=== PATIENT | male | born 1960 | race African-American/Black ===

== ENCOUNTER 2020-04-23 08:42 | Outpatient (REF) | payer MEDICAID, SELFPAY | END 2020-04-23 08:43 | disposition home or self-care (01) | LOC: HO.SH 08:42 | PROVIDERS: PCP Family Medicine; Referring Provider Family Medicine; Visit Provider Family Medicine | DX: Z13.89 Encounter for screening for other disorder (principal) ==

== ENCOUNTER 2020-07-01 10:00 | Outpatient (RCR) | payer MEDICAID, SELFPAY | END 2020-08-08 11:23 | disposition other institution (70) | LOC: HO.SH 10:00 | PROVIDERS: Visit Provider Family Medicine | DX: F80.81 Childhood onset fluency disorder (principal) | CPT/HCPCS: 92523 ==

== ENCOUNTER 2020-07-21 09:42 | Outpatient (REF) | payer MEDICAID, SELFPAY | END 2020-07-21 09:43 | disposition home or self-care (01) | LOC: HO.LAB 09:42 | PROVIDERS: PCP Family Medicine; Visit Provider Internal Medicine | DX: Z20.822 Contact with and (suspected) exposure to COVID-19 (principal) | CPT/HCPCS: 36415; 83013; C9803; U0003; U0005 ==

== ENCOUNTER 2020-12-09 11:03 | Outpatient (REF) | payer MEDICAID, SELFPAY ==
--- NOTE | ~2020-12-09 | XR_ITS ---
EXAMINATION: XR LUMBOSACRAL SPINE CLINICAL INFORMATION: Lower back pain. COMPARISON: CT abdomen/pelvis dated 01/02/2017. TECHNIQUE: Three views of the lumbosacral spine. FINDINGS: Normal vertebral body alignment. The lumbar lordosis is maintained. No acute fracture or subluxation. Minimal loss of intervertebral disc height with tiny endplate osteophytes at L4-S1 as well as bilateral facet arthropathy at L4-L5 and L5-S1, slightly progressed when compared to the prior CT. No lytic or blastic osseous lesion. Atherosclerotic calcifications. XR/XR lumbar spine 2-3V IMPRESSION: Mild degenerative disc disease at L2-S1 and bilateral facet arthropathy at L4-S1, slightly progressed when compared to the CT from 2017.
== END 2020-12-09 11:04 | disposition home or self-care (01) ==
LOC: HO.XRAY 11:03
PROVIDERS: PCP Family Medicine; Visit Provider Family Medicine
DX: M54.5 Low back pain (principal)
CPT/HCPCS: 72100

== ENCOUNTER 2021-04-14 11:45 | Outpatient (REF) | payer MEDICAID, SELFPAY | END 2021-04-14 11:46 | disposition home or self-care (01) | LOC: HO.LAB 11:45 | PROVIDERS: PCP Family Medicine; Visit Provider Internal Medicine | DX: Z20.822 Contact with and (suspected) exposure to COVID-19 (principal) | CPT/HCPCS: C9803; U0003; U0005 ==

== ENCOUNTER 2021-05-15 10:24 | Outpatient (REF) | payer MEDICAID, SELFPAY | END 2021-05-15 10:25 | disposition home or self-care (01) | LOC: HO.LAB 10:24 | PROVIDERS: Visit Provider Internal Medicine | DX: Z20.822 Contact with and (suspected) exposure to COVID-19 (principal) | CPT/HCPCS: C9803; U0003; U0005 ==

== ENCOUNTER 2021-07-30 11:48 | Outpatient (REF) | payer MEDICAID, SELFPAY ==
[2021-07-30 12:05] LABS: MANUAL DIFF FLAG NO
[2021-07-30 12:33] LABS: Appearance Urine CLEAR; Color Urine YELLOW; Glucose Urine UA 250 MG/DL (NEG); Leukocyte Esterase Urine NEG (NEG); Nitrite Urine NEG (NEG); PH 5.5 (5.0-8.0); Urine Blood 1+ (NEG); Urine Ketones NEG (NEG); Urine Protein 3+ MG/DL (NEG-TRACE)
[2021-07-30 12:38] LABS: Basophils Percent Auto 0.4 % (0-2); Eosinophils Absolute Auto 0.2 X10*3/uL (0.0-0.4); Eosinophils Percent Auto 2.4 % (0-4); Hematocrit 31.6 % (42.0-52.0); Hemoglobin 10.9 g/dl (14.0-18.0); Imm Gran Abs Auto 0.03 X10*3/uL (0.00-0.03); Imm Gran Pct Auto 0.4 % (0.0-0.4); Lymphocytes Absolute Auto 1.7 X10*3/uL (1.2-4.9); Mean Corpuscular HGB Conc 34.5 g/dl (31.0-36.0); Mean Corpuscular Hemoglobin 31.4 pg (27.0-33.0); Mean Corpuscular Volume 91.1 fL (80.0-98.0); Mean Platelet Volume 11.2 fL (9.4-12.4); Monocytes Absolute Auto 0.5 X10*3/uL (0.1-1.2); Monocytes Percent Auto 7.5 % (2-11); Neutrophils Absolute Auto 4.6 x10*3/uL (2.0-8.3); Neutrophils Percent Auto 65.3 % (45-73); Platelet Count 193 X10*3/uL (160-400); Red Blood Count 3.47 X10*6/uL (4.60-5.80); Red Cell Distribution Width 12.7 % (11.0-16.0)
[2021-07-30 12:50] LABS: Estimated Average Glucose 169 mg/dL; Hemoglobin A1c % 7.5 %
[2021-07-30 12:58] LABS: Amorphous Sediment Urine 2+ /LPF; Squamous Epithelial Cell Urine 1+ /LPF
[2021-07-30 13:00] LABS: Anion Gap 11 (12-20); Blood Urea Nitrogen 22 mg/dL (9-16); Calcium 8.8 mg/dL (8.4-10.2); Carbon Dioxide 23 mmol/L (22-29); Chloride 109 mmol/L (96-108); Estimated Glomerular Filt Rate 27; Iron 88 mcg/dL (45-160); Percent Iron Saturation 30 % (15-50); Potassium 3.9 mmol/L (3.3-5.1); Sodium 139 mmol/L (135-145); Total Iron Binding Capacity 289 mcg/dL (228-428); Unsaturated Iron Binding 201 ug/dL
[2021-07-30 13:16] LABS: Creatinine Urine 89.88 mg/dL
[2021-07-30 14:03] LABS: Protein/Creatinine Ratio, Ur 7.91 (<0.2); Total Protein Urine Random 711 mg/dL (<12)
[2021-07-31 13:51] LABS: Calcium (PTHI) 8.8 mg/dL (8.6-10.3); PTHI 45 pg/mL (14-64)
== END 2021-07-30 11:49 | disposition home or self-care (01) ==
LOC: HO.LAB 11:48
PROVIDERS: PCP Family Medicine; Visit Provider Internal Medicine Nephrology
DX: E11.22 Type 2 diabetes mellitus with diabetic chronic kidney disease (principal); N18.31 Chronic kidney disease, stage 3a
CPT/HCPCS: 36415; 80051; 81001; 82306; 82310; 82565; 83036; 83540; 83970; 84156; 84520; 85025

== ENCOUNTER 2021-09-01 00:59 | Emergency (ER) | payer MEDICAID, SELFPAY ==
[2021-09-01 02:26] VITALS: BP 119/81; PULSE 75; RESP 18; TEMP 36.6; O2SAT 100; BMI 33.6
== END 2021-09-01 02:37 | disposition left against medical advice (07) ==
PROVIDERS: Emergency Provider Emergency Medicine
DX: R07.9 Chest pain, unspecified (principal)
CPT/HCPCS: 99281; 99282

== ENCOUNTER 2021-09-01 13:54 | Emergency (ER) | payer MEDICAID, SELFPAY ==
--- NOTE | ~2021-09-01 | XR_ITS ---
EXAMINATION: XR CHEST CLINICAL INFORMATION: Chest pain COMPARISON: Chest 07/24/2015 TECHNIQUE: 2 views of the chest were obtained. FINDINGS: The lungs are well-expanded and clear acute pneumonic process. The heart size and pulmonary vascularity is normal. There is mild spondylosis dorsal spine. XR/XR chest 2V IMPRESSION: No acute cardiopulmonary process seen.
--- NOTE | ~2021-09-01 | CT_ITS ---
EXAMINATION: CT ABDOMEN AND PELVIS WITHOUT CONTRAST CLINICAL INFORMATION: 60-year-old male with epigastric pain COMPARISON: CT abdomen pelvis 07/07/2016 TECHNIQUE: Multidetector volumetric imaging was performed from the superior aspect of the liver through the pubic symphysis. Sagittal and coronal reformatted images were obtained on the technologist's workstation. This CT examination was performed using dose optimization techniques as appropriate, variously including the following: *Automated exposure control *Adjustment of mA and/or kV according to patient size (this includes techniques or standardized protocols for targeted exams where dose is matched to indication/reason for exam; i.e. extremities or head) *Use of iterative reconstruction technique DLP: 651 mGy-cm FINDINGS: Visualized lung bases are well aerated. Coronary artery calcifications are partially visualized. The liver is enlarged and demonstrates diffusely decreased attenuation. Numerous gallstones are present within an otherwise unremarkable appearing gallbladder. Similar mild prominence of the pancreatic head without focal mass. The spleen remains mildly enlarged measuring 14.5 cm in maximum AP dimension. Adrenal glands are unremarkable. Symmetrically sized kidneys. Interval development of a heterogeneous but overall hypodense lesion within the lower pole of the right kidney which measures approximately 5.8 cm (best appreciated on coronal image 55/1 5, series 3). No renal calculi or hydronephrosis of either kidney. There is prominent bilateral perinephric stranding again noted. The stomach is decompressed. Normal caliber loops of small and large bowel. Normal caliber abdominal aorta which demonstrates mild to moderate atherosclerotic disease. A few similar appearing mildly prominent retroperitoneal lymph nodes are again identified and appear stable. The bladder is normally distended. There is mild diffuse bladder wall thickening. The prostate gland is enlarged measuring approximately 5.9 cm in maximum transverse dimension. Moderate sized fat-containing inguinal hernias noted bilaterally. There is no gross free pelvic fluid. Similar shotty bilateral inguinal lymph nodes. Mild degenerative changes of the spine. A few subcentimeter sclerotic foci throughout the pelvis appear stable and likely represent bone islands. CT/CT abdomen pelvis wo con IMPRESSION: 1. Interval development of an approximately 5.8 cm heterogeneous lesion within the lower pole of the right kidney. Renal ultrasound may provide additional diagnostic information, however, ultimately renal protocol MRI may be required for more definitive characterization. Neoplasm is within the differential. 2. Cholelithiasis. 3. Hepatomegaly with diffusely decreased attenuation of the liver suggesting hepatic steatosis. 4. Splenomegaly. 5. Mild diffuse bladder wall thickening in this setting of enlarged prostate gland suggests bladder outlet obstruction. Fleischner guidelines were followed.
[2021-09-01 14:13] VITALS: BP 152/78; PULSE 69; RESP 18; TEMP 37.1; O2SAT 99; BMI 33.6
--- NOTE | 2021-09-01 14:17 | ECG_ITS ---
Test Reason : chest pain Blood Pressure : / mmHG Vent. Rate : 069 BPM Atrial Rate : 069 BPM P-R Int : 214 ms QRS Dur : 092 ms QT Int : 404 ms P-R-T Axes : 032 039 089 degrees QTc Int : 432 ms Sinus rhythm with 1st degree A-V block Otherwise normal ECG When compared with ECG of 11-OCT-2016 12:57, CT interval has increased T wave inversion now evident in Lateral leads Referred By: Generic ED Physician Electronically Signed By:YENY BERMUDEZ MD
[2021-09-01 14:41] LABS: MANUAL DIFF FLAG NO
[2021-09-01 14:42] LABS: Basophils Percent Auto 0.4 % (0-2); Eosinophils Absolute Auto 0.2 X10*3/uL (0.0-0.4); Eosinophils Percent Auto 2.4 % (0-4); Hematocrit 31.7 % (42.0-52.0); Hemoglobin 10.7 g/dl (14.0-18.0); Imm Gran Abs Auto 0.02 X10*3/uL (0.00-0.03); Imm Gran Pct Auto 0.3 % (0.0-0.4); Lymphocytes Absolute Auto 1.2 X10*3/uL (1.2-4.9); Lymphocytes Percent Auto 15.6 % (20-40); Mean Corpuscular HGB Conc 33.8 g/dl (31.0-36.0); Mean Corpuscular Hemoglobin 30.9 pg (27.0-33.0); Mean Corpuscular Volume 91.6 fL (80.0-98.0); Mean Platelet Volume 10.8 fL (9.4-12.4); Monocytes Absolute Auto 0.7 X10*3/uL (0.1-1.2); Neutrophils Absolute Auto 5.5 x10*3/uL (2.0-8.3); Neutrophils Percent Auto 72.3 % (45-73); Platelet Count 163 X10*3/uL (160-400); Red Blood Count 3.46 X10*6/uL (4.60-5.80); Red Cell Distribution Width 13.1 % (11.0-16.0); White Blood Count 7.6 X10*3/uL (4.8-10.8)
[2021-09-01 15:03] LABS: Alanine Aminotransferase 17 U/L (0-40); Albumin Level 3.2 g/dL (3.5-5.0); Alkaline Phosphatase 60 U/L (39-117); Anion Gap 11 (12-20); Aspartate Amino Transferase 15 U/L (5-37); Bilirubin Total 0.5 mg/dL (0.0-1.0); Blood Urea Nitrogen 21 mg/dL (9-16); Calcium 8.7 mg/dL (8.4-10.2); Carbon Dioxide 26 mmol/L (22-29); Chloride 107 mmol/L (96-108); Creatinine Clr Calc Pharmacy 29.2; Estimated Glomerular Filt Rate 24; Glucose Random 255 mg/dL (60-115); Potassium 4.5 mmol/L (3.3-5.1); Sodium 139 mmol/L (135-145); Total Protein 5.9 g/dL (6.5-8.0)
--- NOTE | 2021-09-01 16:34 | ED.CHESTPAIN ---
HPI - Chest Pain General Chief Complaint: Chest Pain Stated Complaint: diff. breathing/chest pains Time Seen by Provider: 09/01/21 16:34 Source: patient Mode of arrival: ambulatory Limitations: no limitations History of Present Illness HPI narrative: 60 years old male with history of chronic renal disease, hypertension, diabetes, remote history of sternal fracture no history of GERD or coronary disease complaining of pain in the epigastric area for last 3 days no relation with the food no left-sided chest pain no radiation of the pain to the back no shortness of breath no cough patient does not feel hungry Related Data Allergies Allergy/AdvReac Type Severity Reaction Status Date / Time No Known Allergies Allergy Verified 09/01/21 14:13 Review of Systems Review of Systems: Yes all other systems are reviewed and are negative [facility]LY [facility] Social History Social History Alcohol intake: current Alcohol intake frequency: 3 or more drinks per day Alcohol type: beer Patient Tobacco Use Status: Never used Tobacco Use of substances other than those prescribed or required for medical reasons: No Advance Directives: No Advance Directives Information Provided: No Physical Exam Vital Signs: Vital Signs: Last Vital Signs Temp 98.8 F 09/01/21 14:13 Pulse 65 09/01/21 17:16 Resp 18 09/01/21 17:16 BP 139/67 09/01/21 17:16 Pulse Ox 99 09/01/21 17:16 BMI result Body Mass Index 33.6 Appearance: Alert. Oriented X3. No acute distress. Eyes: No pallor or icterus ENT: Pharynx normal. Oral Mucosa moist Neck: Normal inspection. Neck supple. CVS: Normal heart rate and rhythm. Pulses normal. Respiratory: No respiratory distress. Equal air entry bilateral, no wheezing/rales/rhonchi Abdomen: Soft , tenderness in epigastric area no rebound tenderness or guarding Bowel sounds are present, no mass palpable, no CVA tenderness Skin: Skin warm and dry. Normal skin color. Normal skin turgor. Extremities: No lower extremity edema. No calf tenderness Neuro: Oriented X 3. No motor deficit. MDM - Chest Pain MDM Narrative Medical decision making narrative: Patient nonspecific epigastric pain slightly elevated lipase CT scan negative for any inflammation of the pancreas patient denies any nausea or vomiting also patient has gallstones and a mass was seen 5.8 cm and right kidney patient advised to follow-up with PCP for further evaluation Lab Data Attestation: I reviewed the patient's lab results. Result diagrams: 09/01/21 14:35 09/01/21 14:35 Labs: Lab Results 09/01/21 09/01/21 09/01/21 Range/Units 14:35 14:35 14:35 WBC 7.6 (4.8-10.8) X10*3/uL RBC 3.46 L (4.60-5.80) X10*6/uL Hgb 10.7 L (14.0-18.0) g/dl Hct 31.7 L (42.0-52.0) % MCV 91.6 (80.0-98.0) fL MCH 30.9 (27.0-33.0) pg MCHC 33.8 (31.0-36.0) g/dl RDW 13.1 (11.0-16.0) % Plt Count 163 (160-400) X10*3/uL MPV 10.8 (9.4-12.4) fL Immature Gran % (Auto) 0.3 (0.0-0.4) % Neut % (Auto) 72.3 (45-73) % Lymph % (Auto) 15.6 L (20-40) % [place] % (Auto) 9.0 (2-11) % Eos % (Auto) 2.4 (0-4) % Baso % (Auto) 0.4 (0-2) % Lymph # (Auto) 1.2 (1.2-4.9) X10*3/uL [place] # (Auto) 0.7 (0.1-1.2) X10*3/uL Eos # (Auto) 0.2 (0.0-0.4) X10*3/uL Baso # (Auto) 0.0 (0.0-0.2) X10*3/uL Abs Immat Gran (auto) 0.02 (0.00-0.03) X10*3/uL Absolute Neuts (auto) 5.5 (2.0-8.3) x10*3/uL Absolute Nucleated RBC 0.000 (0.0-0.012) X10*3/uL Nucleated RBC % (auto) 0.0 (0.0-0.2) /100WBC Sodium 139 (135-145) mmol/L Potassium 4.5 (3.3-5.1) mmol/L Chloride 107 (96-108) mmol/L Carbon Dioxide 26 (22-29) mmol/L Anion Gap 11 L (12-20) BUN 21 H (9-16) mg/dL Creatinine 2.76 H (0.5-1.4) mg/dL Estim Creat Clear Calc 29.2 Estimated GFR 24 POC Glucose (60-115) mg/dL Random Glucose 255 H (60-115) mg/dL Calcium 8.7 (8.4-10.2) mg/dL Total Bilirubin 0.5 (0.0-1.0) mg/dL AST 15 (5-37) U/L ALT 17 (0-40) U/L Alkaline Phosphatase 60 (39-117) U/L Troponin I High Sens 11.0 (<3.5-35.0) ng/L Total Protein 5.9 L (6.5-8.0) g/dL Albumin 3.2 L (3.5-5.0) g/dL Lipase 79 H (8-78) U/L 09/01/21 Range/Units 17:29 WBC (4.8-10.8) X10*3/uL RBC (4.60-5.80) X10*6/uL Hgb (14.0-18.0) g/dl Hct (42.0-52.0) % MCV (80.0-98.0) fL MCH (27.0-33.0) pg MCHC (31.0-36.0) g/dl RDW (11.0-16.0) % Plt Count (160-400) X10*3/uL MPV (9.4-12.4) fL Immature Gran % (Auto) (0.0-0.4) % Neut % (Auto) (45-73) % Lymph % (Auto) (20-40) % [place] % (Auto) (2-11) % Eos % (Auto) (0-4) % Baso % (Auto) (0-2) % Lymph # (Auto) (1.2-4.9) X10*3/uL [place] # (Auto) (0.1-1.2) X10*3/uL Eos # (Auto) (0.0-0.4) X10*3/uL Baso # (Auto) (0.0-0.2) X10*3/uL Abs Immat Gran (auto) (0.00-0.03) X10*3/uL Absolute Neuts (auto) (2.0-8.3) x10*3/uL Absolute Nucleated RBC (0.0-0.012) X10*3/uL Nucleated RBC % (auto) (0.0-0.2) /100WBC Sodium (135-145) mmol/L Potassium (3.3-5.1) mmol/L Chloride (96-108) mmol/L Carbon Dioxide (22-29) mmol/L Anion Gap (12-20) BUN (9-16) mg/dL Creatinine (0.5-1.4) mg/dL Estim Creat Clear Calc Estimated GFR POC Glucose 324 H (60-115) mg/dL Random Glucose (60-115) mg/dL Calcium (8.4-10.2) mg/dL Total Bilirubin (0.0-1.0) mg/dL AST (5-37) U/L ALT (0-40) U/L Alkaline Phosphatase (39-117) U/L Troponin I High Sens (<3.5-35.0) ng/L Total Protein (6.5-8.0) g/dL Albumin (3.5-5.0) g/dL Lipase (8-78) U/L ECG Data ECG #1: Attestation: I personally reviewed and interpreted this ECG as follows: Interpretation: Normal sinus rhythm heart rate 69 beats per minute normal interval normal axis no acute ST T wave acute ischemia Discharge Plan Discharge Clinical Impression: Abdominal pain Patient Disposition: Home, Self-Care Instructions: Abdominal Pain (ED) Additional Instructions: Etiology of your pain is not very clear you have gallstones and a mass in the right kidney possible mild pancreatitis Drink plenty of fluids avoid fried food Increased dose of Prilosec to 40 mg daily Follow-up with PCP for further evaluation including evaluation for the mass on the right kidney Interventions: ED Discharge Assessment Last Done: 09/01/21 18:50 Discharge Date/Time: 09/01/21 18:55
[2021-09-01 17:04] LABS: Lipase 79 U/L (8-78)
[2021-09-01 17:16] VITALS: BP 139/67; PULSE 65; RESP 18; O2SAT 99
--- NOTE | 2021-09-01 17:18 | PC.NURSE ---
patient a&ox3, evaluation specialist nsr 60s-70s, vss, pt c/o 03/08 mid abd pain, pt awaiting ct scan, labs previously drawn, call pang within reach, will continue to monitor.
[2021-09-01 17:32] LABS: Glucose, Whole Blood 324 mg/dL (60-115)
[2021-09-01] MEDS: Insulin Lispro 100 UNIT/ML 3 ML VIAL 8 UNIT SUBCUT (18:51)
[2021-09-01] MEDS: Omeprazole 40 MG CAPSULE.DR PO (18:51)
[2021-09-01] MEDS: Magnesium Hydrox/Alum Hydrox 30 ML ORAL.SUSP PO (18:51)
== END 2021-09-01 18:55 | disposition home or self-care (01) ==
PROVIDERS: Emergency Provider Internal Medicine; PCP Family Medicine
DX: R10.13 Epigastric pain (principal); R93.5 Abnormal findings on diagnostic imaging of other abdominal regions, including retroperitoneum; I10 Essential (primary) hypertension; E11.9 Type 2 diabetes mellitus without complications
CPT/HCPCS: 36415; 71046; 74176; 80053; 82947; 83690; 84484; 85025; 93005; 99284

== ENCOUNTER 2021-11-24 23:35 | Inpatient (IN) | payer MEDICAID, SELFPAY ==
--- NOTE | ~2021-11-24 | US_ITS ---
EXAMINATION: US RETROPERITONEAL LIMITED (RENAL ONLY) CLINICAL INFORMATION: Acute renal insufficiency. COMPARISON: 09/01/2021 CT scan TECHNIQUE: Multiple sonographic views of the left kidney obtained. FINDINGS: RIGHT KIDNEY: Surgically absent. LEFT KIDNEY: 14.2 x 6.0 x 6.1 cm (SAG x AP x TRV). The kidney is normal in size, contour, and echogenicity. Renal cortical thickness is normal. No calculi or focal parenchymal lesions. There is mild left-sided hydronephrosis. A left-sided ureteric jet is seen in the otherwise unremarkable bladder. Small amount of ascites seen in the right upper quadrant. US/US renal BI IMPRESSION: Right kidney surgically absent. Mild left-sided hydronephrosis of uncertain etiology with a left ureteric jet seen in the visualized bladder.
--- NOTE | ~2021-11-24 | XR_ITS ---
EXAMINATION: XR CHEST CLINICAL INFORMATION: SOB COMPARISON: None TECHNIQUE: 2 views of the chest were obtained. FINDINGS: The lungs are well-expanded with platelike atelectasis in the lingula. Rest lungs are clear. Heart size and pulmonary vascularity is normal. There is moderate spondylosis dorsal spine. No lytic process. XR/XR chest 2V IMPRESSION: Platelike atelectasis in the lingula.
--- NOTE | ~2021-11-24 | NM_ITS ---
EXAMINATION: NM LUNG IMAGE PERFUSION CLINICAL INFORMATION: Elevated d-dimer. Chest pain and SOB COMPARISON: None TECHNIQUE: 4 mCi of 99m Tc MAA was administered intravenously and imaging of both lungs were obtained in multiple projections.. Ventilation study was not performed FINDINGS: There is normal perfusion seen to all segments of the lungs without focal defect segmental or subsegmental defect. Ventilation study was not performed. NM/NM pul perfusion IMPRESSION: Normal perfusion scan. No suspicion for pulmonary emboli.
[2021-11-24 23:42] VITALS: BP 154/76; PULSE 77; O2SAT 97
[2021-11-24 23:45] VITALS: BP 146/70; PULSE 72; RESP 18; TEMP 37; O2SAT 96; BMI 32.3
--- NOTE | 2021-11-24 23:57 | ED_ITS ---
HPI - Chest Pain General Chief Complaint: Chest Pain Stated Complaint: CP Time Seen by Provider: 11/24/21 23:57 Source: patient Mode of arrival: EMS Limitations: no limitations History of Present Illness HPI narrative: patient had chest pain while watching TV. patient has a history of cancer of the kidney. Patient states since having surgery to remove the kidney he has suffered everyday from chest pain. patient improved with ASA and NTG in the ambulace. MD complaint: chest pain Onset (ago): month(s) Timing of current episode: constant Prior episodes: Yes Onset: during rest Pain radiation: none Severity: mild Quality: aching Relieving factors: nothing Treatment prior to arrival: aspirin and nitroglycerin Related Data Home Medications Medication Instructions Recorded Confirmed albuterol sulfate 90 mcg/actuation 2 puff PO Q4-6H PRN Shortness Of 11/25/21 11/25/21 aerosol inhaler (ProAir HFA) Breath alcohol swabs (Alcohol Prep Pads) 1 pad topical TID 11/25/21 11/25/21 aspirin 25 mg-dipyridamole 200 mg 1 cap PO BID 11/25/21 11/25/21 capsule,ext.release 12 hr multiphase blood sugar diagnostic (FreeStyle 11/25/21 11/25/21 Lite Strips) carvedilol 12.5 mg tablet 1 tab PO DAILY 11/25/21 11/25/21 clonazepam 1 mg tablet 1 tab PO BID 11/25/21 11/25/21 clotrimazole 1 % topical cream 1 appl topical BID 11/25/21 11/25/21 cyanocobalamin (vitamin B-12) 1 tab PO QAM 11/25/21 11/25/21 1,000 mcg tablet diclofenac sodium 1 % topical gel 2 g topical BID PRN pain 11/25/21 11/25/21 diltiazem HCl 300 mg 1 cap PO QAM 11/25/21 11/25/21 capsule,extended release 24 hr (Cartia XT) ergocalciferol (vitamin D2) 1,250 1 cap PO QWEEK 11/25/21 11/25/21 mcg (50,000 unit) capsule ferrous fumarate 324 mg (106 mg 1 tab PO DAILY 11/25/21 11/25/21 iron) tablet furosemide 40 mg tablet 1 tab PO QAM 11/25/21 11/25/21 glipizide 10 mg tablet 1 tab PO BID 11/25/21 11/25/21 hydralazine 25 mg tablet 3 tab PO TID 11/25/21 11/25/21 insulin glargine 100 unit/mL (3 15 unit subcut DAILY 11/25/21 11/25/21 mL) subcutaneous pen (Lantus Solostar U-100 Insulin) ipratropium bromide 21 mcg (0.03 2 spray intranasal TID 11/25/21 11/25/21 %) nasal spray levothyroxine 112 mcg tablet 1 tab PO QAM 11/25/21 11/25/21 lisinopril 40 mg tablet 1 tab PO QPM 11/25/21 11/25/21 omega-3 acid ethyl esters 1 gram 2 cap PO BID 11/25/21 11/25/21 capsule omeprazole 40 mg capsule,delayed 1 cap PO BID 11/25/21 11/25/21 release oxycodone-acetaminophen 10 mg-325 1 tab PO Q4H PRN severe pain 11/25/21 11/25/21 mg tablet pen needle, diabetic 32 gauge x 11/25/21 11/25/21 5/32 (Pentips) rosuvastatin 10 mg tablet 1 tab PO BEDTIME 11/25/21 11/25/21 sodium bicarbonate 650 mg tablet 2 tab PO BID 11/25/21 11/25/21 sodium zirconium cyclosilicate 5 1 packet PO DAILY 11/25/21 11/25/21 gram oral powder packet (Lokelma) tamsulosin 0.4 mg capsule 1 cap PO QPM 11/25/21 11/25/21 zolpidem 10 mg tablet 1 tab PO BEDTIME 11/25/21 11/25/21 Allergies Allergy/AdvReac Type Severity Reaction Status Date / Time No Known Allergies Allergy Verified 09/01/21 14:13 Review of Systems Constitutional: Constitutional: Reports no additional constitutional complaints Eyes: Eyes: Reports no additional eye complaints ENT: Denies dizziness Cardiovascular: Cardiovascular: Reports no additional cardiovascular complaints Respiratory: Respiratory: Reports as per HPI Gastrointestinal: Gastrointestinal: Reports no additional gastrointestinal complaints Musculoskeletal: Musculoskeletal: Reports no additional musculoskeletal complaints Integumentary/Breasts: Skin/Breast: Denies rash Neurologic: Reports system reviewed and no additional complaints, except as documented, Denies dizziness and Denies Sensory deficit (Neuro) Psychiatric: Psychiatric: Denies anxiety [facility] Past Medical History Medical History (Updated 11/25/21 @ 07:12 by Silvia Freitas MD) CAD (coronary artery disease) CKD (chronic kidney disease) CVA (cerebral vascular accident) Diabetes Hypertension Surgical History (Updated 11/25/21 @ 07:11 by Silvia Freitas MD) History of nephrectomy Family History Family History (Updated 11/25/21 @ 07:11 by Silvia Freitas MD) Other No family history of coronary artery disease Social History Social History Alcohol intake: never Patient Tobacco Use Status: Never used Tobacco Use of substances other than those prescribed or required for medical reasons: No Advance Directives: No Advance Directives Information Provided: Yes Physical Exam Vital Signs: Vital Signs: Last Vital Signs Temp 98.6 F 11/24/21 23:45 Pulse 72 11/24/21 23:45 Resp 18 11/24/21 23:45 BP 146/70 H 11/24/21 23:45 Pulse Ox 96 11/24/21 23:45 O2 Del Method 11/24/21 23:45 BMI result Body Mass Index 32.3 Const: Other: chronically ill female Nutritional Appearance: obese O rientation/consciousness: oriented to person and patient oriented x3 Limi tations: no limitations HEENT: Head: Yes normal to inspection Ears: external ears normal General nose exam: Normal external nose present Mouth: Normal oral and palatal mucosa present and oropharynx normal Throat: Yes posterior oropharynx normal Eyes: General: appearance normal, both eyes and all related structures Neck: Other: supple Neck: Yes normal visual inspection Chest: Chest palpation & inspection: normal inspection of the chest Resp: Auscultation: clear to auscultation bilaterally Cardio: Jugular venous distension: no JVD Rate: regular rate Rhythm: regular rhythm Heart sounds: S1 normal heart sound present and S2 normal heart sound present GI: Other: healing abdominal wound Palpation (GI): Soft to palpation, nontender and No hepatosplenomegaly present Auscultation: normal bowel sounds : General: Yes no CVA tenderness Back/Spine/Pelvis: Back: no CVA tenderness Skin: General skin exam: no rashes or lesions noted Neuro: General: oriented to person and patient oriented x3 Cranial nerves: Yes CN's II-XII intact bilaterally Motor exam (neuro): 5/5 motor strength present throughout Sensory Exam: No Sensory deficit (Neuro) Extrem: General: Yes normal to inspection Psych: Appearance: grossly normal Course Reevaluation(s) Reevaluation #1: patient with renal failure, worsening anemia, and a positive ddimer. Despite flipped twaves laterally with ST depressions patients troponins are negative Time: 04:41 MDM - Chest Pain Lab Data Result diagrams: 11/25/21 00:23 11/25/21 00:23 Labs: Lab Results 11/25/21 11/25/21 11/25/21 Range/Units 00:23 00:23 00:23 WBC 9.3 (4.8-10.8) X10*3/uL RBC 2.84 L (4.60-5.80) X10*6/uL Hgb 8.2 L D (14.0-18.0) g/dl Hct 24.7 L D (42.0-52.0) % MCV 87.0 (80.0-98.0) fL MCH 28.9 (27.0-33.0) pg MCHC 33.2 (31.0-36.0) g/dl RDW 12.9 (11.0-16.0) % Plt Count 189 (160-400) X10*3/uL MPV 11.0 (9.4-12.4) fL Immature Gran % (Auto) 0.3 (0.0-0.4) % Neut % (Auto) 72.2 (45-73) % Lymph % (Auto) 15.1 L (20-40) % [place] % (Auto) 10.1 (2-11) % Eos % (Auto) 2.1 (0-4) % Baso % (Auto) 0.2 (0-2) % Lymph # (Auto) 1.4 (1.2-4.9) X10*3/uL [place] # (Auto) 0.9 (0.1-1.2) X10*3/uL Eos # (Auto) 0.2 (0.0-0.4) X10*3/uL Baso # (Auto) 0.0 (0.0-0.2) X10*3/uL Abs Immat Gran (auto) 0.03 (0.00-0.03) X10*3/uL Absolute Neuts (auto) 6.7 (2.0-8.3) x10*3/uL Absolute Nucleated RBC 0.000 (0.0-0.012) X10*3/uL Nucleated RBC % (auto) 0.0 (0.0-0.2) /100WBC D-Dimer High Sensitivty NG/ML Sodium 140 (135-145) mmol/L Potassium 3.9 (3.3-5.1) mmol/L Chloride 110 H (96-108) mmol/L Carbon Dioxide 20 L (22-29) mmol/L Anion Gap 14 (12-20) BUN 59 H D (9-16) mg/dL Creatinine 7.95 H* (0.5-1.4) mg/dL Estim Creat Clear Calc 10.1 Estimated GFR 7 Random Glucose 142 H D (60-115) mg/dL Calcium 8.2 L (8.4-10.2) mg/dL Total Bilirubin 0.3 (0.0-1.0) mg/dL Direct Bilirubin 0.2 (0.0-0.5) mg/dL AST 10 (5-37) U/L ALT 11 (0-40) U/L Alkaline Phosphatase 79 D (39-117) U/L Troponin I High Sens 34.3 D (<3.5-35.0) ng/L Total Protein 5.7 L (6.5-8.0) g/dL Albumin 3.0 L (3.5-5.0) g/dL Lipase 41 (8-78) U/L COVID-19 ([facility]) (Negative) COVID-19 Clin Com 11/25/21 11/25/21 11/25/21 Range/Units 00:24 02:11 05:39 WBC (4.8-10.8) X10*3/uL RBC (4.60-5.80) X10*6/uL Hgb (14.0-18.0) g/dl Hct (42.0-52.0) % MCV (80.0-98.0) fL MCH (27.0-33.0) pg MCHC (31.0-36.0) g/dl RDW (11.0-16.0) % Plt Count (160-400) X10*3/uL MPV (9.4-12.4) fL Immature Gran % (Auto) (0.0-0.4) % Neut % (Auto) (45-73) % Lymph % (Auto) (20-40) % [place] % (Auto) (2-11) % Eos % (Auto) (0-4) % Baso % (Auto) (0-2) % Lymph # (Auto) (1.2-4.9) X10*3/uL [place] # (Auto) (0.1-1.2) X10*3/uL Eos # (Auto) (0.0-0.4) X10*3/uL Baso # (Auto) (0.0-0.2) X10*3/uL Abs Immat Gran (auto) (0.00-0.03) X10*3/uL Absolute Neuts (auto) (2.0-8.3) x10*3/uL Absolute Nucleated RBC (0.0-0.012) X10*3/uL Nucleated RBC % (auto) (0.0-0.2) /100WBC D-Dimer High Sensitivty 749 NG/ML Sodium (135-145) mmol/L Potassium (3.3-5.1) mmol/L Chloride (96-108) mmol/L Carbon Dioxide (22-29) mmol/L Anion Gap (12-20) BUN (9-16) mg/dL Creatinine (0.5-1.4) mg/dL Estim Creat Clear Calc Estimated GFR Random Glucose (60-115) mg/dL Calcium (8.4-10.2) mg/dL Total Bilirubin (0.0-1.0) mg/dL Direct Bilirubin (0.0-0.5) mg/dL AST (5-37) U/L ALT (0-40) U/L Alkaline Phosphatase (39-117) U/L Troponin I High Sens 32.0 (<3.5-35.0) ng/L Total Protein (6.5-8.0) g/dL Albumin (3.5-5.0) g/dL Lipase (8-78) U/L COVID-19 ([facility]) Negative (Negative) COVID-19 Clin Com See Note ECG Data ECG #1: Attestation: I personally reviewed and interpreted this ECG as follows: Interpretation: sinus 70, lateral flipped ts I and AVL and V5-V6 Critical Care Time Critical Care Time Attestation: I spent 40 minutes of critical care, with interventions, assessments, speaking to patient, consultants, and family. Discharge Plan Discharge Clinical Impression: Chest pain, Acute renal failure, Anemia Patient Disposition: Admitted As Inpatient
--- NOTE | 2021-11-25 00:06 | ECG_ITS ---
Test Reason : CHEST PAIN Blood Pressure : / mmHG Vent. Rate : 068 BPM Atrial Rate : 068 BPM P-R Int : 216 ms QRS Dur : 086 ms QT Int : 442 ms P-R-T Axes : 036 037 121 degrees QTc Int : 469 ms Sinus rhythm with 1st degree A-V block Septal infarct , age undetermined ST & T wave abnormality, consider lateral ischemia Abnormal ECG When compared with ECG of 01-SEP-2021 14:22, Septal infarct is now Present T wave inversion more evident in Lateral leads Referred By: Yrn Acuña Electronically Signed By:BAY POSADAS
[2021-11-25 00:33] LABS: Basophils Percent Auto 0.2 % (0-2); Eosinophils Absolute Auto 0.2 X10*3/uL (0.0-0.4); Eosinophils Percent Auto 2.1 % (0-4); Hematocrit 24.7 % (42.0-52.0); Hemoglobin 8.2 g/dl (14.0-18.0); Imm Gran Abs Auto 0.03 X10*3/uL (0.00-0.03); Imm Gran Pct Auto 0.3 % (0.0-0.4); Lymphocytes Absolute Auto 1.4 X10*3/uL (1.2-4.9); Lymphocytes Percent Auto 15.1 % (20-40); MANUAL DIFF FLAG NO; Mean Corpuscular HGB Conc 33.2 g/dl (31.0-36.0); Mean Corpuscular Hemoglobin 28.9 pg (27.0-33.0); Monocytes Absolute Auto 0.9 X10*3/uL (0.1-1.2); Monocytes Percent Auto 10.1 % (2-11); Neutrophils Absolute Auto 6.7 x10*3/uL (2.0-8.3); Neutrophils Percent Auto 72.2 % (45-73); Platelet Count 189 X10*3/uL (160-400); Red Blood Count 2.84 X10*6/uL (4.60-5.80); Red Cell Distribution Width 12.9 % (11.0-16.0); White Blood Count 9.3 X10*3/uL (4.8-10.8)
[2021-11-25 00:47] LABS: D Dimer High Sensitivity 749 NG/ML
[2021-11-25] MEDS: Nitroglycerin 0.4 MG TAB.SUBL SUBLINGUAL (00:53)
[2021-11-25 00:54] LABS: Alanine Aminotransferase 11 U/L (0-40); Alkaline Phosphatase 79 U/L (39-117); Anion Gap 14 (12-20); Aspartate Amino Transferase 10 U/L (5-37); Bilirubin Direct 0.2 mg/dL (0.0-0.5); Bilirubin Total 0.3 mg/dL (0.0-1.0); Blood Urea Nitrogen 59 mg/dL (9-16); Calcium 8.2 mg/dL (8.4-10.2); Carbon Dioxide 20 mmol/L (22-29); Chloride 110 mmol/L (96-108); Creatinine Clr Calc Pharmacy 10.1; Estimated Glomerular Filt Rate 7; Glucose Random 142 mg/dL (60-115); Lipase 41 U/L (8-78); Potassium 3.9 mmol/L (3.3-5.1); Sodium 140 mmol/L (135-145); Total Protein 5.7 g/dL (6.5-8.0); Troponin-I High Sensitivity 34.3 ng/L (<3.5-35.0)
--- NOTE | 2021-11-25 00:54 | PC.NURSE ---
medicated w prn nitroglycerin for 7/10 chest pain.
[2021-11-25 06:04] LABS: COVID-19 Test Negative (Negative); IDNOW Serial# 08D9AD1C
[2021-11-25] MEDS: Lactated Ringers 1,000 ML 100 ML IVCONT (06:47)
--- NOTE | 2021-11-25 06:57 | PM.IMHP ---
History of Present Illness Date of Service: 11/25/21 Chief Complaint: chest pain This is a 61-year-old male with past medical history CKD pending dialysis, CVA, CAD status post NSTEMI about 2 weeks ago, history of nephrectomy on 10/24, hypertension, diabetes, presents to the hospital with complaints of chest pain. Patient reports the chest pain is epigastric, nonradiating, intermittent, sharp, 7/10, worse when he lays down and resolved spontaneously. reports the patient is planned for AV fistula placement but due to recent stroke about 2 weeks ago as well as a minor heart attack he has clearance from Cardiology Neurology before he can begin av fistula placement on dialysis. Patient otherwise denies any headache, no fever or chills, no no palpitations, no abdominal pain nausea or vomiting, no diarrhea constipation, no urinary symptoms and no lower extremity edema. Patient reports that he used to be on omeprazole 40 mg a was reduced to 20 mg recently. On arrival To the ED patient hemodynamically stable with no significant abnormal vitals Labs are significant for WBC of9.3, hemoglobin of 8.2 which is a significant drop from August which was 10.7, medical of 24.7, creatinine of 7.95 which increased from 2.76 and 4/5, BUN of 59, troponin initially 34.3 dropped to [address] T wave abnormalities with no evidence of ACS Abdominal ultrasound pending, patient will be admitted for further management Review of Systems Review of Systems: Yes all other systems are reviewed and are negative [facility] Medical History (Updated 11/25/21 @ 07:12 by Silvia Freitas MD) CAD (coronary artery disease) CKD (chronic kidney disease) CVA (cerebral vascular accident) Diabetes Hypertension Family History (Updated 11/25/21 @ 07:11 by Silvia Freitas MD) Other No family history of coronary artery disease Surgical History (Updated 11/25/21 @ 07:11 by Silvia Freitas MD) History of nephrectomy Social History Alcohol intake: never Patient Tobacco Use Status: Never used Tobacco Use of substances other than those prescribed or required for medical reasons: No Advance Directives: No Advance Directives Information Provided: Yes Meds Allergies Allergy/AdvReac Type Severity Reaction Status Date / Time No Known Allergies Allergy Verified 09/01/21 14:13 Active Medications: Current Medications Acetaminophen (Acetaminophen 325 Mg Tablet) 650 mg PO Q6H PRN PRN Reason: Pain, Mild (Pain Scale 1-3) Lactated Ringer's (Lr) 1,000 mls @ 100 mls/hr IVCONT .Q10H [facility] Last Admin: 11/25/21 06:47 Dose: 100 mls/hr Nitroglycerin (Nitroglycerin 0.4 Mg Tab.Subl) 0.4 mg SUBLINGUAL Q5MX3 PRN PRN Reason: Chest Pain Last Admin: 11/25/21 00:53 Dose: 0.4 mg Ondansetron HCl (Ondansetron Hcl 4 Mg/2 Ml Vial) 4 mg IVPUSH Q8H PRN PRN Reason: Nausea and Vomiting Oxycodone HCl (Oxycodone Hcl Immed Release 5 Mg Tablet) 5 mg PO Q4H PRN PRN Reason: Pain, Severe (Pain Scale 7-10) Pharmacy Consult (Consult Rx Perform Med Rec) 1 each MISCELLANE ONCE PRN PRN Reason: Consult order Sodium Chloride (0.9 % Sodium Chloride Flush 3 Ml Syringe) 3 ml IVFLUSH QSHIFT [facility] Home Medications Medication Instructions Recorded Confirmed Last Taken Type albuterol sulfate 90 mcg/actuation 2 puff PO Q4-6H PRN Shortness Of 11/25/21 11/25/21 Unknown History aerosol inhaler (ProAir HFA) Breath alcohol swabs (Alcohol Prep Pads) 1 pad topical TID 11/25/21 11/25/21 Unknown History aspirin 25 mg-dipyridamole 200 mg 1 cap PO BID 11/25/21 11/25/21 Unknown History capsule,ext.release 12 hr multiphase blood sugar diagnostic (FreeStyle 11/25/21 11/25/21 Unknown History Lite Strips) carvedilol 12.5 mg tablet 1 tab PO DAILY 11/25/21 11/25/21 Unknown History clonazepam 1 mg tablet 1 tab PO BID 11/25/21 11/25/21 Unknown History clotrimazole 1 % topical cream 1 appl topical BID 11/25/21 11/25/21 Unknown History cyanocobalamin (vitamin B-12) 1 tab PO QAM 11/25/21 11/25/21 Unknown History 1,000 mcg tablet diclofenac sodium 1 % topical gel 2 g topical BID PRN pain 11/25/21 11/25/21 Unknown History diltiazem HCl 300 mg 1 cap PO QAM 11/25/21 11/25/21 Unknown History capsule,extended release 24 hr (Cartia XT) ergocalciferol (vitamin D2) 1,250 1 cap PO QWEEK 11/25/21 11/25/21 Unknown History mcg (50,000 unit) capsule ferrous fumarate 324 mg (106 mg 1 tab PO DAILY 11/25/21 11/25/21 Unknown History iron) tablet furosemide 40 mg tablet 1 tab PO QAM 11/25/21 11/25/21 Unknown History glipizide 10 mg tablet 1 tab PO BID 11/25/21 11/25/21 Unknown History hydralazine 25 mg tablet 3 tab PO TID 11/25/21 11/25/21 Unknown History insulin glargine 100 unit/mL (3 15 unit subcut DAILY 11/25/21 11/25/21 Unknown History mL) subcutaneous pen (Lantus Solostar U-100 Insulin) ipratropium bromide 21 mcg (0.03 2 spray intranasal TID 11/25/21 11/25/21 Unknown History %) nasal spray levothyroxine 112 mcg tablet 1 tab PO QAM 11/25/21 11/25/21 Unknown History lisinopril 40 mg tablet 1 tab PO QPM 11/25/21 11/25/21 Unknown History omega-3 acid ethyl esters 1 gram 2 cap PO BID 11/25/21 11/25/21 Unknown History capsule omeprazole 40 mg capsule,delayed 1 cap PO BID 11/25/21 11/25/21 Unknown History release oxycodone-acetaminophen 10 mg-325 1 tab PO Q4H PRN severe pain 11/25/21 11/25/21 Unknown History mg tablet pen needle, diabetic 32 gauge x 11/25/21 11/25/21 Unknown History ([place]) rosuvastatin 10 mg tablet 1 tab PO BEDTIME 11/25/21 11/25/21 Unknown History sodium bicarbonate 650 mg tablet 2 tab PO BID 11/25/21 11/25/21 Unknown History sodium zirconium cyclosilicate 5 1 packet PO DAILY 11/25/21 11/25/21 Unknown History gram oral powder packet (Lokelma) tamsulosin 0.4 mg capsule 1 cap PO QPM 11/25/21 11/25/21 Unknown History zolpidem 10 mg tablet 1 tab PO BEDTIME 11/25/21 11/25/21 Unknown History Physical Exam Vital Signs and Narrative: Vital Signs: Last Vital Signs Temp 98.6 F 11/24/21 23:45 Pulse 72 11/24/21 23:45 Resp 18 11/24/21 23:45 BP 146/70 H 11/24/21 23:45 Pulse Ox 96 11/24/21 23:45 O2 Del Method 11/24/21 23:45 BMI result Body Mass Index 32.3 Const: General: cooperative and no acute distress Orientation/consciousness: patient oriented x3 Eyes: General: appearance normal, both eyes and all related structures Resp: Effort & Inspection: normal respiratory effort Auscultation: clear to auscultation bilaterally Cardio: Rate: regular rate Rhythm: regular rhythm GI: Palpation (GI): Soft to palpation Auscultation: normal bowel sounds Skin: General skin exam: no rashes or lesions noted Neuro: General: patient oriented x3 Cognition (Neuro): normal cognition Extrem: General: Yes normal to inspection and Yes no pedal edema Results Labs CBC and Chem 7: 11/25/21 00:23 11/25/21 00:23 Labs: Laboratory Results - last 24 hr 11/25/21 11/25/21 11/25/21 00:23 00:23 00:23 MCV 87.0 MCH 28.9 MCHC 33.2 RDW 12.9 Plt Count 189 MPV 11.0 Immature Gran % (Auto) 0.3 Neut % (Auto) 72.2 Lymph % (Auto) 15.1 L [place] % (Auto) 10.1 Eos % (Auto) 2.1 Baso % (Auto) 0.2 Lymph # (Auto) 1.4 [place] # (Auto) 0.9 Eos # (Auto) 0.2 Baso # (Auto) 0.0 Abs Immat Gran (auto) 0.03 Absolute Neuts (auto) 6.7 Absolute Nucleated RBC 0.000 Nucleated RBC % (auto) 0.0 D-Dimer High Sensitivty Anion Gap 14 Estim Creat Clear Calc 10.1 Estimated GFR 7 Random Glucose 142 H D Calcium 8.2 L Total Bilirubin 0.3 Direct Bilirubin 0.2 AST 10 ALT 11 Alkaline Phosphatase 79 D Troponin I High Sens 34.3 D Total Protein 5.7 L Albumin 3.0 L Lipase 41 COVID-19 (MONY) COVID-19 Clin Com 11/25/21 11/25/21 11/25/21 00:24 02:11 05:39 MCV MCH MCHC RDW Plt Count MPV Immature Gran % (Auto) Neut % (Auto) Lymph % (Auto) [place] % (Auto) Eos % (Auto) Baso % (Auto) Lymph # (Auto) [place] # (Auto) Eos # (Auto) Baso # (Auto) Abs Immat Gran (auto) Absolute Neuts (auto) Absolute Nucleated RBC Nucleated RBC % (auto) D-Dimer High Sensitivty 749 Anion Gap Estim Creat Clear Calc Estimated GFR Random Glucose Calcium Total Bilirubin Direct Bilirubin AST ALT Alkaline Phosphatase Troponin I High Sens 32.0 Total Protein Albumin Lipase COVID-19 (MONY) Negative COVID-19 Clin Com See Note Assessment and Plan (1) Non-cardiac chest pain: Status: Acute (2) Acute kidney injury superimposed on CKD: Status: Acute (3) Normocytic anemia: Status: Acute Plan 61-year-old male with past medical history of CKD Plan for dialysis presents to the hospital with chest pain found to have worsening kidney function # noncardiac chest pain - likely secondary to heartburn - no evidence of ACS and EKG, troponin flat and slightly elevated likely secondary to CKD/CAROLYN - will increase his omeprazole to 40 mg daily # CAROLYN on CKD - patient planned for AV fistula outpatient but needs clearance from Cardiology per his - will consult Nephrology - no hyperkalemia at this time # normocytic anemia - has a significant drop in hemoglobin since August, likely secondary to worsening kidney disease - no acute bleed, no melena - will obtain ferritin, B12 and folic acid as well as stool occult blood - follow CBC - will hold nephrotoxins # diabetes - home metformin - dose sliding scale insulin - diabetic diet # hypertension - stable - continue home medications except for lisinopril given CAROLYN # CAD - continue aspirin-dipyridamole as well as the size am DVT prophylaxis: Heparin subQ Given the CAROLYN on CKD patient will require minimum 2 night hospital stay further management Quality Stroke Does the patient have a stroke diagnosis?: No VTE Prior VTE?: No VTE Risk Level:: Medical - moderate - high VTE Device Contraindication: N/A - Device Ordered VTE Drug Contraindication: Treatment Not Indicated
--- NOTE | 2021-11-25 07:03 | PHA.MEDREC ---
Pharmacy Consult ? Medication Reconciliation Pharmacy has reviewed the medication reconciliation.
[2021-11-25 07:34] LABS: Ferritin 255 ng/mL (20-250)
[2021-11-25 08:34] LABS: Folate 8.7 ng/mL (> or = 4.0); Vitamin B12 1065 pg/mL (200-900)
[2021-11-25] MEDS: Insulin Glargine,Hum.rec.anlog 100 UNIT/ML 10 ML VIAL 15 UNIT SUBCUT (08:47)
[2021-11-25] MEDS: Sodium Bicarbonate 650 MG TABLET 1300 MG PO (08:49)
[2021-11-25] MEDS: hydrALAZINE HCl 25 MG TABLET 75 MG PO ×2 (08:49→17:02)
[2021-11-25] MEDS: Omeprazole 40 MG CAPSULE.DR PO (08:49)
[2021-11-25] MEDS: Sodium Zirconium Cyclosilicate 5 GM POWD.PACK PO (08:49)
[2021-11-25] MEDS: Cyanocobalamin (Vitamin B-12) 1,000 MCG TABLET 1000 MCG PO (08:50)
[2021-11-25] MEDS: carvediloL 12.5 MG TABLET PO ×2 (08:50→14:38)
[2021-11-25] MEDS: clonazePAM 1 MG TABLET PO (08:50)
[2021-11-25] MEDS: Heparin Sodium,Porcine 5,000 UNIT/ML VIAL 5000 UNIT SUBCUT (08:51)
[2021-11-25] MEDS: Ferrous Sulfate 324 MG TABLET.DR PO ×2 (08:51→11:48)
[2021-11-25] MEDS: Tamsulosin HCL 0.4 MG CAPSULE PO ×2 (08:51→11:46)
[2021-11-25] MEDS: 0.9 % Sodium Chloride Flush 3 ML SYRINGE IVFLUSH (08:51)
[2021-11-25 08:59] VITALS: BP 170/77; PULSE 74; RESP 19; O2SAT 97
[2021-11-25 09:57] LABS: Glucose, Whole Blood 94 mg/dL (60-115)
--- NOTE | 2021-11-25 10:25 | MHC.CM.PN ---
Met with patient and his . Patient is currenlty on service with [facility] and has 28 hours per week of [employer]OR[employer]ORY TESTER through [employer] 2 times per day for assistance with bathing and dressing. Ambulates with walker, they have requested w/c and PCP office is working on obtaining w/c. Family drives as needed and patient also has PT1 for rides to medical appointments. reports patient travels in passenger car or chair van. reports patient has HCP at home, she will bring in a copy. Anticipate dc home with resumption of current services, to drive. Referral sent back to [facility]
--- NOTE | 2021-11-25 10:31 | P.PNIM_ITS ---
Subjective Subjective Date of Service: 11/25/21 Interval History: Examined this morning Follow-up for CAROLYN, chest pain Patient with recent admission at [facility] for nephrectomy and stroke Chest pain has resolved at this time, no shortness of breath Review of Systems Review of Systems: Yes all other systems are reviewed and are negative Constitutional Constitutional: Denies chills and Denies fever(s) Cardiovascular Cardiovascular: Denies chest pain, Denies palpitations and Denies dyspnea Respiratory Respiratory: Denies cough and Denies dyspnea Gastrointestinal Gastrointestinal: Denies nausea and Denies vomiting Endocrine Endocrine: Denies palpitations Physical Exam Vital Signs: Vital Signs: Last Vital Signs Temp 98.6 F 11/24/21 23:45 Pulse 74 11/25/21 08:59 Resp 19 11/25/21 08:59 BP 170/77 H 11/25/21 08:59 Pulse Ox 97 11/25/21 08:59 O2 Del Method 11/24/21 23:45 BMI result Body Mass Index 32.3 Const: General: cooperative, comfortable, no acute distress, alert and awake Nutritional Appearance: overweight Resp: Effort & Inspection: normal respiratory effort and able to speak in complete sentences Cardio: Rate: regular rate Heart sounds: S1 normal heart sound present and S2 normal heart sound present GI: Other: some tenderness with deep palpation (residual per patient since nephrectomy) Palpation (GI): Soft to palpation Extrem: Other: No leg edema, able to move all 4 extremities spontaneously Objective Data Active Medications Acetaminophen (Acetaminophen 325 Mg Tablet) 650 mg PO Q6H PRN PRN Reason: Pain, Mild (Pain Scale 1-3) Atorvastatin Calcium (Atorvastatin Calcium 40 Mg Tablet) 40 mg PO BEDTIME [facility] Carvedilol (Carvedilol 12.5 Mg Tablet) 12.5 mg PO DAILY [facility]; Protocol Last Admin: 11/25/21 08:50 Dose: 12.5 mg Documented By: REYES Clonazepam (Clonazepam 1 Mg Tablet) 1 mg PO BID [facility] Last Admin: 11/25/21 08:50 Dose: 1 mg Documented By: REYES Cyanocobalamin (Cyanocobalamin (Vitamin B-12) 1,000 Mcg Tablet) 1,000 mcg PO DAILY [facility] Last Admin: 11/25/21 08:50 Dose: Not Given Documented By: REYES Non-Admin Reason: See Note Diltiazem HCl (Diltiazem Hcl Cd 300 Mg Cap.Er.24h) 300 mg PO DAILY [facility]; Protocol Dipyridamole/Aspirin (Aspirin/Dipyridamole Er 25/200 Cpmp.12hr) 1 cap PO BID [facility] Ergocalciferol (Ergocalciferol (Vitamin D2) 1,250 Mcg Capsule) 1,250 mcg PO Q7D [facility] Ferrous Sulfate (Ferrous Sulfate 324 Mg Tablet.) 324 mg PO DAILY [facility] Last Admin: 11/25/21 08:51 Dose: 324 mg Documented By: REYES Heparin Sodium (Porcine) (Heparin Sodium,Porcine 5,000 Unit/Ml Vial) 5,000 unit SUBCUT Q12H [facility] Last Admin: 11/25/21 08:51 Dose: 5,000 unit Documented By: REYES Hydralazine HCl (Hydralazine Hcl 25 Mg Tablet) 75 mg PO TID [facility]; Protocol Last Admin: 11/25/21 08:49 Dose: 75 mg Documented By: REYES Lactated Ringer's (Lr) 1,000 mls @ 100 mls/hr IVCONT .Q10H [facility] Last Admin: 11/25/21 06:47 Dose: 100 mls/hr Documented By: DUVALNick Insulin Glargine (Insulin Glargine,Hum.Rec.Anlog 100 Unit/Ml 10 Ml Vial) 15 unit SUBCUT DAILY [facility] Last Admin: 11/25/21 08:47 Dose: 15 unit Documented By: REYES Ipratropium [place] (Ipratropium [place] Torin 0.03 % 30 Ml [place]) 2 spray NOSTRIL-B TID [facility] Levothyroxine Sodium (Levothyroxine Sodium 112 Mcg Tablet) 112 mcg PO DAILY [facility] Nitroglycerin (Nitroglycerin 0.4 Mg Tab.Subl) 0.4 mg SUBLINGUAL Q5MX3 PRN PRN Reason: Chest Pain Last Admin: 11/25/21 00:53 Dose: 0.4 mg Documented By: UVALDO Omeprazole (Omeprazole 40 Mg Capsule.) 40 mg PO BID [facility] Last Admin: 11/25/21 08:49 Dose: 40 mg Documented By: REYES Ondansetron HCl (Ondansetron Hcl 4 Mg/2 Ml Vial) 4 mg IVPUSH Q8H PRN PRN Reason: Nausea and Vomiting Oxycodone HCl (Oxycodone Hcl Immed Release 5 Mg Tablet) 5 mg PO Q4H PRN PRN Reason: Pain, Severe (Pain Scale 7-10) Pharmacy Consult (Consult Rx Perform Med Rec) 1 each MISCELLANE ONCE PRN PRN Reason: Consult order Sodium Bicarbonate (Sodium Bicarbonate 650 Mg Tablet) 1,300 mg PO BID [facility] Last Admin: 11/25/21 08:49 Dose: 1,300 mg Documented By: REYES Sodium Chloride (0.9 % Sodium Chloride Flush 3 Ml Syringe) 3 ml IVFLUSH QSHIFT [facility] Last Admin: 11/25/21 08:51 Dose: 3 ml Documented By: REYES Sodium Zirconium Cyclosilicate (Sodium Zirconium Cyclosilicate 5 Gm Powd.Pack) 5 gm PO DAILY [facility] Last Admin: 11/25/21 08:49 Dose: 5 gm Documented By: REYES Tamsulosin HCl (Tamsulosin Hcl 0.4 Mg Capsule) 0.4 mg PO DAILY [facility] Last Admin: 11/25/21 08:51 Dose: 0.4 mg Documented By: REYES Zolpidem Tartrate (Zolpidem Tartrate 5 Mg Tablet) 5 mg PO BEDTIME [facility] Labs CBC & Chem 7: 11/25/21 00:23 11/25/21 00:23 Labs: Laboratory Results - last 24 hr 11/25/21 11/25/21 11/25/21 00:23 00:23 00:23 MCV 87.0 MCH 28.9 MCHC 33.2 RDW 12.9 Plt Count 189 MPV 11.0 Immature Gran % (Auto) 0.3 Neut % (Auto) 72.2 Lymph % (Auto) 15.1 L [place] % (Auto) 10.1 Eos % (Auto) 2.1 Baso % (Auto) 0.2 Lymph # (Auto) 1.4 [place] # (Auto) 0.9 Eos # (Auto) 0.2 Baso # (Auto) 0.0 Abs Immat Gran (auto) 0.03 Absolute Neuts (auto) 6.7 Absolute Nucleated RBC 0.000 Nucleated RBC % (auto) 0.0 D-Dimer High Sensitivty Anion Gap 14 Estim Creat Clear Calc 10.1 Estimated GFR 7 POC Glucose Random Glucose 142 H D Calcium 8.2 L Ferritin Total Bilirubin 0.3 Direct Bilirubin 0.2 AST 10 ALT 11 Alkaline Phosphatase 79 D Troponin I High Sens 34.3 D Total Protein 5.7 L Albumin 3.0 L Lipase 41 Vitamin B12 Folate COVID-19 ([facility]) COVID-19 Clin Com 11/25/21 11/25/21 11/25/21 00:24 02:11 05:39 MCV MCH MCHC RDW Plt Count MPV Immature Gran % (Auto) Neut % (Auto) Lymph % (Auto) [place] % (Auto) Eos % (Auto) Baso % (Auto) Lymph # (Auto) [place] # (Auto) Eos # (Auto) Baso # (Auto) Abs Immat Gran (auto) Absolute Neuts (auto) Absolute Nucleated RBC Nucleated RBC % (auto) D-Dimer High Sensitivty 749 Anion Gap Estim Creat Clear Calc Estimated GFR POC Glucose Random Glucose Calcium Ferritin Total Bilirubin Direct Bilirubin AST ALT Alkaline Phosphatase Troponin I High Sens 32.0 Total Protein Albumin Lipase Vitamin B12 Folate COVID-19 ([facility]) Negative COVID-19 Clin Com See Note 11/25/21 11/25/21 11/25/21 06:55 06:55 09:53 MCV MCH MCHC RDW Plt Count MPV Immature Gran % (Auto) Neut % (Auto) Lymph % (Auto) [place] % (Auto) Eos % (Auto) Baso % (Auto) Lymph # (Auto) [place] # (Auto) Eos # (Auto) Baso # (Auto) Abs Immat Gran (auto) Absolute Neuts (auto) Absolute Nucleated RBC Nucleated RBC % (auto) D-Dimer High Sensitivty Anion Gap Estim Creat Clear Calc Estimated GFR POC Glucose 94 Random Glucose Calcium Ferritin 255 H Total Bilirubin Direct Bilirubin AST ALT Alkaline Phosphatase Troponin I High Sens Total Protein Albumin Lipase Vitamin B12 1065 H Folate 8.7 COVID-19 ([facility]) COVID-19 Clin Com Assessment and Plan (1) Acute kidney injury superimposed on CKD: Status: Acute Plan 61-year-old male with past medical history of CKD Plan for dialysis presents to the hospital with chest pain found to have worsening kidney function chest pain resolved T-wave inversions in V5, V6; Tropes flat -cardiology consult CAROLYN on CKD Unclear baseline, will attempt to obtain records from [facility] patient planned for AV fistula outpatient but needs clearance from Cardiology per his - continue IVF - consult Nephrology - hold brittany - continue stodium bicarb normocytic anemia has a significant drop in hemoglobin since August, likely secondary to worsening kidney disease - will attempt to get records from [facility] to term and most recent baseline - no acute bleed, no melena -stool occult pending - B12, folic acid wnl - follow CBC diabetes - hold home oral medication - dose sliding scale insulin - diabetic diet hypertension - continue home Coreg, diltiazem, hydralazine - continue home medications except for lisinopril given CAROLYN h/o CAD - continue aspirin-dipyridamole, statin DVT prophylaxis: Heparin subQ Attending - Dr. Traylor Patient requires ongoing hospitalization for CAROLYN, workup for chest pain Quality Stroke Does the patient have a stroke diagnosis?: No VTE Prior VTE?: No VTE Risk Level:: Medical - moderate - high VTE Device Contraindication: N/A - Device Ordered VTE Drug Contraindication: Treatment Not Indicated
[2021-11-25 11:15] LABS: Anion Gap 14 (12-20); Blood Urea Nitrogen 58 mg/dL (9-16); Calcium 7.9 mg/dL (8.4-10.2); Carbon Dioxide 19 mmol/L (22-29); Chloride 112 mmol/L (96-108); Creatinine Clr Calc Pharmacy 10.1; Estimated Glomerular Filt Rate 7; Glucose Random 97 mg/dL (60-115); Potassium 4.2 mmol/L (3.3-5.1); Sodium 141 mmol/L (135-145)
[2021-11-25] MEDS: dilTIAZem HCL CD 300 MG CAP.ER.24H PO (11:47)
[2021-11-25] MEDS: Ergocalciferol (Vitamin D2) 1,250 MCG CAPSULE 1250 MCG PO (11:48)
[2021-11-25] MEDS: Ipratropium Bromide Nas 0.03 % 30 ML SPRAY 2 SPRAY NOSTRIL-B ×2 (11:49→17:02)
[2021-11-25 11:55] VITALS: BP 163/76; PULSE 80; RESP 18; O2SAT 98
[2021-11-25] MEDS: Levothyroxine Sodium 112 MCG TABLET PO (12:52)
--- NOTE | 2021-11-25 13:32 | ECG_ITS ---
Test Reason : chest pain Blood Pressure : / mmHG Vent. Rate : 077 BPM Atrial Rate : 077 BPM P-R Int : 196 ms QRS Dur : 092 ms QT Int : 420 ms P-R-T Axes : 051 056 148 degrees QTc Int : 475 ms Normal sinus rhythm Septal infarct (cited on or before 25-NOV-2021) ST & T wave abnormality, consider lateral ischemia Abnormal ECG When compared with ECG of 25-NOV-2021 00:26, No significant change was found Referred By: Sharon Roldan Electronically Signed By:BAY POSADAS
[2021-11-25 13:53] VITALS: BP 163/80; PULSE 79; RESP 18
--- NOTE | 2021-11-25 14:25 | ECG_ITS ---
Test Reason : chest pain Blood Pressure : / mmHG Vent. Rate : 077 BPM Atrial Rate : 077 BPM P-R Int : 180 ms QRS Dur : 086 ms QT Int : 424 ms P-R-T Axes : 046 056 119 degrees QTc Int : 479 ms Normal sinus rhythm Septal infarct (cited on or before 25-NOV-2021) ST & T wave abnormality, consider lateral ischemia Abnormal ECG When compared with ECG of 25-NOV-2021 13:28, No significant change was found Referred By: Agnieszka Gaines Electronically Signed By:BAY POSADAS
[2021-11-25] MEDS: Morphine Sulfate 2 MG/ML CARTRIDGE IVPUSH (14:38)
[2021-11-25 14:40] VITALS: BP 168/80; PULSE 76; O2SAT 98
--- NOTE | 2021-11-25 15:00 | CA_ITS ---
Transthoracic Echocardiogram Patient (Last, First, Middle): Joshua Barnard, Gender: Male Date of : 1960 Age: 61 Procedure Date: 11/25/2021 Procedure Type: Transthoracic Echocardiogram Location: ER Height: 167.64 cm Weight: 90.72 kg BSA: 2.00 m2 Heart Rate: bpm BP: 151 / 76 mmHg Clinical Editor: Referring MD: Flavia BATRES Symptoms: chest pain Study Quality: Good ECG Rhythm: Sinus Conclusions: - The left ventricular systolic function is normal. The calculated ejection fraction is 55% by biplane method. - Possible basal inferior hypokinesis. - Evidence suggests grade III (severe) diastolic dysfunction. - The left atrium is moderately dilated. - No obvious valvular pathology seen on this study. Findings Left Ventricle Normal left ventricular cavity size. There is moderately increased left ventricular wall thickness. The left ventricular systolic function is normal. The calculated ejection fraction is 55% by biplane method. E/E prime ratio is >15, consistent with elevated filling pressures. Evidence suggests grade III (severe) diastolic dysfunction. Possible basal inferior hypokinesis. Right Ventricle Mildly increased right ventricular cavity size. There is normal right ventricular systolic function. Atria The left atrium is moderately dilated. The right atrium is normal in size. Aortic Valve There is a normal trileaflet aortic valve. There is no aortic valve stenosis. There is trace (trivial) aortic valve regurgitation. Mitral Valve The mitral valve appears normal. There is trace mitral valve regurgitation. There is no mitral valve stenosis. Pulmonic Valve The pulmonic valve is likely normal. Tricuspid Valve Normal tricuspid valve structure. There is trace tricuspid valve regurgitation. The pulmonary artery systolic pressure is normal. Great Vessels The aortic annulus, sinuses of valsalva, and asc aorta are normal in size. Venous The inferior vena cava is normal in size and collapses greater than 50% with inspiration. Pericardium/Pleural There is a small loculated pericardial effusion overlying the left ventricle. Prior Study Comparison Changes noted compared to prior study dated: 08/25/2014. Progression of diastolic dysfunction. Possible wall motion abnormality. Recommendations, Care & Conclusions No obvious valvular pathology seen on this study. Measurements 2D Linear Measurements IVSd: 1.26 0.6-0.9/0.6-1.0 cm LVIDd: 5.38 3.9-5.3/4.2-5.9 cm LVIDd Index: 2.69 2.4-3.2/2.2-3.1 cm/m2 LVIDs: 3.64 2.0-3.6 cm LVPWd: 1.27 0.7-1.1 cm Ao Root: 3.80 2.1-3.5 cm LA Diam: 4.20 2.7-3.8/3.0-4.0 cm LAIDs Index: 2.10 1.5-2.3 cm/m2 LV Mass: 352.76 67-162/88-224 g LV Mass Index: 176.38 43-95/49-115 g/m2 LVOT Diam: 2.60 3.0+(-)1.3 cm 2D Systolic Function EF 4C: 54.70 >55% EF 2C: 55.90 >55% EF BiP: 55.40 >55% Mitral Valve MV Pk E: 1.30 MV PK A: 0.56 MV Decel Time: 143.00 E/A: 2.30 E'Lateral: 6.53 E'Medial: 4.79 E/E' Med: 27.10 E/E' Lat: 19.90 PHT: 42.00 MVA PHT: 5.24 Decel [place]: 9.13 Aortic Valve AoV Pk Agustin: 1.62 AoV Mn Agustin: 1.16 AoV VTI: 0.40 AoV Pk Grad: 10.00 Aov Mn Grad: 6.00 MOHAN Cont.VTI: 3.43 LVOT LVOT Pk Agustin: 1.07 LVOT Mn Agustin: 0.68 LVOT VTI: 0.26 LVOT Pk Grad: 5.00 LVOT Mn Grad: 2.00 LVOT Diam: 2.60 LVOT Area: 5.31 Diastolic Function MV Pk E: 1.30 MV Pk A: 0.56 E/A: 2.30 E'Medial: 4.79 E/E' Med: 27.10 E' Laterial: 6.53 E/E' Lat: 19.90 Right Ventricle TAPSE (mm): 29.00 TVS' Agustin: 12.00 Tricuspid Valve TR Pk Agustin: 2.38 TR Pk Grad: 23.00 RA Press: 3.00 RVSP: 26.00 Great Vessels Aorta Ao Root-2D: 3.80 2.0-3.7 cm Ao Asc: 3.90 2.1-3.4 cm Pulmonary Valve PV Pk Agustin: 1.39 Peak PV Grad: 8.00 Updated in Other Vendor System with Status of Final Tam Cosby MD electronically signed on 11/25/2021 4:56:49 PM with status of Final
[2021-11-25 15:10] VITALS: BP 151/76; PULSE 76; RESP 19; O2SAT 97
[2021-11-25 15:24] LABS: Troponin-I High Sensitivity 33.4 ng/L (<3.5-35.0)
--- NOTE | 2021-11-25 15:43 | P.CONCA_ITS ---
History of Present Illness History of Present Illness Date of Service: 11/25/21 Chief complaint: CAROLYN, acute anemia Narrative: This is a cardiology consultation regarding chest pain. Discussed with patient's at bedside also spoke to Flavia Gill. Also with the patient's RN at the bedside. Patient has advanced kidney disease and about to start dialysis soon. He also had history of strokes. History of nephrectomy few weeks back. Hypertension diabetes. Currently admitted to the hospital for chest pain. He states that this pain is somewhere in the lower chest/adjacent e pigastrium. Sharp and worse when he lays down. The last few hours, he has been complaining of chest pain. However, he seemed quite comfortable during evaluation. No documented coronary disease or myocardial infarction. He was recently in fact seen by Cardiology at [facility] but at that time, they did not feel it was anginal. Also the overall about the kidney function and hence not pursue any aggressive workup. Review of Systems Review of Systems: Yes all other systems are reviewed and are negative Constitutional: Constitutional: Reports as per HPI Eyes: Eyes: Reports as per HPI ENT: Reports as per HPI Cardiovascular: Cardiovascular: Reports as per HPI, Denies acrocyanosis, Denies cool extremities, Reports chest pain, Denies leg edema, Denies lightheadedness, Denies palpitations and Denies dyspnea Respiratory: Respiratory: Reports as per HPI, Reports no additional respiratory complaints and Denies dyspnea Gastrointestinal: Gastrointestinal: Reports as per HPI and Reports no additional gastrointestinal complaints Genitourinary: Genitourinary: Reports no additional male genitourinary complaints and Reports as per HPI Musculoskeletal: Musculoskeletal: Reports no additional musculoskeletal com plaints and Reports as per HPI Integumentary/Breasts: Skin/Breast: Reports system reviewed and no additional complaints, except as docu Neurologic: Reports system reviewed and no additional complaints, except as documented and Reports as per HPI Psychiatric: Psychiatric: Reports no additional psychiatric complaints and Reports as per HPI Endocrine: Endocrine: Reports no additional endocrine complaints, Reports as per HPI and Denies palpitations Hematologic/Lymphatic: Hematologic/Lymphatic: Reports no additional hematologic/lymphatic complaints and Reports as per HPI Allergic/Immunologic: Allergic/Immunologic: Reports no additional allergic/immunologic complaints and Reports as per HPI [facility] Past Medical History Medical History (Updated 11/25/21 @ 17:02 by Tam Cosby MD) CAD (coronary artery disease) CKD (chronic kidney disease) CVA (cerebral vascular accident) Diabetes Hypertension Family History Family History (Updated 11/25/21 @ 07:11 by Silvia Freitas MD) Other No family history of coronary artery disease Surgical History Surgical History (Updated 11/25/21 @ 07:11 by Silvia Freitas MD) History of nephrectomy Social History Social History Alcohol intake: never Patient Tobacco Use Status: Never used Tobacco Use of substances other than those prescribed or required for medical reasons: No Advance Directives: No Advance Directives Information Provided: Yes service: No Current occupational status: disabled Meds Allergies Allergy/AdvReac Type Severity Reaction Status Date / Time No Known Allergies Allergy Verified 09/01/21 14:13 Active Medications: Current Medications Acetaminophen (Acetaminophen 325 Mg Tablet) 650 mg PO Q6H PRN PRN Reason: Pain, Mild (Pain Scale 1-3) Atorvastatin Calcium (Atorvastatin Calcium 40 Mg Tablet) 40 mg PO BEDTIME [facility] Carvedilol (Carvedilol 12.5 Mg Tablet) 12.5 mg PO BID [facility]; Protocol Last Admin: 11/25/21 14:38 Dose: 12.5 mg Clonazepam (Clonazepam 1 Mg Tablet) 1 mg PO BID [facility] Last Admin: 11/25/21 08:50 Dose: 1 mg Cyanocobalamin (Cyanocobalamin (Vitamin B-12) 1,000 Mcg Tablet) 1,000 mcg PO DAILY [facility] Last Admin: 11/25/21 08:50 Dose: 1,000 mcg Diltiazem HCl (Diltiazem Hcl Cd 300 Mg Cap.Er.24h) 300 mg PO DAILY [facility]; Protocol Last Admin: 11/25/21 11:47 Dose: 300 mg Dipyridamole/Aspirin (Aspirin/Dipyridamole Er 25/200 Cpmp.12hr) 1 cap PO BID [facility] Last Admin: 11/25/21 11:47 Dose: 1 cap Ergocalciferol (Ergocalciferol (Vitamin D2) 1,250 Mcg Capsule) 1,250 mcg PO Q7D [facility] Last Admin: 11/25/21 11:48 Dose: 1,250 mcg Ferrous Sulfate (Ferrous Sulfate 324 Mg Tablet.Dr) 324 mg PO DAILY [facility] Last Admin: 11/25/21 11:48 Dose: 324 mg Heparin Sodium (Porcine) (Heparin Sodium,Porcine 5,000 Unit/Ml Vial) 5,000 unit SUBCUT Q12H [facility] Last Admin: 11/25/21 08:51 Dose: 5,000 unit Hydralazine HCl (Hydralazine Hcl 25 Mg Tablet) 75 mg PO TID [facility]; Protocol Last Admin: 11/25/21 08:49 Dose: 75 mg Lactated Ringer's (Lr) 1,000 mls @ 100 mls/hr IVCONT .Q10H [facility] Last Admin: 11/25/21 06:47 Dose: 100 mls/hr Insulin Glargine (Insulin Glargine,Hum.Rec.Anlog 100 Unit/Ml 10 Ml Vial) 15 unit SUBCUT DAILY [facility] Last Admin: 11/25/21 08:47 Dose: 15 unit Ipratropium [place] (Ipratropium [place] Torin 0.03 % 30 Ml [place]) 2 spray NOSTRIL-B TID [facility] Last Admin: 11/25/21 11:49 Dose: 2 spray Levothyroxine Sodium (Levothyroxine Sodium 112 Mcg Tablet) 112 mcg PO DAILY [facility] Last Admin: 11/25/21 12:54 Dose: Not Given Nitroglycerin (Nitroglycerin 0.4 Mg Tab.Subl) 0.4 mg SUBLINGUAL Q5MX3 PRN PRN Reason: Chest Pain Last Admin: 11/25/21 00:53 Dose: 0.4 mg Nitroglycerin (Nitroglycerin 2 % Oint 1 Gm Packet) 0.5 inch TRANSDERMA RQ6H WHILE AWAKE [facility] Omeprazole (Omeprazole 40 Mg Capsule.Dr) 40 mg PO BID [facility] Last Admin: 11/25/21 08:49 Dose: 40 mg Ondansetron HCl (Ondansetron Hcl 4 Mg/2 Ml Vial) 4 mg IVPUSH Q8H PRN PRN Reason: Nausea and Vomiting Oxycodone HCl (Oxycodone Hcl Immed Release 5 Mg Tablet) 5 mg PO Q4H PRN PRN Reason: Pain, Severe (Pain Scale 7-10) Pharmacy Consult (Consult Rx Perform Med Rec) 1 each MISCELLANE ONCE PRN PRN Reason: Consult order Sodium Bicarbonate (Sodium Bicarbonate 650 Mg Tablet) 1,300 mg PO BID [facility] Last Admin: 11/25/21 08:49 Dose: 1,300 mg Sodium Chloride (0.9 % Sodium Chloride Flush 3 Ml Syringe) 3 ml IVFLUSH QSHIFT [facility] Last Admin: 11/25/21 08:51 Dose: 3 ml Sodium Zirconium Cyclosilicate (Sodium Zirconium Cyclosilicate 5 Gm Powd.Pack) 5 gm PO DAILY [facility] Last Admin: 11/25/21 08:49 Dose: 5 gm Tamsulosin HCl (Tamsulosin Hcl 0.4 Mg Capsule) 0.4 mg PO DAILY [facility] Last Admin: 11/25/21 11:46 Dose: 0.4 mg Zolpidem Tartrate (Zolpidem Tartrate 5 Mg Tablet) 5 mg PO BEDTIME [facility] Home Medications Medication Instructions Recorded Confirmed Last Taken Type albuterol sulfate 90 mcg/actuation 2 puff PO Q4-6H PRN Shortness Of 11/25/21 11/25/21 Unknown History aerosol inhaler (ProAir HFA) Breath alcohol swabs (Alcohol Prep Pads) 1 pad topical TID 11/25/21 11/25/21 Unknown History aspirin 25 mg-dipyridamole 200 mg 1 cap PO BID 11/25/21 11/25/21 Unknown History capsule,ext.release 12 hr multiphase blood sugar diagnostic (FreeStyle 11/25/21 11/25/21 Unknown History Lite Strips) carvedilol 12.5 mg tablet 1 tab PO DAILY 11/25/21 11/25/21 Unknown History clonazepam 1 mg tablet 1 tab PO BID 11/25/21 11/25/21 Unknown History clotrimazole 1 % topical cream 1 appl topical BID 11/25/21 11/25/21 Unknown History cyanocobalamin (vitamin B-12) 1 tab PO QAM 11/25/21 11/25/21 Unknown History 1,000 mcg tablet diclofenac sodium 1 % topical gel 2 g topical BID PRN pain 11/25/21 11/25/21 Unknown History diltiazem HCl 300 mg 1 cap PO QAM 11/25/21 11/25/21 Unknown History capsule,extended release 24 hr (Cartia XT) ergocalciferol (vitamin D2) 1,250 1 cap PO QWEEK 11/25/21 11/25/21 Unknown History mcg (50,000 unit) capsule ferrous fumarate 324 mg (106 mg 1 tab PO DAILY 11/25/21 11/25/21 Unknown History iron) tablet furosemide 40 mg tablet 1 tab PO QAM 11/25/21 11/25/21 Unknown History glipizide 10 mg tablet 1 tab PO BID 11/25/21 11/25/21 Unknown History hydralazine 25 mg tablet 3 tab PO TID 11/25/21 11/25/21 Unknown History insulin glargine 100 unit/mL (3 15 unit subcut DAILY 11/25/21 11/25/21 Unknown History mL) subcutaneous pen (Lantus Solostar U-100 Insulin) ipratropium bromide 21 mcg (0.03 2 spray intranasal TID 11/25/21 11/25/21 Unknown History %) nasal spray levothyroxine 112 mcg tablet 1 tab PO QAM 11/25/21 11/25/21 Unknown History lisinopril 40 mg tablet 1 tab PO QPM 11/25/21 11/25/21 Unknown History omega-3 acid ethyl esters 1 gram 2 cap PO BID 11/25/21 11/25/21 Unknown History capsule omeprazole 40 mg capsule,delayed 1 cap PO BID 11/25/21 11/25/21 Unknown History release oxycodone-acetaminophen 10 mg-325 1 tab PO Q4H PRN severe pain 11/25/21 11/25/21 Unknown History mg tablet pen needle, diabetic 32 gauge x 11/25/21 11/25/21 Unknown History (Pentips) rosuvastatin 10 mg tablet 1 tab PO BEDTIME 11/25/21 11/25/21 Unknown History sodium bicarbonate 650 mg tablet 2 tab PO BID 11/25/21 11/25/21 Unknown History sodium zirconium cyclosilicate 5 1 packet PO DAILY 11/25/21 11/25/21 Unknown History gram oral powder packet (Lokelma) tamsulosin 0.4 mg capsule 1 cap PO QPM 11/25/21 11/25/21 Unknown History zolpidem 10 mg tablet 1 tab PO BEDTIME 11/25/21 11/25/21 Unknown History Physical Exam Vital Signs: Vital Signs: Last Vital Signs Temp 98.6 F 11/24/21 23:45 Pulse 76 11/25/21 15:10 Resp 19 11/25/21 15:10 BP 151/76 H 11/25/21 15:10 Pulse Ox 97 11/25/21 15:10 O2 Del Method 11/25/21 15:10 BMI result Body Mass Index 32.3 Const: General: comfortable and no acute distress Orientation/consciousness: patient oriented x3 HEENT: Other: Unremarkable Head: Yes normal to inspection Neck: Neck: Yes normal visual inspection Chest: Chest palpation & inspection: normal inspection of the chest Resp: Auscultation: clear to auscultation bilaterally Cardio: Palpation: normal PMI Heart sounds: S1 normal heart sound present, S2 normal heart sound present, no gallops, no murmurs and no rubs GI: Palpation (GI): Soft to palpation Back/Spine/Pelvis: Other: unremarkable Skin: General skin exam: no rashes or lesions noted Neuro: General: patient oriented x3 Extrem: General: Yes normal to inspection Psych: Mental Status: mental status grossly normal Objective Labs and Meds Result diagrams: 11/25/21 00:23 11/25/21 10:44 Lab results: Laboratory Results - last 24 hr 11/25/21 11/25/21 11/25/21 00:23 00:23 00:23 WBC 9.3 RBC 2.84 L Hgb 8.2 L D Hct 24.7 L D MCV 87.0 MCH 28.9 MCHC 33.2 RDW 12.9 Plt Count 189 MPV 11.0 Immature Gran % (Auto) 0.3 Neut % (Auto) 72.2 Lymph % (Auto) 15.1 L [place] % (Auto) 10.1 Eos % (Auto) 2.1 Baso % (Auto) 0.2 Lymph # (Auto) 1.4 [place] # (Auto) 0.9 Eos # (Auto) 0.2 Baso # (Auto) 0.0 Abs Immat Gran (auto) 0.03 Absolute Neuts (auto) 6.7 Absolute Nucleated RBC 0.000 Nucleated RBC % (auto) 0.0 D-Dimer High Sensitivty Sodium 140 Potassium 3.9 Chloride 110 H Carbon Dioxide 20 L Anion Gap 14 BUN 59 H D Creatinine 7.95 H* Estim Creat Clear Calc 10.1 Estimated GFR 7 POC Glucose Random Glucose 142 H D Calcium 8.2 L Ferritin Total Bilirubin 0.3 Direct Bilirubin 0.2 AST 10 ALT 11 Alkaline Phosphatase 79 D Troponin I High Sens 34.3 D Total Protein 5.7 L Albumin 3.0 L Lipase 41 Vitamin B12 Folate COVID-19 ([facility]) COVID-19 Clin Com 06/29/22 06/29/22 06/29/22 00:24 02:11 05:39 WBC RBC Hgb Hct MCV MCH MCHC RDW Plt Count MPV Immature Gran % (Auto) Neut % (Auto) Lymph % (Auto) [place] % (Auto) Eos % (Auto) Baso % (Auto) Lymph # (Auto) [place] # (Auto) Eos # (Auto) Baso # (Auto) Abs Immat Gran (auto) Absolute Neuts (auto) Absolute Nucleated RBC Nucleated RBC % (auto) D-Dimer High Sensitivty 749 Sodium Potassium Chloride Carbon Dioxide Anion Gap BUN Creatinine Estim Creat Clear Calc Estimated GFR POC Glucose Random Glucose Calcium Ferritin Total Bilirubin Direct Bilirubin AST ALT Alkaline Phosphatase Troponin I High Sens 32.0 Total Protein Albumin Lipase Vitamin B12 Folate COVID-19 ([facility]) Negative COVID-19 Clin Com See Note 11/25/21 11/25/21 11/25/21 06:55 06:55 09:53 WBC RBC Hgb Hct MCV MCH MCHC RDW Plt Count MPV Immature Gran % (Auto) Neut % (Auto) Lymph % (Auto) [place] % (Auto) Eos % (Auto) Baso % (Auto) Lymph # (Auto) [place] # (Auto) Eos # (Auto) Baso # (Auto) Abs Immat Gran (auto) Absolute Neuts (auto) Absolute Nucleated RBC Nucleated RBC % (auto) D-Dimer High Sensitivty Sodium Potassium Chloride Carbon Dioxide Anion Gap BUN Creatinine Estim Creat Clear Calc Estimated GFR POC Glucose 94 Random Glucose Calcium Ferritin 255 H Total Bilirubin Direct Bilirubin AST ALT Alkaline Phosphatase Troponin I High Sens Total Protein Albumin Lipase Vitamin B12 1065 H Folate 8.7 COVID-19 ([facility]) COVID-19 Clin Com 11/25/21 11/25/21 10:44 14:50 WBC RBC Hgb Hct MCV MCH MCHC RDW Plt Count MPV Immature Gran % (Auto) Neut % (Auto) Lymph % (Auto) [place] % (Auto) Eos % (Auto) Baso % (Auto) Lymph # (Auto) [place] # (Auto) Eos # (Auto) Baso # (Auto) Abs Immat Gran (auto) Absolute Neuts (auto) Absolute Nucleated RBC Nucleated RBC % (auto) D-Dimer High Sensitivty Sodium 141 Potassium 4.2 Chloride 112 H Carbon Dioxide 19 L Anion Gap 14 BUN 58 H Creatinine 7.99 H* Estim Creat Clear Calc 10.1 Estimated GFR 7 POC Glucose Random Glucose 97 Calcium 7.9 L Ferritin Total Bilirubin Direct Bilirubin AST ALT Alkaline Phosphatase Troponin I High Sens 33.4 Total Protein Albumin Lipase Vitamin B12 Folate COVID-19 ([facility]) COVID-19 Clin Com ECG Interpretation: EKG shows sinus rhythm at 77/Min; ST depression with T inversions in lateral leads. These are different from prior EKG in August. Imaging Radiologist's impression: Impressions Renal Ultrasound 11/25/21 07:29 IMPRESSION: Right kidney surgically absent. Mild left-sided hydronephrosis of uncertain etiology with a left ureteric jet seen in the visualized bladder. Pulmonary Perfusion Imaging 11/25/21 08:30 IMPRESSION: Normal perfusion scan. No suspicion for pulmonary emboli. Chest X-Ray 11/25/21 09:12 IMPRESSION: Platelike atelectasis in the lingula. Assessment and Plan (1) Chest pain: Qualifiers: Chest pain type: precordial pain Qualified Code(s): R07.2 - Precordial pain Status: Acute (2) CKD (chronic kidney disease): Status: Acute (3) Essential hypertension: Status: Acute (4) Type 2 diabetes mellitus with unspecified complications: Status: Acute Plan EKG shows lateral ST-T changes that seem new. However, high sensitivity troponins have been done 3 times and they are well within range. This in spite of chronic kidney disease. Hence overall there is no evidence of NSTEMI. But not clear if it is still angina or something pericardial versus musculoskeletal. The EKG changes are still concerning. With his risk factor profile including advanced kidney disease, diabetes, hypertension, he could certainly have underlying coronary disease. Ideally, will need diagnostic catheterization but he also on the verge of dialysis. Hence if he were to pursue anything invasive he may have to be dialyzed 1st and will need nephro input. In the interim, we can continue on the Coreg that he is already on. We can start him on either nitro paste or patch. Morphine for symptom relief. Heparin drip. Being discussed with [facility] at this time. Procedures Date of Service Date of Service: 11/25/21
--- NOTE | 2021-11-25 15:59 | PC.NURSE ---
attempted to medicated pt, CA echo in process.
[2021-11-25 17:03] VITALS: PULSE 69
[2021-11-25] MEDS: Nitroglycerin 2 % Oint 1 GM Packet 0.5 INCH TRANSDERMA (17:03)
--- NOTE | 2021-11-25 17:19 | PC.NURSE ---
pt medicated per provider order, spoke w hospitalist re pt pain, nitro given ~15min ago - pain has gone from 11/06 to 10/06.
--- NOTE | 2021-11-25 17:33 | P.DS_ITS ---
DS: Providers Provider Date of Service: 11/25/21 Date of admission: 11/25/21 06:05 Date of discharge: 11/25/21 Primary care physician: [facility] Consults: 11/25/21 10:27 Consult to Cardiology Routine Consulting Provider: Tam Cosby Reason for consultation: chest pain Has provider been notified: No Attending physician on discharge: Darío Traylor Discharging clinician: Flavia Gill DS: Diagnosis Discharge Diagnosis (1) Chest pain: Status: Acute (2) CKD (chronic kidney disease): Status: Acute (3) Essential hypertension: Status: Acute (4) Type 2 diabetes mellitus with unspecified complications: Status: Acute DS: Summary Hospital Course Hospital Course: From H&P on day of admission This is a 61-year-old male with past medical history CKD pending dialysis, CVA, CAD status post NSTEMI about 2 weeks ago, history of nephrectomy on 10/24, hypertension, diabetes, presents to the hospital with complaints of chest pain.? Patient reports the chest pain is epigastric, nonradiating, intermittent, sharp, 7/10, worse when he lays down and resolved spontaneously.? reports the patient is planned for AV fistula placement but due to recent stroke about 2 weeks ago as well as a minor heart attack he has clearance from Cardiology Neurology before he can begin av fistula placement on dialysis.? Patient otherwise denies any headache, no fever or chills, no no palpitations, no abdominal pain nausea or vomiting, no diarrhea constipation, no urinary symptoms and no lower extremity edema. Patient reports that he used to be on omeprazole 40 mg a was reduced to 20 mg recently. On arrival To the ED patient hemodynamically stable with no significant abnormal vitals Labs are significant for WBC of9.3, hemoglobin of 8.2 which is a significant drop from August which was 10.7, medical of 24.7, creatinine of 7.95 which increased from 2.76 and 4/5, BUN of 59, troponin initially 34.3 dropped to [address] T wave abnormalities with no evidence of ACS Abdominal ultrasound pending, patient will be admitted for further management Chest pain. Initially chest pain had resolved. EKG noted to have new T-wave inversions in leads V5, V6. Patient then had recurrent episode of central chest pain. He was evaluated by Cardiology. Cardiac enzymes have remained flat. Echocardiogram showed subtle basal hypokinesis with preserved ejection fraction. His dose of carvedilol was increased to twice daily, he was started on nitro paste and heparin drip. The decision was made to transfer to [facility] for further evaluation him possible cardiac catheterization. Dose of Aggrenox and statin (had recent TIA) were continued at home doses. CKD. Patient recently underwent recent nephrectomy. Initially patient thought to have CAROLYN however after records obtained from [facility] renal function appears to be fairly close to baseline. Creatinine on November 10 was 7.3, today creatinine 7.9. Patient dose of Lasix and lisinopril were placed on hold. Initially he was started on IV fluid. IV fluid has been discontinued. He was continued on sodium bicarbonate supplementation as well as Lokelma. Case was discussed with his primary deposit refund clerk Dr. Jocelyn Ford, who plans to see him in follow up on Tuesday if he is no longer in the hospital. Approaching need for hemodialysis, has appointment for fistula formation scheduled for near future. Anemia. Likely secondary to progressing CKD following nephrectomy. No evidence of acute bleeding. B12, folic acid levels within normal limits. Recommend to monitor CBC Time Spent with Patient Time attestation: Total time spent providing and/or coordinating discharge services: Discharge coordination time: Greater than 30 minutes Quality: Safe Use of Opioids Does Pt have an Active Cancer Diagnosis on the Problem List?: No Quality: Stroke Does the patient have a stroke diagnosis?: No Physical Exam Vital Signs: Vital Signs: Last Vital Signs Temp 98.6 F 11/24/21 23:45 Pulse 69 11/25/21 17:03 Resp 19 11/25/21 15:10 BP 151/76 H 11/25/21 15:10 Pulse Ox 97 11/25/21 15:10 O2 Del Method 11/25/21 15:10 BMI result Body Mass Index 32.3 Const: General: cooperative, comfortable, no acute distress, alert and awake Nutritional Appearance: overweight Chest: Other: some pain reproducible right chest wall Resp: Effort & Inspection: normal respiratory effort and able to speak in complete sentences Cardio: Rate: regular rate Heart sounds: S1 normal heart sound present and S2 normal heart sound present GI: Other: some tenderness with deep palpation (residual per patient since nephrectomy) Palpation (GI): Soft to palpation Extrem: Other: No leg edema, able to move all 4 extremities spontaneously DS: Data Data Completed and Pending Labs on day of discharge: Laboratory Results - last 24 hr 11/25/21 11/25/21 11/25/21 00:23 00:23 00:23 WBC 9.3 RBC 2.84 L Hgb 8.2 L D Hct 24.7 L D MCV 87.0 MCH 28.9 MCHC 33.2 RDW 12.9 Plt Count 189 MPV 11.0 Immature Gran % (Auto) 0.3 Neut % (Auto) 72.2 Lymph % (Auto) 15.1 L Winn % (Auto) 10.1 Eos % (Auto) 2.1 Baso % (Auto) 0.2 Lymph # (Auto) 1.4 Winn # (Auto) 0.9 Eos # (Auto) 0.2 Baso # (Auto) 0.0 Abs Immat Gran (auto) 0.03 Absolute Neuts (auto) 6.7 Absolute Nucleated RBC 0.000 Nucleated RBC % (auto) 0.0 D-Dimer High Sensitivty Sodium 140 Potassium 3.9 Chloride 110 H Carbon Dioxide 20 L Anion Gap 14 BUN 59 H D Creatinine 7.95 H* Estim Creat Clear Calc 10.1 Estimated GFR 7 POC Glucose Random Glucose 142 H D Calcium 8.2 L Ferritin Total Bilirubin 0.3 Direct Bilirubin 0.2 AST 10 ALT 11 Alkaline Phosphatase 79 D Troponin I High Sens 34.3 D Total Protein 5.7 L Albumin 3.0 L Lipase 41 Vitamin B12 Folate COVID-19 (MONY) COVID-[employer] Clin Com 11/25/21 11/25/21 11/25/21 00:24 02:11 05:39 WBC RBC Hgb Hct MCV MCH MCHC RDW Plt Count MPV Immature Gran % (Auto) Neut % (Auto) Lymph % (Auto) Winn % (Auto) Eos % (Auto) Baso % (Auto) Lymph # (Auto) Winn # (Auto) Eos # (Auto) Baso # (Auto) Abs Immat Gran (auto) Absolute Neuts (auto) Absolute Nucleated RBC Nucleated RBC % (auto) D-Dimer High Sensitivty 749 Sodium Potassium Chloride Carbon Dioxide Anion Gap BUN Creatinine Estim Creat Clear Calc Estimated GFR POC Glucose Random Glucose Calcium Ferritin Total Bilirubin Direct Bilirubin AST ALT Alkaline Phosphatase Troponin I High Sens 32.0 Total Protein Albumin Lipase Vitamin B12 Folate COVID-19 (MONY) Negative COVID-19 Clin Com See Note 11/25/21 11/25/21 11/25/21 06:55 06:55 09:53 WBC RBC Hgb Hct MCV MCH MCHC RDW Plt Count MPV Immature Gran % (Auto) Neut % (Auto) Lymph % (Auto) Winn % (Auto) Eos % (Auto) Baso % (Auto) Lymph # (Auto) Winn # (Auto) Eos # (Auto) Baso # (Auto) Abs Immat Gran (auto) Absolute Neuts (auto) Absolute Nucleated RBC Nucleated RBC % (auto) D-Dimer High Sensitivty Sodium Potassium Chloride Carbon Dioxide Anion Gap BUN Creatinine Estim Creat Clear Calc Estimated GFR POC Glucose 94 Random Glucose Calcium Ferritin 255 H Total Bilirubin Direct Bilirubin AST ALT Alkaline Phosphatase Troponin I High Sens Total Protein Albumin Lipase Vitamin B12 1065 H Folate 8.7 COVID-19 (MONY) [employer] 11/25/21 11/25/21 10:44 14:50 WBC RBC Hgb Hct MCV MCH MCHC RDW Plt Count MPV Immature Gran % (Auto) Neut % (Auto) Lymph % (Auto) Winn % (Auto) Eos % (Auto) Baso % (Auto) Lymph # (Auto) Winn # (Auto) Eos # (Auto) Baso # (Auto) Abs Immat Gran (auto) Absolute Neuts (auto) Absolute Nucleated RBC Nucleated RBC % (auto) D-Dimer High Sensitivty Sodium 141 Potassium 4.2 Chloride 112 H Carbon Dioxide 19 L Anion Gap 14 BUN 58 H Creatinine 7.99 H* Estim Creat Clear Calc 10.1 Estimated GFR 7 POC Glucose Random Glucose 97 Calcium 7.9 L Ferritin Total Bilirubin Direct Bilirubin AST ALT Alkaline Phosphatase Troponin I High Sens 33.4 Total Protein Albumin Lipase Vitamin B12 Folate COVID-19 (MONY) [employer]Goowy19 [employer] Discharge Plan Discharge Patient Disposition: Xfer Acute Care Hospital Discharge Diagnosis: Chronic kidney disease Chest pain Referrals: [facility] [Primary Care Provider] - 1 Week Discharge Medications: New heparin(porcine) in 0.45% NaCl 25,000 unit/250 mL Parenteral Solution 25,000 unit continuous IV infusion .Q0M Qty: 6000 0RF Nitro-Bid 2 % Ointment 0.5 inch transdermal RQ6H WHILE AWAKE Qty: 30 0RF Continued aspirin-dipyridamole 25-200 mg capsule, ER multiphase 12 hr 1 cap PO BID clonazepam 1 mg tablet 1 tab PO BID cyanocobalamin (vitamin B-12) 1,000 mcg tablet 1 tab PO QAM hydralazine 25 mg tablet 3 tab PO TID omeprazole 40 mg capsule,delayed release(DR/EC) 1 cap PO BID oxycodone-acetaminophen 10-325 mg tablet 1 tab PO Q4H PRN (Reason: severe pain) tamsulosin 0.4 mg capsule 1 cap PO QPM sodium bicarbonate 650 mg tablet 2 tab PO BID diltiazem HCl [Cartia XT] 300 mg capsule,extended release 24hr 1 cap PO QAM alcohol swabs [Alcohol Prep Pads] Pads, Medicated 1 pad TOPICAL TID ergocalciferol (vitamin D2) 1,250 mcg (50,000 unit) capsule 1 cap PO QWEEK zolpidem 10 mg tablet 1 tab PO BEDTIME albuterol sulfate [ProAir HFA] 90 mcg/actuation HFA aerosol inhaler 2 puff PO Q4-6H PRN (Reason: Shortness Of Breath) clotrimazole 1 % cream 1 appl topical BID ipratropium bromide 21 mcg (0.03 %) spray,non-aerosol 2 spray intranasal TID levothyroxine 112 mcg tablet 1 tab PO QAM rosuvastatin 10 mg tablet 1 tab PO BEDTIME ferrous fumarate 324 mg (106 mg iron) tablet 1 tab PO DAILY omega-3 acid ethyl esters 1 gram capsule 2 cap PO BID insulin glargine [Lantus Solostar U-100 Insulin] 100 unit/mL (3 mL) insulin pen 15 unit subcut DAILY diclofenac sodium 1 % gel 2 g topical BID PRN (Reason: pain) Lokelma 5 gram powder in packet 1 packet PO DAILY Changed carvedilol 12.5 mg tablet 12.5 mg PO BID Qty: 1 0RF Held furosemide 40 mg tablet 1 tab PO QAM Hold Instructions: Held due to renal disease glipizide 10 mg tablet 1 tab PO BID Hold Instructions: On hold while inpatient lisinopril 40 mg tablet 1 tab PO QPM Hold Instructions: Held due to elevation in renal function No Action (DME) FreeStyle Lite Strips Strip Not Applicable (DME) pen needle, diabetic [Pentips] 32 gauge x /32 needle MISCELLANEOUS QID Discharge Orders: Discharge Order (Routine); Ordered 11/25/21 Ordered By: Flavia Gill Diet: Regular diet Activity on Discharge: As tolerated Stand Alone Forms: Patient Portal Discharge page Care Plan Goals: See below Health Concerns: See below Plan of Treatment: Chest pain-associated with new T-wave inversions. Started on heparin drip, nitro paste, dose of for carvedilol increased to twice daily. On Aggrenox, statin at baseline Plan to transfer to [facility] for evaluation and possible cardiac catheterization Chronic kidney disease. After obtaining records from [facility] it seems that creatinine is close to recent baseline. Will need close nephrology follow-up. Lisinopril, Lasix were placed on hold due to elevation renal function. Assessment: See discharge summary Discharge Date/Time: 11/25/21 18:35
[2021-11-25 17:53] LABS: INTERNATIONAL NORM RATIO 1.1 (0.9-1.1); Prothrombin Time 12.6 SEC (10.0-13.1)
[2021-11-25 17:56] LABS: PTT Heparin Drip 31.7 SEC (53-77.9)
--- NOTE | 2021-11-25 18:13 | PC.NURSE ---
This US/Pct received a call at 1745 from [facility] bed placement with a room assignment,pt is going to M5 room 103,Accepting DR is . Flavia the hospitalist initiated transfer.Action called at 1757 for a ALS stat transfer per Flavia BATRES. At 1807 EMS arrived for transfer.
[2021-11-25] MEDS: Heparin Sodium,Porcine/1/2NS 25,000 UNIT/250 ML IV.SOLN 10 UNIT IVCONT (18:16)
--- NOTE | 2021-11-25 18:27 | PC.NURSE ---
RN-RN report given to [place] [id number].
--- NOTE | 2021-11-25 18:27 | PC.NURSE ---
heparin drip started prior to [facility] transport based off of titration protocol @ 10mL/hr, next PTT due at 00:17.
== END 2021-11-25 18:35 | disposition short-term general hospital (02) | DRG 190 ==
LOC: HO.ED 11-25 04:43 → HO.EDOVER 11-25 06:13
PROVIDERS: Family Medicine; Admitting Provider Internal Medicine; Emergency Provider Emergency Medicine; Responsible Provider Physician Assistant Medical; Visit Provider Physician Assistant Medical
DX: I21.4 Non-ST elevation (NSTEMI) myocardial infarction (principal); E11.22 Type 2 diabetes mellitus with diabetic chronic kidney disease; D63.1 Anemia in chronic kidney disease; I12.9 Hypertensive chronic kidney disease with stage 1 through stage 4 chronic kidney disease, or unspecified chronic kidney disease; I25.10 Atherosclerotic heart disease of native coronary artery without angina pectoris; Z20.822 Contact with and (suspected) exposure to COVID-19; Z85.528 Personal history of other malignant neoplasm of kidney; K21.9 Gastro-esophageal reflux disease without esophagitis; Z86.73 Personal history of transient ischemic attack (TIA), and cerebral infarction without residual deficits; Z90.5 Acquired absence of kidney; Z79.4 Long term (current) use of insulin; Z79.890 Hormone replacement therapy; Z79.899 Other long term (current) drug therapy
CPT/HCPCS: 36415; 71046; 76775; 78580; 80048; 80076; 82607; 82728; 82746; 82947; 83690; 84484; 85025; 85379; 85610; 85730; 87635; 93005; 93306; 99285; A9540; J2270

== ENCOUNTER → 2021-12-16 09:36 | Outpatient (BNVA) | payer MEDICAID, SELFPAY | PROVIDERS: PCP Family Medicine; Referring Provider Internal Medicine Geriatric Medicine; Visit Provider Internal Medicine Cardiovascular Disease | DX: R07.2 Precordial pain (principal); I51.89 Other ill-defined heart diseases | CPT/HCPCS: 99202; 99212 ==

== ENCOUNTER 2021-12-24 13:55 | Outpatient (REF) | payer MEDICAID, SELFPAY ==
[2021-12-24 14:06] LABS: Hematocrit 24.3 % (42.0-52.0); Hemoglobin 7.9 g/dl (14.0-18.0); Mean Corpuscular HGB Conc 32.5 g/dl (31.0-36.0); Mean Corpuscular Hemoglobin 28.2 pg (27.0-33.0); Mean Corpuscular Volume 86.8 fL (80.0-98.0); Mean Platelet Volume 12.7 fL (9.4-12.4); Platelet Count 181 X10*3/uL (160-400); Red Cell Distribution Width 13.2 % (11.0-16.0); White Blood Count 7.7 X10*3/uL (4.8-10.8)
[2021-12-24 14:26] LABS: Alanine Aminotransferase 9 U/L (0-40); Albumin Level 3.1 g/dL (3.5-5.0); Alkaline Phosphatase 82 U/L (39-117); Anion Gap 10 (12-20); Aspartate Amino Transferase 13 U/L (5-37); Bilirubin Direct < 0.2 mg/dL (0.0-0.5); Bilirubin Total 0.2 mg/dL (0.0-1.0); Blood Urea Nitrogen 41 mg/dL (9-16); Calcium 8.1 mg/dL (8.4-10.2); Carbon Dioxide 30 mmol/L (22-29); Chloride 102 mmol/L (96-108); Cholesterol 125 mg/dL; Estimated Glomerular Filt Rate 8; Glucose Random 186 mg/dL (60-115); HDL Cholesterol 27 mg/dL; LDL Cholesterol Calculated 79 mg/dl; Potassium 3.7 mmol/L (3.3-5.1); Sodium 138 mmol/L (135-145); Total Protein 5.7 g/dL (6.5-8.0); Triglycerides 99 mg/dL
[2021-12-24 14:43] LABS: Free T4 (Free Thyroxine) 1.19 ng/dL (0.71-1.85); Thyroid Stimulating Hormone 2.11 uIU/mL (0.32-4.0); Vitamin D 25-OH Total 23.4 ng/mL (>30)
[2021-12-24 15:30] LABS: Folate 9.1 ng/mL (> or = 4.0); Vitamin B12 953 pg/mL (200-900)
== END 2021-12-24 13:56 | disposition home or self-care (01) ==
LOC: HO.LNP 13:55
PROVIDERS: Visit Provider Family Medicine
DX: E11.22 Type 2 diabetes mellitus with diabetic chronic kidney disease (principal); N18.9 Chronic kidney disease, unspecified
CPT/HCPCS: 80048; 80061; 80076; 82306; 82607; 82746; 84134; 84439; 84443; 85027

== ENCOUNTER → 2021-12-28 07:46 | Outpatient (REF) | payer MEDICAID, SELFPAY ==
--- NOTE | ~2021-12-28 | NM_ITS ---
Lexiscan Myocardial perfusion study Indication: Coronary artery disease, assess for ischemia Technique: The patient was brought in for a Lexiscan perfusion study on 12/28/2021 and was injected 0.4 mg of Lexiscan intravenously. Within a minute of this injection 30 mCi of sestamibi was given intravenously. Images were obtained using the SPECT gamma camera interlaced with the gating device. Images were obtained in supine position. Resting perfusion study was performed on 12/30/2021. Patient was administered 30 mCi of sestamibi intravenously at rest. Images were then obtained in supine position. Total DLP 88mGy-cm. Images were processed with the software and compared side to side in short axis, horizontal long axis and vertical long axis views. Findings: Raw acquisition reviewed. The stress perfusion study showed moderate to severely reduced tracer uptake along the basal to mid inferolateral wall. There is some improvement with CT attenuation correction that could indicate components of diaphragmatic attenuation artifact. The gated study shows low normal LV systolic function with calculated LVEF of 53%. LV cavity is normal in size. The gated study diminished contractility along the inferolateral wall. Resting study shows diminished tracer uptake along the basal to mid inferolateral wall. There is improvement with CT attenuation correction and could indicate components of diaphragmatic attenuation artifact. Gating at rest reveals ejection fraction at 54%; diminished contractility along the inferior/inferolateral wall. The findings are consistent with fixed defect along the basal to mid inferolateral wall; minimal reversibility. NM/NM el perf SPECT rest & str Impression: 1. Myocardial perfusion imaging study shows prior infarct in the basal to mid inferolateral wall; minimal ischemia. 2. Gated LVEF is 53% during stress and 54% during rest. 3. Transient ischemic dilatation not present. EKG component of the test reported separately.
--- NOTE | 2021-12-28 07:48 | CA_ITS ---
Acquisition Time: 2021-12-28 08:15:07 Total Exercise Time: 00:02:00 Test Indications: CP Medications: SEE CHART Protocol: LEXISCAN Max HR: 079 BPM 50% of Pred: 158 BPM Max BP: 138/068 mmHG Max Work Load: 1.0 METS Pharmacological stress test with Lexiscan injection, while sitting and kicking his legs, without anginal symptoms, without arrythmia, with normotensive response to injection, with nondiagnostic EKG for ischemia. Nuclear images pending. Test reviewed with Dr Guy. Referred By: Jose Guy Overread By: GRAY MOORE
== END ==
LOC: HO.CARD 07:46
PROVIDERS: PCP Family Medicine; Visit Provider Internal Medicine Cardiovascular Disease
DX: R07.2 Precordial pain (principal)
CPT/HCPCS: 78452; 93017; A9500; J0280; J2785

== ENCOUNTER → 2022-01-27 12:45 | Outpatient (BNVA) | payer MEDICAID, SELFPAY | PROVIDERS: Visit Provider Surgery | DX: Z12.11 Encounter for screening for malignant neoplasm of colon (principal) | CPT/HCPCS: 99212 ==

== ENCOUNTER 2022-02-23 05:58 | Day surgery (SDC) | payer MEDICAID, SELFPAY ==
--- NOTE | 2022-02-22 09:20 | P.CONAN_ITS ---
Documented by User: Xenia Deutsch NP 02/22/22 09:32 HPI - Anesthesia Eval Consult details Narrative: 61yo M for Colonoscopy Cardiac cleared ESRD with HD on [facility] Active Problems Active Problems: All Active Problems (Updated 01/27/22 @ 13:13 by Michael Montgomery MD) Chest pain (Acute) Acute kidney injury superimposed on CKD (Acute) Diastolic dysfunction (Acute) Colon cancer screening (Acute) Past Medical History Medical History Asthma CAD (coronary artery disease) Colon cancer screening CVA (cerebral vascular accident) Diabetes End stage renal disease Essential hypertension Hypertension Non-cardiac chest pain Normocytic anemia Type 2 diabetes mellitus with unspecified complications Family History Family History Other No family history of coronary artery disease Surgical History Surgical History H/O neck surgery History of bladder surgery History of nephrectomy Hx of colonoscopy Stented coronary artery Social History Social History Are you a primary care tech to a significant other at home: No Do you presently have visiting nurse or other home services: 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 If so, by whom?: No Are you DNR?: No Advance Directives: Yes (will bring DOS) Advance Directives Information Provided: Yes Advance Directives on File: No service: No Current occupational status: disabled Meds Allergies Allergy/AdvReac Type Severity Reaction Status Date / Time No Known Allergies Allergy Verified 02/23/22 06:14 Home Medications Medication Instructions Recorded Confirmed Last Taken Type albuterol sulfate 90 mcg/actuation 2 puff PO Q4-6H PRN Shortness Of 11/25/21 02/18/22 Unknown History aerosol inhaler (ProAir HFA) Breath alcohol swabs (Alcohol Prep Pads) 1 pad topical TID 11/25/21 02/18/22 Unknown History blood sugar diagnostic (FreeStyle 11/25/21 02/18/22 Unknown History Lite Strips) clotrimazole 1 % topical cream 1 appl topical BID 11/25/21 02/18/22 Unknown History diclofenac sodium 1 % topical gel 2 g topical BID PRN pain 11/25/21 02/18/22 Unknown History insulin glargine 100 unit/mL (3 25 unit subcut DAILY 11/25/21 02/23/22 02/21/22 History mL) subcutaneous pen (Lantus Solostar U-100 Insulin) ipratropium bromide 21 mcg (0.03 2 spray intranasal TID 11/25/21 02/18/22 Unknown History %) nasal spray omega-3 acid ethyl esters 1 gram 2 cap PO BID 11/25/21 02/23/22 02/18/22 History capsule oxycodone-acetaminophen 10 mg-325 1 tab PO Q4H PRN severe pain 11/25/21 02/23/22 02/21/22 History mg tablet pen needle, diabetic 32 gauge x 11/25/21 02/18/22 Unknown History (Pentips) sodium zirconium cyclosilicate 5 1 packet PO DAILY 11/25/21 02/18/22 Unknown History gram oral powder packet (Lokelma) aspirin 81 mg tablet,delayed 81 mg PO DAILY 12/16/21 02/23/22 02/23/22 05:30 History release (Adult Aspirin Regimen) carvedilol 12.5 mg tablet 25 mg PO BID 12/16/21 02/18/22 02/23/22 05:30 History clonazepam 1 mg tablet 1 tab PO BID 12/16/21 02/18/22 Unknown History cyanocobalamin (vitamin B-12) 1 tab PO QAM 12/16/21 02/18/22 Unknown History 1,000 mcg tablet ergocalciferol (vitamin D2) 1,250 1,250 mcg PO QWEEK 12/16/21 02/18/22 Unknown History mcg (50,000 unit) capsule furosemide 40 mg tablet 40 mg PO QAM 12/16/21 02/18/22 Unknown History hydralazine 25 mg tablet 75 mg PO TID 12/16/21 02/18/22 02/23/22 05:30 History levothyroxine 112 mcg tablet 112 mcg PO QAM 12/16/21 02/18/22 02/23/22 05:30 History omeprazole 40 mg capsule,delayed 40 mg PO BID 12/16/21 02/18/22 02/23/22 05:30 History release rosuvastatin 10 mg tablet 10 mg PO BEDTIME 12/16/21 02/18/22 Unknown History tamsulosin 0.4 mg capsule 0.4 mg PO QPM 12/16/21 02/18/22 Unknown History zolpidem 10 mg tablet 10 mg PO BEDTIME 12/16/21 02/18/22 Unknown History Exam Exam Date and Time: February 22, 2022919 Height,Weight and Vital Signs: Height 5 ft 5 in Weight 82 kg Airway Adult Head Mouth w/Numbe Teeth: 1. Missing Assessment and Plan Assessment Anesthesia Assessment: Chart Reviewed Documented by User: Felipa Salmon MD 02/23/22 07:28 [facility] Past Medical History Medical History Asthma CAD (coronary artery disease) Colon cancer screening CVA (cerebral vascular accident) Diabetes End stage renal disease Essential hypertension Hypertension Non-cardiac chest pain Normocytic anemia Type 2 diabetes mellitus with unspecified complications Family History Family History Other No family history of coronary artery disease Surgical History Surgical History H/O neck surgery History of bladder surgery History of nephrectomy Hx of colonoscopy Stented coronary artery History of Problems with Anesthesia: No Social History Social History Are you a primary care tech to a significant other at home: No Do you presently have visiting nurse or other home services: 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 If so, by whom?: No Are you DNR?: No Advance Directives: Yes (will bring DOS) Advance Directives Information Provided: Yes Advance Directives on File: No service: No Current occupational status: disabled Meds Allergies Allergy/AdvReac Type Severity Reaction Status Date / Time No Known Allergies Allergy Verified 02/23/22 06:14 Home Medications Medication Instructions Recorded Confirmed Last Taken Type albuterol sulfate 90 mcg/actuation 2 puff PO Q4-6H PRN Shortness Of 11/25/21 02/18/22 Unknown History aerosol inhaler (ProAir HFA) Breath alcohol swabs (Alcohol Prep Pads) 1 pad topical TID 11/25/21 02/18/22 Unknown History blood sugar diagnostic (FreeStyle 11/25/21 02/18/22 Unknown History Lite Strips) clotrimazole 1 % topical cream 1 appl topical BID 11/25/21 02/18/22 Unknown History diclofenac sodium 1 % topical gel 2 g topical BID PRN pain 11/25/21 02/18/22 Unknown History insulin glargine 100 unit/mL (3 25 unit subcut DAILY 11/25/21 02/23/22 02/21/22 History mL) subcutaneous pen (Lantus Solostar U-100 Insulin) ipratropium bromide 21 mcg (0.03 2 spray intranasal TID 11/25/21 02/18/22 Unknown History %) nasal spray omega-3 acid ethyl esters 1 gram 2 cap PO BID 11/25/21 02/23/22 02/18/22 History capsule oxycodone-acetaminophen 10 mg-325 1 tab PO Q4H PRN severe pain 11/25/21 02/23/22 02/21/22 History mg tablet pen needle, diabetic 32 gauge x 11/25/21 02/18/22 Unknown History (Pentips) sodium zirconium cyclosilicate 5 1 packet PO DAILY 11/25/21 02/18/22 Unknown History gram oral powder packet (Lokelma) aspirin 81 mg tablet,delayed 81 mg PO DAILY 12/16/21 02/23/22 02/23/22 05:30 History release (Adult Aspirin Regimen) carvedilol 12.5 mg tablet 25 mg PO BID 12/16/21 02/18/22 02/23/22 05:30 History clonazepam 1 mg tablet 1 tab PO BID 12/16/21 02/18/22 Unknown History cyanocobalamin (vitamin B-12) 1 tab PO QAM 12/16/21 02/18/22 Unknown History 1,000 mcg tablet ergocalciferol (vitamin D2) 1,250 1,250 mcg PO QWEEK 12/16/21 02/18/22 Unknown History mcg (50,000 unit) capsule furosemide 40 mg tablet 40 mg PO QAM 12/16/21 02/18/22 Unknown History hydralazine 25 mg tablet 75 mg PO TID 12/16/21 02/18/22 02/23/22 05:30 History levothyroxine 112 mcg tablet 112 mcg PO QAM 12/16/21 02/18/22 02/23/22 05:30 History omeprazole 40 mg capsule,delayed 40 mg PO BID 12/16/21 02/18/22 02/23/22 05:30 History release rosuvastatin 10 mg tablet 10 mg PO BEDTIME 12/16/21 02/18/22 Unknown History tamsulosin 0.4 mg capsule 0.4 mg PO QPM 12/16/21 02/18/22 Unknown History zolpidem 10 mg tablet 10 mg PO BEDTIME 12/16/21 02/18/22 Unknown History Exam Airway Mallampati Class: III TM Dist: >3cm Neck ROM: Full Adult Head Mouth w/Numbe Teeth: 1. Missing Loose/Missing/Broken Teeth: Yes and Upper Heart: RRR Lungs: CTA Assessment and Plan Assessment Anesthesia Assessment: Anesthesia Plan Discussed Final Anesthetic Review History of Problems with Anesthesia: No NPO: Yes ASA Class: III Final Preanesthetic Review: Meds/Allgs Chart Reviewed, Consent Obtained/Reviewed and Anes Risks/Benef Reviewed Patient Risk: Intermediate Procedure Risk: Low Anesthetic Plan Anesthetic Plan: GA Disposition: Standard PACU
[2022-02-23 06:24] LABS: Glucose, Whole Blood 105 mg/dL (60-115)
[2022-02-23 06:25] VITALS: BP 146/71; PULSE 68; RESP 16; TEMP 36.9; O2SAT 98
[2022-02-23 06:38] LABS: Hematocrit 28.8 % (42.0-52.0); Hemoglobin 9.4 g/dl (14.0-18.0); Mean Corpuscular HGB Conc 32.6 g/dl (31.0-36.0); Mean Corpuscular Hemoglobin 29.3 pg (27.0-33.0); Mean Corpuscular Volume 89.7 fL (80.0-98.0); Mean Platelet Volume 10.3 fL (9.4-12.4); Platelet Count 198 X10*3/uL (160-400); Red Blood Count 3.21 X10*6/uL (4.60-5.80); Red Cell Distribution Width 14.9 % (11.0-16.0); White Blood Count 7.6 X10*3/uL (4.8-10.8)
[2022-02-23] MEDS: 0.9 % Sodium Chloride 1,000 ML 50 ML IVCONT (06:48)
[2022-02-23 06:50] LABS: Anion Gap 14 (12-20); Carbon Dioxide 24 mmol/L (22-29); Chloride 105 mmol/L (96-108); Potassium 3.6 mmol/L (3.3-5.1); Sodium 139 mmol/L (135-145)
--- NOTE | 2022-02-23 07:19 | MHC.SHP ---
Pre-Procedural Eval Section A Date of Service: 02/23/22 The patient is an INPATIENT: No Changes since office visit: No Cold of Flu in the past 2 weeks, No New Medical Problems, No Changes in Medication and No Patient answered all questions The History & Physical has been completed within 30 days and I have reviewed it.: Yes Section B Chief Complaint: screening Allergies: Allergies Allergy/AdvReac Type Severity Reaction Status Date / Time No Known Allergies Allergy Verified 02/23/22 06:14 Plan I have reviewed the history and physical and performed a pertinent physical examination on my patient. No changes have occurred unless specified.
--- NOTE | 2022-02-23 08:10 | W.PM.OPN ---
Operative Note Operative Note Date of Service: 02/23/22 Narrative: Preop diagnosis: Colon cancer screening Postop diagnosis: 1. small polyp, about 2-3 mm, hepatic flexure, removed with polypectomy forceps 2. polyp, about 5 mm, level 70, removed with hot snare 3. small polyp, 2-3 mm, at level 10 cm in rectum Procedure: Colonoscopy with polypectomy using cold forceps x 2, polypectomy with hot snare x 1 Surgeon: Michael Montgomery MD The patient is a 61-year-old male, here for screening colonoscopy. He understood the technique of the procedure. He was aware of the risks, benefits, and alternatives. He is also awaiting for a kidney transplant With a previous nephrectomy for kidney cancer. He was brought to the operating room and he was placed in left lateral decubitus position under monitored anesthesia care. a surgical time-out was done. A digital rectal exam was done and there were no palpable anal lesions. The tip of the Olympus colonoscope was gently introduced through the anal orifice advanced with insufflation all the way to the cecum. The cecum was intubated. The cecum was identified via visualization of the ileocecal valve as well as the appendiceal orifice. The cecal mucosa was unremarkable. The scope was gradually withdrawn with careful examination of the entire colonic mucosa being done with scope withdrawal. The patient had Goodbowel prep so it was unlikely that any lesion may have been missed. There was note of a small polyp about 2-3 mm in the panic flexure. This was removed using cold forceps. There was a 5 mm polyp at level 70 cm removed with hot snare . There was note of good hemostasis. There was another small polyp about 2 mm in size at the level 10 cm in the rectum. This was removed using cold forceps. There were no other lesions seen. The anal canal and anal shelf were unremarkable. The scope was then withdrawn completely with desufflation. The patient tolerated procedure well. There were no complications noted. He will be seen in the office to discuss the path report.
[2022-02-23 08:15] VITALS: BP 101/46; PULSE 66; RESP 16; TEMP 36.7; O2SAT 98
[2022-02-23 08:30] VITALS: BP 119/57; PULSE 62; RESP 18; TEMP 36.7; O2SAT 99
== END 2022-02-23 08:57 | disposition home or self-care (01) ==
PROVIDERS: Nurse Practitioner; PCP Family Medicine; Visit Provider Surgery
PROC: 0DJD8ZZ Inspection of Lower Intestinal Tract, Via Natural or Artificial Opening Endoscopic (ICD-10-PCS; CPT 45378; principal; 2022-02-23 07:30)
DX: Z12.11 Encounter for screening for malignant neoplasm of colon (principal); Z86.010 Personal history of colon polyps; D12.3 Benign neoplasm of transverse colon; D12.4 Benign neoplasm of descending colon; D12.8 Benign neoplasm of rectum; C64.9 Malignant neoplasm of unspecified kidney, except renal pelvis; Z90.5 Acquired absence of kidney; E11.22 Type 2 diabetes mellitus with diabetic chronic kidney disease; I12.0 Hypertensive chronic kidney disease with stage 5 chronic kidney disease or end stage renal disease; N18.6 End stage renal disease; Z99.2 Dependence on renal dialysis; Z79.4 Long term (current) use of insulin; Z79.82 Long term (current) use of aspirin; Z79.899 Other long term (current) drug therapy
CPT/HCPCS: 45385; 45380; 36415; 80051; 82947; 85027; 88305; J2370; J3010

== ENCOUNTER → 2022-03-11 11:12 | Outpatient (BNVA) | payer MEDICARE, MEDICAID, SELFPAY | PROVIDERS: PCP Family Medicine; Referring Provider Family Medicine; Visit Provider Surgery | DX: D12.6 Benign neoplasm of colon, unspecified (principal) | CPT/HCPCS: 99212 ==

== ENCOUNTER → 2022-03-31 15:09 | Outpatient (BNVA) | payer MEDICARE, MEDICAID, SELFPAY | PROVIDERS: PCP Family Medicine; Referring Provider Family Medicine; Visit Provider Nurse Practitioner Family | DX: I42.9 Cardiomyopathy, unspecified (principal); R07.2 Precordial pain; I21.19 ST elevation (STEMI) myocardial infarction involving other coronary artery of inferior wall; I15.1 Hypertension secondary to other renal disorders; E11.22 Type 2 diabetes mellitus with diabetic chronic kidney disease; N18.6 End stage renal disease; E78.5 Hyperlipidemia, unspecified; Z90.5 Acquired absence of kidney; Z95.5 Presence of coronary angioplasty implant and graft; Z99.2 Dependence on renal dialysis | CPT/HCPCS: 99212 ==

== ENCOUNTER → 2022-04-13 15:07 | Outpatient (REF) | payer MEDICARE, MEDICAID, SELFPAY ==
--- NOTE | 2022-04-13 15:11 | CA_ITS ---
Transthoracic Echocardiogram Patient (Last, First, Middle): Joshua Barnard, Gender: Male Date of : 1960 Age: 61 Procedure Date: 04/13/2022 Procedure Type: Transthoracic Echocardiogram Location: OP Height: 167.64 cm Weight: 82.1 kg BSA: 1.92 m2 Heart Rate: bpm BP: 115 / 62 mmHg Associate Director Qa: TO Referring MD: Tennille Guerrero CUTCH CLEANERKristin Sdet: Jose Guy MD Symptoms: I42.9 - Cardiomyopathy, unspecified Study Quality: Adequate ECG Rhythm: Sinus Conclusions: - Normal LV systolic function with LVEF of 55-60% with regional wall motion abnormality in RCA territory Findings Left Ventricle Normal left ventricular size and systolic function. There is mildly increased left ventricular wall thickness. The visually estimated ejection fraction is between 55-60%. Wall Motion Rest Echo Findings The basal inferior, mid inferior, and mid inferoseptal segments are hypokinetic. The basal inferoseptal segment is akinetic. All other scored wall segments showed normal motion. Pericardium/Pleural There is no evidence of pericardial effusion. Prior Study Comparison No significant change compared to prior study dated: 11/25/2021. Measurements 2D Linear Measurements IVSd: 1.22 0.6-0.9/0.6-1.0 cm LVIDd: 5.26 3.9-5.3/4.2-5.9 cm LVIDd Index: 2.74 2.4-3.2/2.2-3.1 cm/m2 LVIDs: 3.24 2.0-3.6 cm LVPWd: 1.23 0.7-1.1 cm LA Diam: 4.30 2.7-3.8/3.0-4.0 cm LAIDs Index: 2.24 1.5-2.3 cm/m2 LV Mass: 325.29 67-162/88-224 g LV Mass Index: 169.42 43-95/49-115 g/m2 2D Systolic Function EF 4C: 60.70 >55% EF 2C: 57.70 >55% EF BiP: 59.50 >55% Updated in Other Vendor System with Status of Final Jose Guy MD electronically signed on 04/15/2022 1:29:41 PM with status of Final
== END ==
LOC: HO.CARD 15:07
PROVIDERS: PCP Family Medicine; Visit Provider Nurse Practitioner Family
DX: I42.9 Cardiomyopathy, unspecified (principal)
CPT/HCPCS: 93308

== ENCOUNTER 2022-06-15 10:48 | Emergency (ER) | payer MEDICARE, MEDICAID, SELFPAY ==
[2022-06-15 11:12] VITALS: BP 131/69; PULSE 66; RESP 20; TEMP 36.8; O2SAT 97; BMI 29.5
[2022-06-15 11:29] LABS: MANUAL DIFF FLAG NO
[2022-06-15 11:32] LABS: Basophils Absolute Auto 0.1 X10*3/uL (0.0-0.2); Basophils Percent Auto 0.6 % (0-2); Eosinophils Absolute Auto 0.2 X10*3/uL (0.0-0.4); Eosinophils Percent Auto 2.9 % (0-4); Hematocrit 37.9 % (42.0-52.0); Hemoglobin 11.8 g/dl (14.0-18.0); Imm Gran Abs Auto 0.03 X10*3/uL (0.00-0.03); Imm Gran Pct Auto 0.4 % (0.0-0.4); Lymphocytes Absolute Auto 1.4 X10*3/uL (1.2-4.9); Mean Corpuscular HGB Conc 31.1 g/dl (31.0-36.0); Mean Corpuscular Hemoglobin 27.7 pg (27.0-33.0); Mean Platelet Volume 11.5 fL (9.4-12.4); Monocytes Absolute Auto 0.7 X10*3/uL (0.1-1.2); Monocytes Percent Auto 9.1 % (2-11); Neutrophils Absolute Auto 5.4 x10*3/uL (2.0-8.3); Platelet Count 150 X10*3/uL (160-400); Red Blood Count 4.26 X10*6/uL (4.60-5.80); Red Cell Distribution Width 16.3 % (11.0-16.0); White Blood Count 7.8 X10*3/uL (4.8-10.8)
[2022-06-15 11:50] LABS: Anion Gap 14 (12-20); Blood Urea Nitrogen 41 mg/dL (9-16); Calcium 8.6 mg/dL (8.4-10.2); Carbon Dioxide 27 mmol/L (22-29); Chloride 102 mmol/L (96-108); Creatinine Clr Calc Pharmacy 9.7; Estimated Glomerular Filt Rate 7; Glucose Random 197 mg/dL (60-115); Potassium 5.2 mmol/L (3.3-5.1); Sodium 138 mmol/L (135-145)
--- OUTSIDE RECORDS SUMMARY | 2022-06-15 19:31 | XMS_ITS | Continuity of Care Document ---
:1960 Author Organization [facility] Address [address] [place] [address]- Care Team Providers Name Role Phone Macie Link DO Primary Care Physician Encounter [facility] [place] Date(s): 04/15/22 - 04/22/22 [facility] [address] [place], [place] [address] Attending Physician: Tierra Hall MD Admitting Physician: Tierra Hall MD Referring Physician: Cameron Ferrara MD Allergies, Adverse Reactions, Alerts No Known Allergies Immunizations Given and Recorded Vaccine Date Status Refusal Reason SARS-CoV-2 (COVID-19) mRNA-1273 vaccine 10/06/21 Recorded SARS-CoV-2 (COVID-19) mRNA-1273 vaccine 04/12/21 Recorded SARS-CoV-2 (COVID-19) mRNA-1273 vaccine 08/19/20 Recorded SARS-CoV-2 (COVID-19) mRNA-1273 vaccine 07/22/20 Recorded zoster vaccine, inactivated 09/17/21 Recorded influenza virus vaccine, inactivated 02/23/21 Recorded influenza virus vaccine, inactivated 02/11/20 Recorded influenza virus vaccine, inactivated 02/20/19 Recorded influenza virus vaccine, inactivated 02/21/18 Recorded influenza virus vaccine, inactivated 02/04/17 Recorded influenza virus vaccine, inactivated 02/14/16 Recorded influenza virus vaccine, inactivated 02/28/15 Recorded influenza virus vaccine, inactivated 04/03/14 Recorded influenza virus vaccine, inactivated 03/02/11 Recorded influenza virus vaccine, inactivated 02/19/10 Recorded influenza virus vaccine, inactivated 04/13/06 Recorded influenza virus vaccine, inactivated 03/06/03 Recorded influenza virus vaccine, inactivated 06/05/02 Recorded hepatitis B adult vaccine 12/19/14 Recorded hepatitis B adult vaccine 05/22/14 Recorded hepatitis B adult vaccine 04/03/14 Recorded pneumococcal 23-valent vaccine 02/04/12 Recorded pneumococcal 23-valent vaccine 11/10/00 Recorded tetanus/diphtheria/pertussis, acel(Tdap) 02/04/12 Recorde d tetanus-diphtheria toxoids (Td) 11/10/00 Recorded Medications acetaminophen-oxycodone 325 mg-10 mg oral tablet TAKE 1 TABLET BY MOUTH EVERY 4 HOURS NEEDED FOR SEVERE PAIN (7-10 ON PAIN SCALE) Start Date: 09/06/21 Status: Orderedalbuterol CFC free 90 mcg/inh inhalation aerosol 2 puffs, Inhalation, 4 times a day, 0 Refills, Maintenance, 07/19/13 8:04:07 Start Date: 07/19/13 Status: OrderedAlcohol Prep Pads USE DIRECTED THREE TIMES DAILY Start Date: 09/06/21 Status: OrderedamLODIPine 10 mg oral tablet 10 mg, 1, tablet, By Mouth, Daily, # 30 tablet, Refills 0, Tot. Refills 0, Maintenance, 11/27/21 15:04:00 EDT, Route to Pharmacy Electronically, [facility], Partial fill upon patient request if the prescription is for a schedule II opioi... Start Date: 11/27/21 Status: Orderedaspirin 81 mg oral delayed release tablet 81 mg, 1, tablet, By Mouth, Daily, # 30 tablet, Refills 0, Tot. Refills 0, Maintenance, 11/27/21 15:02:00 EDT, Route to Pharmacy Electronically, [facility], Partial fill upon patient request if the prescription is for a schedule II opioi... Start Date: 11/27/21 Status: Orderedatorvastatin 80 mg oral tablet 0 Refills, Maintenance, 04/15/22 10:18:00 EST, Partial fill upon patient request if the prescriptionis for a schedule II opioid drug. Start Date: 04/15/22 Status: Orderedcarvedilol 12.5 mg oral tablet 12.5 mg, 1, tablet, By Mouth, 2 times a day, # 60 tablet, Refills 0, Tot. Refills 0, Maintenance, 11/27/21 15:29:00 EDT, Route to Pharmacy Electronically, [facility], Partial fill upon patient request if the prescription is for a schedul... Start Date: 11/27/21 Status: OrderedclonazePAM 1 mg oral tablet TAKE 1 TABLET BY MOUTH DAILY at bedtime Start Date: 09/06/21 Status: Orderedergocalciferol 78870 iu oral capsule TAKE 1 CAPSULE BY MOUTH ONCE WEEKLY ON TUESDAY MORNING Start Date: 09/06/21 Status: Orderedferrous fumarate 325 mg oral tablet 1 tablet = 325 mg, By Mouth, Daily, # 30 tablet, 0 Refills, Maintenance, 11/10/21 12:47:00 EDT, Tablet, [facility], Partial fill upon patient request if the prescription is for a scheduleII opioid drug., 168, cm, 11/10/21 2:19:00 EDT, H... Start Date: 11/10/21 Stop Date: 12/10/21 Status: OrderedFish Oil 1000 mg oral capsule TAKE 2 CAPSULES BY MOUTH TWICE DAILY IN THE MORNING AND EVENING Start Date: 09/06/21 Status: OrderedFreeStyle Lite Strips TEST BLOOD SUGAR 4-6 TIMES PER DAY Start Date: 09/06/21 Status: Orderedfurosemide 40 mg oral tablet Refills 0, Maintenance, 04/15/22 10:18:00 EST, Partial fill upon patient request if the prescriptionis for a schedule II opioid drug. Start Date: 04/15/22 Status: OrderedhydrALAZINE 25 mg oral tablet 75 mg, 3, tablet, By Mouth, 3 times a day, # 270 tablet, Refills 0, Tot. Refills 0, Maintenance, 11/10/21 12:44:00 EDT, Route to Pharmacy Electronically, [facility], Partial fill upon patient request if the prescription is for a schedule... Start Date: 11/10/21 Status: OrderedInsulin Glargine Inj 0.15 mL = 15 units, Subcutaneous Injection, Daily before dinner, 0 Refills, Maintenance, 11/10/21 12:43:00 EDT, Injection, Partial fill upon patient request if the prescription is for a schedule II opioid drug. Start Date: 11/10/21 Status: Orderedisopropyl alcohol 70% topical pad USE DIRECTED THREE TIMES DAILY Start Date: 09/06/21 Status: Orderedlactulose 10 gm/15 ml oral syrup 0 Refills, Maintenance, 04/15/22 10:18:00 EST, Partial fill upon patient request if the prescriptionis for a schedule II opioid drug. Start Date: 04/15/22 Status: Orderedlevothyroxine 0.112 mg oral tablet TAKE 1 TABLET BY MOUTH EVERY MORNING ON AN EMPTY STOMACH Start Date: 09/06/21 Status: Orderedomeprazole 40 mg oral enteric coated capsule 1 capsule = 40 mg, By Mouth, 2 times a day, TAKE 1 CAPSULE BY MOUTH EVERY MORNING BEFORE A MEAL, # 60 capsule, 0 Refills, Maintenance, 09/06/21 14:55:00 EDT, Suspension, [facility], Partial fill upon patient request if the prescription i... Start Date: 09/06/21 Status: OrderedPentips 32 gauge x 5/32 needle USE WITH INSULIN FOUR TIMES DAILY Start Date: 09/06/21 Status: Orderedsucralfate 1 gm oral tablet 1 Gm, 1, tablet, By Mouth, 3 times a day before meals and bedtime, # 120 tablet, Refills 0, Tot. Refills 0, Maintenance, 09/06/21 14:59:00 EDT, Route to Pharmacy Electronically, [facility], Partial fill upon patient request if the prescr... Start Date: 09/06/21 Status: Orderedtamsulosin 0.4 mg oral capsule TAKE 1 CAPSULE BY MOUTH EVERY EVENING Start Date: 09/06/21 Status: OrderedTRUEplus Lancets 33 gauge TEST BLOOD SUGAR 4-6 TIMES DAILY Start Date: 09/06/21 Status: Orderedzolpidem 10 mg oral tablet TAKE 1 TABLET BY MOUTH AT BEDTIME Start Date: 09/06/21 Status: Ordered Problem List Condition Confirmation Course Effective Dates Status Health Stat us Informant Anxiety Confirmed Active CKD stage 2 Confirmed Active Depression Confirmed Active Diabetic Confirmed Active nephropathy Hypertension Confirmed Active Low back pain Confirmed Active Neck pain Confirmed Active Proteinuria Confirmed Active cervical radicular Confirmed Active pain Sleep apnea Confirmed Active Vital Signs Most recent to oldest [Reference Range]: 1 Height 168 cm (04/15/22 10:05 AM) Weight 82.10 kg (04/15/22 10:05 AM) Oxygen Saturation [94-100 %] 98 % (04/15/22 10:05 AM) Pulse Rate [55-90 bpm] 66 bpm (04/15/22 10:05 AM) Body Mass Index [18.5-24.99 kg/m2] 29.09 kg/m2 *H* (04/15/22 10:05 AM) Blood Pressure [90-138/55-84 mm Hg] 98/50 mm Hg (04/15/22 10:05 AM) Mode of Delivery (Oxygen) Room air (04/15/22 10:05 AM) Blood pressure sites Arm, right (04/15/22 10:05 AM) Weight Obtained Via Patient/family stated (04/15/22 10:05 AM) Patient Care team information Care Team PersonnelName: Isabela Holly Position: S RN Member Role: Primary Care Nurse Name: Subha Krishna RN Position: S RN Member Role: Primary Care Nurse Name: Renetta Soriano RN Position: S RN Member Role: Primary Care Nurse Name: Riana Puentes Position: S Outreach Member Role: Lifetime Consulting Physician Name: Zenaida Last RN Position: S RN Member Role: Primary Care Nurse Name: Nilsa Gupta RN Position: S RN Member Role: Primary Care Nurse Name: Macie Link DO Position: [facility] Outreach Member Role: PCP Address: Address: [address] [place] [address] Name: Dinh Luo RN Position: S RN Member Role: Primary Care Nurse Name: Mert Cowan Position: [facility] Associate Professional Member Role: Lifetime Consulting Provider Address: Address: [address] [place] [address]- Name: Xenia Bains RN Position: S RN Member Role: Primary Care Nurse Name: Xiao Call RN Position: S RN Member Role: Primary Care Nurse Name: Jeffery Diaz MD Position: [facility] Renal MD Member Role: Lifetime Consulting Physician Address: Address: [address] [place] [address] [address] [facility], [place] [address]- Name: Jayme Nevarez RN Position: S RN Member Role: Primary Care Nurse Name: Jane Gilmore RN Position: [facility] Onco RN Member Role: Primary Care Nurse Name: Jacki Page RN, I Position: [facility] RN Member Role: Primary Care Nurse Care Team Related PersonsName: PUSHPA OCHOA Address: home [address] [place] [address] Name: MARGARITA TURNER Address: home [address] [place] [address]
--- OUTSIDE RECORDS SUMMARY | 2022-06-15 19:31 | XMS_ITS | Continuity of Care Document ---
:1960 Author Organization [facility] Address [address] [place] [id number]- Care Team Providers Name Role Phone Macie Link DO Primary Care Physician Encounter [facility] [place]): 10/20/21 - 10/20/[address] [address]- Encounter Diagnosis Abdominal pain (Final) - 10/20/21 Discharge Disposition: A-D/C Home Attending Physician: Ann Lee MD Admitting Physician: Ann Lee MD Referring Physician: Not on Staff, Referring MD Allergies, Adverse Reactions, Alerts No Known Allergies Medications acetaminophen-oxycodone 325 mg-10 mg oral tablet TAKE 1 TABLET BY MOUTH EVERY 4 HOURS NEEDED FOR SEVERE PAIN (7-10 ON PAIN SCALE) Start Date: 09/06/21 Status: OrderedAggrenox 25 mg-200 mg oral capsule, extended release 1 capsule, By Mouth, 2 times a day, 0 Refills, Maintenance, 01/03/18 8:19:58 EDT Start Date: 01/03/18 Status: Orderedalbuterol CFC free 90 mcg/inh inhalation aerosol 2 puffs, Inhalation, 4 times a day, 0 Refills, Maintenance, 07/19/13 8:04:07 Start Date: 07/19/13 Status: OrderedAlcohol Prep Pads USE DIRECTED THREE TIMES DAILY Start Date: 09/06/21 Status: OrderedclonazePAM 1 mg oral tablet TAKE 1 TABLET BY MOUTH DAILY at bedtime Start Date: 09/06/21 Status: Ordereddiltiazem 300 mg/24 hours oral capsule, extended release 300 mg, 1, capsule, By Mouth, Daily, # 30 capsule, Refills 0, Tot. Refills 0, Maintenance, 09/06/21 14:56:00 EDT, Route to Pharmacy Electronically, [facility], Partial fill upon patient request if the prescription is for a schedule II op... Start Date: 09/06/21 Status: Orderedergocalciferol 19203 iu oral capsule TAKE 1 CAPSULE BY MOUTH ONCE WEEKLY ON TUESDAY MORNING Start Date: 09/06/21 Status: OrderedFish Oil 1000 mg oral capsule TAKE 2 CAPSULES BY MOUTH TWICE DAILY IN THE MORNING AND EVENING Start Date: 09/06/21 Status: OrderedFreeStyle Lite Strips TEST BLOOD SUGAR 4-6 TIMES PER DAY Start Date: 09/06/21 Status: OrderedglipiZIDE 10 mg oral tablet TAKE 1 TABLET BY MOUTH TWICE DAILY BEFORE BREAKFAST AND BEFORE SUPPER Start Date: 09/06/21 Status: Orderedipratropium nasal 21 mcg/inh spray USE 2 SPRAYS IN EACH NOSTRIL THREE TIMES DAILY DIRECTED Start Date: 09/06/21 Status: Orderedisopropyl alcohol 70% topical pad USE DIRECTED THREE TIMES DAILY Start Date: 09/06/21 Status: OrderedLantus 100 u/ml subcutaneous solution See Instructions, 44 units Subcutaneous Injection Daily 30 days, # 10 mL, 0 Refills, Maintenance, Solution Start Date: 06/13/12 Status: Orderedlevothyroxine 0.112 mg oral tablet TAKE 1 TABLET BY MOUTH EVERY MORNING ON AN EMPTY STOMACH Start Date: 09/06/21 Status: OrderedMetoprolol Tartrate 100 mg oral tablet TAKE 1 TABLET BY MOUTH TWICE DAILY IN THE MORNING AND IN THE EVENING WITH MEALS Start Date: 09/06/21 Status: OrderedMorPHINE Inj 4 mg, Injection, IV Push Slowly, Every 5 minutes for 3 doses/times, PRN for Pain , Moderate, and SBPgreater than 100, STAT, 10/20/21 7:06:00 EDT, Stop date Limited # of times Start Date: 10/20/21 Stop Date: 10/20/21 Status: Discontinuedomeprazole 40 mg oral enteric coated capsule 1 capsule = 40 mg, By Mouth, 2 times a day, TAKE 1 CAPSULE BY MOUTH EVERY MORNING BEFORE A MEAL, # 60 capsule, 0 Refills, Maintenance, 09/06/21 14:55:00 EDT, Suspension, [facility], Partial fill upon patient request if the prescription i... Start Date: 09/06/21 Status: OrderedoxyCODONE 10 mg oral tablet 1 tablet = 10 mg, By Mouth, Every 6 hours, PRN as needed for pain, # 3 tablet, 0 Refills, Acute 10/22/21 9:52:00 EDT, 10/20/21 9:51:00 EDT, Tablet, [facility], Partial fill upon patient request if the prescription is for a schedule... Start Date: 10/20/21 Stop Date: 10/22/21 Status: OrderedPentips 32 gauge x 32 needle USE WITH INSULIN FOUR TIMES DAILY Start Date: 09/06/21 Status: Orderedrosuvastatin 40 mg oral tablet TAKE 1 TABLET BY MOUTH AT BEDTIME Start Date: 09/06/21 Status: Orderedsucralfate 1 gm oral tablet 1 Gm, 1, tablet, By Mouth, 3 times a day before meals and bedtime, # 120 tablet, Refills 0, Tot. Refills 0, Maintenance, 09/06/21 14:59:00 EDT, Route to Pharmacy Electronically, [facility], Partial fill upon patient request if the prescr... Start Date: 09/06/21 Status: Orderedtamsulosin 0.4 mg oral capsule TAKE 1 CAPSULE BY MOUTH EVERY EVENING Start Date: 09/06/21 Status: Orderedterazosin 2 mg oral capsule TAKE 1 CAPSULE BY MOUTH AT BEDTIME Start Date: 09/06/21 Status: OrderedTRUEplus Lancets 33 gauge TEST BLOOD SUGAR 4-6 TIMES DAILY Start Date: 09/06/21 Status: OrderedVitamin B-12 1000 mcg oral tablet TAKE 1 TABLET BY MOUTH EVERY MORNING Start Date: 09/06/21 Status: Orderedzolpidem 10 mg oral tablet TAKE 1 TABLET BY MOUTH AT BEDTIME Start Date: 09/06/21 Status: Ordered Problem List Condition Effective Dates Status Health Status Informant Anxiety(Confirmed) Active CKD stage 2(Confirmed) Active Depression(Confirmed) Active Diabetic nephropathy(Confirmed) Active Hypertension(Confirmed) Active Low back pain(Confirmed) Active Neck pain(Confirmed) Active Obese class I(Confirmed) Active Proteinuria(Confirmed) Active cervical radicular pain(Confirmed) Active Sleep apnea(Confirmed) Active Results Radiology Reports Exam Date Time Procedure Performing Provider Status 10/20/21 7:54 AM Chest 2 Views Frontal and Lat Do , Donnie; Au th (Verified) Notes:(Chest 2 Views Frontal and Lat) Reason For Exam: Abdominal PainRESULT: Chest 2 Views Frontal and Lat Chest 2 Views Frontal and Lat HX OF PRESENT ILLNESS: Abdominal Pain; Reason: Abdominal Pain; Clinical Question(s): Aspiration / Aspiration COMPARISON: 09/02/2021 FINDINGS: LINES AND TUBES: None. LUNGS AND PLEURA: Clear lungs. Normal pulmonary vascularity. No pleural effusion. No pneumothorax. HEART, MEDIASTINUM AND JUANA: Heart is normal in size. Normal mediastinal and hilar contour. BONES AND SOFT TISSUES: No acute abnormality. IMPRESSION: No evidence of acute abnormality. WSN: [id number] Ordering Physician: Luís Skinner Dictated By: Glenn Ha MD Dictated Date/Time: 10/20/21 7:57 am Reviewed By: Glenn Ha MD Signed By: Glenn Ha MD Signed Date/Time: 10/20/21 7:57 am Transcribed By: EDISON Transcribed Date/Time: 10/20/21 7:56 am Vital Signs Most recent to oldest 1 2 3 [Reference Range]: Height 168 cm 168 cm (10/20/21 9:08 AM) (10/20/21 6:38 AM) Weight 91 kg 91 kg (10/20/21 9:08 AM) (10/20/21 6:38 AM) Oxygen Saturation [94-100 %] 100 % 99 % 98 % (10/20/21 10:09 AM) (10/20/21 9:08 AM) (10/20/21 6: 38 AM) Pulse Rate [55-90 bpm] 62 bpm 55 bpm 59 bpm (10/20/21 10:09 AM) (10/20/21 9:08 AM) (10/20/21 6: 38 AM) Body Mass Index [18.5-24.99] 32.24 *>HHI* (10/20/21 9:08 AM) Blood Pressure [90-138/55-84 186/80 mm Hg 196/84 mm Hg 195 /82 mm Hg mm Hg] *H* *H* *H* (10/20/21 10:09 AM) (10/20/21 9:08 AM) (10/20/21 6: 38 AM) Respiratory Rate [16-30 20 br/min 18 br/min 19 br/mi n br/min] (10/20/21 10:09 AM) (10/20/21 9:17 AM) (10/20/21 9: 08 AM) Temperature [96.8-100.4 DegF] 98 DegF (10/20/21 6:38 AM) Mode of Delivery (Oxygen) Room air Room air Room a ir (10/20/21 10:09 AM) (10/20/21 9:08 AM) (10/20/21 6: 38 AM) Blood pressure sites Arm, right Arm, right (10/20/21 10:09 AM) (10/20/21 9:08 AM) Temperature Route Oral (10/20/21 6:38 AM) Weight Obtained Via Standing scale (10/20/21 6:38 AM)
--- OUTSIDE RECORDS SUMMARY | 2022-06-15 19:31 | XMS_ITS | Continuity of Care Document ---
:1960 Author Organization [facility] Address [address] [place] [id number]- Care Team Providers Name Role Phone Macie Link DO Primary Care Physician Encounter [facility] Date(s): 02/17/22 - 04/17/22 [facility] [address] [place] [id number] Attending Physician: Satish Valentine DO Admitting Physician: Satish Valentine DO Referring Physician: Macie Link DO Allergies, Adverse Reactions, Alerts No Known Allergies [...] 11/27/21 15:04:00 EDT, Route to Pharmacy Electronically, [facility], Partial fill upon patient request if the prescription is for a schedule II opioi... Start Date: 11/27/21 Status: Orderedaspirin 81 mg oral delayed release tablet 81 mg, 1, tablet, By Mouth, Daily, # 30 tablet, Refills 0, Tot. Refills 0, Maintenance, 11/27/21 15:02:00 EDT, Route to Pharmacy Electronically, [facility], Partial fill upon patient request if [...] 11/27/21 15:29:00 EDT, Route to Pharmacy Electronically, [facility], Partial fill upon patient request if the prescription is for a schedul... Start Date: 11/27/21 Status: OrderedclonazePAM 1 mg oral tablet TAKE 1 TABLET BY MOUTH DAILY at bedtime Start Date: 09/06/21 Status: Orderedergocalciferol 31105 iu oral capsule TAKE 1 CAPSULE BY MOUTH ONCE WEEKLY ON TUESDAY MORNING Start Date: 09/06/21 Status: Orderedferrous fumarate 325 mg oral tablet 1 tablet = 325 mg, By Mouth, Daily, # 30 tablet, 0 Refills, Maintenance, 11/10/21 12:47:00 EDT, Tablet, [facility], Partial fill upon patient request if [...] 11/10/21 12:44:00 EDT, Route to Pharmacy Electronically, [facility], Partial fill upon patient request if [...] 0 Refills, Maintenance, 09/06/21 14:55:00 EDT, Suspension, [facility], Partial fill upon patient request if [...] 09/06/21 14:59:00 EDT, Route to Pharmacy Electronically, [facility], Partial fill upon patient request if [...] Confirmed Active pain Sleep apnea Confirmed Active Patient Care team information Care Team PersonnelName: Isabela Holly Position: [facility] RN Member Role: Primary Care Nurse Name: Subha Krishna RN Position: [facility] RN Member Role: Primary Care Nurse Name: Renetta Soriano RN Position: [facility] RN Member Role: Primary Care Nurse Name: Riana Puentes Position: [facility] Outreach Member Role: Lifetime Consulting Physician Name: Zenaida Last RN Position: S RN Member Role: Primary Care Nurse Name: Nilsa Gupta RN Position: S RN Member Role: Primary Care Nurse Name: Macie Link DO Position: [facility] Outreach Member Role: PCP Address: Address: [address] [place] [address]- [place] Name: Dinh Luo RN Position: S RN Member Role: Primary Care Nurse Name: Mert Cowan Position: [facility] Associate Professional Member Role: Lifetime Consulting Provider Address: Address: [address] [place] [address]- [place] Name: Xenia Bains RN Position: [facility] RN Member Role: Primary Care Nurse Name: Xiao Call RN Position: [facility] RN Member Role: Primary Care Nurse Name: Jeffery Diaz MD Position: [facility] Renal MD Member Role: Lifetime Consulting Physician Address: Address: [address] [facility] [address] [facility] [place] [address]- [place] Name: Jayme Nevarez RN Position: [facility] RN Member Role: Primary Care Nurse Name: Jane Gilmore RN Position: [facility] Onco RN Member Role: Primary Care Nurse Name: Jacki Page RN, I Position: [facility] RN Member Role: Primary Care Nurse Care Team Related PersonsName: CAITLIN OCHOASOL Address: home [address] [place] [address] Name: MARGARITA TURNER Address: home [address] [address]
--- OUTSIDE RECORDS SUMMARY | 2022-06-15 19:31 | XMS_ITS | Continuity of Care Document ---
:1960 Author Organization [facility] Address [address] [place] [address]- Care Team Providers Name Role Phone Macie Link DO Primary Care Physician Encounter [facility] Date(s): 09/02/21 - 09/06/[address] [address]- Encounter Diagnosis CAROLYN (acute kidney injury) (Final) - 09/02/21 Discharge Disposition: A-D/C Home Attending Physician: Princess Josue MD Admitting Physician: Ravindra Chavez MD Referring Physician: Not on Staff, Referring [...] hours oral capsule, extended release 300 mg, CD Capsule, By Mouth, 09/06/21 9:00:00 EDT Start Date: 09/06/21 Stop Date: 09/06/21 Status: Completeddiltiazem 300 mg/24 hours oral capsule, extended release 300 mg, 1, capsule, By Mouth, Daily, # 30 capsule, Refills 0, Tot. Refills 0, Maintenance, 09/06/21 14:56:00 EDT, Route to Pharmacy Electronically, [facility], Partial fill upon patient request if the prescription is for a schedule II op... Start Date: 09/06/21 Status: Orderedergocalciferol 04353 iu oral capsule TAKE 1 CAPSULE BY MOUTH ONCE WEEKLY ON Tuesday Start Date: 09/06/21 Status: OrderedFish Oil 1000 [...] AN EMPTY STOMACH Start Date: 09/06/21 Status: Orderedmetoprolol 100 mg oral tablet 100 mg, Tablet, By Mouth, 09/06/21 9:00:00 EDT Start Date: 09/06/21 Stop Date: 09/06/21 Status: CompletedMetoprolol Tartrate 100 mg oral tablet TAKE 1 TABLET BY MOUTH TWICE DAILY IN THE MORNING AND IN THE EVENING WITH MEALS Start Date: 09/06/21 Status: Orderedomeprazole 40 mg oral enteric coated capsule 1 capsule = 40 mg, By Mouth, 2 times a day, TAKE 1 CAPSULE BY MOUTH EVERY MORNING BEFORE A MEAL, # 60 capsule, 0 Refills, Maintenance, 09/06/21 14:55:00 EDT, Suspension, [facility], Partial fill upon patient request if the prescription i... Start Date: 09/06/21 Status: OrderedPentips 32 gauge x 5/32 needle USE WITH INSULIN FOUR TIMES DAILY Start Date: 09/06/21 Status: OrderedPercocet-5/325 325 mg-5 mg oral tablet 2 tablet, Tablet, By Mouth, Every 4 hours, PRN for Pain , Severe, Routine, 09/02/21 21:08:00 EDT Start Date: 09/02/21 Stop Date: 09/07/21 Status: Discontinuedrosuvastatin 40 mg oral tablet TAKE 1 TABLET BY MOUTH AT BEDTIME Start Date: 09/06/21 Status: Orderedsucralfate 1 gm oral tablet 1 Gm, 1, tablet, By Mouth, 3 times a day before meals and bedtime, # 120 tablet, Refills 0, Tot. Refills 0, Maintenance, 09/06/21 14:59:00 EDT, Route to Pharmacy Electronically, [facility], Partial fill upon patient request if the prescr... Start Date: 09/06/21 Status: Orderedtamsulosin 0.4 mg oral capsule TAKE 1 CAPSULE BY MOUTH EVERY EVENING Start Date: 09/06/21 Status: Orderedterazosin 2 mg oral capsule TAKE 1 CAPSULE BY MOUTH AT BEDTIME Start Date: 09/06/21 Status: OrderedtraZODone 100 mg oral tablet TAKE 2 TABLETS BY MOUTH EVERY DAY AT BEDTIME Start Date: 09/06/21 Status: OrderedTRUEplus [...] Exam Date Time Procedure Performing Provider Status 09/02/21 10:09 AM Chest 2 Views Frontal and Lat Kary Huddleston; Au th (Verified) Notes:(Chest 2 Views Frontal and Lat) Reason For Exam: Shortness of Breath, Fever;Other:RESULT: Chest 2 Views Frontal and Lat Chest 2 Views Frontal and Lat Reason: Shortness of Breath, Fever; Clinical Question(s): Pneumonia COMPARISON: Chest radiograph 05/01/2013 FINDINGS: LINES AND TUBES: None. LUNGS AND PLEURA: Clear lungs. Normal pulmonary vascularity. No pleural effusion. No pneumothorax. HEART, MEDIASTINUM AND JUANA: Heart is normal in size. Normal upper mediastinal and hilar contour. BONES AND SOFT TISSUES: No acute abnormality. Interbody fusion hardware overlying the lower cervical spine. IMPRESSION: No acute abnormality. I have personally reviewed the images and I agree with this report. WSN: [id number] Ordering Physician: Lucero Mi Dictated By: Javon Cabrera DO Dictated Date/Time: 09/02/21 10:26 a Reviewed By: Sturat Cardenas MD Signed By: Stuart Cardenas MD Signed Date/Time: 09/02/21 10:31 am Transcribed By: EDISON Transcribed Date/Time: 09/02/21 10:12 am Vital Signs Most recent to oldest 1 2 3 [Reference Range]: Height 170.18 cm 170.18 cm 170.18 cm (09/06/21 7:34 AM) (09/05/21 8:00 PM) (09/05/21 6:55 PM) Weight 90.9 kg 90.9 kg 90.9 kg (09/04/21 3:04 PM) (09/02/21 9:22 PM) (09/02/21 7:44 P M) Oxygen Saturation [94-100 %] 97 % 99 % 98 % (09/06/21 7:34 AM) (09/05/21 8:00 PM) (09/05/21 4:30 PM) Pulse Rate [55-90 bpm] 61 bpm 61 bpm 61 bpm (09/06/21 8:21 AM) (09/06/21 8:20 AM) (09/06/21 7:3 4 AM) Body Mass Index [18.5-24.99] 31.39 31.39 *>HHI* *>HHI* (09/04/21 3:04 PM) (09/02/21 9:22 PM) Blood Pressure [90-138/55-84 mm 125/65 mm Hg 125/65 mm Hg 125/65 mm Hg Hg] (09/06/21 8:21 AM) (09/06/21 8:20 AM) (09/06/21 7:3 4 AM) Respiratory Rate [16-30 br/min] 18 br/min 18 br/min 20 br/min (09/06/21 1:02 PM) (09/06/21 7:34 AM) (09/05/21 8:00 PM) Temperature [96.8-100.4 DegF] 98.6 DegF 98.5 DegF 97 .7 DegF (09/06/21:34 AM) (09/05/21 8:00 PM) (09/05/21 4:30 PM) Liters per Minute 6 L/min 6 L/min 0 L/min (09/04/21 3:55 PM) (09/04/21 3:47 PM) (09/04/21 6:51 A M) Mode of Delivery (Oxygen) Room air Room air Room a ir (09/06/21 7:34 AM) (09/05/21 8:00 PM) (09/05/21 4:30 PM) Blood pressure sites Arm, left Arm, left Arm, left (09/06/21 7:34 AM) (09/05/21 8:00 PM) (09/05/21 11:19 AM) Temperature Route Oral Oral Oral (09/06/21 7:34 AM) (09/05/21 8:00 PM) (09/05/21 4:30 PM) Dry Weight 90.9 kg (09/02/21 9:22 PM) Weight Obtained Via Standing scale Standing scale (09/02/21 9:22 PM) (09/02/21 7:44 PM) Dry Weight Obtained Via Bed scale (09/02/21 9:22 PM)
--- OUTSIDE RECORDS SUMMARY | 2022-06-15 19:31 | XMS_ITS | Continuity of Care Document ---
:1960 Author Organization [facility] Address [address] [place] [address]- Care Team Providers Name Role Phone Macie Link DO Primary Care Physician [place] [facility] [place] 12/15/[place] - 02/17/[address] [address] Attending Physician: Cameron Ferrara MD Admitting Physician: Cameron Ferrara MD Referring Physician: Cameron Ferrara MD Allergies, [...] 11/27/21 15:04:00 EDT, Route to Pharmacy Electronically, [facility], Partial fill upon patient request if the prescription is for a schedule II opioi... Start Date: 11/27/21 Status: Orderedaspirin 81 mg oral delayed release tablet 81 mg, 1, tablet, By Mouth, Daily, # 30 tablet, Refills 0, Tot. Refills 0, Maintenance, 11/27/21 15:02:00 EDT, Route to Pharmacy Electronically, [facility], Partial fill upon patient request if the prescription is for a schedule II opioi... Start Date: 11/27/21 Status: Orderedcarvedilol 12.5 mg oral tablet 12.5 mg, 1, tablet, By Mouth, 2 times a day, # 60 tablet, Refills 0, Tot. Refills 0, Maintenance, 11/27/21 15:29:00 EDT, Route to Pharmacy Electronically, [facility], Partial fill upon patient request if the prescription is for a schedul... Start Date: 11/27/21 Status: Orderedcarvedilol 25 mg oral tablet 25 mg, 1, tablet, By Mouth, 2 times a day, # 60 tablet, Refills 0, Tot. Refills 0, Maintenance, 11/27/21 15:29:00 EDT, Route to Pharmacy Electronically, [facility], Partial fill upon patient request if the prescription is for a schedule... Start Date: 11/27/21 Status: OrderedclonazePAM 1 mg oral tablet TAKE 1 TABLET BY MOUTH DAILY at bedtime Start Date: 09/06/21 Status: Orderedergocalciferol 87379 iu oral capsule TAKE 1 CAPSULE BY MOUTH ONCE WEEKLY ON Tuesday Start Date: 09/06/21 Status: Orderedferrous fumarate 325 mg oral tablet 1 tablet = 325 mg, By Mouth, Daily, # 30 tablet, 0 Refills, Maintenance, 11/10/21 12:47:00 EDT, Tablet, [facility], Partial fill upon patient request [...] TIMES PER DAY Start Date: 09/06/21 Status: OrderedhydrALAZINE 25 mg oral tablet 75 mg, 3, tablet, By Mouth, 3 times a day, # 270 tablet, Refills 0, Tot. Refills 0, Maintenance, 11/10/21 12:44:00 EDT, Route to Pharmacy Electronically, [facility], Partial fill upon patient request [...] THREE TIMES DAILY Start Date: 09/06/21 Status: Orderedlevothyroxine 0.112 mg oral tablet TAKE 1 TABLET BY MOUTH EVERY MORNING ON AN EMPTY STOMACH Start Date: 09/06/21 Status: OrderedLokelma 5 g oral powder for reconstitution 1 pack/packet, By Mouth, Daily, do not take within 2 hours of other medications, # 30 each, 0 Refills, Maintenance, 11/10/21 12:43:00 EDT, REC Powder, [facility], Partial fill upon patient request if the prescription is for a schedule II... Start Date: 11/10/21 Status: Orderedomeprazole 40 mg oral enteric coated capsule 1 capsule = 40 mg, By Mouth, 2 times a day, TAKE 1 CAPSULE BY MOUTH EVERY MORNING BEFORE A MEAL, # 60 capsule, 0 Refills, Maintenance, 09/06/21 14:55:00 EDT, Suspension, [facility], Partial fill upon patient request [...] 09/06/21 14:59:00 EDT, Route to Pharmacy Electronically, [facility], Partial fill upon patient request if [...] cervical radicular pain(Confirmed) Active Sleep apnea(Confirmed) Active Care Team PersonnelName: Macie Link DO Address: [address], [place] [address]
--- OUTSIDE RECORDS SUMMARY | 2022-06-15 19:31 | XMS_ITS | Continuity of Care Document ---
:1960 Author Organization [facility] Address [address] [place] [address]- Care Team Providers Name Role Phone Macie Link DO Primary Care Physician Encounter [facility] Date(s): 09/11/21 - 11/30/[address] [address] Attending Physician: Romario Ford MD Admitting Physician: Romario Ford MD Referring Physician: Romario Ford MD Allergies, Adverse Reactions, Alerts No Known [...] 11/27/21 15:04:00 EDT, Route to Pharmacy Electronically, [facility], Partial fill upon patient request if the prescription is for a schedule II opioi... Start Date: 11/27/21 Status: Orderedaspirin 81 mg oral delayed release tablet 81 mg, 1, tablet, By Mouth, Daily, # 30 tablet, Refills 0, Tot. Refills 0, Maintenance, 11/27/21 15:02:00 EDT, Route to Pharmacy Electronically, [facility], Partial fill upon patient request if the prescription is for a schedule II opioi... Start Date: 11/27/21 Status: Orderedcarvedilol 12.5 mg oral tablet 12.5 mg, 1, tablet, By Mouth, 2 times a day, # 60 tablet, Refills 0, Tot. Refills 0, Maintenance, 11/27/21 15:29:00 EDT, Route to Pharmacy Electronically, [facility], Partial fill upon patient request if the prescription is for a schedul... Start Date: 11/27/21 Status: Orderedcarvedilol 25 mg oral tablet 25 mg, 1, tablet, By Mouth, 2 times a day, # 60 tablet, Refills 0, Tot. Refills 0, Maintenance, 11/27/21 15:29:00 EDT, Route to Pharmacy Electronically, [facility], Partial fill upon patient request if the prescription is for a schedule... Start Date: 11/27/21 Status: OrderedclonazePAM 1 mg oral tablet TAKE 1 TABLET BY MOUTH DAILY at bedtime Start Date: 09/06/21 Status: Orderedergocalciferol 03515 iu oral capsule TAKE 1 CAPSULE BY MOUTH ONCE WEEKLY ON Tuesday Start Date: 09/06/21 Status: Orderedferrous fumarate 325 mg oral tablet 1 tablet = 325 mg, By Mouth, Daily, # 30 tablet, 0 Refills, Maintenance, 11/10/21 12:47:00 EDT, Tablet, [facility], Partial fill upon patient [...] 11/10/21 12:44:00 EDT, Route to Pharmacy Electronically, [facility], Partial fill upon patient [...] Refills, Maintenance, 11/10/21 12:43:00 EDT, REC Powder, [facility], Partial fill upon patient request if the prescription is for a schedule II... Start Date: 11/10/21 Status: Orderedomeprazole 40 mg oral enteric coated capsule 1 capsule = 40 mg, By Mouth, 2 times a day, TAKE 1 CAPSULE BY MOUTH EVERY MORNING BEFORE A MEAL, # 60 capsule, 0 Refills, Maintenance, 09/06/21 14:55:00 EDT, Suspension, [facility], Partial fill upon patient request if the prescription i... Start Date: 09/06/21 Status: OrderedPentips 32 gauge x 5/32 needle USE WITH INSULIN FOUR TIMES DAILY Start Date: 09/06/21 Status: Orderedrosuvastatin 40 mg oral tablet TAKE 1 TABLET BY MOUTH AT BEDTIME Start Date: 09/06/21 Status: Orderedsodium bicarbonate 650 mg oral tablet 2 tablet = 1,300 mg, By Mouth, 2 times a day, for 30 days, # 120 tablet, 0 Refills, Acute 12/10/21 12:43:00 EDT, 11/10/21 12:43:00 EDT, Tablet, [facility], Partial fill upon patient request if the prescription is for a schedule II opioid... Start Date: 11/10/21 Stop Date: 12/10/21 Status: Orderedsucralfate 1 gm oral tablet 1 Gm, 1, tablet, By Mouth, 3 times a day before meals and bedtime, # 120 tablet, Refills 0, Tot. Refills 0, Maintenance, 09/06/21 14:59:00 EDT, Route to Pharmacy Electronically, [facility], Partial fill upon patient [...]
--- OUTSIDE RECORDS SUMMARY | 2022-06-15 19:31 | XMS_ITS | Continuity of Care Document ---
:1960 Author Organization [facility] Address [address] [place] [address]- Care Team Providers Name Role Phone Macie Likn DO Primary Care Physician Encounter [facility] Date(s): 05/18/22 - 05/18/[address] [id number] Discharge Disposition: A-D/C Home Attending Physician: Tierra Hall MD Admitting Physician: Tierra Hall MD Referring Physician: Tierra Hall MD Allergies, Adverse Reactions, Alerts No Known [...] 11/27/21 15:04:00 EDT, Route to Pharmacy Electronically, [facility], Partial fill upon patient request if the prescription is for a schedule II opioi... Start Date: 11/27/21 Status: Orderedaspirin 81 mg oral delayed release tablet 81 mg, 1, tablet, By Mouth, Daily, # 30 tablet, Refills 0, Tot. Refills 0, Maintenance, 11/27/21 15:02:00 EDT, Route to Pharmacy Electronically, [facility], Partial fill upon patient request if [...] 11/27/21 15:29:00 EDT, Route to Pharmacy Electronically, [facility] 3, Partial fill upon patient request if the prescription is for a schedul... Start Date: 11/27/21 Status: OrderedclonazePAM 1 mg oral tablet TAKE 1 TABLET BY MOUTH DAILY at bedtime Start Date: 09/06/21 Status: Orderedergocalciferol 64183 iu oral capsule TAKE 1 CAPSULE BY MOUTH ONCE WEEKLY ON TUESDAY MORNING Start Date: 09/06/21 Status: Orderedferrous fumarate 325 mg oral tablet 1 tablet = 325 mg, By Mouth, Daily, # 30 tablet, 0 Refills, Maintenance, 11/10/21 12:47:00 EDT, Tablet, [facility] 3, Partial fill upon patient request [...] 11/10/21 12:44:00 EDT, Route to Pharmacy Electronically, [facility] 3, Partial fill upon patient request [...] 0 Refills, Maintenance, 09/06/21 14:55:00 EDT, Suspension, [facility], Partial fill upon patient request if the prescription i... Start Date: 09/06/21 Status: OrderedPentips 32 gauge x 5/32 needle USE WITH INSULIN FOUR TIMES DAILY Start Date: 09/06/21 Status: OrderedRosuvastatin = 40 mg, By Mouth, Daily, 0 Refills, Maintenance, 05/18/22 12:20:00 EST, Partial fill upon patient request if the prescription is for a schedule II opioid drug. Start Date: 05/18/22 Status: OrderedSevelamer = 1,600 mg, By Mouth, 3 times a day, 0 Refills, Maintenance, 05/18/22 12:21:00 EST, Partial fill upon patient request if the prescription is for a schedule II opioid drug. Start Date: 05/18/22 Status: Orderedsucralfate 1 gm oral tablet 1 Gm, 1, tablet, By Mouth, 3 times a day before meals and bedtime, # 120 tablet, Refills 0, Tot. Refills 0, Maintenance, 09/06/21 14:59:00 EDT, Route to Pharmacy Electronically, [facility], Partial fill upon patient request if [...] Confirmed Active pain Sleep apnea Confirmed Active Results Radiology Reports Exam Date Time Procedure Performing Provider Status 05/18/22 12:00 AM IR End of Case Report Modified IR End of Case Report Exam Date Time Procedure Performing Provider Status 05/18/22 7:10 PM US Guide Tissue Ablation Anuja Daigle; Ambar (Verified) Notes:(US Guide Tissue Ablation) Reason For Exam: clear cell adenocarcinoma r kidney and suspicious liver lesionUS Guide Tissue Ablation Patient: TIO TURNER Study Date: 05/18/2022 Performing: Tierra Hall MD Referring: : 1960 Age: 61 Gender: MALE Indication: Kidney cancer, gastric neuroendocrine tumor, indeterminate liver lesion-metastasis suspected. RECORDS ASSOCIATE(S): Tierra Hall MD ANESTHESIA: Local anesthesia and general anesthesia TECHNIQUE: Informed consent was obtained. A sonogram of the liver was performed. A suitable access site was identified, marked, prepped, and draped in standard fashion. Local anesthesia was administered. Four grounding pads were placed on the thighs. Using ultrasound guidance, a 17-gauge coaxial introducer needle was advanced into the liver. 3 core biopsies of the lesion were obtained using 18-gauge needles. Rapid onsite assessment yielded a suspicion of a neuroendocrine neoplasm with scant cellularity therefore ablation was pursued Using ultrasound guidance, a 1530 cm long Cooltip RFA probe was advanced into the target lesion. Radiofrequency ablation was performed using impedance control for 15 minutes. Limited scans of the lesion were performed during the ablation to assess coverage of the lesion.. A target temperature of 60? C was attained. Track was ablated as the probe was removed. A post ablation scan was performed. COMPLICATIONS: The patient tolerated the procedure well and left the department in stable condition. There were no immediate complications. Impression/Findings: Small hypoechoic lesion in the right lobe in close proximity to the right portal vein. Lesion biopsied and subsequently ablated as described above. Post ablation scan demonstrates no hemorrhage. PLAN: Routine post procedure monitoring. MRI in 1 month to assess treatment response. Signed By Tierra Hall MD On 05/18/2022 19:10:07 Signed By Tierra Hall MD On 05/18/2022 19:10:07 Tierra Hall MD Equipment : [employer] ABLATION SNGL 1530 [employer] NEEDLE TEMNO 18 X 15 [employer] NEEDLE TEMNO 18 X 20 Dictated By: Tierra Hall MD Dictated Date/Time: 05/18/22 0:00 am Reviewed By: Tierra Hall MD Signed By: Tierra Hall MD Signed Date/Time: 05/18/22 7:10 pm Transcribed By: JANNY Transcribed Date/Time: 05/18/22 7:10 pm Vital Signs Most recent to oldest 1 2 3 [Reference Range]: Height 168 cm 168 cm (05/18/22 7:18 PM) (05/18/22 12:08 PM) Weight 82.0 kg (05/18/22 12:08 PM) Oxygen Saturation [94-100 98 % 100 % 96 % %] (05/18/22 7:18 PM) (05/18/22 4:45 PM) (05/18/22 4:30 PM) Pulse Rate [55-90 bpm] 70 bpm 63 bpm (05/18/22 7:18 PM) (05/18/22 11:49 AM) Blood Pressure 141/63 mm Hg 121/65 mm Hg 125/65 mm Hg [90-138/55-84 mm Hg] *H* (05/18/22 4:45 PM) ( 2 4:30 PM) (05/18/22 7:18 PM) Respiratory Rate [16-30 19 br/min 13 br/min 22 br/mi n br/min] (05/18/22 7:18 PM) *L* (05/18/22 4:3 0 PM) (05/18/22 4:45 PM) Temperature [96.8-100.4 97.5 DegF 97.4 DegF 98.1 Deg F DegF] (05/18/22 7:18 PM) (05/18/22 3:30 PM) (05/18/22 11:49 AM) Liters per Minute 5 L/min (05/18/22 3:30 PM) Mode of Delivery (Oxygen) Room air Room air Room a ir (05/18/22 7:18 PM) (05/18/22 4:45 PM) (05/18/22 4:00 PM) Blood pressure sites Arm, right Arm, right Arm, right (05/18/22 7:18 PM) (05/18/22 3:30 PM) (05/18/22 11:49 AM) Temperature Route Oral Temporal Oral (05/18/22 7:18 PM) (05/18/22 3:30 PM) (05/18/22 11:49 AM) Dry Weight 82 kg (05/18/22 12:08 PM) Hospital Progress note PADILLA Gaffney Sara: PERFORM, SIGN, VERIFY, SIGN, MODIFY Event Display: Progress Note Hospital Authored Date: [id number] Patient: TIO TURNER Age: 61 years Sex: Male : 1960 Associated Diagnoses: None Author: PADILLA Gaffney Sara Findings Narrative/Incidental Pt arrived to unit for IR procedure, npo since mn, oriented to room and call light, vss, home med review and medical daystay form completed, iv placed x 2, labs drawn and ivf started. awaiting call to procedure..PADILLA Gaffney Sara: PERFORM Event Display: Progress Note Hospital Authored Date: [id number] pt returned from procedure, vss, drsg to right abdomen c/d/i, pt denies pain, will continue to monitor. Note Susy Gavin RN: PERFORM Event Display: Discharge/Transfer Note Hospital Authored Date: [id number] Nursing Discharge Note Entered On: 05/18/2022 20:59 EST Performed On: 05/18/2022 20:58 EST by Susy Gavin RN Nursing Discharge Note 2 Discharge Time : 05/18/2022 19:58 EST Discharge Level of Care at Discharge : Home/Halfway/Foster Care Patient Left Unit Via : Wheelchair Patient Accompanied Off Unit with : Significant other DC Instructions Provided & Signed by Pt : Yes Patient Understands D/C Instructions : Yes Patient Instructions Discharge Signed : Yes Did Pt have Specialty Bed or Wound Vac : No Susy Gavin RN - 05/18/2022 20:58 Susy Ramesh RN: PERFORM Event Display: Patient Education/Instruction Authored Date: [id number] Inpatient Adult Discharge Instructions [address] [address] Name: TIO TURNER : 1960 Visit: 05/18/2022 11:36:00 Current Date: 05/18/2022 19:34 Account: [id number] Inpatient Adult Discharge Instructions We would like to thank you for allowing us to assist you with your healthcare needs. The following includes patient education materials and information regarding your injury/illness. Our entire staff strives to provide an excellent experience for our patients and their families. PLEASE ENSURE YOU FOLLOW-UP PER THE INSTRUCTIONS BELOW! ?? YOUR OPINION IS IMPORTANT TO US! Please complete the survey you may receive by mail or email. Your feedback will be used to make improvements to the healthcare experiences of our patients and their families. Surveys are administered by [employer] ?? If further treatment with your primary care physician or another doctor is recommended, it is important for you to keep the appointment. Call your primary care physician or return to the Emergency Department immediately if your condition worsens, fails to improve, or new symptoms develop. If you need to find a doctor, you can call [facility] for a referral at [phone] or toll free at [phone] or log in to [email or web address].. ?? You can view and manage your care through the patient portal or by using a health care janay of your choosing. [employer] is a website that allows you to securely view your medical information including your hospital discharge summary, office visit summaries, medications and follow-up visits. You can also request appointments, renew medications, and request access to your medical information using a health care janay of your choosing, or just ask a question. You can enroll at [email or web address] or register during your next office visit. You have been discharged from [facility], Patient Care Unit: D3B. If you have any questions regarding these instructions after you leave, please call us and we will be happy to assist you. [facility] Your Care Team Attending Physician Rafael WILEY, Tierra Consulting Providers Chloe WILEY, Felicia Hall MD, Tierra Reason for Admission CLEAR CELL ADENOCARCINOMA R KIDNEY SUSPI Your Diagnosis Lesion of liver Neuroendocrine cancer History of renal cell cancer Tests Performed Below is a partial list of the tests performed during your hospitalization. You may have had other tests and procedures not included in this list. Please discuss all test results with your provider. CBC Comprehensive Metabolic Panel GLUCOSE POC INR Magnesium Level Type and Screen US Guide Tissue Ablation Primary Care Provider Macie Link DO Advance Directive Health Care Proxy on File Yes - Health Care Proxy No qualifying data available. Discharge Vitals Temperature: 97.5 DegF Height: 168 cm Pulse Rate: 70 bpm Weight: 82 kg Respiratory Rate: 19 br/min ?? Systolic Blood Pressure:??141 mm Hg??High ?? Diastolic Blood Pressure: 63 mm Hg ?? Oxygen Saturation: 98 % ?? Studies Pending All tests and labs ordered during this hospital stay have been completed unless listed below. Pleasediscuss all pending results with your provider listed above in these instructions. ?? Pathology Tissue Request ([id number]) What to do next Instructions From Your Doctor Discharge Instructions for radiofrequency ablation of a liver tumor ?? After Your Procedure ?Once you are awake, you will go to a short-stay unit the hospital. A different nurse will monitor you there. ?You will most likely be able to eat and drink. Your family may visit you. ?When you are fully awake and are able to eat, use the restroom, and walk, you will be able to go home. ?Complications are rare. If they occur, we may need to keep you in the hospital overnight so that we can monitor you or treat you. ?Before you leave the hospital, your nurse will tell you what activities you can do, how to takecare of your incision, and other important instructions. ?? When You Get Home ?Relax at home for the rest of the day. Make sure you have a family member, friend, or caregiverto help you. You may feel drowsy or have some short-term memory loss. ?For 24 hours, do not:?- Drive a car or use machinery?- Drink alcohol?- Make important personal decisions or sign legal documents?- Be responsible for the care of another person ?There is usually only mild to moderate pain after an ablation. If your doctor says it is OK foryou to take acetaminophen (Tylenol), this should ease any discomfort you have. If your doctor expects you to have more severe pain, you will receive a prescription for a stronger pain medicine. ?Resume taking your medicines as soon as you start to eat. Take only the medicines that your doctors prescribed or approved. ?You may be given medicines to help prevent infection or stomach ulcers. Take all of your medicines as prescribed until they are gone. ?? Questions? When to Call:? Call your doctor or healthcare provider if you have ?Abdominal pain ?Fever higher than 101??F (38.3??C) or chills ?Dizziness questions or concerns. ?Vomiting ?? [facility] Radiology??staff??are also available to help. ?? Who to Call Radiology/Imaging Dr. Hall,??Interventional Radiologist......... ........................ [phone] (7 am?5pm, M-F) Radiology Department?..[phone] Procedure Scheduling ....................................... .......................................[phone] ?? After hours (between 5 p.m. and 7 a.m.), and on weekends and holidays :?? Call the [facility] Fleet Service Manager at??......................................................[phone] Ask for the??Interventional Radiologist emanations analysis technician. ?? If You Have an Emergency Go directly to the nearest Emergency Room or call 911. Do not wait to contact one of our staff. Dr. Tierra Gaona Interventional Radiology,?? [facility],?? [place] [address] ? Discharge Orders Scheduled Follow-Up Appointments Tuesday 1:00 PM EST ?? Where: [facility] You Need to Schedule the Following Appointments Follow Up with??Tierra Hall MD When??Within 1 month Why: Batool Gibson??([phone]) will schedule a liver mass protocol abdominal??MRI to evaluate treatment response in 1 month and I will follow up with you after that. Where: [address], [address] [facility] [place] [address]- Discharge Medications TIO TURNER :1960 Visit Date:05/18/2022 Medications: Please continue your medications until treatment is completed or stopped by your provider. Medications not listed below should be discontinued. Discuss any questions related to medications with your provider. What How Much When Instructions Next Dose Unchanged Albuterol (albuterol CFC free 90 mcg/ inh inhalation aerosol) 2 puff(s) Inhalation 4 times a day Unchanged Amlodipine (amLODIPine 10 mg oral tablet) 1 tab(s) Oral Daily Unchanged Aspirin (aspirin 81 mg oral delayed release tablet) 1 tab(s) Oral Daily Unchanged Atorvastatin (atorvastatin 80 mg oral tablet) Unchanged Carvedilol (carvedilol 12.5 mg oral tablet) 1 tab(s) Oral Twice a day Unchanged Clonazepam (clonazePAM 1 mg oral tablet) TAKE 1 TABLET BY MOUTH ??DAILY at bedtime ?? Unchanged Durable Medical Equipment (Alcohol Prep Pads) USE DIRECTED THREE TIMES DAILY ?? Unchanged Durable Medical Equipment (FreeStyle Lite Strips) TEST BLOOD SUGAR 4-6 TIMES PER DAY ?? Unchanged Durable Medical Equipment (Pentips 32 gauge x 5/ 32 needle) USE WITH INSULIN FOUR TIMES DAILY ?? Unchanged Durable Medical Equipment (TRUEplus Lancets 33 gauge) TEST BLOOD SUGAR 4-6 TIMES DAILY ?? Unchanged Ergocalciferol (ergocalciferol 02014 iu oral capsule) TAKE 1 CAPSULE BY MOUTH ONCE WEEKLY ON Tuesday ?? Unchanged Ferrous Fumarate (ferrous fumarate 325 mg oral tablet) 1 tab(s) Oral Daily Duration: 30 Days Unchanged Furosemide (furosemide 40 mg oral tablet) Unchanged hydrALAZINE (hydrALAZINE 25 mg oral tablet) 3 tab(s) Oral 3 times a day Unchanged Insulin Glargine (Insulin Glargine Inj) 15 unit(s) Subcutaneous Injection Daily before dinner Unchanged Isopropyl Alcohol Topical (isopropyl alcohol 70% topical pad) USE DIRECTED THREE TIMES DAILY ?? Unchanged Lactulose (lactulose 10 gm/ 15 ml oral syrup) Unchanged Levothyroxine (levothyroxine 0.112 mg oral tablet) TAKE 1 TABLET BY MOUTH EVERY MORNING ON AN EMPTY STOMACH ?? Unchanged Lucas-3 Polyunsaturated Fatty Acids (Fish Oil 1000 mg oral capsule) TAKE 2 CAPSULES BY MOUTH TWICE DAILY IN THE MORNING AND EVENING ?? Unchanged Omeprazole (omeprazole 40 mg oral enteric coated capsule) 1 capsule Oral Twice a day TAKE 1 CAPSULE BY MOUTH EVERY MORNING BEFORE A MEAL ?? Unchanged Oxycodone / Acetaminophen (acetaminophen-oxycodone 325 mg-10 mg oral tablet) TAKE 1 TABLET BY MOUTH EVERY 4 HOURS NEEDED FOR SEVERE PAIN (7-10 ON PAIN SCALE) ?? Unchanged Rosuvastatin 40 Milligram Oral Daily Unchanged Sevelamer 1,600 Milligram Oral 3 times a day Unchanged Sucralfate (sucralfate 1 gm oral tablet) 1 tab(s) Oral 3 times a day before meals and bedtime Unchanged Tamsulosin (tamsulosin 0.4 mg oral capsule) TAKE 1 CAPSULE BY MOUTH EVERY EVENING ?? Unchanged Zolpidem (zolpidem 10 mg oral tablet) TAKE 1 TABLET BY MOUTH AT BEDTIME ?? Test Results Below is a partial list of the most recent Laboratory test results done prior to this discharge. You may have had other tests and procedures not included in this list. Please discuss all test results with your provider. CBC (05/18/2022) ???WBC - 8.9 k/mm3???RBC - 3.92 m/mm3???Hgb - 10.8 Gm/dL???Hct - 34.3 %???MCV - 87.5 femtoliters???MCH - 27.6 pg???MCHC - 31.5 g/dL???Platelet Count - 172 k/mm3???RDW-SD - 42.7 femtoliters???MPV - 11.9femtoliters???Nucleated RBC (Automated) - 0.0 #/100 WBC'S???Abs. NRBC - 0.0 k/mm3 Comprehensive Metabolic Panel (05/18/2022) ???Sodium - 142 mmol/L???Potassium - 5.2 mmol/L???Chloride - 104 mmol/L???Bicarbonate Level - 26 mmol/L???Anion Gap - 12???Glucose Level - 114 mg/dL???BUN - 40 mg/dL???Creatinine-Blood - 7.7 mg/dL???Estimated GFR Creatinine - 7 ML/MIN/1.73 M2???Calcium - 9.3 mg/dL???Protein, Total - 6.9 Gm/dL???Albumin - 4.2 Gm/dL???AG Ratio - 1.6???Alkaline Phosphatase - 110 units/L???AST (SGOT) - 14 units/L???ALT (SGPT) - 15 units/L???Bilirubin, Total - 0.3 mg/dL GLUCOSE POC (05/18/2022) ???Glucose, POC - 132 mg/dL INR (05/18/2022) ???INR - 1.1???Protime (PT) - 11.0 seconds Magnesium Level (05/18/2022) ???Magnesium - 2.2 mg/dL Type and Screen (05/18/2022) ???Blood Type - O Positive???Antibody Screen - Negative Allergies (NKA means No Known Allergies) NKA Problems Active Problems??(10) Anxiety?? cervical radicular pain?? CKD stage 2?? Depression?? Diabetic nephropathy?? Hypertension?? Low back pain?? Neck pain?? Proteinuria?? Sleep apnea?? Education Materials Below is the list of Educational Leaflet Providered with your Discharge Instructions. Valuables and Belongings I fully understand and agree that [facility] accepts no responsibility for all my personal property including clothing, toilet articles, radios, jewelry, dentures, hearing aids, rings, money, or any other property that is in my possession or is brought to me after admission. I understand certain valuables may be placed in a hospital safe for a short period of time. I understand that the hospital is not liable for loss or damage due to accident, fire, or other natural occurrence while said property is in the safe. I accept full responsibility for any personal property that I keep with me, and will not hold the hospital responsible in case of loss or disappearance. I acknowledge that i have been encouraged to send valuables and belongings home. ? Other Discharge Information ? Pulmonary Rehab Status?? Pulmonary Rehab Discharge Status?? Respiratory Rate: 19 br/min ? Common Emergency Awareness Tips IS IT A STROKE? Act FAST and Check for these signs: FACE Does the face look uneven? ARM Does one arm drift down? SPEECH Does their speech sound strange? TIME Call at any sign of stroke ?? Heart Attack Signs Chest discomfort: Most heart attacks involve discomfort in the center of the chest and lasts more than a few minutes, or goes away and comes back. It can feel like uncomfortable pressure, squeezing, fullness or pain. Discomfort in upper body: Symptoms can include pain or discomfort in one or both arms, back, neck, jaw or stomach. Shortness of breath: With or without discomfort. Other signs: Breaking out in a cold sweat, nausea, or lightheaded. Remember, MINUTES DO MATTER. If you experience any of these heart attack warning signs, call to get immediate medical attention! ?? Smoking can increase your chances of developing chronic health problems and can cause harmful effects to other family members in your house. If you smoke, you are strongly encouraged to quit. Please call [facility] Link at [phone] or [phone] ([phone]) or log in to [email or web address] for referrals to smoking cessation programs. ?? The National Suicide Prevention Hotline is available 20/12 if you or someone you know needs to find areason to keep living. By calling 6-414-643Chef Dovunque (3461) you'll be connected to a skilled, trained counselor at a crisis center in your area. INPATIENT DISCHARGE INSTRUCTIONS SIGNATURE TIO VAZQUEZ Location:[facility] Registration Date and Time:05/18/2022 11:36 EST Primary Care Physician: Macie Link DO, TIO PARKER, have received the above patient education materials/instructions and have verbalized understanding. If ambulance or transport services are being used I further acknowledge being given a choice of service. ?? If you need to contact me, please call me at this number: . Patient/Used Car Renovator Name: Patient/Used Car Renovator Signature: Relationship to Patient: Witness Name/Signature: Date: Event Display: IR End of Case Report US Guidance for ablation of tissue of Unspecified body region Tierra Hall MD: PERFORM, TRANSCRIBE, VERIFY, VERIFY Event Display: Result: Authored Date: [id number] Patient: TIO TURNER Study Date: 05/18/2022 Performing: Tierra Hall MD Referring: : 1960 Age: 61 Gender: MALE Indication: Kidney cancer, gastric neuroendocrine tumor, indeterminate liver lesion-metastasis suspected. RECORDS ASSOCIATE(S): Tierra Hall MD ANESTHESIA: Local anesthesia and general anesthesia TECHNIQUE: Informed consent was obtained. A sonogram of the liver was performed. A suitable access site was identified, marked, prepped, and draped in standard fashion. Local anesthesia was administered. Four grounding pads were placed on the thighs. Using ultrasound guidance, a 17-gauge coaxial introducer needle was advanced into the liver. 3 core biopsies of the lesion were obtained using 18-gauge needles. Rapid onsite assessment yielded a suspicion of a neuroendocrine neoplasm with scant cellularity therefore ablation was pursued Using ultrasound guidance, a 1530 cm long Cooltip RFA probe was advanced into the target lesion. Radiofrequency ablation was performed using impedance control for 15 minutes. Limited scans of the lesion were performed during the ablation to assess coverage of the lesion.. A target temperature of 60? C was attained. Track was ablated as the probe was removed. A post ablation scan was performed. COMPLICATIONS: The patient tolerated the procedure well and left the department in stable condition. There were no immediate complications. Impression/Findings: Small hypoechoic lesion in the right lobe in close proximity to the right portal vein. Lesion biopsied and subsequently ablated as described above. Post ablation scan demonstrates no hemorrhage. PLAN: Routine post procedure monitoring. MRI in 1 month to assess treatment response. Signed By Tierra Hall MD On 05/18/2022 19:10:07 Signed By Tierra Hall MD On 05/18/2022 19:10:07 Tierra Hall MD Equipment : [employer] ABLATION SNGL 1530 [employer] NEEDLE TEMNO 18 X 15 [employer] NEEDLE TEMNO 18 X 20 Dictated By: Tierra Hall MD Dictated Date/Time: 05/18/22 0:00 am Reviewed By: Tierra Hall MD Signed By: Tierra Hall MD Signed Date/Time: 05/18/22 7:10 pm Transcribed By: JANNY Transcribed Date/Time: 05/18/22 7:10 pm Patient Care team information Care Team PersonnelName: Isabela Holly Position: [facility] RN Member Role: Primary Care Nurse Name: Subha Krishna RN Position: [facility] RN Member Role: Primary Care Nurse Name: Renetta Soriano RN Position: [facility] AMB Nurse Member Role: Primary Care Nurse Name: Riana Puentes Position: [facility] Outreach Member Role: Lifetime Consulting Physician Name: Zenaida Last RN Position: [facility] RN Member Role: Primary Care Nurse Name: Nilsa Gupta RN Position: [facility] RN Member Role: Primary Care Nurse Name: Macie Link DO Position: [facility] Outreach Member Role: PCP Address: Address: [address] [place] [id number] Name: Dinh Luo RN Position: [facility] RN Member Role: Primary Care Nurse Name: Mert Cowan Position: [facility] Associate Professional Member Role: Lifetime Consulting Provider Address: Address: [address] [place] [address]- Name: Xenia Bains RN Position: S RN Member Role: Primary Care Nurse Name: Jeffery Diaz MD Position: [facility] Renal MD Member Role: Lifetime Consulting Physician Address: Address: [address] [place] [address] [address] [facility] [place], [place] [address]- Name: Susy Gavin RN Position: S RN Member Role: Primary Care Nurse Name: Jayme Nevarez RN Position: S RN Member Role: Primary Care Nurse Name: Jane Gilmore RN Position: [facility] Onco RN Member Role: Primary Care Nurse Name: Jacki Page RN, I Position: S RN Member Role: Primary Care Nurse Care Team Related PersonsName: DON PUSHPA Address: home [address] [place] [address] Name: JOHNNY MARGARITA Address: home [address] [address]
--- OUTSIDE RECORDS SUMMARY | 2022-06-15 19:31 | XMS_ITS | Continuity of Care Document ---
:1960 Author Organization [facility] Address [address] [place] [address]- Care Team Providers Name Role Phone Macie Link DO Primary Care Physician Encounter [facility] Date(s): 11/09/21 - 12/09/[address] [id number] Attending Physician: Not on Staff, Attending MD Admitting Physician: Not on Staff, Admitting MD Referring Physician: Not on Staff, Referring [...] 11/27/21 15:04:00 EDT, Route to Pharmacy Electronically, [facility] 3, Partial fill upon patient request if the prescription is for a schedule II opioi... Start Date: 11/27/21 Status: Orderedaspirin 81 mg oral delayed release tablet 81 mg, 1, tablet, By Mouth, Daily, # 30 tablet, Refills 0, Tot. Refills 0, Maintenance, 11/27/21 15:02:00 EDT, Route to Pharmacy Electronically, [facility] 3, Partial fill upon patient request if the prescription is for a schedule II opioi... Start Date: 11/27/21 Status: Orderedcarvedilol 12.5 mg oral tablet 12.5 mg, 1, tablet, By Mouth, 2 times a day, # 60 tablet, Refills 0, Tot. Refills 0, Maintenance, 11/27/21 15:29:00 EDT, Route to Pharmacy Electronically, [facility] 3, Partial fill upon patient request if the prescription is for a schedul... Start Date: 11/27/21 Status: Orderedcarvedilol 25 mg oral tablet 25 mg, 1, tablet, By Mouth, 2 times a day, # 60 tablet, Refills 0, Tot. Refills 0, Maintenance, 11/27/21 15:29:00 EDT, Route to Pharmacy Electronically, [facility], Partial fill upon patient request if the prescription is for a schedule... Start Date: 11/27/21 Status: OrderedclonazePAM 1 mg oral tablet TAKE 1 TABLET BY MOUTH DAILY at bedtime Start Date: 09/06/21 Status: Orderedergocalciferol 91919 iu oral capsule TAKE 1 CAPSULE BY MOUTH ONCE WEEKLY ON Tuesday Start Date: 09/06/21 Status: Orderedferrous fumarate 325 mg oral tablet 1 tablet = 325 mg, By Mouth, Daily, # 30 tablet, 0 Refills, Maintenance, 11/10/21 12:47:00 EDT, Tablet, [facility], Partial fill upon patient [...] 11/10/21 12:44:00 EDT, Route to Pharmacy Electronically, [facility], Partial fill upon patient [...] Refills, Maintenance, 11/10/21 12:43:00 EDT, REC Powder, [facility], Partial fill upon patient request if the prescription is for a schedule II... Start Date: 11/10/21 Status: Orderedomeprazole 40 mg oral enteric coated capsule 1 capsule = 40 mg, By Mouth, 2 times a day, TAKE 1 CAPSULE BY MOUTH EVERY MORNING BEFORE A MEAL, # 60 capsule, 0 Refills, Maintenance, 09/06/21 14:55:00 EDT, Suspension, [facility], Partial fill upon patient [...] 12/10/21 12:43:00 EDT, 11/10/21 12:43:00 EDT, Tablet, [facility], Partial fill upon patient request if the prescription is for a schedule II opioid... Start Date: 11/10/21 Stop Date: 12/10/21 Status: Orderedsucralfate 1 gm oral tablet 1 Gm, 1, tablet, By Mouth, 3 times a day before meals and bedtime, # 120 tablet, Refills 0, Tot. Refills 0, Maintenance, 09/06/21 14:59:00 EDT, Route to Pharmacy Electronically, [facility], Partial fill upon patient [...]
--- OUTSIDE RECORDS SUMMARY | 2022-06-15 19:31 | XMS_ITS | Continuity of Care Document ---
:1960 Author Organization [facility] Address [address] [place] [id number]- Care Team Providers Name Role Phone Macie Link DO Primary Care Physician [place] [facility] [place] 05/03/22 - 06/12/[address] [address] Attending Physician: Ky Milner MD Admitting Physician: Ky Milner MD Referring Physician: Ky Milner MD Allergies, Adverse Reactions, Alerts No Known Allergies Immunizations Given and Recorded Vaccine Date Status Refusal Reason SARS-CoV-2 (COVID-19) mRNA-1273 vaccine 03/12/22 Recorded SARS-CoV-2 (COVID-19) mRNA-1273 vaccine 10/06/21 Recorded SARS-CoV-2 [...] inactivated 03/06/03 Recorded influenza virus vaccine, inactivated 1/7/03 Recorded hepatitis B adult vaccine 12/19/14 Recorded [...] 11/27/21 15:04:00 EDT, Route to Pharmacy Electronically, [facility] 3, Partial fill upon patient request if the prescription is for a schedule II opioi... Start Date: 11/27/21 Status: Orderedaspirin 81 mg oral delayed release tablet 81 mg, 1, tablet, By Mouth, Daily, # 30 tablet, Refills 0, Tot. Refills 0, Maintenance, 11/27/21 15:02:00 EDT, Route to Pharmacy Electronically, [facility] 3, Partial fill upon patient [...] 11/27/21 15:29:00 EDT, Route to Pharmacy Electronically, [facility], Partial fill upon patient request if the prescription is for a schedul... Start Date: 11/27/21 Status: OrderedclonazePAM 1 mg oral tablet TAKE 1 TABLET BY MOUTH DAILY at bedtime Start Date: 09/06/21 Status: Orderedergocalciferol 02812 iu oral capsule TAKE 1 CAPSULE BY MOUTH ONCE WEEKLY ON TUESDAY MORNING Start Date: 09/06/21 Status: Orderedferrous fumarate 325 mg oral tablet 1 tablet = 325 mg, By Mouth, Daily, # 30 tablet, 0 Refills, Maintenance, 11/10/21 12:47:00 EDT, Tablet, [facility], Partial fill upon patient request if [...] 11/10/21 12:44:00 EDT, Route to Pharmacy Electronically, [facility], Partial fill upon patient request if [...] 0 Refills, Maintenance, 09/06/21 14:55:00 EDT, Suspension, [facility], Partial fill upon patient request [...] 09/06/21 14:59:00 EDT, Route to Pharmacy Electronically, [facility], Partial fill upon patient request [...] information Care Team PersonnelName: Isabela Holly Position: [facility] RN Member Role: Primary Care Nurse Name: Subha Krishna RN Position: S RN Member Role: Primary Care Nurse Name: Renetta Soriano RN Position: [facility] AMB Nurse Member Role: Primary Care Nurse Name: Riana Puentes Position: [facility] Outreach Member Role: Lifetime Consulting Physician Name: Zenaida Last RN Position: [facility] RN Member Role: Primary Care Nurse Name: Nilsa Gupta RN Position: [facility] RN Member Role: Primary Care Nurse Name: Macie Link DO Position: [facility] Outreach Member Role: PCP Address: Address: [address] [place] [address] Name: Dinh Luo RN Position: [facility] RN Member Role: Primary Care Nurse Name: Mert Cowan Position: [facility] Associate Professional Member Role: Lifetime Consulting Provider Address: Address: [address] [place] [address]- Name: Xenia Bains RN Position: [facility] RN Member Role: Primary Care Nurse Name: Jeffery Diaz MD Position: [facility] Renal MD Member Role: Lifetime Consulting Physician Address: Address: [address] [place] [address] [address] [facility] [place] [place] [address]- Name: Susy Gavin RN Position: [facility] RN Member Role: Primary Care Nurse Name: Jayme Nevarez RN Position: [facility] RN Member Role: Primary Care Nurse Name: Jane Gilmore RN Position: [facility] Onco RN Member Role: Primary Care Nurse Name: Jacki Page RN, I Position: [facility] RN Member Role: Primary Care Nurse Care Team Related PersonsName: CAITLIN OCHOASOL Address: [address] [place] [address] Name: MARGARITA TURNER Address: [address] [address]
--- OUTSIDE RECORDS SUMMARY | 2022-06-15 19:31 | XMS_ITS | Continuity of Care Document ---
:1960 Author Organization [facility] Address [address] [place] [address]- Care Team Providers Name Role Phone Macie Link DO Primary Care Physician Encounter [facility] Date(s): 10/21/21 - 10/23/[address] [address] Discharge Disposition: A-D/C Home Attending Physician: Turner Rich MD Admitting Physician: Turner Rich MD Referring Physician: Turner Rich MD Allergies, Adverse Reactions, Alerts No Known [...] DAILY at bedtime Start Date: 09/06/21 Status: OrderedCoreg 12.5 mg oral tablet 12.5 mg, Tablet, By Mouth, 10/23/21 9:00:00 EDT Start Date: 10/23/21 Stop Date: 10/23/21 Status: CompletedCoreg 12.5 mg oral tablet 12.5 mg, 1, tablet, By Mouth, 2 times a day, # 60 tablet, Refills 0, Tot. Refills 0, Maintenance, 10/23/21 10:14:00 EDT, Route to Pharmacy Electronically, [facility], Partial fill upon patient request if the prescription is for a s... Start Date: 10/23/21 Status: Ordereddiltiazem 300 mg/24 hours oral capsule, extended release 300 mg, CD Capsule, By Mouth, 10/23/21 9:00:00 EDT Start Date: 10/23/21 Stop Date: 10/23/21 Status: Completeddiltiazem 300 mg/24 hours oral capsule, extended release 300 mg, 1, capsule, By Mouth, Daily, # 30 capsule, Refills 0, Tot. Refills 0, Maintenance, 09/06/21 14:56:00 EDT, Route to Pharmacy Electronically, [facility], Partial fill upon patient request if the prescription is for a schedule II op... Start Date: 09/06/21 Status: Orderedergocalciferol 91273 iu oral capsule TAKE 1 CAPSULE BY [...] AND BEFORE SUPPER Start Date: 09/06/21 Status: OrderedhydrALAZINE 25 mg oral tablet 25 mg, Tablet, By Mouth, 10/23/21 9:00:00 EDT Start Date: 10/23/21 Stop Date: 10/23/21 Status: CompletedhydrALAZINE 25 mg oral tablet 50 mg, 2, tablet, By Mouth, 3 times a day, # 180 tablet, Refills 0, Tot. Refills 0, Maintenance, 10/23/21 10:14:00 EDT, Route to Pharmacy Electronically, [facility], Partial fill upon patient request if the prescription is for a sc... Start Date: 10/23/21 Status: Orderedipratropium nasal 21 mcg/inh spray USE [...] 0 Refills, Maintenance, 09/06/21 14:55:00 EDT, Suspension, [facility] 3, Partial fill upon patient [...] 09/06/21 14:59:00 EDT, Route to Pharmacy Electronically, [facility] 3, Partial fill upon patient [...] cervical radicular pain(Confirmed) Active Sleep apnea(Confirmed) Active Vital Signs Most recent to 1 2 3 4 5 oldest [Reference Range]: Height 167.64 cm (10/21/21 8:45 PM) Weight 90.90 kg (10/21/21 8:45 PM) Oxygen Saturation 96 % 98 % 100 % [94-100 %] (10/23/21 3:31 PM) (10/23/21 11:00 AM) (10/23/21 6:00 AM) Pulse Rate [55-90 57 bpm 60 bpm 56 bpm 56 bpm bpm] (10/23/21 3:31 PM) (10/23/21 11:00 AM) (10/23/21 8:48 AM) ( 8:48 AM) Body Mass Index 32.35 [18.5-24.99] *>HHI* (10/21/21 8:45 PM) Blood Pressure 121/63 mm Hg 153/77 mm Hg 160/73 mm Hg 160/73 mm Hg 16 0/73 mm Hg [90-138/55-84 mm Hg] (10/23/21 3:31 PM) *H* *H* *H* *H* (10/23/21 11:00 AM) (10/23/21 8:48 AM) (10/23/21 8 :48 AM) (10/23/21 8:48 AM) Respiratory Rate 18 br/min 18 br/min 18 br/min [16-30 br/min] (10/23/21 3:31 PM) (10/23/21 11:00 AM) (10/23/21 6:00 AM) Temperature 97.9 DegF 97.8 DegF 97.5 DegF [96.8-100.4 DegF] (10/23/21 3:31 PM) (10/23/21 11:00 AM) (10/23/21 6:00 AM) Liters per Minute 5 L/min 5 L/min 5 L/min (10/21/21 4:30 PM) (10/21/21 4:00 PM) (10/21/21 3:45 PM) Mode of Delivery Room air Room air Room air (Oxygen) (10/23/21 3:31 PM) (10/23/21 11:00 AM) (10/23/21 6:00 AM) Blood pressure sites Arm, right Arm, right Arm, right (10/23/21 3:31 PM) (10/23/21 11:00 AM) (10/23/21 6:00 AM) Temperature Route Oral Oral Oral (10/23/21 3:31 PM) (10/23/21 11:00 AM) (10/23/21 6:00 AM) Dry Weight 90.90 kg 91.4 kg (10/21/21 8:45 PM) (10/21/21 11:45 AM) Weight Obtained Via Patient/family stated (10/21/21 8:45 PM) Dry Weight Obtained Patient/family stated Standing scale Via (10/21/21 8:45 PM) (10/21/21 11:45 AM)
--- OUTSIDE RECORDS SUMMARY | 2022-06-15 19:31 | XMS_ITS | Continuity of Care Document ---
:1960 Author Organization [facility] Address [address] [place] [address]- Care Team Providers Name Role Phone Macie Link DO Primary Care Physician Encounter [facility] Date(s): 03/12/22 - 05/16/22 [facility] [address] [place] [address]- Discharge Disposition: A-D/C Home Attending Physician: Cade Walsh MD Admitting Physician: Cade Walsh MD Referring Physician: Macie Link DO Allergies, Adverse [...] 11/27/21 15:04:00 EDT, Route to Pharmacy Electronically, [facility] 3, Partial fill upon patient request if the prescription is for a schedule II opioi... Start Date: 11/27/21 Status: Orderedaspirin 81 mg oral delayed release tablet 81 mg, 1, tablet, By Mouth, Daily, # 30 tablet, Refills 0, Tot. Refills 0, Maintenance, 11/27/21 15:02:00 EDT, Route to Pharmacy Electronically, [facility] 3, Partial fill upon patient request [...] 11/27/21 15:29:00 EDT, Route to Pharmacy Electronically, [facility] 3, Partial fill upon patient request if the prescription is for a schedul... Start Date: 11/27/21 Status: OrderedclonazePAM 1 mg oral tablet TAKE 1 TABLET BY MOUTH DAILY at bedtime Start Date: 09/06/21 Status: Orderedergocalciferol 42110 iu oral capsule TAKE 1 CAPSULE BY MOUTH ONCE WEEKLY ON TUESDAY MORNING Start Date: 09/06/21 Status: Orderedferrous fumarate 325 mg oral tablet 1 tablet = 325 mg, By Mouth, Daily, # 30 tablet, 0 Refills, Maintenance, 11/10/21 12:47:00 EDT, Tablet, [facility] 3, Partial fill upon patient request [...] 11/10/21 12:44:00 EDT, Route to Pharmacy Electronically, [facility] 3, Partial fill upon patient request [...] 0 Refills, Maintenance, 09/06/21 14:55:00 EDT, Suspension, [facility], Partial fill upon patient [...] 09/06/21 14:59:00 EDT, Route to Pharmacy Electronically, [facility], Partial fill upon patient [...] recent to oldest [Reference Range]: 1 Height 167.7 cm (03/16/22 9:36 AM) Weight 84.3 kg (03/16/22 9:36 AM) Oxygen Saturation [94-100 %] 98 % (03/16/22 9:36 AM) Pulse Rate [55-90 bpm] 66 bpm (03/16/22 9:36 AM) Body Mass Index [18.5-24.99 kg/m2] 29.98 kg/m2 *H* (03/16/22 9:36 AM) Blood Pressure [90-138/55-84 mm Hg] 139/69 mm Hg *H* (03/16/22 9:36 AM) Temperature [96.8-100.4 DegF] 98.2 DegF (03/16/22 9:36 AM) Blood pressure sites Arm, left (03/16/22 9:36 AM) Temperature Route Temporal (03/16/22 9:36 AM) Dry Weight 84.3 kg (03/16/22 9:36 AM) Weight Obtained Via Standing scale (03/16/22 9:36 AM) Dry Weight Obtained Via Standing scale (03/16/22 9:36 AM) Note Maricruz Lawson: PERFORM, SIGN, VERIFY Event Display: Patient Education/Instruction Authored Date: [id number] [facility] *Heme/Onc Adult Clinical Summary Name TIO TURNER Age 61 Years 1960 PCP Macie Link DO PCP Visit Date 03/12/2022 14:44:00 Additional Instructions: Scheduled Appointments?? Future Appointments ?*OPS??Cardiology ?[address] ?[place],??[place],??[address] ?Phone:??--?Fax:??-- ?Appt. Date:??03/18/2022?3:40 PM ?Scheduled Provider:??Arnulfo WILEY, [place] Samson [facility] ?Phone:??--?Fax:??-- ?Appt. Date:??06/04/2022?1:00 PM ?Scheduled Provider:??Shaheen Wooten MD, Javon Maria Follow-Up Instructions ?? With: Address: When: Cade Nico [address] [facility] [place] [address] Business (1) 05/18/2022 10:15 AM Diagnosis Medications: Please continue your medications until treatment is completed or stopped by your provider. Discuss any questions related to medications with your provider. Medications to Continue with No Changes These medications were not printed or sent to your pharmacy Albuterol (albuterol CFC free 90 mcg/inh inhalation aerosol) 2 puff(s) Inhalation 4 times a day. Next Dose: Amlodipine (amLODIPine 10 mg oral tablet) 1 tab(s) Oral Daily. Refills: 0. Next Dose: Aspirin (aspirin 81 mg oral delayed release tablet) 1 tab(s) Oral Daily. Refills: 0. Next Dose: Carvedilol (carvedilol 12.5 mg oral tablet) 1 tab(s) Oral twice a day. Refills: 0. Next Dose: Carvedilol (carvedilol 25 mg oral tablet) 1 tab(s) Oral twice a day. Refills: 0. Next Dose: Clonazepam (clonazePAM 1 mg oral tablet) TAKE 1 TABLET BY MOUTH DAILY at bedtime. Next Dose: Durable Medical Equipment (Alcohol Prep Pads) USE DIRECTED THREE TIMES DAILY. Next Dose: Durable Medical Equipment (FreeStyle Lite Strips) TEST BLOOD SUGAR 4-6 TIMES PER DAY. Next Dose: Durable Medical Equipment (Pentips 32 gauge x 5/32 needle) USE WITH INSULIN FOUR TIMES DAILY. Next Dose: Durable Medical Equipment (TRUEplus Lancets 33 gauge) TEST BLOOD SUGAR 4-6 TIMES DAILY. Next Dose: Ergocalciferol (ergocalciferol 01913 iu oral capsule) TAKE 1 CAPSULE BY MOUTH ONCE WEEKLY ON TUESDAY MORNING. Next Dose: Ferrous Fumarate (ferrous fumarate 325 mg oral tablet) 1 tab(s) Oral Daily for 30 Days. Refills: 0. Next Dose: hydrALAZINE (hydrALAZINE 25 mg oral tablet) 3 tab(s) Oral 3 times a day. Refills: 0. Next Dose: Insulin Glargine (Insulin Glargine Inj) 15 unit(s) Subcutaneous Injection Daily before dinner. Next Dose: Isopropyl Alcohol Topical (isopropyl alcohol 70% topical pad) USE DIRECTED THREE TIMES DAILY. Next Dose: Levothyroxine (levothyroxine 0.112 mg oral tablet) TAKE 1 TABLET BY MOUTH EVERY MORNING ON AN EMPTY STOMACH. Next Dose: [place]-3 Polyunsaturated Fatty Acids (Fish Oil 1000 mg oral capsule) TAKE 2 CAPSULES BY MOUTH TWICE DAILY IN THE MORNING AND EVENING. Next Dose: Omeprazole (omeprazole 40 mg oral enteric coated capsule) 1 capsule Oral twice a day. TAKE 1 CAPSULEBY MOUTH EVERY MORNING BEFORE A MEAL. Refills: 0. Next Dose: Oxycodone / Acetaminophen (acetaminophen-oxycodone 325 mg-10 mg oral tablet) TAKE 1 TABLET BY MOUTH EVERY 4 HOURS NEEDED FOR SEVERE PAIN (7-10 ON PAIN SCALE). Next Dose: Rosuvastatin (rosuvastatin 40 mg oral tablet) TAKE 1 TABLET BY MOUTH AT BEDTIME. Next Dose: sodium zirconium cyclosilicate (Lokelma 5 g oral powder for reconstitution) 1 pack/packet Oral Daily. do not take within 2 hours of other medications. Refills: 0. Next Dose: Sucralfate (sucralfate 1 gm oral tablet) 1 tab(s) Oral 3 times a day before meals and bedtime. Refills: 0. Next Dose: Tamsulosin (tamsulosin 0.4 mg oral capsule) TAKE 1 CAPSULE BY MOUTH EVERY EVENING. Next Dose: Zolpidem (zolpidem 10 mg oral tablet) TAKE 1 TABLET BY MOUTH AT BEDTIME. Next Dose: Allergy Info:?? NKA Medications Given This Visit Future Orders ?No future orders Vital Signs Height 167.7 cm Weight 84.3 kg BMI 29.98 kg/m2 Blood Pressure 139 mm Hg/69 mm Hg Temperature 98.2 DegF Pulse Rate 66 bpm Respiratory Rate 02 Sat Mode of Delivery 98 %/ You can now view a summary of your hospital visit from the comfort of your home through a free online portal called [facility]ande. [facility] is a website that allows you to securely view yourmedical information including discharge summary, medications and follow-up visits. ??You can also send a secure electronic message to your doctor???s office to request appointments, renew medications or just ask a question. You can enroll at [email or web address] or register during your next office visit. Disclaimer:?? The information provided is of a general nature and is intended to be used in conjunction with the recommendations and advice of your health care practitioner. ??Every effort has been made to ensure that the information provided is accurate and complete at the time it is provided to you however, as your needs change, or, as new ??information becomes available, different or additional instructions may be required. If you have questions, please consult with your primary care provider or pharmacist, as appropriate.??This information is not intended to serve as substitution for assessment and evaluation by a qualified health care provider. If you do not have a primary care provider, you may find a [facility] provider by calling [facility] [employer] [facility] at [phone]. For information about the plan of care including goals and instructions for your diagnosis, please see the patient education orders section of this document. Patient Education Materials?? The content of this educational material or handout may have been modified, supplemented, or adaptedfrom its original content and format to support your individualized medical care. Patient Care team information Care Team PersonnelName: Isabela Holly Position: [facility] RN Member Role: Primary Care Nurse Name: Subha Krishna RN Position: [facility] RN Member Role: Primary Care Nurse Name: Renetta Soriano RN Position: [facility] AMB Nurse Member Role: Primary Care Nurse Name: Riana Puentes Position: [facility] Outreach Member Role: Lifetime Consulting Physician Name: Zenaida Last RN Position: [facility] RN Member Role: Primary Care Nurse Name: Nilsa Gupta RN Position: [facility] RN Member Role: Primary Care Nurse Name: Macie Link DO Position: [facility] Outreach Member Role: PCP Address: Address: [address] [place] [address]- [place] Name: Dinh Luo RN Position: S RN Member Role: Primary Care Nurse Name: Mert Cowan Position: [facility] Associate Professional Member Role: Lifetime Consulting Provider Address: Address: [address] [place] [address]- Name: Xenia Bains RN Position: [facility] RN Member Role: Primary Care Nurse Name: Jeffery Diaz MD Position: [facility] Renal MD Member Role: Lifetime Consulting Physician Address: Address: [address] [place] [address] [address] [facility], [place] [address]- [place] Name: Jayme Nevarez RN Position: [facility] RN Member Role: Primary Care Nurse Name: Jane Gilmore RN Position: [facility] Onco RN Member Role: Primary Care Nurse Name: Jacki Page RN, I Position: [facility] RN Member Role: Primary Care Nurse Care Team Related PersonsName: PUSHPA OCHOA Address: home [address] [place] [address] Name: MARGARITA TURNER Address: home [address] [address]
--- OUTSIDE RECORDS SUMMARY | 2022-06-15 19:32 | XMS_ITS | Continuity of Care Document ---
:1960 Author Organization [facility] Address [address] [place] [address]- Care Team Providers Name Role Phone Macie Link DO Primary Care Physician Encounter [facility] Date(s): 05/13/22 - 06/12/22 [facility] [address] [place] [address]- Attending Physician: Debbie Pope Admitting Physician: Debbie Pope Referring Physician: Debbie Pope Allergies, Adverse Reactions, Alerts No Known Allergies [...] vaccine 12/19/14 Recorded hepatitis B adult vaccine 12/24/14 Recorded hepatitis B adult vaccine 04/03/14 Recorded [...] 11/27/21 15:04:00 EDT, Route to Pharmacy Electronically, [facility], Partial fill upon patient request if the prescription is for a schedule II opioi... Start Date: 11/27/21 Status: Orderedaspirin 81 mg oral delayed release tablet 81 mg, 1, tablet, By Mouth, Daily, # 30 tablet, Refills 0, Tot. Refills 0, Maintenance, 11/27/21 15:02:00 EDT, Route to Pharmacy Electronically, [facility] 3, Partial fill upon patient request [...] 11/27/21 15:29:00 EDT, Route to Pharmacy Electronically, [facility] 3, Partial fill upon patient request if the prescription is for a schedul... Start Date: 11/27/21 Status: OrderedclonazePAM 1 mg oral tablet TAKE 1 TABLET BY MOUTH DAILY at bedtime Start Date: 09/06/21 Status: Orderedergocalciferol 23273 iu oral capsule TAKE 1 CAPSULE BY MOUTH ONCE WEEKLY ON TUESDAY MORNING Start Date: 09/06/21 Status: Orderedferrous fumarate 325 mg oral tablet 1 tablet = 325 mg, By Mouth, Daily, # 30 tablet, 0 Refills, Maintenance, 11/10/21 12:47:00 EDT, Tablet, [facility], Partial fill upon patient request [...] 11/10/21 12:44:00 EDT, Route to Pharmacy Electronically, [facility] 3, Partial fill upon patient request [...] 0 Refills, Maintenance, 09/06/21 14:55:00 EDT, Suspension, [facility] 3, Partial fill upon patient request [...] 09/06/21 14:59:00 EDT, Route to Pharmacy Electronically, [facility] 3, Partial fill upon patient request [...] information Care Team PersonnelName: Isabela Holly Position: [facility] RN Member Role: Primary Care Nurse Name: Subha Krishna RN Position: S RN Member Role: Primary Care Nurse Name: Renetta Soriano RN Position: [facility] AMB Nurse Member Role: Primary Care Nurse Name: Riana Puentes Position: [facility] Outreach Member Role: Lifetime Consulting Physician Name: Zenaida Last RN Position: [facility] RN Member Role: Primary Care Nurse Name: Nilsa Gupta RN Position: [facility] RN Member Role: Primary Care Nurse Name: Macie Link DO Position: [facility] Outreach Member Role: PCP Address: Address: [address] [place] [address] Name: Dinh Luo RN Position: [facility] RN Member Role: Primary Care Nurse Name: Mert Cowan Position: [facility] Associate Professional Member Role: Lifetime Consulting Provider Address: Address: [address] [place] [address]- Name: Xenia Bains RN Position: [facility] RN Member Role: Primary Care Nurse Name: Jeffery Diaz MD Position: [facility] Renal MD Member Role: Lifetime Consulting Physician Address: Address: [address] [place] [address] [address] [facility], [place] [address]- Name: Susy Gavin RN Position: [facility] RN Member Role: Primary Care Nurse Name: Jayme Nevarez RN Position: [facility] RN Member Role: Primary Care Nurse Name: Jane Gilmore RN Position: [facility] Onco RN Member Role: Primary Care Nurse Name: Jacki Page RN, I Position: [facility] RN Member Role: Primary Care Nurse Care Team Related PersonsName: PUSHPA OCHOA Address: home [address] [place] [address] Name: MARGARITA TURNER Address: home [address] [address]
--- OUTSIDE RECORDS SUMMARY | 2022-06-15 19:32 | XMS_ITS | Continuity of Care Document ---
:1960 Author Organization [facility] Address Unavailable , Care Team Providers Name Role Phone Macie Link DO Primary Care Physician Encounter [facility] Date(s): 12/02/21 - 01/01/22 [facility] Attending Physician: Debbie Pope Admitting Physician: Debbie [...] 11/27/21 15:04:00 EDT, Route to Pharmacy Electronically, [facility] 3, Partial fill upon patient request if the prescription is for a schedule II opioi... Start Date: 11/27/21 Status: Orderedaspirin 81 mg oral delayed release tablet 81 mg, 1, tablet, By Mouth, Daily, # 30 tablet, Refills 0, Tot. Refills 0, Maintenance, 11/27/21 15:02:00 EDT, Route to Pharmacy Electronically, [facility] 3, Partial fill upon patient request if the prescription is for a schedule II opioi... Start Date: 11/27/21 Status: Orderedcarvedilol 12.5 mg oral tablet 12.5 mg, 1, tablet, By Mouth, 2 times a day, # 60 tablet, Refills 0, Tot. Refills 0, Maintenance, 11/27/21 15:29:00 EDT, Route to Pharmacy Electronically, [facility] 3, Partial fill upon patient request if the prescription is for a schedul... Start Date: 11/27/21 Status: Orderedcarvedilol 25 mg oral tablet 25 mg, 1, tablet, By Mouth, 2 times a day, # 60 tablet, Refills 0, Tot. Refills 0, Maintenance, 11/27/21 15:29:00 EDT, Route to Pharmacy Electronically, [facility] 3, Partial fill upon patient request if the prescription is for a schedule... Start Date: 11/27/21 Status: OrderedclonazePAM 1 mg oral tablet TAKE 1 TABLET BY MOUTH DAILY at bedtime Start Date: 09/06/21 Status: Orderedergocalciferol 88513 iu oral capsule TAKE 1 CAPSULE BY MOUTH ONCE WEEKLY ON TUESDAY MORNING Start Date: 09/06/21 Status: Orderedferrous fumarate 325 mg oral tablet 1 tablet = 325 mg, By Mouth, Daily, # 30 tablet, 0 Refills, Maintenance, 11/10/21 12:47:00 EDT, Tablet, [facility], Partial fill upon patient request [...] 11/10/21 12:44:00 EDT, Route to Pharmacy Electronically, [facility] 3, Partial fill upon patient request [...] Refills, Maintenance, 11/10/21 12:43:00 EDT, REC Powder, [facility], Partial fill upon patient request if the prescription is for a schedule II... Start Date: 11/10/21 Status: Orderedomeprazole 40 mg oral enteric coated capsule 1 capsule = 40 mg, By Mouth, 2 times a day, TAKE 1 CAPSULE BY MOUTH EVERY MORNING BEFORE A MEAL, # 60 capsule, 0 Refills, Maintenance, 09/06/21 14:55:00 EDT, Suspension, [facility] 3, Partial fill upon patient request if [...] 09/06/21 14:59:00 EDT, Route to Pharmacy Electronically, [facility] 3, Partial fill upon patient request if [...]
--- OUTSIDE RECORDS SUMMARY | 2022-06-15 19:32 | XMS_ITS | Continuity of Care Document ---
:1960 Author Organization [facility] Address [address] [facility], [address]rd Floor, [address] [place] [address]- Care Team Providers Name Role Phone Macie Link DO Primary Care Physician Encounter [facility] Date(s): 11/12/21 - 02/12/22 [facility] [address] [facility], [address] Floor, [address] [place] [address]- Attending Physician: Beto Hartley MD Admitting Physician: Beto Hartley MD Allergies, Adverse Reactions, Alerts No Known [...] 11/27/21 15:04:00 EDT, Route to Pharmacy Electronically, [facility] 3, Partial fill upon patient request if the prescription is for a schedule II opioi... Start Date: 11/27/21 Status: Orderedaspirin 81 mg oral delayed release tablet 81 mg, 1, tablet, By Mouth, Daily, # 30 tablet, Refills 0, Tot. Refills 0, Maintenance, 11/27/21 15:02:00 EDT, Route to Pharmacy Electronically, [facility] 3, Partial fill upon patient request if the prescription is for a schedule II opioi... Start Date: 11/27/21 Status: Orderedcarvedilol 12.5 mg oral tablet 12.5 mg, 1, tablet, By Mouth, 2 times a day, # 60 tablet, Refills 0, Tot. Refills 0, Maintenance, 11/27/21 15:29:00 EDT, Route to Pharmacy Electronically, [facility] 3, Partial fill upon patient request if the prescription is for a schedul... Start Date: 11/27/21 Status: Orderedcarvedilol 25 mg oral tablet 25 mg, 1, tablet, By Mouth, 2 times a day, # 60 tablet, Refills 0, Tot. Refills 0, Maintenance, 11/27/21 15:29:00 EDT, Route to Pharmacy Electronically, [facility] 3, Partial fill upon patient request if the prescription is for a schedule... Start Date: 11/27/21 Status: OrderedclonazePAM 1 mg oral tablet TAKE 1 TABLET BY MOUTH DAILY at bedtime Start Date: 09/06/21 Status: Orderedergocalciferol 51795 iu oral capsule TAKE 1 CAPSULE BY MOUTH ONCE WEEKLY ON TUESDAY MORNING Start Date: 09/06/21 Status: Orderedferrous fumarate 325 mg oral tablet 1 tablet = 325 mg, By Mouth, Daily, # 30 tablet, 0 Refills, Maintenance, 11/10/21 12:47:00 EDT, Tablet, [facility] 3, Partial fill upon patient request if [...] 11/10/21 12:44:00 EDT, Route to Pharmacy Electronically, [facility] 3, Partial fill upon patient request if [...] Refills, Maintenance, 11/10/21 12:43:00 EDT, REC Powder, [facility], Partial fill upon patient request if the prescription is for a schedule II... Start Date: 11/10/21 Status: Orderedomeprazole 40 mg oral enteric coated capsule 1 capsule = 40 mg, By Mouth, 2 times a day, TAKE 1 CAPSULE BY MOUTH EVERY MORNING BEFORE A MEAL, # 60 capsule, 0 Refills, Maintenance, 09/06/21 14:55:00 EDT, Suspension, [facility], Partial fill upon patient request [...] 09/06/21 14:59:00 EDT, Route to Pharmacy Electronically, [facility], Partial fill upon patient request [...] Care Team PersonnelName: Macie Link DO Address: [address] [place] [address]- [place]
--- OUTSIDE RECORDS SUMMARY | 2022-06-15 19:32 | XMS_ITS | Continuity of Care Document ---
:1960 Author Organization [facility] Address [address] [place] [address]- Care Team Providers Name Role Phone Macie Link DO Primary Care Physician Encounter [facility] Date(s): 04/16/22 - 05/16/22 [facility] [address] [place] [address]- [place] Allergies, Adverse Reactions, Alerts No Known Allergies [...] 15:04:00 EDT, Route to Pharmacy Electronically, [facility] 3, Partial fill upon patient request if the prescription is for a schedule II opioi... Start Date: 11/27/21 Status: Orderedaspirin 81 mg oral delayed release tablet 81 mg, 1, tablet, By Mouth, Daily, # 30 tablet, Refills 0, Tot. Refills 0, Maintenance, 11/27/21 15:02:00 EDT, Route to Pharmacy Electronically, [facility] 3, Partial fill upon patient request if [...] 11/27/21 15:29:00 EDT, Route to Pharmacy Electronically, [facility] 3, Partial fill upon patient request if the prescription is for a schedul... Start Date: 11/27/21 Status: OrderedclonazePAM 1 mg oral tablet TAKE 1 TABLET BY MOUTH DAILY at bedtime Start Date: 09/06/21 Status: Orderedergocalciferol 03238 iu oral capsule TAKE 1 CAPSULE BY MOUTH ONCE WEEKLY ON TUESDAY MORNING Start Date: 09/06/21 Status: Orderedferrous fumarate 325 mg oral tablet 1 tablet = 325 mg, By Mouth, Daily, # 30 tablet, 0 Refills, Maintenance, 11/10/21 12:47:00 EDT, Tablet, [facility] 3, Partial fill upon patient request if [...] 11/10/21 12:44:00 EDT, Route to Pharmacy Electronically, [facility] 3, Partial fill upon patient request if [...] 0 Refills, Maintenance, 09/06/21 14:55:00 EDT, Suspension, [facility] 3, Partial fill upon patient request if [...] 09/06/21 14:59:00 EDT, Route to Pharmacy Electronically, [facility] 3, Partial fill upon patient request if [...] information Care Team PersonnelName: Isabela Holly Position: [facility] RN Member Role: Primary Care Nurse Name: Subha Krishna RN Position: [facility] RN Member Role: Primary Care Nurse Name: Renetta Soriano RN Position: [facility] AMB Nurse Member Role: Primary Care Nurse Name: Riana Puentes Position: [facility] Outreach Member Role: Lifetime Consulting Physician Name: Zenaida Last RN Position: [facility] RN Member Role: Primary Care Nurse Name: Nilsa Gupta RN Position: [facility] RN Member Role: Primary Care Nurse Name: Macei Link DO Position: [facility] Outreach Member Role: PCP Address: Address: [address] [place] [address]- [place] Name: Dinh Luo RN Position: S RN Member Role: Primary Care Nurse Name: Mert Cowan Position: [facility] Associate Professional Member Role: Lifetime Consulting Provider Address: Address: [address] [place] [address]- Name: Xenia Bains RN Position: [facility] RN Member Role: Primary Care Nurse Name: Jeffery Diaz MD Position: [facility] Renal MD Member Role: Lifetime Consulting Physician Address: Address: [address] [place] [address] [address] [facility], [place] [address]- [place] Name: Jayme Nevarez RN Position: [facility] RN Member Role: Primary Care Nurse Name: Jnae Gilmore RN Position: [facility] Onco RN Member Role: Primary Care Nurse Name: Jacki Page RN, I Position: [facility] RN Member Role: Primary Care Nurse Care Team Related PersonsName: PUSHPA OCHOA Address: home [address] [place] [address] Name: JOHNNY MARGARITA Address: home [address] [address]
--- OUTSIDE RECORDS SUMMARY | 2022-06-15 19:32 | XMS_ITS | Continuity of Care Document ---
:1960 Author Organization [facility] Address [address] [place] [address]- Care Team Providers Name Role Phone Macie Link DO Primary Care Physician Encounter [facility] Date(s): 09/10/21 - 01/12/22 [facility] [address] [address]- Discharge Disposition: A-D/C Home Attending Physician: Cade [...] 11/27/21 15:04:00 EDT, Route to Pharmacy Electronically, [facility] 3, Partial fill upon patient request if the prescription is for a schedule II opioi... Start Date: 11/27/21 Status: Orderedaspirin 81 mg oral delayed release tablet 81 mg, 1, tablet, By Mouth, Daily, # 30 tablet, Refills 0, Tot. Refills 0, Maintenance, 11/27/21 15:02:00 EDT, Route to Pharmacy Electronically, [facility] 3, Partial fill upon patient request if the prescription is for a schedule II opioi... Start Date: 11/27/21 Status: Orderedcarvedilol 12.5 mg oral tablet 12.5 mg, 1, tablet, By Mouth, 2 times a day, # 60 tablet, Refills 0, Tot. Refills 0, Maintenance, 11/27/21 15:29:00 EDT, Route to Pharmacy Electronically, [facility] 3, Partial fill upon patient request if the prescription is for a schedul... Start Date: 11/27/21 Status: Orderedcarvedilol 25 mg oral tablet 25 mg, 1, tablet, By Mouth, 2 times a day, # 60 tablet, Refills 0, Tot. Refills 0, Maintenance, 11/27/21 15:29:00 EDT, Route to Pharmacy Electronically, [facility], Partial fill upon patient request if the prescription is for a schedule... Start Date: 11/27/21 Status: OrderedclonazePAM 1 mg oral tablet TAKE 1 TABLET BY MOUTH DAILY at bedtime Start Date: 09/06/21 Status: Orderedergocalciferol 07994 iu oral capsule TAKE 1 CAPSULE BY MOUTH ONCE WEEKLY ON Tuesday Start Date: 09/06/21 Status: Orderedferrous fumarate 325 mg oral tablet 1 tablet = 325 mg, By Mouth, Daily, # 30 tablet, 0 Refills, Maintenance, 11/10/21 12:47:00 EDT, Tablet, [facility], Partial fill upon patient [...] 11/10/21 12:44:00 EDT, Route to Pharmacy Electronically, [facility], Partial fill upon patient [...] Refills, Maintenance, 11/10/21 12:43:00 EDT, REC Powder, [facility], Partial fill upon patient request if the prescription is for a schedule II... Start Date: 11/10/21 Status: Orderedomeprazole 40 mg oral enteric coated capsule 1 capsule = 40 mg, By Mouth, 2 times a day, TAKE 1 CAPSULE BY MOUTH EVERY MORNING BEFORE A MEAL, # 60 capsule, 0 Refills, Maintenance, 09/06/21 14:55:00 EDT, Suspension, [facility], Partial fill upon patient [...] 09/06/21 14:59:00 EDT, Route to Pharmacy Electronically, [facility], Partial fill upon patient [...] apnea(Confirmed) Active Vital Signs Most recent to oldest [Reference Range]: 1 2 Height 168 cm 166.6 cm (11/12/21 2:25 PM) (10/14/21 9:28 AM) Weight 91.3 kg 90.3 kg (11/12/21 2:25 PM) (10/14/21 9:28 AM) Pulse Rate [55-90 bpm] 66 bpm 62 bpm (11/12/21 2:25 PM) (10/14/21 9:28 AM) Body Mass Index [18.5-24.99] 32.35 32.53 *>HHI* *>HHI* (11/12/21 2:25 PM) (10/14/21 9:28 AM) Blood Pressure [90-138/55-84 mm Hg] 158/80 mm Hg 156/ 75 mm Hg *H* *H* (11/12/21 2:25 PM) (10/14/21 9:28 AM) Temperature [96.8-100.4 DegF] 98.6 DegF 97.9 DegF (11/12/21 2:25 PM) (10/14/21 9:28 AM) Blood pressure sites Arm, left Arm, left (11/12/21 2:25 PM) (10/14/21 9:28 AM) Temperature Route Oral Temporal (11/12/21 2:25 PM) (10/14/21 9:28 AM) Dry Weight 91.3 kg 90.3 kg (11/12/21 2:25 PM) (10/14/21 9:28 AM) Weight Obtained Via Standing scale Standing scale (11/12/21 2:25 PM) (10/14/21 9:28 AM) Dry Weight Obtained Via Standing scale Standing scale (11/12/21 2:25 PM) (10/14/21 9:28 AM)
--- OUTSIDE RECORDS SUMMARY | 2022-06-15 19:32 | XMS_ITS | Continuity of Care Document ---
:1960 Author Organization [facility] Address [address] [place] [address]- Care Team Providers Name Role Phone Macie Link DO Primary Care Physician [place] [facility] Date[place]): 12/08/21 - 01/07/22 [facility] [address] [place] [address]- Attending Physician: Debbie Pope Admitting Physician: AdmDebbie carrington Referring Physician: trDebbie Allergies, Adverse Reactions, Alerts No Known Allergies [...] 11/27/21 15:04:00 EDT, Route to Pharmacy Electronically, [facility] 3, Partial fill upon patient request if the prescription is for a schedule II opioi... Start Date: 11/27/21 Status: Orderedaspirin 81 mg oral delayed release tablet 81 mg, 1, tablet, By Mouth, Daily, # 30 tablet, Refills 0, Tot. Refills 0, Maintenance, 11/27/21 15:02:00 EDT, Route to Pharmacy Electronically, [facility] 3, Partial fill upon patient request if the prescription is for a schedule II opioi... Start Date: 11/27/21 Status: Orderedcarvedilol 12.5 mg oral tablet 12.5 mg, 1, tablet, By Mouth, 2 times a day, # 60 tablet, Refills 0, Tot. Refills 0, Maintenance, 11/27/21 15:29:00 EDT, Route to Pharmacy Electronically, [facility] 3, Partial fill upon patient request if the prescription is for a schedul... Start Date: 11/27/21 Status: Orderedcarvedilol 25 mg oral tablet 25 mg, 1, tablet, By Mouth, 2 times a day, # 60 tablet, Refills 0, Tot. Refills 0, Maintenance, 11/27/21 15:29:00 EDT, Route to Pharmacy Electronically, [facility] 3, Partial fill upon patient request if the prescription is for a schedule... Start Date: 11/27/21 Status: OrderedclonazePAM 1 mg oral tablet TAKE 1 TABLET BY MOUTH DAILY at bedtime Start Date: 09/06/21 Status: Orderedergocalciferol 14854 iu oral capsule TAKE 1 CAPSULE BY MOUTH ONCE WEEKLY ON TUESDAY MORNING Start Date: 09/06/21 Status: Orderedferrous fumarate 325 mg oral tablet 1 tablet = 325 mg, By Mouth, Daily, # 30 tablet, 0 Refills, Maintenance, 11/10/21 12:47:00 EDT, Tablet, [facility] 3, Partial [...] 11/10/21 12:44:00 EDT, Route to Pharmacy Electronically, [facility] 3, Partial [...] Refills, Maintenance, 11/10/21 12:43:00 EDT, REC Powder, [facility], Partial fill upon patient request if the prescription is for a schedule II... Start Date: 11/10/21 Status: Orderedomeprazole 40 mg oral enteric coated capsule 1 capsule = 40 mg, By Mouth, 2 times a day, TAKE 1 CAPSULE BY MOUTH EVERY MORNING BEFORE A MEAL, # 60 capsule, 0 Refills, Maintenance, 09/06/21 14:55:00 EDT, Suspension, [facility], Partial fill upon patient [...] 09/06/21 14:59:00 EDT, Route to Pharmacy Electronically, [facility], Partial fill upon patient [...]
--- OUTSIDE RECORDS SUMMARY | 2022-06-15 19:32 | XMS_ITS | Continuity of Care Document ---
:1960 Author Organization [facility] Address [address] [place] [address]- Care Team Providers Name Role Phone Macie Link DO Primary Care Physician Encounter [facility] Date(s): 03/12/22 - 04/11/[facility] [address] [place], [place] [address] Attending Physician: Debbie Pope Admitting Physician: AdmDebbie carrington Referring Physician: AdmtrDebbie Allergies, Adverse Reactions, Alerts No Known Allergies [...] 11/27/21 15:04:00 EDT, Route to Pharmacy Electronically, [facility] 3, Partial fill upon patient request if the prescription is for a schedule II opioi... Start Date: 11/27/21 Status: Orderedaspirin 81 mg oral delayed release tablet 81 mg, 1, tablet, By Mouth, Daily, # 30 tablet, Refills 0, Tot. Refills 0, Maintenance, 11/27/21 15:02:00 EDT, Route to Pharmacy Electronically, [facility] 3, Partial fill upon patient request if the prescription is for a schedule II opioi... Start Date: 11/27/21 Status: Orderedcarvedilol 12.5 mg oral tablet 12.5 mg, 1, tablet, By Mouth, 2 times a day, # 60 tablet, Refills 0, Tot. Refills 0, Maintenance, 11/27/21 15:29:00 EDT, Route to Pharmacy Electronically, [facility] 3, Partial fill upon patient request if the prescription is for a schedul... Start Date: 11/27/21 Status: OrderedclonazePAM 1 mg oral tablet TAKE 1 TABLET BY MOUTH DAILY at bedtime Start Date: 09/06/21 Status: Orderedergocalciferol 77188 iu oral capsule TAKE 1 CAPSULE BY MOUTH ONCE WEEKLY ON TUESDAY MORNING Start Date: 09/06/21 Status: Orderedferrous fumarate 325 mg oral tablet 1 tablet = 325 mg, By Mouth, Daily, # 30 tablet, 0 Refills, Maintenance, 11/10/21 12:47:00 EDT, Tablet, [facility], Partial fill upon patient [...] 11/10/21 12:44:00 EDT, Route to Pharmacy Electronically, [facility], Partial fill upon patient [...] 0 Refills, Maintenance, 09/06/21 14:55:00 EDT, Suspension, [facility], Partial fill upon patient [...] 09/06/21 14:59:00 EDT, Route to Pharmacy Electronically, [facility], Partial fill upon patient [...] information Care Team PersonnelName: Isabela Holly Position: [facility] RN Member Role: Primary Care Nurse Name: Subha Krishna RN Position: [facility] RN Member Role: Primary Care Nurse Name: Renetta Soriano RN Position: [facility] RN Member Role: Primary Care Nurse Name: Riana Puentes Position: [facility] Outreach Member Role: Lifetime Consulting Physician Name: Zenaida Last RN Position: [facility] RN Member Role: Primary Care Nurse Name: Nilsa Gupta RN Position: [facility] RN Member Role: Primary Care Nurse Name: Macie Link DO Position: [facility] Outreach Member Role: PCP Address: Address: [address] [place] [address]- Name: Dinh Luo RN Position: [facility] RN Member Role: Primary Care Nurse Name: Mert Cowan Position: [facility] Associate Professional Member Role: Lifetime Consulting Provider Address: Address: [address] [place] [address]- Name: Xenia Bains RN Position: S RN Member Role: Primary Care Nurse Name: Xiao Call RN Position: S RN Member Role: Primary Care Nurse Name: Jeffery Diaz MD Position: [facility] Renal MD Member Role: Lifetime Consulting Physician Address: Address: [address] [place] [address] [address] [facility] [place] [address]- Name: Jayme Nevarez RN Position: S RN Member Role: Primary Care Nurse Name: Jane Gilmore RN Position: [facility] Onco RN Member Role: Primary Care Nurse Name: Jacki Page RN, I Position: S RN Member Role: Primary Care Nurse Care Team Related PersonsName: DON PUSHPA Address: home [address] [place] [address] Name: TURNER, MARGARITA Address: home [address] [place] [address]
--- OUTSIDE RECORDS SUMMARY | 2022-06-15 19:32 | XMS_ITS | Continuity of Care Document ---
:1960 Author Organization [facility] Address [address] [place] [address]- Care Team Providers Name Role Phone Macie Link DO Primary Care Physician Encounter [facility] Date(s): 09/22/21 - 10/22/21 [facility] [address] [place] [address]- [place] Allergies, Adverse Reactions, Alerts No Known [...] 09/06/21 14:56:00 EDT, Route to Pharmacy Electronically, [facility], Partial fill upon patient request if the prescription is for a schedule II op... Start Date: 09/06/21 Status: Orderedergocalciferol 11986 iu oral capsule TAKE 1 CAPSULE BY [...] 0 Refills, Maintenance, 09/06/21 14:55:00 EDT, Suspension, [facility], Partial fill upon patient [...] 09/06/21 14:59:00 EDT, Route to Pharmacy Electronically, [facility] 3, Partial fill upon patient [...]
--- OUTSIDE RECORDS SUMMARY | 2022-06-15 19:32 | XMS_ITS | Continuity of Care Document ---
:1960 Author Organization [facility] Address [address] [place] [address]- Care Team Providers Name Role Phone Macie Link DO Primary Care Physician Encounter [facility] Date(s): 04/15/22 - 05/15/22 [facility] [address] [place] [address]- Allergies, Adverse Reactions, Alerts No Known Allergies [...] pneumococcal 23-valent vaccine 11/10/00 Recorded tetanus/diphtheria/pertussis, acel(Tdap) 9/7/12 Recorde d tetanus-diphtheria toxoids (Td) 11/10/00 Recorded [...] 11/27/21 15:04:00 EDT, Route to Pharmacy Electronically, [facility] 3, Partial fill upon patient request if the prescription is for a schedule II opioi... Start Date: 11/27/21 Status: Orderedaspirin 81 mg oral delayed release tablet 81 mg, 1, tablet, By Mouth, Daily, # 30 tablet, Refills 0, Tot. Refills 0, Maintenance, 11/27/21 15:02:00 EDT, Route to Pharmacy Electronically, [facility] 3, Partial fill upon patient [...] 11/27/21 15:29:00 EDT, Route to Pharmacy Electronically, [facility] 3, Partial fill upon patient request if the prescription is for a schedul... Start Date: 11/27/21 Status: OrderedclonazePAM 1 mg oral tablet TAKE 1 TABLET BY MOUTH DAILY at bedtime Start Date: 09/06/21 Status: Orderedergocalciferol 01274 iu oral capsule TAKE 1 CAPSULE BY MOUTH ONCE WEEKLY ON TUESDAY MORNING Start Date: 09/06/21 Status: Orderedferrous fumarate 325 mg oral tablet 1 tablet = 325 mg, By Mouth, Daily, # 30 tablet, 0 Refills, Maintenance, 11/10/21 12:47:00 EDT, Tablet, [facility] 3, Partial fill upon patient [...] 11/10/21 12:44:00 EDT, Route to Pharmacy Electronically, [facility] 3, Partial fill upon patient [...] 0 Refills, Maintenance, 09/06/21 14:55:00 EDT, Suspension, [facility] 3, Partial fill upon patient [...] 09/06/21 14:59:00 EDT, Route to Pharmacy Electronically, [facility] 3, Partial fill upon patient [...] information Care Team PersonnelName: Isabela Holly Position: [facility] RN Member Role: Primary Care Nurse Name: Subha Krishna RN Position: [facility] RN Member Role: Primary Care Nurse Name: Renetta Soriano RN Position: [facility] AMB Nurse Member Role: Primary Care Nurse Name: Riana Puentes Position: [facility] Outreach Member Role: Lifetime Consulting Physician Name: Zenaida Last RN Position: [facility] RN Member Role: Primary Care Nurse Name: Nilsa Gupta RN Position: [facility] RN Member Role: Primary Care Nurse Name: Macie Link DO Position: [facility] Outreach Member Role: PCP Address: Address: [address] [place] [address]- [place] Name: Dinh Luo RN Position: S RN Member Role: Primary Care Nurse Name: Mert Cowan Position: [facility] Associate Professional Member Role: Lifetime Consulting Provider Address: Address: [address] [place] [phone]- Name: Xenia Bains RN Position: [facility] RN Member Role: Primary Care Nurse Name: Jeffery Diaz MD Position: [facility] Renal MD Member Role: Lifetime Consulting Physician Address: Address: [address] [place] [address] [address] [facility] [place] [address]- [place] Name: Jayme Nevarez RN Position: [facility] RN Member Role: Primary Care Nurse Name: Jane Gilmore RN Position: [facility] Onco RN Member Role: Primary Care Nurse Name: Jacki Page RN, I Position: [facility] RN Member Role: Primary Care Nurse Care Team Related PersonsName: PUSHPA OCHOA Address: home [address] [place] [address] Name: MARGARITA TURNER Address: home [address] [address]
--- OUTSIDE RECORDS SUMMARY | 2022-06-15 19:32 | XMS_ITS | Continuity of Care Document ---
:1960 Author Organization [facility] Address [address] [facility], 3rd Floor, [address] [place] [address]- Care Team Providers Name Role Phone Macie Link DO Primary Care Physician Encounter [facility] Date(s): 01/13/22 - 02/12/22 [facility] [address] [facility], 3rd Floor, [address] [place] [address]- [place] Allergies, Adverse Reactions, Alerts No Known [...] 11/27/21 15:04:00 EDT, Route to Pharmacy Electronically, [facility] 3, Partial fill upon patient request if the prescription is for a schedule II opioi... Start Date: 11/27/21 Status: Orderedaspirin 81 mg oral delayed release tablet 81 mg, 1, tablet, By Mouth, Daily, # 30 tablet, Refills 0, Tot. Refills 0, Maintenance, 11/27/21 15:02:00 EDT, Route to Pharmacy Electronically, [facility] 3, Partial fill upon patient request if the prescription is for a schedule II opioi... Start Date: 11/27/21 Status: Orderedcarvedilol 12.5 mg oral tablet 12.5 mg, 1, tablet, By Mouth, 2 times a day, # 60 tablet, Refills 0, Tot. Refills 0, Maintenance, 11/27/21 15:29:00 EDT, Route to Pharmacy Electronically, [facility] 3, Partial fill upon patient request if the prescription is for a schedul... Start Date: 11/27/21 Status: Orderedcarvedilol 25 mg oral tablet 25 mg, 1, tablet, By Mouth, 2 times a day, # 60 tablet, Refills 0, Tot. Refills 0, Maintenance, 11/27/21 15:29:00 EDT, Route to Pharmacy Electronically, [facility] 3, Partial fill upon patient request if the prescription is for a schedule... Start Date: 11/27/21 Status: OrderedclonazePAM 1 mg oral tablet TAKE 1 TABLET BY MOUTH DAILY at bedtime Start Date: 09/06/21 Status: Orderedergocalciferol 77455 iu oral capsule TAKE 1 CAPSULE BY MOUTH ONCE WEEKLY ON TUESDAY MORNING Start Date: 09/06/21 Status: Orderedferrous fumarate 325 mg oral tablet 1 tablet = 325 mg, By Mouth, Daily, # 30 tablet, 0 Refills, Maintenance, 11/10/21 12:47:00 EDT, Tablet, [facility] 3, Partial fill upon patient request [...] 11/10/21 12:44:00 EDT, Route to Pharmacy Electronically, [facility] 3, Partial fill upon patient request [...] Refills, Maintenance, 11/10/21 12:43:00 EDT, REC Powder, [facility], Partial fill upon patient request if the prescription is for a schedule II... Start Date: 11/10/21 Status: Orderedomeprazole 40 mg oral enteric coated capsule 1 capsule = 40 mg, By Mouth, 2 times a day, TAKE 1 CAPSULE BY MOUTH EVERY MORNING BEFORE A MEAL, # 60 capsule, 0 Refills, Maintenance, 09/06/21 14:55:00 EDT, Suspension, [facility], Partial fill upon patient [...] 09/06/21 14:59:00 EDT, Route to Pharmacy Electronically, [facility], Partial fill upon patient [...] Care Team PersonnelName: Macie Link DO Address: [address] [place] [address]
--- OUTSIDE RECORDS SUMMARY | 2022-06-15 19:32 | XMS_ITS | Continuity of Care Document ---
:1960 Author Organization [facility] Address [address] [place] [address], 3rd Floor, [address] [place] [address]- Care Team Providers Name Role Phone Macie Link DO Primary Care Physician [facility]counter [facility] Date(s): 02/24/22 - 03/26/22 [facility] [address] [facility], 3rd Floor, [address] [place] [id number] Attending Physician: Debbie Pope Admitting Physician: Admtr, Debbie Referring Physician: Admtr, Ar8 Allergies, Adverse Reactions, Alerts No Known Allergies [...] 11/27/21 15:04:00 EDT, Route to Pharmacy Electronically, [facility], Partial fill upon patient request if the prescription is for a schedule II opioi... Start Date: 11/27/21 Status: Orderedaspirin 81 mg oral delayed release tablet 81 mg, 1, tablet, By Mouth, Daily, # 30 tablet, Refills 0, Tot. Refills 0, Maintenance, 11/27/21 15:02:00 EDT, Route to Pharmacy Electronically, [facility] 3, Partial fill upon patient request if the prescription is for a schedule II opioi... Start Date: 11/27/21 Status: Orderedcarvedilol 12.5 mg oral tablet 12.5 mg, 1, tablet, By Mouth, 2 times a day, # 60 tablet, Refills 0, Tot. Refills 0, Maintenance, 11/27/21 15:29:00 EDT, Route to Pharmacy Electronically, [facility] 3, Partial fill upon patient request if the prescription is for a schedul... Start Date: 11/27/21 Status: Orderedcarvedilol 25 mg oral tablet 25 mg, 1, tablet, By Mouth, 2 times a day, # 60 tablet, Refills 0, Tot. Refills 0, Maintenance, 11/27/21 15:29:00 EDT, Route to Pharmacy Electronically, [facility], Partial fill upon patient request if the prescription is for a schedule... Start Date: 11/27/21 Status: OrderedclonazePAM 1 mg oral tablet TAKE 1 TABLET BY MOUTH DAILY at bedtime Start Date: 09/06/21 Status: Orderedergocalciferol 84984 iu oral capsule TAKE 1 CAPSULE BY MOUTH ONCE WEEKLY ON Tuesday Start Date: 09/06/21 Status: Orderedferrous fumarate 325 mg oral tablet 1 tablet = 325 mg, By Mouth, Daily, # 30 tablet, 0 Refills, Maintenance, 11/10/21 12:47:00 EDT, Tablet, [facility], Partial fill upon [...] 11/10/21 12:44:00 EDT, Route to Pharmacy Electronically, [facility], Partial fill upon [...] Refills, Maintenance, 11/10/21 12:43:00 EDT, REC Powder, [facility], Partial fill upon patient request if the prescription is for a schedule II... Start Date: 11/10/21 Status: Orderedomeprazole 40 mg oral enteric coated capsule 1 capsule = 40 mg, By Mouth, 2 times a day, TAKE 1 CAPSULE BY MOUTH EVERY MORNING BEFORE A MEAL, # 60 capsule, 0 Refills, Maintenance, 09/06/21 14:55:00 EDT, Suspension, [facility], Partial fill upon [...] 09/06/21 14:59:00 EDT, Route to Pharmacy Electronically, [facility], Partial fill upon [...] apnea Confirmed Active Patient Care team information PersonnelName: Macie Link DO Address: Address: [address] [place] [address]- [place]
--- OUTSIDE RECORDS SUMMARY | 2022-06-15 19:32 | XMS_ITS | Continuity of Care Document ---
:1960 Author Organization [facility] Address [address] [place] [address]- Care Team Providers Name Role Phone Macie Link DO Primary Care Physician [facility] Date[facility]s): 04/08/22 - 04/08/[address] [address] Discharge Disposition: A-D/C Home Attending Physician: Javon Wooten MD Admitting Physician: Javon Wooten MD Referring Physician: Javon Wooten MD Allergies, Adverse Reactions, Alerts No Known [...] 11/27/21 15:04:00 EDT, Route to Pharmacy Electronically, [facility] 3, Partial fill upon patient request if the prescription is for a schedule II opioi... Start Date: 11/27/21 Status: Orderedaspirin 81 mg oral delayed release tablet 81 mg, 1, tablet, By Mouth, Daily, # 30 tablet, Refills 0, Tot. Refills 0, Maintenance, 11/27/21 15:02:00 EDT, Route to Pharmacy Electronically, [facility] 3, Partial fill upon patient request if the prescription is for a schedule II opioi... Start Date: 11/27/21 Status: Orderedcarvedilol 12.5 mg oral tablet 12.5 mg, 1, tablet, By Mouth, 2 times a day, # 60 tablet, Refills 0, Tot. Refills 0, Maintenance, 11/27/21 15:29:00 EDT, Route to Pharmacy Electronically, [facility] 3, Partial fill upon patient request if the prescription is for a schedul... Start Date: 11/27/21 Status: OrderedclonazePAM 1 mg oral tablet TAKE 1 TABLET BY MOUTH DAILY at bedtime Start Date: 09/06/21 Status: Orderedergocalciferol 67434 iu oral capsule TAKE 1 CAPSULE BY MOUTH ONCE WEEKLY ON Tuesday Start Date: 09/06/21 Status: Orderedferrous fumarate 325 mg oral tablet 1 tablet = 325 mg, By Mouth, Daily, # 30 tablet, 0 Refills, Maintenance, 11/10/21 12:47:00 EDT, Tablet, [facility], Partial fill upon patient [...] 11/10/21 12:44:00 EDT, Route to Pharmacy Electronically, [facility], Partial fill upon patient [...] 0 Refills, Maintenance, 09/06/21 14:55:00 EDT, Suspension, [facility], Partial fill upon patient request if the prescription i... Start Date: 09/06/21 Status: OrderedoxyCODONE 5 mg oral tablet 5 mg, 1, tablet, By Mouth, Every 8 hours, PRN, please take 2 hours after your regular oxycodone dose. Please only take if pain uncontrolled by your normal oxycodone. DO NOT take this at the same time as your regular pain medications, # 4 tablet, Refil... Start Date: 04/08/22 Stop Date: 04/10/22 Status: OrderedPentips 32 gauge x 5/32 needle [...] 09/06/21 14:59:00 EDT, Route to Pharmacy Electronically, [facility], Partial fill upon patient [...] Active Vital Signs Most recent to oldest 1 2 3 [Reference Range]: Height 168 cm 168 cm (04/08/22 11:41 AM) (04/07/22 8:59 AM) Weight 83.3 kg 82.27 kg (04/08/22 11:41 AM) (04/07/22 8:59 AM) Oxygen Saturation [94-100 99 % 98 % 99 % %] (04/08/22 6:15 PM) (04/08/22 6:00 PM) (04/08/22 5:45 PM) Pulse Rate [55-90 bpm] 59 bpm (04/08/22 11:41 AM) Body Mass Index 29.51 kg/m2 29.15 kg/m2 [18.5-24.99 kg/m2] *H* *H* (04/08/22 11:41 AM) (04/07/22 8:59 AM) Blood Pressure 147/76 mm Hg 151/75 mm Hg 134/80 mm Hg [90-138/55-84 mm Hg] *H* *H* (04/08/22 5 :45 PM) (04/08/22 6:15 PM) (04/08/22 6:00 PM) Respiratory Rate [16-30 15 br/min 19 br/min 14 br/mi n br/min] *L* (04/08/22 6:00 PM) *L* (04/08/22 6:15 PM) (04/08/22 5:4 5 PM) Temperature [96.8-100.4 97.0 DegF 96.9 DegF 98.1 Deg F DegF] (04/08/22 6:00 PM) (04/08/22 5:15 PM) (04/08/22 11:41 AM) Liters per Minute 2 L/min 2 L/min 2 L/min (04/08/22 2:40 PM) (04/08/22 2:35 PM) (04/08/22 2:30 PM) Mode of Delivery (Oxygen) Room air Room air Room a ir (04/08/22 6:15 PM) (04/08/22 6:00 PM) (04/08/22 5:45 PM) Blood pressure sites Arm, right Arm, right Arm, right (04/08/22 6:15 PM) (04/08/22 6:00 PM) (04/08/22 5:45 PM) Temperature Route Temporal Temporal Core Bladder (04/08/22 6:00 PM) (04/08/22 5:15 PM) (04/08/22 11:41 AM) Dry Weight 83.3 kg 82.27 kg (04/08/22 11:41 AM) (04/07/22 8:59 AM) Weight Obtained Via Standing scale (04/08/22 11:41 AM) Dry Weight Obtained Via Standing scale (04/08/22 11:41 AM) History and physical note Event Display: History and Physical Hospital Authored Date: [id number] Note Sully Robert RN: PERFORM Event Display: Discharge/Transfer Note Hospital Authored Date: [id number] Nursing Discharge Note Entered On: 04/08/2022 18:37 EST Performed On: 04/08/2022 18:35 EST by Sully Robert RN Nursing Discharge Note 2 Discharge Time : 04/08/2022 18:35 EST Discharge Level of Care at Discharge : Home/[facility]/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 Care 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 Utilized : No AMA Form Signed : No Patient Left Unit Via : Wheelchair Patient Accompanied Off Unit with : Significant other, Responsible adult DC Instructions Provided & Signed by Pt : Yes Patient Understands D/C Instructions : Yes Verbalized Understanding of D/C Plan By : Family, Patient, Significant other, Responsible adult Patient Instructions Discharge Signed : Yes Did Pt have Specialty Bed or Wound Vac : No Sully Robert RN - 04/08/2022 18:37 Sully Neumann RN: PERFORM Event Display: Patient Education/Instruction Authored Date: [id number] Inpatient Adult Discharge Instructions [place] [id number] Name: TIO TURNER : 1960 Visit: 04/08/2022 10:37:00 Current Date: 04/08/2022 18:20 Account: [id number] Inpatient Adult Discharge Instructions We would like [...] and their families. Surveys are administered by [employer] ?? If further treatment with your primary care physician or another doctor is recommended, it is important for you to keep the appointment. Call your primary care physician or return to the Emergency Department immediately if your condition worsens, fails to improve, or new symptoms develop. If you need to find a doctor, you can call [facility] [employer] for a referral at [phone] or toll free at [phone] ([phone]) or log in to [email or web address].. ?? You can view and manage your care through the patient portal or by using a health care janay of your choosing. [employer] is a website that allows you to securely view your medical information including your hospital discharge summary, office visit summaries, medications and follow-up visits. You can also request appointments, renew medications, and request access to your medical information using a health care janay of your choosing, or just ask a question. You can enroll at [email or web address] or register during your next office visit. You have been discharged from [facility], Patient Care Unit: [facility]. If you have any questions regarding these instructions after you leave, please call us and we will be happy to assist you. [facility] Your Care Team Attending Physician Javon Wooten MD Discharging Providers Javon Wooten MD Reason for Admission ESRD CREATION AV FISTULADS CS Tests Performed Below is a partial list of the tests performed during your hospitalization. You may have had other tests and procedures not included in this list. Please discuss all test results with your provider. GLUCOSE POC GLUCOSE POC CARTRIDGE HEMATOCRIT POC [facility] HEMOGLOBIN POC [facility] POTASSIUM POC [facility] SODIUM POC [facility] Primary Care Provider Macie Link DO Advance Directive Health Care Proxy on File Yes - Health Care Proxy No qualifying data available. Discharge Vitals Temperature: 96.9 DegF Height: 168 cm Pulse Rate: 59 bpm Weight: 83.3 kg Respiratory Rate: 19 br/min Body Mass Index:??29.51 kg/m2??High Systolic Blood Pressure:??151 mm Hg??High Body surface area: 1.97 Diastolic Blood Pressure: 75 mm Hg ?? Oxygen Saturation: 98 % ?? Studies Pending All tests and labs ordered during this hospital stay have been completed unless listed below. Pleasediscuss all pending results with your provider listed above in these instructions. ?? No incomplete studies found What to do next Instructions From Your Doctor If you develop fever, chills, increased pain, nausea, vomiting, bleeding, or increased redness or pus around the wound please call Transplant Surgery office number provided. ?? A prescription for an opioid has been given to the patient ?? Activity -No heavy lifting >10 lbs. -Increase activity as tolerated -Encourage cough and deep breathing, use incentive spirometry -No tub baths until incisions have healed -No driving until off narcotics and cleared by surgery - your left arm will be very numb or the first 24 hours after the operation. Please ensure that you protect the arm during that time to prevent injury due to lack of sensation. ?? - PAIN control:?? You may take??your home oxycodone/acetaminophen pain pill.??If your pain is not controlled with??this medications; take the prescribed narcotic medication; But do NOT take at the same time as your other pain medication ? Wound care -Your incisions are closed with subcuticular sutures (under the skin), which is covered by skin glue -You in may shower in 24 hours Discharge Orders Instructions from your Care Team Refer to attached MD discharge instructions. Scheduled Follow-Up Appointments 2021 10:00 AM EST ?? With: Rafael WILEY, Njogu Where: [facility] [address] [facility] [address] [place] [address]- Tuesday 1:00 PM EST ?? With: Where: [facility] You Need to Schedule the Following Appointments Follow Up with??Macie Link When??In 0 days Where: [address] [place] [address]- Business (1) Follow Up with??Javon Wooten MD When??Only if needed Why: office number provided in case you have not been contacted for follow up appointment Where: [address] [facility] [address] [facility] [place] [address]- Business (1) ? Discharge Medications TURNERTIO Sheppard :1960 Visit Date:04/08/2022 Medications: Please continue your medications until treatment is completed or stopped by your provider. Medications not listed below should be discontinued. Discuss any questions related to medications with your provider. What How Much When Instructions Next Dose New Oxycodone (oxyCODONE 5 mg oral tablet) 1 tab(s) Oral Every 8 hours as needed for as needed for pain please take 2 hours after your regular oxycodone dose. Please only take if pain uncontrolled by your normal oxycodone. DO NOT take this at the same time as your regular pain medications ?? Pickup at [facility] 3 Unchanged Albuterol (albuterol CFC free 90 mcg/ inh inhalation aerosol) 2 puff(s) Inhalation 4 times a day Unchanged Amlodipine (amLODIPine 10 mg oral tablet) 1 tab(s) Oral Daily Unchanged Aspirin (aspirin 81 mg oral delayed release tablet) 1 tab(s) Oral Daily Unchanged Carvedilol (carvedilol 12.5 mg oral tablet) [...] 4-6 TIMES DAILY ?? Unchanged Ergocalciferol (ergocalciferol 82689 iu oral capsule) TAKE 1 CAPSULE BY MOUTH ONCE WEEKLY ON Tuesday ?? Unchanged Ferrous Fumarate (ferrous fumarate 325 mg oral tablet) 1 tab(s) Oral Daily Duration: 30 Days Unchanged hydrALAZINE (hydrALAZINE 25 mg oral tablet) 3 tab(s) Oral 3 times a day Unchanged Insulin Glargine (Insulin Glargine Inj) 15 unit(s) Subcutaneous Injection Daily before dinner Unchanged Isopropyl Alcohol Topical (isopropyl alcohol 70% topical pad) USE DIRECTED THREE TIMES DAILY ?? Unchanged Levothyroxine (levothyroxine 0.112 mg oral tablet) TAKE 1 TABLET BY MOUTH EVERY MORNING ON AN EMPTY STOMACH ?? Unchanged Corning-3 Polyunsaturated Fatty Acids (Fish Oil 1000 mg [...] (7-10 ON PAIN SCALE) ?? Unchanged Rosuvastatin (rosuvastatin 40 mg oral tablet) TAKE 1 TABLET BY MOUTH AT BEDTIME ?? Unchanged Sucralfate (sucralfate 1 gm oral tablet) 1 tab(s) Oral 3 times a day before meals and bedtime Unchanged Tamsulosin (tamsulosin 0.4 mg oral capsule) TAKE 1 CAPSULE BY MOUTH EVERY EVENING ?? Unchanged Zolpidem (zolpidem 10 mg oral tablet) TAKE 1 TABLET BY MOUTH AT BEDTIME ?? Pharmacy Information [facility]: [address] [place], [place] [id number] [phone] Test Results Below is a partial list of the most recent Laboratory test results done prior to this discharge. You may have had other tests and procedures not included in this list. Please discuss all test results with your provider. GLUCOSE POC (04/08/2022) ???Glucose, POC - 89 mg/dL GLUCOSE POC CARTR[place]GE (04/08/2022) ???Glucose (POC) POC Cartridge - 134 HEMATOCRIT POC CARTRIDGE (04/08/2022) ???Hematocrit (POC) POC Cartridge - 40 % HEMOGLOBIN POC [place] (04/08/2022) ???Hemoglobin (POC) POC Cartridge - 13.6 Gm/dL POTASSIUM POC CAR[place] (04/08/2022) ???Potassium (POC) POC Cartridge - 5.1 mmol/L SODIUM POC CARTRIDGE (04/08/2022) ???Sodium (POC) POC Cartridge - 141 mmol/L Allergies (NKA means No Known Allergies) NKA Problems Active Problems??(10) Anxiety?? cervical radicular pain?? CKD stage 2?? Depression?? Diabetic nephropathy?? Hypertension?? Low back pain?? Neck pain?? Proteinuria?? Sleep apnea?? Education Materials Below is the list of Educational Leaflet Providered with your Discharge Instructions. Surgery Medical Daystay Surgical Overnight Discharge Instructions?? Valuables and Belongings I fully understand and agree that [facility] accepts no responsibility for all [...] encouraged to send valuables and belongings home. ?? Review of Valuable and Belonging List: With patient, With family Date for Pt to Sign Valuables/Belongings: 04/08/22 11:41:00 ?? Valuables & Belongings ?? Clothes Electronic devices Jewelry Monetary Items Personal devices Miscellaneous Medications (Valuables) Valuables at Bedside Pants, Shirt, Shoes, Undergarments Cell phone ? Valuables Sent Home ? Valuables Sent to Security ? Other Discharge Information ? Pulmonary Rehab [...] are strongly encouraged to quit. Please call [facility] [employer] at [phone] or [phone]) or log in to [email or web address] for referrals to smoking cessation programs. ?? The National Suicide Prevention Hotline is available 20/12 if you or someone you know needs to find areason to keep living. By calling 7-621-462-REVENTIVE (1066) you'll be connected to a skilled, trained counselor at a crisis center in your area. INPATIENT DISCHARGE INSTRUCTIONS SIGNATURE PAGE TIO TURNER Location:[facility] Registration Date and Time:04/08/2022 10:37 EST Primary Care Physician: Macie Link DO, I TIO TURNER, have received the above patient education materials/instructions and have verbalized understanding. If ambulance or transport services are being used I further acknowledge being given a choice of service. ?? If you need to contact me, please call me at this number: . Patient/Milk Tester Name: Patient/Milk Tester Signature: Relationship to Patient: Witness Name/Signature: Date: Sully Robert RN: PERFORM, SIGN, VERIFY Event Display: Patient Education Handout Authored Date: Sully Robert RN: PERFORM Event Display: Patient Education Leaflets Authored Date: Surgery Medical Daystay Surgical Overnight Discharge Instructions ?? 295 Medical Daystay/Surgical Overnight Discharge Instructions ? Since your coordination and judgment may be altered by medication and/or anesthesia, a responsible adult must drive you home from the hospital. ? If you have received medication for pain or sedation while under our care, you should not drive, operate machinery, drink alcohol, or sign any legal documents for 24 hours.?? You should have someone with you at home tonight. ? Remain at home the day of discharge.?? You may be up and about unless otherwise instructed by your physician. ? You may resume your daily prescription medication schedule.?? Any depressant medication should be avoided for 24 hours unless otherwise instructed by your surgeon or anesthesiologist. ? Call your physician for a follow-up appointment.? If you experience unusual or severe pain not relied by your pain medication, excessive bleedingor drainage, persistent nausea and vomiting, excessive swelling or redness, foul odor from incision site or fever over 100.6F, you need to call your physician. ? A follow-up phone call by a nurse will be made the day after your procedure.?? If you have stayed with us over night, you will not be receiving a follow-up phone call. ? Nausea and vomiting are a common side effect of prescription pain medication.?? We recommend that pills are not taken on an empty stomach.?? While taking any prescription pain medication you should not drive or drink alcohol. ? Patient Care team information Care Team PersonnelName: [...] CENTER Outreach Member Role: PCP Address: Address: [address] [place] [address]- Name: Dinh Luo RN Position: [facility] RN Member Role: Primary Care Nurse Name: Mert Cowan Position: [facility] Associate Professional Member Role: [employer] Provider Address: Address: [address] [place] [address]- [place] Name: Xenia Bains RN Position: [facility] RN Member Role: Primary Care Nurse Name: Xiao Call RN Position: [facility] RN Member Role: Primary Care Nurse Name: Jeffery Diaz MD Position: [facility] Renal MD Member Role: [employer] Physician Address: Address: [address] [place] [address] [address] [facility], [place] [address]- [place] Name: Jayme Nevarez RN Position: [facility] RN Member Role: Primary Care Nurse Name: Jane Gilmore RN Position: [facility] Onco RN Member Role: Primary Care Nurse Name: Jacki Page RN, I Position: [facility] RN Member Role: Primary Care Nurse Care Team Related PersonsName: DON PUSHPA Address: home [address] [place] [address] Name: MARGARITA TURNER Address: home [address] [address]
--- OUTSIDE RECORDS SUMMARY | 2022-06-15 19:32 | XMS_ITS | Continuity of Care Document ---
:1960 Author Organization [facility] Address [address] [place] [address]- Care Team Providers Name Role Phone Macie Link DO Primary Care Physician [place] [facility] [place] 09[place]10[place]21 - 10/10/21 [facility] [address] [address] Attending Physician: Debbie Pope Admitting Physician: Debbie [...] 09/06/21 14:56:00 EDT, Route to Pharmacy Electronically, [facility], Partial fill upon patient request if the prescription is for a schedule II op... Start Date: 09/06/21 Status: Orderedergocalciferol 83330 iu oral capsule TAKE 1 CAPSULE BY [...] 0 Refills, Maintenance, 09/06/21 14:55:00 EDT, Suspension, [facility], Partial fill upon patient [...] 09/06/21 14:59:00 EDT, Route to Pharmacy Electronically, [facility], Partial fill upon patient [...]
--- OUTSIDE RECORDS SUMMARY | 2022-06-15 19:32 | XMS_ITS | Continuity of Care Document ---
:1960 Author Organization [facility] Address [address] [place] [address]- Care Team Providers Name Role Phone Macie Link DO Primary Care Physician [facility] Date(s): 11/25/21 - 11/27/[address] [id number] Discharge Disposition: A-D/C Home Attending Physician: Luis Melchor MD Admitting Physician: Luis Melchor MD Referring Physician: Not on Staff, Referring [...] ON PAIN SCALE) Start Date: 09/06/21 Status: Orderedacetaminophen-oxyCODONE 325 mg-5 mg oral tablet 1 tablet, Tablet, By Mouth, Every 4 hours, PRN for Pain , Severe, Routine, 11/25/21 21:48:00 EDT Start Date: 11/25/21 Stop Date: 11/28/21 Status: Discontinuedalbuterol CFC free 90 mcg/inh inhalation aerosol 2 puffs, Inhalation, 4 times a day, 0 Refills, Maintenance, 07/19/13 8:04:07 Start Date: 07/19/13 Status: OrderedAlcohol Prep Pads USE DIRECTED THREE TIMES DAILY Start Date: 09/06/21 Status: OrderedamLODIPine 10 mg oral tablet 10 mg, Tablet, By Mouth, SAMUEL, 11/27/21 12:29:00 EDT Start Date: 11/27/21 Stop Date: 11/27/21 Status: CompletedamLODIPine 10 mg oral tablet 10 mg, 1, tablet, By Mouth, Daily, # 30 tablet, Refills 0, Tot. Refills 0, Maintenance, 11/27/21 15:04:00 EDT, Route to Pharmacy Electronically, [facility] 3, Partial fill upon patient request if the prescription is for a schedule II opioi... Start Date: 11/27/21 Status: Orderedaspirin 81 mg oral delayed release tablet 81 mg, 1, tablet, By Mouth, Daily, # 30 tablet, Refills 0, Tot. Refills 0, Maintenance, 11/27/21 15:02:00 EDT, Route to Pharmacy Electronically, [facility] 3, Partial fill upon patient request if the prescription is for a schedule II opioi... Start Date: 11/27/21 Status: Orderedcarvedilol 12.5 mg oral tablet 12.5 mg, 1, tablet, By Mouth, 2 times a day, # 60 tablet, Refills 0, Tot. Refills 0, Maintenance, 11/27/21 15:29:00 EDT, Route to Pharmacy Electronically, [facility] 3, Partial fill upon patient request if the prescription is for a schedul... Start Date: 11/27/21 Status: Orderedcarvedilol 25 mg oral tablet 25 mg, 1, tablet, By Mouth, 2 times a day, # 60 tablet, Refills 0, Tot. Refills 0, Maintenance, 11/27/21 15:29:00 EDT, Route to Pharmacy Electronically, [facility] 3, Partial fill upon patient request if the prescription is for a schedule... Start Date: 11/27/21 Status: OrderedclonazePAM 1 mg oral tablet TAKE 1 TABLET BY MOUTH DAILY at bedtime Start Date: 09/06/21 Status: OrderedCoreg 12.5 mg oral tablet 25 mg, Tablet, By Mouth, 11/27/21 9:00:00 EDT Start Date: 11/27/21 Stop Date: 11/27/21 Status: Completeddiltiazem 300 mg/24 hours oral capsule, extended release 300 mg, CD Capsule, By Mouth, 11/27/21 9:00:00 EDT Start Date: 11/27/21 Stop Date: 11/27/21 Status: Completedergocalciferol 99140 iu oral capsule TAKE 1 CAPSULE BY MOUTH ONCE WEEKLY ON Tuesday Start Date: 09/06/21 Status: Orderedferrous fumarate 325 mg oral tablet 1 tablet = 325 mg, By Mouth, Daily, # 30 tablet, 0 Refills, Maintenance, 11/10/21 12:47:00 EDT, Tablet, [facility] 3, Partial fill upon patient [...] 12:44:00 EDT, Route to Pharmacy Electronically, [facility] 3, Partial fill upon patient [...] Refills, Maintenance, 11/10/21 12:43:00 EDT, REC Powder, [facility] 3, Partial fill upon patient request if the prescription is for a schedule II... Start Date: 11/10/21 Status: Orderedomeprazole 40 mg oral enteric coated capsule 1 capsule = 40 mg, By Mouth, 2 times a day, TAKE 1 CAPSULE BY MOUTH EVERY MORNING BEFORE A MEAL, # 60 capsule, 0 Refills, Maintenance, 09/06/21 14:55:00 EDT, Suspension, [facility] 3, Partial fill upon patient [...] 12/10/21 12:43:00 EDT, 11/10/21 12:43:00 EDT, Tablet, [facility], Partial fill upon patient request if the prescription is for a schedule II opioid... Start Date: 11/10/21 Stop Date: 12/10/21 Status: Orderedsucralfate 1 gm oral tablet 1 Gm, 1, tablet, By Mouth, 3 times a day before meals and bedtime, # 120 tablet, Refills 0, Tot. Refills 0, Maintenance, 09/06/21 14:59:00 EDT, Route to Pharmacy Electronically, [facility], Partial fill upon patient [...] Most recent to oldest 1 2 3 4 [Reference Range]: Height 167.7 cm 167.7 cm 167.7 cm (11/27/21 3:11 PM) (11/27/21 9:19 AM) (11/27/21 5:36 AM) Weight 90.6 kg 90.6 kg 89.7 kg (11/26/21 4:00 AM) (11/26/21 3:42 AM) (11/25/21 7:00 PM) Oxygen Saturation 99 % 96 % 98 % [94-100 %] (11/27/21 3:11 PM) (11/27/21 9:19 AM) (11/27/21 5:36 AM) Pulse Rate [55-90 bpm] 69 bpm 69 bpm 69 bpm 69 bp m (11/27/21 3:11 PM) (11/27/21 9:19 AM) (11/27/21 8:58 AM) (11/27/21 8:58 AM) Body Mass Index 32.22 [18.5-24.99] *>HHI* (11/26/21 3:42 AM) Blood Pressure 158/74 mm Hg 142/71 mm Hg 159/84 mm Hg [90-138/55-84 mm Hg] *H* *H* *H* (11/27/21 3:11 PM) (11/27/21 1:27 PM) (11/27/21 9:19 AM) Respiratory Rate [16-30 19 br/min 19 br/min 16 br/min br/min] (11/27/21 3:11 PM) (11/27/21 9:19 AM) (11/27/21 5:38 AM) Temperature [96.8-100.4 98.0 DegF 98.5 DegF 97.9 DegF DegF] (11/27/21 3:11 PM) (11/27/21 9:19 AM) (11/27/21 5:36 AM) Mode of Delivery Room air Room air Room air (Oxygen) (11/27/21 3:11 PM) (11/27/21 9:19 AM) (11/27/21 5:36 AM) Blood pressure sites Arm, right Arm, right Arm, right (11/27/21 3:11 PM) (11/27/21 9:19 AM) (11/27/21 5:36 AM) Temperature Route Oral Oral Oral (11/27/21 3:11 PM) (11/27/21 9:19 AM) (11/27/21 5:36 AM) Dry Weight 91.3 kg (11/26/21 3:42 AM) Weight Obtained Via Bed scale Bed scale (11/26/21 4:00 AM) (11/25/21 7:00 PM)
--- OUTSIDE RECORDS SUMMARY | 2022-06-15 19:32 | XMS_ITS | Continuity of Care Document ---
:1960 Author Organization [facility] Address [address] [place] [address]- Care Team Providers Name Role Phone Macie Link DO Primary Care Physician [facility] Date(s): 04/15/22 - 05/15/22 [facility] [address] [place], [place] [address] Attending Physician: AdmDebbie carrington Admitting Physician: AdmtrDebbie Referring Physician: Admtr, Ar8 Allergies, Adverse Reactions, [...] 15:04:00 EDT, Route to Pharmacy Electronically, [facility], Partial fill upon patient request if the prescription is for a schedule II opioi... Start Date: 11/27/21 Status: Orderedaspirin 81 mg oral delayed release tablet 81 mg, 1, tablet, By Mouth, Daily, # 30 tablet, Refills 0, Tot. Refills 0, Maintenance, 11/27/21 15:02:00 EDT, Route to Pharmacy Electronically, [facility] 3, Partial fill upon patient request if [...] 11/27/21 15:29:00 EDT, Route to Pharmacy Electronically, [facility] 3, Partial fill upon patient request if the prescription is for a schedul... Start Date: 11/27/21 Status: OrderedclonazePAM 1 mg oral tablet TAKE 1 TABLET BY MOUTH DAILY at bedtime Start Date: 09/06/21 Status: Orderedergocalciferol 58914 iu oral capsule TAKE 1 CAPSULE BY MOUTH ONCE WEEKLY ON TUESDAY MORNING Start Date: 09/06/21 Status: Orderedferrous fumarate 325 mg oral tablet 1 tablet = 325 mg, By Mouth, Daily, # 30 tablet, 0 Refills, Maintenance, 11/10/21 12:47:00 EDT, Tablet, [facility] 3, Partial fill upon patient request if [...] 12:44:00 EDT, Route to Pharmacy Electronically, [facility] 3, Partial fill upon patient request if [...] Refills, Maintenance, 09/06/21 14:55:00 EDT, Suspension, [facility] 3, Partial fill upon patient request if [...] 14:59:00 EDT, Route to Pharmacy Electronically, [facility] 3, Partial fill upon patient request if [...] information Care Team PersonnelName: Isabela Holly Position: [facility] RN Member Role: Primary Care Nurse Name: Subha Krishna RN Position: [facility] RN Member Role: Primary Care Nurse Name: Renetta Soriano RN Position: [facility] AMB Nurse Member Role: Primary Care Nurse Name: Riana Puentes Position: [facility] Outreach Member Role: Lifetime Consulting Physician Name: Zenaida Last RN Position: [facility] RN Member Role: Primary Care Nurse Name: Nilsa Gupta RN Position: S RN Member Role: Primary Care Nurse Name: Macie Link DO Position: [facility] Outreach Member Role: PCP Address: Address: [address] [place] [id number]- [place] Name: Dinh Luo RN Position: S RN Member Role: Primary Care Nurse Name: Mert Cowan Position: [facility] Associate Professional Member Role: Lifetime Consulting Provider Address: Address: [address] [place] [id number]- Name: Xenia Bains RN Position: [facility] RN Member Role: Primary Care Nurse Name: Jeffery Diaz MD Position: [facility] Renal MD Member Role: Lifetime Consulting Physician Address: Address: [address] [place] [address] [address] [facility], [place] [address]- Name: Jayme Nevarez RN Position: [facility] RN Member Role: Primary Care Nurse Name: Jane Gilmore RN Position: [facility] Onco RN Member Role: Primary Care Nurse Name: Jacki Page RN, I Position: [facility] RN Member Role: Primary Care Nurse Care Team Related PersonsName: PUSHPA OCHOA Address: home [address] [place] [address] Name: MARGARITA TURNER Address: home [address] [address]
--- OUTSIDE RECORDS SUMMARY | 2022-06-15 19:32 | XMS_ITS | Continuity of Care Document ---
:1960 Author Organization [facility] Address [address] [place] [address]- Care Team Providers Name Role Phone Macie Link DO Primary Care Physician Encounter [facility] Date(s): 12/15/21 - 12/15/[address] [address] Discharge Disposition: A-D/C Home Attending Physician: Javon Wooten MD Admitting Physician: Javon Wooten MD Referring Physician: Javon Wooetn MD Allergies, Adverse Reactions, Alerts No Known [...] 11/27/21 15:04:00 EDT, Route to Pharmacy Electronically, [facility] 3, Partial fill upon patient request if the prescription is for a schedule II opioi... Start Date: 11/27/21 Status: Orderedaspirin 81 mg oral delayed release tablet 81 mg, 1, tablet, By Mouth, Daily, # 30 tablet, Refills 0, Tot. Refills 0, Maintenance, 11/27/21 15:02:00 EDT, Route to Pharmacy Electronically, [facility] 3, Partial fill upon patient request if the prescription is for a schedule II opioi... Start Date: 11/27/21 Status: Orderedcarvedilol 12.5 mg oral tablet 12.5 mg, 1, tablet, By Mouth, 2 times a day, # 60 tablet, Refills 0, Tot. Refills 0, Maintenance, 11/27/21 15:29:00 EDT, Route to Pharmacy Electronically, [facility] 3, Partial fill upon patient request if the prescription is for a schedul... Start Date: 11/27/21 Status: Orderedcarvedilol 25 mg oral tablet 25 mg, 1, tablet, By Mouth, 2 times a day, # 60 tablet, Refills 0, Tot. Refills 0, Maintenance, 11/27/21 15:29:00 EDT, Route to Pharmacy Electronically, [facility], Partial fill upon patient request if the prescription is for a schedule... Start Date: 11/27/21 Status: OrderedclonazePAM 1 mg oral tablet TAKE 1 TABLET BY MOUTH DAILY at bedtime Start Date: 09/06/21 Status: Orderedergocalciferol 06060 iu oral capsule TAKE 1 CAPSULE BY MOUTH ONCE WEEKLY ON Tuesday Start Date: 09/06/21 Status: Orderedferrous fumarate 325 mg oral tablet 1 tablet = 325 mg, By Mouth, Daily, # 30 tablet, 0 Refills, Maintenance, 11/10/21 12:47:00 EDT, Tablet, [facility], Partial fill upon patient [...] 11/10/21 12:44:00 EDT, Route to Pharmacy Electronically, [facility], Partial fill upon patient [...] Refills, Maintenance, 11/10/21 12:43:00 EDT, REC Powder, [facility], Partial fill upon patient request if the prescription is for a schedule II... Start Date: 11/10/21 Status: Orderedomeprazole 40 mg oral enteric coated capsule 1 capsule = 40 mg, By Mouth, 2 times a day, TAKE 1 CAPSULE BY MOUTH EVERY MORNING BEFORE A MEAL, # 60 capsule, 0 Refills, Maintenance, 09/06/21 14:55:00 EDT, Suspension, [facility], Partial fill upon patient request if the prescription i... Start Date: 09/06/21 Status: OrderedoxyCODONE 5 mg oral tablet 5 mg, 1, tablet, By Mouth, Every 6 hours, PRN, for 2 days, # 8 tablet, Refills 0, Tot. Refills 0, Acute 12/17/21 16:46:00 EDT, as needed for pain, 12/15/21 16:46:00 EDT, Print Requisition, Partial fillupon patient request if the prescription is for a... Start Date: 12/15/21 Stop Date: 12/17/21 Status: OrderedOxyCODONE IR Tablet 5 mg, Tablet, By Mouth, Every 4 hours, in PACU ONLY, if patient can tolerate PO, PRN for Pain , Mild, Routine, 12/15/21 16:45:00 EDT Start Date: 12/15/21 Stop Date: 12/22/21 Status: OrderedPentips 32 gauge x 5/32 needle [...] 09/06/21 14:59:00 EDT, Route to Pharmacy Electronically, [facility], Partial fill upon patient [...] to oldest 1 2 3 [Reference Range]: Weight 84.9 kg (12/15/21 3:02 PM) Oxygen Saturation [94-100 %] 95 % 100 % 99 % (12/15/21 4:45 PM) (12/15/21 4:30 PM) (12/15/21 3:0 2 PM) Pulse Rate [55-90 bpm] 66 bpm (12/15/21 3:02 PM) Blood Pressure [90-138/55-84 mm 138/74 mm Hg 134/81 mm Hg 145/71 mm Hg Hg] (12/15/21 4:45 PM) (12/15/21 4:30 PM) *H* (12/15/21 3:02 PM ) Respiratory Rate [16-30 br/min] 20 br/min 18 br/min 16 br/min (12/15/21 5:35 PM) (12/15/21 4:45 PM) (12/15/21 4:3 0 PM) Temperature [96.8-100.4 DegF] 97.5 DegF 98.7 DegF (12/15/21 4:30 PM) (12/15/21 3:02 PM) Liters per Minute 5 L/min (12/15/21 4:30 PM) Mode of Delivery (Oxygen) Room air Simple face mask Room air (12/15/21 4:45 PM) (12/15/21 4:30 PM) (12/15/21 3:0 2 PM) Blood pressure sites Arm, right (12/15/21 4:30 PM) Temperature Route Temporal Temporal (12/15/21 4:30 PM) (12/15/21 3:02 PM)
--- OUTSIDE RECORDS SUMMARY | 2022-06-15 19:32 | XMS_ITS | Continuity of Care Document ---
:1960 Author Organization [facility] Address [address] [place] [id number]- Care Team Providers Name Role Phone Macie Link DO Primary Care Physician [facility]counter [facility] Date(s): 01/21/22 - 03/23/[address] [address] Attending Physician: Cameron Ferrara MD [...] 11/27/21 15:04:00 EDT, Route to Pharmacy Electronically, [facility] 3, Partial fill upon patient request if the prescription is for a schedule II opioi... Start Date: 11/27/21 Status: Orderedaspirin 81 mg oral delayed release tablet 81 mg, 1, tablet, By Mouth, Daily, # 30 tablet, Refills 0, Tot. Refills 0, Maintenance, 11/27/21 15:02:00 EDT, Route to Pharmacy Electronically, [facility] 3, Partial fill upon patient request if the prescription is for a schedule II opioi... Start Date: 11/27/21 Status: Orderedcarvedilol 12.5 mg oral tablet 12.5 mg, 1, tablet, By Mouth, 2 times a day, # 60 tablet, Refills 0, Tot. Refills 0, Maintenance, 11/27/21 15:29:00 EDT, Route to Pharmacy Electronically, [facility] 3, Partial fill upon patient request if the prescription is for a schedul... Start Date: 11/27/21 Status: Orderedcarvedilol 25 mg oral tablet 25 mg, 1, tablet, By Mouth, 2 times a day, # 60 tablet, Refills 0, Tot. Refills 0, Maintenance, 11/27/21 15:29:00 EDT, Route to Pharmacy Electronically, [facility], Partial fill upon patient request if the prescription is for a schedule... Start Date: 11/27/21 Status: OrderedclonazePAM 1 mg oral tablet TAKE 1 TABLET BY MOUTH DAILY at bedtime Start Date: 09/06/21 Status: Orderedergocalciferol 50092 iu oral capsule TAKE 1 CAPSULE BY MOUTH ONCE WEEKLY ON Tuesday Start Date: 09/06/21 Status: Orderedferrous fumarate 325 mg oral tablet 1 tablet = 325 mg, By Mouth, Daily, # 30 tablet, 0 Refills, Maintenance, 11/10/21 12:47:00 EDT, Tablet, [facility] 3, Partial fill upon patient request if [...] 12:44:00 EDT, Route to Pharmacy Electronically, [facility], Partial fill upon patient request [...] Maintenance, 11/10/21 12:43:00 EDT, REC Powder, [facility], Partial fill upon patient request if the prescription is for a schedule II... Start Date: 11/10/21 Status: Orderedomeprazole 40 mg oral enteric coated capsule 1 capsule = 40 mg, By Mouth, 2 times a day, TAKE 1 CAPSULE BY MOUTH EVERY MORNING BEFORE A MEAL, # 60 capsule, 0 Refills, Maintenance, 09/06/21 14:55:00 EDT, Suspension, [facility], Partial fill upon patient request [...] 14:59:00 EDT, Route to Pharmacy Electronically, [facility], Partial fill upon patient request [...] information PersonnelName: Macie Link DO Address: Address: [address] [place] [id number]
--- OUTSIDE RECORDS SUMMARY | 2022-06-15 19:32 | XMS_ITS | Continuity of Care Document ---
:1960 Author Organization [facility] Address [address] [place] [address]- Care Team Providers Name Role Phone Macie Link DO Primary Care Physician Encounter [facility] Date(s): 01/18/22 - 01/18/[address] [address]- Discharge Disposition: A-D/C Walkout Attending Physician: Stuart Minaya MD Admitting Physician: Stuart Minaya MD Referring Physician: Not on Staff, Referring [...] 11/27/21 15:04:00 EDT, Route to Pharmacy Electronically, [facility] 3, Partial fill upon patient request if the prescription is for a schedule II opioi... Start Date: 11/27/21 Status: Orderedaspirin 81 mg oral delayed release tablet 81 mg, 1, tablet, By Mouth, Daily, # 30 tablet, Refills 0, Tot. Refills 0, Maintenance, 11/27/21 15:02:00 EDT, Route to Pharmacy Electronically, [facility] 3, Partial fill upon patient request if the prescription is for a schedule II opioi... Start Date: 11/27/21 Status: Orderedcarvedilol 12.5 mg oral tablet 12.5 mg, 1, tablet, By Mouth, 2 times a day, # 60 tablet, Refills 0, Tot. Refills 0, Maintenance, 11/27/21 15:29:00 EDT, Route to Pharmacy Electronically, [facility] 3, Partial fill upon patient request if the prescription is for a schedul... Start Date: 11/27/21 Status: Orderedcarvedilol 25 mg oral tablet 25 mg, 1, tablet, By Mouth, 2 times a day, # 60 tablet, Refills 0, Tot. Refills 0, Maintenance, 11/27/21 15:29:00 EDT, Route to Pharmacy Electronically, [facility], Partial fill upon patient request if the prescription is for a schedule... Start Date: 11/27/21 Status: OrderedclonazePAM 1 mg oral tablet TAKE 1 TABLET BY MOUTH DAILY at bedtime Start Date: 09/06/21 Status: Orderedergocalciferol 81748 iu oral capsule TAKE 1 CAPSULE BY MOUTH ONCE WEEKLY ON Tuesday Start Date: 09/06/21 Status: Orderedferrous fumarate 325 mg oral tablet 1 tablet = 325 mg, By Mouth, Daily, # 30 tablet, 0 Refills, Maintenance, 11/10/21 12:47:00 EDT, Tablet, [facility], Partial fill upon [...] [facility], Partial fill upon [...] Refills, Maintenance, 11/10/21 12:43:00 EDT, REC Powder, [facility], Partial fill upon patient request if the prescription is for a schedule II... Start Date: 11/10/21 Status: Orderedomeprazole 40 mg oral enteric coated capsule 1 capsule = 40 mg, By Mouth, 2 times a day, TAKE 1 CAPSULE BY MOUTH EVERY MORNING BEFORE A MEAL, # 60 capsule, 0 Refills, Maintenance, 09/06/21 14:55:00 EDT, Suspension, [facility], Partial fill upon [...] 09/06/21 14:59:00 EDT, Route to Pharmacy Electronically, [facility], Partial fill upon [...] Most recent to oldest [Reference Range]: 1 Oxygen Saturation [94-100 %] 100 % (01/18/22 12:27 PM) Pulse Rate [55-90 bpm] 65 bpm (01/18/22 12:27 PM) Blood Pressure [90-138/55-84 mm Hg] 133/72 mm Hg (01/18/22 12: PM) Respiratory Rate [16-30 br/min] 18 br/min (01/18/22 12: PM) Temperature [96.8-100.4 DegF] 97.3 DegF (01/18/22 12: PM) Mode of Delivery (Oxygen) Room air (01/18/22 12:27 PM) Blood pressure sites Arm, right (01/18/22 12:27 PM) Temperature Route Oral (01/18/22 12: PM)
--- OUTSIDE RECORDS SUMMARY | 2022-06-15 19:33 | XMS_ITS ---
:1960 Author Organization [facility], NA DOCUMENT DISCLAIMER The information in the [facility] Continuity of Care Document represents a summary of certain health and medical information. It may not contain the complete medical history for the patient and should be independently verified. The represented time in the document is Eastern Time. PROBLEMS Problem Code Status Onset Date Encounter for immunization Z23 Active Apr Hyperlipidemia, unspecified E78.5 Active 2021 Coagulation defect, unspecified D68.9 Active March 22, 2022 Hypokalemia E87.6 Active January 29 Iron deficiency anemia, unspecified D50.9 Active January 05, 2022 Anemia in chronic kidney disease D63.1 Active January 05, 2022 Secondary hyperparathyroidism of renal N25.81 Active January 05, 2022 origin Fever, unspecified R50.9 Active January 05, 2022 Pruritus, unspecified L29.9 Active December Shortness of breath R06.02 Active January 05, 2022 End stage renal disease N18.6 Active January 05, 2022 Allergy, unspecified, initial encounter T78.40XA Active January 05, 2022 Anaphylactic shock, unspecified, initial T78.2XXA Activ e January 05, 2022 encounter Pain, unspecified R52 Active January 05 Diarrhea, unspecified R19.7 Active December Nausea R11.0 Active January 05, 2022 Type 2 diabetes mellitus with diabetic E11.22 Active January 05, 2022 chronic kidney disease Essential (primary) hypertension I10 Active January 05, 2022 Unspecified cirrhosis of liver K74.60 Active January 05, 2022 Chronic kidney disease, stage 5 N18.5 Active January 05, 2022 ALLERGIES AND ADVERSE REACTIONS No Known Allergies SOCIAL HISTORY Tobacco Use Status Tobacco Type Unknown if ever consumed tobacco - Caregiver Characteristics No Information Available Characteristics of Home environment No Information Available MEDICATIONS Prescribed Medications for Dialysis Treatments Medication Instructions Dosage Route Start Date End Date Statu s Heparin Post Dialysis, 1900 Arterial Red January 06December 09, Active Sodium Every Treatment units Port 2021 2022 (Porcine) 1,000 Units/mL Catheter Lock Arterial Heparin Post Dialysis, 1900 Venous Blue January 06December 0 9, Active Sodium Every Treatment units Port 2021 2022 (Porcine) 1,000 Units/mL Catheter Lock Venous Heparin Bolus, Every 4000 Intravenous February Ac tive Sodium Treatment, units - push 2021 (Porcine) Total treatment 1,000 minutes 240 Units/mL Systemic Iron Sucrose During 100 mg Intravenous May Ac tive (Venofer) Dialysis, Every - push 2022 Treatment Mircera During 200 mcg Intravenous May Active Dialysis, Every - push 2022 2 weeks Vitamin D 2X Week 0.25 Oral January Active (Calcitriol) mcg 2021 Oral Mircera During 150 mcg Intravenous April Discon tinued Dialysis, Every - push 2021 2 weeks Home Medications Medication Instructions Dosage Route Start Date End Date Statu s amlodipine 10 mg Take by mouth 1 tablet ORAL December 17, Active once a day 2021 aspirin 81 mg Take by mouth 1 tablet ORAL December 17, Active once a day 2021 atorvastatin 80 mg ORAL January carvedilol 25 mg Take by mouth 1 tablet ORAL December 17, Active twice a day as 2021 directed cholecalciferol Take by mouth 1 tablet ORAL December 17, Active (vitamin D3) 50 mcg once a day 2021 (2,000 unit) cyanocobalamin by mouth once a 1 tablet ORAL December 17, Active (vitamin B-12) day 2021 1,000 mcg ferrous sulfate Take by mouth 1 tablet ORAL December 17, Active 325 mg (65 mg iron) once a day 2021 furosemide 40 mg ORAL January Active 2021 hydralazine 25 mg ORAL January Active 2021 levothyroxine 112 Take by mouth 1 tablet ORAL December 17, Active mcg once a day 2021 omega-3 acid ethyl Take by mouth 2 capsule ORAL December 17, Active esters 1 gram twice a day 2021 omeprazole 40 mg Take by mouth 1 capsule ORAL December 17, Active once a day 2021 oxycodone-acetamin Take by mouth 1 tablet ORAL December 17, Active ophen 10-325 mg every four hours 2021 as needed for pain rosuvastatin 10 mg by mouth every 1 tablet ORAL December 17, Active night 2021 sodium bicarbonate Take by mouth 1 tablet ORAL December 17, Active 650 mg twice a day 2021 sodium polystyrene Take dissolved 30 gram ORAL December 17, Active sulfonate in water once a 2021 day tamsulosin 0.4 mg Take by mouth 1 capsule ORAL December 17, Active every night 2021 zolpidem 10 mg ORAL January tive 2021 VITAL SIGNS Post-Treatment Vital Signs Vital Sign Value Date / Time Blood Pressure-sitting 147/77 mmHg June 14, 2022 07:41 AM Blood Pressure-standing 121/66 mmHg June 14, 2022 07:41 AM Heart Rate 95 beats per minute June 14, 2022 07: 41 AM Respiratory Rate 20 breaths per minute June 14, 2022 0 7:41 AM Temperature 98.0 deg. F June 14, 2022 07: 41 AM Weight Vital Sign Value Date / Time Estimated Dry Weight 82.5 kg March 08, 2022 11 :59 PM Pre-Dialysis 85.70 kg June 14, 2022 07: 41 AM Post-Dialysis 83.60 kg June 14, 2022 07: 41 AM Other Other Value Date / Time Height 167.64 cm December 17, 2021 12:00 AM HEALTH CONCERNS Tuberculosis Testing TST Date Administered TST Date Read TST Result 12/18/2021 12/21/2021 Negative (<5) mm LAB RESULTS Hematology Result Type Result Value Relevant Reference Interpretation Date Range HGB 11.1 g/dL Males: 14.0 - 18.0 Low May 19, g/dL Females: 12.0 2021 - 16.0 g/dL Hemoglobin x 3 33.3 % Male: 14.0 - 18.0 Low May 19, g/dL; Female: 2021 12.0-16.0 g/dL HGB 9.7 g/dL Males: 14.0 - 18.0 Low May 26, g/dL Females: 12.0 2021 - 16.0 g/dL Hemoglobin x 3 29.1 % Male: 14.0 - 18.0 Low May 26, g/dL; Female: 2021 12.0-16.0 g/dL Iron 53 mcg/dL Females: 30-160 - June 02, 2022 mcg/dL Males: 45-160 mcg/dL Ferritin 652 ng/mL Males: 22 - 322 High June 02, 2022 ng/mL; Females: 10 - 291 ng/mL RDW 16.0 % No Reference range High May provided HGB 10.4 g/dL Males: 14.0 - 18.0 Low May g/dL Females: 12.0 - 16.0 g/dL Hemoglobin x 3 31.2 % Male: 14.0 - 18.0 Low June 02, 2022 g/dL; Female: 12.0-16.0 g/dL Retic HGB (CHr) 29.9 pg 25.4-31.8 pg - June 02, 2022 MCH 28.9 pg 27 - 31 pg/cell - June 02, 2022 MCHC 32.7 g/dL 30 - 36 g/dL - June 02 3 Transferrin Sat. 20 % 20-55% - June 02, 2022 (Calc) TIBC (Calc) 266 mcg/dL 185-515 mcg/dL - June 02 WBC (No Diff) 8.92 1000/mcL 4.8-10.8 thous/mcL - June 02, 2022 RBC 3.59 mill/mcL Males: 4.70 - 6.10 Low June 02, 2022 mill/mcL Females: 4.20 - 5.40 mill/mcL HCT 31.7 % Males: 42 - 52% Low June 02, 2022 Females: 37 - 47% UIBC/TIBC 213 mcg/dL 155-355 mcg/dL - June 02 Ferritin 495 ng/mL Males: 22 - 322 High June 07, 2022 ng/mL; Females: 10 - 291 ng/mL Transferrin (not 192 mg/dL 203-362 mg/dL Low May required for TSAT calculation) Hemoglobin x 3 31.5 % Male: 14.0 - 18.0 Low June 09, 2022 g/dL; Female: 12.0-16.0 g/dL HGB 10.5 g/dL Males: 14.0 - 18.0 Low May 302022 g/dL Females: 12.0 - 16.0 g/dL Metabolic/Renal Result Type Result Value Relevant Reference Interpretation Date Range BUN, Post 19 mg/dL 6-19 mg/dL - June 02 3 Bicarbonate 21 mEq/L 22-29 mEq/L Low June 02 3 Chloride 104 mEq/L 96-108 mEq/L - June 02 3 Potassium 5.1 mEq/L 3.5-5.1 mEq/L - June 02 Sodium 140 mEq/L 136-145 mEq/L - June 02 BUN/Creat Ratio 6.7 10-20 Low June 02, 2022 Creatinine, Serum 9.62 mg/dL 0.6-1.3 mg/dL High May BUN 64 mg/dL 6-19 mg/dl High June 02 3 URR, Calc 70 % 65 - 80% - June 02 3 Hemoglobin A1c 7.0 % 4.8-5.9% High June 02 023 HD Adequacy Result Type Result Value Relevant Reference Interpretation Date Range eKt/V 1.27 No Reference range Normal May ([place]) provided spKt/V ([place] 1.45 No Reference range Normal [facility]2022 II) provided Bone/Mineral Result Type Result Value Relevant Reference Interpretation Date Range Magnesium 2.6 mg/dL 1.6-2.6 mg/dL - June 02 Corrected Ca x P 47 < 55 - June 02, 2022 Product Alkaline Phosphatase 115 U/L Males: 40-129 U/L, - J anuary 2022 > 15 yrs Females: 35 - 104 U/L, > 15 yrs Ca x P Product 46 < 55 - June 02 023 Phosphorus 5.4 mg/dL 2.6-4.5 mg/dL High June 02 Calcium, Total 8.5 mg/dL 8.4-10.2 mg/dL - June 02, 2022 PTH-Intact, Plasma 330 pg/mL 16 to 80 pg/mL High June 02, 2022 Liver/Nutrition Result Type Result Value Relevant Reference Interpretation Date Range Albumin (BCG) 3.7 g/dL 3.5-5.2 g/dL - June 02 SGPT (ALT) 12 U/L No reference range - May provided Infectious Diseases Result Type Result Value Relevant Reference Interpretation Date Range Hep B core Ab Negative Negative - January 06 2 Total (anti-HBc) Hep B Surface Ab 12 mIU/mL < 10 mIU/mL, Non- - Octobe r 2021 (anti-HBs) Immune HCV Ab (anti-HCV) Nonreactive Non-Reactive - February Hep B Surface Ag Negative Negative - June 02, 2022 (HBsAg) DIALYSIS PRESCRIPTION Conventional Hemodialysis Data Element Value Order Date/Time March 08, 2022 Frequency 3X Week Treatment Days MonWedFri Dialyzer 160NRe Optiflux Treatment Time (Total Minutes) 240 min Blood Flow Rate (mL/min) 450 mL/min Dialysate Flow Rate Manual 500 Estimated Dry Weight 82.5 kg Dialysate Concentrate 2.0 K, 2.50 Ca, 1.0 Mg, 100 Dextrose ([id number]) Sodium (mEq/L) 138 mEq/L Bicarb Machine Setting (mEq/L) 34 mEq/L Dialysis Access Hemodialysis-CV Catheter-Sammy neled, Chest, Right Jugular Access Placed on December 14 022 IMMUNIZATIONS Vaccine Date Dose Route Status PNEUMOVAX May 28, 2022 0.5 mL Intramuscular Compl eted Moderna COVID-19 March 12, 2022 0.5 mL Intramuscular Co mpleted Vaccine, Bivalent, Booster TRANSPLANT WAITLIST STATUS No Information on Transplant Waitlist Status ADVANCE DIRECTIVES Directive Description Ordered By Effective Date Resuscitation status Full Code Anastacio Nickerson Jan 06 2 DIALYSIS TREATMENTS Conventional Hemodialysis Date Pre-Treatment Post-Treatment Duration BFR Dialysate Dialyzer Dialysis Meds Vitals Vitals (hr) (mL/min) Access Admin May Weight 85.50 Weight 82.50 03:57:00 400 2.0 K, 160nre Hemodia lysis-CV Catheter-Tunneled, Chest, Right Jugular Heparin Sodium (Porcine) 1,000 Units/mL Catheter Lock Arterial; 1900units,Arterial Red Port 2022 kg kg 2.50 Ca, Optiflux Access Lary rosalia on December 14, 2021 Heparin Sodium (Porcine) 1,000 Units/mL Catheter Lock Venous; 1900units,Venous Blue Port 1.0 Mg, Heparin Sodi um (Porcine) 1,000 Units/mL Systemic; 4000units,Intravenous - push 100 Iron Sucrose ( Venofer); 100mg,Intravenous - push Dextrose ([id number]) Blood Pressure-sitting 143/73 mmHg Blood Pressure-sitting 11 0/71 mmHg Blood Pressure-standing 114/63 mmHg Blood Pressure-standing 100/70 mmHg Heart Rate 67 beats per Heart Rate 65 beats per minute minute Respiratory Rate 17 breaths per Respiratory Rate 18 breaths per minute minute Temperature 98.2 deg. F Temperature 97.6 deg. F May Weight 85.60 Weight 82.20 04:03:00 450 2.0 K, 160nre Hemodia lysis-CV Catheter-Tunneled, Chest, Right Jugular Heparin Sodium (Porcine) 1,000 Units/mL Catheter Lock Arterial; 1900units,Arterial Red Port 132022 kg kg 2.50 Ca, Optiflux Access Lary rosalia on December 14, 2021 Heparin Sodium (Porcine) 1,000 Units/mL Catheter Lock Venous; 1900units,Venous Blue Port 1.0 Mg, Iron Sucrose (Venofer); 100mg,Intravenous - push 100 Vitamin D (Theron citriol) Oral; 0.25mcg,Oral Dextrose ([id number]) Blood Pressure-sitting 129/77 mmHg Blood Pressure-sitting 13 3/76 mmHg Blood Pressure-standing 118/57 mmHg Blood Pressure-standing 109/68 mmHg Heart Rate 73 beats per Heart Rate 67 beats per minute minute Respiratory Rate 17 breaths per Respiratory Rate 18 breaths per minute minute Temperature 98.1 deg. F Temperature 97.0 deg. F May Weight 85.70 Weight 83.60 04:05:00 450 2.0 K, 160nre Hemodia lysis-CV Catheter-Tunneled, Chest, Right Jugular Heparin Sodium (Porcine) 1,000 Units/mL Catheter Lock Arterial; 1900units,Arterial Red Port 162022 kg kg 2.50 Ca, Optiflux Access Lary rosalia on December 14, 2021 Heparin Sodium (Porcine) 1,000 Units/mL Catheter Lock Venous; 1900units,Venous Blue Port 1.0 Mg, Heparin Sodi um (Porcine) 1,000 Units/mL Systemic; 4000units,Intravenous - push 100 Iron Sucrose ( Venofer); 100mg,Intravenous - push Dextrose Vitamin D ( Calcitriol) Oral; 0.25mcg,Oral ([id number]) Blood Pressure-sitting 131/68 mmHg Blood Pressure-sitting 14 7/77 mmHg Blood Pressure-standing 111/64 mmHg Blood Pressure-standing 121/66 mmHg Heart Rate 66 beats per Heart Rate 95 beats per minute minute Respiratory Rate 20 breaths per Respiratory Rate 20 breaths per minute minute Temperature 96.6 deg. F Temperature 98.0 deg. F
--- OUTSIDE RECORDS SUMMARY | 2022-06-15 19:33 | XMS_ITS | Continuity of Care Document ---
:1960 Author Organization [facility] Address [address] [place] [id number]- Care Team Providers Name Role Phone Macie Link DO Primary Care Physician Encounter [facility] Date(s): 11/07/21 - 11/10/[address] [address]- Encounter Diagnosis Hypoglycemia (Final) - 11/07/21 Discharge Disposition: A-D/C Home Attending Physician: Laura Gilliam MD Admitting Physician: Sg Goodson MD Referring Physician: Not on Staff, Referring [...] THREE TIMES DAILY Start Date: 09/06/21 Status: Orderedaspirin-dipyridamole 25 mg-200 mg oral capsule, extended release 1 capsule, By Mouth, 2 times a day, # 60 capsule, 0 Refills, Maintenance, 11/10/21 12:50:00 EDT, CR Capsule, [facility], Partial fill upon patient request if the prescription is for a schedule II opioid drug., 1 capsule By Mouth 2 times... Start Date: 11/10/21 Stop Date: 12/10/21 Status: Orderedcarvedilol 12.5 mg oral tablet 12.5 mg, Tablet, By Mouth, 11/10/21 9:00:00 EDT Start Date: 11/10/21 Stop Date: 11/10/21 Status: CompletedclonazePAM 1 mg oral tablet TAKE 1 TABLET BY MOUTH DAILY at bedtime Start Date: 09/06/21 Status: OrderedCoreg 12.5 mg oral tablet 12.5 mg, 1, tablet, By Mouth, 2 times a day, # 60 tablet, Refills 0, Tot. Refills 0, Maintenance, 10/23/21 10:14:00 EDT, Route to Pharmacy Electronically, [facility], Partial fill upon patient request if the prescription is for a s... Start Date: 10/23/21 Status: Ordereddiltiazem 300 mg/24 hours oral capsule, extended release 300 mg, 1, capsule, By Mouth, Daily, # 30 capsule, Refills 0, Tot. Refills 0, Maintenance, 09/06/21 14:56:00 EDT, Route to Pharmacy Electronically, [facility], Partial fill upon patient request if the prescription is for a schedule II op... Start Date: 09/06/21 Status: Ordereddiltiazem 300 mg/24 hours oral capsule, extended release 300 mg, CD Capsule, By Mouth, 11/10/21 9:00:00 EDT Start Date: 11/10/21 Stop Date: 11/10/21 Status: Completedergocalciferol 62176 iu oral capsule TAKE 1 CAPSULE BY MOUTH ONCE WEEKLY ON Tuesday Start Date: 09/06/21 Status: Orderedferrous fumarate 325 mg oral tablet 1 tablet = 325 mg, By Mouth, Daily, # 30 tablet, 0 Refills, Maintenance, 11/10/21 12:47:00 EDT, Tablet, [facility], Partial fill upon patient request [...] OrderedhydrALAZINE 25 mg oral tablet 75 mg, Tablet, By Mouth, 11/10/21 15:00:00 EDT Start Date: 11/10/21 Stop Date: 11/10/21 Status: CompletedhydrALAZINE 25 mg oral tablet 75 mg, 3, tablet, By Mouth, 3 times a day, # 270 tablet, Refills 0, Tot. Refills 0, Maintenance, 11/10/21 12:44:00 EDT, Route to Pharmacy Electronically, [facility], Partial fill upon patient request if the prescription is for a schedule... Start Date: 11/10/21 Status: OrderedhydrALAZINE 25 mg oral tablet 75 mg, Tablet, By Mouth, 11/10/21 9:00:00 EDT Start Date: 11/10/21 Stop Date: 11/10/21 Status: CompletedInsulin Glargine Inj 0.15 mL = 15 units, [...] Refills, Maintenance, 11/10/21 12:43:00 EDT, REC Powder, [facility], Partial fill upon patient request if the prescription is for a schedule II... Start Date: 11/10/21 Status: Orderedomeprazole 40 mg oral enteric coated capsule 1 capsule = 40 mg, By Mouth, 2 times a day, TAKE 1 CAPSULE BY MOUTH EVERY MORNING BEFORE A MEAL, # 60 capsule, 0 Refills, Maintenance, 09/06/21 14:55:00 EDT, Suspension, [facility], Partial fill upon patient request if the prescription i... Start Date: 09/06/21 Status: OrderedoxyCODONE 5 mg oral tablet 10 mg, Tablet, By Mouth, Every 4 hours, PRN for Pain , Severe, Routine, 11/07/21 20:15:00 EDT Start Date: 11/07/21 Stop Date: 11/14/21 Status: OrderedPentips 32 gauge x 5/32 needle [...] 12/10/21 12:43:00 EDT, 11/10/21 12:43:00 EDT, Tablet, [facility], Partial fill upon patient request if the prescription is for a schedule II opioid... Start Date: 11/10/21 Stop Date: 12/10/21 Status: Orderedsucralfate 1 gm oral tablet 1 Gm, 1, tablet, By Mouth, 3 times a day before meals and bedtime, # 120 tablet, Refills 0, Tot. Refills 0, Maintenance, 09/06/21 14:59:00 EDT, Route to Pharmacy Electronically, [facility], Partial fill upon patient request [...] Exam Date Time Procedure Performing Provider Status 11/07/21 1:37 PM Chest 2 Views Frontal and Lat Stefany Mayers; Auth (Verified) Notes:(Chest 2 Views Frontal and Lat) Reason For Exam: Stroke;Other:RESULT: Chest 2 Views Frontal and Lat Chest 2 Views Frontal and Lat Hx of Present Illness: Pt. is from [facility] with LWN 6 10 11 at 9 pm, Stroke alert. This am with slurredspeecha and left sided weakness.; Reason: Other:; Stroke; Clinical Question(s): CHF COMPARISON: 10/20/2021 and 05/01/2013 FINDINGS: LINES AND TUBES: None. LUNGS AND PLEURA: Linear opacity in the left mid/lower lung favored to represent atelectasis. Normal pulmonary vascularity. No pleural effusion. No pneumothorax. HEART, MEDIASTINUM AND JUANA: Mild prominence of the cardiac silhouette, unchanged. Normal upper mediastinal and hilar contour. BONES AND SOFT TISSUES: No acute abnormality. Postoperative changes of the cervical spine. IMPRESSION: Linear opacity in the left mid/lower lung favored to represent atelectasis. WSN: [id number] Ordering Physician: Perlita Christian Dictated By: Glenn Ross MD Dictated Date/Time: 11/07/21 1:39 pm Reviewed By: Glenn Ross MD Signed By: Glenn Ross MD Signed Date/Time: 11/07/21 1:39 pm Transcribed By: EDISON Transcribed Date/Time: 11/07/21 1:37 pm Vital Signs Most recent to oldest 1 2 3 4 5 [Reference Range]: Height 168 cm 168 cm 168 cm (11/10/21 2:19 AM) (11/09/21 7:51 PM) (11/09/21 2:38 PM) Weight 93.2 kg 89.2 kg 91.5 kg (11/10/21 2:19 AM) (11/09/21 2:19 AM) (11/08/21 8:06 AM) Oxygen Saturation 99 % 100 % 97 % [94-100 %] (11/10/21 2:22 PM) (11/10/21 8:00 AM) (11/10/21 2:19 AM) Pulse Rate [55-90 65 bpm 71 bpm 71 bpm bpm] (11/10/21 2:22 PM) (11/10/21 10:15 AM) (11/10/21 10:15 AM) Body Mass Index 33.02 31.6 32.42 [18.5-24.99] *>HHI* *>HHI* *>HHI* (11/10/21 2:19 AM) (11/09/21 2:19 AM) (11/07/21 10:29 PM) Blood Pressure 152/77 mm Hg 152/77 mm Hg 163/82 mm Hg 163/82 mm Hg 16 3/82 mm Hg [90-138/55-84 mm Hg] *H* *H* *H* *H* *H* (11/10/21 4:11 PM) (11/10/21 2:22 PM) (11/10/21 10:15 AM) ( 10:15 AM) (11/10/21 10:15 AM) Respiratory Rate 20 br/min 20 br/min 17 br/min [16-30 br/min] (11/10/21 2:22 PM) (11/10/21 10:27 AM) (11/10/21 8:00 AM) Temperature 98.1 DegF 98.3 DegF 98.4 DegF [96.8-100.4 DegF] (11/10/21 2:22 PM) (11/10/21 8:00 AM) (11/09/21 7:51 P M) Mode of Delivery Room air Room air CPAP (Oxygen) (11/10/21 2:22 PM) (11/10/21 8:00 AM) (11/10/21 2:19 AM) Blood pressure sites Arm, right Arm, right Arm, right (11/10/21 2:22 PM) (11/10/21 8:00 AM) (11/10/21 2:19 AM) Temperature Route Oral Oral Oral (11/10/21 2:22 PM) (11/10/21 8:00 AM) (11/09/21 7:51 PM) Dry Weight 91.5 kg 91.5 kg (11/08/21 2:02 AM) (11/07/21 10:29 PM) Weight Obtained Via Bed scale Bed scale Bed scale (11/10/21 2:19 AM) (11/09/21 2:19 AM) (11/08/21 2:33 AM)
--- OUTSIDE RECORDS SUMMARY | 2022-06-15 19:33 | XMS_ITS | Continuity of Care Document ---
:1960 Author Organization [facility] Address [address] [place] [address]- Care Team Providers Name Role Phone Macie Link DO Primary Care Physician [facility]counter [facility] Date[facility]s): 11/17/21 - 03/06/22 [facility] [address] [place] [id number] Attending Physician: Stuart Bonner MD Admitting Physician: Stuart Bonner MD Referring Physician: Macie Link DO Allergies, [...] 11/27/21 15:04:00 EDT, Route to Pharmacy Electronically, [facility], Partial fill upon patient request if the prescription is for a schedule II opioi... Start Date: 11/27/21 Status: Orderedaspirin 81 mg oral delayed release tablet 81 mg, 1, tablet, By Mouth, Daily, # 30 tablet, Refills 0, Tot. Refills 0, Maintenance, 11/27/21 15:02:00 EDT, Route to Pharmacy Electronically, [facility], Partial fill upon patient request if the prescription is for a schedule II opioi... Start Date: 11/27/21 Status: Orderedcarvedilol 12.5 mg oral tablet 12.5 mg, 1, tablet, By Mouth, 2 times a day, # 60 tablet, Refills 0, Tot. Refills 0, Maintenance, 11/27/21 15:29:00 EDT, Route to Pharmacy Electronically, [facility], Partial fill upon patient request if the prescription is for a schedul... Start Date: 11/27/21 Status: Orderedcarvedilol 25 mg oral tablet 25 mg, 1, tablet, By Mouth, 2 times a day, # 60 tablet, Refills 0, Tot. Refills 0, Maintenance, 11/27/21 15:29:00 EDT, Route to Pharmacy Electronically, [facility], Partial fill upon patient request if the prescription is for a schedule... Start Date: 11/27/21 Status: OrderedclonazePAM 1 mg oral tablet TAKE 1 TABLET BY MOUTH DAILY at bedtime Start Date: 09/06/21 Status: Orderedergocalciferol 37464 iu oral capsule TAKE 1 CAPSULE BY MOUTH ONCE WEEKLY ON Tuesday Start Date: 09/06/21 Status: Orderedferrous fumarate 325 mg oral tablet 1 tablet = 325 mg, By Mouth, Daily, # 30 tablet, 0 Refills, Maintenance, 11/10/21 12:47:00 EDT, Tablet, [facility], Partial fill upon patient [...] 11/10/21 12:44:00 EDT, Route to Pharmacy Electronically, [facility], Partial fill upon patient [...] Refills, Maintenance, 11/10/21 12:43:00 EDT, REC Powder, [facility], Partial fill upon patient request if the prescription is for a schedule II... Start Date: 11/10/21 Status: Orderedomeprazole 40 mg oral enteric coated capsule 1 capsule = 40 mg, By Mouth, 2 times a day, TAKE 1 CAPSULE BY MOUTH EVERY MORNING BEFORE A MEAL, # 60 capsule, 0 Refills, Maintenance, 09/06/21 14:55:00 EDT, Suspension, [facility], Partial fill upon patient [...] 09/06/21 14:59:00 EDT, Route to Pharmacy Electronically, [facility], Partial fill upon patient [...] pain Confirmed Active Neck pain Confirmed Active Obese class I Confirmed Active Proteinuria Confirmed Active cervical radicular Confirmed Active pain Sleep apnea Confirmed Active Patient Care team information PersonnelName: Macie Link DO Address: Address: [address] [place] [id number]
== END 2022-06-15 20:26 | disposition left against medical advice (07) ==
LOC: HO.ED 19:29
PROVIDERS: Emergency Provider Emergency Medicine; PCP Family Medicine
DX: R10.32 Left lower quadrant pain (principal); Z79.899 Other long term (current) drug therapy
CPT/HCPCS: 36415; 80048; 85025; 99281; 99283

== ENCOUNTER 2022-06-26 09:19 | Emergency (ER) | payer MEDICARE, MEDICAID, SELFPAY ==
--- NOTE | ~2022-06-26 | CT_ITS ---
EXAMINATION: CT ABDOMEN AND PELVIS WITHOUT CONTRAST CLINICAL INFORMATION: Nephrectomy. Gastric cancer. Left upper quadrant pain. COMPARISON: Multiple priors, most recent renal ultrasound dated 11/25/[address] abdomen/pelvis dated 09/01/2021. TECHNIQUE: Multidetector volumetric imaging was performed from the superior aspect of the liver through the pubic symphysis. Sagittal and coronal reformatted images were obtained on the technologist's workstation. This CT examination was performed using dose optimization techniques as appropriate, variously including the following: *Automated exposure control *Adjustment of mA and/or kV according to patient size (this includes techniques or standardized protocols for targeted exams where dose is matched to indication/reason for exam; i.e. extremities or head) *Use of iterative reconstruction technique DLP: 659 mGy-cm FINDINGS: LUNG BASES: Linear scarring within the lingula. The lung bases are otherwise clear. LIVER, GALLBLADDER, AND BILIARY TREE: The liver is again noted to be mildly enlarged. Mildly lobulated contour, unchanged. No parenchymal lesion. No intrahepatic or extrahepatic biliary ductal dilatation. Status post cholecystectomy. PANCREAS: Unremarkable. SPLEEN: Enlarged measuring up to 15.8 cm in greatest dimension, slightly increased when compared to the prior examination where it measured up to 14.5 cm. ADRENAL GLANDS: Unremarkable. KIDNEYS AND URETERS: Status post right nephrectomy. The left kidney is unchanged with no new parenchymal lesion; however, evaluation is limited without IV contrast. Left perinephric stranding is unchanged. No left-sided hydronephrosis or hydroureter. BLADDER: Partially distended and unremarkable. GASTROINTESTINAL TRACT: No bowel wall thickening or associated inflammatory change. No small- or large-bowel obstruction. Appendix not seen. No right lower quadrant inflammatory change. PERITONEAL CAVITY: No intra-abdominal free air or free fluid. ABDOMINAL WALL: Small, fat-containing bilateral inguinal hernias, unchanged. LYMPH NODES: Subcentimeter retroperitoneal and central mesenteric lymph nodes, unchanged. No new or increasing lymphadenopathy. VASCULAR: No abdominal aortic dilatation. Atherosclerotic calcifications. PELVIC VISCERA: Stable prostatomegaly. OSSEOUS STRUCTURES: Unremarkable. CT/CT abdomen pelvis wo IV con IMPRESSION: 1. Mild hepatomegaly with slightly lobulated contour, unchanged. No new hepatic parenchymal lesion or biliary ductal dilatation. 2. Status post right nephrectomy. No new left-sided renal parenchymal lesion; however, evaluation is limited without IV contrast. No hydronephrosis or nephrolithiasis. 3. No new intra-abdominal mass, lymphadenopathy, or ascites. 4. Additional chronic findings are unchanged. Fleischner guidelines were followed.
[2022-06-26 09:21] VITALS: BP 138/73; PULSE 73; RESP 20; TEMP 36.4; O2SAT 96; BMI 29.5
--- OUTSIDE RECORDS SUMMARY | 2022-06-26 09:37 | XMS_ITS | Continuity of Care Document ---
:1960 Author Organization [facility] [place] Address [address] [place] [id number]- Care Team Providers Name Role Phone Macie Link DO Primary Care Physician Encounter [facility] Date(s): 05/17/22 - 06/16/22 [facility] [address] [id number] Attending Physician: Debbie Pope Admitting Physician: AdmDebbie [...] 11/27/21 15:04:00 EDT, Route to Pharmacy Electronically, [facility], Partial fill upon patient request if the prescription is for a schedule II opioi... Start Date: 11/27/21 Status: Orderedaspirin 81 mg oral delayed release tablet 81 mg, 1, tablet, By Mouth, Daily, # 30 tablet, Refills 0, Tot. Refills 0, Maintenance, 11/27/21 15:02:00 EDT, Route to Pharmacy Electronically, [facility], Partial fill upon patient [...] 11/27/21 15:29:00 EDT, Route to Pharmacy Electronically, [facility], Partial fill upon patient request if the prescription is for a schedul... Start Date: 11/27/21 Status: OrderedclonazePAM 1 mg oral tablet TAKE 1 TABLET BY MOUTH DAILY at bedtime Start Date: 09/06/21 Status: Orderedergocalciferol 13924 iu oral capsule TAKE 1 CAPSULE BY MOUTH ONCE WEEKLY ON TUESDAY MORNING Start Date: 09/06/21 Status: Orderedferrous fumarate 325 mg oral tablet 1 tablet = 325 mg, By Mouth, Daily, # 30 tablet, 0 Refills, Maintenance, 11/10/21 12:47:00 EDT, Tablet, [facility], Partial fill upon patient [...] 11/10/21 12:44:00 EDT, Route to Pharmacy Electronically, [facility], Partial fill upon patient [...] 0 Refills, Maintenance, 09/06/21 14:55:00 EDT, Suspension, [facility], Partial fill upon patient [...] 09/06/21 14:59:00 EDT, Route to Pharmacy Electronically, [facility], Partial fill upon patient [...] Care Nurse Name: Renetta Soriano RN Position: [facility] AMB Nurse Member Role: Primary Care Nurse Name: Riana Puentes Position: [facility] Outreach Member Role: Lifetime Consulting Physician Name: Zenaida Lats RN Position: [facility] RN Member Role: Primary Care Nurse Name: Nilsa Gupta RN Position: [facility] RN Member Role: Primary Care Nurse Name: Macie Link DO Position: [facility] Outreach Member Role: PCP Address: Address: [address] [place] [address] Name: Dinh Luo RN Position: [facility] RN Member Role: Primary Care Nurse Name: Mert Cowan Position: [facility] Associate Professional Member Role: Lifetime Consulting Provider Address: Address: [address] [place] [address] Name: Xenia Bains RN Position: [facility] RN Member Role: Primary Care Nurse Name: Jeffery Diaz MD Position: [facility] Renal MD Member Role: Lifetime Consulting Physician Address: Address: [address] [place] [address] [address] [facility] [place] [address]- Name: Susy Gavin RN Position: [facility] RN Member Role: Primary Care Nurse Name: Jayme Nevarez RN Position: S RN Member Role: Primary Care Nurse Name: Jane Gilmore RN Position: [facility] Onco RN Member Role: Primary Care Nurse Name: Jacki Page RN, I Position: [facility] RN Member Role: Primary Care Nurse Care Team Related PersonsName: PUSHPA OCHOA Address: home [address] [place] [address] Name: MARGARITA TURNER Address: home [address] [place] [id number]
--- OUTSIDE RECORDS SUMMARY | 2022-06-26 09:39 | XMS_ITS ---
:1960 Author Organization [facility], NA DOCUMENT DISCLAIMER Multiple document versions may exist, please be sure you review the latest version. The information in the [facility] Continuity of Care Document represents [...] (Venofer) Dialysis, Every - push 2022 Treatment Vitamin D 2X Week 0.25 Oral January Active (Calcitriol) mcg 2021 Oral Mircera During 200 mcg Intravenous May Discon tinued Dialysis, Every - push 2022 2 weeks Home Medications Medication Instructions Dosage Route Start Date End Date Statu s amlodipine 10 mg Take by mouth 1 tablet ORAL December 17, Active once a day 2021 aspirin 81 mg Take by mouth 1 tablet ORAL December 17, Active once a day 2021 atorvastatin 80 mg ORAL January Active 2021 carvedilol 25 mg Take by mouth 1 [...] Sign Value Date / Time Blood Pressure-sitting 134/70 mmHg June 25, 2022 07:35 AM Blood Pressure-standing 136/75 mmHg June 25, 2022 07:35 AM Heart Rate 63 beats per minute June 25, 2022 07: 35 AM Respiratory Rate 18 breaths per minute June 25, 2022 0 7:35 AM Temperature 96.8 deg. F June 25, 2022 07: 35 AM Weight Vital Sign Value Date / Time Estimated Dry Weight 82.5 kg March 08, 2022 11 :59 PM Pre-Dialysis 85.00 kg June 25, 2022 07: 35 AM Post-Dialysis 82.50 kg June 25, 2022 07: 35 AM Other Other Value Date / Time Height 167.64 cm December 17, 2021 12:00 AM [facility] Tuberculosis Testing TST Date Administered TST Date Read TST Result 12/18/2021 12/21/2021 Negative (<5) mm LAB RESULTS Hematology Result Type Result Value Relevant Reference Interpretation Date Range Iron 53 mcg/dL Females: 30-160 - June [...] 32.7 g/dL 30 - 36 g/dL - Melissa 04, 202 3 Transferrin Sat. 20 % 20-55% - [...] 302022 g/dL Females: 12.0 - 16.0 g/dL Hemoglobin x 3 34.2 % Male: 14.0 - 18.0 Low June 16, 2022 g/dL; Female: 12.0-16.0 g/dL HGB 11.4 g/dL Males: 14.0 - 18.0 Low May 302022 g/dL Females: 12.0 - 16.0 g/dL Hemoglobin x 3 38.1 % Male: 14.0 - 18.0 Low June 23, 2022 g/dL; Female: 12.0-16.0 g/dL HGB 12.7 g/dL Males: 14.0 - 18.0 Low May 312022 g/dL Females: 12.0 - 16.0 g/dL Metabolic/Renal [...] eKt/V 1.27 No Reference range Normal May (Hue) provided spKt/V (Daugirdas 1.45 No Reference range Normal 2022 II) provided Bone/Mineral Result Type Result Value [...] Product 46 < 55 - June 02 Phosphorus 5.4 mg/dL 2.6-4.5 mg/dL High June [...] mIU/mL < 10 mIU/mL, Non- - Octobe 2021 (anti-HBs) Immune HCV Ab (anti-HCV) Nonreactive [...] K, 2.50 Ca, 1.0 Mg, 100 Dextrose ([id number]) Sodium (mEq/L) 138 mEq/L Bicarb Machine Setting [...] Vitals (hr) (mL/min) Access Admin May Weight 87.10 Weight 83.20 04:02:00 450 2.0 K, 160nre Hemodia lysis-CV Catheter-Tunneled, [...] Dextrose Vitamin D ( Calcitriol) Oral; 0.25mcg,Oral ([id number]) Blood Pressure-sitting 146/80 mmHg Blood Pressure-sitting 12 5/73 mmHg Blood Pressure-standing 134/67 mmHg Blood Pressure-standing 126/75 mmHg Heart Rate 71 beats per Heart Rate 69 beats per minute minute Respiratory Rate 18 breaths per Respiratory Rate 18 breaths per minute minute Temperature 98.4 deg. F Temperature 97.0 deg. F May Weight 86.20 Weight 82.80 03:59:00 400 2.0 K, 160nre Hemodia lysis-CV Catheter-Tunneled, Chest, Right Jugular Heparin Sodium (Porcine) 1,000 Units/mL Catheter Lock Arterial; 1900units,Arterial Red Port 25, 2022 kg kg 2.50 Ca, Optiflux Access Lary rosalia on December 14, 2021 Heparin Sodium (Porcine) 1,000 Units/mL Catheter Lock Venous; 1900units,Venous Blue Port 1.0 Mg, Heparin Sodi um (Porcine) 1,000 Units/mL Systemic; 4000units,Intravenous - push 100 Iron Sucrose ( Venofer); 100mg,Intravenous - push Dextrose ([id number]) Blood Pressure-sitting 147/79 mmHg Blood Pressure-sitting 13 5/83 mmHg Blood Pressure-standing 118/67 mmHg Blood Pressure-standing 105/64 mmHg Heart Rate 72 beats per Heart Rate 70 beats per minute minute Respiratory Rate 16 breaths per Respiratory Rate 17 breaths per minute minute Temperature 97.5 deg. F Temperature 97.6 deg. F May Weight 85.00 Weight 82.50 03:57:00 400 2.0 K, 160nre Hemodia lysis-CV Catheter-Tunneled, Chest, Right Jugular Heparin Sodium (Porcine) 1,000 Units/mL Catheter Lock Arterial; 1900units,Arterial Red Port 27, 2022 kg kg 2.50 Ca, Optiflux Access Lary rosalia on December 14, 2021 Heparin Sodium (Porcine) 1,000 Units/mL Catheter Lock Venous; 1900units,Venous Blue Port 1.0 Mg, Heparin Sodi um (Porcine) 1,000 Units/mL Systemic; 4000units,Intravenous - push 100 Iron Sucrose ( Venofer); 100mg,Intravenous - push Dextrose Vitamin D ( Calcitriol) Oral; 0.25mcg,Oral ([id number]) Blood Pressure-sitting 124/67 mmHg Blood Pressure-sitting 13 4/70 mmHg Blood Pressure-standing 113/62 mmHg Blood Pressure-standing 136/75 mmHg Heart Rate 73 beats per Heart Rate 63 beats per minute minute Respiratory Rate 16 breaths per Respiratory Rate 18 breaths per minute minute Temperature 97.4 deg. F Temperature 96.8 deg. F
[2022-06-26 09:42] VITALS: BP 139/72; PULSE 69; RESP 16; TEMP 36.7; O2SAT 98
--- NOTE | 2022-06-26 09:45 | ED_ITS ---
HPI - Abdominal Pain General Chief Complaint: Abdominal Pain Stated Complaint: pain in side from surgery Time Seen by Provider: 06/26/22 09:32 Source: patient Mode of arrival: ambulatory Limitations: no limitations History of Present Illness HPI narrative: Patient presented to the emergency department complaining of abdominal pain localized in the left upper quadrant, patient has chronic pain is on Percocet at home he stated he has history of stomach cancer and colon cancer he has his oncology care [facility]. Denies any fever chills vomiting MD elicited complaint: abdominal pain Pertinent past history: other (gastric ca ) Onset (ago): week(s) Pain Consistency: constant Location: other (left upper quadrant) Severity: moderate Radiation: none Exacerbating factors: nothing Related Data Home Medications Medication Instructions Recorded Confirmed albuterol sulfate 90 mcg/actuation 2 puff PO Q4-6H PRN Shortness Of 11/25/21 03/31/22 aerosol inhaler (ProAir HFA) Breath alcohol swabs (Alcohol Prep Pads) 1 pad topical TID 11/25/21 03/31/22 blood sugar diagnostic (FreeStyle 11/25/21 03/31/22 Lite Strips) clotrimazole 1 % topical cream 1 appl topical BID 11/25/21 03/31/22 diclofenac sodium 1 % topical gel 2 g topical BID PRN pain 11/25/21 03/31/22 insulin glargine 100 unit/mL (3 25 unit subcut DAILY 11/25/21 03/31/22 mL) subcutaneous pen (Lantus Solostar U-100 Insulin) ipratropium bromide 21 mcg (0.03 2 spray intranasal TID 11/25/21 03/31/22 %) nasal spray omega-3 acid ethyl esters 1 gram 2 cap PO BID 11/25/21 03/31/22 capsule pen needle, diabetic 32 gauge x 11/25/21 03/31/22 5/32 (Pentips) aspirin 81 mg tablet,delayed 81 mg PO DAILY 12/16/21 03/31/22 release (Adult Aspirin Regimen) carvedilol 12.5 mg tablet 25 mg PO BID 12/16/21 03/31/22 cyanocobalamin (vitamin B-12) 1 tab PO QAM 12/16/21 03/31/22 1,000 mcg tablet furosemide 40 mg tablet 40 mg PO QAM 12/16/21 03/31/22 hydralazine 25 mg tablet 75 mg PO TID 12/16/21 03/31/22 levothyroxine 112 mcg tablet 112 mcg PO QAM 12/16/21 03/31/22 omeprazole 40 mg capsule,delayed 40 mg PO BID 12/16/21 03/31/22 release rosuvastatin 10 mg tablet 10 mg PO BEDTIME 12/16/21 03/31/22 tamsulosin 0.4 mg capsule 0.4 mg PO QPM 12/16/21 03/31/22 zolpidem 10 mg tablet 10 mg PO BEDTIME 12/16/21 03/31/22 clonazepam 1 mg tablet 1 mg PO BID 03/31/22 03/31/22 oxycodone-acetaminophen 10 mg-325 1 tab PO Q4H PRN severe pain 03/31/22 03/31/22 mg tablet Previous Rx's Medication Instructions Recorded amlodipine 10 mg tablet 10 mg PO DAILY #60 tabs 12/16/21 sodium,potassium,mag sulfates 17.5 See Rx Instructions PO .COMPLEX 01/27/22 gram-3.13 gram-1.6 gram oral soln #354 mL (Suprep Bowel Prep Kit) Allergies Allergy/AdvReac Type Severity Reaction Status Date / Time No Known Allergies Allergy Verified 03/31/22 15:16 Review of Systems Constitutional: Reports no additional constitutional complaints Reports system reviewed and no additional complaints, except as documented Respiratory: Reports no additional respiratory complaints Gastrointestinal: Reports abdominal pain PMFSH Past Medical History Medical History Asthma CAD (coronary artery disease) Colon adenomas Colon cancer screening CVA (cerebral vascular accident) Diabetes End stage renal disease Essential hypertension Hypertension Non-cardiac chest pain Normocytic anemia Type 2 diabetes mellitus with unspecified complications Surgical History H/O neck surgery History of bladder surgery History of colonoscopy History of nephrectomy Hx of colonoscopy Stented coronary artery Family History Family History Other No family history of coronary artery disease Social History Social History Are you a primary healthcare market consultant to a significant other at home: No Do you presently have visiting nurse or other home services: Yes (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, 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) Alcohol intake: never Patient Tobacco Use Status: Former Tobacco user Quit Date: Tobacco use type: Cigarette Smoked in Last 30 Days: No Use of substances other than those prescribed or required for medical reasons: No Advance Directives: No service: No Current occupational status: disabled Physical Exam ED Vital Signs: Vital Signs - 24 hr 06/26/22 09:21 06/26/22 09:42 06/26/22 10:59 Temperature 97.5 F 98.1 F Pulse Rate 73 69 64 Respiratory Rate 20 16 16 Blood Pressure 138/73 139/72 129/68 Pulse Oximetry 96 98 97 Oxygen Delivery Method Room Air Room Air Room Air BMI result Body Mass Index 29.5 Const General: cooperative Nutritional Appearance: well nourished Orientation/consciousness: patient oriented x3 HENMT Head: Yes normal to inspection General nose exam: Normal external nose present Face and sinus: Yes normal facial exam Mouth: Normal oral and palatal mucosa present Throat: Yes posterior oropharynx normal Resp Effort & Inspection: normal respiratory effort Auscultation: clear to auscultation bilaterally Cardio Jugular venous distension: no JVD Rate: regular rate Rhythm: regular rhythm GI Other: tenderness in the left upper quadrant Palpation (GI): Soft to palpation and Tenderness to palpation present (GI) (left upper quadrant) Skin General skin exam: no rashes or lesions noted Lesions: no lesions Rashes: no rashes Neuro General: patient oriented x3 Course Reevaluation(s) Reevaluation #1: CT scan negative blood work negative. 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 At this point I think the patient can be safely discharged home and follow-up with his primary care physician Medical Decision Making Medical Decision Making MDM Narrative: Patient presented complaining abdominal pain history of right nephrectomy and neuroendocrine tumor in the stomach get labs a CT Differential Diagnosis Colitis/diverticulitis/SBO Admission/Observation Consideration of admission/observation: Escalation of care including admission/observation considered Lab Data MDM Lab Attestation statement: I reviewed the patient's lab results. 06/26/22 09:54 06/26/22 09:54 Labs: Lab Results 06/26/22 06/26/22 Range/Units 09:54 09:54 WBC 7.8 (4.8-10.8) X10*3/uL RBC 4.69 (4.60-5.80) X10*6/uL Hgb 13.0 L (14.0-18.0) g/dl Hct 41.5 L (42.0-52.0) % MCV 88.5 (80.0-98.0) fL MCH 27.7 (27.0-33.0) pg MCHC 31.3 (31.0-36.0) g/dl RDW 17.4 H (11.0-16.0) % Plt Count 146 L (160-400) X10*3/uL MPV 11.3 (9.4-12.4) fL Immature Gran % (Auto) 0.4 (0.0-0.4) % Neut % (Auto) 69.7 (45-73) % Lymph % (Auto) 18.4 L (20-40) % Labette % (Auto) 8.8 (2-11) % Eos % (Auto) 2.2 (0-4) % Baso % (Auto) 0.5 (0-2) % Lymph # (Auto) 1.4 (1.2-4.9) X10*3/uL Labette # (Auto) 0.7 (0.1-1.2) X10*3/uL Eos # (Auto) 0.2 (0.0-0.4) X10*3/uL Baso # (Auto) 0.0 (0.0-0.2) X10*3/uL Abs Immat Gran (auto) 0.03 (0.00-0.03) X10*3/uL Absolute Neuts (auto) 5.5 (2.0-8.3) x10*3/uL Absolute Nucleated RBC 0.000 (0.0-0.012) X10*3/uL Nucleated RBC % (auto) 0.0 (0.0-0.2) /100WBC Sodium 137 (135-145) mmol/L Potassium 4.9 (3.3-5.1) mmol/L Chloride 102 (96-108) mmol/L Carbon Dioxide 23 (22-29) mmol/L Anion Gap 17 (12-20) BUN 41 H (9-16) mg/dL Creatinine 7.72 H* (0.5-1.4) mg/dL Estim Creat Clear Calc 10.0 Estimated GFR 7 Random Glucose 238 H (60-115) mg/dL Calcium 8.8 (8.4-10.2) mg/dL Total Bilirubin 0.7 (0.0-1.0) mg/dL AST 12 (5-37) U/L ALT 12 (0-40) U/L Alkaline Phosphatase 106 (39-117) U/L Total Protein 6.7 (6.5-8.0) g/dL Albumin 3.9 (3.5-5.0) g/dL Lipase 22 (8-78) U/L Radiology Impression Discussion of test interpretation with radiology: I have reviewed the radiologist's reading. Radiologist Impression: operitoneal and central mesenteric lymph nodes, unchanged. No new or increasing lymphadenopathy. VASCULAR: No abdominal aortic dilatation. Atherosclerotic calcifications. PELVIC VISCERA: Stable prostatomegaly.? OSSEOUS STRUCTURES: Unremarkable.? CT/CT abdomen pelvis wo IV con IMPRESSION: 1. Mild hepatomegaly with slightly lobulated contour, unchanged. No new hepatic parenchymal lesion or biliary ductal dilatation. ? 2. Status post right nephrectomy. No new left-sided renal parenchymal lesion; however, evaluation is limited without IV contrast. No hydronephrosis or nephrolithiasis. ? 3. No new intra-abdominal mass, lymphadenopathy, or ascites. ? 4. Additional chronic findings are unchanged. ? Fleischner guidelines were followed. Dictated By: Rafael Chisholm MD Signed By: <Electronically signed by Rafael Chisholm MD in OV> 06/26/22 1035 Independent Historian Clinical information obtained from an independent historian. History obtained from or confirmed by: Spouse External Record Review External record reviewed: Inpatient record and Outpatient record Record from [facility] were reviewed Medications Administered Discontinued Medications Generic Name Dose Route Start Last Admin Trade Name Freq PRN Reason Stop Dose Admin Hydromorphone HCl 0.5 mg 06/26/22 10:50 06/26/22 10:58 Hydromorphone Hcl 0.5 Mg/0.5 Ml Syringe IVPUSH 06/26/22 10:51 0.5 mg ONCE ONE Administration Protocol Morphine Sulfate 4 mg 06/26/22 09:46 06/26/22 10:02 Morphine Sulfate 4 Mg/Ml Cartridge IVPUSH 06/26/22 09:47 4 mg ONCE ONE Administration Protocol Ondansetron HCl 4 mg 06/26/22 09:46 06/26/22 10:01 Ondansetron Hcl 4 Mg/2 Ml Vial IVPUSH 06/26/22 09:47 4 mg ONCE ONE Administration Discharge Plan Discharge Clinical Impression: Abdominal pain Patient Disposition: Home, Self-Care Instructions: Abdominal Pain (ED) Additional Instructions: Follow-up with your primary care physician on Tuesday return if you worse vomiting fever any concern Prescriptions: No Action (DME) FreeStyle Lite Strips Strip Not Applicable alcohol swabs [Alcohol Prep Pads] Pads, Medicated 1 pad TOPICAL TID albuterol sulfate [ProAir HFA] 90 mcg/actuation HFA aerosol inhaler 2 puff PO Q4-6H PRN (Reason: Shortness Of Breath) clotrimazole 1 % cream 1 appl topical BID ipratropium bromide 21 mcg (0.03 %) spray,non-aerosol 2 spray intranasal TID omega-3 acid ethyl esters 1 gram capsule 2 cap PO BID insulin glargine [Lantus Solostar U-100 Insulin] 100 unit/mL (3 mL) insulin pen 25 unit subcut DAILY diclofenac sodium 1 % gel 2 g topical BID PRN (Reason: pain) (DME) pen needle, diabetic [Pentips] 32 gauge x 5/32 needle MISCELLANEOUS QID omeprazole 40 mg capsule,delayed release(DR/EC) 40 mg PO BID rosuvastatin 10 mg tablet 10 mg PO BEDTIME tamsulosin 0.4 mg capsule 0.4 mg PO QPM zolpidem 10 mg tablet 10 mg PO BEDTIME cyanocobalamin (vitamin B-12) 1,000 mcg tablet 1 tab PO QAM furosemide 40 mg tablet 40 mg PO QAM levothyroxine 112 mcg tablet 112 mcg PO QAM clonazepam 1 mg tablet 1 mg PO BID oxycodone-acetaminophen 10-325 mg tablet 1 tab PO Q4H PRN (Reason: severe pain) Rx Instructions: 10 mg every 4 hours sodium,potassium,mag sulfates [Suprep Bowel Prep Kit] 17.5-3.13-1.6 gram recon soln See Rx Instructions PO .COMPLEX Qty: 354 0RF Rx Instructions: DILUTE; drink full amount early evening before AND next morning at least 2 hr before procedure; follow w 960 mL water PO aspirin [Adult Aspirin Regimen] 81 mg tablet,delayed release (DR/EC) 81 mg PO DAILY carvedilol 12.5 mg tablet 25 mg PO BID amlodipine 10 mg tablet 10 mg PO DAILY Qty: 60 0RF hydralazine 25 mg tablet 75 mg PO TID Referrals: Macie Link DO [Primary Care Provider] - 2 days Interventions: ED Discharge Assessment Last Done: 06/26/22 11:57 Discharge Date/Time: 06/26/22 11:58
[2022-06-26 09:58] LABS: MANUAL DIFF FLAG NO
[2022-06-26 10:00] LABS: Basophils Percent Auto 0.5 % (0-2); Eosinophils Absolute Auto 0.2 X10*3/uL (0.0-0.4); Eosinophils Percent Auto 2.2 % (0-4); Hematocrit 41.5 % (42.0-52.0); Imm Gran Abs Auto 0.03 X10*3/uL (0.00-0.03); Imm Gran Pct Auto 0.4 % (0.0-0.4); Lymphocytes Absolute Auto 1.4 X10*3/uL (1.2-4.9); Lymphocytes Percent Auto 18.4 % (20-40); Mean Corpuscular HGB Conc 31.3 g/dl (31.0-36.0); Mean Corpuscular Hemoglobin 27.7 pg (27.0-33.0); Mean Corpuscular Volume 88.5 fL (80.0-98.0); Mean Platelet Volume 11.3 fL (9.4-12.4); Monocytes Absolute Auto 0.7 X10*3/uL (0.1-1.2); Monocytes Percent Auto 8.8 % (2-11); Neutrophils Absolute Auto 5.5 x10*3/uL (2.0-8.3); Neutrophils Percent Auto 69.7 % (45-73); Platelet Count 146 X10*3/uL (160-400); Red Blood Count 4.69 X10*6/uL (4.60-5.80); Red Cell Distribution Width 17.4 % (11.0-16.0); White Blood Count 7.8 X10*3/uL (4.8-10.8)
[2022-06-26] MEDS: ondansetron HCL 4 MG/2 ML VIAL IVPUSH (10:01)
[2022-06-26] MEDS: Morphine Sulfate 4 MG/ML CARTRIDGE IVPUSH (10:02)
--- NOTE | 2022-06-26 10:44 | PC.NURSE ---
Addendum entered by Kassidy Spaulding 06/26/22 10:44: LUQ abd pain without n/v/d. Pt states recent Biopsy to liver approx 1 month ago with persistent worsening pain on left side. Awaiting outpt MRI. Pt has LAVF with +bruit and thrill. Also noted with right chest permacath. Diaylsis MWF, had diaylsis yesterday. Medicated as charted. Abd with +BS x 4 qauds, tender to LUQ. at bedside. Original Note: Pt is alert/oriented. Reports Luq a
[2022-06-26 10:50] LABS: Alanine Aminotransferase 12 U/L (0-40); Albumin Level 3.9 g/dL (3.5-5.0); Alkaline Phosphatase 106 U/L (39-117); Anion Gap 17 (12-20); Aspartate Amino Transferase 12 U/L (5-37); Bilirubin Total 0.7 mg/dL (0.0-1.0); Blood Urea Nitrogen 41 mg/dL (9-16); Calcium 8.8 mg/dL (8.4-10.2); Carbon Dioxide 23 mmol/L (22-29); Chloride 102 mmol/L (96-108); Estimated Glomerular Filt Rate 7; Glucose Random 238 mg/dL (60-115); Lipase 22 U/L (8-78); Potassium 4.9 mmol/L (3.3-5.1); Sodium 137 mmol/L (135-145); Total Protein 6.7 g/dL (6.5-8.0)
[2022-06-26] MEDS: HYDROmorphone HCl 0.5 MG/0.5 ML SYRINGE IVPUSH (10:58)
[2022-06-26 10:59] VITALS: BP 129/68; PULSE 64; RESP 16; O2SAT 97
--- NOTE | 2022-06-26 10:59 | PC.NURSE ---
Medicated per EMAR for persistent LUQ abd pain
--- NOTE | 2022-06-26 11:13 | PC.NURSE ---
Patient with family at bedside continued pain admin morphine ineffective patient given pain med by off going RN will Reassess will CTM
--- NOTE | 2022-06-26 11:29 | PC.NURSE ---
Patient ambulatory to bathroom with family member reports good effect from pain med will CTM
== END 2022-06-26 11:58 | disposition home or self-care (01) ==
PROVIDERS: Emergency Provider Emergency Medicine; PCP Family Medicine
DX: R10.12 Left upper quadrant pain (principal); E11.22 Type 2 diabetes mellitus with diabetic chronic kidney disease; I12.0 Hypertensive chronic kidney disease with stage 5 chronic kidney disease or end stage renal disease; N18.6 End stage renal disease; C16.9 Malignant neoplasm of stomach, unspecified; C64.9 Malignant neoplasm of unspecified kidney, except renal pelvis; Z90.5 Acquired absence of kidney; Z86.73 Personal history of transient ischemic attack (TIA), and cerebral infarction without residual deficits; Z87.891 Personal history of nicotine dependence; Z79.891 Long term (current) use of opiate analgesic; Z79.4 Long term (current) use of insulin; Z79.899 Other long term (current) drug therapy; Z79.82 Long term (current) use of aspirin; Z79.02 Long term (current) use of antithrombotics/antiplatelets
CPT/HCPCS: 36415; 74176; 80053; 83690; 85025; 96374; 96375; 99284; J1170; J2270; J2405

== ENCOUNTER 2022-07-08 14:01 | Outpatient (REF) | payer MEDICARE, MEDICAID, SELFPAY ==
[2022-07-08 15:56] LABS: Hematocrit 42.7 % (42.0-52.0); Hemoglobin 13.3 g/dl (14.0-18.0); Mean Corpuscular HGB Conc 31.1 g/dl (31.0-36.0); Mean Corpuscular Hemoglobin 28.1 pg (27.0-33.0); Mean Corpuscular Volume 90.3 fL (80.0-98.0); Mean Platelet Volume 11.3 fL (9.4-12.4); Platelet Count 219 X10*3/uL (160-400); Red Blood Count 4.73 X10*6/uL (4.60-5.80); Red Cell Distribution Width 15.3 % (11.0-16.0); White Blood Count 10.4 X10*3/uL (4.8-10.8)
[2022-07-08 16:03] LABS: INTERNATIONAL NORM RATIO 0.9 (0.9-1.1); Prothrombin Time 10.6 SEC (10.0-13.1)
[2022-07-08 16:56] LABS: Anion Gap 19 (12-20); Blood Urea Nitrogen 46 mg/dL (9-16); Calcium 9.4 mg/dL (8.4-10.2); Carbon Dioxide 26 mmol/L (22-29); Chloride 97 mmol/L (96-108); Estimated Glomerular Filt Rate 6; Glucose Random 165 mg/dL (60-115); Potassium 5.6 mmol/L (3.3-5.1); Sodium 136 mmol/L (135-145)
== END 2022-07-08 14:02 | disposition home or self-care (01) ==
LOC: HO.LAB 14:01
PROVIDERS: PCP Family Medicine; Referring Provider Family Medicine; Visit Provider Internal Medicine Cardiovascular Disease
DX: I20.9 Angina pectoris, unspecified (principal); Z79.899 Other long term (current) drug therapy
CPT/HCPCS: 36415; 80048; 85027; 85610; 99212

== ENCOUNTER 2022-07-17 19:55 | Emergency (ER) | payer MEDICARE, MEDICAID, SELFPAY ==
--- NOTE | ~2022-07-17 | XR_ITS ---
EXAMINATION: XR CHEST CLINICAL INFORMATION: Shortness of breath COMPARISON: Previous chest x-ray October [address] of the abdomen and pelvis May 2022 TECHNIQUE: Frontal view of the chest was obtained. FINDINGS: The cardiac silhouette is markedly enlarged and significantly increased from previous exams. Pericardial effusion should be excluded either by echo or CT. Hilar and mediastinal contours are unremarkable. There is a new right jugular dialysis catheter with tip projecting over the cavoatrial junction. There may be atelectasis or small infiltrate at the right lung base. There are small bilateral pleural effusions. There is no pneumothorax. There are postsurgical changes to the cervical spine. XR/XR chest 1V IMPRESSION: Significant interval increase in size in the cardiac silhouette new from previous exams. Pericardial effusion should be excluded. Atelectasis or small infiltrate at the right lung base. Small bilateral pleural effusions. Findings will be communicated by the [place] work flow abatement worker.
--- NOTE | ~2022-07-17 | CT_ITS ---
EXAMINATION: CT CHEST WITHOUT CONTRAST CLINICAL INFORMATION: Enlarged cardiac silhouette on chest x-ray. Rule out pericardial effusion. COMPARISON: Previous chest x-ray from earlier the same day TECHNIQUE: Multidetector volumetric CT imaging of the chest was done. Axial MIP volume rendering provided. Sagittal and coronal reformatted images were obtained. This CT examination was performed using dose optimization techniques as appropriate, variously including the following: *Automated exposure control *Adjustment of mA and/or kV according to patient size (this includes techniques or standardized protocols for targeted exams where dose is matched to indication/reason for exam; i.e. extremities or head) *Use of iterative reconstruction technique DLP: 315 mGy-cm FINDINGS: LUNGS: There is subsegmental atelectasis at the lung bases. MEDIASTINUM: There is a large pericardial effusion. This is slightly high in attenuation and Hounsfield units measuring 43 without contrast questionable for complex effusion, and in particular given history of renal disease, blood. The heart does not appear enlarged. There is severe coronary artery calcification. The thoracic aorta is normal in caliber. There are no enlarged hilar or mediastinal lymph nodes. There is a right jugular dialysis catheter with tip projecting over the cavoatrial junction. CORONARY ARTERY CALCIFICATION: None visualized on this study. PLEURA: There are small bilateral pleural effusions. AXILLA: No lymphadenopathy. UPPER ABDOMEN: Small amount of ascites adjacent to the liver. OSSEOUS STRUCTURES: Degenerative changes of the spine. CT/CT chest wo IV con IMPRESSION: Large pericardial effusion. This is slightly high in attenuation questionable for complex fluid or blood. Small bilateral pleural effusions. Bilateral lower lobe atelectasis. Fleischner guidelines were followed.
--- NOTE | 2022-07-17 20:09 | ECG_ITS ---
Test Reason : SOB Blood Pressure : / mmHG Vent. Rate : 126 BPM Atrial Rate : 129 BPM P-R Int : 000 ms QRS Dur : 090 ms QT Int : 350 ms P-R-T Axes : 000 078 094 degrees QTc Int : 506 ms Atrial flutter Nonspecific ST abnormality Abnormal ECG When compared to the previous EKG of atrial flutter present Referred By: Generic ED Physician Electronically Signed By:Vince Cornejo
[2022-07-17 20:39] VITALS: BP 114/70; PULSE 124; RESP 23; TEMP 36.4; O2SAT 95
--- NOTE | 2022-07-17 21:18 | ED_ITS ---
HPI - Chest Pain General Chief Complaint: Dyspnea Stated Complaint: SOB / ABD pain Time Seen by Provider: 07/17/22 21:16 Source: patient Mode of arrival: ambulatory Limitations: no limitations History of Present Illness HPI narrative: Patient is 61 years old with history of stage IV CKD on hemodialysis, CVA, CAD status post non-STEMI, history of nephrectomy with history of renal cancer, hypertension, diabetes , comes here for increased shortness of breath for last 3 days with chronic upper abdominal pain for over 2 months patient went for dialysis yesterday had only have dialysis as patient was feeling increased short of breath and had upper abdominal pain patient tachypneic on arrival with blood pressure of 114/70 pulse rate of 124 Related Data Home Medications Medication Instructions Recorded Confirmed albuterol sulfate 90 mcg/actuation 2 puff PO Q4-6H PRN Shortness Of 11/25/21 07/08/22 aerosol inhaler (ProAir HFA) Breath alcohol swabs (Alcohol Prep Pads) 1 pad topical TID 11/25/21 07/08/22 blood sugar diagnostic (FreeStyle 11/25/21 07/08/22 Lite Strips) clotrimazole 1 % topical cream 1 appl topical BID 11/25/21 07/08/22 diclofenac sodium 1 % topical gel 2 g topical BID PRN pain 11/25/21 07/08/22 insulin glargine 100 unit/mL (3 25 unit subcut DAILY 11/25/21 07/08/22 mL) subcutaneous pen (Lantus Solostar U-100 Insulin) ipratropium bromide 21 mcg (0.03 2 spray intranasal TID 11/25/21 07/08/22 %) nasal spray omega-3 acid ethyl esters 1 gram 2 cap PO BID 11/25/21 07/18/22 capsule pen needle, diabetic 32 gauge x 11/25/21 07/08/22 5/32 (Pentips) aspirin 81 mg tablet,delayed 81 mg PO DAILY 12/16/21 07/18/22 release (Adult Aspirin Regimen) carvedilol 12.5 mg tablet 25 mg PO BID 12/16/21 07/18/22 cyanocobalamin (vitamin B-12) 1 tab PO QAM 12/16/21 07/08/22 1,000 mcg tablet furosemide 40 mg tablet 40 mg PO QAM 12/16/21 07/08/22 hydralazine 25 mg tablet 75 mg PO TID 12/16/21 07/18/22 levothyroxine 112 mcg tablet 112 mcg PO QAM 12/16/21 07/18/22 omeprazole 40 mg capsule,delayed 40 mg PO BID 12/16/21 07/18/22 release rosuvastatin 10 mg tablet 10 mg PO BEDTIME 12/16/21 07/18/22 tamsulosin 0.4 mg capsule 0.4 mg PO QPM 12/16/21 07/18/22 zolpidem 10 mg tablet 10 mg PO BEDTIME 12/16/21 07/08/22 clonazepam 1 mg tablet 1 mg PO BID 03/31/22 07/08/22 oxycodone-acetaminophen 10 mg-325 1 tab PO Q4H PRN severe pain 03/31/22 07/08/22 mg tablet Previous Rx's Medication Instructions Recorded amlodipine 10 mg tablet 10 mg PO DAILY #60 tabs 12/16/21 sodium,potassium,mag sulfates 17.5 See Rx Instructions PO .COMPLEX 01/27/22 gram-3.13 gram-1.6 gram oral soln #354 mL (Suprep Bowel Prep Kit) isosorbide mononitrate 30 mg 30 mg PO DAILY #30 tabs 07/08/22 tablet,extended release 24 hr nitroglycerin 0.4 mg sublingual 0.4 mg sublingual Q5M PRN chest 07/08/22 tablet pain #20 tabs Allergies Allergy/AdvReac Type Severity Reaction Status Date / Time No Known Allergies Allergy Verified 03/31/22 15:16 Review of Systems Review of Systems: Yes all other systems are reviewed and are negative [facility] Past Medical History Medical History Asthma CAD (coronary artery disease) Colon adenomas Colon cancer screening CVA (cerebral vascular accident) Diabetes End stage renal disease Essential hypertension Hypertension Non-cardiac chest pain Normocytic anemia Type 2 diabetes mellitus with unspecified complications Surgical History H/O neck surgery History of bladder surgery History of colonoscopy History of nephrectomy Hx of colonoscopy Stented coronary artery Family History Family History Other No family history of coronary artery disease Social History Social History Are you a primary care transition manager to a significant other at home: No Do you presently have visiting nurse or other home services: Yes (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, 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) Alcohol intake: never Patient Tobacco Use Status: Former Tobacco user Quit Date: Tobacco use type: Cigarette Smoked in Last 30 Days: No Use of substances other than those prescribed or required for medical reasons: No Advance Directives: No Advance Directives Information Provided: No service: No Current occupational status: disabled Physical Exam Vital Signs: Vital Signs: Last Vital Signs Temp 97.8 F 07/18/22 00:00 Pulse 122 H 07/18/22 01:42 Resp 15 07/18/22 01:42 BP 121/99 H 07/18/22 01:42 Pulse Ox 91 L 07/18/22 01:42 O2 Del Method 07/18/22 01:42 O2 Flow Rate 5 07/18/22 01:42 Oxygen Flow Rate 2 07/17/22 21:20 BMI result Body Mass Index 31.1 Appearance: Alert. Oriented X3. In moderate respiratory distress tachypnea Eyes: Pallor++ ENT: Pharynx normal. Oral Mucosa moist Neck: Normal inspection. Neck supple. CVS: Tachycardia distant heart sounds. Pulses normal. Pulses paradoxus+ hyperdynamic heart Respiratory: No respiratory distress. Equal air entry bilateral, no wheezing/rales/rhonchi Abdomen: Soft and nontender. Bowel sounds are present, no mass palpable, no CVA tenderness Skin: Skin warm and dry. Normal skin color. Normal skin turgor. Extremities: No lower extremity edema. No calf tenderness Neuro: Oriented X 3. No motor deficit. No sensory deficit.No cerebellar signs , cranial nerves II-XII intact Medications Administered Discontinued Medications Generic Name Dose Route Start Last Admin Trade Name Freq PRN Reason Stop Dose Admin Dextrose 25 gm 07/17/22 23:22 07/18/22 00:18 Dextrose 50 % 25 Gm/50 Ml Syringe IVPUSH 07/17/22 23:23 25 gm ONCE ONE Administration Furosemide 60 mg 07/18/22 01:28 07/18/22 01:32 Furosemide 100 Mg/10 Ml Vial IVPUSH 02/19/23 01:29 60 mg ONCE ONE Administration Protocol Calcium Gluconate 2 gm in 100 mls @ 50 mls/hr 07/17/22 22:04 07/18/22 01:03 Calcium Gluconate IV 07/18/22 00:03 Infused ONCE ONE Infusion Insulin Human Regular 5 unit 07/17/22 22:04 07/17/22 22:43 Insulin Regular, Human 100 Unit/Ml 3 Ml Vial IVPUSH 07/17/22 22:05 5 unit ONCE ONE Administration Morphine Sulfate 4 mg 07/17/22 21:51 07/17/22 22:41 Morphine Sulfate 4 Mg/Ml Cartridge IVPUSH 07/17/22 21:52 4 mg ONCE ONE Administration Protocol Ondansetron HCl 4 mg 07/17/22 21:51 07/17/22 22:41 Ondansetron Hcl 4 Mg/2 Ml Vial IVPUSH 07/17/22 21:52 4 mg ONCE ONE Administration Sodium Bicarbonate 50 meq 07/17/22 22:04 07/17/22 22:40 Sodium Bicarbonate 8.4% 50 Meq/50 Ml Syringe IVPUSH 07/17/22 22:05 50 meq ONCE ONE Administration Sodium Zirconium Cyclosilicate 10 gm 07/17/22 22:04 07/17/22 22:41 Sodium Zirconium Cyclosilicate 10 Gm Powd.Pack PO 07/17/22 22:05 10 gm ONCE ONE Administration Medical Decision Making Medical Decision Making [facility] Narrative: Patient with end-stage renal disease with hyperkalemia with massive pericardial effusion with increased shortness of breath and chest discomfort over 2 days bedside echo done which showed right ventricular collapse during diastole suggestive of pericardial tamponade with pulsus paradoxus CT scan was done consistency of fluid seems like blood per radiologist. Clinically patient has subacute early pericardial tamponade , Patient not on any anticoagulants except aspirin case discussed with Dr. Cornejo transferred to [facility] for pericardiocentesis by IR Case discussed with back hand Dr Harris at [facility] accepted the patient under medical service patient blood pressure 127/85 pulse rate 122 saturating 93% at room air Patient received Lokelma, dextrose 50 with insulin, sodium bicarb and Lasix for hyperkalemia Lab Data [facility] Lab Attestation statement: I reviewed the patient's lab results. 07/17/22 20:58 Labs: Lab Results 07/17/22 07/17/22 07/17/22 Range/Units 20:58 20:58 21:04 WBC 15.8 H (4.8-10.8) X10*3/uL RBC 3.42 L D (4.60-5.80) X10*6/uL Hgb 9.5 L D (14.0-18.0) g/dl Hct 31.0 L D (42.0-52.0) % MCV 90.6 (80.0-98.0) fL MCH 27.8 (27.0-33.0) pg MCHC 30.6 L (31.0-36.0) g/dl RDW 15.8 (11.0-16.0) % Plt Count 307 D (160-400) X10*3/uL MPV 11.7 (9.4-12.4) fL Immature Gran % (Auto) 0.8 H (0.0-0.4) % Neut % (Auto) 82.7 H (45-73) % Lymph % (Auto) 7.6 L (20-40) % [place] % (Auto) 8.1 (2-11) % Eos % (Auto) 0.4 (0-4) % Baso % (Auto) 0.4 (0-2) % Lymph # (Auto) 1.2 (1.2-4.9) X10*3/uL [place] # (Auto) 1.3 H (0.1-1.2) X10*3/uL Eos # (Auto) 0.1 (0.0-0.4) X10*3/uL Baso # (Auto) 0.1 (0.0-0.2) X10*3/uL Abs Immat Gran (auto) 0.12 H (0.00-0.03) X10*3/uL Absolute Neuts (auto) 13.0 H (2.0-8.3) x10*3/uL Absolute Nucleated RBC 0.000 (0.0-0.012) X10*3/uL Nucleated RBC % (auto) 0.0 (0.0-0.2) /100WBC Sodium 133 L (135-145) mmol/L Potassium 6.8 H* D (3.3-5.1) mmol/L Chloride 98 (96-108) mmol/L Carbon Dioxide 20 L (22-29) mmol/L Anion Gap 22 H (12-20) BUN 78 H (9-16) mg/dL Creatinine 10.56 H* (0.5-1.4) mg/dL Estim Creat Clear Calc 7.5 Estimated GFR 5 POC Glucose (60-115) mg/dL Random Glucose 189 H (60-115) mg/dL Calcium 8.4 D (8.4-10.2) mg/dL Total Bilirubin 0.8 (0.0-1.0) mg/dL Direct Bilirubin 0.2 (0.0-0.5) mg/dL AST 11 (5-37) U/L ALT 15 (0-40) U/L Alkaline Phosphatase 113 (39-117) U/L Troponin I High Sens (<3.5-35.0) ng/L B-Natriuretic Peptide (<100) pg/mL Total Protein 6.4 L (6.5-8.0) g/dL Albumin 3.7 (3.5-5.0) g/dL Influenza Type A (PCR) NEGATIVE (Negative) Influenza Type B (PCR) NEGATIVE (Negative) RSV RNA Qual (PCR) NEGATIVE (Negative) SARS-CoV-2 RNA (RT-PCR) NEGATIVE (Negative) 07/17/22 07/17/22 07/18/22 Range/Units 21:04 21:04 01:49 WBC (4.8-10.8) X10*3/uL RBC (4.60-5.80) X10*6/uL Hgb (14.0-18.0) g/dl Hct (42.0-52.0) % MCV (80.0-98.0) fL MCH (27.0-33.0) pg MCHC (31.0-36.0) g/dl RDW (11.0-16.0) % Plt Count (160-400) X10*3/uL MPV (9.4-12.4) fL Immature Gran % (Auto) (0.0-0.4) % Neut % (Auto) (45-73) % Lymph % (Auto) (20-40) % [place] % (Auto) (2-11) % Eos % (Auto) (0-4) % Baso % (Auto) (0-2) % Lymph # (Auto) (1.2-4.9) X10*3/uL [place] # (Auto) (0.1-1.2) X10*3/uL Eos # (Auto) (0.0-0.4) X10*3/uL Baso # (Auto) (0.0-0.2) X10*3/uL Abs Immat Gran (auto) (0.00-0.03) X10*3/uL Absolute Neuts (auto) (2.0-8.3) x10*3/uL Absolute Nucleated RBC (0.0-0.012) X10*3/uL Nucleated RBC % (auto) (0.0-0.2) /100WBC Sodium (135-145) mmol/L Potassium (3.3-5.1) mmol/L Chloride (96-108) mmol/L Carbon Dioxide (22-29) mmol/L Anion Gap (12-20) BUN (9-16) mg/dL Creatinine (0.5-1.4) mg/dL Estim Creat Clear Calc Estimated GFR POC Glucose 181 H (60-115) mg/dL Random Glucose (60-115) mg/dL Calcium (8.4-10.2) mg/dL Total Bilirubin (0.0-1.0) mg/dL Direct Bilirubin (0.0-0.5) mg/dL AST (5-37) U/L ALT (0-40) U/L Alkaline Phosphatase (39-117) U/L Troponin I High Sens 9.6 (<3.5-35.0) ng/L B-Natriuretic Peptide 404 H (<100) pg/mL Total Protein (6.5-8.0) g/dL Albumin (3.5-5.0) g/dL Influenza Type A (PCR) (Negative) Influenza Type B (PCR) (Negative) RSV RNA Qual (PCR) (Negative) SARS-CoV-2 RNA (RT-PCR) (Negative) Independent Interpretation I performed an independent interpretation of an: EKG Interpretation: Low voltage-tachycardia rate 126 ST depression in lateral leads Radiology Impression Discussion of test interpretation with radiology: I discussed test interpretation with the radiologist Radiologist Impression: [address] [address] [address] Scan Report Signed with Shana Patient: Joshua Torres MR#: [id number] : 1960 Acct:[id number] Age/Sex: 61 / M ADM Date: 07/17/22 Loc: HO.ED Attending Dr: Ordering Physician: Azar Siddiqui MD Date of Service: 07/17/22 Procedure(s): CT chest wo IV con Accession Number(s): [id number] cc: Azar Siddiqui MD~ ADDENDUMFindings were communicated to Dr. Winkler by telephone on 05/16/2023 at 10:30 PM. Addendum Dictated By: Felipa Torres MD Addendum Signed By: <Electronically signed by Felipa Torres MD in OV> 07/17/222233 Addendum Cosigned By: DD/ TD/TT: / EXAMINATION: CT CHEST WITHOUT CONTRAST CLINICAL INFORMATION: Enlarged cardiac silhouette on chest x-ray. Rule out pericardial effusion.? COMPARISON: Previous chest x-ray from earlier the same day TECHNIQUE: Multidetector volumetric CT imaging of the chest was done. Axial MIP volume rendering provided. Sagittal and coronal reformatted images were obtained.? This CT examination was performed using dose optimization techniques as appropriate, variously including the following: *Automated exposure control *Adjustment of mA and/or kV according to patient size (this includes techniques or standardized protocols for targeted exams where dose is matched to indication/reason for exam; i.e. extremities or head) *Use of iterative reconstruction technique DLP: 315 mGy-cm FINDINGS: LUNGS: There is subsegmental atelectasis at the lung bases.? MEDIASTINUM: There is a large pericardial effusion. This is slightly high in attenuation and Hounsfield units measuring 43 without contrast questionable for complex effusion, and in particular given history of renal disease, blood. The heart does not appear enlarged. There is severe coronary artery calcification. The thoracic aorta is normal in caliber. There are no enlarged hilar or mediastinal lymph nodes. There is a right jugular dialysis catheter with tip projecting over the cavoatrial junction. CORONARY ARTERY CALCIFICATION: None visualized on this study. PLEURA: There are small bilateral pleural effusions. AXILLA: No lymphadenopathy.? UPPER ABDOMEN: Small amount of ascites adjacent to the liver. OSSEOUS STRUCTURES: Degenerative changes of the spine.? CT/CT chest wo IV con IMPRESSION: Large pericardial effusion. This is slightly high in attenuation questionable for complex fluid or blood. Small bilateral pleural effusions. Bilateral lower lobe atelectasis.? ? Fleischner guidelines were followed. Critical Care Time Critical Care Time Critical Care Time: Yes Total Critical Care Time: 60 Attestation: The patient was critically ill with a high probability of imminent or life threatening deterioration. I spent greater than 65 minutes of discontinuous time evaluating the patient,delivering critical care at the bedside, discussing and evaluating pertinent data with consultants. Critical care time does not include time spent performing separately billable procedures or teaching. Total time spent performing critical care was 60 minutes. Discharge Plan Discharge Clinical Impression: Pericardial effusion with cardiac tamponade, Acute hyperkalemia, End stage chronic kidney disease Patient Disposition: [facility] Transfer Details: [facility] Prescriptions: No Action (DME) FreeStyle Lite Strips Strip Not Applicable alcohol swabs [Alcohol Prep Pads] Pads, Medicated 1 pad TOPICAL TID albuterol sulfate [ProAir HFA] 90 mcg/actuation HFA aerosol inhaler 2 puff PO Q4-6H PRN (Reason: Shortness Of Breath) clotrimazole 1 % cream 1 appl topical BID ipratropium bromide 21 mcg (0.03 %) spray,non-aerosol 2 spray intranasal TID omega-3 acid ethyl esters 1 gram capsule 2 cap PO BID insulin glargine [Lantus Solostar U-100 Insulin] 100 unit/mL (3 mL) insulin pen 25 unit subcut DAILY diclofenac sodium 1 % gel 2 g topical BID PRN (Reason: pain) (DME) pen needle, diabetic [Pentips] 32 gauge x 5/32 needle MISCELLANEOUS QID omeprazole 40 mg capsule,delayed release(DR/EC) 40 mg PO BID rosuvastatin 10 mg tablet 10 mg PO BEDTIME tamsulosin 0.4 mg capsule 0.4 mg PO QPM zolpidem 10 mg tablet 10 mg PO BEDTIME cyanocobalamin (vitamin B-12) 1,000 mcg tablet 1 tab PO QAM furosemide 40 mg tablet 40 mg PO QAM levothyroxine 112 mcg tablet 112 mcg PO QAM clonazepam 1 mg tablet 1 mg PO BID oxycodone-acetaminophen 10-325 mg tablet 1 tab PO Q4H PRN (Reason: severe pain) Rx Instructions: 10 mg every 4 hours sodium,potassium,mag sulfates [Suprep Bowel Prep Kit] 17.5-3.13-1.6 gram recon soln See Rx Instructions PO .COMPLEX Qty: 354 0RF Rx Instructions: DILUTE; drink full amount early evening before AND next morning at least 2 hr before procedure; follow w 960 mL water PO isosorbide mononitrate 30 mg tablet extended release 24 hr 30 mg PO DAILY Qty: 30 2RF nitroglycerin 0.4 mg tablet, sublingual 0.4 mg sublingual Q5M PRN (Reason: chest pain) Qty: 20 2RF Rx Instructions: do not exceed 3 doses per episode aspirin [Adult Aspirin Regimen] 81 mg tablet,delayed release (DR/EC) 81 mg PO DAILY carvedilol 12.5 mg tablet 25 mg PO BID amlodipine 10 mg tablet 10 mg PO DAILY Qty: 60 0RF hydralazine 25 mg tablet 75 mg PO TID Interventions: Acute Care Transfer Worksheet (ED) Last Done: 07/18/22 02:30 Discharge Date/Time: 07/18/22 02:30
[2022-07-17 21:20] VITALS: BP 121/97; BP 122/70; PULSE 46; TEMP 36.4; O2SAT 95; BMI 31.1
[2022-07-17 21:22] LABS: MANUAL DIFF FLAG NO
[2022-07-17 21:26] LABS: Basophils Absolute Auto 0.1 X10*3/uL (0.0-0.2); Basophils Percent Auto 0.4 % (0-2); Eosinophils Absolute Auto 0.1 X10*3/uL (0.0-0.4); Eosinophils Percent Auto 0.4 % (0-4); Hemoglobin 9.5 g/dl (14.0-18.0); Imm Gran Abs Auto 0.12 X10*3/uL (0.00-0.03); Imm Gran Pct Auto 0.8 % (0.0-0.4); Lymphocytes Absolute Auto 1.2 X10*3/uL (1.2-4.9); Lymphocytes Percent Auto 7.6 % (20-40); Mean Corpuscular HGB Conc 30.6 g/dl (31.0-36.0); Mean Corpuscular Hemoglobin 27.8 pg (27.0-33.0); Mean Corpuscular Volume 90.6 fL (80.0-98.0); Mean Platelet Volume 11.7 fL (9.4-12.4); Monocytes Absolute Auto 1.3 X10*3/uL (0.1-1.2); Monocytes Percent Auto 8.1 % (2-11); Neutrophils Percent Auto 82.7 % (45-73); Platelet Count 307 X10*3/uL (160-400); Red Blood Count 3.42 X10*6/uL (4.60-5.80); Red Cell Distribution Width 15.8 % (11.0-16.0); White Blood Count 15.8 X10*3/uL (4.8-10.8)
[2022-07-17 21:43] LABS: Influenza A PCR NEGATIVE (Negative); Influenza B PCR NEGATIVE (Negative); Resp Syncy Virus RNA Qual PCR NEGATIVE (Negative); SARS COV2 PCR INHOUSE NEGATIVE (Negative)
[2022-07-17 21:54] LABS: Troponin-I High Sensitivity 9.6 ng/L (<3.5-35.0)
--- NOTE | 2022-07-17 22:01 | PC.NURSE ---
critical results recvd from lab (marlene) potassium 6.8 cre 10.56 provider notified
[2022-07-17 22:02] LABS: Anion Gap 22 (12-20); Blood Urea Nitrogen 78 mg/dL (9-16); Calcium 8.4 mg/dL (8.4-10.2); Carbon Dioxide 20 mmol/L (22-29); Chloride 98 mmol/L (96-108); Creatinine Clr Calc Pharmacy 7.5; Estimated Glomerular Filt Rate 5; Glucose Random 189 mg/dL (60-115); Potassium 6.8 mmol/L (3.3-5.1); Sodium 133 mmol/L (135-145)
[2022-07-17 22:36] LABS: Alanine Aminotransferase 15 U/L (0-40); Albumin Level 3.7 g/dL (3.5-5.0); Alkaline Phosphatase 113 U/L (39-117); Aspartate Amino Transferase 11 U/L (5-37); Bilirubin Direct 0.2 mg/dL (0.0-0.5); Bilirubin Total 0.8 mg/dL (0.0-1.0); Total Protein 6.4 g/dL (6.5-8.0)
[2022-07-17] MEDS: Calcium Gluconate/NaCl,Iso-Osm 2 GM/100 ML PLAST..BAG IV (22:40)
[2022-07-17] MEDS: Sodium Bicarbonate 8.4% 50 MEQ/50 ML SYRINGE IVPUSH (22:40)
[2022-07-17 22:41] VITALS: RESP 19
[2022-07-17] MEDS: Sodium Zirconium Cyclosilicate 10 GM POWD.PACK PO (22:41)
[2022-07-17] MEDS: Morphine Sulfate 4 MG/ML CARTRIDGE IVPUSH (22:41)
[2022-07-17] MEDS: ondansetron HCL 4 MG/2 ML VIAL IVPUSH (22:41)
[2022-07-17] MEDS: Insulin Regular, Human 100 UNIT/ML 3 ML VIAL IVPUSH (22:43)
[2022-07-17 22:53] LABS: B Type Natriuretic Peptide 404 pg/mL (<100)
--- NOTE | 2022-07-17 23:54 | PC.NURSE ---
Report given to PADILLA Gutierrez at [facility] M5 pt to rm [id number]
[2022-07-18] VITALS: TEMP 36.6
[2022-07-18] MEDS: Dextrose 50 % 25 GM/50 ML SYRINGE IVPUSH (00:18)
[2022-07-18] MEDS: Furosemide 100 MG/10 ML VIAL 60 MG IVPUSH (01:32)
[2022-07-18 01:42] VITALS: BP 121/99; PULSE 122; RESP 15; O2SAT 91
[2022-07-18 01:54] LABS: Glucose, Whole Blood 181 mg/dL (60-115)
== END 2022-07-18 02:30 | disposition short-term general hospital (02) ==
PROVIDERS: Emergency Provider Internal Medicine; PCP Family Medicine
DX: I31.39 Other pericardial effusion (noninflammatory) (principal); I31.4 Cardiac tamponade; J90 Pleural effusion, not elsewhere classified; E87.5 Hyperkalemia; R06.02 Shortness of breath; E11.22 Type 2 diabetes mellitus with diabetic chronic kidney disease; I12.0 Hypertensive chronic kidney disease with stage 5 chronic kidney disease or end stage renal disease; N18.5 Chronic kidney disease, stage 5; Z99.2 Dependence on renal dialysis; Z20.822 Contact with and (suspected) exposure to COVID-19; Z20.828 Contact with and (suspected) exposure to other viral communicable diseases; Z79.4 Long term (current) use of insulin; Z79.82 Long term (current) use of aspirin; Z79.899 Other long term (current) drug therapy; Z87.891 Personal history of nicotine dependence
CPT/HCPCS: 0241U; 36415; 71045; 71250; 80048; 80076; 82947; 83880; 84484; 85025; 93005; 96365; 96366; 96375; 99285; J0611; J1940; J2270; J2405

== ENCOUNTER → 2022-08-17 10:24 | Outpatient (REF) | payer MEDICARE, MEDICAID, SELFPAY ==
--- NOTE | 2022-08-17 10:48 | CA_ITS ---
Transthoracic Echocardiogram/Limited Patient (Last, First, Middle): Joshua Torres, Gender: Male Date of : 1960 Age: 61 Procedure Date: 08/17/2022 Procedure Type: Transthoracic Echocardiogram/Limited Location: OP Height: 167.64 cm Weight: 78.47 kg BSA: 1.88 m2 Heart Rate: bpm BP: 120 / 80 mmHg Audio Visual Coordinator: TO Referring MD: Jose Guy MD Arboriculture Teacher: Jose Guy MD Symptoms: I30.9 - Acute pericarditis, unspecified Study Quality: Fair ECG Rhythm: Atrial Fibrillation Conclusions: - 1. Small to moderate pericardial effusion, more prominent and loculated near LV 2. Low normal LV systolic function 3. Normal RV systolic pressure Findings Left Ventricle Normal left ventricular cavity size. There is mildly increased left ventricular wall thickness. The left ventricular systolic function is low normal. The visually estimated ejection fraction is between 50-55%. Tricuspid Valve The right ventricular systolic pressure is 24 mmHg. Normal right atrial pressure. Venous The inferior vena cava is mildly dilated and collapses greater than 50% with inspiration. Pericardium/Pleural Small to moderate pericardial effusion, more prominent and loculated near the LV. no clear obvious suggestion of constriction Measurements 2D Linear Measurements IVSd: 1.27 0.6-0.9/0.6-1.0 cm LVIDd: 4.74 3.9-5.3/4.2-5.9 cm LVIDd Index: 2.52 2.4-3.2/2.2-3.1 cm/m2 LVIDs: 3.45 2.0-3.6 cm LVPWd: 1.08 0.7-1.1 cm LA Diam: 4.20 2.7-3.8/3.0-4.0 cm LAIDs Index: 2.23 1.5-2.3 cm/m2 LV Mass: 259.90 67-162/88-224 g LV Mass Index: 138.24 43-95/49-115 g/m2 2D Systolic Function EF 4C: 53.60 >55% EF 2C: 44.40 >55% EF BiP: 49.30 >55% Right Ventricle TAPSE (mm): 9.55 TVS' Agustin: 6.96 Tricuspid Valve TR Pk Agustin: 2.01 TR Pk Grad: 16.00 RA Press: 8.00 RVSP: 24.00 Updated in Other Vendor System with Status of Final Jose Guy MD electronically signed on 08/18/2022 11:28:32 AM with status of Final
[2022-08-17 11:06] LABS: Hematocrit 28.6 % (42.0-52.0); Hemoglobin 9.1 g/dl (14.0-18.0); Mean Corpuscular HGB Conc 31.8 g/dl (31.0-36.0); Mean Corpuscular Hemoglobin 28.6 pg (27.0-33.0); Mean Corpuscular Volume 89.9 fL (80.0-98.0); Mean Platelet Volume 12.1 fL (9.4-12.4); Platelet Count 157 X10*3/uL (160-400); Red Blood Count 3.18 X10*6/uL (4.60-5.80); Red Cell Distribution Width 14.5 % (11.0-16.0); White Blood Count 5.9 X10*3/uL (4.8-10.8)
[2022-08-17 11:11] LABS: INTERNATIONAL NORM RATIO 1.1 (0.9-1.1); Prothrombin Time 12.4 SEC (10.0-13.1)
[2022-08-17 13:18] LABS: Anion Gap 15 (12-20); Blood Urea Nitrogen 37 mg/dL (9-16); Calcium 8.6 mg/dL (8.4-10.2); Carbon Dioxide 25 mmol/L (22-29); Chloride 106 mmol/L (96-108); Estimated Glomerular Filt Rate 9; Glucose Random 74 mg/dL (60-115); Potassium 5.4 mmol/L (3.3-5.1); Sodium 141 mmol/L (135-145)
== END ==
LOC: HO.CARD 10:24
PROVIDERS: PCP Family Medicine; Visit Provider Internal Medicine Cardiovascular Disease
DX: I21.19 ST elevation (STEMI) myocardial infarction involving other coronary artery of inferior wall (principal); I30.9 Acute pericarditis, unspecified; I42.9 Cardiomyopathy, unspecified
CPT/HCPCS: 36415; 80048; 85027; 85610; 93308

== ENCOUNTER 2022-08-23 23:07 | Emergency (ER) | payer MEDICARE, MEDICAID, SELFPAY ==
--- NOTE | 2022-08-24 00:14 | ED.GENADULT ---
HPI - General Adult General Stated complaint: ONE STITCH MISSING FROM DIALYSIS PORT Time Seen by Provider: 08/23/22 23:54 Source: patient Mode of arrival: ambulatory Limitations: no limitations History of Present Illness HPI narrative: 61-year-old male history of angina hypertension, cardiomyopathy, CKD on dialysis via Nathan catheter presents for evaluation of Nathan catheter he states with the sutures became loose and he wanted to ensure that the catheter was okay. Denies pain, fevers, chills, nausea, vomiting, chest pain, shortness of breath. He states he supposed to see his doctor tomorrow to get this catheter removed. Related Data Home Medications Medication Instructions Recorded Confirmed albuterol sulfate 90 mcg/actuation 2 puff PO Q4-6H PRN Shortness Of 11/25/21 07/08/22 aerosol inhaler (ProAir HFA) Breath alcohol swabs (Alcohol Prep Pads) 1 pad topical TID 11/25/21 07/08/22 blood sugar diagnostic (FreeStyle 11/25/21 07/08/22 Lite Strips) clotrimazole 1 % topical cream 1 appl topical BID 11/25/21 07/08/22 diclofenac sodium 1 % topical gel 2 g topical BID PRN pain 11/25/21 07/08/22 insulin glargine 100 unit/mL (3 25 unit subcut DAILY 11/25/21 07/08/22 mL) subcutaneous pen (Lantus Solostar U-100 Insulin) ipratropium bromide 21 mcg (0.03 2 spray intranasal TID 11/25/21 07/08/22 %) nasal spray omega-3 acid ethyl esters 1 gram 2 cap PO BID 11/25/21 07/18/22 capsule pen needle, diabetic 32 gauge x 11/25/21 07/08/22 5/32 (Pentips) aspirin 81 mg tablet,delayed 81 mg PO DAILY 12/16/21 07/18/22 release (Adult Aspirin Regimen) carvedilol 12.5 mg tablet 25 mg PO BID 12/16/21 07/18/22 cyanocobalamin (vitamin B-12) 1 tab PO QAM 12/16/21 07/08/22 1,000 mcg tablet furosemide 40 mg tablet 40 mg PO QAM 12/16/21 07/08/22 hydralazine 25 mg tablet 75 mg PO TID 12/16/21 07/18/22 levothyroxine 112 mcg tablet 112 mcg PO QAM 12/16/21 07/18/22 omeprazole 40 mg capsule,delayed 40 mg PO BID 12/16/21 07/18/22 release rosuvastatin 10 mg tablet 10 mg PO BEDTIME 12/16/21 07/18/22 tamsulosin 0.4 mg capsule 0.4 mg PO QPM 12/16/21 07/18/22 zolpidem 10 mg tablet 10 mg PO BEDTIME 12/16/21 07/08/22 clonazepam 1 mg tablet 1 mg PO BID 03/31/22 07/08/22 oxycodone-acetaminophen 10 mg-325 1 tab PO Q4H PRN severe pain 03/31/22 07/08/22 mg tablet Previous Rx's Medication Instructions Recorded amlodipine 10 mg tablet 10 mg PO DAILY #60 tabs 12/16/21 sodium,potassium,mag sulfates 17.5 See Rx Instructions PO .COMPLEX 01/27/22 gram-3.13 gram-1.6 gram oral soln #354 mL (Suprep Bowel Prep Kit) isosorbide mononitrate 30 mg 30 mg PO DAILY #30 tabs 07/08/22 tablet,extended release 24 hr nitroglycerin 0.4 mg sublingual 0.4 mg sublingual Q5M PRN chest 07/08/22 tablet pain #20 tabs Allergies Allergy/AdvReac Type Severity Reaction Status Date / Time No Known Allergies Allergy Verified 03/31/22 15:16 Review of Systems Review of Systems: Constitutional : No Weight loss, No Fever, No Chills, No Fatigue, No Malaise ENT/Mouth : No sore throat, No Rhinorrhea Eyes: No Eye Pain, No Swelling, No Redness Cardiovascular : No Chest Pain, No SOB, No Dyspnea on Exertion, No Orthopnea, No Edema, No Palpitations Respiratory : No Cough, No Sputum, No Wheezing Gastrointestinal : No Nausea, No Vomiting, No Diarrhea, No Constipation, No abdominal Pain, No Hematochezia, No Melena Genitourinary : No Dysuria, No Urinary Frequency, No Hematuria, Musculoskeletal : No joint pain, No Myalgias, No Joint Swelling Skin : No Skin Lesions, No rash Neuro : No Weakness, No Numbness, No Dizziness, No Headache Psych : No Anxiety/Panic, No Depression All other systems reviewed and are negative Yes all other systems are reviewed and are negative [facility] Past Medical History Attestation statement: The following information was validated with the patient. Source: old records reviewed and nursing notes reviewed Medical History Asthma CAD (coronary artery disease) Colon adenomas Colon cancer screening CVA (cerebral vascular accident) Diabetes End stage renal disease Essential hypertension Hypertension Non-cardiac chest pain Normocytic anemia Type 2 diabetes mellitus with unspecified complications Surgical History H/O neck surgery History of bladder surgery History of colonoscopy History of nephrectomy Hx of colonoscopy Stented coronary artery Family History Family History Other No family history of coronary artery disease Social History Social History Are you a primary director of primary care to a significant other at home: No Do you presently have visiting nurse or other home services: Yes ([employer] SERV[employer]ENT 11 day hours, 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) Alcohol intake: never Patient Tobacco Use Status: Former Tobacco user Quit Date: Tobacco use type: Cigarette service: No Current occupational status: disabled Physical Exam ED Vital Signs: vss Appearance: Alert.? Oriented X3.? No acute distress.? Head: Normocephalic, atraumatic, no step-offs or deformities Eyes: Pupils equal, round and reactive to light.? Neck: Normal inspection.? Neck supple.? CVS: Normal heart rate and rhythm.? Pulses normal.?+ adequately placed nathan catheter ( no abnormalities noted) Respiratory: No respiratory distress.? Breath sounds normal.? Abdomen: Soft and nontender.? Skin: Skin warm and dry.? Normal skin color.? Normal skin turgor.? Extremities: No lower extremity edema.? No calf ttp. 5/5 strength to bilateral upper and lower extremities Neuro: Oriented X 3.? No motor deficit.? No sensory deficit. CN 2-12 intact Course Reevaluation(s) Reevaluation #1: My attending visualized the catheter and also reports normal placement no abnormalities. Educated patient on diagnosis and treatment plan, answered all question, patient verbalizes understanding. At this time patient will be discharged home, advised to return with new or worsening symptoms. Educated on worrisome signs and symptoms and when to return. At this time I feel comfortable discharge home. Time: 00:17 Medical Decision Making Medical Decision Making [facility] Narrative: 0015 61-year-old male presents for evaluation of Nathan catheter, 1 of the sutures became loose and he wants to ensure it is still okay. Physical exam with an adequately place Nathan catheter, well secured. No abnormality Normal physical exam. No signs of cellulitis, or signs of poorly secured catheter Plan discharge home Differential Diagnosis Differential Diagnoses: The differential diagnosis associated with the presentation includes Normal physical exam. No signs of cellulitis, or signs of poorly secured catheter Admission/Observation Consideration of admission/observation: Escalation of care including admission/observation considered Not indicated Core Measures AMI core measures followed: Yes Measure exclusions: not indicated Discharge Plan Discharge Clinical Impression: Normal physical exam Patient Disposition: Home, Self-Care Additional Instructions: Take your medications as prescribed. If you were prescribed antibiotics today, it is important that you take your medication to their entirety, do not skip any doses, do not finish them early. Follow-up with your primary care provider this week. Return to the emergency department with new or worsening symptoms. Such as fevers, chills, chest pain, shortness of breath, nausea, vomiting, dizziness, headache, vision changes, lethargy In case of emergency call 911 Prescriptions: No Action (DME) FreeStyle Lite Strips Strip Not Applicable alcohol swabs [Alcohol Prep Pads] Pads, Medicated 1 pad TOPICAL TID albuterol sulfate [ProAir HFA] 90 mcg/actuation HFA aerosol inhaler 2 puff PO Q4-6H PRN (Reason: Shortness Of Breath) clotrimazole 1 % cream 1 appl topical BID ipratropium bromide 21 mcg (0.03 %) spray,non-aerosol 2 spray intranasal TID omega-3 acid ethyl esters 1 gram capsule 2 cap PO BID insulin glargine [Lantus Solostar U-100 Insulin] 100 unit/mL (3 mL) insulin pen 25 unit subcut DAILY diclofenac sodium 1 % gel 2 g topical BID PRN (Reason: pain) (DME) pen needle, diabetic [Pentips] 32 gauge x 5/32 needle MISCELLANEOUS QID omeprazole 40 mg capsule,delayed release(/EC) 40 mg PO BID rosuvastatin 10 mg tablet 10 mg PO BEDTIME tamsulosin 0.4 mg capsule 0.4 mg PO QPM zolpidem 10 mg tablet 10 mg PO BEDTIME cyanocobalamin (vitamin B-12) 1,000 mcg tablet 1 tab PO QAM furosemide 40 mg tablet 40 mg PO QAM levothyroxine 112 mcg tablet 112 mcg PO QAM clonazepam 1 mg tablet 1 mg PO BID oxycodone-acetaminophen 10-325 mg tablet 1 tab PO Q4H PRN (Reason: severe pain) Rx Instructions: 10 mg every 4 hours sodium,potassium,mag sulfates [Suprep Bowel Prep Kit] 17.5-3.13-1.6 gram recon soln See Rx Instructions PO .COMPLEX Qty: 354 0RF Rx Instructions: DILUTE; drink full amount early evening before AND next morning at least 2 hr before procedure; follow w 960 mL water PO isosorbide mononitrate 30 mg tablet extended release 24 hr 30 mg PO DAILY Qty: 30 2RF nitroglycerin 0.4 mg tablet, sublingual 0.4 mg sublingual Q5M PRN (Reason: chest pain) Qty: 20 2RF Rx Instructions: do not exceed 3 doses per episode aspirin [Adult Aspirin Regimen] 81 mg tablet,delayed release (DR/EC) 81 mg PO DAILY carvedilol 12.5 mg tablet 25 mg PO BID amlodipine 10 mg tablet 10 mg PO DAILY Qty: 60 0RF hydralazine 25 mg tablet 75 mg PO TID
[2022-08-24 00:17] VITALS: BP 137/86; BP 151/81; PULSE 109; PULSE 113; RESP 16; TEMP 36.8; O2SAT 100; O2SAT 99; BMI 28.3
== END 2022-08-24 00:27 | disposition home or self-care (01) ==
PROVIDERS: Emergency Provider Internal Medicine; PCP Family Medicine
DX: Z03.89 Encounter for observation for other suspected diseases and conditions ruled out (principal); E11.22 Type 2 diabetes mellitus with diabetic chronic kidney disease; I12.0 Hypertensive chronic kidney disease with stage 5 chronic kidney disease or end stage renal disease; N18.6 End stage renal disease; Z99.2 Dependence on renal dialysis; Z79.4 Long term (current) use of insulin; Z79.899 Other long term (current) drug therapy; Z79.82 Long term (current) use of aspirin; Z79.02 Long term (current) use of antithrombotics/antiplatelets
CPT/HCPCS: 99282

== ENCOUNTER → 2022-11-02 13:16 | Outpatient (BNVA) | payer MEDICARE, MEDICAID, SELFPAY | PROVIDERS: PCP Family Medicine; Referring Provider Family Medicine; Visit Provider Internal Medicine Cardiovascular Disease | DX: I31.39 Other pericardial effusion (noninflammatory) (principal); I25.10 Atherosclerotic heart disease of native coronary artery without angina pectoris; Z79.899 Other long term (current) drug therapy | CPT/HCPCS: 99212 ==

== ENCOUNTER 2022-12-10 13:08 | Outpatient (AMB) | payer MEDICARE, MEDICAID, SELFPAY ==
[2022-12-10 13:19] VITALS: BP 100/70; BMI 30.1
--- NOTE | 2022-12-10 13:19 | MHC.OFFVIS ---
Intake Vital Signs 12/10/22 13:19 Height 5 ft 5 in Weight 180 lb 12.465 oz BMI 30.1 BP 100/70 Blood Pressure Location Rt brachial Position Sitting Intake Visit Reasons: follow up Intake Note: f/u patients having chest pain ans s/b Crab Picker Required: No Allergies No Known Allergies Allergy (Verified 12/10/22 13:31) Medication List - Last Reconciled 12/10/22 by SHANTELLE Mesa albuterol sulfate 90 mcg/actuation (ProAir HFA) 2 puffs PO Q4-6H PRN alcohol swabs (Alcohol Prep Pads) 1 pad topical TID amlodipine 10 mg PO DAILY aspirin (Adult Aspirin Regimen) 81 mg PO DAILY blood sugar diagnostic (FreeStyle Lite Strips) calcitriol 0.25 mcg PO 3XW carvedilol 25 mg PO BID clonazepam 1 mg PO BID clotrimazole 1% 1 appl topical BID colchicine 0.6 mg PO BID diclofenac sodium 1% 2 grams topical BID PRN furosemide 40 mg PO QAM PRN gabapentin 100 mg PO insulin glargine (Lantus Solostar U-100 Insulin) 25 units subcut DAILY ipratropium bromide 2 sprays intranasal TID levothyroxine 112 mcg PO QAM loratadine 10 mg PO Q OTHER DAY nitroglycerin 0.4 mg sublingual Q5M PRN omeprazole 40 mg PO BID oxycodone-acetaminophen 10-325 mg 1 tab PO Q4H PRN pen needle, diabetic (Pentips) rosuvastatin 10 mg PO BEDTIME sodium,potassium,mag sulfates 17.5-3.13-1.6 gram (Suprep Bowel Prep Kit) DILUTE; drink full amount early evening before AND next morning at least 2 hr before procedure; follow w 960 mL water PO tamsulosin 0.4 mg PO QPM zolpidem 10 mg PO BEDTIME HPI follow up HPI Details Joshua is a 62-year-old male with past medical history of hypertension, diabetes, reanl cancer s/p right nephrectomy, end-stage renal disease and on dialysis, 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 Follow-up echo through our office showed small to moderate effusion, loculated near the left ventricle. He was seen last month by Dr. Guy and now presents for report of symptoms. Today he reports that he has been having increasing fatigue and shortness of breath. His is present and states he is off in the the last few weeks. He has been having new issues with word searching. He has a hx of CVAs in past. One left him with right sided weakness and right facial droop. He says he has had some chest pains but unable to find the right words to describe it. He does say if he walks any distances, he gets very tired and sob. No presyncope, syncope, falls. No PND, orthopnea or edema. Goes to dialysis 3 times weekly. Already went this morning. BPs have been running low in dialysis recently [facility] Medical History Asthma CAD (coronary artery disease) Colon adenomas Colon cancer screening CVA (cerebral vascular accident) Diabetes End stage renal disease Essential hypertension Hypertension Non-cardiac chest pain Normocytic anemia Type 2 diabetes mellitus with unspecified complications Surgical History H/O neck surgery History of bladder surgery History of colonoscopy History of nephrectomy Hx of colonoscopy Stented coronary artery Family History Other No family history of coronary artery disease Social History Are you a primary health care facilities inspector to a significant other at home: No Do you presently have visiting nurse or other home services: Yes (CERTIFIED PROSTHETIST 11 day hours, 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) Alcohol intake: never Patient Tobacco Use Status: Former Tobacco user Quit Date: Tobacco use type: Cigarette Advance Directives: No Advance Directives Information Provided: Yes service: No Current occupational status: disabled Review of Systems Const All systems reviewed & are unremarkable except as noted in HPI and below ENT Reports dizziness Card Denies chest pain, Denies chest pain at rest, Denies chest pain with activity, Denies rapid heart rate, Denies pedal edema, Denies edema, Denies leg edema, Denies lightheadedness, Denies palpitations, Denies dyspnea, Denies dyspnea on exertion and Denies orthopnea Resp Denies cough, Denies dyspnea and Denies dyspnea on exertion GI Denies hematochezia and Denies change in stool character Musc Denies abnormal gait, Reports limited range of motion, Reports muscle cramps, Denies muscle weakness, Denies numbness, Denies radiating pain into limb, Denies stiffness and Denies tingling Neuro Denies abnormal gait, Reports dizziness, Denies numbness and Denies tingling Endo Denies palpitations Physical Exam Vital Signs: Last Vital Signs BP 100/70 12/10/22 13:19 BMI result Body Mass Index 30.1 Const General: cooperative, healthy appearing, comfortable and no acute distress Orientation/consciousness: patient oriented x3 HEENT Head: Yes normal to inspection Eyes Sclerae: sclerae normal Neck Neck: Yes normal visual inspection Carotids: normal carotid upstroke Chest Chest palpation & inspection: normal inspection of the chest Resp Effort & Inspection: normal respiratory effort Auscultation: clear to auscultation bilaterally, no crackles, no rales, no rhonchi and no wheezes Cardio Jugular venous distension: no JVD Rate: regular rate Rhythm: regular rhythm Heart sounds: S1 normal heart sound present, S2 normal heart sound present, no gallops, no murmurs and no rubs Peripheral pulses: Peripheral pulses 2+ throughout GI Inspection: Yes normal to inspection Skin General skin exam: no rashes or lesions noted Neuro General: patient oriented x3 Extrem General: Yes normal to inspection Psych Appearance: grossly normal Mental Status: mental status grossly normal Speech and movement: Normal speech and movement present Office Procedures EKG Details: Today - ready by me, atrial flutter rate 113 [id number], Complete Assessment & Plan Assessment & Plan (1) Pericardial effusion: Code(s): I31.39 - Other pericardial effusion (noninflammatory) Plan: [facility] admission June 2022 findings of large pericardial effusion. He underwent pericardiocentesis with drain placement. [place] [facility] [place] shows EF 50-55%, small to moderate effusion, loculated. near the LV. He was seen for follow-up last month, clinically was doing well and plan was to do repeat echocardiogram in 6 months. Pathology on the pleural fluid shows acute inflammatory cells in background of blood, Negative for malignant cells. Today is reporting increased shortness of breath, fatigue and Vague discomfort in his chest. he does not appear fluid overloaded on examination. Blood pressure normal range. EKG showing atrial flutter with heart rate 113. - At present it is thought that his atrial flutter may be contributing to his symptoms. (2) Atrial flutter: Code(s): I48.92 - Unspecified atrial flutter Plan: Records reviewed. Last documentation of sinus rhythm [place] [facility] [place]/13/[place]23. EKG from 07/17/2022 shows atrial flutter. His [facility] admission for pericardial effusion was 07/18-07/25/2022. The pericardial effusion was partly hemorrhagic in nature. The use of anticoagulation was avoided at that time, which was approprate. He was noted to have ongoing atrial fibrillation at time of echocardiogram done 08/17/2022. he presents today with some symptoms of shortness of breath, fatigue and vague chest area discomfort. His is present states he has been acting odd recently. He has issues with word-finding which is unusual for him. He has history of prior CVA x3 according to . He has some right-sided weakness and facial droop at baseline. EKG today showing atrial flutter, heart rate 113. He has been on daily aspirin but no other anticoagulation. Case discussed with Dr. Berrios. Will have patient transported to the emergency room for evaluation of possible CVA as well as AFib rate control. CHADVSC of at least 4. He should be started on anticoagulation if no strong contrainidations have been identified. He is currently on carvedilol 25 mg b.i.d. and Likely will need additional agents. patient and are agreeable to this plan. Transported via wheelchair down to emergency room in stable condition without incident. Report given to ER provider. Cardiology follow-up will be following hospital discharge (3) Speech abnormality: Code(s): R47.9 - Unspecified speech disturbances Plan: word finding, acting odd according to in last 2 weeks. (4) Essential hypertension: Code(s): I10 - Essential (primary) hypertension Plan: controlled presently. No med changes made (5) Chest pain: Code(s): R07.9 - Chest pain, unspecified Qualifiers: Chest pain type: precordial pain Qualified Code(s): R07.2 - Precordial pain Plan: [facility] evaluation 10/2021 with concern for NSTEMI. EKG abnormal with T-wave inversions and transferred to [facility] for cardiac catheterization however he did not undergo the procedure due to advanced kidney disease and atypical sounding chest discomfort with negative troponins. His echocardiogram at [facility] did show a mildly reduced EF, inferior lateral wall motion abnormality and grade 2 diastolic dysfunction. He was managed medically. He has not had any recurrent chest discomfort since that time. He does have multiple cardiac risk factors including end-stage renal disease, status post renal cancer and on dialysis, hypertension, diabetes, hyperlipidemia. He did undergo a nuclear stress test on 12/30/2021 showing prior infarct in the basal to mid inferior wall minimal ischemia, normal EF. EKG today shows atrial flutter - no ischemia. Vague reports of CP. Brining him to ED as above. He has been on neurohormonal modulation medications; carvedilol. He is not on Gene/Arb due to his kidney function. He is on aspirin, rosuvastatin and amlodipine. (6) Cardiomyopathy: Code(s): I42.9 - Cardiomyopathy, unspecified Plan: Hx Mild cardiomyopathy as above, likely ischemic. Last echo with EF 50-55%. (7) Inferior myocardial infarction: Code(s): I21.19 - ST elevation (STEMI) myocardial infarction involving other coronary artery of inferior wall (8) CVA (cerebral vascular accident): Code(s): I63.9 - Cerebral infarction, unspecified Plan: Patient and report 3 CVAs in past. They do not recall him ever being on anticoagulation in past (9) Shortness of breath: Code(s): R06.02 - Shortness of breath Plan: a Coding Level of Care Code Est Pt Level 5 (82150) Diagnoses Pericardial effusion I31.39 Atrial flutter I48.92 Speech abnormality R47.9 Essential hypertension I10 Chest pain R07.2 Chest pain type: precordial pain Cardiomyopathy I42.9 Inferior myocardial infarction I21.19 CVA (cerebral vascular accident) I63.9 Shortness of breath R06.02 CPT Codes EKG - CPT: [id number], Complete ([id number]) Time Spent (min) 36 Comment chart review, documentation, interview, assessment
== END 2022-12-10 14:38 | disposition home or self-care (01) ==
PROVIDERS: PCP Family Medicine; Visit Provider Nurse Practitioner Family
DX: I48.92 Unspecified atrial flutter (principal)
CPT/HCPCS: 93010; 99215

== ENCOUNTER → 2022-12-10 13:08 | Outpatient (BNVA) | payer MEDICARE, MEDICAID, SELFPAY | PROVIDERS: PCP Family Medicine; Visit Provider Nurse Practitioner Family ==

== ENCOUNTER 2022-12-10 14:07 | Emergency (ER) | payer MEDICARE, MEDICAID, SELFPAY ==
--- NOTE | ~2022-12-10 | CT_ITS ---
EXAMINATION: CT HEAD WITHOUT CONTRAST CLINICAL INFORMATION: Atrial fibrillation. Word finding difficulty. COMPARISON: Head CT from 03/18/2015 TECHNIQUE: Contiguous axial imaging was performed from the skull base to vertex without intravenous administration of contrast. This CT examination was performed using dose optimization techniques as appropriate, variously including the following: *Automated exposure control *Adjustment of mA and/or kV according to patient size (this includes techniques or standardized protocols for targeted exams where dose is matched to indication/reason for exam; i.e. extremities or head) *Use of iterative reconstruction technique DLP: 651 mGy-cm FINDINGS: No intracranial hemorrhage, extra-axial surface collection, focal mass effect or midline shift. There is atherosclerotic calcification of proximal intradural segments of vertebral arteries and cavernous carotid arteries. Chronic mild patchy hypoattenuation within supratentorial white matter is compatible with sequela of mild microangiopathy. Again noted is encephalomalacia from old infarction involving left basal ganglia with chronic ex vacuo dilatation of the adjacent left lateral ventricle. Mild parenchymal volume loss with commensurate prominence of ventricles and sulci. No hydrocephalus. The brainstem and cerebellum are unremarkable. The calvarium is intact. The mastoid air cells are well aerated. Temporomandibular joints are normal. There is mucosal thickening of bilateral ethmoid sinuses and right sphenoid sinus. There have been ocular lens extractions. CT/CT head/brain wo IV con IMPRESSION: * No acute intracranial pathology compared to 03/18/2015. 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
--- NOTE | ~2022-12-10 | CT_ITS ---
EXAMINATION: CT CHEST WITHOUT CONTRAST CLINICAL INFORMATION: known pericardial effusion, worsening CP and SOB. COMPARISON: 07/17/2022 CT scan. TECHNIQUE: Multidetector volumetric imaging was performed from the thoracic inlet through the lung bases without contrast. Sagittal and coronal reformatted images were obtained on the technologist workstation. Soft tissue and lung algorithms evaluated. Thick slab MIP images were performed to increase nodule conspicuity. This CT examination was performed using dose optimization techniques as appropriate, variously including the following: *Automated exposure control *Adjustment of mA and/or kV according to patient size (this includes techniques or standardized protocols for targeted exams where dose is matched to indication/reason for exam; i.e. extremities or head) *Use of iterative reconstruction technique DLP: 251 mGy-cm. FINDINGS: LUNG: Linear regions of scarring or atelectasis are seen at the lung bases. No dense consolidation or focal airspace disease otherwise. Central airways are unremarkable. MEDIASTINUM: Vascular calcification within the aorta and coronary vessels. No bulky hilar or mediastinal adenopathy seen on this noncontrast study CORONARY ARTERY CALCIFICATION: Extensive PERICARDIUM/PLEURA: On the prior 07/17/2022 study there was a large pericardial effusion. There is no significant pericardial effusion at this time. No pleural effusion either. THYROID/VISUALIZED LOWER NECK: Unremarkable. CHEST WALL/AXILLA: Unremarkable. VISUALIZED UPPER ABDOMEN: Unremarkable. BONES: Unremarkable CT/CT chest wo IV con IMPRESSION: On the prior 07/17/2022 study there was a large pericardial effusion however currently there is no significant pericardial effusion at this time. Linear regions of scarring or atelectasis are seen at the lung bases. Chronic appearing changes otherwise as described.
--- NOTE | ~2022-12-10 | XR_ITS ---
EXAMINATION: XR CHEST CLINICAL INFORMATION: Chest pain COMPARISON: 07/17/2022 TECHNIQUE: Frontal view of the chest was obtained. FINDINGS: Lungs are well expanded. Linear opacity of focal scar or discoid atelectasis of the lingula. Cardiac silhouette is normal in size. Pulmonary vascular pattern is normal. There has been radiographic resolution of previously observed pericardial effusion. No pleural effusion or pneumothorax. The visualized bones are intact. XR/XR chest 1V IMPRESSION: No acute pulmonary disease.
--- NOTE | 2022-12-10 14:17 | ECG_ITS ---
Test Reason : AFLUTTER Blood Pressure : / mmHG Vent. Rate : 118 BPM Atrial Rate : 249 BPM P-R Int : 000 ms QRS Dur : 090 ms QT Int : 350 ms P-R-T Axes : 265 053 270 degrees QTc Int : 490 ms Atrial flutter with variable A-V block Nonspecific ST and T wave abnormality Abnormal ECG When compared with ECG of 17-JUL-2022 20:11, ST now depressed in Inferior leads ST now depressed in Anterolateral leads T wave inversion now evident in Inferior leads Referred By: Generic ED Physician Electronically Signed By:YENY BERMUDEZ MD
--- NOTE | 2022-12-10 15:03 | ED.GENADULT ---
HPI - General Adult General Chief complaint: Headache Stated complaint: flutter mental status change Time Seen by Provider: 12/10/22 17:18 Source: patient Mode of arrival: wheelchair Limitations: no limitations History of Present Illness HPI narrative: Patient comes in the emergency room from the cardiology office. Today, patient was seen at the office, follow-up for a pericardial effusion. It was noted that patient was in atrial flutter and sent to the emergency room. Patient initially complain of chest pain. On arrival to the emergency room stated that he had chest pain for 6 hours. Patient also complaining of palpitations, very mild shortness of breath. No other complaints. Related Data Home Medications Medication Instructions Recorded Confirmed albuterol sulfate 90 mcg/actuation 2 puff PO Q4-6H PRN Shortness Of 11/25/21 12/10/22 aerosol inhaler (ProAir HFA) Breath alcohol swabs (Alcohol Prep Pads) 1 pad topical TID 11/25/21 12/10/22 blood sugar diagnostic (FreeStyle 11/25/21 12/10/22 Lite Strips) clotrimazole 1 % topical cream 1 appl topical BID 11/25/21 12/10/22 diclofenac sodium 1 % topical gel 2 g topical BID PRN pain 11/25/21 12/10/22 insulin glargine 100 unit/mL (3 25 unit subcut DAILY 11/25/21 12/10/22 mL) subcutaneous pen (Lantus Solostar U-100 Insulin) ipratropium bromide 21 mcg (0.03 2 spray intranasal TID 11/25/21 12/10/22 %) nasal spray pen needle, diabetic 32 gauge x 11/25/21 12/10/22 5/32 (Pentips) aspirin 81 mg tablet,delayed 81 mg PO DAILY 12/16/21 12/10/22 release (Adult Aspirin Regimen) carvedilol 12.5 mg tablet 25 mg PO BID 12/16/21 12/10/22 levothyroxine 112 mcg tablet 112 mcg PO QAM 12/16/21 12/10/22 omeprazole 40 mg capsule,delayed 40 mg PO BID 12/16/21 12/10/22 release rosuvastatin 10 mg tablet 10 mg PO BEDTIME 12/16/21 12/10/22 tamsulosin 0.4 mg capsule 0.4 mg PO QPM 12/16/21 12/10/22 zolpidem 10 mg tablet 10 mg PO BEDTIME 12/16/21 12/10/22 clonazepam 1 mg tablet 1 mg PO BID 03/31/22 12/10/22 oxycodone-acetaminophen 10 mg-325 1 tab PO Q4H PRN severe pain 03/31/22 12/10/22 mg tablet calcitriol 0.25 mcg capsule 0.25 mcg PO 3XW 11/02/22 12/10/22 colchicine 0.6 mg tablet 0.6 mg PO BID 11/02/22 12/10/22 furosemide 40 mg tablet 40 mg PO QAM PRN 11/02/22 12/10/22 gabapentin 100 mg capsule 100 mg PO 11/02/22 12/10/22 loratadine 10 mg tablet 10 mg PO Q OTHER DAY 11/02/22 12/10/22 Previous Rx's Medication Instructions Recorded amlodipine 10 mg tablet 10 mg PO DAILY #60 tabs 12/16/21 sodium,potassium,mag sulfates 17.5 See Rx Instructions PO .COMPLEX 01/27/22 gram-3.13 gram-1.6 gram oral soln #354 mL (Suprep Bowel Prep Kit) nitroglycerin 0.4 mg sublingual 0.4 mg sublingual Q5M PRN chest 07/08/22 tablet pain #20 tabs apixaban 5 mg tablet (Eliquis) 5 mg PO BID #60 tabs 12/10/22 digoxin 125 mcg (0.125 mg) tablet 125 mcg PO DAILY #30 tabs 12/10/22 Allergies Allergy/AdvReac Type Severity Reaction Status Date / Time No Known Allergies Allergy Verified 12/10/22 13:31 Review of Systems Review of Systems: Constitutional : No Weight loss, No Fever, No Chills, No Night Sweats, No Fatigue, No Malaise ENT/Mouth : No Hearing loss, No Ear Pain, No Nasal Congestion, No Sinus Pain, No Hoarseness, No sore throat, No Rhinorrhea, No Swallowing Difficulty Eyes: No Eye Pain, No Swelling, No Redness, No Foreign Body, No Discharge, No Vision Changes Cardiovascular : No Chest Pain, No SOB, No Dyspnea on Exertion, orthopnea, no edema, complaining of palpitations Respiratory : No Cough, No Sputum, No Wheezing, No Smoke Exposure, No Dyspnea Gastrointestinal : No Nausea, No Vomiting, No Diarrhea, No Constipation, No abdominal Pain, No Hematochezia, No Melena Genitourinary : no irregular bleeding, No Dysuria, No Urinary Frequency, No Hematuria, No Urinary Incontinence, No Urgency, No Flank Pain, No Urinary Flow Changes, No Hesitancy Musculoskeletal : No joint pain, No Myalgias, No Joint Swelling Skin : No Skin Lesions, No rash Neuro : No Weakness, No Numbness, No Paresthesias, No Loss of Consciousness, No Dizziness, No Headache, history of CVA, chronic history of difficulty finding words, 2-3 months Psych : No Anxiety/Panic, No Depression, No SI/HI/AH/VH, No Social Issues, Heme/Lymph: No Bruising, No Bleeding,No Lymphadenopathy Endocrine : No Polyuria, No Polydipsia, No Temperature Intolerance [facility] [place] Past Medical History Medical History Asthma Atrial flutter CAD (coronary artery disease) Colon adenomas Colon cancer screening CVA (cerebral vascular accident) Diabetes End stage renal disease Essential hypertension Hypertension Non-cardiac chest pain Normocytic anemia Type 2 diabetes mellitus with unspecified complications Surgical History H/O neck surgery History of bladder surgery History of colonoscopy History of nephrectomy Hx of colonoscopy Stented coronary artery Family History Family History Other No family history of coronary artery disease Social History Social History Are you a primary ambulatory care nurse to a significant other at home: No Do you presently have visiting nurse or other home services: Yes ([employer] 11 day hours, 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) Alcohol intake: never Patient Tobacco Use Status: Former Tobacco user Quit Date: Tobacco use type: Cigarette Smoked in Last 30 Days: No Use of substances other than those prescribed or required for medical reasons: No Advance Directives: No Advance Directives Information Provided: Yes service: No Current occupational status: disabled Physical Exam ED Vital Signs: Vital Signs - 24 hr 12/10/22 15:04 12/10/22 16:08 12/10/22 18:32 Temperature 97.5 F 98.4 F Pulse Rate 115 H 103 H 85 Respiratory Rate 18 15 12 Blood Pressure 103/73 135/60 130/69 Pulse Oximetry 100 100 99 Oxygen Delivery Method Room Air Room Air 12/10/22 20:53 Temperature 98.2 F Pulse Rate 55 Respiratory Rate 15 Blood Pressure 114/63 Pulse Oximetry 95 Oxygen Delivery Method Room Air BMI result Body Mass Index 28.5 Const Other: Appearance: Alert. Oriented X3. No acute distress. Eyes: Pupils equal, round and reactive to light. ENT: Pharynx normal. Neck: Normal inspection. Neck supple. No lymph nodes noted. No crepitus CVS: Irregular heart rate, 120-130. Pulses normal. Normal S1 and S2 Respiratory: No respiratory distress. Breath sounds normal. No Wheezing. No rales Abdomen: Soft and nontender. No rigidity. No distention. Skin: Skin warm and dry. Normal skin color. Normal skin turgor. Extremities: No lower extremity edema. No Lacerations. No Rash Neuro: Oriented X 3. No motor deficit. No sensory deficit. Moving all extremities. No slurred speech. CN 2 through 12 grossly intact Psych: calm, cooperative, normal affect Course Course Course Narrative: RME: 62yo M w/PMHx CVA, A. fib w/recent pericardial effusion requiring pericardiocentesis, HTN, DM, Cardiomyopahty, CKD on HD (last HD today), sent in from Cardiology for increasing fatigue/SOB, CP, & difficulty finding words x1 mos, also reports PETER. Not currently on AC. denies recent falls No appreciable focal deficits. EKG room Cardiology showing a flutter with variable AV block. EKG, labs, CXR, head CT ordered Full HPI, ROS and PE to be performed by primary ED provider. Medications Administered Discontinued Medications Generic Name Dose Route Start Last Admin Trade Name Freq PRN Reason Stop Dose Admin Apixaban 5 mg 12/10/22 20:08 12/10/22 20:51 Apixaban 5 Mg Tablet PO 12/10/22 20:09 5 mg ONCE ONE Administration Digoxin 0.125 mg 12/10/22 20:08 12/10/22 20:51 Digoxin 0.125 Mg Tablet PO 12/10/22 20:09 0.125 mg ONCE ONE Administration Metoprolol Tartrate 5 mg 12/10/22 17:38 12/10/22 18:34 Metoprolol Tartrate 5 Mg/5 Ml Vial IVPUSH 12/10/22 17:39 5 mg ONCE ONE Administration Oxycodone HCl 10 mg 12/10/22 19:45 12/10/22 20:51 Oxycodone Hcl Immed Release 5 Mg Tablet PO 12/10/22 19:46 10 mg ONCE ONE Administration Medical Decision Making Medical Decision Making MDM Narrative: -patient in atrial fibrillation with heart rate between 120 and 130, admission being considered. -patient's troponin 1. Is negative -my interpretation of EKG: Atrial flutter, heart rate 118, no ST segment depression or elevation, no T-wave inversion, QTC 490 -I discussed the patient with Dr. Guy. We will start the patient on digoxin and Eliquis. I discussed with the patient risks of benefits of both medications, patient decided to go ahead and start with the treatment. -patient's troponin 1. Is negative. Patient declined a 2nd troponin drawn -interpretation of chest CT: Very mild pericardial effusion, trace fluid. - -patient states that he has residual deficits from 3 previous CVAs. Patient states that he has had difficulty finding words over the last 2-3 months. No acute neurological deficits. NIH score 0, -CT scan of the head negative, patient neurologically intact Differential Diagnosis Differential Diagnoses: The differential diagnosis associated with the presentation includes (Atrial fibrillation, atrial flutter, ACS) Admission/Observation Consideration of admission/observation: Escalation of care including admission/observation considered Consult Healthcare Provider Management of the patient was discussed with: Grinding Wheel Inspector (Cardiology) Lab Data MDM Lab Attestation statement: I reviewed the patient's lab results. 12/10/22 16:06 12/10/22 16:06 Labs: Lab Results 12/10/22 12/10/22 12/10/22 Range/Units 16:06 16:06 16:06 WBC 7.5 (4.8-10.8) X10*3/uL RBC 3.80 L (4.60-5.80) X10*6/uL Hgb 12.0 L D (14.0-18.0) g/dl Hct 35.6 L D (42.0-52.0) % MCV 93.7 (80.0-98.0) fL MCH 31.6 (27.0-33.0) pg MCHC 33.7 (31.0-36.0) g/dl RDW 14.9 (11.0-16.0) % Plt Count 211 D (160-400) X10*3/uL MPV 11.1 (9.4-12.4) fL Immature Gran % (Auto) 0.4 (0.0-0.4) % Neut % (Auto) 70.2 (45-73) % Lymph % (Auto) 19.5 L (20-40) % [place] % (Auto) 7.8 (2-11) % Eos % (Auto) 1.6 (0-4) % Baso % (Auto) 0.5 (0-2) % Lymph # (Auto) 1.5 (1.2-4.9) X10*3/uL [place] # (Auto) 0.6 (0.1-1.2) X10*3/uL Eos # (Auto) 0.1 (0.0-0.4) X10*3/uL Baso # (Auto) 0.0 (0.0-0.2) X10*3/uL Abs Immat Gran (auto) 0.03 (0.00-0.03) X10*3/uL Absolute Neuts (auto) 5.2 (2.0-8.3) x10*3/uL Absolute Nucleated RBC 0.000 (0.0-0.012) X10*3/uL Nucleated RBC % (auto) 0.0 (0.0-0.2) /100WBC PT 11.1 (10.0-13.1) SEC INR 1.0 (0.9-1.1) Sodium 137 (135-145) mmol/L Potassium 4.0 D (3.3-5.1) mmol/L Chloride 96 (96-108) mmol/L Carbon Dioxide 30 H (22-29) mmol/L Anion Gap 15 (12-20) BUN 26 H (9-16) mg/dL Creatinine 5.38 H* (0.5-1.4) mg/dL Estim Creat Clear Calc 14.4 Estimated GFR 11 POC Glucose (60-115) mg/dL Random Glucose 247 H (60-115) mg/dL Calcium 9.6 D (8.4-10.2) mg/dL Magnesium 2.2 (1.6-2.6) mg/dL Total Bilirubin 0.6 (0.0-1.0) mg/dL Direct Bilirubin 0.2 (0.0-0.5) mg/dL AST 13 (5-37) U/L ALT 14 (0-40) U/L Alkaline Phosphatase 110 (39-117) U/L Troponin I High Sens (<3.5-35.0) ng/L B-Natriuretic Peptide (<100) pg/mL Total Protein 8.0 (6.5-8.0) g/dL Albumin 4.3 (3.5-5.0) g/dL 12/10/22 12/10/22 12/10/22 Range/Units 16:06 16:06 18:33 WBC (4.8-10.8) X10*3/uL RBC (4.60-5.80) X10*6/uL Hgb (14.0-18.0) g/dl Hct (42.0-52.0) % MCV (80.0-98.0) fL MCH (27.0-33.0) pg MCHC (31.0-36.0) g/dl RDW (11.0-16.0) % Plt Count (160-400) X10*3/uL MPV (9.4-12.4) fL Immature Gran % (Auto) (0.0-0.4) % Neut % (Auto) (45-73) % Lymph % (Auto) (20-40) % [place] % (Auto) (2-11) % Eos % (Auto) (0-4) % Baso % (Auto) (0-2) % Lymph # (Auto) (1.2-4.9) X10*3/uL [place] # (Auto) (0.1-1.2) X10*3/uL Eos # (Auto) (0.0-0.4) X10*3/uL Baso # (Auto) (0.0-0.2) X10*3/uL Abs Immat Gran (auto) (0.00-0.03) X10*3/uL Absolute Neuts (auto) (2.0-8.3) x10*3/uL Absolute Nucleated RBC (0.0-0.012) X10*3/uL Nucleated RBC % (auto) (0.0-0.2) /100WBC PT (10.0-13.1) SEC INR (0.9-1.1) Sodium (135-145) mmol/L Potassium (3.3-5.1) mmol/L Chloride (96-108) mmol/L Carbon Dioxide (22-29) mmol/L Anion Gap (12-20) BUN (9-16) mg/dL Creatinine (0.5-1.4) mg/dL Estim Creat Clear Calc Estimated GFR POC Glucose 130 H (60-115) mg/dL Random Glucose (60-115) mg/dL Calcium (8.4-10.2) mg/dL Magnesium (1.6-2.6) mg/dL Total Bilirubin (0.0-1.0) mg/dL Direct Bilirubin (0.0-0.5) mg/dL AST (5-37) U/L ALT (0-40) U/L Alkaline Phosphatase (39-117) U/L Troponin I High Sens 5.6 (<3.5-35.0) ng/L B-Natriuretic Peptide 99 (<100) pg/mL Total Protein (6.5-8.0) g/dL Albumin (3.5-5.0) g/dL Independent Interpretation I performed an independent interpretation of an: CT Scan Radiology Impression Discussion of test interpretation with radiology: I have reviewed the radiologist's reading. Radiologist Impression: FINDINGS: LUNG: Linear regions of scarring or atelectasis are seen at the lung bases. No dense consolidation or focal airspace disease otherwise. Central airways are unremarkable. MEDIASTINUM: Vascular calcification within the aorta and coronary vessels. No bulky hilar or mediastinal adenopathy seen on this noncontrast study CORONARY ARTERY CALCIFICATION: Extensive PERICARDIUM/PLEURA: On the prior 07/17/2022 study there was a large pericardial effusion. There is no significant pericardial effusion at this time. No pleural effusion either. THYROID/VISUALIZED LOWER NECK: Unremarkable. CHEST WALL/AXILLA: Unremarkable. VISUALIZED UPPER ABDOMEN:? Unremarkable. BONES: Unremarkable CT/CT chest wo IV con IMPRESSION: On the prior 07/17/2022 study there was a large pericardial effusion however currently there is no significant pericardial effusion at this time. Linear regions of scarring or atelectasis are seen at the lung bases. Chronic appearing changes otherwise as described. ? DLP: 651 mGy-cm FINDINGS: No intracranial hemorrhage, extra-axial surface collection, focal mass effect or midline shift. There is atherosclerotic calcification of proximal intradural segments of vertebral arteries and cavernous carotid arteries. Chronic mild patchy hypoattenuation within supratentorial white matter is compatible with sequela of mild microangiopathy. Again noted is encephalomalacia from old infarction involving left basal ganglia with chronic ex vacuo dilatation of the adjacent left lateral ventricle. Mild parenchymal volume loss with commensurate prominence of ventricles and sulci. No hydrocephalus. The brainstem and cerebellum are unremarkable. The calvarium is intact. The mastoid air cells are well aerated. Temporomandibular joints are normal. There is mucosal thickening of bilateral ethmoid sinuses and right sphenoid sinus. There have been ocular lens extractions. ? CT/CT head/brain wo IV con IMPRESSION: *? No acute intracranial pathology compared to 03/18/2015. *? There is an old infarct involving the left basal ganglia associated with ex vacuo dilatation of the adjacent left lateral ventricle. Critical Care Time Critical Care Time Critical Care Time: Yes Total Critical Care Time: 60 Attestation: I have personally provided critical care time. Time includes review of lab data, radiology results, discussion with consultants, and monitoring for potential decompensation. Intervention performed as documented. Discharge Plan Discharge Clinical Impression: Atrial flutter Patient Disposition: Home, Self-Care Instructions: Atrial Flutter (ED) Additional Instructions: Please follow-up with your primary care physician tomorrow. If you have any worsening or new symptoms, please return to the emergency room or call 911 Prescriptions: New digoxin 125 mcg (0.125 mg) tablet 125 mcg PO DAILY Qty: 30 0RF Eliquis 5 mg tablet 5 mg PO BID Qty: 60 0RF No Action (DME) FreeStyle Lite Strips Strip Not Applicable alcohol swabs [Alcohol Prep Pads] Pads, Medicated 1 pad TOPICAL TID albuterol sulfate [ProAir HFA] 90 mcg/actuation HFA aerosol inhaler 2 puff PO Q4-6H PRN (Reason: Shortness Of Breath) clotrimazole 1 % cream 1 appl topical BID ipratropium bromide 21 mcg (0.03 %) spray,non-aerosol 2 spray intranasal TID insulin glargine [Lantus Solostar U-100 Insulin] 100 unit/mL (3 mL) insulin pen 25 unit subcut DAILY diclofenac sodium 1 % gel 2 g topical BID PRN (Reason: pain) (DME) pen needle, diabetic [Pentips] 32 gauge x 5/32 needle MISCELLANEOUS QID omeprazole 40 mg capsule,delayed release(DR/EC) 40 mg PO BID rosuvastatin 10 mg tablet 10 mg PO BEDTIME tamsulosin 0.4 mg capsule 0.4 mg PO QPM zolpidem 10 mg tablet 10 mg PO BEDTIME levothyroxine 112 mcg tablet 112 mcg PO QAM clonazepam 1 mg tablet 1 mg PO BID oxycodone-acetaminophen 10-325 mg tablet 1 tab PO Q4H PRN (Reason: severe pain) Rx Instructions: 10 mg every 4 hours furosemide 40 mg tablet 40 mg PO QAM PRN sodium,potassium,mag sulfates [Suprep Bowel Prep Kit] 17.5-3.13-1.6 gram recon soln See Rx Instructions PO .COMPLEX Qty: 354 0RF Rx Instructions: DILUTE; drink full amount early evening before AND next morning at least 2 hr before procedure; follow w 960 mL water PO nitroglycerin 0.4 mg tablet, sublingual 0.4 mg sublingual Q5M PRN (Reason: chest pain) Qty: 20 2RF Rx Instructions: do not exceed 3 doses per episode aspirin [Adult Aspirin Regimen] 81 mg tablet,delayed release (DR/EC) 81 mg PO DAILY carvedilol 12.5 mg tablet 25 mg PO BID amlodipine 10 mg tablet 10 mg PO DAILY Qty: 60 0RF calcitriol 0.25 mcg capsule 0.25 mcg PO 3XW loratadine 10 mg tablet 10 mg PO Q OTHER DAY gabapentin 100 mg capsule 100 mg PO colchicine 0.6 mg tablet 0.6 mg PO BID Interventions: ED Discharge Assessment Last Done: 12/10/22 21:20 Discharge Date/Time: 12/10/22 21:22
[2022-12-10 15:04] VITALS: BP 103/73; PULSE 115; RESP 18; TEMP 36.4; O2SAT 100; BMI 28.5
--- OUTSIDE RECORDS SUMMARY | 2022-12-10 15:39 | XMS_ITS | Continuity of Care Document ---
Author Name Unknown Organization [facility] Address [address] [place] [address]- Care Team Providers Care Hospital Education Coordinator Name Role Phone Macie Link DO Primary Care Physician [place] [facility] [place] - 11/04/[address] [address] Attending Physician: Debbie Pope Admitting Physician: AdmDebbie carrington Referring Physician: AdmtrDebbie Allergies, Adverse Reactions, Alerts No Known Allergies Immunizations Given and Recorded Vaccine Date Status Refusal Reason SARS-CoV-2 (COVID-19) mRNA-1273 vaccine 03/12/22 R ecorded SARS-CoV-2 (COVID-19) mRNA-1273 vaccine 10/06/21 R ecorded SARS-CoV-2 (COVID-19) mRNA-1273 vaccine 04/12/21 R ecorded SARS-CoV-2 (COVID-19) mRNA-1273 vaccine 08/19/20 R ecorded SARS-CoV-2 (COVID-19) mRNA-1273 vaccine 07/22/20 R ecorded zoster vaccine, inactivated 09/17/21 Recorded influenza virus vaccine, inactivated 02/23/21 Cabrera rded influenza virus vaccine, inactivated 02/11/20 Cabrera rded influenza virus vaccine, inactivated 02/20/19 Cabrera rded influenza virus vaccine, inactivated 02/21/18 Cabrera rded influenza virus vaccine, inactivated 02/04/17 Cabrera rded influenza virus vaccine, inactivated 02/14/16 Cabrera rded influenza virus vaccine, inactivated 02/28/15 Cabrrea rded influenza virus vaccine, inactivated 04/03/14 Cabrera rded influenza virus vaccine, inactivated 03/02/11 Cabrera rded influenza virus vaccine, inactivated 02/19/10 Cabrera rded influenza virus vaccine, inactivated 04/13/06 Cabrera rded influenza virus vaccine, inactivated 03/06/03 Cabrera rded influenza virus vaccine, inactivated 06/05/02 Cabrera rded hepatitis B adult vaccine 12/19/14 Recorded hepatitis B adult vaccine 05/22/14 Recorded hepatitis B adult vaccine 04/03/14 Recorded pneumococcal 23-valent vaccine 02/04/12 Recorded pneumococcal 23-valent vaccine 11/10/00 Recorded tetanus/diphtheria/pertussis, acel(Tdap) 02/04/12 Recorded tetanus-diphtheria toxoids (Td) 11/10/00 Recorded Medications acetaminophen-oxycodone 325 mg-10 mg oral tablet TAKE 1 TABLET BY MOUTH EVERY 4 HOURS NEEDED FOR SEVERE PAIN (7-10 ON PAIN SCALE) Start Date: 09/06/21 Status: Ordered amLODIPine 10 mg oral tablet 10 mg, 1, tablet, By Mouth, Daily, # 30 tablet, Refills 0, Tot. Refills 0, Maintenance, 11/27/21 15:04:00 EDT, Route to Pharmacy Electronically, [facility], Partial fill upon patient request if the prescription is for a schedule II opioi... Start Date: 11/27/21 Status: Ordered aspirin 81 mg oral delayed release tablet 81 mg, 1, tablet, By Mouth, Daily, # 30 tablet, Refills 0, Tot. Refills 0, Maintenance, 11/27/21 15:02:00 EDT, Route to Pharmacy Electronically, [facility], Partial fill upon patient request if the prescription is for a schedule II opioi... Start Date: 11/27/21 Status: Ordered carvedilol 25 mg oral tablet TAKE 1 TABLET BY MOUTH TWICE DAILY IN THE MORNING AND IN THE EVENING WITH FOOD Start Date: 06/28/22 Status: Ordered clonazePAM 1 mg oral tablet TAKE 1 TABLET BY MOUTH TWICE DAILY Start Date: 06/28/22 Status: Ordered colchicine 0.6 mg oral tablet 0.3 mg, 0.5, tablet, By Mouth, 2 times a day, # 30 tablet, Refills 0, Maintenance, 09/20/22 15:39:00 EDT, Partial fill upon patient request if the prescription is for a schedule II opioid drug. Start Date: 09/20/22 Status: Ordered colchicine 0.6 mg oral tablet 0.3 mg, 0.5, tablet, By Mouth, Daily, # 15 tablet, Refills 0, Tot. Refills 0, Maintenance, 07/25/2313:26:00 EST, Route to Pharmacy Electronically, [facility], Partial fill upon patientrequest if the prescription is for a schedule II op... Start Date: 07/25/22 Status: Ordered hydrALAZINE 25 mg oral tablet 75 mg, 3, tablet, By Mouth, 3 times a day, # 270 tablet, Refills 0, Tot. Refills 0, Maintenance, 11/10/21 12:44:00 EDT, Route to Pharmacy Electronically, [facility], Partial fill upon patient request if the prescription is for a schedule... Start Date: 11/10/21 Status: Ordered levothyroxine 0.112 mg oral tablet TAKE 1 TABLET BY MOUTH EVERY MORNING ON AN EMPTY STOMACH Start Date: 09/06/21 Status: Ordered omeprazole 40 mg oral enteric coated capsule 1 capsule = 40 mg, By Mouth, 2 times a day, TAKE 1 CAPSULE BY MOUTH EVERY MORNING BEFORE A MEAL, # 60 capsule, 0 Refills, Maintenance, 09/06/21 14:55:00 EDT, Suspension, [facility], Partial fill upon patient request if the prescription i... Start Date: 09/06/21 Status: Ordered Rosuvastatin = 40 mg, By Mouth, Daily, 0 Refills, Maintenance, 05/18/22 12:20:00 EST, Partial fill upon patient request if the prescription is for a schedule II opioid drug. Start Date: 05/18/22 Status: Ordered zolpidem 10 mg oral tablet TAKE 1 TABLET BY MOUTH AT BEDTIME Start Date: 09/06/21 Status: Ordered Problem List Condition Confirmation Course Effective Dates Status H ealth Status Informant Anxiety Confirmed Active Chronic systolic congestive heart failure Confirmed Active Clear cell renal cell carcinoma Confirmed Active ESRD on hemodialysis Confirmed Active Depression Confirmed Active Diabetes mellitus Confirmed Active Diabetic nephropathy Confirmed Active History of CVA (cerebrovascular accident) Confirmed Active History of neuroendocrine cancer Confirmed Active Hyperlipidemia Confirmed Active Hypertension Confirmed Active Hypothyroid Confirmed Active Low back pain Confirmed Active Neck pain Confirmed Active Proteinuria Confirmed Active cervical radicular pain Confirmed Active Sleep apnea Confirmed Active Patient Care team information Care Team Personnel Name: Isabela Holly Position: S RN Member Role: Primary Care Nurse Name: Subha Krishna RN Position: [facility] RN Member Role: Primary Care Nurse Name: Renetta Soriano RN Position: [facility] AMB Nurse Member Role: Primary Care Nurse Name: Riana Puentes Position: [facility] Outreach Member Role: Lifetime Consulting Physician Name: Zenaida Last RN Position: [facility] AMB Nurse Member Role: Primary Care Nurse Name: Shelly Nguyen RN Position: [facility] RN Member Role: Primary Care Nurse Name: Lorena Freeman NP Position: [facility] Associate Professional Member Role: Lifetime Consulting Provider Address: Address: [address] [place], [place] [address] [address] Name: Nilsa Gupta RN Position: [facility] RN Member Role: Primary Care Nurse Name: Raphael Turner MD Position: [facility] Renal MD Member Role: Lifetime Consulting Physician Address: Address: [address] [place], [place] [address]E [facility] [address] Name: Macie Link DO Position: [facility] Outreach Member Role: PCP Address: Address: [address] [place] [address]- Name: Era Elizabeth RN Position: [facility] RN Member Role: Primary Care Nurse Name: Dinh Luo RN Position: [facility] RN Member Role: Primary Care Nurse Name: Britney Burch RN Position: [facility] RN Member Role: Primary Care Nurse Name: Eddie Lala Position: [facility] TA Member Role: Lifetime Consulting Physician Name: Mert Cowan Position: [facility] Associate Professional Member Role: Lifetime Consulting Provider Address: Address: [address] [place] [address]- Name: Xenia Bains RN Position: [facility] RN Member Role: Primary Care Nurse Name: Jeffery Diaz MD Position: [facility] Renal MD Member Role: Lifetime Consulting Physician Address: Address: [address] [place] [address] [address] [facility] [address]- Name: Susy Gavin RN Position: [facility] RN Member Role: Primary Care Nurse Name: Jayme Nevarez RN Position: [facility] RN Member Role: Primary Care Nurse Name: Jane Gilmore RN Position: [facility] RN Member Role: Primary Care Nurse Name: Jacki Page RN, I Position: S RN Member Role: Primary Care Nurse Care Team Related Persons Name: PUSHPA OCHOA Address: home [address] [place] [address] Name: MARGARITA TURNER Address: home [address] [address]
--- OUTSIDE RECORDS SUMMARY | 2022-12-10 15:39 | XMS_ITS | Continuity of Care Document ---
Author Name Unknown Organization [facility] Address [address] [place] [address]- Care Team Providers Care Cooler Room Worker Name Role Phone Macie Link DO Primary Care Physician [phone] Encounter [facility] [place] 09/10/22 - 11/20/22 [facility] [address] [place] [address]- Discharge Disposition: A-D/C Home Attending Physician: Cade [...] Cabrera rded influenza virus vaccine, inactivated 02/28/15 Cabrera rded influenza virus vaccine, inactivated 04/03/14 Cabrera [...] 15:04:00 EDT, Route to Pharmacy Electronically, [facility], Partial fill upon patient request if the prescription is for a schedule II opioi... Start Date: 11/27/21 Status: Ordered aspirin 81 mg oral delayed release tablet 81 mg, 1, tablet, By Mouth, Daily, # 30 tablet, Refills 0, Tot. Refills 0, Maintenance, 11/27/21 15:02:00 EDT, Route to Pharmacy Electronically, [facility], Partial fill upon patient request [...] Maintenance, 07/25/2313:26:00 EST, Route to Pharmacy Electronically, [facility], Partial fill upon patientrequest if the prescription is for a schedule II op... Start Date: 07/25/22 Status: Ordered hydrALAZINE 25 mg oral tablet 75 mg, 3, tablet, By Mouth, 3 times a day, # 270 tablet, Refills 0, Tot. Refills 0, Maintenance, 11/10/21 12:44:00 EDT, Route to Pharmacy Electronically, [facility], Partial fill upon patient request [...] 0 Refills, Maintenance, 09/06/21 14:55:00 EDT, Suspension, [facility], Partial fill upon [...] pain Confirmed Active Sleep apnea Confirmed Active Vital Signs Most recent to oldest [Reference Range]: 1 Height 168 cm (09/20/22 3:36 PM) Weight 82.9 kg (09/20/22 3:36 PM) Oxygen Saturation [94-100 %] 97 % (09/20/22 3:36 PM) Pulse Rate [55-90 bpm] 90 bpm (09/20/22 3:36 PM) Body Mass Index [18.5-24.99 kg/m2] 29.37 kg/m2 *H* (09/20/22 3:36 PM) Blood Pressure [90-138/55-84 mm Hg] 129/ 81mm Hg (09/20/22 3:36 PM) Temperature [96.8-100.4 DegF] 97.8 DegF (09/20/22 3:36 PM) Mode of Delivery (Oxygen) Room air (09/20/22 3:36 PM) Blood pressure sites Arm, right (09/20/22 3:36 PM) Temperature Route Oral (09/20/22 3:36 PM) Dry Weight 82.9 kg (09/20/22 3:36 PM) Weight Obtained Via Standing scale (09/20/22 3:36 PM) Dry Weight Obtained Via Standing scale (09/20/22 3:36 PM) Patient Care team information Care Team Personnel Name: Isabela Holly Position: [facility] RN Member Role: Primary Care Nurse Name: Subha Krishna RN Position: [facility] RN Member Role: Primary Care Nurse Name: Renetta Soriano RN Position: [facility] AMB Nurse Member Role: Primary Care Nurse Name: Riana Puentes Position: [facility] Outreach Member Role: Lifetime Consulting Physician Name: Zenaida Last RN Position: [facility] AMB Nurse Member Role: Primary Care Nurse Name: Shelly Nguyen RN Position: [facility] RN Member Role: Primary Care Nurse Name: Lorena Freeman NP Position: [facility] Associate Professional Member Role: Lifetime Consulting Provider Address: Address: [address] [place], [place] [address] [facility] [place] [place] [address]- Name: Nilsa Gupta RN Position: [facility] RN Member Role: Primary Care Nurse Name: Raphael Turner MD Position: [facility] Renal MD Member Role: Lifetime Consulting Physician Address: Address: [address] [facility] [place] [place] [address]- [place] Name: Macie Link DO Position: [facility] Outreach Member Role: PCP Address: Address: [address] [place] [address]- [place] Name: Dinh Luo RN Position: [facility] RN Member Role: Primary Care Nurse Name: Britney Burch RN Position: S RN Member Role: Primary Care Nurse Name: Eddie Lala Position: [facility] TA Member Role: Lifetime Consulting Physician Name: Mert Cowan Position: [facility] Associate Professional Member Role: Lifetime Consulting Provider Address: Address: [address] [place] [address]- [place] Name: Xenia Bains RN Position: [facility] RN Member Role: Primary Care Nurse Name: Jeffery Diaz MD Position: [facility] Renal MD Member Role: Lifetime Consulting Physician Address: Address: [address] [facility] [address] [facility] [place] [address]- [place] Name: Susy Gavin RN Position: [facility] RN Member Role: Primary Care Nurse Name: Jayme Nevarez RN Position: [facility] RN Member Role: Primary Care Nurse Name: Jane Gilmore RN Position: [facility] Onco RN Member Role: Primary Care Nurse Name: Jacki Page RN, I Position: [facility] RN Member Role: Primary Care Nurse Care Team Related Persons Name: CAITLIN OCHOASOL Address: home [address] [place] [address] Name: MARGARITA TURNER Address: home [address] [address]
[2022-12-10 16:08] VITALS: BP 135/60; PULSE 103; RESP 15; TEMP 36.9; O2SAT 100
[2022-12-10 16:12] LABS: MANUAL DIFF FLAG NO
[2022-12-10 16:20] LABS: Basophils Percent Auto 0.5 % (0-2); Eosinophils Absolute Auto 0.1 X10*3/uL (0.0-0.4); Eosinophils Percent Auto 1.6 % (0-4); Hematocrit 35.6 % (42.0-52.0); Imm Gran Abs Auto 0.03 X10*3/uL (0.00-0.03); Imm Gran Pct Auto 0.4 % (0.0-0.4); Lymphocytes Absolute Auto 1.5 X10*3/uL (1.2-4.9); Lymphocytes Percent Auto 19.5 % (20-40); Mean Corpuscular HGB Conc 33.7 g/dl (31.0-36.0); Mean Corpuscular Hemoglobin 31.6 pg (27.0-33.0); Mean Corpuscular Volume 93.7 fL (80.0-98.0); Mean Platelet Volume 11.1 fL (9.4-12.4); Monocytes Absolute Auto 0.6 X10*3/uL (0.1-1.2); Monocytes Percent Auto 7.8 % (2-11); Neutrophils Absolute Auto 5.2 x10*3/uL (2.0-8.3); Neutrophils Percent Auto 70.2 % (45-73); Platelet Count 211 X10*3/uL (160-400); Red Cell Distribution Width 14.9 % (11.0-16.0); White Blood Count 7.5 X10*3/uL (4.8-10.8)
[2022-12-10 16:25] LABS: Prothrombin Time 11.1 SEC (10.0-13.1)
[2022-12-10 16:45] LABS: Alanine Aminotransferase 14 U/L (0-40); Albumin Level 4.3 g/dL (3.5-5.0); Alkaline Phosphatase 110 U/L (39-117); Anion Gap 15 (12-20); Aspartate Amino Transferase 13 U/L (5-37); Bilirubin Direct 0.2 mg/dL (0.0-0.5); Bilirubin Total 0.6 mg/dL (0.0-1.0); Blood Urea Nitrogen 26 mg/dL (9-16); Calcium 9.6 mg/dL (8.4-10.2); Carbon Dioxide 30 mmol/L (22-29); Chloride 96 mmol/L (96-108); Creatinine Clr Calc Pharmacy 14.4; Estimated Glomerular Filt Rate 11; Glucose Random 247 mg/dL (60-115); Magnesium 2.2 mg/dL (1.6-2.6); Sodium 137 mmol/L (135-145); Troponin-I High Sensitivity 5.6 ng/L (<3.5-35.0)
[2022-12-10 16:46] LABS: B Type Natriuretic Peptide 99 pg/mL (<100)
--- NOTE | 2022-12-10 16:47 | PC.NURSE ---
informed MD Roldan of pts heart rhythm - a flutter in the 80s. 8/10 chest pain and creatinine 5.38.
[2022-12-10 18:32] VITALS: BP 130/69; PULSE 85; RESP 12; O2SAT 99
[2022-12-10] MEDS: Metoprolol Tartrate 5 MG/5 ML VIAL IVPUSH (18:34)
[2022-12-10 18:36] LABS: Glucose, Whole Blood 130 mg/dL (60-115)
--- NOTE | 2022-12-10 20:48 | MHC.EDTECH ---
This tech attempted to draw a repeat trop, Patient is refusing and is aware. PADILLA Estrada is aware
[2022-12-10] MEDS: oxyCODONE HCl Immed Release 5 MG TABLET 10 MG PO (20:51)
[2022-12-10] MEDS: Apixaban 5 MG TABLET PO (20:51)
[2022-12-10] MEDS: Digoxin 0.125 MG TABLET PO (20:51)
[2022-12-10 20:53] VITALS: BP 114/63; PULSE 55; RESP 15; TEMP 36.8; O2SAT 95
== END 2022-12-10 21:22 | disposition home or self-care (01) ==
PROVIDERS: Physician Assistant; Emergency Provider Emergency Medicine; PCP Family Medicine
DX: I48.92 Unspecified atrial flutter (principal); R07.89 Other chest pain; R51.9 Headache, unspecified; M54.6 Pain in thoracic spine; I25.10 Atherosclerotic heart disease of native coronary artery without angina pectoris; R06.02 Shortness of breath; Z87.891 Personal history of nicotine dependence; Z79.899 Other long term (current) drug therapy; Z79.01 Long term (current) use of anticoagulants
CPT/HCPCS: 36415; 70450; 71045; 71250; 80048; 80076; 82947; 83735; 83880; 84484; 85025; 85610; 93005; 99212; 99284; 99285

== ENCOUNTER 2022-12-23 10:40 | Emergency (ER) | payer MEDICARE, MEDICAID, SELFPAY ==
--- NOTE | ~2022-12-23 | XR_ITS ---
EXAMINATION: XR CHEST CLINICAL INFORMATION: Atrial flutter. COMPARISON: 12/10/2022 chest radiograph. TECHNIQUE: Frontal view of the chest was obtained. FINDINGS: Linear markings are seen in the left lower chest. The left upper lung field and right lung are clear. The heart and mediastinal structures are unremarkable. XR/XR chest 1V IMPRESSION: Mild linear atelectasis or scarring at the left lung base without significant change. No acute cardiopulmonary process.
--- NOTE | 2022-12-23 10:53 | ECG_ITS ---
Test Reason : FLUTTER Blood Pressure : / mmHG Vent. Rate : 063 BPM Atrial Rate : 252 BPM P-R Int : 000 ms QRS Dur : 114 ms QT Int : 410 ms P-R-T Axes : -54 049 094 degrees QTc Int : 419 ms Atrial flutter with 4:1 A-V conduction Nonspecific ST and T wave abnormality Abnormal ECG When compared with ECG of 10-DEC-2022 14:49, Vent. rate has decreased BY 55 BPM QRS duration has increased ST elevation has replaced ST depression in Inferior leads ST no longer depressed in Anterolateral leads T wave inversion no longer evident in Inferior leads Referred By: Generic ED Physician Electronically Signed By:YENY BERMUDEZ MD
[2022-12-23 11:11] VITALS: BP 112/60; BP 131/69; PULSE 60; PULSE 65; RESP 12; TEMP 36.4; O2SAT 99; BMI 29.8
[2022-12-23 11:40] LABS: MANUAL DIFF FLAG NO
[2022-12-23 11:42] LABS: Basophils Percent Auto 0.5 % (0-2); Eosinophils Absolute Auto 0.2 X10*3/uL (0.0-0.4); Eosinophils Percent Auto 2.8 % (0-4); Hematocrit 33.7 % (42.0-52.0); Hemoglobin 11.3 g/dl (14.0-18.0); Imm Gran Abs Auto 0.01 X10*3/uL (0.00-0.03); Imm Gran Pct Auto 0.1 % (0.0-0.4); Lymphocytes Absolute Auto 1.7 X10*3/uL (1.2-4.9); Lymphocytes Percent Auto 20.9 % (20-40); Mean Corpuscular HGB Conc 33.5 g/dl (31.0-36.0); Mean Corpuscular Hemoglobin 30.5 pg (27.0-33.0); Mean Corpuscular Volume 90.8 fL (80.0-98.0); Mean Platelet Volume 10.9 fL (9.4-12.4); Monocytes Absolute Auto 0.8 X10*3/uL (0.1-1.2); Monocytes Percent Auto 10.4 % (2-11); Neutrophils Absolute Auto 5.2 x10*3/uL (2.0-8.3); Neutrophils Percent Auto 65.3 % (45-73); Platelet Count 206 X10*3/uL (160-400); Red Blood Count 3.71 X10*6/uL (4.60-5.80); Red Cell Distribution Width 15.7 % (11.0-16.0); White Blood Count 7.9 X10*3/uL (4.8-10.8)
[2022-12-23 11:48] LABS: INTERNATIONAL NORM RATIO 1.6 (0.9-1.1); Prothrombin Time 19.2 SEC (11.1-13.3)
[2022-12-23 11:59] LABS: Anion Gap 20 (12-20); Blood Urea Nitrogen 38 mg/dL (9-16); Calcium 9.6 mg/dL (8.4-10.2); Carbon Dioxide 22 mmol/L (22-29); Chloride 98 mmol/L (96-108); Creatinine Clr Calc Pharmacy 9.6; Estimated Glomerular Filt Rate 7; Glucose Random 204 mg/dL (60-115); Potassium 5.1 mmol/L (3.3-5.1); Sodium 135 mmol/L (135-145)
[2022-12-23 12:01] LABS: IDNOW Serial# 08D9AD1C; Strep A Nucleic Acid Negative (Negative)
[2022-12-23 12:02] LABS: Troponin-I High Sensitivity 7.9 ng/L (<3.5-35.0)
[2022-12-23 12:07] VITALS: PULSE 64
[2022-12-23 12:08] LABS: Digoxin 2.4 ng/mL (0.8-2.0)
[2022-12-23 12:14] VITALS: BP 118/69; PULSE 62; RESP 13; TEMP 36.9; O2SAT 96
--- NOTE | 2022-12-23 13:37 | ED.ARRPALP ---
HPI - Arrhythmia/Palpitations General Chief Complaint: Arrhythmia/Palpitations Stated Complaint: FROM MD OFFICE CONCERN FOR DIG TOX,AFLUTTER, Time Seen by Provider: 12/23/22 13:34 Source: patient Mode of arrival: ambulatory Limitations: no limitations History of Present Illness HPI narrative: Patient with history of atrial flutter, and his renal disease on hemodialysis [id number] sent by PCP as a notice couplets in the EKG done in office suspected digoxin toxicity which was elevated 2.4 P patient denies any symptoms no palpitation no dizziness on arrival patient's heart rate was in 60s atrial flutter 4: 1 block no couplets noticed Related Data Home Medications Medication Instructions Recorded Confirmed albuterol sulfate 90 mcg/actuation 2 puff PO Q4-6H PRN Shortness Of 11/25/21 12/10/22 aerosol inhaler (ProAir HFA) Breath alcohol swabs (Alcohol Prep Pads) 1 pad topical TID 11/25/21 12/10/22 blood sugar diagnostic (FreeStyle 11/25/21 12/10/22 Lite Strips) clotrimazole 1 % topical cream 1 appl topical BID 11/25/21 12/10/22 diclofenac sodium 1 % topical gel 2 g topical BID PRN pain 11/25/21 12/10/22 insulin glargine 100 unit/mL (3 25 unit subcut DAILY 11/25/21 12/10/22 mL) subcutaneous pen (Lantus Solostar U-100 Insulin) ipratropium bromide 21 mcg (0.03 2 spray intranasal TID 11/25/21 12/10/22 %) nasal spray pen needle, diabetic 32 gauge x 11/25/21 12/10/22 5/32 (Pentips) aspirin 81 mg tablet,delayed 81 mg PO DAILY 12/16/21 12/10/22 release (Adult Aspirin Regimen) carvedilol 12.5 mg tablet 25 mg PO BID 12/16/21 12/10/22 levothyroxine 112 mcg tablet 112 mcg PO QAM 12/16/21 12/10/22 omeprazole 40 mg capsule,delayed 40 mg PO BID 12/16/21 12/10/22 release rosuvastatin 10 mg tablet 10 mg PO BEDTIME 12/16/21 12/10/22 tamsulosin 0.4 mg capsule 0.4 mg PO QPM 12/16/21 12/10/22 zolpidem 10 mg tablet 10 mg PO BEDTIME 12/16/21 12/10/22 clonazepam 1 mg tablet 1 mg PO BID 03/31/22 12/10/22 oxycodone-acetaminophen 10 mg-325 1 tab PO Q4H PRN severe pain 03/31/22 12/10/22 mg tablet calcitriol 0.25 mcg capsule 0.25 mcg PO 3XW 11/02/22 12/10/22 colchicine 0.6 mg tablet 0.6 mg PO BID 11/02/22 12/10/22 furosemide 40 mg tablet 40 mg PO QAM PRN 11/02/22 12/10/22 gabapentin 100 mg capsule 100 mg PO 11/02/22 12/10/22 loratadine 10 mg tablet 10 mg PO Q OTHER DAY 11/02/22 12/10/22 Previous Rx's Medication Instructions Recorded amlodipine 10 mg tablet 10 mg PO DAILY #60 tabs 12/16/21 sodium,potassium,mag sulfates 17.5 See Rx Instructions PO .COMPLEX 01/27/22 gram-3.13 gram-1.6 gram oral soln #354 mL (Suprep Bowel Prep Kit) nitroglycerin 0.4 mg sublingual 0.4 mg sublingual Q5M PRN chest 07/08/22 tablet pain #20 tabs apixaban 5 mg tablet (Eliquis) 5 mg PO BID #60 tabs 12/10/22 digoxin 125 mcg (0.125 mg) tablet 125 mcg PO DAILY #30 tabs 12/10/22 insulin lispro 100 unit/mL 1 sliding scale dose subcut 12/23/22 subcutaneous half-unit pen USEASDIRECTD #15 mL (Humalog Terry KwikPen (U-100)) Allergies Allergy/AdvReac Type Severity Reaction Status Date / Time No Known Allergies Allergy Verified 12/10/22 13:31 Review of Systems Review of Systems: Yes all other systems are reviewed and are negative [facility] Past Medical History Medical History Asthma Atrial flutter CAD (coronary artery disease) Colon adenomas Colon cancer screening CVA (cerebral vascular accident) Diabetes End stage renal disease Essential hypertension Hypertension Non-cardiac chest pain Normocytic anemia Type 2 diabetes mellitus with unspecified complications Surgical History H/O neck surgery History of bladder surgery History of colonoscopy History of nephrectomy Hx of colonoscopy Stented coronary artery Family History Family History Other No family history of coronary artery disease Social History Social History Are you a primary congregational care pastor to a significant other at home: No Do you presently have visiting nurse or other home services: Yes (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 Oriented X3. No acute distress. Eyes: PERRLA, No Nystagmus ENT: Pharynx normal. Oral Mucosa moist Neck: Normal inspection. Neck supple. CVS: Normal heart rate and rhythm. Pulses normal. No PVCs Respiratory: No respiratory distress. Equal air entry bilateral, no wheezing/rales/rhonchi Abdomen: Soft and nontender. Bowel sounds are present, no mass palpable, no CVA tenderness Skin: Skin warm and dry. Normal skin color. Normal skin turgor. Extremities: No lower extremity edema. No calf tenderness Neuro: Oriented X 3. No motor deficit. No sensory deficit.No cerebellar signs , cranial nerves II-XII intact Medications Administered Discontinued Medications Generic Name Dose Route Start Last Admin Trade Name Freq PRN Reason Stop Dose Admin Sodium Zirconium Cyclosilicate 10 gm 12/23/22 14:20 12/23/22 14:28 Sodium Zirconium Cyclosilicate 10 Gm Powd.Pack PO 12/23/22 14:21 10 gm ONCE ONE Administration Medical Decision Making Medical Decision Making MDM Narrative: Case discussed cardiology Dr. Guy advised to stop digoxin patient does not have any digoxin toxicitysymptoms at this time during stay in the ED patient voided showed atrial flutter no PVC noted patient was given Lokelma for potassium of 5.1 Lab Data [facility] Lab Attestation statement: I reviewed the patient's lab results. 12/23/22 11:33 12/23/22 11:33 Labs: Lab Results 12/23/22 12/23/22 12/23/22 Range/Units 11:33 11:33 11:33 WBC 7.9 (4.8-10.8) X10*3/uL RBC 3.71 L (4.60-5.80) X10*6/uL Hgb 11.3 L (14.0-18.0) g/dl Hct 33.7 L (42.0-52.0) % MCV 90.8 (80.0-98.0) fL MCH 30.5 (27.0-33.0) pg MCHC 33.5 (31.0-36.0) g/dl RDW 15.7 (11.0-16.0) % Plt Count 206 (160-400) X10*3/uL MPV 10.9 (9.4-12.4) fL Immature Gran % (Auto) 0.1 (0.0-0.4) % Neut % (Auto) 65.3 (45-73) % Lymph % (Auto) 20.9 (20-40) % Nuckolls % (Auto) 10.4 (2-11) % Eos % (Auto) 2.8 (0-4) % Baso % (Auto) 0.5 (0-2) % Lymph # (Auto) 1.7 (1.2-4.9) X10*3/uL [place]olls # (Auto) 0.8 (0.1-1.2) X10*3/uL Eos # (Auto) 0.2 (0.0-0.4) X10*3/uL Baso # (Auto) 0.0 (0.0-0.2) X10*3/uL Abs Immat Gran (auto) 0.01 (0.00-0.03) X10*3/uL Absolute Neuts (auto) 5.2 (2.0-8.3) x10*3/uL Absolute Nucleated RBC 0.000 (0.0-0.012) X10*3/uL Nucleated RBC % (auto) 0.0 (0.0-0.2) /100WBC PT (11.1-13.3) SEC INR (0.9-1.1) APTT (26.0-36.4) SEC Sodium 135 (135-145) mmol/L Potassium 5.1 D (3.3-5.1) mmol/L Chloride 98 (96-108) mmol/L Carbon Dioxide 22 (22-29) mmol/L Anion Gap 20 (12-20) BUN 38 H (9-16) mg/dL Creatinine 7.99 H* (0.5-1.4) mg/dL Estim Creat Clear Calc 9.6 Estimated GFR 7 Random Glucose 204 H (60-115) mg/dL Calcium 9.6 (8.4-10.2) mg/dL Troponin I High Sens 7.9 (<3.5-35.0) ng/L Digoxin (0.8-2.0) ng/mL S. pyogenes GrpA KAYLYN (Negative) 12/23/22 12/23/22 12/23/22 Range/Units 11:33 11:33 11:33 WBC (4.8-10.8) X10*3/uL RBC (4.60-5.80) X10*6/uL Hgb (14.0-18.0) g/dl Hct (42.0-52.0) % MCV (80.0-98.0) fL MCH (27.0-33.0) pg MCHC (31.0-36.0) g/dl RDW (11.0-16.0) % Plt Count (160-400) X10*3/uL MPV (9.4-12.4) fL Immature Gran % (Auto) (0.0-0.4) % Neut % (Auto) (45-73) % Lymph % (Auto) (20-40) % Nuckolls % (Auto) (2-11) % Eos % (Auto) (0-4) % Baso % (Auto) (0-2) % Lymph # (Auto) (1.2-4.9) X10*3/uL [place]oll[place] # (Auto) (0.1-1.2) X10*3/uL Eos # (Auto) (0.0-0.4) X10*3/uL Baso # (Auto) (0.0-0.2) X10*3/uL Abs Immat Gran (auto) (0.00-0.03) X10*3/uL Absolute Neuts (auto) (2.0-8.3) x10*3/uL Absolute Nucleated RBC (0.0-0.012) X10*3/uL Nucleated RBC % (auto) (0.0-0.2) /100WBC PT 19.2 H (11.1-13.3) SEC INR 1.6 H (0.9-1.1) APTT 31.0 (26.0-36.4) SEC Sodium (135-145) mmol/L Potassium (3.3-5.1) mmol/L Chloride (96-108) mmol/L Carbon Dioxide (22-29) mmol/L Anion Gap (12-20) BUN (9-16) mg/dL Creatinine (0.5-1.4) mg/dL Estim Creat Clear Calc Estimated GFR Random Glucose (60-115) mg/dL Calcium (8.4-10.2) mg/dL Troponin I High Sens (<3.5-35.0) ng/L Digoxin 2.4 H* (0.8-2.0) ng/mL S. pyogenes GrpA KAYLYN Negative (Negative) Independent Interpretation I performed an independent interpretation of an: EKG Interpretation: Atrial flutter with 4 is to 1 av conduction block nonspecific ST-T changes no acute ischemia Discharge Plan Discharge Clinical Impression: Atrial flutter, Diabetes mellitus with hyperglycemia Patient Disposition: Home, Self-Care Instructions: Atrial Flutter (ED), Diabetic Hyperglycemia (ED) Additional Instructions: Stop digoxin Follow with physician specialist next week Start taking Humalog injections before meals for better blood sugar control Prescriptions: New insulin lispro [Humalog Terry Raciel U-100] 100 unit/mL insulin pen, half-unit 1 sliding scale dose subcut USEASDIRECTD Qty: 15 1RF Rx Instructions: Sliding scale SQ q.a.c. 0-150 : 0 unit 151-200 : 2 units 201-250: 4 units 251-300: 6 units 301-350: 8 units 351-400: 10 unit and call No Action (DME) FreeStyle Lite Strips Strip Not Applicable alcohol swabs [Alcohol Prep Pads] Pads, Medicated 1 pad TOPICAL TID albuterol sulfate [ProAir HFA] 90 mcg/actuation HFA aerosol inhaler 2 puff PO Q4-6H PRN (Reason: Shortness Of Breath) clotrimazole 1 % cream 1 appl topical BID ipratropium bromide 21 mcg (0.03 %) spray,non-aerosol 2 spray intranasal TID insulin glargine [Lantus Solostar U-100 Insulin] 100 unit/mL (3 mL) insulin pen 25 unit subcut DAILY diclofenac sodium 1 % gel 2 g topical BID PRN (Reason: pain) (DME) pen needle, diabetic [Pentips] 32 gauge x 5/32 needle MISCELLANEOUS QID omeprazole 40 mg capsule,delayed release(DR/EC) 40 mg PO BID rosuvastatin 10 mg tablet 10 mg PO BEDTIME tamsulosin 0.4 mg capsule 0.4 mg PO QPM zolpidem 10 mg tablet 10 mg PO BEDTIME levothyroxine 112 mcg tablet 112 mcg PO QAM clonazepam 1 mg tablet 1 mg PO BID oxycodone-acetaminophen 10-325 mg tablet 1 tab PO Q4H PRN (Reason: severe pain) Rx Instructions: 10 mg every 4 hours furosemide 40 mg tablet 40 mg PO QAM PRN digoxin 125 mcg (0.125 mg) tablet 125 mcg PO DAILY Qty: 30 0RF Eliquis 5 mg tablet 5 mg PO BID Qty: 60 0RF sodium,potassium,mag sulfates [Suprep Bowel Prep Kit] 17.5-3.13-1.6 gram recon soln See Rx Instructions PO .COMPLEX Qty: 354 0RF Rx Instructions: DILUTE; drink full amount early evening before AND next morning at least 2 hr before procedure; follow w 960 mL water PO nitroglycerin 0.4 mg tablet, sublingual 0.4 mg sublingual Q5M PRN (Reason: chest pain) Qty: 20 2RF Rx Instructions: do not exceed 3 doses per episode aspirin [Adult Aspirin Regimen] 81 mg tablet,delayed release (DR/EC) 81 mg PO DAILY carvedilol 12.5 mg tablet 25 mg PO BID amlodipine 10 mg tablet 10 mg PO DAILY Qty: 60 0RF calcitriol 0.25 mcg capsule 0.25 mcg PO 3XW loratadine 10 mg tablet 10 mg PO Q OTHER DAY gabapentin 100 mg capsule 100 mg PO colchicine 0.6 mg tablet 0.6 mg PO BID Interventions: ED Discharge Assessment Last Done: 12/23/22 15:02
[2022-12-23] MEDS: Sodium Zirconium Cyclosilicate 10 GM POWD.PACK PO (14:28)
[2022-12-23 14:43] VITALS: BP 130/71; PULSE 61; RESP 12; TEMP 36.4; O2SAT 99
== END 2022-12-23 15:03 | disposition home or self-care (01) ==
PROVIDERS: Emergency Provider Internal Medicine; PCP Family Medicine
DX: I49.8 Other specified cardiac arrhythmias (principal); R00.2 Palpitations; I25.10 Atherosclerotic heart disease of native coronary artery without angina pectoris; E11.65 Type 2 diabetes mellitus with hyperglycemia; Z20.822 Contact with and (suspected) exposure to COVID-19; Z20.828 Contact with and (suspected) exposure to other viral communicable diseases; Z87.891 Personal history of nicotine dependence; Z79.4 Long term (current) use of insulin; Z79.899 Other long term (current) drug therapy
CPT/HCPCS: 36415; 71045; 80048; 80162; 84484; 85025; 85610; 85730; 87651; 93005; 99283; 99285

== ENCOUNTER → 2022-12-23 10:53 | Outpatient (BNV) | payer MEDICARE, MEDICAID, SELFPAY | PROVIDERS: Emergency Provider Internal Medicine; PCP Family Medicine; Visit Provider Internal Medicine Cardiovascular Disease | DX: I48.92 Unspecified atrial flutter (principal) | CPT/HCPCS: 93010 ==

== ENCOUNTER 2023-01-04 08:12 | Outpatient (AMB) | payer MEDICARE, MEDICAID, SELFPAY ==
[2023-01-04 08:36] VITALS: BP 116/62; PULSE 65; BMI 30.2
--- NOTE | 2023-01-04 08:36 | A.OFFVIS_ITS ---
Intake Vital Signs 01/04/23 08:36 Height 5 ft 6 in Weight 187 lb 6.287 oz BMI 30.2 BP 116/62 Blood Pressure Location Lt brachial Position Sitting Pulse 65 Intake Visit Reasons: follow up per patient Intake Note: Follow-up per patient after ED feeling a little better still tried Trench Digging Machine Operator Required: No Absorption Operator: Absorption Operator Present Accompanied by: Spouse Allergies No Known Allergies Allergy (Verified 12/10/22 13:31) Medication List - Last Reconciled 01/04/23 by Jose Guy MD albuterol sulfate 90 mcg/actuation (ProAir HFA) 2 puffs PO Q4-6H PRN alcohol swabs (Alcohol Prep Pads) 1 pad topical TID amlodipine 10 mg PO DAILY apixaban (Eliquis) 5 mg PO BID aspirin (Adult Aspirin Regimen) 81 mg PO DAILY blood sugar diagnostic (FreeStyle Lite Strips) calcitriol 0.25 mcg PO 3XW carvedilol 25 mg PO BID clonazepam 1 mg PO BID clotrimazole 1% 1 appl topical BID colchicine (gout) 0.6 mg PO BID diclofenac sodium 1% 2 grams topical BID PRN furosemide 40 mg PO QAM PRN gabapentin 100 mg PO insulin glargine (Lantus Solostar U-100 Insulin) 25 units subcut DAILY insulin lispro (Humalog Terry KwikPen (U-100)) 1 sliding scale dose subcut USEASDIRECTD ipratropium bromide 2 sprays intranasal TID levothyroxine 112 mcg PO QAM loratadine 10 mg PO Q OTHER DAY nitroglycerin 0.4 mg sublingual Q5M PRN omeprazole 40 mg PO BID oxycodone-acetaminophen 10-325 mg 1 tab PO Q4H PRN pen needle, diabetic (Pentips) rosuvastatin 10 mg PO BEDTIME sodium,potassium,mag sulfates 17.5-3.13-1.6 gram (Suprep Bowel Prep Kit) DILUTE; drink full amount early evening before AND next morning at least 2 hr before procedure; follow w 960 mL water PO tamsulosin 0.4 mg PO QPM zolpidem 10 mg PO BEDTIME HPI HPI Comments History of Present Illness Details Joshua comes for follow-up. He is accompanied by his . They declined a certified pens and pencils repairer. Patient was started on oral anticoagulation therapy on December 10. He continues to take aspirin therapy since then. He has had no major bleeding issues. Denies any prolonged palpitation irregular heartbeat. Complains of exertional fatigue. Undergoes dialysis Wednesdays. Denies any orthopnea, PND, leg edema. Denies any exertional chest pain. Denies any lightheadedness, syncope. Taking current medications. Reviewing multiple echocardiogram in the past shows at least moderate left atrial enlargement [facility] Medical History (Updated 01/04/23 @ 10:48 by Jose Guy MD) Asthma Atrial flutter CAD (coronary artery disease) Colon adenomas Colon cancer screening CVA (cerebral vascular accident) Diabetes End stage renal disease Essential hypertension Hypertension Non-cardiac chest pain Normocytic anemia Type 2 diabetes mellitus with unspecified complications Surgical History H/O neck surgery History of bladder surgery History of colonoscopy History of nephrectomy Hx of colonoscopy Stented coronary artery Family History Other No family history of coronary artery disease Social History Are you a primary attending ambulatory care to a significant other at home: No Do you presently have visiting nurse or other home services: Yes (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, 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) Alcohol intake: former Patient Tobacco Use Status: Former Tobacco user Quit Date: Tobacco use type: Cigarette service: No Current occupational status: disabled Review of Systems Const Denies chills, Denies fatigue, Denies fever(s), Denies frequent falls, Denies weakness, Denies weight gain and Denies weight loss ENT Denies dizziness Card Denies chest pain, Denies leg edema, Denies lightheadedness, Denies palpitations, Denies dyspnea, Denies dyspnea on exertion, Denies orthopnea and Denies other (loss of consciousness) Resp Denies cough, Denies dyspnea and Denies dyspnea on exertion GI Denies hematochezia and Denies change in stool character Musc Denies abnormal gait, Denies muscle weakness, Denies numbness, Denies radiating pain into limb and Denies tingling Neuro Denies abnormal gait, Denies dizziness, Denies frequent falls, Denies numbness, Denies tingling and Denies weakness Endo Denies fatigue and Denies palpitations Physical Exam Vital Signs: Last Vital Signs Pulse 65 01/04/23 08:36 BP 116/62 01/04/23 08:36 BMI result Body Mass Index 30.2 Const General: cooperative, healthy appearing, comfortable and no acute distress Orientation/consciousness: patient oriented x3 HEENT Head: Yes normal to inspection Eyes Sclerae: sclerae normal Neck Neck: Yes normal visual inspection Carotids: normal carotid upstroke Chest Chest palpation & inspection: normal inspection of the chest Resp Effort & Inspection: normal respiratory effort Auscultation: clear to auscultation bilaterally, no crackles, no rales, no rhonchi and no wheezes Cardio Jugular venous distension: no JVD Rate: regular rate Rhythm: regular rhythm Heart sounds: S1 normal heart sound present, S2 normal heart sound present, no gallops, no murmurs and no rubs Peripheral pulses: Peripheral pulses 2+ throughout GI Inspection: Yes normal to inspection Skin General skin exam: no rashes or lesions noted Neuro General: patient oriented x3 Extrem General: Yes normal to inspection Psych Appearance: grossly normal Mental Status: mental status grossly normal Speech and movement: Normal speech and movement present Office Procedures EKG Details: EKG shows atrial flutter with 4 is to 1 conduction with rightward axis and nonspecific ST T wave changes [id number], Complete Assessment & Plan Assessment & Plan (1) Atrial flutter: Code(s): I48.92 - Unspecified atrial flutter Plan: Patient with persistent atrial flutter, adequately rate control with prior CVA. High risk for recurrent thromboembolic complication. Has tolerated Eliquis therapy well. Continue the same. No need for additional aspirin therapy and should discontinue to reduce bleeding risk. He continues to have symptoms of exertional shortness of breath and fatigue. No overt signs of heart failure. This could be related to loss of AV synchrony. However given his moderate left atrial enlargement he will require antiarrhythmic drug support to help with cardioversion as well as to maintain rhythm. Discussed with him in details about the procedure including benefits, risks and alternatives. He understands and agrees. Will schedule him after loading is completed in 2 weeks time. Importance of oral anticoagulation therapy was discussed. (2) Cardiomyopathy: Code(s): I42.9 - Cardiomyopathy, unspecified Plan: Low normal LV systolic function related to prior myocardial infarction. Clinically with no signs of heart failure. Continue dialysis for volume management. Continue neurohormonal modulation with carvedilol. If nephrology is okay, should consider switching amlodipine to angiotensin receptor antagonist. Signs and symptoms of heart failure were discussed. They understand agree. (3) Pericardial effusion: Code(s): I31.39 - Other pericardial effusion (noninflammatory) Plan: Pericardial effusion status post urgent pericardiocentesis with hemorrhagic fluid question uremic in nature. There was no clear evidence of malignant effusion. Will continue monitor by echocardiogram 6 months time. (4) CAD (coronary artery disease): Code(s): I25.10 - Atherosclerotic heart disease of [place] coronary artery without angina pectoris Plan: CAD with no recurrent symptoms suggestive angina at this point in time. Continue aggressive medical therapy. Currently on dual therapy with carvedilol and amlodipine. No indication for aspirin therapy given that he is already on Eliquis therapy. Discontinue the same. Continue high-intensity statin therapy with target goal LDL less than 70 mg/dL. Continue aggressive management diabetes goal hemoglobin A1c less than 7%. Will follow up in the clinic in 6 weeks time, sooner p.r.n.. Thank you for allowing me to partake in his care Orders: Orders Cardioversion 2 Weeks I48.19 - Other persistent atrial fibrillation, I48.92 - Unspecified atrial flutter Medications: New amiodarone 400 mg PO BID 30 tabs 0RF Changed From carvedilol 25 mg PO BID R07.2 - Precordial pain To carvedilol 12.5 mg PO BID R07.2 - Precordial pain Coding Level of Care Code Est Pt Level 4 (60295) Diagnoses Atrial flutter I48.92 Cardiomyopathy I42.9 Pericardial effusion I31.39 CAD (coronary artery disease) I25.10 CPT Codes EKG - CPT: 85784-[id number], Complete ([id number])
== END 2023-01-04 09:03 | disposition home or self-care (01) ==
PROVIDERS: PCP Family Medicine; Referring Provider Family Medicine; Visit Provider Internal Medicine Cardiovascular Disease
DX: I48.92 Unspecified atrial flutter (principal); I42.9 Cardiomyopathy, unspecified; I31.39 Other pericardial effusion (noninflammatory); I25.10 Atherosclerotic heart disease of native coronary artery without angina pectoris
CPT/HCPCS: 93010; 99214

== ENCOUNTER → 2023-01-04 08:12 | Outpatient (BNVA) | payer MEDICARE, MEDICAID, SELFPAY | PROVIDERS: PCP Family Medicine; Referring Provider Family Medicine; Visit Provider Internal Medicine Cardiovascular Disease | DX: I48.92 Unspecified atrial flutter (principal); I42.9 Cardiomyopathy, unspecified; I31.39 Other pericardial effusion (noninflammatory); I25.10 Atherosclerotic heart disease of native coronary artery without angina pectoris | CPT/HCPCS: 93005; 99212 ==

== ENCOUNTER 2023-01-19 11:50 | Day surgery (SDC) | payer MEDICARE, MEDICAID, SELFPAY ==
[2023-01-17 15:13] VITALS: BMI 30.2
--- NOTE | 2023-01-18 08:45 | HO.ANESPROP2 ---
Documented by User: Xenia Deutsch NP 01/18/23 08:46 HPI - Anesthesia Eval Consult details Narrative: 62yo M for Cardioversion ESRD with HD Eliquis for afib PMFSH Active Problems Active Problems: All Active Problems (Updated 01/04/23 @ 10:48 by Jose Guy MD) CAD (coronary artery disease) (Acute) Type 2 diabetes mellitus with unspecified complications (Acute) Shortness of breath (Acute) CVA (cerebral vascular accident) (Acute) Speech abnormality (Acute) Atrial flutter (Acute) Pericardial effusion (Acute) Angina pectoris (Acute) Essential hypertension (Acute) Inferior myocardial infarction (Acute) Cardiomyopathy (Acute) Colon adenomas (Acute) Chest pain (Acute) Acute kidney injury superimposed on CKD (Acute) Diastolic dysfunction (Acute) Colon cancer screening (Acute) Past Medical History Medical History (Updated 01/19/23 @ 12:43 by Remedios Rivas, RN) Asthma Atrial flutter CAD (coronary artery disease) Colon adenomas Colon cancer screening CVA (cerebral vascular accident) Diabetes End stage renal disease Essential hypertension GERD (gastroesophageal reflux disease) Hx of sleep apnea Hypertension Non-cardiac chest pain Normocytic anemia Type 2 diabetes mellitus with unspecified complications Family History Family History Other No family history of coronary artery disease Surgical History Surgical History H/O neck surgery History of bladder surgery History of colonoscopy History of nephrectomy Hx of colonoscopy Stented coronary artery History of Problems with Anesthesia: No Social History Social History Are you a primary behavioral health care coordinator to a significant other at home: No Do you presently have visiting nurse or other home services: Yes ([employer] 11 day hours, 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) Alcohol intake: former Patient Tobacco Use Status: Former Tobacco user Quit Date: 35 yrs ago Tobacco use type: Cigarette Use of substances other than those prescribed or required for medical reasons: No Are you DNR?: No Advance Directives: No Advance Directives Information Provided: Yes service: No Current occupational status: disabled Meds Allergies Allergy/AdvReac Type Severity Reaction Status Date / Time No Known Allergies Allergy Verified 12/10/22 13:31 Home Medications Medication Instructions Recorded Confirmed Last Taken Type albuterol sulfate 90 mcg/actuation 2 puff PO Q4-6H PRN Shortness Of 11/25/21 01/04/23 Unknown History aerosol inhaler (ProAir HFA) Breath alcohol swabs (Alcohol Prep Pads) 1 pad topical TID 11/25/21 01/04/23 Unknown History blood sugar diagnostic (FreeStyle 11/25/21 01/04/23 Unknown History Lite Strips) clotrimazole 1 % topical cream 1 appl topical BID 11/25/21 01/04/23 Unknown History diclofenac sodium 1 % topical gel 2 g topical BID PRN pain 11/25/21 01/04/23 Unknown History insulin glargine 100 unit/mL (3 25 unit subcut DAILY 11/25/21 01/04/23 02/21/22 History mL) subcutaneous pen (Lantus Solostar U-100 Insulin) ipratropium bromide 21 mcg (0.03 2 spray intranasal TID 11/25/21 01/04/23 Unknown History %) nasal spray pen needle, diabetic 32 gauge x 11/25/21 01/04/23 Unknown History (Pentips) levothyroxine 112 mcg tablet 112 mcg PO QAM 12/16/21 01/04/23 02/23/22 05:30 History omeprazole 40 mg capsule,delayed 40 mg PO BID 12/16/21 01/04/23 02/23/22 05:30 History release rosuvastatin 10 mg tablet 10 mg PO BEDTIME 12/16/21 01/04/23 Unknown History tamsulosin 0.4 mg capsule 0.4 mg PO QPM 12/16/21 01/04/23 Unknown History zolpidem 10 mg tablet 10 mg PO BEDTIME 12/16/21 01/04/23 Unknown History clonazepam 1 mg tablet 1 mg PO BID 03/31/22 01/04/23 Unknown History oxycodone-acetaminophen 10 mg-325 1 tab PO Q4H PRN severe pain 03/31/22 01/04/23 Unknown History mg tablet calcitriol 0.25 mcg capsule 0.25 mcg PO 3XW 11/02/22 01/04/23 Unknown History colchicine (gout) 0.6 mg tablet 0.6 mg PO BID 11/02/22 01/04/23 Unknown History furosemide 40 mg tablet 40 mg PO QAM PRN 11/02/22 01/04/23 Unknown History gabapentin 100 mg capsule 100 mg PO 11/02/22 01/04/23 Unknown History loratadine 10 mg tablet 10 mg PO Q OTHER DAY 11/02/22 01/04/23 Unknown History Exam Exam Date and Time: January 18, 2023 0845 Height,Weight and Vital Signs: Height 5 ft 6 in Weight 84.822 kg Narrative Narrative: ECHO 07/2022 Conclusions: - 1. Small to moderate pericardial effusion, more prominent and? loculated near LV? 2. Low normal LV systolic function ? 3. Normal RV systolic pressure ? ? Assessment and Plan Assessment Anesthesia Assessment: Chart Reviewed Final Anesthetic Review History of Problems with Anesthesia: No Documented by User: Jane Denton MD 01/19/23 13:03 [facility] Past Medical History Medical History (Updated 01/19/23 @ 12:43 by Remedios Rivas, RN) Asthma Atrial flutter CAD (coronary artery disease) Colon adenomas Colon cancer screening CVA (cerebral vascular accident) Diabetes End stage renal disease Essential hypertension GERD (gastroesophageal reflux disease) Hx of sleep apnea Hypertension Non-cardiac chest pain Normocytic anemia Type 2 diabetes mellitus with unspecified complications Family History Family History Other No family history of coronary artery disease Family history of problems with anesthesia: No Surgical History Surgical History H/O neck surgery History of bladder surgery History of colonoscopy History of nephrectomy Hx of colonoscopy Stented coronary artery Social History Social History Are you a primary behavioral health care coordinator to a significant other at home: No Do you presently have visiting nurse or other home services: Yes ([employer] 11 day hours, 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) Alcohol intake: former Patient Tobacco Use Status: Former Tobacco user Quit Date: 35 yrs ago Tobacco use type: Cigarette Use of substances other than those prescribed or required for medical reasons: No Are you DNR?: No Advance Directives: No Advance Directives Information Provided: Yes service: No Current occupational status: disabled Meds Allergies Allergy/AdvReac Type Severity Reaction Status Date / Time No Known Allergies Allergy Verified 12/10/22 13:31 Home Medications Medication Instructions Recorded Confirmed Last Taken Type albuterol sulfate 90 mcg/actuation 2 puff PO Q4-6H PRN Shortness Of 11/25/21 01/04/23 Unknown History aerosol inhaler (ProAir HFA) Breath alcohol swabs (Alcohol Prep Pads) 1 pad topical TID 11/25/21 01/04/23 Unknown History blood sugar diagnostic (FreeStyle 11/25/21 01/04/23 Unknown History Lite Strips) clotrimazole 1 % topical cream 1 appl topical BID 11/25/21 01/04/23 Unknown History diclofenac sodium 1 % topical gel 2 g topical BID PRN pain 11/25/21 01/04/23 Unknown History insulin glargine 100 unit/mL (3 25 unit subcut DAILY 11/25/21 01/04/23 02/21/22 History mL) subcutaneous pen (Lantus Solostar U-100 Insulin) ipratropium bromide 21 mcg (0.03 2 spray intranasal TID 11/25/21 01/04/23 Unknown History %) nasal spray pen needle, diabetic 32 gauge x 11/25/21 01/04/23 Unknown History (Pentips) levothyroxine 112 mcg tablet 112 mcg PO QAM 12/16/21 01/04/23 02/23/22 05:30 History omeprazole 40 mg capsule,delayed 40 mg PO BID 12/16/21 01/04/23 02/23/22 05:30 History release rosuvastatin 10 mg tablet 10 mg PO BEDTIME 12/16/21 01/04/23 Unknown History tamsulosin 0.4 mg capsule 0.4 mg PO QPM 12/16/21 01/04/23 Unknown History zolpidem 10 mg tablet 10 mg PO BEDTIME 12/16/21 01/04/23 Unknown History clonazepam 1 mg tablet 1 mg PO BID 03/31/22 01/04/23 Unknown History oxycodone-acetaminophen 10 mg-325 1 tab PO Q4H PRN severe pain 03/31/22 01/04/23 Unknown History mg tablet calcitriol 0.25 mcg capsule 0.25 mcg PO 3XW 11/02/22 01/04/23 Unknown History colchicine (gout) 0.6 mg tablet 0.6 mg PO BID 11/02/22 01/04/23 Unknown History furosemide 40 mg tablet 40 mg PO QAM PRN 11/02/22 01/04/23 Unknown History gabapentin 100 mg capsule 100 mg PO 11/02/22 01/04/23 Unknown History loratadine 10 mg tablet 10 mg PO Q OTHER DAY 11/02/22 01/04/23 Unknown History Exam Airway Mallampati Class: II TM Dist: >3cm Neck ROM: Full Heart: rrr Lungs: cta Assessment and Plan Assessment Anesthesia Assessment: Anesthesia Plan Discussed Final Anesthetic Review Family History of Problems with Anesthesia: No NPO: Yes ASA Class: III Final Preanesthetic Review: No Changes in Pt Med Stat, Meds/Allgs Chart Reviewed and Consent Obtained/Reviewed Patient Risk: Intermediate Procedure Risk: Intermediate Anesthetic Plan Anesthetic Plan: GA Disposition: Standard PACU
[2023-01-19] VITALS (7 sets, daily range): BP systolic 109–132; BP diastolic 59–75; PULSE 57–64; RESP 12–17; TEMP 35.9–36.4; O2SAT 98–100; BMI 29.9
--- OUTSIDE RECORDS SUMMARY | 2023-01-19 11:53 | XMS_ITS | Continuity of Care Document ---
Author Name Unknown Organization [facility] Address [address] [place] [address]- Care Team Providers Care Laboratory Veterinarian Name Role Phone Macie Link DO Primary Care Physician Encounter [facility] Date(s): 12/16/22 - 01/15/23 [facility] [address] [place] [address]- Attending Physician: Debbie Pope Admitting Physician: AdmtrDebbie Referring Physician: Admtr, Ar8 [...] Cabrera rded influenza virus vaccine, inactivated 02/14/16 Acbrera rded influenza virus vaccine, inactivated 02/28/15 Cabrera [...] PAIN SCALE) Start Date: 09/06/21 Status: Ordered Albuterol 0.083% inhalation codi Inhalation, Every 4 hours, PRN, not sure of dosage,, Refills 0, Maintenance, Wheezing/Shortness of Breath, 01/14/23 10:10:00 EDT Start Date: 01/14/23 Status: Ordered amLODIPine 10 mg oral tablet 10 mg, 1, tablet, By Mouth, Daily, # 30 tablet, Refills 0, Tot. Refills 0, Maintenance, 11/27/21 15:04:00 EDT, Route to Pharmacy Electronically, [facility] 3, Partial fill upon patient request if the prescription is for a schedule II opioi... Start Date: 11/27/21 Status: Ordered aspirin 81 mg oral delayed release tablet 81 mg, 1, tablet, By Mouth, Daily, # 30 tablet, Refills 0, Tot. Refills 0, Maintenance, 11/27/21 15:02:00 EDT, Route to Pharmacy Electronically, [facility] 3, Partial fill upon patient [...] Maintenance, 07/25/2313:26:00 EST, Route to Pharmacy Electronically, [facility], Partial fill upon patientrequest if the prescription is for a schedule II op... Start Date: 07/25/22 Status: Ordered Eliquis 5 mg oral tablet 1 tablet = 5 mg, By Mouth, 2 times a day, not sure of dosage, 0 Refills, Maintenance, 01/14/23 10:02:00 EDT, Partial fill upon patient request if the prescription is for a schedule II opioid drug. Start Date: 01/14/23 Status: Ordered hydrALAZINE 25 mg oral tablet 75 mg, 3, tablet, By Mouth, 3 times a day, # 270 tablet, Refills 0, Tot. Refills 0, Maintenance, 11/10/21 12:44:00 EDT, Route to Pharmacy Electronically, [facility], Partial fill upon patient request if the prescription is for a schedule... Start Date: 11/10/21 Status: Ordered Lantus 100 u/ml subcutaneous solution = 25 units, Subcutaneous Infusion, Daily, 0 Refills, Maintenance, 01/14/23 10:17:00 EDT, Partial fill upon patient request if the prescription is for a schedule II opioid drug. Start Date: 01/14/23 Status: Ordered levothyroxine 0.112 mg oral tablet TAKE 1 TABLET BY MOUTH EVERY MORNING ON AN EMPTY STOMACH Start Date: 09/06/21 Status: Ordered omeprazole 40 mg oral enteric coated capsule 1 capsule = 40 mg, By Mouth, 2 times a day, TAKE 1 CAPSULE BY MOUTH EVERY MORNING BEFORE A MEAL, # 60 capsule, 0 Refills, Maintenance, 09/06/21 14:55:00 EDT, Suspension, [facility], Partial fill upon patient [...] pain Confirmed Active Sleep apnea Confirmed Active Cardiology * Event Display: Cardiology Office Note, Non- Authored Date: Patient Care team information Care Team Personnel Name: Isabela Holly Position: [facility] RN Member Role: Primary Care Nurse Name: Subha Krishna RN Position: [facility] RN Member Role: Primary Care Nurse Name: Renetta Soriano RN Position: [facility] AMB Nurse Member Role: Primary Care Nurse Name: Riana Puentes Position: [facility] Outreach Member Role: Lifetime Consulting Physician Name: Zenaida Last RN Position: [facility] Nurse Member Role: Primary Care Nurse Name: Shelly Nguyen RN Position: [facility] RN Member Role: Primary Care Nurse Name: Lorena Freeman NP Position: [facility] Associate Professional Member Role: Lifetime Consulting Provider Address: Address: [address] [place], [place] [address] [place], [place] [address] Name: Nilsa Gupta RN Position: [facility] AMB Nurse Member Role: Primary Care Nurse Name: Raphael Turner MD Position: [facility] Renal MD Member Role: Lifetime Consulting Physician Address: Address: [address] [place], [place] [address] [place], [place] [address] Name: Macie Link DO Position: [facility] Outreach Member Role: PCP Address: Address: [address] [place] [address] Name: Dinh Luo RN Position: [facility] RN Member Role: Primary Care Nurse Name: Britney Burch RN Position: [facility] RN Member Role: Primary Care Nurse Name: Eddie Lala Position: [facility] TA Member Role: Lifetime Consulting Physician Name: Mert Cowan Position: [facility] Associate Professional Member Role: Lifetime Consulting Provider Address: Address: [address] [place] [address] Name: Xenia Bains RN Position: [facility] RN Member Role: Primary Care Nurse Name: Jeffery Diaz MD Position: [facility] Renal MD Member Role: Lifetime Consulting Physician Address: Address: [address] [place] [address] [address] [facility] [place] [address]- Name: Susy Gavin RN Position: [facility] RN Member Role: Primary Care Nurse Name: Jayme Nevarez RN Position: [facility] RN Member Role: Primary Care Nurse Name: Jane Gilmore RN Position: [facility] Onco RN Member Role: Primary Care Nurse Name: Jacki Page RN, I Position: [facility] RN Member Role: Primary Care Nurse Care Team Related Persons Name: PUSHPA OCHOA Address: home [address] [place] [address] Name: MARGARITA TURNER Address: home [address] [address]
--- OUTSIDE RECORDS SUMMARY | 2023-01-19 11:53 | XMS_ITS | Continuity of Care Document ---
Author Name Unknown Organization [facility] Address [address] [place] [address]- Care Team Providers Care Bearingizer Name Role Phone Macie Link DO Primary Care Physician [phone] Encounter [facility] Date(s): 09/17/22 - 01/15/23 [facility] [address] [place] [address]- Attending Physician: Shaheen Wooten MD, Javon Maria Admitting Physician: Javon Jamison Jr, MD Referring Physician: Macie Link DO Allergies, [...] 11/27/21 15:04:00 EDT, Route to Pharmacy Electronically, [facility] 3, Partial fill upon patient request if the prescription is for a schedule II opioi... Start Date: 11/27/21 Status: Ordered aspirin 81 mg oral delayed release tablet 81 mg, 1, tablet, By Mouth, Daily, # 30 tablet, Refills 0, Tot. Refills 0, Maintenance, 11/27/21 15:02:00 EDT, Route to Pharmacy Electronically, [facility], Partial fill upon [...] Maintenance, 07/25/2313:26:00 EST, Route to Pharmacy Electronically, [facility], Partial fill upon patientrequest [...] Care Team Personnel Name: Isabela Holly Position: [facility] RN Member Role: Primary Care Nurse Name: Subha Krishna RN Position: [facility] RN Member Role: Primary Care Nurse Name: Renetta Soriano RN Position: [facility] Nurse Member Role: Primary Care Nurse Name: Riana Puentes Position: [facility] Outreach Member Role: Lifetime Consulting Physician Name: Zenaida Last RN Position: [facility] Nurse Member Role: Primary Care Nurse Name: Shelly Nguyen RN Position: [facility] RN Member Role: Primary Care Nurse Name: Lorena Freeman NP Position: [facility] Associate Professional Member Role: Lifetime Consulting Provider Address: Address: [address] [place] [address] [address] [facility] [place], [place] [address] Name: Nilsa Gupta RN Position: [facility] AMB Nurse Member Role: Primary Care Nurse Name: Raphael Turner MD Position: [facility] Renal MD Member Role: Lifetime Consulting Physician Address: Address: [address] [place] [address] [address] [facility] [place] [address]- Name: Macie Link DO Position: [facility] Outreach Member Role: PCP Address: Address: [address] [place], [place] [address] Name: Dinh Luo RN Position: [facility] RN Member Role: Primary Care Nurse Name: Britney Burch RN Position: [facility] RN Member Role: Primary Care Nurse Name: Eddie Lala Position: [facility] TA Member Role: Lifetime Consulting Physician Name: Mert Cowan Position: [facility] Associate Professional Member Role: Lifetime Consulting Provider Address: Address: [address] [place] [address] Name: Xenia Bains RN Position: [facility] RN Member Role: Primary Care Nurse Name: Jeffery Diaz MD Position: [facility] Renal MD Member Role: Lifetime Consulting Physician Address: Address: [address] [place] [address] [address] [facility] [place] [address]- Name: Susy Gavin RN Position: [facility] RN Member Role: Primary Care Nurse Name: Jayme Nevarez RN Position: [facility] RN Member Role: Primary Care Nurse Name: Jane Gilmore RN Position: [facility] Onco RN Member Role: Primary Care Nurse Name: Jacki Page RN, I Position: [facility] RN Member Role: Primary Care Nurse Care Team Related Persons Name: PUSHPA OCHOA Address: home [address] [place] [address] Name: MARGARITA TURNER Address: home [address] [address]
--- OUTSIDE RECORDS SUMMARY | 2023-01-19 11:53 | XMS_ITS | Continuity of Care Document ---
Author Name Unknown Organization [facility] ter Address [address] [place] [address]- Care Team Providers Care Customer Service Agent Name Role Phone Macie Link DO Primary Care Physician Encounter [facility] Date(s): 06/07/22 - 12/26/[address] [address] Attending Physician: Javon Jamison Jr, MD Admitting Physician: Javon Jamison Jr, MD Allergies, Adverse Reactions, Alerts No Known [...] 11/27/21 15:04:00 EDT, Route [facility] Pharmacy [facility], Partial fill upon patient request if the prescription is for a schedule II opioi... Start Date: 11/27/21 Status: Ordered aspirin 81 mg oral delayed release tablet 81 mg, 1, tablet, By Mouth, Daily, # 30 tablet, Refills 0, Tot. Refills 0, Maintenance, 11/27/21 15:02:00 EDT, Route to Pharmacy Electronically, [facility], Partial fill upon patient request if [...] Maintenance, 07/25/2313:26:00 EST, Route to Pharmacy Electronically, [facility], Partial fill upon patientrequest if the prescription is for a schedule II op... Start Date: 07/25/22 Status: Ordered hydrALAZINE 25 mg oral tablet 75 mg, 3, tablet, By Mouth, 3 times a day, # 270 tablet, Refills 0, Tot. Refills 0, Maintenance, 11/10/21 12:44:00 EDT, Route to Pharmacy Electronically, [facility], Partial fill upon patient [...] 0 Refills, Maintenance, 09/06/21 14:55:00 EDT, Suspension, [facility], Partial fill upon patient [...] Care Team Personnel Name: Isabela Holly Position: [facility] RN Member Role: Primary Care Nurse Name: Subha Krishna RN Position: [facility] RN Member Role: Primary Care Nurse Name: Renetta Soriano RN Position: [facility] AMB Nurse Member Role: Primary Care Nurse Name: Riana Puentes Position: [facility] Outreach Member Role: Lifetime Consulting Physician Name: Zenaida Last RN Position: [facility] AMB Nurse Member Role: Primary Care Nurse Name: Shelly Nguyen RN Position: [facility] RN Member Role: Primary Care Nurse Name: Lorena Freeman NP Position: [facility] Associate Professional Member Role: Lifetime Consulting Provider Address: Address: [address] [place], [place] [address] [place] [address]- Name: Nilsa Gupta RN Position: [facility] RN Member Role: Primary Care Nurse Name: Raphael Turner MD Position: [facility] Renal MD Member Role: Lifetime Consulting Physician Address: Address: [address] [place], [place] [address] [place] [address]- Name: Macie Link DO Position: [facility] Outreach Member Role: PCP Address: Address: [address] [place] [address]- Name: Dinh Luo RN Position: [facility] RN Member Role: Primary Care Nurse Name: Britney Burch RN Position: [facility] RN Member Role: Primary Care Nurse Name: Eddie Lala Position: [facility] TA Member Role: Lifetime Consulting Physician Name: Mert Cowan Position: [facility] Associate Professional Member Role: Lifetime Consulting Provider Address: Address: [address] [place] [address]- Name: Xenia Bains RN Position: [facility] RN Member Role: Primary Care Nurse Name: Jeffery Diaz MD Position: [facility] Renal MD Member Role: Lifetime Consulting Physician Address: Address: [address] [place] [address] [address] [facility] [place] [place] [address]- [place] Name: Susy Gavin RN Position: [facility] RN Member Role: Primary Care Nurse Name: Jayme Nevarez RN Position: [facility] RN Member Role: Primary Care Nurse Name: Jane Gilmore RN Position: [facility] Onco RN Member Role: Primary Care Nurse Name: Jacki Page RN, I Position: [facility] RN Member Role: Primary Care Nurse Care Team Related Persons Name: PUSHPA OCHOA Address: [address] [place] [address] Name: JOHNNY MARGARITA Address: home [address] [address]
--- OUTSIDE RECORDS SUMMARY | 2023-01-19 11:54 | XMS_ITS | Continuity of Care Document ---
Author Name Unknown Organization [facility] Address [address] [place] [id number]- Care Team Providers Care Finishing Inspector Name Role Phone Macie Link DO Primary Care Physician [phone] Encounter [facility] Date(s): 12/13/22 - 01/12/23 [facility] [address] [place] [id number]- [place] Allergies, Adverse Reactions, Alerts No Known [...] 11/27/21 15:04:00 EDT, Route to Pharmacy Electronically, [facility], Partial fill upon patient request if the prescription is for a schedule II opioi... Start Date: 11/27/21 Status: Ordered aspirin 81 mg oral delayed release tablet 81 mg, 1, tablet, By Mouth, Daily, # 30 tablet, Refills 0, Tot. Refills 0, Maintenance, 11/27/21 15:02:00 EDT, Route to Pharmacy Electronically, [facility], Partial fill upon patient request [...] Maintenance, 07/25/2313:26:00 EST, Route to Pharmacy Electronically, [facility], Partial fill upon patientrequest if the prescription is for a schedule II op... Start Date: 07/25/22 Status: Ordered hydrALAZINE 25 mg oral tablet 75 mg, 3, tablet, By Mouth, 3 times a day, # 270 tablet, Refills 0, Tot. Refills 0, Maintenance, 11/10/21 12:44:00 EDT, Route to Pharmacy Electronically, [facility], Partial fill upon patient request [...] 14:55:00 EDT, Suspension, [facility], Partial fill upon patient request [...] Care Team Personnel Name: Isabela Holly Position: [facility] RN Member Role: Primary Care Nurse Name: Subha Krishna RN Position: [facility] RN Member Role: Primary Care Nurse Name: Renetta Soriano RN Position: [facility] AMB Nurse Member Role: Primary Care Nurse Name: Riana Puentes Position: [facility] Outreach Member Role: Lifetime Consulting Physician Name: Zenaida Last RN Position: [facility] AMB Nurse Member Role: Primary Care Nurse Name: Shelly Nguyen RN Position: [facility] RN Member Role: Primary Care Nurse Name: Lorena Freeman NP Position: [facility] Associate Professional Member Role: Lifetime Consulting Provider Address: Address: [address] [place], [place] [address] [place] [address]- Name: Nilsa Gupta RN Position: [facility] AMB Nurse Member Role: Primary Care Nurse Name: Raphael Turner MD Position: [facility] Renal MD Member Role: Lifetime Consulting Physician Address: Address: [address] [place], [place] [address] [place] [address]- Name: Macie Link DO Position: [facility] Outreach Member Role: PCP Address: Address: [address] [place] [id number]- Name: Dinh Luo RN Position: [facility] RN Member Role: Primary Care Nurse Name: Britney Bruch RN Position: [facility] RN Member Role: Primary Care Nurse Name: Eddie Lala Position: [facility] TA Member Role: Lifetime Consulting Physician Name: Mert Cowan Position: [facility] Associate Professional Member Role: Lifetime Consulting Provider Address: Address: [address] [place] [address]- Name: Xenia Bains RN Position: [facility] RN Member Role: Primary Care Nurse Name: Jeffery Diaz MD Position: [facility] Renal MD Member Role: Lifetime Consulting Physician Address: Address: [address] [place] [address] [address] [facility] [place] [address]- Name: Susy Gavin RN Position: [facility] RN Member Role: Primary Care Nurse Name: Jayme Nevarez RN Position: [facility] RN Member Role: Primary Care Nurse Name: Jane Gilmore RN Position: [facility] Onco RN Member Role: Primary Care Nurse Name: Jacki Page RN, I Position: [facility] RN Member Role: Primary Care Nurse Care Team Related Persons Name: PUSHPA OCHOA Address: [address] [place] [address] Name: MARGARITA TURNER Address: home [address] [place] [id number]
--- NOTE | 2023-01-19 11:58 | MHC.SHP ---
Pre-Procedural Eval Section A Date of Service: 01/19/23 The patient is an INPATIENT: No Changes since office visit: Yes Patient answered all questions; No Cold of Flu in the past 2 weeks, No New Medical Problems and No Changes in Medication The History & Physical has been completed within 30 days and I have reviewed it.: Yes Section B Chief Complaint: afib Allergies: Allergies Allergy/AdvReac Type Severity Reaction Status Date / Time No Known Allergies Allergy Verified 12/10/22 13:31 Plan I have reviewed the history and physical and performed a pertinent physical examination on my patient. No changes have occurred unless specified. Time Spent With Patient Time: Total time managing care of this patient today ____ minutes.
[2023-01-19 12:58] LABS: Glucose, Whole Blood 104 mg/dL (60-115)
[2023-01-19] MEDS: 0.9 % Sodium Chloride 1,000 ML 50 ML IVCONT (13:09)
--- NOTE | 2023-01-19 13:29 | ECG_ITS ---
Test Reason : Post Cardioversion Blood Pressure : / mmHG Vent. Rate : 063 BPM Atrial Rate : 063 BPM P-R Int : 284 ms QRS Dur : 098 ms QT Int : 462 ms P-R-T Axes : 044 030 081 degrees QTc Int : 472 ms Sinus rhythm with 1st degree A-V block Nonspecific ST abnormality Abnormal ECG When compared with ECG of 23-DEC-2022 11:00, Sinus rhythm has replaced Atrial flutter Referred By: Jose Guy Electronically Signed By:NAPOLEON PABLO
--- NOTE | 2023-01-19 13:37 | HO.CARDIVERS ---
Cardioversion Procedure Note Cardioversion Date of Procedure: Today Ordering Provider: Myself Performing Provider: Myself Indication for Procedure: Persistent symptomatic atrial flutter Pre-Op Diagnosis: Same Post-Op Diagnosis: Normal sinus rhythm Performed with Transesophageal Echo: No History: See my office note Consent: Verbal and Written consent was obtained from the patient before starting and after confirming oral anticoagulation use. The patient was made aware of the risk of synchronized cardioversion including benefits and alternatives Procedure: After consent obtained, cardioversion pads were attached and the patient was sedated by the anesthesia team. Once adequate sedation achieved, patient was delivered 200 joules of biphasic synchronized energy in anteroposterior configuration Complications: None Impression: Successful conversion to sinus rhythm Recommendations: 1. 12 lead EKG 2. Continue amiodarone and reduce to 200 mg daily 3. Continue full oral anticoagulation 4. Follow up in the clinic in 4 weeks
== END 2023-01-19 14:25 | disposition home or self-care (01) ==
PROVIDERS: PCP Family Medicine; Visit Provider Internal Medicine Cardiovascular Disease
PROC: 5A2204Z Restoration of Cardiac Rhythm, Single (ICD-10-PCS; principal; 2023-01-19 14:30)
DX: I48.19 Other persistent atrial fibrillation (principal); E11.9 Type 2 diabetes mellitus without complications; I10 Essential (primary) hypertension; Z79.01 Long term (current) use of anticoagulants; Z79.4 Long term (current) use of insulin; Z79.82 Long term (current) use of aspirin; Z79.899 Other long term (current) drug therapy; Z87.891 Personal history of nicotine dependence
CPT/HCPCS: 82947; 92960; 93005

== ENCOUNTER → 2023-01-19 11:50 | Outpatient (BNV) | payer MEDICARE, MEDICAID, SELFPAY | PROVIDERS: PCP Family Medicine; Visit Provider Internal Medicine Cardiovascular Disease | DX: I48.92 Unspecified atrial flutter (principal) | CPT/HCPCS: 92960 ==

== ENCOUNTER 2023-02-21 14:00 | Outpatient (AMB) | payer OTHER, MEDICAID, SELFPAY ==
[2023-02-21 14:06] VITALS: BP 132/60; PULSE 66; BMI 29.8
--- NOTE | 2023-02-21 14:06 | A.OFFVIS_ITS ---
Intake Vital Signs 02/21/23 14:06 Height 5 ft 6 in Weight 184 lb 11.958 oz BMI 29.8 BP 132/60 Blood Pressure Location Rt brachial Position Sitting Pulse 66 Pulse Source Monitor Intake Visit Reasons: Follow up post cardioversion Intake Note: f/u cardioversion Hydrometer Finisher Required: No Allergies No Known Allergies Allergy (Verified 02/21/23 14:16) Medication List - Last Reconciled 02/21/23 by SHANTELLE Mesa albuterol sulfate 90 mcg/actuation (ProAir HFA) 2 puffs PO Q4-6H PRN alcohol swabs (Alcohol Prep Pads) 1 pad topical TID amiodarone 200 mg PO .daily amlodipine 10 mg PO DAILY apixaban (Eliquis) 5 mg PO BID blood sugar diagnostic (FreeStyle Lite Strips) calcitriol 0.25 mcg PO 3XW carvedilol 12.5 mg PO BID 30 days clonazepam 1 mg PO BID clotrimazole 1% 1 appl topical BID colchicine (gout) 0.6 mg PO BID diclofenac sodium 1% 2 grams topical BID PRN furosemide 40 mg PO QAM PRN gabapentin 100 mg PO insulin glargine (Lantus Solostar U-100 Insulin) 25 units subcut DAILY insulin lispro (Humalog Terry KwikPen (U-100)) 1 sliding scale dose subcut USEASDIRECTD ipratropium bromide 2 sprays intranasal TID levothyroxine 112 mcg PO QAM loratadine 10 mg PO Q OTHER DAY nitroglycerin 0.4 mg sublingual Q5M PRN omeprazole 40 mg PO BID oxycodone-acetaminophen 10-325 mg 1 tab PO Q4H PRN pen needle, diabetic (P[place]ips) rosuvastatin 10 mg PO BEDTIME sodium,potassium,mag sulfates 17.5-3.13-1.6 gram (Suprep Bowel Prep Kit) DILUTE; drink full amount early evening before AND next morning at least 2 hr before procedure; follow w 960 mL water PO tamsulosin 0.4 mg PO QPM zolpidem 10 mg PO BEDTIME HPI Follow up post cardioversion HPI Details Joshua is a 62-year-old male with past medical history of hypertension, hyperlipidemia, diabetes, CAD, cardiomyopathy, pericardial effusion, CVA, atrial flutter who recently underwent a cardioversion and now presents for follow-up. Today he reports that he has been feeling better since his cardioversion. He notices less fatigue, less shortness of breath with activity and he no longer feels heart palpitations. No chest discomfort at rest or with activity. No PND, orthopnea or edema. He tolerates normal ADLs without concerning difficulty. No bleeding issues reported. His significant other is present. [facility] Medical History (Updated 02/21/23 @ 18:13 by EDGARDO MesaC) Hx of sleep apnea GERD (gastroesophageal reflux disease) Atrial flutter Colon adenomas Asthma Colon cancer screening End stage renal disease Type 2 diabetes mellitus with unspecified complications Essential hypertension Normocytic anemia Non-cardiac chest pain CAD (coronary artery disease) CVA (cerebral vascular accident) Hypertension Diabetes Surgical History History of colonoscopy H/O neck surgery Hx of colonoscopy History of bladder surgery Stented coronary artery History of nephrectomy Family History Other No family history of coronary artery disease Social History Are you a primary healthcare prof to a significant other at home: No Do you presently have visiting nurse or other home services: Yes ([employer] 11 day hours, 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) Alcohol intake: former Patient Tobacco Use Status: Former Tobacco user Quit Date: 35 yrs ago Tobacco use type: Cigarette service: No Current occupational status: disabled Review of Systems Const All systems reviewed & are unremarkable except as noted in HPI and below ENT Denies dizziness Card Denies chest pain, Denies chest pain at rest, Denies chest pain with activity, Denies rapid heart rate, Denies pedal edema, Denies edema, Denies leg edema, Denies lightheadedness, Denies palpitations, Denies dyspnea, Denies dyspnea on exertion and Denies orthopnea Resp Denies cough, Denies dyspnea and Denies dyspnea on exertion GI Denies hematochezia and Denies change in stool character Musc Denies abnormal gait, Denies limited range of motion, Denies muscle cramps, Denies muscle weakness, Denies numbness, Denies radiating pain into limb, Denies stiffness and Denies tingling Neuro Denies abnormal gait, Denies dizziness, Denies numbness and Denies tingling Endo Denies palpitations Physical Exam Vital Signs: Last Vital Signs BP 132/60 02/21/23 14:06 BMI result Body Mass Index 29.8 Const General: cooperative, healthy appearing, comfortable and no acute distress Orientation/consciousness: patient oriented x3 Neck Neck: Yes normal visual inspection and Yes no JVD Resp Effort & Inspection: normal respiratory effort Auscultation: clear to auscultation bilaterally, no crackles, no rales, no rhonchi and no wheezes Cardio Jugular venous distension: no JVD Rate: regular rate Rhythm: regular rhythm Heart sounds: S1 normal heart sound present, S2 normal heart sound present, no gallops, no murmurs and no rubs Peripheral pulses: Peripheral pulses 2+ throughout GI Inspection: Yes normal to inspection Neuro General: patient oriented x3 Extrem General: Yes normal to inspection, No no pedal edema and No calf tenderness Psych Appearance: grossly normal Mental Status: mental status grossly normal Speech and movement: Normal speech and movement present Office Procedures EKG Details: Today, read by me, normal sinus rhythm, right axis deviation, nonspecific T-wave abnormality, artifact present, rate 66, QTC 431 milliseconds [id number], Complete Assessment & Plan Assessment & Plan (1) Atrial flutter: Code(s): I48.92 - Unspecified atrial flutter Plan: History of atrial flutter which had been persistent. He is on carvedilol for heart rate control then he was started on amiodarone load and maintenance dose for rhythm control. He is on Eliquis for anticoagulation which he is tolerating well. He underwent a cardioversion on 01/19/2023 with successful conversion to sinus rhythm. An outpatient Holter has been ordered however not completed as of yet. An EKG done today is showing sinus rhythm, heart rate 66, QTC 431 milliseconds. He reports improvement in his fatigue, breathing and resolution of palpitations since the cardioversion procedure. Will have him obtain the Holter monitor as previously ordered. Continue current med management. Cardiology follow-up in 3 months, sooner if needed. (2) Pericardial effusion: Code(s): I31.39 - Other pericardial effusion (noninflammatory) Plan: History of pericardial effusion. Last echo 08/08/2022 showed EF 50-55%, small to moderate effusion more prominent and loculated near the LV. He is reporting improvement in his breathing and no new chest symptoms. He has a repeat echocardiogram planned for April 2023. Cardiology office visit will be after that echo. (3) CAD (coronary artery disease): Code(s): I25.10 - Atherosclerotic heart disease of [place] coronary artery without angina pectoris Qualifiers: Coronary Disease-Associated Artery/Lesion type: [place] artery [place] vs. transplanted heart: [place] heart Associated angina: without angina Qualified Code(s): I25.10 - Atherosclerotic heart disease of [place] coronary artery without angina pectoris Plan: Stable at present with no reports of anginal sounding symptoms. Continue current med management with carvedilol, rosuvastatin. He is not on aspirin as he is on Eliquis. (4) Cardiomyopathy: Code(s): I42.9 - Cardiomyopathy, unspecified Qualifiers: Cardiomyopathy type: unspecified Qualified Code(s): I42.9 - Cardiomyopathy, unspecified Plan: Mildly reduced EF on last echocardiogram. Repeat echo planned for 04/2023. No clinical signs of heart failure on examination (5) Essential hypertension: Code(s): I10 - Essential (primary) hypertension Plan: Well controlled at present time. No medication changes made Coding Level of Care Code Est Pt Level 4 (21177) Diagnoses Atrial flutter I48.92 Pericardial effusion I31.39 Coronary artery disease involving [place] coronary artery of [place] heart without angina pectoris I25.10 Coronary Disease-Associated Artery/Lesion type: [place] artery [place] vs. transplanted heart: [place] heart Associated angina: without angina Cardiomyopathy, unspecified type I42.9 Cardiomyopathy type: unspecified Essential hypertension I10 CPT Codes EKG - CPT: 09823-[id number], Complete ([id number]) Time Spent (min) 26
== END 2023-02-21 14:42 | disposition home or self-care (01) ==
PROVIDERS: PCP Family Medicine; Visit Provider Nurse Practitioner Family
DX: I48.92 Unspecified atrial flutter (principal); I31.39 Other pericardial effusion (noninflammatory); I25.10 Atherosclerotic heart disease of native coronary artery without angina pectoris; I42.9 Cardiomyopathy, unspecified; I10 Essential (primary) hypertension
CPT/HCPCS: 93010; 99214

== ENCOUNTER → 2023-02-21 14:00 | Outpatient (BNVA) | payer OTHER, MEDICAID, SELFPAY | PROVIDERS: PCP Family Medicine; Visit Provider Nurse Practitioner Family | DX: I48.92 Unspecified atrial flutter (principal); I31.39 Other pericardial effusion (noninflammatory); I25.10 Atherosclerotic heart disease of native coronary artery without angina pectoris; I42.9 Cardiomyopathy, unspecified; I10 Essential (primary) hypertension | CPT/HCPCS: 93005; 99212 ==

== ENCOUNTER 2023-02-24 17:35 | Outpatient (REF) | payer OTHER, MEDICAID, SELFPAY ==
[2023-03-08 09:11] LABS: Alphahydroxymidazolam,GCMS Ur NEGATIVE; Alphahydroxytriazolam, GCMS Ur NEGATIVE; Alprazolam, GCMS Urine NEGATIVE; Flurazepam Metabolite,GCMS Ur NEGATIVE; Lorazepam GCMS Urine NEGATIVE; Nordiazepam, GCMS Urine NEGATIVE; Oxazepam, GCMS Urine NEGATIVE; Temazepam, GCMS Urine NEGATIVE
== END 2023-02-24 17:36 | disposition home or self-care (01) ==
LOC: HO.HHCLNP 17:35
PROVIDERS: Visit Provider Family Medicine
DX: M54.2 Cervicalgia (principal); G89.29 Other chronic pain; F11.90 Opioid use, unspecified, uncomplicated
CPT/HCPCS: 80346

== ENCOUNTER → 2023-05-03 07:57 | Outpatient (REF) | payer OTHER, MEDICAID, SELFPAY ==
--- NOTE | 2023-05-03 08:00 | CA_ITS ---
Transthoracic Echocardiogram Patient (Last, First, Middle): Joshua Torres, Gender: Male Date of : 1960 Age: 62 Procedure Date: 05/03/2023 Procedure Type: Transthoracic Echocardiogram Location: OP Height: 167.64 cm Weight: 87.09 kg BSA: 1.97 m2 Heart Rate: bpm BP: 110 / 60 mmHg [employer]: TO Referring MD: Jose Guy MD Symptoms: I42.9 - Cardiomyopathy, unspecified Study Quality: Fair/Contrast ECG Rhythm: Sinus Conclusions: - The left ventricular systolic function is normal. The calculated ejection fraction is 57% by biplane method. - There is a small loculated pericardial effusion overlying the left ventricle. Findings Procedure Information Contrast agent, definity, is being given per protocol without apparent complications. Left Ventricle Normal left ventricular cavity size. There is mildly increased left ventricular wall thickness. The left ventricular systolic function is normal. The calculated ejection fraction is 57% by biplane method. There is no evidence of regional wall motion abnormalities. Venous The inferior vena cava is normal in size and collapses greater than 50% with inspiration. Pericardium/Pleural There is a small loculated pericardial effusion overlying the left ventricle. Prior Study Comparison No significant change compared to prior study dated: 08/17/2022. Measurements 2D Linear Measurements IVSd: 1.18 0.6-0.9/0.6-1.0 cm LVIDd: 5.14 3.9-5.3/4.2-5.9 cm LVIDd Index: 2.61 2.4-3.2/2.2-3.1 cm/m2 LVIDs: 3.49 2.0-3.6 cm LVPWd: 1.11 0.7-1.1 cm LV Mass: 285.35 67-162/88-224 g LV Mass Index: 144.85 43-95/49-115 g/m2 LVOT Diam: 2.40 3.0+(-)1.3 cm 2D Systolic Function EF 4C: 59.10 >55% EF 2C: 51.30 >55% EF BiP: 56.90 >55% LVOT LVOT Pk Agustin: 0.97 LVOT Mn Agustin: 0.66 LVOT VTI: 0.25 LVOT Pk Grad: 4.00 LVOT Mn Grad: 2.00 LVOT Diam: 2.40 LVOT Area: 4.52 Updated in Other Vendor System with Status of Final Tam Cosby MD electronically signed on 05/05/2023 10:30:45 AM with status of Final
== END ==
LOC: HO.CARD 07:57
PROVIDERS: PCP Family Medicine; Visit Provider Internal Medicine Cardiovascular Disease
DX: I42.9 Cardiomyopathy, unspecified (principal); I31.39 Other pericardial effusion (noninflammatory)
CPT/HCPCS: 93308; Q9957

== ENCOUNTER → 2023-05-03 08:00 | Outpatient (BNV) | payer OTHER, MEDICAID, SELFPAY | PROVIDERS: PCP Family Medicine; Visit Provider Internal Medicine | DX: I42.9 Cardiomyopathy, unspecified (principal); I31.39 Other pericardial effusion (noninflammatory) | CPT/HCPCS: 93308 ==

== ENCOUNTER 2023-05-05 11:59 | Outpatient (REF) | payer OTHER, MEDICAID, SELFPAY ==
--- NOTE | ~2023-05-05 | XR_ITS ---
EXAMINATION: XR SHOULDER, RIGHT XR HIP, RIGHT CLINICAL INFORMATION: Pain in groin while standing. Patient states pain for one week. Right shoulder pain with movement for one month per patient's statement. No injury for both per patient. COMPARISON: AP pelvis of 01/17/2018. TECHNIQUE: Lateral and 2 AP views of the right hip. 6 views of the right shoulder. FINDINGS: RIGHT SHOULDER: Mild degenerative changes in the acromioclavicular joint with joint space narrowing and hypertrophic change. Degenerative changes with hypertrophic change along the glenoid. Electronic device projects over the soft tissues of the lateral aspect of the upper arm. RIGHT HIP: Extensive vascular calcifications in the soft tissues. Mild joint space narrowing with degenerative changes at the right hip. Alignment preserved. XR/XR shoulder RT min 2V IMPRESSION: 1. Mild degenerative changes in the right shoulder. 2. Mild degenerative changes in the right hip. MRI should be considered for evaluation if there is concern for fracture or other underlying pathology.
--- NOTE | ~2023-05-05 | XR_ITS ---
EXAMINATION: XR SHOULDER, RIGHT XR HIP, RIGHT CLINICAL INFORMATION: Pain in groin while standing. Patient states pain for one week. Right shoulder pain with movement for one month per patient's statement. No injury for both per patient. COMPARISON: AP pelvis of 01/17/2018. TECHNIQUE: Lateral and 2 AP views of the right hip. 6 views of the right shoulder. FINDINGS: RIGHT SHOULDER: Mild degenerative changes in the acromioclavicular joint with joint space narrowing and hypertrophic change. Degenerative changes with hypertrophic change along the glenoid. Electronic device projects over the soft tissues of the lateral aspect of the upper arm. RIGHT HIP: Extensive vascular calcifications in the soft tissues. Mild joint space narrowing with degenerative changes at the right hip. Alignment preserved. XR/XR hip RT min 2V IMPRESSION: 1. Mild degenerative changes in the right shoulder. 2. Mild degenerative changes in the right hip. MRI should be considered for evaluation if there is concern for fracture or other underlying pathology.
== END 2023-05-05 12:00 | disposition home or self-care (01) ==
LOC: HO.HHCX 11:59
PROVIDERS: Visit Provider Family Medicine
DX: R10.2 Pelvic and perineal pain (principal); M25.511 Pain in right shoulder
CPT/HCPCS: 73030; 73502

== ENCOUNTER 2023-05-24 09:15 | Outpatient (REF) | payer OTHER, MEDICAID, SELFPAY | END 2023-05-24 09:16 | disposition home or self-care (01) | LOC: HO.HOSX 09:15 | PROVIDERS: Visit Provider Orthopaedic Surgery | DX: Z13.89 Encounter for screening for other disorder (principal) ==

== ENCOUNTER 2023-06-02 09:17 | Outpatient (AMB) | payer OTHER, MEDICAID, SELFPAY ==
--- NOTE | 2023-06-02 10:04 | MHC.OFFVIS ---
Intake Vital Signs 06/02/23 10:05 Height 5 ft 6 in Weight 196 lb 3.382 oz BMI 31.7 BP 118/62 Blood Pressure Location Lt brachial Position Sitting Pulse 67 Intake Visit Reasons: 3 month follow up Intake Note: 3 month follow-up with ekg feeling good Direct Sales Consultant Required: No Allergies No Known Allergies Allergy (Verified 02/21/23 14:16) Medication List - Last Reconciled 06/02/23 by Jose Guy MD albuterol sulfate 90 mcg/actuation (ProAir HFA) 2 puffs PO Q4-6H PRN alcohol swabs (Alcohol Prep Pads) 1 pad topical TID amiodarone 200 mg PO .daily amlodipine 10 mg PO DAILY apixaban (Eliquis) 5 mg PO BID blood sugar diagnostic (FreeStyle Lite Strips) calcitriol 0.25 mcg PO 3XW carvedilol 12.5 mg PO BID clonazepam 1 mg PO BID clotrimazole 1% 1 appl topical BID colchicine 0.6 mg PO BID diclofenac sodium 1% 2 grams topical BID PRN furosemide 40 mg PO QAM PRN gabapentin 100 mg PO insulin glargine (Lantus Solostar U-100 Insulin) 25 units subcut DAILY insulin lispro (Humalog Terry KwikPen (U-100)) 1 sliding scale dose subcut USEASDIRECTD ipratropium bromide 2 sprays intranasal TID levothyroxine 112 mcg PO QAM loratadine 10 mg PO Q OTHER DAY nitroglycerin 0.4 mg sublingual Q5M PRN omeprazole 40 mg PO BID oxycodone-acetaminophen 10-325 mg 1 tab PO Q4H PRN pen needle, diabetic (Pentips) rosuvastatin 10 mg PO BEDTIME sodium,potassium,mag sulfates 17.5-3.13-1.6 gram (Suprep Bowel Prep Kit) DILUTE; drink full amount early evening before AND next morning at least 2 hr before procedure; follow w 960 mL water PO tamsulosin 0.4 mg PO QPM zolpidem 10 mg PO BEDTIME HPI HPI Comments History of Present Illness Details Joshua comes for follow-up. Patient says he feels better. Has more energy. Remains in sinus rhythm. Echocardiogram shows improved LV ejection fraction to 57%. Patient says when he walks about a mi he does get some chest pressure usually stops in rest of the symptoms go away. These are not life-limiting symptoms at current point in time. He denies any heart failure symptoms. Takes all his medications. No bleeding issues or neurologic events [facility] Medical History Hx of sleep apnea GERD (gastroesophageal reflux disease) Atrial flutter Colon adenomas Asthma Colon cancer screening End stage renal disease Type 2 diabetes mellitus with unspecified complications Essential hypertension Normocytic anemia Non-cardiac chest pain CAD (coronary artery disease) CVA (cerebral vascular accident) Hypertension Diabetes Surgical History (Reviewed 06/02/23 @ 11: by Jose Guy MD) History of colonoscopy H/O neck surgery Hx of colonoscopy History of bladder surgery Stented coronary artery History of nephrectomy Family History (Reviewed 06/02/23 @ 11: by Jose Guy MD) Other No family history of coronary artery disease Social History Are you a primary occasional caregiver to a significant other at home: No Do you presently have visiting nurse or other home services: Yes ([employer] 11 day hours, 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) Alcohol intake: former Patient Tobacco Use Status: Former Tobacco user Quit Date: 35 yrs ago Tobacco use type: Cigarette service: No Current occupational status: disabled Review of Systems Const Denies chills, Denies fatigue, Denies fever(s), Denies frequent falls, Denies weakness, Denies weight gain and Denies weight loss ENT Denies dizziness Card Denies chest pain, Denies leg edema, Denies lightheadedness, Denies palpitations, Denies dyspnea, Denies dyspnea on exertion, Denies orthopnea and Denies other (loss of consciousness) Resp Denies cough, Denies dyspnea and Denies dyspnea on exertion GI Denies hematochezia and Denies change in stool character Musc Denies abnormal gait, Denies muscle weakness, Denies numbness, Denies radiating pain into limb and Denies tingling Neuro Denies abnormal gait, Denies dizziness, Denies frequent falls, Denies numbness, Denies tingling and Denies weakness Endo Denies fatigue and Denies palpitations Physical Exam Vital Signs: Last Vital Signs Pulse 67 06/02/23 10:05 BP 118/62 06/02/23 10:05 BMI result Body Mass Index 31.7 Const General: cooperative, healthy appearing, comfortable and no acute distress Orientation/consciousness: patient oriented x3 Neck Neck: Yes normal visual inspection and Yes no JVD Resp Effort & Inspection: normal respiratory effort Auscultation: clear to auscultation bilaterally, no crackles, no rales, no rhonchi and no wheezes Cardio Jugular venous distension: no JVD Rate: regular rate Rhythm: regular rhythm Heart sounds: S1 normal heart sound present, S2 normal heart sound present, no gallops, no murmurs and no rubs Peripheral pulses: Peripheral pulses 2+ throughout GI Inspection: Yes normal to inspection Neuro General: patient oriented x3 Extrem General: Yes normal to inspection, No no pedal edema and No calf tenderness Psych Appearance: grossly normal Mental Status: mental status grossly normal Speech and movement: Normal speech and movement present Office Procedures EKG Details: EKG shows normal sinus rhythm with first-degree AV block with rightward axis otherwise normal EKG 51501-[id number], Complete Assessment & Plan Assessment & Plan (1) Atrial flutter: Code(s): I48.92 - Unspecified atrial flutter Plan: Atrial flutter status post cardioversion and maintain in son amiodarone to limited treatment options from antiarrhythmic perspective. Doing very well with much improved functionality as well as improvement in LV ejection fraction. Will continue pursue rhythm control approach. If he continues to maintain rhythm will pursue ablation therapy in the future. Follow up in the clinic 6 months therapy importance of oral anticoagulation therapy was discussed given his high risk for recurrent thromboembolic event especially CVA. Avoidance of stimulants was discussed. Check for amiodarone toxicity in 6 months time. Continue aggressive blood pressure control which is currently well optimized. (2) Cardiomyopathy: Code(s): I42.9 - Cardiomyopathy, unspecified Qualifiers: Cardiomyopathy type: unspecified Qualified Code(s): I42.9 - Cardiomyopathy, unspecified Plan: Prior history of cardiomyopathy which appears to be more tachycardia mediated cardiomyopathy in setting of coronary disease with prior inferior myocardial infarction. Improvement in LV ejection fraction overall. Improvement in symptoms overall. Continue current neurohormonal modulation. Continue rhythm control approach as above. Continue anti ischemic therapy. (3) CAD (coronary artery disease): Code(s): I25.10 - Atherosclerotic heart disease of [place] coronary artery without angina pectoris Qualifiers: Coronary Disease-Associated Artery/Lesion type: [place] artery [place] vs. transplanted heart: [place] heart Associated angina: without angina Qualified Code(s): I25.10 - Atherosclerotic heart disease of [place] coronary artery without angina pectoris Plan: CAD with inferior myocardial infarction. Currently doing well. Continue aggressive risk factor modification. Continue high-intensity statin therapy. Target goal LDL closer to 60 mg/dL. Continue aggressive blood pressure control which is currently well optimized on current therapy. Importance of good blood pressure control was discussed. He is currently still having symptoms of exertional angina but these are not life-limiting. Advised to call me the symptoms worsen may require further workup. (4) Pericardial effusion: Code(s): I31.39 - Other pericardial effusion (noninflammatory) Plan: Pericardial effusion most likely related to renal failure. The small pericardial effusion still present. At this point time no further interventions required. Will monitor by echocardiogram on annual basis. Advised to call me with any worsening symptoms of shortness of breath. Will follow up in the clinic in 6 months time, sooner p.r.n.. Thank you for allowing me to partake in his care Coding Level of Care Code Est Pt Level 4 (33035) Diagnoses Atrial flutter I48.92 Cardiomyopathy, unspecified type I42.9 Cardiomyopathy type: unspecified Coronary artery disease involving [place] coronary artery of [place] heart without angina pectoris I25.10 Coronary Disease-Associated Artery/Lesion type: [place] artery [place] vs. transplanted heart: [place] heart Associated angina: without angina Pericardial effusion I31.39 CPT Codes EKG - CPT: 18032-[id number], Complete ([id number])
[2023-06-02 10:05] VITALS: BP 118/62; PULSE 67; BMI 31.7
== END 2023-06-02 10:56 | disposition home or self-care (01) ==
PROVIDERS: PCP Family Medicine; Visit Provider Internal Medicine Cardiovascular Disease
DX: I48.92 Unspecified atrial flutter (principal); I42.9 Cardiomyopathy, unspecified; I25.10 Atherosclerotic heart disease of native coronary artery without angina pectoris; I31.39 Other pericardial effusion (noninflammatory)
CPT/HCPCS: 93010; 99214

== ENCOUNTER → 2023-06-02 09:17 | Outpatient (BNVA) | payer OTHER, MEDICAID, SELFPAY | PROVIDERS: PCP Family Medicine; Visit Provider Internal Medicine Cardiovascular Disease | DX: I48.92 Unspecified atrial flutter (principal); I42.9 Cardiomyopathy, unspecified; I25.10 Atherosclerotic heart disease of native coronary artery without angina pectoris; I31.39 Other pericardial effusion (noninflammatory); Z79.899 Other long term (current) drug therapy | CPT/HCPCS: 93005 ==

== ENCOUNTER 2023-06-07 10:36 | Outpatient (REF) | payer OTHER, MEDICAID, SELFPAY | END 2023-06-07 10:37 | disposition home or self-care (01) | LOC: HO.HOSX 10:36 | PROVIDERS: Visit Provider Orthopaedic Surgery | DX: Z13.89 Encounter for screening for other disorder (principal) ==

== ENCOUNTER 2023-06-21 09:52 | Outpatient (AMB) | payer OTHER, MEDICAID, SELFPAY ==
[2023-06-21 09:59] VITALS: BMI 31.6
--- NOTE | 2023-06-21 09:59 | MHC.OFFVIS ---
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 Patient reports his pain is a 8 on the 1-10 pain scale. He states the pain has been going on for about 4 months and hurts more when lifting above the head. He has done physical therapy exercises which aggravated his pain. He has also tried Tylenol and anti-inflammatory medicines which gave him minimal relief. The patient reports difficulty lifting his right hand above shoulder height. Allergies No Known Allergies Allergy (Verified 06/21/23 10:05) Medication List - Last Reconciled 06/21/23 by Mathew Cheema MD albuterol sulfate 90 mcg/actuation (ProAir HFA) 2 puffs PO Q4-6H PRN alcohol swabs (Alcohol Prep Pads) 1 pad topical TID amiodarone 200 mg PO .daily amlodipine 10 mg PO DAILY apixaban (Eliquis) 5 mg PO BID blood sugar diagnostic (FreeStyle Lite Strips) calcitriol 0.25 mcg PO 3XW carvedilol 12.5 mg PO BID clonazepam 1 mg PO BID colchicine 0.6 mg PO BID gabapentin 100 mg PO insulin glargine (Lantus Solostar U-100 Insulin) 25 units subcut DAILY insulin lispro (Humalog Terry KwikPen (U-100)) 1 sliding scale dose subcut USEASDIRECTD ipratropium bromide 2 sprays intranasal TID levothyroxine 112 mcg PO QAM loratadine 10 mg PO Q OTHER DAY nitroglycerin 0.4 mg sublingual Q5M PRN omeprazole 40 mg PO BID oxycodone-acetaminophen 10-325 mg 1 tab PO Q4H PRN pen needle, diabetic (Pentips) rosuvastatin 10 mg PO BEDTIME tamsulosin 0.4 mg PO QPM zolpidem 10 mg PO BEDTIME zolpidem (Ambien) 10 mg PO BEDTIME PFSH Medical History Hx of sleep apnea GERD (gastroesophageal reflux disease) Atrial flutter Colon adenomas Asthma Colon cancer screening End stage renal disease Type 2 diabetes mellitus with unspecified complications Essential hypertension Normocytic anemia Non-cardiac chest pain CAD (coronary artery disease) CVA (cerebral vascular accident) Hypertension Diabetes Surgical History History of colonoscopy H/O neck surgery Hx of colonoscopy History of bladder surgery Stented coronary artery History of nephrectomy Family History Other No family history of coronary artery disease Social History Are you a primary continuum of care manager to a significant other at home: No Do you presently have visiting nurse or other home services: 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, 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) Alcohol intake: former Patient Tobacco Use Status: Former Tobacco user Quit Date: 35 yrs ago Tobacco use type: Cigarette service: No Current occupational status: disabled Physical Exam Vital Signs: BMI result Body Mass Index 31.6 Const Other: Well-nourished well-developed very friendly male awake alert and oriented x3 in no acute distress Extrem Other: Bilateral upper extremity examination shows good capillary refill, no skin lesions noted, normal sensation light touch Right shoulder examination shows decreased range of motion when compared to his left shoulder, 4+ out of 5 strength with supraspinatus testing, positive impingement signs, tenderness over his acromioclavicular joint, no instability Results Reviewed Results Reviewed: X-rays of the patient's right shoulder show severe acromioclavicular joint narrowing, a type 2 acromion, no acute bony abnormalities Assessment & Plan Assessment & Plan (1) Right shoulder pain: Code(s): M25.511 - Pain in right shoulder Plan Mr. Akil Pretty presents with progressively worsening right shoulder pain and weakness due to impingement syndrome, acromioclavicular joint arthritis and possible rotator cuff tearing. Thus, I will send the patient for an MRI of his right shoulder to further evaluate the status of his rotator cuff tendons. If he does have a full-thickness tear I will recommend surgical repair to optimize is future functional level. Feel free to call me at any time should questions regarding his orthopedic management arise. Thank you very much for asking me to see this very friendly gentleman. I spent 22 minutes in reviewing the patient's records and imaging studies, seeing the patient and documenting in the medical record. Orders: Orders MR shoulder RT wo con Today M25.511 - Pain in right shoulder Coding Level of Care Code New Pt Level 2 (37964) Diagnoses Right shoulder pain M25.511
== END 2023-06-21 10:25 | disposition home or self-care (01) ==
PROVIDERS: PCP Family Medicine; Visit Provider Orthopaedic Surgery
DX: M25.511 Pain in right shoulder (principal)
CPT/HCPCS: 99202

== ENCOUNTER 2023-06-21 10:08 | Outpatient (REF) | payer OTHER, MEDICAID, SELFPAY | END 2023-06-21 10:09 | disposition home or self-care (01) | LOC: HO.HOSX 10:08 | PROVIDERS: Visit Provider Orthopaedic Surgery | DX: Z13.89 Encounter for screening for other disorder (principal) ==

== ENCOUNTER 2023-07-05 07:12 | Outpatient (REF) | payer OTHER, MEDICAID, SELFPAY ==
--- NOTE | ~2023-07-05 | MR_ITS ---
EXAMINATION: MR SHOULDER WITHOUT CONTRAST, RIGHT CLINICAL INFORMATION: Right shoulder pain. Decreased range of motion. COMPARISON: Right shoulder radiographs dated 05/05/2023. TECHNIQUE: MRI of the shoulder without contrast was performed on a high-field scanner. FINDINGS: ROTATOR CUFF: Mild supraspinatus tendinosis with focal intrasubstance partial tearing of the junctional fibers measuring 0.8 x 0.8 cm. Possible extension to the bursal surface. Fluid extends proximally along the myotendinous junction. No extension to the articular surface. Moderate subscapularis tendinosis with articular surface fraying. No full-thickness rotator cuff tendon tear. No muscle atrophy or fatty infiltration. BICEPS: Intact. CORACOACROMIAL ARCH: The undersurface of the acromion is curved with no subacromial spur. Moderate acromioclavicular osteoarthritis. LABRUM/CAPSULE: No labral tear. Thickening and edema of the anteroinferior joint capsule which can be seen in the setting of adhesive capsulitis. GLENOHUMERAL JOINT/MARROW: Mild articular cartilage signal heterogeneity with tiny marginal osteophytes. Trace joint effusion. MR/MR shoulder RT wo con IMPRESSION: 1. Mild supraspinatus tendinosis with focal intrasubstance partial tearing of the junctional fibers measuring 0.8 x 0.8 cm. Possible extension to the bursal surface. Moderate subscapularis tendinosis with articular surface fraying. 2. Moderate acromioclavicular osteoarthritis. 3. Thickening and edema of the anteroinferior joint capsule which can be seen in the setting of adhesive capsulitis. 4. Minimal glenohumeral arthrosis and trace joint effusion.
== END 2023-07-05 07:13 | disposition home or self-care (01) ==
LOC: HO.MRI 07:12
PROVIDERS: PCP Family Medicine; Visit Provider Orthopaedic Surgery
DX: M25.511 Pain in right shoulder (principal)
CPT/HCPCS: 73221

== ENCOUNTER 2023-07-28 11:14 | Outpatient (AMB) | payer OTHER, MEDICAID, SELFPAY ==
--- NOTE | 2023-07-28 11:18 | A.OFFVIS_ITS ---
Intake Vital Signs 07/28/23 11:19 Height 5 ft 6 in Weight 196 lb BMI 31.6 Intake Visit Reasons: OV-MRI review right shoulder Intake Note: Joshua is a 62 year old Right hand dominate male who presents for his MRI review of his Right shoulder. Patient reports he is still having pain. The patient states that his right shoulder pain and stiffness have gotten worse over the last few years in spite of continued non operative treatments. He has done physical therapy which aggravated his pain. He has also tried cortisone shots which gave him minimal relief. He has taken Tylenol which gives him only mild relief. He has not able to tolerate anti-inflammatory medicines because he is on Eliquis. Patient reports difficulty lifting his right hand above shoulder height. Allergies No Known Allergies Allergy (Verified 07/28/23 11:22) [facility] Medical History Hx of sleep apnea GERD (gastroesophageal reflux disease) Atrial flutter Colon adenomas Asthma Colon cancer screening End stage renal disease Type 2 diabetes mellitus with unspecified complications Essential hypertension Normocytic anemia Non-cardiac chest pain CAD (coronary artery disease) CVA (cerebral vascular accident) Hypertension Diabetes Surgical History History of colonoscopy H/O neck surgery Hx of colonoscopy History of bladder surgery Stented coronary artery History of nephrectomy Family History Other No family history of coronary artery disease Social History Are you a primary progressive care unit registered nurse to a significant other at home: No Do you presently have visiting nurse or other home services: Yes ([employer]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, 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) Alcohol intake: former Patient Tobacco Use Status: Former Tobacco user Quit Date: 35 yrs ago Tobacco use type: Cigarette service: No Current occupational status: disabled Physical Exam Vital Signs: BMI result Body Mass Index 31.6 Const Other: Well-nourished well-developed very friendly male awake alert and oriented x3 in no acute distress Extrem Other: Bilateral upper extremity examination shows good capillary refill, no skin lesions noted, normal sensation light touch Right shoulder examination shows decreased active and passive range of motion when compared to his left shoulder, 4+ out of 5 strength with supraspinatus testing, positive impingement signs, tenderness over his acromioclavicular joint, no instability Results Reviewed Results Reviewed: MRI of the patient's right shoulder show severe acromioclavicular joint narrowing, a type 3 acromion, signal change within the supraspinatus tendon most likely due to adhesive capsulitis Assessment & Plan Assessment & Plan (1) Impingement of right shoulder: Code(s): M25.811 - Other specified joint disorders, right shoulder Plan Mr. Akil Pretty presents with progressively worsening right shoulder pain and stiffness due to impingement syndrome, acromioclavicular joint arthritis and ad hesive capsulitis. I had a lengthy discussion with the patient regarding the treatment options. At this point he has failed continued non operative treatments. The risks and benefits of right shoulder surgery were discussed at length with the patient. The patient wishes to proceed with surgery. Surgery will most likely involve right shoulder diagnostic arthroscopy with distal clavicle excision, acromioplasty, anterior capsular release and manipulation under anesthesia. The patient will be scheduled for her next available date. He will follow-up as instructed. Feel free to call me at any time should questions regarding his orthopedic management arise. I spent 22 minutes in reviewing the patient's records and imaging studies, seeing the patient and documenting in the medical record. Coding Level of Care Code Est Pt Level 2 (32000) Diagnoses Impingement of right shoulder M25.811
[2023-07-28 11:19] VITALS: BMI 31.6
== END 2023-07-28 11:39 | disposition home or self-care (01) ==
PROVIDERS: PCP Family Medicine; Visit Provider Orthopaedic Surgery
DX: M25.811 Other specified joint disorders, right shoulder (principal); M75.42 Impingement syndrome of left shoulder
CPT/HCPCS: 99213

== ENCOUNTER → 2023-07-28 11:14 | Outpatient (BNVA) | payer OTHER, MEDICAID, SELFPAY | PROVIDERS: PCP Family Medicine; Visit Provider Orthopaedic Surgery ==

== ENCOUNTER 2023-09-18 10:13 | Inpatient (IN) | payer MEDICARE, MEDICAID, SELFPAY ==
--- NOTE | ~2023-09-18 | XR_ITS ---
EXAMINATION: X-ray bilateral femurs CLINICAL INFORMATION: Bilateral leg pain, greater on right. Rule out impending diagnosis, lytic lesions. COMPARISON: Correlation with CT abdomen 09/18/2023 TECHNIQUE: Right femur 4 views. Left femur 4 views. FINDINGS: Right femur: Right hip joint space is maintained. No lytic or sclerotic lesion is evident in the femur. The small sclerotic foci seen in the pelvic bones on the recent CT scan is not evident on x-ray. No acute fracture or malalignment. Mild medial compartment joint space narrowing. Extensive vascular calcification. Left femur: Left hip joint space is maintained. There is a small rounded sclerotic focus projected over the lateral femoral condyle, on the AP view, uncertain if this related to overlapping densities versus a bony lesion. No additional lytic or blastic lesion is identified. No acute fracture or malalignment. Mild medial compartment joint space narrowing. Extensive vascular calcification. Mild medial compartment narrowing of the left knee. XR/XR femur RT 2V IMPRESSION: Right femur: No definite lytic or blastic femoral lesion is identified by x-ray. Patient is known lesions in the pelvis, seen on the recent CT scan. Consider further evaluation with bone scan. Left femur: Small rounded sclerotic focus in the lateral femoral condyle, uncertain if this represents a lesion versus secondary to overlapping structures. Consider further evaluation bone scan.
--- NOTE | ~2023-09-18 | XR_ITS ---
EXAMINATION: X-ray bilateral femurs CLINICAL INFORMATION: Bilateral leg pain, greater on right. Rule out impending diagnosis, lytic lesions. COMPARISON: Correlation with CT abdomen 09/18/2023 TECHNIQUE: Right femur 4 views. Left femur 4 views. FINDINGS: Right femur: Right hip joint space is maintained. No lytic or sclerotic lesion is evident in the femur. The small sclerotic foci seen in the pelvic bones on the recent CT scan is not evident on x-ray. No acute fracture or malalignment. Mild medial compartment joint space narrowing. Extensive vascular calcification. Left femur: Left hip joint space is maintained. There is a small rounded sclerotic focus projected over the lateral femoral condyle, on the AP view, uncertain if this related to overlapping densities versus a bony lesion. No additional lytic or blastic lesion is identified. No acute fracture or malalignment. Mild medial compartment joint space narrowing. Extensive vascular calcification. Mild medial compartment narrowing of the left knee. XR/XR femur LT 2V IMPRESSION: Right femur: No definite lytic or blastic femoral lesion is identified by x-ray. Patient is known lesions in the pelvis, seen on the recent CT scan. Consider further evaluation with bone scan. Left femur: Small rounded sclerotic focus in the lateral femoral condyle, uncertain if this represents a lesion versus secondary to overlapping structures. Consider further evaluation bone scan.
--- NOTE | ~2023-09-18 | US_ITS ---
EXAMINATION: US VENOUS ULTRASOUND WITH DOPPLER LOWER EXTREMITY, RIGHT CLINICAL INFORMATION: Pain COMPARISON: None available. TECHNIQUE: Ultrasound of the deep veins is performed from the hip to the calf with compression sonography and color and pulse Doppler assessment. Spectral analysis with color-flow imaging is performed. FINDINGS: There is normal venous compression and respiratory variation and augmented flow. The visualized common femoral vein, superficial femoral vein, profunda femoral vein, popliteal vein, and the trifurcation region shows no evidence of deep venous thrombosis. There is no significant popliteal fossa cyst. If the patient's symptoms persist, followup ultrasound in 5 days 7 days might be of value to exclude proximal propagation from a non-visualized calf vein. US/US venous duplex LE RT IMPRESSION: No DVT demonstrated in the right lower extremity.
--- NOTE | ~2023-09-18 | CT_ITS ---
EXAMINATION: CT abdomen pelvis wo IV con CLINICAL INFORMATION: Reason for Exam right groin pain, r/o incarcerated hernia COMPARISON: Prior CT 06/26/2022 TECHNIQUE: Multidetector volumetric imaging was performed from the superior aspect of the liver through the pubic symphysis , noncontrast CT. Sagittal and coronal reformatted images were obtained on the technologist's workstation. This CT examination was performed using dose optimization techniques as appropriate, variously including the following: *Automated exposure control *Adjustment of mA and/or kV according to patient size (this includes techniques or standardized protocols for targeted exams where dose is matched to indication/reason for exam; i.e. extremities or head) *Use of iterative reconstruction technique DLP: 766 mGy-cm FINDINGS: LOWER THORAX: Included lung bases are clear. HEPATOBILIARY: No focal hepatic lesions. No biliary ductal dilatation. GALLBLADDER: Gallbladder not visualized might have been removed. SPLEEN: Spleen is enlarged 14.5 cm. PANCREAS: No focal mass or ductal dilatation. STOMACH AND GASTROINTESTINAL TRACT: Stomach is grossly unremarkable. There are few mildly dilated the small bowel loops in the right lower quadrant uncertain etiology, could be mild ileus versus mild partial small bowel obstruction. The terminal ileum is unremarkable. No significant dilatation or air-fluid levels. No CT evidence of appendicitis. ADRENALS: No adrenal nodules. KIDNEYS/URETERS: Right kidney has been resected, there are surgical clips, no CT evidence of mass or fluid in the right renal bed. Left kidney is unremarkable. No stone or hydronephrosis. URINARY BLADDER: Partially decompressed. PELVIC VISCERA: Prostate is enlarged measuring 6.2 x 4.3 cm. There are bilateral inguinal hernias containing fat and mesentery, no bowels. PERITONEUM: No free air or fluid. LYMPH NODES: No lymphadenopathy. VASCULAR:There are aortic vascular calcifications. No aneurysm. BONES, ABDOMINAL WALL AND SOFT TISSUES: Schmorl node in the inferior endplates of L1 and T10. Small sclerotic densities in the iliac bones bilaterally. More subtle scattered punctate radiolucencies, although could be bone demineralization, cannot entirely rule out the possibility of bone lesions. Such as from prostate. CT/CT abdomen pelvis wo IV con IMPRESSION: 1. There are bilateral inguinal hernias containing fat and mesentery, no bowels. 2. There are few mildly dilated small bowel loops in the right lower quadrant uncertain etiology, could be mild regional ileus versus mild partial small bowel obstruction. The terminal ileum is not dilated. If patient remain symptomatic consider correlation with follow-up x-ray or Gastrografin study in 24 to 48 hours. 3. Right kidney has been resected, no CT evidence of mass or fluid in the right renal bed. 4. Spleen is enlarged 14.5 cm. 5. Small sclerotic densities in the iliac bones bilaterally, more subtle scattered punctate radiolucencies, although could be bone demineralization, cannot entirely rule out the possibility of bone lesions. Such as from prostate. Consider correlation with follow-up bone scan.
[2023-09-18 10:15] VITALS: BP 132/62; PULSE 75; RESP 18; TEMP 36.6; O2SAT 98; BMI 30.8
--- OUTSIDE RECORDS SUMMARY | 2023-09-18 10:42 | XMS_ITS | Continuity of Care Document ---
Author Organization [facility] Address [address] [place] [id number]- Care Team Providers Care Inventory Worker Name Role Phone Macie Link DO Primary Care Physician [phone] Encounter [facility] Date(s): 03/22/23 - 04/21/23 [facility] [address] [place] [id number]- [place] Allergies, Adverse Reactions, Alerts No Known [...] 11/27/21 15:04:00 EDT, Route to Pharmacy Electronically, [facility], Partial fill upon patient request if the prescription is for a schedule II opioi... Start Date: 11/27/21 Status: Ordered aspirin 81 mg oral delayed release tablet 81 mg, 1, tablet, By Mouth, Daily, # 30 tablet, Refills 0, Tot. Refills 0, Maintenance, 11/27/21 15:02:00 EDT, Route to Pharmacy Electronically, [facility], Partial fill upon patient request [...] Maintenance, 07/25/2313:26:00 EST, Route to Pharmacy Electronically, [facility], Partial fill upon patientrequest if [...] 11/10/21 12:44:00 EDT, Route to Pharmacy Electronically, [facility] 3, Partial fill upon [...] 0 Refills, Maintenance, 09/06/21 14:55:00 EDT, Suspension, [facility], Partial fill upon [...] information Care Team Personnel Name: Isabela Holly RN Position: [facility] RN Member Role: Primary Care Nurse Name: Renetta Soriano RN Position: [facility] Nurse Member Role: Primary Care Nurse Name: Riana Puentes Position: [facility] Outreach Member Role: Lifetime Consulting Physician Name: Zenaida Last RN Position: [facility] Nurse Member Role: Primary Care Nurse Name: Shelly Nguyen RN Position: [facility] RN Member Role: Primary Care Nurse Name: Lorena Freeman NP Position: [facility] Associate Professional Member Role: Lifetime Consulting Provider Address: Address: [address] [place], [place] [address] [place] [address]- Name: Nilsa Gupta RN Position: [facility] AMB Nurse Member Role: Primary Care Nurse Name: Raphael Turner MD Position: [facility] Renal MD Member Role: Lifetime Consulting Physician Address: Address: [address] [place], [place] [address]E [facility] [place] [address]- Name: Macie Link DO Position: [facility] Outreach Member Role: PCP Address: Address: [address] [place] [id number]- [place] Name: Dinh Luo RN Position: [facility] RN Member Role: Primary Care Nurse Name: Britney Burch RN Position: [facility] RN Member Role: Primary Care Nurse Name: Mert Cowan Position: [facility] Associate Professional Member Role: Lifetime Consulting Provider Address: Address: [address] [place] [address]- Name: Xenia Bains RN Position: [facility] RN Member Role: Primary Care Nurse Name: Jeffery Diaz MD Position: [facility] Renal MD Member Role: Lifetime Consulting Physician Address: Address: [address] [facility] [facility] [place] [address]- Name: Susy Gavin RN Position: [facility] RN Member Role: Primary Care Nurse Name: Jayme Nevarez RN Position: [facility] RN Member Role: Primary Care Nurse Name: Jane Gilmore RN Position: [facility] Onco RN Member Role: Primary Care Nurse Name: Jacki Page RN, I Position: [facility] RN Member Role: Primary Care Nurse Care Team Related Persons Name: PUSHPA OCHOA Address: [address] [place] [address] Name: MARGARITA TURNER Address: home [address] [address]
--- OUTSIDE RECORDS SUMMARY | 2023-09-18 10:42 | XMS_ITS | Continuity of Care Document ---
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 Start Date: 11/27/21 Status: Ordered aspirin 81 mg oral delayed release tablet 81 mg, 1, tablet, By Mouth, Daily, # 30 tablet, Refills 0, Tot. Refills 0, Maintenance, 11/27/21 15:02:00 EDT, Route to Pharmacy Electronically, [facility] 3, Partial fill upon patient request [...] Maintenance, 07/25/2313:26:00 EST, Route to Pharmacy Electronically, [facility], Partial fill upon patientrequest [...] EDT, Route to Pharmacy Electronically, [facility] 3, Partial fill upon [...] pain Confirmed Active Sleep apnea Confirmed Active Social History Social History Type Response Smoking Status Never (less than 100 in lifetime) entered on: 06/21/23 Sex Patient Care team information Care Team Personnel Name: Isabela oHlly RN Position: [facility] RN Member Role: Primary Care Nurse Name: Subha Krishna RN Position: [facility] RN Member Role: Primary Care Nurse Name: Renetta Soriano RN Position: [facility] AMB Nurse Member Role: Primary Care Nurse Name: Riana Puentes Position: [facility] Outreach Member Role: Lifetime Consulting Physician Name: Zenaida Last RN Position: [facility] Nurse Member Role: Primary Care Nurse Name: Shelly Nguyen RN Position: [facility] RN Member Role: Primary Care Nurse Name: Lorena Freeman NP Position: [facility] Associate Professional Member Role: Lifetime Consulting Provider Address: Address: [address] [place], [place] [address]E [facility] [place], [place] [address] Name: Nilsa Gupta RN Position: [facility] AMB Nurse Member Role: Primary Care Nurse Name: Raphael Turner MD Position: [facility] Renal MD Member Role: Lifetime Consulting Physician Address: Address: [address] [place], [place] [address]E [facility] [place], [place] [address] Name: Macie Link DO Position: [facility] Outreach Member Role: PCP Address: Address: [address] [place] [id number] Name: Dinh Luo RN Position: [facility] RN Member Role: Primary Care Nurse Name: Britney Burch RN Position: S RN Member Role: Primary Care Nurse Name: Mert Cowan Position: [facility] Associate Professional Member Role: Lifetime Consulting Provider Address: Address: [address] [place] [address] Name: Xenia Bains RN Position: [facility] RN Member Role: Primary Care Nurse Name: Jeffery Diaz MD Position: [facility] Renal MD Member Role: Lifetime Consulting Physician Address: Address: [address] [place] [address] [address] [facility] [place] [place] [address]- Name: Susy Gavin RN Position: [facility] RN Member Role: Primary Care Nurse Name: Jayme Nevarez RN Position: [facility] RN Member Role: Primary Care Nurse Name: Jane Gilmore RN Position: [facility] Onco RN Member Role: Primary Care Nurse Name: Jacki Page RN, I Position: [facility] RN Member Role: Primary Care Nurse Care Team Related Persons Name: PUSHPA OCHOA Address: home [address] [place] [address] Name: MARGARITA TURNER Address: home [address] [address]
--- OUTSIDE RECORDS SUMMARY | 2023-09-18 10:43 | XMS_ITS | Continuity of Care Document ---
Author Organization [facility] Address [address] [place] [address]- Care Team Providers Care Desk Assistant Name Role Phone Macie Link DO Primary Care Physician [facility]counter [facility] Date(s): 06/23/23 - 07/23/[address] [address]- Allergies, Adverse Reactions, Alerts No Known Allergies [...] [facility] 3, Partial fill upon patient request if the prescription is for a schedule II opioi... Start Date: 11/27/21 Status: Ordered aspirin 81 mg oral delayed release tablet 81 mg, 1, tablet, By Mouth, Daily, # 30 tablet, Refills 0, Tot. Refills 0, Maintenance, 11/27/21 15:02:00 EDT, Route to Pharmacy Electronically, [facility] 3, Partial fill upon patient request [...] Maintenance, 07/25/2313:26:00 EST, Route to Pharmacy Electronically, [facility], Partial fill upon patientrequest [...] 11/10/21 12:44:00 EDT, Route to Pharmacy Electronically, [facility], Partial fill upon patient [...] 0 Refills, Maintenance, 09/06/21 14:55:00 EDT, Suspension, [facility], Partial fill upon patient [...] Team Personnel Name: Isabela Holly RN Position: [facility] RN Member Role: Primary Care Nurse Name: Subha Krishna RN Position: [facility] RN Member Role: Primary Care Nurse Name: Renetta Soriano RN Position: [facility] AMB Nurse Member Role: Primary Care Nurse Name: Riana Puentes Position: [facility] Outreach Member Role: Lifetime Consulting Physician Name: Zenaida Last RN Position: [facility] Nurse Member Role: Primary Care Nurse Name: Shelly Nguyen RN Position: [facility] RN Member Role: Primary Care Nurse Name: Lorena Freeman NP Position: [facility] Associate Professional Member Role: Lifetime Consulting Provider Address: Address: [address] [place], [place] [address]E [facility] [place], [place] [address] Name: Nilsa Gupta RN Position: [facility] AMB Nurse Member Role: Primary Care Nurse Name: Raphael Turner MD Position: [facility] Renal MD Member Role: Lifetime Consulting Physician Address: Address: [address] [place], [place] [address]E [facility] [place], [place] [address] Name: Macie Link DO Position: [facility] Outreach Member Role: PCP Address: Address: [address] [place] [address] Name: Dinh Luo RN Position: [facility] RN Member Role: Primary Care Nurse Name: Britney Burch RN Position: S RN Member Role: Primary Care Nurse Name: Mert Cowan Position: [facility] Associate Professional Member Role: Lifetime Consulting Provider Address: Address: [address] [place] [address] Name: Xenia Bains RN Position: [facility] RN Member Role: Primary Care Nurse Name: Jeffery Diaz MD Position: [facility] Renal MD Member Role: Lifetime Consulting Physician Address: Address: [address] [place] [address] [address] [facility] [place] [address]- Name: Susy Gavin RN Position: [facility] RN Member Role: Primary Care Nurse Name: Jayme Nevarez RN Position: [facility] RN Member Role: Primary Care Nurse Name: Jane Gilmore RN Position: [facility] Onco RN Member Role: Primary Care Nurse Name: Jacki Page RN, I Position: [facility] RN Member Role: Primary Care Nurse Care Team Related Persons Name: PUSHPA OCHOA Address: [address] [place] [address] Name: MARGARITA TURNER Address: home [address] [address]
--- OUTSIDE RECORDS SUMMARY | 2023-09-18 10:43 | XMS_ITS | Continuity of Care Document ---
Author Organization [facility] Address [address] [place] [address]- Care Team Providers Care Auto Mechanics Teacher Name Role Phone Macie Link DO Primary Care Physician Encounter [facility] Date(s): 01/20/23 - 02/19/23 [facility] [address] [place] [id number] Attending Physician: Debbie Pope Admitting Physician: AdmtrDebbie [...] Cabrera rded influenza virus vaccine, inactivated 03/06/03 Caberra rded influenza virus vaccine, inactivated 06/05/02 Cabrera [...] 11/27/21 15:04:00 EDT, Route to Pharmacy Electronically, [facility] 3, Partial fill upon patient request if the prescription is for a schedule II opioi... Start Date: 11/27/21 Status: Ordered aspirin 81 mg oral delayed release tablet 81 mg, 1, tablet, By Mouth, Daily, # 30 tablet, Refills 0, Tot. Refills 0, Maintenance, 11/27/21 15:02:00 EDT, Route to Pharmacy Electronically, [facility] 3, Partial fill [...] Team Personnel Name: Isabela Holly RN Position: [facility] RN Member Role: Primary Care Nurse Name: Subha Krishna RN Position: [facility] RN Member Role: Primary Care Nurse Name: Renetta Soriano RN Position: [facility] AMB Nurse Member Role: Primary Care Nurse Name: Riana Puentes Position: [facility] Outreach Member Role: Lifetime Consulting Physician Name: Zenaida Last RN Position: [facility] Nurse Member Role: Primary Care Nurse Name: Shelly Nguyen RN Position: [facility] RN Member Role: Primary Care Nurse Name: Lorena Freeman NP Position: [facility] Associate Professional Member Role: Lifetime Consulting Provider Address: Address: [address] [place], [place] [address]E [facility] [place], [place] [address] Name: Nilsa Gupta RN Position: [facility] AMB Nurse Member Role: Primary Care Nurse Name: Raphael Turner MD Position: [facility] Renal MD Member Role: Lifetime Consulting Physician Address: Address: [address] [place] [address] [address] [facility] [place] [address]- Name: Macie Link DO Position: [facility] Outreach Member Role: PCP Address: Address: [address] [place], [place] [address] Name: Dinh Luo RN Position: [facility] RN Member Role: Primary Care Nurse Name: Britney Burch RN Position: [facility] RN Member Role: Primary Care Nurse Name: Eddie Lala Position: S TA Member Role: Lifetime Consulting Physician Name: Mert Cowan Position: [facility] Associate Professional Member Role: Lifetime Consulting Provider Address: Address: [address] [place] [address] Name: Xenia Bains RN Position: [facility] RN Member Role: Primary Care Nurse Name: Jeffery Diaz MD Position: [facility] Renal MD Member Role: Lifetime Consulting Physician Address: Address: [address] [place] [address] [address] [facility] [place] [place] [address]- Name: Susy Gavin RN Position: [facility] RN Member Role: Primary Care Nurse Name: Jayme Nevarez RN Position: [facility] RN Member Role: Primary Care Nurse Name: Jane Gilmore RN Position: [facility] Onco RN Member Role: Primary Care Nurse Name: Jacki Page RN, I Position: [facility] RN Member Role: Primary Care Nurse Care Team Related Persons Name: PUSHPA OCHOA Address: home [address] [place] [address] Name: MARGARITA TURNER Address: home [address] [address]
--- OUTSIDE RECORDS SUMMARY | 2023-09-18 10:43 | XMS_ITS | Continuity of Care Document ---
Author Organization [facility] Address [address] [place] [address]- Care Team Providers Care Commercial Light Fixture Assembler Name Role Phone Macie Link DO Primary Care Physician Encounter [facility] Date(s): 01/20/23 - 05/06/23 [facility] [address] [place] [address]- Discharge Disposition: A-D/C Home Attending Physician: Cade [...] EDT, Route to Pharmacy Electronically, [facility] 3, Partial fill upon patient request if the prescription is for a schedule II opioi... Start Date: 11/27/21 Status: Ordered aspirin 81 mg oral delayed release tablet 81 mg, 1, tablet, By Mouth, Daily, # 30 tablet, Refills 0, Tot. Refills 0, Maintenance, 11/27/21 15:02:00 EDT, Route to Pharmacy Electronically, [facility] 3, Partial fill upon patient [...] Maintenance, 07/25/2313:26:00 EST, Route to Pharmacy Electronically, [facility] 3, Partial fill upon patientrequest if the [...] 11/10/21 12:44:00 EDT, Route to Pharmacy Electronically, [facility] 3, Partial fill upon patient request if [...] 0 Refills, Maintenance, 09/06/21 14:55:00 EDT, Suspension, [facility], Partial fill upon patient request [...] Team Personnel Name: Isabela Holly RN Position: [facility] RN Member Role: Primary Care Nurse Name: Renetta Soriano RN Position: [facility] Nurse Member Role: Primary Care Nurse Name: Riana Puentes Position: [facility] Outreach Member Role: Lifetime Consulting Physician Name: Zenaida Last RN Position: [facility] Nurse Member Role: Primary Care Nurse Name: Shelly Nguyen RN Position: [facility] RN Member Role: Primary Care Nurse Name: Lorena Freeman NP Position: [facility] Associate Professional Member Role: Lifetime Consulting Provider Address: Address: [address] [place], [place] [address]E [facility] [place], [place] [address] Name: Nilsa Gupta RN Position: [facility] AMB Nurse Member Role: Primary Care Nurse Name: Raphael Turner MD Position: [facility] Renal MD Member Role: Lifetime Consulting Physician Address: Address: [address] [place], [place] [address]E [facility] [place], [place] [address] Name: Macie Link DO Position: [facility] Outreach Member Role: PCP Address: Address: [address] [place] [address] Name: Dinh Luo RN Position: [facility] RN Member Role: Primary Care Nurse Name: Britney Burch RN Position: [facility] RN Member Role: Primary Care Nurse Name: Mert Cowan Position: [facility] Associate Professional Member Role: Lifetime Consulting Provider Address: Address: [address] [place] [address]- Name: Xenia Bains RN Position: [facility] RN Member Role: Primary Care Nurse Name: Jeffery Diaz MD Position: [facility] Renal MD Member Role: Lifetime Consulting Physician Address: Address: [address] [place] [address] [address] [facility] [place] [address]- Name: Susy Gavin RN Position: [facility] RN Member Role: Primary Care Nurse Name: Jayme Nevarez RN Position: [facility] RN Member Role: Primary Care Nurse Name: Jane Gilmore RN Position: [facility] Onco RN Member Role: Primary Care Nurse Name: Jacki Page RN, I Position: [facility] RN Member Role: Primary Care Nurse Name: Cdae Walsh MD Position: [facility] Physician - Oncology Med Service: Hematology & Oncology Member Role: Admitting Physician Address: Address: [address] [place] [address] [place] [address]- Care Team Related Persons Name: PUSHPA OCHOA Address: home [address] [place] [address] Name: MARGARITA TURNER Address: home [address] [address]
--- OUTSIDE RECORDS SUMMARY | 2023-09-18 10:43 | XMS_ITS | Continuity of Care Document ---
Author Organization [facility] Address [address] [place] [address]- Care Team Providers Care Bus Operator Name Role Phone Macie Link DO Primary Care Physician [phone] Encounter [facility] Date(s): 01/21/23 - 04/20/23 [facility] [address] [place] [address]- Attending Physician: Shaheen Wooten MD, Javon Maria [...] 11/27/21 15:04:00 EDT, Route to Pharmacy Electronically, [facility] 3, Partial fill upon patient request if the prescription is for a schedule II opioi... Start Date: 11/27/21 Status: Ordered aspirin 81 mg oral delayed release tablet 81 mg, 1, tablet, By Mouth, Daily, # 30 tablet, Refills 0, Tot. Refills 0, Maintenance, 11/27/21 15:02:00 EDT, Route to Pharmacy Electronically, [facility] 3, Partial fill upon patient [...] Maintenance, 07/25/2313:26:00 EST, Route to Pharmacy Electronically, [facility], Partial fill upon patientrequest [...] 11/10/21 12:44:00 EDT, Route to Pharmacy Electronically, [facility], Partial fill upon patient [...] 0 Refills, Maintenance, 09/06/21 14:55:00 EDT, Suspension, [facility], Partial fill upon patient [...] Team Personnel Name: Isabela Holly RN Position: [facility] RN Member Role: Primary Care Nurse Name: Renetta Soriano RN Position: [facility] Nurse Member Role: Primary Care Nurse Name: Riana Puentes Position: [facility] Outreach Member Role: Lifetime Consulting Physician Name: Zenaida Last RN Position: [facility] Nurse Member Role: Primary Care Nurse Name: Shelly Nguyen RN Position: [facility] RN Member Role: Primary Care Nurse Name: Lorena Freeman NP Position: [facility] Associate Professional Member Role: Lifetime Consulting Provider Address: Address: [address] [place] [address] [address] [facility] [place] [address]- Name: Nilsa Gupta RN Position: [facility] Nurse Member Role: Primary Care Nurse Name: Raphael Turner MD Position: [facility] Renal MD Member Role: Lifetime Consulting Physician Address: Address: [address] [place] [address] [address] [facility] [place] [address]- Name: Macie Link DO Position: [facility] Outreach Member Role: PCP Address: Address: [address] [place] [address]- Name: Dinh Luo RN Position: [facility] RN Member Role: Primary Care Nurse Name: Britney Burch RN Position: [facility] RN Member Role: Primary Care Nurse Name: Mert Cowan Position: [facility] Associate Professional Member Role: Lifetime Consulting Provider Address: Address: [address] [place] [address]- Name: Xenia Bains RN Position: S RN Member Role: Primary Care Nurse Name: Jeffery Diaz MD Position: [facility] Renal MD Member Role: Lifetime Consulting Physician Address: Address: [address] [place] [address] [address] [facility] [place] [place] [address]- Name: Susy Gavin RN Position: S RN Member Role: Primary Care Nurse Name: Jayme Nevarez RN Position: [facility] RN Member Role: Primary Care Nurse Name: Jane Gilmore RN Position: [facility] Onco RN Member Role: Primary Care Nurse Name: Jacki Page RN, I Position: [facility] RN Member Role: Primary Care Nurse Care Team Related Persons Name: PUSHPA OCHOA Address: home [address] [place] [address] Name: JOHNNY MARGARITA Address: home [address] [address]
--- OUTSIDE RECORDS SUMMARY | 2023-09-18 10:43 | XMS_ITS | Continuity of Care Document ---
Author Organization [facility] Address [address] [place] [address]- Care Team Providers Care Community Development Planner Name Role Phone Arcadiosarah LICEAMacie Primary Care Physician [facility]counter [facility] Date(s): 01/25/23 - 05/08/[address] [address] Attending Physician: Javon Jamison Jr, MD Allergies, Adverse [...] 11/27/21 15:04:00 EDT, Route to Pharmacy Electronically, [facility] 3, Partial fill upon patient request if the prescription is for a schedule II opioi... Start Date: 11/27/21 Status: Ordered aspirin 81 mg oral delayed release tablet 81 mg, 1, tablet, By Mouth, Daily, # 30 tablet, Refills 0, Tot. Refills 0, Maintenance, 11/27/21 15:02:00 EDT, Route to Pharmacy Electronically, [facility] 3, Partial fill upon patient request [...] Maintenance, 07/25/2313:26:00 EST, Route to Pharmacy Electronically, [facility], Partial fill upon patientrequest [...] 11/10/21 12:44:00 EDT, Route to Pharmacy Electronically, [facility], Partial fill upon [...] 0 Refills, Maintenance, 09/06/21 14:55:00 EDT, Suspension, [facility], Partial fill upon [...] Personnel Name: Isabela Holly RN Position: [facility] RN Member Role: Primary Care Nurse Name: Renetta Soriano RN Position: [facility] Nurse Member Role: Primary Care Nurse Name: Riana Puentes Position: [facility] Outreach Member Role: Lifetime Consulting Physician Name: Zenaida Last RN Position: [facility] Nurse Member Role: Primary Care Nurse Name: Shelly Nguyen RN Position: [facility] RN Member Role: Primary Care Nurse Name: Lorena Freeman NP Position: [facility] Associate Professional Member Role: Lifetime Consulting Provider Address: Address: [address] [place], [place] [address]E [facility] [place], [place] [address] Name: Nilsa Gupta RN Position: [facility] Nurse Member Role: Primary Care Nurse Name: Raphael Turner MD Position: [facility] Renal MD Member Role: Lifetime Consulting Physician Address: Address: [address] [place], [place] [address] [facility] [place] [address]- Name: Macie Link DO Position: [facility] Outreach Member Role: PCP Address: Address: [address] [place] [address]- Name: Dinh Luo RN Position: [facility] RN Member Role: Primary Care Nurse Name: Britney Burch RN Position: [facility] RN Member Role: Primary Care Nurse Name: Mert Cowan Position: [facility] Associate Professional Member Role: Lifetime Consulting Provider Address: Address: [address] [place] [address]- Name: Xenia Bains RN Position: S RN Member Role: Primary Care Nurse Name: Jeffery Diaz MD Position: [facility] Renal MD Member Role: Lifetime Consulting Physician Address: Address: [address] [place] [address] [address] [facility] [place] [address]- Name: Susy Gavin RN Position: S RN Member Role: Primary Care Nurse Name: Jayme Nevarez RN Position: S RN Member Role: Primary Care Nurse Name: Jane Gilmore RN Position: [facility] Onco RN Member Role: Primary Care Nurse Name: Jacki Page RN, I Position: S RN Member Role: Primary Care Nurse Care Team Related Persons Name: DON PUSHPA Address: home [address] [place] [address] Name: TURNER, MARGARITA Address: home [address] [address]
--- OUTSIDE RECORDS SUMMARY | 2023-09-18 10:44 | XMS_ITS | Continuity of Care Document ---
Author Organization [facility] Address [address] [place] [address]- Care Team Providers Care Alteration Specialist Name Role Phone Macie Link DO Primary Care Physician Encounter [facility] Date(s): 06/24/23 - 09/17/23 [facility] [address] [place] [address] Discharge Disposition: A-D/C Home Attending Physician: Caed Walsh MD Admitting Physician: Cade Walsh MD [...] 11/27/21 15:04:00 EDT, Route to Pharmacy Electronically, [facility], Partial fill upon patient request if the prescription is for a schedule II opioi... Start Date: 11/27/21 Status: Ordered aspirin 81 mg oral delayed release tablet 81 mg, 1, tablet, By Mouth, Daily, # 30 tablet, Refills 0, Tot. Refills 0, Maintenance, 11/27/21 15:02:00 EDT, Route to Pharmacy Electronically, [facility] 3, Partial fill upon patient [...] Maintenance, 07/25/2313:26:00 EST, Route to Pharmacy Electronically, [facility], Partial fill upon patientrequest [...] 11/10/21 12:44:00 EDT, Route to Pharmacy Electronically, [facility], Partial fill upon patient [...] 14:55:00 EDT, Suspension, [facility], Partial fill upon patient request if [...] recent to oldest [Reference Range]: 1 Height 167.64 cm (07/18/23 1:00 PM) Weight 88.1 kg (07/18/23 1:00 PM) Oxygen Saturation [94-100 %] 96 % (07/18/23 1:00 PM) Pulse Rate [55-90 bpm] 65 bpm (07/18/23 1:00 PM) Body Mass Index [18.5-24.99 kg/m2] 31.35 kg/m2 *>HHI* (07/18/23 1:00 PM) Blood Pressure [90-138/55-84 mm Hg] 116/ 68mm Hg (07/18/23 1:00 PM) Temperature [96.8-100.4 DegF] 97.8 DegF (07/18/23 1:00 PM) Mode of Delivery (Oxygen) Room air (07/18/23 1:00 PM) Blood pressure sites Arm, right (07/18/23 1:00 PM) Temperature Route Temporal (07/18/23 1:00 PM) Dry Weight 88.1 kg (07/18/23 1:00 PM) Weight Obtained Via Standing scale (07/18/23 1:00 PM) Dry Weight Obtained Via Standing scale (07/18/23 1:00 PM) Social History Social History Type Response Smoking Status Never (less than 100 in lifetime) entered on: 06/21/23 Sex Note * Maricruz Stone: PERFORM, SIGN, VERIFY Event Display: Patient Education/Instruction Authored Date: [id number] [facility] *Heme/Onc Adult Clinical Summary Name TIO TURNER Age 62 Years 1960 PCP Macie Link DO PCP Visit Date 06/24/2023 09:42:00 Additional Instructions: Scheduled Appointments?? Future Appointments ?*[facility] ?[address] ?[place],??[place],??[address] ?Phone:??--?Fax:??-- ?Appt. Date:??09/20/2023?9:00 AM ?Scheduled Provider:??Janette SALTER, Stella Romero [facility] ?Phone:??--?Fax:??-- ?Appt. Date:??10/07/2023?3:30 PM ?Scheduled Provider:??Shaheen Wooten MD, Javon Maria Follow-Up Instructions ?? With: Address: When: Cade Walsh [address] [facility], [place] [id number] [facility] (1) 01/16/2024 1:30 AM Diagnosis Medications: Please continue your medications until treatment is completed or stopped by your provider. Discuss any questions related to medications with your provider. Medications to Continue with No Changes These medications were not printed or sent to your pharmacy Albuterol (Albuterol 0.083% inhalation codi) Inhalation every 4 hours as needed Wheezing/Shortness of Breath. not sure of dosage,. Next Dose: Amlodipine (amLODIPine 10 mg oral tablet) 1 tab(s) Oral Daily. Refills: 0. Next Dose: apixaban (Eliquis 5 mg oral tablet) 1 tab(s) Oral twice a day. not sure of dosage. Next Dose: Aspirin (aspirin 81 mg oral delayed release tablet) 1 tab(s) Oral Daily. Refills: 0. Next Dose: Carvedilol (carvedilol 25 mg oral tablet) TAKE 1 TABLET BY MOUTH TWICE DAILY IN THE MORNING AND IN THE EVENING WITH FOOD. Next Dose: Clonazepam (clonazePAM 1 mg oral tablet) TAKE 1 TABLET BY MOUTH TWICE DAILY. Next Dose: Colchicine (colchicine 0.6 mg oral tablet) 0.5 tab(s) Oral Daily. Refills: 0. Next Dose: Colchicine (colchicine 0.6 mg oral tablet) 0.5 tab(s) Oral twice a day. Next Dose: hydrALAZINE (hydrALAZINE 25 mg oral tablet) 3 tab(s) Oral 3 times a day. Refills: 0. Next Dose: Insulin Glargine (Lantus 100 u/ml subcutaneous solution) 25 unit(s) Subcutaneous Infusion Daily. Next Dose: Levothyroxine (levothyroxine 0.112 mg oral tablet) TAKE 1 TABLET BY MOUTH EVERY MORNING ON AN EMPTYSTOMACH. Next Dose: Omeprazole (omeprazole 40 mg oral enteric coated capsule) 1 capsule Oral twice a day. TAKE 1 CAPSULE BY MOUTH EVERY MORNING BEFORE A MEAL. Refills: 0. Next Dose: Oxycodone / Acetaminophen (acetaminophen-oxycodone 325 mg-10 mg oral tablet) TAKE 1 TABLET BY MOUTHEVERY 4 HOURS NEEDED FOR SEVERE PAIN (7-10 ON PAIN SCALE). Next Dose: Rosuvastatin 40 Milligram Oral Daily. Next Dose: Zolpidem (zolpidem 10 mg oral tablet) TAKE 1 TABLET BY MOUTH AT BEDTIME. Next Dose: Allergy Info:?? NKA Medications Given This Visit Future Orders ?No future orders Vital Signs Height 167.64 cm Weight 88.1 kg BMI 31.35 kg/m2 Blood Pressure 116 mm Hg/68 mm Hg Temperature 97.8 DegF Pulse Rate 65 bpm Respiratory Rate 02 Sat Mode of Delivery 96 %/Room air You can now view a summary of your hospital visit from the comfort of your home through a free online portal called [employer]. [employer] is a website that allows you to securely view your medical information including discharge summary, medications and follow-up visits. ??You can alsosend a secure electronic message to your doctor???s office to request appointments, renew medications or just ask a question. You can enroll at [email or web address] or register during your next office [...] your primary care provider or pharmacist, as appropriate. ??This information is not intended to serve as substitution for assessment and evaluation by a qualified health care provider. If you do not have a primary care provider, you may find a [facility] provider by calling [facility] [employer] [facility] at [phone]. [facility], in keeping with [facility] guidance, no longer requires face masks for staff, patientsor visitors in most situations. Similar to time spent indoors at other locations, there is the chance that you were exposed to respiratory viruses during your time with us (such as flu or COVID-19).? If you develop symptoms concerning for a viral respiratory infection, please seek testing (and treatment if indicated) from your medical provider or home test kit. For information about the plan of care including goals and instructions for your diagnosis, please see the patient education orders section of this document. Patient Education Materials?? The content of this educational material or handout may have been modified, supplemented, or adapted from its original content and format to support your individualized medical care. Patient Care team information Care Team Personnel Name: Isabela Holly RN Position: [facility] RN Member Role: Primary Care Nurse Name: Subha Krishna RN Position: [facility] RN Member Role: Primary Care Nurse Name: Renetta Soriano RN Position: [facility] AMB Nurse Member Role: Primary Care Nurse Name: iRana Puentes Position: [facility] Outreach Member Role: Lifetime Consulting Physician Name: Zenaida Last RN Position: [facility] AMB Nurse Member Role: Primary Care Nurse Name: Shelly Nguyen RN Position: [facility] RN Member Role: Primary Care Nurse Name: Lorena Freeman NP Position: [facility] Associate Professional Member Role: Lifetime Consulting Provider Address: Address: [address] [place] [address] [address] [facility] [place] [address]- [place] Name: Nilsa Gupta RN Position: [facility] AMB Nurse Member Role: Primary Care Nurse Name: Raphael Turner MD Position: [facility] Renal MD Member Role: Lifetime Consulting Physician Address: Address: [address] [facility] [address] [facility] [place] [address]- [place] Name: Macie Link DO Position: [facility] Outreach Member Role: PCP Address: Address: [address] [place] [address]- [place] Name: Dinh Luo RN Position: [facility] RN Member Role: Primary Care Nurse Name: Britney Burch RN Position: [facility] RN Member Role: Primary Care Nurse Name: Jane Persaud RN Position: [facility] Onco RN Member Role: Primary Care Nurse Name: Mert Cowan Position: [facility] Associate Professional Member Role: Lifetime Consulting Provider Address: Address: [address] [place] [address]- [place] Name: Xenia Bains RN Position: [facility] RN Member Role: Primary Care Nurse Name: Jeffery Diaz MD Position: [facility] Renal MD Member Role: Lifetime Consulting Physician Address: Address: [address] [place] [address] [address] [facility] [place] [address]- [place] Name: Susy Gavin RN Position: [facility] RN Member Role: Primary Care Nurse Name: Jayme Nevarez RN Position: [facility] RN Member Role: Primary Care Nurse Name: Jacki Page RN, I Position: [facility] RN Member Role: Primary Care Nurse Name: Cade Walsh MD Position: [facility] Physician - Oncology Med Service: Hematology & Oncology Member Role: Admitting Physician Address: Address: [address] [place] [address] [place] [address]- [place] Care Team Related Persons Name: PUSHPA OCHOA Address: home [address] [place] [address] Name: MARGARITA TURNER Address: home [address] [address]
--- OUTSIDE RECORDS SUMMARY | 2023-09-18 10:44 | XMS_ITS | Continuity of Care Document ---
Author Organization [facility] ter Address [address] [place] [address]- Care Team Providers Care Outreach Counselor Name Role Phone Macie Link DO Primary Care Physician Encounter [facility] Date(s): 09/09/22 - 02/20/[address] [address] Attending Physician: Javon Jamison [...] 11/27/21 15:04:00 EDT, Route to Pharmacy Electronically, [facility] 3, Partial fill upon patient request if the prescription is for a schedule II opioi... Start Date: 11/27/21 Status: Ordered aspirin 81 mg oral delayed release tablet 81 mg, 1, tablet, By Mouth, Daily, # 30 tablet, Refills 0, Tot. Refills 0, Maintenance, 11/27/21 15:02:00 EDT, Route to Pharmacy Electronically, [facility] 3, Partial fill upon patient request if [...] Maintenance, 07/25/2313:26:00 EST, Route to Pharmacy Electronically, [facility], Partial fill upon patientrequest [...] 11/10/21 12:44:00 EDT, Route to Pharmacy Electronically, [facility], Partial fill upon patient [...] 0 Refills, Maintenance, 09/06/21 14:55:00 EDT, Suspension, [facility], Partial fill upon patient [...] pain Confirmed Active Sleep apnea Confirmed Active Note * Event Display: Adult Preadmission Health Questionnaire Authored Date: Patient Care team information Care Team Personnel Name: Isabela Holly RN Position: [facility] RN Member Role: Primary Care Nurse Name: Subha Krishna RN Position: [facility] RN Member Role: Primary Care Nurse Name: Renetta Soriano RN Position: [facility] Nurse Member Role: Primary Care Nurse Name: Riana Puentes Position: [facility] Outreach Member Role: Lifetime Consulting Physician Name: Zenaida Last RN Position: [facility] Nurse Member Role: Primary Care Nurse Name: Shelly Nguyen RN Position: [facility] RN Member Role: Primary Care Nurse Name: Lorena Freeman NP Position: [facility] Associate Professional Member Role: Lifetime Consulting Provider Address: Address: [address] [place] [address] [address] [facility] [place], [place] [address] Name: Nilsa Gupta RN Position: [facility] AMB Nurse Member Role: Primary Care Nurse Name: Raphael Turner MD Position: [facility] Renal MD Member Role: Lifetime Consulting Physician Address: Address: [address] [place] [address] [address] [facility] [place] [address]- Name: Macie Link DO Position: [facility] Outreach Member Role: PCP Address: Address: [address] [place], [place] [address] Name: Dinh Luo RN Position: [facility] RN Member Role: Primary Care Nurse Name: Britney Burch RN Position: [facility] RN Member Role: Primary Care Nurse Name: Eddie Lala Position: [facility] TA Member Role: Lifetime Consulting Physician Name: Mert Cowan Position: [facility] Associate Professional Member Role: Lifetime Consulting Provider Address: Address: [address] [place] [address] Name: Xenia Bains RN Position: [facility] RN Member Role: Primary Care Nurse Name: [place] Diaz MD Position: [facility] Renal MD Member Role: Lifetime Consulting Physician Address: Address: [address] [place] [address] [address] [facility] [place] [address]- Name: Susy Gavin RN Position: [facility] RN Member Role: Primary Care Nurse Name: Jayme Nevarez RN Position: [facility] RN Member Role: Primary Care Nurse Name: Jane Gilmore RN Position: [facility] Onco RN Member Role: Primary Care Nurse Name: Jacki Page RN, I Position: [facility] RN Member Role: Primary Care Nurse Care Team Related Persons Name: PUSHPA OCHOA Address: home [address] [place] [address] Name: MARGARITA TURNER Address: home [address] [address]
--- OUTSIDE RECORDS SUMMARY | 2023-09-18 10:44 | XMS_ITS | Continuity of Care Document ---
Author Organization [facility] Address [address] [place] [address]- Care Team Providers Care Air And Water Filler Name Role Phone Macie Link DO Primary Care Physician Encounter [facility] Date(s): 06/21/23 - 07/21/23 [facility] [address] [place] [address]- Attending Physician: AdmDebbie carrington Admitting Physician: Admtr, Ar8 Referring Physician: Admtr, Ar8 Allergies, Adverse Reactions, [...] 03/02/11 Cabrera rded influenza virus vaccine, inactivated 9/23/10 Cabrera rded influenza virus vaccine, inactivated 04/13/06 [...] 11/27/21 15:04:00 EDT, Route to Pharmacy Electronically, [facility] 3, Partial fill upon patient request if the prescription is for a schedule II opioi... Start Date: 11/27/21 Status: Ordered aspirin 81 mg oral delayed release tablet 81 mg, 1, tablet, By Mouth, Daily, # 30 tablet, Refills 0, Tot. Refills 0, Maintenance, 11/27/21 15:02:00 EDT, Route to Pharmacy Electronically, [facility] 3, Partial fill upon patient request [...] Maintenance, 07/25/2313:26:00 EST, Route to Pharmacy Electronically, [facility], Partial fill upon patientrequest [...] 11/10/21 12:44:00 EDT, Route to Pharmacy Electronically, [facility], Partial fill upon patient [...] 0 Refills, Maintenance, 09/06/21 14:55:00 EDT, Suspension, [facility], Partial fill upon patient [...] 100 in lifetime) entered on: 06/21/23 Sex Cardiology * Event Display: Cardiology Office Note, Non- Authored Date: Patient Care team information Care Team Personnel Name: Isabela Holly RN Position: [facility] RN Member Role: Primary Care Nurse Name: Subha Krishna RN Position: [facility] RN Member Role: Primary Care Nurse Name: Renetta Soriano RN Position: [facility] Nurse Member Role: Primary Care Nurse Name: Riana Puentes Position: [facility] Outreach Member Role: Lifetime Consulting Physician Name: Zenaida Last RN Position: [facility] AMB Nurse Member Role: Primary Care Nurse Name: Shelly Nguyen RN Position: [facility] RN Member Role: Primary Care Nurse Name: Lorena Freeman NP Position: [facility] Associate Professional Member Role: Lifetime Consulting Provider Address: Address: [address] [facility] [address] [facility] [place], [place] [address] Name: Nilsa Gupta RN Position: [facility] AMB Nurse Member Role: Primary Care Nurse Name: Raphael Turner MD Position: [facility] Renal MD Member Role: Lifetime Consulting Physician Address: Address: [address] [facility] [address] [facility] [place], [place] [address] Name: Macie Link DO Position: [facility] Outreach Member Role: PCP Address: Address: [address] [place] [address]- [place] Name: Dinh Luo RN Position: S RN Member Role: Primary Care Nurse Name: Britney Burch RN Position: S RN Member Role: Primary Care Nurse Name: Mert Cowna Position: [facility] Associate Professional Member Role: Lifetime Consulting Provider Address: Address: [address] [place] [address]- Name: Xenia Bains RN Position: S RN Member Role: Primary Care Nurse Name: [place] Diaz MD Position: [facility] Renal MD Member Role: Lifetime Consulting Physician Address: Address: [address] [place] [address] [address] [facility] [place] [address]- [place] Name: Susy Gavin RN Position: S RN Member Role: Primary Care Nurse Name: Jayme Nevarez RN Position: S RN Member Role: Primary Care Nurse Name: Jane Gilmore RN Position: [facility] Onco RN Member Role: Primary Care Nurse Name: Jacki Page RN, I Position: S RN Member Role: Primary Care Nurse Care Team Related Persons Name: ODN PUSHPA Address: home [address] [place] [address] Name: MARGARITA TURNER Address: home [address] [address]
--- OUTSIDE RECORDS SUMMARY | 2023-09-18 10:44 | XMS_ITS | Continuity of Care Document ---
Author Organization [facility] ter Address [address] [place] [address]- Care Team Providers Care Pmp Project Manager Name Role Phone Macie Link DO Valarie Primary Care Physician Encounter [facility] Date(s): 01/03/23 - 02/23/[address] [address] Attending Physician: Javon Jamison Jr, [...] 11/27/21 15:04:00 EDT, Route to Pharmacy Electronically, [facility] 3, Partial fill upon patient request if the prescription is for a schedule II opioi... Start Date: 11/27/21 Status: Ordered aspirin 81 mg oral delayed release tablet 81 mg, 1, tablet, By Mouth, Daily, # 30 tablet, Refills 0, Tot. Refills 0, Maintenance, 11/27/21 15:02:00 EDT, Route to Pharmacy Electronically, [facility] 3, Partial fill upon patient request [...] Maintenance, 07/25/2313:26:00 EST, Route to Pharmacy Electronically, [facility], Partial fill upon patientrequest [...] 11/10/21 12:44:00 EDT, Route to Pharmacy Electronically, [facility], Partial fill upon [...] 0 Refills, Maintenance, 09/06/21 14:55:00 EDT, Suspension, [facility], Partial fill upon [...] Team Personnel Name: Isabela Holly RN Position: [facility] RN Member Role: Primary Care Nurse Name: Subha Krishna RN Position: [facility] RN Member Role: Primary Care Nurse Name: Renetta Soriano RN Position: [facility] Nurse Member Role: Primary Care Nurse Name: Riana Puentes Position: [facility] Outreach Member Role: Lifetime Consulting Physician Name: Zenaida Last RN Position: [facility] Nurse Member Role: Primary Care Nurse Name: Shelly Nguyen RN Position: [facility] RN Member Role: Primary Care Nurse Name: Lorena Freeman NP Position: [facility] Associate Professional Member Role: Lifetime Consulting Provider Address: Address: [address] [place] [address] [address] [facility] [place], [place] [address] Name: Nilsa Gupta RN Position: [facility] AMB Nurse Member Role: Primary Care Nurse Name: Raphael Turner MD Position: [facility] Renal MD Member Role: Lifetime Consulting Physician Address: Address: [address] [place] [address] [address] [facility] [place], [place] [address] Name: Macie Link DO Position: [facility] Outreach Member Role: PCP Address: Address: [address] [place], [place] [address] Name: Dinh Luo RN Position: [facility] RN Member Role: Primary Care Nurse Name: Britney Burch RN Position: [facility] RN Member Role: Primary Care Nurse Name: Mert Cowan Position: [facility] Associate Professional Member Role: Lifetime Consulting Provider Address: Address: [address] [place] [address]- Name: Xenia Bains RN Position: S RN Member Role: Primary Care Nurse Name: [place] Diaz MD Position: [facility] Renal MD Member Role: Lifetime Consulting Physician Address: Address: [address] [place] [address] [address] [facility] [place] [address]- Name: Susy Gavin RN Position: S RN Member Role: Primary Care Nurse Name: Jayme Nevarez RN Position: [facility] RN Member Role: Primary Care Nurse Name: Jane Gilmore RN Position: [facility] Onco RN Member Role: Primary Care Nurse Name: Jacki Page RN, I Position: [facility] RN Member Role: Primary Care Nurse Care Team Related Persons Name: DON PUSHPA Address: home [address] [place] [address] Name: MARGARITA TURNER Address: home [address] [address]
--- OUTSIDE RECORDS SUMMARY | 2023-09-18 10:44 | XMS_ITS | Continuity of Care Document ---
Author Organization [facility] Address [address] [place] [address]- Care Team Providers Care [employer] Name Role Phone Macie Link DO Primary Care Physician Encounter [facility] Date(s): 06/24/23 - 07/24/23 [facility] [address] [place] [id number] Attending Physician: Debbie Pope Admitting Physician: Debbie Pope Referring Physician: AdmtrDebbie Allergies, Adverse Reactions, Alerts [...] 02/28/15 Cabrera rded influenza virus vaccine, inactivated 11/5/14 Cabrera rded influenza virus vaccine, inactivated 03/02/11 [...] 11/27/21 15:04:00 EDT, Route to Pharmacy Electronically, [facility], Partial fill upon patient request if the prescription is for a schedule II opioi... Start Date: 11/27/21 Status: Ordered aspirin 81 mg oral delayed release tablet 81 mg, 1, tablet, By Mouth, Daily, # 30 tablet, Refills 0, Tot. Refills 0, Maintenance, 11/27/21 15:02:00 EDT, Route to Pharmacy Electronically, [facility], Partial fill upon patient [...] Maintenance, 07/25/2313:26:00 EST, Route to Pharmacy Electronically, [facility], Partial fill upon patientrequest if the [...] Route to Pharmacy Electronically, [facility] 3, Partial fill upon patient request [...] 09/06/21 14:55:00 EDT, Suspension, [facility] 3, Partial fill upon patient request [...] Team Personnel Name: Isabela Holly RN Position: [facility] RN Member Role: Primary Care Nurse Name: Subha Krishna RN Position: [facility] RN Member Role: Primary Care Nurse Name: Renetta Soriano RN Position: [facility] Nurse Member Role: Primary Care Nurse Name: Riana Puentes Position: [facility] Outreach Member Role: Lifetime Consulting Physician Name: Zenaida Last RN Position: [facility] Nurse Member Role: Primary Care Nurse Name: Shelly Nguyen RN Position: [facility] RN Member Role: Primary Care Nurse Name: Lorena Freeman NP Position: [facility] Associate Professional Member Role: Lifetime Consulting Provider Address: Address: [address] [place] [address] [address] [facility] [place], [place] [address] Name: Nilsa Gupta RN Position: [facility] Nurse Member Role: Primary Care Nurse Name: Raphael Turner MD Position: [facility] Renal MD Member Role: Lifetime Consulting Physician Address: Address: [address] [place] [address] [address] [facility] [place], [place] [address] Name: Macie Link DO Position: [facility] Outreach Member Role: PCP Address: Address: [address] [place] [address]- [place] Name: Dinh Luo RN Position: S RN Member Role: Primary Care Nurse Name: Britney Burch RN Position: S RN Member Role: Primary Care Nurse Name: Mert Cowan Position: [facility] Associate Professional Member Role: Lifetime Consulting Provider Address: Address: [address] [place] [address]- Name: Xenia Bains RN Position: S RN Member Role: Primary Care Nurse Name: Jeffery Diaz MD Position: [facility] Renal MD Member Role: Lifetime Consulting Physician Address: Address: [address] [place] [address] [address] [facility] [place] [address]- Name: Susy Gavin RN Position: S RN Member Role: Primary Care Nurse Name: Jayme Nevarez RN Position: S RN Member Role: Primary Care Nurse Name: Jane Gilmore RN Position: [facility] Onco RN Member Role: Primary Care Nurse Name: Jacki Page RN, I Position: S RN Member Role: Primary Care Nurse Care Team Related Persons Name: PUSHPA OCHOA Address: home [address] [place] [address] Name: MARGARITA TURNER Address: home [address] [address]
--- OUTSIDE RECORDS SUMMARY | 2023-09-18 10:44 | XMS_ITS | Continuity of Care Document ---
Author Organization [facility] Address [address] [place] [address]- Care Team Providers Care Nodulizer Name Role Phone Macie Link DO Primary Care Physician Encounter [facility] Date(s): 04/13/23 - 08/11/[address] [address]- Attending Physician: Lizbet Hayes MD Admitting Physician: Lizbet Hayes MD Referring Physician: Macie Link DO Allergies, [...] 11/27/21 15:04:00 EDT, Route to Pharmacy Electronically, [facility], Partial fill upon patient request if the prescription is for a schedule II opioi... Start Date: 11/27/21 Status: Ordered aspirin 81 mg oral delayed release tablet 81 mg, 1, tablet, By Mouth, Daily, # 30 tablet, Refills 0, Tot. Refills 0, Maintenance, 11/27/21 15:02:00 EDT, Route to Pharmacy Electronically, [facility], Partial fill upon patient request if [...] Maintenance, 07/25/2313:26:00 EST, Route to Pharmacy Electronically, [facility], Partial fill upon patientrequest if the [...] 12:44:00 EDT, Route to Pharmacy Electronically, [facility], Partial fill upon patient request if [...] Refills, Maintenance, 09/06/21 14:55:00 EDT, Suspension, [facility] 3, Partial fill upon patient request [...] Team Personnel Name: Isabela Holly RN Position: [facility] RN Member Role: Primary Care Nurse Name: Subha Krishna RN Position: [facility] RN Member Role: Primary Care Nurse Name: Renetta Soriano RN Position: [facility] Nurse Member Role: Primary Care Nurse Name: Riana Puentes Position: [facility] Outreach Member Role: Lifetime Consulting Physician Name: Zenaida Last RN Position: [facility] Nurse Member Role: Primary Care Nurse Name: Shelly Nguyen RN Position: [facility] RN Member Role: Primary Care Nurse Name: Lorena Freeman NP Position: [facility] Associate Professional Member Role: Lifetime Consulting Provider Address: Address: [address] [place] [address] [address] [facility] [place], [place] [address] Name: Nilsa Gupta RN Position: [facility] Nurse Member Role: Primary Care Nurse Name: Raphael Turner MD Position: [facility] Renal MD Member Role: Lifetime Consulting Physician Address: Address: [address] [place] [address] [address] [facility] [place], [place] [address] Name: Macie Link DO Position: [facility] Outreach Member Role: PCP Address: Address: [address] [place] [address]- [place] Name: Dinh Luo RN Position: S RN Member Role: Primary Care Nurse Name: Britney Burch RN Position: S RN Member Role: Primary Care Nurse Name: Mert Cowan Position: [facility] Associate Professional Member Role: Lifetime Consulting Provider Address: Address: [address] [place] [address]- Name: Xenia Bains RN Position: S RN Member Role: Primary Care Nurse Name: Jeffery Diaz MD Position: [facility] Renal MD Member Role: Lifetime Consulting Physician Address: Address: [address] [place] [address] [address] [facility] [place] [address]- Name: Susy Gavin RN Position: S RN Member Role: Primary Care Nurse Name: Jayme Nevarez RN Position: S RN Member Role: Primary Care Nurse Name: Jane Gilmore RN Position: [facility] Onco RN Member Role: Primary Care Nurse Name: Jacki Page RN, I Position: S RN Member Role: Primary Care Nurse Care Team Related Persons Name: PUSHPA OCHOA Address: home [address] [place] [address] Name: MARGARITA TURNER Address: home [address] [address]
[2023-09-18 10:48] VITALS: BP 136/69; PULSE 70; TEMP 37.2; O2SAT 97
--- NOTE | 2023-09-18 10:51 | ED_ITS ---
HPI - General Adult General Chief complaint: General Medical Stated complaint: R leg pain Time Seen by Provider: 09/18/23 10:35 Source: patient and family ( significant other) Mode of arrival: ambulatory Limitations: no limitations History of Present Illness HPI narrative: 62-year-old male with pertinent history of CKD on dialysis MWF last dialysis was Tuesday a full session of dialysis, CVA, CAD s/p NSTEMI, HTN, dm, AFib on apixaban presented with 2 days of right groin pain that is not relieved by Percocet that the patient normally takes for his chronic pain, patient declined any fall or sprain of his leg, No prolonged immobilization, no recent travel, no lower extremity swelling or tenderness. Related Data Home Medications ?Medication ?Instructions ?Recorded ?Confirmed albuterol sulfate 90 mcg/actuation 2 puff PO Q6H PRN Shortness Of 11/25/21 08/25/23 aerosol inhaler (ProAir HFA) Breath blood sugar diagnostic (FreeStyle 11/25/21 02/21/23 Lite Strips) insulin glargine 100 unit/mL (3 25 unit subcut DAILY 11/25/21 08/25/23 mL) subcutaneous pen (Lantus Solostar U-100 Insulin) ipratropium bromide 21 mcg (0.03 2 spray intranasal TID 11/25/21 08/25/23 %) nasal spray pen needle, diabetic 32 gauge x 11/25/21 02/21/23 5/32 (Pentips) levothyroxine 112 mcg tablet 112 mcg PO DAILY@0600 12/16/21 08/25/23 omeprazole 40 mg capsule,delayed 40 mg PO BID 12/16/21 08/25/23 release zolpidem 10 mg tablet 10 mg PO BEDTIME 12/16/21 06/02/23 clonazepam 1 mg tablet 1 mg PO BID 03/31/22 08/25/23 oxycodone-acetaminophen 10 mg-325 1 tab PO Q4H PRN severe pain 03/31/22 06/21/23 mg tablet gabapentin 100 mg capsule 100 mg PO BID 11/02/22 08/25/23 amiodarone 200 mg tablet 200 mg PO DAILY 09/18/23 atorvastatin 80 mg tablet 80 mg PO BEDTIME 09/18/23 clotrimazole 1 % topical cream 1 appl topical BID 09/18/23 insulin aspart U-100 100 unit/mL 1 sliding scale dose subcut TIDAC 09/18/23 (3 mL) subcutaneous pen (Novolog FlexPen U-100 Insulin aspart) lidocaine 5 % topical patch 1 patch topical DAILY 09/18/23 sevelamer carbonate 800 mg tablet 1,600 mg PO TIDWM 09/18/23 Previous Rx's ?Medication ?Instructions ?Recorded amlodipine 10 mg tablet 10 mg PO DAILY #60 tabs 12/16/21 nitroglycerin 0.4 mg sublingual 0.4 mg sublingual Q5M PRN chest 07/08/22 tablet pain #20 tabs carvedilol 12.5 mg tablet 12.5 mg PO BID #60 tabs 05/25/23 apixaban 5 mg tablet (Eliquis) 5 mg PO BID #60 tabs 06/27/23 Allergies Allergy/AdvReac Type Severity Reaction Status Date / Time No Known Allergies Allergy Verified 09/18/23 10:17 Review of Systems 2 Review of Systems: All other systems are reviewed and are negative Constitutional: Reports as per HPI and Reports no additional constitutional complaints Eyes: Reports as per HPI and Reports no additional eye complaints Reports system reviewed and no additional complaints, except as documented Cardiovascular: Reports as per HPI and Reports no additional cardiovascular complaints Respiratory: Reports as per HPI and Reports no additional respiratory complaints Gastrointestinal: Reports as per HPI and Reports no additional gastrointestinal complaints Genitourinary: Reports no additional female genitourinary complaints Musculoskeletal: Reports no additional musculoskeletal complaints Skin/Breast: Reports system reviewed and no additional complaints, except as docu Psychiatric: Reports no additional psychiatric complaints Endocrine: Reports no additional endocrine complaints Hematologic/Lymphatic: Reports no additional hematologic/lymphatic complaints Allergic/Immunologic: Reports no additional allergic/immunologic complaints Reports system reviewed and no additional complaints, except as documented and Reports Abnormal speech present [facility] Past Medical History Medical History History of cardioversion Hx of sleep apnea GERD (gastroesophageal reflux disease) Atrial flutter Colon adenomas Asthma Colon cancer screening End stage renal disease Type 2 diabetes mellitus with unspecified complications Essential hypertension Normocytic anemia Non-cardiac chest pain CAD (coronary artery disease) CVA (cerebral vascular accident) Hypertension Surgical History History of colonoscopy H/O neck surgery Hx of colonoscopy History of bladder surgery Stented coronary artery History of nephrectomy Family History Family History Other No family history of coronary artery disease Social History Social History Are you a primary childcare teacher to a significant other at home: No Do you presently have visiting nurse or other home services: 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, 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) Alcohol intake: former Patient Tobacco Use Status: Former Tobacco user Quit Date: 35 yrs ago Tobacco use type: Cigarette Smoked in Last 30 Days: No Use of substances other than those prescribed or required for medical reasons: No Advance Directives: No Advance Directives Information Provided: No service: No Current occupational status: disabled Physical Exam ED Vital Signs: Vital Signs - 24 hr 09/18/23 10:15 09/18/23 10:48 09/18/23 12:25 Temperature 98 F 99 F Pulse Rate 75 70 68 Respiratory Rate 18 12 Blood Pressure 132/62 136/69 147/70 H Pulse Oximetry 98 97 97 Oxygen Delivery Method Room Air Room Air Room Air BMI result Body Mass Index 30.8 Vital signs have been reviewed and appear to be correct. Blood pressure elevated. Heart rate normal. Respiratory rate normal. Temperature normal. Oxygen saturation normal. Appearance: Alert. Oriented X3. No acute distress. Head: Normal external exam. Normocephalic. Atraumatic. No Del Castillo signs noted. No raccoon eyes noted Eyes: PERRLA. EOMI. Conjunctiva and sclera normal. Eyelids normal. ENT: TM's Normal. Pharynx normal. Uvula midline. Moist mucous membranes. No trismus noted. No drooling noted. No muffled voice noted. Neck: Normal inspection. Neck supple. FROM. No adenopathy. Thyroid Normal. No meningeal signs. No neck mass noted. CVS: Normal heart rate and rhythm. Heart sound normal. No murmurs noted. Pulses normal throughout. Respiratory: No respiratory distress. Painless inspiration. Breath sounds normal. No wheezes/rales/rhonchi noted. Chest nontender. No accessory muscle usage noted or decreased air movement noted. Abdomen: Soft and nontender. Bowel sounds normal in all 4 quadrants. No distention noted. No organomegaly noted. No visible injury noted. Back: No CVA tenderness. Full range of motion noted. Skin: Skin warm and dry. Normal skin color. Normal skin turgor. No rashes/lesions/lacerations noted. Extremities: pt of tenderness over right inguinal ligament Neuro: Oriented X 3. Cranial nerve exam: II-XII are grossly intact No motor deficit. No sensory deficit. Reflexes normal. Course Reevaluation(s) Reevaluation #1: 1. right groin pain for 3 days physical exam is consistent with inguinal ligament sprain, ultrasound is unremarkable for DVT, CT of the abdomen pelvis unremarkable for incarcerated hernia. 2. Hyperkalemia with mild EKG changes T-wave is more pronounced in V2, V3, V4 that is changed from previous EKG, patient was given calcium, bicarb, and Lokelma and the case was discussed with Dr. Brito who will arrange for dialysis today. Case discussed with Dr. Duenas who is accepting the patient to get the dialysis as an inpatient. Time: 13:58 Medications Administered Discontinued Medications Generic Name Dose Route Start Last Admin Trade Name Freq PRN Reason Stop Dose Admin Hydromorphone HCl 2 mg 09/18/23 10:52 09/18/23 11:12 Hydromorphone Hcl 2 Mg/Ml Vial IM 09/18/23 10:53 2 mg ONCE ONE Administration Protocol Calcium Gluconate 1 gm in 50 mls @ 50 mls/hr 09/18/23 11:55 09/18/23 13:33 Calcium Gluconate IV 09/18/23 12:54 Infused ONCE ONE Infusion Ketorolac Tromethamine 30 mg 09/18/23 10:52 09/18/23 11:11 Ketorolac Tromethamine 30 Mg/Ml Vial IM 09/18/23 10:53 30 mg ONCE ONE Administration Sodium Bicarbonate 50 meq 09/18/23 11:55 09/18/23 12:15 Sodium Bicarbonate 8.4% 50 Meq/50 Ml Syringe IVPUSH 09/18/23 11:56 50 meq ONCE ONE Administration Sodium Zirconium Cyclosilicate 10 gm 09/18/23 11:55 09/18/23 12:14 Sodium Zirconium Cyclosilicate 10 Gm Powd.Pack PO 09/18/23 11:56 10 gm ONCE ONE Administration Medical Decision Making Differential Diagnosis Differential Diagnoses: The differential diagnosis associated with the presentation includes ( Incarcerated right inguinal hernia, inguinal ligament sprain, DVT, hip fracture, hyperkalemia, EKG changes, emergent dialysis, severe anemia, electrolyte derangement.) Admission/Observation Consideration of admission/observation: Escalation of care including admission/observation considered Consult Healthcare Provider Management of the patient was discussed with: Hospitalist ( Dr. Duran) and Media Relations Specialist (Dr. Garcia) Lab Data MDM Lab Attestation statement: I reviewed the patient's lab results. 09/18/23 11:06 09/18/23 11:06 Labs: Lab Results 09/18/23 Range/Units 11:06 WBC 7.6 (4.8-10.8) X10*3/uL RBC 3.88 L (4.60-5.80) X10*6/uL Hgb 11.9 L (14.0-18.0) g/dl Hct 35.1 L (42.0-52.0) % MCV 90.5 (80.0-98.0) fL MCH 30.7 (27.0-33.0) pg MCHC 33.9 (31.0-36.0) g/dl RDW 13.8 (11.0-16.0) % Plt Count 147 L D (160-400) X10*3/uL MPV 11.3 (9.4-12.4) fL Immature Gran % (Auto) 0.1 (0.0-0.4) % Neut % (Auto) 72.7 (45-73) % Lymph % (Auto) 16.8 L (20-40) % [place] % (Auto) 8.7 (2-11) % Eos % (Auto) 1.3 (0-4) % Baso % (Auto) 0.4 (0-2) % Lymph # (Auto) 1.3 (1.2-4.9) X10*3/uL [place] # (Auto) 0.7 (0.1-1.2) X10*3/uL Eos # (Auto) 0.1 (0.0-0.4) X10*3/uL Baso # (Auto) 0.0 (0.0-0.2) X10*3/uL Abs Immat Gran (auto) 0.01 (0.00-0.03) X10*3/uL Absolute Neuts (auto) 5.5 (2.0-8.3) x10*3/uL Absolute Nucleated RBC 0.000 (0.0-0.012) X10*3/uL Nucleated RBC % (auto) 0.0 (0.0-0.2) /100WBC Sodium 132 L (135-145) mmol/L Potassium 7.3 H* (3.3-5.1) mmol/L Chloride 93 L (96-108) mmol/L Carbon Dioxide 26 (22-29) mmol/L Anion Gap 20 (12-20) BUN 57 H (9-16) mg/dL Creatinine 11.90 H* (0.5-1.4) mg/dL Estim Creat Clear Calc 6.5 Estimated GFR 4 Random Glucose 182 H (60-115) mg/dL Calcium 9.0 D (8.4-10.2) mg/dL Total Creatine Kinase 105 (38-174) U/L Independent Interpretation I performed an independent interpretation of an: Ultrasound ( right lower extremity: No DVT.) and CT Scan ( Abdomen pelvis:1. There are bilateral inguinal hernias containing fat and mesentery, no bowels. 2. There are few mildly dilated small bowel loops in the right lower quadrant uncertain etiology, could be mild regional ileus versus mild partial small bowel obstruction. The terminal ileum is not ) Radiology Impression Discussion of test interpretation with radiology: I have reviewed the radiologist's reading. Chronic Conditions Patient?s care impacted by: Hypertension and Other ( End-stage renal disease on HD.) Discharge Plan Discharge Clinical Impression: Acute hyperkalemia, Groin pain Patient Disposition: Admitted As Inpatient
[2023-09-18] MEDS: Ketorolac Tromethamine 30 MG/ML VIAL IM (11:11)
[2023-09-18] MEDS: HYDROmorphone HCl 2 MG/ML VIAL IM (11:12)
[2023-09-18 11:14] LABS: MANUAL DIFF FLAG NO
[2023-09-18 11:21] LABS: Basophils Percent Auto 0.4 % (0-2); Eosinophils Absolute Auto 0.1 X10*3/uL (0.0-0.4); Eosinophils Percent Auto 1.3 % (0-4); Hematocrit 35.1 % (42.0-52.0); Hemoglobin 11.9 g/dl (14.0-18.0); Imm Gran Abs Auto 0.01 X10*3/uL (0.00-0.03); Imm Gran Pct Auto 0.1 % (0.0-0.4); Lymphocytes Absolute Auto 1.3 X10*3/uL (1.2-4.9); Lymphocytes Percent Auto 16.8 % (20-40); Mean Corpuscular HGB Conc 33.9 g/dl (31.0-36.0); Mean Corpuscular Hemoglobin 30.7 pg (27.0-33.0); Mean Corpuscular Volume 90.5 fL (80.0-98.0); Mean Platelet Volume 11.3 fL (9.4-12.4); Monocytes Absolute Auto 0.7 X10*3/uL (0.1-1.2); Monocytes Percent Auto 8.7 % (2-11); Neutrophils Absolute Auto 5.5 x10*3/uL (2.0-8.3); Neutrophils Percent Auto 72.7 % (45-73); Red Blood Count 3.88 X10*6/uL (4.60-5.80); Red Cell Distribution Width 13.8 % (11.0-16.0); White Blood Count 7.6 X10*3/uL (4.8-10.8)
[2023-09-18 11:32] LABS: Platelet Count 147 X10*3/uL (160-400)
--- NOTE | 2023-09-18 11:46 | PC.NURSE ---
Pt AOx4 from waiting room, at bedside, pt reporting sharp, stabbing 9/10 lower back pain that radiates to groin x3 days. Pain with movement and palpation of the right groin. Pt reports taking blood thinners, Dialysis patient, last dialysis appointment Tuesday. Reports having one kidney, with little urine output. meds given per MAR. Awaiting scans, per Providers orders.
[2023-09-18 11:50] LABS: Anion Gap 20 (12-20); Blood Urea Nitrogen 57 mg/dL (9-16); Carbon Dioxide 26 mmol/L (22-29); Chloride 93 mmol/L (96-108); Creatinine Clr Calc Pharmacy 6.5; Estimated Glomerular Filt Rate 4; Glucose Random 182 mg/dL (60-115); Potassium 7.3 mmol/L (3.3-5.1); Sodium 132 mmol/L (135-145)
--- NOTE | 2023-09-18 11:58 | ECG_ITS ---
Test Reason : HYPERKALEMIA Blood Pressure : / mmHG Vent. Rate : 066 BPM Atrial Rate : 066 BPM P-R Int : 248 ms QRS Dur : 116 ms QT Int : 412 ms P-R-T Axes : 041 086 055 degrees QTc Int : 431 ms Sinus rhythm with 1st degree A-V block Otherwise normal ECG When compared with ECG of 19-JAN-2023 13:41, QRS duration has increased Nonspecific T wave abnormality no longer evident in Lateral leads Referred By: Maximo Spangler Electronically Signed By:YENY BERMUDEZ MD
[2023-09-18] MEDS: Calcium Gluconate/NaCl,Iso-Osm 1 GM/50 ML PLAST..BAG IV (12:13)
[2023-09-18] MEDS: Sodium Zirconium Cyclosilicate 10 GM POWD.PACK PO (12:14)
[2023-09-18] MEDS: Sodium Bicarbonate 8.4% 50 MEQ/50 ML SYRINGE IVPUSH (12:15)
[2023-09-18 12:25] VITALS: BP 147/70; PULSE 68; RESP 12; O2SAT 97
--- NOTE | 2023-09-18 14:08 | P.HPHOSP_ITS ---
<Statement entered by Mireya Duenas MD - 09/18/23 17:55> the patient was seen and evaluated with MEDARDO Hernandez. I agree with her note, assessment and plan with the following. In summary. A 62 ESRD on HD patient presented to the hospital for groin pain but work up showed significant Hyperkalemia requiring urgent dialysis. Acute hyperkalemia in ESRD patient Received calcium gluconate, sodium bicarb and Lokelma in ED Nehprology to arrange urgent dialysis session Rest of evaluations by PA note. History of Present Illness Date of Service: 09/18/23 Attending physician on admission: Mireya Duenas Chief Complaint: leg pain, hyperkalemia This is a 62-year-old man with multiple medical problems who presents to the emergency department with right leg pain. Patient reports he began having right groin pain approximately 2 days ago. He denies any fall or trauma to the area. He denies any leg weakness. In the emergency department his workup was significant for potassium of 7.3. He does have a history of end-stage renal disease and receives hemodialysis Tuesday and Tuesday, his last hemodialysis was TuesdaySeptember 15 and he states that he received a full session of dialysis. The case was discussed with the senior construction estimator director of construction who recommended admitting the patient for urgent dialysis due to hyperkalemia. Patient denies any shortness of breath, no hypoxia documented. Blood pressure stable. Ultrasound of the right lower extremity and a CT scan of the abdomen is pending at the time of admission. Review of Systems 2 Review of Systems: Yes all other systems are reviewed and are negative Constitutional: Constitutional: Denies chills and Denies fever(s) Cardiovascular: Cardiovascular: Denies chest pain and Denies palpitations Respiratory: Respiratory: Denies cough Endocrine: Endocrine: Denies palpitations [facility] Medical History History of cardioversion Hx of sleep apnea GERD (gastroesophageal reflux disease) Atrial flutter Colon adenomas Asthma Colon cancer screening End stage renal disease Type 2 diabetes mellitus with unspecified complications Essential hypertension Normocytic anemia Non-cardiac chest pain CAD (coronary artery disease) CVA (cerebral vascular accident) Hypertension Family History Other No family history of coronary artery disease Surgical History History of colonoscopy H/O neck surgery Hx of colonoscopy History of bladder surgery Stented coronary artery History of nephrectomy Social History Are you a primary resident care aide to a significant other at home: No Do you presently have visiting nurse or other home services: Yes ([employer] 11 day hours, 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) Alcohol intake: former Patient Tobacco Use Status: Former Tobacco user Quit Date: 35 yrs ago Tobacco use type: Cigarette Smoked in Last 30 Days: No Use of substances other than those prescribed or required for medical reasons: No Advance Directives: No Advance Directives Information Provided: No service: No Current occupational status: disabled [employer] Allergies Allergy/AdvReac Type Severity Reaction Status Date / Time No Known Allergies Allergy Verified 09/18/23 10:17 Home Medications ?Medication ?Instructions ?Recorded ?Confirmed ?Last Taken ?Type albuterol sulfate 90 mcg/actuation 2 puff PO Q6H PRN Shortness Of 11/25/21 09/18/23 Unknown History aerosol inhaler (ProAir HFA) Breath blood sugar diagnostic (FreeStyle 11/25/21 09/18/23 Unknown History Lite Strips) insulin glargine 100 unit/mL (3 34 unit subcut DAILY 11/25/21 09/18/23 09/18/23 09:00 History mL) subcutaneous pen (Lantus Solostar U-100 Insulin) ipratropium bromide 21 mcg (0.03 1 spray intranasal TID 11/25/21 09/18/23 09/18/23 09:00 History %) nasal spray pen needle, diabetic 32 gauge x 11/25/21 09/18/23 Unknown History (Pentips) levothyroxine 112 mcg tablet 112 mcg PO DAILY@0600 12/16/21 09/18/23 09/18/23 09:00 History omeprazole 40 mg capsule,delayed 40 mg PO BID 12/16/21 09/18/23 09/18/23 09:00 History release zolpidem 10 mg tablet 10 mg PO BEDTIME 12/16/21 09/18/23 Unknown History clonazepam 1 mg tablet 1 mg PO BID 03/31/22 09/18/23 09/18/23 09:00 History oxycodone-acetaminophen 10 mg-325 1 tab PO Q4H PRN severe pain 03/31/22 09/18/23 Unknown History mg tablet gabapentin 100 mg capsule 100 mg PO BID 11/02/22 09/18/23 09/18/23 09:00 History amiodarone 200 mg tablet 200 mg PO DAILY 09/18/23 09/18/23 09/18/23 09:00 History atorvastatin 80 mg tablet 80 mg PO BEDTIME 09/18/23 09/18/23 Unknown History clotrimazole 1 % topical cream 1 appl topical BID 09/18/23 09/18/23 09/18/23 09:00 History insulin aspart U-100 100 unit/mL 1 sliding scale dose subcut TIDAC 09/18/23 09/18/23 09/18/23 09:00 History (3 mL) subcutaneous pen (Novolog FlexPen U-100 Insulin aspart) lidocaine 5 % topical patch 1 patch topical DAILY 09/18/23 09/18/23 09/18/23 09:00 History lidocaine-prilocaine 2.5 %-2.5 % 1 appl topical DAILY PRN DIALYSIS 09/18/23 09/18/23 Unknown History topical cream sevelamer carbonate 800 mg tablet 1,600 mg PO TIDWM 09/18/23 09/18/23 09/18/23 09:00 History Physical Exam 2 Vital Signs and Narrative: Vital Signs: Last Vital Signs Temp 99 F 09/18/23 10:48 Pulse 68 09/18/23 12:25 Resp 12 09/18/23 12:25 BP 147/70 H 09/18/23 12:25 Pulse Ox 97 09/18/23 12:25 O2 Del Method Room Air 09/18/23 12:25 BMI result Body Mass Index 30.8 Const: General: cooperative, comfortable, no acute distress, alert and awake Nutritional Appearance: overweight Orientation/consciousness: patient oriented x3 Resp: Effort & Inspection: normal respiratory effort, able to speak in complete sentences, no respiratory distress and no use of accessory muscles Cardio: Rate: regular rate GI: Inspection: No distended Palpation (GI): Soft to palpation and nontender Neuro: General: patient oriented x3, moves all extremities and CN's II-XI intact bilaterally Extrem: General: Yes no pedal edema Results Labs 09/18/23 11:06 09/18/23 14:13 Labs: Laboratory Results - last 24 hr 09/18/23 11:06 MCV 90.5 MCH 30.7 MCHC 33.9 RDW 13.8 Plt Count 147 L D MPV 11.3 Immature Gran % (Auto) 0.1 Neut % (Auto) 72.7 Lymph % (Auto) 16.8 L [place] % (Auto) 8.7 Eos % (Auto) 1.3 Baso % (Auto) 0.4 Lymph # (Auto) 1.3 [place] # (Auto) 0.7 Eos # (Auto) 0.1 Baso # (Auto) 0.0 Abs Immat Gran (auto) 0.01 Absolute Neuts (auto) 5.5 Absolute Nucleated RBC 0.000 Nucleated RBC % (auto) 0.0 Anion Gap 20 Estim Creat Clear Calc 6.5 Estimated GFR 4 Random Glucose 182 H Calcium 9.0 D Total Creatine Kinase 105 Imaging Radiologist's Impressions: Impressions Venous Duplex 09/18/23 11:36 IMPRESSION: No DVT demonstrated in the right lower extremity. Assessment and Plan (1) Acute hyperkalemia: Status: Acute Plan This is a 62-year-old male with history of ESRD on hemodialysis, CVA, CAD, history of nephrectomy, hypertension, diabetes who presents to the emergency department with leg pain found to have hyperkalemia admitted for dialysis hyperkalemia ESRD on HD MWF received calcium gluconate, sodium bicarb, Lokelma in the emergency department Discussed with Nephrology, plan for urgent dialysis follow BMP in am right groin pain good strength, US negative for DVT ct scan showing sclerotic densities in the iliac bones, can't rule out bone lesion b/l unclear if cause of pain as pain is only one sided - but will need outpatient follow up with bone scan abdomen/pelvis US was pending at the time of admission - now showing possible ileus vs pSBO abdomen soft will place on clear liquids and advance as tolerated if worsens consider surgical evaluation ESRD on HD HD today as above atrial flutter in NSR continue amiodarone continue Eliquis for antigcoagulation CAD continue statin, coreg DM SSI, POCs, ADA diet continue lantus (reduced dose as pt diet changed to clear liquids) HTN continue norvasc, coreg gerd continue omeprazole hypothyroidism continue synthroid ROD CPAP at bedtime dvt ppx - elquis Given severe hyperkalemia patient will likely require 2 midnights in the hospital for close monitoring on monitoring analyst as well as inpatient dialysis Quality Stroke Does the patient have a stroke diagnosis?: No VTE Prior VTE?: No VTE Risk Level:: Medical - moderate - high VTE Device Contraindication: Treatment Not Indicated VTE Drug Contraindication: N/A - Med Ordered
[2023-09-18 15:02] LABS: Anion Gap 21 (12-20); Blood Urea Nitrogen 59 mg/dL (9-16); Carbon Dioxide 26 mmol/L (22-29); Chloride 95 mmol/L (96-108); Creatinine Clr Calc Pharmacy 6.5; Estimated Glomerular Filt Rate 4; Glucose Random 139 mg/dL (60-115); Potassium 6.7 mmol/L (3.3-5.1); Sodium 135 mmol/L (135-145)
--- NOTE | 2023-09-18 15:08 | PC.NURSE ---
Pt brought up to dialysis by this RN, critical labs taken, provider aware, no new orders at this time
--- NOTE | 2023-09-18 15:26 | PHA.MEDREC ---
Pharmacy Consult ? Medication Reconciliation Pharmacy has completed the medication reconciliation. Pt reported all meds.
[2023-09-18 17:58] VITALS: BP 128/67; PULSE 69; RESP 22; TEMP 36.7; O2SAT 96
[2023-09-18 17:59] LABS: Glucose, Whole Blood 118 mg/dL (60-115)
[2023-09-18] MEDS: Omeprazole 40 MG CAPSULE.DR PO (18:07)
[2023-09-18] MEDS: 0.9 % Sodium Chloride Flush 3 ML SYRINGE IVFLUSH ×2 (18:07→20:39)
[2023-09-18] MEDS: Sevelamer Carbonate Tablet 800 MG TABLET 1600 MG PO (18:07)
[2023-09-18 19:40] LABS: Glucose, Whole Blood 144 mg/dL (60-115)
[2023-09-18 19:55] VITALS: BP 105/50; PULSE 68; RESP 21; TEMP 36.6; O2SAT 97
[2023-09-18 20:35] VITALS: BP 106/60; PULSE 70
[2023-09-18] MEDS: Zolpidem Tartrate 5 MG TABLET PO (20:35)
[2023-09-18] MEDS: Apixaban 5 MG TABLET PO (20:35)
[2023-09-18] MEDS: Atorvastatin Calcium 80 MG TABLET PO (20:35)
[2023-09-18] MEDS: carvediloL 12.5 MG TABLET PO (20:35)
[2023-09-18] MEDS: Gabapentin 100 MG CAPSULE PO (20:36)
[2023-09-19] VITALS: BP 119/61; PULSE 66; RESP 20; TEMP 36.5; O2SAT 96
[2023-09-19 03:26] VITALS: BP 101/57; PULSE 62; RESP 20; TEMP 37.4; O2SAT 95
[2023-09-19] MEDS: Levothyroxine Sodium 112 MCG TABLET PO (05:33)
[2023-09-19] MEDS: Omeprazole 40 MG CAPSULE.DR PO ×2 (05:33→15:42)
[2023-09-19 07:16] LABS: Anion Gap 18 (12-20); Blood Urea Nitrogen 39 mg/dL (9-16); Calcium 9.1 mg/dL (8.4-10.2); Carbon Dioxide 26 mmol/L (22-29); Chloride 94 mmol/L (96-108); Creatinine Clr Calc Pharmacy 8.7; Estimated Glomerular Filt Rate 6; Glucose Random 153 mg/dL (60-115); Potassium 4.8 mmol/L (3.3-5.1); Sodium 133 mmol/L (135-145)
[2023-09-19 07:27] LABS: Glucose, Whole Blood 147 mg/dL (60-115)
[2023-09-19 07:54] VITALS: BP 111/63; PULSE 61; RESP 18; TEMP 36.8; O2SAT 97
[2023-09-19] MEDS: Sevelamer Carbonate Tablet 800 MG TABLET 1600 MG PO ×3 (08:02→15:42)
[2023-09-19 08:03] VITALS: BP 111/63; PULSE 61
[2023-09-19] MEDS: amLODIPine Besylate 10 MG TABLET PO (08:03)
[2023-09-19] MEDS: Amiodarone HCL 200 MG TABLET PO (08:03)
[2023-09-19] MEDS: Insulin Glargine,Hum.rec.anlog 100 UNIT/ML 10 ML VIAL 20 UNIT SUBCUT (08:03)
[2023-09-19] MEDS: carvediloL 12.5 MG TABLET PO (08:03)
[2023-09-19] MEDS: Apixaban 5 MG TABLET PO (08:03)
[2023-09-19] MEDS: Gabapentin 100 MG CAPSULE PO (08:03)
[2023-09-19] MEDS: Acetaminophen 325 MG TABLET 650 MG PO ×2 (08:04→15:42)
[2023-09-19] MEDS: 0.9 % Sodium Chloride Flush 3 ML SYRINGE IVFLUSH ×2 (08:04→12:02)
--- NOTE | 2023-09-19 10:48 | HO.PM.IMPN ---
Subjective Subjective Date of Service: 09/19/23 Physical Exam Vital Signs: Vital Signs: Last Vital Signs Temp 98.3 F 09/19/23 07:54 Pulse 61 09/19/23 08:03 Resp 18 09/19/23 07:54 BP 111/63 09/19/23 08:03 Pulse Ox 97 09/19/23 07:54 O2 Del Method Room Air 09/19/23 07:54 BMI result Body Mass Index 30.8 Objective Data Active Medications Acetaminophen (Acetaminophen 325 Mg Tablet) 650 mg PO Q6H PRN PRN Reason: Pain, Mild (Pain Scale 1-3) Last Admin: 09/19/23 08:04 Dose: 650 mg Documented By: RODNEY Albuterol Sulfate (Albuterol Sulfate 90 Mcg 8 Gm Inhaler) 2 puff INHALE Q6H PRN PRN Reason: Shortness Of Breath Amiodarone HCl (Amiodarone Hcl 200 Mg Tablet) 200 mg PO DAILY [facility] Last Admin: 09/19/23 08:03 Dose: 200 mg Documented By: RODNEY Amlodipine Besylate (Amlodipine Besylate 10 Mg Tablet) 10 mg PO DAILY [facility]; Protocol Last Admin: 09/19/23 08:03 Dose: 10 mg Documented By: RODNEY Apixaban (Apixaban 5 Mg Tablet) 5 mg PO BID [facility] Last Admin: 09/19/23 08:03 Dose: 5 mg Documented By: RODNEY Atorvastatin Calcium (Atorvastatin Calcium 80 Mg Tablet) 80 mg PO BEDTIME [facility] Last Admin: 09/18/23 20:35 Dose: 80 mg Documented By: SURI Carvedilol (Carvedilol 12.5 Mg Tablet) 12.5 mg PO BID [facility]; Protocol Last Admin: 09/19/23 08:03 Dose: 12.5 mg Documented By: RODNEY Clotrimazole (Clotrimazole 1 % Cream 15 Gm Tube) 1 appl TOPICAL BID [facility]; Protocol Last Admin: 09/19/23 09:32 Dose: Not Given Documented By: RODNEY Non-Admin Reason: Patient Refused Docusate Sodium (Docusate Sodium 100 Mg Capsule) 100 mg PO DAILY PRN PRN Reason: Constipation Gabapentin (Gabapentin 100 Mg Capsule) 100 mg PO BID [facility] Last Admin: 09/19/23 08:03 Dose: 100 mg Documented By: RODNEY Glucose (Glucose Gel 15 Gm Gel..Gram.) 15 gm PO Q15M PRN; Protocol PRN Reason: per Hypoglycemia Standing Ord. Dextrose (D10) 250 mls @ 750 mls/hr IV Q15M PRN; Protocol PRN Reason: per Hypoglycemia Standing Ord. Insulin Glargine (Insulin Glargine,Hum.Rec.Anlog 100 Unit/Ml 10 Ml Vial) 20 unit SUBCUT DAILY [facility] Last Admin: 09/19/23 08:03 Dose: 20 unit Documented By: RODNEY Insulin Human Lispro (Insulin Lispro 100 Unit/Ml 3 Ml Vial) 0 unit SUBCUT QIDACHS [facility]; Protocol Last Admin: 09/19/23 07:28 Dose: Not Given Documented By: RODNEY Non-Admin Reason: No Insulin Coverage Ipratropium [place] (Ipratropium [place] Torin 0.03 % 30 Ml [place]) 1 spray NOSTRIL-B TID [facility] Last Admin: 09/19/23 09:32 Dose: Not Given Documented By: RODNEY Non-Admin Reason: Patient Refused Levothyroxine Sodium (Levothyroxine Sodium 112 Mcg Tablet) 112 mcg PO DAILY@0600 [facility] Last Admin: 09/19/23 05:33 Dose: 112 mcg Documented By: SURI Lidocaine (Lidocaine 4 % Patch Adh..Patch) 1 patch TRANSDERMA DAILY [facility] Last Admin: 09/19/23 08:06 Dose: Not Given Documented By: RODNEY Non-Admin Reason: Patient Refused Omeprazole (Omeprazole 40 Mg Andree.) 40 mg PO BID@0630,1630 [facility] Last Admin: 09/19/23 05:33 Dose: 40 mg Documented By: SUIR Ondansetron HCl (Ondansetron Hcl 4 Mg/2 Ml Vial) 4 mg IVPUSH Q8H PRN PRN Reason: Nausea and Vomiting Oxycodone HCl (Oxycodone Hcl Immed Release 5 Mg Tablet) 10 mg PO Q4H PRN PRN Reason: severe pain Sevelamer Carbonate (Sevelamer Carbonate Tablet 800 Mg Tablet) 1,600 mg PO TIDWM [facility] Last Admin: 09/19/23 08:02 Dose: 1,600 mg Documented By: RODNEY Sodium Chloride (0.9 % Sodium Chloride Flush 3 Ml Syringe) 3 ml IVFLUSH QSHIFT [facility] Last Admin: 09/19/23 08:04 Dose: 3 ml Documented By: RODNEY Zolpidem Tartrate (Zolpidem Tartrate 5 Mg Tablet) 5 mg PO BEDTIME [facility] Last Admin: 09/18/23 20:35 Dose: 5 mg Documented By: SURI Labs 09/18/23 11:06 09/19/23 06:02 Labs: Laboratory Results - last 24 hr 09/18/23 09/18/23 09/18/23 11:06 14:13 17:56 MCV 90.5 MCH 30.7 MCHC 33.9 RDW 13.8 Plt Count 147 L D MPV 11.3 Immature Gran % (Auto) 0.1 Neut % (Auto) 72.7 Lymph % (Auto) 16.8 L [place] % (Auto) 8.7 Eos % (Auto) 1.3 Baso % (Auto) 0.4 Lymph # (Auto) 1.3 [place] # (Auto) 0.7 Eos # (Auto) 0.1 Baso # (Auto) 0.0 Abs Immat Gran (auto) 0.01 Absolute Neuts (auto) 5.5 Absolute Nucleated RBC 0.000 Nucleated RBC % (auto) 0.0 Hold Purple Top Anion Gap 20 21 H Estim Creat Clear Calc 6.5 6.5 Estimated GFR 4 4 POC Glucose 118 H Random Glucose 182 H 139 H Calcium 9.0 D 9.0 Total Creatine Kinase 105 09/18/23 09/19/23 09/19/23 19:36 06:02 07:17 MCV MCH MCHC RDW Plt Count MPV Immature Gran % (Auto) Neut % (Auto) Lymph % (Auto) [place] % (Auto) Eos % (Auto) Baso % (Auto) Lymph # (Auto) [place] # (Auto) Eos # (Auto) Baso # (Auto) Abs Immat Gran (auto) Absolute Neuts (auto) Absolute Nucleated RBC Nucleated RBC % (auto) Hold Purple Top SEE NOTE Anion Gap 18 Estim Creat Clear Calc 8.7 Estimated GFR 6 POC Glucose 144 H 147 H Random Glucose 153 H Calcium 9.1 Total Creatine Kinase Assessment and Plan (1) Groin pain: Status: Acute Plan This is a 62-year-old male with history of ESRD on hemodialysis, CVA, CAD, history of nephrectomy, hypertension, diabetes who presents to the emergency department with leg pain found to have hyperkalemia admitted for dialysis Right groin pain good strength, US negative for DVT ct scan showing sclerotic densities in the iliac bones, hx of renal carcinoma s/p nephrectomy recent PET Scan at [facility] 08/26/23 showing multiple lytic lesions throughout Tspine discussed with Hematology, patient to follow up with Dr. Walsh as o/p Hyperkalemia. Resolved ESRD on HD MWF received calcium gluconate, sodium bicarb, Lokelma in the emergency department Discussed with Nephrology Abdomen/pelvis US showing possible ileus vs SBO abdomen soft, no pain discussed with general surgery, no SBO or ileus seen ESRD on HD HD today Atrial flutter in NSR continue amiodarone continue Eliquis for anticoagulation CAD continue statin, coreg DM2 SSI, POCs, ADA diet continue lantus ADA diet HTN continue norvasc, coreg gerd continue omeprazole hypothyroidism continue synthroid ROD CPAP at bedtime dvt ppx Eliquis Attending Dr. Traylor Given severe hyperkalemia patient will likely require 2 midnights in the hospital for close monitoring on cardiac cath rn as well as inpatient dialysis Quality Stroke Does the patient have a stroke diagnosis?: No VTE Prior VTE?: No VTE Risk Level:: Medical - moderate - high VTE Device Contraindication: Treatment Not Indicated VTE Drug Contraindication: N/A - Med Ordered
--- NOTE | 2023-09-19 10:51 | P.CNHO_ITS ---
Subjective - Subjective Chief complaint: Hip pain, hyperkalemia Patient: new to practice Consult date: 09/19/23 Requesting Physician: Anushka Gibson NP Primary Care Provider: Macie Link, DO HPI - Consult Narrative Reason for consult: ? Bone metastasis Narrative: Joshua Pretty is a 62 year old male who has been admitted for severe hyperkalemia and requiring dialysis for his history of end-stage renal disease on hemodialysis. He presented however with right leg and groin pain. He underwent imaging with CT abdomen/pelvis without contrast on 09/18/2023 which revealed bilateral inguinal hernias as well as sclerotic densities in the iliac bones bilaterally raising possibility of bone metastasis. On further questioning, he stated that he has history of kidney cancer, he underwent right nephrectomy 3 years ago. He is followed at [facility] by Dr. Walsh. He also stated that he had a PET scan a few weeks ago and has not heard back from his oncologist. He denies any other complaints such as a weight loss or change in bowel habits. Review of Systems - Constitutional Reports as per HPI, Reports fatigue, Reports lack of energy, Denies weight loss - Cardiovascular Reports no additional cardiovascular complaints - Respiratory Reports no additional respiratory complaints - Gastrointestinal Reports no additional gastrointestinal complaints PMFSH Medical History: Medical History (Last Reviewed 09/18/23 @ 18:02 by Dennis Mg RN) Asthma Atrial flutter CAD (coronary artery disease) Colon adenomas Colon cancer screening CVA (cerebral vascular accident) End stage renal disease Essential hypertension GERD (gastroesophageal reflux disease) History of cardioversion Hx of sleep apnea Hypertension Non-cardiac chest pain Normocytic anemia Type 2 diabetes mellitus with unspecified complications Family History: Family History (Last Reviewed 09/18/23 @ 14:12 by MEDARDO Oliver) Other No family history of coronary artery disease Surgical History: Surgical History (Last Reviewed 09/18/23 @ 18:02 by Dennis Mg RN) H/O neck surgery History of bladder surgery History of colonoscopy History of nephrectomy Hx of colonoscopy Stented coronary artery Social History: Social History (Last Reviewed 09/18/23 @ 14:12 by MEDARDO Oliver) Living Situation History: Household Members: Spouse Housing: Apartment Are you a primary healthcare economics manager to a significant other at home: No Do you presently have visiting nurse or other home services: Yes Alcohol History Details: 1. How often do you have a drink containing alcohol?: a. Never AUDIT-C Alcohol total score: 0 Currently Displaying Signs/Symptoms of Alcohol Withdrawal: No Tobacco History: Patient Tobacco Use Status: Former Tobacco user Tobacco use type: Cigarette Smoked in Last 30 Days: No Smoke Quit Date: 35 yrs ago Substance Use History: Use of substances other than those prescribed or required for medical reasons : No Currently Displaying Signs/Symptoms of Drug Intoxication Withdrawal: No Domestic Abuse History: Have you been hit, kicked, punched, or otherwise hurt by someone within the past year? If so, by whom?: No Do you feel safe in your current relationship?: Yes Is there a partner from a previous relationship who is making you feel unsafe now?: No Are you made to feel afraid or neglected: No Advance Directives: Advance Directives: No Advance Directives Information Provided: No Homicidal Assessment: Do you have thoughts of harming others: None Do you have a plan to hurt others: No Plan Nutrition Assessment: Recently lost weight without trying: No Nutrition Risks: No Nutritional Risk Poor oral hygiene: No Occupation Assessmet: service: No Current occupational status: disabled Home Medications and Allergies Current Medications: Current Medications Acetaminophen (Acetaminophen 325 Mg Tablet) 650 mg PO Q6H PRN PRN Reason: Pain, Mild (Pain Scale 1-3) Last Admin: 09/19/23 08:04 Dose: 650 mg Albuterol Sulfate (Albuterol Sulfate 90 Mcg 8 Gm Inhaler) 2 puff INHALE Q6H PRN PRN Reason: Shortness Of Breath Amiodarone HCl (Amiodarone Hcl 200 Mg Tablet) 200 mg PO DAILY [facility] Last Admin: 09/19/23 08:03 Dose: 200 mg Amlodipine Besylate (Amlodipine Besylate 10 Mg Tablet) 10 mg PO DAILY [facility]; Protocol Last Admin: 09/19/23 08:03 Dose: 10 mg Apixaban (Apixaban 5 Mg Tablet) 5 mg PO BID [facility] Last Admin: 09/19/23 08:03 Dose: 5 mg Atorvastatin Calcium (Atorvastatin Calcium 80 Mg Tablet) 80 mg PO BEDTIME [facility] Last Admin: 09/18/23 20:35 Dose: 80 mg Carvedilol (Carvedilol 12.5 Mg Tablet) 12.5 mg PO BID [facility]; Protocol Last Admin: 09/19/23 08:03 Dose: 12.5 mg Clotrimazole (Clotrimazole 1 % Cream 15 Gm Tube) 1 appl TOPICAL BID [facility]; Protocol Last Admin: 09/19/23 09:32 Dose: Not Given Docusate Sodium (Docusate Sodium 100 Mg Capsule) 100 mg PO DAILY PRN PRN Reason: Constipation Gabapentin (Gabapentin 100 Mg Capsule) 100 mg PO BID [facility] Last Admin: 09/19/23 08:03 Dose: 100 mg Glucose (Glucose Gel 15 Gm Gel..Gram.) 15 gm PO Q15M PRN; Protocol PRN Reason: per Hypoglycemia Standing Ord. Dextrose (D10) 250 mls @ 750 mls/hr IV Q15M PRN; Protocol PRN Reason: per Hypoglycemia Standing Ord. Insulin Glargine (Insulin Glargine,Hum.Rec.Anlog 100 Unit/Ml 10 Ml Vial) 20 unit SUBCUT DAILY [facility] Last Admin: 09/19/23 08:03 Dose: 20 unit Insulin Human Lispro (Insulin Lispro 100 Unit/Ml 3 Ml Vial) 0 unit SUBCUT QIDACHS [facility]; Protocol Last Admin: 09/19/23 07:28 Dose: Not Given Ipratropium [place] (Ipratropium [place] Torin 0.03 % 30 Ml [place]) 1 spray NOSTRIL-B TID [facility] Last Admin: 09/19/23 09:32 Dose: Not Given Levothyroxine Sodium (Levothyroxine Sodium 112 Mcg Tablet) 112 mcg PO DAILY@0600 [facility] Last Admin: 09/19/23 05:33 Dose: 112 mcg Lidocaine (Lidocaine 4 % Patch Adh..Patch) 1 patch TRANSDERMA DAILY [facility] Last Admin: 09/19/23 08:06 Dose: Not Given Omeprazole (Omeprazole 40 Mg Capsule.Dr) 40 mg PO BID@0630,1630 [facility] Last Admin: 09/19/23 05:33 Dose: 40 mg Ondansetron HCl (Ondansetron Hcl 4 Mg/2 Ml Vial) 4 mg IVPUSH Q8H PRN PRN Reason: Nausea and Vomiting Oxycodone HCl (Oxycodone Hcl Immed Release 5 Mg Tablet) 10 mg PO Q4H PRN PRN Reason: severe pain Sevelamer Carbonate (Sevelamer Carbonate Tablet 800 Mg Tablet) 1,600 mg PO TIDWM [facility] Last Admin: 09/19/23 08:02 Dose: 1,600 mg Sodium Chloride (0.9 % Sodium Chloride Flush 3 Ml Syringe) 3 ml IVFLUSH QSHIFT [facility] Last Admin: 09/19/23 08:04 Dose: 3 ml Zolpidem Tartrate (Zolpidem Tartrate 5 Mg Tablet) 5 mg PO BEDTIME [facility] Last Admin: 09/18/23 20:35 Dose: 5 mg Home Medications ?Medication ?Instructions ?Recorded ?Confirmed ?Type albuterol sulfate 90 mcg/actuation 2 puff PO Q6H PRN Shortness Of 11/25/21 09/18/23 History aerosol inhaler (ProAir HFA) Breath blood sugar diagnostic (FreeStyle 11/25/21 09/18/23 History Lite Strips) insulin glargine 100 unit/mL (3 34 unit subcut DAILY 11/25/21 09/18/23 History mL) subcutaneous pen (Lantus Solostar U-100 Insulin) ipratropium bromide 21 mcg (0.03 1 spray intranasal TID 11/25/21 09/18/23 History %) nasal spray pen needle, diabetic 32 gauge x 11/25/21 09/18/23 History (Pentips) levothyroxine 112 mcg tablet 112 mcg PO DAILY@0600 12/16/21 09/18/23 History omeprazole 40 mg capsule,delayed 40 mg PO BID 12/16/21 09/18/23 History release zolpidem 10 mg tablet 10 mg PO BEDTIME 12/16/21 09/18/23 History clonazepam 1 mg tablet 1 mg PO BID 03/31/22 09/18/23 History oxycodone-acetaminophen 10 mg-325 1 tab PO Q4H PRN severe pain 03/31/22 09/18/23 History mg tablet gabapentin 100 mg capsule 100 mg PO BID 11/02/22 09/18/23 History amiodarone 200 mg tablet 200 mg PO DAILY 09/18/23 09/18/23 History atorvastatin 80 mg tablet 80 mg PO BEDTIME 09/18/23 09/18/23 History clotrimazole 1 % topical cream 1 appl topical BID 09/18/23 09/18/23 History insulin aspart U-100 100 unit/mL 1 sliding scale dose subcut TIDAC 09/18/23 09/18/23 History (3 mL) subcutaneous pen (Novolog FlexPen U-100 Insulin aspart) lidocaine 5 % topical patch 1 patch topical DAILY 09/18/23 09/18/23 History lidocaine-prilocaine 2.5 %-2.5 % 1 appl topical DAILY PRN DIALYSIS 09/18/23 09/18/23 History topical cream sevelamer carbonate 800 mg tablet 1,600 mg PO TIDWM 09/18/23 09/18/23 History Allergies Allergy/AdvReac Type Severity Reaction Status Date / Time No Known Allergies Allergy Verified 09/18/23 10:17 Physical Exam Vital signs: Vital Signs Temp 98.3 F 09/19/23 07:54 Pulse 61 09/19/23 08:03 Resp 18 09/19/23 07:54 BP 111/63 09/19/23 08:03 Pulse Ox 97 09/19/23 07:54 O2 Del Method Room Air 09/19/23 07:54 Intake & Output 09/18/23 09/19/23 09/19/23 18:59 06:59 18:59 Intake Total 50 / 290 240 / 290 Balance 50 / 290 240 / 290 Intake: Intake, Oral Amount 240 / 240 Intake, IV Amount 50 / 50 Calcium Gluconate/NaCl,Iso-Osm 50 / 50 1 gm In 50 ml @ 50 mls/hr IV ONCE ONE Rx#:[id number] Other: Number of Unmeasured Voids 1 Last Bowel Movement 09/17/23 09/17/23 Weight 86.636 kg Weight 86.636 kg - Constitutional Present: no acute distress, average body habitus - Routine HEENT Exam Eye: Present: EOMI, PERRL - Routine Neck Exam Present: supple. Absent: lymphadenopathy - Routine Respiratory Exam Present: CTAB - Routine Cardiovascular Exam Cardiovascular: Present: S1, S2 - Routine Abdominal Exam Present: soft Hem/Onc Consult Result - Labs CBC & Chem 7: 09/18/23 11:06 09/19/23 06:02 Labs: Short CBC 09/18/23 Range/Units 11:06 WBC 7.6 (4.8-10.8) X10*3/uL Hgb 11.9 L (14.0-18.0) g/dl Hct 35.1 L (42.0-52.0) % Plt Count 147 L D (160-400) X10*3/uL BMP 04/21/24 04/21/24 04/22/24 11:06 14:13 06:02 Sodium 132 L 135 133 L Potassium 7.3 H* 6.7 H* 4.8 D Chloride 93 L 95 L 94 L Carbon Dioxide 26 26 26 BUN 57 H 59 H 39 H Creatinine 11.90 H* 11.95 H* 8.89 H* Calcium 9.0 D 9.0 9.1 Cardiac Enzymes 09/18/23 Range/Units 11:06 Total Creatine Kinase 105 (38-174) U/L Assessment and Plan Patient Active problem list reviewed?: Yes (1) Metastasis to bone Status: Acute Assessment and plan: 1. This is a 62-year-old male with end-stage renal disease on hemodialysis presenting with right hip pain. He has a history of right kidney cancer, status post 3 years ago. He says he did not receive any adjuvant immunotherapy. He is followed by Dr Walsh at [facility]. He presented with right hip/groin pain, CT abdomen/pelvis without contrast shows sclerotic lesions in bilateral iliac bone suspicious for metastasis. On reviewing PET-CT performed at [facility] performed 07/2023 there are multiple lytic lesions throughout thoracolumbar spine largest measuring 1.5 cm with minimal tracer uptake. I recommend x-ray of hips and both femurs to rule out any large lytic lesions or impending fracture more distally that may have not been captured on the CT scan. He will need urgent follow-up with his primary oncologist. I thank you for this referral. - Time Spent With Patient Time Spent with Patient (in minutes): 20
--- NOTE | 2023-09-19 10:52 | P.CONNP_ITS ---
History of Present Illness Reason for Consult Consult date: 09/20/23 Reason for consult: End stage renal disease hyperkalemia Chief Complaint Chief complaint: Hyperkalemia History of Present Illness Narrative: 62-year-old man with multiple medical problems who presents to the emergency department with right leg pain. Patient reports he began having right groin pain approximately 2 days ago. He denies any fall or trauma to the area. He denies any leg weakness. In the emergency department his workup was significant for potassium of 7.3. He does have a history of end-stage renal disease and receives hemodialysis Tuesday and Tuesday, his last hemodialysis was TuesdaySeptember 15 and he states that he received a full session of dialysis. The case was discussed with the principal system software engineer ironworker machine operator who recommended admitting the patient for urgent dialysis due to hyperkalemia. Patient denies any shortness of breath, no hypoxia documented. Blood pressure stable At the time admission potassium was 7.3 with EKG changes He underwent emergency dialysis with low-potassium bath to correct hyperkalemia. Usually undergoes dialysis on Fridays at [facility] Review of Systems Constitutional: Denies fever(s) and Denies weight loss Cardiovascular: Denies chest pain Respiratory: Denies cough and Denies hemoptysis Gastrointestinal: Denies abdominal pain, Denies diarrhea and Denies nausea Musculoskeletal: Denies back pain Denies focal weakness PMFSH Past Medical History Medical History (Updated 09/20/23 @ 10:07 by Nasim Brito MD) History of cardioversion Hx of sleep apnea GERD (gastroesophageal reflux disease) Atrial flutter Colon adenomas Asthma Colon cancer screening End stage renal disease Type 2 diabetes mellitus with unspecified complications Essential hypertension Normocytic anemia Non-cardiac chest pain CAD (coronary artery disease) CVA (cerebral vascular accident) Hypertension Family History Family History Other No family history of coronary artery disease Surgical History Surgical History (Updated 09/19/23 @ 12:05 by Ellen Ge MD) History of colonoscopy H/O neck surgery Hx of colonoscopy History of bladder surgery Stented coronary artery History of nephrectomy Social History Social History Household Members: Spouse Housing: Apartment Are you a primary director day care center to a significant other at home: No Do you presently have visiting nurse or other home services: Yes Alcohol intake: former Patient Tobacco Use Status: Former Tobacco user Quit Date: 35 yrs ago Tobacco use type: Cigarette service: No Current occupational status: disabled Meds Allergies Allergy/AdvReac Type Severity Reaction Status Date / Time No Known Allergies Allergy Verified 09/18/23 10:17 Active Medications: Current Medications Acetaminophen (Acetaminophen 325 Mg Tablet) 650 mg PO Q6H PRN PRN Reason: Pain, Mild (Pain Scale 1-3) Last Admin: 09/19/23 08:04 Dose: 650 mg Albuterol Sulfate (Albuterol Sulfate 90 Mcg 8 Gm Inhaler) 2 puff INHALE Q6H PRN PRN Reason: Shortness Of Breath Amiodarone HCl (Amiodarone Hcl 200 Mg Tablet) 200 mg PO DAILY [facility] Last Admin: 09/19/23 08:03 Dose: 200 mg Amlodipine Besylate (Amlodipine Besylate 10 Mg Tablet) 10 mg PO DAILY [facility]; Protocol Last Admin: 09/19/23 08:03 Dose: 10 mg Apixaban (Apixaban 5 Mg Tablet) 5 mg PO BID [facility] Last Admin: 09/19/23 08:03 Dose: 5 mg Atorvastatin Calcium (Atorvastatin Calcium 80 Mg Tablet) 80 mg PO BEDTIME [facility] Last Admin: 09/18/23 20:35 Dose: 80 mg Carvedilol (Carvedilol 12.5 Mg Tablet) 12.5 mg PO BID [facility]; Protocol Last Admin: 09/19/23 08:03 Dose: 12.5 mg Clotrimazole (Clotrimazole 1 % Cream 15 Gm Tube) 1 appl TOPICAL BID [facility]; Protocol Last Admin: 09/19/23 09:32 Dose: Not Given Docusate Sodium (Docusate Sodium 100 Mg Capsule) 100 mg PO DAILY PRN PRN Reason: Constipation Gabapentin (Gabapentin 100 Mg Capsule) 100 mg PO BID [facility] Last Admin: 09/19/23 08:03 Dose: 100 mg Glucose (Glucose Gel 15 Gm Gel..Gram.) 15 gm PO Q15M PRN; Protocol PRN Reason: per Hypoglycemia Standing Ord. Dextrose (D10) 250 mls @ 750 mls/hr IV Q15M PRN; Protocol PRN Reason: per Hypoglycemia Standing Ord. Insulin Glargine (Insulin Glargine,Hum.Rec.Anlog 100 Unit/Ml 10 Ml Vial) 20 unit SUBCUT DAILY [facility] Last Admin: 09/19/23 08:03 Dose: 20 unit Insulin Human Lispro (Insulin Lispro 100 Unit/Ml 3 Ml Vial) 0 unit SUBCUT QIDACHS [facility]; Protocol Last Admin: 09/19/23 07:28 Dose: Not Given Ipratropium [place] (Ipratropium [place] Torin 0.03 % 30 Ml [place]) 1 spray NOSTRIL-B TID [facility] Last Admin: 09/19/23 09:32 Dose: Not Given Levothyroxine Sodium (Levothyroxine Sodium 112 Mcg Tablet) 112 mcg PO DAILY@0600 [facility] Last Admin: 09/19/23 05:33 Dose: 112 mcg Lidocaine (Lidocaine 4 % Patch Adh..Patch) 1 patch TRANSDERMA DAILY [facility] Last Admin: 09/19/23 08:06 Dose: Not Given Omeprazole (Omeprazole 40 Mg Capsule.Dr) 40 mg PO BID@0630,1630 [facility] Last Admin: 09/19/23 05:33 Dose: 40 mg Ondansetron HCl (Ondansetron Hcl 4 Mg/2 Ml Vial) 4 mg IVPUSH Q8H PRN PRN Reason: Nausea and Vomiting Oxycodone HCl (Oxycodone Hcl Immed Release 5 Mg Tablet) 10 mg PO Q4H PRN PRN Reason: severe pain Sevelamer Carbonate (Sevelamer Carbonate Tablet 800 Mg Tablet) 1,600 mg PO TIDWM [facility] Last Admin: 09/19/23 08:02 Dose: 1,600 mg Sodium Chloride (0.9 % Sodium Chloride Flush 3 Ml Syringe) 3 ml IVFLUSH QSHIFT [facility] Last Admin: 09/19/23 08:04 Dose: 3 ml Zolpidem Tartrate (Zolpidem Tartrate 5 Mg Tablet) 5 mg PO BEDTIME [facility] Last Admin: 09/18/23 20:35 Dose: 5 mg Home Medications ?Medication ?Instructions ?Recorded ?Confirmed ?Last Taken ?Type albuterol sulfate 90 mcg/actuation 2 puff PO Q6H PRN Shortness Of 11/25/21 09/18/23 Unknown History aerosol inhaler (ProAir HFA) Breath blood sugar diagnostic (FreeStyle 11/25/21 09/18/23 Unknown History Lite Strips) insulin glargine 100 unit/mL (3 34 unit subcut DAILY 11/25/21 09/18/23 09/18/23 09:00 History mL) subcutaneous pen (Lantus Solostar U-100 Insulin) ipratropium bromide 21 mcg (0.03 1 spray intranasal TID 11/25/21 09/18/23 09/18/23 09:00 History %) nasal spray pen needle, diabetic 32 gauge x 11/25/21 09/18/23 Unknown History (Pentips) levothyroxine 112 mcg tablet 112 mcg PO DAILY@0600 12/16/21 09/18/23 09/18/23 09:00 History omeprazole 40 mg capsule,delayed 40 mg PO BID 12/16/21 09/18/23 09/18/23 09:00 History release zolpidem 10 mg tablet 10 mg PO BEDTIME 12/16/21 09/18/23 Unknown History clonazepam 1 mg tablet 1 mg PO BID 03/31/22 09/18/23 09/18/23 09:00 History oxycodone-acetaminophen 10 mg-325 1 tab PO Q4H PRN severe pain 03/31/22 09/18/23 Unknown History mg tablet gabapentin 100 mg capsule 100 mg PO BID 11/02/22 09/18/23 09/18/23 09:00 History amiodarone 200 mg tablet 200 mg PO DAILY 09/18/23 09/18/23 09/18/23 09:00 History atorvastatin 80 mg tablet 80 mg PO BEDTIME 09/18/23 09/18/23 Unknown History clotrimazole 1 % topical cream 1 appl topical BID 09/18/23 09/18/23 09/18/23 09:00 History insulin aspart U-100 100 unit/mL 1 sliding scale dose subcut TIDAC 09/18/23 09/18/23 09/18/23 09:00 History (3 mL) subcutaneous pen (Novolog FlexPen U-100 Insulin aspart) lidocaine 5 % topical patch 1 patch topical DAILY 09/18/23 09/18/23 09/18/23 09:00 History lidocaine-prilocaine 2.5 %-2.5 % 1 appl topical DAILY PRN DIALYSIS 09/18/23 09/18/23 Unknown History topical cream sevelamer carbonate 800 mg tablet 1,600 mg PO TIDWM 09/18/23 09/18/23 09/18/23 09:00 History Physical Exam Vital Signs: Last Vital Signs Temp 98.3 F 09/19/23 07:54 Pulse 61 09/19/23 08:03 Resp 18 09/19/23 07:54 BP 111/63 09/19/23 08:03 Pulse Ox 97 09/19/23 07:54 O2 Del Method Room Air 09/19/23 07:54 BMI result Body Mass Index 30.8 Awake. Comfortable. Neck is supple. Mucosa moist. Lungs bilateral scattered rhonchi. Heart S1-S2 heard no gallop. Abdomen soft. Extremities no edema. No involuntary movements. No myoclonus. Results Lab Results 09/18/23 11:06 09/19/23 06:02 Lab results: Chemistry 09/18/23 09/18/23 09/19/23 11:06 14:13 06:02 Sodium 132 L 135 133 L Potassium 7.3 H* 6.7 H* 4.8 D Carbon Dioxide 26 26 26 BUN 57 H 59 H 39 H Creatinine 11.90 H* 11.95 H* 8.89 H* Calcium 9.0 D 9.0 9.1 Hematology 09/18/23 11:06 WBC 7.6 Hgb 11.9 L Plt Count 147 L D Assessment and Plan (1) End stage renal disease: Status: Acute Plan 62-year-old man with end stage renal disease he is being seen for severe hyperkalemia. He underwent hemodialysis yesterday with a low-potassium bath yesterday to correct hyperkalemia. At present serum creatinine potassium is in the normal range. He is being dialyzed as per Tuesday schedule. Volume status seems optimal. No overt signs or symptoms of uremia. We will follow along with the team and concur with current medical management. Procedures Date of Service Date of Service: 09/20/23
[2023-09-19] MEDS: oxyCODONE HCl Immed Release 5 MG TABLET 10 MG PO (12:02)
[2023-09-19 12:07] LABS: Appearance Urine Clear; Color Urine Dark Yellow; Glucose Urine UA Negative (Negative); Leukocyte Esterase Urine Small (1+) (Negative); Nitrite Urine Negative (Negative); UMIC TRIGGER UACC YES; Urine Blood Negative (Negative); Urine Ketones Trace mg/dL (Negative); Urine Protein 100 (2+) mg/dL (Neg-Trace)
[2023-09-19 12:14] LABS: Bacteria Urine None Seen (None Seen); RBC Urine 0-2 /HPF (0-2); Squamous Epithelial Cell Urine 0-2 /HPF (0-2); UACC Culture Trigger YES; WBC Urine 0-5 /HPF (0-5)
[2023-09-19 14:02] VITALS: BP 116/64; PULSE 63; RESP 20; TEMP 37; O2SAT 97
[2023-09-19 14:02] LABS: Glucose, Whole Blood 112 mg/dL (60-115)
--- NOTE | 2023-09-19 14:52 | MHC.CM.PN ---
IMM 09/18. Pt lives at home with his /HCP (copy of HCP requested). 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 Pt uses a cane and has an electric wheelchair. Pts will transport him home. PCP: DO Macie Link
[2023-09-19 15:37] VITALS: BP 126/60; PULSE 64; RESP 17; TEMP 36.7; O2SAT 97
[2023-09-19] MEDS: Docusate Sodium 100 MG CAPSULE PO (15:42)
--- NOTE | 2023-09-19 15:43 | PM.DS ---
DS: Providers Provider Date of Service: 09/19/23 Date of admission: 09/18/23 14:05 Primary care physician: Macie Link DO Consults: 09/18/23 14:20 Consult to Nephrology Routine Consulting Provider: [facility] Reason for consultation: ESRD on HD; hyperkalemia k 7.3 Has provider been notified: Yes 09/19/23 08:36 Consult to Hematology / Oncology Routine Consulting Provider: Ellen Ge Reason for consultation: ? iliac lesion DS: Diagnosis Discharge Diagnosis (1) Metastasis to bone: Status: Acute (2) Groin pain: Status: Acute DS: Summary Hospital Course Hospital Course: History and physical as per admitting provider. This is a 62-year-old man with multiple medical problems who presents to the emergency department with right leg pain. Patient reports he began having right groin pain approximately 2 days ago. He denies any fall or trauma to the area. He denies any leg weakness. In the emergency department his workup was significant for potassium of 7.3. He does have a history of end-stage renal disease and receives hemodialysis Tuesday and Tuesday, his last hemodialysis was TuesdaySeptember 15 and he states that he received a full session of dialysis. The case was discussed with the commercial management accountant rugby [employer] footballer who recommended admitting the patient for urgent dialysis due to hyperkalemia. Patient denies any shortness of breath, no hypoxia documented. Blood pressure stable. Ultrasound of the right lower extremity and a CT scan of the abdomen is pending at the time of admission. Right groin pain. Likely secondary to possible lytic lesions. History of renal cell carcinoma status post nephrectomy. PET scan from [facility] on 08/26/2023 showing multiple lytic lesions throughout the T-spine. Discussed case with Oncology. Patient will need to follow with Hematology/Oncology at [facility] (Dr. Walsh). Patient is to follow-up with his provider there. This was explained to the patient and he is in agreement although he reported that he is flying to [place] on Tuesday to visit his mother who is ill. Due to the groin pain femur x-rays were done bilaterally which were negative for any acute fracture or impending fracture. Ultrasounds negative for DVT. Hyperkalemia. Received calcium gluconate, sodium bicarb, Lokelma in the emergency department. Resolved subsequently and received dialysis. End-stage renal disease on dialysis. Completed hemodialysis today Atrial flutter. Normal sinus rhythm. Continue amiodarone and Eliquis Coronary artery disease. Continue statin and Coreg Diabetes mellitus type 2. Continue home medications Hypertension. Continue Norvasc and Coreg GERD. Continue PPI Hypothyroidism. Continue Synthroid Obstructive sleep apnea. CPAP at night Time Attestation Discharge Coordination Time (in mins): 45 Quality: Safe Use of Opioids Does Pt have an Active Cancer Diagnosis on the Problem List?: No Quality: Stroke Does the patient have a stroke diagnosis?: No Physical Exam Vital Signs: Vital Signs: Last Vital Signs Temp 98.1 F 09/19/23 15:37 Pulse 64 09/19/23 15:37 Resp 17 09/19/23 15:37 BP 126/60 09/19/23 15:37 Pulse Ox 97 09/19/23 15:37 O2 Del Method Room Air 09/19/23 15:37 BMI result Body Mass Index 30.8 Appearing in no acute distress head is normocephalic atraumatic eyes pupils are PERRLA sclera is anicteric mouth throat mucous membranes are intact and moist neck is supple no lymphadenopathy, no JVD noted lung sounds are clear to auscultation heart regular rate rhythm, clear S1, S2 positive bowel sounds, abdomen is soft, nontender neuro patient is alert x3, no focal deficits DS: Data Data Completed and Pending Labs on day of discharge: Laboratory Results - last 24 hr 09/18/23 09/18/23 09/19/23 17:56 19:36 06:02 Hold Purple Top SEE NOTE Sodium 133 L Potassium 4.8 D Chloride 94 L Carbon Dioxide 26 Anion Gap 18 BUN 39 H Creatinine 8.89 H* Estim Creat Clear Calc 8.7 Estimated GFR 6 POC Glucose 118 H 144 H Random Glucose 153 H Calcium 9.1 Urine Color Urine Appearance Urine pH Ur Specific [place] Urine Protein Urine Glucose (UA) Urine Ketones Urine Blood Urine Nitrite Ur Leukocyte Esterase Urine RBC Urine WBC Ur Squamous Epith Cells Urine Bacteria Hyaline Casts 09/19/23 09/19/23 09/19/23 07:17 11:50 13:57 Hold Purple Top Sodium Potassium Chloride Carbon Dioxide Anion Gap BUN Creatinine Estim Creat Clear Calc Estimated GFR POC Glucose 147 H 112 Random Glucose Calcium Urine Color Dark Yellow Urine Appearance Clear Urine pH 6.0 Ur Specific [place] 1.020 Urine Protein 100 (2+) H Urine Glucose (UA) Negative Urine Ketones Trace Urine Blood Negative Urine Nitrite Negative Ur Leukocyte Esterase Small (1+) H Urine RBC 0-2 Urine WBC 0-5 Ur Squamous Epith Cells 0-2 Urine Bacteria None Seen Hyaline Casts 3-5 Discharge Plan Discharge Anticipated Discharge Date/Time: 09/19/23 15:41 Patient Disposition: Home, Self-Care Discharge Diagnosis: Groin pain Hyperkalemia End-stage renal disease on dialysis Referrals: Cade Walsh MD [Physician] - 1 Week (Follow-up regarding PET scan results) Macie Link DO [Primary Care Provider] - 1 Week Discharge Medications: Continued carvedilol 12.5 mg tablet 12.5 mg PO BID Qty: 60 5RF Eliquis 5 mg tablet 5 mg PO BID Qty: 60 6RF (DME) FreeStyle Lite Strips Strip Not Applicable albuterol sulfate [ProAir HFA] 90 mcg/actuation HFA aerosol inhaler 2 puff PO Q6H PRN (Reason: Shortness Of Breath) ipratropium bromide 21 mcg (0.03 %) spray,non-aerosol 1 spray intranasal TID insulin glargine [Lantus Solostar U-100 Insulin] 100 unit/mL (3 mL) insulin pen 34 unit subcut DAILY (DME) pen needle, diabetic [Pentips] 32 gauge x 5/32 needle MISCELLANEOUS QID omeprazole 40 mg capsule,delayed release(DR/EC) 40 mg PO BID zolpidem 10 mg tablet 10 mg PO BEDTIME levothyroxine 112 mcg tablet 112 mcg PO DAILY@0600 clonazepam 1 mg tablet 1 mg PO BID oxycodone-acetaminophen 10-325 mg tablet 1 tab PO Q4H PRN (Reason: severe pain) Rx Instructions: 10 mg every 4 hours atorvastatin 80 mg tablet 80 mg PO BEDTIME lidocaine 5 % adhesive patch,medicated 1 patch topical DAILY clotrimazole 1 % cream 1 appl topical BID insulin aspart U-100 [Novolog FlexPen U-100 Insulin] 100 unit/mL (3 mL) insulin pen 1 sliding scale dose subcut TIDAC sevelamer carbonate 800 mg tablet 1,600 mg PO TIDWM amiodarone 200 mg tablet 200 mg PO DAILY lidocaine-prilocaine 2.5-2.5 % cream 1 appl topical DAILY PRN (Reason: DIALYSIS) nitroglycerin 0.4 mg tablet, sublingual 0.4 mg sublingual Q5M PRN (Reason: chest pain) Qty: 20 2RF Rx Instructions: do not exceed 3 doses per episode amlodipine 10 mg tablet 10 mg PO DAILY Qty: 60 0RF gabapentin 100 mg capsule 100 mg PO BID Discharge Orders: Discharge Order (Routine); Ordered 09/19/23 Ordered By: Anushka Gibson Diet: Advance to usual diet Activity on Discharge: As tolerated Stand Alone Forms: Patient Portal Discharge page Print Language: Arabic Care Plan Goals: Last dialysis 09/19/23, continue regular schedule Health Concerns: Groin pain Hyperkalemia End-stage renal disease on dialysis Plan of Treatment: Follow-up with Dr. Walsh, oncology regarding PET scan results showing multiple lytic lesions throughout the thoracolumbar spine Take all medications as prescribed Assessment: See discharge summary
[2023-09-19 15:57] LABS: Glucose, Whole Blood 146 mg/dL (60-115)
== END 2023-09-19 17:45 | disposition home or self-care (01) | DRG 640 ==
LOC: HO.ED 14:10 → HO.EDOVER 14:14 → HO.IMC 17:27
PROVIDERS: Admitting Provider Physician Assistant Medical; Emergency Provider Emergency Medicine; PCP Family Medicine; Visit Provider Nurse Practitioner Acute Care
DX: E87.5 Hyperkalemia (principal); N18.6 End stage renal disease; I12.0 Hypertensive chronic kidney disease with stage 5 chronic kidney disease or end stage renal disease; I48.92 Unspecified atrial flutter; C79.51 Secondary malignant neoplasm of bone; I48.91 Unspecified atrial fibrillation; K21.9 Gastro-esophageal reflux disease without esophagitis; G47.33 Obstructive sleep apnea (adult) (pediatric); I25.10 Atherosclerotic heart disease of native coronary artery without angina pectoris; E11.22 Type 2 diabetes mellitus with diabetic chronic kidney disease; Z87.891 Personal history of nicotine dependence; Z90.5 Acquired absence of kidney; Z85.528 Personal history of other malignant neoplasm of kidney; Z99.2 Dependence on renal dialysis; Z79.01 Long term (current) use of anticoagulants; Z79.4 Long term (current) use of insulin; Z79.890 Hormone replacement therapy; Z79.899 Other long term (current) drug therapy
CPT/HCPCS: 36415; 73552; 74176; 80048; 81001; 82550; 82947; 85025; 87086; 90999; 93005; 93971; 99285; J0613; J1170; J1885

== ENCOUNTER → 2023-09-18 11:58 | Outpatient (BNV) | payer MEDICARE, MEDICAID, SELFPAY | PROVIDERS: Admitting Provider Physician Assistant Medical; Emergency Provider Emergency Medicine; PCP Family Medicine; Visit Provider Internal Medicine Cardiovascular Disease | DX: E87.5 Hyperkalemia (principal) | CPT/HCPCS: 93010 ==

== ENCOUNTER → 2023-09-18 14:05 | Outpatient (BNV) | payer MEDICARE, MEDICAID, SELFPAY | PROVIDERS: Admitting Provider Physician Assistant Medical; Emergency Provider Emergency Medicine; PCP Family Medicine; Visit Provider Internal Medicine | DX: Z85.528 Personal history of other malignant neoplasm of kidney (principal); M89.9 Disorder of bone, unspecified | CPT/HCPCS: 99222 ==

== ENCOUNTER → 2023-09-18 14:05 | Outpatient (BNV) | payer MEDICARE, MEDICAID, SELFPAY | PROVIDERS: Admitting Provider Physician Assistant Medical; Emergency Provider Emergency Medicine; PCP Family Medicine; Visit Provider Physician Assistant Medical | DX: C79.51 Secondary malignant neoplasm of bone (principal); R10.30 Lower abdominal pain, unspecified | CPT/HCPCS: 99223; 99239 ==

== ENCOUNTER → 2023-09-18 14:05 | Outpatient (BNV) | payer MEDICARE, MEDICAID, SELFPAY | PROVIDERS: Admitting Provider Physician Assistant Medical; Emergency Provider Emergency Medicine; PCP Family Medicine; Visit Provider Internal Medicine Hypertension Specialist | DX: N18.6 End stage renal disease (principal); Z99.2 Dependence on renal dialysis | CPT/HCPCS: 99223 ==

== ENCOUNTER 2023-10-27 12:31 | Outpatient (AMB) | payer MEDICARE, MEDICAID, SELFPAY ==
--- NOTE | 2023-10-27 13:21 | MHC.OFFVIS ---
Vital Signs 10/27/23 13:28 Height 5 ft 6 in Weight 200 lb BMI 32.3 Intake Visit Reasons: Right knee pain Intake Note: Joshua is a 63 year old male who presents with bilateral knee pains, right greater than left. The patient describes his pain as sharp in nature. He injured his right knee approximately 1 year ago. He twisted his knee and had acute onset of pain. He has done physical therapy exercises which aggravated his pain. The patient has failed the last 6 weeks of conservative treatment. He does take Percocet for chronic low back pain and neck pain. The Percocet gives him minimal relief of his knee pain. He states that his right knee will give out several times per day. He has had injections in the past which gave him no relief. Allergies No Known Allergies Allergy (Verified 10/27/23 13:28) Medication List - Last Reconciled 10/28/23 by Mathew Cheema MD albuterol sulfate 90 mcg/actuation (ProAir HFA) 2 puffs PO Q6H PRN amiodarone 200 mg PO DAILY amlodipine 10 mg PO DAILY apixaban (Eliquis) 5 mg PO BID atorvastatin 80 mg PO BEDTIME blood sugar diagnostic (FreeStyle Lite Strips) carvedilol 12.5 mg PO BID clonazepam 1 mg PO BID clotrimazole 1% 1 appl topical BID colchicine mg PO gabapentin 100 mg PO BID insulin aspart U-100 (Novolog FlexPen U-100 Insulin aspart) 1 sliding scale dose subcut TIDAC insulin glargine (Lantus Solostar U-100 Insulin) 34 units subcut DAILY ipratropium bromide 1 spray intranasal TID levothyroxine 112 mcg PO DAILY@0600 lidocaine 5% 1 patch topical DAILY lidocaine-prilocaine 2.5-2.5 % 1 appl topical DAILY PRN loratadine 10 mg PO Q OTHER DAY nitroglycerin 0.4 mg sublingual Q5M PRN omeprazole 40 mg PO BID oxycodone-acetaminophen 10-325 mg 1 tab PO Q4H PRN pen needle, diabetic (Pentips) semaglutide (Ozempic) mg subcut sevelamer carbonate 1,600 mg PO TIDWM zolpidem 10 mg PO BEDTIME [facility] Medical History (Updated 09/27/23 @ 00:02 by Background Daemon) History of cardioversion Hx of sleep apnea GERD (gastroesophageal reflux disease) Atrial flutter Colon adenomas Asthma Colon cancer screening End stage renal disease Type 2 diabetes mellitus with unspecified complications Essential hypertension Normocytic anemia Non-cardiac chest pain CAD (coronary artery disease) CVA (cerebral vascular accident) Hypertension Surgical History (Updated 09/19/23 @ 12:05 by Ellen Ge MD) History of colonoscopy H/O neck surgery Hx of colonoscopy History of bladder surgery Stented coronary artery History of nephrectomy Family History Other No family history of coronary artery disease Social History Household Members: Spouse Housing: Apartment Are you a primary patient care director to a significant other at home: No Do you presently have visiting nurse or other home services: Yes Alcohol intake: former Patient Tobacco Use Status: Former Tobacco user Tobacco use type: Cigarette service: No Current occupational status: disabled Physical Exam Vital Signs: BMI result Body Mass Index 32.3 Const Other: Well-nourished well-developed very friendly male awake alert and oriented x3 in no acute distress Extrem Other: Bilateral lower extremity examination shows good capillary refill, no skin lesions noted, normal sensation light touch Right knee examination shows a minimal effusion, minimal crepitus with range of motion, tenderness along his medial joint line, positive Osmar's test, no instability Results Reviewed Results Reviewed: Standing full weight-bearing x-rays of the patient's right knee show mild diffuse joint space narrowing, no acute bony abnormalities Assessment & Plan Assessment & Plan (1) Right knee pain: Code(s): M25.561 - Pain in right knee Category: Medical Plan Mr. Akil Pretty presents with right knee pain and mechanical symptoms most likely due to a tear of his medial meniscus. Thus, I will send the patient for an MRI of his right knee for further evaluation. I will see the patient back once the MRI is available to discuss the findings and treatment options. Feel free to call me at any time should questions regarding his orthopedic management arise. I spent 21 minutes in reviewing the patient's records and imaging studies, seeing the patient and documenting in the medical record. Orders: Orders MR knee RT wo con 10/27/23 M25.561 - Pain in right knee Coding Level of Care Code New Pt Level 3 (33144) Diagnoses Right knee pain M25.561
[2023-10-27 13:28] VITALS: BMI 32.3
== END 2023-10-27 13:43 | disposition home or self-care (01) ==
PROVIDERS: PCP Family Medicine; Visit Provider Orthopaedic Surgery
DX: M25.561 Pain in right knee (principal)
CPT/HCPCS: 99213

== ENCOUNTER → 2023-10-27 | Outpatient (BNVA) | payer MEDICARE, MEDICAID, SELFPAY | PROVIDERS: PCP Family Medicine; Visit Provider Orthopaedic Surgery | DX: M25.561 Pain in right knee (principal) | CPT/HCPCS: 99212 ==

== ENCOUNTER 2023-11-03 10:31 | Outpatient (REF) | payer MEDICARE, MEDICAID, SELFPAY ==
[2023-11-03 11:25] LABS: MANUAL DIFF FLAG NO
[2023-11-03 11:33] LABS: Basophils Absolute Auto 0.1 X10*3/uL (0.0-0.2); Basophils Percent Auto 0.8 % (0-2); Eosinophils Absolute Auto 0.1 X10*3/uL (0.0-0.4); Eosinophils Percent Auto 1.8 % (0-4); Hematocrit 38.3 % (42.0-52.0); Hemoglobin 12.6 g/dl (14.0-18.0); INTERNATIONAL NORM RATIO 1.2 (0.9-1.1); Imm Gran Abs Auto 0.03 X10*3/uL (0.00-0.03); Imm Gran Pct Auto 0.5 % (0.0-0.4); Lymphocytes Absolute Auto 1.1 X10*3/uL (1.2-4.9); Lymphocytes Percent Auto 18.7 % (20-40); Mean Corpuscular HGB Conc 32.9 g/dl (31.0-36.0); Mean Corpuscular Volume 94.3 fL (80.0-98.0); Mean Platelet Volume 11.5 fL (9.4-12.4); Monocytes Absolute Auto 0.7 X10*3/uL (0.1-1.2); Monocytes Percent Auto 11.2 % (2-11); Neutrophils Absolute Auto 4.1 x10*3/uL (2.0-8.3); Platelet Count 178 X10*3/uL (160-400); Red Blood Count 4.06 X10*6/uL (4.60-5.80); Red Cell Distribution Width 13.7 % (11.0-16.0); White Blood Count 6.1 X10*3/uL (4.8-10.8)
[2023-11-03 11:36] LABS: Partial Thromboplastin Time 31.4 SEC (26.0-36.8)
[2023-11-03 12:07] LABS: Alanine Aminotransferase 71 U/L (0-40); Albumin Level 4.5 g/dL (3.5-5.0); Alkaline Phosphatase 231 U/L (39-117); Anion Gap 18 (12-20); Aspartate Amino Transferase 75 U/L (5-37); Bilirubin Direct 0.3 mg/dL (0.0-0.5); Blood Urea Nitrogen 40 mg/dL (9-16); Calcium 9.7 mg/dL (8.4-10.2); Carbon Dioxide 29 mmol/L (22-29); Chloride 98 mmol/L (96-108); Cholesterol 112 mg/dL (<200); Estimated Glomerular Filt Rate 7; Glucose Random 157 mg/dL (60-115); HDL Cholesterol 32 mg/dL (>40); LDL Cholesterol Calculated 43 mg/dL (<100); Potassium 5.8 mmol/L (3.3-5.1); Sodium 139 mmol/L (135-145); Total Protein 7.6 g/dL (6.5-8.0); Triglycerides 188 mg/dL (<150)
[2023-11-09 08:59] LABS: Fructosamine 425 umol/L (205-285)
== END 2023-11-03 10:32 | disposition home or self-care (01) ==
LOC: HO.HHCL 10:31
PROVIDERS: Visit Provider Family Medicine
DX: Z01.818 Encounter for other preprocedural examination (principal); M54.2 Cervicalgia; G89.29 Other chronic pain; E11.22 Type 2 diabetes mellitus with diabetic chronic kidney disease; N18.6 End stage renal disease; Z99.2 Dependence on renal dialysis; Z79.4 Long term (current) use of insulin
CPT/HCPCS: 36415; 80048; 80061; 80076; 80307; 82985; 85025; 85610; 85730

== ENCOUNTER 2023-12-15 16:55 | Outpatient (REF) | payer MEDICARE, MEDICAID, SELFPAY ==
--- NOTE | ~2023-12-15 | MR_ITS ---
EXAMINATION: MR KNEE WITHOUT CONTRAST, RIGHT CLINICAL INFORMATION: Right knee pain. Difficulty with stairs. COMPARISON: Right femur radiographs dated 09/19/2023 and right knee MRI dated 09/07/2016. TECHNIQUE: MRI of the knee without contrast was performed using routine sequences on a high-field scanner. FINDINGS: MENISCI: Medial Meniscus: Minimal degenerative intrasubstance signal within the posterior body. Possible minimal inner margin fraying of the posterior body/posterior horn junction. Findings are decreased in prominence when compared to the prior examination. Lateral Meniscus: Intact. LIGAMENTS: Cruciate: Increased T2 signal within the anterior cruciate ligament which could represent early mucoid degeneration, slightly more prominent when compared to the prior MRI. No evidence of acute injury. Intact posterior cruciate ligament. Collateral: Intact. EXTENSOR MECHANISM: Intact quadriceps and patellar tendons. Normal patellofemoral alignment. ARTICULAR CARTILAGE/BONE: Patellofemoral Compartment: Patellar articular cartilage signal heterogeneity with full-thickness patellar median ridge fissuring where there is subchondral cystic change. Fibrillation at the medial patellar facet. Tiny marginal osteophytes. Findings are slightly progressed when compared to the prior examination. Medial Compartment: Intact articular cartilage. Lateral Compartment: Intact articular cartilage. JOINT FLUID AND BURSAE: Trace joint effusion and trace Johnson's cyst. MUSCLES/TENDONS: Increased T2 signal within the lateral gastrocnemius and soleus muscles, consistent with mild strains. MR/MR knee RT wo con IMPRESSION: 1. Minimal degenerative intrasubstance signal within the posterior medial meniscal body with possible minimal inner margin fraying of the posterior body/posterior horn junction, decreased in prominence when compared to the prior examination. 2. Early mucoid degeneration of the anterior cruciate ligament, slightly more prominent when compared to the prior examination. No evidence of acute ligament injury. 3. Mild patellofemoral osteoarthritis, slightly progressed when compared to the prior examination. Trace joint effusion and trace Johnson's cyst. 4. Mild strains of the lateral gastrocnemius and soleus muscles.
== END 2023-12-15 16:56 | disposition home or self-care (01) ==
LOC: HO.MRI 16:55
PROVIDERS: PCP Family Medicine; Visit Provider Orthopaedic Surgery
DX: M25.561 Pain in right knee (principal)
CPT/HCPCS: 73721

== ENCOUNTER 2023-12-20 11:38 | Outpatient (REF) | payer MEDICARE, MEDICAID, SELFPAY ==
[2023-12-20 13:57] LABS: Alanine Aminotransferase 26 U/L (0-40); Albumin Level 4.4 g/dL (3.5-5.0); Alkaline Phosphatase 185 U/L (39-117); Aspartate Amino Transferase 20 U/L (5-37); Bilirubin Direct 0.2 mg/dL (0.0-0.5); Bilirubin Total 0.6 mg/dL (0.0-1.0); Gamma Glutamyl Transpeptidase 110 U/L (11-51); Total Protein 7.6 g/dL (6.5-8.0)
[2023-12-20 17:06] LABS: Free T4 (Free Thyroxine) 1.15 ng/dL (0.71-1.85); Thyroid Stimulating Hormone 8.37 uIU/mL (0.32-4.0)
[2023-12-25 09:13] LABS: Fructosamine 373 umol/L (205-285)
== END 2023-12-20 11:39 | disposition home or self-care (01) ==
LOC: HO.HHCL 11:38
PROVIDERS: Visit Provider Family Medicine
DX: E11.22 Type 2 diabetes mellitus with diabetic chronic kidney disease (principal); N18.6 End stage renal disease; E03.9 Hypothyroidism, unspecified; R79.89 Other specified abnormal findings of blood chemistry; Z99.2 Dependence on renal dialysis; Z79.4 Long term (current) use of insulin
CPT/HCPCS: 36415; 80076; 82977; 82985; 84439; 84443

== ENCOUNTER 2024-01-17 07:55 | Outpatient (REF) | payer MEDICARE, MEDICAID, SELFPAY ==
--- NOTE | ~2024-01-17 | US_ITS ---
EXAMINATION: US ABDOMEN COMPLETE CLINICAL INFORMATION: Elevated alkaline phosphatase. COMPARISON: CT abdomen and pelvis 09/18/2023. Ultrasound renal 11/25/2021 and 06/03/2015.. TECHNIQUE: Real-time imaging of the abdominal viscera. FINDINGS: PANCREAS: Obscured by bowel gas. ABDOMINAL AORTA: Visualized aorta is normal in caliber however portions are obscured by bowel gas. INFERIOR VENA CAVA: Visualized portions are normal. LIVER: Liver is enlarged measuring 19.7 cm in span, previously 21.1 cm. The liver contour is normal. Mildly increased hepatic echogenicity which can be seen in the setting of hepatic steatosis or underlying liver disease. No focal hepatic lesion. There is no intrahepatic biliary duct dilatation seen. GALLBLADDER: Surgically absent. COMMON BILE DUCT: Normal in caliber measuring 0.9 cm in diameter. RIGHT KIDNEY: Surgically absent. LEFT KIDNEY: Benign-appearing renal cyst measuring 1 cm. No follow up imaging is recommended. Echogenic foci without twinkle artifact or shadowing may reflect vascular reflectors. No definite nephrolithiasis. No hydronephrosis. The kidney measures 11.2 cm in maximum dimension. SPLEEN: Normal. The spleen measures 11.5 cm in maximum dimension. FREE FLUID: None. US/US abdomen complete IMPRESSION: 1. Hepatomegaly. Mildly increased hepatic echogenicity which can be seen in the setting of hepatic steatosis or underlying liver disease. 2. Status post cholecystectomy. No intra or extrahepatic biliary duct dilatation. 3. Right kidney is surgically absent. 4. The pancreas and portions of the aorta were obscured by bowel gas. Electronically signed by: Alice Decker MD 02/06/2024 06:17 PM EDT
== END 2024-01-17 07:56 | disposition home or self-care (01) ==
LOC: HO.US 07:55
PROVIDERS: PCP Family Medicine; Visit Provider Family Medicine
DX: R74.8 Abnormal levels of other serum enzymes (principal); M17.0 Bilateral primary osteoarthritis of knee
CPT/HCPCS: 76700; 99212

== ENCOUNTER 2024-01-17 12:36 | Outpatient (AMB) | payer MEDICARE, MEDICAID, SELFPAY ==
[2024-01-17 12:41] VITALS: BMI 32.3
--- NOTE | 2024-01-17 12:41 | MHC.OFFVIS ---
Vital Signs 01/17/24 12:41 Height 5 ft 6 in Weight 200 lb BMI 32.3 Intake Visit Reasons: Bilateral knee pain Intake Note: Joshua is a 63 year old male who presents with complaints of progressively worsening bilateral knee pains. He describes his pains as sharp in nature. Most of his pain is along the anterior aspects of his bilateral knees. He denies any locking or giving way. His symptoms have gotten worse over the last year in spite of continued non operative treatments. Has failed the last 3 months of conservative treatment consisting of a home exercise program, topical creams, and Tylenol. He is not able to take anti-inflammatory medicines because he is on Eliquis. Has had cortisone injections in the past which gave him minimal relief. He has not had a viscosupplementation injection. He wishes to hold off on surgery if at all possible. Allergies No Known Allergies Allergy (Verified 01/17/24 12:43) Medication List - Last Reconciled 01/17/24 by Mathew Cheema MD albuterol sulfate 90 mcg/actuation (ProAir HFA) 2 puffs PO Q6H PRN amiodarone 200 mg PO QAM amlodipine 10 mg PO DAILY apixaban (Eliquis) 5 mg PO BID 90 days atorvastatin 80 mg PO BEDTIME blood sugar diagnostic (FreeStyle Lite Strips) carvedilol 12.5 mg PO BID clonazepam 1 mg PO BID clotrimazole 1% 1 appl topical BID colchicine mg PO gabapentin 100 mg PO BID insulin aspart U-100 (Novolog FlexPen U-100 Insulin aspart) 1 sliding scale dose subcut TIDAC insulin glargine (Lantus Solostar U-100 Insulin) 34 units subcut DAILY ipratropium bromide 1 spray intranasal TID levothyroxine 112 mcg PO DAILY@0600 lidocaine 5% 1 patch topical DAILY lidocaine-prilocaine 2.5-2.5 % 1 appl topical DAILY PRN loratadine 10 mg PO Q OTHER DAY nitroglycerin 0.4 mg sublingual Q5M PRN omeprazole 40 mg PO BID oxycodone-acetaminophen 10-325 mg 1 tab PO Q4H PRN pen needle, diabetic (Pentips) semaglutide (Ozempic) mg subcut sevelamer carbonate 1,600 mg PO TIDWM zolpidem 10 mg PO BEDTIME [facility] Medical History (Updated 01/17/24 @ 13:14 by Mathew Cheema MD) History of cardioversion Hx of sleep apnea GERD (gastroesophageal reflux disease) Atrial flutter Colon adenomas Asthma Colon cancer screening End stage renal disease Type 2 diabetes mellitus with unspecified complications Essential hypertension Normocytic anemia Non-cardiac chest pain CAD (coronary artery disease) CVA (cerebral vascular accident) Hypertension Surgical History (Updated 09/19/23 @ 12:05 by Ellen Ge MD) History of colonoscopy H/O neck surgery Hx of colonoscopy History of bladder surgery Stented coronary artery History of nephrectomy Family History Other No family history of coronary artery disease Social History Household Members: Spouse Housing: Apartment Are you a primary director of career resources to a significant other at home: No Do you presently have visiting nurse or other home services: Yes Alcohol intake: former Patient Tobacco Use Status: Former Tobacco user Tobacco use type: Cigarette service: No Current occupational status: disabled Physical Exam Vital Signs: BMI result Body Mass Index 32.3 Const Other: Well-nourished well-developed very friendly male awake alert and oriented x3 in no acute distress Extrem Other: Bilateral lower extremity examination shows good capillary refill, no skin lesions noted, normal sensation light touch Bilateral knee examination shows minimal effusions, palpable crepitus with range of motion, pain with range of motion, negative Osmar's test, no instability Results Reviewed Results Reviewed: Standing full weight-bearing x-rays of the patient's bilateral knee show mild joint space narrowing most significant in the patellofemoral joints, no acute bony abnormalities MRI of the patient's right knee shows mild to moderate degenerative joint disease most significant in the patellofemoral joint, no evidence of meniscus tearing, no acute bony abnormalities Assessment & Plan Assessment & Plan (1) Pain in both knees: Code(s): M25.561 - Pain in right knee; M25.562 - Pain in left knee (2) Osteoarthritis of left knee: Code(s): M17.12 - Unilateral primary osteoarthritis, left knee Category: Medical (3) Osteoarthritis of right knee: Code(s): M17.11 - Unilateral primary osteoarthritis, right knee Category: Medical Plan Mr. Akil Pretty presents with bilateral knee pains due to osteoarthritis. I had a lengthy discussion with the patient regarding the treatment options. He wishes to hold off on surgery for as long as possible. I agree with this plan. He has not gotten good relief from cortisone injections in the past. Thus, I will see whether or not the patient's insurance company will cover a viscosupplementation injection for both of his knees. I will see him back once the injections are available. Feel free to call me at any time should questions regarding his orthopedic management arise. I spent 22 minutes in reviewing the patient's records and imaging studies, seeing the patient and documenting in the medical record. Coding Level of Care Code Est Pt Level 3 (65352) Diagnoses Pain in both knees M25.561; M25.562 Osteoarthritis of left knee M17.12 Osteoarthritis of right knee M17.11
== END 2024-01-17 13:10 | disposition home or self-care (01) ==
PROVIDERS: PCP Family Medicine; Visit Provider Orthopaedic Surgery
DX: M25.561 Pain in right knee (principal); M25.562 Pain in left knee; M17.0 Bilateral primary osteoarthritis of knee
CPT/HCPCS: 99213

== ENCOUNTER 2024-02-02 11:26 | Outpatient (REF) | payer MEDICARE, MEDICAID, SELFPAY ==
[2024-02-02 12:48] LABS: Digoxin < 0.2 ng/mL (0.8-2.0)
[2024-02-02 13:10] LABS: Free T4 (Free Thyroxine) 1.61 ng/dL (0.71-1.85); Thyroid Stimulating Hormone 0.07 uIU/mL (0.32-4.0)
[2024-02-06 22:09] LABS: Fructosamine 411 umol/L (205-285)
== END 2024-02-02 11:27 | disposition home or self-care (01) ==
LOC: HO.LAB 11:26
PROVIDERS: Emergency Medicine; PCP Family Medicine; Visit Provider Family Medicine
DX: E11.22 Type 2 diabetes mellitus with diabetic chronic kidney disease (principal); N18.6 End stage renal disease; Z99.2 Dependence on renal dialysis; Z79.4 Long term (current) use of insulin; E03.9 Hypothyroidism, unspecified; I48.92 Unspecified atrial flutter
CPT/HCPCS: 36415; 80162; 82985; 84439; 84443

== ENCOUNTER 2024-02-06 13:02 | Outpatient (AMB) | payer MEDICARE, MEDICAID, SELFPAY ==
[2024-02-06 13:26] VITALS: BP 120/70; PULSE 74; BMI 32.0
--- NOTE | 2024-02-06 13:26 | A.OFFVIS_ITS ---
Vital Signs 02/06/24 13:26 Height 5 ft 6 in Weight 198 lb 6.656 oz BMI 32.0 BP 120/70 Blood Pressure Location Rt brachial Position Sitting Pulse 74 Intake Visit Reasons: r/s follow-up appt Intake Note: Follow-up with ekg feeling good Project Management Intern Required: No Allergies No Known Allergies Allergy (Verified 01/17/24 12:43) Medication List - Last Reconciled 02/06/24 by Jose Guy MD albuterol sulfate 90 mcg/actuation (ProAir HFA) 2 puffs PO Q6H PRN amiodarone 200 mg PO QAM amlodipine 10 mg PO DAILY apixaban (Eliquis) 5 mg PO BID 90 days atorvastatin 80 mg PO BEDTIME blood sugar diagnostic (FreeStyle Lite Strips) carvedilol 12.5 mg PO BID clonazepam 1 mg PO BID clotrimazole 1% 1 appl topical BID colchicine mg PO gabapentin 100 mg PO BID insulin aspart U-100 (Novolog FlexPen U-100 Insulin aspart) 1 sliding scale dose subcut TIDAC insulin glargine (Lantus Solostar U-100 Insulin) 34 units subcut DAILY ipratropium bromide 1 spray intranasal TID levothyroxine 112 mcg PO DAILY@0600 lidocaine 5% 1 patch topical DAILY lidocaine-prilocaine 2.5-2.5 % 1 appl topical DAILY PRN loratadine 10 mg PO Q OTHER DAY nitroglycerin 0.4 mg sublingual Q5M PRN omeprazole 40 mg PO BID oxycodone-acetaminophen 10-325 mg 1 tab PO Q4H PRN pen needle, diabetic (Pentips) semaglutide (Ozempic) mg subcut sevelamer carbonate 1,600 mg PO TIDWM zolpidem 10 mg PO BEDTIME HPI Comments Details: Joshua comes for follow-up. He denies any cardiac symptoms. He has been doing well. He said recently was told that he is cancer free by [facility]. He has had no recurrent prolonged palpitation irregular heartbeat. He denies any exertional chest pain. No shortness of breath, orthopnea, PND. No bleeding issues or neurologic events. No issues with current medical therapy. [facility] Medical History History of cardioversion Hx of sleep apnea GERD (gastroesophageal reflux disease) Atrial flutter Colon adenomas Asthma Colon cancer screening End stage renal disease Type 2 diabetes mellitus with unspecified complications Essential hypertension Normocytic anemia Non-cardiac chest pain CAD (coronary artery disease) CVA (cerebral vascular accident) Hypertension Surgical History History of colonoscopy H/O neck surgery Hx of colonoscopy History of bladder surgery Stented coronary artery History of nephrectomy Family History Other No family history of coronary artery disease Social History Household Members: Spouse Housing: Apartment Are you a primary housekeeper child care to a significant other at home: No Do you presently have visiting nurse or other home services: Yes Alcohol intake: former Patient Tobacco Use Status: Former Tobacco user Tobacco use type: Cigarette service: No Current occupational status: disabled Review of Systems Const Denies chills, Denies fatigue, Denies fever(s), Denies frequent falls, Denies weakness, Denies weight gain and Denies weight loss ENT Denies dizziness Card Denies chest pain, Denies leg edema, Denies lightheadedness, Denies palpitations, Denies dyspnea, Denies dyspnea on exertion, Denies orthopnea and Denies other (loss of consciousness) Resp Denies cough, Denies dyspnea and Denies dyspnea on exertion GI Denies hematochezia and Denies change in stool character Musc Denies abnormal gait, Denies muscle weakness, Denies numbness, Denies radiating pain into limb and Denies tingling Neuro Denies abnormal gait, Denies dizziness, Denies frequent falls, Denies numbness, Denies tingling and Denies weakness Endo Denies fatigue and Denies palpitations Physical Exam Vital Signs: Last Vital Signs Pulse 74 02/06/24 13:26 BP 120/70 02/06/24 13:26 BMI result Body Mass Index 32.0 Const General: cooperative, healthy appearing, comfortable and no acute distress Orientation/consciousness: patient oriented x3 Neck Neck: Yes normal visual inspection and Yes no JVD Resp Effort & Inspection: normal respiratory effort Auscultation: clear to auscultation bilaterally, no crackles, no rales, no rhonchi and no wheezes Cardio Jugular venous distension: no JVD Rate: regular rate Rhythm: regular rhythm Heart sounds: S1 normal heart sound present, S2 normal heart sound present, no gallops, no murmurs and no rubs Peripheral pulses: Peripheral pulses 2+ throughout GI Inspection: Yes normal to inspection Neuro General: patient oriented x3 Extrem General: Yes normal to inspection, No no pedal edema and No calf tenderness Psych Appearance: grossly normal Mental Status: mental status grossly normal Speech and movement: Normal speech and movement present Office Procedures EKG Details: EKG shows normal sinus rhythm with first-degree AV block with nonspecific ST T wave changes with mildly prolonged QT interval [id number]-[id number], Complete Assessment & Plan Assessment & Plan (1) Atrial flutter: Code(s): I48.92 - Unspecified atrial flutter Category: Medical Plan: Paroxysmal atrial flutter has responded to amiodarone therapy and maintaining rhythm. Has developed significant improvement in his symptoms. No recurrent symptoms. Limited choice of antiarrhythmic drug therapy at this time continue amiodarone therapy. Will check for amiodarone toxicity at next appointment 6 months. Follow-up echocardiogram 6 months time. Continue full oral anticoagulation, currently on Eliquis, 5 mg b.i.d. as approved on patients with dialysis. (2) CAD (coronary artery disease): Code(s): I25.10 - Atherosclerotic heart disease of [place] coronary artery without angina pectoris Category: Medical Qualifiers: Associated angina: without angina Coronary Disease-Associated Artery/Lesion type: [place] artery [place] vs. transplanted heart: [place] heart Qualified Code(s): I25.10 - Atherosclerotic heart disease of [place] coronary artery without angina pectoris Plan: CAD with prior RCA stenting. No recurrent symptoms of angina at current point time. Continue full oral anticoagulation therefore would avoid antiplatelet therapy to reduce bleeding risk. Continue high-intensity statin therapy. Target goal LDL less than 70 mg/dL. At least annual lipid panel should be performed. Blood pressure is currently well optimized importance of good blood pressure control was discussed advised to monitor blood pressure intermittently at home. Continue aggressive diabetes management which is being pursue through office. Follow up in the clinic in 6 months time, sooner p.r.n.. Thank you for allowing me to partake in his care Coding Level of Care Code Est Pt Level 4 (47129) Diagnoses Atrial flutter I48.92 Coronary artery disease involving [place] coronary artery of [place] heart without angina pectoris I25.10 Associated angina: without angina Coronary Disease-Associated Artery/Lesion type: [place] artery [place] vs. transplanted heart: [place] heart CPT Codes EKG - CPT: 91682-[id number], Complete ([id number])
== END 2024-02-06 13:52 | disposition home or self-care (01) ==
PROVIDERS: PCP Family Medicine; Visit Provider Internal Medicine Cardiovascular Disease
DX: I48.92 Unspecified atrial flutter (principal); I25.10 Atherosclerotic heart disease of native coronary artery without angina pectoris
CPT/HCPCS: 93010; 99214

== ENCOUNTER → 2024-02-06 13:02 | Outpatient (BNVA) | payer MEDICARE, MEDICAID, SELFPAY | PROVIDERS: PCP Family Medicine; Visit Provider Internal Medicine Cardiovascular Disease | DX: I48.92 Unspecified atrial flutter (principal); I25.10 Atherosclerotic heart disease of native coronary artery without angina pectoris | CPT/HCPCS: 93005; 99212 ==

== ENCOUNTER 2024-02-09 09:48 | Outpatient (AMB) | payer MEDICARE, MEDICAID, SELFPAY ==
--- NOTE | 2024-02-09 09:53 | MHC.OFFVIS ---
Intake Visit Reasons: B/L Durolane Knee Injections Intake Note: Joshua is a 63 year old male who presents with complaints of progressively worsening bilateral knee pains. He describes his pains as sharp in nature. Most of his pain is along the anterior aspects of his bilateral knees. He denies any locking or giving way. His symptoms have gotten worse over the last year in spite of continued non operative treatments. Has failed the last 3 months of conservative treatment consisting of a home exercise program, topical creams, and Tylenol. He is not able to take anti-inflammatory medicines because he is on Eliquis. Has had cortisone injections in the past which gave him minimal relief. He has not had a viscosupplementation injection. He wishes to hold off on surgery if at all possible. Allergies No Known Allergies Allergy (Verified 02/09/24 09:53) Medication List - Last Reconciled 02/09/24 by Mathew Cheema MD albuterol sulfate 90 mcg/actuation (ProAir HFA) 2 puffs PO Q6H PRN amiodarone 200 mg PO QAM amlodipine 10 mg PO DAILY apixaban (Eliquis) 5 mg PO BID 90 days atorvastatin 80 mg PO BEDTIME blood sugar diagnostic (FreeStyle Lite Strips) carvedilol 12.5 mg PO BID clonazepam 1 mg PO BID clotrimazole 1% 1 appl topical BID colchicine mg PO gabapentin 100 mg PO BID insulin aspart U-100 (Novolog FlexPen U-100 Insulin aspart) 1 sliding scale dose subcut TIDAC insulin glargine (Lantus Solostar U-100 Insulin) 34 units subcut DAILY ipratropium bromide 1 spray intranasal TID levothyroxine 112 mcg PO DAILY@0600 lidocaine 5% 1 patch topical DAILY lidocaine-prilocaine 2.5-2.5 % 1 appl topical DAILY PRN loratadine 10 mg PO Q OTHER DAY nitroglycerin 0.4 mg sublingual Q5M PRN omeprazole 40 mg PO BID oxycodone-acetaminophen 10-325 mg 1 tab PO Q4H PRN pen needle, diabetic (Pentips) semaglutide (Ozempic) mg subcut sevelamer carbonate 1,600 mg PO TIDWM zolpidem 10 mg PO BEDTIME [facility] Medical History History of cardioversion Hx of sleep apnea GERD (gastroesophageal reflux disease) Atrial flutter Colon adenomas Asthma Colon cancer screening End stage renal disease Type 2 diabetes mellitus with unspecified complications Essential hypertension Normocytic anemia Non-cardiac chest pain CAD (coronary artery disease) CVA (cerebral vascular accident) Hypertension Surgical History History of colonoscopy H/O neck surgery Hx of colonoscopy History of bladder surgery Stented coronary artery History of nephrectomy Family History Other No family history of coronary artery disease Social History Household Members: Spouse Housing: Apartment Are you a primary health careers instructor to a significant other at home: No Do you presently have visiting nurse or other home services: Yes Alcohol intake: former Patient Tobacco Use Status: Former Tobacco user Tobacco use type: Cigarette service: No Current occupational status: disabled Physical Exam Const Other: Well-nourished well-developed very friendly male awake alert and oriented x3 in no acute distress Extrem Other: Bilateral lower extremity examination shows good capillary refill, no skin lesions noted, normal sensation light touch Bilateral knee examination shows minimal effusions, palpable crepitus with range of motion, pain with range of motion, range of motion from -3 degrees to 115 degrees, no instability Office Procedures Joint Injection/Aspiration Joint Injection/Aspiration Primary Site: right knee Prep: site was prepped using aseptic technique Injected: 60 mg of (Durolane viscosupplementation) and 1% plain lidocaine Procedure: The patient tolerated the procedure well Coding 73724 - Large joint Procedure code (CPT) selection complete Joint Injection/Aspiration Joint Injection/Aspiration Primary Site: left knee Prep: site was prepped using aseptic technique Injected: 60 mg of (Durolane viscosupplementation) and 1% plain lidocaine Procedure: The patient tolerated the procedure well Coding 65939 - Large joint Procedure code (CPT) selection complete Results Reviewed Results Reviewed: X-rays of the patient's bilateral knees taken previously show joint space narrowing, subchondral sclerosis, no acute bony abnormalities Assessment & Plan Assessment & Plan (1) Osteoarthritis of left knee: Code(s): M17.12 - Unilateral primary osteoarthritis, left knee Category: Medical (2) Osteoarthritis of right knee: Code(s): M17.11 - Unilateral primary osteoarthritis, right knee Category: Medical Plan Mr. Akil Pretty presents with bilateral knee pains due to osteoarthritis. I had a lengthy discussion with the patient regarding the treatment options. The risks and benefits of bilateral knee Durolane viscosupplementation injections were discussed at length with the patient. The patient wished to proceed. Tolerated the injections well. He will continue with his home exercise program. Will contact me prior to his follow-up appointment in 3 months should any questions or concerns arise. Feel free to call me at any time should questions regarding his orthopedic management arise. I spent 22 minutes in reviewing the patient's records and imaging studies, seeing the patient and documenting in the medical record. Orders: Orders AMB Joint Injection/Aspiration Today M17.12 - Unilateral primary osteoarthritis, left knee AMB Joint Injection/Aspiration Today M17.11 - Unilateral primary osteoarthritis, right knee Coding Level of Care Code Est Pt Level 3 (57776) Complex EM visit Add On G2211 Diagnoses Osteoarthritis of left knee M17.12 Osteoarthritis of right knee M17.11 CPT Codes Coding - 05727 Large joint: 74920 - Large joint ([id number]) Coding - 14500 Large joint: 95265 - Large joint ([id number])
== END 2024-02-09 10:15 | disposition home or self-care (01) ==
PROVIDERS: PCP Family Medicine; Visit Provider Orthopaedic Surgery
DX: M17.0 Bilateral primary osteoarthritis of knee (principal)
CPT/HCPCS: 20610; 99213

== ENCOUNTER → 2024-02-09 09:48 | Outpatient (BNVA) | payer MEDICARE, MEDICAID, SELFPAY | PROVIDERS: PCP Family Medicine; Visit Provider Orthopaedic Surgery | DX: M17.0 Bilateral primary osteoarthritis of knee (principal) | CPT/HCPCS: 20610; 99212; J7318 ==

== ENCOUNTER 2024-03-13 10:15 | Outpatient (REF) | payer MEDICARE, MEDICAID, SELFPAY ==
[2024-03-13 12:29] LABS: Thyroid Stimulating Hormone 0.13 uIU/mL (0.32-4.0)
[2024-03-13 12:53] LABS: Folate 5.8 ng/mL (> or = 4.0); Vitamin B12 > 2000 pg/mL (200-900)
[2024-03-15 12:28] LABS: RPR Rapid Plasma Reagin NON-REACTIVE (NON-REACTIVE)
== END 2024-03-13 10:16 | disposition home or self-care (01) ==
LOC: HO.HHCL 10:15
PROVIDERS: Visit Provider Family Medicine
DX: R68.89 Other general symptoms and signs (principal)
CPT/HCPCS: 36415; 82607; 82746; 84443; 86592

== ENCOUNTER → 2024-03-22 14:25 | Outpatient (REF) | payer MEDICARE, MEDICAID, SELFPAY ==
--- NOTE | 2024-03-22 14:59 | CA_ITS ---
Transthoracic Echocardiogram Patient (Last, First, Middle): Joshua Torres, Gender: Male Date of : 1960 Age: 63 Procedure Date: 03/22/2024 Procedure Type: Transthoracic Echocardiogram Location: OP Height: 167.64 cm Weight: 89.36 kg BSA: 1.99 m2 Heart Rate: 67 bpm BP: 134 / 64 mmHg Recovery Agent: JEFFY Referring MD: Jose Guy MD Symptoms: I42.9 - Cardiomyopathy, unspecified Study Quality: Adequate ECG Rhythm: Sinus Conclusions: - The left ventricular systolic function is mildly decreased. The visually estimated ejection fraction is between 45-50%. - No obvious valvular pathology seen on this study. - There is mild dilatation of the ascending aorta measuring 4.00 cm. Findings Left Ventricle Normal left ventricular cavity size. There is mildly increased left ventricular wall thickness. The left ventricular systolic function is mildly decreased. The visually estimated ejection fraction is between 45-50%. Evidence suggests grade I (mild) diastolic dysfunction. Right Ventricle Mildly increased right ventricular cavity size. There is mild to moderately decreased right ventricular systolic function. Atria Both atria are normal in size. Aortic Valve There is a normal trileaflet aortic valve. There is no aortic valve stenosis. There is no aortic valve regurgitation. Mitral Valve The mitral valve appears normal. There is no mitral valve regurgitation. There is no mitral valve stenosis. Pulmonic Valve The pulmonic valve is likely normal. Tricuspid Valve Normal tricuspid valve structure. There is trace tricuspid valve regurgitation. There is no evidence of pulmonary hypertension. Great Vessels There is mild dilatation of the ascending aorta measuring 4.00 cm. Venous The inferior vena cava was not well visualized. Pericardium/Pleural There is no evidence of pericardial effusion. Prior Study Comparison Changes noted compared to prior study dated: 05/03/2023. LVEF slightly lower than previously reported. Recommendations, Care & Conclusions No obvious valvular pathology seen on this study. Measurements 2D Linear Measurements IVSd: 1.16 0.6-0.9/0.6-1.0 cm LVIDd: 4.90 3.9-5.3/4.2-5.9 cm LVIDd Index: 2.46 2.4-3.2/2.2-3.1 cm/m2 LVIDs: 3.02 2.0-3.6 cm LVPWd: 1.05 0.7-1.1 cm LA Diam: 4.40 2.7-3.8/3.0-4.0 cm LAIDs Index: 2.21 1.5-2.3 cm/m2 LV Mass: 251.45 67-162/88-224 g LV Mass Index: 126.36 43-95/49-115 g/m2 LVOT Diam: 2.20 3.0+(-)1.3 cm 2D Systolic Function EF 4C: 48.20 >55% EF 2C: 42.10 >55% EF BiP: 44.10 >55% Mitral Valve MV Pk E: 0.80 MV PK A: 0.97 MV Decel Time: 204.00 E/A: 0.80 E'Lateral: 6.42 E'Medial: 4.35 E/E' Med: 18.30 E/E' Lat: 12.40 PHT: 60.00 MVA PHT: 3.67 Decel [place]: 3.90 Aortic Valve AoV Pk Agustin: 1.19 AoV Pk Grad: 6.00 MOHAN: 3.14 LVOT LVOT Pk Agustin: 0.93 LVOT Mn Agustin: 0.65 LVOT VTI: 0.21 LVOT Pk Grad: 3.00 LVOT Mn Grad: 2.00 LVOT Diam: 2.20 LVOT Area: 3.80 Diastolic Function MV Pk E: 0.80 MV Pk A: 0.97 E/A: 0.80 E'Medial: 4.35 E/E' Med: 18.30 E' Laterial: 6.42 E/E' Lat: 12.40 Right Ventricle TAPSE (mm): 12.40 TVS' Agustin: 9.79 Tricuspid Valve TR Pk Agustin: 2.09 TR Pk Grad: 17.00 RA Press: 3.00 RVSP: 20.00 Great Vessels Aorta Sinus of Valsalva: 4.10 2.0-3.5 cm Ao Asc: 4.00 2.1-3.4 cm Pulmonary Valve PV Pk Agustin: 0.85 Peak PV Grad: 3.00 Updated in Other Vendor System with Status of Final Tam Cosby MD electronically signed on 03/22/2024 4:42:52 PM with status of Final
== END ==
LOC: HO.CARD 14:25
PROVIDERS: PCP Family Medicine; Visit Provider Internal Medicine Cardiovascular Disease
DX: I42.9 Cardiomyopathy, unspecified (principal)
CPT/HCPCS: 93306

== ENCOUNTER → 2024-03-22 14:59 | Outpatient (BNV) | payer MEDICARE, MEDICAID, SELFPAY | PROVIDERS: PCP Family Medicine; Visit Provider Internal Medicine | DX: I51.89 Other ill-defined heart diseases (principal) | CPT/HCPCS: 93306 ==

== ENCOUNTER 2024-04-09 10:43 | Outpatient (REF) | payer MEDICARE, MEDICAID, SELFPAY ==
[2024-04-09 14:01] LABS: Free T4 (Free Thyroxine) 1.28 ng/dL (0.71-1.85); Thyroid Stimulating Hormone 0.64 uIU/mL (0.32-4.0)
[2024-04-10 07:34] LABS: Triiodothyronine T3 Total 81 ng/dL (76-181)
[2024-04-12 05:18] LABS: Fructosamine 377 umol/L (205-285)
== END 2024-04-09 10:44 | disposition home or self-care (01) ==
LOC: HO.HHCL 10:43
PROVIDERS: Visit Provider Family Medicine
DX: R79.89 Other specified abnormal findings of blood chemistry (principal); E11.22 Type 2 diabetes mellitus with diabetic chronic kidney disease; N18.6 End stage renal disease; Z99.2 Dependence on renal dialysis; Z79.4 Long term (current) use of insulin; R94.6 Abnormal results of thyroid function studies
CPT/HCPCS: 36415; 82985; 84439; 84443; 84480

== ENCOUNTER 2024-04-15 10:30 | Outpatient (REF) | payer MEDICARE, MEDICAID, SELFPAY ==
--- NOTE | ~2024-04-15 | MR_ITS ---
EXAMINATION: MR BRAIN WITHOUT CONTRAST CLINICAL INFORMATION: Worsening memory. COMPARISON: CT head from 12/10/2022. TECHNIQUE: MRI of the brain was obtained using routine sequences without contrast. FINDINGS: No focal restricted diffusion is demonstrated to suggest acute or subacute cerebral ischemia. Chronic region of encephalomalacia in the left black radiata/lentiform nucleus with hemosiderin staining. 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 No evidence of acute hemorrhagic products on heme-sensitive imaging. Scattered and partially confluent periventricular, deep white matter, and brainstem T2 FLAIR hyperintensities consistent with moderate underlying microangiopathy. Exvacuodilatation of the left lateral ventricle. Otherwise, proportional prominence of the ventricles and sulcal spaces without evidence of obstructive hydrocephalus. No abnormal mass effect. No midline shift. Normal appearance of the pituitary gland. Normal positioning of the cerebellar tonsils. Normal arterial and venous vascular flow voids are present. Normal, homogeneous marrow signal. Mild mucosal thickening of the paranasal sinuses. No signal abnormalities within the mastoids. Bilateral lens extractions. MR/MR head/brain wo con IMPRESSION: 1. No acute intracranial abnormalities. 2. Chronic region of encephalomalacia in the left black radiata/lentiform nucleus. Moderate underlying microangiopathy and generalized cerebral volume loss. Electronically signed by: Feroz Dennis DO 05/09/2024 07:56 AM MARIE
== END 2024-04-15 10:31 | disposition home or self-care (01) ==
LOC: HO.MRI 10:30
PROVIDERS: PCP Family Medicine; Visit Provider Family Medicine
DX: R68.89 Other general symptoms and signs (principal)
CPT/HCPCS: 70551

== ENCOUNTER 2024-05-08 09:04 | Outpatient (AMB) | payer MEDICARE, MEDICAID, SELFPAY ==
--- NOTE | 2024-05-08 09:31 | MHC.OFFVIS ---
Vital Signs 05/08/24 09:37 Height 5 ft 6 in Intake Visit Reasons: Bilateral knee pains Intake Note: Joshua is a 63 year old male who presents with complaints of bilateral knee pains. He has had cortisone injections in the past which gave him no relief. He has also had Durolane viscosupplementation injections which gave him fairly good relief. He has tried Tylenol and anti-inflammatory medicines which gave him minimal relief. He has also done physical therapy exercises which aggravated his pain. Allergies No Known Allergies Allergy (Verified 05/08/24 09:38) Medication List - Last Reconciled 05/09/24 by Mathew Cheema MD albuterol sulfate 90 mcg/actuation (ProAir HFA) 2 puffs PO Q6H PRN amiodarone 200 mg PO QAM amlodipine 10 mg PO DAILY apixaban (Eliquis) 5 mg PO BID 90 days atorvastatin 80 mg PO BEDTIME blood sugar diagnostic (FreeStyle Lite Strips) carvedilol 12.5 mg PO BID clonazepam 1 mg PO BID clotrimazole 1% 1 appl topical BID colchicine mg PO gabapentin 100 mg PO BID insulin aspart U-100 (Novolog FlexPen U-100 Insulin aspart) 1 sliding scale dose subcut TIDAC insulin glargine (Lantus Solostar U-100 Insulin) 34 units subcut DAILY ipratropium bromide 1 spray intranasal TID levothyroxine 112 mcg PO DAILY@0600 lidocaine 5% 1 patch topical DAILY lidocaine-prilocaine 2.5-2.5 % 1 appl topical DAILY PRN loratadine 10 mg PO Q OTHER DAY nitroglycerin 0.4 mg sublingual Q5M PRN omeprazole 40 mg PO BID oxycodone-acetaminophen 10-325 mg 1 tab PO Q4H PRN pen needle, diabetic (P[place]ips Pen Needle) semaglutide (Ozempic) mg subcut sevelamer carbonate 1,600 mg PO TIDWM zolpidem 10 mg PO BEDTIME PFSH Medical History History of cardioversion Hx of sleep apnea GERD (gastroesophageal reflux disease) Atrial flutter Colon adenomas Asthma Colon cancer screening End stage renal disease Type 2 diabetes mellitus with unspecified complications Essential hypertension Normocytic anemia Non-cardiac chest pain CAD (coronary artery disease) CVA (cerebral vascular accident) Hypertension Surgical History History of colonoscopy H/O neck surgery Hx of colonoscopy History of bladder surgery Stented coronary artery History of nephrectomy Family History Other No family history of coronary artery disease Social History Household Members: Spouse Housing: Apartment Are you a primary care coordination manager to a significant other at home: No Do you presently have visiting nurse or other home services: Yes Alcohol intake: former Patient Tobacco Use Status: Former Tobacco user Tobacco use type: Cigarette service: No Current occupational status: disabled Physical Exam Const Other: Well-nourished well-developed very friendly male awake alert and oriented x3 in no acute distress Extrem Other: Bilateral lower extremity examination shows good capillary refill, no skin lesions noted, normal sensation light touch Bilateral knee examination shows minimal effusions, palpable crepitus with range of motion, pain with range of motion, no instability Results Reviewed Results Reviewed: X-rays of the patient's bilateral knee show joint space narrowing, subchondral sclerosis, no acute bony abnormalities Assessment & Plan Assessment & Plan (1) Osteoarthritis of right knee: Code(s): M17.11 - Unilateral primary osteoarthritis, right knee Category: Medical (2) Osteoarthritis of left knee: Code(s): M17.12 - Unilateral primary osteoarthritis, left knee Category: Medical Plan Joshua presents with bilateral knee pains due to osteoarthritis. I had a lengthy discussion with the patient regarding the treatment options. He wishes to hold off on surgery if at all possible. I agree with this plan. I will see if the patient's insurance company will cover a another series of Durolane viscosupplementation injections for both of his knees. I will see him back once the injections are available. Feel free to call me at any time should questions regarding his orthopedic management arise. I spent 21 minutes in reviewing the patient's records and imaging studies, seeing the patient and documenting in the medical record. Coding Level of Care Code Est Pt Level 3 (09713) Complex EM visit Add On G2211 Diagnoses Osteoarthritis of right knee M17.11 Osteoarthritis of left knee M17.12
== END 2024-05-08 09:52 | disposition home or self-care (01) ==
PROVIDERS: PCP Family Medicine; Visit Provider Orthopaedic Surgery
DX: M17.0 Bilateral primary osteoarthritis of knee (principal)
CPT/HCPCS: 99213; G2211

== ENCOUNTER → 2024-05-08 09:04 | Outpatient (BNVA) | payer MEDICARE, MEDICAID, SELFPAY | PROVIDERS: PCP Family Medicine; Visit Provider Orthopaedic Surgery | DX: M17.0 Bilateral primary osteoarthritis of knee (principal) | CPT/HCPCS: 99212 ==

== ENCOUNTER 2024-06-19 16:09 | Outpatient (REF) | payer MEDICARE, MEDICAID, SELFPAY ==
--- OUTSIDE RECORDS SUMMARY | 2024-06-19 17:44 | XMS_ITS | Clinical Summary ---
Author Organization [facility] Address [address] [place] [address] Care Team Providers Care Commercial Insulator Name Role Phone Patient, Has No Pcp Or Ref Primary Care Provider Unavailable Allergies No known active allergies Medications clonazePAM (KlonoPIN) 1 mg tablet Take 1 mg by mouth. Active zolpidem (AMBIEN) 5 mg tablet Take 5 mg by mouth nightly as needed for sleep. Active oxyCODONE ER (OxyCONTIN) 10 mg tablet Take by mouth. Pt states taking 10 mg 325 Active lidocaine (LIDODERM) 5% patch Apply 1 patch topically to the affected area once a day. Remove and discard patch within 12 hours or as directed. Active albuterol (PROAIR HFA,VENTOLIN HFA) 90 mcg inhaler Inhale 1-2 puffs by mouth every 6 hours as needed for wheezing or shortness of breath. Use with spacer. Active insulin glargine (Lantus U-100 Insulin) 100 units/mL solution injection Inject under the skin nightly. Active semaglutide (OZEMPIC SUBCUTANEO) Inject under the skin. Active amiodarone (PACERONE) 200 mg tablet Take 200 mg by mouth once a day. Active amLODIPine (NORVASC) 10 mg tablet Take 10 mg by mouth once a day. Active atorvastatin (LIPITOR) 80 mg tablet Take 80 mg by mouth once a day. Active carvediloL (COREG) 12.5 mg tablet Take 12.5 mg by mouth 2 times a day with meals. Active apixaban (ELIQUIS) 2.5 mg tablet Take 5 mg by mouth every 12 hours. Active levothyroxine (SYNTHROID, LEVOTHROID) 125 mcg tablet Take 125 mcg by mouth daily. Active omeprazole (PriLOSEC) 40 mg capsule Take 40 mg by mouth once a day. Active cyanocobalamin (vitamin B-12) 1,000 mcg tablet Take 1,000 mcg by mouth once a day. Active colchicine (COLCRYS) 0.6 mg tablet Take 0.6 mg by mouth once a day. Active Active Problems Problem Noted Date Diagnosed Date ESRD (end stage renal disease) 03/05/2024 Overview (03/05/2024): Dialysis start 12/17/2021 Type 2 diabetes mellitus wit h kidney complication, with long-term current use of insulin 03/05/2024 Hypertension 03/05/2024 Renal cell carcinoma 03/05/2024 H/O right nephrectomy 03/05/2024 History of cholecystectomy 03/05/2024 H/O umbilical hernia repair 03/05/2024 Encounters Date Type Department Care Team Description 06/12/2024 Telephone [facility] Transplant Department [address] [place] [address] Lynda Diaz RN 05/02/2024 Telephone [facility] [address] [place] [address] [address] [place] [address] Telephone Intake, Staff PAC Appt Request - New 04/30/2024 Telephone [facility] Floor [address] [place] [address] Telephone Intake, Staff PAC Appt Request - New 04/27/2024 Orders Only [facility] [address] [place] [address] As400 Programmer: Louie Jacobo MD Encounter for pre-transplant evaluation for kidney transplant (Primary Dx) 04/27/2024 Telephone [facility] [address] [place] [address] As400 Programmer: Louie Jacobo MD from Last 3 Months Immunizations Name Administration Dates Next Due COVID-19, Moderna, mRNA, LNP -S, Bivalent Booster, PF 03/12/2022 Hepatitis B vaccine (HEPLISA V-B) vaccine 0.5 mL IM 12/29/2022,11/03/2022,10/04/2022,2022 Pneumococcal conjugate PCV20,polysaccharide [id number] conjugate, adjuvant, PF (Prevnar 20) 06/22/2023 Social History Tobacco Use Types Packs/Day Years Used Date Smoking Tobacco: Never Assessed Sex and Gender Information Value Date Recorded Sex Assigned at Male 03/16/2024 8:40 AM EDT Legal Sex Male 2:40 PM EDT Gender Identity Male 06/14/2024 1:47 PM EST Sexual Orientation Straight 06/14/2024 1: 47 PM EST Last Filed Vital Signs Vital Sign Reading Time Taken Comments Blood Pressure 152/80 03/15/2024 7:55 AM EDT Pulse 60 03/15/2024 7:55 AM EDT Temperature 36.7 ??C (98 ??F) 03/15/2024 7:55 AM EDT Respiratory Rate 18 03/15/2024 7:55 AM EDT Oxygen Saturation 98% 03/15/2024 7:55 AM EDT Inhaled Oxygen Concentration - - Weight 88 kg (194 lb 0.1 oz) 03/15/2024 7:55 AM EDT Height 165 cm (5' 4.96 ) 03/15/2024 7:55 AM EDT Body Mass Index 32.32 03/15/2024 7:55 AM EDT Plan of Treatment Upcoming Encounters Date Type Department Care Team (Late st Contact Info) Description 06/21/2024 2:00 PM EST Office Visit [facility] South 5th Floor [address] [place] [address] Hillary Webber MD [address] [place] [address] 03/19/2025 9:00 AM EDT Follow-Up [facility] Renal Transplant [address] [place] [address] Louie Pablo MD [address] [place] [address] 03/19/2025 9:30 AM EDT Social Work [facility] Renal Transplant [address] [place] [address] Imani Livingston LICSW [address] [place] [address] Health Maintenance Due Date Last Done Comments 25 Hydroxy / Vitamin D 1959 CKD: Referral to Nutrition 1959 Cologuard 1959 Colon Cancer Screening 1959 Colonoscopy 1959 FOBT / Fit Test 1959 PTH 1959 Sigmoidoscopy 1959 Ophthalmology Exam 09/21/1969 Urine Microalbumin 09/21/1969 COVID-19 Vaccine (2023-2 5 season) 2024 03/08/2023, 03/12/2022, 10/06/2021, Additional history exists Basic Metabolic Panel 02/03/2024 11/03/2023 Alcohol/Substance Use Screening 05/30/2024 Depression Screening and Follow-Up 05/30/2024 Social Drivers of Health Lorena ual Screening 05/30/2024 Hemoglobin A1C 12/05/2024 06/07/2024, 02/27, 03/13/2024, Additional history exists Hemoglobin 03/15/2025 03/15/2024 Phosphorus 03/15/2025 03/15/2024 DTaP,Tdap,and Td Vaccines (3 - Td or Tdap) 02/24/2032 02/23/2022, 02/04/2012, 11/10/2000 Zoster Vaccines Completed 11/24/2021, 09/17/2021 Hepatitis B Vaccines Completed 12/29/2022, 11/03/2022, 10/04/2022, Additional history exists RSV Vaccine (60+ years old a nd patients) Completed 08/18/2023 Pneumococcal Vaccine: Pediat jaylon (0-5 Years) and At-Risk Patients (6-64 Years) Completed 12/26/2023, 06/22/2023, 05/28/2022, Additional history exists Influenza Vaccine Completed 02/23/2024, , 02/20/2022, Additional history exists CKD: Referral to Nephrology Completed 03/15/2024 HIV Screening Completed 03/15/2024, 12/09/2020 Hepatitis C Screening Completed 03/15/2024 Procedures * Due to [place] law, this organization might not be sharing negative HIV tests. Procedure Name Priority Date/Time Associated Diagnosis Comments HEPATITIS C ANTIBODY W/REFLEX TO HCV RNA, QUANTITATIVE PCR Routine 03/15/2024 12:39 PM EDT ESRD (end stage renal disease) (HCC) Pre-transplant evaluation for end stage renal disease HEMOGLOBIN A1C Routine 03/15/2024 12:39 PM EDT ESRD (end stage renal disease) (HCC) Pre-transplant evaluation for end stage renal disease CBC AUTO DIFFERENTIAL Routine 03/15/2024 12:39 PM EDT ESRD (end stage renal disease) (HCC) Pre-transplant evaluation for end stage renal disease PHOSPHORUS Routine 03/15/2024 12:39 PM EDT ESRD (end stage renal disease) (HCC) Pre-transplant evaluation for end stage renal disease from Last 3 Months or Most Recently Relevant to Health Maintenance Results * Due to [place] state law, this organization might not be sharing negative HIV tests. * (ABNORMAL) CBC Auto Differential (03/15/2024 12:39 PM EDT) WBC 6.2 3.8 - 10.8 10*3/uL 03/15/2024 1:11 PM EDT [facility] RBC 3.90(L) 4.20 - 5.80 10*6/uL 03/15/2024 1:11 PM EDT [facility] [employer] [facility] Hemoglobin 11.9(L) 13.2 - 17.1 g/dL 03/15/2024 1:11 PM EDT [facility] Hematocrit 36.8(L) 38.5 - 50.0 % 03/15/2024 1:11 PM EDT [facility] MCV 94.4 80.0 - 100.0 fL 03/15/2024 1:11 PM EDT [facility] MCH 30.5 27.0 - 33.0 pg 03/15/2024 1:11 PM EDT [facility] MCHC 32.3 32.0 - 36.0 g/dL 03/15/2024 1:11 PM EDT [facility] RDW 14.2 11.0 - 15.0 % 03/15/2024 1:11 PM EDT [facility] Platelets 175 140 - 400 10*3/uL 03/15/2024 1:11 PM EDT [facility] MPV 11.3 7.5 - 12.5 fL 03/15/2024 1:11 PM EDT [facility] Neutrophil % 59.1 % 03/15/2024 1:11 PM EDT [facility] Immature Grans % 0.2 0.0 - 0.9 % 03/15/2024 1:11 PM EDT [facility] Lymphocyte % 28.1 % 03/15/2024 1:11 PM EDT [facility] Monocyte % 9.9 % 03/15/2024 1:11 PM EDT [facility] Eosinophil % 2.4 % 03/15/2024 1:11 PM EDT [facility] Basophil % 0.3 % 03/15/2024 1:11 PM EDT [facility] Neutrophil # 3.63 1.50 - 7.80 10*3/uL 03/15/2024 1:11 PM EDT [facility] Immature Grans # <0.03 <=0.03 10*3/uL 03/15/2024 1:11 PM EDT [facility] Lymphocyte # 1.70 0.85 - 3.90 10*3/uL 03/15/2024 1:11 PM EDT [facility] Monocyte # 0.60 0.20 - 0.95 10*3/uL 03/15/2024 1:11 PM EDT [facility] Eosinophil # 0.20 0.02 - 0.50 10*3/uL 03/15/2024 1:11 PM EDT [facility] Basophil # <0.03 0.00 - 0.20 10*3/uL 03/15/2024 1:11 PM EDT [facility] nRBC % 0.0 /100 WBCs 03/15/2024 1:11 PM EDT [facility] nRBC # <0.01 <0.01 10*3/uL 03/15/2024 1:11 PM EDT [facility] Blood Structure of peripheral vein / Unknown Venipuncture / Unknown 03/15/2024 12:39 PM EDT 03/15/2024 12:59 PM EDT us Tobias Vogt MD LAB BLOOD ORDERABLES Final Result [facility] [address] [place] [address], * Hepatitis C Antibody w/Reflex to PCR (03/15/2024 12:39 PM EDT) Hepatitis C Antibody NON-REACT ALBINO NON-REACT ALBINO 03/16/2024 3:27 AM EDT [employer] [facility] Comment: HCV antibody was non-reactive. There is no laboratory evidence of HCV infection. In most cases, no further action is required. However, if recent HCV exposure is suspected, a test for HCV RNA (test code 46271) is suggested. For additional information please refer to http://education.[employer]/faq/OKD49e0 (This link is being provided for informational/ educational purposes only.) Blood Structure of peripheral vein / Unknown Venipuncture / Unknown 03/15/2024 12:39 PM EDT 03/15/2024 12:58 PM EDT Narrative ELIUD DOMÍNGUEZ - 03/16/2024 3:27 AM EDT [facility] Received Date:[id number] us Tobias Vogt MD LAB BLOOD ORDERABLES Final Result [facility]UD [facility] [address] [facility] 3rd Floor, [place] [address], [place] [phone] [employer] [facility] [address] [facility] 3rd Floor, [place] [address], [place] [phone] * Phosphorus (03/15/2024 12:39 PM EDT) Pathologist [facility] Phosphorus 3.4 2.5 - 4.5 mg/dL 03/15/2024 1:45 PM EDT [facility] Blood Structure of peripheral vein / Unknown Venipuncture / Unknown 03/15/2024 12:39 PM EDT 03/15/2024 12:58 PM EDT us Tobias Vogt MD LAB BLOOD ORDERABLES Final Result [facility] [address] [place] [address], * (ABNORMAL) Hemoglobin A1c (03/15/2024 12:39 PM EDT) Hemoglobin A1C 6.3(H) <5.7 % of total Hgb 03/16/2024 2:05 AM EDT [employer] [facility] Comment: For someone without known diabetes, a hemoglobin A1c value between 5.7% and 6.4% is consistent with prediabetes and should be confirmed with a follow-up test. For someone with known diabetes, a value <7% indicates that their diabetes is well controlled. A1c targets should be individualized based on duration of diabetes, age, comorbid conditions, and other considerations. This assay result is consistent with an increased risk of diabetes. Currently, no consensus exists regarding use of hemoglobin A1c for diagnosis of diabetes for children. eAG (MG/DL) 134 mg/dL 03/16/2024 2:05 AM EDT [employer] [facility] eAG (MMOL/L) 7.4 mmol/L 03/16/2024 2:05 AM EDT [employer] [facility] Blood Structure of peripheral vein / Unknown Venipuncture / Unknown 03/15/2024 12:39 PM EDT 03/15/2024 12:59 PM EDT Narrative ELIUD DOMÍNGUEZ - 03/16/2024 2:05 AM EDT [facility] Received Date: us Tobias Vogt MD LAB BLOOD ORDERABLES Final Result [facility]UD DOMÍNGUEZ [address] [facility] 3rd Floor, [place] [address], [place] [phone] [employer] [facility] [address] [facility] 3rd Floor, [place] [address], from Last 3 Months or Most Recently Relevant to Health Maintenance Insurance [address] [id number] [facility] MEDICARE MEDICARE [facility] Advance Directives Documents on File Type Date Recorded Patient Marble Setter Expl [facility] Proxy 03/20/2024 5:28 PM 10- Care Teams Commercial Insulator Relationship Specialty Start Date End Date Patient, Has No Pcp Or Ref DO NOT EDIT THIS RECORD VIA PROVIDER ON THE FLY PCP - General Barrel Inspector Tight 03/15/24
--- OUTSIDE RECORDS SUMMARY | 2024-06-19 17:44 | XMS_ITS | Referral Summary ---
Author Organization [facility] Address [address] [place] [address] Care Team Providers Care Auto Slip Cover Installer Name Role Phone Patient, Has No Pcp Or Ref Primary Care Provider Unavailable Encounters Date Type Department Care Team Description 06/12/2024 Telephone [facility] Transplant Department [address] [place] [address] Lynda Diaz RN 05/02/2024 Telephone [facility] Floor [address] [place] [address] Telephone Intake, Staff PAC Appt Request - New 04/30/2024 Telephone [facility] Floor [address] [place] [address] Telephone Intake, Staff PAC Appt Request - New 04/27/2024 Orders Only [facility] Nephrology Clinic [address] [place] [address] Produce Sorter: Louie Jacobo MD Encounter for pre-transplant evaluation for kidney transplant (Primary Dx) 04/27/2024 Telephone [facility] Nephrology Clinic [address] [place] [address] Produce Sorter: Louie Jacobo MD from Last 3 Months Allergies No known active allergies Medications clonazePAM [...] cholecystectomy 03/05/2024 H/O umbilical hernia repair 03/05/2024 Immunizations Name Administration Dates Next Due COVID-19, Moderna, mRNA, LNP -S, Bivalent Booster, PF 03/12/2022 Hepatitis B vaccine (HEPLISA V-B) vaccine 0.5 mL IM 12/29/2022,11/03/2022,10/04/2022,2022 Pneumococcal conjugate PCV20,polysaccharide [id number] conjugate, adjuvant, PF (Prevnar 20) 06/22/2023 Social [...] Description 06/21/2024 2:00 PM EST Office Visit [facility] South 5th Floor [address] [place] [address] Hillary Webber MD [address] [place] [address] 03/19/2025 9:00 AM EDT Follow-Up [facility] Renal Transplant [address] [place] [address] Louie Pablo MD [address] [place] [address] 03/19/2025 9:30 AM EDT Social Work [facility] Renal Transplant [address] [place], [place] [phone] Imani Livingston LICSW [address] [place] [address] Procedures * Due to [facility] law, this organization might not be sharing [...] to Health Maintenance Results * Due to [place] [employer] law, this organization might not be sharing negative HIV tests. * (ABNORMAL) CBC Auto Differential (03/15/2024 12:39 PM EDT) WBC 6.2 3.8 - 10.8 10*3/uL 03/15/2024 1:11 PM EDT [facility] RBC 3.90(L) 4.20 - 5.80 10*6/uL 03/15/2024 1:11 PM EDT [facility] Hemoglobin 11.9(L) 13.2 - 17.1 g/dL 03/15/2024 1:11 PM EDT [facility] Hematocrit 36.8(L) 38.5 - 50.0 % 03/15/2024 1:11 PM EDT [facility] MCV 94.4 80.0 - 100.0 fL 03/15/2024 1:11 PM EDT [facility] MCH 30.5 27.0 - 33.0 pg 03/15/2024 1:11 PM EDT [facility] MCHC 32.3 32.0 - 36.0 g/dL 03/15/2024 1:11 PM EDT [facility] RDW 14.2 11.0 - 15.0 % 03/15/2024 1:11 PM EDT [facility] Platelets 175 140 - 400 10*3/uL 03/15/2024 1:11 PM EDT [facility] MPV 11.3 7.5 - 12.5 fL 03/15/2024 1:11 PM EDT [facility] Neutrophil % 59.1 % 03/15/2024 1:11 PM EDT [facility] Immature Grans % 0.2 0.0 - 0.9 % 03/15/2024 1:11 PM EDT [facility] Lymphocyte % 28.1 % 03/15/2024 1:11 PM EDT [facility] Monocyte % 9.9 % 03/15/2024 1:11 PM EDT [facility] Eosinophil % 2.4 % 03/15/2024 1:11 PM EDT [facility] Basophil % 0.3 % 03/15/2024 1:11 PM EDT [facility] Neutrophil # 3.63 1.50 - 7.80 10*3/uL 03/15/2024 1:11 PM EDT [facility] Immature Grans # <0.03 <=0.03 10*3/uL 03/15/2024 1:11 PM EDT [facility] [employer] CL[facility] PATHOLOG[facility] LAB[facility]ORY Lymphocyte # 1.70 0.85 - 3.90 10*3/uL 03/15/2024 1:11 PM EDT [facility] [employer] [facility] LAB[facility] Monocyte # 0.60 0.20 - 0.95 10*3/uL 03/15/2024 1:11 PM EDT [facility] [employer] [facility] Eosinophil # 0.20 0.02 - 0.50 10*3/uL 03/15/2024 1:11 PM EDT [facility] [employer] [facility] Basophil # <0.03 0.00 - 0.20 10*3/uL 03/15/2024 1:11 PM EDT [facility] [employer] [facility] nRBC % 0.0 /100 WBCs 03/15/2024 1:11 PM EDT [facility] [employer] [facility] nRBC # <0.01 <0.01 10*3/uL 03/15/2024 1:11 PM EDT [facility] [employer] [facility] Blood Structure of peripheral vein / Unknown Venipuncture / Unknown 03/15/2024 12:39 PM EDT 03/15/2024 12:59 PM EDT us Tobias Vogt MD LAB BLOOD ORDERABLES Final Result [facility] PATHOLOG[facility] LABORATORY [address] [place] [address], * Hepatitis C Antibody w/Reflex to PCR (03/15/2024 12:39 PM EDT) Hepatitis C Antibody NON-REACT ALBINO NON-REACT ALBINO 03/16/2024 3:27 AM EDT [employer] [facility] Comment: HCV antibody was non-reactive. There is no laboratory evidence of HCV infection. In most cases, no further action is required. However, if recent HCV exposure is suspected, a test for HCV RNA (test code 75228) is suggested. For additional information please refer to http://education.[employer]/faq/PTJ37c9 (This link is being provided for informational/ educational purposes only.) Blood Structure of peripheral vein / Unknown Venipuncture / Unknown 03/15/2024 12:39 PM EDT 03/15/2024 12:58 PM EDT Narrative [facility] - 03/16/2024 3:27 AM EDT [facility] Received Date: Tobias Vogt MD LAB BLOOD ORDERABLES Final Result [facility] [address] [facility] [address] [facility], [place] [address], [place] [phone] [facility] [address], [place] [address], [place] [phone] * Phosphorus (03/15/2024 12:39 PM EDT) Phosphorus 3.4 2.5 - 4.5 mg/dL 03/15/2024 1:45 PM EDT [facility] Blood Structure of peripheral vein / Unknown Venipuncture / Unknown 03/15/2024 12:39 PM EDT 03/15/2024 12:58 PM EDT Tobias Vogt MD LAB BLOOD ORDERABLES Final Result Performing Organization Address City/[facility]/ZIP Co de Phone Number [employer] LAB[facility]ATORY [address] [place] [id number], * (ABNORMAL) Hemoglobin A1c (03/15/2024 12:39 PM EDT) Hemoglobin A1C 6.3(H) <5.7 % of total Hgb 03/16/2024 2:05 AM EDT [employer] [facility] Comment: For someone without known diabetes, a [...] (MG/DL) 134 mg/dL 03/16/2024 2:05 AM EDT [employer] eAG (MMOL/L) 7.4 mmol/L 03/16/2024 2:05 AM EDT [employer] [facility] Blood Structure of peripheral vein / Unknown Venipuncture / Unknown 03/15/2024 12:39 PM EDT 03/15/2024 12:59 PM EDT Narrative [facility] - 03/16/2024 2:05 AM EDT [facility] Received Date: Tobias Vogt MD LAB BLOOD ORDERABLES Final Result [facility] [address] [facility] 3rd Floor, [place] [address], [employer] [facility] [address] [facility] 3rd Floor, [place] [address], from Last 3 Months or Most Recently Relevant to Health Maintenance Insurance [facility] [place] [id number] MEDICARE MEDICARE [facility] Advance Directives Documents on File Type Date Recorded Patient Fitness/Wellness Director Expl [facility] Health Care Proxy 03/20/2024 5:28 PM 02-27 Care Teams Auto Slip Cover Installer Relationship Specialty Start Date End Date Patient, Has No Pcp Or Ref DO NOT EDIT THIS RECORD VIA PROVIDER ON THE FLY PCP - General Radio Communication Coordinator 03/15/24
--- OUTSIDE RECORDS SUMMARY | 2024-06-19 17:44 | XMS_ITS | Encounter Summary ---
Author Organization [facility] Address [address] [place] [address] Care Team Providers Care Management Planner Name Role Phone Patient, Has No Pcp Or Ref Primary Care Provider Unavailable Encounter Details Date Type Department Care Team (Late st Contact Info) Description 06/12/2024 Telephone [facility] Transplant Department [address] [place] [address] Lynda Diaz RN [address] [place] [address] Social History Tobacco Use Types Packs/Day Years Used Date Smoking Tobacco: Never Assessed Sex and Gender Information Value Date Recorded Sex Assigned at Male 03/16/2024 8:40 AM EDT Legal Sex Male 2:40 PM EDT Gender Identity Male 06/14/2024 1:47 PM EST Sexual Orientation Straight 06/14/2024 1: 47 PM EST documented as of this encounter Miscellaneous Notes * Telephone Encounter - Lynda Diaz RN - 06/12/2024 12:32 PM EST LVM w/request to return the call to Georgette tripp I. I would like to know if Joshua follows with Cardiology and if so, who and where. documented in this encounter Plan of Treatment Upcoming Encounters Date Type Department Care Team (Late st Contact Info) Description 06/21/2024 2:00 PM EST Office Visit [facility] South 5th Floor [address] [place] [address] Hillary Webber MD [address] [place] [address] 03/19/2025 9:00 AM EDT Follow-Up [facility] Renal Transplant [address] [place] [address] Louie Pablo MD [address] [place] [address] 03/19/2025 9:30 AM EDT Social Work [facility] Renal Transplant [address] [place] [address] Imani Livingston LICSW [address] [place] [address] documented as of this encounter Visit Diagnoses Not on filedocumented in this encounter Care Teams Management Planner Relationship Specialty Start Date End Date Patient, Has No Pcp Or Ref DO NOT EDIT THIS RECORD VIA PROVIDER ON THE FLY PCP - General Mohs Surgeon/General Dermatologist 03/15/24 documented as of this encounter
--- OUTSIDE RECORDS SUMMARY | 2024-06-19 17:44 | XMS_ITS | Encounter Summary ---
Author Organization [facility] Address [address] [place] [address] Care Team Providers Care Preparation Department Supervisor Name Role Phone Patient, Has No Pcp Or Ref Primary Care Provider Unavailable Reason for Visit * Reason Onset Date Comments PAC Appt Request - New 04/30/2024 Encounter Details Date Type Department Care Team (Late st Contact Info) Description 04/30/2024 Telephone [facility] Cancer [address] [address] Telephone Intake, Staff PAC Appt Request - New Social History Tobacco Use Types Packs/Day Years Used Date Smoking Tobacco: Never Assessed Sex and Gender Information Value Date Recorded Sex Assigned at Male 03/16/2024 8:40 AM EDT Legal Sex Male 2:40 PM EDT Gender Identity Male 06/14/2024 1:47 PM EST Sexual Orientation Straight 06/14/2024 1: 47 PM EST documented as of this encounter Miscellaneous Notes * Telephone Encounter - Kathleen Jarquin - 04/30/2024 4:27 PM EST Pt with an urgent referral to be seen for pre-kidney transplant eval, he has Tuesday and are best other days has dialysis. DX not in dt Call back [phone] documented in this encounter Plan of Treatment Upcoming Encounters Date Type Department Care Team (Late st Contact Info) Description 06/21/2024 2:00 PM EST Office Visit [facility] Cancer [address] [place] [address] Hillary Webber MD [address] [place] [address] 03/19/2025 9:00 AM EDT Follow-Up [facility] Renal Transplant [address] [place] [address] Louie Pablo MD [address] [place] [address] 03/19/2025 9:30 AM EDT Social Work [facility] Renal Transplant [address] [place] [address] Imani Livingston LICSW [address] [place] [address] documented as of this encounter Visit Diagnoses Not on filedocumented in this encounter Care Teams Preparation Department Supervisor Relationship Specialty Start Date End Date Patient, Has No Pcp Or Ref DO NOT EDIT THIS RECORD VIA PROVIDER ON THE FLY PCP - General Guest Laundry Attendant 03/15/24 documented as of this encounter
--- OUTSIDE RECORDS SUMMARY | 2024-06-19 17:44 | XMS_ITS ---
Author Organization [facility] Address [address] [place] [address] Care Team Providers Care Community Arts Worker Name Role Phone Patient, Has No Pcp Or Ref Primary Care Provider Unavailable Transplant Episode Kidney Candidate [facility] ([place], [place]) - [facility] Evaluation began on 03/15/2024 Marked as Active on 03/15/2024 Kidney CoordinatorLynda Diaz RN Fax: N/A Email: N/A Scores Score Value Updated Exceptions/Reas ons CPRA Not available EPTS (Calc) 87 06/19/2024 [place] Organ Diagnosis Organ Primary Contributory Kidney Diabetes Mellitus - Type II Care Team Name Role Phone Fax Email Lynda Diaz RN Kidney Coordinator [phone] N/A N/A Anastacio Nickerson MD Referring Physician [phone] N/A Events Pre-Transplant Referred: 12/21/2023 Evaluation began: 03/15/2024 Dialysis History Dialysis History Start End Type Comments Center 12/17/2021 In-center Hemodialysis [facility] Dialysis Center Information Center Phone Fax Address [facility] [phone] [address] [facility] [address] [facility] [address]
--- OUTSIDE RECORDS SUMMARY | 2024-06-19 17:44 | XMS_ITS | Encounter Summary ---
Author Organization [facility] Address [address] [place] [address] Care Team Providers Care Physician Relations Manager Name Role Phone Patient, Has No Pcp Or Ref Primary Care Provider Unavailable Reason for Visit * Reason Onset Date Comments PAC Appt Request - New 05/02/2024 Encounter Details Date Type Department Care Team (Late st Contact Info) Description 05/02/2024 Telephone [facility] Cancer [address] [address] Telephone Intake, Staff PAC Appt Request - [...] encounter Miscellaneous Notes * Telephone Encounter - Kellee Foster - 05/02/2024 10:27 AM EST Pt's being referred urgently for pre-transplant evaluation for kidney transplant. Unable to schedule as diagnosis is not listed. Best contact number is [phone]. Thank you documented in this encounter Plan of Treatment Upcoming Encounters Date Type Department Care Team (Late Contact Info) Description 06/21/2024 2:00 PM EST Office Visit [facility] Cancer [address] [address] Hillary Webber MD [address] [place] [address] 03/19/2025 9:00 AM EDT Follow-Up [facility] Renal Transplant [address] [place] [address] Louie Pablo MD [address] [place] [address] 03/19/2025 9:30 AM EDT Social Work [facility] Renal Transplant [address] [place] [address] Imani Livingston LICSW [address] [place] [address] documented as of this encounter Visit Diagnoses Not on filedocumented in this encounter Care Teams Physician Relations Manager Relationship Specialty Start Date End Date Patient, Has No Pcp Or Ref DO NOT EDIT THIS RECORD VIA PROVIDER ON THE FLY PCP - General Psychopaedic Nurse 03/15/24 documented as of this encounter
--- OUTSIDE RECORDS SUMMARY | 2024-06-19 17:45 | XMS_ITS | Encounter Summary ---
Author Organization [employer] Address [address] [place] [address] Care Team Providers Care Mortgage Collector Name Role Phone FaribaCarissaMacie Primary Care Provider [phone] Flor Clark PharmD Unavailable [phone] Reason for Visit * Reason Comments [place] Encounter Details Date Type Department Care Team ([facility] st Contact Info) Description 06/15/2024 1:30 PM EST Office Visit [facility] ADULT DENTAL [address] [place] [address] Justin Anne, SHAY [address] [place] [address] Social History Tobacco Use Types Packs/Day Years Used Date Smoking Tobacco: Former Cigarettes Passive Smoke Exposure: Past Smokeless Tobacco: Never Alcohol Use Standard Drinks/Week Comments Never 0 (1 standard drink = 0.6 oz pur e alcohol) Depression Answer Date Recorded Patient Health Questionnaire-9 Score 5 12/20/2023 Patient Health Questionnaire-9 Score 5 12/20/2023 Last PHQ-9: Questionnaire Data Not on file 0 12/20/2023 Housing Stability Answer Date Recorded What is your housing situation today? I have erendira hauser 09/15/[address] you li ve. Do you have problems with any of the following? None of the above 09/15/2023 Food Insecurity Answer Date Recorded Within the past 12 months, y ou worried that your food would run out before you got money to buy more: Sometimes True 2023 Within the past 12 months,th e food you bought just didn't last and you didn't have enough money to get more: Sometimes True 09/15/2023 Transportation Answer Date Recorded In the past 12 months, has l ack of transportation kept you from medical appts, meetings, work or from getting things needed for daily living? No 09/15/2023 Utilities Answer Date Recorded In the past 12 months, has t he electric, gas, oil or water company threatened to shut off services in your home? Yes 09/15/2023 Depression Answer Date Recorded Patient Health Questionnaire-2 Score 2 12/20/2023 Sex and Gender Information Value Date Recorded Sex Assigned at Male 03/29/2022 10:15 AM EDT Legal Sex Male 10:15 AM EDT Gender Identity Male 03/29/2022 10:15 AM EDT Sexual Orientation Choose not to disclose 2021 10:15 AM EDT documented as of this encounter Progress Notes * Justin Anne DMD - 06/15/2024 1:30 PM EST Tooth#14: core is being cleaned, crown #14 fit fine and confirmed with X-ray, occlusal adjustment is done. Pt likes the esthetic and feels fine. Gluma placed, cement crown #14 with Rely-X, excess cement is being removed Delivery of lab adjusted P/. Pt feels fine NV: RCT#20 Mariola documented in this encounter Plan of Treatment Upcoming Encounters Date Type Department Care Team (Late st Contact Info) Description 07/03/2024 1:00 PM EST Medication Management [facility] MEDICINE [address] [place] [address] Flor Clark, PharmD [address] [place] [address] 07/05/2024 2:00 PM EST Office Visit [facility] ADULT DENTAL [address] [place] [address] Karmen Bustamante DDS [address] [place] [address] 09/13/2024 9:00 AM EDT Clinical Support [facility] MEDICINE [address] [place] [address] April Murrell RN 09/24/2024 3:00 PM EDT Office Visit [facility] ADULT DENTAL [address] [place] [address] Trina Arrieta documented as of this encounter Goals Goal Patient Goal Type Associated Problems Recent Progress Patient-Stated? Author Hemoglobin A1c < 7 Result Component 7.4( 2:10 PM EST) No Flor Clark PharmD Note: A1c value is falsely low d/t dialysis. Ordered fructosamine value 08/18/23 and once resulted will use to calculate a more accurate A1c Record your blood sugar as directed Result Component No Flor Clark PharmD Note: Use CGM, ensuring sensor is scanned at least once every 8 hours to capture 24H data. Check BG manually, as directed. Off label use - patient is on dialysis and CGM values are potentially inaccurate in these patients. He was not agreeable to discontinue use in CDTM 08/18/23. Per PCP, will continue CGM use at this time. documented as of this encounter Procedures Procedure Name Priority Date/Time Associated Diagnosis Comments 14 CROWN - PORCELAIN/CERAMIC Routine 06/15/2024 1:30 PM EST [facility] - PROFESSIONAL VISITS - CASE PRESENTATION, SUBSEQUENT TO DETAILED AND EXTENSIVE TREATMENT PLANNING Routine 06/15/2024 1:30 PM EST documented in this encounter Visit Diagnoses Not on filedocumented in this encounter Additional Health Concerns Assessment Noted Time PHQ-9 Depression Total Score: 5 12/20/19 24 9:37 AM EDT documented as of this encounter Care Teams Mortgage Collector Relationship Specialty Start Date End Date Macie Link DO [address] [place] [address] PCP - General Family Medicine 05/30/18 Flor Clark PharmD [address] [place] [address] Pharmacist Internal Medicine 08/18/23 documented as of this encounter
--- OUTSIDE RECORDS SUMMARY | 2024-06-19 17:45 | XMS_ITS | Encounter Summary ---
Author Organization [employer] Address [address] [place] [address] Care Team Providers Care Magnetic Observer Name Role Phone Fariba Macie Primary Care Provider + [phone] Flor Clark PharmD Unavailable [phone] Reason for Visit * Reason Onset Date Comments Dexcom 05/25/2024 Encounter Details Date Type Department Care Team ([facility] st Contact Info) Description 05/25/2024 Telephone [facility] MEDICINE [address] [place] [address] Anum Sams, PADILLA [address] [place] [address] Dexcom Social History Tobacco Use Types Packs/Day Years [...] AM EDT documented as of this encounter Miscellaneous Notes * Telephone Encounter - Anum Sams RN - 05/25/2024 3:28 PM EST RN received reorder form from [facility] medical supply for patients dexcom. Patients dexcom was discontinued due to not being recommended for patients on dialysis and switched to freestyle Gur[employer]. RN made notation on form and faxed to [phone], confirmation page received. RN also called [facility] medical at [phone] to inform of above information. [facility] medical reports theyare unable to stop sending physician order form until patient calls [facility] and informs them he is not interested in dexcom anymore. TC placed to patient [phone] to inform of the need to call [facility]. RN provided patient with phonenumber to [facility]. Patient to f/u PRN. documented in this encounter Plan of Treatment Upcoming Encounters Date Type Department Care Team (Late st Contact Info) Description 07/03/2024 1:00 PM EST Medication Management [facility] MEDICINE [address] [place] [address] Flor Clark, PharmD [address] [place] [address] 07/05/2024 2:00 PM EST Office Visit [facility] ADULT DENTAL [address] [place] [address] Hancock-Karmen Headley, DDS [address] [place] [address] 09/13/2024 9:00 AM EDT Clinical Support [facility] MEDICINE [address] [place] [address] April Murrell RN 09/24/2024 3:00 PM EDT Office Visit [facility] ADULT DENTAL [address] [place] [address] Trina Arrieta documented as of this encounter Goals Goal Patient Goal Type Associated Problems Recent Progress Patient-Stated? Author Hemoglobin A1c < 7 Result Component 7.4( 2:10 PM EST) No Flor Clark, Jaspreet Note: A1c value is falsely low d/t [...] this time. documented as of this encounter Visit Diagnoses Not on filedocumented in this encounter Additional Health Concerns Assessment Noted Time PHQ-9 Depression Total Score: 5 12/20/19 24 9:37 AM EDT documented as of this encounter Care Teams Magnetic Observer Relationship Specialty Start Date End Date Macie Link DO [place], [place] [id number] PCP - General Family Medicine 05/30/18 Flor Clark PharmD [address] [place] [address] Pharmacist Internal Medicine 08/18/23 documented as of this encounter
--- OUTSIDE RECORDS SUMMARY | 2024-06-19 17:45 | XMS_ITS | Encounter Summary ---
Author Organization [employer] Address [address] 7[address] [place] [address] Care Team Providers Care Flame Cutting Supervisor Name Role Phone Macie Link DO Primary Care Provider [phone] Flor Clark PharmD Unavailable [phone] Reason for Visit * Reason Comments Med Refill Encounter Details Date Type Department Care Team ([facility] st Contact Info) Description 05/24/2024 Refill [facility] MEDICINE [address] [place] [address] Macie Link DO [address] [place] [address] Anxiety Social History Tobacco Use Types Packs/Day Years [...] AM EDT documented as of this encounter Plan of Treatment Upcoming Encounters Date Type Department Care Team (Late st Contact Info) Description 07/03/2024 1:00 PM EST Medication Management [address] [address] Flor Clark PharmD [address] [place] [address] 07/05/2024 2:00 PM EST Office Visit [facility] ADULT DENTAL [address] [place] [address] Karmen Bustamante DDS [address] [place] [address] 09/13/2024 9:00 AM EDT Clinical Support [facility] MEDICINE [address] [place] [address] April Murrell, PADILLA 09/24/2024 3:00 PM EDT Office Visit [facility] ADULT DENTAL [address] [place] [address] Trina Arrieta documented as of this encounter [...] documented as of this encounter Visit Diagnoses Diagnosis Anxiety Anxiety state, unspecified documented in this encounter Additional Health Concerns Assessment Noted Time PHQ-9 Depression Total Score: 5 12/20/19 24 9:37 AM EDT documented as of this encounter Care Teams Flame Cutting Supervisor Relationship Specialty Start Date End Date Macie Link DO [address] [place] [address] PCP - General Family Medicine 05/30/18 Flor Clark, Jaspreet [address] [place] [address] Pharmacist Internal Medicine 08/18/23 documented as of this encounter
--- OUTSIDE RECORDS SUMMARY | 2024-06-19 17:45 | XMS_ITS | Encounter Summary ---
Author Organization [employer] Address [address] [facility] 7t [place] [address] Care Team Providers Care Building Specialist Name Role Phone Macie Link DO Primary Care Provider [phone] Flor Clark PharmD Unavailable [phone] Reason for Visit * Reason Comments Med Refill Encounter Details Date Type Department Care Team (Late st Contact Info) Description 02/06/2024 Refill [facility] MEDICINE [address] [place] [address] Macie Link DO [address] [place] [address] Chronic neck pain; Anxiety Social History Tobacco Use Types Packs/Day [...] Description 07/03/2024 1:00 PM EST Medication Management [facility] MEDICINE [address] [place] [address] Flor Clark PharmD [address] [place] [address] 07/05/2024 2:00 PM EST Office Visit [facility] ADULT DENTAL [address] [place] [address] Karmen Bustamante DDS [address] [place] [address] 09/13/2024 9:00 AM EDT Clinical Support [facility] MEDICINE [address] [place] [address] April Murrell, PADILLA 09/24/2024 3:00 PM EDT Office Visit [facility] ADULT DENTAL [address] [place] [address] Trina Arrieta documented as of this encounter [...] as of this encounter Visit Diagnoses Diagnosis Chronic neck pain Cervicalgia Anxiety Anxiety state, unspecified documented in this encounter Additional Health Concerns Assessment Noted Time PHQ-9 Depression Total Score: 5 12/20/19 24 9:37 AM EDT documented as of this encounter Care Teams Building Specialist Relationship Specialty Start Date End Date Macie Link DO [address] [place] [address] PCP - General Family Medicine 05/30/18 Flor Clark, Jaspreet [address] [place] [address] Pharmacist Internal Medicine 08/18/23 documented as of this encounter
--- OUTSIDE RECORDS SUMMARY | 2024-06-19 17:45 | XMS_ITS | Encounter Summary ---
Author Organization [employer] Address [address] [place] [address] Care Team Providers Care Carbide Operator Name Role Phone Macie Link DO Primary Care Provider [phone] Flor Clark PharmD Unavailable [phone] Reason for Visit * Reason Comments Med Refill Encounter Details Date Type Department Care Team ([facility] st Contact Info) Description 11/05/2023 Refill [facility] GENERAL MEDICINE [address] [place] [address] Macie Link DO [address] [place] [address] Asthma, unspecified asthma severity, unspecified whether complicated, unspecified whether persistent Social History Tobacco Use Types Packs/Day Years Used Date Smoking Tobacco: Former Cigarettes Passive Smoke Exposure: Past Smokeless Tobacco: Never Alcohol Use Standard Drinks/Week Comments Never 0 (1 standard drink = 0.6 oz pur e alcohol) Depression Answer Date Recorded Patient Health Questionnaire-9 Score 13 05/31/2023 Patient Health Questionnaire-9 Score 13 05/31/2023 Last PHQ-9: Questionnaire Data Not on file 0 05/31/2023 Housing Stability Answer Date Recorded What is [...] Answer Date Recorded Patient Health Questionnaire-2 Score 3 05/31/2023 Sex and Gender Information Value Date Recorded [...] Description 07/03/2024 1:00 PM EST Medication Management [facility] [address] [place] [address] Flor Clark, PharmD [address] [place] [address] 07/05/2024 2:00 PM EST Office Visit [facility]ULT DENT[facility] [address] [place] [address] Karmen Bustamante, DDS [address] [place] [address] 09/13/2024 9:00 AM EDT Clinical Support [facility] [address] [place] [address] April Murrell, RN 09/24/2024 3:00 PM EDT Office Visit [facility] D[facility] [address] [place] [address] Trina Arrieta documented as of this encounter Goals Goal Patient Goal Type Associated Problems Recent Progress Patient-Stated? Author Hemoglobin A1c < 7 Result Component 7.4( 2:10 PM EST) No Flor Clark, PharmD Note: A1c value is falsely low [...] as of this encounter Visit Diagnoses Diagnosis Asthma, unspecified asthma severity, unspecified whether complicated, unspecified whether persistent documented in this encounter Additional Health Concerns Assessment Noted Time PHQ-9 Depression Total Score: 13 024 9:15 AM EST documented as of this encounter Care Teams Carbide Operator Relationship Specialty Start Date End Date Macie Link DO [address] [place] [address] PCP - General Family Medicine 05/30/18 Flor Clark PharmD [address] [place] [address] Pharmacist Internal Medicine 08/18/23 documented as of this encounter
--- OUTSIDE RECORDS SUMMARY | 2024-06-19 17:45 | XMS_ITS | Encounter Summary ---
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 Prescribed Percocet 10mg Q4hr PRN & Clonazepam 1mg BID. States he has been taking Percocet and clonazepam 6 as prescribed. Last dose Percocet & Clonazepam taken was this morning. Denies smoking cigarettes, ETOH use, Illicit drug use and marijuana use. Currently rates his pain a 7 and states medication is 80% effective at alleviating his pain. Current pain sites are his neck, lower back and his knee's. He feels like his Clonazepam does help with his anxiety. He denies any issues sleeping and speaks with his therapist regularly. Patient cancelled COMMUNITY OUTREACH SPECIALIST RV 05/17/24 d/t travel plans. O: SCT Tier 2. Pt currently prescribed Percocet 10mg Q4hr PRN & Clonazepam 1mg BID. RESIDENTIAL COORDINATOR's verified today. Percocet Rx last filled on 05/28/24. Pill count performed. Pt has 42 pills at this time, 35 at least expected. Medication is not over used by patient. Clonazepam Rx last filled on 05/29/24.Pill count performed. Pt has 16 pills at this time, 13 at least expected. Medication is not overused by patient. UTOX completed. Positive for OXY, Negative for AMP, BAR, BUP, BZO, OTIS, FTY, MDMA, MET, MOP, MTD, PCP, TCA, THC. UTOX not as expected. Reviewed UTOX results, explained I would send urineout for BZO confirmation and would call him if his results are abnormal. BPI & CLAIRE-7 updated today. BPI Pain severity score of 8, activity interference score of 7.9. Previous BPI completed 11/03/23with pain severity score of 8, activity interference score of 8. CLAIRE-7 pt scored a 12, previous CLAIRE-7 completed 11/03/23 with a score of 16. Will update PCP with BPI & CLAIRE scoring. Last PCP visit was 03/13/24. A: COMMUNITY OUTREACH SPECIALIST Contract Revisit: Chronic Opioid use related to pain & Chronic BZO use r/t anxiety. P: Pt to continue taking medication only as prescribed; Next COMMUNITY OUTREACH SPECIALIST RV appointment scheduled for 09/13/24 @ 9a, F/U sooner PRN. Appointment reminder given. Pt verbalized understanding and agreed to plan. documented in this encounter Plan of Treatment Upcoming Encounters Date Type Department Care Team (Late st Contact Info) Description 07/03/2024 1:00 PM EST Medication Management [facility] MEDICINE [address] [place] [phone] Flor Clark, PharmD [address] [place] [phone] 07/05/2024 2:00 PM EST Office Visit [facility] ADULT DENTAL [address] [place] [phone] Hancock-Headley, Karmen, DDS [address] [place] [address] 09/13/2024 9:00 AM EDT Clinical Support [facility] MEDICINE [address] [place] [phone] April Murrell RN 09/24/2024 3:00 PM EDT Office Visit [facility] ADULT DENTAL [address] [place] [phone] Trina Arrieta Scheduled Orders Name Type Priority Associated Diagnoses Orde r Schedule Drug Monitoring, Benzodiazepines, Quantitative, Urine Lab Routine Chronic neck pain Ordered: 06/19/2024 documented as of this encounter Goals Goal Patient Goal Type Associated Problems Recent Progress Patient-Stated? Author Hemoglobin A1c < 7 Result Component 7.4( 5 2:10 PM EST) No Flor Clark, PharmD Note: A1c value is falsely low d/t dialysis. Ordered fructosamine value 08/18/23 and once resulted will use to calculate a more accurate A1c Record your blood sugar as directed Result Component No Puia, Flor, PharmD Note: Use CGM, ensuring sensor is [...] Procedure Name Priority Date/Time Associated Diagnosis Comments POCT WOODY-14 URINE DRUG SCREEN Routine 06/19/2024 9:21 AM EST Chronic neck pain documented in this encounter Results * (ABNORMAL) POCT WOODY-14 Urine Drug Screen (06/19/2024 9:21 AM EST) Benzodiazepines Screen, Urine Negative Oxycodone Screen, Urine Positive Urine Urine specimen obtained by clean catch procedure / Unknown 06/19/2024 9:21 AM EST April Walton, PADILLA - 06/19/2024 9:21 AM EST UTOX cup Lot#[id number] Exp. 02/21/26 Internal Pass Control Macie Link DO POINT OF CARE TEST ENTER/EVENS T ORDERABLES Final Result documented in this encounter Visit Diagnoses Diagnosis Chronic neck pain- Primary Cervicalgia documented in this encounter Additional Health Concerns Assessment Noted Time PHQ-9 Depression Total Score: 5 12/20/19 24 9:37 AM EDT documented as of this encounter Care Teams Film Booker Relationship Specialty Start Date End Date Macie Link DO [address] [place] [phone] PCP - General Family Medicine 05/30/18 Flor Clark, DerikD [address] [place] [phone] Pharmacist Internal Medicine 08/18/23 documented as of this encounter
--- OUTSIDE RECORDS SUMMARY | 2024-06-19 17:45 | XMS_ITS | Clinical Summary ---
Author Organization [employer] Address [address] [facility] [address] [place] [address] Care Team Providers Care Warehouse Incentive Selector Name Role Phone FaribaMacie Primary Care Provider [phone] Flor Clark PharmD Unavailable [phone] Allergies No known active allergies Medications * This document contains information received from the source organization and may not represent a complete record from that organization. sevelamer carbonate (Renvela) 800 MG tablet TAKE 2 TABLETS BY MOUTH THREE TIMES DAILY WITH MEALS 023 Active naloxone (Narcan) 4 mg/0.1 mL nasal spray FOR SUSPECTED OPIOID OVERDOSE. SPRAY 0.1mL IN ONE NOSTRIL. REPEAT IN ALTERNATE NOSTRIL 2-3 MINUTES IF NEEDED. SEEK MEDICAL ATTENTION IMMEDIATELY EVEN IF PATIENT RESPONDS. 2 each 3 023 Active Eliquis 5 MG tablet TAKE 1 TABLET BY MOUTH TWICE DAILY IN THE MORNING AND IN THE EVENING 023 Active calcitriol (Rocaltrol) 0.25 MCG capsule TAKE 1 CAPSULE BY MOUTH ON MON, TUE & Tue 023 Active Blood Glucose Monitoring Suppl (Accu-Chek Guide) w/Device kit USE TO TEST BLOOD SUGAR 4 TO 6 TIMES PER DAY 1 kit 023 Active amiodarone (Pacerone) 200 MG tablet Take 200 mg by mouth Once per day. 023 Active carvedilol (Coreg) 12.5 MG tablet 023 Active Methoxy PEG-Epoetin Beta (MIRCERA IJ) 75 mcg. 024 Active iron sucrose (Venofer) 20 MG/ML injection Dose as per nephrology, administered during dialysis 2024 Active sildenafil (Viagra) 100 MG tabletIndicatio ns:Erectile dysfunction, unspecified erectile dysfunction type Take 1 tablet (100 mg) by mouth if needed each day for erectile dysfunction. 10 tablet Active BD Pen Needle Katerina U/F 32G X 4 MM miscIndications :Type 2 diabetes mellitus with other specified complication, with long-term current use of insulin (CMS/[facility]) USE DIRECTED FOUR TIMES DAILY 100 each Active Diclofenac Sodium 1 % gel APPLY 2 GRAMS TOPICALLY TO AFFECTED AREA(S) TWICE DAILY NEEDED FOR PAIN 100 g Active clotrimazole (Lotrimin) 1 % cream Apply to Affected Areas twice daily in the morning and evening 60 g Active cetirizine (ZyrTEC) 10 MG tablet Take 0.5 tablets (5 mg) by mouth Once per day. 15 tablet 024 2024 Active levothyroxine (Synthroid, Levoxyl) 125 MCG tabletIndicatio ns:Hypothyroidi sm, unspecified type Take 1 tablet (125 mcg) by mouth in the morning. 90 tablet 1 Active omeprazole (PriLOSEC) [address] capsuleIndicati ons:Chronic GERD TAKE 1 CAPSULE BY MOUTH TWICE DAILY IN THE MORNING AND IN THE EVENING WITH FOOD 180 capsule Active amLODIPine (Norvasc) 10 MG tabletIndicatio ns:Primary hypertension Take 1 tablet (10 mg) by mouth in the morning. 90 tablet 1 Active lidocaine (Lidoderm) 5 % patchIndication s:Chronic neck pain Apply 1 patch topically See administration instructions. Remove & discard patch within 12 hours or as directed by . 30 patch Active Continuous Glucose Rescue Boat Operator (FreeStyle Gurmeet 2 Neffs) deviceIndicatio ns:Type 2 diabetes mellitus with chronic kidney disease on chronic dialysis, with long-term current use of insulin ([facility]) Use for continuous glucose monitoring per package directions 1 each Active ipratropium (Atrovent) 0.03 % nasal spray USE 2 SPRAYS IN EACH NOSTRIL THREE TIMES DAILY DIRECTED 30 mL 11 Active albuterol (Ventolin HFA) 108 (90 Base) MCG/ACT inhalerIndicati ons:Asthma, unspecified asthma severity, unspecified whether complicated, unspecified whether persistent INHALE 2 PUFFS BY MOUTH EVERY 4 TO 6 HOURS NEEDED FOR WHEEZING OR SHORTNESS OF BREATH 18 g 11 Active Continuous Glucose Sensor (FreeStyle Gurmeet 2 Sensor) miscIndications :Type 2 diabetes mellitus with chronic kidney disease on chronic dialysis, with long-term current use of insulin ([facility]) USE DIRECTED TO TEST BLOOD SUGAR EVERY 8 HOURS CHANGE EVERY 14 DAYS 6 each 3 Active cyanocobalamin (Vitamin B-12) 1000 MCG tabletIndicatio ns:B12 deficiency Take 1 tablet (1,000 mcg) by mouth 2 (two) times a week. 8 tablet 11 2024 Active semaglutide (Ozempic, 1 MG/DOSE,) 4 MG/3ML solution pen-injectorInd ications:Type 2 Diabetes Mellitus Inject 1 mg under the skin 1 (one) time per week. 3 mL Active insulin glargine (Lantus SoloStar) 100 UNIT/ML penIndications: Type 2 diabetes mellitus with chronic kidney disease on chronic dialysis, with long-term current use of insulin ([facility]) INJECT 28 UNITS SUBCUTANEOUSLY ONCE DAILY 15 mL Active atorvastatin (Lipitor) 80 MG tablet Take 1 tablet (80 mg) by mouth at bedtime. 90 tablet 3 Active colchicine 0.6 MG tabletIndicatio ns:Pericardial effusion Take 1/2 tablet once daily. 45 tablet 3 Active zolpidem (Ambien) 10 MG tabletIndicatio ns:Anxiety TAKE 1 TABLET BY MOUTH EVERY DAY AT BEDTIME NEEDED FOR SLEEP Do not start before May 29, 2024. 28 tablet Active clonazePAM (KlonoPIN) 1 MG tabletIndicatio ns:Anxiety Take 1 tablet (1 mg) by mouth 2 times daily for 28 days. Do not start before May 29, 2024. 56 tablet 024 2024 Active oxyCODONE-aceta minophen (Percocet) 10-325 MG tabletIndicatio ns:Chronic neck pain Take 1 tablet by mouth every 4 (four) hours if needed for severe pain for up to 28 days. Do not start before May 28, 2024. 168 tablet 024 2024 Active Lancet Devices (Lancing Device) miscIndications :Type 2 diabetes mellitus with other specified complication, with long-term current use of insulin ([facility]) Use as directed to check BG up to three times daily 1 each 025 Active Accu-Chek Softclix Lancets lancetsIndicati ons:Type 2 diabetes mellitus with other specified complication, with long-term current use of insulin (CMS/[facility]) TEST BLOOD SUGAR 3 TIMES PER DAY 100 each 025 Active Alcohol Swabs (Easy Touch Alcohol Prep Medium) 70 % padsIndications :Type 2 diabetes mellitus with other specified complication, with long-term current use of insulin ([facility]) Use up to 4 daily as directed 100 each 025 Active glucose blood (FreeStyle Precision Andrés Test) test stripIndication s:Type 2 diabetes mellitus with other specified complication, with long-term current use of insulin ([facility]) Use to test blood sugar up to 3 times daily, as directed 100 each 025 Active gabapentin (Neurontin) 100 MG capsule TAKE 1 CAPSULE BY MOUTH TWICE DAILY IN THE MORNING AND IN THE EVENING 2024 Discontinued(T herapy completed) lactulose (Chronulac) 10 GM/15ML solution TAKE 15 ML BY MOUTH THREE TIMES DAILY IN THE MORNING, EVENING, AND BEDTIME FOR 10 DAYS 022 2024 Discontinued(M ed list cleanup (will not trigger notification to Pharmacy)) tamsulosin (Flomax) 0.4 MG 24 hr capsule TAKE 1 CAPSULE BY MOUTH EVERY EVENING 022 2024 Discontinued(M ed list cleanup (will not trigger notification to Pharmacy)) TRUEplus Lancets 33G miscIndications :Type 2 diabetes mellitus with other specified complication, unspecified whether long term care phlebotomist insulin use ([facility]) TEST BLOOD SUGAR 4-6 TIMES DAILY 100 each 023 2024 Discontinued(A lternate therapy) isosorbide mononitrate ER (Imdur) 30 MG 24 hr tablet TAKE 1 TABLET BY MOUTH EVERY DAY 023 2024 Discontinued(M ed list cleanup (will not trigger notification to Pharmacy)) nitroglycerin (Nitrostat) 0.[address] 1 TABLET UNDER THE TONGUE NEEDED FOR CHEST PAIN - MAY REPEAT IN 5 MINUTES TWICE. IF NO RELIEF CALL 911 OR GO TO EMERGENCY ROOM. 023 2024 Discontinued(M ed list cleanup (will not trigger notification to Pharmacy)) lidocaine-prilo rogerio (Emla) 2.5-2.5 % cream APPLY SMALL AMOUNT TO ACCESS SITE (AVF) 1 HOUR BEFORE DIALYSIS. COVER WITH OCCLUSIVE DRESSING (SARAN WRAP) 023 2024 Discontinued(M ed list cleanup (will not trigger notification to Pharmacy)) Alcohol Swabs (Easy Touch Alcohol Prep Medium) 70 % pads TEST BLOOD SUGAR THREE TIMES DAILY 100 each 11 023 2024 Discontinued(R eorder (will not trigger notification to Pharmacy)) colchicine 0.6 MG tabletIndicatio ns:Pericardial effusion TAKE 1/2 TABLET BY MOUTH EVERY MORNING 45 tablet 3 024 2023 Discontinued(R eorder (will not trigger notification to Pharmacy)) atorvastatin (Lipitor) 80 MG tablet Take 1 tablet (80 mg) by mouth at bedtime. 90 tablet 3 024 2023 Discontinued(R eorder (will not trigger notification to Pharmacy)) glucose blood (FreeStyle Precision Andrés Test) test stripIndication s:Type 2 diabetes mellitus with chronic kidney disease on chronic dialysis, with long-term current use of insulin ([facility]) Use to test blood sugar up to 4 times daily, as directed 100 each 024 2024 Discontinued(R eorder (will not trigger notification to Pharmacy)) oxyCODONE-aceta minophen (Percocet) 10-325 MG tabletIndicatio ns:Chronic neck pain Take 1 tablet by mouth every 4 (four) hours if needed for severe pain for up to 28 days. Do NOT start until April 30, 2024. 168 tablet 024 2023 Discontinued(R eorder (will not trigger notification to Pharmacy)) zolpidem (Ambien) 10 MG tabletIndicatio ns:Anxiety TAKE 1 TABLET BY MOUTH EVERY DAY AT BEDTIME NEEDED FOR SLEEP 28 tablet 024 2023 Discontinued(R eorder (will not trigger notification to Pharmacy)) clonazePAM (KlonoPIN) 1 MG tabletIndicatio ns:Anxiety Take 1 tablet (1 mg) by mouth 2 times daily for 28 days. 56 tablet 024 2023 Discontinued(R eorder (will not trigger notification to Pharmacy)) Accu-Chek Softclix Lancets lancetsIndicati ons:Type 2 diabetes mellitus with other specified complication, with long-term current use of insulin (CMS/HCC) TEST BLOOD SUGAR 3 TIMES PER DAY 100 each 11 024 2024 Discontinued(A lternate therapy) glucose blood (Accu-Chek Guide) test stripIndication s:Type 2 diabetes mellitus with other specified complication, with long-term current use of insulin (CMS/HCC) TEST BLOOD SUGAR 3 TIMES PER DAY 100 strip 11 024 2024 Discontinued(A lternate therapy) Active Problems Problem Noted Date Diagnosed Date Acquired absence of kidney 03/23/2024 Personal history of nicotine dependence 03/23/20 24 H/O umbilical hernia repair 03/05/2024 Moderate depressive disorder 05/31/2023 Assessment & Plan (05/31/2023 11:23 AM EST): PROGRESS NOTE: ID: Joshua is a 62 y.o. Black cis-male with previous documented hx of Depression. He has Hx of MH services including OP Psychotherapy and psychopharmacology, who presents for Depression. He livies with his , who has been very supportive with him and his care. During IBH Consult Joshua presenting with depressed mood, loss of interests/pleasure , changes in sleep sleeping too much, psychomotor retardation, thoughts of worthlessness or guilt, fatigue/loss of energy and excessive worry/anxiety, difficulty controlling worry, restless/keyed up/On edge, easily fatigued, irritability, and sleep disturbance such as sleeping too much; for a period of 4 months, for all symptoms in the context of waiting for a kidney transplant, reported he has 2 donors but the process is long and his is concern about it, also taking dialysis 3 x/week, his daughter is homeless and living in a hotel with her children and , him not been able to support her is a big stressor for him. Currently taking psych meds prescribed by PCP (ambien 10mg, Klonopin 1mg). PLAN: New/Additional Services needed: Off-site services for Behavioral Health Integration Plan: External OP therapy referral and OP psychiatry Referral Patient Self Plan: Patient to utilize skills provided in intervention, [facility], and Comply with medication. Mild anxiety 05/31/2023 Atrial flutter 02/03/2023 CAD (coronary artery disease) 02/03/2023 Cardiomyopathy 02/03/2023 Chronic systolic congestive heart failure 2022 Tubular adenomas 02/03/2023 Diabetic nephropathy 02/03/2023 Diastolic dysfunction 02/03/2023 History of neuroendocrine cancer 02/03/2023 Low back pain 02/03/2023 Speech abnormality 02/03/2023 Mild protein-calorie malnutrition 11/15/2022 Anemia 08/30/2022 Inferior myocardial infarction 08/30/2022 Dependence on renal dialysis 08/30/2022 Pericardial effusion 08/30/2022 Secondary hyperparathyroidism of renal origin Unspecified cirrhosis of liver 08/30/2022 Clear cell renal cell carcinoma 06/23/2022 Chronic gastroesophageal reflux disease 06/23/19 23 S/p nephrectomy 06/23/2022 History of cholecystectomy 06/23/2022 Hypothyroidism 06/23/2022 History of CVA (cerebrovascular accident) 2022 ESRD on hemodialysis 01/05/2022 Assessment & Plan (12/23/2022 11:10 AM EDT): Continue HD TIW Pt will have labs done after next dialysis fu with renal Type 2 diabetes mellitus 12/17/2021 Assessment & Plan (12/23/2022 11:09 AM EDT): A1C is at goal, pt with recent hyperglycemia. Continue lantus 30 units for now, pt will check fingersticks BID and PRN hypoglycemic symptoms as bs levels could normalize once he is more stable from rapid afib FU with PCP next month. BMI 32.0-32.9,adult 02/09/2018 Obstructive sleep apnea 06/02/2015 Asthma 02/28/2015 Chronic neck pain 02/28/2015 Degenerative disc disease, cervical 02/28/2015 Essential hypertension 02/28/2015 Assessment & Plan (12/23/2022 11:10 AM EDT): BP is at goal. Continue HD TIW Continue amlodipine 10 mg + carvedilol 12.5 BID + Lasix 40mg per day Hyperlipidemia 02/28/2015 Osteoarthritis 02/28/2015 Vitamin B deficiency 02/28/2015 Resolved Problems Problem Noted Date Diagnosed Date Resolved Date Acute kidney injury superimp osed on CKD (CMS/[facility]) 02/03/2023 02/03/2023 Depression 02/03/2023 02/03/2023 Radiculitis 02/03/2023 05/05/2023 Rapid atrial fibrillation 12/23/2022 Assessment & Plan (12/23/2022 11:09 AM EDT): Pt today with bigemini and supraventricular complexes this is probably related to digoxin toxicity vs electrolyte imbalance called cardiology and they agreed to send pt to the ER Dr Berrios cardiology will see him at the ED. Pt agreed to be sent to the ED will call ambulance and follow on the pt after discahrge Allergy, unspecified, initial encounter 08/30/2022 02/03/2023 Anaphylactic shock, unspecif ied, initial encounter 08/30/2022 02/03/2023 Coagulation defect, unspecified 08/30/2022 02/03/2023 Cramp and spasm 08/30/2022 02/03/2023 Diarrhea, unspecified 08/30/20222022 Shortness of breath 08/30/2022 02/04/20 23 Encounter for immunization 08/30/2022 0 02/03/2023 Fever, unspecified 08/30/2022 Hypotension of hemodialysis 08/30/2022 02/03/2023 Iron deficiency anemia, unspecified 08/30/2022 02/03/2023 Nausea 08/30/2022 02/03/2023 Neoplasm of uncertain behavi or of unspecified kidney 08/30/2022 02/03/2023 Other abnormalities of breathing 08/30/2022 02/03/2023 Other benign neuroendocrine tumors 08/30/2022 02/03/2023 Other disorders of phosphorus metabolism 08/30/2022 02/03/2023 Pain, unspecified 08/30/2022 02/03/2023 Proteinuria, unspecified 08/30/202211/2022 Pruritus, unspecified 08/30/20222022 Headache, unspecified 08/30/20222022 Other pericardial effusion (noninflammatory) 12/20/2023 Personal history of transien t ischemic attack (TIA), and cerebral infarction without residual deficits 07/06/2022 05/05/2023 Hypoglycemia, unspecified 06/23/2022 Malignant tumor of stomach 06/23/2022 1 07/06/2022 End stage renal disease 12/17/2021 09/0 11/2022 Major depression, recurrent, chronic 06/02/2015 05/31/2023 Encounters Date Type Department Care Team Description 06/19/2024 9:30 AM EST Clinical Support [facility] [place] [address] April Murrell, audit intern neck pain (Primary Dx) 06/19/2024 Telephone [facility] [place] [address] April Murrell, RN BPI & CLAIRE Scoring; Abnormal UTOX 06/19/2024 Travel 06/19/2024 Telephone [facility] [place] [address] April Murrell, PADILLA Recommend LAUNDRY BAG PUNCH OPERATOR Tier 2 06/15/2024 1:30 PM EST Office Visit [facility] [address] [facility] [place] [address] Justin Anne DMD 05/31/2024 3:00 PM EST Office Visit [facility] [address] [facility] [place] [address] Justin Anne, DMD 05/25/2024 Telephone C MEDICINE [address] [facility] [place] [address] Anum Sams, RN Dexcom 05/24/2024 Refill [facility] [address] [facility] [place] [address] Macie Link, DO Anxiety; Chronic neck pain 05/24/2024 Refill [facility] [address] [facility] [place] [address] Macie Link, Anxiety 05/24/2024 Refill [facility] [address] [facility] [place] [address] Sobia Crooks MD Chronic neck pain 05/24/2024 Refill [facility] [address] [facility] [place] [address] Macie Link, DO Pericardial effusion 05/21/2024 Refill [facility] [address] [place] [address] Flor Clark, PharmD 05/04/2024 Refill [facility] [address] [place] [address] Anum Sams, RN Type 2 diabetes mellitus with other specified complication, with long-term current use of insulin ([facility]) 05/04/2024 Refill [facility] [address] [place] [address] Macie Link, Hypothyroidism, unspecified type; Chronic GERD 04/30/2024 Refill [facility] [address] [facility] [place] [address] Macie Link, Anxiety 04/30/2024 Refill [facility] [address] [facility] [place] [address] Macie Link, Anxiety 04/25/2024 Refill [facility] [address] [facility] [place] [address] Macie Link, Chronic neck pain 04/17/2024 Travel 04/09/2024 Orders Only [facility] [address] [facility] [place] [address] Macie Link DO 04/09/2024 Telephone [facility] [address] [place] [address] April Hernandez, RN Results 04/08/2024 Orders Only [facility] [address] [facility] [place] [address] Macie Link DO Type 2 diabetes mellitus with chronic kidney disease on chronic dialysis, with long-term current use of insulin (CMS/[facility]) (Primary Dx) 04/08/2024 Orders Only [facility] [address] [place] [address] Macie Link DO Low TSH level (Primary Dx); B12 deficiency; Abnormal results of thyroid function studies 04/03/2024 Telephone [facility] [address] [facility] [place] [address] Celeste Lim 04/03/2024 Refill [facility] [address] [place] [address] Macie Link DO Type 2 diabetes mellitus with chronic kidney disease on chronic dialysis, with long-term current use of insulin (CMS/[facility]) 03/30/2024 Refill [facility] [address] [place] [address] Macie Link DO Seasonal allergic rhinitis, unspecified trigger 03/29/2024 10:00 AM EDT Office Visit [facility] [address] [place] [address] Justin Anne, DMD 03/29/2024 Refill [facility] [address] [place] [address] Macie Link DO Chronic neck pain; Anxiety 03/29/2024 Refill [facility] [address] [place] [address] Macie Link DO Chronic neck pain 03/28/2024 Refill [facility] [address] [place] [address] Macie Link DO Asthma, unspecified asthma severity, unspecified whether complicated, unspecified whether persistent 03/27/2024 Travel 03/21/2024 Telephone [facility] [address] [place] [address] April Hernandez, PADILLA 03/20/2024 3:00 PM EDT Clinical Support [address] [address] Anum Sams, RN Forgetfulness 03/20/2024 Travel 03/20/[address] [address] Macie Link DO 03/20/[address] [address] Macie Link, Type 2 diabetes mellitus with other specified complication, with long-term current use of insulin ([facility]) 03/19/2024 3:00 PM EDT Office Visit [facility] [address] [place] [id number] Trina Arrieta Dental plaque (Primary Dx); Dental calculus from Last 3 Months Immunizations Name Administration Dates Next Due COVID-19 Non-US Vaccine, Pro duct Unknown 02/23/2024 Hep B, adult 12/19/2014,05/22/2014,04/03/2014 HepB-CpG 12/29/2022, 3,10/04/2022,09/10 Influenza High-dose Quadriva lent Preservative Free 02/23/2024 Influenza Injectable Quadriv alant Preservative Free IIV4 MDCK 02/20/2022,02/20/2019 Influenza injectable quadriv alent preservative free 02/23/2021,02/11/2020,02/21/2018,02/04,02/14/2016,02/28/2015 Influenza, High Dose Seasona l, Preservative Free 02/11/2015 Influenza, IIV3, injectable 02/23/2021,0 02/11/2020,02/20/2019,02/21,02/04/2017,02/14/2016,02/28/2015 ,04/03/2014,03/02/2011,02/19/2010,03/30,03/06/2003,06/05/2002 Influenza, Split (incl. sandhya fied surface antigen) 03/03/2015,02/14/2013,02/04/2012 Influenza, seasonal, injecta ble, preservative free 02/03/2023 Moderna Covid-19 Vaccine 12+ 03/12/2022,03/12/20 22 Moderna Covid-19 Vaccine 6+ Bivalent 03/12/2022 Pfizer Covid-19 Vaccine 12+ 03/08/2023 Pneumococcal Conjugate PCV 20 12/26/2023, 024 Pneumococcal Polysaccharide PPSV23 05/28,07/03/2012,02/04/2012,11/10 RSV Bivalent 08/18/2023 TD (adult), 2 Lf tetanus tox oid, preservative free, adsorbed 02/23/2022,11/10/2000 Td (adult), unspecified 11/10/2000 Tdap 02/04/2012 Zoster, Recombinant 11/24/2021,09/17/2021 Social History Tobacco Use Types Packs/Day Years Used Date Smoking Tobacco: Former Cigarettes Passive Smoke Exposure: Past Smokeless Tobacco: Never Tobacco Cessation:Counseling Given: Not Answered Alcohol Use Standard Drinks/Week Comments Never 0 [...] not to disclose 2021 10:15 AM EDT Last Filed Vital Signs Vital Sign Reading Time Taken Comments Blood Pressure 130/80 05/31/2024 3:02 PM EST Pulse 65 03/13/2024 9:02 AM EDT Temperature 36.4 ??C (97.6 ??F) 03/13/2024 9:02 AM ED T Respiratory Rate 16 03/13/2024 9:02 AM EDT Oxygen Saturation 98% 03/13/2024 9:02 AM EDT Inhaled Oxygen Concentration - - Weight 89.4 kg (197 lb) 03/13/2024 9:02 AM EDT Height 167.6 cm (5' 6 ) 03/13/2024 9:02 AM EDT Body Mass Index 31.8 03/13/2024 9:02 AM EDT Plan of Treatment Upcoming Encounters Date Type Department Care Team (Late st Contact Info) Description 07/03/2024 1:00 PM EST Medication Management [facility] [address] [place] [address] Flor Clark, PharmD [address] [place] [address] 07/05/2024 2:00 PM EST Office Visit [facility] [address] [place] [address] Karmen Bustamante DDS [address] [place] [address] 09/13/2024 9:00 AM EDT Clinical Support [facility] [address] [place] [address] April Murrell RN 09/24/2024 3:00 PM EDT Office Visit [facility] [address] [place] [address] Trina Arrieta Health Maintenance Due Date Last Done Comments CT Colonography 1959 FIT DNA/Cologuard 1959 FIT 1959 FOBT 1959 Sigmoidoscopy 1959 Diabetes: Foot Exam 09/21/1969 Alcohol/Substance Use Screening 1971 Hepatitis A Vaccines (1 of 2 - Risk 2-dose series) 09/21/1978 Dental Prophylaxis 08/10/2013 02/09/2013 COVID-19 Vaccine ( season) 2024 03/08/2023, 03/12/2022, 03/12/2022, Additional history exists Diabetes: Hemoglobin A1C 09/05/2024 025, 03/13/2024, 12/20/2023, Additional history exists SDOH Screening 09/14/2024 09/15/2023 Dental Oral Exam 09/18/2024 03/19/2024, , 08/20/2013, Additional history exists Eye Exam 11/02/2024 11/03/2023, 06/0 10/2023, 11/03/2023, Additional history exists Lipid Panel 11/02/2024 11/03/2023, 12/09/2020 Depression Screening 12/19/2024 12/20/2023, 12/20/19 24 Colonoscopy 03/11/2025 02/23/2022, 02/25/2016 Colorectal Cancer Screening 03/11/2025 Dental X-Ray: Bitewings 03/20/2025 03/19/20 24, 03/09/2024, 12/11/2014, Additional history exists Tobacco Screening 06/15/2025 06/15/2024 Dental X-Ray: Full Mouth 03/20/2027 03/19/2024, 11/27 DTaP/Tdap/Td Vaccines (3 - Td or Tdap) 02/24/2032 02/23/2022, 02/04/2012, 11/10/2000, Additional history exists HIV Screening Completed 12/09/2020, 07/18/2019 Hepatitis C Screening Completed 12/09/2020, 020 Zoster Vaccines Completed 11/24/2021, 09/17/2021 Hepatitis B Vaccines Completed 12/29/2022, 11/03/2022, 10/04/2022, Additional history exists RSV Patients and Patients Aged 60 years or older Completed 08/18/2023 Pneumococcal Vaccine: Pediatrics (0 to 5 Years) and At-Risk Patients (6 to 64 Years) Completed 12/26/2023, 06/22/2023, 05/28/2022, Additional history exists Influenza Vaccine Completed 02/23/2024, , 02/20/2022, Additional history exists HIB Vaccines Aged Out No longer eligi ble based on patient's age to complete this topic HPV Vaccines Aged Out No longer eligi ble based on patient's age to complete this topic IPV Vaccines Aged Out No longer eligi ble based on patient's age to complete this topic Meningococcal Vaccine Aged Out No doreen evon eligible based on patient's age to complete this topic RSV under 20 months Aged Out No longe r eligible based on patient's age to complete this topic Rotavirus Vaccines Aged Out No longer eligible based on patient's age to complete this topic Goals Goal Patient Goal Type Associated Problems Recent Progress Patient-Stated? Author Hemoglobin A1c < 7 Result Component 7.4( 2:10 PM EST) No Flor Clark, Jaspreet Note: A1c value is falsely low d/t dialysis. Ordered fructosamine value 08/18/23 and once resulted will use to calculate a more accurate A1c Record your blood sugar as directed Result Component No Flor Clark, Jaspreet Note: Use CGM, ensuring sensor is scanned at least once every 8 hours to capture 24H data. Check BG manually, as directed. Off label use - patient is on dialysis and CGM values are potentially inaccurate in these patients. He was not agreeable to discontinue use in CDTM 08/18/23. Per PCP, will continue CGM use at this time. Procedures Procedure Name Priority Date/Time Associated Diagnosis Comments POCT WOODY-14 URINE DRUG SCREEN Routine 06/19/2024 9:21 AM EST Chronic neck pain 14 CROWN - PORCELAIN/CERAMIC Routine 06/15/2024 1:30 PM EST ADJUNCTIVE GENERAL SERVICES - PROFESSIONAL VISITS - CASE PRESENTATION, SUBSEQUENT TO DETAILED AND EXTENSIVE TREATMENT PLANNING Routine 06/15/2024 1:30 PM EST POCT GLYCATED HEMOGLOBIN, TOTAL Routine 06/07/2024 2:10 PM EST Type 2 diabetes mellitus with other specified complication, with long-term current use of insulin ([facility]) NO CHARGE PROCEDURE Routine 05/31/2024 3 :00 PM EST MR BRAIN WO CONTRAST Routine 04/15/2024 10:26 AM EST Forgetfulness FRUCTOSAMINE Routine 04/09/2024 10:50 AM EST T3, TOTAL Routine 04/09/2024 10:50 AM EST Low TSH level T4, FREE Routine 04/09/2024 10:50 AM EST Low TSH level Abnormal results of thyroid function studies TSH Routine 04/09/2024 10:50 AM EST Low TSH level Abnormal results of thyroid function studies CROWN PREP Routine 03/29/2024 10:00 AM EDT PERIODIC ORAL EVALUATION - ESTABLISHED PATIENT Routine 03/19/2024 3:00 PM EDT ORAL HYGIENE INSTRUCTIONS Routine 03/19/2024 3:00 PM EDT Dental plaque Dental calculus DIAGNOSTIC - DIAGNOSTIC IMAGING - INTRAORAL - COMPREHENSIVE SERIES OF RADIOGRAPHIC IMAGES Routine 03/19/2024 3:00 PM EDT ADJUNCTIVE GENERAL SERVICES - PROFESSIONAL VISITS - CASE PRESENTATION, SUBSEQUENT TO DETAILED AND EXTENSIVE TREATMENT PLANNING Routine 03/19/2024 3:00 PM EDT LIPID PANEL, STANDARD Routine 11/03/2023 10:32 AM EDT HM COLONOSCOPY Routine 02/23/2022 7:37 AM EDT ZZZ HISTORICAL HEPATITIS C AB W/REFL TO HCV RNA, QN, PCR Routine 12/09/2020 10:36 AM EDT HIV 1/2 ANTIGEN/ANTIBODY, FOURTH GENERATION W/RFL Routine 12/09/2020 10:36 AM EDT PROPHYLAXIS - ADULT Routine 02/09/2013 1 2:00 AM EDT from Last 3 Months or Most Recently Relevant to Health Maintenance Results * (ABNORMAL) POCT WOODY-14 Urine Drug Screen (06/19/2024 9:21 AM EST) Benzodiazepines Screen, Urine Negative Oxycodone Screen, Urine Positive Urine Urine specimen obtained by clean catch procedure / Unknown 06/19/2024 9:21 AM EST Narrative April Murrell RN - 06/19/2024 9:21 AM EST UTOX cup Lot#[id number] Exp. 02/21/26 Internal Pass Control Macie Link DO POINT OF CARE TEST ENTER/EVENS T ORDERABLES Final Result * (ABNORMAL) POCT HGB A1C (06/07/2024 2:10 PM EST) Pathologist [facility] Hemoglobin A1C 7.4(A) 4.0 - 6.0 % Blood 06/07/2024 2:10 PM EST Macie Link DO POINT OF CARE TEST ENTER/EVENS T ORDERABLES Final Result * MR Brain w/o Contrast (04/15/2024 10:26 AM EST) Anatomical Region Laterality Modality Brain Magnetic Resonan ce 04/15/2024 10:2 6 AM EST Narrative 05/09/2024 7:59 AM EST ? [facility] ?[address] ?[place] [address] ? Magnetic Resonance Report ? Signed ? Patient: Barnard Pretty,Joshua ?MR# ?? : [id number] ? : 1960 ?Acct:[id number] ? Age/Sex: 63 / M ?ADM Date: 11/17/24 ? Loc: HO.MRI ? Attending Dr: Macie Link DO ? Ordering Physician: Macie Link DO ?? Date of Service: 04/15/24 ?? Procedure(s): MR head/brain wo con ?? Accession Number(s): [id number] ? cc: Macie Link DO ? EXAMINATION: ?? MR BRAIN WITHOUT CONTRAST ? CLINICAL INFORMATION: ?? Worsening memory. ? COMPARISON: ?? CT head from 12/10/2022. ? TECHNIQUE: ?? MRI of the brain was obtained using routine sequences without contrast. ? FINDINGS: ?? No focal restricted diffusion is demonstrated to suggest acute or ?? subacute cerebral ischemia. Chronic region of encephalomalacia in the ?? left black radiata/lentiform nucleus with hemosiderin staining. ?? 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 No evidence of ?? acute hemorrhagic products on heme-sensitive imaging. Scattered and ?? partially confluent periventricular, deep white matter, and brainstem ?? T2 FLAIR hyperintensities consistent with moderate underlying ?? microangiopathy. Exvacuodilatation of the left lateral ventricle. ?? Otherwise, proportional prominence of the ventricles and sulcal spaces ?? without evidence of obstructive hydrocephalus. No abnormal mass effect. ?? No midline shift. ? Normal appearance of the pituitary gland. Normal positioning of the ?? cerebellar tonsils. Normal arterial and venous vascular flow voids are ?? present. ? Normal, homogeneous marrow signal. Mild mucosal thickening of the ?? paranasal sinuses. No signal abnormalities within the mastoids. ?? Bilateral lens extractions. ? MR/MR head/brain wo con ?? IMPRESSION: ?? 1. ??No acute intracranial abnormalities. ?? 2. ??Chronic region of encephalomalacia in the left black ?? radiata/lentiform nucleus. Moderate underlying microangiopathy and ?? generalized cerebral volume loss. ? Electronically signed by: ??Feroz Dennis DO ??05/09/2024 07:56 AM EST RP ? Dictated By: ?Stuart Dennis DO ? Signed By: ?<Electronically signed by Stuart Dennis DO in OV> ? 05/09/24 0756 ? DD/ 1026 ? TD/TT: 04/15/24 1115 ? Ocean Freight Forwarder: JL ? Procedure Note Nely Vargas - 05/09/[address] [address] Magnetic Resonance Report Signed Patient: BarnardJoshua AlbrightMR# : [id number] : 1960Acct:[id number] Age/Sex: 63 / MADM Date: 04/15/24 Loc: HO.MRI Attending Dr: Macie Link DO Ordering Physician: Macie Link DO Date of Service: 04/15/24 Procedure(s): MR head/brain wo con Accession Number(s): [id number] cc: Macie Link DO EXAMINATION: MR BRAIN WITHOUT CONTRAST CLINICAL INFORMATION: Worsening memory. COMPARISON: CT head from 12/10/2022. TECHNIQUE: MRI of the brain was obtained using routine sequences without contrast. FINDINGS: No focal restricted diffusion is demonstrated to suggest acute or subacute cerebral ischemia. Chronic region of encephalomalacia in the left black radiata/lentiform nucleus with hemosiderin staining. 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 No evidence of acute hemorrhagic products on heme-sensitive imaging. Scattered and partially confluent periventricular, deep white matter, and brainstem T2 FLAIR hyperintensities consistent with moderate underlying microangiopathy. Exvacuodilatation of the left lateral ventricle. Otherwise, proportional prominence of the ventricles and sulcal spaces without evidence of obstructive hydrocephalus. No abnormal mass effect. No midline shift. Normal appearance of the pituitary gland. Normal positioning of the cerebellar tonsils. Normal arterial and venous vascular flow voids are present. Normal, homogeneous marrow signal. Mild mucosal thickening of the paranasal sinuses. No signal abnormalities within the mastoids. Bilateral lens extractions. MR/MR head/brain wo con IMPRESSION: 1. No acute intracranial abnormalities. 2. Chronic region of encephalomalacia in the left black radiata/lentiform nucleus. Moderate underlying microangiopathy and generalized cerebral volume loss. Electronically signed by: Feroz Dennis DO 05/09/2024 07:56 AM EST Dictated By: Stuart Dennis DO Signed By: <Electronically signed by Stuart Dennis DO in OV> 05/09/24 0756 DD/ 1026 TD/TT: 04/15/24 1115 [employer]er: ASHER Macie Link DO IM MRI PROCEDURES Edited Re sult - Final * (ABNORMAL) Fructosamine (04/09/2024 10:50 AM EST) Fructosamine 377(A) 205 - 285 umol/L [facility] Comment:THIS TEST WAS PERFOR MED AT:[facility]/[id number] [place] [id number] JULES MD,PHD 04/09/2024 10:5 0 AM EST 04/09/2024 1:09 PM EST Macie Link DO LAB BLOOD ORDERABLES Final R esult [facility] [address] [place] [phone] * T3, Total (04/09/2024 10:50 AM EST) T3, Total 81 76 - 181 ng/dL [facility] Comment:THIS TEST WAS PERFOR MED AT:[facility] [address] [id number] SPARKS MD Blood Venous blood specimen / Unknown 04/09/2024 10:50 AM EST 04/09/2024 1:09 PM EST Macie Link LAB BLOOD ORDERABLES Final R esult [facility] [address] [place] [phone] * TSH (04/09/2024 10:50 AM EST) Thyroid Stimulating Hormone 0.64 0.32 - 4.0 uIU/mL [facility] Comment:TSH 3rd Generation ( [facility]) Blood Venous blood specimen / Unknown 04/09/2024 10:50 AM EST 04/09/2024 1:09 PM EST Macie Link DO LAB BLOOD ORDERABLES Final R esult Performing Organization Address City/[facility]/ZIP Co de Phone Number [facility] [address] [place] [phone] * T4, Free (04/09/2024 10:50 AM EST) Free T4 (Free Thyroxine) 1.28 0.71 - 1.85 ng/dL [facility] Blood Venous blood specimen / Unknown 04/09/2024 10:50 AM EST 04/09/2024 1:09 PM EST Macie Fariba DO LAB BLOOD ORDERABLES Final R esult Performing Organization Address [facility] Co de Phone Number [facility] [address] [place] [address] [phone] * (ABNORMAL) Lipid Panel, Standard (11/03/2023 10:32 AM EDT) Triglycerides 188(H) <150 mg/dL [facility] Comment:Desirable Triglyceri de: less than 150 mg/dLBorderline High Triglyceride 150-199 mg/dLHigh Triglyceride: 200-499 mg/dLVery High Triglyceride: greater than or equal to 5OO mg/dL Cholesterol 112 <200 mg/dL [facility] Comment:Desirable Cholestero l: less than 200 mg/dLBorderline High Cholesterol: 200-239 mg/dLHigh Cholesterol: greater than 239 mg/dL LDL Cholesterol Calculated 43 <100 mg/dL [facility] Comment:Desirable LDL: less than 100 mg/dLNear Optimal/Above Optimal LDL: 110- 129 mg/dLBorderline High LDL: 130-159 mg/dLHigh LDL: 160-189 mg/dLVery High LDL: greater than or equal to 190 mg/dL HDL Cholesterol 32(L) >40 mg/dL [facility] Comment:Desirable HDL: great er than 40 mg/dL Note: This HDL assay may give artificially low results in patients with liver disease. 11/03/2023 10:3 2 AM EDT 11/03/2023 11:21 AM EDT Macie Fariba DO LAB BLOOD ORDERABLES Final R esult [facility] [address] [place] [phone] * Hm Colonoscopy (02/23/2022 7:37 AM EDT) Historical Provider HEALTH MAINTENANCE Final Result * HEPATITIS C AB W/REFL TO HCV RNA, QN, PCR (12/09/2020 10:36 AM EDT) HEPATITIS C ANTIBODY NON-REACT ALBINO NON-REACT ALBINO [facility] INDEX 0.01 <1.00 [facility] Comment: ?? HCV antibody was non-reactive. There is no laboratory ?? evidence of HCV infection. ?? In most cases, no further action is required. However, if recent HCV exposure is suspected, a test for HCV RNA (test code 65237) is suggested. ?? For additional information please refer to http://education.[facility]/faq/HFB49w9 (This link is being provided for informational/ educational purposes only.) ?? 12/09/2020 10:3 6 AM EDT Macie Link DO HISTORICAL/NON ORDERABLE LAB S Final Result Performing Organization Address City/[facility]/ZIP Co de Phone Number [facility] [address] * HIV 1/2 ANTIGEN/ANTIBODY,FOURTH GENERATION W/RFL (12/09/2020 10:36 AM EDT) HIV-1/2 ANTIGEN AND ANTIBODIES, 4TH GENERATION W/ REFLEX NON-REACT ALBINO NON-REACT ALBINO [facility] Comment: HIV-1 antigen and HIV-1/HIV-2 antibodies were not detected. There is no laboratory evidence of HIV infection. ?? PLEASE NOTE: This information has been disclosed to you from records whose confidentiality may be protected by state law. ??If your state requires such protection, then the state law prohibits you from making any further disclosure of the information without the specific written consent of the person to whom it pertains, or as otherwise permitted by law. A general authorization for the release of medical or other information is NOT sufficient for this purpose. ? For additional information please refer to http://education.[facility]/faq/GQJ644 (This link is being provided for informational/ educational purposes only.) ? The performance of this assay has not been clinically validated in patients less than 2 years old. ?? 12/09/2020 10:3 6 AM EDT us Macie Link DO LAB BLOOD ORDERABLES Final R esult [facility] [place] [address], from Last 3 Months or Most Recently Relevant to Health Maintenance Insurance MEDICARE [facility] STANDARD D[place] STAND ADULT Care Teams Warehouse Incentive Selector Relationship Specialty Start Date End Date Macie Link DO [address] [place] [address] PCP - General Family Medicine 05/30/18 Flor Clark PharmD [address] [place] [address] Pharmacist Internal Medicine 08/18/23
--- OUTSIDE RECORDS SUMMARY | 2024-06-19 17:45 | XMS_ITS | Encounter Summary ---
Author Organization [employer] Address [address] [place] [address] Care Team Providers Care Contaminated Land Consultant Name Role Phone FaribaCarissaMacie Primary Care Provider [phone] Flor Clark PharmD Unavailable [phone] Reason for Visit * Reason Comments [place] Encounter Details Date Type Department Care Team ([facility] st Contact Info) Description 05/31/2024 3:00 PM EST Office Visit [facility] [address] [place] [address] Justin Anne, SHAY [address] [place] [address] Social History Tobacco Use Types Packs/Day Years [...] AM EDT documented as of this encounter Last Filed Vital Signs Vital Sign Reading Time Taken Comments Blood Pressure 130/80 05/31/2024 3:02 PM EST Pulse - - Temperature - - Respiratory Rate - - Oxygen Saturation - - Inhaled Oxygen Concentration - - Weight - - Height - - Body Mass Index - - documented in this encounter Progress Notes * Justin Anne DMD - 05/31/2024 3:00 PM EST Tooth#14: lab fabricated crown does not fit because pt has not come back to the office to have thiscrown insert for two months Retake new impression for crown #14 NV: Delivery of crown #14 and lab adjusted p/ Mariola documented in this encounter Plan of Treatment Upcoming Encounters Date Type Department Care Team (Late st Contact Info) Description 07/03/2024 1:00 PM EST Medication Management [facility] [address] [place] [address] Flor Clark, PharmD [address] [place] [address] 07/05/2024 2:00 PM EST Office Visit [facility] [address] [place] [address] Karmen Bustamante, DDS [address] [place] [address] 09/13/2024 9:00 AM EDT Clinical Support [facility] [address] [place] [address] April Murrell RN 09/24/2024 3:00 PM EDT Office Visit [facility] [address] [place] [address] Trina Arrieta documented as of this encounter [...] Procedure Name Priority Date/Time Associated Diagnosis Comments NO CHARGE PROCEDURE Routine 05/31/2024 3:00 PM EST documented in this encounter Visit Diagnoses Not on filedocumented in this encounter Additional Health Concerns Assessment Noted Time PHQ-9 Depression Total Score: 5 12/20/19 24 9:37 AM EDT documented as of this encounter Care Teams Contaminated Land Consultant Relationship Specialty Start Date End Date Macie Link DO [address] [place] [address] PCP - General Family Medicine 05/30/18 Flor Clark PharmD [address] [place] [address] Pharmacist Internal Medicine 08/18/23 documented as of this encounter
--- OUTSIDE RECORDS SUMMARY | 2024-06-19 17:45 | XMS_ITS | Encounter Summary ---
Author Organization [employer] Address [address] [facility] [address] [place] [address] Care Team Providers Care Vehicle Assembly Inspector Name Role Phone Macie Link DO Primary Care Provider + [phone] Flor Clark PharmD Unavailable [phone] Reason for Visit * Reason Onset Date Comments Med Refill 02/28/2024 Encounter Details Date Type Department Care Team ([facility] st Contact Info) Description 02/28/2024 Telephone [facility] [address] [place] [address] Macie Link DO [address] [place] [address] Med Refill Social History Tobacco Use Types Packs/Day Years [...] encounter Miscellaneous Notes * Telephone Encounter - Macie Stiles LPN - 02/28/2024 12:51 PM EDT ELECTRONIC ORGAN MECHANIC checked on 02/28/24 medication last filled on 02/07/24 #28 to soon for refill. * Telephone Encounter - Oziel Ramirez - 02/28/2024 12:14 PM EDT Tc from pt requesting a refill for zolpidem (Ambien) 10 MG tablet documented in this encounter Plan of Treatment Upcoming Encounters Date Type Department Care Team (Late st Contact Info) Description 07/03/2024 1:00 PM EST Medication Management [facility] [address] [place] [address] Flor Clark, PharmD [address] [place] [address] 07/05/2024 2:00 PM EST Office Visit [facility] [address] [place] [address] Karmen Bustamante DDS [address] [place] [address] 09/13/2024 9:00 AM EDT Clinical Support [facility] [address] [place], [place] [phone] April Murrell, RN 09/24/2024 3:00 PM EDT Office Visit [facility] [address] [place], [place] [phone] Trina Arrieta documented as of this encounter [...] documented as of this encounter Care Teams Vehicle Assembly Inspector Relationship Specialty Start Date End Date Macie Link DO [address] [place], [place] [phone] PCP - General Family Medicine 05/30/18 [place] [address] Pharmacist Internal Medicine 08/18/23 documented as of this encounter
--- OUTSIDE RECORDS SUMMARY | 2024-06-19 17:45 | XMS_ITS | Encounter Summary ---
Author Organization [employer] Address [address] [facility] [address] [place] [address] Care Team Providers Care Administration Internship Name Role Phone ArcadioMacie smith Primary Care Provider + [phone] Flor Clark PharmD Unavailable [phone] Reason for Visit * Reason Comments Med Refill Encounter Details Date Type Department Care Team (Late st Contact Info) Description 05/24/2024 Refill [facility] [address] [place] [address] Sobia Crooks MD [address] [place] [address] Chronic neck pain Social History Tobacco Use Types Packs/Day Years [...] is your housing situation today? I have erendirajerald hauser 09/15/[address] you [...] Description 07/03/2024 1:00 PM EST Medication Management [facility]INE [address] [place] [phone] Flor Clark PharmD [address] [place] [phone] 07/05/2024 2:00 PM EST Office Visit [facility] [address] [place] [phone] Karmen Bustamante DDS [address] [place] [phone] 09/13/2024 9:00 AM EDT Clinical Support [facility] [address] [place] [phone] April Murrell, PADILLA 09/24/2024 3:00 PM EDT Office Visit [facility] [address] [place] [phone] Trina Arrieta documented as of this encounter [...] Visit Diagnoses Diagnosis Chronic neck pain Cervicalgia documented in this encounter Additional Health Concerns Assessment Noted Time PHQ-9 Depression Total Score: 5 12/20/19 24 9:37 AM EDT documented as of this encounter Care Teams Administration Internship Relationship Specialty Start Date End Date Macie Link DO [address] [place] [address] PCP - General Family Medicine 05/30/18 Flor Clark, Jaspreet [address] [place] [address] Pharmacist Internal Medicine 08/18/23 documented as of this encounter
--- OUTSIDE RECORDS SUMMARY | 2024-06-19 17:45 | XMS_ITS | Encounter Summary ---
Author Organization [employer] Address [address] [place] [address] Care Team Providers Care Clinical Administrator Name Role Phone Macie Link DO Primary Care Provider + [phone] Flor Clark PharmD Unavailable [phone] Reason for Visit * Reason Onset Date Comments Med Refill 02/28/2024 Encounter Details Date Type Department Care Team ([facility] st Contact Info) Description 02/28/2024 Telephone [facility] [address] [place] [address] Macie Link DO [address] [place] [address] Med Refill Social History Tobacco Use Types [...] encounter Miscellaneous Notes * Telephone Encounter - April Murrell RN - 02/28/2024 12:17 PM EDT Per [place], both scripts last picked up 02/07/24, refills not due until 03/06/24. Will forward to PCP on 03/02/24. * Telephone Encounter - Oziel Ramirez - 02/28/2024 12:13 PM EDT Tc from pt requesting a refill for oxyCODONE-acetaminophen (Percocet) 10-325 MG tablet and clonazePAM (KlonoPIN) 1 MG tablet documented in this encounter Plan of Treatment Upcoming Encounters Date Type Department Care Team (Late st Contact Info) Description 07/03/2024 1:00 PM EST Medication Management [facility] [address] [place] [address] Flor Clark, PharmD [address] [place] [address] 07/05/2024 2:00 PM EST Office Visit [facility] [address] [place], [place] [phone] [place] Karmen, DDS [address] [place] [address] 09/13/2024 9:00 AM EDT Clinical Support [facility] [address] [place] [address] April Murrell RN 09/24/2024 3:00 PM EDT Office Visit [facility] [address] [place] [address] Trina Arrieta documented as of this encounter [...] documented as of this encounter Care Teams Clinical Administrator Relationship Specialty Start Date End Date Macie Link DO [address], [place] [phone] PCP - General Family Medicine 05/30/18 [place] [address] Pharmacist Internal Medicine 08/18/23 documented as of this encounter
--- OUTSIDE RECORDS SUMMARY | 2024-06-19 17:45 | XMS_ITS | Encounter Summary ---
Author Organization [employer] Address 75 [facility] 7t [place] [address] Care Team Providers Care Hand Sander Name Role Phone Macie Link DO Primary Care Provider [phone] [phone] Flor Clark PharmD Unavailable [phone] Reason for Visit * Reason Comments Med Refill Encounter Details Date Type Department Care Team (Late st Contact Info) Description 12/13/2023 Refill [facility] [address] [place] [address] Macie Link DO [address] [place] [address] Anxiety; Chronic neck pain Social History Tobacco Use [...] 07/03/2024 1:00 PM EST Medication Management [facility] [address] [place] [address] Flor Clark PharmD [address] [place] [address] 07/05/2024 2:00 PM EST Office Visit [facility] ADULT DENTAL [address] [place] [address] Karmen Bustamante DDS [address] [place] [address] 09/13/2024 9:00 AM EDT Clinical Support [facility] [address] [place] [address] April Murrell, PADILLA 09/24/2024 3:00 PM EDT Office Visit [facility] ADULT DENTAL [address] [place] [address] Trina Arrieta documented as of this encounter [...] Visit Diagnoses Diagnosis Anxiety Anxiety state, unspecified Chronic neck pain Cervicalgia documented in this encounter Additional Health Concerns Assessment Noted Time PHQ-9 Depression Total Score: 13 024 9:15 AM EST documented as of this encounter Care Teams Hand Sander Relationship Specialty Start Date End Date Macie Link DO [address] [place] [address] PCP - General Family Medicine 05/30/18 Flor Clark, Jaspreet [address] [place] [address] Pharmacist Internal Medicine 08/18/23 documented as of this encounter
--- OUTSIDE RECORDS SUMMARY | 2024-06-19 17:45 | XMS_ITS | Encounter Summary ---
Author Organization [employer] Address 75 [facility] 7t [place] [address] Care Team Providers Care School Supervisor Name Role Phone Macie Link DO Primary Care Provider [phone] [phone] Flor Clark PharmD Unavailable [phone] Reason for Visit * Reason Comments Med Refill Encounter Details Date Type Department Care Team ([facility] st Contact Info) Description 08/22/[address] [facility] [address] [place] [address] Macie Link DO [address] [place], [place] [phone] Chronic neck pain; Anxiety Social History Tobacco [...] housing situation today? I have erendira hauser 03/14/[address] you li ve. Do you have problems with any of the following? None of the above 03/14/2023 Food Insecurity Answer Date Recorded Within the past 12 months, y ou worried that your food would run out before you got money to buy more: Never True 03/14/2023 Within the past 12 months,th e food you bought just didn't last and you didn't have enough money to get more: Never True Transportation Answer Date Recorded In the past 12 months, has l ack of transportation kept you from medical appts, meetings, work or from getting things needed for daily living? No 03/14/2023 Utilities Answer Date Recorded In the past 12 months, has t he electric, gas, oil or water company threatened to shut off services in your home? No 03/14/2023 Depression Answer Date Recorded Patient Health Questionnaire-2 [...] Description 07/03/2024 1:00 PM EST Medication Management [facility] [address] [place] [address] Flor Clark PharmD [address] [place] [address] 07/05/2024 2:00 PM EST Office Visit [facility] ADULT DENTAL [address] [place] [address] Karmen Bustamante DDS [address] [place] [address] 09/13/2024 9:00 AM EDT Clinical Support [facility] [address] [place] [address] April Murrell, PADILLA 09/24/2024 3:00 PM EDT Office Visit [facility] ADULT DENTAL [address] [place] [address] Trina Arrieta documented as of this encounter [...] documented as of this encounter Care Teams School Supervisor Relationship Specialty Start Date End Date Macie Link DO [address] [place] [address] PCP - General Family Medicine 05/30/18 Flor Clark, Jaspreet [address] [place] [address] Pharmacist Internal Medicine 08/18/23 documented as of this encounter
--- OUTSIDE RECORDS SUMMARY | 2024-06-19 17:45 | XMS_ITS | Encounter Summary ---
Author Organization [employer] Address [address] [facility] [address] 7t [place] [address] Care Team Providers Care Vp Software Name Role Phone Macie Link DO Primary Care Provider [phone] [phone] Flor Clark PharmD Unavailable [phone] Reason for Visit * Reason Onset Date Comments Med Refill 05/24/2024 Encounter Details Date Type Department Care Team (Late st Contact Info) Description 05/24/[address] [facility] MEDICINE [address] [place] [address] Macie Link DO 230 [place] [address] Pericardial effusion Social History Tobacco Use Types Packs/Day Years [...] as of this encounter Miscellaneous Notes * Addendum Note - Sam Sams RN - 05/24/2024 11:51 AM ESTAddended by: SAM SAMS on: 05/24/2024 11:51 AM Modules accepted: Orders * Telephone Encounter - Sam Sams RN - 05/24/2024 11:45 AM EST TC placed to patient [phone] in regards to below message. Patient reports the Zyrtec medication is not working for him and he would like to switch back to loratidine. Patient advised he cannot be on loratidine d/t being on dialysis (which is why medication was changed-see TC 01/2024). Patient reports he only has 3 pills of zyrtec left because he has been taking 1 pill instead of 1/2 tab. Patient reports even with 1 pill the effects are not the same. RN called [facility] pharmacy to inquire if patient can obtain an early refill. RN was informed patient was given a 90 day supply on 04/02/24 and isnot due for more until 06/2024. RN was informed patient will need to purchase Zyrtec OTC until 06/2024. Patient informed of information and reports he will monitor his allergy s/s and if needed will purchase OTC. In regards to colchicine 0.6mg, patient last obtained medication on 02/07/24 for a 90 day supply (norefills remaining). RN will pend medication to provider. * Telephone Encounter - Veronika Fulton - 05/24/2024 11:13 AM EST Pt walked in requesting that pcp send refill for loratadine allergy med. Pt also needs refill on colchaine 0.6mg documented in this encounter Plan of Treatment Upcoming Encounters Date Type Department Care Team (Late st Contact Info) Description 07/03/2024 1:00 PM EST Medication Management [address] [address] Flor Clark PharmD [address] [place] [address] 07/05/2024 2:00 PM EST Office Visit [facility] ADULT DENTAL [address] [place] [address] Karmen Bustamante DDS [address] [place] [address] 09/13/2024 9:00 AM EDT Clinical Support [facility] MEDICINE [address] [place] [address] April Murrell, PADILLA 09/24/2024 3:00 PM EDT Office Visit [facility] ADULT DENTAL [address] [place] [address] Trina Arrieta documented as of this encounter [...] as of this encounter Visit Diagnoses Diagnosis Pericardial effusion Unspecified disease of pericardium documented in this encounter Additional Health Concerns Assessment Noted Time PHQ-9 Depression Total Score: 5 12/20/19 24 9:37 AM EDT documented as of this encounter Care Teams Vp Software Relationship Specialty Start Date End Date Macie Link DO [address] [place] [address] PCP - General Family Medicine 05/30/18 Flor Clark PharmD [address] [place] [address] Pharmacist Internal Medicine 08/18/23 documented as of this encounter
--- OUTSIDE RECORDS SUMMARY | 2024-06-19 17:45 | XMS_ITS | Encounter Summary ---
Author Organization [employer] Address 75 [facility] 7t [place] [address] Care Team Providers Care Sewer Pipe Sorter Name Role Phone Macie Link DO Primary Care Provider [phone] [phone] Flor Clark PharmD Unavailable [phone] Reason for Visit * Reason Comments Med Refill Encounter Details Date Type Department Care Team ([facility] st Contact Info) Description 03/29/2024 Refill [facility] [address] [place] [address] Macie Link DO [address] [place] [address] Chronic neck pain Social History Tobacco Use [...] Description 07/03/2024 1:00 PM EST Medication Management [facility] [address] [place] [address] Flor Clark PharmD [address] [place] [address] 07/05/2024 2:00 PM EST Office Visit [facility] ADULT DENTAL [address] [place] [address] Karmen Bustamante DDS [address] [place] [address] 09/13/2024 9:00 AM EDT Clinical Support [facility] [address] [place] [address] April Murrell, RN 09/24/2024 3:00 PM EDT Office Visit [facility] ADULT DENTAL [address] [place] [address] Trina Arrieta documented as of this encounter [...] documented as of this encounter Care Teams Sewer Pipe Sorter Relationship Specialty Start Date End Date Macie Link DO [address] [place] [address] PCP - General Family Medicine 05/30/18 Flor Clark, Jaspreet [address] [place] [address] Pharmacist Internal Medicine 08/18/23 documented as of this encounter
--- OUTSIDE RECORDS SUMMARY | 2024-06-19 17:45 | XMS_ITS | Encounter Summary ---
Author Organization [employer] Address 75 [facility] 7t [place] [address] Care Team Providers Care Log Cutter Name Role Phone Macie Link DO Primary Care Provider [phone] [phone] Flor Clark PharmD Unavailable [phone] Reason for Visit * Reason Comments Med Refill Encounter Details Date Type Department Care Team ([facility] st Contact Info) Description 03/05/2024 Refill [facility] MED[facility]INE [address] [place] [address] Macie Link DO [address] [place] [address] Seasonal allergic rhinitis, unspecified trigger Social History Tobacco Use Types Packs/Day Years [...] Description 07/03/2024 1:00 PM EST Medication Management [facility] [address] [place] [address] Flor Clark, PharmD [address] [place] [address] 07/05/2024 2:00 PM EST Office Visit [facility] ADULT DENTAL [address] [place] [address] Karmen Bustamante DDS [address] [place] [address] 09/13/2024 9:00 AM EDT Clinical Support [facility] [address] [place] [address] April Murrell, RN 09/24/2024 3:00 PM EDT Office Visit [facility] ADULT DENTAL [address] [place] [address] Trina Arrieta documented as of this encounter [...] as of this encounter Visit Diagnoses Diagnosis Seasonal allergic rhinitis, unspecified trigger documented in this encounter Additional Health Concerns Assessment Noted Time PHQ-9 Depression Total Score: 5 12/20/19 24 9:37 AM EDT documented as of this encounter Care Teams Log Cutter Relationship Specialty Start Date End Date Macie Link DO [address] [place] [address] PCP - General Family Medicine 05/30/18 Flor Clark, Jaspreet [address] [place] [address] Pharmacist Internal Medicine 08/18/23 documented as of this encounter
--- OUTSIDE RECORDS SUMMARY | 2024-06-19 17:45 | XMS_ITS | Encounter Summary ---
Author Organization [employer] Address 75 [facility] 7t [place] [address] Care Team Providers Care Cow Trimmer Name Role Phone Macie Link DO Primary Care Provider [phone] Flor Clark PharmD Unavailable [phone] Reason for Visit * Reason Comments Med Refill Encounter Details Date Type Department Care Team ([facility] st Contact Info) Description 05/04/2024 Refill [facility] [address] [place] [address] Macie Link DO [address] [place] [address] Hypothyroidism, unspecified type; Chronic GERD Social History Tobacco Use Types Packs/Day Years [...] Description 07/03/2024 1:00 PM EST Medication Management [facility] [address] [place] [address] Flor Clark, PharmD [address] [place] [address] 07/05/2024 2:00 PM EST Office Visit [facility] ADULT DENTAL [address] [place] [address] Karmen Bustamante DDS [address] [place] [address] 09/13/2024 9:00 AM EDT Clinical Support [facility] [address] [place] [address] April Murrell, RN 09/24/2024 3:00 PM EDT Office Visit [facility] ADULT DENTAL [address] [place] [address] Trina Arrieta documented as of this encounter [...] as of this encounter Visit Diagnoses Diagnosis Hypothyroidism, unspecified type Chronic GERD documented in this encounter Additional Health Concerns Assessment Noted Time PHQ-9 Depression Total Score: 5 12/20/19 24 9:37 AM EDT documented as of this encounter Care Teams Cow Trimmer Relationship Specialty Start Date End Date Macie Link DO 230 [place] [address] PCP - General Family Medicine 05/30/18 Flor Clark, Jaspreet [address] [place] [address] Pharmacist Internal Medicine 08/18/23 documented as of this encounter
--- OUTSIDE RECORDS SUMMARY | 2024-06-19 17:45 | XMS_ITS | Encounter Summary ---
Author Organization [employer] Address [address] [facility] [address] 7t [place] [address] Care Team Providers Care Library Supervisor Name Role Phone Macie Link DO Primary Care Provider [phone] [phone] Flor Clark PharmD Unavailable [phone] Reason for Visit * Reason Onset Date Comments Med Refill 05/24/2024 Encounter Details Date Type Department Care Team (Late st Contact Info) Description 05/24/[address] [facility] MEDICINE [address] [place] [address] Macie Link DO [address] [place] [address] Anxiety; Chronic neck pain Social History Tobacco [...] encounter Miscellaneous Notes * Addendum Note - Nat Murrell RN - 05/25/2024 8:51 AM ESTAddended by: NAT MURRELL on: 05/25/2024 08:51 AM Modules accepted: Orders * Telephone Encounter - Veronika Fulton - 05/24/2024 11:24 AM EST Pt walked in requesting refill on ambien, clonazepam and percocet. documented in this encounter Plan of Treatment Upcoming Encounters Date Type Department Care Team (Late st Contact Info) Description 07/03/2024 1:00 PM EST Medication Management [facility] MEDICINE [address] [place] [address] Flor Clark, PharmD [address] [place] [address] 07/05/2024 2:00 PM EST Office Visit [facility] ADULT DENTAL [address] [place] [address] Karmen Bustamante DDS [address] [place] [address] 09/13/2024 9:00 AM EDT Clinical Support [facility] MEDICINE [address] [place], [place] [phone] Nat Murrell RN 09/24/2024 3:00 PM EDT Office Visit [facility] ADULT DENTAL [address] [place] [address] Trina Arrieta documented as of this encounter [...] documented as of this encounter Care Teams Library Supervisor Relationship Specialty Start Date End Date Macie Link DO [address] [place] [address] PCP - General Family Medicine 05/30/18 Flor Clark PharmD [address] [place] [address] Pharmacist Internal Medicine 08/18/23 documented as of this encounter
--- OUTSIDE RECORDS SUMMARY | 2024-06-19 17:45 | XMS_ITS | Encounter Summary ---
Author Organization [employer] Address [address] [facility] [address] 7t [place] [address] Care Team Providers Care Stock Handler Floorperson Name Role Phone ArcadioMacie smith Primary Care Provider [phone] Flor Clark PharmD Unavailable [phone] Reason for Visit * Reason Onset Date Comments Recommend MICROBIOLOGICAL LAB TECHNICIAN Tier 2 06/19/2024 Encounter Details Date Type Department Care Team ([facility] st Contact Info) Description 06/19/[address] [facility] MEDICINE [address] [place] [address] April Murrell, PADILLA Recommend MICROBIOLOGICAL LAB TECHNICIAN Tier 2 Social History Tobacco Use Types Packs/Day Years [...] Telephone Encounter - April Murrell RN - 06/19/2024 7:37 AM EST What MICROBIOLOGICAL LAB TECHNICIAN Tier would you like this patient to be? I recommend Tier 2, please let me know if you agree or would rather patient be in another MICROBIOLOGICAL LAB TECHNICIAN Tier. Tier 1 = HIGH RISK, Monthly MICROBIOLOGICAL LAB TECHNICIAN visits Tier 2 = MODerate RISK, Q3 Month visits Tier 3 = LOW RISK = Q4-6 month visits documented in this encounter Plan of Treatment Upcoming Encounters Date Type Department Care Team (Late st Contact Info) Description 07/03/2024 1:00 PM EST Medication Management [facility] MEDICINE [address] [place] [address] Flor Clark, PharmD [address] [place] [address] 07/05/2024 2:00 PM EST Office Visit [facility] ADULT DENTAL [address] [place] [address] Karmen Bustamante DDS [address] [place] [address] 09/13/2024 9:00 AM EDT Clinical Support [facility] MEDICINE [address] [place] [address] April Murrell RN 09/24/2024 3:00 PM EDT Office Visit [facility] ADULT DENTAL [address] [place] [address] Trina Arrieta documented as of this encounter Goals Goal Patient Goal Type Associated Problems Recent Progress Patient-Stated? Author Hemoglobin A1c < 7 Result Component 7.4( 5 2:10 PM EST) No Flor Clark PharmD [...] documented as of this encounter Care Teams Stock Handler Floorperson Relationship Specialty Start Date End Date Macie Link DO [address] [place] [address] PCP - General Family Medicine 05/30/18 Flor Clark PharmD [address] [place] [address] Pharmacist Internal Medicine 08/18/23 documented as of this encounter
--- OUTSIDE RECORDS SUMMARY | 2024-06-19 17:45 | XMS_ITS | Encounter Summary ---
Author Organization [employer] Address [address] [facility] [address] 7t [place] [address] Care Team Providers Care Rod Buster Name Role Phone FaribaMacie Primary Care Provider + [phone] Flor Clark PharmD Unavailable [phone] Encounter Details Date Type Department Care Team (Latest Contact Info) Description 06/19/2024 Travel Social History Tobacco Use Types Packs/Day Years [...] Description 07/03/2024 1:00 PM EST Medication Management [facility] MEDICINE [address] [place] [address] Flor Clark PharmD [address] [place] [address] 07/05/2024 2:00 PM EST Office Visit [facility] ADULT DENTAL [address] [place] [address] Karmen Bustamante, DDS [address] [place] [address] 09/13/2024 9:00 AM EDT Clinical Support [address] [address] April Murrell, RN 09/24/2024 3:00 PM EDT Office Visit [facility] ADULT DENTAL [address] [place] [address] Trina Arrieta documented as of this encounter [...] as directed Result Component No Flor Clark, PharmD Note: Use CGM, ensuring sensor is [...] documented as of this encounter Care Teams Rod Buster Relationship Specialty Start Date End Date Macie Link DO [address] [place] [address] PCP - General Family Medicine 05/30/18 Flor Clark PharmD [address] [place] [address] Pharmacist Internal Medicine 08/18/23 documented as of this encounter
--- OUTSIDE RECORDS SUMMARY | 2024-06-19 17:45 | XMS_ITS | Encounter Summary ---
Author Organization [employer] Address [address] [facility] [address] 7t [place] [address] Care Team Providers Care Corporate Event Planner Name Role Phone Macie Link DO Primary Care Provider [phone] Flor Clark PharmD Unavailable [phone] Encounter Details Date Type Department Care Team (Late st Contact Info) Description 09/09/2023 Orders Only [facility] MEDICINE [address] [place] [address] ProviderProsper MD Social History Tobacco Use Types Packs/Day Years [...] Description 07/03/2024 1:00 PM EST Medication Management [address] [address] Flor Clark PharmD [address] [place] [address] 07/05/2024 2:00 PM EST Office Visit [facility] ADULT DENTAL [address] [place] [address] Hancock-Headley, Karmen, DDS [address] [place] [address] 09/13/2024 9:00 AM EDT Clinical Support [address] [address] April Murrell RN 09/24/2024 3:00 PM EDT Office Visit [facility] ADULT DENTAL [address] [place] [address] Trina Arrieta documented as of this encounter [...] Procedure Name Priority Date/Time Associated Diagnosis Comments HM COLONOSCOPY Routine 02/23/2022 7:37 AM EDT HM COLONOSCOPY Routine 02/25/2016 7:46 AM EDT documented in this encounter Results * Hm Colonoscopy (02/23/2022 7:37 AM EDT) us Historical Provider HEALTH MAINTENANCE Final Result * Hm Colonoscopy (02/25/2016 7:46 AM EDT) us Historical Provider HEALTH MAINTENANCE Final Result documented in this encounter Visit Diagnoses Not on filedocumented in this encounter Additional Health Concerns Assessment Noted Time PHQ-9 Depression Total Score: 13 024 9:15 AM EST documented as of this encounter Care Teams Corporate Event Planner Relationship Specialty Start Date End Date Macie Link DO 230 [place] [address] PCP - General Family Medicine 05/30/18 Flor Clark PharmD [address] [place] [address] Pharmacist Internal Medicine 08/18/23 documented as of this encounter
--- OUTSIDE RECORDS SUMMARY | 2024-06-19 17:45 | XMS_ITS | Encounter Summary ---
Author Organization [employer] Address 75 [facility] 7t [place] [address] Care Team Providers Care Clip Loading Machine Feeder Name Role Phone Macie Link DO Primary Care Provider [phone] Flor Clark PharmD Unavailable [phone] Reason for Visit * Reason Comments Med Refill Encounter Details Date Type Department Care Team (Late st Contact Info) Description 12/12/2023 Refill [facility] [address] [place] [address] Macie Link DO [address] [place] [address] Anxiety; Chronic neck pain Social History Tobacco [...] 1:00 PM EST Medication Management [facility] [address] [place] [address] Flor Clark PharmD [address] [place] [address] 07/05/2024 2:00 PM EST Office Visit [facility] ADULT DENTAL [address] [place] [address] Karmen Bustamante DDS [address] [place] [address] 09/13/2024 9:00 AM EDT Clinical Support [facility] [address] [place] [address] April Murrell, PADILLA 09/24/2024 3:00 PM EDT Office Visit [facility] ADULT DENTAL [address] [place] [address] Trina Arrieta documented as of this encounter [...] documented as of this encounter Care Teams Clip Loading Machine Feeder Relationship Specialty Start Date End Date Macie Link DO [address] [place] [address] PCP - General Family Medicine 05/30/18 Flor Clark, Jaspreet [address] [place] [address] Pharmacist Internal Medicine 08/18/23 documented as of this encounter
--- OUTSIDE RECORDS SUMMARY | 2024-06-19 17:45 | XMS_ITS | Encounter Summary ---
Author Organization [employer] Address [address] [facility] 7t [place] [address] Care Team Providers Care Tactical Intelligence Officer Name Role Phone Macie Link DO Primary Care Provider [phone] Flor Clark PharmD Unavailable [phone] Reason for Visit * Reason Comments Med Refill Encounter Details Date Type Department Care Team ([facility] st Contact Info) Description 03/30/2024 Refill [facility]INE [address] [place] [address] Macie Link DO 230 [place] [address] Seasonal allergic rhinitis, unspecified trigger Social History [...] Description 07/03/2024 1:00 PM EST Medication Management [facility] [address] [place] [address] Flor Clark, PharmD [address] [place] [address] 07/05/2024 2:00 PM EST Office Visit [facility] ADULT DENTAL [address] [place] [address] Karmen Bustamante DDS [address] [place] [address] 09/13/2024 9:00 AM EDT Clinical Support [facility] [address] [place] [address] April Murrell, RN 09/24/2024 3:00 PM EDT Office Visit [facility] ADULT DENTAL [address] [place] [address] Trina Arrieta documented as of this encounter [...] documented as of this encounter Care Teams Tactical Intelligence Officer Relationship Specialty Start Date End Date Macie Link DO 230 [place] [address] PCP - General Family Medicine 05/30/18 Flor Clark, Jaspreet [address] [place] [address] Pharmacist Internal Medicine 08/18/23 documented as of this encounter
--- OUTSIDE RECORDS SUMMARY | 2024-06-19 17:45 | XMS_ITS | Encounter Summary ---
Author Organization [employer] Address [address] [facility] [address] 7t [place] [address] Care Team Providers Care Junior Electrical Engineer Name Role Phone FaribaMacie Primary Care Provider + [phone] Flor Clark PharmD Unavailable [phone] Encounter Details Date Type Department Care Team ([facility] st Contact Info) Description 05/21/2024 Refill [facility] MED[facility]INE [address] [place] [address] AnselmoiaFlor, PharmD [address] [place] [address] Social History Tobacco Use Types Packs/Day Years [...] encounter Miscellaneous Notes * Telephone Encounter - Flor Clark PharmD - 05/21/2024 11:37 AM EST Refills requested by pharmacy. Last LFTs WNL 11/2023. Patient has upcoming CDTM follow up 05/2024. documented in this encounter Plan of Treatment Upcoming Encounters Date Type Department Care Team (Late st Contact Info) Description 07/03/2024 1:00 PM EST Medication Management [facility] [address] [place] [address] Flor Clark PharmD [address] [place] [address] 07/05/2024 2:00 PM EST Office Visit [facility] ADULT DENTAL [address] [place] [address] Karmen Bustamante DDS [address] [place] [address] 09/13/2024 9:00 AM EDT Clinical Support [facility] [address] [place] [address] April Murrell RN 09/24/2024 3:00 PM EDT Office Visit [facility] ADULT DENTAL [address] [place] [address] Trina Arrieta documented as of this encounter Goals Goal Patient Goal Type Associated Problems Recent Progress Patient-Stated? Author Hemoglobin A1c < 7 Result Component 7.4( 5 2:10 PM EST) No Flor Clark, Jaspreet Note: A1c value is falsely low d/t dialysis. Ordered fructosamine value 08/18/23 and once resulted will use to calculate a more accurate A1c Record your blood sugar as directed Result Component No Flor Clakr PharmD Note: Use CGM, ensuring sensor is [...] documented as of this encounter Care Teams Junior Electrical Engineer Relationship Specialty Start Date End Date Macie Link DO 230 [place] [address] PCP - General Family Medicine 05/30/18 Flor Clark PharmD [address] [place] [address] Pharmacist Internal Medicine 08/18/23 documented as of this encounter
--- OUTSIDE RECORDS SUMMARY | 2024-06-19 17:45 | XMS_ITS | Encounter Summary ---
Author Organization [employer] Address [address] [facility] [address] 7t [place] [address] Care Team Providers Care Shop Service Technician Name Role Phone FaribaCarissaMacie Primary Care Provider + [phone] Flor Clark PharmD Unavailable [phone] Reason for Visit * Reason Onset Date Comments BPI & CLAIRE Scoring 06/19/2024 Abnormal UTOX 06/19/2024 Encounter Details Date Type Department Care Team (Late st Contact Info) Description 06/19/2024 Telephone [facility] MED[facility]INE [address] [place] [address] April Murrell RN BPI & CLAIRE Scoring; Abnormal UTOX Social History Tobacco Use Types Packs/Day Years [...] Encounter - April Murrell RN - 06/19/2024 9:29 AM EST Pt had MAT LINKER RV today UTOX Neg BZO, sent out for confirmation. BPI & CLAIRE-7 updated today. BPI Pain severity score of 8, activity interference score of 7.9. Previous BPI completed 11/03/23 with pain severity score of 8, activity interference score of 8. CLAIRE-7 pt scored a 12, previous CLAIRE-7 completed 11/03/23 with a score of 16. documented in this encounter Plan of Treatment Upcoming Encounters Date Type Department Care Team (Late st Contact Info) Description 07/03/2024 1:00 PM EST Medication Management [facility] MEDICINE [address] [place] [address] Flor Clark, PharmD 230 [place] [address] 07/05/2024 2:00 PM EST Office Visit [facility] ADULT DENTAL [address] [place] [address] Karmen Bustamante, DDS [address] [place] [address] 09/13/2024 9:00 AM EDT Clinical Support [facility] [address] [place] [address] April Murrell, RN 09/24/2024 3:00 PM EDT Office Visit [facility] ADULT DENTAL [address] [place] [address] Trina Arrieta documented as of this encounter [...] documented as of this encounter Care Teams Shop Service Technician Relationship Specialty Start Date End Date Macie Link DO [address] [place] [address] PCP - General Family Medicine 05/30/18 Flor Clark PharmD 230 [place] [address] Pharmacist Internal Medicine 08/18/23 documented as of this encounter
--- OUTSIDE RECORDS SUMMARY | 2024-06-19 17:46 | XMS_ITS | Encounter Summary ---
Author Organization [employer] Address [address] [facility] 7t [place] [address] Care Team Providers Care Respiratory Care Faculty Name Role Phone Fariba Macie Primary Care Provider Flor Clark PharmD Unavailable [phone] Encounter Details Date Type Department Care Team (Late st Contact Info) Description 08/13/2022 Orders Only [facility] PEDS [address] [place], [place] [phone] Cayla Sandoval MD [address] [place] [address] Type 2 diabetes mellitus with chronic kidney disease on chronic dialysis, with long-term current use of insulin ([facility]) (Primary Dx) Social History Tobacco Use Types Packs/Day Years Used Date Smoking Tobacco: Never Passive Smoke Exposure: Never Smokeless Tobacco: Never Alcohol Use Standard Drinks/Week Comments Never 0 (1 standard drink = 0.6 oz pur e alcohol) Depression Answer Date Recorded Patient Health Questionnaire-9 Score 2 07/06/2022 Depression Answer Date Recorded Patient Health Questionnaire-2 Score 2 07/06/2022 Sex and Gender Information Value Date Recorded Sex Assigned at Male 03/29/2022 10:15 AM EDT Legal Sex Male 10:15 AM EDT Gender Identity Male 03/29/2022 10:15 AM EDT Sexual Orientation Choose not to disclose 2021 10:15 AM EDT documented as of this encounter Progress Notes * Cayla Sandoval MD - 08/13/2022 4:58 PM EDT dex documented in this encounter Plan of Treatment Upcoming Encounters Date Type Department Care Team (Late st Contact Info) Description 07/03/2024 1:00 PM EST Medication Management [facility] [address] [place] [address] Flor Clark PharmD [address] [place] [address] 07/05/2024 2:00 PM EST Office Visit [facility] ADULT DENTAL [address] [place] [address] Karmen Bustamante DDS [address] [place] [address] 09/13/2024 9:00 AM EDT Clinical Support [facility] [address] [place] [address] April Murrell, RN 09/24/2024 3:00 PM EDT Office Visit [facility] ADULT DENTAL [address] [place] [address] Trina Arrieta documented as of this encounter Visit Diagnoses Diagnosis Type 2 diabetes mellitus with chronic kidney disease on chronic dialysis, with long-term current use of insulin ([facility])- Primary documented in this encounter Additional Health Concerns Assessment Noted Time PHQ-9 Depression Total Score: 2 07/06/19 23 9:23 AM EST documented as of this encounter Care Teams Respiratory Care Faculty Relationship Specialty Start Date End Date Macie Link DO [address] [place] [address] PCP - General Family Medicine 05/30/18 Flor Clark PharmD [address] [place] [address] Pharmacist Internal Medicine 08/18/23 documented as of this encounter
--- OUTSIDE RECORDS SUMMARY | 2024-06-19 17:46 | XMS_ITS | Encounter Summary ---
Author Organization [facility] Address [address] [facility] 7t [place] [address] Care Team Providers Care Home Care And Home Health Aides Teacher Name Role Phone Macie Link DO Primary Care Provider Flor Clark PharmD Unavailable [phone] Reason for Visit * Reason Onset Date Comments Nurse Triage 01/07/2023 Encounter Details Date Type Department Care Team ([facility] st Contact Info) Description 01/07/2023 Telephone [facility] 230 [place] [address] Macie Link DO 230 [place] [address] Nurse Triage Social History Tobacco Use Types Packs/Day Years [...] encounter Miscellaneous Notes * Telephone Encounter - Mayte Ibarra RN - 01/07/2023 4:31 PM EDT Pt called regarding earlier message. Pt blood sugar is still high. Pt was given a sliding scale order from last Ed visit. Advised to follow directions for sliding scale as given from ED and if Pt begins to have symptoms or Blood sugar continues to be high return to the ED. agrees with this advise. * Telephone Encounter - Mayte Ibarra RN - 01/07/2023 1:10 PM EDT Triage call , Pt , ANA Ramsay, reports Pt has had blood sugar of 312 last night. This Am before breakfast was 279. Pt remains asymptomatic . Pt did have dialysis done today and blood sugar nowis 152. Pt is going to have procedure done and cinder snapper dc'd ASA and started amiodorone 400mg bid and carvidilol 25mg. Sobia is advised to seek evaluation in Ed if blood sugar gets high overthe weekend. Advised that this information will be sent to provider and nursing team. Sobia agreed with this disposition and home care advise. Protocol Used: Diabetes - High Blood Sugar (Adult) Protocol-Based Disposition: Discuss with PCP and Callback by Nurse within 1 Hour Video visit not offered Positive Triage Question: * Blood glucose > 300 mg/dL (16.7 mmol/L) AND two or more times in a row * All higher-acuity triage questions were negative Care Advice Discussed: * High Blood Sugar (Hyperglycemia) * Continue Insulin * Continue Diabetes Pills * Measure and Record Your Blood Glucose * Daily Blood Glucose Goals * Reasons To Call Back - Blood glucose over 300 mg/dL (16.7 mmol/L), two or more times in a row. - Urine ketones become moderate or large (or more than 1+); if you check blood ketones, blood ketone test is over 1.4 mmol/L - Vomiting lasting over 4 hours or unable to drink any fluids - Rapid breathing occurs - You have more questions - You become worse * Telephone Encounter - Oziel Ramirez - 01/07/2023 12:51 PM EDT Symptom: High Blood Sugar - Caller Reports Outcome: Talk to a nurse or provider within 15 minutes Reason: Known blood sugar above 300 The caller accepted this outcome Please contact at [phone] documented in this encounter Plan of Treatment Upcoming Encounters Date Type Department Care Team (Late st Contact Info) Description 07/03/2024 1:00 PM EST Medication Management [facility] MED[facility]INE [address] [place] [phone] Flor Clark PharmD [address] [place] [address] 07/05/2024 2:00 PM EST Office Visit [facility] ADULT DENTAL [address] [place] [address] Karmen Bustamante DDS [address] [place] [address] 09/13/2024 9:00 AM EDT Clinical Support [facility] [address] [place] [address] pAril Murrell, RN 09/24/2024 3:00 PM EDT Office Visit [facility] ADULT DENTAL [address] [place] [address] Trina Arrieta documented as of this encounter Visit Diagnoses Not on filedocumented in this encounter Additional Health Concerns Assessment Noted Time PHQ-9 Depression Total Score: 2 07/06/19 23 9:23 AM EST documented as of this encounter Care Teams Home Care And Home Health Aides Teacher Relationship Specialty Start Date End Date Macie Link DO [address] [place] [address] PCP - General Family Medicine 05/30/18 Flor Clark PharmD [address] [place] [address] Pharmacist Internal Medicine 08/18/23 documented as of this encounter
--- OUTSIDE RECORDS SUMMARY | 2024-06-19 17:46 | XMS_ITS | Encounter Summary ---
Author Organization [facility] Address [address] [facility] 7t [place] [address] Care Team Providers Care Icu Tech Name Role Phone Macie Link DO Primary Care Provider Flor Clark PharmD Unavailable Reason for Visit * Reason Comments Med Refill Encounter Details Date Type Department Care Team (Late st Contact Info) Description 01/13/2023 Refill [facility] MEDICINE [address] [place] [address] Macie Link DO 230 [place] [address] Chronic neck pain Social History Tobacco Use [...] Description 07/03/2024 1:00 PM EST Medication Management [facility] MEDICINE [address] [place] [address] Puia, Flor, PharmD [address] [place] [address] 07/05/2024 2:00 PM EST Office Visit [facility] ADULT DENTAL [address] [place] [address] Hancock-Karmen Headley, DDS [address] [place], [place] [phone] 09/13/2024 9:00 AM EDT Clinical Support [facility] MEDICINE [address] [place] [address] [phone] April Murrell, RN 09/24/2024 3:00 PM EDT Office Visit [facility] ADULT DENTAL [address] [place] [address] [phone] Trina Arrieta documented as of this encounter Visit Diagnoses Diagnosis Chronic neck pain Cervicalgia documented in this encounter Additional Health Concerns Assessment Noted Time PHQ-9 Depression Total Score: 2 07/06/19 23 9:23 AM EST documented as of this encounter Care Teams Icu Tech Relationship Specialty Start Date End Date Macie iLnk DO [address] [place] [address] [phone] PCP - General Family Medicine 05/30/18 Flor Clark PharmD [address] [place] [address] [phone] Pharmacist Internal Medicine 08/18/23 documented as of this encounter
--- OUTSIDE RECORDS SUMMARY | 2024-06-19 17:46 | XMS_ITS | Encounter Summary ---
Author Organization [employer] Address [address] [facility] [address] 7t [place] [address] Care Team Providers Care School Administrator Name Role Phone Macie Link DO Primary Care Provider [phone] Flor Clark PharmD Unavailable [phone] Reason for Visit * Reason Comments Med Refill Encounter Details Date Type Department Care Team ([facility] st Contact Info) Description 03/11/2023 Refill [facility] [address] [place] [address] Macie Link DO [address] [place] [address] Chronic neck pain; Anxiety Social History Tobacco Use Types Packs/Day Years Used Date Smoking Tobacco: Never Passive Smoke Exposure: Never Smokeless Tobacco: Never Alcohol Use Standard Drinks/Week Comments Never 0 (1 standard drink = 0.6 oz pur e alcohol) Depression Answer Date Recorded Patient Health Questionnaire-9 Score 2 07/06/2022 Housing Stability Answer Date Recorded What is [...] Description 07/03/2024 1:00 PM EST Medication Management [facility] MED[facility]INE [address] [place] [address] Flor Clark PharmD [address] [place] [address] 07/05/2024 2:00 PM EST Office Visit [facility] ADULT DENTAL [address] [place] [address] Karmen Bustamante DDS [address] [place] [address] 09/13/2024 9:00 AM EDT Clinical Support [address] [address] April Murrell, PADILLA 09/24/2024 3:00 PM EDT Office Visit [facility] ADULT DENTAL [address] [place] [address] Trina Arrieta documented as of this encounter Visit Diagnoses Diagnosis Chronic neck pain Cervicalgia Anxiety Anxiety state, unspecified documented in this encounter Additional Health Concerns Assessment Noted Time PHQ-9 Depression Total Score: 2 07/06/19 23 9:23 AM EST documented as of this encounter Care Teams School Administrator Relationship Specialty Start Date End Date Macie Link DO [address] [place] [address] PCP - General Family Medicine 05/30/18 Flor Clark, Jaspreet [address] [place] [address] Pharmacist Internal Medicine 08/18/23 documented as of this encounter
--- OUTSIDE RECORDS SUMMARY | 2024-06-19 17:46 | XMS_ITS | Encounter Summary ---
Author Organization [facility] Address [address] [facility] 7t [place] [address] Care Team Providers Care Electrician Outside Name Role Phone Macie Link DO Primary Care Provider Flor Clark PharmD Unavailable [phone] Reason for Visit * Reason Comments Med Refill Encounter Details Date Type Department Care Team ([facility] st Contact Info) Description 10/14/2022 Refill [facility] [address] [place] [address] Macie Link DO [address] [place] [address] Anxiety Social History Tobacco Use Types Packs/Day [...] not to disclose 2021 10:15 AM EDT COVID-19 Exposure Response Date Recorded In the last 10 days, have yo u been in contact with someone who was confirmed or suspected to have Coronavirus/COVID-19? No / Unsure 10/14/2022 2:05 PM EDT documented as of this encounter Plan of Treatment Upcoming Encounters Date Type Department Care Team (Late st Contact Info) Description 07/03/2024 1:00 PM EST Medication Management [facility] MEDICINE [address] [place] [address] [place] [address] 07/05/2024 2:00 PM EST Office Visit [facility] ADULT DENTAL [address] [place] [address] Hancock-Headley, Karmen, DDS [address] [place] [address] 09/13/2024 9:00 AM EDT Clinical Support [facility] MEDICINE [address] [place] [address] April Murrell, RN 09/24/2024 3:00 PM EDT Office Visit [facility] ADULT DENTAL [address] [place] [address] Trina Arrieta documented as of this encounter Visit Diagnoses Diagnosis Anxiety Anxiety state, unspecified documented in this encounter Additional Health Concerns Assessment Noted Time PHQ-9 Depression Total Score: 2 07/06/19 23 9:23 AM EST documented as of this encounter Care Teams Electrician Outside Relationship Specialty Start Date End Date Macie Link DO [address] [place] [address] PCP - General Family Medicine 05/30/18 Flor Clark PharmD [address] [place] [address] Pharmacist Internal Medicine 08/18/23 documented as of this encounter
--- OUTSIDE RECORDS SUMMARY | 2024-06-19 17:46 | XMS_ITS | Encounter Summary ---
Author Organization [facility] Address [address] [facility] 7t [place] [address] Care Team Providers Care Developer Analyst Name Role Phone Macie Link DO Primary Care Provider Flor Clark PharmD Unavailable [phone] Encounter Details Date Type Department Care Team (Late st Contact Info) Description 06/10/2022 Telephone [facility] MED[facility]INE [address] [place] [address] Macie Link DO [address] [place] [address] Social History Tobacco Use Types Packs/Day Years [...] PM EST Medication Management [facility] [address] [place] [address] AnselmoiaFlor, PharmD 230 [place] [address] 07/05/2024 2:00 PM EST Office Visit [facility] ADULT DENTAL [address] [place] [address] Karmen Bustamante, DDS [address] [place] [address] 09/13/2024 9:00 AM EDT Clinical Support [facility] MEDICINE [address] [place], [place] [phone] April Murrell, RN 09/24/2024 3:00 PM EDT Office Visit [facility] ADULT DENTAL [address] [place], [place] [phone] Trina Arrieta documented as of this encounter Visit Diagnoses Not on filedocumented in this encounter Care Teams Developer Analyst Relationship Specialty Start Date End Date Macie Link DO 230 [place], [place] [phone] PCP - General Family Medicine 05/30/18 Flor Clark PharmD [address] [place] [address] [phone] Pharmacist Internal Medicine 08/18/23 documented as of this encounter
--- OUTSIDE RECORDS SUMMARY | 2024-06-19 17:46 | XMS_ITS | Encounter Summary ---
Author Organization [employer] Address [address] [facility] 7t [place] [address] Care Team Providers Care Business Banking Officer Name Role Phone Fariba Macie LICEA Primary Care Provider PuFlor quinones PharmD Unavailable [phone] Encounter Details Date Type Department Care Team (Late st Contact Info) Description 06/16/2022 Orders Only [facility] MED [facility] PEDS [address] [place] [address] Macie Stiles LPN Social History Tobacco Use Types Packs/Day Years [...] Department Care Team (Late Contact Info) Description 07/03/2024 1:00 PM EST Medication Management [facility] MEDICINE [address] [place] [address] Puia, Flor, PharmD 230 [place] [address] 07/05/2024 2:00 PM EST Office Visit [facility] ADULT DENTAL [address] [place] [address] Hancock-HeadleyKarmen chauhan, DDS [address] [place] [address] 09/13/2024 9:00 AM EDT Clinical Support [facility] MEDICINE [address] [place], [place] [phone] April Murrell, RN 09/24/2024 3:00 PM EDT Office Visit [facility] ADULT DENTAL [address] [place] [address] Trina Arrieta documented as of this encounter Visit Diagnoses Not on filedocumented in this encounter Care Teams Business Banking Officer Relationship Specialty Start Date End Date Mcaie Link DO [address] [place] [address] PCP - General Family Medicine 05/30/18 Flor Clark PharmD [address] [place] [address] Pharmacist Internal Medicine 08/18/23 documented as of this encounter
--- OUTSIDE RECORDS SUMMARY | 2024-06-19 17:46 | XMS_ITS | Encounter Summary ---
Author Organization [facility] Address [address] [facility] 7t [place] [address] Care Team Providers Care Portable Machine Cutter Name Role Phone Macie Link DO Primary Care Provider Flor Clark PharmD Unavailable Encounter Details Date Type Department Care Team (Late st Contact Info) Description 07/27/2022 Abstract [facility] MED[facility]INE [address] [place] [address] Macie Link DO [address] [place] [address] Social History Tobacco Use Types Packs/Day Years Used Date Smoking Tobacco: Never Assessed Depression Answer Date Recorded Patient Health Questionnaire-9 [...] suspected to have Coronavirus/COVID-19? No / Unsure 07/06/2022 8:57 AM EST documented as of this encounter Plan of Treatment Upcoming Encounters Date Type Department Care Team (Late st Contact Info) Description 07/03/2024 1:00 PM EST Medication Management [facility] [address] [place] [address] Flor Clark PharmD [facility] [place] [address] 07/05/2024 2:00 PM EST Office Visit [facility] ADULT DENTAL [address] [place] [address] Hancock-Headley, Karmen, DDS [address] [place], [place] [phone] 09/13/2024 9:00 AM EDT Clinical Support [facility] [address] [place], [place] [phone] April Murrell, RN 09/24/2024 3:00 PM EDT Office Visit [facility] ADULT DENTAL [address] [place] [address] Trina Arrieta documented as of this encounter Visit Diagnoses Not on filedocumented in this encounter Additional Health Concerns Assessment Noted Time PHQ-9 Depression Total Score: 2 07/06/19 23 9:23 AM EST documented as of this encounter Care Teams Portable Machine Cutter Relationship Specialty Start Date End Date Macie Link DO [place], [place] [phone] PCP - General Family Medicine 05/30/18 Flor Clark PharmD [place], [place] [phone] Pharmacist Internal Medicine 08/18/23 documented as of this encounter
--- OUTSIDE RECORDS SUMMARY | 2024-06-19 17:46 | XMS_ITS | Encounter Summary ---
Author Organization [employer] Address [address] [facility] 7t [place] [address] Care Team Providers Care Outside Sales Account Executive Name Role Phone Macie Link DO Primary Care Provider Flor Clark PharmD Unavailable Reason for Visit * Reason Onset Date Comments r/s PE appt 06/15/2022 Encounter Details Date Type Department Care Team (Late st Contact Info) Description 06/15/2022 Telephone [facility] MED[facility]INE [address] [place] [address] Macie Link DO 230 [place] [address] r/s PE appt Social History Tobacco Use Types Packs/Day Years Used Date Smoking Tobacco: Never Assessed Sex and Gender Information Value Date Recorded Sex Assigned at Male 03/29/2022 10:15 AM EDT Legal Sex Male 10:15 AM EDT Gender Identity Male 03/29/2022 10:15 AM EDT Sexual Orientation Choose not to disclose 2021 10:15 AM EDT documented as of this encounter Miscellaneous Notes * Telephone Encounter - Oziel Ramirez - 06/15/2022 8:57 AM EST Tc from pt spouse radha requesting to r/s PE appt scheduled for 07/26/22 with PCP. Appt was cancelled. Please contact at [phone] documented in this encounter Plan of Treatment Upcoming Encounters Date Type Department Care Team (Late st Contact Info) Description 07/03/2024 1:00 PM EST Medication Management [facility] [address] [place] [address] Flor Clark PharmD [address] [place] [address] 07/05/2024 2:00 PM EST Office Visit [facility] ADULT DENTAL [address] [place] [address] Santi-Karmen Headley, DDS [address] [place] [address] 09/13/2024 9:00 AM EDT Clinical Support [address] [address] April Murrell, PADILLA 09/24/2024 3:00 PM EDT Office Visit [facility] ADULT DENTAL [address] [place] [address] Trina Arrieta documented as of this encounter Visit Diagnoses Not on filedocumented in this encounter Care Teams Outside Sales Account Executive Relationship Specialty Start Date End Date Macie Link DO [address] [place] [phone] PCP - General Family Medicine 05/30/18 Flor Clark PharmD [address] [place] [address] Pharmacist Internal Medicine 08/18/23 documented as of this encounter
--- OUTSIDE RECORDS SUMMARY | 2024-06-19 17:46 | XMS_ITS | Encounter Summary ---
Author Organization [employer] [facility] Address [address] [facility] 7t [place] [address] Care Team Providers Care Store Operations Associate Name Role Phone Macie Link DO Primary Care Provider Flor Clark PharmD Unavailable Reason for Visit * Reason Comments Med Refill Encounter Details Date Type Department Care Team (Late st Contact Info) Description 08/13/2022 Refill [facility] 230 [place] [address] Macie Link DO 230 [place] [address] Anxiety Social History Tobacco Use Types Packs/Day [...] EST Medication Management [facility] 230 [place] [address] Puia Flor, PharmD [address] [place] [address] 07/05/2024 2:00 PM EST Office Visit [facility] ADULT DENTAL 230 [place] [address] Karmen Bustamante, DDS 230 [place] [address] 09/13/2024 9:00 AM EDT Clinical Support [facility] [address] [place] [address] [phone] April Murrell, RN 09/24/2024 3:00 PM EDT Office Visit [facility] ADULT DENTAL [address] [place] [address] [phone] Trina Arrieta documented as of this encounter Visit Diagnoses Diagnosis Anxiety Anxiety state, unspecified documented in this encounter Additional Health Concerns Assessment Noted Time PHQ-9 Depression Total Score: 2 07/06/19 23 9:23 AM EST documented as of this encounter Care Teams Store Operations Associate Relationship Specialty Start Date End Date Macie Link DO [address] [place] [address] [phone] PCP - General Family Medicine 05/30/18 Flor Clark PharmD [address] [place] [address] [phone] Pharmacist Internal Medicine 08/18/23 documented as of this encounter
--- OUTSIDE RECORDS SUMMARY | 2024-06-19 17:46 | XMS_ITS | Encounter Summary ---
Author Organization [employer] Address [address] [facility] 7t [place] [address] Care Team Providers Care Refinery Operator Alkylation Name Role Phone ArcadioMacie smith Primary Care Provider [phone] Flor Clark PharmD Unavailable [phone] Reason for Visit * Reason Comments Med Refill Encounter Details Date Type Department Care Team (Late st Contact Info) Description 07/26/2023 Refill [facility] MEDICINE 230 [place] [address] Catherine Madera MD 230 [place] [address] Anxiety; Chronic neck pain Social History Tobacco [...] Description 07/03/2024 1:00 PM EST Medication Management [facility] MEDICINE [address] [place] [address] Flor Clark, PharmD [address] [place] [address] 07/05/2024 2:00 PM EST Office Visit [facility] ADULT DENTAL [address] [place] [address] Karmen Bustamante, DDS [address] [place] [address] 09/13/2024 9:00 AM EDT Clinical Support [facility] MEDICINE [address] [place] [address] April Murrell, RN 09/24/2024 3:00 PM EDT Office Visit [facility] ADULT DENTAL [address] [place] [address] Trina Arrieta documented as of this encounter Visit Diagnoses Diagnosis Anxiety Anxiety state, unspecified Chronic neck pain Cervicalgia documented in this encounter Additional Health Concerns Assessment Noted Time PHQ-9 Depression Total Score: 13 024 9:15 AM EST documented as of this encounter Care Teams Refinery Operator Alkylation Relationship Specialty Start Date End Date Macie Link DO 230 [place] [address] PCP - General Family Medicine 05/30/18 Flor Clark PharmD 230 [place] [address] Pharmacist Internal Medicine 08/18/23 documented as of this encounter
--- OUTSIDE RECORDS SUMMARY | 2024-06-19 17:46 | XMS_ITS | Encounter Summary ---
Author Organization [employer] [facility] Address [address] [facility] 7t [place] [address] Care Team Providers Care Underwriting Operations Manager Name Role Phone Macie Link DO Primary Care Provider Flor Clark PharmD Unavailable [phone] Encounter Details Date Type Department Care Team (Late st Contact Info) Description 07/21/2022 Telephone [facility] MEDICINE [address] [place] [address] Macie Link DO [address] [place] [address] Social History Tobacco Use Types Packs/Day Years [...] Description 07/03/2024 1:00 PM EST Medication Management [facility] MEDICINE [address] [place] [address] Flor Clark PharmD [facility] [place] [address] 07/05/2024 2:00 PM EST Office Visit [facility] ADULT DENTAL 230 [place] [address] Hancock-Headley, Karmen, DDS [address] [place], [place] [phone] 09/13/2024 9:00 AM EDT Clinical Support [facility] MEDICINE 230 [place], [place] [phone] April Murrell, RN 09/24/2024 3:00 PM EDT Office Visit [facility] ADULT DENTAL [address] [place] [address] Trina Arrieta documented as of this encounter Visit Diagnoses Not on filedocumented in this encounter Additional Health Concerns Assessment Noted Time PHQ-9 Depression Total Score: 2 07/06/19 23 9:23 AM EST documented as of this encounter Care Teams Underwriting Operations Manager Relationship Specialty Start Date End Date Macie Link DO [place], [place] [phone] PCP - General Family Medicine 05/30/18 Flor Clark PharmD [place], [place] [phone] Pharmacist Internal Medicine 08/18/23 documented as of this encounter
--- OUTSIDE RECORDS SUMMARY | 2024-06-19 17:46 | XMS_ITS | Encounter Summary ---
Author Organization [employer] Address [address] [facility] 7t [place] [address] Care Team Providers Care Scrum Master Name Role Phone Macie Link DO Primary Care Provider [phone] Flor Clark PharmD Unavailable [phone] Reason for Visit * Reason Comments Med Refill Encounter Details Date Type Department Care Team (Late st Contact Info) Description 06/01/2023 Refill [facility] MEDICINE 230 [place] [address] Macie Link DO 230 [place], [place] [phone] Anxiety; Chronic neck pain Social History Tobacco [...] 1:00 PM EST Medication Management [facility] MEDICINE [address] [place] [address] Flor Clark, PharmD [address] [place] [address] 07/05/2024 2:00 PM EST Office Visit [facility] ADULT DENTAL [address] [place] [address] Karmen Bustamante, DDS [address] [place] [address] 09/13/2024 9:00 AM EDT Clinical Support [facility] MEDICINE [address] [place] [address] April Murrell, RN 09/24/2024 3:00 PM EDT Office Visit [facility] ADULT DENTAL [address] [place] [address] Trina Arrieta documented as of this encounter Visit Diagnoses Diagnosis Anxiety Anxiety state, unspecified Chronic neck pain Cervicalgia documented in this encounter Additional Health Concerns Assessment Noted Time PHQ-9 Depression Total Score: 13 024 9:15 AM EST documented as of this encounter Care Teams Scrum Master Relationship Specialty Start Date End Date Macie Link DO 230 [place] [address] PCP - General Family Medicine 05/30/18 Flor Clark PharmD [address] [place] [address] Pharmacist Internal Medicine 08/18/23 documented as of this encounter
--- OUTSIDE RECORDS SUMMARY | 2024-06-19 17:46 | XMS_ITS | Encounter Summary ---
Author Organization [employer] Address [address] [facility] 7t [place] [address] Care Team Providers Care Federal Court Of Appeals Law Clerk Name Role Phone Fariba Macie LICEA Primary Care Provider [phone] PuFlor quinones PharmD Unavailable [phone] Encounter Details Date Type Department Care Team (Late st Contact Info) Description 05/25/2022 Orders Only [facility] & PEDS [address] [place] [address] Macie Stiles LPN Social History Tobacco Use [...] Description 07/03/2024 1:00 PM EST Medication Management [facility] MEDICINE 230 [place] [address] Puia, Flor, PharmD 230 [place] [address] 07/05/2024 2:00 PM EST Office Visit [facility] ADULT DENTAL 230 [place] [address] Hancock-HeadleyKarmen chauhan, DDS 230 [place] [address] 09/13/2024 9:00 AM EDT Clinical Support [facility] MEDICINE [address] [place], [place] [phone] April Murrell, RN 09/24/2024 3:00 PM EDT Office Visit [facility] ADULT DENTAL 230 [place] [address] Trina Arrieta documented as of this encounter Visit Diagnoses Not on filedocumented in this encounter Care Teams [employer] Law Clerk Relationship Specialty Start Date End Date Macie Link DO [address] [place] [address] PCP - General Family Medicine 05/30/18 Flor Clark PharmD [address] [place] [address] Pharmacist Internal Medicine 08/18/23 documented as of this encounter
--- OUTSIDE RECORDS SUMMARY | 2024-06-19 17:46 | XMS_ITS | Encounter Summary ---
Author Organization [employer] [facility] Address [address] [facility] 7t [place] [address] Care Team Providers Care Journeyman Tool And Die Maker Name Role Phone Macie Link DO Primary Care Provider Flor Clark PharmD Unavailable [phone] Reason for Visit * Reason Comments Med Refill Encounter Details Date Type Department Care Team (Late st Contact Info) Description 01/13/2023 Refill [facility] MEDICINE [address] [place] [address] Macie Link DO 230 [place] [address] Chronic neck pain Social History Tobacco Use [...] Description 07/03/2024 1:00 PM EST Medication Management [facility] MEDICINE [address] [place] [address] Puia, Flor, PharmD [address] [place] [address] 07/05/2024 2:00 PM EST Office Visit [facility] ADULT DENTAL [address] [place] [address] Hancock-Karmen Headley, DDS [address] [place], [place] [phone] 09/13/2024 9:00 AM EDT Clinical Support [facility] MEDICINE [address] [place] [address] [phone] April Murrell, RN 09/24/2024 3:00 PM EDT Office Visit [facility] ADULT DENTAL [address] [place] [address] [phone] Trina Arrieta documented as of this encounter Visit Diagnoses Diagnosis Chronic neck pain Cervicalgia documented in this encounter Additional Health Concerns Assessment Noted Time PHQ-9 Depression Total Score: 2 07/06/19 23 9:23 AM EST documented as of this encounter Care Teams Journeyman Tool And Die Maker Relationship Specialty Start Date End Date Macie Link DO [address] [place] [address] [phone] PCP - General Family Medicine 05/30/18 Flor Clark PharmD [address] [place] [address] [phone] Pharmacist Internal Medicine 08/18/23 documented as of this encounter
--- OUTSIDE RECORDS SUMMARY | 2024-06-19 17:46 | XMS_ITS | Encounter Summary ---
Author Organization [employer] Address [address] [facility] [address] 7t [place] [address] Care Team Providers Care Salesperson Fashion Accessories Name Role Phone Macie Link DO Primary Care Provider [phone] Flor Clark PharmD Unavailable [phone] Reason for Visit * Reason Comments Med Refill Encounter Details Date Type Department Care Team ([facility] st Contact Info) Description 03/08/2023 Refill [facility] MEDICINE 230 [place] [address] Macie Link DO 230 [place] [address] Anxiety; Chronic neck pain Social History Tobacco [...] housing situation today? I have erendira hauser 03/08/[address] you li ve. Do you have problems with any of the following? None of the above 03/08/2023 Food Insecurity Answer Date Recorded Within the past 12 months, y ou worried that your food would run out before you got money to buy more: Never True 03/08/2023 Within the past 12 months,th e food you bought just didn't last and you didn't have enough money to get more: Never True 02/2023 Transportation Answer Date Recorded In the past 12 months, has l ack of transportation kept you from medical appts, meetings, work or from getting things needed for daily living? No 03/08/2023 Utilities Answer Date Recorded In the past 12 months, has t he electric, gas, oil or water company threatened to shut off services in your home? No 03/08/2023 Depression Answer Date Recorded Patient Health Questionnaire-2 [...] Description 07/03/2024 1:00 PM EST Medication Management [facility] MEDICINE [address] [place] [address] Flor Clark PharmD [address] [place] [address] 07/05/2024 2:00 PM EST Office Visit [facility] ADULT DENTAL [address] [place] [address] Karmen Bustamante DDS [address] [place] [address] 09/13/2024 9:00 AM EDT Clinical Support [facility] MEDICINE [address] [place] [address] April Murrell RN 09/24/2024 3:00 PM EDT Office Visit [facility] ADULT DENTAL [address] [place] [address] Trina Arrieta documented as of this encounter Visit Diagnoses Diagnosis Anxiety Anxiety state, unspecified Chronic neck pain Cervicalgia documented in this encounter Additional Health Concerns Assessment Noted Time PHQ-9 Depression Total Score: 2 07/06/19 23 9:23 AM EST documented as of this encounter Care Teams Salesperson Fashion Accessories Relationship Specialty Start Date End Date Macie Link DO [address] [place] [address] PCP - General Family Medicine 05/30/18 Flor Clark, Jaspreet [address] [place] [address] Pharmacist Internal Medicine 08/18/23 documented as of this encounter
--- OUTSIDE RECORDS SUMMARY | 2024-06-19 17:46 | XMS_ITS | Encounter Summary ---
Author Organization [employer] Address [address] [facility] [address] 7t [place] [address] Care Team Providers Care Factory Maintenance Technician Name Role Phone Macie Link DO Primary Care Provider Flor Clark PharmD Unavailable [phone] Encounter Details Date Type Department Care Team ([facility] st Contact Info) Description 06/14/2023 Telephone [facility] MEDICINE [address] [place], [place] [phone] Macie Link DO 230 [place] [address] Social History Tobacco Use Types Packs/Day Years [...] Description 07/03/2024 1:00 PM EST Medication Management [facility] MEDICINE [address] [place] [address] Flor Clark PharmD [address] [place] [address] 07/05/2024 2:00 PM EST Office Visit [facility] ADULT DENTAL [address] [place] [address] Karmen Bustamante DDS [address] [place] [address] 09/13/2024 9:00 AM EDT Clinical Support [facility] [address] [place] [address] April Murrell, RN 09/24/2024 3:00 PM EDT Office Visit [facility] ADULT DENTAL [address] [place] [address] Trina Arrieta documented as of this encounter Visit Diagnoses Not on filedocumented in this encounter Additional Health Concerns Assessment Noted Time PHQ-9 Depression Total Score: 13 024 9:15 AM EST documented as of this encounter Care Teams Factory Maintenance Technician Relationship Specialty Start Date End Date Macie Link DO [address] [place] [address] PCP - General Family Medicine 05/30/18 Flor Clark, Jaspreet [address] [place] [address] [place] [phone] Pharmacist Internal Medicine 08/18/23 documented as of this encounter
--- OUTSIDE RECORDS SUMMARY | 2024-06-19 17:46 | XMS_ITS | Encounter Summary ---
Author Organization [employer] [facility] Address [address] [facility] 7t [place] [address] Care Team Providers Care Electrode Cleaning Machine Operator Name Role Phone ArcadioMacie smith Primary Care Provider [phone] PuFlor quinones PharmD Unavailable [phone] Encounter Details Date Type Department Care Team (Late st Contact Info) Description 05/18/2022 Orders Only [facility] [address] [place] [address] Mariella Diallo LPN Social History Tobacco Use Types Packs/Day [...] 1:00 PM EST Medication Management [facility] MEDICINE [address] [place] [address] Puia, Flor, PharmD 230 [place] [address] 07/05/2024 2:00 PM EST Office Visit [facility] ADULT DENTAL [address] [place] [address] Hancock-HeadleyKarmen chauhan, DDS [address] [place] [address] 09/13/2024 9:00 AM EDT Clinical Support [facility] MEDICINE [address] [place], [place] [phone] April Murrell, RN 09/24/2024 3:00 PM EDT Office Visit [facility] ADULT DENTAL [address] [place] [address] Trina Arrieta documented as of this encounter Visit Diagnoses Not on filedocumented in this encounter Care Teams Electrode Cleaning Machine Operator Relationship Specialty Start Date End Date Macie Link DO [address] [place] [address] PCP - General Family Medicine 05/30/18 Flor Clark PharmD [address] [place] [address] Pharmacist Internal Medicine 08/18/23 documented as of this encounter
--- OUTSIDE RECORDS SUMMARY | 2024-06-19 17:46 | XMS_ITS | Encounter Summary ---
Author Organization [employer] Address [address] [facility] [address] 7t [place] [address] Care Team Providers Care Pneumatic Deicer Inspector Name Role Phone Macie Link DO Primary Care Provider [phone] Flor Clark PharmD Unavailable [phone] Reason for Visit * Reason Onset Date Comments Prior Authorization 08/17/2023 Encounter Details Date Type Department Care Team ([facility] st Contact Info) Description 08/17/2023 Telephone [facility] MEDICINE [address] [place] [address] Macie Link DO [address] [place] [address] Prior Authorization Social History Tobacco Use Types Packs/Day Years [...] Telephone Encounter - Macie Stiles LPN - 08/17/2023 12:55 PM EDT Per TC from 08/17/23 medication needs a PA and was sent to PA team. * Telephone Encounter - Dena Lino - 08/17/2023 12:42 PM EDT TC from pt requesting medication refill. Medications needing refill : lidocaine-prilocaine (Emla) 2.5-2.5 % cream To be sent to: [facility] - [place], [place] - [address] [facility] documented in this encounter Plan of Treatment Upcoming Encounters Date Type Department Care Team (Late st Contact Info) Description 07/03/2024 1:00 PM EST Medication Management [facility] MEDICINE [address] [place] [address] Flor Clark, PharmD [address] [place] [address] 07/05/2024 2:00 PM EST Office Visit [facility] ADULT DENTAL [address] [place], [place] [phone] Hancock-Headley, Karmen, DDS [address] [place] [address] 09/13/2024 9:00 AM EDT Clinical Support [facility] MEDICINE [address] [place] [address] April Murrell RN 09/24/2024 3:00 PM EDT Office Visit [facility] ADULT DENTAL [address] [place] [address] Trina Arrieta documented as of this encounter [...] documented as of this encounter Care Teams Pneumatic Deicer Inspector Relationship Specialty Start Date End Date Macie Link DO [place], [place] [phone] PCP - General Family Medicine 05/30/18 Flor Clark PharmD [place], [place] [phone] Pharmacist Internal Medicine 08/18/23 documented as of this encounter
--- OUTSIDE RECORDS SUMMARY | 2024-06-19 17:46 | XMS_ITS | Encounter Summary ---
Author Organization [employer] Address [address] [facility] 7t [place] [address] Care Team Providers Care Seedling Puller Name Role Phone Macie Link DO Primary Care Provider [phone] Flor Clark PharmD Unavailable [phone] Reason for Visit * Reason Comments Med Refill Encounter Details Date Type Department Care Team ([facility] st Contact Info) Description 06/03/2023 Refill [facility] MEDICINE [address] [place] [address] Macie Link DO [address] [place] [address] Anxiety Social History Tobacco Use Types Packs/Day [...] 1:00 PM EST Medication Management [facility] MEDICINE [address] [place] [phone] Flor Clark, PharmD [address] [place] [address] 07/05/2024 2:00 PM EST Office Visit [facility] ADULT DENTAL [address] [place] [address] Karmen Bustamante DDS [address] [place] [address] 185[address] 09/13/2024 9:00 AM EDT Clinical Support [facility] MEDICINE [address] [place] [address] 10102 April Murrell, RN 09/24/2024 3:00 PM EDT Office Visit [facility] ADULT DENTAL [address] [place] [address] 28[address] Trina Arrieta documented as of this encounter Visit Diagnoses Diagnosis Anxiety Anxiety state, unspecified documented in this encounter Additional Health Concerns Assessment Noted Time PHQ-9 Depression Total Score: 13 024 9:15 AM EST documented as of this encounter Care Teams Seedling Puller Relationship Specialty Start Date End Date Macie Link DO [address] [place] [address] PCP - General Family Medicine 05/30/18 Flor Clark PharmD [address] [place] [phone] Pharmacist Internal Medicine 08/18/23 documented as of this encounter
--- OUTSIDE RECORDS SUMMARY | 2024-06-19 17:46 | XMS_ITS | Encounter Summary ---
Author Organization [facility] [facility] Address [address] [facility] 7t [place] [address] Care Team Providers Care Tung Nut Grower Name Role Phone Macie Link DO Primary Care Provider Flor Clark PharmD Unavailable Reason for Visit * Reason Comments Med Refill Encounter Details Date Type Department Care Team (Late st Contact Info) Description 12/31/2022 Refill [facility] MEDICINE [address] [place] [address] Macie Link DO [address] [place] [address] Anxiety Social History Tobacco Use Types Packs/Day [...] 07/03/2024 1:00 PM EST Medication Management [facility] MEDICINE [address] [place] [address] Puia Flor, PharmD [address] [place] [address] 07/05/2024 2:00 PM EST Office Visit [facility] ADULT DENTAL [address] [place] [address] Karmen Bustamante, DDS [address] [place] [address] 09/13/2024 9:00 AM EDT Clinical Support [facility] MEDICINE [address] [place] [address] [phone] April Murrell, RN 09/24/2024 3:00 PM EDT Office Visit [facility] ADULT DENTAL [address] [place] [address] [phone] Trina Arrieta documented as of this encounter Visit Diagnoses Diagnosis Anxiety Anxiety state, unspecified documented in this encounter Additional Health Concerns Assessment Noted Time PHQ-9 Depression Total Score: 2 07/06/19 23 9:23 AM EST documented as of this encounter Care Teams Tung Nut Grower Relationship Specialty Start Date End Date Macie Link DO [address] [place] [address] [phone] PCP - General Family Medicine 05/30/18 Flor Clark PharmD [address] [place] [address] [phone] Pharmacist Internal Medicine 08/18/23 documented as of this encounter
--- OUTSIDE RECORDS SUMMARY | 2024-06-19 17:46 | XMS_ITS | Encounter Summary ---
Author Organization [employer] Address [address] [facility] [address] 7t [place] [address] Care Team Providers Care Assistant Professor Of Theater Name Role Phone TiffanyMacie hamilton Primary Care Provider [phone] Flor Clark PharmD Unavailable Encounter Details Date Type Department Care Team (Late st Contact Info) Description 07/30/2022 Orders Only [facility] MEDICINE [address] [place] [address] Cassie Jeronimo MD [address] [place] [address] Chronic neck pain (Primary Dx) Social History [...] Description 07/03/2024 1:00 PM EST Medication Management [facility] MEDICINE [address] [place] [phone] Flor Clark PharmD [address] [place] [phone] 07/05/2024 2:00 PM EST Office Visit [facility] ADULT DENTAL [address] [place] [address] Karmen Bustamante, DDS [address] [place] [address] 298[address] 09/13/2024 9:00 AM EDT Clinical Support [facility] MEDICINE [address] [place] [address] [phone] April Murrell, RN 09/24/2024 3:00 PM EDT Office Visit [facility] ADULT DENTAL [address] [place] [address] Trina Arrieta documented as of this encounter Visit Diagnoses Diagnosis Chronic neck pain- Primary Cervicalgia documented in this encounter Additional Health Concerns Assessment Noted Time PHQ-9 Depression Total Score: 2 07/06/19 23 9:23 AM EST documented as of this encounter Care Teams Assistant Professor Of Theater Relationship Specialty Start Date End Date Macie Link DO [address] [place] [phone] PCP - General Family Medicine 05/30/18 Flor Clark PharmD [address] [place] [phone] Pharmacist Internal Medicine 08/18/23 documented as of this encounter
--- OUTSIDE RECORDS SUMMARY | 2024-06-19 17:46 | XMS_ITS | Encounter Summary ---
Author Organization [employer] Address [address] [facility] 7t [place] [address] Care Team Providers Care Research Environmental Scientist Name Role Phone Macie Link DO Primary Care Provider Flor Clark PharmD Unavailable Reason for Visit * Reason Onset Date Comments Durable Medical Equipment 05/10/2022 Encounter Details Date Type Department Care Team (Late st Contact Info) Description 05/10/2022 Telephone [facility] MEDICINE [address] [place] [address] Macie Link DO [address] [place] [address] Durable Medical Equipment Social History Tobacco Use Types Packs/Day Years Used Date Smoking Tobacco: Never Assessed Sex and Gender Information Value Date Recorded Sex Assigned at Male 03/29/2022 10:15 AM EDT Legal Sex Male 10:15 AM EDT Gender Identity Male 03/29/2022 10:15 AM EDT Sexual Orientation Choose not to disclose 2021 10:15 AM EDT documented as of this encounter Miscellaneous Notes * Telephone Encounter - Windy Mendoza - 05/12/2022 3:19 PM EST TC to [facility] this morning and they have everything they need to submit to insurance. Once item is ready they will contact pt. * Telephone Encounter - Winyd Mendoza - 05/10/2022 2:46 PM EST Message left at [facility]C checking on status of Glucerna * Telephone Encounter - Xiao Fernandes - 05/10/2022 1:45 PM EST Tc from jesus from [facility] care requesting status on Glucerna . States pt has tried reaching [facility] and no response . Also caller is requesting a adjustable position bed. Best contact # [phone] documented in this encounter Plan of Treatment Upcoming Encounters Date Type Department Care Team (Late st Contact Info) Description 07/03/2024 1:00 PM EST Medication Management [facility] MEDICINE [address] [place] [phone] Flor Clark PharmD [address] [place] [address] 07/05/2024 2:00 PM EST Office Visit [facility] ADULT DENTAL [address] [place] [address] Karmen Bustamante, DDS [address] [place] [address] 09/13/2024 9:00 AM EDT Clinical Support [facility] MEDICINE [address] [place] [address] 32782 April Murrell, PADILLA 09/24/2024 3:00 PM EDT Office Visit [facility] ADULT DENTAL [address] [place] [address] Trina Arrieta documented as of this encounter Visit Diagnoses Not on filedocumented in this encounter Care Teams Research Environmental Scientist Relationship Specialty Start Date End Date Macie Link DO [address] [place] [phone] PCP - General Family Medicine 05/30/18 Flor Clark PharmD [address] [place] [phone] Pharmacist Internal Medicine 08/18/23 documented as of this encounter
--- OUTSIDE RECORDS SUMMARY | 2024-06-19 17:46 | XMS_ITS | Encounter Summary ---
Author Organization [employer] Address [address] [facility] [address] 7t [place] [address] Care Team Providers Care Carton Catcher Name Role Phone Macie Link DO Primary Care Provider [phone] Flor Clark PharmD Unavailable [phone] Reason for Visit * Reason Comments Med Refill Encounter Details Date Type Department Care Team ([facility] st Contact Info) Description 03/14/2023 Refill [facility] MEDICINE [address] [place] [address] Macie Link DO [address] [place] [address] Anxiety; Chronic neck pain Social History Tobacco [...] 1:00 PM EST Medication Management [facility] MEDICINE [address] [place] [phone] Flor Clark PharmD [address] [place] [phone] 07/05/2024 2:00 PM EST Office Visit [facility] ADULT DENTAL [address] [place] [address] Karmen Bustamante DDS [address] [place] [phone] 09/13/2024 9:00 AM EDT Clinical Support [facility] MEDICINE [address] [place] [address] [phone] April Murrell RN 09/24/2024 3:00 PM EDT Office Visit [facility] ADULT DENTAL [address] [place] [address] Trina Arrieta documented as of this encounter Visit Diagnoses Diagnosis Anxiety Anxiety state, unspecified Chronic neck pain Cervicalgia documented in this encounter Additional Health Concerns Assessment Noted Time PHQ-9 Depression Total Score: 2 07/06/19 23 9:23 AM EST documented as of this encounter Care Teams Carton Catcher Relationship Specialty Start Date End Date Macie Link DO [address] [place] [phone] PCP - General Family Medicine 05/30/18 Flor Clark, Jaspreet [address] [place] [phone] Pharmacist Internal Medicine 08/18/23 documented as of this encounter
--- OUTSIDE RECORDS SUMMARY | 2024-06-19 17:46 | XMS_ITS | Encounter Summary ---
Author Organization [employer] Address [address] [facility] [address] 7t [place] [address] Care Team Providers Care Budget Assistant Name Role Phone Macie Link DO Primary Care Provider Flor Clark PharmD Unavailable [phone] Reason for Visit * Reason Onset Date Comments Appointment Request 07/28/2023 Encounter Details Date Type Department Care Team ([facility] st Contact Info) Description 07/28/2023 Telephone [facility] MEDICINE [address] [place] [address] Macie Link DO [address] [place] [address] Appointment Request Social History Tobacco Use Types Packs/Day Years [...] * Telephone Encounter - Oziel Ramirez - 07/28/2023 12:39 PM EST Tc from pt requesting to schedule follow up per recall for August however abstract writer unable to schedule. Please contact at [phone] documented in this encounter Plan of Treatment Upcoming Encounters Date Type Department Care Team (Late st Contact Info) Description 07/03/2024 1:00 PM EST Medication Management [facility] MEDICINE [address] [place] [phone] Flor Clark, DerikD [address] [place] [address] 07/05/2024 2:00 PM EST Office Visit [facility] ADULT DENTAL [address] [place] [address] Karmen Bustamante DDS [address] [place] [address] 09/13/2024 9:00 AM EDT Clinical Support [facility] MEDICINE [address] [place] [address] [phone] April Murrell RN 09/24/2024 3:00 PM EDT Office Visit [facility] ADULT DENTAL [address] [place] [address] Trina Arrieta documented as of this encounter Visit Diagnoses Not on filedocumented in this encounter Additional Health Concerns Assessment Noted Time PHQ-9 Depression Total Score: 13 05/31/ 024 9:15 AM EST documented as of this encounter Care Teams Budget Assistant Relationship Specialty Start Date End Date Macie Link DO [address] [place] [address] PCP - General Family Medicine 05/30/18 Flor Clark PharmD [address] [place] [address] Pharmacist Internal Medicine 08/18/23 documented as of this encounter
--- OUTSIDE RECORDS SUMMARY | 2024-06-19 17:47 | XMS_ITS | Encounter Summary ---
Author Organization [facility], Address [address] [place] [address] Phone Care Team Providers Care Sourcing Internship Name Role Phone Macie Link DO Primary Care Provider Unava ilable Encounter Details Date Type Department Care Team (Late st Contact Info) Description 03/16/2024 Documentation Only [facility], [address] [place] [address] Jimena Gibson [place] [address] [place] [address] Social History Tobacco Use Types Packs/Day Years Used Date Smoking Tobacco: Former Cigarettes Q uit: 07/14/1991 Smokeless Tobacco: Never Alcohol Use Standard Drinks/Week Comments Not Currently 0 (1 standard drink = 0.6 oz pur e alcohol) Sex and Gender Information Value Date Recorded Sex Assigned at Not on file Legal Sex Male 4:36 PM EST Gender Identity Not on file Sexual Orientation Not on file documented as of this encounter Plan of Treatment Not on file documented as of this encounter Visit Diagnoses Not on filedocumented in this encounter Care Teams Sourcing Internship Relationship Specialty Start Date End Date Macie Link DO PCP - General 04/03/19 documented as of this encounter
--- OUTSIDE RECORDS SUMMARY | 2024-06-19 17:47 | XMS_ITS | Encounter Summary ---
Author Organization [facility], Address [address] [place] [address] Phone Care Team Providers Care Ankle Patch Molder Name Role Phone Macie Link DO Primary Care Provider Unava ilable Encounter Details Date Type Department Care Team (Late st Contact Info) Description 07/10/2021 Documentation Only [facility], [address] [place] [address] Romario Ford MD [address] [place] [phone] Social History Tobacco Use Types Packs/Day Years Used Date Smoking Tobacco: Former Cigarettes Q uit: 07/14/1991 Alcohol Use Standard Drinks/Week Comments Yes 0 (1 standard drink = 0.6 oz [...] on filedocumented in this encounter Care Teams Ankle Patch Molder Relationship Specialty Start Date End Date Macie Link DO PCP - General 04/03/19 documented as of this encounter
--- OUTSIDE RECORDS SUMMARY | 2024-06-19 17:47 | XMS_ITS | Encounter Summary ---
Author Organization [facility], Address [address] [place] [address] Phone Care Team Providers Care Power Lineman Name Role Phone Macie Link DO Primary Care Provider Unava ilable Encounter Details Date Type Department Care Team (Late st Contact Info) Description 09/01/2021 Documentation Only [facility], [address] [place] [place] [phone] Estefania Sung PA [address] [place] [phone] Social History Tobacco Use Types Packs/Day Years [...] on filedocumented in this encounter Care Teams Power Lineman Relationship Specialty Start Date End Date Macie Link DO PCP - General 04/03/19 documented as of this encounter
--- OUTSIDE RECORDS SUMMARY | 2024-06-19 17:47 | XMS_ITS | Clinical Summary ---
Author Organization [facility], Address [address] [place] [address] Phone Care Team Providers Care [employer] Principal Name Role Phone Macie Link DO Primary Care Provider Unava ilable Allergies No known active allergies Medications cholecalciferol (VITAMIN D-3) 50 MCG (1999 UT) tablet Take 2,000 Units by mouth every morning 9 Active Cyanocobalamin (B-12) 1000 MCG tablet Take 1 tablet by mouth 9 Active insulin glargine (LANTUS) 100 UNIT/ML injection Inject 25 Units under the skin 1 (one) time each day Active rosuvastatin (CRESTOR) 40 MG tablet 10 mg Active levothyroxine (SYNTHROID, LEVOTHROID) 112 MCG tablet Take 112 mcg by mouth 1 (one) time each day Active terazosin (HYTRIN) 2 MG capsule Take 1 capsule (2 mg total) by mouth at bed time 30 capsule 2 2 Active lactulose (CHRONULAC) 10 GM/15ML solution Take 15 mL (10 g total) by mouth in the morning and 15 mL (10 g total) in the evening and 15 mL (10 g total) before bedtime. Do all this for 10 days. 450 mL 11 2 Active zolpidem (AMBIEN) 10 MG tablet Take 10 mg by mouth at night if needed for sleep Active carvedilol (COREG) 12.5 MG tablet Take 25 mg by mouth in the morning and 25 mg in the evening. Take with meals. Active docusate sodium (COLACE) 100 MG capsule Take 100 mg by mouth in the morning and 100 mg in the evening. Active aspirin (ST MYA) 81 MG EC tablet Take 81 mg by mouth 1 (one) time each day Active omeprazole (PriLOSEC) [address] capsule Take 40 mg by mouth 1 (one) time each day Do not crush or chew. Active omega-3 acid ethyl esters (LOVAZA) 1 g capsule Take 2 g by mouth in the morning and 2 g in the evening. Active amLODIPine (NORVASC) 10 MG tablet Take 10 mg by mouth 1 (one) time each day Active atorvastatin (LIPITOR) 80 MG tablet Take 80 mg by mouth 1 (one) time each day Active hydrALAZINE 25 MG tablet Take 25 mg by mouth in the morning and 25 mg in the evening and 25 mg before bedtime. Active oxyCODONE-acetam inophen (PERCOCET) 10-325 MG per tablet TAKE 1 TABLET BY MOUTH EVERY 4 HOURS 3 Active gabapentin (NEURONTIN) 100 MG capsule TAKE 1 CAPSULE BY MOUTH TWICE DAILY IN THE MORNING AND IN THE EVENING 60 capsule 1 3 Active sodium bicarbonate 650 MG tablet Take 650 mg by mouth in the morning and 650 mg in the evening. Active clonazePAM (KlonoPIN) 1 MG tablet Take 1 tablet by mouth in the morning and 1 tablet in the evening. 3 Active nitroglycerin (NITROSTAT) 0.4 MG SL tablet 3 Active colchicine 0.6 MG tablet Take 0.6 mg by mouth every morning 3 Active Diclofenac Sodium 1 % gel APPLY 2 GRAMS TOPICALLY TO AFFECTED AREA(S) TWICE DAILY NEEDED FOR PAIN 3 Active lidocaine (LIDODERM) 5 % patch APPLY 1 PATCH TOPICALLY TO SKIN, LEAVE ON FOR 12 HOURS AND OFF FOR 12 HOURS DIRECTED 3 Active sevelamer carbonate (RENVELA) 800 MG tablet Take 800 mg by mouth in the morning and 800 mg at noon and 800 mg in the evening. Take with meals. Swallow tablet whole; do not crush, break, or chew.. Active clotrimazole (LOTRIMIN) 1 % cream APPLY TO AFFECTED AREA(S) AND SURROUNDING AREA(S) TWICE DAILY IN THE MORNING AND EVENING 2 Active calcitriol (ROCALTROL) 0.25 MCG capsule TAKE 1 CAPSULE BY MOUTH ON MON, WED & FRI 3 Active lidocaine-priloc phani (EMLA) cream APPLY SMALL AMOUNT TO ACCESS SITE (AVF) 1 HOUR BEFORE DIALYSIS. COVER WITH OCCLUSIVE DRESSING (SARAN WRAP) 3 Active albuterol HFA (PROVENTIL HFA;VENTOLIN HFA) 108 (90 Base) MCG/ACT inhaler Inhale 2 puffs every 6 (six) hours if needed for wheezing Active tamsulosin (FLOMAX) 0.4 MG 24 hr capsule Take 0.4 mg by mouth 1 (one) time each day Active Active Problems Problem Noted Date Diagnosed Date Asthma 07/15/2022 History of cerebrovascular accident 07/06/2022 Myocardial infarction 06/10/2022 Gastric polyp 06/10/2022 Metabolic acidosis 12/01/2021 History of nephrectomy 12/01/2021 Stage 5 chronic kidney disease 11/03/2021 Cirrhosis 11/03/2021 Hypervolemia 11/03/2021 Anxiety 10/20/2021 Essential (primary) hypertension 01/26/2021 Proteinuria 08/27/2019 Stage 3a chronic kidney disease 05/15/2019 Overview (06/02/2020): Update for Diagnosis Load Stroke 05/15/2019 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/2018 Resolved Problems Problem Noted Date Diagnosed Date Resolved Date Stage 5 chronic kidney disease 12/01/2021 12/10/2021 Depressive disorder 10/20/2021 10/31/19 22 Low back pain 10/20/2021 10/30/2021 Neck pain 10/20/2021 10/30/2021 Obese class I 10/20/2021 10/30/2021 Radiculitis 10/20/2021 10/30/2021 Sleep apnea 10/20/2021 10/30/2021 Renal mass 09/15/2021 10/30/2021 Acute nontraumatic kidney injury 05/15/2019 11/08/2019 Chronic kidney disease due to hypertension 05/15/2019 07/31/2021 Deep venous thrombosis 05/15/201911/07 Hypercholesterolemia 05/15/2019 020 Hypothyroidism 05/15/2019 11/08/2019 Prostatism 05/15/2019 11/08/2019 Encounters Date Type Department Care Team Description 06/18/2024 Treatment [facility] [place] [address] [place] [address] Romario Ford MD 06/06/2024 Treatment [facility] [place] [address] [place] [address] Romario Ford MD 05/14/2024 Treatment [facility] [place] [address] [place] [address] Romario Ford MD 05/09/2024 Treatment [facility] [place] [address] [place] [address] Romario Ford MD 04/11/2024 Treatment [facility] [place] [address] [place] [address] Romario Ford MD 04/04/2024 Treatment [facility] [place] [address] [place] [address] Romario Ford MD 03/19/2024 Treatment [facility], [place] [place] [address] Romario Ford MD from Last 3 Months Immunizations Name Administration Dates Next Due Hepatitis B 12/19/2014,05/22/2014,04/03/2014 Influenza Split High Dose Pr eservative Free IM 02/11/2015 Influenza, Unspecified 02/23/2021,2019,02/20/2019,02/21,02/04/2017,02/14/2016,02/28/2015 ,04/03/2014,03/02/2011,02/19/2010,03/30,03/06/2003,06/05/2002 Moderna SARS-COV-2 10/06/2021,,08/19/2020,07/22 Pneumococcal Polysaccharide 02/04/2012, 1 Shingrix 09/17/2021 Td, Unspecified 11/10/2000 Tdap 02/04/2012 Family History Medical History Relation Comments Diabetes Mother Hypertension Mother Relation Status Comments Father Unknown Mother Unknown Social History Tobacco Use Types Packs/Day Years Used Date Smoking Tobacco: Former Cigarettes Q uit: 07/14/1991 Smokeless Tobacco: Never Tobacco Cessation:Counseling Given: Not Answered Alcohol Use Standard Drinks/Week Comments Not Currently 0 (1 standard drink = 0.6 oz pur e alcohol) Sex and Gender Information Value Date Recorded Sex Assigned at Not on file Legal Sex Male 4:36 PM EST Gender Identity Not on file Sexual Orientation Not on file Last Filed Vital Signs Vital Sign Reading Time Taken Comments Blood Pressure 145/80 10/28/2022 10:48 AM EDT Pulse 94 10/28/2022 10:48 AM EDT Temperature 36.4 ??C (97.6 ??F) 10/28/2022 10:48 AM E DT Respiratory Rate 16 07/15/2022 8:00 AM EST Oxygen Saturation 100% 10/28/2022 10:48 AM EDT Inhaled Oxygen Concentration - - Weight 82.6 kg (182 lb) 10/28/2022 10:48 AM EDT Height 167.6 cm (5' 6 ) 10/28/2022 10:48 AM EDT Body Mass Index 29.38 10/28/2022 10:48 AM EDT Plan of Treatment Health Maintenance Due Date Last Done Comments Hepatitis B Vaccine (1 of 5 - Risk Dialysis 4-dose series) 1979 12/19/2014, 05/22/2014, 04/03/2014 Colorectal Cancer Screening: Annual FOBT 09/21/2008 Colorectal Cancer Screening: Colonoscopy 09/21/2008 Colorectal Cancer Screening: Sigmoidoscopy 09/21/2008 Diabetes: Ophthalmology Exam 05/15/2019 Diabetes: Pedal Pulse Checked 05/15/2019 Diabetes: Sensory Foot Exam 05/15/2019 Diabetes: Visual Foot Exam 05/15/2019 Pneumococcal Vaccine: Pediat rics (0 to 5 Years) and At-Risk Patients (6 to 64 Years) (3 of 3 - PCV) 05/28/2023 05/28/2022, 02/04/2012, 11/10/2000 Influenza Vaccine (#1) 2024 2, 02/23/2021, 02/11/2020, Additional history exists Diabetes: Hemoglobin A1C 03/01/2024 024, 08/31/2023, 06/01/2023, Additional history exists Procedures Procedure Name Priority Date/Time Associated Diagnosis Comments HEMATOLOGY Routine 12/21/2023 SPECIAL CHEMISTRY Routine 11/30/2023 from Last 3 Months or Most Recently Relevant to Health Maintenance Results * (ABNORMAL) HEMATOLOGY (12/21/2023) Hemoglobin 10.1(L) 14.0 - 18.0 g/dL [facility] Hemoglobin x 3 30.3(L) 42.0 - 54.0 % [facility] 12/21/2023 12/22/2023 8:1 6 AM EDT Narrative [facility] - 12/22/2023 Unless otherwise specified, test(s) performed at: [facility], [address] [place], [place] [id number] HEAT TREAT WORKER: Jos Curran M.D. For any questions, please call customer service at FREQUENCY:OTHER Resulting Agency Comment Specimen source: Blood Anastacio Nickerson MD LAB BLOOD ORDERABLES Final Re sult Performing Organization Address City/[facility] Co de Phone Number [facility] See order comments or contact performing lab [facility], [place] * (ABNORMAL) SPECIAL CHEMISTRY (11/30/2023) Hemoglobin A1C 7.3(H) 4.8 - 5.9 % [facility] 11/30/2023 12/02/2023 1:1 5 PM EDT Narrative [facility] - 12/03/2023 Unless otherwise specified, test(s) performed at: [facility], [address] [place] [id number] HEAT TREAT WORKER: Jos Curran M.D. For any questions, please call customer service at FREQUENCY:MONTHLY Resulting Agency Comment Specimen source: Blood Anastacio Nickerson MD LAB BLOOD BANK TEST ORDERABLE S Final Result Performing Organization Address City/[facility] Co de Phone Number [facility] See order comments or contact performing lab Unknown, [place] from Last 3 Months or Most Recently Relevant to Health Maintenance [place] Care Teams [employer] Principal Relationship Specialty Start Date End Date Macie Link DO PCP - General 04/03/19
--- OUTSIDE RECORDS SUMMARY | 2024-06-19 17:47 | XMS_ITS | Encounter Summary ---
Author Organization [facility], Address [address] [place] [address] Phone Care Team Providers Care Laboratory Cureman Name Role Phone Macie Link DO Primary Care Provider Unava ilable Encounter Details Date Type Department Care Team (Late st Contact Info) Description 12/09/2021 Documentation Only [facility], [address] [place] [address] Romario Ford MD [address] [place] [phone] Social History Tobacco Use Types Packs/Day Years Used Date Smoking Tobacco: Former Cigarettes Q uit: 07/14/1991 Alcohol Use Standard Drinks/Week Comments Yes 0 (1 standard drink = 0.6 oz pur e alcohol) Sex and Gender Information Value Date Recorded Sex Assigned at Not on file Legal Sex Male 4:36 PM EST Gender Identity Not on file Sexual Orientation Not on file COVID-19 Exposure Response Date Recorded In the last 10 days, have yo u been in contact with someone who was confirmed or suspected to have Coronavirus/COVID-19? No / Unsure 11/19/2021 9:04 AM EDT documented as of this encounter Plan of Treatment Not on file documented as of this encounter Visit Diagnoses Not on filedocumented in this encounter Care Teams Laboratory Cureman Relationship Specialty Start Date End Date Macie Link DO PCP - General 04/03/19 documented as of this encounter
--- OUTSIDE RECORDS SUMMARY | 2024-06-19 17:47 | XMS_ITS | Encounter Summary ---
Author Organization [facility], Address [address] [place] [address] Phone Care Team Providers Care Outside Medical Sales Representative Name Role Phone Macie Link DO Primary Care Provider Unava ilable Encounter Details Date Type Department Care Team (Late st Contact Info) Description 07/19/2022 Documentation Only [facility], [address] [place] [address] [place] [address] [place] [address] Social History Tobacco Use Types [...] suspected to have Coronavirus/COVID-19? No / Unsure 07/15/2022 7:45 AM EST documented as of this encounter Plan of Treatment Not on file documented as of this encounter Visit Diagnoses Not on filedocumented in this encounter Care Teams Outside Medical Sales Representative Relationship Specialty Start Date End Date Macie Link DO PCP - General 04/03/19 documented as of this encounter
--- OUTSIDE RECORDS SUMMARY | 2024-06-19 17:47 | XMS_ITS | Encounter Summary ---
Author Organization [facility], Address [address] [place] [address] Phone Care Team Providers Care Inclinometer Tester Name Role Phone Macie Link DO Primary Care Provider Unava ilable Encounter Details Date Type Department Care Team (Late st Contact Info) Description 09/24/2021 Documentation Only [facility], [address] [place] [address] Romario Ford MD [address] [place] [phone] Social History Tobacco Use Types Packs/Day Years [...] Exposure Response Date Recorded In the last month, have you been in contact with someone who was confirmed or suspected to have Coronavirus / COVID-19? No / Unsure 09/17/2021 9:43 AM EDT documented as of this encounter Plan of Treatment Not on file documented as of this encounter Visit Diagnoses Not on filedocumented in this encounter Care Teams Inclinometer Tester Relationship Specialty Start Date End Date Macie Link DO PCP - General 04/03/19 documented as of this encounter
--- OUTSIDE RECORDS SUMMARY | 2024-06-19 17:47 | XMS_ITS | Encounter Summary ---
Author Organization [facility], Address [address] [place] [address] Phone Care Team Providers Care Manager Energy Name Role Phone Macie Link DO Primary Care Provider Unava ilable Encounter Details Date Type Department Care Team (Late st Contact Info) Description 09/06/2021 Documentation Only [facility], [address] [place] [address] Romario Ford MD [address] [place] [phone] Social History Tobacco Use Types Packs/Day Years [...] on filedocumented in this encounter Care Teams Manager Energy Relationship Specialty Start Date End Date Macie Link DO PCP - General 04/03/19 documented as of this encounter
--- OUTSIDE RECORDS SUMMARY | 2024-06-19 17:47 | XMS_ITS | Encounter Summary ---
Author Organization [facility], Address [address] [place] [address] Phone Care Team Providers Care Geothermal System Installer Name Role Phone Macie Link DO Primary Care Provider Unava ilable Reason for Visit * Reason Comments Med Refill Encounter Details Date Type Department Care Team (Late st Contact Info) Description 09/08/2022 Refill [facility], [address] [place] [address] Romario Ford MD [address] [facility] [place] [phone] Social History Tobacco Use Types Packs/Day Years [...] suspected to have Coronavirus/COVID-19? No / Unsure 08/24/2022 10:12 AM EDT documented as of this encounter Plan of Treatment Not on file documented as of this encounter Visit Diagnoses Not on filedocumented in this encounter Care Teams Geothermal System Installer Relationship Specialty Start Date End Date Macie Link DO PCP - General 04/03/19 documented as of this encounter
--- OUTSIDE RECORDS SUMMARY | 2024-06-19 17:47 | XMS_ITS | Encounter Summary ---
Author Organization [facility], Address [address] [place] [address] Phone Care Team Providers Care Manager Analysis Name Role Phone Macie Link DO Primary Care Provider Unava ilable Encounter Details Date Type Department Care Team (Late st Contact Info) Description 07/30/2021 Documentation Only [facility], [address] [place] [address] Romario Ford MD [address] [place] [phone] Social History Tobacco Use Types Packs/Day Years [...] filedocumented in this encounter Care Teams Manager Analysis Relationship Specialty Start Date End Date Macie Link DO PCP - General 04/03/19 documented as of this encounter
--- OUTSIDE RECORDS SUMMARY | 2024-06-19 17:47 | XMS_ITS | Encounter Summary ---
Author Organization [facility], Address [address] [place] [address] Phone Care Team Providers Care Marketing Data Specialist Name Role Phone Macie Link DO Primary Care Provider Unava ilable Encounter Details Date Type Department Care Team (Late st Contact Info) Description 10/23/2021 Documentation Only [facility], [address] [place] [address] Romario Ford MD [address] [place] [phone] Social History Tobacco Use Types Packs/Day Years [...] on filedocumented in this encounter Care Teams Marketing Data Specialist Relationship Specialty Start Date End Date Macie Link DO PCP - General 04/03/19 documented as of this encounter
--- OUTSIDE RECORDS SUMMARY | 2024-06-19 17:47 | XMS_ITS | Encounter Summary ---
Author Organization [facility], Address [address] [place] [address] Phone Care Team Providers Care Practice Assistant Name Role Phone Macie Link DO Primary Care Provider Unava ilable Encounter Details Date Type Department Care Team (Late st Contact Info) Description 11/27/2021 Documentation Only [facility], [address] [place] [address] Romario Ford MD [address] [place] [phone] Social History Tobacco Use Types Packs/Day Years [...] on filedocumented in this encounter Care Teams Practice Assistant Relationship Specialty Start Date End Date Macie Link DO PCP - General 04/03/19 documented as of this encounter
--- OUTSIDE RECORDS SUMMARY | 2024-06-19 17:47 | XMS_ITS | Encounter Summary ---
Author Organization [facility], Address [address] [place] [address] Phone Care Team Providers Care Sponge Packer Name Role Phone Macie Link DO Primary Care Provider Unava ilable Encounter Details Date Type Department Care Team (Late st Contact Info) Description 09/06/2021 Documentation Only [facility], [address] [place] [address] Romario Ford MD [address] [place] [phone] Social History Tobacco Use Types Packs/Day Years [...] on filedocumented in this encounter Care Teams Sponge Packer Relationship Specialty Start Date End Date Macie Link DO PCP - General 04/03/19 documented as of this encounter
--- OUTSIDE RECORDS SUMMARY | 2024-06-19 17:47 | XMS_ITS | Encounter Summary ---
Author Organization [facility], Address [address] [place] [address] Phone Care Team Providers Care Teamcenter Solution Architect Name Role Phone Macie Link DO Primary Care Provider Unava ilable Encounter Details Date Type Department Care Team (Late st Contact Info) Description 09/24/2021 Documentation Only [facility], [address] [place] [address] Romario Ford MD [address] [place] [phone] Social History Tobacco Use Types Packs/Day Years [...] on filedocumented in this encounter Care Teams Teamcenter Solution Architect Relationship Specialty Start Date End Date Macie Link DO PCP - General 04/03/19 documented as of this encounter
--- OUTSIDE RECORDS SUMMARY | 2024-06-19 17:47 | XMS_ITS | Encounter Summary ---
Author Organization [facility], Address [address] [place] [address] Phone Care Team Providers Care Armored Car Messenger Name Role Phone Macie Link DO Primary Care Provider Unava ilable Encounter Details Date Type Department Care Team (Late st Contact Info) Description 06/18/2024 Treatment [facility], [address] [place] [address] Devora Pedroza MD [address] [place] [address] [place] [address] Social History Tobacco Use Types Packs/Day Years [...] on file documented as of this encounter Miscellaneous Notes * Dialysis Note - Devora Pedroza MD - 06/18/2024 12:00 AM EST Patient: Joshua Barnard : 1960 Note Type: Dialysis Rounds-Basic Service Date: 06/18/2024 This patient was personally seen for a basic visit as part of routine monthly dialysis care for end stage renal disease. Attending Hand Former Helper: DEVORA PEDROZA MD Dialysis Location: [facility] Schedule: Shift: 1 OVERVIEW Patient is stable. ADEQUACY ASSESSMENT spKt/V (Daugirdas II) 1.61 (11/30/23) 1.49 (11/02/23) 1.57 (10/12/23) eKdrt/V 1.46 (11/30/23) 1.34 (11/02/23) 1.41 (10/12/23) % Urea Reduction 74 (11/30/23) 71 (11/02/23) 73 (10/12/23) BUN 42 (11/30/23) 62 (11/02/23) 55 (10/12/23) BUN Post Dialysis 11 (11/30/23) 18 (11/02/23) 15 (10/12/23) Creatinine 10.14 (11/30/23) 9.77 (11/02/23) 10.51 (09/28/23) Bicarbonate (CO2) 23 (11/30/23) 24 (11/02/23) 22 (09/28/23) Sodium 137 (11/30/23) 136 (11/02/23) 139 (09/28/23) ANEMIA ASSESSMENT Hemoglobin 10.1 (12/21/23) 10.2 (12/14/23) 10.1 (12/07/23) Iron Saturation (TSat) 48 (11/30/23) 51 (11/02/23) 25 (09/28/23) Ferritin 1,549 (11/30/23) 1,438 (11/02/23) 1,193 (09/28/23) Iron 124 (11/30/23) 127 (11/02/23) 67 (09/28/23) TIBC 260 (11/30/23) 249 (11/02/23) 264 (09/28/23) Reticulocyte Hemoglobin 33.9 (11/30/23) 34.4 (08/31/23) MCV 96 (11/30/23) 95 (08/31/23) BMM ASSESSMENT Calcium 9.1 11/30/23 8.8 11/02/23 9.1 09/28/23 Corrected Calcium 9.1 11/30/23 8.8 11/02/23 9.0 09/28/23 Phosphorus 4.7 11/30/23 4.7 11/02/23 3.9 09/28/23 Calcium Phosphorus Product 43 11/30/23 41 11/02/23 35 09/28/23 PTH 720 11/30/23 783 11/02/23 538 09/28/23 Magnesium 2.0 11/30/23 2.0 11/02/23 2.3 09/28/23 Alkaline Phosphatase 206 11/30/23 177 11/02/23 163 09/28/23 NUTRITION ASSESSMENT Albumin 4.0 11/30/23 4.0 11/02/23 4.1 09/28/23 Potassium 5.2 11/30/23 5.1 11/02/23 5.4 09/28/23 eNPCR 0.78 11/30/23 1.03 11/02/23 0.96 10/12/23 Hemoglobin A1C 7.3 11/30/23 6.9 08/31/23 TRANSPLANT STATUS COMMENT COMMENTS: Work up at [facility] ADDITIONAL LABS WBC 4.18 (11/30/23) 6.31 (08/31/23) Cholesterol 83 (08/31/23) Triglycerides 256 (08/31/23) Hepatitis B Surface Ab >1,000 (08/31/23) ADDITIONAL COMMENT COMMENTS: 06/06/24 Patient is stable Medications reviewed Physical Exam Vital signs: reviewed Edema: none Impression 1.Adequacy: KT/V was assessed and the dialysis prescription was adjusted as needed. 2.Access: Dialysis access function is acceptable. 3.Hypertension: Blood pressure control and volume status are at goal. 4.Anemia: Labs reviewed and adjustments to regimen made according to anemia management protocol. 5.Mineral Bone Disease: Labs reviewed. Diet and medication adjustment as per protocol. 6.Nutrition: Labs reviewed. Dietary adjustments made in conjunction with pastoral ministries professor. 7.Transplant: The patient is being evaluated for a kidney transplant at [facility]. 05/14 stable awaiting appt at [facility] for eval and activation on transplant list Signed by: DEVORA PEDROZA MD on 06/18/2024 at 02:54:02 PM documented in this encounter Plan of Treatment Not on file documented as of this encounter Visit Diagnoses Not on filedocumented in this encounter Care Teams Armored Car Messenger Relationship Specialty Start Date End Date Macie Link DO PCP - General 04/03/19 documented as of this encounter
--- OUTSIDE RECORDS SUMMARY | 2024-06-19 17:47 | XMS_ITS | Encounter Summary ---
Author Organization [facility], Address [address] [place] [address] Phone Care Team Providers Care School Curriculum Developer Name Role Phone Macie Link DO Primary Care Provider Unava ilable Reason for Visit * Reason Comments Med Refill Encounter Details Date Type Department Care Team (Late st Contact Info) Description 07/15/2022 Refill [facility], [address] [place] [place] [address] Romario Ford MD [address] [facility] [place] [phone] Social History Tobacco Use Types Packs/Day Years [...] on filedocumented in this encounter Care Teams School Curriculum Developer Relationship Specialty Start Date End Date Macie Link DO PCP - General 04/03/19 documented as of this encounter
--- OUTSIDE RECORDS SUMMARY | 2024-06-19 17:47 | XMS_ITS | Encounter Summary ---
Author Organization [facility], Address [address] [place] [address] Phone Care Team Providers Care Helicopter Pilot Instructor Name Role Phone Macie Link DO Primary Care Provider Unava ilable Encounter Details Date Type Department Care Team (Late st Contact Info) Description 09/04/2021 Documentation Only [facility], [address] [place] [address] Romario Ford MD [address] [place] [phone] Social History Tobacco Use Types Packs/Day Years [...] on filedocumented in this encounter Care Teams Helicopter Pilot Instructor Relationship Specialty Start Date End Date Macie Link DO PCP - General 04/03/19 documented as of this encounter
--- OUTSIDE RECORDS SUMMARY | 2024-06-19 17:47 | XMS_ITS | Encounter Summary ---
Author Organization [facility], Address [address] [place] [address] Phone Care Team Providers Care Director Career Name Role Phone Macie Link DO Primary Care Provider Unava ilable Encounter Details Date Type Department Care Team (Late st Contact Info) Description 10/19/2023 Documentation Only [facility], [address] [place] [address] Jimena Gibson [place] [address] [place] [address] Social History Tobacco Use Types [...] on filedocumented in this encounter Care Teams Director Career Relationship Specialty Start Date End Date Macie Link DO PCP - General 04/03/19 documented as of this encounter
--- OUTSIDE RECORDS SUMMARY | 2024-06-19 17:47 | XMS_ITS | Encounter Summary ---
Author Organization [facility], Address [address] [place] [address] Phone Care Team Providers Care Language Arts Teacher Name Role Phone Macie Link DO Primary Care Provider Unava ilable Reason for Visit * Reason Comments Med Refill Encounter Details Date Type Department Care Team (Late st Contact Info) Description 07/23/2022 Refill [facility], [address] [place] [address] Romario Ford MD [address] [facility] [place] [phone] Social History Tobacco Use Types Packs/Day Years [...] on filedocumented in this encounter Care Teams Language Arts Teacher Relationship Specialty Start Date End Date Macie Link DO PCP - General 04/03/19 documented as of this encounter
--- OUTSIDE RECORDS SUMMARY | 2024-06-19 17:47 | XMS_ITS | Encounter Summary ---
Author Organization [facility], Address [address] [place] [address] Phone Care Team Providers Care Technical Director Name Role Phone Macie Link DO Primary Care Provider Unava ilable Encounter Details Date Type Department Care Team (Late st Contact Info) Description 06/06/2024 Treatment [facility], [address] [place] [address] Devora Pedroza MD [address] [place] [address] [place] [address] Social History Tobacco Use Types [...] Dialysis Note - Devora Pedroza MD - 06/06/2024 12:00 AM EST Patient: Joshua Barnard : 1960 Note Type: Dialysis Rounds-Comp Service Date: 06/06/2024 This patient was personally seen for a complete visit as part of routine monthly dialysis care for end stage renal disease. Attending Human Resources Operations Director: DEVORA PEDROZA Dialysis Location: [facility] Schedule: Shift: 1 ADEQUACY ASSESSMENT spKt/V (Daugirdas II) 1.61 (11/30/23) [...] TRANSPLANT STATUS COMMENT COMMENTS: Work up at [facility] ADDITIONAL LABS WBC 4.18 (11/30/23) 6.31 (08/31/23) [...] reviewed. Dietary adjustments made in conjunction with scraper burrer. 7.Transplant: The patient is being evaluated for a kidney transplant at [facility]. 05/14 stable awaiting appt at [facility] for eval and activation on transplant list Signed by: DEVORA PEDROZA MD on 06/06/2024 at 04:59:28 PM Transcribed by: DEVORA PEDROZA MD on 06/06/2024 at 04:59:28 PM documented in this encounter Plan of Treatment Not on file documented as of this encounter Visit Diagnoses Not on filedocumented in this encounter Care Teams Technical Director Relationship Specialty Start Date End Date Macie Link DO PCP - General 04/03/19 documented as of this encounter
--- OUTSIDE RECORDS SUMMARY | 2024-06-19 17:47 | XMS_ITS | Encounter Summary ---
Author Organization [facility], Address [address] [place] [address] Phone Care Team Providers Care Architectural Superintendent Name Role Phone Macie Link DO Primary Care Provider Unava ilable Encounter Details Date Type Department Care Team (Late st Contact Info) Description 09/21/2021 Documentation Only [facility], [address] [place] [address] Romario Ford MD [address] [place] [phone] Social History Tobacco Use Types Packs/Day Years [...] on filedocumented in this encounter Care Teams Architectural Superintendent Relationship Specialty Start Date End Date Macie Link DO PCP - General 04/03/19 documented as of this encounter
[2024-06-21 15:54] LABS: Alphahydroxymidazolam,GCMS Ur NEGATIVE; Alphahydroxytriazolam, GCMS Ur NEGATIVE; Alprazolam, GCMS Urine NEGATIVE; Flurazepam Metabolite,GCMS Ur NEGATIVE; Lorazepam GCMS Urine NEGATIVE; Nordiazepam, GCMS Urine NEGATIVE; Oxazepam, GCMS Urine NEGATIVE; Temazepam, GCMS Urine NEGATIVE
[2024-06-21 15:55] LABS: Aminoclonazepam, GCMS Urine 784 (H)
== END 2024-06-19 16:10 | disposition home or self-care (01) ==
LOC: HO.HHCLNP 16:09
PROVIDERS: Visit Provider Family Medicine
DX: M54.2 Cervicalgia (principal); G61.82 Multifocal motor neuropathy; Z79.899 Other long term (current) drug therapy
CPT/HCPCS: 80346

== ENCOUNTER 2024-08-08 12:50 | Outpatient (AMB) | payer MEDICARE, MEDICAID, SELFPAY ==
--- NOTE | 2024-08-08 13:10 | A.OFFVIS_ITS ---
Vital Signs 08/08/24 13:11 Height 5 ft 6 in Weight 198 lb BMI 32.0 Intake Visit Reasons: Bilateral knee pains Intake Note: Joshua is a 63 year old male who presents with complaints of bilateral knee pains. He describes his pains as sharp in nature. His pains have gotten worse over the last few months in spite of continued non operative treatments. He has had cortisone injections in the past which gave him minimal relief. He has also had viscosupplementation injections which gave him good relief. He wishes to hold off on surgery for as long as possible. He has done physical therapy exercises which aggravated his pain. He has also tried Tylenol and anti- inflammatory medicines which gave him minimal relief. Allergies No Known Allergies Allergy (Verified 08/08/24 13:11) Medication List - Last Reconciled 08/08/24 by Mathew Cheema MD albuterol sulfate 90 mcg/actuation (ProAir HFA) 2 puffs PO Q6H PRN amiodarone 200 mg PO QAM amlodipine 10 mg PO DAILY apixaban (Eliquis) 5 mg PO BID 90 days atorvastatin 80 mg PO BEDTIME blood sugar diagnostic (FreeStyle Lite Strips) carvedilol 12.5 mg PO BID clonazepam 1 mg PO BID clotrimazole 1% 1 appl topical BID colchicine mg PO gabapentin 100 mg PO BID insulin aspart U-100 (Novolog FlexPen U-100 Insulin aspart) 1 sliding scale dose subcut TIDAC insulin glargine (Lantus Solostar U-100 Insulin) 34 units subcut DAILY ipratropium bromide 1 spray intranasal TID levothyroxine 112 mcg PO DAILY@0600 lidocaine 5% 1 patch topical DAILY lidocaine-prilocaine 2.5-2.5 % 1 appl topical DAILY PRN loratadine 10 mg PO Q OTHER DAY nitroglycerin 0.4 mg sublingual Q5M PRN omeprazole 40 mg PO BID oxycodone-acetaminophen 10-325 mg 1 tab PO Q4H PRN pen needle, diabetic (Pentips Pen Needle) semaglutide (Ozempic) mg subcut sevelamer carbonate 1,600 mg PO TIDWM zolpidem 10 mg PO BEDTIME [facility] Medical History History of cardioversion Hx of sleep apnea GERD (gastroesophageal reflux disease) Atrial flutter Colon adenomas Asthma Colon cancer screening End stage renal disease Type 2 diabetes mellitus with unspecified complications Essential hypertension Normocytic anemia Non-cardiac chest pain CAD (coronary artery disease) CVA (cerebral vascular accident) Hypertension Surgical History History of colonoscopy H/O neck surgery Hx of colonoscopy History of bladder surgery Stented coronary artery History of nephrectomy Family History Other No family history of coronary artery disease Social History Household Members: Spouse Housing: Apartment Are you a primary inpatient care manager rn to a significant other at home: No Do you presently have visiting nurse or other home services: Yes Alcohol intake: former Patient Tobacco Use Status: Former Tobacco user Tobacco use type: Cigarette service: No Current occupational status: disabled Physical Exam Vital Signs: BMI result Body Mass Index 32.0 Const Other: Well-nourished well-developed very friendly male awake alert and oriented x3 in no acute distress Extrem Other: Bilateral lower extremity examination shows good capillary refill, no skin lesions noted, normal sensation light touch Bilateral knee examination shows minimal effusions, palpable crepitus with range of motion, pain with range of motion, no instability Office Procedures AMB Joint Injection/Aspiration Joint Injection/Aspiration Primary Site: right knee Prep: site was prepped using aseptic technique Injected: 60 mg of (Durolane viscosupplementation) and 1% plain lidocaine Procedure: The patient tolerated the procedure well Coding 18949 - Large joint Procedure code (CPT) selection complete AMB Joint Injection/Aspiration Joint Injection/Aspiration Primary Site: left knee Prep: site was prepped using aseptic technique Injected: 60 mg of (Durolane viscosupplementation) and 1% plain lidocaine Procedure: The patient tolerated the procedure well Coding 04848 - Large joint Procedure code (CPT) selection complete Results Reviewed Results Reviewed: X-rays of the patient's bilateral knees taken previously show joint space narrowing, subchondral sclerosis, no acute bony abnormalities Assessment & Plan Assessment & Plan (1) Osteoarthritis of left knee: Code(s): M17.12 - Unilateral primary osteoarthritis, left knee Category: Medical (2) Osteoarthritis of right knee: Code(s): M17.11 - Unilateral primary osteoarthritis, right knee Category: Medical Plan Mr. Akil Pretty presents with bilateral knee pains due to osteoarthritis. The risks and benefits of bilateral knee Durolane viscosupplementation injections were discussed at length with the patient. The patient wished to proceed. He tolerated the injections well. He will continue with his home exercise program. He will contact me prior to his follow-up appointment in 3 months should any questions or concerns arise. Feel free to call me at any time should questions regarding his orthopedic management arise. I spent 22 minutes in reviewing the patient's records and imaging studies, seeing the patient and documenting in the medical record. Orders: Orders AMB Joint Injection/Aspiration Today M17.11 - Unilateral primary osteoarthritis, right knee AMB Joint Injection/Aspiration Today M17.12 - Unilateral primary osteoarthritis, left knee Coding Level of Care Code Est Pt Level 3 (65653) Complex EM visit Add On G2211 Diagnoses Osteoarthritis of left knee M17.12 Osteoarthritis of right knee M17.11 CPT Codes Coding - 57259 Large joint: 28905 - Large joint ([id number]) Coding - 73110 Large joint: 04776 - Large joint ([id number])
[2024-08-08 13:11] VITALS: BMI 32.0
--- OUTSIDE RECORDS SUMMARY | 2024-08-08 14:50 | XMS_ITS | Encounter Summary ---
Author Organization [facility], Address [address] [place] [address] Phone Care Team Providers Care Organ Assembler Name Role Phone Macie Link DO Primary Care Provider Unava ilable Encounter Details Date Type Department Care Team (Late st Contact Info) Description 09/01/2021 Documentation Only [facility], [address] [place] [place] [phone] Estefania Sung PA Social History Tobacco Use Types Packs/Day Years [...] on filedocumented in this encounter Care Teams Organ Assembler Relationship Specialty Start Date End Date Macie Link DO PCP - General 04/03/19 documented as of this encounter
--- OUTSIDE RECORDS SUMMARY | 2024-08-08 14:50 | XMS_ITS | Encounter Summary ---
Author Organization [facility], Address [address] [place] [address] Phone Care Team Providers Care Spool Cleaner Hand Name Role Phone Macie Link DO Primary Care Provider Unava ilable Encounter Details Date Type Department Care Team (Late st Contact Info) Description 09/24/2021 Documentation Only [facility], [address] [place] [address] Romario Ford MD [address] [place] [phone] Social History Tobacco Use Types Packs/Day Years [...] on filedocumented in this encounter Care Teams Spool Cleaner Hand Relationship Specialty Start Date End Date Macie Link DO PCP - General 04/03/19 documented as of this encounter
--- OUTSIDE RECORDS SUMMARY | 2024-08-08 14:50 | XMS_ITS | Encounter Summary ---
Author Organization [facility] Address [address] [place] [address] Care Team Providers Care Skate Maker Name Role Phone Patient, Has No Pcp Or Ref Primary Care Provider Unavailable Encounter Details Date Type Department Care Team (Late st Contact Info) Description 06/28/2024 Orders Only [facility] Nuclear Medicine [address] [place] [address] Kandice Pacheco MD [address] [place] [address] Social History Tobacco Use Types Packs/Day Years Used Date Smoking Tobacco: Never Assessed Sex and Gender Information Value Date Recorded Sex Assigned at Male 03/16/2024 8:40 AM EDT Legal Sex Male 2:40 PM EDT Gender Identity Male 06/14/2024 1:47 PM EST Sexual Orientation Straight 06/14/2024 1: 47 PM EST documented as of this encounter Plan of Treatment Upcoming Encounters Date Type Department Care Team (Late st Contact Info) Description 03/19/2025 9:00 AM EDT Follow-Up [facility] Renal Transplant [address] [place] [address] Louie Pablo MD [address] [place] [address] 03/19/2025 9:30 AM EDT Social Work [facility] Renal Transplant [address] [place] [address] Miki, Imani, [address] [address] documented as of this encounter Visit Diagnoses Not on filedocumented in this encounter Care Teams Skate Maker Relationship Specialty Start Date End Date Patient, Has No Pcp Or Ref DO NOT EDIT THIS RECORD VIA PROVIDER ON THE FLY PCP - General Fiberglass Roller 03/15/24 documented as of this encounter
--- OUTSIDE RECORDS SUMMARY | 2024-08-08 14:50 | XMS_ITS | Encounter Summary ---
Author Organization [facility], Address [address] [place] [address] Phone Care Team Providers Care Environmental Issues Instructor Name Role Phone Macie Link DO Primary Care Provider Unava ilable Encounter Details Date Type Department Care Team (Late st Contact Info) Description 09/06/2021 Documentation Only [facility], [address] [place] [address] Romario Ford MD [address] [place] [phone] Social History Tobacco Use Types Packs/Day Years [...] on filedocumented in this encounter Care Teams Environmental Issues Instructor Relationship Specialty Start Date End Date Macie Link DO PCP - General 04/03/19 documented as of this encounter
--- OUTSIDE RECORDS SUMMARY | 2024-08-08 14:50 | XMS_ITS | Encounter Summary ---
Author Organization [facility], Address [address] [place] [address] Phone Care Team Providers Care Sociocultural Anthropology Professor Name Role Phone Macie Link DO Primary Care Provider Unava ilable Encounter Details Date Type Department Care Team (Late st Contact Info) Description 07/30/2021 Documentation Only [facility], [address] [place] [address] Romario Ford MD [address] [place] [phone] Social History Tobacco Use Types Packs/Day Years [...] on filedocumented in this encounter Care Teams Sociocultural Anthropology Professor Relationship Specialty Start Date End Date Macie Link DO PCP - General 04/03/19 documented as of this encounter
--- OUTSIDE RECORDS SUMMARY | 2024-08-08 14:50 | XMS_ITS ---
Author Organization [facility] Address [address] [place] [address] Care Team Providers Care Industrial Engineering Intern Name Role Phone Patient, Has No Pcp Or Ref Primary Care Provider Unavailable Active Problems Problem Noted Date Diagnosed Date ESRD (end stage renal disease) 03/05/2024 Overview (03/05/2024): Dialysis start 12/17/2021 Type 2 diabetes mellitus wit h kidney complication, with long-term current use of insulin 03/05/2024 Hypertension 03/05/2024 Renal cell carcinoma 03/05/2024 H/O right nephrectomy 03/05/2024 History of cholecystectomy 03/05/2024 H/O umbilical hernia repair 03/05/2024 Current Treatment and Therapy Plans No current plan information found. Past Treatment and Therapy Plans No past plan information found. Lifetime Dose Tracking * Chemical Lifetime Dose Automatic Entry Manual Entr y TotalDLP 1,501 mGy 1,501 mGy 0 mGy [id number] 21.5 mSv 21.5 mSv 0 mSv CTDIvol Max 18.2 mGy 18.2 mGy 0 mGy CTDIvol Min 14.8 mGy 14.8 mGy 0 mGy
--- OUTSIDE RECORDS SUMMARY | 2024-08-08 14:50 | XMS_ITS | Encounter Summary ---
Author Organization [facility] Address [address] [place] [address] Care Team Providers Care Injury/Safety Hazard Assessment Name Role Phone Patient, Has No Pcp Or Ref Primary Care Provider Unavailable Encounter Details Date Type Department Care Team (Late st Contact Info) Description 06/27/2024 Orders Only [facility] Interventional Radiology [address] [place] [address] Amanda Sweet MD [address] [place] [address] Social History Tobacco Use Types Packs/Day Years [...] Info) Description 03/19/2025 9:00 AM EDT Follow-Up [facility] Renal Transplant [address] [place] [address] Louie Pablo MD [address] [place] [address] 03/19/2025 9:30 AM EDT Social Work [facility] Renal Transplant [address] [place] [address] Miki, Imani, PHD [address] [address] documented as of this encounter Visit Diagnoses Not on filedocumented in this encounter Care Teams Injury/Safety Hazard Assessment Relationship Specialty Start Date End Date Patient, Has No Pcp Or Ref DO NOT EDIT THIS RECORD VIA PROVIDER ON THE FLY PCP - General Bed Placement Coordinator 03/15/24 documented as of this encounter
--- OUTSIDE RECORDS SUMMARY | 2024-08-08 14:50 | XMS_ITS | Encounter Summary ---
Author Organization [facility], Address [address] [place] [address] Phone Care Team Providers Care Bridge Club Manager Name Role Phone Macie Link DO Primary Care Provider Unava ilable Encounter Details Date Type Department Care Team (Late st Contact Info) Description 09/06/2021 Documentation Only [facility], [address] [place] [address] Romario Ford MD [address] [place] [phone] Social History Tobacco Use Types Packs/Day Years [...] on filedocumented in this encounter Care Teams Bridge Club Manager Relationship Specialty Start Date End Date Macie Link DO PCP - General 04/03/19 documented as of this encounter
--- OUTSIDE RECORDS SUMMARY | 2024-08-08 14:50 | XMS_ITS | Encounter Summary ---
Author Organization [facility], Address [address] [place] [address] Phone Care Team Providers Care Assistant Store Manager Name Role Phone Macie Link DO Primary Care Provider Unava ilable Encounter Details Date Type Department Care Team (Late st Contact Info) Description 08/01/2024 Treatment [facility], [address] [place] [address] Devora Pedroza MD [address] [place] [address] [place] [address] End stage renal disease; Dependence on renal dialysis Social History Tobacco Use Types Packs/Day Years [...] Dialysis Note - Devora Pedroza MD - 08/01/2024 12:00 AM EST Patient: Joshua Barnard : 1960 Note Type: Dialysis Rounds-Comp Service Date: 08/01/2024 This patient was personally seen for a complete visit as part of routine monthly dialysis care for end stage renal disease. Attending Rn Advice: DEVORA PEDROZA Dialysis Location: [facility] Schedule: Shift: 1 ADEQUACY ASSESSMENT spKt/V [...] TRANSPLANT STATUS COMMENT COMMENTS: Work up at [facility] ADDITIONAL LABS WBC 4.18 (11/30/23) 6.31 (08/31/23) Cholesterol 83 (08/31/23) Triglycerides 256 (08/31/23) Hepatitis B Surface Ab >1,000 (08/31/23) ADDITIONAL COMMENT COMMENTS: 08/01/24 Patient is stable Medications reviewed Physical Exam [...] reviewed. Dietary adjustments made in conjunction with knife finisher. 7.Transplant: The patient is being evaluated for a kidney transplant. 07/04/24 Patient is stable Medications reviewed Physical Exam [...] reviewed. Dietary adjustments made in conjunction with knife finisher. 7.Transplant: The patient is being evaluated for a kidney transplant at [facility] awaiting MRI abdomen. 06/06/24 Patient is stable Medications reviewed Physical [...] reviewed. Dietary adjustments made in conjunction with knife finisher. 7.Transplant: The patient is being evaluated for a kidney transplant at [facility]. 05/14 stable awaiting appt at [facility] for eval and activation on transplant list Signed by: DEVORA PEDROZA MD on 08/01/2024 at 10:56:37 AM Transcribed by: DEVORA PEDROZA MD on 08/01/2024 at 10:56:37 AM documented in this encounter Plan of Treatment Not on file documented as of this encounter Visit Diagnoses Diagnosis End stage renal disease Dependence on renal dialysis documented in this encounter Care Teams Assistant Store Manager Relationship Specialty Start Date End Date Macie Link DO PCP - General 04/03/19 documented as of this encounter
--- OUTSIDE RECORDS SUMMARY | 2024-08-08 14:50 | XMS_ITS | Encounter Summary ---
Author Organization [facility], Address [address] [place] [address] Phone Care Team Providers Care Release And Technical Records Clerk Name Role Phone Macie Link DO Primary Care Provider Unava ilable Encounter Details Date Type Department Care Team (Late st Contact Info) Description 09/21/2021 Documentation Only [facility], [address] [place] [address] Romario Ford MD [address] [place] [phone] Social History Tobacco Use Types Packs/Day Years [...] on filedocumented in this encounter Care Teams Release And Technical Records Clerk Relationship Specialty Start Date End Date Macie Link DO PCP - General 04/03/19 documented as of this encounter
--- OUTSIDE RECORDS SUMMARY | 2024-08-08 14:50 | XMS_ITS | Encounter Summary ---
Author Organization [facility], Address [address] [place] [address] Phone Care Team Providers Care Bag Tester Name Role Phone Macie Link DO Primary Care Provider Unava ilable Encounter Details Date Type Department Care Team (Late st Contact Info) Description 09/04/2021 Documentation Only [facility], [address] [place] [address] Romario Ford MD [address] [place] [phone] Social History Tobacco Use Types Packs/Day Years [...] on filedocumented in this encounter Care Teams Bag Tester Relationship Specialty Start Date End Date Macie Link DO PCP - General 04/03/19 documented as of this encounter
--- OUTSIDE RECORDS SUMMARY | 2024-08-08 14:50 | XMS_ITS | Encounter Summary ---
Author Organization [facility], Address [address] [place] [address] Phone Care Team Providers Care Buggyman Name Role Phone Macie Link DO Primary Care Provider Unava ilable Encounter Details Date Type Department Care Team (Late st Contact Info) Description 10/23/2021 Documentation Only [facility], [address] [place] [address] Romario Ford MD [address] [place] [phone] Social History Tobacco Use Types Packs/Day Years [...] on filedocumented in this encounter Care Teams Buggyman Relationship Specialty Start Date End Date Macie Link DO PCP - General 04/03/19 documented as of this encounter
--- OUTSIDE RECORDS SUMMARY | 2024-08-08 14:50 | XMS_ITS | Encounter Summary ---
Author Organization [facility], Address [address] [place] [address] Phone Care Team Providers Care Patient Service Associate Name Role Phone Macie Link DO Primary Care Provider Unava ilable Encounter Details Date Type Department Care Team (Late st Contact Info) Description 07/10/2021 Documentation Only [facility], [address] [place] [address] Romario Ford MD [address] [place] [phone] Social History Tobacco Use Types Packs/Day Years [...] on filedocumented in this encounter Care Teams Patient Service Associate Relationship Specialty Start Date End Date Macie Link DO PCP - General 04/03/19 documented as of this encounter
--- OUTSIDE RECORDS SUMMARY | 2024-08-08 14:50 | XMS_ITS | Encounter Summary ---
Author Organization [facility], Address [address] [place] [address] Phone Care Team Providers Care Web Retailer Name Role Phone Macie Link DO Primary Care Provider Unava ilable Encounter Details Date Type Department Care Team (Late st Contact Info) Description 09/24/2021 Documentation Only [facility], [address] [place] [address] Romario Ford MD [address] [place] [phone] Social History Tobacco Use Types Packs/Day Years [...] on filedocumented in this encounter Care Teams Web Retailer Relationship Specialty Start Date End Date Macie Link DO PCP - General 04/03/19 documented as of this encounter
--- OUTSIDE RECORDS SUMMARY | 2024-08-08 14:51 | XMS_ITS | Clinical Summary ---
Author Organization [facility] Address [address] [place] [address] Care Team Providers Care Wholesale Loan Processor Name Role Phone FaribaMacie Primary Care Provider + [phone] Flor Clark PharmD Unavailable [phone] Allergies No known active allergies Medications [...] CAPSULE BY MOUTH ON MON, WED & Tue 023 Active amiodarone (Pacerone) 200 MG tablet Take 200 mg by mouth Once per day. 023 Active carvedilol (Coreg) 12.5 MG tablet 023 Active Methoxy PEG-Epoetin Beta (MIRCERA IJ) 75 mcg. 024 Active Diclofenac Sodium 1 % gel APPLY 2 GRAMS TOPICALLY TO AFFECTED AREA(S) TWICE DAILY NEEDED FOR PAIN 100 g 5 024 Active cetirizine (ZyrTEC) 10 MG tablet Take 0.5 tablets (5 mg) by mouth Once per day. 15 tablet 11 024 2024 Active levothyroxine (Synthroid, Levoxyl) 125 MCG tabletIndicatio ns:Hypothyroidi sm, unspecified type Take 1 tablet (125 mcg) by mouth in the morning. 90 tablet 1 Active omeprazole (PriLOSEC) [address] capsuleIndicati ons:Chronic GERD TAKE 1 CAPSULE BY MOUTH TWICE DAILY IN THE MORNING AND IN THE EVENING WITH FOOD 180 capsule 1 Active amLODIPine (Norvasc) 10 MG tabletIndicatio ns:Primary hypertension Take 1 tablet (10 mg) by mouth in the morning. 90 tablet 1 Active lidocaine (Lidoderm) 5 % patchIndication s:Chronic neck pain Apply 1 patch topically See administration instructions. Remove & discard patch within 12 hours or as directed by MD. 30 patch 5 Active Continuous Glucose [employer] (FreeStyle Gurmeet 2 Oakley) deviceIndicatio ns:Type 2 diabetes mellitus with chronic kidney disease on chronic dialysis, with long-term current use of insulin ([facility]) Use for continuous glucose monitoring per package [...] with long-term current use of insulin ([facility]) USE DIRECTED TO TEST BLOOD SUGAR EVERY 8 HOURS CHANGE EVERY 14 DAYS 6 each 3 Active cyanocobalamin (Vitamin B-12) 1000 MCG tabletIndicatio ns:B12 deficiency Take 1 tablet (1,000 mcg) by mouth 2 (two) times a week. 8 tablet 11 024 2024 Active semaglutide (Ozempic, 1 MG/DOSE,) 4 MG/3ML solution pen-injectorInd ications:Type 2 Diabetes Mellitus Inject 1 mg under the skin 1 (one) time per week. 3 mL 11 024 Active insulin glargine (Lantus SoloStar) 100 UNIT/ML penIndications: Type 2 diabetes mellitus with chronic kidney disease on chronic dialysis, with long-term current use of insulin ([facility]) INJECT 28 UNITS SUBCUTANEOUSLY ONCE DAILY 15 mL 3 024 Active atorvastatin (Lipitor) 80 MG tablet Take 1 tablet (80 mg) by mouth at bedtime. 90 tablet 3 024 Active colchicine 0.6 MG tabletIndicatio ns:Pericardial effusion Take 1/2 tablet once daily. 45 tablet 3 024 Active Accu-Chek Softclix Lancets lancetsIndicati ons:Type 2 diabetes mellitus with other specified complication, with long-term current use of insulin ([facility]) TEST BLOOD SUGAR 3 TIMES PER DAY 100 each 025 Active Alcohol Swabs (Easy Touch Alcohol Prep Medium) 70 % padsIndications :Type 2 diabetes mellitus with other specified complication, with long-term current use of insulin (CMS/[facility]) Use up to 4 daily as directed 100 each 025 Active glucose blood (FreeStyle Precision Andrés Test) test stripIndication s:Type 2 diabetes mellitus with other specified complication, with long-term current use of insulin ([facility]) Use to test blood sugar up to 3 times daily, as directed 100 each 025 Active zolpidem (Ambien) 10 MG tabletIndicatio ns:Anxiety TAKE 1 TABLET BY MOUTH AT BEDTIME NEEDED FOR SLEEP Do not start before July 23, 2024. 28 tablet 025 Active clonazePAM (KlonoPIN) 1 MG tabletIndicatio ns:Anxiety TAKE 1 TABLET BY MOUTH TWICE DAILY FOR 28 DAYS 56 tablet 025 Active oxyCODONE-aceta minophen (Percocet) 10-325 MG tabletIndicatio ns:Chronic neck pain TAKE 1 TABLET BY MOUTH EVERY 4 HOURS NEEDED FOR SEVERE PAIN FOR 28 DAYS 168 tablet 025 Active clotrimazole (Lotrimin) 1 % cream APPLY TO THE AFFECTED AREA(S) TWICE DAILY IN THE MORNING AND IN THE EVENING 60 g 025 Active Viagra 100 MG tabletIndicatio ns:Erectile dysfunction, unspecified erectile dysfunction type TAKE 1 TABLET 1 HOUR BEFORE SEXUAL RELATIONS ONCE DAILY NEEDED. 10 tablet 025 Active Pentips Generic Pen Comstock 32G X 4 MM miscIndications :Type 2 diabetes mellitus with other specified complication, with long-term current use of insulin ([facility]) USE DIRECTED FOUR TIMES DAILY 100 each 3 025 Active sildenafil (Viagra) 100 MG tabletIndicatio ns:Erectile dysfunction, unspecified erectile dysfunction type Take 1 tablet (100 mg) by mouth if needed each day for erectile dysfunction. 10 tablet 024 2024 Discontinued BD Pen Needle Katerina U/F 32G X 4 MM miscIndications :Type 2 diabetes mellitus with other specified complication, with long-term current use of insulin ([facility]) USE DIRECTED FOUR TIMES DAILY 100 each 5 024 2024 Discontinued clotrimazole (Lotrimin) 1 % cream Apply to Affected Areas twice daily in the morning and evening 60 g 1 024 2024 Discontinued clonazePAM (KlonoPIN) 1 MG tabletIndicatio ns:Anxiety TAKE 1 TABLET BY MOUTH TWICE DAILY FOR 28 DAYS, 56 tablet 025 2024 Discontinued oxyCODONE-aceta minophen (Percocet) 10-325 MG tabletIndicatio ns:Chronic neck pain TAKE 1 TABLET BY MOUTH EVERY 4 HOURS NEEDED FOR SEVERE PAIN FOR UP TO 28 DAYS 168 tablet 025 2024 Discontinued zolpidem (Ambien) 10 MG tabletIndicatio ns:Anxiety TAKE 1 TABLET BY MOUTH EVERY DAY AT BEDTIME NEEDED FOR SLEEP 28 tablet 025 2024 Discontinued acetaminophen (Tylenol 8 Hour) 650 MG ER tablet Take 1 tablet (650 mg) by mouth every 8 (eight) hours if needed for moderate pain for up to 10 days. Do not crush, chew, or split. 15 tablet 025 2024 chlorhexidine (Peridex) 0.12 % solution Use 15 mL in the mouth or throat if needed in the morning, at noon, and at bedtime (PROPHYLAXIS) for up to 5 days. 110 mL 025 2024 amoxicillin (Amoxil) 500 MG capsule Take 1 capsule (500 mg) by mouth every 8 (eight) hours for 7 days. 21 capsule 025 2024 ibuprofen 800 MG tablet Take 1 tablet (800 mg) by mouth if needed in the morning, at noon, and at bedtime for mild pain or moderate pain for up to 5 days. 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 05/08/2024 Hyperlipidemia, unspecified 05/08/2024 Hypothyroidism, unspecified 05/08/2024 Iron deficiency anemia, unspecified 05/08/2024 Acquired absence of kidney 03/23/2024 Personal history of nicotine dependence 03/23/20 24 Anemia in chronic kidney disease 03/23/2024 Old myocardial infarction 03/23/2024 Unspecified atrial fibrillation 03/23/2024 H/O umbilical hernia repair 03/05/2024 Renal cell carcinoma 03/05/2024 Type 2 diabetes mellitus wit h kidney complication, with long-term current use of insulin 03/05/2024 ESRD (end stage renal disease) 03/05/2024 Overview (07/24/2024): Dialysis start 12/17/2021 Hypertension 03/05/2024 H/O right nephrectomy 03/05/2024 Moderate depressive disorder 05/31/2023 Assessment & [...] in intervention, Patient to reach out to [facility] team as needed, and Comply with medication. [...] Acute kidney injury superimp osed on CKD ([facility]) 02/03/2023 02/03/2023 Depression 02/03/2023 02/03/2023 Radiculitis 02/03/2023 [...] unspecified 08/30/20222022 Shortness of breath 08/30/2022 02/04/20 Encounter for immunization 08/30/2022 0 02/03/2023 Fever, [...] Encounters Date Type Department Care Team Description 08/08/2024 Refill [facility] [address] [place] [address] Macie Link DO Hypothyroidism, unspecified type; Chronic GERD 08/06/2024 Telephone [facility] [address] [place] [address] Macie Link DO Durable Medical Equipment 08/02/2024 Telephone [facility] [place] [address] Macie Link DO telephone call 08/02/2024 Travel 07/26/2024 1:30 PM EST Office Visit [facility] [place], [place] [address] Justin Anne, DMD 07/26/2024 Telephone [facility] [place] [address] Macie Link DO Appointment Request 07/25/2024 Telephone [facility] [place] [place] [address] Justin Anne, DMD 07/24/2024 10:00 AM EST Office Visit [facility] [place], [place] [address] Hancock-Head[place], Karemn, DDS Bruxism (Primary Dx); Open fracture of tooth, initial encounter 07/21/2024 Refill [facility] [place] [address] Macie Link DO Type 2 diabetes mellitus with other specified complication, with long-term current use of insulin ([facility]) 07/18/2024 Refill [facility] [place] [address] Macie Link DO Anxiety; Chronic neck pain; Erectile dysfunction, unspecified erectile dysfunction type 06/25/2024 Refill [facility] [place] [address] Catherine Madera MD Anxiety; Chronic neck pain 06/25/2024 Telephone [facility] [place] [address] Macie Link DO Med Refill 06/22/2024 Refill [facility] [place] [address] Catherine Madera MD Anxiety; Chronic neck pain 06/19/2024 9:30 AM EST Clinical Support [facility] [place] [address] April Murrell RN Chronic neck pain (Primary Dx) 06/19/2024 Orders Only [facility] [address] [place], [place] [address] Macie Likn DO 06/19/2024 Telephone [facility] [address] [place] [address] April Murrell, PADILLA BPI & CLAIRE Scoring; Abnormal UTOX 06/19/2024 Travel 06/19/2024 Telephone [facility] [address] [place] [address] April Murrell RN Recommend CARDIAC CATH LAB RADIOLOGY TECHNOLOGIST Tier 2 06/15/2024 1:30 PM EST Office Visit [facility] [address] [facility] [place] [place] [address] Justin Anne, DMD 05/31/2024 3:00 PM EST Office Visit [facility] [address] [place], [place] [address] Justin Anne, DMD 05/25/2024 Telephone [facility] [address] [facility] [place] [address] Anum Sams RN Dexcom 05/24/2024 Refill [facility] [address] [place] [address] Macie Link DO Anxiety; Chronic neck pain 05/24/2024 Refill [facility] [address] [place] [address] Macie Link DO Anxiety 05/24/2024 Refill [facility] [address] [facility] [place] [address] Sobia Crooks MD Chronic neck pain 05/24/2024 Refill [facility] [address] [facility] [place] [address] Macie Link DO Pericardial effusion 05/21/2024 Refill [facility] [address] [facility] [place] [address] Flor Clark, DerikD from Last 3 Months Immunizations Name Administration Dates Next Due COVID-19 Non-US Vaccine, Pro duct Unknown 02/23/2024 Hep B, adult 12/19/2014,05/22/2014,04/03/2014 HepB-CpG 12/29/2022,,10/04/2022,09/10 Influenza High-dose Quadriva lent Preservative Free 02/23/2024 [...] Sign Reading Time Taken Comments Blood Pressure 130/68 07/26/2024 1:13 PM EST Pulse 65 03/13/2024 9:02 AM [...] Care Team (Late st Contact Info) Description 08/15/2024 1:30 PM EDT Office Visit [facility] [address] [place] [address] Justin Anne, DMD [address] [place] [address] 09/04/2024 2:30 PM EDT Medication Management [facility] [address] [place] [address] Flor Clark, DerikD [address] [place] [address] 09/11/2024 9:45 AM EDT Office Visit [facility] [address] [place] [address] Macie Link DO [address] [place] [address] 09/13/2024 9:00 AM EDT Clinical Support [address] [phone] April Murrell, RN 09/24/2024 3:00 PM EDT Office Visit [facility] [address] [place] [address] Trina Arrieta Health Maintenance Due Date Last [...] Additional history exists Eye Exam 11/02/2024 11/03/2023, 10/2023, 11/03/2023, Additional history exists Lipid Panel 11/02/2024 11/03/2023, 12/09/2020 Depression Screening 12/19/2024 12/20/2023, 12/20/19 24 Colonoscopy 03/11/2025 02/23/2022, 02/25/2016 Colorectal Cancer Screening 03/11/2025 Dental X-Ray: Bitewings 03/20/2025 03/19/20, 03/09/2024, 12/11/2014, Additional history exists Tobacco Screening 07/26/2025 07/26/2024 Dental X-Ray: Full Mouth 03/20/2027 03/19/2024, 11/27 DTaP/Tdap/Td Vaccines (3 - Td or Tdap) 02/24/2032 02/23/2022, 02/04/2012, 11/10/2000, Additional history exists HIV Screening Completed 12/09/2020, 07/18/2019 Hepatitis C Screening Completed 12/09/2020, 020 Zoster Vaccines Completed 11/24/2021, 09/17/2021 Hepatitis B Vaccines Completed 12/29/2022, 11/03/2022, 10/04/2022, Additional history exists RSV Patients and Patients Aged 60 years or older Completed 08/18/2023 Pneumococcal Vaccine: 50+ Years Completed 12/26/2023, 06/22/2023, 05/28/2022, Additional history exists [...] Priority Date/Time Associated Diagnosis Comments NO CHARGE VISIT Routine 07/26/2024 1:30 PM EST CASE PRESENTATION, DETAILED AND EXTENSIVE TREATMENT PLANNING Routine 07/24/2024 10:00 AM EST Bruxism Open fracture of tooth, initial encounter 20 ENDODONTIC THERAPY, PREMOLAR TOOTH Routine 07/24/2024 10:00 AM EST Bruxism Open fracture of tooth, initial encounter POCT WOODY-14 URINE DRUG SCREEN Routine 06/19/2024 9:21 AM EST Chronic neck pain DRUG MONITORING, BENZODIAZEPINES, QUANTITATIVE, URINE Routine 06/19/2024 9:00 AM EST 14 CROWN - PORCELAIN/CERAMIC Routine 06/15/2024 1:30 PM EST CASE PRESENTATION, DETAILED AND EXTENSIVE TREATMENT PLANNING Routine 06/15/2024 1:30 PM EST POCT GLYCATED HEMOGLOBIN, TOTAL Routine 06/07/2024 2:10 PM EST Type 2 diabetes mellitus with other specified complication, with long-term current use of insulin ([facility]) NO CHARGE PROCEDURE Routine 05/31/2024 3 :00 PM EST INTRAORAL - COMPLETE SERIES OF RADIOGRAPHIC IMAGES Routine 03/19/2024 3:00 PM EDT PERIODIC ORAL EVALUATION - ESTABLISHED PATIENT Routine 03/19/2024 3:00 PM EDT LIPID PANEL, [...] - 06/19/2024 9:21 AM EST UTOX cup Lot#[id number] Exp. 02/21/26 Internal Pass Control Macie Link DO POINT OF CARE TEST ENTER/EVENS T ORDERABLES Final Result * Drug Monitoring, Benzodiazepines, Quantitative, Urine (06/19/2024 9:00 AM EST) Nordiazepam, GCMS Urine NEGATIVE [facility] Oxazepam, GCMS Urine NEGATIVE [facility] Lorazepam GCMS Urine NEGATIVE [facility] Alprazolam, GCMS Urine NEGATIVE [facility] Alphahydroxytriazolam, GCMS Ur NEGATIVE [facility] Temazepam, GCMS Urine NEGATIVE [facility] Alphahydroxymidazolam, GCMS Ur NEGATIVE [facility] Aminoclonazepam, GCMS Urine 784 (H) [facility] Comment:REFERENCE RANGE: <25 ng/mL Flurazepam Metabolite,GCMS Ur NEGATIVE [facility] Benzodiazepines Comments SEE NOTE [facility] Comment:This drug testing is for medical treatment only.Analysis was performed as non-forensic testing andthese results should be used only by healthcareproviders to render diagnosis or treatment, or tomonitor progress of medical conditions.Benzodiazepines Notes:Aminoclonazepam detected is consistent with the use ofthe drug Clonazepam.LDT Notes:Confirmation tests were developed and their analyticalperformance characteristics have been determined by[facility]Bpro. It has not been cleared or approvedby the FDA. This assay has been validated pursuant tothe CLIA regulations and is used for clinical purposes.Healthcare Providers needing Interpretation assistance,please contact us at [phone] ([phone])M- F, 8am to 10pm ESTTHIS TEST PERFORMED AT:[facility] [address] [phone] DIRECTOR: DI SPARKS MD 06/19/2024 9:00 AM EST 06/19/2024 4:11 PM EST Macie Link DO LAB URINE ORDERABLES Final R esult [facility] [address] [place] [phone] * (ABNORMAL) POCT HGB A1C (06/07/2024 2:10 PM EST) Hemoglobin A1C 7.4(A) 4.0 - 6.0 % Blood 06/07/2024 2:10 PM EST Macie Link DO POINT OF CARE TEST ENTER/EVENS T ORDERABLES Final Result * (ABNORMAL) Lipid Panel, Standard (11/03/2023 10:32 AM EDT) Triglycerides 188(H) <150 mg/dL [facility] Comment:Desirable Triglyceri de: less than 150 mg/dLBorderline High Triglyceride 150-199 mg/dLHigh Triglyceride: 200-499 mg/dLVery High Triglyceride: greater than or equal to 5OO mg/dL Cholesterol 112 <200 mg/dL [facility] Comment:Desirable Cholestero l: less than 200 mg/dLBorderline High Cholesterol: 200-239 mg/dLHigh Cholesterol: greater than 239 mg/dL LDL Cholesterol Calculated 43 <100 mg/dL [facility] Comment:Desirable LDL: less than 100 mg/dLNear Optimal/Above Optimal LDL: 110- 129 mg/dLBorderline High LDL: 130-159 mg/dLHigh LDL: 160-189 mg/dLVery High LDL: greater than or equal to 190 mg/dL HDL Cholesterol 32(L) >40 mg/dL [facility] Comment:Desirable HDL: great er than 40 mg/dL Note: This HDL assay may give artificially low results in patients with liver disease. 11/03/2023 10:3 2 AM EDT 11/03/2023 11:21 AM EDT Macie Link DO LAB BLOOD ORDERABLES Final R esult [facility] [address] [place] [address] [phone] * Hm Colonoscopy (02/23/2022 7:37 AM EDT) Historical Provider HEALTH MAINTENANCE Final Result * HEPATITIS C AB W/REFL TO HCV RNA, QN, PCR (12/09/2020 10:36 AM EDT) HEPATITIS C ANTIBODY NON-REACT ALBINO NON-REACT ALBINO [facility] INDEX 0.01 <1.00 [facility] Comment: ?? HCV antibody was non-reactive. There is no laboratory ?? evidence of HCV infection. ?? In most cases, no further action is required. However, if recent HCV exposure is suspected, a test for HCV RNA (test code 03971) is suggested. ?? For additional information please refer to http://education.VisionGate/faq/TLL25t2 (This link is being provided for informational/ educational purposes only.) ?? 12/09/2020 10:3 6 AM EDT Macie Link DO HISTORICAL/NON ORDERABLE LAB S Final Result Performing Organization Address [facility] de Phone Number [facility] [address] * HIV 1/2 ANTIGEN/ANTIBODY,FOURTH GENERATION W/RFL (12/09/2020 10:36 AM EDT) HIV-1/2 ANTIGEN AND ANTIBODIES, 4TH GENERATION W/ REFLEX NON-REACT ALBINO NON-REACT ALBINO [facility] Comment: HIV-1 antigen and HIV-1/HIV-2 [...] ? For additional information please refer to http://education.VisionGate/faq/NTJ001 (This link is being provided for informational/ educational purposes only.) ? The performance of this assay has not been clinically validated in patients less than 2 years old. ?? 12/09/2020 10:3 6 AM EDT Macie Link DO LAB BLOOD ORDERABLES Final R esult Performing Organization Address [facility] de Phone Number [facility] [address] from Last 3 Months or Most Recently Relevant to Health Maintenance Insurance MEDICARE [facility] STANDARD AETNA MEDICARE REPLACEMENT DENTAL-[facility] MEDICAID STAND ADULT Care Teams Wholesale Loan Processor Relationship Specialty Start Date End Date Macie Link DO [address] [place] [address] PCP - General Family Medicine 05/30/18 Flor Clark, DerikD [address] [place] [address] Pharmacist Internal Medicine 08/18/23
--- OUTSIDE RECORDS SUMMARY | 2024-08-08 14:51 | XMS_ITS | Encounter Summary ---
Author Organization [employer] Address 75 [facility] 7t [place] [address] Care Team Providers Care Pipe Tester Name Role Phone Macie Link DO Primary Care Provider [phone] Flor Clark PharmD Unavailable [phone] Reason for Visit * Reason Comments Med Refill Encounter Details Date Type Department Care Team ([facility] st Contact Info) Description 03/30/2024 Refill [facility] [address] [place] [address] Macie Link DO [address] [place] [address] Seasonal allergic rhinitis, unspecified trigger Social History [...] Description 08/15/2024 1:30 PM EDT Office Visit [facility] ADULT DENTAL [address] [place] [address] Justin Anne, DMD [address] [place] [address] 09/04/2024 2:30 PM EDT Medication Management [facility] [address] [place] [address] Flor Clark, DerikD [address] [place] [address] 09/11/2024 9:45 AM EDT Office Visit [address] [address] Macie Link, [address] [place] [address] 09/13/2024 9:00 AM EDT Clinical Support [address] [address] April Murrell, RN 09/24/2024 3:00 PM EDT Office Visit [facility] [address] [place] [address] Trina Arrieta documented as of this encounter [...] documented as of this encounter Care Teams Pipe Tester Relationship Specialty Start Date End Date Macie Link DO [address] [place] [address] PCP - General Family Medicine 05/30/18 Flor Clark PharmD [address] [place] [address] Pharmacist Internal Medicine 08/18/23 documented as of this encounter
--- OUTSIDE RECORDS SUMMARY | 2024-08-08 14:51 | XMS_ITS | Encounter Summary ---
Author Organization [employer] Address 75 [facility] 7t [place] [address] Care Team Providers Care Wind Tunnel Technician Name Role Phone Macie Link DO Primary Care Provider [phone] Flor Clark PharmD Unavailable [phone] Reason for Visit * Reason Onset Date Comments Durable Medical Equipment 05/10/2022 Encounter Details Date Type Department Care Team (Late st Contact Info) Description 05/10/2022 Telephone [facility] MED[facility]INE 230 [place] [address] Macie Link DO 230 [place], [place] [phone] Durable Medical Equipment Social History Tobacco Use [...] will contact pt. * Telephone Encounter - Windy Mendoza - 05/10/2022 2:46 PM EST Message left at [facility] checking on status of Glucerna * Telephone Encounter - Xiao Fernandes - 05/10/2022 1:45 PM EST Tc from jesus from [facility] care requesting status on Glucerna . States pt has tried reaching [facility] and no response . Also caller is requesting a adjustable position bed. Best contact # [phone] documented in this encounter Plan of Treatment Upcoming Encounters Date Type Department Care Team (Late st Contact Info) Description 08/15/2024 1:30 PM EDT Office Visit [facility] ADULT DENTAL [address] [address] Justin Anne, SHAY [address] [place] [address] 09/04/2024 2:30 PM EDT Medication Management [facility] MED[facility] [address] [place] [address] Flor Clark, PharmD 230 [place] [address] 09/11/2024 9:45 AM EDT Office Visit [facility] [address] [place] [address] Macie Link DO [address] [place] [address] 09/13/2024 9:00 AM EDT Clinical Support [facility] [address] [place] [address] April Murrell, RN 09/24/2024 3:00 PM EDT Office Visit [facility] ADULT DENTAL [address] [place] [address] Trina Arrieta documented as of this encounter Visit Diagnoses Not on filedocumented in this encounter Care Teams Wind Tunnel Technician Relationship Specialty Start Date End Date Macie Link DO 230 [place] [address] PCP - General Family Medicine 05/30/18 Flor Clark, Jaspreet [address] [place] [address] Pharmacist Internal Medicine 08/18/23 documented as of this encounter
--- OUTSIDE RECORDS SUMMARY | 2024-08-08 14:51 | XMS_ITS | Encounter Summary ---
Author Organization [facility], Address [address] [place] [address] Phone Care Team Providers Care Brace End Mainspring Former Name Role Phone Macie Link DO Primary Care Provider Unava ilable Reason for Visit * Reason Comments Med Refill Encounter Details Date Type Department Care Team (Late st Contact Info) Description 07/23/2022 Refill [facility], [address] [place] [address] Romario Ford MD [address] [facility] [place] [phone] Social History Tobacco Use Types Packs/Day Years [...] on filedocumented in this encounter Care Teams Brace End Mainspring Former Relationship Specialty Start Date End Date Macie Link DO PCP - General 04/03/19 documented as of this encounter
--- OUTSIDE RECORDS SUMMARY | 2024-08-08 14:51 | XMS_ITS | Encounter Summary ---
Author Organization [employer] Address 75 [facility] 7t [place] [address] Care Team Providers Care Lens Cleaner Name Role Phone Macie Link DO Primary Care Provider [phone] Flor Clark PharmD Unavailable [phone] Reason for Visit * Reason Comments Med Refill Encounter Details Date Type Department Care Team ([facility] st Contact Info) Description 03/29/2024 Refill [facility] MED[facility]INE 230 [place] [address] Macie Link DO 230 [place] [address] Chronic neck pain Social History Tobacco Use [...] Description 08/15/2024 1:30 PM EDT Office Visit [facility] ADULT DENTAL [address] [place] [address] Justin Anne, DMD 230 [place] [address] 09/04/2024 2:30 PM EDT Medication Management [facility] [address] [place] [address] Flor Clark, PharmD [address] [place] [address] 09/11/2024 9:45 AM EDT Office Visit [address] [address] Macie Link, [address] [place] [address] 09/13/2024 9:00 AM EDT Clinical Support [address] [address] April Murrell, PADILLA 09/24/2024 3:00 PM EDT Office Visit [facility] ADULT DENTAL [address] [place] [address] Arrieta, Trina documented as of this encounter Goals Goal [...] documented as of this encounter Care Teams Lens Cleaner Relationship Specialty Start Date End Date Macie Link DO [address] [place] [address] PCP - General Family Medicine 05/30/18 Flor Clark PharmD [address] [place] [address] Pharmacist Internal Medicine 08/18/23 documented as of this encounter
--- OUTSIDE RECORDS SUMMARY | 2024-08-08 14:51 | XMS_ITS | Encounter Summary ---
Author Organization [employer] [facility] Address 75 [facility] 7t [place] [address] Care Team Providers Care Hose Inspector And Patcher Name Role Phone Macie Link DO Primary Care Provider Flor Clark PharmD Unavailable [phone] Encounter Details Date Type Department Care Team (Late st Contact Info) Description 07/21/2022 Telephone [facility] MEDICINE 230 [place] [address] Macie Link DO 230 [place] [address] Social History Tobacco Use Types Packs/Day Years [...] Description 08/15/2024 1:30 PM EDT Office Visit [facility] ADULT DENTAL 230 [place], [place] [phone] Justin Anne, DMD [facility] [place] [address] 09/04/2024 2:30 PM EDT Medication Management [address] [place] [address] Flor Clark PharmD [email or web address] [place] [address] 09/11/2024 9:45 AM EDT Office Visit [address] [place] [address] Macie Link DO 230 [email or web address] [place] [address] 09/13/2024 9:00 AM EDT Clinical Support [address] [address] April Murrell, PADILLA 09/24/2024 3:00 PM EDT Office Visit [facility] ADULT DENTAL [address] [place] [address] Trina Arrieta documented as of this encounter Visit Diagnoses Not on filedocumented in this encounter Additional Health Concerns Assessment Noted Time PHQ-9 Depression Total Score: 2 07/06/19 23 9:23 AM EST documented as of this encounter Care Teams Hose Inspector And Patcher Relationship Specialty Start Date End Date Macie Link DO [facility] [[email or web address] [place] [address] PCP - General Family Medicine 05/30/18 Flor Clark PharmD [facility] [place], [place] [phone] Pharmacist Internal Medicine 08/18/23 documented as of this encounter
--- OUTSIDE RECORDS SUMMARY | 2024-08-08 14:51 | XMS_ITS | Encounter Summary ---
Author Organization [employer] Address 75 [facility] 7t [place] [address] Care Team Providers Care Frit Burner Name Role Phone Fariba Macie LICEA Primary Care Provider Flor Clark PharmD Unavailable Encounter Details Date Type Department Care Team (Late st Contact Info) Description 05/25/2022 Orders Only [facility] & PEDS [address] [place] [address] Macie Stiles LPN Social History Tobacco Use [...] Department Care Team (Late Contact Info) Description 08/15/2024 1:30 PM EDT Office Visit [facility] ADULT DENTAL 230 [place] [address] Justin Anne, DMD 230 [place] [address] 09/04/2024 2:30 PM EDT Medication Management [facility] 230 [place] [address] PuiaFlor, PharmD 230 [place] [address] 09/11/2024 9:45 AM EDT Office Visit [facility] 230 [place] [address] Macie Link DO 230 [place] [address] 09/13/2024 9:00 AM EDT Clinical Support [facility] 230 [place] [address] April Murrell, PADILLA 09/24/2024 3:00 PM EDT Office Visit [facility] ADULT DENTAL 230 [place] [address] Trina Arrieta documented as of this encounter Visit Diagnoses Not on filedocumented in this encounter Care Teams Frit Burner Relationship Specialty Start Date End Date Macie Link DO [address] [place] [address] PCP - General Family Medicine 05/30/18 Flor Clark PharmD [address] [place] [address] Pharmacist Internal Medicine 08/18/23 documented as of this encounter
--- OUTSIDE RECORDS SUMMARY | 2024-08-08 14:51 | XMS_ITS | Encounter Summary ---
Author Organization [employer] Address 75 [facility] 7t [place] [address] Care Team Providers Care Dishwasher Busser Name Role Phone Macie Link DO Primary Care Provider [phone] Flor Clark PharmD Unavailable [phone] Reason for Visit * Reason Comments Med Refill Encounter Details Date Type Department Care Team ([facility] st Contact Info) Description 03/05/2024 Refill [facility] MEDICINE [address] [place] [address] Macie Link DO 230 [place] [address] Seasonal allergic rhinitis, unspecified trigger Social History [...] Description 08/15/2024 1:30 PM EDT Office Visit [facility] ADULT DENTAL [address] [place] [address] Justin Anne, DMD [address] [place] [address] 09/04/2024 2:30 PM EDT Medication Management [facility] MEDICINE [address] [place] [address] Flor Clark, DerikD [address] [place] [address] 09/11/2024 9:45 AM EDT Office Visit [address] [address] Macie Link, [address] [place] [address] 09/13/2024 9:00 AM EDT Clinical Support [address] [address] April Murrell, RN 09/24/2024 3:00 PM EDT Office Visit [facility] ADULT DENTAL [address] [place] [address] Trina Arrieta documented as of this encounter [...] documented as of this encounter Care Teams Dishwasher Busser Relationship Specialty Start Date End Date Macie Link DO 230 [place] [address] PCP - General Family Medicine 05/30/18 Flor Clark PharmD 230 [place] [address] Pharmacist Internal Medicine 08/18/23 documented as of this encounter
--- OUTSIDE RECORDS SUMMARY | 2024-08-08 14:51 | XMS_ITS | Encounter Summary ---
Author Organization [employer] Address 75 [facility] 7t [place] [address] Care Team Providers Care Paedodontist Name Role Phone Fariba Macie LICEA Primary Care Provider Flor Clark PharmD Unavailable Encounter Details Date Type Department Care Team (Late st Contact Info) Description 06/16/2022 Orders Only [facility] MED & PEDS [address] [place] [address] Macie Stiles LPN Social History Tobacco Use [...] Description 08/15/2024 1:30 PM EDT Office Visit [facility] ADULT DENTAL 230 [place] [address] Justin Anne, DMD [address] [place] [address] 09/04/2024 2:30 PM EDT Medication Management [facility] MED[facility] [address] [place] [address] PuiaKaylynsa, PharmD 230 [place] [address] 09/11/2024 9:45 AM EDT Office Visit [facility] [address] [place] [address] Macie Link DO 230 [place] [address] 09/13/2024 9:00 AM EDT Clinical Support [facility] [address] [place] [address] April Murrell, PADILLA 09/24/2024 3:00 PM EDT Office Visit [facility] ADULT DENTAL [address] [place] [address] Trina Arrieta documented as of this encounter Visit Diagnoses Not on filedocumented in this encounter Care Teams Paedodontist Relationship Specialty Start Date End Date Macie Link DO [address] [place] [address] PCP - General Family Medicine 05/30/18 Flor Clark PharmD [address] [place] [address] Pharmacist Internal Medicine 08/18/23 documented as of this encounter
--- OUTSIDE RECORDS SUMMARY | 2024-08-08 14:51 | XMS_ITS | Encounter Summary ---
Author Organization [employer] [facility] Address 75 [facility] 7t [place] [address] Care Team Providers Care Citrix Consultant Name Role Phone Macie Link DO Primary Care Provider [phone] Flor Clark PharmD Unavailable [phone] Encounter Details Date Type Department Care Team (Late st Contact Info) Description 06/10/2022 Telephone [facility] MED[facility]INE 230 [place] [address] Macie Lnik DO 230 [place] [address] Social History Tobacco Use Types Packs/Day Years [...] Description 08/15/2024 1:30 PM EDT Office Visit [facility] ADULT DENTAL [address] [place] [address] Justin Anne DMD 230 [place] [address] 09/04/2024 2:30 PM EDT Medication Management [facility] MED[facility] [address] [place] [address] PuiaFlor, PharmD 230 [place] [address] 09/11/2024 9:45 AM EDT Office Visit [facility] [address] [place] [address] Macie [place] [address] 09/13/2024 9:00 AM EDT Clinical Support [facility] [address] [place] [address] April Murrell, PADILLA 09/24/2024 3:00 PM EDT Office Visit [facility] ADULT DENTAL [address] [place] [address] Trina Arrieta documented as of this encounter Visit Diagnoses Not on filedocumented in this encounter Care Teams Citrix Consultant Relationship Specialty Start Date End Date Macie Link DO [address] [place] [address] PCP - General Family Medicine 05/30/18 Flor Clark PharmD [address] [place] [address] Pharmacist Internal Medicine 08/18/23 documented as of this encounter
--- OUTSIDE RECORDS SUMMARY | 2024-08-08 14:51 | XMS_ITS | Encounter Summary ---
Author Organization [employer] [facility] Address 75 [facility] 7t [place] [address] Care Team Providers Care Forms Analysis Manager Name Role Phone Macie Link DO Primary Care Provider [phone] Flor Clark PharmD Unavailable [phone] Reason for Visit * Reason Comments Med Refill Encounter Details Date Type Department Care Team (Late st Contact Info) Description 08/13/2022 Refill [facility] MEDICINE [address] [place] [address] Macie Link DO 230 [place] [address] Anxiety Social History Tobacco Use Types Packs/Day [...] Description 08/15/2024 1:30 PM EDT Office Visit [facility] ADULT DENTAL [address] [place] [address] Justin Anne DMD [address] [facility] [place] [address] 09/04/2024 2:30 PM EDT Medication Management [facility] [address] [facility] [place] [address] Flor Clark PharmD [address] [facility] [place] [address] 09/11/2024 9:45 AM EDT Office [address] [place] [address] Macie Link DO [address] [facility] [place] [address] 09/13/2024 9:00 AM EDT Clinical Support [address] [address] April Murrell, PADILLA 09/24/2024 3:00 PM EDT Office Visit [facility] ADULT DENTAL [address] [place], [place] [address]k[address] [place] [address] Trina Arrieta documented as of this encounter Visit Diagnoses Diagnosis Anxiety Anxiety state, unspecified documented in this encounter Additional Health Concerns Assessment Noted Time PHQ-9 Depression Total Score: 2 07/06/19 23 9:23 AM EST documented as of this encounter Care Teams Forms Analysis Manager Relationship Specialty Start Date End Date Macie Link DO [facility] [place] [address] PCP - General Family Medicine 05/30/18 Flor Clark PharmD [facility] [place] [address] Pharmacist Internal Medicine 08/18/23 documented as of this encounter
--- OUTSIDE RECORDS SUMMARY | 2024-08-08 14:51 | XMS_ITS | Encounter Summary ---
Author Organization [employer] Address 75 [facility] 7t [place] [address] Care Team Providers Care Clinical Support Specialist Name Role Phone Macie Link DO Primary Care Provider [phone] Flor Clark PharmD Unavailable [phone] Reason for Visit * Reason Comments Med Refill Encounter Details Date Type Department Care Team ([facility] st Contact Info) Description 05/04/2024 Refill [facility] MEDICINE 230 [place] [address] Macie Link DO 230 [place] [address] Hypothyroidism, unspecified type; Chronic GERD Social History [...] Description 08/15/2024 1:30 PM EDT Office Visit [facility] ADULT DENTAL [address] [place] [address] Jusitn Anne, DMD [address] [place] [address] 09/04/2024 2:30 PM EDT Medication Management [facility] MEDICINE [address] [place] [address] Flor Clark, DerikD [address] [place] [address] 09/11/2024 9:45 AM EDT Office Visit [address] [address] Macie Link, [address] [place] [address] 09/13/2024 9:00 AM EDT Clinical Support [address] [address] April Murrell, RN 09/24/2024 3:00 PM EDT Office Visit [facility] ADULT DENTAL [address] [place] [address] Trina Arrieta documented as of this encounter [...] as of this encounter Care Teams Clinical Support Specialist Relationship Specialty Start Date End Date Macie Link DO 230 [place] [address] PCP - General Family Medicine 05/30/18 Flor Clark PharmD 230 [place] [address] Pharmacist Internal Medicine 08/18/23 documented as of this encounter
--- OUTSIDE RECORDS SUMMARY | 2024-08-08 14:51 | XMS_ITS | Encounter Summary ---
Author Organization [employer] Address 75 [facility] 7t [place] [address] Care Team Providers Care Electrification Adviser Name Role Phone Fariba Macie Primary Care Provider Flor Clark PharmD Unavailable Encounter Details Date Type Department Care Team (Late st Contact Info) Description 08/13/2022 Orders Only [facility] MED & PEDS [address] [place], [place] [phone] Cayla Sandoval MD 505 [place] [address] Type 2 diabetes mellitus with chronic kidney disease on chronic dialysis, with long-term current use of insulin ([facility]) (Primary Dx) Social History Tobacco Use Types [...] Description 08/15/2024 1:30 PM EDT Office Visit [facility] ADULT DENTAL 230 [place] [address] Justin Anne, DMD [address] [place] [address] 09/04/2024 2:30 PM EDT Medication Management [facility] MED[facility] [address] [place] [address] Flor Clark PharmD [address] [place] [address] 09/11/2024 9:45 AM EDT Office Visit [facility] MEDICINE [address] [place] [address] Macie Link DO [address] [place] [address] 09/13/2024 9:00 AM EDT Clinical Support [address] [address] April Murrell, RN 09/24/2024 3:00 PM EDT Office Visit [facility] ADULT DENTAL [address] [place] [address] Trina Arrieta documented as of this encounter Visit Diagnoses Diagnosis Type 2 diabetes mellitus with chronic kidney disease on chronic dialysis, with long-term current use of insulin ([facility])- Primary documented in this encounter Additional Health Concerns Assessment Noted Time PHQ-9 Depression Total Score: 2 07/06/19 23 9:23 AM EST documented as of this encounter Care Teams Electrification Adviser Relationship Specialty Start Date End Date Macie Link DO [address] [place] [address] PCP - General Family Medicine 05/30/18 Flor Clark PharmD 230 [place] [address] Pharmacist Internal Medicine 08/18/23 documented as of this encounter
--- OUTSIDE RECORDS SUMMARY | 2024-08-08 14:51 | XMS_ITS | Encounter Summary ---
Author Organization [email or web address] Address [address] [facility] [address] [facility] [address] 7t [place] [address] Care Team Providers Care Transition Program Manager Name Role Phone TiffanyMacie hamilton Primary Care Provider [phone] Flor Clark PharmD Unavailable [phone] Encounter Details Date Type Department Care Team (Late st Contact Info) Description 07/30/2022 Orders Only [facility] MEDICINE 230 [place] [address] Cassie Jeronimo MD [address] [place] [address] Chronic neck pain (Primary Dx) Social History [...] Description 08/15/2024 1:30 PM EDT Office Visit [facility] ADULT DENTAL 230 [place] [address] Justin Anne, DMD 230 [place] [address] 09/04/2024 2:30 PM EDT Medication Management [address] [address] Flor Clark PharmD [address] [place] [address] 09/11/2024 9:45 AM EDT Office Visit [address] [address] Macie Link DO 230 [place] [address] 09/13/2024 9:00 AM EDT Clinical Support [address] [address] Arpil Murrell, RN 09/24/2024 3:00 PM EDT Office Visit [facility] ADULT DENTAL [address] [place] [address] Trina Arrieta documented as of this encounter Visit Diagnoses Diagnosis Chronic neck pain- Primary Cervicalgia documented in this encounter Additional Health Concerns Assessment Noted Time PHQ-9 Depression Total Score: 2 07/06/19 23 9:23 AM EST documented as of this encounter Care Teams Transition Program Manager Relationship Specialty Start Date End Date Macie Link DO [address] [place] [address] PCP - General Family Medicine 05/30/18 Flor Clark PharmD [address] [place] [address] Pharmacist Internal Medicine 08/18/23 documented as of this encounter
--- OUTSIDE RECORDS SUMMARY | 2024-08-08 14:51 | XMS_ITS | Clinical Summary ---
Author Organization [facility], Address [address] [place] [address] Phone Care Team Providers Care Breast Surgeon Name Role Phone Macie Link DO Primary [...] Encounters Date Type Department Care Team Description 08/01/2024 Treatment [facility], [address] [address] Romario Ford MD End stage renal disease; Dependence on renal dialysis 07/04/2024 Treatment [facility], [place] [address] Romario Ford MD 06/20/2024 Treatment [facility], [address] [place] [address] Romario Ford MD 06/18/2024 Treatment [facility], [address] [place] [address] Romario Ford MD 06/06/2024 Treatment [facility], [address] [place] [address] Romario Ford MD 05/14/2024 Treatment [facility], [place] [place] [address] Romario Ford MD from Last 3 Months [...] Health Maintenance Due Date Last Done Comments Colorectal Cancer Screening: Annual FOBT 09/21/2008 Colorectal Cancer Screening: Colonoscopy 09/21/2008 Colorectal Cancer Screening: Sigmoidoscopy 09/21/2008 Diabetes: Ophthalmology Exam 05/15/2019 Diabetes: Pedal Pulse Checked 05/15/2019 Diabetes: Sensory Foot Exam 05/15/2019 Diabetes: Visual Foot Exam 05/15/2019 Hepatitis B Vaccine (4 of 4 - Risk Dialysis 4-dose series) 12/30/2023 12/29/2022, 11/03/2022, 10/04/2022, Additional history exists Influenza Vaccine (#1) 2024 , 02/20/2022, 02/23/2021, Additional history exists Diabetes: Hemoglobin A1C 09/05/2024 025, 03/15/2024, 11/30/2023, Additional history exists Pneumococcal Vaccine: Pediat rics (0 to 5 Years) and At-Risk Patients (6 to 64 Years) Completed 12/26/2023, 06/22/2023, 05/28/2022, Additional history exists Procedures Procedure Name Priority Date/Time Associated Diagnosis Comments HEMATOLOGY Routine 12/21/2023 SPECIAL CHEMISTRY Routine 11/30/2023 from Last 3 Months or Most Recently Relevant to Health Maintenance Results * (ABNORMAL) HEMATOLOGY (12/21/2023) Hemoglobin 10.1(L) 14.0 - 18.0 g/dL [facility] Hemoglobin x 3 30.3(L) 42.0 - 54.0 % [facility] 12/21/2023 12/22/2023 8:1 6 AM EDT Narrative [facility] - 12/22/2023 Unless otherwise specified, test(s) performed at: [facility], [address] [place], [place] [id number] REVOLVING FIELD ASSEMBLER: Jos Curran M.D. For any questions, please call customer service at FREQUENCY:OTHER Resulting Agency Comment Specimen source: Blood Anastacio Nickerson MD LAB BLOOD ORDERABLES Final Re sult Performing Organization Address [facility] de Phone Number SHERPANDIPITY See order comments or contact performing lab Unknown, [place] * (ABNORMAL) SPECIAL CHEMISTRY (11/30/2023) Hemoglobin A1C 7.3(H) 4.8 - 5.9 % [facility] 11/30/2023 12/02/2023 1:1 5 PM EDT Narrative [facility] - 12/03/2023 Unless otherwise specified, test(s) performed at: [facility], [address] [place] [id number] REVOLVING FIELD ASSEMBLER: Jos Curran M.D. For any questions, please call customer service at FREQUENCY:MONTHLY Resulting Agency Comment Specimen source: Blood Anastacio Nickerson MD LAB BLOOD BANK TEST ORDERABLE S Final Result Performing Organization Address [facility] Co de Phone Number SHERPANDIPITY See order comments or contact performing lab Unknown, [place] from Last 3 Months or Most Recently Relevant to Health Maintenance [place] Care Teams Breast Surgeon Relationship Specialty Start Date End Date Macie Link DO PCP - General 04/03/19
--- OUTSIDE RECORDS SUMMARY | 2024-08-08 14:51 | XMS_ITS | Encounter Summary ---
Author Organization [employer] Address [address] [facility] 7t [place] [address] Care Team Providers Care Environmental Field Services Technician Name Role Phone Macie Link DO Primary Care Provider [phone] Flor Clark PharmD Unavailable [phone] Reason for Visit * Reason Comments Med Refill Encounter Details Date Type Department Care Team (Late st Contact Info) Description 02/06/2024 Refill [facility] [address] [place] [address] Macie Link DO 230 [place] [address] Chronic neck pain; Anxiety Social History Tobacco [...] Description 08/15/2024 1:30 PM EDT Office Visit [facility] [address] [place] [address] Justin Anne, DMD [address] [place] [address] 09/04/2024 2:30 PM EDT Medication Management [facility] [address] [place] [address] Flor Clark, DerikD [address] [place] [address] 09/11/2024 9:45 AM EDT Office Visit [address] [address] Macie Link, [address] [place] [address] 09/13/2024 9:00 AM EDT Clinical Support [address] [address] April Murrell, PADILLA 09/24/2024 3:00 PM EDT Office Visit [facility] [address] [place] [address] Trina Arrieta documented as of this encounter [...] documented as of this encounter Care Teams Environmental Field Services Technician Relationship Specialty Start Date End Date Macie Link DO [address] [place] [address] PCP - General Family Medicine 05/30/18 Flor Clark PharmD 230 [place] [address] Pharmacist Internal Medicine 08/18/23 documented as of this encounter
--- OUTSIDE RECORDS SUMMARY | 2024-08-08 14:51 | XMS_ITS | Encounter Summary ---
Author Organization [facility], Address [address] [place] [address] Phone Care Team Providers Care Clay Pigeon Setter Name Role Phone Macie Link DO Primary Care Provider Unava ilable Reason for Visit * Reason Comments Med Refill Encounter Details Date Type Department Care Team (Late st Contact Info) Description 09/08/2022 Refill [facility], [address] [place] [address] Romario Ford MD [address] [facility] [place] [address] Social History Tobacco Use Types Packs/Day Years [...] on filedocumented in this encounter Care Teams Clay Pigeon Setter Relationship Specialty Start Date End Date Macie Link DO PCP - General 04/03/19 documented as of this encounter
--- OUTSIDE RECORDS SUMMARY | 2024-08-08 14:51 | XMS_ITS | Encounter Summary ---
Author Organization mention [facility] Address [address] [facility] 7t [place] [address] Care Team Providers Care Quality Control Tester Name Role Phone ArcadioMacie smith Primary Care Provider PuFlor quinones PharmD Unavailable [phone] Encounter Details Date Type Department Care Team (Late st Contact Info) Description 05/18/2022 Orders Only [facility] [address] [place] [address] Mariella Diallo LPN Social History Tobacco Use [...] Description 08/15/2024 1:30 PM EDT Office Visit [facility] [address] [place] [address] Justin Anne, DMD [address] [place] [address] 09/04/2024 2:30 PM EDT Medication Management [facility] [address] [place] [address] PuiaGeovaniFlor, PharmD 230 [place] [address] 09/11/2024 9:45 AM EDT Office Visit [facility] [address] [place] [address] Macie Link DO 230 [place] [address] 09/13/2024 9:00 AM EDT Clinical Support [facility] [address] [place] [address] April Murrell, PADILLA 09/24/2024 3:00 PM EDT Office Visit [facility] [address] [place] [address] Trina Arrieta documented as of this encounter Visit Diagnoses Not on filedocumented in this encounter Care Teams Quality Control Tester Relationship Specialty Start Date End Date Macie Link DO [address] [place] [address] PCP - General Family Medicine 05/30/18 Flor Clark PharmD [address] [place] [address] Pharmacist Internal Medicine 08/18/23 documented as of this encounter
--- OUTSIDE RECORDS SUMMARY | 2024-08-08 14:51 | XMS_ITS | Encounter Summary ---
Author Organization [facility] Address [address] [facility] 7t [place] [address] Care Team Providers Care Fire Engine Operator Name Role Phone Macie Link DO Primary Care Provider [phone] Flor Clark PharmD Unavailable Encounter Details Date Type Department Care Team (Late st Contact Info) Description 07/27/2022 Abstract [facility] 230 [place] [address] Macie Link DO 230 [place] [address] Social History Tobacco Use Types Packs/Day Years [...] Description 08/15/2024 1:30 PM EDT Office Visit [facility] [address] [place], [place] [phone] Justin Anne, DMD [address] [facility] [place] [address] 09/04/2024 2:30 PM EDT Medication Management [address] [place] [address] Flor Clark PharmD [address] [facility] [place] [address] 09/11/2024 9:45 AM EDT Office Visit [address] [place] [address] Macie Link DO [address] [facility] [place] [address] 09/13/2024 9:00 AM EDT Clinical Support [address] [address] April Murrell, PADILLA 09/24/2024 3:00 PM EDT Office Visit [facility] [address] [place] [address] Trina Arrieta documented as of this encounter Visit Diagnoses Not on filedocumented in this encounter Additional Health Concerns Assessment Noted Time PHQ-9 Depression Total Score: 2 07/06/19 23 9:23 AM EST documented as of this encounter Care Teams Fire Engine Operator Relationship Specialty Start Date End Date Macie Link DO [facility] [place] [address] PCP - General Family Medicine 05/30/18 Flor Clark PharmD [facility] [place], [place] [phone] Pharmacist Internal Medicine 08/18/23 documented as of this encounter
--- OUTSIDE RECORDS SUMMARY | 2024-08-08 14:52 | XMS_ITS | Encounter Summary ---
Author Organization [facility] Address [address] [facility] 7t [place] [address] Care Team Providers Care Hot Box Operator Name Role Phone Macie Link DO Primary Care Provider Flor Clark PharmD Unavailable Reason for Visit * Reason Comments Med Refill Encounter Details Date Type Department Care Team ([facility] st Contact Info) Description 10/14/2022 Refill [facility] [address] [place] [address] Macie Link DO 230 [place] [address] Anxiety Social History Tobacco Use Types Packs/Day [...] 1:30 PM EDT Office Visit [facility] [address] [facility] [place] [address] Justin Anne, DMD 230 [place] [address] 09/04/2024 2:30 PM EDT Medication Management [address] [address] Flor Clark PharmD [address] [place] [address] 09/11/2024 9:45 AM EDT Office Visit [address] [place] [address] Macie Link DO [address] [place] [address] 09/13/2024 9:00 AM EDT Clinical Support [address] [address] April Murrell, RN 09/24/2024 3:00 PM EDT Office Visit [facility] 230 [place] [address] Trina Arrieta documented as of this encounter Visit Diagnoses Diagnosis Anxiety Anxiety state, unspecified documented in this encounter Additional Health Concerns Assessment Noted Time PHQ-9 Depression Total Score: 2 07/06/19 23 9:23 AM EST documented as of this encounter Care Teams Hot Box Operator Relationship Specialty Start Date End Date Macie Link DO [address] [place] [address] PCP - General Family Medicine 05/30/18 Flor Clark PharmD [address] [place] [address] Pharmacist Internal Medicine 08/18/23 documented as of this encounter
--- OUTSIDE RECORDS SUMMARY | 2024-08-08 14:52 | XMS_ITS | Encounter Summary ---
Author Organization [employer] Address [address] [facility] [address] 7t [place] [address] Care Team Providers Care Melter Operator Name Role Phone Macie Link DO Primary Care Provider [phone] Flor Clark PharmD Unavailable [phone] Reason for Visit * Reason Onset Date Comments Prior Authorization 08/17/2023 Encounter Details Date Type Department Care Team ([facility] st Contact Info) Description 08/17/2023 Telephone [facility] [address] [place] [address] Macie Link DO 230 [place] [address] Prior Authorization Social History Tobacco Use Types [...] 2.5-2.5 % cream To be sent to: [facility] - [place], [place] - [address] [facility] documented in this encounter Plan of Treatment Upcoming Encounters Date Type Department Care Team (Late st Contact Info) Description 08/15/2024 1:30 PM EDT Office Visit [facility]ULT [facility] [address] [place] [address] Justin Anne, DMD 230 [place] [address] 09/04/2024 2:30 PM EDT Medication Management [facility] [address] [place] [address] Flor Clark PharmD [address] [place] [address] 09/11/2024 9:45 AM EDT Office Visit [facility] [address] [facility] [place] [address] Macie Link DO 230 [place] [address] 09/13/2024 9:00 AM EDT Clinical Support [facility] [address] [place] [address] April Murrell RN 09/24/2024 3:00 PM EDT Office Visit [facility] [address] [place] [address] Trina Arrieta documented as of this encounter [...] documented as of this encounter Care Teams Melter Operator Relationship Specialty Start Date End Date Macie Likn DO 230 [place], [place] [phone] PCP - General Family Medicine 05/30/18 Flor Clark, DerikD [address] [place] [address] Pharmacist Internal Medicine 08/18/23 documented as of this encounter
--- OUTSIDE RECORDS SUMMARY | 2024-08-08 14:52 | XMS_ITS | Encounter Summary ---
Author Organization [employer] Address [address] [facility] [address] 7t [place] [address] Care Team Providers Care Electric Range Servicer Name Role Phone Fariba Macie Primary Care Provider Flor Clark PharmD Unavailable Reason for Visit * Reason Comments root canal Patient presents tod ay for a rot canal on tooth #20 Encounter Details Date Type Department Care Team (Late st Contact Info) Description 07/24/2024 10:00 AM EST Office Visit [facility] 230 [place] [address] Hancock-HeadleyKarmen chauhan, DDS 230 [place] [address] Bruxism (Primary Dx); Open fracture of tooth, initial encounter Social History Tobacco Use Types Packs/Day Years [...] as of this encounter Progress Notes * Karmen Bustamante DDS - 07/24/2024 10:00 AM EST Patient ID: Joshua Barnard is a 63 y.o. male. Time Out: Date: 07/24/2024 Tooth: #20 Procedure: Root Canal Verified the above with patient, financial planning assistant, and provider. Confirmed via patient's chart, intraorally and by radiographs. Cadastral Surveyor: not applicable Medical Hx: Vitals: There were no vitals taken for this visit. Medications, Med Hx reviewed with patient and updated in chart. Consent Obtained: The risks, benefits, indications, potential complications, and alternatives were explained to the patient and informed consent was obtained with good understanding. Treatment Provided: Dental procedures in this visit D3320 - ENDODONTIC THERAPY, PREMOLAR TOOTH 20 (Completed) Service provider: Karmen Bustamante DDS Billing provider: Karmen Bustamante DDS [id number] - CASE PRESENTATION, DETAILED AND EXTENSIVE TREATMENT PLANNING (Completed) Service provider: Karmen Bustamante DDS Billing provider: Karmen Bustamante DDS Diagnosis: Fractured tooth Topical: 20% Benzocaine Anesthesia: 2% Lidocaine (Xylocaine) w/ 1:100,000 epinephrine Number of Cartridges: 1.5 Injection Type: Buccal infiltration, Long buccal nerve block, and LI nerve infiltration Confirmed profound anesthesia. Isolation: [place] Created access preparation. Working length radiograph taken: 21 mm Irrigated with: 6% NaOCl, RC Prep, and 17% EDTA Instrumented using: Hand files Final File: 40 Multi-Step Visit: N/A Master cone size: 40 Master cone radiograph taken. Sealer: Bioceramic Sealer Obturation Material: [place] Removed excess alat percha. Restorative Material: Cavit Final radiograph taken. Patient tolerated procedure well, no complications. Post op instructions given. Dismissed in good condition. NV: POC - Dr. Anne Sorting Machine Operator: Macie Garcia Dentist: Karmen Bustamante DDS documented in this encounter Plan of Treatment Upcoming Encounters Date Type Department Care Team (Late st Contact Info) Description 08/15/2024 1:30 PM EDT Office Visit [facility] [address] [place] [address] Justin Anne, SHAY [address] [place] [address] 09/04/2024 2:30 PM EDT Medication Management [address] [address] Flor Clark, PharmD [address] [place] [address] 09/11/2024 9:45 AM EDT Office Visit [address] [address] Macie Link DO [address] [place] [address] 09/13/2024 9:00 AM EDT Clinical Support [address] [address] April Murrell RN 09/24/2024 3:00 PM EDT Office Visit [facility] 230 [place] [address] Trina Arrieta documented as of this encounter [...] Procedure Name Priority Date/Time Associated Diagnosis Comments 20 ENDODONTIC THERAPY, PREMOLAR TOOTH Routine 07/24/2024 10:00 AM EST Bruxism Open fracture of tooth, initial encounter CASE PRESENTATION, DETAILED AND EXTENSIVE TREATMENT PLANNING Routine 07/24/2024 10:00 AM EST Bruxism Open fracture of tooth, initial encounter documented in this encounter Visit Diagnoses Diagnosis Bruxism- Primary Other specified psychophysiological malfunction Open fracture of tooth, initial encounter documented in this encounter Additional Health Concerns Assessment Noted Time PHQ-9 Depression Total Score: 5 12/20/19 24 9:37 AM EDT documented as of this encounter Care Teams Electric Range Servicer Relationship Specialty Start Date End Date Macie Link DO 230 [place] [address] PCP - General Family Medicine 05/30/18 Flor Clark PharmD 230 [place] [address] Pharmacist Internal Medicine 08/18/23 documented as of this encounter
--- OUTSIDE RECORDS SUMMARY | 2024-08-08 14:52 | XMS_ITS | Encounter Summary ---
Author Organization [facility], Address [address] [place] [address] Phone Care Team Providers Care Geographic Information System Analyst Name Role Phone Macie Link DO Primary Care Provider Unava ilable Encounter Details Date Type Department Care Team (Late st Contact Info) Description 07/19/2022 Documentation Only [facility], [address] [place] [address] Joya [place]ner[place]AN [place], [place] [address] [place] [address] Social History Tobacco Use Types [...] on filedocumented in this encounter Care Teams Geographic Information System Analyst Relationship Specialty Start Date End Date Maice Link DO PCP - General 04/03/19 documented as of this encounter
--- OUTSIDE RECORDS SUMMARY | 2024-08-08 14:52 | XMS_ITS | Encounter Summary ---
Author Organization [email or web address] Address [address] [facility] [address] 7t [place] [address] Care Team Providers Care System Integration Engineer Name Role Phone Macie Link DO Primary Care Provider [phone] Flor Clark PharmD Unavailable [phone] Reason for Visit * Reason Onset Date Comments Durable Medical Equipment 08/06/2024 Encounter Details Date Type Department Care Team ([facility] st Contact Info) Description 08/06/2024 Telephone [facility] 230 [place] [address] Macie Link DO [address] [place] [address] Durable Medical Equipment Social History Tobacco Use [...] encounter Miscellaneous Notes * Telephone Encounter - Faizan Reilly - 08/06/2024 2:41 PM EDT Tc from pt from pt requesting Dme script for Marek Ramírez. Pt states that he doesnt have anymore. Contact pt at [phone] documented in this encounter Plan of Treatment Upcoming Encounters Date Type Department Care Team (Late st Contact Info) Description 08/15/2024 1:30 PM EDT Office Visit [facility] [address] [place] [address] Justin Anne, DMD [address] [place] [address] 09/04/2024 2:30 PM EDT Medication Management [facility] [address] [place] [address] Flor Clark, PharmD [address] [place] [address] 09/11/2024 9:45 AM EDT Office Visit [facility] [address] [place] [address] Macie Link DO [address] [place] [address] 09/13/2024 9:00 AM EDT Clinical Support [facility] [address] [place] [address] April Murrell RN 09/24/2024 3:00 PM EDT Office Visit [facility] [address] [place] [address] Trina Arrieta documented as of this encounter [...] documented as of this encounter Care Teams System Integration Engineer Relationship Specialty Start Date End Date Macie Link DO [address] [place] [address] PCP - General Family Medicine 05/30/18 Flor Clark PharmD [address] [place] [address] Pharmacist Internal Medicine 08/18/23 documented as of this encounter
--- OUTSIDE RECORDS SUMMARY | 2024-08-08 14:52 | XMS_ITS | Encounter Summary ---
Author Organization [employer] Address [address] [facility] 7t [place] [address] Care Team Providers Care Architecture Professor Name Role Phone Macie Link DO Primary Care Provider [phone] Flor Clark PharmD Unavailable [phone] Reason for Visit * Reason Comments Med Refill Encounter Details Date Type Department Care Team (Late st Contact Info) Description 12/12/2023 Refill [facility] 230 [place] [address] Macie Link DO 230 [place] [address] Anxiety; Chronic neck pain Social History Tobacco [...] Description 08/15/2024 1:30 PM EDT Office Visit [facility] ADULT DENTAL [address] [place] [address] Justin Anne, DMD [address] [place] [address] 09/04/2024 2:30 PM EDT Medication Management [facility] [address] [place] [address] Flor Clark, DerikD [address] [place] [address] 09/11/2024 9:45 AM EDT Office Visit [address] [address] Macie Link, [address] [place] [address] 09/13/2024 9:00 AM EDT Clinical Support [address] [address] April Murrell, PADILLA 09/24/2024 3:00 PM EDT Office Visit [facility] [address] [place] [address] Trina Arrieta documented as of this encounter [...] documented as of this encounter Care Teams Architecture Professor Relationship Specialty Start Date End Date Macie Link DO 230 [place] [address] PCP - General Family Medicine 05/30/18 Flor Clark PharmD 230 [place] [address] Pharmacist Internal Medicine 08/18/23 documented as of this encounter
--- OUTSIDE RECORDS SUMMARY | 2024-08-08 14:52 | XMS_ITS | Encounter Summary ---
Author Organization [employer] Address [address] [place] [address] Care Team Providers Care Mobility Architect Manager Name Role Phone Macie Link DO Primary Care Provider [phone] Flor Clark PharmD Unavailable [phone] Encounter Details Date Type Department Care Team (Late st Contact Info) Description 09/09/2023 Orders Only [facility] MED[facility]INE [address] [place] [address] ProviderProsper MD Social History Tobacco Use Types [...] Description 08/15/2024 1:30 PM EDT Office Visit [facility] ADULT DENTAL [address] [place] [address] Justin Anne, SHAY [address] [place] [address] 09/04/2024 2:30 PM EDT Medication Management [facility] MED[facility] [address] [place] [address] Flor Clark, PharmD [address] [place] [address] 09/11/2024 9:45 AM EDT Office Visit [address] [address] Macie Link DO [address] [place] [address] 09/13/2024 9:00 AM EDT Clinical Support [address] [address] April Murrell, PADILLA 09/24/2024 3:00 PM EDT Office Visit [facility] ADULT DENTAL [address] [place] [address] Trina Arrieta documented as of this encounter Goals Goal Patient Goal Type Associated Problems Recent Progress Patient-Stated? Author Hemoglobin A1c < 7 Result Component 7.4( 2:10 PM EST) No Puia, Flor, PharmD Note: A1c value is falsely low [...] Procedure Name Priority Date/Time Associated Diagnosis Comments COLONOSCOPY Routine 02/23/2022 7:37 AM EDT COLONOSCOPY Routine 02/25/2016 7:46 AM EDT documented in this encounter Results * Colonoscopy (02/23/2022 7:37 AM EDT) Historical Provider HEALTH MAINTENANCE Final Result * Colonoscopy (02/25/2016 7:46 AM EDT) Historical Provider HEALTH MAINTENANCE Final Result documented in this encounter Visit Diagnoses Not on filedocumented in this encounter Additional Health Concerns Assessment Noted Time PHQ-9 Depression Total Score: 13 05/31/ 024 9:15 AM EST documented as of this encounter Care Teams Mobility Architect Manager Relationship Specialty Start Date End Date Macie Link DO [address] [place] [address] PCP - General Family Medicine 05/30/18 Flor Clark PharmD [address] [place] [address] Pharmacist Internal Medicine 08/18/23 documented as of this encounter
--- OUTSIDE RECORDS SUMMARY | 2024-08-08 14:52 | XMS_ITS | Encounter Summary ---
Author Organization [employer] Address [address] [place] [address] Care Team Providers Care Mat Making Machine Tender Name Role Phone Macie Link DO Primary Care Provider [phone] Flor Clark PharmD Unavailable [phone] Reason for Visit * Reason Comments Med Refill Encounter Details Date Type Department Care Team ([facility] st Contact Info) Description 06/03/2023 Refill [facility] MEDICINE [address] [place] [address] Macie Link DO [address] [place] [address] Anxiety Social History Tobacco Use Types Packs/Day [...] Description 08/15/2024 1:30 PM EDT Office Visit [facility] ADULT DENTAL [address] [place] [address] Justin Anne, DMD [address] [place] [address] 09/04/2024 2:30 PM EDT Medication Management [facility] MEDICINE [address] [place] [address] Flor Clark, PharmD [address] [place] [address] 09/11/2024 9:45 AM EDT Office Visit [address] [address] Macie Link, [address] [place] [address] 09/13/2024 9:00 AM EDT Clinical Support [address] [address] April Murrell, PADILLA 09/24/2024 3:00 PM EDT Office Visit [facility] ADULT DENTAL [address] [place] [address] Trina Arrieta documented as of this encounter Visit Diagnoses Diagnosis Anxiety Anxiety state, unspecified documented in this encounter Additional Health Concerns Assessment Noted Time PHQ-9 Depression Total Score: 13 024 9:15 AM EST documented as of this encounter Care Teams Mat Making Machine Tender Relationship Specialty Start Date End Date Macie Link DO [address] [place] [address] PCP - General Family Medicine 05/30/18 Flor Clark PharmD [address] [place] [address] Pharmacist Internal Medicine 08/18/23 documented as of this encounter
--- OUTSIDE RECORDS SUMMARY | 2024-08-08 14:52 | XMS_ITS | Encounter Summary ---
Author Organization [facility], Address [address] [place] [address] Phone Care Team Providers Care Ammonia Distiller Name Role Phone Macie Link DO Primary Care Provider Unava ilable Encounter Details Date Type Department Care Team (Late st Contact Info) Description 10/19/2023 Documentation Only [facility], [address] [place] [address] Jimena Gibson [place] [address] [place] [address] Social History Tobacco Use Types [...] on filedocumented in this encounter Care Teams Ammonia Distiller Relationship Specialty Start Date End Date Macie Link DO PCP - General 04/03/19 documented as of this encounter
--- OUTSIDE RECORDS SUMMARY | 2024-08-08 14:52 | XMS_ITS | Encounter Summary ---
Author Organization [employer] Address [address] [place] [address] Care Team Providers Care Mumps Developer Name Role Phone Macie Link DO Primary Care Provider [phone] Flor Clark PharmD Unavailable [phone] Reason for Visit * Reason Comments Med Refill Encounter Details Date Type Department Care Team ([facility] st Contact Info) Description 11/05/2023 Refill [facility] MEDICINE [address] [place] [address] Macie Link DO [address] [place] [address] Asthma, unspecified asthma severity, unspecified whether complicated, [...] Description 08/15/2024 1:30 PM EDT Office Visit [facility] ADULT DENTAL [address] [place] [address] Justin Anne, DMD [address] [place] [address] 09/04/2024 2:30 PM EDT Medication Management [address] [address] Flor Clark, PharmD [address] [place] [address] 09/11/2024 9:45 AM EDT Office Visit [address] [address] Macie Link DO [address] [place] [address] 09/13/2024 9:00 AM EDT Clinical Support [address] [address] April Murrell RN 09/24/2024 3:00 PM EDT Office Visit [facility] ADULT DENTAL [address] [place] [address] Trina Arrieta documented as of this encounter [...] documented as of this encounter Care Teams Mumps Developer Relationship Specialty Start Date End Date Macie Link DO [address] [place] [address] PCP - General Family Medicine 05/30/18 Flor Clark PharmD [address] [place] [address] Pharmacist Internal Medicine 08/18/23 documented as of this encounter
--- OUTSIDE RECORDS SUMMARY | 2024-08-08 14:52 | XMS_ITS | Encounter Summary ---
Author Organization [facility], Address [address] [place] [address] Phone Care Team Providers Care Engine Designer Name Role Phone Macie Link DO Primary Care Provider Unava ilable Reason for Visit * Reason Comments Med Refill Encounter Details Date Type Department Care Team (Late st Contact Info) Description 07/15/2022 Refill [facility], [address] [place] [address] Romario Ford MD [address] [place] [id number] Social History Tobacco Use Types Packs/Day Years [...] on filedocumented in this encounter Care Teams Engine Designer Relationship Specialty Start Date End Date Macie Link DO PCP - General 04/03/19 documented as of this encounter
--- OUTSIDE RECORDS SUMMARY | 2024-08-08 14:52 | XMS_ITS | Encounter Summary ---
Author Organization [employer] Address [address] [facility] [facility] [address] [place] [address] Care Team Providers Care Ordering Box Operator Name Role Phone FaribaMacie Primary Care Provider [phone] Flor Clark PharmD Unavailable [phone] Reason for Visit * Reason Comments post & core #20 Encounter Details Date Type Department Care Team ([facility] st Contact Info) Description 07/26/2024 1:30 PM EST Office Visit [facility] [address] [place] [address] Justin Anne, SHAY [address] [place] [address] Social History Tobacco Use Types Packs/Day Years [...] Pressure 130/68 07/26/2024 1:13 PM EST Pulse - - Temperature - - Respiratory Rate - - Oxygen Saturation - - Inhaled Oxygen Concentration - - Weight - - Height - - Body Mass Index - - documented in this encounter Progress Notes * Justin Anne DMD - 07/26/2024 1:30 PM EST C/C: pain at recently finished RCT#20 (was completed by Dr. Headley on 07-24) I.O.E: sensitive to percussion of #20 E.O.E: sensitive to palpation at LL submandibular area Radiographic: existing RCT looks fine Dx: Post-op inflammation Tx: wait couple weeks before P&C and crown #20 Meds: Amoxill. 500mg x 21 tabs Ibuprofen 800mg x 15 tabs Peridex x 1 bottle Mariola documented in this encounter Plan of Treatment Upcoming Encounters Date Type Department Care Team (Late st Contact Info) Description 08/15/2024 1:30 PM EDT Office Visit [facility] [address] [place] [address] Justin Anne DMD [address] [place] [address] 09/04/2024 2:30 PM EDT Medication Management [facility] [address] [place] [address] Flor Clark PharmD [address] [place] [address] 09/11/2024 9:45 AM EDT Office Visit [address] [address] Macie Link DO [address] [place] [address] 09/13/2024 9:00 AM EDT Clinical Support [address] [address] April Murrell RN 09/24/2024 3:00 PM EDT Office Visit [facility] [address] [place] [address] Trina Arrieta Scheduled Orders Name Type Priority Associated Diagnoses Orde r Schedule 20 20 CROWN PREP Dental Routine 1 Occurr ences starting 07/26/2024 documented as of this encounter Goals Goal [...] CHARGE VISIT Routine 07/26/2024 1:30 PM EST documented in this encounter Visit Diagnoses Not on filedocumented in this encounter Additional Health Concerns Assessment Noted Time PHQ-9 Depression Total Score: 5 12/20/19 24 9:37 AM EDT documented as of this encounter Care Teams Ordering Box Operator Relationship Specialty Start Date End Date Macie Link DO [address] [place] [address] PCP - General Family Medicine 05/30/18 Flor Clark PharmD [address] [place] [address] Pharmacist Internal Medicine 08/18/23 documented as of this encounter
--- OUTSIDE RECORDS SUMMARY | 2024-08-08 14:52 | XMS_ITS | Referral Summary ---
Author Organization [facility] Address [address] [place] [address] Care Team Providers Care Director Sports Name Role Phone Patient, Has No Pcp Or Ref Primary Care Provider Unavailable Encounters Date Type Department Care Team Description 07/06/2024 12:35 PM EST - 07/06/2024 11:59 PM EST Hospital Encounter [facility] CT Scan [address] [place] [address] Hillary Webber MD Renal cell carcinoma of right kidney (HCC) Discharge Disposition: Home or Self Care () 07/05/2024 Patient Outreach [facility] Floor [address] [place] [address] Rea Parks, PADILLA 07/05/2024 Orders [address] [facility] 5th Floor [address] [place] [address] Rea Parks, 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 tender cell carcinoma of right kidney (HCC) (Primary Dx); Neuroendocrine carcinoma of stomach (HCC) 07/04/[address] Outreach [facility] 5th Floor [address] [place] [address] Rea Parks, RN 06/28/2024 Orders Only [facility] Nuclear Medicine [address] [place] [address] Kandice Pacheco MD 06/27/2024 Orders Only [facility] Interventional Radiology [address] [place] [address] Amanda Sweet MD 06/21/2024 2:00 PM EST Office Visit [facility] 5th Floor [address] [place] [address] Hillary Webber MD Renal cell carcinoma of right kidney (HCC) (Primary Dx); Neuroendocrine carcinoma of stomach (HCC) 06/12/2024 Telephone [facility] Transplant Department [address] [place] [address] Lynda Diaz RN from Last 3 Months Allergies No known [...] mg by mouth once a day. Active sucralfate (CARAFATE) 1 gram tablet SMARTSI Tablet(s) By Mouth 4 Times Daily 4 Active sevelamer carbonate (RENVELA) 800 mg tablet SMARTSI Tablet(s) By Mouth 3 Times Daily Active oxyCODONE-aceta minophen (PERCOCET) 10-325 mg per tablet SMARTSI Tablet(s) By Mouth Every 4 Hours PRN 4 Active loratadine (CLARITIN) 10 mg tablet SMARTSI Tablet(s) By Mouth Every Other Day 4 Active diclofenac (VOLTAREN) 1% gel SMARTSI Gram(s) Topical Twice Daily PRN Active cetirizine (ZyrTEC) 10 mg tablet SMARTSI.5 Tablet(s) By Mouth Daily Active Active Problems Problem Noted Date Diagnosed Date ESRD (end stage renal disease) 03/05/2024 Overview (03/05/2024): Dialysis start 12/17/2021 Type 2 diabetes mellitus wit h kidney complication, with long-term current use of insulin 03/05/2024 Hypertension 03/05/2024 Renal cell carcinoma 03/05/2024 H/O right nephrectomy 03/05/2024 History of cholecystectomy 03/05/2024 H/O umbilical hernia repair 03/05/2024 Immunizations Immunization Administration Dates Next Due COVID-19, Moderna, mRNA, LNP -S, Bivalent Booster, PF 03/12/2022 Hepatitis B vaccine (HEPLISA V-B) vaccine 0.5 mL IM 12/29/2022,11/03/2022,10/04/2022,2022 Pneumococcal conjugate PCV20,polysaccharide [id number] conjugate, adjuvant, PF (Prevnar 20) 06/22/2023 Social [...] Sign Reading Time Taken Comments Blood Pressure 122/67 06/21/2024 1:54 PM EST Pulse 59 06/21/2024 1:54 PM EST Temperature 36.9 ??C (98.5 ??F) 06/21/2024 1:54 PM ES T Respiratory Rate 16 06/21/2024 1:54 PM EST Oxygen Saturation 100% 06/21/2024 1:54 PM EST Inhaled Oxygen Concentration - - Weight 89.4 kg (197 lb) 06/21/2024 1:54 PM EST Height 165 cm (5' 4.96 ) 03/15/2024 7:55 AM EDT Body Mass Index 32.82 03/15/2024 7:55 AM EDT Plan of Treatment Upcoming Encounters Date Type Department Care Team (Late st Contact Info) Description 03/19/2025 9:00 AM EDT Follow-Up [facility] Renal Transplant [address] [place] [address] Louie Pablo MD [address] [place] [address] 03/19/2025 9:30 AM EDT Social Work [facility] Renal Transplant [address] [place] [address] Imani Livingston LICSW [address] [place] [address] Procedures * Due to [place] state law, this organization might not be sharing negative HIV tests. Procedure Name Priority Date/Time Associated Diagnosis Comments PET/CT GA68 DOTATATE NETSPOT Routine 08/02/2024 7:40 PM EST Neuroendocrine carcinoma of stomach (HCC) CT ABDOMEN PELVIS W CONTRAST Routine 07/06/2024 2:25 PM EST Renal cell carcinoma of right kidney (HCC) CT CHEST W CONTRAST Routine 07/06/2024 2 :25 PM EST Renal cell carcinoma of right kidney (HCC) BASIC METABOLIC PANEL STAT 07/06/2024 11:59 AM EST Renal cell carcinoma of right kidney (HCC) Neuroendocrine carcinoma of stomach (HCC) HEPATITIS C ANTIBODY W/REFLEX TO HCV RNA, [...] to Health Maintenance Results * Due to [place] state law, this organization might not be sharing negative HIV tests. * PET/CT Skull Base to Mid Thigh [id number] (08/02/2024 7:40 PM EST) Anatomical Region Laterality Modality Entire body Magnetic Resonan ce 08/02/2024 6:50 PM EST Narrative 08/03/2024 12:07 PM EST [facility] PET/CT Imaging Accession Number: [id number] Patient Name: Joshua Barnard Date of : 1960 Date of Exam: 08-02-2024 Referring Physician: Hillary Webber ?[facility] ?[address] [place] [address] ?[place] [address] Exam: PT Skull Base to Mid Thigh [id number] CPT 95659 Room Description: [facility] Pt4 Ga-68 Dotatate PET-CT History: 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 Patient undergoes regular endoscopy surveillance every 6-12 months. Recent endoscopy 05/04/2024 with resection of the lesser curvature lesion positive for neuroendocrine tumor. Biopsy of L1 vertebral body lytic lesion revealed patchy fibrosis. . 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 Comparison: 08/25/2023, CT PET 10/12/2021, MRI abdomen 08/11/2023 multiple priors PET technique: The study was performed after the intravenous injection of 4.98 mCi Ga-68 Dotatate. Positron emission tomography and CT were performed from the base of the brain to the midthighs with axial, coronal, sagittal, and 3-D reformats. 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 Bilateral lens replacement.. No abnormal radiotracer uptake in the head/neck. Chest: No abnormal radiotracer uptake in the mediastinal or hilar lymph nodes. Faint radiotracer uptake in bilateral normal-appearing axillary lymph nodes, likely reactive. No abnormal radiotracer uptake within the lungs. A group of tiny nodules measuring 6 to 7 mm noted in the superior segment of the right upper lobe, axial images 115, 114, not clearly seen in the prior study, with no increased radiotracer uptake, could be infectious/inflammatory, however metastasis is not excluded. No pleural effusion. Abdomen/pelvis: * ??1.2 x 0.8 cm gastrohepatic lymph node along the lesser curvature with increased Dotatate uptake and SUV max value of 15.1 unchanged since 2023. ?? * ??Physiologic activity within the liver and spleen, greater in the spleen, with no definite superimposed focal increased activity to suspect new metastasis.. Mild splenomegaly measuring 14 cm anteroposteriorly unchanged. * ??Physiologic activity noted in the left kidney, with stable appearance compared to prior PET/CT and prior MRI (mild atrophy of the superior and inferior pole again noted). * ??Mildly enlarged left para-aortic lymph node, axial image 199, with no increased radiotracer uptake, is nonspecific and probably reactive (also stable from prior MRI from 2021) * ??Surgical clips within the stomach. No focal radiotracer uptake along the stomach wall. * ??Bilateral fat-containing inguinal hernia. * ??Status post right nephrectomy and cholecystectomy. Osseous/cutaneous structures: A new subtle focal lytic lesion with increased Dotatate uptake in the right ilium with a SUV max value of 4.8 (CT/PET image 239). Faint focus of Dotatate uptake in the right anterior fourth rib with SUV max value of 3.1, with questionable stenosis on CT (CT/PET image 123). Few tiny sclerotic lesions in the posterior right ilium and lytic lesions in the lower thoracic and L1 vertebral bodies without increased Dotatate activity unchanged. Impression: 1. ??New focal lytic lesion in the right ilium with mild increased Dotatate uptake is concerning for metastasis. 2. Additional faint focus of increased uptake in the anterior right fourth rib with questionable sclerosis on CT could also represent early metastasis. 3. Stable 0.8 cm short axis Dotatate avid gastrohepatic lymph node, likely metastatic. 4. Intense physiologic activity in the spleen and moderate physiologic activity in the liver limits evaluation for tiny metastasis (as questioned on recent MRI) however no discrete focal increased uptake in the liver/spleen seen above the diffuse background activity. 5. Stable lytic lesions in the lower thoracic spine and L1 with no increased uptake 6. Group of 3 ill-defined nodules in the right upper lobe posteriorly, with no increased uptake, are nonspecific and could be infectious/inflammatory although metastasis is not excluded. I, Annalee Mcmillan MD, have reviewed the images and report and concur with the resident, Jacek Ayoubs, findings. 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 Patient undergoes regular endoscopy surveillance every 6-12 months. Recent endoscopy 05/04/2024 with resection of the lesser curvature lesion positive for neuroendocrine tumor. Biopsy of L1 vertebral body lytic lesion revealed patchy fibrosis. . 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 Comparison: 08/25/2023, CT PET 10/12/2021, MRI abdomen 08/11/2023 multiple priors PET technique: The study was performed after the intravenous injection of 4.98 mCi Ga-68 Dotatate. Positron emission tomography and CT were performed from the base of the brain to the midthighs with axial, coronal, sagittal, and 3-D reformats. 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 Bilateral lens replacement.. No abnormal radiotracer uptake in the head/neck. Chest: No abnormal radiotracer uptake in the mediastinal or hilar lymph nodes. Faint radiotracer uptake in bilateral normal-appearing axillary lymph nodes, likely reactive. No abnormal radiotracer uptake within the lungs. A group of tiny nodules measuring 6 to 7 mm noted in the superior segment of the right upper lobe, axial images 115, 114, not clearly seen in the prior study, with no increased radiotracer uptake, could be infectious/inflammatory, however metastasis is not excluded. No pleural effusion. Abdomen/pelvis: * 1.2 x 0.8 cm gastrohepatic lymph node along the lesser curvature with increased Dotatate uptake and SUV max value of 15.1 unchanged since 2023. * Physiologic activity within the liver and spleen, greater in the spleen, with no definite superimposed focal increased activity to suspect new metastasis.. Mild splenomegaly measuring 14 cm anteroposteriorly unchanged. * Physiologic activity noted in the left kidney, with stable appearance compared to prior PET/CT and prior MRI (mild atrophy of the superior and inferior pole again noted). * Mildly enlarged left para-aortic lymph node, axial image 199, with no increased radiotracer uptake, is nonspecific and probably reactive (also stable from prior MRI from 2021) * Surgical clips within the stomach. No focal radiotracer uptake along the stomach wall. * Bilateral fat-containing inguinal hernia. * Status post right nephrectomy and cholecystectomy. Osseous/cutaneous structures: A new subtle focal lytic lesion with increased Dotatate uptake in the right ilium with a SUV max value of 4.8 (CT/PET image 239). Faint focus of Dotatate uptake in the right anterior fourth rib with SUV max value of 3.1, with questionable stenosis on CT (CT/PET image 123). Few tiny sclerotic lesions in the posterior right ilium and lytic lesions in the lower thoracic and L1 vertebral bodies without increased Dotatate activity unchanged. Impression: 1. New focal lytic lesion in the right ilium with mild increased Dotatate uptake is concerning for metastasis. 2. Additional faint focus of increased uptake in the anterior right fourth rib with questionable sclerosis on CT could also represent early metastasis. 3. Stable 0.8 cm short axis Dotatate avid gastrohepatic lymph node, likely metastatic. 4. Intense physiologic activity in the spleen and moderate physiologic activity in the liver limits evaluation for tiny metastasis (as questioned on recent MRI) however no discrete focal increased uptake in the liver/spleen seen above the diffuse background activity. 5. Stable lytic lesions in the lower thoracic spine and L1 with no increased uptake 6. Group of 3 ill-defined nodules in the right upper lobe posteriorly, with no increased uptake, are nonspecific and could be infectious/inflammatory although metastasis is not excluded. I, Annalee Mcmillan MD, have reviewed the images and report and concur with the resident, Jacek Aguilera's, findings. Electronically Signed By: Annalee Mcmillan MD us Hillary Webber MD IM MRI PROCEDURES Final Result * CT Abdomen Pelvis with Contrast (07/06/2024 2:25 PM EST) Anatomical Region Laterality Modality Body Computed Tomogra phy 07/09/2024 1:58 PM EST Impressions 07/09/2024 2:20 PM EST 1. No definite evidence of local recurrence or metastatic disease resulting from this patient's renal cell carcinoma. 2. At least one metastatic focus/prashant mass within the gastrohepatic ligament from this patient's gastric neuroendocrine carcinoma. 3. Asymmetric enhancement involving the mid and lower poles of the residual left kidney, attention on follow-up given increased activity on outside Do-Wright study. Findings strongly suspicious for metastatic neuroendocrine involvement. Note that the absence of a mentioning this patient's gastric neuroendocrine tumor required extensive review of this patient's notes in Epic. Without this review, the possibility of an erroneous interpretation of this exam could have occurred. If this radiology report contains a blank impression section, it is an incomplete radiology report. ??Please contact the interpreting radiologist or applicable radiology division as soon as possible to obtain the completed interpretation. ? Workstation ID: [id number] Narrative 07/09/2024 2:20 PM EST Indication: Renal cell carcinoma, status post right nephrectomy. Note that additional history necessary for accurate interpretation of this study but not provided, includes a gastric neuroendocrine tumor. Also note that the outside PET scan from 08/25/2023 is actually a Do-WRIGHT scan and entered erroneously within the PACS system. TECHNIQUE: Multidetector CT imaging was performed from the hemidiaphragms through to the pubic symphysis during intravenous contrast administration. ??Oral contrast was also administered. ??Sagittal and coronal reformatted images were also generated. ??. COMPARISON: Outside CT from 10/20/2021 (noncontrast), outside PET/CT from 08/25/2023. FINDINGS: See chest CT for formal chest findings. Unremarkable liver, surgically absent gallbladder, normal spleen, pancreas, adrenal glands. Surgically absent right kidney, no abnormalities within the surgical bed. The left kidney is somewhat atrophic, no suspicious masses, scattered submillimeter hypodensities likely cysts but too small to characterize. There is also some heterogeneous enhancement of the mid and lower poles of the residual left kidney. Although the appearance can suggest a simple anatomic variant being a prominent column, this area shows increased activity on the rotator scan and may represent a metastatic focus from this patient's neuroendocrine tumor. There is also a 11 x 7.8 mm enhancing nodule within the gastrohepatic ligament (series 900, image 32) which also shows marked increased activity on the dilatation scan and represents a metastatic focus from this patient's gastric neuroendocrine tumor. Collapsed but grossly normal-appearing urinary bladder. Bilateral fat-containing hernias. Mild prostatic enlargement. Colonic diverticulosis, loops of large and small bowel grossly normal otherwise. Bone windows show some osteopenia, no definite suspicious lytic or blastic changes, multiple Schmorl's nodes noted. Single sclerotic focus involving L3 is likely a bone island. Resulting Agency Comment [id number] Procedure Note Eusebio Poole MD - 07/09/2024 Indication: Renal cell carcinoma, status post right nephrectomy. Note thatadditional history necessary for accurate interpretation of this study butnot provided, includes a gastric neuroendocrine tumor. Also note that theoutside PET scan from 08/25/2023 is actually a Do-WRIGHT scan and enterederroneously within the PACS system. TECHNIQUE: Multidetector CT imaging was performed from the hemidiaphragmsthrough to the pubic symphysis during intravenous contrast administration.Oral contrast was also administered. Sagittal and coronal reformattedimages were also generated. . COMPARISON: Outside CT from 10/20/2021 (noncontrast), outside PET/CT from08/25/2023. FINDINGS: See chest CT for formal chest findings. Unremarkable liver,surgically absent gallbladder, normal spleen, pancreas, adrenal glands.Surgically absent right kidney, no abnormalities within the surgical bed.The left kidney is somewhat atrophic, no suspicious masses, scatteredsubmillimeter hypodensities likely cysts but too small to characterize.There is also some heterogeneous enhancement of the mid and lower poles ofthe residual left kidney. Although the appearance can suggest a simpleanatomic variant being a prominent column, this area shows increasedactivity on the rotator scan and may represent a metastatic focus fromthis patient's neuroendocrine tumor. There is also a 11 x 7.8 mm enhancingnodule within the gastrohepatic ligament (series 900, image 32) which alsoshows marked increased activity on the dilatation scan and represents ametastatic focus from this patient's gastric neuroendocrine tumor.Collapsed but grossly normal-appearing urinary bladder. Bilateral fat-containing hernias. Mild prostatic enlargement. Colonicdiverticulosis, loops of large and small bowel grossly normal otherwise. Bone windows show some osteopenia, no definite suspicious lytic or blasticchanges, multiple Schmorl's nodes noted. Single sclerotic focus involvingL3 is likely a bone island. IMPRESSION: 1. No definite evidence of local recurrence or metastatic diseaseresulting from this patient's renal cell carcinoma. 2. At least one metastatic focus/prashant mass within the gastrohepaticligament from this patient's gastric neuroendocrine carcinoma. 3. Asymmetric enhancement involving the mid and lower poles of theresidual left kidney, attention on follow-up given increased activity onoutside Do-Wright study. Findings strongly suspicious for metastaticneuroendocrine involvement. Note that the absence of a mentioning this patient's gastricneuroendocrine tumor required extensive review of this patient's notes inEpic. Without this review, the possibility of an erroneous interpretationof this exam could have occurred. If this radiology report contains a blank impression section, it is anincomplete radiology report. Please contact the interpreting radiologistor applicable radiology division as soon as possible to obtain thecompleted interpretation. Workstation ID: [id number] us Hillary Webber MD [facility] CT PROCEDURES Final Result * CT Chest W Contrast (07/06/2024 2:25 PM EST) Anatomical Region Laterality Modality Body Computed Tomogra phy 07/06/2024 3:25 PM EST Impressions 07/10/2024 9:46 AM EST 1. ??Lucent lesions in C7 and T1 vertebral bodies, indeterminate, may represent hemangiomas. ??Prominent lucent areas along the superior inferior endplates of T10 and T11 vertebral bodies, may represent Schmorl's nodes. ??Since these were not FDG avid on prior PET/CT, these are unlikely metastatic. ??However, A follow-up CT chest is recommended in 3-4 months to reassess. 2. ??No suspicious pulmonary nodules, intrathoracic lymphadenopathy or pleural effusions. If this radiology report contains a blank impression section, it is an incomplete radiology report. ??Please contact the interpreting radiologist or applicable radiology division as soon as possible to obtain the completed interpretation. ? Workstation ID: [id number] Up-to-date CT equipment and radiation dose reduction techniques were employed. CTDIvol: 14.8 - 18.2 mGy. DLP: 1501 mGy-cm. ??The following accession numbers are related to this dose report [id number]: [id number] Narrative 07/10/2024 9:46 AM EST Indication: ??Renal cell cancer, treated, asymptomatic, no known mets, follow up C64.1 - I10 - Malignant neoplasm of right kidney, except renal pelvis, Comparison: None Technique: CT scan of the chest was performed following the intravenous administration of intravenous contrast material. Axial, coronal and sagittal MPRs, axial MIP and coronal MinIP reformations were performed. Dose: For radiation dose control at least one of the following techniques was used in this procedure (1) Automated exposure control (2) Adjustment of the mA and/or kV according to patient size (3) Use of iterative reconstruction technique. FINDINGS: Neck and thoracic inlet: No abnormality. Mediastinum and large vessels: ? Aorta Mild aortic wall calcifications. Pulmonary arteries Pulmonary artery is not dilated. No central pulmonary embolism. ?? Esophagus No abnormality. Other mediastinal findings None. Heart: Cardiac size Mild cardiomegaly. Coronary arteries Severe coronary calcifications. Valves No valvular calcifications. ?? Pericardium No pericardial effusion. Lymph nodes: Supraclavicular and axillary Normal sized lymph nodes, no enlarged lymph nodes. Mediastinal Normal sized lymph nodes, no enlarged lymph nodes. Hilar Normal sized lymph nodes, no enlarged lymph nodes. Others None. Lung parenchyma: No suspicious pulmonary nodules or consolidation. ??Linear atelectasis/scarring in the lingula. ?? Airways: Central airways are clear. Pleura: No pleural effusions or pneumothorax. Upper abdomen: Please see report of the dedicated abdominal CT examination performed today. ?? Chest wall: No chest wall mass. Bones and soft tissues: Lucent lesions in C7 and T1 vertebral bodies (902:234, 227). ??Multilevel degenerative changes in the spine. ??Prominent lucent areas along the superior and inferior endplates of T10 and T11 vertebral bodies, may represent Schmorl's. ??Peripherally sclerotic lucent lesion in right lateral sixth rib, unchanged since at least 2021, likely benign. ?? Resulting Agency Comment [id number] Procedure Note Raquel Krause MD - 07/10/2024 Indication: Renal cell cancer, treated, asymptomatic, no known mets,follow up C64.1 - I10 - Malignant neoplasm of right kidney, except renalpelvis, Comparison: None Technique: CT scan of the chest was performed following the intravenousadministration of intravenous contrast material. Axial, coronal andsagittal MPRs, axial MIP and coronal MinIP reformations were performed. Dose: For radiation dose control at least one of the following techniqueswas used in this procedure (1) Automated exposure control (2) Adjustmentof the mA and/or kV according to patient size (3) Use of iterativereconstruction technique. FINDINGS: Neck and thoracic inlet: No abnormality. Mediastinum and large vessels: Aorta Mild aortic wall calcifications. Pulmonary arteries Pulmonary artery is not dilated. No central pulmonary embolism. Esophagus No abnormality. Other mediastinal findings None. Heart: Cardiac size Mild cardiomegaly. Coronary arteries Severe coronary calcifications. Valves No valvular calcifications. Pericardium No pericardial effusion. Lymph nodes: Supraclavicular and axillary Normal sized lymph nodes, no enlarged lymph nodes. Mediastinal Normal sized lymph nodes, no enlarged lymph nodes. Hilar Normal sized lymph nodes, no enlarged lymph nodes. Others None. Lung parenchyma: No suspicious pulmonary nodules or consolidation. Linearatelectasis/scarring in the lingula. Airways: Central airways are clear. Pleura: No pleural effusions or pneumothorax. Upper abdomen: Please see report of the dedicated abdominal CT examination performedtoday. Chest wall: No chest wall mass. Bones and soft tissues: Lucent lesions in C7 and T1 vertebral bodies ([id number], [phone]). Multileveldegenerative changes in the spine. Prominent lucent areas along thesuperior and inferior endplates of T10 and T11 vertebral bodies, mayrepresent Schmorl's. Peripherally sclerotic lucent lesion in rightlateral sixth rib, unchanged since at least 2021, likely benign. IMPRESSION: 1. Lucent lesions in C7 and T1 vertebral bodies, indeterminate, mayrepresent hemangiomas. Prominent lucent areas along the superior inferiorendplates of T10 and T11 vertebral bodies, may represent Schmorl's nodes.Since these were not FDG avid on prior PET/CT, these are unlikelymetastatic. However, A follow-up CT chest is recommended in 3-4 months toreassess. 2. No suspicious pulmonary nodules, intrathoracic lymphadenopathy orpleural effusions. If this radiology report contains a blank impression section, it is anincomplete radiology report. Please contact the interpreting radiologistor applicable radiology division as soon as possible to obtain thecompleted interpretation. Workstation ID: [id number] Up-to-date CT equipment and radiation dose reduction techniques wereemployed. CTDIvol: 14.8 - 18.2 mGy. DLP: 1501 mGy-cm. The followingaccession numbers are related to this dose report [id number]: [id number] Hillary Webber MD [facility] [place] PROCEDURES Final Result * (ABNORMAL) Basic Metabolic Panel (07/06/2024 11:59 AM EST) NA 138 135 - 145 mmol/L 07/06/2024 12:39 PM EST [facility] K 4.4 3.5 - 5.3 mmol/L 07/06/2024 12:39 PM EST [facility] Cl 96(L) 98 - 107 mmol/L 07/06/2024 12:39 PM EST [facility] CO2 30 22 - 32 mmol/L 07/06/2024 12:39 PM EST [facility] BUN 19 7 - 23 mg/dL 07/06/2024 12:39 PM EST [facility] Creatinine 5.41(H) 0.60 - 1.30 mg/dL 07/06/2024 12:39 PM EST [facility] Glucose 147(H) 65 - 99 mg/dL 07/06/2024 12:39 PM EST [facility] Calcium 9.7 8.6 - 10.5 mg/dL 07/06/2024 12:39 PM EST [facility] Anion Gap 12 5 - 15 07/06/2024 12:39 PM EST [facility] eGFR 11(L) >=60 mL/min/1 .73m2 07/06/2024 12:39 PM EST [facility] Comment:The estimated glomer ular filtration rate (eGFR) is calculated using a new formula developed by the NKF-ASN task force to eliminate race-based correction factors. The new formula uses serum/plasma creatinine, age, and gender to determine eGFR. A value below 60mls/min might indicate kidney disease and will be flagged. For additional information, see Morena et al, Am J Kidney Dis. 2021;79(2):268- 288, A Unifying Approach for GFR estimation: Recommendations of the NKF-ASN Task Force on Reassessing the Inclusion of Race in Diagnosing Kidney Disease . Blood Structure of peripheral vein / Unknown Venipuncture / Unknown 07/06/2024 11:59 AM EST 07/06/2024 12:09 PM EST us Hillary Webber MD LAB BLOOD ORDERABLES Final Resu lt [facility] [address] [place] [address], * (ABNORMAL) CBC Auto Differential (03/15/2024 12:39 PM EDT) WBC 6.2 3.8 - 10.8 10*3/uL 03/15/2024 1:11 PM EDT [facility] RBC 3.90(L) 4.20 - 5.80 10*6/uL 03/15/2024 1:11 PM EDT [facility] Hemoglobin 11.9(L) 13.2 - 17.1 g/dL 03/15/2024 1:11 PM EDT [facility] Hematocrit 36.8(L) 38.5 - 50.0 % 03/15/2024 1:11 PM EDT [facility] MCV 94.4 80.0 - 100.0 fL 03/15/2024 1:11 PM EDT [facility] MCH 30.5 27.0 - 33.0 pg 03/15/2024 1:11 PM EDT [facility] MCHC 32.3 32.0 - 36.0 g/dL 03/15/2024 1:11 PM EDT [facility] RDW 14.2 11.0 - 15.0 % 03/15/2024 1:11 PM EDT [facility] Platelets 175 140 - 400 10*3/uL 03/15/2024 1:11 PM EDT [facility] MPV 11.3 7.5 - 12.5 fL 03/15/2024 1:11 PM EDT [facility] Neutrophil % 59.1 % 03/15/2024 1:11 PM EDT [facility] Immature Grans % 0.2 0.0 - 0.9 % 03/15/2024 1:11 PM EDT [facility] Lymphocyte % 28.1 % 03/15/2024 1:11 PM EDT [facility] Monocyte % 9.9 % 03/15/2024 1:11 PM EDT [facility] Eosinophil % 2.4 % 03/15/2024 1:11 PM EDT [facility] Basophil % 0.3 % 03/15/2024 1:11 PM EDT [facility] Neutrophil # 3.63 1.50 - 7.80 10*3/uL 03/15/2024 1:11 PM EDT [facility] Immature Grans # <0.03 <=0.03 10*3/uL 03/15/2024 1:11 PM EDT [facility] Lymphocyte # 1.70 0.85 - 3.90 10*3/uL 03/15/2024 1:11 PM EDT [facility] Monocyte # 0.60 0.20 - 0.95 10*3/uL 03/15/2024 1:11 PM EDT [facility] Eosinophil # 0.20 0.02 - 0.50 10*3/uL 03/15/2024 1:11 PM EDT [facility] Basophil # <0.03 0.00 - 0.20 10*3/uL 03/15/2024 1:11 PM EDT [facility] nRBC % 0.0 /100 WBCs 03/15/2024 1:11 PM EDT [facility] nRBC # <0.01 <0.01 10*3/uL 03/15/2024 1:11 PM EDT [facility] Blood Structure of peripheral vein / Unknown Venipuncture / Unknown 03/15/2024 12:39 PM EDT 03/15/2024 12:59 PM EDT us Tobias Vogt MD LAB BLOOD ORDERABLES Final Result [facility] [address] [place] [address], [place] * Hepatitis C Antibody w/Reflex to PCR (03/15/2024 12:39 PM EDT) Hepatitis C Antibody NON-REACT ALBINO NON-REACT ALBINO 03/16/2024 3:27 AM EDT [email or web address] Comment: HCV antibody was non-reactive. There is no laboratory evidence of HCV infection. In most cases, no further action is required. However, if recent HCV exposure is suspected, a test for HCV RNA (test code 31369) is suggested. For additional information please refer to http://education.[place]/faq/ONR98p4 (This link is being provided for informational/ educational purposes only.) Blood Structure of peripheral vein / Unknown Venipuncture / Unknown 03/15/2024 12:39 PM EDT 03/15/2024 12:58 PM EDT Narrative [facility] 03/16/2024 3:27 AM EDT [facility] Received Date:[id number] us Tobias Vogt MD LAB BLOOD ORDERABLES Final Result [facility] [address] [facility] [address] Floor, [place] [address], [place] [phone] [employer] [facility] [address] [facility] [address], [place] [address], [place] [phone] * Phosphorus (03/15/2024 12:39 PM EDT) Phosphorus 3.4 2.5 - 4.5 mg/dL 03/15/2024 1:45 PM EDT [facility] Blood Structure of peripheral vein / Unknown Venipuncture / Unknown 03/15/2024 12:39 PM EDT 03/15/2024 12:58 PM EDT Tobias Vogt MD LAB BLOOD ORDERABLES Final Result [facility] [address] [place] [address], [place] * (ABNORMAL) Hemoglobin A1c (03/15/2024 12:39 PM EDT) Hemoglobin A1C 6.3(H) <5.7 % of total Hgb 03/16/2024 2:05 AM EDT [facility] Comment: For someone without known diabetes, a [...] (MG/DL) 134 mg/dL 03/16/2024 2:05 AM EDT [email or web address] eAG (MMOL/L) 7.4 mmol/L 03/16/2024 2:05 AM EDT [email or web address] Blood Structure of peripheral vein / Unknown Venipuncture / Unknown 03/15/2024 12:39 PM EDT 03/15/2024 12:59 PM EDT Narrative ELIUD DOMÍNGUEZ - 03/16/2024 2:05 AM EDT [facility] Received Date:[id number] us Tobias Vogt MD LAB BLOOD ORDERABLES Final Result [facility] DOM[facility]NGUEZ [address] [place] [address] [address]rd Floor, [address] [place] [address], [place] [phone] [facility] [address] [facility] 3rd Floor, [address] [facility] [address], [place] [phone] from Last 3 Months or Most Recently Relevant to Health Maintenance Insurance [facility] [place] [id number] [facility] [address] [place] [phone] [facility] Advance Directives Documents on File Type Date Recorded Patient Deposit Clerk Expl [facility] Care Proxy 03/20/2024 5:28 PM 10 Care Teams Director Sports Relationship Specialty Start Date End Date Patient, Has No Pcp Or Ref DO NOT EDIT THIS RECORD VIA PROVIDER ON THE FLY PCP - General Composite Worker 03/15/24
--- OUTSIDE RECORDS SUMMARY | 2024-08-08 14:52 | XMS_ITS | Clinical Summary ---
Author Organization [facility] Address [address] [place] [address] Care Team Providers Care Movie Machine Operator Name Role Phone Patient, Has No Pcp [...] - 07/06/2024 11:59 PM EST Hospital Encounter [facility] CT Scan [address] [place] [address] Hillary Webber MD Renal cell carcinoma of right kidney (HCC) Discharge Disposition: Home or Self Care (01) 07/05/2024 Patient Outreach [facility] 5th Floor [address] [place] [address] Rea Parks, PADILLA 07/05/2024 Orders Only [facility] Cancer [facility] Floor [address] [place] [address] Rea Parks, supervisor [place] cell carcinoma of right kidney (HCC) (Primary Dx); Neuroendocrine carcinoma of stomach (HCC) 07/04/2024 Patient Outreach [facility] [address] [place] [address] [address] [place] [address] Rea Parks, PADILLA 06/28/2024 Orders Only [facility] Nuclear Medicine [address] [place] [address] Kandice Pacheco MD 06/27/2024 Orders Only [facility] Interventional Radiology [address] [place] [address] Amanda Sweet MD 06/21/2024 2:00 PM EST Office Visit [facility] Cancer [address] [place] [address] Hillary Webber MD Renal cell carcinoma of right kidney (HCC) (Primary Dx); Neuroendocrine carcinoma of stomach (HCC) 06/12/2024 Telephone [facility] Transplant Department [address] [place] [address] Lynda Diaz RN from Last 3 Months Immunizations Immunization Administration Dates Next Due COVID-19, Moderna, mRNA, LNP -S, Bivalent Booster, PF 03/12/2022 Hepatitis B vaccine (HEPLISA V-B) vaccine 0.5 mL IM 12/29/2022,11/03/2022,10/04/2022,2022 Pneumococcal conjugate PCV20,polysaccharide AQC242 conjugate, adjuvant, PF (Prevnar 20) 06/22/2023 Social [...] Info) Description 03/19/2025 9:00 AM EDT Follow-Up [facility] Renal Transplant [address] [place] [address] Louie Pablo MD [address] [place] [address] 03/19/2025 9:30 AM EDT Social Work [facility] Renal Transplant [address] [place] [address] Imani Livingston LICSW [address] [place] [address] Health Maintenance Due Date Last Done Comments 25 Hydroxy / Vitamin D 1959 CKD: Referral to Nutrition 1959 Cologuard 1959 Colon Cancer Screening 1960 Colonoscopy 1960 Controlled Substance Agreement 1959 FOBT / Fit Test 1959 PTH 1959 Sigmoidoscopy 1959 Ophthalmology Exam 09/21/1969 Urine Microalbumin 09/21/1969 COVID-19 Vaccine (7 - 2023-2 5 season) 2024 03/08/2023, 03/12/2022, 10/06/2021, Additional history exists Alcohol/Substance Use Screening 05/30/2024 Depression Screening and Follow-Up 05/30/2024 Social [facility] ual Screening 05/30/2024 Basic Metabolic Panel 10/03/2024 07/06/2024 , 11/03/2023, 12/11/2021 Hemoglobin A1C 12/05/2024 06/07/2024, 02/27, 03/13/2024, Additional history exists Hemoglobin 03/15/2025 03/15/2024 Phosphorus 03/15/2025 03/15/2024 DTaP,Tdap,and Td Vaccines (3 - Td or Tdap) 02/24/2032 02/23/2022, 02/04/2012, 11/10/2000 Zoster Vaccines Completed 11/24/2021, 09/17/2021 Hepatitis B Vaccines Completed 12/29/2022, 11/03/2022, 10/04/2022, Additional history exists RSV Vaccine (60+ years old a nd patients) Completed 08/18/2023 Pneumococcal Vaccine: 50+ Years Completed 12/26/2023, 06/22/2023, 05/28/2022, Additional history exists Influenza Vaccine Completed 02/23/2024, , 02/20/2022, Additional history exists CKD: Referral to Nephrology Completed 03/15/2024 HIV Screening Completed 03/15/2024, 12/09/2020 Hepatitis C Screening Completed 03/15/2024 Procedures * Due to [place] state law, this organization might not be [...] to Health Maintenance Results * Due to [place] state law, this organization might not be sharing negative HIV tests. * PET/CT Skull Base to Mid Thigh [id number] (08/02/2024 7:40 PM EST) Anatomical Region Laterality Modality Entire body Magnetic Resonan ce 08/02/2024 6:50 PM EST Narrative 08/03/2024 12:07 PM EST [facility] PET/CT Imaging Accession Number: [id number] Patient Name: Joshua Barnard Date of : 1960 Date of Exam: 08-02-2024 Referring Physician: Hillary Webber ?[facility] ?[address] [place] [address] ?[place] [address] Exam: PT Skull Base to Mid Thigh [id number] CPT 04155 Room Description: [facility] Pt4 Ga-68 Dotatate PET-CT History: History of [...] By: Annalee Mcmillan MD Procedure Note Provider, [place] - 08/03/2024 [facility] PET/CT Imaging Accession Number: [id number] Patient Name: Joshua Barnard Date of : 1960 Date of Exam: 08-02-2024 Referring Physician: Hillary Webber [address] [address] Exam: PT Skull Base to Mid Thigh [id number] CPT 71795 Room Description: [facility] Pt4 Ga-68 Dotatate PET-CT History: History of [...] extensive review of this patient's notes in [facility]. Without this review, the possibility of an erroneous interpretation of this exam could have occurred. If this radiology report contains a blank impression section, it is an incomplete radiology report. ??Please contact the interpreting radiologist or applicable radiology division as soon as possible to obtain the completed interpretation. ? Workstation ID: [id number] Narrative 07/09/2024 2:20 PM EST Indication: Renal [...] likely a bone island. Resulting Agency Comment [id number] Procedure Note Eusebio Poole MD - 07/09/2024 [...] possible to obtain thecompleted interpretation. Workstation ID: [id number] us Hillary Webber MD IM CT PROCEDURES Final Result * CT Chest [...] obtain the completed interpretation. ? Workstation ID: [id number] Up-to-date CT equipment and radiation dose reduction techniques were employed. CTDIvol: 14.8 - 18.2 mGy. DLP: 1501 mGy-cm. ??The following accession numbers are related to this dose report [id number]: [id number] Narrative 07/10/2024 9:46 AM EST Indication: ??Renal [...] 2021, likely benign. ?? Resulting Agency Comment [id number] Procedure Note Raquel Krause MD - 07/10/2024 [...] possible to obtain thecompleted interpretation. Workstation ID: [id number] Up-to-date CT equipment and radiation dose reduction techniques wereemployed. CTDIvol: 14.8 - 18.2 mGy. DLP: 1501 mGy-cm. The followingaccession numbers are related to this dose report [id number]: [id number] Hillary Webber MD [facility] [place]ED[place] Final Result * (ABNORMAL) Basic Metabolic Panel (07/06/2024 11:59 AM EST) NA 138 135 - 145 mmol/L 07/06/2024 12:39 PM EST [facility] K 4.4 3.5 - 5.3 mmol/L 07/06/2024 12:39 PM EST [facility] Cl 96(L) 98 - 107 mmol/L 07/06/2024 12:39 PM EST [facility] CO2 30 22 - 32 mmol/L 07/06/2024 12:39 PM EST [facility] BUN 19 7 - 23 mg/dL 07/06/2024 12:39 PM EST [facility] Creatinine 5.41(H) 0.60 - 1.30 mg/dL 07/06/2024 12:39 PM EST [facility] Glucose 147(H) 65 - 99 mg/dL 07/06/2024 12:39 PM EST [facility] Calcium 9.7 8.6 - 10.5 mg/dL 07/06/2024 12:39 PM EST [facility] Anion Gap 12 5 - 15 07/06/2024 12:39 PM EST [facility] eGFR 11(L) >=60 mL/min/1 .73m2 07/06/2024 12:39 PM EST [facility] Comment:The estimated glomer ular filtration rate (eGFR) is calculated using a new formula developed by the NKF-ASN task force to eliminate race-based correction factors. The new formula uses serum/plasma creatinine, age, and gender to determine eGFR. A value below 60mls/min might indicate kidney disease and will be flagged. For additional information, see Morena petit al, Am J Kidney Dis. 2021;79(2):268- 288, A Unifying Approach for GFR estimation: Recommendations of the NKF-ASN Task Force on Reassessing the Inclusion of Race in Diagnosing Kidney Disease . Blood Structure of peripheral vein / Unknown Venipuncture / Unknown 07/06/2024 11:59 AM EST 07/06/2024 12:09 PM EST us Hillary Webber MD LAB BLOOD ORDERABLES Final Resu lt [facility] [address] [place] [address], [place] * (ABNORMAL) CBC Auto Differential (03/15/2024 12:39 PM EDT) WBC 6.2 3.8 - 10.8 10*3/uL 03/15/2024 1:11 PM EDT [facility] RBC 3.90(L) 4.20 - 5.80 10*6/uL 03/15/2024 1:11 PM EDT [facility] Hemoglobin 11.9(L) 13.2 - 17.1 g/dL 03/15/2024 1:11 PM EDT [facility] Hematocrit 36.8(L) 38.5 - 50.0 % 03/15/2024 1:11 PM EDT [facility] MCV 94.4 80.0 - 100.0 fL 03/15/2024 1:11 PM EDT [facility] MCH 30.5 27.0 - 33.0 pg 03/15/2024 1:11 PM EDT [facility] MCHC 32.3 32.0 - 36.0 g/dL 03/15/2024 1:11 PM EDT [facility] RDW 14.2 11.0 - 15.0 % 03/15/2024 1:11 PM EDT [facility] Platelets 175 140 - 400 10*3/uL 03/15/2024 1:11 PM EDT [facility] MPV 11.3 7.5 - 12.5 fL 03/15/2024 1:11 PM EDT [facility] Neutrophil % 59.1 % 03/15/2024 1:11 PM EDT [facility] Immature Grans % 0.2 0.0 - 0.9 % 03/15/2024 1:11 PM EDT [facility] Lymphocyte % 28.1 % 03/15/2024 1:11 PM EDT [facility] Monocyte % 9.9 % 03/15/2024 1:11 PM EDT [facility] Eosinophil % 2.4 % 03/15/2024 1:11 PM EDT [facility] Basophil % 0.3 % 03/15/2024 1:11 PM EDT [facility] Neutrophil # 3.63 1.50 - 7.80 10*3/uL 03/15/2024 1:11 PM EDT [facility] Immature Grans # <0.03 <=0.03 10*3/uL 03/15/2024 1:11 PM EDT [facility] Lymphocyte # 1.70 0.85 - 3.90 10*3/uL 03/15/2024 1:11 PM EDT [facility] Monocyte # 0.60 0.20 - 0.95 10*3/uL 03/15/2024 1:11 PM EDT [facility] Eosinophil # 0.20 0.02 - 0.50 10*3/uL 03/15/2024 1:11 PM EDT [facility] Basophil # <0.03 0.00 - 0.20 10*3/uL 03/15/2024 1:11 PM EDT [facility] nRBC % 0.0 /100 WBCs 03/15/2024 1:11 PM EDT [facility] nRBC # <0.01 <0.01 10*3/uL 03/15/2024 1:11 PM EDT [facility] Blood Structure of peripheral vein / Unknown Venipuncture / Unknown 03/15/2024 12:39 PM EDT 03/15/2024 12:59 PM EDT us Tobias Vogt MD LAB BLOOD ORDERABLES Final Result Performing Organization Address [facility]/ZIP Co de Phone Number [facility] [address] [place] [address], * Hepatitis C Antibody w/Reflex to PCR (03/15/2024 12:39 PM EDT) Hepatitis C Antibody NON-REACT ALBINO NON-REACT ALBINO 03/16/2024 3:27 AM EDT [facility] Comment: HCV antibody was non-reactive. There is no laboratory evidence of HCV infection. In most cases, no further action is required. However, if recent HCV exposure is suspected, a test for HCV RNA (test code 89254) is suggested. For additional information please refer to http://education.Dot Medical/faq/WUN86a1 (This link is being provided for informational/ educational purposes only.) Blood Structure of peripheral vein / Unknown Venipuncture / Unknown 03/15/2024 12:39 PM EDT 03/15/2024 12:58 PM EDT Narrative [facility] - 03/16/2024 3:27 AM EDT [facility] Received Date: us Tobias Vogt MD LAB BLOOD ORDERABLES Final Result Performing Organization Address City/[facility]/ZIP Co de Phone Number [facility] [address] [facility] 3rd Floor, [place] [address], [place] [phone] [facility] [address] [facility] 3rd Floor, [place] [address], [place] [phone] * Phosphorus (03/15/2024 12:39 PM EDT) Phosphorus 3.4 2.5 - 4.5 mg/dL 03/15/2024 1:45 PM EDT [facility] Blood Structure of peripheral vein / Unknown Venipuncture / Unknown 03/15/2024 12:39 PM EDT 03/15/2024 12:58 PM EDT us Tobias Vogt MD LAB BLOOD ORDERABLES Final Result Performing Organization Address City/[facility]/ZIP Co de Phone Number [facility] [address] [place] [address], [place] * (ABNORMAL) Hemoglobin A1c (03/15/2024 12:39 PM EDT) Hemoglobin A1C 6.3(H) <5.7 % of total Hgb 03/16/2024 2:05 AM EDT [facility] Comment: For someone without known diabetes, a [...] (MG/DL) 134 mg/dL 03/16/2024 2:05 AM EDT [facility] eAG (MMOL/L) 7.4 mmol/L 03/16/2024 2:[address] [facility] Blood Structure of peripheral vein / Unknown Venipuncture / Unknown 03/15/2024 12:39 PM EDT 03/15/2024 12:59 PM EDT Narrative [facility] - 03/16/2024 2:05 AM EDT [facility] Received Date:[id number] us Tobias Vogt MD LAB BLOOD ORDERABLES Final Result [facility] [address] [facility] 3rd Floor, [place] [address], [facility] [address], [place] [address], [place] [phone] from Last 3 Months or Most Recently Relevant to Health Maintenance Insurance [facility] Advance Directives Documents on File Type Date Recorded Patient Engagement Quality Consultant Expl [facility] Health Care Proxy 03/20/2024 5:28 PM 02-27 Care Teams Movie Machine Operator Relationship Specialty Start Date End Date Patient, Has No Pcp Or Ref DO NOT EDIT THIS RECORD VIA PROVIDER ON THE FLY PCP - General Test Boring Crew Chief 03/15/24
--- OUTSIDE RECORDS SUMMARY | 2024-08-08 14:52 | XMS_ITS | Encounter Summary ---
Author Organization [employer] Address [address] [facility] 7t [place] [address] Care Team Providers Care Planting Material Carrier Name Role Phone ArcadioMacie smith Primary Care Provider [phone] Flor Clark PharmD Unavailable [phone] Reason for Visit * Reason Comments Med Refill Encounter Details Date Type Department Care Team (Late st Contact Info) Description 07/26/2023 Refill [facility] MEDICINE [address] [place] [address] Catherine Madera MD [address] [place] [address] Anxiety; Chronic neck pain Social History Tobacco [...] Description 08/15/2024 1:30 PM EDT Office Visit [facility] ADULT DENTAL [address] [place] [address] Justin Anne, DMD [address] [place] [address] 09/04/2024 2:30 PM EDT Medication Management [facility] MEDICINE [address] [place] [address] Flor Clark, DerikD [address] [place] [address] 09/11/2024 9:45 AM EDT Office Visit [address] [address] Macie Link, [address] [place] [address] 09/13/2024 9:00 AM EDT Clinical Support [address] [address] April Murrell, PADILLA 09/24/2024 3:00 PM EDT Office Visit [facility] ADULT DENTAL [address] [place] [address] Trina Arrieta documented as of this encounter Visit Diagnoses Diagnosis Anxiety Anxiety state, unspecified Chronic neck pain Cervicalgia documented in this encounter Additional Health Concerns Assessment Noted Time PHQ-9 Depression Total Score: 13 05/31/ 024 9:15 AM EST documented as of this encounter Care Teams Planting Material Carrier Relationship Specialty Start Date End Date Macie Link DO [address] [place] [address] PCP - General Family Medicine 05/30/18 Flor Clark PharmD [address] [place] [address] Pharmacist Internal Medicine 08/18/23 documented as of this encounter
--- OUTSIDE RECORDS SUMMARY | 2024-08-08 14:52 | XMS_ITS | Encounter Summary ---
Author Organization [employer] Address [address] [facility] 7t [place] [address] Care Team Providers Care Shingle Inspector Name Role Phone Macie Link DO Primary Care Provider [phone] Flor Clark PharmD Unavailable [phone] Reason for Visit * Reason Comments Med Refill Encounter Details Date Type Department Care Team (Late st Contact Info) Description 12/13/2023 Refill [facility] [address] [place] [address] Macie Link DO [address] [place] [address] Anxiety; Chronic neck pain Social History Tobacco [...] 08/15/2024 1:30 PM EDT Office Visit [facility] ADULT DENTAL [address] [place] [address] Justin Anne, DMD [address] [place] [address] 09/04/2024 2:30 PM EDT Medication Management [facility] [address] [place] [address] Flor Clark, DerikD [address] [place] [address] 09/11/2024 9:45 AM EDT Office Visit [address] [address] Macie Link, [address] [place] [address] 09/13/2024 9:00 AM EDT Clinical Support [address] [address] April Murrell, PADILLA 09/24/2024 3:00 PM EDT Office Visit [facility] [address] [place] [address] Trina Arrieta documented as of this encounter [...] documented as of this encounter Care Teams Shingle Inspector Relationship Specialty Start Date End Date Macie Link DO [address] [place] [address] PCP - General Family Medicine 05/30/18 Flor Clark PharmD [address] [place] [address] Pharmacist Internal Medicine 08/18/23 documented as of this encounter
--- OUTSIDE RECORDS SUMMARY | 2024-08-08 14:52 | XMS_ITS | Encounter Summary ---
Author Organization [employer] Address [address] [facility] 7t [place] [address] Care Team Providers Care Industrial Roof Plumber Name Role Phone Macie Link DO Primary Care Provider [phone] Flor Clark PharmD Unavailable [phone] Reason for Visit * Reason Comments Med Refill Encounter Details Date Type Department Care Team (Late st Contact Info) Description 06/01/2023 Refill [facility] MEDICINE [address] [place] [address] Macie Link DO [address] [place], [place] [phone] Anxiety; Chronic neck pain Social History Tobacco [...] Description 08/15/2024 1:30 PM EDT Office Visit [facility] ADULT DENTAL [address] [place] [address] Justin Anne, DMD [address] [place] [address] 09/04/2024 2:30 PM EDT Medication Management [facility] MEDICINE [address] [place] [address] Flor Clark, DerikD [address] [place] [address] 09/11/2024 9:45 AM EDT Office Visit [address] [address] Macie Link, [address] [place] [address] 09/13/2024 9:00 AM EDT Clinical Support [address] [address] April Murrell, PADILLA 09/24/2024 3:00 PM EDT Office Visit [facility] ADULT DENTAL [address] [place] [address] Trina Arrieta documented as of this encounter Visit Diagnoses Diagnosis Anxiety Anxiety state, unspecified Chronic neck pain Cervicalgia documented in this encounter Additional Health Concerns Assessment Noted Time PHQ-9 Depression Total Score: 13 05/31/ 024 9:15 AM EST documented as of this encounter Care Teams Industrial Roof Plumber Relationship Specialty Start Date End Date Macie Link DO [address] [place] [address] PCP - General Family Medicine 05/30/18 Flor Clark PharmD [address] [place] [address] Pharmacist Internal Medicine 08/18/23 documented as of this encounter
--- OUTSIDE RECORDS SUMMARY | 2024-08-08 14:52 | XMS_ITS | Encounter Summary ---
Author Organization [employer] Address [address] [facility] [address] 7t [place] [address] Care Team Providers Care Order Management Specialist Name Role Phone Macie Likn DO Primary Care Provider Flor Clark PharmD Unavailable [phone] Reason for Visit * Reason Onset Date Comments Appointment Request 07/26/2024 Encounter Details Date Type Department Care Team ([facility] st Contact Info) Description 07/26/2024 Telephone [facility] MEDICINE [address] [place] [address] Macie Link DO [address] [place] [address] Appointment Request Social History Tobacco Use Types [...] encounter Miscellaneous Notes * Telephone Encounter - Consuelo Charles MA - 08/02/2024 7:42 AM EST Spoke with patient schedule Annual Wellness appointment 09/11/24 at 9:45am. Mailed appt. Letter. * Telephone Encounter - Eleni Tapia - 07/26/2024 4:07 PM EST Tc from pt requesting to r/s annual wellness appointment due to pt having dialysis in the morning. Pt requesting a appointment after 11AM. documented in this encounter Plan of Treatment Upcoming Encounters Date Type Department Care Team (Late st Contact Info) Description 08/15/2024 1:30 PM EDT Office Visit [facility] ADULT DENTAL [address] [place] [address] Justin Anne, SAHY [address] [place] [address] 09/04/2024 2:30 PM EDT Medication Management [facility] MEDICINE [address] [place] [address] Flor Clark, PharmD [address] [place] [address] 09/11/2024 9:45 AM EDT Office Visit [facility] MEDICINE [address] [place] [address] Macie Link DO [address] [place] [address] 09/13/2024 9:00 AM EDT Clinical Support [facility] MEDICINE [address] [place] [address] April Murrell RN 09/24/2024 3:00 PM EDT Office Visit [facility] ADULT DENTAL [address] [place], [place] [phone] Trina Arrieta documented as of this encounter Goals Goal Patient Goal Type Associated Problems Recent Progress Patient-Stated? Author Hemoglobin A1c < 7 Result Component 7.4( 2:10 PM EST) No Flor Clark, PharmMariajose Note: A1c value is falsely low d/t dialysis. Ordered fructosamine value 08/18/23 and once resulted will use to calculate a more accurate A1c Record your blood sugar as directed Result Component No Flor Clark, PharmMariajose Note: Use CGM, ensuring sensor is scanned [...] documented as of this encounter Care Teams Order Management Specialist Relationship Specialty Start Date End Date Macie Link DO [place], [place] [phone] PCP - General Family Medicine 05/30/18 Flor Clark, DerikD [address] [place] [address] Pharmacist Internal Medicine 08/18/23 documented as of this encounter
--- OUTSIDE RECORDS SUMMARY | 2024-08-08 14:52 | XMS_ITS | Encounter Summary ---
Author Organization [employer] Address [address] [facility] [address] 7t [place] [address] Care Team Providers Care Hat And Cap Drying Room Attendant Name Role Phone Macie Link DO Primary Care Provider Flor Clark PharmD Unavailable [phone] Encounter Details Date Type Department Care Team ([facility] st Contact Info) Description 06/14/2023 Telephone [facility] 230 [place], [place] [phone] Macie Link DO 230 [place] [address] Social History Tobacco Use Types Packs/Day Years [...] Description 08/15/2024 1:30 PM EDT Office Visit [facility] ADULT DENTAL [address] [place] [address] Justin Anne, SHAY [address] [place] [address] 09/04/2024 2:30 PM EDT Medication Management [facility] [address] [place] [address] Flor Clark, DerikD [address] [place] [address] 09/11/2024 9:45 AM EDT Office Visit [address] [address] Macie Link DO [address] [place] [address] 09/13/2024 9:00 AM EDT Clinical Support [address] [address] April Murrell, RN 09/24/2024 3:00 PM EDT Office Visit [facility]ULT [facility] [address] [place] [address] Trina Arrieta documented as of this encounter Visit Diagnoses Not on filedocumented in this encounter Additional Health Concerns Assessment Noted Time PHQ-9 Depression Total Score: 13 024 9:15 AM EST documented as of this encounter Care Teams Hat And Cap Drying Room Attendant Relationship Specialty Start Date End Date Macie Link DO 230 [place] [address] PCP - General Family Medicine 05/30/18 Flor Clark PharmD 230 [place] [address] Pharmacist Internal Medicine 08/18/23 documented as of this encounter
--- OUTSIDE RECORDS SUMMARY | 2024-08-08 14:52 | XMS_ITS | Encounter Summary ---
Author Organization [facility], Address [address] [place] [address] Phone Care Team Providers Care Bb Shot Packer Name Role Phone Macie Link DO Primary Care Provider Unava ilable Encounter Details Date Type Department Care Team (Late st Contact Info) Description 03/16/2024 Documentation Only [facility], [address] [place] [address] Jimena Gibson [place] [address] [place] [address] Social History Tobacco Use Types [...] on filedocumented in this encounter Care Teams Bb Shot Packer Relationship Specialty Start Date End Date Macie Link DO PCP - General 04/03/19 documented as of this encounter
--- OUTSIDE RECORDS SUMMARY | 2024-08-08 14:52 | XMS_ITS | Encounter Summary ---
Author Organization [employer] Address 75 [facility] 7t [place] [address] Care Team Providers Care Route Cdl Driver Name Role Phone ArcadioMacie smith Primary Care Provider + [phone] Flor Clark PharmD Unavailable [phone] Reason for Visit * Reason Comments Med Refill Encounter Details Date Type Department Care Team ([facility] st Contact Info) Description 06/25/2024 Refill [facility] 230 [place] [address] Catherine Madera MD 230 [place] [address] Anxiety; Chronic neck pain Social History Tobacco [...] Office Visit [facility] ADULT DENTAL [address] [place] [address] Justin Anne, DMD [address] [place] [address] 09/04/2024 2:30 PM EDT Medication Management [facility] [address] [place] [address] Flor Clark, DerikD [address] [place] [address] 09/11/2024 9:45 AM EDT Office Visit [address] [address] Macie Link, [address] [place] [address] 09/13/2024 9:00 AM EDT Clinical Support [address] [address] April Murrell, PADILLA 09/24/2024 3:00 PM EDT Office Visit [facility] ADULT DENTAL [address] [place] [address] Trina Arrieta documented as of this encounter [...] documented as of this encounter Care Teams Route Cdl Driver Relationship Specialty Start Date End Date Macie Link DO 230 [place] [address] PCP - General Family Medicine 05/30/18 Flor Clark PharmD 230 [place] [address] Pharmacist Internal Medicine 08/18/23 documented as of this encounter
--- OUTSIDE RECORDS SUMMARY | 2024-08-08 14:52 | XMS_ITS | Encounter Summary ---
Author Organization [employer] Address [address] [facility] [address] 7t [place] [address] Care Team Providers Care Laborer Cook House Name Role Phone FaribaMacie Primary Care Provider + [phone] Flor Clark PharmD Unavailable [phone] Encounter Details Date Type Department Care Team (Latest Contact Info) Description 08/02/2024 Travel Social History Tobacco Use Types Packs/Day [...] Description 08/15/2024 1:30 PM EDT Office Visit [facility] ADULT DENTAL [address] [place] [address] Justin Anne, SHAY [address] [place] [address] 09/04/2024 2:30 PM EDT Medication Management [address] [address] Flor Clark, PharmD [address] [place] [address] 09/11/2024 9:45 AM EDT Office Visit [address] [address] Macie Link DO [address] [place] [address] 09/13/2024 9:00 AM EDT Clinical Support [address] [address] April Murrell, PADILLA 09/24/2024 3:00 PM EDT Office Visit [facility] ADULT [facility] [address] [place] [address] Trina Arrieta documented as of this encounter Goals Goal Patient Goal Type Associated Problems Recent Progress Patient-Stated? Author Hemoglobin A1c < 7 Result Component 7.4( 2:10 PM EST) No Flor Clark, PharmD Note: A1c value is falsely low d/t dialysis. Ordered fructosamine value 3/21/24 and once resulted will use to calculate [...] documented as of this encounter Care Teams Laborer Cook House Relationship Specialty Start Date End Date Macie Link DO 230 [place] [address] PCP - General Family Medicine 05/30/18 Flor Clark, Jaspreet 230 [place] [address] Pharmacist Internal Medicine 08/18/23 documented as of this encounter
--- OUTSIDE RECORDS SUMMARY | 2024-08-08 14:52 | XMS_ITS | Encounter Summary ---
Author Organization [employer] Address [address] [facility] [address] 7t [place] [address] Care Team Providers Care Director Of Event Marketing Name Role Phone FaribaCarissaMacie Primary Care Provider [phone] Flor Clark PharmD Unavailable [phone] Reason for Visit * Reason Comments [place] Encounter Details Date Type Department Care Team ([facility] st Contact Info) Description 05/31/2024 3:00 PM EST Office Visit [facility] ADULT DENTAL 230 [place] [address] Justin Anne, SHAY 230 [place] [address] Social History Tobacco Use Types Packs/Day Years [...] 1:30 PM EDT Office Visit [facility] ADULT DENTAL 230 [place] [address] Justin Anne DMD 230 [place] [address] 09/04/2024 2:30 PM EDT Medication Management [facility] MEDICINE 230 [place] [address] Flor Clark, PharmD 230 [place] [address] 09/11/2024 9:45 AM EDT Office Visit [facility] MEDICINE 230 [place] [address] Macie Link DO 230 [facility] [place] [address] 09/13/2024 9:00 AM EDT Clinical Support [facility] 230 [place], [place] [phone] April Murrell RN 09/24/2024 3:00 PM EDT Office Visit [facility] ADULT DENTAL 230 [place], [place] [phone] Trina Arrieta documented as of this encounter Goals Goal Patient Goal Type Associated Problems Recent Progress Patient-Stated? Author Hemoglobin A1c < 7 Result Component 7.4( 2:10 PM EST) No Flor Clark, DerikD Note: A1c value is falsely low d/t [...] documented as of this encounter Care Teams Director Of Event Marketing Relationship Specialty Start Date End Date Macie Link DO [place], [place] [phone] PCP - General Family Medicine 05/30/18 Flor Clark, DerikD [address] [place] [address] Pharmacist Internal Medicine 08/18/23 documented as of this encounter
--- OUTSIDE RECORDS SUMMARY | 2024-08-08 14:52 | XMS_ITS | Encounter Summary ---
Author Organization [employer] Address 75 [facility] 7t [place] [address] Care Team Providers Care Hip Hop Performers Name Role Phone Macie Link DO Primary Care Provider [phone] Flor Clark PharmD Unavailable [phone] Reason for Visit * Reason Comments Med Refill Encounter Details Date Type Department Care Team ([facility] st Contact Info) Description 08/22/2023 Refill [facility] MED[facility]INE 230 [place] [address] Macie Link DO 230 [place], [place] [phone] Chronic neck pain; Anxiety Social History Tobacco [...] 1:30 PM EDT Office Visit [facility] ADULT DENTAL [address] [place] [address] Justin Anne, DMD [address] [place] [address] 09/04/2024 2:30 PM EDT Medication Management [facility] MED[facility] [address] [place] [address] Flor Clark, DerikD [address] [place] [address] 09/11/2024 9:45 AM EDT Office Visit [address] [address] Macie Link, [address] [place] [address] 09/13/2024 9:00 AM EDT Clinical Support [address] [address] April Murrell, PADILLA 09/24/2024 3:00 PM EDT Office Visit [facility] ADULT DENTAL [address] [place] [address] Trina Arrieta documented as of this encounter [...] documented as of this encounter Care Teams Hip Hop Performers Relationship Specialty Start Date End Date Macie Link DO 230 [place] [address] PCP - General Family Medicine 05/30/18 Flor Clark PharmD 230 [place] [address] Pharmacist Internal Medicine 08/18/23 documented as of this encounter
--- OUTSIDE RECORDS SUMMARY | 2024-08-08 14:52 | XMS_ITS ---
Author Organization [facility] Address [address] [place] [address] Care Team Providers Care Horse Racetrack Manager Name Role Phone Patient, Has No Pcp Or Ref Primary Care Provider Unavailable Transplant Episode Kidney Candidate [facility] ([place], [place]) - [facility] Evaluation began on 03/15/2024 Marked as Active on 03/15/2024 Kidney CoordinatorLynda Diaz RN Fax: N/A Email: N/A Scores Score Value Updated Exceptions/Reas ons CPRA Not available EPTS (Calc) 87 08/08/2024 [place] [facility] Diagnosis Organ Primary Contributory Kidney Diabetes Mellitus - Type II Care Team Name Role Phone Fax Email Lynda Diaz RN Kidney Coordinator [phone] N/A N/A Anastacio Nickerson MD Referring Physician [phone] N/A Events Pre-Transplant Referred: 12/21/2023 Evaluation began: 03/15/2024 Dialysis History Dialysis History Start End Type Comments Center 12/17/2021 In-center Hemodialysis M, W, F [facility] Dialysis Center Information Center Phone Fax Address [facility] [phone] [address] [facility] [address] [facility] [address]
--- OUTSIDE RECORDS SUMMARY | 2024-08-08 14:52 | XMS_ITS | Encounter Summary ---
Author Organization [employer] Address 75 [facility] 7t [place] [address] Care Team Providers Care Fishing Boat Captain Name Role Phone TiffanyMacie hamilton Primary Care Provider + [phone] Flor Clark PharmD Unavailable [phone] Reason for Visit * Reason Comments Med Refill Encounter Details Date Type Department Care Team ([facility] st Contact Info) Description 05/24/2024 Refill [facility] MEDICINE 230 [place] [address] Sobia Crooks MD 230 [place] [address] Chronic neck pain Social History Tobacco Use [...] 08/15/2024 1:30 PM EDT Office Visit [facility] ADULT DENTAL [address] [place] [address] Justin Anne, DMD [address] [place] [address] 09/04/2024 2:30 PM EDT Medication Management [facility] MED[facility] [address] [place] [address] Flor Clark, DerikD [address] [place] [address] 09/11/2024 9:45 AM EDT Office Visit [address] [address] Macie Link, [address] [place] [address] 09/13/2024 9:00 AM EDT Clinical Support [address] [address] April Murrell, PADILLA 09/24/2024 3:00 PM EDT Office Visit [facility] ADULT DENTAL [address] [place] [address] Trina Arrieta documented as of this encounter [...] documented as of this encounter Care Teams Fishing Boat Captain Relationship Specialty Start Date End Date Macie Link DO 230 [place] [address] PCP - General Family Medicine 05/30/18 Flor Clark PharmD 230 [place] [address] Pharmacist Internal Medicine 08/18/23 documented as of this encounter
--- OUTSIDE RECORDS SUMMARY | 2024-08-08 14:52 | XMS_ITS | Encounter Summary ---
Author Organization [employer] Address [address] [facility] [address] 7t [place] [address] Care Team Providers Care Washer Engineer Name Role Phone Macie Link DO Primary Care Provider [phone] Flor Clark PharmD Unavailable [phone] Reason for Visit * Reason Onset Date Comments telephone call 08/02/2024 Encounter Details Date Type Department Care Team ([facility] st Contact Info) Description 08/02/2024 Telephone [facility] MED[facility]INE 230 [place] [address] Macie Link DO 230 [place] [address] telephone call Social History Tobacco Use Types Packs/Day Years [...] encounter Miscellaneous Notes * Telephone Encounter - Hoda Gibson - 08/02/2024 3:45 PM EST Call was attempted to L&C to confirm if patient needs a re-certification for his Boost Order. Unable to reach staff. Will attempt call again. * Telephone Encounter - She Su - 08/02/2024 10:41 AM EST Pt walked in stating he went to [facility] to picker box operator his Boost drink but they said they didn't have anything there for him. Pt is asking what is going on with this. documented in this encounter Plan of Treatment Upcoming Encounters Date Type Department Care Team (Late st Contact Info) Description 08/15/2024 1:30 PM EDT Office Visit [facility] ADULT DENTAL 230 [place] [address] Justin Anne, SHAY 230 [place] [address] 09/04/2024 2:30 PM EDT Medication Management [facility] MED[facility]INE 230 [place] [address] Puia, [place] [address] 09/11/2024 9:45 AM EDT Office Visit [facility] [place] [address] Macie Link DO 230 [place] [address] 09/13/2024 9:00 AM EDT Clinical Support [address] [address] April Murrell RN 09/24/2024 3:00 PM EDT Office Visit [facility] ADULT DENTAL [address] [place] [address] [phone] Trina Arrieta documented as of this encounter [...] documented as of this encounter Care Teams Washer Engineer Relationship Specialty Start Date End Date Macie Link DO [place], [place] [phone] PCP - General Family Medicine 1/1/19 Flor Clark, DerikD [address] [place] [address] Pharmacist Internal Medicine 08/18/23 documented as of this encounter
--- OUTSIDE RECORDS SUMMARY | 2024-08-08 14:52 | XMS_ITS | Encounter Summary ---
Author Organization [employer] Address [address] [facility] [address] 7t [place] [address] Care Team Providers Care Grid Maker Name Role Phone Macie Link DO Primary Care Provider [phone] Flor Clark PharmD Unavailable Reason for Visit * Reason Comments Med Refill Encounter Details Date Type Department Care Team ([facility] st Contact Info) Description 07/21/2024 Refill [facility] MEDICINE 230 [place] [address] Macie Link DO 230 [place], [place] [phone] Type 2 diabetes mellitus with other specified complication, with long-term current use of insulin ([facility]) Social History Tobacco Use Types Packs/Day Years [...] Description 08/15/2024 1:30 PM EDT Office Visit [facility] ADULT DENTAL [address] [place] [address] Justin Anne, DMD [address] [place] [address] 09/04/2024 2:30 PM EDT Medication Management [address] [address] lFor Clark, PharmD [address] [place] [address] 09/11/2024 9:45 AM EDT Office Visit [address] [address] Macie Link DO [address] [place] [address] 09/13/2024 9:00 AM EDT Clinical Support [address] [address] April Murrell RN 09/24/2024 3:00 PM EDT Office Visit [facility] ADULT DENTAL [address] [place] [address] Trina Arrieta documented as of this encounter [...] Diagnoses Diagnosis Type 2 diabetes mellitus with other specified complication, with long-term current use of insulin ([facility]) documented in this encounter Additional Health Concerns Assessment Noted Time PHQ-9 Depression Total Score: 5 12/20/19 24 9:37 AM EDT documented as of this encounter Care Teams Grid Maker Relationship Specialty Start Date End Date Macie Link DO 230 [place] [address] PCP - General Family Medicine 05/30/18 Flor Clark PharmD 230 [place] [address] Pharmacist Internal Medicine 08/18/23 documented as of this encounter
--- OUTSIDE RECORDS SUMMARY | 2024-08-08 14:52 | XMS_ITS | Encounter Summary ---
Author Organization [employer] Address [address] [facility] [address] 7t [place] [address] Care Team Providers Care Map And Chart Mounter Name Role Phone Fariba Macie Primary Care Provider [phone] Flor Clark PharmD Unavailable [phone] Encounter Details Date Type Department Care Team ([facility] st Contact Info) Description 07/25/2024 Telephone [facility] ADULT DENTAL 230 [place] [address] Justin Anne, DMD 230 [place] [address] Social History Tobacco Use Types Packs/Day Years [...] 1:30 PM EDT Office Visit [facility] ADULT DENTAL [address] [place] [address] Justin Anne, DMD [address] [place] [address] 09/04/2024 2:30 PM EDT Medication Management [facility] MEDICINE [address] [place] [address] Flor Clark PharmD [address] [place] [address] 09/11/2024 9:45 AM EDT Office Visit [address] [address] Macie Link DO [address] [place] [address] 09/13/2024 9:00 AM EDT Clinical Support [address] [address] April Murrell, RN 09/24/2024 3:00 PM EDT Office Visit [facility] ADULT DENTAL [address] [place] [address] Trina Arrieta documented as of this encounter [...] documented as of this encounter Care Teams Map And Chart Mounter Relationship Specialty Start Date End Date Macie Link DO 230 [place] [address] PCP - General Family Medicine 05/30/18 Flor Clark, Jaspreet 230 [place] [address] Pharmacist Internal Medicine 08/18/23 documented as of this encounter
--- OUTSIDE RECORDS SUMMARY | 2024-08-08 14:52 | XMS_ITS | Encounter Summary ---
Author Organization [employer] Address 75 [facility] 7t [place] [address] Care Team Providers Care Carpenter Refrigerator Name Role Phone Macie Link DO Primary Care Provider [phone] Flor Clark PharmD Unavailable [phone] Reason for Visit * Reason Comments Med Refill Encounter Details Date Type Department Care Team ([facility] st Contact Info) Description 08/08/2024 Refill [facility] MED[facility]INE 230 [place] [address] Macie Link DO [address] [place] [address] Hypothyroidism, unspecified type; Chronic GERD Social History [...] EDT Office Visit [facility] ADULT DENTAL [address] [place] [address] Justin Anne, DMD [address] [place] [address] 09/04/2024 2:30 PM EDT Medication Management [facility] MEDICINE [address] [place] [address] Flor Clark, DerikD [address] [place] [address] 09/11/2024 9:45 AM EDT Office Visit [address] [address] Macie Link, [address] [place] [address] 09/13/2024 9:00 AM EDT Clinical Support [address] [address] April Murrell, RN 09/24/2024 3:00 PM EDT Office Visit [facility] ADULT DENTAL [address] [place] [address] Trina Arrieta documented as of this encounter [...] documented as of this encounter Care Teams Carpenter Refrigerator Relationship Specialty Start Date End Date Macie Link DO [address] [place] [address] PCP - General Family Medicine 05/30/18 Flor Clark PharmD [address] [place] [address] Pharmacist Internal Medicine 08/18/23 documented as of this encounter
--- OUTSIDE RECORDS SUMMARY | 2024-08-08 14:52 | XMS_ITS | Encounter Summary ---
Author Organization [employer] Address 75 [facility] 7t [place] [address] Care Team Providers Care Transfer And Line Up Worker Name Role Phone Macie Link DO Primary Care Provider + [phone] Flor Clark PharmD Unavailable Reason for Referral * Medications - Closed Specialty Diagnoses / Procedures Referred By Contac t Referred To Contact Diagnoses Erectile dysfunction, unspecified erectile dysfunction type Cassie Jeronimo MD 230 [place] [address] Phone: tel: fax: Referral ID Status Reason Start Date Expiration Date Visits Re quested Visits Authorized [id number] Closed 07/20/2024 07/20/2025 1 1 Reason for Visit * Reason Comments Med Refill Encounter Details Date Type Department Care Team (Late st Contact Info) Description 07/18/2024 Refill [facility] MEDICINE 230 [place] [address] Macie Link DO 230 [place], [place] [phone] Anxiety; Chronic neck pain; Erectile dysfunction, unspecified erectile dysfunction type Social History Tobacco Use Types Packs/Day Years [...] Description 08/15/2024 1:30 PM EDT Office Visit [facility] ADULT DENTAL 230 [place] [address] Justin Anne, DMD 230 [place] [address] 09/04/2024 2:30 PM EDT Medication Management [facility] MEDICINE [address] [place] [address] Flor Clark, PharmD 230 [place] [address] 09/11/2024 9:45 AM EDT Office Visit [facility] MEDICINE [address] [place] [address] [place] [address] Macie Link DO 230 [facility] [place] [address] 09/13/2024 9:00 AM EDT Clinical Support [facility] [address] [facility] [place], [place] [phone] April Murrell RN 09/24/2024 3:00 PM EDT Office Visit [facility] ADULT DENTAL 230 [place], [place] [phone] Trina Arrieta documented as of this encounter [...] Anxiety state, unspecified Chronic neck pain Cervicalgia Erectile dysfunction, unspecified erectile dysfunction type documented in this encounter Additional Health Concerns Assessment Noted Time PHQ-9 Depression Total Score: 5 12/20/19 24 9:37 AM EDT documented as of this encounter Care Teams Transfer And Line Up Worker Relationship Specialty Start Date End Date Macie Link DO [facility] [place], [place] [phone] PCP - General Family Medicine 05/30/18 Flor Clark, [place]asp[place] [address] Pharmacist Internal Medicine 08/18/23 documented as of this encounter
--- OUTSIDE RECORDS SUMMARY | 2024-08-08 14:52 | XMS_ITS | Encounter Summary ---
Author Organization [facility] Address [address] [facility] 7t [place] [address] Care Team Providers Care Software Project Manager Name Role Phone Macie Link DO Primary Care Provider Flor Clark PharmD Unavailable Reason for Visit * Reason Comments Med Refill Encounter Details Date Type Department Care Team (Late st Contact Info) Description 12/31/[address] [facility] MEDICINE [address] [place] [address] Macie Link DO 230 [place] [address] Anxiety Social History Tobacco Use Types Packs/Day [...] [facility] [address] [place] [address] Justin Anne DMD 230 [place] [address] 09/04/2024 2:30 PM EDT Medication Management [facility] [address] [place] [address] Flor Clark PharmD [address] [place] [address] 09/11/2024 9:45 AM EDT Office Visit [address] [place] [address] Macie Link DO [address] [place] [address] 09/13/2024 9:00 AM EDT Clinical Support [address] [place] [place] [address] April Murrell, PADILLA 09/24/2024 3:00 PM EDT Office Visit [facility] ADULT DENTAL [address] [place], [place] [address]k[place] [address] Trina Arrieta documented as of this encounter Visit Diagnoses Diagnosis Anxiety Anxiety state, unspecified documented in this encounter Additional Health Concerns Assessment Noted Time PHQ-9 Depression Total Score: 2 07/06/19 23 9:23 AM EST documented as of this encounter Care Teams Software Project Manager Relationship Specialty Start Date End Date Macie Link DO [facility] [place] [address] PCP - General Family Medicine 05/30/18 Flor Clark PharmD [facility] [place] [address] Pharmacist Internal Medicine 08/18/23 documented as of this encounter
--- OUTSIDE RECORDS SUMMARY | 2024-08-08 14:52 | XMS_ITS | Encounter Summary ---
Author Organization [employer] Address [address] [facility] [address] 7t [place] [address] Care Team Providers Care On Air Host Name Role Phone Macie Link DO Primary Care Provider [phone] Flor Clark PharmD Unavailable [phone] Reason for Visit * Reason Comments Med Refill Encounter Details Date Type Department Care Team ([facility] st Contact Info) Description 05/24/2024 Refill [facility] MEDICINE 230 [place] [address] Macie Link DO 230 [place] [address] Anxiety Social History Tobacco Use Types Packs/Day [...] Description 08/15/2024 1:30 PM EDT Office Visit [facility] ADULT DENTAL [address] [place] [address] Justin Anne, DMD 230 [place] [address] 09/04/2024 2:30 PM EDT Medication Management [facility] [address] [place] [address] Flor Clark, PharmD [address] [place] [address] 09/11/2024 9:45 AM EDT Office Visit [address] [address] Macie Link, 230 [place] [address] 09/13/2024 9:00 AM EDT Clinical Support [address] [address] April Murrell, PADILLA 09/24/2024 3:00 PM EDT Office Visit [facility] ADULT [facility] [address] [place] [address] Trina Arrieta documented as of this encounter [...] documented as of this encounter Care Teams On Air Host Relationship Specialty Start Date End Date Macie Link DO 230 [place] [address] PCP - General Family Medicine 05/30/18 Flor Clark PharmD 230 [place] [address] Pharmacist Internal Medicine 08/18/23 documented as of this encounter
--- OUTSIDE RECORDS SUMMARY | 2024-08-08 14:53 | XMS_ITS | Encounter Summary ---
Author Organization [facility], Address [address] [place] [address] Phone Care Team Providers Care Optometrist Name Role Phone Macie Link DO Primary Care Provider Unava ilable Encounter Details Date Type Department Care Team (Late st Contact Info) Description 12/09/2021 Documentation Only [facility], [address] [place] [address] Romario Ford MD [address] [place] [phone] Social History Tobacco Use Types Packs/Day Years [...] on filedocumented in this encounter Care Teams Optometrist Relationship Specialty Start Date End Date Macie Link DO PCP - General 04/03/19 documented as of this encounter
--- OUTSIDE RECORDS SUMMARY | 2024-08-08 14:53 | XMS_ITS | Encounter Summary ---
Author Organization [employer] Address [address] [facility] [address] 7t [place] [address] Care Team Providers Care Paver Installer Name Role Phone Macie Link DO Primary Care Provider [phone] Flor Clark PharmD Unavailable [phone] Reason for Visit * Reason Comments Med Refill Encounter Details Date Type Department Care Team ([facility] st Contact Info) Description 03/14/2023 Refill [facility] MEDICINE [address] [place] [address] Macie Link DO 230 [place] [address] Anxiety; Chronic neck pain Social History Tobacco [...] 08/15/2024 1:30 PM EDT Office Visit [facility] ADULT DENTAL [address] [place] [address] Justin Anne, SHAY 230 [place] [address] 09/04/2024 2:30 PM EDT Medication Management [facility] MEDIC[facility] [address] [place] [address] Flor Clark, DerikD [address] [place] [address] 09/11/2024 9:45 AM EDT Office Visit [address] [address] Macie Link DO [address] [place] [address] 09/13/2024 9:00 AM EDT Clinical Support [address] [address] April Murrell RN 09/24/2024 3:00 PM EDT Office Visit [facility] ADULT DENTAL [address] [place] [address] Trina Arrieta documented as of this encounter Visit Diagnoses Diagnosis Anxiety Anxiety state, unspecified Chronic neck pain Cervicalgia documented in this encounter Additional Health Concerns Assessment Noted Time PHQ-9 Depression Total Score: 2 02/07/20 23 9:23 AM EST documented as of this encounter Care Teams Paver Installer Relationship Specialty Start Date End Date Macie Link DO 230 [place] [address] PCP - General Family Medicine 05/30/18 Flor Clark PharmD 230 [place] [address] Pharmacist Internal Medicine 08/18/23 documented as of this encounter
--- OUTSIDE RECORDS SUMMARY | 2024-08-08 14:53 | XMS_ITS | Encounter Summary ---
Author Organization [employer] Address [address] [facility] [address] 7t [place] [address] Care Team Providers Care Machine Feller Name Role Phone Macie Link DO Primary Care Provider [phone] Flor Clark PharmD Unavailable [phone] Reason for Visit * Reason Comments Med Refill Encounter Details Date Type Department Care Team ([facility] st Contact Info) Description 03/11/2023 Refill [facility] MEDICINE 230 [place] [address] Macie Link DO 230 [place] [address] Chronic neck pain; Anxiety Social History Tobacco [...] [facility] ADULT DENTAL [address] [place] [address] Justin Anne, SHAY [address] [place] [address] 09/04/2024 2:30 PM EDT Medication Management [facility] MEDICINE [address] [place] [address] Flor Clark, DerikD [address] [place] [address] 09/11/2024 9:45 AM EDT Office Visit [address] [address] Macie Link DO [address] [place] [address] 09/13/2024 9:00 AM EDT Clinical Support [address] [address] April Murrell RN 09/24/2024 3:00 PM EDT Office Visit [facility] ADULT DENTAL [address] [place] [address] Trina Arrieta documented as of this encounter Visit Diagnoses Diagnosis Chronic neck pain Cervicalgia Anxiety Anxiety state, unspecified documented in this encounter Additional Health Concerns Assessment Noted Time PHQ-9 Depression Total Score: 2 02/07/20 23 9:23 AM EST documented as of this encounter Care Teams Machine Feller Relationship Specialty Start Date End Date Macei Link DO 230 [place] [address] PCP - General Family Medicine 05/30/18 Flor Clark PharmD 230 [place] [address] Pharmacist Internal Medicine 08/18/23 documented as of this encounter
--- OUTSIDE RECORDS SUMMARY | 2024-08-08 14:53 | XMS_ITS | Encounter Summary ---
Author Organization [facility] [facility] Address [address] [facility] 7t [place] [address] Care Team Providers Care Mushroom Packer Name Role Phone Maice Link DO Primary Care Provider [phone] Flor Clark PharmD Unavailable Reason for Visit * Reason Comments Med Refill Encounter Details Date Type Department Care Team (Late st Contact Info) Description 01/13/2023 Refill [facility] MEDICINE [address] [place] [address] Macie Link DO 230 [place] [address] Chronic neck pain Social History Tobacco Use [...] 08/15/2024 1:30 PM EDT Office Visit [facility] ADULT DENTAL [address] [place] [address] Justin Anne DMD [address] [place] [address] 09/04/2024 2:30 PM EDT Medication Management [address] [place] [address] Flor Clark PharmD 230 [facility] [place] [address] 09/11/2024 9:45 AM EDT Office Visit [address] [address] Macie Link DO 230 [facility] [place] [address] 09/13/2024 9:00 AM EDT Clinical Support [address] [address] April Murrell, RN 09/24/2024 3:00 PM EDT Office Visit [facility] ADULT DENTAL [address] [place] [address] Trina Arrieta documented as of this encounter Visit Diagnoses Diagnosis Chronic neck pain Cervicalgia documented in this encounter Additional Health Concerns Assessment Noted Time PHQ-9 Depression Total Score: 2 07/06/19 23 9:23 AM EST documented as of this encounter Care Teams Mushroom Packer Relationship Specialty Start Date End [place] [address] PCP - General Family Medicine 05/30/18 [place] [address] Pharmacist Internal Medicine 08/18/23 documented as of this encounter
--- OUTSIDE RECORDS SUMMARY | 2024-08-08 14:53 | XMS_ITS | Encounter Summary ---
Author Organization [employer] Address [address] [facility] [address] 7t [place] [address] Care Team Providers Care Canal Boat Operator Name Role Phone Macie Link DO Primary Care Provider [phone] Flor Clark PharmD Unavailable [phone] Reason for Visit * Reason Comments Med Refill Encounter Details Date Type Department Care Team ([facility] st Contact Info) Description 03/08/2023 Refill [facility] MEDICINE [address] [place] [address] Macie Link DO 230 [place] [address] Anxiety; Chronic neck pain Social History Tobacco [...] [facility] ADULT DENTAL [address] [place] [address] Justin Anne, SHAY 230 [place] [address] 09/04/2024 2:30 PM EDT Medication Management [facility] MEDICINE [address] [place] [address] Flor Clark, DerikD [address] [place] [address] 09/11/2024 9:45 AM EDT Office Visit [address] [address] Macie Link DO [address] [place] [address] 09/13/2024 9:00 AM EDT Clinical Support [address] [address] April Murrell RN 09/24/2024 3:00 PM EDT Office Visit [facility] ADULT DENTAL [address] [place] [address] Trina Arrieta documented as of this encounter Visit Diagnoses Diagnosis Anxiety Anxiety state, unspecified Chronic neck pain Cervicalgia documented in this encounter Additional Health Concerns Assessment Noted Time PHQ-9 Depression Total Score: 2 02/07/20 23 9:23 AM EST documented as of this encounter Care Teams Canal Boat Operator Relationship Specialty Start Date End Date Macie Link DO 230 [place] [address] PCP - General Family Medicine 05/30/18 Flor Clark PharmD [address] [place] [address] Pharmacist Internal Medicine 08/18/23 documented as of this encounter
--- OUTSIDE RECORDS SUMMARY | 2024-08-08 14:53 | XMS_ITS | Encounter Summary ---
Author Organization [facility], Address [address] [place] [address] Phone Care Team Providers Care Administrative Dietitian Name Role Phone Macie Link DO Primary Care Provider Unava ilable Encounter Details Date Type Department Care Team (Late st Contact Info) Description 11/27/2021 Documentation Only [facility], [address] [place] [place] [address] Romario Ford MD [address] [place] [phone] Social History Tobacco Use Types Packs/Day Years [...] on filedocumented in this encounter Care Teams Administrative Dietitian Relationship Specialty Start Date End Date Macie Link DO PCP - General 04/03/19 documented as of this encounter
--- OUTSIDE RECORDS SUMMARY | 2024-08-08 14:53 | XMS_ITS | Encounter Summary ---
Author Organization [facility] Address [address] [facility] 7t [place] [address] Care Team Providers Care Account Resolution Analyst Name Role Phone Macie Link DO Primary Care Provider Flor Clark PharmD Unavailable [phone] Reason for Visit * Reason Comments Med Refill Encounter Details Date Type Department Care Team (Late st Contact Info) Description 01/13/[address] [facility] MEDICINE [address] [place] [address] Macie Link DO 230 [place] [address] Chronic neck pain Social History Tobacco Use [...] Description 08/15/2024 1:30 PM EDT Office Visit [facility] ADULT DENTAL [address] [place] [address] Justin Anne DMD [address] [place] [address] 09/04/2024 2:30 PM EDT Medication Management [address] [place] [address] Flor Clark PharmD 230 [facility] [place] [address] 09/11/2024 9:45 AM EDT Office Visit [address] [address] Macie Link DO 230 [facility] [place] [address] 09/13/2024 9:00 AM EDT Clinical Support [address] [address] April Murrell, RN 09/24/2024 3:00 PM EDT Office Visit [facility] ADULT DENTAL [address] [place] [address] Trina Arrieta documented as of this encounter Visit Diagnoses Diagnosis Chronic neck pain Cervicalgia documented in this encounter Additional Health Concerns Assessment Noted Time PHQ-9 Depression Total Score: 2 07/06/19 23 9:23 AM EST documented as of this encounter Care Teams Account Resolution Analyst Relationship Specialty Start Date End [place] [address] PCP - General Family Medicine 05/30/18 [place] [address] Pharmacist Internal Medicine 08/18/23 documented as of this encounter
== END 2024-08-08 13:46 | disposition home or self-care (01) ==
LOC: HO.HOS 12:50
PROVIDERS: PCP Family Medicine; Visit Provider Orthopaedic Surgery
DX: M17.0 Bilateral primary osteoarthritis of knee (principal)
CPT/HCPCS: 20610; 99213

== ENCOUNTER → 2024-08-08 12:50 | Outpatient (BNVA) | payer MEDICARE, MEDICAID, SELFPAY | PROVIDERS: PCP Family Medicine; Visit Provider Orthopaedic Surgery | DX: M17.0 Bilateral primary osteoarthritis of knee (principal) | CPT/HCPCS: 20610; 99212; J2003; J7318 ==

== ENCOUNTER 2024-08-16 11:07 | Outpatient (REF) | payer MEDICARE, MEDICAID, SELFPAY ==
--- NOTE | ~2024-08-16 | XR_ITS ---
EXAMINATION: XR CHEST 2 VIEWS HISTORY: I48.92 - Unspecified atrial flutter COMPARISON: Comparison is made with the prior examination dated 12/23/2022. FINDINGS: PA and lateral views of the chest are submitted. There is linear scarring in the lingula. The lungs are otherwise clear. There is no pleural effusion, pneumothorax, or pulmonary vascular congestion. The heart is normal in size. There is degenerative disc disease of the spine. There are surgical clips at the GE junction. XR/XR chest 2V IMPRESSION: No acute cardiopulmonary abnormality. Electronically signed by: Eusebio Johnson MD 08/17/2024 08:08 AM EDT
== END 2024-08-16 11:08 | disposition home or self-care (01) ==
LOC: HO.XRAY 11:07
PROVIDERS: PCP Family Medicine; Visit Provider Internal Medicine Cardiovascular Disease
DX: I48.92 Unspecified atrial flutter (principal); I25.10 Atherosclerotic heart disease of native coronary artery without angina pectoris; I42.9 Cardiomyopathy, unspecified
CPT/HCPCS: 71046; 93005; 99212

== ENCOUNTER 2024-08-16 11:07 | Outpatient (AMB) | payer MEDICARE, MEDICAID, SELFPAY ==
[2024-08-16 11:11] VITALS: BP 136/74; PULSE 70; BMI 31.7
--- NOTE | 2024-08-16 11:11 | MHC.OFFVIS ---
Vital Signs 08/16/24 11:11 Height 5 ft 6 in Weight 196 lb 3.382 oz BMI 31.7 BP 136/74 Blood Pressure Location Lt brachial Position Sitting Pulse 70 Intake Visit Reasons: 6 mth fu after echo Intake Note: 6 month follow-up with ekg after echo feeling good Plaster And Stucco Worker Required: No Allergies No Known Allergies Allergy (Verified 08/08/24 13:11) Medication List - Last Reconciled 08/16/24 by Jose Guy MD albuterol sulfate 90 mcg/actuation (ProAir HFA) 2 puffs PO Q6H PRN amiodarone 200 mg PO QAM amlodipine 10 mg PO DAILY apixaban (Eliquis) 5 mg PO BID 90 days atorvastatin 80 mg PO BEDTIME blood sugar diagnostic (FreeStyle Lite Strips) carvedilol 12.5 mg PO BID clonazepam 1 mg PO BID clotrimazole 1% 1 appl topical BID colchicine mg PO gabapentin 100 mg PO BID insulin aspart U-100 (Novolog FlexPen U-100 Insulin aspart) 1 sliding scale dose subcut TIDAC insulin glargine (Lantus Solostar U-100 Insulin) 34 units subcut DAILY ipratropium bromide 1 spray intranasal TID levothyroxine 112 mcg PO DAILY@0600 lidocaine 5% 1 patch topical DAILY lidocaine-prilocaine 2.5-2.5 % 1 appl topical DAILY PRN loratadine 10 mg PO Q OTHER DAY nitroglycerin 0.4 mg sublingual Q5M PRN omeprazole 40 mg PO BID oxycodone-acetaminophen 10-325 mg 1 tab PO Q4H PRN pen needle, diabetic (Pentips Pen Needle) semaglutide (Ozempic) mg subcut sevelamer carbonate 1,600 mg PO TIDWM zolpidem 10 mg PO BEDTIME HPI Comments Details: Joshua comes for follow-up. Overall he has been doing well from cardiac perspective. He was no symptoms of prolonged palpitation irregular heartbeat. Denies any heart failure symptoms. No orthopnea, PND, leg edema. No exertional chest pain. Taking all his medications. Undergoing dialysis and tolerating it well. Maybe plan to undergo renal transplant he is not 100% sure as yet. No bleeding issues or neurologic events PFSH Medical History History of cardioversion Hx of sleep apnea GERD (gastroesophageal reflux disease) Atrial flutter Colon adenomas Asthma Colon cancer screening End stage renal disease Type 2 diabetes mellitus with unspecified complications Essential hypertension Normocytic anemia Non-cardiac chest pain CAD (coronary artery disease) CVA (cerebral vascular accident) Hypertension Surgical History History of colonoscopy H/O neck surgery Hx of colonoscopy History of bladder surgery Stented coronary artery History of nephrectomy Family History Other No family history of coronary artery disease Social History Household Members: Spouse Housing: Apartment Are you a primary home child care provider to a significant other at home: No Do you presently have visiting nurse or other home services: Yes Alcohol intake: former Patient Tobacco Use Status: Former Tobacco user Tobacco use type: Cigarette service: No Current occupational status: disabled Review of Systems Const Denies chills, Denies fatigue, Denies fever(s), Denies frequent falls, Denies weakness, Denies weight gain and Denies weight loss ENT Denies dizziness Card Denies chest pain, Denies leg edema, Denies lightheadedness, Denies palpitations, Denies dyspnea, Denies dyspnea on exertion, Denies orthopnea and Denies other (loss of consciousness) Resp Denies cough, Denies dyspnea and Denies dyspnea on exertion GI Denies hematochezia and Denies change in stool character Musc Denies abnormal gait, Denies muscle weakness, Denies numbness, Denies radiating pain into limb and Denies tingling Neuro Denies abnormal gait, Denies dizziness, Denies frequent falls, Denies numbness, Denies tingling and Denies weakness Endo Denies fatigue and Denies palpitations Physical Exam Vital Signs: Last Vital Signs Pulse 70 08/16/24 11:11 BP 136/74 08/16/24 11:11 BMI result Body Mass Index 31.7 Const General: cooperative, healthy appearing, comfortable and no acute distress Orientation/consciousness: patient oriented x3 Neck Neck: Yes normal visual inspection and Yes no JVD Resp Effort & Inspection: normal respiratory effort Auscultation: clear to auscultation bilaterally, no crackles, no rales, no rhonchi and no wheezes Cardio Jugular venous distension: no JVD Rate: regular rate Rhythm: regular rhythm Heart sounds: S1 normal heart sound present, S2 normal heart sound present, no gallops, no murmurs and no rubs Peripheral pulses: Peripheral pulses 2+ throughout GI Inspection: Yes normal to inspection Neuro General: patient oriented x3 Extrem General: Yes normal to inspection, No no pedal edema and No calf tenderness Psych Appearance: grossly normal Mental Status: mental status grossly normal Speech and movement: Normal speech and movement present Office Procedures EKG Details: EKG shows normal sinus rhythm with first-degree AV block with poor R-wave progression from V1 to V3 most likely lead placement with nonspecific ST T wave changes [id number], Complete Assessment & Plan Assessment & Plan (1) CAD (coronary artery disease): Code(s): I25.10 - Atherosclerotic heart disease of [place] coronary artery without angina pectoris Category: Medical Qualifiers: Coronary Disease-Associated Artery/Lesion type: [place] artery [place] vs. transplanted heart: [place] heart Associated angina: without angina Qualified Code(s): I25.10 - Atherosclerotic heart disease of [place] coronary artery without angina pectoris Plan: Coronary artery disease with prior inferior myocardial infarction with RCA stent. Currently not having any symptoms suggestive of angina. Currently on full oral anticoagulation with Eliquis and therefore would avoid aspirin therapy to reduce bleeding risk. Blood pressure is well optimized. Encouraged to maintain activity level as tolerated and report to me any new symptoms. Continue high-intensity statin therapy with target goal LDL less than 70 mg/dL. Importance of blood pressure control was discussed and he understands advised to monitor blood pressure at home maintain a log. (2) Atrial flutter: Code(s): I48.92 - Unspecified atrial flutter Category: Medical Plan: Atrial flutter which was difficult control has finally been suppressed on amiodarone therapy in his done very well. However given his age and overall long-term toxicity with amiodarone will reduce amiodarone 200 mg daily but continue aggressively rhythm control approach. Currently on full oral anticoagulation with Eliquis at 5 mg b.i.d., patient on hemodialysis. (3) Cardiomyopathy: Code(s): I42.9 - Cardiomyopathy, unspecified Category: Medical Qualifiers: Cardiomyopathy type: unspecified Qualified Code(s): I42.9 - Cardiomyopathy, unspecified Plan: Mild cardiomyopathy without any overt signs of fluid overload or congestive heart failure. Clinically NYHA class 1. Continue dialysis with current maintenance of dry weight. Signs and symptoms of heart failure were discussed. Continue rhythm control approach as above. Continue aggressive blood pressure control which is currently well optimized. Will follow up in the clinic in 6 months time, sooner p.r.n.. Thank you for allowing me to partake in his care Orders: Orders XR chest 2V Today I48.92 - Unspecified atrial flutter Liver Panel Today I48.92 - Unspecified atrial flutter TSH reflex Free T4 Today I48.92 - Unspecified atrial flutter Medications: Changed From amiodarone 200 mg PO QAM 90 tabs 3RF I48.92 - Unspecified atrial flutter To amiodarone 100 mg (1/2 x 200 mg) PO QAM 90 tabs 3RF I48.92 - Unspecified atrial flutter Coding Level of Care Code Est Pt Level 4 (32835) Complex EM visit Add On G2211 Diagnoses Coronary artery disease involving [place] coronary artery of [place] heart without angina pectoris I25.10 Coronary Disease-Associated Artery/Lesion type: [place] artery [place] vs. transplanted heart: [place] heart Associated angina: without angina Atrial flutter I48.92 Cardiomyopathy, unspecified type I42.9 Cardiomyopathy type: unspecified CPT Codes EKG - CPT: 40725-Zdfmiymquyyqgthot, Complete ([id number])
--- OUTSIDE RECORDS SUMMARY | 2024-08-16 13:13 | XMS_ITS | Encounter Summary ---
Author Organization [facility] Address [address] [place] [address] Care Team Providers Care Vocational Case Manager Name Role Phone Patient, Has No Pcp Or Ref Primary Care Provider Unavailable Encounter Details Date Type Department Care Team (Late st Contact Info) Description 06/27/2024 Orders Only [facility] Interventional Radiology [address] [place] [address] Amanda Sweet MD [address] [place] [address] Social History Tobacco Use Types Packs/Day Years [...] Follow-Up [facility] Renal Transplant [address] [place] [address] Louie Pablo MD [address] [place] [address] 03/19/2025 9:30 AM EDT Social Work [facility] Renal Transplant [address] [place] [address] Miki, Imani, EVAPORATOR OPERATOR[address] [address] documented as of this encounter Visit Diagnoses Not on filedocumented in this encounter Care Teams Vocational Case Manager Relationship Specialty Start Date End Date Patient, Has No Pcp Or Ref DO NOT EDIT THIS RECORD VIA PROVIDER ON THE FLY PCP - General Drum Sprayer 03/15/24 documented as of this encounter
--- OUTSIDE RECORDS SUMMARY | 2024-08-16 13:13 | XMS_ITS | Encounter Summary ---
Author Organization [employer] Address [address] [facility] 7t [place] [address] Care Team Providers Care Rn Medical Surgical Name Role Phone Macie Link DO Primary Care Provider [phone] Flor Clark PharmD Unavailable [phone] Reason for Visit * Reason Comments Med Refill Encounter Details Date Type Department Care Team ([facility] st Contact Info) Description 03/29/2024 Refill [facility] [address] [place] [address] Macie Link DO [address] [place] [address] Chronic neck pain Social History Tobacco Use [...] Care Team (Late st Contact Info) Description 08/30/2024 8:00 AM EDT Office Visit [facility] [address] [place] [phone] Justin Anne, DMD [address] [place] [address] 09/04/2024 2:30 PM EDT Medication Management [facility] [address] [place] [phone] Flor Clark, PharmD [address] [place] [phone] 09/11/2024 9:45 AM EDT Office Visit [address] [address] Macie Link, [address] [place] [address] 09/13/2024 9:00 AM EDT Clinical Support [address] [address] April Murrell, PADILLA 09/24/2024 3:00 PM EDT Office Visit [facility] [address] [place] [phone] Arrieta, Trina documented as of this encounter [...] documented as of this encounter Care Teams Rn Medical Surgical Relationship Specialty Start Date End Date Macie Link DO [address] [place] [address] PCP - General Family Medicine 05/30/18 Flor Clark PharmD [address] [place] [address] Pharmacist Internal Medicine 08/18/23 documented as of this encounter
--- OUTSIDE RECORDS SUMMARY | 2024-08-16 13:13 | XMS_ITS | Encounter Summary ---
Author Organization [employer] [facility] Address [address] [facility] 7t [place] [address] Care Team Providers Care Chiseler Head Name Role Phone Macie Link DO Primary Care Provider Flor Clark PharmD Unavailable Encounter Details Date Type Department Care Team (Late st Contact Info) Description 07/27/2022 Abstract [facility] [address] [place] [address] Macie Link DO [address] [place] [address] Social History Tobacco Use Types Packs/Day Years [...] Description 08/30/2024 8:00 AM EDT Office Visit [facility] [address] [place], [place] [phone] Justin Anne, DMD [address] [facility] [place] [address] 09/04/2024 2:30 PM EDT Medication Management [address] [address] Flor Clark PharmD [address] [facility] [place] [address] 09/11/2024 9:45 AM EDT Office Visit [address] [place] [address] Macie Link DO [address] [facility] [place] [address] 09/13/2024 9:00 AM EDT Clinical Support [address] [address] April Murrell, PADILLA 09/24/2024 3:00 PM EDT Office Visit [facility] [address] [place] [phone] Trina Arrieta documented as of this encounter Visit Diagnoses Not on filedocumented in this encounter Additional Health Concerns Assessment Noted Time PHQ-9 Depression Total Score: 2 07/06/19 23 9:23 AM EST documented as of this encounter Care Teams Chiseler Head Relationship Specialty Start Date End Date Macie Link DO [facility] [place] [address] PCP - General Family Medicine 05/30/18 Flor Clark PharmD [facility] [place], [place] [phone] Pharmacist Internal Medicine 08/18/23 documented as of this encounter
--- OUTSIDE RECORDS SUMMARY | 2024-08-16 13:13 | XMS_ITS | Encounter Summary ---
Author Organization [employer] [facility] Address [address] [facility] 7t [place] [address] Care Team Providers Care Shower Attendant Name Role Phone Macie Link DO Primary Care Provider [phone] Flor Clark PharmD Unavailable Encounter Details Date Type Department Care Team (Late st Contact Info) Description 07/21/2022 Telephone [facility] [address] [place] [address] Macie Link DO [address] [place] [address] Social History Tobacco Use Types Packs/Day Years [...] Description 08/30/2024 8:00 AM EDT Office Visit [facility] [address] [place], [place] [phone] Justin Anne, DMD [address] [facility] [place] [address] 09/04/2024 2:30 PM EDT Medication Management [address] [place] [address] Flor Clark PharmD [address] [facility] [place] [address] 09/11/2024 9:45 AM EDT Office [address] [place] [address] Macie Link DO [address] [facility] [place] [address] 09/13/2024 9:00 AM EDT Clinical Support [address] [address] April Murrell, PADILLA 09/24/2024 3:00 PM EDT Office Visit [facility] [address] [place] [address] Trina Arrieta documented as of this encounter Visit Diagnoses Not on filedocumented in this encounter Additional Health Concerns Assessment Noted Time PHQ-9 Depression Total Score: 2 07/06/19 23 9:23 AM EST documented as of this encounter Care Teams Shower Attendant Relationship Specialty Start Date End Date Macie Link DO [facility] [place] [address] PCP - General Family Medicine 05/30/18 Flor Clark PharmD [facility] [place], [place] [phone] Pharmacist Internal Medicine 08/18/23 documented as of this encounter
--- OUTSIDE RECORDS SUMMARY | 2024-08-16 13:13 | XMS_ITS | Encounter Summary ---
Author Organization [facility], Address [address] [place] [address] Phone Care Team Providers Care Preparole Counseling Aide Name Role Phone Macie Link DO Primary Care Provider Unava ilable Encounter Details Date Type Department Care Team (Late st Contact Info) Description 09/04/2021 Documentation Only [facility], [address] [place] [address] Romario Ford MD [address] [place] [phone] Social History Tobacco Use Types Packs/Day Years [...] on filedocumented in this encounter Care Teams Preparole Counseling Aide Relationship Specialty Start Date End Date Macie Link DO PCP - General 04/03/19 documented as of this encounter
--- OUTSIDE RECORDS SUMMARY | 2024-08-16 13:13 | XMS_ITS | Encounter Summary ---
Author Organization [facility], Address [address] [place] [address] Phone Care Team Providers Care Exercise Physiologist Name Role Phone Macie Link DO Primary Care Provider Unava ilable Encounter Details Date Type Department Care Team (Late st Contact Info) Description 09/24/2021 Documentation Only [facility], [address] [place] [address] Romario Ford MD [address] [place] [phone] Social History Tobacco Use Types Packs/Day Years [...] on filedocumented in this encounter Care Teams Exercise Physiologist Relationship Specialty Start Date End Date Macie Link DO PCP - General 04/03/19 documented as of this encounter
--- OUTSIDE RECORDS SUMMARY | 2024-08-16 13:13 | XMS_ITS | Clinical Summary ---
Author Organization Mobile Location, [employer] Address [address] [facility] 7t [place] [address] Care Team Providers Care Linux Security Administrator Name Role Phone FaribaMacie Primary Care Provider [phone] Flor Clark PharmD Unavailable [phone] Allergies No known active allergies Medications [...] day. 15 tablet 11 024 2024 Active amLODIPine (Norvasc) 10 MG tabletIndicatio ns:Primary hypertension Take 1 tablet (10 mg) by mouth in the morning. 90 tablet 1 Active lidocaine (Lidoderm) 5 % patchIndication s:Chronic neck pain Apply 1 patch topically See administration instructions. Remove & discard patch within 12 hours or as directed by MD. 30 patch 5 Active Continuous Glucose Display Associate (FreeStyle Gurmeet 2 [place]) deviceIndicatio ns:Type 2 diabetes mellitus with chronic kidney disease on chronic dialysis, with long-term current use of insulin (CMS/[facility]) Use for continuous glucose monitoring [...] dialysis, with long-term current use of insulin (CMS/[facility]) USE DIRECTED TO TEST BLOOD [...] dialysis, with long-term current use of insulin ([facility]) INJECT 28 UNITS SUBCUTANEOUSLY ONCE [...] complication, with long-term current use of insulin ([facility]) TEST BLOOD SUGAR 3 TIMES PER DAY 100 each 11 025 Active Alcohol Swabs (Easy Touch Alcohol Prep Medium) 70 % padsIndications :Type 2 diabetes mellitus with other specified complication, with long-term current use of insulin ([facility]) Use up to 4 daily as directed 100 each 025 Active glucose blood (FreeStyle Precision Andrés Test) test stripIndication s:Type 2 diabetes mellitus with other specified complication, with long-term current use of insulin ([facility]) Use to test blood sugar up to 3 times daily, as directed 100 each 11 025 Active zolpidem (Ambien) 10 MG tabletIndicatio [...] 10 tablet 025 Active Pentips Generic Pen [place] 32G X 4 MM miscIndications :Type 2 diabetes mellitus with other specified complication, with long-term current use of insulin (CMS/HCC) USE DIRECTED FOUR TIMES DAILY 100 each 3 025 Active levothyroxine (Synthroid, Levoxyl) 125 MCG tabletIndicatio ns:Hypothyroidi sm, unspecified type TAKE 1 TABLET BY MOUTH EVERY MORNING 90 tablet 1 025 Active omeprazole (PriLOSEC) [address] capsuleIndicati ons:Chronic GERD TAKE 1 CAPSULE BY MOUTH TWICE DAILY IN THE MORNING AND IN THE EVENING WITH FOOD 180 capsule 1 025 Active amoxicillin (Amoxil) 500 MG capsule Take 4 caps 1 hour prior dental procedure 12 capsule 025 Active chlorhexidine (Peridex) 0.12 % solution Use 15 mL in the mouth or throat if needed in the morning, at noon, and at bedtime (PROPHYLAXIS) for up to 5 days. 110 mL 025 2024 Active glucose blood (OneTouch Ultra) test stripIndication s:Type 2 diabetes mellitus with chronic kidney disease on chronic dialysis, with long-term current use of insulin (CMS/HCC) Use to test blood sugar three times daily 100 each 11 025 2025 Active OneTouch Delica Lancets 33G miscIndications :Type 2 diabetes mellitus with chronic kidney disease on chronic dialysis, with long-term current use of insulin (CMS/HCC) Use to test blood sugar three times daily 100 each 11 025 Active Blood Glucose Monitoring Suppl (ONE TOUCH ULTRA 2) w/Device kitIndications: Type 2 diabetes mellitus with chronic kidney disease on chronic dialysis, with long-term current use of insulin (CMS/HCC) Use to test blood sugar three times daily 1 kit 025 Active sildenafil (Viagra) 100 MG tabletIndicatio ns:Erectile dysfunction, unspecified erectile dysfunction type Take 1 tablet (100 mg) by mouth if needed each day for erectile dysfunction. 10 tablet 024 2024 Discontinued BD Pen Needle Katerina U/F 32G X 4 MM miscIndications :Type 2 diabetes mellitus with other specified complication, with long-term current use of insulin (CMS/HCC) USE DIRECTED FOUR TIMES DAILY 100 each 5 024 2024 Discontinued clotrimazole (Lotrimin) 1 % cream Apply to Affected Areas twice daily in the morning and evening 60 g 1 024 2024 Discontinued levothyroxine (Synthroid, Levoxyl) 125 MCG tabletIndicatio ns:Hypothyroidi sm, unspecified type Take 1 tablet (125 mcg) by mouth in the morning. 90 tablet 1 2024 Discontinued omeprazole (PriLOSEC) [address] capsuleIndicati ons:Chronic GERD TAKE 1 CAPSULE BY MOUTH TWICE DAILY IN THE MORNING AND IN THE EVENING WITH FOOD 180 capsule 1 024 2024 Discontinued clonazePAM (KlonoPIN) 1 MG tabletIndicatio ns:Anxiety TAKE 1 TABLET BY MOUTH TWICE DAILY FOR 28 DAYS, 56 tablet 2024 Discontinued oxyCODONE-aceta minophen (Percocet) 10-325 MG tabletIndicatio ns:Chronic neck pain TAKE 1 TABLET BY MOUTH EVERY 4 HOURS NEEDED FOR SEVERE PAIN FOR UP TO 28 DAYS 168 tablet 2024 Discontinued zolpidem (Ambien) 10 MG tabletIndicatio ns:Anxiety TAKE 1 TABLET BY MOUTH EVERY DAY AT BEDTIME NEEDED FOR SLEEP 28 tablet 2024 Discontinued acetaminophen (Tylenol 8 Hour) 650 MG ER tablet Take 1 tablet (650 mg) by mouth every 8 (eight) hours if needed for moderate pain for up to 10 days. Do not crush, chew, or split. 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) use of insulin 05/08/2024 Type 2 [...] in intervention, Patient to reach out to [facility] team as needed, and Comply [...] Acute kidney injury superimp osed on CKD ([facility]) 02/03/2023 02/03/2023 Depression 02/03/2023 02/03/2023 [...] immunization 08/30/2022 0 02/03/2023 Fever, unspecified 08/30/2022 3 Hypotension of hemodialysis 08/30/2022 02/03/2023 Iron deficiency [...] Encounters Date Type Department Care Team Description 08/16/2024 Refill [facility] MED[facility]INE [address] [place] [address] Bhavani Rojas, PADILLA Type 2 diabetes mellitus with chronic kidney disease on chronic dialysis, with long-term current use of insulin ([facility]) 08/15/2024 1:30 PM EDT Office Visit [facility] ADULT DENTAL [address] [place] [address] Justin Anne, DMD 08/08/2024 Telephone [facility] [address], [place] [phone] Macie Link DO Prior Authorization (Lizzeth BATRES Requesd: Lidocaine 5% Patch) 08/08/2024 Refill [facility] [address] [place] [address] Macie Link DO Hypothyroidism, unspecified type; Chronic GERD 08/06/2024 Telephone [facility] [address] [place] [address] Macie Link DO Durable Medical Equipment (DME Request: Boost) 08/02/2024 Telephone [facility] [place] [address] Macie Link DO telephone call 08/02/2024 Travel 07/26/2024 1:30 PM EST Office Visit [facility] [address] [facility] [place] [address] Justin Anne, DMD 07/26/2024 Telephone [facility] [address] [facility] [place] [address] Macie Link DO Appointment Request 07/25/2024 Telephone [facility] ADULT DENTAL [address] [place] [address] Justin Anne, DMD 07/24/2024 10:00 AM EST Office Visit [facility] [address] [facility] [place] [address] Karmen Bustamante, DDS Bruxism (Primary Dx); Open fracture of tooth, initial encounter 07/21/2024 Refill [facility] [place] [address] Macie Link DO Type 2 diabetes mellitus with other specified complication, with long-term current use of insulin ([facility]) 07/18/2024 Refill [facility] [place] [address] Macie Link DO Anxiety; Chronic neck pain; Erectile dysfunction, unspecified erectile dysfunction type 06/25/2024 Refill [facility] [address] [facility] [place] [address] Catherine Madera MD Anxiety; Chronic neck pain 06/25/2024 Telephone [facility] [place] [address] Macie Link DO Med Refill 06/22/2024 Refill [facility] [address] [place] [address] Catherine Madera MD Anxiety; Chronic neck pain 06/19/2024 9:30 AM EST Clinical Support [facility] [place] [address] April Murrell, oracle fusion middleware architect neck pain (Primary Dx) 06/19/2024 Orders Only [facility] [address] [facility] [place] [address] Macie Link DO 06/19/2024 Telephone [facility] [address] [facility] [place] [address] April Murrell, PADILLA BPI & CLAIRE Scoring; Abnormal UTOX 06/19/2024 Travel 06/19/2024 Telephone [facility] [address] [facility] [place] [address] April Murrell RN Recommend COMPUTER TERMINAL OPERATOR Tier 2 06/15/2024 1:30 PM EST Office Visit [facility] ADULT DENT[facility] [address] [facility] [place] [address] Justin Anne, DMD 05/31/2024 3:00 PM EST Office Visit [facility] ADULT DENTAL [address] [facility] [place] [address] Justin Anne, DMD 05/25/2024 Telephone [facility] [address] [facility] [place] [address] Anum Sams RN Dexcom 05/24/2024 Refill [facility] [address] [facility] [place] [address] Macie Link DO Anxiety; Chronic neck pain 05/24/2024 Refill [facility] [address] [facility] [place] [address] Macie Link DO Anxiety 05/24/2024 Refill [facility] [address] [place] [address] Sobia Crooks MD Chronic neck pain 05/24/2024 Refill [facility] [address] [place] [address] Macie Link DO Pericardial effusion 05/21/2024 Refill [facility] [address] [place] [address] Flor Clark, PharmD from Last 3 Months Immunizations Name Administration [...] Sign Reading Time Taken Comments Blood Pressure 150/86 08/15/2024 1:09 PM EDT Pulse 65 03/13/2024 9:02 AM EDT Temperature [...] Description 08/30/2024 8:00 AM EDT Office Visit [facility] ADULT DENTAL [address] [place] [address] Justin Anne, DMD [address] [place] [address] 09/04/2024 2:30 PM EDT Medication Management [facility] [address] [place] [address] Flor Clark, PharmD [address] [place] [address] 09/11/2024 9:45 AM EDT Office Visit [address] [address] Macie Link DO [address] [place] [address] 09/13/2024 9:00 AM EDT Clinical Support [address] [address] April Murrell RN 09/24/2024 3:00 PM EDT Office Visit [facility] ADULT DENTAL [address] [place] [address] Trina Arrieta Health Maintenance Due Date Last [...] Additional history exists Eye Exam 11/02/2024 11/03/2023, 06/10/2023, 11/03/2023, Additional history exists Lipid Panel 11/02/2024 11/03/2023, 12/09/2020 Depression Screening 12/19/2024 12/20/2023, 12/20/19 24 Colonoscopy 03/11/2025 02/23/2022, 02/25/2016 Colorectal Cancer Screening 03/11/2025 Dental X-Ray: Bitewings 03/20/2025 03/19/20, 03/09/2024, 12/11/2014, Additional history exists Tobacco Screening 08/15/2025 08/15/2024 Dental X-Ray: Full Mouth 03/20/2027 03/19/2024, 11/27 [...] Procedure Name Priority Date/Time Associated Diagnosis Comments CASE PRESENTATION, DETAILED AND EXTENSIVE TREATMENT PLANNING Routine 08/15/2024 1:30 PM EDT 20 PREFABRICATED POST AND CORE IN ADDITION TO CROWN Routine 08/15/2024 1:30 PM EDT NO CHARGE VISIT Routine 07/26/2024 1:30 PM [...] with long-term current use of insulin (CMS/HCC) NO CHARGE PROCEDURE Routine 05/31/2024 3 :00 [...] / Unknown 06/19/2024 9:21 AM EST April Walton RN - 06/19/2024 9:21 AM EST UTOX cup Lot#[id number] Exp. 02/21/26 Internal Pass Control Macie Link DO POINT OF CARE TEST ENTER/EVENS T ORDERABLES Final Result * Drug Monitoring, Benzodiazepines, Quantitative, Urine (06/19/2024 9:00 AM EST) Nordiazepam, GCMS Urine NEGATIVE [facility] Oxazepam, GCMS Urine NEGATIVE [facility] Lorazepam GCMS Urine NEGATIVE [facility] Alprazolam, GCMS Urine NEGATIVE [facility] Alphahydroxytriazolam, GCMS Ur NEGATIVE [facility] Temazepam, GCMS Urine NEGATIVE [facility] Alphahydroxymidazolam, GCMS Ur NEGATIVE [facility] Aminoclonazepam, GCMS Urine 784 (H) [facility] Comment:REFERENCE RANGE: <25 ng/mL Flurazepam Metabolite,GCMS Ur NEGATIVE [facility] Benzodiazepines Comments SEE NOTE [facility] Comment:This drug testing is for medical treatment only.Analysis was performed as non-forensic testing andthese results should be used only by healthcareproviders to render diagnosis or treatment, or tomonitor progress of medical conditions.Benzodiazepines Notes:Aminoclonazepam detected is consistent with the use ofthe drug Clonazepam.LDT Notes:Confirmation tests were developed and their analyticalperformance characteristics have been determined by[employer]. It has not been cleared or approvedby the FDA. This assay has been validated pursuant tot CLIA regulations and is used for clinical purposes.Healthcare Providers needing Interpretation assistance,please contact us at [phone] ([phone])M- F, 8am to 10pm ESTTHIS TEST PERFORMED AT:[employer] [address] [phone] DIRECTOR: DI SPARKS MD 06/19/2024 9:00 AM EST 06/19/2024 4:11 PM EST Macie Link DO LAB URINE ORDERABLES Final R esult [facility] [address] [place] [phone] [phone] * (ABNORMAL) POCT HGB A1C (06/07/2024 2:10 PM EST) Hemoglobin A1C 7.4(A) 4.0 - 6.0 % Blood 06/07/2024 2:10 PM EST Macie Jurcsak DO POINT OF CARE TEST ENTER/EVENS T ORDERABLES Final Result * (ABNORMAL) Lipid Panel, Standard (11/03/2023 10:32 AM EDT) Triglycerides 188(H) <150 mg/dL [facility] Comment:Desirable Triglyceri de: less than 150 mg/dLBorderline High Triglyceride 150-199 mg/dLHigh Triglyceride: 200-499 mg/dLVery High Triglyceride: greater than or equal to 5OO mg/dL Cholesterol 112 <200 mg/dL [facility] Comment:Desirable Cholestero l: less than 200 mg/dLBorderline High Cholesterol: 200-239 mg/dLHigh Cholesterol: greater than 239 mg/dL LDL Cholesterol Calculated 43 <100 mg/dL [facility] Comment:Desirable LDL: less than 100 mg/dLNear Optimal/Above Optimal LDL: 110- 129 mg/dLBorderline High LDL: 130-159 mg/dLHigh LDL: 160-189 mg/dLVery High LDL: greater than or equal to 190 mg/dL HDL Cholesterol 32(L) >40 mg/dL [facility] Comment:Desirable HDL: great er than 40 mg/dL Note: This HDL assay may give artificially low results in patients with liver disease. 11/03/2023 10:3 2 AM EDT 11/03/2023 11:21 AM EDT Macie Link DO LAB BLOOD ORDERABLES Final R esult [facility] [address] [place] [phone] * Hm Colonoscopy (02/23/2022 7:37 AM EDT) Historical Provider HEALTH MAINTENANCE Final Result * HEPATITIS C AB W/REFL TO HCV RNA, QN, PCR (12/09/2020 10:36 AM EDT) HEPATITIS C ANTIBODY NON-REACT [facility] NON-REACT [facility] INDEX 0.01 <1.00 [facility] Comment: ?? HCV antibody was non-reactive. There is no laboratory ?? evidence of HCV infection. ?? In most cases, no further action is required. However, if recent HCV exposure is suspected, a test for HCV RNA (test code 41365) is suggested. ?? For additional information please refer to http://groopify/faq/RGB07i6 (This link is being provided for informational/ educational purposes only.) ?? 12/09/2020 10:3 6 AM EDT Macie Link DO HISTORICAL/NON ORDERABLE LAB S Final Result Performing Organization Address [facility] Phone Number [facility] [address] [place] [address], * HIV 1/2 ANTIGEN/ANTIBODY,FOURTH GENERATION W/RFL (12/09/2020 10:36 AM EDT) HIV-1/2 ANTIGEN AND ANTIBODIES, 4TH GENERATION W/ REFLEX NON-REACT ALBINO NON-REACT ALBINO [facility] Comment: HIV-1 antigen and HIV-1/HIV-2 [...] ? For additional information please refer to http://[employer] Hotel/faq/CXV575 (This link is being provided for informational/ educational purposes only.) ? The performance of this assay has not been clinically validated in patients less than 2 years old. ?? 12/09/2020 10:3 6 AM EDT Macie Link DO LAB BLOOD ORDERABLES Final R esult Performing Organization Address [facility] Phone Number [facility] [address] [place] [address], from Last 3 Months or Most Recently Relevant to Health Maintenance Insurance [place] [address] [place] [phone] [facility] STANDARD [employer] MEDICARE REPLACEMENT D[facility]AL[place] MEDICA[place] STAND ADULT Care Teams Linux Security Administrator Relationship Specialty Start Date End Date Macie Link DO [address] [place] [address] PCP - General Family Medicine 05/30/18 Flor Clark PharmD [address] [place] [address] Pharmacist Internal Medicine 08/18/23
--- OUTSIDE RECORDS SUMMARY | 2024-08-16 13:13 | XMS_ITS | Encounter Summary ---
Author Organization [employer] Address [address] [facility] 7t [place] [address] Care Team Providers Care Trend Investigator Name Role Phone Macie Link DO Primary Care Provider [phone] Flor Clark PharmD Unavailable [phone] Reason for Visit * Reason Comments Med Refill Encounter Details Date Type Department Care Team ([facility] st Contact Info) Description 03/30/2024 Refill [facility] MED[facility]INE [address] [place] [address] Macie Link DO [address] [place] [address] Seasonal allergic rhinitis, unspecified trigger Social History [...] Description 08/30/2024 8:00 AM EDT Office Visit [facility] ADULT DENTAL [address] [place] [address] Justin Anne, DMD [address] [place] [address] 09/04/2024 2:30 PM EDT Medication Management [facility] [address] [place] [address] Flor Clark, DerikD [address] [place] [address] 09/11/2024 9:45 AM EDT Office Visit [address] [address] Macie Link, [address] [place] [address] 09/13/2024 9:00 AM EDT Clinical Support [address] [address] April Murrell, RN 09/24/2024 3:00 PM EDT Office Visit [facility] ADULT DENTAL [address] [place] [address] Trina Arrieta documented as of this encounter [...] documented as of this encounter Care Teams Trend Investigator Relationship Specialty Start Date End Date Macie Link DO [address] [place] [address] PCP - General Family Medicine 05/30/18 Flor Clark PharmD [address] [place] [address] Pharmacist Internal Medicine 08/18/23 documented as of this encounter
--- OUTSIDE RECORDS SUMMARY | 2024-08-16 13:13 | XMS_ITS | Encounter Summary ---
Author Organization [employer] Address [address] [facility] 7t [place] [address] Care Team Providers Care Mash Tub Cooker Name Role Phone Macie Link DO Primary Care Provider [phone] Flor Clark PharmD Unavailable [phone] Reason for Visit * Reason Comments Med Refill Encounter Details Date Type Department Care Team ([facility] st Contact Info) Description 05/04/2024 Refill [facility] MEDICINE [address] [place] [address] Macie Link DO [address] [place] [address] Hypothyroidism, unspecified type; Chronic GERD Social History [...] Description 08/30/2024 8:00 AM EDT Office Visit [facility] ADULT DENTAL [address] [place] [address] Justin Anne, DMD [address] [place] [address] 09/04/2024 2:30 PM EDT Medication Management [address] [address] Flor Clark, DerikD [address] [place] [address] 09/11/2024 9:45 AM EDT Office Visit [address] [address] Macie Link, [address] [place] [address] 09/13/2024 9:00 AM EDT Clinical Support [address] [address] April Murrell, RN 09/24/2024 3:00 PM EDT Office Visit [facility] ADULT DENTAL [address] [place] [address] Trina Arrieta documented as of this encounter [...] documented as of this encounter Care Teams Mash Tub Cooker Relationship Specialty Start Date End Date Macie Link DO [address] [place] [address] PCP - General Family Medicine 05/30/18 Flor Clark PharmD [address] [place] [address] Pharmacist Internal Medicine 08/18/23 documented as of this encounter
--- OUTSIDE RECORDS SUMMARY | 2024-08-16 13:13 | XMS_ITS ---
Author Organization [facility] Address [address] [place] [address] Care Team Providers Care Blast Furnace Keeper Name Role Phone Patient, Has No Pcp [...] TotalDLP 1,501 mGy 1,501 mGy 0 mGy [id number] 21.5 mSv 21.5 mSv 0 mSv CTDIvol Max 18.2 mGy 18.2 mGy 0 mGy CTDIvol Min 14.8 mGy 14.8 mGy 0 mGy
--- OUTSIDE RECORDS SUMMARY | 2024-08-16 13:13 | XMS_ITS | Encounter Summary ---
Author Organization [facility] Address [address] [place] [address] Care Team Providers Care Olive Picker Name Role Phone Patient, Has No Pcp Or Ref Primary Care Provider Unavailable Encounter Details Date Type Department Care Team (Late st Contact Info) Description 06/28/2024 Orders Only [facility] Nuclear Medicine [address] [place] [address] Kandice Pacheco MD [address] [place] [address] Social History Tobacco Use Types Packs/Day Years [...] Info) Description 03/19/2025 9:00 AM EDT Follow-Up [facility] Renal Transplant [address] [place] [address] Louie Pablo MD [address] [place] [address] 03/19/2025 9:30 AM EDT Social Work [facility] Renal Transplant [address] [place] [address] Miki, Imani, [address] [address] documented as of this encounter Visit Diagnoses Not on filedocumented in this encounter Care Teams Olive Picker Relationship Specialty Start Date End Date Patient, Has No Pcp Or Ref DO NOT EDIT THIS RECORD VIA PROVIDER ON THE FLY PCP - General Classification Case Manager 03/15/24 documented as of this encounter
--- OUTSIDE RECORDS SUMMARY | 2024-08-16 13:13 | XMS_ITS | Encounter Summary ---
Author Organization [facility], Address [address] [place] [address] Phone Care Team Providers Care Roll Contour Grinder Name Role Phone Macie Link DO Primary Care Provider Unava ilable Encounter Details Date Type Department Care Team (Late st Contact Info) Description 09/24/2021 Documentation Only [facility], [address] [place] [address] Romario oFrd MD [address] [place] [phone] Social History Tobacco Use Types Packs/Day Years [...] on filedocumented in this encounter Care Teams Roll Contour Grinder Relationship Specialty Start Date End Date Macie Link DO PCP - General 04/03/19 documented as of this encounter
--- OUTSIDE RECORDS SUMMARY | 2024-08-16 13:13 | XMS_ITS | Encounter Summary ---
Author Organization [facility], Address [address] [place] [address] Phone Care Team Providers Care Mine Production Engineer Name Role Phone Macie Link DO Primary Care Provider Unava ilable Encounter Details Date Type Department Care Team (Late st Contact Info) Description 07/30/2021 Documentation Only [facility], [address] [place] [address] Romario Ford MD [address] [place] [phone] Social History Tobacco Use Types Packs/Day Years [...] on filedocumented in this encounter Care Teams Mine Production Engineer Relationship Specialty Start Date End Date Macie Link DO PCP - General 04/03/19 documented as of this encounter
--- OUTSIDE RECORDS SUMMARY | 2024-08-16 13:13 | XMS_ITS | Encounter Summary ---
Author Organization [facility], Address [address] [place] [address] Phone Care Team Providers Care Stitch Cleaner Name Role Phone Macie Link DO Primary Care Provider Unava ilable Encounter Details Date Type Department Care Team (Late st Contact Info) Description 09/01/2021 Documentation Only [facility], [address] [place] [place] [phone] Estefania Sung PA Social History Tobacco Use [...] on filedocumented in this encounter Care Teams Stitch Cleaner Relationship Specialty Start Date End Date Macie Link DO PCP - General 04/03/19 documented as of this encounter
--- OUTSIDE RECORDS SUMMARY | 2024-08-16 13:13 | XMS_ITS | Encounter Summary ---
Author Organization [facility], Address [address] [place] [address] Phone Care Team Providers Care Cloth Washer Name Role Phone Macie Link DO Primary Care Provider Unava ilable Encounter Details Date Type Department Care Team (Late st Contact Info) Description 08/01/2024 Treatment [facility], [address] [place] [address] Devora Pedroza MD [address] [place] [address] [place] [address] End stage renal disease; Dependence [...] care for end stage renal disease. Attending Oracle Application Consultant: DEVORA PEDROZA Dialysis Location: [facility] Schedule: Shift: 1 ADEQUACY [...] TRANSPLANT STATUS COMMENT COMMENTS: Work up at [facility] ADDITIONAL LABS WBC 4.18 (11/30/23) 6.31 (08/31/23) [...] reviewed. Dietary adjustments made in conjunction with plaster foreman. 7.Transplant: The patient is being evaluated for [...] reviewed. Dietary adjustments made in conjunction with plaster foreman. 7.Transplant: The patient is being evaluated for a kidney transplant at [facility] awaiting MRI abdomen. 06/06/24 Patient is stable [...] reviewed. Dietary adjustments made in conjunction with plaster foreman. 7.Transplant: The patient is being evaluated for a kidney transplant at [facility]. 05/14 stable awaiting appt at [facility] for eval and activation on transplant list Signed by: DEVORA PEDROZA MD on 08/01/2024 at 10:56:37 AM Transcribed by: DEVORA PEDROZA MD on 08/01/2024 at 10:56:37 AM documented in this encounter Plan of Treatment Not on file documented as of this encounter Visit Diagnoses Diagnosis End stage renal disease Dependence on renal dialysis documented in this encounter Care Teams Cloth Washer Relationship Specialty Start Date End Date Macie Link DO PCP - General 04/03/19 documented as of this encounter
--- OUTSIDE RECORDS SUMMARY | 2024-08-16 13:13 | XMS_ITS | Encounter Summary ---
Author Organization [facility] [place], Address [address] [place] [address] Phone Care Team Providers Care Laborer Stores Name Role Phone Macie Link DO Primary Care Provider Unava ilable Encounter Details Date Type Department Care Team (Late st Contact Info) Description 09/06/2021 Documentation Only [facility] [place] [place], [address] [place] [address] Romario Ford MD [address] [place] [phone] Social History Tobacco Use Types Packs/Day Years [...] on filedocumented in this encounter Care Teams Laborer Stores Relationship Specialty Start Date End Date Macie Link DO PCP - General 04/03/19 documented as of this encounter
--- OUTSIDE RECORDS SUMMARY | 2024-08-16 13:13 | XMS_ITS | Encounter Summary ---
Author Organization [facility] [place], Address [address] [place] [address] Phone Care Team Providers Care Footwear Sales Associate Name Role Phone Macie Link DO Primary Care Provider Unava ilable Encounter Details Date Type Department Care Team (Late st Contact Info) Description 10/23/2021 Documentation Only [facility], [address] [place] [address] Romario Ford MD [address] [place] [phone] Social History Tobacco Use Types Packs/Day Years [...] on filedocumented in this encounter Care Teams Footwear Sales Associate Relationship Specialty Start Date End Date Macie Link DO PCP - General 04/03/19 documented as of this encounter
--- OUTSIDE RECORDS SUMMARY | 2024-08-16 13:13 | XMS_ITS | Encounter Summary ---
Author Organization [facility] [place], Address [address] [place] [address] Phone Care Team Providers Care Cytopathology Technologist Name Role Phone Macie Link DO Primary Care Provider Unava ilable Encounter Details Date Type Department Care Team (Late st Contact Info) Description 07/10/2021 Documentation Only [facility] [place], [address] [place] [address] Romario Ford MD [address] [place] [phone] Social History Tobacco Use Types Packs/Day Years [...] on filedocumented in this encounter Care Teams Cytopathology Technologist Relationship Specialty Start Date End Date Macie Link DO PCP - General 04/03/19 documented as of this encounter
--- OUTSIDE RECORDS SUMMARY | 2024-08-16 13:13 | XMS_ITS | Encounter Summary ---
Author Organization [facility] [place], Address [address] [place] [address] Phone Care Team Providers Care Terra Cotta Mason Name Role Phone Macie Link DO Primary Care Provider Unava ilable Encounter Details Date Type Department Care Team (Late st Contact Info) Description 09/06/2021 Documentation Only [facility] [place], [address] [place] [address] Romario Ford MD [address] [place] [phone] Social History Tobacco Use Types Packs/Day Years [...] on filedocumented in this encounter Care Teams Terra Cotta Mason Relationship Specialty Start Date End Date Macie Link DO PCP - General 04/03/19 documented as of this encounter
--- OUTSIDE RECORDS SUMMARY | 2024-08-16 13:13 | XMS_ITS | Encounter Summary ---
Author Organization [facility] [place], Address [address] [place] [address] Phone Care Team Providers Care Can Vacuum Tester Name Role Phone Macie Link DO Primary Care Provider Unava ilable Encounter Details Date Type Department Care Team (Late st Contact Info) Description 09/21/2021 Documentation Only [facility], [address] [place] [address] Romario Ford MD [address] [place] [phone] Social History Tobacco Use Types Packs/Day Years [...] on filedocumented in this encounter Care Teams Can Vacuum Tester Relationship Specialty Start Date End Date Macie Link DO PCP - General 04/03/19 documented as of this encounter
--- OUTSIDE RECORDS SUMMARY | 2024-08-16 13:14 | XMS_ITS | Encounter Summary ---
Author Organization [employer] Address [address] [facility] [address] 7t [place] [address] Care Team Providers Care Marketing Teacher Name Role Phone Fariba Macie Primary Care Provider Flor Clark PharmD Unavailable [phone] Reason for Visit * Reason Comments root canal Patient presents tod ay for a rot canal on tooth #20 Encounter Details Date Type Department Care Team (Late st Contact Info) Description 07/24/2024 10:00 AM EST Office Visit [facility] ADULT D[facility]AL [address] [place] [address] Hancock-HeadleyKarmen chauhan, DDS [address] [place] [address] Bruxism (Primary Dx); Open fracture of tooth, [...] Root Canal Verified the above with patient, assistant sales manager, and provider. Confirmed via patient's chart, intraorally and by radiographs. Wood Type Finisher: not applicable Medical Hx: Vitals: There were [...] Sealer Obturation Material: Al[place] Percha Removed excess alta percha. Restorative Material: Cavit Final radiograph taken. Patient tolerated procedure well, no complications. Post op instructions given. Dismissed in good condition. NV: POC - Dr. Anne Merchandise Team Manager: Macie Garcia Dentist: Karmen Bustamante DDS documented in this encounter Plan of Treatment Upcoming Encounters Date Type Department Care Team (Late st Contact Info) Description 08/30/2024 8:00 AM EDT Office Visit [facility] ADULT DENTAL [address] [place] [address] Justin Anne, SHAY [address] [place] [address] 09/04/2024 2:30 PM EDT Medication Management [address] [address] Flor Clark, PharmD [address] [place] [address] 09/11/2024 9:45 AM EDT Office Visit [address] [address] Macie Link DO [address] [place] [address] 09/13/2024 9:00 AM EDT Clinical Support [address] [address] April Murrell RN 09/24/2024 3:00 PM EDT Office Visit [facility] ADULT DENTAL [address] [place] [address] Trina Arrieta documented as of this encounter [...] documented as of this encounter Care Teams Marketing Teacher Relationship Specialty Start Date End Date Macie Link DO [address] [place] [address] PCP - General Family Medicine 05/30/18 Flor Clark PharmD [address] [place] [address] Pharmacist Internal Medicine 08/18/23 documented as of this encounter
--- OUTSIDE RECORDS SUMMARY | 2024-08-16 13:14 | XMS_ITS | Encounter Summary ---
Author Organization [employer] Address [address] [facility] [address] 7t [place] [address] Care Team Providers Care Metal Fabricator Name Role Phone FaribaMacie Primary Care Provider [phone] Flor Clark PharmD Unavailable [phone] Reason for Visit * Reason Comments post & core #20 Encounter Details Date Type Department Care Team ([facility] st Contact Info) Description 07/26/2024 1:30 PM EST Office Visit [facility] ADULT DENTAL [address] [place] [address] Justin Anne, SHAY [address] [place] [address] Social History Tobacco Use Types Packs/Day Years [...] Description 08/30/2024 8:00 AM EDT Office Visit [facility] ADULT DENTAL [address] [place] [address] Justin Anne DMD [address] [place] [address] 09/04/2024 2:30 PM EDT Medication Management [facility] MEDICINE [address] [place] [address] Flor Clark PharmD [address] [place] [address] 09/11/2024 9:45 AM EDT Office Visit [address] [address] Macie Link DO [address] [place] [address] 09/13/2024 9:00 AM EDT Clinical Support [address] [address] April Murrell RN 09/24/2024 3:00 PM EDT Office Visit [facility] ADULT DENTAL [address] [place] [address] Trina Arrieta Scheduled Orders Name Type Priority Associated Diagnoses Orde r Schedule 20 20 CROWN PREP Dental Routine 1 Occurr ences starting 08/15/2024 documented as of this encounter Goals Goal [...] documented as of this encounter Care Teams Metal Fabricator Relationship Specialty Start Date End Date Macie Link DO [address] [place] [address] PCP - General Family Medicine 05/30/18 Flor Clark PharmD [address] [place] [address] Pharmacist Internal Medicine 08/18/23 documented as of this encounter
--- OUTSIDE RECORDS SUMMARY | 2024-08-16 13:14 | XMS_ITS | Encounter Summary ---
Author Organization [facility] [employer] [facility] Address [address] [facility] 7t [place] [address] Care Team Providers Care Signals Officer Name Role Phone Macie Link DO Primary Care Provider Flor Clark PharmD Unavailable [phone] Reason for Visit * Reason Comments Med Refill Encounter Details Date Type Department Care Team (Late st Contact Info) Description 08/13/2022 Refill [facility] MEDICINE [address] [place] [address] Macie Link DO [address] [place] [address] Anxiety Social History Tobacco Use Types Packs/Day [...] Description 08/30/2024 8:00 AM EDT Office Visit [facility] ADULT DENTAL [address] [place] [address] Justin Anne DMD 230 [place] [address] 09/04/2024 2:30 PM EDT Medication Management [facility] [address] [place] [address] Flor Clark PharmD [address] [place] [address] 09/11/2024 9:45 AM EDT Office [address] [place] [address] Macie Link DO [address] [place] [address] 09/13/2024 9:00 AM EDT Clinical Support [address] [place] [address] April Murrell, PADILLA 09/24/2024 3:00 PM EDT Office Visit [facility] ADULT DENTAL [address] [place], [place] [address] [place] [address] Trina Arritea documented as of this encounter Visit Diagnoses Diagnosis Anxiety Anxiety state, unspecified documented in this encounter Additional Health Concerns Assessment Noted Time PHQ-9 Depression Total Score: 2 07/06/19 23 9:23 AM EST documented as of this encounter Care Teams Signals Officer Relationship Specialty Start Date End Date Macie Link DO [address] [place] [address] [address] PCP - General Family Medicine 05/30/18 Flor Clark PharmD [address] [place] [address] Pharmacist Internal Medicine 08/18/23 documented as of this encounter
--- OUTSIDE RECORDS SUMMARY | 2024-08-16 13:14 | XMS_ITS | Encounter Summary ---
Author Organization [facility] [place], Address [address] [place] [address] Phone Care Team Providers Care Financial Specialist Name Role Phone Macie Link DO Primary Care Provider Unava ilable Reason for Visit * Reason Comments Med Refill Encounter Details Date Type Department Care Team (Late st Contact Info) Description 07/15/2022 Refill [facility] [place], [address] [place] [address] Romario Ford MD [address] [facility] [place] [phone] Social History Tobacco Use Types Packs/Day Years [...] on filedocumented in this encounter Care Teams Financial Specialist Relationship Specialty Start Date End Date Macie Link DO PCP - General 04/03/19 documented as of this encounter
--- OUTSIDE RECORDS SUMMARY | 2024-08-16 13:14 | XMS_ITS | Encounter Summary ---
Author Organization [employer] Address [address] [facility] 7t [place] [address] Care Team Providers Care Paint Stripper Name Role Phone ArcadioMacie smith Primary Care Provider [phone] Flor Clark PharmD Unavailable [phone] Reason for Visit * Reason Comments Med Refill Encounter Details Date Type Department Care Team ([facility] st Contact Info) Description 05/24/2024 Refill [facility] MED[facility]INE [address] [place] [address] Sobia Crooks MD [address] [place] [address] Chronic neck pain Social History Tobacco Use [...] 8:00 AM EDT Office Visit [facility] ADULT DENTAL [address] [place] [address] Justin Anne, DMD [address] [place] [address] 09/04/2024 2:30 PM EDT Medication Management [address] [address] Flor Clark, DerikD [address] [place] [address] 09/11/2024 9:45 AM EDT Office Visit [address] [address] Macie Link, [address] [place] [address] 09/13/2024 9:00 AM EDT Clinical Support [address] [address] April Murrell, PADILLA 09/24/2024 3:00 PM EDT Office Visit [facility] ADULT DENTAL [address] [place] [address] Trina Arrieta documented as of this encounter [...] documented as of this encounter Care Teams Paint Stripper Relationship Specialty Start Date End Date Macie Link DO [address] [place] [address] PCP - General Family Medicine 05/30/18 Flor Clark PharmD [address] [place] [address] Pharmacist Internal Medicine 08/18/23 documented as of this encounter
--- OUTSIDE RECORDS SUMMARY | 2024-08-16 13:14 | XMS_ITS | Encounter Summary ---
Author Organization [employer] Address [address] [facility] [address] 7t [place] [address] Care Team Providers Care Automatic Dry Starch Operator Name Role Phone Macie Link DO Primary Care Provider [phone] Flor Clark PharmD Unavailable [phone] Reason for Visit * Reason Onset Date Comments Prior Authorization 08/08/2024 Lizzeth Loya uesd: Lidocaine 5% Patch Encounter Details Date Type Department Care Team ([facility] st Contact Info) Description 08/08/2024 Telephone [facility] MEDICINE [address] [place] [address] Macie Link DO [address] [place], [place] [phone] Prior Authorization (Lizzeth BATRES Requesd: Lidocaine 5% Patch) Social History Tobacco Use Types Packs/Day Years [...] * Telephone Encounter - Hoda Gibson - 08/08/2024 3:42 PM EDT PA for Lidocaine Patches from [employer] placed on PCP desk for signature. documented in this encounter Plan of Treatment Upcoming Encounters Date Type Department Care Team (Late st Contact Info) Description 08/30/2024 8:00 AM EDT Office Visit [facility] ADULT DENTAL [address] [place] [address] Justin Anne, DMD [address] [place] [address] 09/04/2024 2:30 PM EDT Medication Management [facility] MEDICINE [address] [place] [address] Flor Clark, DerikD [address] [place] [address] 09/11/2024 9:45 AM EDT Office Visit [facility] MEDICINE [address] [place] [address] Macie Link DO [address] [place] [address] 09/13/2024 9:00 AM EDT Clinical Support [facility] MED[facility] [address] [place] [address] April Murrell, RN 09/24/2024 3:00 PM EDT Office Visit [facility] ADULT DENTAL [address] [place] [address] Trina Arrieta documented as of this encounter [...] documented as of this encounter Care Teams Automatic Dry Starch Operator Relationship Specialty Start Date End Date Macie Link DO [facility] [place], [place] [phone] PCP - General Family Medicine 05/30/18 [place] [address] Pharmacist Internal Medicine 08/18/23 documented as of this encounter
--- OUTSIDE RECORDS SUMMARY | 2024-08-16 13:14 | XMS_ITS | Encounter Summary ---
Author Organization [employer] Address [address] [facility] 7t [place] [address] Care Team Providers Care Past Due Accounts Clerk Name Role Phone Macie Link DO Primary Care Provider [phone] Flor Clark PharmD Unavailable Reason for Visit * Reason Comments Med Refill Encounter Details Date Type Department Care Team ([facility] st Contact Info) Description 07/21/2024 Refill [facility] MEDICINE [address] [place] [address] Macie Link DO 230 [place], [place] [phone] Type 2 diabetes mellitus with other specified complication, with long-term current use of insulin ([facility] Social History Tobacco Use Types Packs/Day Years [...] 8:00 AM EDT Office Visit [facility] ADULT DENTAL [address] [place] [address] Justin Anne, DMD [address] [place] [address] 09/04/2024 2:30 PM EDT Medication Management [address] [address] Flor Clark, PharmD [address] [place] [address] 09/11/2024 9:45 AM EDT Office Visit [address] [address] Macie Link DO [address] [place] [address] 09/13/2024 9:00 AM EDT Clinical Support [address] [address] April Murrell RN 09/24/2024 3:00 PM EDT Office Visit [facility] ADULT DENTAL [address] [place] [address] Trina Arrieta documented as of this encounter [...] complication, with long-term current use of insulin ([facility]) documented in this encounter Additional Health Concerns Assessment Noted Time PHQ-9 Depression Total Score: 5 12/20/19 24 9:37 AM EDT documented as of this encounter Care Teams Past Due Accounts Clerk Relationship Specialty Start Date End Date Macie Link DO [address] [place] [address] PCP - General Family Medicine 05/30/18 Flor Clark PharmD [address] [place] [address] Pharmacist Internal Medicine 08/18/23 documented as of this encounter
--- OUTSIDE RECORDS SUMMARY | 2024-08-16 13:14 | XMS_ITS | Encounter Summary ---
Author Organization [employer] Address [address] [facility] [address] 7t [place] [address] Care Team Providers Care Bottle Caser Name Role Phone FaribaMacie Primary Care Provider + [phone] Flor Clark PharmD Unavailable [phone] Encounter Details Date Type Department Care [...] Description 08/30/2024 8:00 AM EDT Office Visit [facility] ADULT DENTAL [address] [place] [address] Justin Anne, SHAY [address] [place] [address] 09/04/2024 2:30 PM EDT Medication Management [address] [address] Flor Clark, PharmD [address] [place] [address] 09/11/2024 9:45 AM EDT Office Visit [address] [address] Macie Link DO [address] [place] [address] 09/13/2024 9:00 AM EDT Clinical Support [address] [address] April Murrell, PADILLA 09/24/2024 3:00 PM EDT Office Visit [facility] ADULT DENTAL [address] [place] [address] Trina Arrieta documented as of this encounter [...] documented as of this encounter Care Teams Bottle Caser Relationship Specialty Start Date End Date Macie Lnik DO [address] [place] [address] PCP - General Family Medicine 05/30/18 Flor Clark, Jaspreet [address] [place] [address] Pharmacist Internal Medicine 08/18/23 documented as of this encounter
--- OUTSIDE RECORDS SUMMARY | 2024-08-16 13:14 | XMS_ITS | Encounter Summary ---
Author Organization [facility] [place], Address [address] [place] [address] Phone Care Team Providers Care Date Night Caregiver Name Role Phone Macie Link DO Primary Care Provider Unava ilable Reason for Visit * Reason Comments Med Refill Encounter Details Date Type Department Care Team (Late st Contact Info) Description 09/08/2022 Refill [facility], [address] [place] [address] Romario Ford MD [address] [facility] [place] [phone] Social History Tobacco Use Types Packs/Day Years [...] on filedocumented in this encounter Care Teams Date Night Caregiver Relationship Specialty Start Date End Date Macie Link DO PCP - General 04/03/19 documented as of this encounter
--- OUTSIDE RECORDS SUMMARY | 2024-08-16 13:14 | XMS_ITS | Encounter Summary ---
Author Organization [employer] [facility] Address 75 [facility] 7t [place] [address] Care Team Providers Care Clinical Coder Name Role Phone ArcadioMacie smith Primary Care Provider Flor Clark PharmD Unavailable [phone] Encounter Details Date Type Department Care Team (Late st Contact Info) Description 05/18/2022 Orders Only [facility] [address] [place] [address] Mariella Diallo LPN Social History Tobacco Use [...] Description 08/30/2024 8:00 AM EDT Office Visit [facility] ADULT DENTAL 230 [place] [address] Justin Anne, DMD 230 [place] [address] 09/04/2024 2:30 PM EDT Medication Management [facility] MED[facility] [address] [place] [address] PuiaFlor, PharmD 230 [place] [address] 09/11/2024 9:45 AM EDT Office Visit [facility] [address] [place] [address] Macie Link DO 230 [place] [address] 09/13/2024 9:00 AM EDT Clinical Support [facility] [address] [place] [address] April Murrell, PADILLA 09/24/2024 3:00 PM EDT Office Visit [facility] ADULT [facility] [address] [place] [address] Trina Arrieta documented as of this encounter Visit Diagnoses Not on filedocumented in this encounter Care Teams Clinical Coder Relationship Specialty Start Date End Date Macie Link DO [address] [place] [address] PCP - General Family Medicine 05/30/18 Flor Clark PharmD [address] [place] [address] Pharmacist Internal Medicine 08/18/23 documented as of this encounter
--- OUTSIDE RECORDS SUMMARY | 2024-08-16 13:14 | XMS_ITS | Encounter Summary ---
Author Organization [employer] Address 75 [facility] 7t [place] [address] Care Team Providers Care Social Services Designee Name Role Phone ArcadioMacie smith Primary Care Provider [phone] Flor Clark PharmD Unavailable [phone] Reason for Visit * Reason Comments Med Refill Encounter Details Date Type Department Care Team ([facility] st Contact Info) Description 06/25/2024 Refill [facility] MED[facility] 230 [place] [address] Catherine Madera MD 230 [place] [address] Anxiety; Chronic neck pain Social History Tobacco [...] Description 08/30/2024 8:00 AM EDT Office Visit [facility] ADULT DENTAL [address] [place] [address] Justin Anne, DMD [address] [place] [address] 09/04/2024 2:30 PM EDT Medication Management [address] [address] Flor Clark, DerikD [address] [place] [address] 09/11/2024 9:45 AM EDT Office Visit [address] [address] Macie Link, [address] [place] [address] 09/13/2024 9:00 AM EDT Clinical Support [address] [address] April Murrell, PADILLA 09/24/2024 3:00 PM EDT Office Visit [facility] ADULT DENTAL [address] [place] [address] Trina Arrieta documented as of this encounter [...] documented as of this encounter Care Teams Social Services Designee Relationship Specialty Start Date End Date Macie Link DO 230 [place] [address] PCP - General Family Medicine 05/30/18 Flor Clark PharmD 230 [place] [address] Pharmacist Internal Medicine 08/18/23 documented as of this encounter
--- OUTSIDE RECORDS SUMMARY | 2024-08-16 13:14 | XMS_ITS | Encounter Summary ---
Author Organization [employer] Address [address] [facility] [address] 7t [place] [address] Care Team Providers Care Frame And Scrap Crusher Name Role Phone FaribaMacie Primary Care Provider [phone] Flor Clark PharmD Unavailable [phone] Reason for Visit * Reason Comments post and core [place] Encounter Details Date Type Department Care Team ([facility] st Contact Info) Description 08/15/2024 1:30 PM EDT Office Visit [facility] ADULT DENTAL 230 [place] [address] Jacob Benson, SHAY 230 [place] [address] Social History Tobacco Use Types Packs/Day Years [...] Pressure 150/86 08/15/2024 1:09 PM EDT Pulse - - Temperature - - Respiratory Rate - - Oxygen Saturation - - Inhaled Oxygen Concentration - - Weight - - Height - - Body Mass Index - - documented in this encounter Progress Notes * Jacob Benson DMD - 08/15/2024 1:30 PM EDT Tooth#20: 1 carp of 2% Lido with 1:100,000epi, PDL infiltration, existed Cavit and cotton pellet isbeing excavated, fiberpost #3 is placed and cemented with Rely-X, composite A-3 is packed, carved, and smoothed, occlusion check. Pt satisfied NV: crown prep #20 Med: Amoxill. 500mg x 12 tabs ( dental prophylaxis due to active dialysis) Mariola documented in this encounter Miscellaneous Notes * Addendum Note - Jacob Benson DMD - 08/15/2024 1:30 PM EDTAddended by: JACOB BENSON on: 08/15/2024 03:05 PM Modules accepted: Orders documented in this encounter Plan of Treatment Upcoming Encounters Date Type Department Care Team (Late st Contact Info) Description 08/30/2024 8:00 AM EDT Office Visit [facility] ADULT DENTAL 230 [place] [address] Jacob Benson, DMD 230 [place] [address] 09/04/2024 2:30 PM EDT Medication Management [address] [address] Flor Clark PharmD 230 [place] [address] 09/11/2024 9:45 AM EDT Office Visit [address] [address] Macie Link DO 230 [place] [address] 09/13/2024 9:00 AM EDT Clinical Support [address] [address] April Murrell, PADILLA 09/24/2024 3:00 PM EDT Office Visit [facility] ADULT DENTAL 230 [place] [address] Trina Arrieta documented as of this encounter [...] Name Priority Date/Time Associated Diagnosis Comments 20 PREFABRICATED POST AND CORE IN ADDITION TO CROWN Routine 08/15/2024 1:30 PM EDT CASE PRESENTATION, DETAILED AND EXTENSIVE TREATMENT PLANNING Routine 08/15/2024 1:30 PM EDT documented in this encounter Visit Diagnoses Not on filedocumented in this encounter Additional Health Concerns Assessment Noted Time PHQ-9 Depression Total Score: 5 12/20/19 24 9:37 AM EDT documented as of this encounter Care Teams Frame And Scrap Crusher Relationship Specialty Start Date End Date Macie Link DO 230 [place] [address] PCP - General Family Medicine 05/30/18 Flor Clark PharmD 230 [place] [address] Pharmacist Internal Medicine 08/18/23 documented as of this encounter
--- OUTSIDE RECORDS SUMMARY | 2024-08-16 13:14 | XMS_ITS | Encounter Summary ---
Author Organization [employer] [facility] Address 75 [facility] 7t [place] [address] Care Team Providers Care Design Maintenance Engineer Name Role Phone Macie Link DO Primary Care Provider [phone] Flor Clark PharmD Unavailable [phone] Encounter Details Date Type Department Care Team (Late st Contact Info) Description 06/10/2022 Telephone [facility] MEDICINE [address] [place] [address] Macie Link DO 230 [place] [address] Social History Tobacco Use Types Packs/Day Years [...] 8:00 AM EDT Office Visit [facility] ADULT DENTAL [address] [place] [address] Justin Anne DMD 230 [place] [address] 09/04/2024 2:30 PM EDT Medication Management [facility] MEDICINE [address] [place] [address] PuiaFlor, PharmD 230 [place] [address] 09/11/2024 9:45 AM EDT Office Visit [facility] MED[facility] [address] [place] [address] [place] [address] 09/13/2024 9:00 AM EDT Clinical Support [facility] MED[facility] [address] [place] [address] April Murrell, PADILLA 09/24/2024 3:00 PM EDT Office Visit [facility] ADULT DENTAL [address] [place] [address] Trina Arrieta documented as of this encounter Visit Diagnoses Not on filedocumented in this encounter Care Teams Design Maintenance Engineer Relationship Specialty Start Date End Date Macie Link DO [address] [place] [address] PCP - General Family Medicine 05/30/18 Flor Clark PharmD [address] [place] [address] Pharmacist Internal Medicine 08/18/23 documented as of this encounter
--- OUTSIDE RECORDS SUMMARY | 2024-08-16 13:14 | XMS_ITS | Encounter Summary ---
Author Organization [employer] Address 75 [facility] 7t [place] [address] Care Team Providers Care Toll Service Observer Name Role Phone Macie Link DO Primary Care Provider [phone] Flor Clark PharmD Unavailable [phone] Reason for Visit * Reason Comments Med Refill Encounter Details Date Type Department Care Team ([facility] st Contact Info) Description 08/08/2024 Refill [facility] [address] [place] [address] Macie Link DO 230 [place] [address] Hypothyroidism, unspecified type; Chronic GERD Social History [...] Description 08/30/2024 8:00 AM EDT Office Visit [facility] ADULT DENTAL [address] [place] [address] Justin Anne, DMD 230 [place] [address] 09/04/2024 2:30 PM EDT Medication Management [address] [address] Flor Clark, DerikD [address] [place] [address] 09/11/2024 9:45 AM EDT Office Visit [address] [address] Macie Link, 230 [place] [address] 09/13/2024 9:00 AM EDT Clinical Support [address] [address] April Murrell, RN 09/24/2024 3:00 PM EDT Office Visit [facility] ADULT [facility] [address] [place] [address] Trina Arrieta documented as of this encounter [...] documented as of this encounter Care Teams Toll Service Observer Relationship Specialty Start Date End Date Macie Link DO 230 [place] [address] PCP - General Family Medicine 05/30/18 Flor Clark PharmD [address] [place] [address] Pharmacist Internal Medicine 08/18/23 documented as of this encounter
--- OUTSIDE RECORDS SUMMARY | 2024-08-16 13:14 | XMS_ITS | Encounter Summary ---
Author Organization [employer] Address [address] [facility] [address] 7t [place] [address] Care Team Providers Care Metal Cut Off Saw Tender Name Role Phone FaribaCarissaMacie Primary Care Provider [phone] Flor Clark PharmD Unavailable [phone] Reason for Visit * Reason Comments [place] Encounter Details Date Type Department Care Team ([facility] st Contact Info) Description 05/31/2024 3:00 PM EST Office Visit [facility] ADULT DENTAL 230 [place] [address] Justin Anne, SHAY [address] [place] [address] Social History Tobacco Use Types Packs/Day Years [...] Description 08/30/2024 8:00 AM EDT Office Visit [facility] ADULT DENTAL [address] [place] [address] Justin Anne DMD [address] [place] [address] 09/04/2024 2:30 PM EDT Medication Management [facility] [address] [place] [address] Flor Clark, PharmD 230 [place] [address] 09/11/2024 9:45 AM EDT Office Visit [facility] MED[facility] [address] [place] [address] Macie Link DO [address] [facility] [place] [address] 09/13/2024 9:00 AM EDT Clinical Support [facility] [address] [place], [place] [phone] April Murrell RN 09/24/2024 3:00 PM EDT Office Visit [facility] ADULT DENTAL [address] [place], [place] [phone] Trina Arrieta documented as of this encounter [...] as of this encounter Care Teams Metal Cut Off Saw Tender Relationship Specialty Start Date End Date Macie Link DO [place], [place] [phone] PCP - General Family Medicine 05/30/18 Flor Clark, DerikD [address] [place] [address] Pharmacist Internal Medicine 08/18/23 documented as of this encounter
--- OUTSIDE RECORDS SUMMARY | 2024-08-16 13:14 | XMS_ITS | Clinical Summary ---
Author Organization [facility], Address [address] [place] [address] Phone Care Team Providers Care Ct Technician Name Role Phone Macie Link DO [...] Date Type Department Care Team Description 08/08/2024 Treatment [facility] [place] [address] [place] [place] [address] Romario Ford MD End stage renal disease; Dependence on renal dialysis 08/01/2024 Treatment [facility] [place] [address] [place] [address] Romario Ford MD End stage renal disease; Dependence on renal dialysis 07/04/2024 Treatment [facility] [place] [place] [address] Romario Ford MD 06/20/2024 Treatment [facility], [place] [place] [address] Romario Ford MD 06/18/2024 Treatment [facility], [place] [place] [address] Romario Ford MD 06/06/2024 Treatment [facility], [place] [address] [place] [address] Romario Ford MD from Last 3 Months [...] (12/21/2023) Hemoglobin 10.1(L) 14.0 - 18.0 g/dL [facility] Hemoglobin x 3 30.3(L) 42.0 - 54.0 % [facility] 12/21/2023 12/22/2023 8:1 6 AM EDT Narrative [email or web address] - 12/22/2023 Unless otherwise specified, test(s) performed at: [facility], [address] [place], [place] [id number] SENIOR UNDERWRITING ASSISTANT: Jos Curran M.D. For any questions, please call customer service at FREQUENCY:OTHER Resulting Agency Comment Specimen source: Blood Anastacio Nickerson MD LAB BLOOD ORDERABLES Final Re sult Performing Organization Address [facility] Co de Phone Number iwi See order comments or contact performing lab Unknown, [place] * (ABNORMAL) SPECIAL CHEMISTRY (11/30/2023) Hemoglobin A1C 7.3(H) 4.8 - 5.9 % [facility] 11/30/2023 12/02/2023 1:1 5 PM EDT Narrative [email or web address] - 12/03/2023 Unless otherwise specified, test(s) performed at: [facility], [address] [place] [address] SENIOR UNDERWRITING ASSISTANT: Jos Curran M.D. For any questions, please call customer service at FREQUENCY:MONTHLY Resulting Agency Comment Specimen source: Blood Anastacio Nickerson MD LAB BLOOD BANK TEST ORDERABLE S Final Result Performing Organization Address City/[facility]/ZIP Co de Phone Number iwi See order comments or contact performing lab Unknown, [place] from Last 3 Months or Most Recently Relevant to Health Maintenance Insurance [place] Care Teams Ct Technician Relationship Specialty Start Date End Date Macie Link DO PCP - General 04/03/19
--- OUTSIDE RECORDS SUMMARY | 2024-08-16 13:14 | XMS_ITS | Encounter Summary ---
Author Organization [facility], Address [address] [place] [address] Phone Care Team Providers Care Workforce Advisor Name Role Phone Macie Link DO Primary Care Provider Unava ilable Reason for Visit * Reason Comments Med Refill Encounter Details Date Type Department Care Team (Late st Contact Info) Description 07/23/2022 Refill [facility], [address] [place] [address] Romario Ford MD [address] [facility] [place] [phone] Social History Tobacco Use Types Packs/Day Years [...] on filedocumented in this encounter Care Teams Workforce Advisor Relationship Specialty Start Date End Date Macie Link DO PCP - General 04/03/19 documented as of this encounter
--- OUTSIDE RECORDS SUMMARY | 2024-08-16 13:14 | XMS_ITS | Encounter Summary ---
Author Organization [employer] Address 75 [facility] 7t [place] [address] Care Team Providers Care Hardboard Factory Worker Name Role Phone Fariba Macie LICEA Primary Care Provider Flor Clark PharmD Unavailable Encounter Details Date Type Department Care Team (Late st Contact Info) Description 05/25/2022 Orders Only [facility] CHC MED & PEDS [address] [place] [address] Macie Stiles LPN Social History Tobacco Use [...] Department Care Team (Late Contact Info) Description 08/30/2024 8:00 AM EDT Office Visit [facility] ADULT DENTAL 230 [place] [address] Justin Anne, DMD [address] [place] [address] 09/04/2024 2:30 PM EDT Medication Management [facility] MEDICINE [address] [place] [address] PuiaFlor, PharmD [address] [place] [address] 09/11/2024 9:45 AM EDT Office Visit [facility] MEDICINE [address] [place] [address] Macie Lnik DO [address] [place] [address] 09/13/2024 9:00 AM EDT Clinical Support [facility] MEDICINE [address] [place] [address] April Murrell, PADILLA 09/24/2024 3:00 PM EDT Office Visit [facility] ADULT DENTAL [address] [place] [address] Trina Arrieta documented as of this encounter Visit Diagnoses Not on filedocumented in this encounter Care Teams Hardboard Factory Worker Relationship Specialty Start Date End Date Macie Link DO [address] [place] [address] PCP - General Family Medicine 05/30/18 Flor Clark PharmD [address] [place] [address] Pharmacist Internal Medicine 08/18/23 documented as of this encounter
--- OUTSIDE RECORDS SUMMARY | 2024-08-16 13:14 | XMS_ITS | Encounter Summary ---
Author Organization [employer] Address [address] [facility] [address] 7t [place] [address] Care Team Providers Care Creative Guru Name Role Phone Macie Link DO Primary Care Provider [phone] Flor Clark PharmD Unavailable [phone] Reason for Visit * Reason Comments Med Refill Encounter Details Date Type Department Care Team ([facility] st Contact Info) Description 05/24/2024 Refill [facility] MEDICINE [address] [place] [address] Macie Link DO [address] [place] [address] Anxiety Social History Tobacco Use Types Packs/Day [...] Description 08/30/2024 8:00 AM EDT Office Visit [facility] ADULT DENTAL [address] [place] [address] Justin Anne, DMD [address] [place] [address] 09/04/2024 2:30 PM EDT Medication Management [address] [address] Flor Clark, PharmD [address] [place] [address] 09/11/2024 9:45 AM EDT Office Visit [address] [address] Macie Link, [address] [place] [address] 09/13/2024 9:00 AM EDT Clinical Support [address] [address] April Murrell, PADILLA 09/24/2024 3:00 PM EDT Office Visit [facility] ADULT DENTAL [address] [place] [address] Trina Arrieta documented as of this encounter [...] documented as of this encounter Care Teams Creative Guru Relationship Specialty Start Date End Date Macie Link DO [address] [place] [address] PCP - General Family Medicine 05/30/18 Flor Clark PharmD [address] [place] [address] Pharmacist Internal Medicine 08/18/23 documented as of this encounter
--- OUTSIDE RECORDS SUMMARY | 2024-08-16 13:14 | XMS_ITS | Encounter Summary ---
Author Organization [employer] Address [address] [facility] [address] 7t [place] [address] Care Team Providers Care Commercial Property Manager Name Role Phone Macie Link DO Primary Care Provider [phone] Flor Clark PharmD Unavailable [phone] Reason for Visit * Reason Onset Date Comments Durable Medical Equipment 08/06/2024 DME Re quest: Boost Encounter Details Date Type Department Care Team (Late st Contact Info) Description 08/06/2024 Telephone [facility] MEDICINE [address] [place] [address] Macie Link DO 230 [place] [address] Durable Medical Equipment (DME Request: Boost) Social History Tobacco Use Types Packs/Day Years [...] * Telephone Encounter - Hoda Gibson - 08/15/2024 11:00 AM EDT DME RX for Boost generated and placed on providers desk for signature. * Telephone Encounter - Faizan Reilly - 08/06/2024 2:41 PM EDT Tc from pt from pt requesting Dme script for Boost Shake. Pt states that he doesnt have anymore. Contact pt at [phone] documented in this encounter Plan of Treatment Upcoming Encounters Date Type Department Care Team (Late st Contact Info) Description 08/30/2024 8:00 AM EDT Office Visit [facility] ADULT DENTAL [address] [place] [address] Justin Anne, SHAY [address] [place] [address] 09/04/2024 2:30 PM EDT Medication Management [facility] MEDICINE [address] [place] [address] Flor Clark, PharmD [address] [place] [address] 09/11/2024 9:45 AM EDT Office Visit [facility] MEDICINE [address] [place] [address] Macie Link DO [address] [place] [address] 09/13/2024 9:00 AM EDT Clinical Support [facility] MEDICINE [address] [place], [place] [phone] April Murrell, PADILLA 09/24/2024 3:00 PM EDT Office Visit [facility] ADULT DENTAL [address] [place], [place] [phone] Trina Arrieta documented as of this encounter [...] documented as of this encounter Care Teams Commercial Property Manager Relationship Specialty Start Date End Date Macie Link DO [address], [place] [phone] PCP - General Family Medicine 05/30/18 Flor Clark, PharmD [address] [place] [address] Pharmacist Internal Medicine 08/18/23 documented as of this encounter
--- OUTSIDE RECORDS SUMMARY | 2024-08-16 13:14 | XMS_ITS | Encounter Summary ---
Author Organization [employer] Address [address] [facility] 7t [place] [address] Care Team Providers Care Rn Discharge Name Role Phone Fariba Macie LICEA Primary Care Provider Flor Clark PharmD Unavailable Encounter Details Date Type Department Care Team (Late st Contact Info) Description 06/16/2022 Orders Only [facility] CHC MED & PEDS [address] [place] [address] Macie Stiles LPN Social History Tobacco Use [...] Description 08/30/2024 8:00 AM EDT Office Visit [facility] ADULT DENTAL 230 [place] [address] Justin Anne, DMD [address] [place] [address] 09/04/2024 2:30 PM EDT Medication Management [facility] MEDICINE [address] [place] [address] PuiaFlor, PharmD [address] [place] [address] 09/11/2024 9:45 AM EDT Office Visit [facility] MEDICINE [address] [place] [address] Macie Link DO [address] [place] [address] 09/13/2024 9:00 AM EDT Clinical Support [facility] MEDICINE [address] [place] [address] April Murrell, PADILLA 09/24/2024 3:00 PM EDT Office Visit [facility] ADULT DENTAL 230 [place] [address] Trina Arrieta documented as of this encounter Visit Diagnoses Not on filedocumented in this encounter Care Teams Rn Discharge Relationship Specialty Start Date End Date Macie Link DO [address] [place] [address] PCP - General Family Medicine 05/30/18 Flor Clark PharmD [address] [place] [address] Pharmacist Internal Medicine 08/18/23 documented as of this encounter
--- OUTSIDE RECORDS SUMMARY | 2024-08-16 13:14 | XMS_ITS | Encounter Summary ---
Author Organization [employer] Address 75 [facility] 7t [place] [address] Care Team Providers Care Field Nurse Case Manager Name Role Phone Fariba Macie Primary Care Provider Flor Clark PharmD Unavailable [phone] Encounter Details Date Type Department Care Team (Late st Contact Info) Description 08/13/2022 Orders Only [facility] MED & PEDS [address] [place], [place] [phone] Cayla Sandoval MD [address] [place] [address] Type 2 diabetes mellitus with chronic kidney disease on chronic dialysis, with long-term current use of insulin ([facility]) (Primary Dx) Social History Tobacco Use Types [...] Description 08/30/2024 8:00 AM EDT Office Visit [facility] ADULT DENTAL [address] [place] [address] Justin Anne, DMD [address] [place] [address] 09/04/2024 2:30 PM EDT Medication Management [facility] MEDICINE [address] [place] [address] Flor Clark PharmD [address] [place] [address] 09/11/2024 9:45 AM EDT Office Visit [address] [address] Macie Link DO [address] [place] [address] 09/13/2024 9:00 AM EDT Clinical Support [address] [address] April Murrell, RN 09/24/2024 3:00 PM EDT Office Visit [facility] ADULT DENTAL [address] [place] [address] Trina Arrieta documented as of this encounter Visit Diagnoses Diagnosis Type 2 diabetes mellitus with chronic kidney disease on chronic dialysis, with long-term current use of insulin ([facility])- Primary documented in this encounter Additional Health Concerns Assessment Noted Time PHQ-9 Depression Total Score: 2 07/06/19 23 9:23 AM EST documented as of this encounter Care Teams Field Nurse Case Manager Relationship Specialty Start Date End Date Macie Link DO [address] [place] [address] PCP - General Family Medicine 05/30/18 Flor Clark PharmD [address] [place] [address] Pharmacist Internal Medicine 08/18/23 documented as of this encounter
--- OUTSIDE RECORDS SUMMARY | 2024-08-16 13:14 | XMS_ITS | Encounter Summary ---
Author Organization [employer] Address [address] [facility] [address] 7t [place] [address] Care Team Providers Care Director Of Business Services Name Role Phone Fariba Macie Primary Care Provider [phone] Flor Clark PharmD Unavailable [phone] Encounter Details Date Type Department Care Team ([facility] st Contact Info) Description 07/25/2024 Telephone [facility] ADULT DENTAL [address] [place] [address] Justin Anne, DMD [address] [place] [address] Social History Tobacco Use Types Packs/Day Years [...] Description 08/30/2024 8:00 AM EDT Office Visit [facility] ADULT DENTAL [address] [place] [address] Justin Anne, DMD [address] [place] [address] 09/04/2024 2:30 PM EDT Medication Management [facility] MED[facility] [address] [place] [address] Flor Clark PharmD [address] [place] [address] 09/11/2024 9:45 AM EDT Office Visit [address] [address] Macie Link DO [address] [place] [address] 09/13/2024 9:00 AM EDT Clinical Support [address] [address] April Murrell, RN 09/24/2024 3:00 PM EDT Office Visit [facility] ADULT DENT[facility] [address] [place] [address] Trina Arrieta documented as of this encounter [...] of this encounter Care Teams Director Of Business Services Relationship Specialty Start Date End Date Macie Link DO 230 [place] [address] PCP - General Family Medicine 05/30/18 Flor Clark, Jaspreet [address] [place] [address] Pharmacist Internal Medicine 08/18/23 documented as of this encounter
--- OUTSIDE RECORDS SUMMARY | 2024-08-16 13:14 | XMS_ITS | Encounter Summary ---
Author Organization [employer] Address [address] [facility] [address] 7t [place] [address] Care Team Providers Care Fur Stretcher Name Role Phone Macie Link DO Primary Care Provider [phone] Flor Clark PharmD Unavailable [phone] Reason for Visit * Reason Comments Med Refill Encounter Details Date Type Department Care Team ([facility] st Contact Info) Description 11/05/2023 Refill [facility] MEDICINE 230 [place] [address] Macie Link DO 230 [place] [address] Asthma, unspecified asthma severity, unspecified whether complicated, [...] Description 08/30/2024 8:00 AM EDT Office Visit [facility] ADULT DENTAL [address] [place] [address] Justin Anne, DMD [address] [place] [address] 09/04/2024 2:30 PM EDT Medication Management [address] [address] Flor Clark, PharmD [address] [place] [address] 09/11/2024 9:45 AM EDT Office Visit [address] [address] Macie Link DO [address] [place] [address] 09/13/2024 9:00 AM EDT Clinical Support [address] [address] April Murrell RN 09/24/2024 3:00 PM EDT Office Visit [facility] ADULT DENTAL [address] [place] [address] Trina Arrieta documented as of this encounter [...] documented as of this encounter Care Teams Fur Stretcher Relationship Specialty Start Date End Date Macie Link DO 230 [place] [address] PCP - General Family Medicine 05/30/18 Flor Clark PharmD [address] [place] [address] Pharmacist Internal Medicine 08/18/23 documented as of this encounter
--- OUTSIDE RECORDS SUMMARY | 2024-08-16 13:14 | XMS_ITS | Encounter Summary ---
Author Organization [facility], Address [address] [place] [address] Phone Care Team Providers Care Medical Assistant Supervisor Name Role Phone Macie Link DO Primary Care Provider Unava ilable Encounter Details Date Type Department Care Team (Late st Contact Info) Description 08/08/2024 Treatment [facility], [address] [place] [address] Devora Pedroza MD [address] [place] [address] [place] [phone] End stage renal disease; Dependence on renal [...] Dialysis Note - Devora Pedroza MD - 08/08/2024 12:00 AM EDT Patient: Joshua Barnard : 1960 Note Type: Dialysis Rounds-Basic Service Date: 08/08/2024 This patient was personally seen for a basic visit as part of routine monthly dialysis care for end stage renal disease. Attending Internet Marketing Specialist: DEVORA PEDROZA MD Dialysis Location: [facility] Schedule: Shift: 1 OVERVIEW Patient is [...] TRANSPLANT STATUS COMMENT COMMENTS: Work up at [facility] ADDITIONAL LABS WBC 4.18 (11/30/23) [...] reviewed. Dietary adjustments made in conjunction with parts expediter. 7.Transplant: The patient is being evaluated for [...] reviewed. Dietary adjustments made in conjunction with parts expediter. 7.Transplant: The patient is being evaluated for a kidney transplant at [facility] awaiting MRI abdomen. 06/06/24 Patient is stable [...] reviewed. Dietary adjustments made in conjunction with parts expediter. 7.Transplant: The patient is being evaluated for a kidney transplant at [facility]. 05/14 stable awaiting appt at [facility] for eval and activation on transplant list Signed by: DEVORA PEDROZA MD on 08/08/2024 at 05:43:51 PM documented in this encounter Plan of Treatment Not on file documented as of this encounter Visit Diagnoses Diagnosis End stage renal disease Dependence on renal dialysis documented in this encounter Care Teams Medical Assistant Supervisor Relationship Specialty Start Date End Date Macie Link DO PCP - General 04/03/19 documented as of this encounter
--- OUTSIDE RECORDS SUMMARY | 2024-08-16 13:14 | XMS_ITS | Encounter Summary ---
Author Organization [employer] Address [address] [facility] [address] 7t [place] [address] Care Team Providers Care Chocolate Coater Name Role Phone Macie Link DO Primary Care Provider [phone] Flor Clark PharmD Unavailable [phone] Reason for Visit * Reason Onset Date Comments telephone call 08/02/2024 Encounter Details Date Type Department Care Team ([facility] st Contact Info) Description 08/02/2024 Telephone [facility] MEDICINE [address] [place] [address] Macie Link DO 230 [place] [address] telephone call Social History Tobacco Use Types [...] encounter Miscellaneous Notes * Telephone Encounter - Suzette Bee - 08/14/2024 2:58 PM EDT Tc from pt requesting status of DME * Telephone Encounter - Hoda Gibson - 08/02/2024 3:45 PM EST Call was attempted to L&C to confirm if patient needs a re-certification for his Boost Order. Unable to reach staff. Will attempt call again. * Telephone Encounter - She Su - 08/02/2024 10:41 AM EST Pt walked in stating he went to [facility] to tow picker his Boost drink but they said they didn't have anything there for him. Pt is asking what is going on with this. documented in this encounter Plan of Treatment Upcoming Encounters Date Type Department Care Team (Late st Contact Info) Description 08/30/2024 8:00 AM EDT Office Visit [facility] ADULT DENTAL 230 [place] [address] Justin Anne, DMD [address] [place] [address] 09/04/2024 2:30 PM EDT Medication Management [facility] [address] [place] [address] Flor Clark PharmD 230 [place] [address] 09/11/2024 9:45 AM EDT Office Visit [address] [address] Macie Link DO 230 [place] [address] 09/13/2024 9:00 AM EDT Clinical Support [address] [address] April Murrell RN 09/24/2024 3:00 PM EDT Office Visit [facility] ADULT DENTAL [address] [place] [address] Trina Arrieta documented as of this encounter [...] Time PHQ-9 Depression Total Score: 5 12/20/19 9:37 AM EDT documented as of this encounter Care Teams Chocolate Coater Relationship Specialty Start Date End Date Macie Link DO 230 [place] [address] PCP - General Family Medicine 05/30/18 Flor Clark PharmD 230 [place] [address] Pharmacist Internal Medicine 08/18/23 documented as of this encounter
--- OUTSIDE RECORDS SUMMARY | 2024-08-16 13:14 | XMS_ITS | Encounter Summary ---
Author Organization [employer] Address [address] [facility] [address] 7t [place] [address] Care Team Providers Care Smash Hand Name Role Phone TiffanyMacie hamilton Primary Care Provider Flor Clark PharmD Unavailable Encounter Details Date Type Department Care Team (Late st Contact Info) Description 07/30/2022 Orders Only [facility] MEDICINE [address] [place] [address] Cassie Jeronimo MD [address] [place] [address] Chronic neck pain (Primary Dx) Social History [...] Description 08/30/2024 8:00 AM EDT Office Visit [facility] ADULT DENTAL [address] [place] [address] Justin Anne, DMD [address] [place] [address] 09/04/2024 2:30 PM EDT Medication Management [address] [address] Flor Clark PharmD [address] [place] [address] 09/11/2024 9:45 AM EDT Office Visit [address] [address] Macie Link DO [address] [place] [address] 09/13/2024 9:00 AM EDT Clinical Support [address] [address] April Murrell, RN 09/24/2024 3:00 PM EDT Office Visit [facility] ADULT DENTAL [address] [place] [address] Trina Arrieta documented as of this encounter Visit Diagnoses Diagnosis Chronic neck pain- Primary Cervicalgia documented in this encounter Additional Health Concerns Assessment Noted Time PHQ-9 Depression Total Score: 2 07/06/19 23 9:23 AM EST documented as of this encounter Care Teams Smash Hand Relationship Specialty Start Date End Date Macie Link DO [address] [place] [address] PCP - General Family Medicine 05/30/18 Flor Clark PharmD [address] [place] [address] Pharmacist Internal Medicine 08/18/23 documented as of this encounter
--- OUTSIDE RECORDS SUMMARY | 2024-08-16 13:14 | XMS_ITS | Encounter Summary ---
Author Organization [employer] Address 75 [facility] 7t [place] [address] Care Team Providers Care Boat Fueler Name Role Phone Macie Link DO Primary Care Provider [phone] Flor Clark PharmD Unavailable [phone] Reason for Visit * Reason Comments Med Refill Encounter Details Date Type Department Care Team (Late st Contact Info) Description 02/06/2024 Refill [facility] MEDICINE 230 [place] [address] Macie Link DO 230 [place] [address] Chronic neck pain; Anxiety Social History Tobacco [...] Description 08/30/2024 8:00 AM EDT Office Visit [facility] ADULT DENTAL [address] [place] [address] Justin Anne, DMD [address] [place] [address] 09/04/2024 2:30 PM EDT Medication Management [address] [address] Flor Clark, DerikD [address] [place] [address] 09/11/2024 9:45 AM EDT Office Visit [address] [address] Macie Link, [address] [place] [address] 09/13/2024 9:00 AM EDT Clinical Support [address] [address] April Murrell, PADILLA 09/24/2024 3:00 PM EDT Office Visit [facility] ADULT DENTAL [address] [place] [address] Trina Arrieta documented as of this encounter [...] documented as of this encounter Care Teams Boat Fueler Relationship Specialty Start Date End Date Macie Link DO 230 [place] [address] PCP - General Family Medicine 05/30/18 Flor Clark PharmD 230 [place] [address] Pharmacist Internal Medicine 08/18/23 documented as of this encounter
--- OUTSIDE RECORDS SUMMARY | 2024-08-16 13:14 | XMS_ITS | Encounter Summary ---
Author Organization [employer] Address 75 [facility] 7t [place] [address] Care Team Providers Care Oracle Agile Plm Consultant Name Role Phone Macie Link DO Primary Care Provider [phone] Flor Clark PharmD Unavailable [phone] Reason for Visit * Reason Comments Med Refill Encounter Details Date Type Department Care Team ([facility] st Contact Info) Description 03/05/2024 Refill [facility] MEDICINE 230 [place] [address] Macie Link DO 230 [place] [address] Seasonal allergic rhinitis, unspecified trigger Social History [...] Description 08/30/2024 8:00 AM EDT Office Visit [facility] ADULT DENTAL [address] [place] [address] Justin Anne, DMD [address] [place] [address] 09/04/2024 2:30 PM EDT Medication Management [facility] MEDICINE [address] [place] [address] Flor Clark, DerikD [address] [place] [address] 09/11/2024 9:45 AM EDT Office Visit [address] [address] Macie Link, [address] [place] [address] 09/13/2024 9:00 AM EDT Clinical Support [address] [address] April Murrell, RN 09/24/2024 3:00 PM EDT Office Visit [facility] ADULT DENTAL [address] [place] [address] Trina Arrieta documented as of this encounter [...] documented as of this encounter Care Teams [employer] Consultant Relationship Specialty Start Date End Date Macie Link DO [address] [place] [address] PCP - General Family Medicine 05/30/18 Flor Clark PharmD [address] [place] [address] Pharmacist Internal Medicine 08/18/23 documented as of this encounter
--- OUTSIDE RECORDS SUMMARY | 2024-08-16 13:14 | XMS_ITS | Encounter Summary ---
Author Organization [employer] Address [address] [facility] 7t [place] [address] Care Team Providers Care Gymnastic Coach Name Role Phone Macie Link DO Primary Care Provider Flor Clark PharmD Unavailable Reason for Visit * Reason Onset Date Comments Durable Medical Equipment 05/10/2022 Encounter Details Date Type Department Care Team (Late st Contact Info) Description 05/10/2022 Telephone [facility] MEDICINE [address] [place] [address] Macie Link DO [address] [place] [address] Durable Medical Equipment Social History Tobacco Use [...] 1:45 PM EST Tc from jesus from [facility] care requesting status on Glucerna . States pt has tried reaching L&C and no response . Also caller is requesting a adjustable position bed. Best contact # [phone] documented in this encounter Plan of Treatment Upcoming Encounters Date Type Department Care Team (Late st Contact Info) Description 08/30/2024 8:00 AM EDT Office Visit [facility] ADULT DENTAL [address] [place] [address] Justin Anne, SHAY [address] [place] [address] 09/04/2024 2:30 PM EDT Medication Management [facility] MEDICINE [address] [place] [address] Flor Clark, PharmD [address] [place] [address] 09/11/2024 9:45 AM EDT Office Visit [facility] MEDICINE [address] [place] [address] Macie Link DO [address] [place] [address] 09/13/2024 9:00 AM EDT Clinical Support [facility] MEDICINE [address] [place] [address] April Murrell, PADILLA 09/24/2024 3:00 PM EDT Office Visit [facility] ADULT DENTAL [address] [place] [address] Trina Arrieta documented as of this encounter Visit Diagnoses Not on filedocumented in this encounter Care Teams Gymnastic Coach Relationship Specialty Start Date End Date Macie Link DO [address] [place] [address] PCP - General Family Medicine 05/30/18 Flor Clark, Jaspreet [address] [place] [address] Pharmacist Internal Medicine 08/18/23 documented as of this encounter
--- OUTSIDE RECORDS SUMMARY | 2024-08-16 13:14 | XMS_ITS | Encounter Summary ---
Author Organization [facility] Address [address] [facility] 7t [place] [address] Care Team Providers Care Client Specialist Name Role Phone Macie Link DO Primary Care Provider Flor Clark PharmD Unavailable Reason for Visit * Reason Comments Med Refill Encounter Details Date Type Department Care Team ([facility] st Contact Info) Description 10/14/2022 Refill [facility] MEDICINE [address] [place] [address] Macie Link DO [address] [place] [address] Anxiety Social History Tobacco Use Types Packs/Day [...] Office Visit [facility] ADULT DENTAL 230 [place] [address] Justin Anne, DMD [address] [place] [address] 09/04/2024 2:30 PM EDT Medication Management [address] [address] Flor Clark PharmD [address] [place] [address] 09/11/2024 9:45 AM EDT Office Visit [address] [place] [address] Macie Link DO [address] [place] [address] 09/13/2024 9:00 AM EDT Clinical Support [address] [address] April Murrell, RN 09/24/2024 3:00 PM EDT Office Visit [facility] ADULT DENTAL [address] [place] [address] Trina Arrieta documented as of this encounter Visit Diagnoses Diagnosis Anxiety Anxiety state, unspecified documented in this encounter Additional Health Concerns Assessment Noted Time PHQ-9 Depression Total Score: 2 07/06/19 23 9:23 AM EST documented as of this encounter Care Teams Client Specialist Relationship Specialty Start Date End Date Macie Link DO [address] [place] [address] PCP - General Family Medicine 05/30/18 Flor Clark PharmD [address] [place] [address] Pharmacist Internal Medicine 08/18/23 documented as of this encounter
--- OUTSIDE RECORDS SUMMARY | 2024-08-16 13:14 | XMS_ITS | Encounter Summary ---
Author Organization [employer] Address [address] [facility] [address] 7t [place] [address] Care Team Providers Care Drafter Apprentice Name Role Phone Fariba Macie LICEA Primary Care Provider [phone] Flor Clark PharmD Unavailable [phone] Reason for Visit * Reason Onset Date Comments Medication Question 08/16/2024 Encounter Details Date Type Department Care Team (Late st Contact Info) Description 08/16/2024 Refill [facility] MEDICINE [address] [place] [address] Bhavani Rojas, PADILLA [address] [place] [address] Type 2 diabetes mellitus with chronic kidney disease on chronic dialysis, with long-term current use of insulin ([facility]) Social History Tobacco Use Types Packs/Day Years [...] encounter Miscellaneous Notes * Telephone Encounter - Bhavani Rojas RN - 08/16/2024 8:36 AM EDT TC received from pharmacy. They request One Touch Ultra meter, strips, and lancets due to pt.'s newinsurance ([employer]) documented in this encounter Plan of Treatment Upcoming Encounters Date Type Department Care Team (Late st Contact Info) Description 08/30/2024 8:00 AM EDT Office Visit [facility] ADULT DENTAL [address] [place] [address] Justin Anne, DMD [address] [place] [address] 09/04/2024 2:30 PM EDT Medication Management [facility] MEDICINE [address] [place] [address] Flor Clark, PharmD 230 [place], [place] 09/11/2024 9:45 AM EDT Office Visit [facility] MEDICINE [address] [place] [address] Macie Link DO [address] [place], [place] 09/13/2024 9:00 AM EDT Clinical Support [facility] MEDICINE [address] [place] [address] April Murrell RN 09/24/2024 3:00 PM EDT Office Visit [facility] ADULT DENTAL [address] [place] [address] Trina Arrieta documented as of this encounter [...] dialysis, with long-term current use of insulin ([facility]) documented in this encounter Additional Health Concerns Assessment Noted Time PHQ-9 Depression Total Score: 5 12/20/19 24 9:37 AM EDT documented as of this encounter Care Teams Drafter Apprentice Relationship Specialty Start Date End Date Macie Link DO [address] [place] [address] [phone] PCP - General Family Medicine 05/30/18 Flor Clark PharmD [address] [place] [phone] Pharmacist Internal Medicine 08/18/23 documented as of this encounter
--- OUTSIDE RECORDS SUMMARY | 2024-08-16 13:14 | XMS_ITS | Encounter Summary ---
Author Organization [facility], Address [address] [place] [address] Phone Care Team Providers Care Pilates Coordinator Name Role Phone Macie Link DO Primary Care Provider Unava ilable Encounter Details Date Type Department Care Team (Late st Contact Info) Description 07/19/2022 Documentation Only [facility], [address] [place] [address] [place], [place] [address] [place] [address] Social History Tobacco Use [...] on filedocumented in this encounter Care Teams Pilates Coordinator Relationship Specialty Start Date End Date Macie Link DO PCP - General 04/03/19 documented as of this encounter
--- OUTSIDE RECORDS SUMMARY | 2024-08-16 13:14 | XMS_ITS | Encounter Summary ---
Author Organization [employer] Address 75 [facility] 7t [place] [address] Care Team Providers Care Medical Registrar Name Role Phone Macie Link DO Primary Care Provider + [phone] Flor Clark PharmD Unavailable Reason for Referral * Medications - Closed Specialty Diagnoses / Procedures Referred By Contac t Referred To Contact Diagnoses Erectile dysfunction, unspecified erectile dysfunction type Cassie Jeronimo MD [address] [place] [address] Phone: tel: fax: Referral ID Status Reason Start Date Expiration Date Visits Re quested Visits Authorized [id number] Closed 07/20/2024 07/20/2025 1 1 Reason for Visit * Reason Comments Med Refill Encounter Details Date Type Department Care Team (Late st Contact Info) Description 07/18/2024 Refill [facility] MEDICINE [address] [place] [address] Macie Link DO [address] [place], [place] [phone] Anxiety; Chronic neck pain; Erectile dysfunction, unspecified [...] Description 08/30/2024 8:00 AM EDT Office Visit [facility] ADULT DENTAL [address] [place] [address] Justin Anne, DMD 230 [place] [address] 09/04/2024 2:30 PM EDT Medication Management [facility] [address] [place] [address] Flor Clark, PharmD 230 [place] [address] 09/11/2024 9:45 AM EDT Office Visit [facility] MEDICINE [address] [place] [address] [place] [address] Macie Link DO [address] [facility] [place] [address] 09/13/2024 9:00 AM EDT Clinical Support [facility] [address] [facility] [place], [place] [phone] April Murrell RN 09/24/2024 3:00 PM EDT Office Visit [facility] ADULT DENTAL 230 [place], [place] [phone] Trina Arrieta documented as of this encounter [...] documented as of this encounter Care Teams Medical Registrar Relationship Specialty Start Date End Date Macie Link DO [facility] [place], [place] [phone] PCP - General Family Medicine 05/30/18 Flor Clark, Jaspreet [place] [address] Pharmacist Internal Medicine 08/18/23 documented as of this encounter
--- OUTSIDE RECORDS SUMMARY | 2024-08-16 13:14 | XMS_ITS | Encounter Summary ---
Author Organization [employer] Address 75 [facility] 7t [place] [address] Care Team Providers Care Commercial Driver Name Role Phone Macie Link DO Primary Care Provider Flor Clark PharmD Unavailable [phone] Reason for Visit * Reason Onset Date Comments Appointment Request 07/26/2024 Encounter Details Date Type Department Care Team ([facility] st Contact Info) Description 07/26/2024 Telephone [facility] MEDICINE 230 [place] [address] Macie Link DO 230 [place] [address] Appointment Request Social History Tobacco Use Types [...] 08/30/2024 8:00 AM EDT Office Visit [facility] ADULT DENTAL [address] [place] [address] Justin Anne, SHAY [address] [place] [address] 09/04/2024 2:30 PM EDT Medication Management [facility] MEDICINE [address] [place] [address] Flor Clark, PharmD 230 [place], [place] 09/11/2024 9:45 AM EDT Office Visit [facility] MEDICINE [address] [place] [address] Macie Link DO 230 [place] [address] 09/13/2024 9:00 AM EDT Clinical Support [facility] MEDICINE [address] [place] [address] April Murrell RN 09/24/2024 3:00 PM EDT Office Visit [facility] ADULT DENTAL [address] [place], [place] [phone] Trina Arrieta documented as of this encounter [...] as of this encounter Care Teams Commercial Driver Relationship Specialty Start Date End Date Macie Link DO [place], [place] [phone] PCP - General Family Medicine 05/30/18 Flor Clark, DerikD [address] [place] [address] Pharmacist Internal Medicine 08/18/23 documented as of this encounter
--- OUTSIDE RECORDS SUMMARY | 2024-08-16 13:14 | XMS_ITS | Encounter Summary ---
Author Organization [facility], Address [address] [place] [address] Phone Care Team Providers Care Manager Research Name Role Phone Macie Link DO Primary Care Provider Unava ilable Encounter Details Date Type Department Care Team (Late st Contact Info) Description 03/16/2024 Documentation Only [facility], [address] [place] [address] Jimena Gibson [place] [address] [place] [address] Social History Tobacco Use Types [...] filedocumented in this encounter Care Teams Manager Research Relationship Specialty Start Date End Date Macie Link DO PCP - General 04/03/19 documented as of this encounter
--- OUTSIDE RECORDS SUMMARY | 2024-08-16 13:15 | XMS_ITS | Encounter Summary ---
Author Organization [employer] [facility] Address 75 [facility] 7t [place] [address] Care Team Providers Care Head Miller Name Role Phone Macie Link DO Primary Care Provider Flor Clark PharmD Unavailable Reason for Visit * Reason Comments Med Refill Encounter Details Date Type Department Care Team (Late st Contact Info) Description 01/13/2023 Refill [facility] MEDICINE [address] [place] [address] Macie Link DO 230 [place] [address] Chronic neck pain Social History Tobacco Use [...] Description 08/30/2024 8:00 AM EDT Office Visit [facility] ADULT DENTAL [address] [place] [address] Justin Anne DMD [address] [place] [address] 09/04/2024 2:30 PM EDT Medication Management [address] [place] [address] Flor Clark PharmD [address] [facility] [place] [address] 09/11/2024 9:45 AM EDT Office Visit [address] [address] Macie Link DO 230 [facility] [place] [address] 09/13/2024 9:00 AM EDT Clinical Support [address] [address] April Murrell, RN 09/24/2024 3:00 PM EDT Office Visit [facility] ADULT DENTAL [address] [place] [address] Trina Arrieta documented as of this encounter Visit Diagnoses Diagnosis Chronic neck pain Cervicalgia documented in this encounter Additional Health Concerns Assessment Noted Time PHQ-9 Depression Total Score: 2 07/06/19 23 9:23 AM EST documented as of this encounter Care Teams Head Miller Relationship Specialty Start Date End [place] [address] PCP - General Family Medicine 05/30/18 [place] [address] Pharmacist Internal Medicine 08/18/23 documented as of this encounter
--- OUTSIDE RECORDS SUMMARY | 2024-08-16 13:15 | XMS_ITS | Encounter Summary ---
Author Organization [employer] [facility] Address 75 [facility] 7t [place] [address] Care Team Providers Care Business Banking Relationship Manager Name Role Phone Macie Link DO Primary Care Provider [phone] Flor Clark PharmD Unavailable Reason for Visit * Reason Comments Med Refill Encounter Details Date Type Department Care Team (Late st Contact Info) Description 12/31/2022 Refill [facility] MEDICINE 230 [place] [address] Macie Link DO 230 [place] [address] Anxiety Social History Tobacco Use Types Packs/Day [...] Description 08/30/2024 8:00 AM EDT Office Visit [facility] ADULT DENTAL 230 [place] [address] Justin Anne DMD 230 [place] [address] 09/04/2024 2:30 PM EDT Medication Management [facility] [address] [facility] [place] [address] Flor Clark PharmD 230 [facility] [place] [address] 09/11/2024 9:45 AM EDT Office [address] [address] Macie Link DO 230 [facility] [place] [address] 09/13/2024 9:00 AM EDT Clinical Support [address] [address] April Murrell, PADILLA 09/24/2024 3:00 PM EDT Office Visit [facility] ADULT DENTAL [address] [place], [place] [address]kathy [place] [address] Trina Arrieta documented as of this encounter Visit Diagnoses Diagnosis Anxiety Anxiety state, unspecified documented in this encounter Additional Health Concerns Assessment Noted Time PHQ-9 Depression Total Score: 2 07/06/19 23 9:23 AM EST documented as of this encounter Care Teams Business Banking Relationship Manager Relationship Specialty Start Date End Date Macie Link DO [facility] [place] [address] PCP - General Family Medicine 05/30/18 Flor Clark PharmD [facility] [place] [address] Pharmacist Internal Medicine 08/18/23 documented as of this encounter
--- OUTSIDE RECORDS SUMMARY | 2024-08-16 13:15 | XMS_ITS | Encounter Summary ---
Author Organization [employer] Address [address] [facility] [address] 7t [place] [address] Care Team Providers Care Golf Club Head Inspector And Adjuster Name Role Phone Macie Link DO Primary Care Provider [phone] Flor Clark PharmD Unavailable [phone] Reason for Visit * Reason Comments Med Refill Encounter Details Date Type Department Care Team ([facility] st Contact Info) Description 03/08/2023 Refill [facility] MEDICINE 230 [place] [address] Macie Link DO 230 [place] [address] Anxiety; Chronic neck pain Social History Tobacco [...] Description 08/30/2024 8:00 AM EDT Office Visit [facility] ADULT DENTAL [address] [place] [address] Justin Anne, SHAY 230 [place] [address] 09/04/2024 2:30 PM EDT Medication Management [facility] MED[facility] [address] [place] [address] Flor Clark, DerikD [address] [place] [address] 09/11/2024 9:45 AM EDT Office Visit [address] [address] Macie Link DO [address] [place] [address] 09/13/2024 9:00 AM EDT Clinical Support [address] [address] April Murrell RN 09/24/2024 3:00 PM EDT Office Visit [facility] ADULT DENTAL [address] [place] [address] Trina Arrieta documented as of this encounter Visit Diagnoses Diagnosis Anxiety Anxiety state, unspecified Chronic neck pain Cervicalgia documented in this encounter Additional Health Concerns Assessment Noted Time PHQ-9 Depression Total Score: 2 02/07/20 23 9:23 AM EST documented as of this encounter Care Teams Golf Club Head Inspector And Adjuster Relationship Specialty Start Date End Date Macie Link DO 230 [place] [address] PCP - General Family Medicine 05/30/18 Flor Clark PharmD 230 [place] [address] Pharmacist Internal Medicine 08/18/23 documented as of this encounter
--- OUTSIDE RECORDS SUMMARY | 2024-08-16 13:15 | XMS_ITS | Encounter Summary ---
Author Organization [employer] Address [address] [facility] [address] 7t [place] [address] Care Team Providers Care Aircraft Seat Upholsterer Name Role Phone Macie Link DO Primary Care Provider [phone] Flor Clark PharmD Unavailable [phone] Reason for Visit * Reason Onset Date Comments Prior Authorization 08/17/2023 Encounter Details Date Type Department Care Team ([facility] st Contact Info) Description 08/17/2023 Telephone [facility] MEDICINE 230 [place] [address] Macie Lnik DO 230 [place] [address] Prior Authorization Social History Tobacco Use Types [...] 2.5-2.5 % cream To be sent to: [facility] - [place], [place] - 230 [facility] documented in this encounter Plan of Treatment Upcoming Encounters Date Type Department Care Team (Late st Contact Info) Description 08/30/2024 8:00 AM EDT Office Visit [facility] ADULT DENTAL 230 [place] [address] Justin Anne, DMD 230 [place] [address] 09/04/2024 2:30 PM EDT Medication Management [facility] MEDICINE 230 [place] [address] Flor Clark PharmD 230 [place] [address] 09/11/2024 9:45 AM EDT Office Visit [facility] MEDICINE 230 [facility] [place] [address] Macie Link DO 230 [place] [address] 09/13/2024 9:00 AM EDT Clinical Support [facility] MEDICINE 230 [place] [address] April Murrell RN 09/24/2024 3:00 PM EDT Office Visit [facility] ADULT DENTAL 230 [place] [address] Trina Arrieta documented as of this encounter [...] documented as of this encounter Care Teams Aircraft Seat Upholsterer Relationship Specialty Start Date End Date Macie Link DO 230 [place], [place] [phone] PCP - General Family Medicine 05/30/18 Flor Clark, DerikD [address] [place] [address] Pharmacist Internal Medicine 08/18/23 documented as of this encounter
--- OUTSIDE RECORDS SUMMARY | 2024-08-16 13:15 | XMS_ITS | Encounter Summary ---
Author Organization [employer] Address 75 [facility] 7t [place] [address] Care Team Providers Care Explosive Operator Bomb Name Role Phone Macie Link DO Primary Care Provider [phone] Flor Clark PharmD Unavailable [phone] Reason for Visit * Reason Comments Med Refill Encounter Details Date Type Department Care Team ([facility] st Contact Info) Description 08/22/2023 Refill [facility] MEDICINE 230 [place] [address] Macie Link DO 230 [place], [place] [phone] Chronic neck pain; Anxiety Social History Tobacco [...] Description 08/30/2024 8:00 AM EDT Office Visit [facility] ADULT DENTAL [address] [place] [address] Justin Anne, DMD [address] [place] [address] 09/04/2024 2:30 PM EDT Medication Management [address] [address] Flor Clark, DerikD [address] [place] [address] 09/11/2024 9:45 AM EDT Office Visit [address] [address] Macie Link, [address] [place] [address] 09/13/2024 9:00 AM EDT Clinical Support [address] [address] April Murrell, PADILLA 09/24/2024 3:00 PM EDT Office Visit [facility] ADULT DENTAL [address] [place] [address] Trina Arrieta documented as of this encounter [...] documented as of this encounter Care Teams Explosive Operator Bomb Relationship Specialty Start Date End Date Macie Link DO 230 [place] [address] PCP - General Family Medicine 05/30/18 Flor Clark PharmD 230 [place] [address] Pharmacist Internal Medicine 08/18/23 documented as of this encounter
--- OUTSIDE RECORDS SUMMARY | 2024-08-16 13:15 | XMS_ITS | Encounter Summary ---
Author Organization [facility] Address 75 [facility] 7t [place] [address] Care Team Providers Care Bulldozer Engineer Name Role Phone Macie Link DO Primary Care Provider Flor Clark PharmD Unavailable Reason for Visit * Reason Comments Med Refill Encounter Details Date Type Department Care Team (Late st Contact Info) Description 01/13/2023 Refill [facility] MEDICINE 230 [place] [address] Macie Link DO 230 [place] [address] Chronic neck pain Social History Tobacco Use [...] Description 08/30/2024 8:00 AM EDT Office Visit [facility] ADULT DENTAL 230 [place] [address] Justin Anne DMD 230 [place] [address] 09/04/2024 2:30 PM EDT Medication Management [address] [place] [address] Flor Clark PharmD 230 [facility] [place] [address] 09/11/2024 9:45 AM EDT Office Visit [address] [address] Macie Link DO 230 [facility] [place] [address] 09/13/2024 9:00 AM EDT Clinical Support [address] [address] April Murrell, RN 09/24/2024 3:00 PM EDT Office Visit [facility] ADULT DENTAL [address] [place] [address] Trina Arrieta documented as of this encounter Visit Diagnoses Diagnosis Chronic neck pain Cervicalgia documented in this encounter Additional Health Concerns Assessment Noted Time PHQ-9 Depression Total Score: 2 07/06/19 23 9:23 AM EST documented as of this encounter Care Teams Bulldozer Engineer Relationship Specialty Start Date End [place] [address] PCP - General Family Medicine 05/30/18 [place] [address] Pharmacist Internal Medicine 08/18/23 documented as of this encounter
--- OUTSIDE RECORDS SUMMARY | 2024-08-16 13:15 | XMS_ITS | Encounter Summary ---
Author Organization [employer] Address 75 [facility] 7t [place] [address] Care Team Providers Care Actuarial Intern Name Role Phone Macie Link DO Primary Care Provider [phone] Flor Clark PharmD Unavailable [phone] Reason for Visit * Reason Comments Med Refill Encounter Details Date Type Department Care Team ([facility] st Contact Info) Description 06/03/2023 Refill [facility] MEDICINE 230 [place] [address] Macie Link DO 230 [place] [address] Anxiety Social History Tobacco Use Types Packs/Day [...] 8:00 AM EDT Office Visit [facility] ADULT DENTAL [address] [place] [address] Justin Anne, DMD 230 [place] [address] 09/04/2024 2:30 PM EDT Medication Management [facility] MEDICINE [address] [place] [address] Flor Clark, PharmD [address] [place] [address] 09/11/2024 9:45 AM EDT Office Visit [address] [address] Macie Link, 230 [place] [address] 09/13/2024 9:00 AM EDT Clinical Support [address] [address] April Murrell, PADILLA 09/24/2024 3:00 PM EDT Office Visit [facility] ADULT DENTAL [address] [place] [address] Trina Arrieta documented as of this encounter Visit Diagnoses Diagnosis Anxiety Anxiety state, unspecified documented in this encounter Additional Health Concerns Assessment Noted Time PHQ-9 Depression Total Score: 13 024 9:15 AM EST documented as of this encounter Care Teams Actuarial Intern Relationship Specialty Start Date End Date Macie Link DO 230 [place] [address] PCP - General Family Medicine 05/30/18 Flor Clark PharmD 230 [place] [address] Pharmacist Internal Medicine 08/18/23 documented as of this encounter
--- OUTSIDE RECORDS SUMMARY | 2024-08-16 13:15 | XMS_ITS | Encounter Summary ---
Author Organization [employer] Address [address] [facility] [address] 7t [place] [address] Care Team Providers Care Investigative Agent Name Role Phone Macie Link DO Primary Care Provider [phone] Flor Clrak PharmD Unavailable [phone] Encounter Details Date Type Department Care Team ([facility] st Contact Info) Description 06/14/2023 Telephone [facility] MEDICINE 230 [place], [place] [phone] Macie Link DO 230 [place] [address] Social History Tobacco Use Types Packs/Day Years [...] Description 08/30/2024 8:00 AM EDT Office Visit [facility] ADULT DENTAL [address] [place] [address] Justin Anne, SHAY [address] [place] [address] 09/04/2024 2:30 PM EDT Medication Management [facility] MEDICINE [address] [place] [address] Flor Clark, DerikD [address] [place] [address] 09/11/2024 9:45 AM EDT Office Visit [address] [address] Macie Link DO [address] [place] [address] 09/13/2024 9:00 AM EDT Clinical Support [address] [address] April Murrell, RN 09/24/2024 3:00 PM EDT Office Visit [facility] ADULT DENTAL [address] [place] [address] Trina Arrieta documented as of this encounter Visit Diagnoses Not on filedocumented in this encounter Additional Health Concerns Assessment Noted Time PHQ-9 Depression Total Score: 13 024 9:15 AM EST documented as of this encounter Care Teams Investigative Agent Relationship Specialty Start Date End Date Macie Link DO 230 [place] [address] PCP - General Family Medicine 05/30/18 Flor Clark PharmD 230 [place] [address] Pharmacist Internal Medicine 08/18/23 documented as of this encounter
--- OUTSIDE RECORDS SUMMARY | 2024-08-16 13:15 | XMS_ITS | Encounter Summary ---
Author Organization [employer] Address 75 [facility] 7t [place] [address] Care Team Providers Care Utility Assembler Name Role Phone ArcadioMacie smith Primary Care Provider [phone] Flor Clark PharmD Unavailable [phone] Reason for Visit * Reason Comments Med Refill Encounter Details Date Type Department Care Team (Late st Contact Info) Description 07/26/2023 Refill [facility] MEDICINE 230 [place] [address] Catherine Madera MD 230 [place] [address] Anxiety; Chronic neck pain Social History Tobacco [...] Description 08/30/2024 8:00 AM EDT Office Visit [facility] ADULT DENTAL [address] [place] [address] Justin Anne, DMD [address] [place] [address] 09/04/2024 2:30 PM EDT Medication Management [facility] MEDICINE [address] [place] [address] Flor Clark, DerikD [address] [place] [address] 09/11/2024 9:45 AM EDT Office Visit [address] [address] Macie Link, [address] [place] [address] 09/13/2024 9:00 AM EDT Clinical Support [address] [address] April Murrell, PADILLA 09/24/2024 3:00 PM EDT Office Visit [facility] ADULT DENTAL [address] [place] [address] Trina Arrieta documented as of this encounter Visit Diagnoses Diagnosis Anxiety Anxiety state, unspecified Chronic neck pain Cervicalgia documented in this encounter Additional Health Concerns Assessment Noted Time PHQ-9 Depression Total Score: 13 05/31/ 024 9:15 AM EST documented as of this encounter Care Teams Utility Assembler Relationship Specialty Start Date End Date Macie Link DO 230 [place] [address] PCP - General Family Medicine 05/30/18 Flor Clark PharmD [address] [place] [address] Pharmacist Internal Medicine 08/18/23 documented as of this encounter
--- OUTSIDE RECORDS SUMMARY | 2024-08-16 13:15 | XMS_ITS | Referral Summary ---
Author Organization [facility] Address [address] [place] [address] Care Team Providers Care Logistics Officer Name Role Phone Patient, Has No Pcp Or Ref Primary Care Provider Unavailable Encounters Date Type Department Care Team Description 07/06/2024 12:35 PM EST - 07/06/2024 11:59 PM EST Hospital Encounter [facility] CT Scan [address] [place] [address] Hillary Webber MD Renal cell carcinoma of right kidney Discharge Disposition: Home or Self Care () 07/05/2024 Patient Outreach [facility] Floor [address] [place] [address] Rea Parks, RN 07/05/2024 Orders Only [facility] 5th Floor [address] [place] [address] Rea Parks, hand cutter cell carcinoma of right kidney (Primary Dx); Neuroendocrine carcinoma of stomach 07/04/2024 Patient Outreach [facility] 5th Floor [address] [place] [address] Rea Parks, RN 06/28/2024 Orders Only [facility] Nuclear Medicine [address] [place] [address] Kandice Pacheco MD 06/27/2024 Orders Only [facility] Interventional Radiology [address] [place] [address] Amanda Sweet MD 06/21/2024 2:00 PM EST Office Visit [facility] 5th Floor [address] [place] [address] Hillary Webber MD Renal cell carcinoma of right kidney (Primary Dx); Neuroendocrine carcinoma of stomach 06/12/2024 Telephone [facility] Transplant Department [address] [place] [address] Lynda Diaz RN from Last 3 Months [...] 0.5 mL IM 12/29/2022,11/03/2022,10/04/2022,2022 Pneumococcal conjugate PCV20,polysaccharide THH317 conjugate, adjuvant, PF (Prevnar 20) 06/22/2023 Social [...] Info) Description 03/19/2025 9:00 AM EDT Follow-Up [facility] Renal Transplant [address] [place] [address] Louie Pablo MD [address] [place] [address] 03/19/2025 9:30 AM EDT Social Work [facility] Renal Transplant [address] [place] [address] Imani Livingston LICSW [address] [place] [address] Procedures * Due to [place] state law, this organization might not be sharing negative HIV tests. 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 HEPATITIS C ANTIBODY W/REFLEX TO HCV RNA, QUANTITATIVE PCR Routine 03/15/2024 12:39 PM EDT ESRD (end stage renal disease) Pre-transplant evaluation for end stage renal disease HEMOGLOBIN A1C Routine 03/15/2024 12:39 PM EDT ESRD (end stage renal disease) Pre-transplant evaluation for end stage renal disease CBC AUTO DIFFERENTIAL Routine 03/15/2024 12:39 PM EDT ESRD (end stage renal disease) Pre-transplant evaluation for end stage renal disease PHOSPHORUS Routine 03/15/2024 12:39 PM EDT ESRD (end stage renal disease) Pre-transplant evaluation for end stage renal disease from Last 3 Months or Most Recently Relevant to Health Maintenance Results * Due to [place] state law, this organization might not be sharing negative HIV tests. * PET/CT Skull Base to Mid Thigh [id number] (08/02/2024 7:40 PM EST) Anatomical Region Laterality Modality Entire body Magnetic Resonan ce 08/02/2024 6:50 PM EST Narrative 08/03/2024 12:07 PM EST [facility] PET/CT Imaging Accession Number: [id number] Patient Name: Joshua Barnard Date of : 1960 Date of Exam: 08-02-2024 Referring Physician: Hillary Webber ?[facility] ?[address] [place] [address] ?[place] [address] Exam: PT Skull Base to Mid Thigh [id number] CPT 88187 Room Description: [facility] Pt4 Ga-68 Dotatate PET-CT History: History [...] By: Annalee Mcmillan MD Procedure Note Provider, [place] - 08/03/2024 [facility] PET/CT Imaging Accession Number: [id number] Patient Name: Joshua Barnard Date of : 1960 Date of Exam: 08-02-2024 Referring Physician: Hillary Webber [address] [address] Exam: PT Skull Base to Mid Thigh [id number] CPT 02189 Room Description: [facility] Pt4 Ga-68 Dotatate PET-CT History: History [...] Annalee Mcmillan MD us Hillary Webber MD IMG MRI PROCEDURES Final Result * CT Abdomen [...] extensive review of this patient's notes in [facility]. Without this review, the possibility of an erroneous interpretation of this exam could have occurred. If this radiology report contains a blank impression section, it is an incomplete radiology report. ??Please contact the interpreting radiologist or applicable radiology division as soon as possible to obtain the completed interpretation. ? Workstation ID: [id number] Narrative 07/09/2024 2:20 PM EST Indication: Renal [...] likely a bone island. Resulting Agency Comment [id number] Procedure Note Eusebio Poole MD - 07/09/2024 [...] possible to obtain thecompleted interpretation. Workstation ID: [id number] us Hillary Webber MD IMG CT PROCEDURES Final Result * CT Chest [...] obtain the completed interpretation. ? Workstation ID: [id number] Up-to-date CT equipment and radiation dose reduction techniques were employed. CTDIvol: 14.8 - 18.2 mGy. DLP: 1501 mGy-cm. ??The following accession numbers are related to this dose report [id number]: [id number] Narrative 07/10/2024 9:46 AM EST Indication: ??Renal [...] 2021, likely benign. ?? Resulting Agency Comment [id number] Procedure Note Raquel Krause MD - 07/10/2024 [...] possible to obtain thecompleted interpretation. Workstation ID: [id number] Up-to-date CT equipment and radiation dose reduction techniques wereemployed. CTDIvol: 14.8 - 18.2 mGy. DLP: 1501 mGy-cm. The followingaccession numbers are related to this dose report [id number]: [id number] Hillary Webber MD [facility] CT PROCEDURES Final Result * (ABNORMAL) Basic Metabolic Panel (07/06/2024 11:59 AM EST) NA 138 135 - 145 mmol/L 07/06/2024 12:39 PM EST [facility] K 4.4 3.5 - 5.3 mmol/L 07/06/2024 12:39 PM EST [facility] Cl 96(L) 98 - 107 mmol/L 07/06/2024 12:39 PM EST [facility] CO2 30 22 - 32 mmol/L 07/06/2024 12:39 PM EST [facility] BUN 19 7 - 23 mg/dL 07/06/2024 12:39 PM EST [facility] Creatinine 5.41(H) 0.60 - 1.30 mg/dL 07/06/2024 12:39 PM EST [facility] Glucose 147(H) 65 - 99 mg/dL 07/06/2024 12:39 PM EST [facility] Calcium 9.7 8.6 - 10.5 mg/dL 07/06/2024 12:39 PM EST [facility] Anion Gap 12 5 - 15 07/06/2024 12:39 PM EST [facility] eGFR 11(L) >=60 mL/min/1 .73m2 07/06/2024 12:39 PM EST [facility] Comment:The estimated glomer ular [...] MD LAB BLOOD ORDERABLES Final Resu lt [facility] [address] [place] [address], [place] * (ABNORMAL) CBC Auto Differential (03/15/2024 12:39 PM EDT) WBC 6.2 3.8 - 10.8 10*3/uL 03/15/2024 1:11 PM EDT [facility] RBC 3.90(L) 4.20 - 5.80 10*6/uL 03/15/2024 1:11 PM EDT [facility] Hemoglobin 11.9(L) 13.2 - 17.1 g/dL 03/15/2024 1:11 PM EDT [facility] Hematocrit 36.8(L) 38.5 - 50.0 % 03/15/2024 1:11 PM EDT [facility] MCV 94.4 80.0 - 100.0 fL 03/15/2024 1:11 PM EDT [facility] MCH 30.5 27.0 - 33.0 pg 03/15/2024 1:11 PM EDT [facility] MCHC 32.3 32.0 - 36.0 g/dL 03/15/2024 1:11 PM EDT [facility] RDW 14.2 11.0 - 15.0 % 03/15/2024 1:11 PM EDT [facility] Platelets 175 140 - 400 10*3/uL 03/15/2024 1:11 PM EDT [facility] MPV 11.3 7.5 - 12.5 fL 03/15/2024 1:11 PM EDT [facility] Neutrophil % 59.1 % 03/15/2024 1:11 PM EDT [facility] Immature Grans % 0.2 0.0 - 0.9 % 03/15/2024 1:11 PM EDT [facility] Lymphocyte % 28.1 % 03/15/2024 1:11 PM EDT [facility] Monocyte % 9.9 % 03/15/2024 1:11 PM EDT [facility] Eosinophil % 2.4 % 03/15/2024 1:11 PM EDT [facility] Basophil % 0.3 % 03/15/2024 1:11 PM EDT [facility] Neutrophil # 3.63 1.50 - 7.80 10*3/uL 03/15/2024 1:11 PM EDT [facility] Immature Grans # <0.03 <=0.03 10*3/uL 03/15/2024 1:11 PM EDT [facility] Lymphocyte # 1.70 0.85 - 3.90 10*3/uL 03/15/2024 1:11 PM EDT [facility] Monocyte # 0.60 0.20 - 0.95 10*3/uL 03/15/2024 1:11 PM EDT [facility] Eosinophil # 0.20 0.02 - 0.50 10*3/uL 03/15/2024 1:11 PM EDT [facility] Basophil # <0.03 0.00 - 0.20 10*3/uL 03/15/2024 1:11 PM EDT [facility] nRBC % 0.0 /100 WBCs 03/15/2024 1:11 PM EDT [facility] nRBC # <0.01 <0.01 10*3/uL 03/15/2024 1:11 PM EDT [facility] Blood Structure of peripheral vein / Unknown Venipuncture / Unknown 03/15/2024 12:39 PM EDT 03/15/2024 12:59 PM EDT us Tobias Vogt MD LAB BLOOD ORDERABLES Final Result Performing Organization Address City/[facility]/ZIP Co de Phone Number [facility] [address] [place] [address], [place] * Hepatitis C Antibody w/Reflex to PCR (03/15/2024 12:39 PM EDT) Hepatitis C Antibody NON-REACT ALBINO NON-REACT ALBINO 03/16/2024 3:27 AM EDT [facility] Comment: HCV antibody was non-reactive. There is no laboratory evidence of HCV infection. In most cases, no further action is required. However, if recent HCV exposure is suspected, a test for HCV RNA (test code 31914) is suggested. For additional information please refer to http://education.[employer]faq/NRJ78i0 (This link is being provided for informational/ educational purposes only.) Blood Structure of peripheral vein / Unknown Venipuncture / Unknown 03/15/2024 12:39 PM EDT 03/15/2024 12:58 PM EDT Narrative [facility] - 03/16/2024 3:27 AM EDT [facility] Received Date: us Tobias Vogt MD LAB BLOOD ORDERABLES Final Result Performing Organization Address City/[facility]/ZIP Co de Phone Number ELIUD DOMÍNGUEZ [address] [facility] [address]rd [address], [place] [address], [place] [phone] [facility] [address] [facility] 3rd Floor, [place] [address], [place] [phone] * Phosphorus (03/15/2024 12:39 PM EDT) Phosphorus 3.4 2.5 - 4.5 mg/dL 03/15/2024 1:45 PM EDT [facility] Blood Structure of peripheral vein / Unknown Venipuncture / Unknown 03/15/2024 12:39 PM EDT 03/15/2024 12:58 PM EDT Tobias Vogt MD LAB BLOOD ORDERABLES Final Result Performing Organization Address City/[facility]/ZIP Co de Phone Number [facility] [address] [place] [address], [place] * (ABNORMAL) Hemoglobin A1c (03/15/2024 12:39 PM EDT) Hemoglobin A1C 6.3(H) <5.7 % of total Hgb 03/16/2024 2:05 AM EDT [facility] Comment: For someone without known diabetes, a [...] (MG/DL) 134 mg/dL 03/16/2024 2:05 AM EDT [facility] eAG (MMOL/L) 7.4 mmol/L 03/16/2024 2:05 AM EDT [facility] Blood Structure of peripheral vein / Unknown Venipuncture / Unknown 03/15/2024 12:39 PM EDT 03/15/2024 12:59 PM EDT Narrative [facility] - 03/16/2024 2:05 AM EDT [facility] Received Date:[id number] us Tobias Vogt MD LAB BLOOD ORDERABLES Final Result [facility] [address] [facility] [address], [place] [address], [facility] [address] [facility] 3rd Floor, [place] [address], [place] [phone] from Last 3 Months or Most Recently Relevant to Health Maintenance Insurance [address] [place] [address] [facility] [address] [place] [address] [facility] Advance Directives Documents on File Type Date Recorded Patient Test Tube Maker [email or web address] Care Proxy 03/20/2024 5:28 PM 02-27 Care Teams Logistics Officer Relationship Specialty Start Date End Date Patient, Has No Pcp Or Ref DO NOT EDIT THIS RECORD VIA PROVIDER ON THE FLY PCP - General Plate Finisher 03/15/24
--- OUTSIDE RECORDS SUMMARY | 2024-08-16 13:15 | XMS_ITS | Encounter Summary ---
Author Organization [facility] Address [address] [facility] 7t [place] [address] Care Team Providers Care Lopper Name Role Phone Macie Link DO Primary Care Provider [phone] Flor Clark PharmD Unavailable [phone] Reason for Visit * Reason Comments Med Refill Encounter Details Date Type Department Care Team (Late st Contact Info) Description 06/01/2023 Refill [facility] MEDICINE [address] [place] [address] Macie Link DO [address] [place], [place] [phone] Anxiety; Chronic neck pain Social History Tobacco [...] Description 08/30/2024 8:00 AM EDT Office Visit [facility] ADULT DENTAL [address] [place] [address] Justin Anne, DMD [address] [place] [address] 09/04/2024 2:30 PM EDT Medication Management [facility] MEDICINE [address] [place] [address] Flor Clark, DerikD [address] [place] [address] 09/11/2024 9:45 AM EDT Office Visit [address] [address] Macie Link, [address] [place] [address] 09/13/2024 9:00 AM EDT Clinical Support [address] [address] April Murrell, PADILLA 09/24/2024 3:00 PM EDT Office Visit [facility] ADULT DENTAL [address] [place] [address] Trina Arrieta documented as of this encounter Visit Diagnoses Diagnosis Anxiety Anxiety state, unspecified Chronic neck pain Cervicalgia documented in this encounter Additional Health Concerns Assessment Noted Time PHQ-9 Depression Total Score: 13 05/31/ 024 9:15 AM EST documented as of this encounter Care Teams Lopper Relationship Specialty Start Date End Date Macie Link DO [address] [place] [address] PCP - General Family Medicine 05/30/18 Flor Clark PharmD [address] [place] [address] Pharmacist Internal Medicine 08/18/23 documented as of this encounter
--- OUTSIDE RECORDS SUMMARY | 2024-08-16 13:15 | XMS_ITS | Encounter Summary ---
Author Organization [facility], Address [address] [place] [address] Phone Care Team Providers Care Automatic Lehr Operator Name Role Phone Macie Link DO Primary Care Provider Unava ilable Encounter Details Date Type Department Care Team (Late st Contact Info) Description 10/19/2023 Documentation Only [facility], [address] [place] [address] Jimena Gibson [place] [address] [place] [address] Social History Tobacco Use Types [...] on filedocumented in this encounter Care Teams Automatic Lehr Operator Relationship Specialty Start Date End Date Macie Link DO PCP - General 04/03/19 documented as of this encounter
--- OUTSIDE RECORDS SUMMARY | 2024-08-16 13:15 | XMS_ITS | Encounter Summary ---
Author Organization [facility] Address [address] [facility] [address] 7t [place] [address] Care Team Providers Care Early Childhood Teacher Assistant Name Role Phone Macie Link DO Primary Care Provider [phone] Flor Clark PharmD Unavailable [phone] Reason for Visit * Reason Comments Med Refill Encounter Details Date Type Department Care Team ([facility] st Contact Info) Description 03/14/2023 Refill [facility] MEDICINE [address] [place] [address] Macie Link DO [address] [place] [address] Anxiety; Chronic neck pain Social History Tobacco [...] Description 08/30/2024 8:00 AM EDT Office Visit [facility] ADULT DENTAL [address] [place] [address] Justin Anne, SHAY [address] [place] [address] 09/04/2024 2:30 PM EDT Medication Management [facility] MEDICINE [address] [place] [address] Flor Clark, DerikD [address] [place] [address] 09/11/2024 9:45 AM EDT Office Visit [address] [address] Macie Link DO [address] [place] [address] 09/13/2024 9:00 AM EDT Clinical Support [address] [address] April Murrell RN 09/24/2024 3:00 PM EDT Office Visit [facility] ADULT DENTAL [address] [place] [address] Trina Arrieta documented as of this encounter Visit Diagnoses Diagnosis Anxiety Anxiety state, unspecified Chronic neck pain Cervicalgia documented in this encounter Additional Health Concerns Assessment Noted Time PHQ-9 Depression Total Score: 2 02/07/20 23 9:23 AM EST documented as of this encounter Care Teams Early Childhood Teacher Assistant Relationship Specialty Start Date End Date Macie Link DO [address] [place] [address] PCP - General Family Medicine 05/30/18 Flor Clark PharmD [address] [place] [address] Pharmacist Internal Medicine 08/18/23 documented as of this encounter
--- OUTSIDE RECORDS SUMMARY | 2024-08-16 13:15 | XMS_ITS | Encounter Summary ---
Author Organization [facility] Address [address] [facility] 7t [place] [address] Care Team Providers Care Superintendent Pier Name Role Phone Macie Link DO Primary Care Provider [phone] Flor Clark PharmD Unavailable [phone] Reason for Visit * Reason Comments Med Refill Encounter Details Date Type Department Care Team (Late st Contact Info) Description 12/12/2023 Refill [facility] MEDICINE [address] [place] [address] Macie Link DO [address] [place] [address] Anxiety; Chronic neck pain Social History Tobacco [...] 8:00 AM EDT Office Visit [facility] ADULT DENTAL [address] [place] [address] Justin Anne, DMD [address] [place] [address] 09/04/2024 2:30 PM EDT Medication Management [address] [address] Flor Clark, DerikD [address] [place] [address] 09/11/2024 9:45 AM EDT Office Visit [address] [address] Macie Link, [address] [place] [address] 09/13/2024 9:00 AM EDT Clinical Support [address] [address] April Murrell, PADILLA 09/24/2024 3:00 PM EDT Office Visit [facility] ADULT DENTAL [address] [place] [address] Trina Arrieta documented as of this encounter [...] documented as of this encounter Care Teams Superintendent Pier Relationship Specialty Start Date End Date Macie Link DO [address] [place] [address] PCP - General Family Medicine 05/30/18 Flor Clark PharmD [address] [place] [address] Pharmacist Internal Medicine 08/18/23 documented as of this encounter
--- OUTSIDE RECORDS SUMMARY | 2024-08-16 13:15 | XMS_ITS | Encounter Summary ---
Author Organization [facility], Address [address] [place] [address] Phone Care Team Providers Care Mosaic Technician Name Role Phone Macie Link DO Primary Care Provider Unava ilable Encounter Details Date Type Department Care Team (Late st Contact Info) Description 12/09/2021 Documentation Only [facility], [address] [place] [address] Romario Ford MD [address] [place] [id number] Social History Tobacco Use Types Packs/Day Years [...] on filedocumented in this encounter Care Teams Mosaic Technician Relationship Specialty Start Date End Date Macie Link DO PCP - General 04/03/19 documented as of this encounter
--- OUTSIDE RECORDS SUMMARY | 2024-08-16 13:15 | XMS_ITS | Clinical Summary ---
Author Organization [facility] Address [address] [place] [address] Care Team Providers Care Credit Control Manager Name Role Phone Patient, Has No [...] - 07/06/2024 11:59 PM EST Hospital Encounter [facility] CT Scan [address] [place] [address] Hillary Webber MD Renal cell carcinoma of right kidney Discharge Disposition: Home or Self Care (01) 07/05/2024 Patient Outreach [facility] [address]th [address] [place] [address] Rea Parks, PADILLA 07/05/2024 Orders Only [facility] Floor [address] [place] [address] Rea Parks, jumpbasting lining baster cell carcinoma of right kidney (Primary Dx); Neuroendocrine carcinoma of stomach 07/04/2024 Patient Outreach [facility] Floor [address] [place] [address] Rea Parks, PADILLA 06/28/2024 Orders Only [facility] Nuclear Medicine [address] [place] [address] Kandice Pacheco MD 06/27/2024 Orders Only [facility] Interventional Radiology [address] [place] [address] Amanda Sweet MD 06/21/2024 2:00 PM EST Office Visit [facility] [address] [place] [address] Hillary Webber MD Renal cell carcinoma of right kidney (Primary Dx); Neuroendocrine carcinoma of stomach 06/12/2024 Telephone [facility] Transplant Department [address] [place] [address] Lynda Diaz RN from Last 3 Months Immunizations Immunization Administration Dates Next Due COVID-19, Moderna, mRNA, LNP -S, Bivalent Booster, PF 03/12/2022 Hepatitis B vaccine (HEPLISA V-B) vaccine 0.5 mL IM 12/29/2022,11/03/2022,10/04/2022,2022 Pneumococcal conjugate PCV20,polysaccharide [id number] conjugate, adjuvant, PF (Prevnar 20) 06/22/2023 Social [...] Info) Description 03/19/2025 9:00 AM EDT Follow-Up [facility] Renal Transplant [address] [place] [address] Louie Pablo MD [address] [place] [address] 03/19/2025 9:30 AM EDT Social Work [facility] Renal Transplant [address] [place] [address] Imani Livingston LICSW [address] [place] [address] Health Maintenance Due Date Last Done Comments [...] Drivers of Health Lorena ual Screening 05/30/2024 Basic Metabolic Panel [...] Screening Completed 03/15/2024 Procedures * Due to [place] state law, [...] * PET/CT Skull Base to Mid Thigh [id number] (08/02/2024 7:40 PM EST) Anatomical Region Laterality Modality Entire body Magnetic Resonan ce 08/02/2024 6:50 PM EST Narrative 08/03/2024 12:07 PM EST [facility] PET/CT Imaging Accession Number: [id number] Patient Name: Joshua Barnard Date of : 1960 Date of Exam: 08-02-2024 Referring Physician: Hillary Webber ?[facility] ?[address] [place] [address] ?[place] [address] Exam: PT Skull Base to Mid Thigh [id number] CPT 33448 Room Description: [facility] Pt4 Ga-68 Dotatate PET-CT History: History [...] MD Procedure Note Provider, Viraj - 08/03/2024 [facility] PET/CT Imaging Accession Number: [id number] Patient Name: Joshua Barnard Date of : 1960 Date of Exam: 08-02-2024 Referring Physician: Hillary Webber [address] [address] Exam: PT Skull Base to Mid Thigh [id number] CPT 34554 Room Description: [facility] Pt4 Ga-68 Dotatate PET-CT History: History [...] extensive review of this patient's notes in [facility]. Without this review, the possibility of an erroneous interpretation of this exam could have occurred. If this radiology report contains a blank impression section, it is an incomplete radiology report. ??Please contact the interpreting radiologist or applicable radiology division as soon as possible to obtain the completed interpretation. ? Workstation ID: [id number] Narrative 07/09/2024 2:20 PM EST Indication: Renal [...] likely a bone island. Resulting Agency Comment [id number] Procedure Note Eusebio Poole MD - 07/09/2024 [...] possible to obtain thecompleted interpretation. Workstation ID: [id number] us Hillary Webbre MD [facility] CT PROCEDURES Final Result * CT Chest [...] obtain the completed interpretation. ? Workstation ID: [id number] Up-to-date CT equipment and radiation dose reduction techniques were employed. CTDIvol: 14.8 - 18.2 mGy. DLP: 1501 mGy-cm. ??The following accession numbers are related to this dose report [id number]: [id number] Narrative 07/10/2024 9:46 AM EST Indication: ??Renal [...] 2021, likely benign. ?? Resulting Agency Comment [id number] Procedure Note Raquel Krause MD - 07/10/2024 [...] possible to obtain thecompleted interpretation. Workstation ID: [id number] Up-to-date CT equipment and radiation dose reduction techniques wereemployed. CTDIvol: 14.8 - 18.2 mGy. DLP: 1501 mGy-cm. The followingaccession numbers are related to this dose report [id number]: [id number] Hillary Webber MD [facility] CT PROCEDURES Final Result * (ABNORMAL) Basic Metabolic Panel (07/06/2024 11:59 AM EST) NA 138 135 - 145 mmol/L 07/06/2024 12:39 PM EST [facility] K 4.4 3.5 - 5.3 mmol/L 07/06/2024 12:39 PM EST [facility] Cl 96(L) 98 - 107 mmol/L 07/06/2024 12:39 PM EST [facility] CO2 30 22 - 32 mmol/L 07/06/2024 12:39 PM EST [facility] BUN 19 7 - 23 mg/dL 07/06/2024 12:39 PM EST [facility] Creatinine 5.41(H) 0.60 - 1.30 mg/dL 07/06/2024 12:39 PM EST [facility] Glucose 147(H) 65 - 99 mg/dL 07/06/2024 12:39 PM EST [facility] Calcium 9.7 8.6 - 10.5 mg/dL 07/06/2024 12:39 PM EST [facility] Anion Gap 12 5 - 15 07/06/2024 12:39 PM EST [facility] eGFR 11(L) >=60 mL/min/1 .73m2 07/06/2024 12:39 PM EST [facility] Comment:The estimated glomer ular filtration rate (eGFR) is calculated using a new formula developed by the NKF-ASN task force to eliminate race-based correction factors. The new formula uses serum/plasma creatinine, age, and gender to determine eGFR. A value below 60mls/min might indicate kidney disease and will be flagged. For additional information, see Berg et al, Am J Kidney Dis. 2021;79(2):268- 288, A Unifying Approach for GFR estimation: Recommendations of the NKF-ASN Task Force on Reassessing the Inclusion of Race in Diagnosing Kidney Disease . Blood Structure of peripheral vein / Unknown Venipuncture / Unknown 07/06/2024 11:59 AM EST 07/06/2024 12:09 PM EST us Hillary Webber MD LAB BLOOD ORDERABLES Final Resu lt [facility] [address] [place] [address], [place] * (ABNORMAL) CBC Auto Differential (03/15/2024 12:39 PM EDT) WBC 6.2 3.8 - 10.8 10*3/uL 03/15/2024 1:11 PM EDT [facility] RBC 3.90(L) 4.20 - 5.80 10*6/uL 03/15/2024 1:11 PM EDT [facility] Hemoglobin 11.9(L) 13.2 - 17.1 g/dL 03/15/2024 1:11 PM EDT [facility] Hematocrit 36.8(L) 38.5 - 50.0 % 03/15/2024 1:11 PM EDT [facility] MCV 94.4 80.0 - 100.0 fL 03/15/2024 1:11 PM EDT [facility] MCH 30.5 27.0 - 33.0 pg 03/15/2024 1:11 PM EDT [facility] MCHC 32.3 32.0 - 36.0 g/dL 03/15/2024 1:11 PM EDT [facility] RDW 14.2 11.0 - 15.0 % 03/15/2024 1:11 PM EDT [facility] Platelets 175 140 - 400 10*3/uL 03/15/2024 1:11 PM EDT [facility] MPV 11.3 7.5 - 12.5 fL 03/15/2024 1:11 PM EDT [facility] Neutrophil % 59.1 % 03/15/2024 1:11 PM EDT [facility] Immature Grans % 0.2 0.0 - 0.9 % 03/15/2024 1:11 PM EDT [facility] Lymphocyte % 28.1 % 03/15/2024 1:11 PM EDT [facility] Monocyte % 9.9 % 03/15/2024 1:11 PM EDT [facility] Eosinophil % 2.4 % 03/15/2024 1:11 PM EDT [facility] Basophil % 0.3 % 03/15/2024 1:11 PM EDT [facility] Neutrophil # 3.63 1.50 - 7.80 10*3/uL 03/15/2024 1:11 PM EDT [facility] Immature Grans # <0.03 <=0.03 10*3/uL 03/15/2024 1:11 PM EDT [facility] Lymphocyte # 1.70 0.85 - 3.90 10*3/uL 03/15/2024 1:11 PM EDT [facility] Monocyte # 0.60 0.20 - 0.95 10*3/uL 03/15/2024 1:11 PM EDT [facility] Eosinophil # 0.20 0.02 - 0.50 10*3/uL 03/15/2024 1:11 PM EDT [facility] Basophil # <0.03 0.00 - 0.20 10*3/uL 03/15/2024 1:[address] [facility] nRBC % 0.0 /100 WBCs 03/15/2024 1:[address] [facility] nRBC # <0.01 <0.01 10*3/uL 03/15/2024 1:11 PM EDT [facility] Blood Structure of peripheral vein / Unknown Venipuncture / Unknown 03/15/2024 12:39 PM EDT 03/15/2024 12:59 PM EDT Tobias Vogt MD LAB BLOOD ORDERABLES Final Result [facility] [address] [place] [address], * Hepatitis C Antibody w/Reflex to PCR (03/15/2024 12:39 PM EDT) Hepatitis C Antibody NON-REACT ALBINO NON-REACT ALBINO 03/16/2024 3:27 AM EDT [employer] [facility] Comment: HCV antibody was non-reactive. There is no laboratory evidence of HCV infection. In most cases, no further action is required. However, if recent HCV exposure is suspected, a test for HCV RNA (test code 33117) is suggested. For additional information please refer to http://education.[employer]faq/WCB31v8 (This link is being provided for informational/ educational purposes only.) Blood Structure of peripheral vein / Unknown Venipuncture / Unknown 03/15/2024 12:39 PM EDT 03/15/2024 12:58 PM EDT Narrative [facility] - 03/16/2024 3:27 AM EDT [facility] Received Date:[id number] Tobias Vogt MD LAB BLOOD ORDERABLES Final Result Performing Organization Address City/[facility]/ZIP Co de Phone Number [facility] [address] [facility] 3rd Floor, [place] [address], [place] [phone] [employer] [facility] [address], [place] [address], [place] [phone] * Phosphorus (03/15/2024 12:39 PM EDT) Phosphorus 3.4 2.5 - 4.5 mg/dL 03/15/2024 1:45 PM EDT [facility] Blood Structure of peripheral vein / Unknown Venipuncture / Unknown 03/15/2024 12:39 PM EDT 03/15/2024 12:58 PM EDT us Tobias Vogt MD LAB BLOOD ORDERABLES Final Result [facility] [address] [place] [address], [place] * (ABNORMAL) Hemoglobin A1c (03/15/2024 12:39 PM EDT) Hemoglobin A1C 6.3(H) <5.7 % of total Hgb 03/16/2024 2:05 AM EDT [employer] Comment: For someone without known diabetes, a [...] (MG/DL) 134 mg/dL 03/16/2024 2:05 AM EDT [facility] [facility] eAG (MMOL/L) 7.4 mmol/L 03/16/2024 2:05 AM EDT [employer] Blood Structure of peripheral vein / Unknown Venipuncture / Unknown 03/15/2024 12:39 PM EDT 03/15/2024 12:59 PM EDT Narrative [facility] - 03/16/2024 2:05 AM EDT [facility] Received Date: us Tobias Vogt MD LAB BLOOD ORDERABLES Final Result [facility] [address] [facility] [address], [place] [address], [place] [phone] [employer] [facility] [address] [facility] 3rd Floor, [place] [address], [place] [phone] from Last 3 Months or Most Recently Relevant [place] [id number] [facility] Advance Directives Documents on File Type Date Recorded Patient Grant Administrator Expl anation Health Care Proxy 03/20/2024 5:28 PM 10- Care Teams Credit Control Manager Relationship Specialty Start Date End Date Patient, Has No Pcp Or Ref DO NOT EDIT THIS RECORD VIA PROVIDER ON THE FLY PCP - [employer] 03/15/24
--- OUTSIDE RECORDS SUMMARY | 2024-08-16 13:15 | XMS_ITS | Encounter Summary ---
Author Organization [employer] Address [address] 7t [place] [address] Care Team Providers Care Fly Rail Operator Name Role Phone Macie Link DO Primary Care Provider [phone] Flor Clark PharmD Unavailable [phone] Encounter Details Date Type Department Care Team (Late st Contact Info) Description 09/09/2023 Orders Only [facility] [address] [place] [address] ProviderProsper MD Social History Tobacco Use Types [...] Description 08/30/2024 8:00 AM EDT Office Visit [facility] ADULT DENTAL [address] [place] [address] Justin Anne DMD [address] [place] [address] 09/04/2024 2:30 PM EDT Medication Management [facility] [address] [place] [address] Flor Clark, PharmD [address] [place] [address] 09/11/2024 9:45 AM EDT Office Visit [address] [address] Macie Link DO [address] [place] [address] 09/13/2024 9:00 AM EDT Clinical Support [address] [address] April Murrell, PADILLA 09/24/2024 3:00 PM EDT Office Visit [facility] ADULT [facility] [address] [place] [address] Trina Arrieta documented as of this encounter [...] documented as of this encounter Care Teams Fly Rail Operator Relationship Specialty Start Date End Date Macie Link DO [address] [place] [address] PCP - General Family Medicine 05/30/18 Flor Clark PharmD [address] [place] [address] Pharmacist Internal Medicine 08/18/23 documented as of this encounter
--- OUTSIDE RECORDS SUMMARY | 2024-08-16 13:15 | XMS_ITS | Encounter Summary ---
Author Organization [employer] Address [address] 7t [place] [address] Care Team Providers Care Knifer Up Name Role Phone Macie Link DO Primary Care Provider [phone] Flor Clark PharmD Unavailable [phone] Reason for Visit * Reason Comments Med Refill Encounter Details Date Type Department Care Team ([facility] st Contact Info) Description 03/11/2023 Refill [facility] [address] [place] [address] Macie Link DO [address] [place] [address] Chronic neck pain; Anxiety Social History Tobacco [...] Description 08/30/2024 8:00 AM EDT Office Visit [facility] ADULT DENTAL [address] [place] [address] Justin Anne, SHAY [address] [place] [address] 09/04/2024 2:30 PM EDT Medication Management [facility] [address] [place] [address] Flor Clark, DerikD [address] [place] [address] 09/11/2024 9:45 AM EDT Office Visit [address] [address] Macie Link DO [address] [place] [address] 09/13/2024 9:00 AM EDT Clinical Support [address] [address] April Murrell RN 09/24/2024 3:00 PM EDT Office Visit [facility] ADULT DENTAL [address] [place] [address] Trina Arrieta documented as of this encounter Visit Diagnoses Diagnosis Chronic neck pain Cervicalgia Anxiety Anxiety state, unspecified documented in this encounter Additional Health Concerns Assessment Noted Time PHQ-9 Depression Total Score: 2 02/07/20 23 9:23 AM EST documented as of this encounter Care Teams Knifer Up Relationship Specialty Start Date End Date Macie Link DO [address] [place] [address] PCP - General Family Medicine 05/30/18 Flor Clark PharmD [address] [place] [address] Pharmacist Internal Medicine 08/18/23 documented as of this encounter
--- OUTSIDE RECORDS SUMMARY | 2024-08-16 13:15 | XMS_ITS ---
Author Organization [facility] Address [address] [place] [address] Care Team Providers Care Rig Site Engineer Name Role Phone Patient, Has No Pcp Or Ref Primary Care Provider Unavailable Transplant Episode Kidney Candidate [facility] ([place], [place]) - [facility] Evaluation began on 03/15/2024 Marked as Active on 03/15/2024 Kidney CoordinatorLynda Diaz RN Fax: N/A Email: N/A Scores Score Value Updated Exceptions/Reas ons CPRA Not available EPTS (Calc) 87 08/16/2024 [place] Organ Diagnosis Organ Primary Contributory Kidney Diabetes Mellitus - Type II Care Team Name Role Phone Fax Email Lynda Diaz RN Kidney Coordinator [phone] N/A N/A Anastacio Nickerson MD Referring Physician [phone] N/A Events Pre-Transplant Referred: 12/21/2023 Evaluation began: 03/15/2024 Dialysis History Dialysis History Start End Type Comments Center 12/17/2021 In-center Hemodialysis M, W, F AR A [facility] Dialysis Center Information Center Phone Fax Address [facility] [phone] [address] [facility] [address] [facility] [address]
--- OUTSIDE RECORDS SUMMARY | 2024-08-16 13:15 | XMS_ITS | Encounter Summary ---
Author Organization [facility], Address [address] [place] [address] Phone Care Team Providers Care Algology Teacher Name Role Phone Macie Link DO Primary Care Provider Unava ilable Encounter Details Date Type Department Care Team (Late st Contact Info) Description 11/27/2021 Documentation Only [facility], [address] [place] [place] [address] Romario Ford MD [address] [place] [phone] Social History Tobacco Use Types Packs/Day Years [...] on filedocumented in this encounter Care Teams Algology Teacher Relationship Specialty Start Date End Date Macie Link DO PCP - General 04/03/19 documented as of this encounter
--- OUTSIDE RECORDS SUMMARY | 2024-08-16 13:15 | XMS_ITS | Encounter Summary ---
Author Organization [employer] Address [address] [facility] 7t [place] [address] Care Team Providers Care Rent Control Office Manager Name Role Phone Macie Link DO Primary Care Provider [phone] Flor Clark PharmD Unavailable [phone] Reason for Visit * Reason Comments Med Refill Encounter Details Date Type Department Care Team (Late st Contact Info) Description 12/13/2023 Refill [facility] [address] [place] [address] Macie Link DO [address] [place] [address] Anxiety; Chronic neck pain Social History Tobacco [...] EDT Office Visit [facility] ADULT DENTAL [address] [place] [address] Justin Anne, DMD [address] [place] [address] 09/04/2024 2:30 PM EDT Medication Management [address] [address] Flor Clark, DerikD [address] [place] [address] 09/11/2024 9:45 AM EDT Office Visit [address] [address] Macie Link, [address] [place] [address] 09/13/2024 9:00 AM EDT Clinical Support [address] [address] April Murrell, PADILLA 09/24/2024 3:00 PM EDT Office Visit [facility] ADULT D[facility] [address] [place] [address] Trina Arrieta documented as of this encounter [...] documented as of this encounter Care Teams Rent Control Office Manager Relationship Specialty Start Date End Date Macie Link DO [address] [place] [address] PCP - General Family Medicine 05/30/18 Flor Clark PharmD [address] [place] [address] Pharmacist Internal Medicine 08/18/23 documented as of this encounter
== END 2024-08-16 11:31 | disposition home or self-care (01) ==
PROVIDERS: PCP Family Medicine; Visit Provider Internal Medicine Cardiovascular Disease
DX: I25.10 Atherosclerotic heart disease of native coronary artery without angina pectoris (principal); I48.92 Unspecified atrial flutter; I42.9 Cardiomyopathy, unspecified
CPT/HCPCS: 93010; 99214; G2211

== ENCOUNTER → 2024-08-16 11:40 | Outpatient (BNV) | payer MEDICARE, MEDICAID, SELFPAY | PROVIDERS: PCP Family Medicine; Visit Provider Radiology Diagnostic Radiology | DX: I48.92 Unspecified atrial flutter (principal) | CPT/HCPCS: 71046 ==

== ENCOUNTER 2024-08-17 10:15 | Outpatient (REF) | payer MEDICARE, MEDICAID, SELFPAY ==
[2024-08-17 12:18] LABS: Alanine Aminotransferase 165 U/L (0-40); Albumin Level 4.7 g/dL (3.5-5.0); Alkaline Phosphatase 178 U/L (39-117); Aspartate Amino Transferase 126 U/L (5-37); Bilirubin Direct 0.2 mg/dL (0.0-0.5); Bilirubin Total 0.7 mg/dL (0.0-1.0); Total Protein 8.7 g/dL (6.5-8.0)
[2024-08-17 12:51] LABS: TSH reflex Free T4 2.29 uIU/mL (0.32-4.0)
== END 2024-08-17 10:16 | disposition home or self-care (01) ==
LOC: HO.LAB 10:15
PROVIDERS: PCP Family Medicine; Visit Provider Internal Medicine Cardiovascular Disease
DX: I48.92 Unspecified atrial flutter (principal)
CPT/HCPCS: 36415; 80076; 84443

== ENCOUNTER 2024-09-14 10:48 | Outpatient (REF) | payer MEDICARE, MEDICAID, SELFPAY ==
--- OUTSIDE RECORDS SUMMARY | 2024-09-14 11:52 | XMS_ITS | Encounter Summary ---
Author Organization [facility], Address [address] [place] [address] Phone Care Team Providers Care Shipping Packer Name Role Phone Macie Link DO Primary Care Provider Unava ilable Encounter Details Date Type Department Care Team (Late st Contact Info) Description 07/30/2021 Documentation Only [facility], [address] [place] [address] Romario Ford MD [address] [place] [phone] Social History Tobacco Use Types Packs/Day Years [...] on filedocumented in this encounter Care Teams Shipping Packer Relationship Specialty Start Date End Date Macie Link DO PCP - General 04/03/19 documented as of this encounter
--- OUTSIDE RECORDS SUMMARY | 2024-09-14 11:52 | XMS_ITS | Encounter Summary ---
Author Organization [facility] [place], Address [address] [place] [address] Phone Care Team Providers Care Revising Clerk Name Role Phone Macie Link DO Primary Care Provider Unava ilable Encounter Details Date Type Department Care Team (Late st Contact Info) Description 10/23/2021 Documentation Only [facility], [address] [place] [address] Romario Ford MD [address] [place] [phone] Social History Tobacco Use Types Packs/Day Years [...] on filedocumented in this encounter Care Teams Revising Clerk Relationship Specialty Start Date End Date Macie Link DO PCP - General 04/03/19 documented as of this encounter
--- OUTSIDE RECORDS SUMMARY | 2024-09-14 11:52 | XMS_ITS | Encounter Summary ---
Author Organization [facility], Address [address] [place] [address] Phone Care Team Providers Care Integrated Circuits Inspector Name Role Phone Macie Link DO Primary Care Provider Unava ilable Encounter Details Date Type Department Care Team (Late st Contact Info) Description 07/10/2021 Documentation Only [facility], [address] [place] [address] Romario Ford MD [address] [place] [phone] Social History Tobacco Use Types Packs/Day Years [...] on filedocumented in this encounter Care Teams Integrated Circuits Inspector Relationship Specialty Start Date End Date Macie Link DO PCP - General 04/03/19 documented as of this encounter
--- OUTSIDE RECORDS SUMMARY | 2024-09-14 11:52 | XMS_ITS | Encounter Summary ---
Author Organization [facility], Address [address] [place] [address] Phone Care Team Providers Care Drop Hammer Pile Driver Operator Name Role Phone Macie Link DO Primary Care Provider Unava ilable Encounter Details Date Type Department Care Team (Late st Contact Info) Description 09/06/2021 Documentation Only [facility], [address] [place] [address] Romario Ford MD [address] [place] [phone] Social History Tobacco Use Types Packs/Day Years [...] on filedocumented in this encounter Care Teams Drop Hammer Pile Driver Operator Relationship Specialty Start Date End Date Macie Likn DO PCP - General 04/03/19 documented as of this encounter
--- OUTSIDE RECORDS SUMMARY | 2024-09-14 11:52 | XMS_ITS | Encounter Summary ---
Author Organization [facility], Address [address] [place] [address] Phone Care Team Providers Care Director Organizational Name Role Phone Macie Link DO Primary Care Provider Unava ilable Encounter Details Date Type Department Care Team (Late st Contact Info) Description 09/06/2021 Documentation Only [facility], [address] [place] [address] Romario Ford MD [address] [place] [phone] Social History Tobacco Use Types Packs/Day Years [...] filedocumented in this encounter Care Teams Director Organizational Relationship Specialty Start Date End Date Macie Link DO PCP - General 04/03/19 documented as of this encounter
--- OUTSIDE RECORDS SUMMARY | 2024-09-14 11:52 | XMS_ITS | Encounter Summary ---
Author Organization [facility], Address [address] [place] [address] Phone Care Team Providers Care Can Crimper Name Role Phone Macie Link DO Primary Care Provider Unava ilable Encounter Details Date Type Department Care Team (Late st Contact Info) Description 09/24/2021 Documentation Only [facility], [address] [place] [address] Romario Ford MD [address] [place] [phone] Social History Tobacco Use Types Packs/Day Years [...] filedocumented in this encounter Care Teams Can Crimper Relationship Specialty Start Date End Date Macie Link DO PCP - General 04/03/19 documented as of this encounter
--- OUTSIDE RECORDS SUMMARY | 2024-09-14 11:52 | XMS_ITS | Encounter Summary ---
Author Organization [facility], Address [address] [place] [address] Phone Care Team Providers Care Sports Physiotherapist Name Role Phone Macie Link DO Primary Care Provider Unava ilable Encounter Details Date Type Department Care Team (Late st Contact Info) Description 09/04/2021 Documentation Only [facility], [address] [place] [address] Romario Ford MD [address] [place] [phone] Social History Tobacco Use Types Packs/Day Years [...] on filedocumented in this encounter Care Teams Sports Physiotherapist Relationship Specialty Start Date End Date Macie Link DO PCP - General 04/03/19 documented as of this encounter
--- OUTSIDE RECORDS SUMMARY | 2024-09-14 11:52 | XMS_ITS | Encounter Summary ---
Author Organization [facility], Address [address] [place] [address] Phone Care Team Providers Care Electronic Gaming Device Supervisor Name Role Phone Macie Link DO Primary Care Provider Unava ilable Encounter Details Date Type Department Care Team (Late st Contact Info) Description 09/01/2021 Documentation Only [facility], [address] [place] [phone] Estefania Sung PA Social History Tobacco Use [...] on filedocumented in this encounter Care Teams Electronic Gaming Device Supervisor Relationship Specialty Start Date End Date Macie Link DO PCP - General 04/03/19 documented as of this encounter
--- OUTSIDE RECORDS SUMMARY | 2024-09-14 11:52 | XMS_ITS | Encounter Summary ---
Author Organization [facility], Address [address] [place] [address] Phone Care Team Providers Care Sewing Inspector Name Role Phone Macie Link DO Primary Care Provider Unava ilable Encounter Details Date Type Department Care Team (Late st Contact Info) Description 09/21/2021 Documentation Only [facility], [address] [place] [address] Romario Ford MD [address] [place] [phone] Social History Tobacco Use Types Packs/Day Years [...] on filedocumented in this encounter Care Teams Sewing Inspector Relationship Specialty Start Date End Date Macie Link DO PCP - General 04/03/19 documented as of this encounter
--- OUTSIDE RECORDS SUMMARY | 2024-09-14 11:52 | XMS_ITS | Encounter Summary ---
Author Organization [facility] Address [address] [place] [address] Care Team Providers Care Auto Cleaner Name Role Phone Patient, Has No Pcp Or Ref Primary Care Provider Unavailable Reason for Visit * Reason Onset Date Comments Appointment 09/10/2024 Pt of Viraj Sultana PET requesting office notes and imaging for upcoming PET scan Encounter Details Date Type Department Care Team (Late st Contact Info) Description 09/10/2024 Telephone [facility] 5th Floor [address] [place], [place] [phone] Pierce Au MD [address] [place], [place] [phone] Appointment (Pt of Viraj Deng requesting office notes and imaging for upcoming PET scan ) Social History Tobacco Use Types Packs/Day Years Used Date Smoking Tobacco: Never Assessed Sex and Gender Information Value Date Recorded Sex Assigned at Male 03/16/2024 8:40 AM EDT Legal Sex Male 2:40 PM EDT Gender Identity Male 06/14/2024 1:47 PM EST Sexual Orientation Straight 06/14/2024 1: 47 PM EST documented as of this encounter Miscellaneous Notes * Telephone Encounter - Emelia Rebolledo - 09/10/2024 1:39 PM EDT Pt of Viraj Deng PET requesting office notes and imaging for upcoming PET scan faxed to [phone]. I could not find an office note PT transferred care to Dr. Au appointment scheduled on 4/28. documented in this encounter Plan of Treatment Upcoming Encounters Date Type Department Care Team (Late st Contact Info) Description 09/24/2024 8:30 AM EDT Follow-Up [facility] 5th Floor [address] [place] [address] Pierce Au MD [address] [place] [address] 03/19/2025 9:00 AM EDT Follow-Up [facility]plant [address] [place] [address] Louie Pablo MD [address] [place] [address] 03/19/2025 9:30 AM EDT Social Work [facility] [address] [place] [address] Imani Livingston LICSW [address] [place] [address] documented as of this encounter Visit Diagnoses Not on filedocumented in this encounter Care Teams Auto Cleaner Relationship Specialty Start Date End Date Patient, Has No Pcp Or Ref DO NOT EDIT THIS RECORD VIA PROVIDER ON THE FLY PCP - General Member Services Representative 03/15/24 documented as of this encounter
--- OUTSIDE RECORDS SUMMARY | 2024-09-14 11:52 | XMS_ITS | Encounter Summary ---
Author Organization [facility], Address [address] [place] [address] Phone Care Team Providers Care Electric Wheelchair Repairer Name Role Phone Macie Link DO Primary Care Provider Unava ilable Encounter Details Date Type Department Care Team (Late st Contact Info) Description 09/24/2021 Documentation Only [facility], [address] [place] [address] Romario Ford MD [address] [place] [phone] Social History Tobacco Use Types Packs/Day Years [...] on filedocumented in this encounter Care Teams Electric Wheelchair Repairer Relationship Specialty Start Date End Date Macie Link DO PCP - General 04/03/19 documented as of this encounter
--- OUTSIDE RECORDS SUMMARY | 2024-09-14 11:53 | XMS_ITS | Encounter Summary ---
Author Organization [facility] Address [address] [facility] 7t [place] [address] Care Team Providers Care Strategic Marketing Specialist Name Role Phone Macie Link DO Primary Care Provider Flor Clark PharmD Unavailable Encounter Details Date Type Department Care Team (Late st Contact Info) Description 07/27/2022 Abstract [facility] MEDICINE [address] [place] [address] Macie Link DO [address] [place] [address] Social History Tobacco Use Types Packs/Day Years [...] Care Team (Late st Contact Info) Description 09/26/2024 2:00 PM EDT Office Visit [facility] ADULT DENTAL [address] [place], [place] [phone] Justin Anne, DMD [address] [place] [address] 10/11/2024 9:00 AM EDT Medication Management [address] [address] Flor Clark PharmD [address] [place] [address] 11/13/2024 11:30 AM EDT Clinical Support [facility] [address] [place] [address] April Murrell, PADILLA 11/14/2024 2:00 PM EDT Office Visit [facility] ADULT DENTAL [address] [place] [address] Eleni Shin [address] [place] [address] documented as of this encounter Visit Diagnoses Not on filedocumented in this encounter Additional Health Concerns Assessment Noted Time PHQ-9 Depression Total Score: 2 07/06/19 23 9:23 AM EST documented as of this encounter Care Teams Strategic Marketing Specialist Relationship Specialty Start Date End Date Macie Link DO [address] [place] [address] PCP - General Family Medicine 05/30/18 Flor Clark PharmD [address] [place] [phone] Pharmacist Internal Medicine 08/18/23 documented as of this encounter
--- OUTSIDE RECORDS SUMMARY | 2024-09-14 11:53 | XMS_ITS | Encounter Summary ---
Author Organization [employer] Address [address] 7t [place] [address] Care Team Providers Care Sequins Winder Name Role Phone Macie Link DO Primary Care Provider Flor Clark PharmD Unavailable [phone] Reason for Visit * Reason Onset Date Comments telephone call 09/12/2024 Encounter Details Date Type Department Care Team ([facility] st Contact Info) Description 09/12/2024 Telephone [facility] [address] [place] [address] Macie Link DO [address] [place] [address] telephone call Social History Tobacco Use Types Packs/Day Years Used Date Smoking Tobacco: Former Cigarettes Passive Smoke Exposure: Past Smokeless Tobacco: Never Alcohol Use Standard Drinks/Week Comments Never 0 (1 standard drink = 0.6 oz pur e alcohol) Depression Answer Date Recorded Patient Health Questionnaire-9 Score 9 09/11/2024 Patient Health Questionnaire-9 Score 9 09/11/2024 Last PHQ-9: Questionnaire Data Not on file 0 09/11/2024 Housing Stability Answer Date Recorded What is [...] got money to buy more: Never True 09/11/2024 Within the past 12 months,th e food [...] shut off services in your home? No 09/11/2024 Depression Answer Date Recorded Patient Health Questionnaire-2 Score 4 09/11/2024 Internet Access Answer Date Recorded Internet Access Q1 Yes 09/11/2024 Internet Access Q2 Not on file 09/11/2024 Sex and Gender Information Value Date Recorded Sex Assigned at Male 03/29/2022 10:15 AM EDT Legal Sex Male 10:15 AM EDT Gender Identity Male 03/29/2022 10:15 AM EDT Sexual Orientation Choose not to disclose 2021 10:15 AM EDT documented as of this encounter Miscellaneous Notes * Addendum Note - Sam Sams RN - 09/14/2024 9:10 AM EDTAddended by: SAM SAMS on: 09/14/2024 09:10 AM Modules accepted: Orders * Telephone Encounter - Sam Sams RN - 09/12/2024 2:50 PM EDT Massat reviewed 09/12/24, last p/u on 08/20/24 for a 28 day supply. Medication is not due until 09/17/24, RN will pend on 09/14/24. * Telephone Encounter - She Su - 09/12/2024 2:00 PM EDT Pt walked in requesting a refill for Ambien 10mg,Clonazepam 1mg and Percocet 325mg. documented in this encounter Plan of Treatment Upcoming Encounters Date Type Department Care Team (Late st Contact Info) Description 09/26/2024 2:00 PM EDT Office Visit [facility] ADULT D[facility]AL [address] [place] [address] Justin Anne, DMD [address] [place] [address] 10/11/2024 9:00 AM EDT Medication Management [facility] [address] [place] [address] Flor Clark PharmD [address] [place] [address] 11/13/2024 11:30 AM EDT Clinical Support [facility] [address] [place] [address] April Murrell RN 11/14/2024 2:00 PM EDT Office Visit [facility] [address] [place] [address] Eleni Shin [address] [place] [address] documented as of this encounter Goals Goal Patient Goal Type Associated Problems Recent Progress Patient-Stated? Author Hemoglobin A1c < 7 Result Component 6.4( 10:10 AM EDT) No Flor Clark PharmD Note: A1c value is falsely low d/t dialysis. Ordered fructosamine value 08/18/23 and once resulted will use to calculate a more accurate A1c Record your blood sugar as directed Result Component No Flor Calrk PharmD Note: Use CGM, ensuring sensor is [...] Assessment Noted Time PHQ-9 Depression Total Score: 9 09/12/19 25 11:18 AM EDT documented as of this encounter Care Teams Sequins Winder Relationship Specialty Start Date End Date Macie Link DO [address] [place], [place] [phone] PCP - General Family Medicine 05/30/18 Flor Clark PharmD [address] [place] [address] Pharmacist Internal Medicine 08/18/23 documented as of this encounter
--- OUTSIDE RECORDS SUMMARY | 2024-09-14 11:53 | XMS_ITS | Encounter Summary ---
Author Organization [facility] Address [address] [facility] 7t [place] [address] Care Team Providers Care Sales Process Manager Name Role Phone Macie Link Primary Care Provider Flor Clark PharmD Unavailable [phone] Encounter Details Date Type Department Care Team (Late st Contact Info) Description 05/18/2022 Orders Only [facility] [address] [place] [address] Mariella Diallo LPN Social History Tobacco Use [...] Description 09/26/2024 2:00 PM EDT Office Visit [facility] ADULT DENTAL [address] [place] [address] Justin Anne, DMD [address] [place] [address] 10/11/2024 9:00 AM EDT Medication Management [facility] MED[facility] [address] [place] [address] PuiaGeovaniFlor, PharmD [address] [place] [address] 11/13/2024 11:30 AM EDT Clinical Support [facility] [address] [place] [address] April Murrell RN 11/14/2024 2:00 PM EDT Office Visit [facility] ADULT DENTAL [address] [place] [address] Eleni Shin [address] [place] [address] documented as of this encounter Visit Diagnoses Not on filedocumented in this encounter Care Teams Sales Process Manager Relationship Specialty Start Date End Date Macie Link DO [address] [place] [address] PCP - General Family Medicine 05/30/18 Flor Clark PharmD [address] [place] [address] Pharmacist Internal Medicine 08/18/23 documented as of this encounter
--- OUTSIDE RECORDS SUMMARY | 2024-09-14 11:53 | XMS_ITS | Encounter Summary ---
Author Organization [facility] Address [address] [place] [address] Care Team Providers Care National Opelint Analyst Name Role Phone Patient, Has No Pcp Or Ref Primary Care Provider Unavailable Encounter Details Date Type Department Care Team (Late st Contact Info) Description 06/28/2024 Orders Only [facility] Nuclear Medicine [address] [place] [address] Kandice Pacheco MD [address] [place] [address] Social History Tobacco Use Types Packs/Day Years [...] Info) Description 09/24/2024 8:30 AM EDT Follow-Up [facility] 5th Floor [address] [place] [address] Pierce Au MD [address] [place] [address] 03/19/2025 9:00 AM EDT Follow-Up [facility] Renal Transplant [address] [place] [address] Louie Pablo MD [address] [place] [address] 03/19/2025 9:30 AM EDT Social Work [facility] Transplant [address] [place] [address] Imani Livingston LICSW [address] [place], [place] [phone] documented as of this encounter Visit Diagnoses Not on filedocumented in this encounter Care Teams National Opelint Analyst Relationship Specialty Start Date End Date Patient, Has No Pcp Or Ref DO NOT EDIT THIS RECORD VIA PROVIDER ON THE FLY PCP - General Correspondence Review Clerk 03/15/24 documented as of this encounter
--- OUTSIDE RECORDS SUMMARY | 2024-09-14 11:53 | XMS_ITS | Encounter Summary ---
Author Organization [employer] Address [address] [facility] 7t [place] [address] Care Team Providers Care Elementary Science Teacher Name Role Phone Macie Link DO Primary Care Provider Flor Clark PharmD Unavailable [phone] Reason for Visit * Reason Comments Med Refill Encounter Details Date Type Department Care Team ([facility] st Contact Info) Description 03/29/2024 Refill [facility] MED[facility] [address] [place] [address] Macie Link DO [address] [place] [address] Chronic neck pain Social History Tobacco Use [...] Description 09/26/2024 2:00 PM EDT Office Visit [facility] ADULT DENTAL [address] [place] [address] Justin Anne, DMD [address] [place] [address] 10/11/2024 9:00 AM EDT Medication Management [facility] [address] [place] [address] Flor Clark, DerikD [address] [place] [address] 11/13/2024 11:30 AM EDT Clinical Support [facility] [address] [place] [address] April Murrell, PADILLA 11/14/2024 2:00 PM EDT Office Visit [facility] ADULT DENTAL [address] [place] [address] Eleni Shin [address] [place] [address] documented as of this encounter Goals Goal Patient Goal Type Associated Problems Recent Progress Patient-Stated? Author Hemoglobin A1c < 7 Result Component 6.4( 10:10 AM EDT) No Flor Clark, Jaspreet Note: A1c value [...] documented as of this encounter Care Teams Elementary Science Teacher Relationship Specialty Start Date End Date Macie Link DO [address] [place] [address] PCP - General Family Medicine 05/30/18 Flor Clark PharmD [address] [place] [address] Pharmacist Internal Medicine 08/18/23 documented as of this encounter
--- OUTSIDE RECORDS SUMMARY | 2024-09-14 11:53 | XMS_ITS | Clinical Summary ---
Author Organization [facility], Address [address] [place] [address] Phone Care Team Providers Care Power Plant Operations Manager Name Role Phone Macie Link [...] Encounters Date Type Department Care Team Description 09/05/2024 Treatment [facility], [place] [place] [address] Romario Ford MD End stage renal disease; Dependence on renal dialysis 09/03/2024 Treatment [facility], [place] [address] [place] [address] Romario Ford MD End stage renal disease; Dependence on renal dialysis 08/20/2024 Treatment [facility], [place] [place] [address] Romario Ford MD End stage renal disease; Dependence on renal dialysis 08/08/2024 Treatment [facility], [place] [place] [address] Romario Ford MD End stage renal disease; Dependence on renal dialysis 08/01/2024 Treatment [facility], [place] [place] [address] Romario Ford MD End stage renal disease; Dependence on renal dialysis 07/04/2024 Treatment [facility], [place] [place] [address] Romario Frod MD 06/20/2024 Treatment [facility], [place] [address] [place] [address] Romario Ford MD 06/18/2024 Treatment [facility], [place] [place] [address] Romario Ford MD from Last 3 Months Immunizations Immunization Administration Dates Next Due Hepatitis B 12/19/2014,05/22/2014,04/03/2014 [...] 12/30/2023 12/29/2022, 11/03/2022, 10/04/2022, Additional history exists Diabetes: Hemoglobin A1C 09/05/2024 025, 03/15/2024, 11/30/2023, Additional history exists Influenza Vaccine (Season Ended) 2025 02/03/2023, 02/20/2022, 02/23/2021, Additional history exists Pneumococcal Vaccine: 50+ Years Completed 12/26/2023, 06/22/2023, 05/28/2022, Additional history exists Pneumococcal Vaccine: Peds ( 0 to 5 Years) and At-Risk Patients (6 to 49 Years) Discontinued 12/26/2023, 06/22/2023, 05/28/2022, Additional history exists Procedures Procedure Name Priority Date/Time Associated Diagnosis Comments HEMATOLOGY Routine 12/21/2023 SPECIAL CHEMISTRY Routine 11/30/2023 from Last 3 Months or Most Recently Relevant to Health Maintenance Results * (ABNORMAL) HEMATOLOGY (12/21/2023) Hemoglobin 10.1(L) 14.0 - 18.0 g/dL Anaergia Hemoglobin x 3 30.3(L) 42.0 - 54.0 % Anaergia 12/21/2023 12/22/2023 8:1 6 AM EDT Narrative [facility] [employer] [facility] - 12/22/2023 Unless otherwise specified, test(s) performed at: [facility], [address] [place] [address] TRUCK DRIVER'S OFFSIDER: Jos Curran M.D. For any questions, please call customer service at FREQUENCY:OTHER Resulting Agency Comment Specimen source: Blood us Anastacio Nickerson MD LAB BLOOD ORDERABLES Final Re sult [facility] [employer] [facility] See order comments or contact performing lab Unknown, [place] * (ABNORMAL) SPECIAL CHEMISTRY (11/30/2023) Hemoglobin A1C 7.3(H) 4.8 - 5.9 % Anaergia 11/30/2023 12/02/2023 1:1 5 PM EDT Narrative [facility] - 12/03/2023 Unless otherwise specified, test(s) performed at: [facility], [address] [place] [id number] TRUCK DRIVER'S OFFSIDER: Jos Curran M.D. For any questions, please call customer service at FREQUENCY:MONTHLY Resulting Agency Comment Specimen source: Blood Anastacio Nickerson MD LAB BLOOD BANK TEST ORDERABLE S Final Result [facility] See order comments or contact performing lab Unknown, [place] from Last 3 Months or Most Recently Relevant to Health Maintenance Insurance Medicaid [place] [employer] Medicare [place] Care Teams Power Plant Operations Manager Relationship Specialty Start Date End Date Macie Link DO PCP - General 04/03/19
--- OUTSIDE RECORDS SUMMARY | 2024-09-14 11:53 | XMS_ITS | Clinical Summary ---
Author Organization [employer] Address [address] [facility] [address] [place] [address] Care Team Providers Care Power Saw Operator Name Role Phone FaribaMacie Primary Care Provider [phone] Flor Clark PharmD Unavailable [phone] Allergies No known active allergies Medications [...] MD. 30 patch 5 Active Continuous Glucose Facilities Manager (FreeStyle Gurmeet 2 [place]) deviceIndicatio ns:Type 2 diabetes mellitus with chronic kidney disease on chronic dialysis, with long-term current use of insulin (CMS/[facility]) Use for continuous glucose monitoring per package [...] dialysis, with long-term current use of insulin (CMS/[facility]) USE DIRECTED TO TEST BLOOD SUGAR EVERY 8 HOURS CHANGE EVERY 14 DAYS 6 each 3 Active cyanocobalamin (Vitamin B-12) 1000 MCG tabletIndicatio ns:B12 deficiency Take 1 tablet (1,000 mcg) by mouth 2 (two) times a week. 8 tablet 11 024 2024 Active atorvastatin (Lipitor) 80 MG tablet Take [...] long-term current use of insulin (CMS/HCC) Use up to 4 daily as directed 100 each 025 Active glucose blood (FreeStyle Precision Andrés Test) test stripIndication s:Type 2 diabetes mellitus with other specified complication, with long-term current use of insulin (CMS/HCC) Use to test blood sugar up to 3 times daily, as directed 100 each 025 Active clotrimazole (Lotrimin) 1 % cream APPLY TO THE AFFECTED AREA(S) TWICE DAILY IN THE MORNING AND IN THE EVENING 60 g 025 Active Viagra 100 MG tabletIndicatio ns:Erectile dysfunction, unspecified erectile dysfunction type TAKE 1 TABLET 1 HOUR BEFORE SEXUAL RELATIONS ONCE DAILY NEEDED. 10 tablet 025 Active Pentips Generic Pen [place] 32G X 4 MM miscIndications :Type 2 diabetes mellitus with other specified complication, with long-term current use of insulin (CMS/HCC) USE DIRECTED FOUR TIMES DAILY 100 each 025 Active levothyroxine (Synthroid, Levoxyl) 125 MCG tabletIndicatio ns:Hypothyroidi sm, unspecified type TAKE 1 TABLET BY MOUTH EVERY MORNING 90 tablet 025 Active omeprazole (PriLOSEC) [address] capsuleIndicati ons:Chronic GERD TAKE 1 CAPSULE BY MOUTH TWICE DAILY IN THE MORNING AND IN THE EVENING WITH FOOD 180 capsule 025 Active glucose blood (OneTouch Ultra) test stripIndication s:Type 2 diabetes mellitus with chronic kidney disease on chronic dialysis, with long-term current use of insulin (CMS/HCC) Use to test blood sugar three times daily 100 each 025 2025 Active OneTouch Delica Lancets 33G miscIndications :Type 2 diabetes mellitus with chronic kidney disease on chronic dialysis, with long-term current use of insulin (CMS/HCC) Use to test blood sugar three times daily 100 each 025 Active Blood Glucose Monitoring Suppl (ONE TOUCH ULTRA 2) w/Device kitIndications: Type 2 diabetes mellitus with chronic kidney disease on chronic dialysis, with long-term current use of insulin (CMS/HCC) Use to test blood sugar three times daily 1 kit 025 Active zolpidem (Ambien) 10 MG tabletIndicatio ns:Anxiety TAKE 1 TABLET BY MOUTH AT BEDTIME NEEDED FOR SLEEP 28 tablet 025 Active oxyCODONE-aceta minophen (Percocet) 10-325 MG tabletIndicatio ns:Chronic neck pain Take 1 tablet by mouth every 4 (four) hours if needed for severe pain. 168 tablet 025 Active clonazePAM (KlonoPIN) 1 MG tabletIndicatio ns:Anxiety Take 1 tablet (1 mg) by mouth 2 times daily for 28 days. 56 tablet 025 2024 Active Semaglutide, 2 MG/DOSE, (Ozempic, 2 MG/DOSE,) 8 MG/3ML solution pen-injectorInd ications:Type 2 diabetes mellitus with chronic kidney disease on chronic dialysis, with long-term current use of insulin (CMS/HCC) Inject 0.75 mL (2 mg) under the skin 1 (one) time per week. 3 mL 11 025 Active insulin glargine (Lantus SoloStar) 100 UNIT/ML penIndications: Type 2 diabetes mellitus with chronic kidney disease on chronic dialysis, with long-term current use of insulin (CMS/HCC) INJECT 22 UNITS SUBCUTANEOUSLY ONCE DAILY 15 mL 3 025 Active semaglutide (Ozempic, 1 MG/DOSE,) 4 MG/3ML solution pen-injectorInd ications:Type 2 Diabetes Mellitus Inject 1 mg under the skin 1 (one) time per week. 3 mL 11 024 2024 Discontinued(D ose adjustment) insulin glargine (Lantus SoloStar) 100 UNIT/ML penIndications: Type 2 diabetes mellitus with chronic kidney disease on chronic dialysis, with long-term current use of insulin (CMS/HCC) INJECT 28 UNITS SUBCUTANEOUSLY ONCE DAILY 15 mL 3 024 2024 Discontinued(R eorder (will not trigger notification to Pharmacy)) zolpidem (Ambien) 10 MG tabletIndicatio ns:Anxiety TAKE 1 TABLET BY MOUTH AT BEDTIME NEEDED FOR SLEEP Do not start before July 23, 2024. 28 tablet 025 2024 Discontinued(R eorder (will not trigger notification to Pharmacy)) clonazePAM (KlonoPIN) 1 MG tabletIndicatio ns:Anxiety TAKE 1 TABLET BY MOUTH TWICE DAILY FOR 28 DAYS 56 tablet 025 2024 Discontinued(R eorder (will not trigger notification to Pharmacy)) oxyCODONE-aceta minophen (Percocet) 10-325 MG tabletIndicatio ns:Chronic neck pain TAKE 1 TABLET BY MOUTH EVERY 4 HOURS NEEDED FOR SEVERE PAIN FOR 28 DAYS 168 tablet 025 2024 Discontinued(R eorder (will not trigger notification to Pharmacy)) amoxicillin (Amoxil) 500 MG capsule Take 4 caps 1 hour prior dental procedure 12 capsule 025 2024 Discontinued(I neffective) chlorhexidine (Peridex) 0.12 % solution Use 15 mL in the mouth or throat if needed in the morning, at noon, and at bedtime (PROPHYLAXIS) for up to 5 days. 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 05/08/2024 Hyperlipidemia, unspecified 05/08/2024 Hypothyroidism, unspecified 05/08/2024 Iron deficiency anemia, unspecified 05/08/2024 Acquired absence of kidney 03/23/2024 Personal history of nicotine dependence 03/23/20 Anemia in chronic kidney disease 03/23/2024 Old [...] in intervention, Patient to reach out to [facility] team as needed, and Comply [...] carcinoma 06/23/2022 Chronic gastroesophageal reflux disease 06/23/19 S/p nephrectomy 06/23/2022 History of cholecystectomy 06/23/2022 [...] Acute kidney injury superimp osed on CKD (CMS/HCC) 02/03/2023 02/03/2023 Depression 02/03/2023 02/03/2023 Radiculitis 02/03/2023 [...] Encounters Date Type Department Care Team Description 09/14/[address] [facility] [address] [facility] [place] [address] Macie Link DO telephone call 09/13/2024 Telephone [facility] [address] [place] [address] Macie Link DO telephone call 09/12/2024 Telephone [facility] [address] [place] [address] Macie Link DO telephone call 09/11/2024 9:45 AM EDT Office Visit [address] [address] Macie Link DO Type 2 diabetes mellitus with chronic kidney disease on chronic dialysis, with long-term current use of insulin ([facility]) 09/11/[address] [facility] [address] [place] [phone] Macie Link DO telephone call 09/11/2024 Travel 09/10/[address] [address] Macie Link DO Durable Medical Equipment 09/04/2024 Travel 08/30/2024 8:00 AM EDT Office [address] [facility] [address] [place] [address] Justin Anne, DMD 08/24/[address] [address] Macie Link DO Prior Authorization (Alan BATRES Request: Lidocaine 5% Patch) 08/20/[address] [facility] [address] [place] [phone] Macie Link DO Anxiety; Chronic neck pain 08/20/[address] [address] Macie Link DO Chronic neck pain; Anxiety 08/20/[address] [place] [address] Macie Link DO med refill 08/20/[address] [address] Cassie Jeronimo MD Chronic neck pain; Anxiety 08/17/2024 Orders Only GENERIC EXTERNAL DATA DEPARTMENT Provider, Generic External Data 08/16/2024 Orders Only [facility] External Provider, [facility] 08/16/[address] [facility] [address] [place] [address] Bhavani Rojas, RN Type 2 diabetes mellitus with chronic kidney disease on chronic dialysis, with long-term current use of insulin ([facility]) 08/15/2024 1:30 PM EDT Office Visit [facility] [address] [place] [phone] Justin Anne DMD 08/08/[address] [address] Macie Link DO Prior Authorization (Lizzeth BATRES Requesd: Lidocaine 5% Patch) 08/08/[address] [address] Macie Link DO Hypothyroidism, unspecified type; Chronic GERD 08/06/[address] [address] Macie Link DO Durable Medical Equipment (DME Request: Boost) 08/02/[address] [address] Macie Link DO telephone call 08/02/2024 Travel 07/26/2024 1:30 PM EST Office Visit [facility] [address] [place] [phone] Justin Anne DMD 07/26/[address] [address] Macie Link DO Appointment Request 07/25/[address] [facility] [address] [place] [phone] Justin Anne DMD 07/24/2024 10:00 AM EST Office Visit [facility] [address] [place] [address] Karmen Bustamante, DDS Bruxism (Primary Dx); Open fracture of tooth, initial encounter 07/21/[address] [facility] [address] [place] [address] Macie Link DO Type 2 diabetes mellitus with other specified complication, with long-term current use of insulin ([facility]) 07/18/[address] [facility] [address] [place] [address] Macie Link DO Anxiety; Chronic neck pain; Erectile dysfunction, unspecified erectile dysfunction type 06/25/[address] [facility] [address] [place] [address] Catherine Madera MD Anxiety; Chronic neck pain 06/25/[address] [facility] [address] [place] [address] Macie Link DO Med Refill 06/22/[address] [facility] [address] [place] [address] Catherine Madera MD Anxiety; Chronic neck pain 06/19/2024 9:30 AM EST Clinical Support [facility] [address] [place] [address] April Murrell RN Chronic neck pain (Primary Dx) 06/19/[address] [facility] [address] [place] [phone] Macie Link DO 06/19/[address] [address] Aprli Murrell, PADILLA BPI & CLAIRE Scoring; Abnormal UTOX 06/19/2024 Travel 06/19/[address] [facility] [address] [place] [address] April Murrell, RN Recommend CORRECTIONS IDENTIFICATION TECHNICIAN Tier 2 from Last 3 Months Immunizations Name Administration [...] unspecified 11/10/2000 Tdap 02/04/2012 Zoster, Recombinant 11/24/2021,09/17/2021 Family History Medical History Relation Name Comments Diabetes Daughter Diabetes Mother Hypertension Mother Kidney disease Mother Sleep apnea Son Relation Name Status Comments Daughter Mother Son Social History Tobacco Use Types Packs/Day Years [...] Sign Reading Time Taken Comments Blood Pressure 124/70 09/11/2024 10:07 AM EDT Pulse 70 09/11/2024 10:07 AM EDT Temperature 37.1 ??C (98.7 ??F) 09/11/2024 10:07 AM E DT Respiratory Rate 20 09/11/2024 10:07 AM EDT Oxygen Saturation 97% 09/11/2024 10:07 AM EDT Inhaled Oxygen Concentration - - Weight 90.3 kg (199 lb) 09/11/2024 10:07 AM EDT Height 167.6 cm (5' 6 ) 09/11/2024 10:07 AM EDT Body Mass Index 32.12 09/11/2024 10:07 AM EDT Plan of Treatment Upcoming Encounters Date Type Department Care Team (Late st Contact Info) Description 09/26/2024 2:00 PM EDT Office Visit [facility] [address] [place] [address] Justin Anne, DMD [address] [place] [address] 10/11/2024 9:00 AM EDT Medication Management [facility] [address] [place] [phone] Flor Clark, PharmD [address] [place] [address] 11/13/2024 11:30 AM EDT Clinical Support [facility] [address] [place] [phone] April Murrell RN 11/14/2024 2:00 PM EDT Office Visit [facility] [address] [place] [address] Eleni Shin [address] [place] [address] Health Maintenance Due Date Last Done Comments CT Colonography 1960 FIT DNA/Cologuard 1960 FIT 1960 FOBT 1960 Sigmoidoscopy 1960 Diabetes: Foot Exam 09/21/1969 Hepatitis A Vaccines (1 of 2 - Risk 2-dose series) 09/21/1978 Dental Prophylaxis 08/10/2013 02/09/2013 COVID-19 Vaccine ( season) 2024 03/08/2023, 03/12/2022, 03/12/2022, Additional history exists Dental Oral Exam 09/18/2024 03/19/2024, , 08/20/2013, Additional history exists Eye Exam 11/02/2024 11/03/2023, 06/10/2023, 11/03/2023, Additional history exists Lipid Panel 11/02/2024 11/03/2023, 12/09/2020 Colonoscopy 03/11/2025 02/23/2022, 02/25/2016 Colorectal Cancer Screening 03/11/2025 Depression Monitoring 03/13/2025 09/11/2024, 025 Diabetes: Hemoglobin A1C 03/13/2025 025, 09/04/2024, 06/07/2024, Additional history exists Dental X-Ray: Bitewings 03/20/2025 03/19/20 24, 03/09/2024, 12/11/2014, Additional history exists Alcohol/Substance Use Screening 09/11/2025 09/11/2024 Depression Screening 09/11/2025 09/11/2024, 09/12/19 25 SDOH Screening 09/11/2025 09/11/2024 Tobacco Screening 09/11/2025 09/11/2024 Dental X-Ray: Full Mouth 03/20/2027 03/19/2024, 11/27 [...] Name Priority Date/Time Associated Diagnosis Comments POCT GLYCATED HEMOGLOBIN, TOTAL Routine 09/11/2024 10:10 AM EDT Type 2 diabetes mellitus with chronic kidney disease on chronic dialysis, with long-term current use of insulin ([facility]) POCT GLUCOSE Routine 09/11/2024 10:10 AM EDT Type 2 diabetes mellitus with chronic kidney disease on chronic dialysis, with long-term current use of insulin ([facility]) POCT GLYCATED HEMOGLOBIN, TOTAL Routine 09/04/2024 2:40 PM EDT Type 2 diabetes mellitus with chronic kidney disease on chronic dialysis, with long-term current use of insulin ([facility]) NO CHARGE PROCEDURE Routine 08/30/2024 8 :00 AM EDT TSH W/REFLEX TO FT4 Routine 08/17/2024 1 0:39 AM EDT HEPATIC FUNCTION PANEL Routine 10:39 AM EDT XR CHEST 2 VIEWS Routine 08/16/2024 11:4 0 AM EDT CASE PRESENTATION, DETAILED AND EXTENSIVE TREATMENT [...] QUANTITATIVE, URINE Routine 06/19/2024 9:00 AM EST INTRAORAL - COMPLETE SERIES OF RADIOGRAPHIC [...] to Health Maintenance Results * (ABNORMAL) POCT HGB A1C (09/11/2024 10:10 AM EDT) Only the most recent of2 resultswithin the time period is included. Hemoglobin A1C 6.4(A) 4.0 - 6.0 % QC Media Lot # [id number] Lot# Expiration Date Blood 09/11/2024 10:1 0 AM EDT Macie Fariba DO POINT OF CARE TEST ENTER/EVENS T ORDERABLES Final Result * POCT Glucose (09/11/2024 10:10 AM EDT) Pathologist [facility] Glucose Blood, POC 135 60 - 200 mg/dL QC Media Lot # [id number] Lot# Expiration Date Blood Capillary blood specimen / Unknown 09/11/2024 10:10 AM EDT Macie Link DO POINT OF CARE TEST ENTER/EVENS T ORDERABLES Final Result * TSH with Reflex to Free T4 (08/17/2024 10:39 AM EDT) Pathologist [facility] TSH reflex Free T4 2.29 0.32 - 4.0 uIU/mL [facility] 08/17/2024 10:3 9 AM EDT 08/17/2024 10:40 AM EDT Generic External Data Provider LAB BLOOD ORDERAB LES Final Result [facility] [address] [place] [phone] * (ABNORMAL) Hepatic Function Panel (08/17/2024 10:39 AM EDT) Pathologist [facility] Bilirubin, Total 0.7 0.0 - 1.0 mg/dL [facility] Bilirubin, Direct 0.2 0.0 - 0.5 mg/dL [facility] Aspartate Amino Transferase 126(H) 5 - 37 U/L [facility] Comment:Slight Hemolysis.Int erpret result with caution. Alanine Aminotransferase 165(H) 0 - 40 U/L [facility] Total Protein 8.7(H) 6.5 - 8.0 g/dL [facility] Albumin Level 4.7 3.5 - 5.0 g/dL [facility] Alkaline Phosphatase 178(H) 39 - 117 U/L [facility] 08/17/2024 10:3 9 AM EDT 08/17/2024 10:40 AM EDT us Generic External Data Provider LAB BLOOD ORDERAB LES Final Result [facility] [address] [place] [address] [phone] * XR Chest 2 Views (08/16/2024 11:40 AM EDT) Anatomical Region Laterality Modality Chest Radiographic Elinor ging 08/16/2024 11:4 0 AM EDT Narrative 08/17/2024 8:11 AM EDT ? [facility] ?[address] ?[place] [address] ?XRay Report ? Signed ? Patient: Joshua Torres ?MR# ?? : [id number] ? : 1960 ?Acct:[id number] ? Age/Sex: 63 / M ?ADM Date: 08/16/24 ? Loc: HO.XRAY ? Attending Dr: Jose Guy MD ? Ordering Physician: Jose Guy MD ?? Date of Service: 08/16/24 ?? Procedure(s): XR chest 2V ?? Accession Number(s): [id number] ? cc: Macie Link DO; Jose Guy MD ? EXAMINATION: ??XR CHEST 2 VIEWS ? HISTORY: I48.92 - Unspecified atrial flutter ? COMPARISON: Comparison is made with the prior examination dated ?? 12/23/2022. ? FINDINGS: ??PA and lateral views of the chest are submitted. There is ?? linear scarring in the lingula. The lungs are otherwise clear. ??There ?? is no pleural effusion, pneumothorax, or pulmonary vascular congestion. ?? The heart is normal in size. ??There is degenerative disc disease of ?? the spine. There are surgical clips at the GE junction. ? XR/XR chest 2V ?? IMPRESSION: ?? No acute cardiopulmonary abnormality. ? Electronically signed by: ??Eusebio Johnson MD ??08/17/2024 08:08 AM EDT ? Dictated By: ?Eusebio Johnson MD ? Signed By: ?<Electronically signed by Eusebio Johnson MD in OV> ?08/17/24 0808 ? DD/ 1140 ? TD/TT: 08/16/24 1203 ? Marketing Planning Manager: ? Procedure Note Donotuseinterpreter, Image - 08/17/[address] [address] XRay Report Signed Patient: Joshua TorresMR# : [id number] : 1960Acct:[id number] Age/Sex: 63 / MADM Date: 08/16/24 Loc: RUDY Attending Dr: Jose Guy MD Ordering Physician: Jose Guy MD Date of Service: 08/16/24 Procedure(s): XR chest 2V Accession Number(s): [id number] cc: Macie Link DO; Jose Guy MD EXAMINATION: XR CHEST 2 VIEWS HISTORY: I48.92 - Unspecified atrial flutter COMPARISON: Comparison is made with the prior examination dated 12/23/2022. FINDINGS: PA and lateral views of the chest are submitted. There is linear scarring in the lingula. The lungs are otherwise clear. There is no pleural effusion, pneumothorax, or pulmonary vascular congestion. The heart is normal in size. There is degenerative disc disease of the spine. There are surgical clips at the GE junction. XR/XR chest 2V IMPRESSION: No acute cardiopulmonary abnormality. Electronically signed by: Eusebio Johnson MD 08/17/2024 08:08 AM EDT Dictated By: Eusebio Johnson MD Signed By: <Electronically signed by Eusebio Johnson MD in OV> 08/17/24 0808 DD/ 1140 TD/TT: 08/16/24 1203 Marketing Planning Manager: [facility] External Provider IMG XR PROCEDURES Final Result * (ABNORMAL) POCT WOODY-14 Urine Drug Screen (06/19/2024 9:21 AM EST) Benzodiazepines Screen, Urine Negative Oxycodone Screen, Urine Positive Urine Urine specimen obtained by clean catch procedure / Unknown 06/19/2024 9:21 AM EST April Walton RN - 06/19/2024 9:21 AM EST UTOX cup Lot#[id number] Exp. 02/21/26 Internal Pass Control Macie Link DO POINT OF CARE TEST ENTER/EVENS T ORDERABLES Final Result * Drug Monitoring, Benzodiazepines, Quantitative, Urine (06/19/2024 9:00 AM EST) Nordiazepam, GCMS Urine NEGATIVE [facility] Oxazepam, GCMS Urine NEGATIVE [facility] Lorazepam GCMS Urine NEGATIVE [facility] Alprazolam, GCMS Urine NEGATIVE [facility] Alphahydroxytriazolam, GCMS Ur NEGATIVE [facility] Temazepam, GCMS Urine NEGATIVE [facility] Alphahydroxymidazolam, GCMS Ur NEGATIVE [facility] Aminoclonazepam, GCMS Urine 784 (H) [facility] Comment:REFERENCE RANGE: <25 ng/mL Flurazepam Metabolite,GCMS Ur NEGATIVE [facility] Benzodiazepines Comments SEE NOTE [facility] Comment:This drug testing is for medical treatment only.Analysis was performed as non-forensic testing andthese results should be used only by healthcareproviders to render diagnosis or treatment, or tomonitor progress of medical conditions.Benzodiazepines Notes:Aminoclonazepam detected is consistent with the use ofthe drug Clonazepam.LDT Notes:Confirmation tests were developed and their analyticalperformance characteristics have been determined by[facility]. It has not been cleared or approvedby the FDA. This assay has been validated pursuant tothe CLIA regulations and is used for clinical purposes.Healthcare Providers needing Interpretation assistance,please contact us at [phone] ( )M- F, 8am to 10pm ESTTHIS TEST PERFORMED AT:[facility] [place] [place] [phone] DIRECTOR: DI SPARKS MD 06/19/2024 9:00 AM EST 06/19/2024 4:11 PM EST Macie Link DO LAB URINE ORDERABLES Final R esult [facility] [address] [place] [address] [phone] * (ABNORMAL) Lipid Panel, Standard (11/03/2023 10:32 AM EDT) Triglycerides 188(H) <150 mg/dL [facility] Comment:Desirable Triglyceri de: less than 150 mg/dLBorderline High Triglyceride 150-199 mg/dLHigh Triglyceride: 200-499 mg/dLVery High Triglyceride: greater than or equal to 5OO mg/dL Cholesterol 112 <200 mg/dL [facility] Comment:Desirable Cholestero l: less than 200 mg/dLBorderline High Cholesterol: 200-239 mg/dLHigh Cholesterol: greater than 239 mg/dL LDL Cholesterol Calculated 43 <100 mg/dL [facility] Comment:Desirable LDL: less than 100 mg/dLNear Optimal/Above Optimal LDL: 110- 129 mg/dLBorderline High LDL: 130-159 mg/dLHigh LDL: 160-189 mg/dLVery High LDL: greater than or equal to 190 mg/dL HDL Cholesterol 32(L) >40 mg/dL [facility] Comment:Desirable HDL: great er than 40 mg/dL Note: This HDL assay may give artificially low results in patients with liver disease. 11/03/2023 10:3 2 AM EDT 11/03/2023 11:21 AM EDT us Macie Allenalfonso DO LAB BLOOD ORDERABLES Final R esult [facility] [address] [place] [address] [phone] * Hm Colonoscopy (02/23/2022 7:37 AM [...] a test for HCV RNA (test code 32607) is suggested. ?? For additional information please refer to http://education.Cerecor/faq/WBO22w7 (This link is being provided for informational/ educational purposes only.) ?? 12/09/2020 10:3 6 AM EDT Macie Link HISTORICAL/NON ORDERABLE LAB S Final Result [facility] [address] * HIV 1/2 ANTIGEN/ANTIBODY,FOURTH GENERATION W/RFL (12/09/2020 10:36 AM EDT) HIV-1/2 ANTIGEN AND ANTIBODIES, 4TH GENERATION W/ REFLEX NON-[facility]ACT [facility] Comment: HIV-1 antigen and HIV-1/HIV-2 [...] ? For additional information please refer to http://education.Cerecor/faq/PJS322 (This link is being provided for informational/ educational purposes only.) ? The performance of this assay has not been clinically validated in patients less than 2 years old. ?? 12/09/2020 10:3 6 AM EDT us Macie Link DO LAB BLOOD ORDERABLES Final R esult [facility] [address] from Last 3 Months or Most Recently Relevant to Health Maintenance Insurance MEDICARE [facility] RE[facility] STAND AD[place] Care Teams Power Saw Operator Relationship Specialty Start Date End Date Macie Link DO [address] [place] [address] PCP - General Family Medicine 05/30/18 Flor Clark PharmD [address] [place] [address] Pharmacist Internal Medicine 08/18/23
--- OUTSIDE RECORDS SUMMARY | 2024-09-14 11:53 | XMS_ITS | Encounter Summary ---
Author Organization [employer] Address 75 [facility] 7t [place] [address] Care Team Providers Care Law Writer Name Role Phone Macie Link DO Primary Care Provider [phone] Flor Clark PharmD Unavailable [phone] Reason for Visit * Reason Comments Med Refill Encounter Details Date Type Department Care Team ([facility] st Contact Info) Description 03/05/2024 Refill [facility] MEDICINE [address] [place] [address] Macie Link DO 230 [place] [address] Seasonal allergic rhinitis, unspecified trigger Social History [...] Description 09/26/2024 2:00 PM EDT Office Visit [facility] ADULT DENTAL [address] [place] [address] Justin Anne, DMD [address] [place] [address] 10/11/2024 9:00 AM EDT Medication Management [facility] MEDICINE [address] [place] [address] Flor Clark, DerikD [address] [place] [address] 11/13/2024 11:30 AM EDT Clinical Support [facility] MEDICINE [address] [place] [address] April Murrell, PADILLA 11/14/2024 2:00 PM EDT Office Visit [facility] ADULT DENTAL [address] [place] [address] Eleni Shin [address] [place] [address] documented as of this encounter Goals Goal [...] documented as of this encounter Care Teams Law Writer Relationship Specialty Start Date End Date Macie Link DO 230 [place] [address] PCP - General Family Medicine 05/30/18 Flor Clark PharmD [address] [place] [address] Pharmacist Internal Medicine 08/18/23 documented as of this encounter
--- OUTSIDE RECORDS SUMMARY | 2024-09-14 11:53 | XMS_ITS | Encounter Summary ---
Author Organization [facility], Address [address] [place] [address] Phone Care Team Providers Care Planning Coordinator Name Role Phone Macie Link DO Primary Care Provider Unava ilable Reason for Visit * Reason Comments Med Refill Encounter Details Date Type Department Care Team (Late st Contact Info) Description 09/08/2022 Refill [facility], [address] [place] [address] Romario Ford MD [address] [facility] [place] [phone] Social History Tobacco Use Types Packs/Day Years [...] on filedocumented in this encounter Care Teams Planning Coordinator Relationship Specialty Start Date End Date Macie Link DO PCP - General 04/03/19 documented as of this encounter
--- OUTSIDE RECORDS SUMMARY | 2024-09-14 11:53 | XMS_ITS | Encounter Summary ---
Author Organization [facility], Address [address] [place] [address] Phone Care Team Providers Care Field Talent Qualification Specialist Name Role Phone Macie Link DO Primary Care Provider Unava ilable Reason for Visit * Reason Comments Med Refill Encounter Details Date Type Department Care Team (Late st Contact Info) Description 07/23/2022 Refill [facility], [address] [place] [address] Romario Ford MD [address] [facility] [place] [phone] Social History Tobacco Use Types Packs/Day Years [...] on filedocumented in this encounter Care Teams Field Talent Qualification Specialist Relationship Specialty Start Date End Date Macie Link DO PCP - General 04/03/19 documented as of this encounter
--- OUTSIDE RECORDS SUMMARY | 2024-09-14 11:53 | XMS_ITS | Encounter Summary ---
Author Organization [employer] Address 75 [facility] 7t [place] [address] Care Team Providers Care Shell Maker Lockstitch Name Role Phone Macie Link DO Primary Care Provider [phone] Flor Clark PharmD Unavailable [phone] Reason for Visit * Reason Comments Med Refill Encounter Details Date Type Department Care Team ([facility] st Contact Info) Description 08/20/2024 Refill [facility] MEDICINE [address] [place] [address] Macie Link DO 230 [place], [place] [phone] Chronic neck pain; Anxiety Social History Tobacco [...] Description 09/26/2024 2:00 PM EDT Office Visit [facility] ADULT DENTAL [address] [place] [address] Justin Anne, DMD [address] [place] [address] 10/11/2024 9:00 AM EDT Medication Management [facility] MEDICINE [address] [place] [address] Flor Clark, DerikD [address] [place] [address] 11/13/2024 11:30 AM EDT Clinical Support [facility] MEDICINE [address] [place] [address] April Murrell, PADILLA 11/14/2024 2:00 PM EDT Office Visit [facility] ADULT DENTAL [address] [place] [address] Eleni Shin [address] [place] [address] documented as of this encounter Goals Goal Patient Goal Type Associated Problems Recent Progress Patient-Stated? Author Hemoglobin A1c < 7 Result Component 6.4( 10:10 AM EDT) No Puia, Flor, PharmD Note: A1c value [...] documented as of this encounter Care Teams Shell Maker Lockstitch Relationship Specialty Start Date End Date Macie Link DO [address] [place] [address] PCP - General Family Medicine 05/30/18 Flor Clark PharmD [address] [place] [address] Pharmacist Internal Medicine 08/18/23 documented as of this encounter
--- OUTSIDE RECORDS SUMMARY | 2024-09-14 11:53 | XMS_ITS | Encounter Summary ---
Author Organization [employer] Address 75 [facility] 7t [place] [address] Care Team Providers Care Snowmobile Mechanic Name Role Phone Macie Link DO Primary Care Provider [phone] Flor Clark PharmD Unavailable [phone] Reason for Visit * Reason Comments Med Refill Encounter Details Date Type Department Care Team ([facility] st Contact Info) Description 05/04/2024 Refill [facility] MEDICINE [address] [place] [address] Macie Link DO 230 [place] [address] Hypothyroidism, unspecified type; Chronic GERD Social History [...] Description 09/26/2024 2:00 PM EDT Office Visit [facility] ADULT DENTAL [address] [place] [address] Justin Anne, DMD [address] [place] [address] 10/11/2024 9:00 AM EDT Medication Management [facility] MEDICINE [address] [place] [address] Flor Clark, PharmD [address] [place] [address] 11/13/2024 11:30 AM EDT Clinical Support [facility] MEDICINE [address] [place] [address] April Murrell, PADILLA 11/14/2024 2:00 PM EDT Office Visit [facility] ADULT DENTAL [address] [place] [address] Eleni Shin [address] [place] [address] documented as of this encounter Goals Goal [...] documented as of this encounter Care Teams Snowmobile Mechanic Relationship Specialty Start Date End Date Macie Link DO 230 [place] [address] PCP - General Family Medicine 05/30/18 Flor Clark PharmD [address] [place] [address] Pharmacist Internal Medicine 08/18/23 documented as of this encounter
--- OUTSIDE RECORDS SUMMARY | 2024-09-14 11:53 | XMS_ITS | Encounter Summary ---
Author Organization [employer] [facility] Address 75 [facility] 7t [place] [address] Care Team Providers Care Stripping Cutter And Winder Name Role Phone Macie Link DO Primary Care Provider [phone] Flor Clark PharmD Unavailable [phone] Reason for Visit * Reason Comments Med Refill Encounter Details Date Type Department Care Team ([facility] st Contact Info) Description 10/14/2022 Refill [facility] MEDICINE [address] [place] [address] Macie Link DO 230 [place] [address] Anxiety Social History Tobacco Use Types Packs/Day [...] Description 09/26/2024 2:00 PM EDT Office Visit [facility] ADULT DENTAL [address] [place] [address] Justin Anne, DMD [address] [place] [address] 10/11/2024 9:00 AM EDT Medication Management [address] [address] Flor Clark PharmD 230 [place] [address] 11/13/2024 11:30 AM EDT Clinical Support [address] [phone] April Murrell, PADILLA 11/14/2024 2:00 PM EDT Office Visit [facility] ADULT DENTAL [address] [place] [address] Eleni Shin [address] [place] [address] documented as of this encounter Visit Diagnoses Diagnosis Anxiety Anxiety state, unspecified documented in this encounter Additional Health Concerns Assessment Noted Time PHQ-9 Depression Total Score: 2 07/06/19 23 9:23 AM EST documented as of this encounter Care Teams Stripping Cutter And Winder Relationship Specialty Start Date End Date Macie Link DO [address] [place] [address] PCP - General Family Medicine 05/30/18 Flor Clark PharmD [address] [place] [address] [phone] Pharmacist Internal Medicine 08/18/23 documented as of this encounter
--- OUTSIDE RECORDS SUMMARY | 2024-09-14 11:53 | XMS_ITS | Encounter Summary ---
Author Organization [employer] Address 75 [facility] 7t [place] [address] Care Team Providers Care Heavy Equipment Operator/Paver Name Role Phone Fariba Macie LICEA Primary Care Provider Flor Clark PharmD Unavailable Encounter Details Date Type Department Care Team (Late st Contact Info) Description 05/25/2022 Orders Only [facility] MED & PEDS [address] [place] [address] Macie Stiles LPN Social History Tobacco Use [...] Department Care Team (Late Contact Info) Description 09/26/2024 2:00 PM EDT Office Visit [facility] ADULT DENTAL [address] [place] [address] Justin Anne, DMD 230 [place] [address] 10/11/2024 9:00 AM EDT Medication Management [facility] MEDICINE [address] [place] [address] PuiaFlor, PharmD 230 [place] [address] 11/13/2024 11:30 AM EDT Clinical Support [facility] MEDICINE [address] [place] [address] April Murrell RN 11/14/2024 2:00 PM EDT Office Visit [facility] ADULT DENTAL [address] [place] [address] Eleni Shin [address] [place] [address] documented as of this encounter Visit Diagnoses Not on filedocumented in this encounter Care Teams Heavy Equipment Operator/Paver Relationship Specialty Start Date End Date Macie Link DO 230 [place] [address] PCP - General Family Medicine 05/30/18 Flor Clark PharmD [address] [place] [address] Pharmacist Internal Medicine 08/18/23 documented as of this encounter
--- OUTSIDE RECORDS SUMMARY | 2024-09-14 11:53 | XMS_ITS | Encounter Summary ---
Author Organization [employer] Address [address] [facility] [address] 7t [place] [address] Care Team Providers Care Fast Food Manager Name Role Phone Macie Link DO Primary Care Provider Flor Clark PharmD Unavailable [phone] Reason for Visit * Reason Onset Date Comments telephone call 09/11/2024 Encounter Details Date Type Department Care Team ([facility] st Contact Info) Description 09/11/2024 Telephone [facility] MEDICINE [address] [place] [address] Macie Link DO 230 [place] [address] telephone call Social History Tobacco Use Types [...] encounter Miscellaneous Notes * Telephone Encounter - She Su - 09/13/2024 2:35 PM EDT Pt walked in again requesting a update. * Telephone Encounter - She Su - 09/12/2024 2:04 PM EDT Pt walked In requesting a update on this. * Telephone Encounter - Mcaie Link DO - 09/11/2024 2:36 PM EDT Please initiate rx for shower chair and raised toilet seat. Please check status of Boost supplementation. Thank you! documented in this encounter Plan of Treatment Upcoming Encounters Date Type Department Care Team (Late st Contact Info) Description 09/26/2024 2:00 PM EDT Office Visit [facility] ADULT DENTAL [address] [place] [address] Justin Anne, DMD [address] [place] [address] 10/11/2024 9:00 AM EDT Medication Management [facility] MEDICINE [address] [place] [address] Flor Clark PharmD [address] [place] [address] 11/13/2024 11:30 AM EDT Clinical Support [facility] MEDICINE [address] [place] [address] April Murrell RN 11/14/2024 2:00 PM EDT Office Visit [facility] ADULT DENTAL [address] [place] [address] Eleni Shin [address] [place] [address] documented as of this encounter Goals Goal [...] documented as of this encounter Care Teams Fast Food Manager Relationship Specialty Start Date End Date Macie Link DO [address] [place] [address] PCP - General Family Medicine 05/30/18 Flor Clark, DerikD [address] [place] [address] Pharmacist Internal Medicine 08/18/23 documented as of this encounter
--- OUTSIDE RECORDS SUMMARY | 2024-09-14 11:53 | XMS_ITS | Encounter Summary ---
Author Organization [employer] Address [address] [facility] [address] 7t [place] [address] Care Team Providers Care Rn Triage Name Role Phone Macie Link DO Primary Care Provider Flor Clark PharmD Unavailable Encounter Details Date Type Department Care Team (Late st Contact Info) Description 09/11/2024 9:45 AM EDT Office Visit [facility] MEDICINE [address] [place], [place] [phone] Macie Link DO 230 [place] [address] Type 2 diabetes mellitus with chronic kidney disease on chronic dialysis, with long-term current use of insulin ([facility]) Social History Tobacco Use Types Packs/Day Years [...] Mass Index 32.12 09/11/2024 10:07 AM EDT documented in this encounter Plan of Treatment Upcoming Encounters Date Type Department Care Team (Late st Contact Info) Description 09/26/2024 2:00 PM EDT Office Visit [facility] ADULT DENTAL [address] [place] [address] Justin Anne, SHAY [address] [place] [address] 10/11/2024 9:00 AM EDT Medication Management [facility] MEDICINE [address] [place] [address] Flor Clark, PharmD [address] [place] [address] 11/13/2024 11:30 AM EDT Clinical Support [facility] MEDICINE [address] [place] [address] April Murrell RN 11/14/2024 2:00 PM EDT Office Visit [facility] ADULT DENTAL [address] [place] [address] Fitz Shinaris [address] [place] [address] Scheduled Orders Name Type Priority Associated Diagnoses Orde r Schedule T4, Free Lab Routine Type 2 diabetes mellitus with chronic kidney disease on chronic dialysis, with long-term current use of insulin (CMS/HCC) Expected: 09/14/2024 (Approximate), Expires: 09/14/2025 Vitamin D, 25-Hydroxy, Total, Immunoassay Lab Routine Type 2 diabetes mellitus with chronic kidney disease on chronic dialysis, with long-term current use of insulin (CMS/HCC) Expected: 09/14/2024 (Approximate), Expires: 09/14/2025 Lipid Panel, Standard Lab Routine Type 2 diabetes mellitus with chronic kidney disease on chronic dialysis, with long-term current use of insulin (CMS/HCC) Expected: 09/14/2024 (Approximate), Expires: 09/14/2025 TSH Lab Routine Type 2 diabetes mellitus with chronic kidney disease on chronic dialysis, with long-term current use of insulin (CMS/HCC) Expected: 09/14/2024 (Approximate), Expires: 09/14/2025 Hepatic Function Panel Lab Routine Type 2 diabetes mellitus with chronic kidney disease on chronic dialysis, with long-term current use of insulin (CMS/HCC) Expected: 09/14/2024 (Approximate), Expires: 09/14/2025 Hemoglobin A1c Lab Routine Type 2 diabetes mellitus with chronic kidney disease on chronic dialysis, with long-term current use of insulin (CMS/HCC) Expected: 09/14/2024 (Approximate), Expires: 09/14/2025 Basic Metabolic Panel Lab Routine Type 2 diabetes mellitus with chronic kidney disease on chronic dialysis, with long-term current use of insulin ([facility]) Expected: 09/14/2024 (Approximate), Expires: 09/14/2025 CBC Lab Routine Type 2 diabetes mellitus with chronic kidney disease on chronic dialysis, with long-term current use of insulin (CMS/HCC) Expected: 09/14/2024, Expires: 09/14/2025 Alpha-Fetoprotein, Tumor Marker Lab Routine Type 2 diabetes mellitus with chronic kidney disease on chronic dialysis, with long-term current use of insulin ([facility]) Expected: 09/14/2024 (Approximate), Expires: 09/14/2025 documented as of this encounter Goals Goal [...] dialysis, with long-term current use of insulin ([facility]) POCT GLUCOSE Routine 09/11/2024 10:10 AM EDT Type 2 diabetes mellitus with chronic kidney disease on chronic dialysis, with long-term current use of insulin ([facility]) documented in this encounter Results * (ABNORMAL) POCT HGB A1C (09/11/2024 10:10 AM EDT) Hemoglobin A1C 6.4(A) 4.0 - 6.0 % QC Media Lot # [id number] Lot# Expiration Date Blood 09/11/2024 10:1 0 AM EDT Macie Link DO POINT OF CARE TEST ENTER/EVENS T ORDERABLES Final Result * POCT Glucose (09/11/2024 10:10 AM EDT) Glucose Blood, POC 135 60 - 200 mg/dL QC Media Lot # [id number] Lot# Expiration Date Blood Capillary blood specimen / Unknown 09/11/2024 10:10 AM EDT Result [facility] Macie Link DO POINT OF CARE TEST ENTER/EVENS T ORDERABLES Final Result documented in this encounter Visit Diagnoses Diagnosis Type 2 diabetes mellitus with chronic kidney disease on chronic dialysis, with long-term current use of insulin ([facility]) documented in this encounter Additional Health Concerns Assessment Noted Time PHQ-9 Depression Total Score: 9 09/12/19 25 11:18 AM EDT documented as of this encounter Care Teams Rn Triage Relationship Specialty Start Date End Date Macie Link DO [address] [place] [address] PCP - General Family Medicine 05/30/18 Flor Clark PharmD [address] [place] [address] Pharmacist Internal Medicine 08/18/23 documented as of this encounter
--- OUTSIDE RECORDS SUMMARY | 2024-09-14 11:53 | XMS_ITS | Encounter Summary ---
Author Organization [facility] Address [address] [place] [address] Care Team Providers Care Town Clerk Name Role Phone Patient, Has No Pcp Or Ref Primary Care Provider Unavailable Encounter Details Date Type Department Care Team (Late st Contact Info) Description 06/27/2024 Orders Only [facility] Interventional Radiology [address] [place] [address] Amanda Sweet MD [address] [place] [address] Social History Tobacco Use Types Packs/Day Years [...] Info) Description 09/24/2024 8:30 AM EDT Follow-Up [facility] 5th Floor [address] [place] [address] Pierce Au MD [address] [place] [address] 03/19/2025 9:00 AM EDT Follow-Up [facility] Renal Transplant [address] [place] [address] Louie Pablo MD [address] [place] [address] 03/19/2025 9:30 AM EDT Social Work [facility] Renal Transplant [address] [place] [address] Imani Livingston LICSW [address] [place], [place] [phone] documented as of this encounter Visit Diagnoses Not on filedocumented in this encounter Care Teams Town Clerk Relationship Specialty Start Date End Date Patient, Has No Pcp Or Ref DO NOT EDIT THIS RECORD VIA PROVIDER ON THE FLY PCP - General Insurance Legal Assistant 03/15/24 documented as of this encounter
--- OUTSIDE RECORDS SUMMARY | 2024-09-14 11:53 | XMS_ITS | Encounter Summary ---
Author Organization [employer] Address 75 [facility] 7t [place] [address] Care Team Providers Care Light Cleaner Name Role Phone Macie Link DO Primary Care Provider [phone] Flor Clark PharmD Unavailable [phone] Reason for Visit * Reason Comments Med Refill Encounter Details Date Type Department Care Team ([facility] st Contact Info) Description 03/30/2024 Refill [facility] MEDICINE [address] [place] [address] Macie Link DO [address] [place] [address] Seasonal allergic rhinitis, unspecified trigger Social History [...] Description 09/26/2024 2:00 PM EDT Office Visit [facility] ADULT DENTAL [address] [place] [address] Justin Anne, DMD [address] [place] [address] 10/11/2024 9:00 AM EDT Medication Management [facility] MEDICINE [address] [place] [address] Flor Clark, DerikD [address] [place] [address] 11/13/2024 11:30 AM EDT Clinical Support [facility] MEDICINE [address] [place] [address] April Murrell, PADILLA 11/14/2024 2:00 PM EDT Office Visit [facility] ADULT DENTAL [address] [place] [address] Eleni Shin [address] [place] [address] documented as of this encounter Goals Goal [...] documented as of this encounter Care Teams Light Cleaner Relationship Specialty Start Date End Date Macie Link DO [address] [place] [address] PCP - General Family Medicine 05/30/18 Flor Clark PharmD [address] [place] [address] Pharmacist Internal Medicine 08/18/23 documented as of this encounter
--- OUTSIDE RECORDS SUMMARY | 2024-09-14 11:53 | XMS_ITS | Encounter Summary ---
Author Organization [employer] Address [address] [facility] [address] 7t [place] [address] Care Team Providers Care Wood Pole Treater Name Role Phone FaribaMacie Primary Care Provider [phone] Flor Clark PharmD Unavailable [phone] Encounter Details Date Type Department Care Team (Latest Contact Info) Description 09/11/2024 Travel Social History Tobacco Use Types Packs/Day [...] 09/26/2024 2:00 PM EDT Office Visit [facility] ADULT DENTAL [address] [place] [address] Justin Anne, SHAY [address] [place] [address] 10/11/2024 9:00 AM EDT Medication Management [facility] MEDICINE [address] [place] [address] Flor Clark, PharmD [address] [place] [address] 11/13/2024 11:30 AM EDT Clinical Support [address] [address] April Murrell RN 11/14/2024 2:00 PM EDT Office Visit [facility] ADULT DENTAL [address] [place] [address] Eleni Shin [address] [place] [address] documented as of this encounter Goals Goal [...] documented as of this encounter Care Teams Wood Pole Treater Relationship Specialty Start Date End Date Macie Link DO [address] [place] [address] PCP - General Family Medicine 05/30/18 Flor Clark PharmD [address] [place] [address] Pharmacist Internal Medicine 08/18/23 documented as of this encounter
--- OUTSIDE RECORDS SUMMARY | 2024-09-14 11:53 | XMS_ITS | Encounter Summary ---
Author Organization [employer] [facility] Address [address] [facility] 7t [place] [address] Care Team Providers Care Product Support Analyst Name Role Phone Macie Link DO Primary Care Provider [phone] Flor Clark PharmD Unavailable Encounter Details Date Type Department Care Team (Late st Contact Info) Description 06/10/2022 Telephone [facility] MEDICINE [address] [place] [address] Macie Link DO [address] [place] [address] Social History Tobacco Use Types Packs/Day Years [...] Description 09/26/2024 2:00 PM EDT Office Visit [facility] ADULT DENTAL [address] [place] [address] Justin Anne DMD [address] [place] [address] 10/11/2024 9:00 AM EDT Medication Management [facility] MEDICINE [address] [place] [address] PuiaFlor, PharmD [address] [place] [address] 11/13/2024 11:30 AM EDT Clinical Support [facility] MEDICINE [address] [place] [address] April Murrell, RN 11/14/2024 2:00 PM EDT Office Visit [facility] ADULT DENTAL [address] [place], [place] [phone] Eleni Shin [address] [place] [address] documented as of this encounter Visit Diagnoses Not on filedocumented in this encounter Care Teams Product Support Analyst Relationship Specialty Start Date End Date Macie Link DO [address] [place] [address] PCP - General Family Medicine 05/30/18 Flor Clark PharmD [address] [place] [address] Pharmacist Internal Medicine 08/18/23 documented as of this encounter
--- OUTSIDE RECORDS SUMMARY | 2024-09-14 11:53 | XMS_ITS ---
Author Organization [facility] Address [address] [place] [address] Care Team Providers Care Web Mobile Designer Name Role Phone Patient, Has No Pcp [...] TotalDLP 1,501 mGy 1,501 mGy 0 mGy [id number] 21.5 mSv 21.5 mSv 0 mSv CTDIvol Max 18.2 mGy 18.2 mGy 0 mGy CTDIvol Min 14.8 mGy 14.8 mGy 0 mGy
--- OUTSIDE RECORDS SUMMARY | 2024-09-14 11:53 | XMS_ITS | Encounter Summary ---
Author Organization [employer] Address [address] [facility] 7t [place] [address] Care Team Providers Care Director Home Name Role Phone Macie Link DO Primary Care Provider Flor Clark PharmD Unavailable Reason for Visit * Reason Onset Date Comments Durable Medical Equipment 05/10/2022 Encounter Details Date Type Department Care Team (Late st Contact Info) Description 05/10/2022 Telephone [facility] MEDICINE [address] [place] [address] Macie Link DO [address] [place] [address] Durable Medical Equipment Social History Tobacco Use [...] 1:45 PM EST Tc from jesus from [facility] care requesting status on Glucerna . States pt has tried reaching L&C and no response . Also caller is requesting a adjustable position bed. Best contact # [phone] documented in this encounter Plan of Treatment Upcoming Encounters Date Type Department Care Team (Late st Contact Info) Description 09/26/2024 2:00 PM EDT Office Visit [facility] ADULT DENTAL [address] [place] [address] Justin Anne, SHAY [address] [place] [address] 10/11/2024 9:00 AM EDT Medication Management [facility] MEDICINE [address] [place] [address] Flor Clark PharmD [address] [place] [address] 11/13/2024 11:30 AM EDT Clinical Support [facility] [address] [place] [address] April Murrell RN 11/14/2024 2:00 PM EDT Office Visit [facility] ADULT DENTAL [address] [place] [address] Eleni Shin [address] [place] [address] documented as of this encounter Visit Diagnoses Not on filedocumented in this encounter Care Teams Director Home Relationship Specialty Start Date End Date Macie Link DO [address] [place] [address] PCP - General Family Medicine 05/30/18 Flor Clark, PharmD [address] [place] [address] Pharmacist Internal Medicine 08/18/23 documented as of this encounter
--- OUTSIDE RECORDS SUMMARY | 2024-09-14 11:53 | XMS_ITS | Encounter Summary ---
Author Organization [employer] Address [address] [facility] [address] 7t [place] [address] Care Team Providers Care Field Training Manager Name Role Phone iTffanyMacie hamilton Primary Care Provider Flor Clark PharmD Unavailable [phone] Encounter Details Date Type Department Care Team (Late st Contact Info) Description 07/30/2022 Orders Only [facility] MEDICINE [address] [place] [address] Cassie Jeronimo MD [address] [place] [address] Chronic neck pain (Primary Dx) Social History [...] Description 09/26/2024 2:00 PM EDT Office Visit [facility] ADULT DENTAL [address] [place] [address] Justin Anne, DMD [address] [place] [address] 10/11/2024 9:00 AM EDT Medication Management [facility] MEDICINE [address] [place] [address] Flor Clark PharmD [address] [place] [address] 11/13/2024 11:30 AM EDT Clinical Support [address] [address] April Murrell, PADILLA 11/14/2024 2:00 PM EDT Office Visit [facility] ADULT DENTAL [address] [place] [address] Eleni Shin [address] [place] [address] documented as of this encounter Visit Diagnoses Diagnosis Chronic neck pain- Primary Cervicalgia documented in this encounter Additional Health Concerns Assessment Noted Time PHQ-9 Depression Total Score: 2 07/06/19 23 9:23 AM EST documented as of this encounter Care Teams Field Training Manager Relationship Specialty Start Date End Date Macie Link DO [address] [place] [address] PCP - General Family Medicine 05/30/18 Flor Clark PharmD [address] [place] [address] Pharmacist Internal Medicine 08/18/23 documented as of this encounter
--- OUTSIDE RECORDS SUMMARY | 2024-09-14 11:53 | XMS_ITS | Encounter Summary ---
Author Organization [employer] Address [address] [facility] 7t [place] [address] Care Team Providers Care Exchange Teller Name Role Phone Fariba Macie Primary Care Provider Flor Clark PharmD Unavailable Encounter Details Date Type Department Care Team (Late st Contact Info) Description 08/13/2022 Orders Only [facility] MED & PEDS [address] [place], [place] [phone] Cayla Sandoval MD [address] [place] [address] Type 2 diabetes mellitus with chronic kidney disease on chronic dialysis, with long-term current use of insulin ([facility]) (Primary Dx) Social History Tobacco Use [...] 09/26/2024 2:00 PM EDT Office Visit [facility] ADULT DENTAL [address] [place] [address] Justin Anne, DMD [address] [place] [address] 10/11/2024 9:00 AM EDT Medication Management [facility] MEDICINE [address] [place] [address] Flor Clark PharmD [address] [place] [address] 11/13/2024 11:30 AM EDT Clinical Support [address] [address] April Murrell RN 11/14/2024 2:00 PM EDT Office Visit [facility] ADULT DENTAL [address] [place] [address] Eleni Shin [address] [place] [address] documented as of this encounter Visit Diagnoses Diagnosis Type 2 diabetes mellitus with chronic kidney disease on chronic dialysis, with long-term current use of insulin ([facility])- Primary documented in this encounter Additional Health Concerns Assessment Noted Time PHQ-9 Depression Total Score: 2 07/06/19 23 9:23 AM EST documented as of this encounter Care Teams Exchange Teller Relationship Specialty Start Date End Date Macie Link DO [address] [place] [address] [phone] PCP - General Family Medicine 05/30/18 Flor Clark PharmD [address] [place] [address] [phone] Pharmacist Internal Medicine 08/18/23 documented as of this encounter
--- OUTSIDE RECORDS SUMMARY | 2024-09-14 11:53 | XMS_ITS | Encounter Summary ---
Author Organization [facility], Address [address] [place] [address] Phone Care Team Providers Care Building Attendant Name Role Phone Macie Link DO Primary Care Provider Unava ilable Reason for Visit * Reason Comments Med Refill Encounter Details Date Type Department Care Team (Late st Contact Info) Description 07/15/2022 Refill [facility], [address] [place] [address] Romario Ford MD [address] [facility] [place] [phone] Social History Tobacco Use Types Packs/Day Years [...] on filedocumented in this encounter Care Teams Building Attendant Relationship Specialty Start Date End Date Macie Link DO PCP - General 04/03/19 documented as of this encounter
--- OUTSIDE RECORDS SUMMARY | 2024-09-14 11:53 | XMS_ITS | Encounter Summary ---
Author Organization [employer] [facility] Address 75 [facility] 7t [place] [address] Care Team Providers Care Telecasting Technician Name Role Phone Macie Link DO Primary Care Provider Flor Clark PharmD Unavailable Encounter Details Date Type Department Care Team (Late st Contact Info) Description 07/21/2022 Telephone [facility] MEDICINE [address] [place] [address] Macie Link DO [address] [place] [address] Social History Tobacco Use Types Packs/Day Years [...] [facility] [address] [place], [place] [phone] Justin Anne, DMD [address] [place] [address] 10/11/2024 9:00 AM EDT Medication Management [address] [address] Flor Clark PharmD [address] [place] [address] 11/13/2024 11:30 AM EDT Clinical Support [facility] MEDICINE [address] [place] [address] April Murrell, PADILLA 11/14/2024 2:00 PM EDT Office Visit [facility] ADULT DENTAL [address] [place] [address] Eleni Shin [address] [place] [address] documented as of this encounter Visit Diagnoses Not on filedocumented in this encounter Additional Health Concerns Assessment Noted Time PHQ-9 Depression Total Score: 2 07/06/19 23 9:23 AM EST documented as of this encounter Care Teams Telecasting Technician Relationship Specialty Start Date End Date Macie Link DO [address] [place] [phone] PCP - General Family Medicine 05/30/18 Flor Clark PharmD [address] [place] [address] [phone] Pharmacist Internal Medicine 08/18/23 documented as of this encounter
--- OUTSIDE RECORDS SUMMARY | 2024-09-14 11:53 | XMS_ITS | Encounter Summary ---
Author Organization [facility], Address [address] [place] [address] Phone Care Team Providers Care Syrup Filterer Name Role Phone Macie Link DO Primary Care Provider Unava ilable Encounter Details Date Type Department Care Team (Late st Contact Info) Description 07/19/2022 Documentation Only [facility], [address] [place] [address] [place] [address] [place] [address] Social History Tobacco Use Types [...] on filedocumented in this encounter Care Teams Syrup Filterer Relationship Specialty Start Date End Date Macie Link DO PCP - General 04/03/19 documented as of this encounter
--- OUTSIDE RECORDS SUMMARY | 2024-09-14 11:53 | XMS_ITS | Encounter Summary ---
Author Organization [employer] Address 75 [facility] 7t [place] [address] Care Team Providers Care Chocolate Temperer Name Role Phone Macie Link DO Primary Care Provider Flor Clark PharmD Unavailable [phone] Reason for Visit * Reason Comments Med Refill Encounter Details Date Type Department Care Team (Late st Contact Info) Description 02/06/2024 Refill [facility] MEDICINE [address] [place] [address] Macie Link DO [address] [place] [address] Chronic neck pain; Anxiety Social History Tobacco [...] Description 09/26/2024 2:00 PM EDT Office Visit [facility] ADULT DENTAL [address] [place] [address] Justin Anne, DMD [address] [place] [address] 10/11/2024 9:00 AM EDT Medication Management [facility] MEDICINE [address] [place] [address] Flor Clark, DerikD [address] [place] [address] 11/13/2024 11:30 AM EDT Clinical Support [facility] MEDICINE [address] [place] [address] April Murrell, PADILLA 11/14/2024 2:00 PM EDT Office Visit [facility] ADULT DENTAL [address] [place] [address] Eleni Shin [address] [place] [address] documented as of this encounter Goals Goal [...] as of this encounter Care Teams Chocolate Temperer Relationship Specialty Start Date End Date Macie Link DO [address] [place] [address] PCP - General Family Medicine 05/30/18 Flor Clark PharmD [address] [place] [address] Pharmacist Internal Medicine 08/18/23 documented as of this encounter
--- OUTSIDE RECORDS SUMMARY | 2024-09-14 11:53 | XMS_ITS | Encounter Summary ---
Author Organization [employer] [facility] Address [address] [facility] 7t [place] [address] Care Team Providers Care Medicare Sales Executive Name Role Phone Macie Link DO Primary Care Provider Flor Clark PharmD Unavailable Reason for Visit * Reason Comments Med Refill Encounter Details Date Type Department Care Team (Late st Contact Info) Description 08/13/2022 Refill [facility] MEDICINE [address] [place] [address] Macie Link DO [address] [place] [address] Anxiety Social History Tobacco Use Types Packs/Day [...] Description 09/26/2024 2:00 PM EDT Office Visit [facility] ADULT DENTAL [address] [place] [address] Justin Anne DMD [address] [place], [place] 10/11/2024 9:00 AM EDT Medication Management [facility] MEDICINE [address] [place] [address] Flor Clark PharmD [address] [place] 11/13/2024 11:30 AM EDT Clinical Support [facility] MEDICINE [address] [place] [address] April Murrell, PADILLA 11/14/2024 2:00 PM EDT Office Visit [facility] ADULT DENTAL [address] [place] [address] Eleni Shin [address] [place], [place] documented as of this encounter Visit Diagnoses Diagnosis Anxiety Anxiety state, unspecified documented in this encounter Additional Health Concerns Assessment Noted Time PHQ-9 Depression Total Score: 2 07/06/19 23 9:23 AM EST documented as of this encounter Care Teams Medicare Sales Executive Relationship Specialty Start Date End Date Macie Link DO [address] [place] [address] PCP - General Family Medicine 05/30/18 Flor Clark PharmD [address] [place] [address] [phone] Pharmacist Internal Medicine 08/18/23 documented as of this encounter
--- OUTSIDE RECORDS SUMMARY | 2024-09-14 11:53 | XMS_ITS | Encounter Summary ---
Author Organization [employer] [facility] Address [address] [facility] 7t [place] [address] Care Team Providers Care Access Clinician Name Role Phone Fariba Macie LICEA Primary Care Provider [phone] Flor Clark PharmD Unavailable [phone] Encounter Details Date Type Department Care Team (Late st Contact Info) Description 06/16/2022 Orders Only [facility] MED & PEDS [address] [place] [address] Macie Stiles LPN Social History Tobacco Use [...] Description 09/26/2024 2:00 PM EDT Office Visit [facility] ADULT DENTAL [address] [place] [address] Justin Anne, DMD [address] [place] [address] 10/11/2024 9:00 AM EDT Medication Management [facility] MEDICINE [address] [place] [address] PuiaFlor, PharmD [address] [place] [address] 11/13/2024 11:30 AM EDT Clinical Support [facility] MEDICINE [address] [place] [address] April Murrell RN 11/14/2024 2:00 PM EDT Office Visit [facility] ADULT DENTAL [address] [place] [address] Eleni Shin [address] [place] [address] documented as of this encounter Visit Diagnoses Not on filedocumented in this encounter Care Teams Access Clinician Relationship Specialty Start Date End Date Macie Link DO [address] [place] [address] PCP - General Family Medicine 05/30/18 Flor Clark PharmD [address] [place] [address] Pharmacist Internal Medicine 08/18/23 documented as of this encounter
--- OUTSIDE RECORDS SUMMARY | 2024-09-14 11:53 | XMS_ITS | Encounter Summary ---
Author Organization [employer] Address [address] [facility] [address] 7t [place] [address] Care Team Providers Care Customer Service Representative Teacher Name Role Phone Macie Link DO Primary Care Provider [phone] Flor Clark PharmD Unavailable [phone] Reason for Visit * Reason Onset Date Comments Durable Medical Equipment 09/10/2024 Encounter Details Date Type Department Care Team ([facility] st Contact Info) Description 09/10/2024 Telephone [facility] MEDICINE [address] [place] [address] Macie Link DO [address] [place], [place] [phone] Durable Medical Equipment Social History Tobacco Use [...] encounter Miscellaneous Notes * Telephone Encounter - Lucero Soriano - 09/10/2024 3:16 PM EDT PT walked in requesting a fu on the boost sent to L&C on 09/05/24. Tried calling L&C and no-one answers. documented in this encounter Plan of Treatment Upcoming Encounters Date Type Department Care Team (Late st Contact Info) Description 09/26/2024 2:00 PM EDT Office Visit [facility] ADULT DENTAL [address] [place] [address] Justin Anne, DMD [address] [place] [address] 10/11/2024 9:00 AM EDT Medication Management [facility] MEDICINE [address] [place] [address] Flor Clark, PharmD [address] [place] [address] 11/13/2024 11:30 AM EDT Clinical Support [facility] MEDICINE [address] [place] [address] [phone] April Murrell RN 11/14/2024 2:00 PM EDT Office Visit [facility] ADULT DENTAL [address] [place], [place] [phone] Eleni Shin [address] [place] [address] documented as of this encounter Goals Goal [...] documented as of this encounter Care Teams Customer Service Representative Teacher Relationship Specialty Start Date End Date Macie Link DO [address] [place] [address] PCP - General Family Medicine 05/30/18 Flor Clark PharmD [address] [place], [place] [phone] Pharmacist Internal Medicine 08/18/23 documented as of this encounter
--- OUTSIDE RECORDS SUMMARY | 2024-09-14 11:53 | XMS_ITS | Encounter Summary ---
Author Organization [employer] Address [address] [facility] [address] 7t [place] [address] Care Team Providers Care Letterpress Setter Name Role Phone Macie Link DO Primary Care Provider Flor Clark PharmD Unavailable [phone] Reason for Visit * Reason Onset Date Comments telephone call 09/14/2024 Encounter Details Date Type Department Care Team ([facility] st Contact Info) Description 09/14/2024 Telephone [facility] MEDICINE [address] [place] [address] Macie Link DO [address] [place] [address] telephone call Social History Tobacco Use Types [...] * Telephone Encounter - She Su - 09/14/2024 10:43 AM EDT Pt walked in for the third time this week requesting a update on his shower chair , raised toilet seat and boost supplement. Pt is upset that he comes in everyday and there is no update on this. documented in this encounter Plan of Treatment Upcoming Encounters Date Type Department Care Team (Late st Contact Info) Description 09/26/2024 2:00 PM EDT Office Visit [facility] ADULT DENTAL [address] [place] [address] Justin Anne, DMD [address] [place] [address] 10/11/2024 9:00 AM EDT Medication Management [facility] MEDICINE [address] [place] [address] Flor Clark, DerikD [address] [place] [address] 11/13/2024 11:30 AM EDT Clinical Support [facility] MEDICINE [address] [place] [address] April Murrell RN 11/14/2024 2:00 PM EDT Office Visit [facility] ADULT DENTAL [address] [place] [address] Eleni Shin [address] [place] [address] documented as of this encounter Goals Goal Patient Goal Type Associated Problems Recent Progress Patient-Stated? Author Hemoglobin A1c < 7 Result Component 6.4( 5 10:10 AM EDT) No Flor Clark PharmD [...] documented as of this encounter Care Teams Letterpress Setter Relationship Specialty Start Date End Date Macie Link DO [address] [place] [address] PCP - General Family Medicine 05/30/18 Flor Clark PharmD [address] [place] [address] Pharmacist Internal Medicine 08/18/23 documented as of this encounter
--- OUTSIDE RECORDS SUMMARY | 2024-09-14 11:53 | XMS_ITS | Encounter Summary ---
Author Organization [employer] Address [address] [facility] [address] 7t [place] [address] Care Team Providers Care Fisher Seal Name Role Phone Macie Link DO Primary Care Provider Flor Clark PharmD Unavailable [phone] Reason for Visit * Reason Onset Date Comments telephone call 09/13/2024 Encounter Details Date Type Department Care Team ([facility] st Contact Info) Description 09/13/2024 Telephone [facility] MEDICINE [address] [place] [address] Macie Link DO [address] [place] [address] telephone call Social History Tobacco Use Types [...] Telephone Encounter - Anum Sams RN - 09/14/2024 9:21 AM EDT RN discussed with PCP who ordered BW today. TC placed to patient [phone] to inform PCP has ordered BW and patient can come to the lab at his convenience to have BW completed. Patient verbalized understanding. Patient to f/u PRN. * Telephone Encounter - She Su - 09/13/2024 12:51 PM EDT Pt walked in stating pcp told him to do blood work in his last appt but I didn't see any labs he had to do , so he wants to know if you can check with pcp if that's what she said. documented in this encounter Plan of Treatment Upcoming Encounters Date Type Department Care Team (Late st Contact Info) Description 09/26/2024 2:00 PM EDT Office Visit [facility] ADULT DENTAL [address] [place] [address] Justin Anne, DMD [address] [place] [address] 10/11/2024 9:00 AM EDT Medication Management [facility] MEDICINE [address] [place] [address] Flor Clark PharmD [address] [place] [address] 11/13/2024 11:30 AM EDT Clinical Support [facility] [address] [place] [address] April Murrell RN 11/14/2024 2:00 PM EDT Office Visit [facility] ADULT DENTAL [address] [place] [address] Eleni Shin [address] [place] [address] documented as of this encounter Goals Goal [...] documented as of this encounter Care Teams Fisher Seal Relationship Specialty Start Date End Date Macie Link DO 230 [place] [address] PCP - General Family Medicine 05/30/18 Folr Clark, DerikD [address] [place] [address] Pharmacist Internal Medicine 08/18/23 documented as of this encounter
--- OUTSIDE RECORDS SUMMARY | 2024-09-14 11:54 | XMS_ITS | Encounter Summary ---
Author Organization [facility], Address [address] [place] [address] Phone Care Team Providers Care Coal Sampler Name Role Phone Macie Link DO Primary Care Provider Unava ilable Encounter Details Date Type Department Care Team (Late st Contact Info) Description 03/16/2024 Documentation Only [facility], [address] [place] [address] Jimena Gibson [place] [address] [place] [address] Social History Tobacco Use Types [...] on filedocumented in this encounter Care Teams Coal Sampler Relationship Specialty Start Date End Date Macie Link DO PCP - General 04/03/19 documented as of this encounter
--- OUTSIDE RECORDS SUMMARY | 2024-09-14 11:54 | XMS_ITS | Encounter Summary ---
Author Organization [employer] [facility] Address [address] [facility] 7t [place] [address] Care Team Providers Care Lime Kiln Operator Name Role Phone Macie Link DO Primary Care Provider Flor Clark PharmD Unavailable Reason for Visit * Reason Comments Med Refill Encounter Details Date Type Department Care Team (Late st Contact Info) Description 01/13/2023 Refill [facility] MEDICINE [address] [place] [address] Macie Link DO [address] [place] [address] Chronic neck pain Social History Tobacco Use [...] Description 09/26/2024 2:00 PM EDT Office Visit [facility] ADULT DENTAL [address] [place] [address] Justin Anne DMD [address] [place] [address] 10/11/2024 9:00 AM EDT Medication Management [facility] MEDICINE [address] [place] [address] Flor Clark PharmD [address] [place], [place] 11/13/2024 11:30 AM EDT Clinical Support [facility] MEDICINE [address] [place] [address] April Murrell, PADILLA 11/14/2024 2:00 PM EDT Office Visit [facility] ADULT DENTAL [address] [place] [address] Eleni Shin [address] [place] [address] documented as of this encounter Visit Diagnoses Diagnosis Chronic neck pain Cervicalgia documented in this encounter Additional Health Concerns Assessment Noted Time PHQ-9 Depression Total Score: 2 07/06/19 23 9:23 AM EST documented as of this encounter Care Teams Lime Kiln Operator Relationship Specialty Start Date End Date Macie Link DO [address] [place] [address] PCP - General Family Medicine 05/30/18 Flor Clark PharmD [address] [place] [address] [phone] Pharmacist Internal Medicine 08/18/23 documented as of this encounter
--- OUTSIDE RECORDS SUMMARY | 2024-09-14 11:54 | XMS_ITS | Encounter Summary ---
Author Organization [employer] Address [address] 7t [place] [address] Care Team Providers Care Computer Systems Hardware Analyst Name Role Phone Macie Link DO Primary Care Provider [phone] Flor Clark PharmD Unavailable [phone] Reason for Visit * Reason Comments Med Refill Encounter Details Date Type Department Care Team ([facility] st Contact Info) Description 05/24/2024 Refill [facility] [address] [place] [address] Macie Link DO [address] [place] [address] Anxiety Social History Tobacco Use Types Packs/Day [...] Description 09/26/2024 2:00 PM EDT Office Visit [facility] [address] [place] [address] Justin Anne, DMD [address] [place] [address] 10/11/2024 9:00 AM EDT Medication Management [facility] [address] [place] [address] Flor Clark, DerikD [address] [place] [address] 11/13/2024 11:30 AM EDT Clinical Support [facility] [address] [place] [address] April Murrell, PADILLA 11/14/2024 2:00 PM EDT Office Visit [facility] [address] [place] [address] Eleni Shin [address] [place] [address] documented as of this encounter Goals Goal Patient Goal Type Associated Problems Recent Progress Patient-Stated? Author Hemoglobin A1c < 7 Result Component 6.4( 10:10 AM EDT) No Flor Clark, DerikD Note: A1c value [...] documented as of this encounter Care Teams Computer Systems Hardware Analyst Relationship Specialty Start Date End Date Macie Link DO [address] [place] [address] PCP - General Family Medicine 05/30/18 Flor Clark PharmD 230 [place] [address] Pharmacist Internal Medicine 08/18/23 documented as of this encounter
--- OUTSIDE RECORDS SUMMARY | 2024-09-14 11:54 | XMS_ITS | Encounter Summary ---
Author Organization [employer] Address [address] 7t [place] [address] Care Team Providers Care New Product Trainer Name Role Phone Macie Link DO Primary Care Provider [phone] Flor Clark PharmD Unavailable [phone] Reason for Visit * Reason Comments Med Refill Encounter Details Date Type Department Care Team ([facility] st Contact Info) Description 03/08/2023 Refill [facility] [address] [place] [address] Macie Link DO [address] [place] [address] Anxiety; Chronic neck pain Social History Tobacco [...] Description 09/26/2024 2:00 PM EDT Office Visit [facility] [address] [place] [address] Justin Anne, SHAY [address] [place] [address] 10/11/2024 9:00 AM EDT Medication Management [facility] [address] [place] [address] Flor Clark, PharmD [address] [place] [address] 11/13/2024 11:30 AM EDT Clinical Support [facility] [address] [place] [address] April Murrell RN 11/14/2024 2:00 PM EDT Office Visit [facility] [address] [place] [address] Eleni Shin [address] [place] [address] documented as of this encounter Visit Diagnoses Diagnosis Anxiety Anxiety state, unspecified Chronic neck pain Cervicalgia documented in this encounter Additional Health Concerns Assessment Noted Time PHQ-9 Depression Total Score: 2 07/06/19 23 9:23 AM EST documented as of this encounter Care Teams New Product Trainer Relationship Specialty Start Date End Date Macie Link DO [address] [place] [address] PCP - General Family Medicine 05/30/18 Flor Clark, Jaspreet [address] [place] [address] Pharmacist Internal Medicine 08/18/23 documented as of this encounter
--- OUTSIDE RECORDS SUMMARY | 2024-09-14 11:54 | XMS_ITS | Encounter Summary ---
Author Organization [employer] Address [address] [facility] 7t [place] [address] Care Team Providers Care Director Of Sports Performance Name Role Phone Macie Link DO Primary Care Provider [phone] Flor Clark PharmD Unavailable [phone] Reason for Visit * Reason Comments Med Refill Encounter Details Date Type Department Care Team (Late st Contact Info) Description 06/01/[address] [facility] [address] [place] [address] Macie Link DO [address] [place], [place] [phone] Anxiety; Chronic neck pain Social History Tobacco [...] Office Visit [facility] [address] [place] [address] Justin Anne, DMD [address] [place] [address] 10/11/2024 9:00 AM EDT Medication Management [facility] [address] [place] [address] Flor Clark, PharmD [address] [place] [address] 11/13/2024 11:30 AM EDT Clinical Support [facility] [address] [place] [address] April Murrell, PADILLA 11/14/2024 2:00 PM EDT Office Visit [facility] [address] [place] [address] Eleni Shin [address] [place] [address] documented as of this encounter Visit Diagnoses Diagnosis Anxiety Anxiety state, unspecified Chronic neck pain Cervicalgia documented in this encounter Additional Health Concerns Assessment Noted Time PHQ-9 Depression Total Score: 13 024 9:15 AM EST documented as of this encounter Care Teams Director Of Sports Performance Relationship Specialty Start Date End Date Macie Link DO [address] [place], [place] [phone] PCP - General Family Medicine 05/30/18 Flor Clark PharmD [address] [place] [address] Pharmacist Internal Medicine 08/18/23 documented as of this encounter
--- OUTSIDE RECORDS SUMMARY | 2024-09-14 11:54 | XMS_ITS | Encounter Summary ---
Author Organization [facility], Address [address] [place] [address] Phone Care Team Providers Care Debt And Budget Counselor Name Role Phone Macie Link DO Primary Care Provider Unava ilable Encounter Details Date Type Department Care Team (Late st Contact Info) Description 10/19/2023 Documentation Only [facility], [address] [place] [address] Jimena Gibson [place] [address] [place] [address] Social History Tobacco Use Types [...] on filedocumented in this encounter Care Teams Debt And Budget Counselor Relationship Specialty Start Date End Date Macie Link DO PCP - General 04/03/19 documented as of this encounter
--- OUTSIDE RECORDS SUMMARY | 2024-09-14 11:54 | XMS_ITS | Encounter Summary ---
Author Organization [employer] Address [address] 7t [place] [address] Care Team Providers Care Forest Botany Instructor Name Role Phone Macie Link DO Primary Care Provider [phone] Flor Clark PharmD Unavailable [phone] Reason for Visit * Reason Comments Med Refill Encounter Details Date Type Department Care Team ([facility] st Contact Info) Description 03/14/2023 Refill [facility] [address] [place] [address] Macie Link DO [address] [place] [address] Anxiety; Chronic neck pain Social History Tobacco [...] Description 09/26/2024 2:00 PM EDT Office Visit [facility] [address] [place] [address] Justin Anne, SHAY [address] [place] [address] 10/11/2024 9:00 AM EDT Medication Management [facility] [address] [place] [address] Flor Clark, PharmD [address] [place] [address] 11/13/2024 11:30 AM EDT Clinical Support [facility] [address] [place] [address] April Murrell RN 11/14/2024 2:00 PM EDT Office Visit [facility] [address] [place] [address] Eleni Shin [address] [place] [address] documented as of this encounter Visit Diagnoses Diagnosis Anxiety Anxiety state, unspecified Chronic neck pain Cervicalgia documented in this encounter Additional Health Concerns Assessment Noted Time PHQ-9 Depression Total Score: 2 07/06/19 23 9:23 AM EST documented as of this encounter Care Teams Forest Botany Instructor Relationship Specialty Start Date End Date Macie Link DO [address] [place] [address] PCP - General Family Medicine 05/30/18 Flor Clark, Jaspreet [address] [place] [address] Pharmacist Internal Medicine 08/18/23 documented as of this encounter
--- OUTSIDE RECORDS SUMMARY | 2024-09-14 11:54 | XMS_ITS ---
Author Organization [facility] Address [address] [place] [address] Care Team Providers Care Electrical Tech Name Role Phone Patient, Has No Pcp Or Ref Primary Care Provider Unavailable Transplant Episode Kidney Candidate [facility] ([place], [place]) - [facility] Evaluation began on 03/15/2024 Marked as Active on 03/15/2024 Kidney CoordinatorLynda Diaz RN Fax: N/A Email: N/A Scores Score Value Updated Exceptions/Reas ons CPRA Not available EPTS (Calc) 88 09/14/2024 [facility] Organ Diagnosis Organ Primary Contributory Kidney Diabetes Mellitus - Type II Care Team Name Role Phone Fax Email Lynda Diaz RN Kidney Coordinator [phone] N/A N/A Anastacio Nickerson MD Referring Physician [phone] N/A Events Pre-Transplant Referred: 12/21/2023 Evaluation began: 03/15/2024 Dialysis History Dialysis History Start End Type Comments Center 12/17/2021 In-center Hemodialysis M, W, F [facility] Dialysis Center Information Center Phone Fax Address [facility] [phone] [address] [facility] [address] [facility] [address]
--- OUTSIDE RECORDS SUMMARY | 2024-09-14 11:54 | XMS_ITS | Encounter Summary ---
Author Organization [employer] Address [address] [facility] 7t [place] [address] Care Team Providers Care Miter Saw Operator Name Role Phone Macie Link DO Primary Care Provider Flor Clark PharmD Unavailable [phone] Reason for Visit * Reason Comments Med Refill Encounter Details Date Type Department Care Team ([facility] st Contact Info) Description 08/22/2023 Refill [facility] [address] [place] [address] Macie Link DO [address] [place], [place] [phone] Chronic neck pain; Anxiety Social History Tobacco [...] Description 09/26/2024 2:00 PM EDT Office Visit [facility] [address] [place] [address] Justin Anne, DMD [address] [place] [address] 10/11/2024 9:00 AM EDT Medication Management [facility] [address] [place] [address] Flor Clark, DerikD [address] [place] [address] 11/13/2024 11:30 AM EDT Clinical Support [facility] [address] [place] [address] April Murrell, PADILLA 11/14/2024 2:00 PM EDT Office Visit [facility] [address] [place] [address] Eleni Shin [address] [place] [address] documented as of this encounter Goals Goal [...] documented as of this encounter Care Teams Miter Saw Operator Relationship Specialty Start Date End Date Macie Link DO [address] [place] [address] PCP - General Family Medicine 05/30/18 Flor Clark PharmD [address] [place] [address] Pharmacist Internal Medicine 08/18/23 documented as of this encounter
--- OUTSIDE RECORDS SUMMARY | 2024-09-14 11:54 | XMS_ITS | Encounter Summary ---
Author Organization [employer] Address [address] [facility] 7t [place] [address] Care Team Providers Care Workers Compensation Specialist Name Role Phone Macie Link DO Primary Care Provider [phone] Flor Clark PharmD Unavailable [phone] Reason for Visit * Reason Comments Med Refill Encounter Details Date Type Department Care Team (Late st Contact Info) Description 12/13/2023 Refill [facility] [address] [place] [address] Macie Link DO [address] [place] [address] Anxiety; Chronic neck pain Social History Tobacco [...] Description 09/26/2024 2:00 PM EDT Office Visit [facility] [address] [place] [address] Justin Anne, DMD [address] [place] [address] 10/11/2024 9:00 AM EDT Medication Management [facility] [address] [place] [address] Flor Clrak, DerikD [address] [place] [address] 11/13/2024 11:30 AM EDT Clinical Support [facility] [address] [place] [address] April Murrell, PADILLA 11/14/2024 2:00 PM EDT Office Visit [facility] [address] [place] [address] Eleni Shin [address] [place] [address] documented as of this encounter Goals Goal [...] documented as of this encounter Care Teams Workers Compensation Specialist Relationship Specialty Start Date End Date Macie Link DO [address] [place] [address] PCP - General Family Medicine 05/30/18 Flor Clark PharmD [address] [place] [address] Pharmacist Internal Medicine 08/18/23 documented as of this encounter
--- OUTSIDE RECORDS SUMMARY | 2024-09-14 11:54 | XMS_ITS | Encounter Summary ---
Author Organization [employer] Address [address] [facility] [address] [place] [address] Care Team Providers Care Shrimping Boat Captain Name Role Phone Macie Link DO Primary Care Provider [phone] Flor Clark PharmD Unavailable [phone] Encounter Details Date Type Department Care Team (Late st Contact Info) Description 09/09/2023 Orders Only [facility] [address] [place] [address] ProviderProsper MD Social History Tobacco Use Types [...] Description 09/26/2024 2:00 PM EDT Office Visit [facility] [address] [place] [address] Justin Anne, SHAY [address] [place] [address] 10/11/2024 9:00 AM EDT Medication Management [facility] [address] [place] [address] Flor Clark, PharmD [address] [place] [address] 11/13/2024 11:30 AM EDT Clinical Support [address] [address] April Murrell RN 11/14/2024 2:00 PM EDT Office Visit [facility] [address] [place] [address] Eleni Shin [address] [place] [address] documented as of this encounter Goals Goal [...] documented as of this encounter Care Teams Shrimping Boat Captain Relationship Specialty Start Date End Date Macie Link DO [address] [place] [address] PCP - General Family Medicine 05/30/18 Flor Clark PharmD [address] [place] [address] Pharmacist Internal Medicine 08/18/23 documented as of this encounter
--- OUTSIDE RECORDS SUMMARY | 2024-09-14 11:54 | XMS_ITS | Clinical Summary ---
Author Organization [facility] Address [address] [place] [address] Care Team Providers Care Agribusiness Internship Name Role Phone Patient, Has No Pcp [...] Encounters Date Type Department Care Team Description 09/10/2024 Telephone [facility] Building Cancer Clinic South 5th Floor [address] [place] [address] Pierce Au MD Appointment (Pt of Viraj Deng PET requesting office notes and imaging for upcoming PET scan ) 08/24/2024 Telephone [facility] Bone Marrow Transplant [address] [place] [address] Hillary Webber MD 08/23/2024 Orders Only [facility] Cancer [facility] [address] [place] [address] [address] [place] [address] Pierce Au MD Renal cell carcinoma, unspecified laterality 07/06/2024 12:35 PM EST - 07/06/2024 11:59 PM EST Hospital Encounter [facility] CT Scan [address] [place] [address] Hillary Webber MD Renal cell carcinoma of right kidney Discharge Disposition: Home or Self Care () 07/05/2024 Patient Outreach [facility] South [address] [place] [address] [address] [place] [address] Rea Parks, PADILLA 07/05/2024 Orders Only [facility] Cancer [address] [place] [address] Rea Parks, valuation manager cell carcinoma of right kidney (Primary Dx); Neuroendocrine carcinoma of stomach 07/04/2024 Patient Outreach [facility] Cancer [address] [place] [address] Rea Parks, PADILLA 06/28/2024 Orders Only [facility] Nuclear Medicine [address] [place] [address] Kandice Pacheco MD 06/27/2024 Orders Only [facility] Interventional Radiology [address] [place] [address] Amanda Sweet MD 06/21/2024 2:00 PM EST Office Visit [facility] Cancer [facility] [address] [place] [address] [address] [place] [address] Hillary Webber MD Renal cell carcinoma of right kidney (Primary Dx); Neuroendocrine carcinoma of stomach from Last 3 Months Immunizations Immunization Administration Dates Next Due COVID-19, Moderna, mRNA, LNP -S, Bivalent Booster, PF 03/12/2022 Hepatitis B vaccine (HEPLISA V-B) vaccine 0.5 mL IM 12/29/2022,11/03/2022,10/04/2022,2022 Pneumococcal conjugate PCV20,polysaccharide TZV180 conjugate, adjuvant, PF (Prevnar 20) 06/22/2023 Social [...] Info) Description 09/24/2024 8:30 AM EDT Follow-Up [facility] Cancer Center North 5th Floor [address] [place] [address] Pierce Au MD [address] [place] [address] 03/19/2025 9:00 AM EDT Follow-Up [facility] Renal Transplant [address] [place] [address] Louie Pablo MD [address] [place] [address] 03/19/2025 9:30 AM EDT Social Work [facility] Renal Transplant [address] [place] [address] Imani Livingston, LORY [address] [place] [address] Health Maintenance Due Date Last Done Comments [...] Screening 05/30/2024 Depression Screening and Follow-Up 05/30/2024 [facility] [place] ual Screening 05/30/2024 Basic Metabolic Panel 10/03/2024 07/06/2024 , 11/03/2023, 12/11/2021 Hemoglobin A1C 03/13/2025 09/11/2024, 04/0 12/2024, 06/07/2024, Additional history exists Hemoglobin 03/15/2025 03/15/2024 Phosphorus [...] Nephrology Completed 03/15/2024 HIV Screening Completed 03/15/2024, 11/27, 12/09/2020 Hepatitis C Screening Completed 03/15/2024 Procedures * Due to [place] Information [employer] law, this organization might not be sharing negative HIV tests. Procedure Name Priority Date/Time Associated Diagnosis Comments PET/CT FDG SKULL BASE TO MID-THIGH Routine 09/13/2024 10:00 AM EDT Renal cell carcinoma, unspecified laterality (HCC) PET/CT GA68 DOTATATE NETSPOT Routine 08/02/2024 7:40 [...] to Health Maintenance Results * Due to [place] Information [employer] law, this organization might not be sharing negative HIV tests. 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 Technique: The procedure was explained to the patient. The patient's serum glucose was 158 mg/DL at the time of injection. ??Beginning approximately 60 minutes following the intravenous administration of 11.9 mCi of F-18 fluorodeoxyglucose in the right antecubital fossa, emission images were obtained from the skull base to the proximal thighs. Following this CT was obtained at the same levels without IV or oral contrast with the patient maintaining quiet breathing. Following attenuation correction using the CT images, axial sagittal and coronal images were reconstructed. CT images are used for attenuation correction and image localization and were neither performed, nor intended to replace, diagnostic quality CT. Comparison: CT PET Dotatate 08/02/2024, 08/25/2023. FINDINGS Internal Reference Values: Ascending aortic blood pool: SUV max 3.2. Right hepatic lobe: SUV max 3.3. Head and Neck Soft Tissues: No abnormal FDG uptake in the head or soft tissues of the neck. Chest Soft Tissues: ?? New 1.4 x 1.5 cm ill-defined, irregularly shaped nodule in the right upper lobe (image 53), demonstrating mild FDG uptake SUV max 2.6. Resolution of previously identified subcentimeter right upper lobe nodules, likely related to an infectious/inflammatory process. No FDG avid mediastinal or hilar lymphadenopathy. No FDG avid axillary lymphadenopathy. Mild bibasilar atelectasis. Mild thoracic aortic vascular calcification. Severe coronary artery calcification. Abdomen and Pelvis Soft Tissues: Unchanged 0.9 cm short axis gastrohepatic node (image 82), SUV max 1.9. Unchanged 1.0 cm short axis nanette hepatis note (image 85), SUV max 1.9. The liver is normal. Status post cholecystectomy. Mildly enlarged spleen measuring up to 13.9 cm in AP dimension. No focal lesion. The pancreas is normal. The adrenal glands are normal. Status post right radical nephrectomy. No evidence of FDG uptake or soft tissue in the surgical bed. Mild atrophy of the [place] left kidney, unchanged. Normal left ureter. Enlarged prostate. No abnormal focal uptake. Focal uptake at the anus, likely physiologic. The colon is normal. Diffuse uptake throughout the small bowel with short segment increased activity in the right hemiabdomen, for example image 108), SUV max 8.8, likely [id number]. Surgical clips in the stomach. No suspicious focal uptake in the gastric wall. Bilateral fat-containing inguinal hernias. Bones and Extremities: Unchanged 0.6 cm lytic lesion in the right ilium (image 129), SUV max 2.9. Unchanged punctate sclerotic focus in the right ilium. Unchanged 1.5 cm lytic lesion in the L1 vertebral body (image 95), no significant uptake. Unchanged 1.5 cm lytic lesion in the T11 vertebral body (image 84), no significant uptake. Unchanged 1.0 cm lytic lesion in the T10 vertebral body (image 78), no significant uptake. Unchanged 0.9 cm lytic lesion in the T9 vertebral body (image 76), no significant uptake. IMPRESSION: Compared to Dotatate PET-CT 08/02/2024, there is a new 1.5 cm ill-defined nodule in the right upper lobe demonstrating mild FDG uptake. Given rapid interval development, findings likely represent an inflammatory/infectious process. Follow-up CT chest in 3-6 weeks to assess for progression/resolution can be considered. Unchanged 0.9 cm short axis gastrohepatic lymph node demonstrating mild FDG uptake. Stable lytic lesions in the thoracolumbar spine, without associated FDG uptake. Mild increased FDG activity within the right iliac, similar in location to previous PET/CT. I, Rahat Castillo, have reviewed the images and report and concur with the resident, Antoine Caldwell's, findings. 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 Technique: The procedure was explained to the patient. The patient's serum glucose was 158 mg/DL at the time of injection. Beginning approximately 60 minutes following the intravenous administration of 11.9 mCi of F-18 fluorodeoxyglucose in the right antecubital fossa, emission images were obtained from the skull base to the proximal thighs. Following this CT was obtained at the same levels without IV or oral contrast with the patient maintaining quiet breathing. Following attenuation correction using the CT images, axial sagittal and coronal images were reconstructed. CT images are used for attenuation correction and image localization and were neither performed, nor intended to replace, diagnostic quality CT. Comparison: CT PET Dotatate 08/02/2024, 08/25/2023. FINDINGS Internal Reference Values: Ascending aortic blood pool: SUV max 3.2. Right hepatic lobe: SUV max 3.3. Head and Neck Soft Tissues: No abnormal FDG uptake in the head or soft tissues of the neck. Chest Soft Tissues: New 1.4 x 1.5 cm ill-defined, irregularly shaped nodule in the right upper lobe (image 53), demonstrating mild FDG uptake SUV max 2.6. Resolution of previously identified subcentimeter right upper lobe nodules, likely related to an infectious/inflammatory process. No FDG avid mediastinal or hilar lymphadenopathy. No FDG avid axillary lymphadenopathy. Mild bibasilar atelectasis. Mild thoracic aortic vascular calcification. Severe coronary artery calcification. Abdomen and Pelvis Soft Tissues: Unchanged 0.9 cm short axis gastrohepatic node (image 82), SUV max 1.9. Unchanged 1.0 cm short axis nanette hepatis note (image 85), SUV max 1.9. The liver is normal. Status post cholecystectomy. Mildly enlarged spleen measuring up to 13.9 cm in AP dimension. No focal lesion. The pancreas is normal. The adrenal glands are normal. Status post right radical nephrectomy. No evidence of FDG uptake or soft tissue in the surgical bed. Mild atrophy of the [place] left kidney, unchanged. Normal left ureter. Enlarged prostate. No abnormal focal uptake. Focal uptake at the anus, likely physiologic. The colon is normal. Diffuse uptake throughout the small bowel with short segment increased activity in the right hemiabdomen, for example image 108), SUV max 8.8, likely [id number]. Surgical clips in the stomach. No suspicious focal uptake in the gastric wall. Bilateral fat-containing inguinal hernias. Bones and Extremities: Unchanged 0.6 cm lytic lesion in the right ilium (image 129), SUV max 2.9. Unchanged punctate sclerotic focus in the right ilium. Unchanged 1.5 cm lytic lesion in the L1 vertebral body (image 95), no significant uptake. Unchanged 1.5 cm lytic lesion in the T11 vertebral body (image 84), no significant uptake. Unchanged 1.0 cm lytic lesion in the T10 vertebral body (image 78), no significant uptake. Unchanged 0.9 cm lytic lesion in the T9 vertebral body (image 76), no significant uptake. IMPRESSION: Compared to Dotatate PET-CT 08/02/2024, there is a new 1.5 cm ill-defined nodule in the right upper lobe demonstrating mild FDG uptake. Given rapid interval development, findings likely represent an inflammatory/infectious process. Follow-up CT chest in 3-6 weeks to assess for progression/resolution can be considered. Unchanged 0.9 cm short axis gastrohepatic lymph node demonstrating mild FDG uptake. Stable lytic lesions in the thoracolumbar spine, without associated FDG uptake. Mild increased FDG activity within the right iliac, similar in location to previous PET/CT. I, Rahat Castillo, have reviewed the images and report and concur with the resident, Antoine Caldwell's, findings. Electronically Signed By: Rahat Castillo MD Pierce Au MD IM MRI PROCEDURES Final Result * PET/CT Skull Base to Mid Thigh [id number] (08/02/2024 7:40 PM EST) Anatomical Region Laterality Modality Entire body Magnetic Resonan ce 08/02/2024 6:50 PM EST Narrative 08/03/2024 12:07 PM EST [facility] PET/CT Imaging Accession Number: [id number] Patient Name: Joshua Barnard Date of : 1960 Date of Exam: 08-02-2024 Referring Physician: Hillary Webber ?[facility] ?[address] [place] [address] ?[place] [address] Exam: PT Skull Base to Mid Thigh [id number] CPT 32529 Room Description: [facility] Pt4 Ga-68 Dotatate PET-CT History: History [...] MD Procedure Note Provider, Viraj - 08/03/2024 [facility] PET/CT Imaging Accession Number: [id number] Patient Name: Joshua Barnard Date of : 1960 Date of Exam: 08-02-2024 Referring Physician: Hillary Webber [address] [address] Exam: PT Skull Base to Mid Thigh [id number] CPT 95849 Room Description: [facility] Pt4 Ga-68 Dotatate PET-CT History: History [...] Annalee Mcmillan MD us Hillary Webber MD [facility] MRI PROCEDURES Final Result * CT Abdomen [...] extensive review of this patient's notes in [facility]. Without this review, the possibility of an erroneous interpretation of this exam could have occurred. If this radiology report contains a blank impression section, it is an incomplete radiology report. ??Please contact the interpreting radiologist or applicable radiology division as soon as possible to obtain the completed interpretation. ? Workstation ID: [id number] Narrative 07/09/2024 2:20 PM EST Indication: Renal [...] likely a bone island. Resulting Agency Comment [id number] Procedure Note Eusebio Poole MD - 07/09/2024 [...] possible to obtain thecompleted interpretation. Workstation ID: [id number] us Hillary Webber MD [facility] CT PROCEDURES Final Result * CT Chest [...] obtain the completed interpretation. ? Workstation ID: [id number] Up-to-date CT equipment and radiation dose reduction techniques were employed. CTDIvol: 14.8 - 18.2 mGy. DLP: 1501 mGy-cm. ??The following accession numbers are related to this dose report [id number]: [id number] Narrative 07/10/2024 9:46 AM EST Indication: ??Renal [...] 2021, likely benign. ?? Resulting Agency Comment [id number] Procedure Note Raquel Krause MD - 07/10/2024 [...] possible to obtain thecompleted interpretation. Workstation ID: [id number] Up-to-date CT equipment and radiation dose reduction techniques wereemployed. CTDIvol: 14.8 - 18.2 mGy. DLP: 1501 mGy-cm. The followingaccession numbers are related to this dose report [id number]: [id number] Hillary Webber MD [facility] CT PROCEDURES Final Result * (ABNORMAL) Basic Metabolic Panel (07/06/2024 11:59 AM EST) NA 138 135 - 145 mmol/L 07/06/2024 12:39 PM EST [email or web address] K 4.4 3.5 - 5.3 mmol/L 07/06/2024 12:39 PM EST [email or web address] Cl 96(L) 98 - 107 mmol/L 07/06/2024 12:39 PM EST [email or web address] CO2 30 22 - 32 mmol/L 07/06/2024 12:39 PM EST [email or web address] BUN 19 7 - 23 mg/dL 07/06/2024 12:39 PM EST [email or web address] Creatinine 5.41(H) 0.60 - 1.30 mg/dL 07/06/2024 12:39 PM EST [email or web address] Glucose 147(H) 65 - 99 mg/dL 07/06/2024 12:39 PM EST [email or web address] Calcium 9.7 8.6 - 10.5 mg/dL 07/06/2024 12:39 PM EST [facility] Anion Gap 12 5 - 15 07/06/2024 12:39 PM EST [facility] [employer] [facility] eGFR 11(L) >=60 mL/min/1 .73m2 07/06/2024 12:39 PM EST [facility] [employer] [facility] Comment:The estimated glomer ular [...] MD LAB BLOOD ORDERABLES Final Resu lt [facility] [employer] [facility] [address] [place] [id number], * (ABNORMAL) CBC Auto Differential (03/15/2024 12:39 PM EDT) WBC 6.2 3.8 - 10.8 10*3/uL 03/15/2024 1:11 PM EDT [facility] [employer] [facility] RBC 3.90(L) 4.20 - 5.80 10*6/uL 03/15/2024 1:11 PM EDT [facility] Hemoglobin 11.9(L) 13.2 - 17.1 g/dL 03/15/2024 1:11 PM EDT [facility] [employer] [facility] Hematocrit 36.8(L) 38.5 - 50.0 % 03/15/2024 1:11 PM EDT [facility] MCV 94.4 80.0 - 100.0 fL 03/15/2024 1:11 PM EDT [facility] MCH 30.5 27.0 - 33.0 pg 03/15/2024 1:11 PM EDT [facility] MCHC 32.3 32.0 - 36.0 g/dL 03/15/2024 1:11 PM EDT [facility] RDW 14.2 11.0 - 15.0 % 03/15/2024 1:11 PM EDT [facility] Platelets 175 140 - 400 10*3/uL 03/15/2024 1:11 PM EDT [facility] MPV 11.3 7.5 - 12.5 fL 03/15/2024 1:11 PM EDT [facility] Neutrophil % 59.1 % 03/15/2024 1:11 PM EDT [facility] Immature Grans % 0.2 0.0 - 0.9 % 03/15/2024 1:11 PM EDT [facility] Lymphocyte % 28.1 % 03/15/2024 1:11 PM EDT [facility] Monocyte % 9.9 % 03/15/2024 1:11 PM EDT [facility] Eosinophil % 2.4 % 03/15/2024 1:11 PM EDT [facility] Basophil % 0.3 % 03/15/2024 1:11 PM EDT [facility] Neutrophil # 3.63 1.50 - 7.80 10*3/uL 03/15/2024 1:11 PM EDT [facility] Immature Grans # <0.03 <=0.03 10*3/uL 03/15/2024 1:11 PM EDT [facility] Lymphocyte # 1.70 0.85 - 3.90 10*3/uL 03/15/2024 1:11 PM EDT [facility] Monocyte # 0.60 0.20 - 0.95 10*3/uL 03/15/2024 1:11 PM EDT [facility] Eosinophil # 0.20 0.02 - 0.50 10*3/uL 03/15/2024 1:11 PM EDT [facility] Basophil # <0.03 0.00 - 0.20 10*3/uL 03/15/2024 1:11 PM EDT [facility] nRBC % 0.0 /100 WBCs 03/15/2024 1:11 PM EDT [facility] nRBC # <0.01 <0.01 10*3/uL 03/15/2024 1:11 PM EDT [facility] Blood Structure of peripheral vein / Unknown Venipuncture / Unknown 03/15/2024 12:39 PM EDT 03/15/2024 12:59 PM EDT Tobias Vogt MD LAB BLOOD ORDERABLES Final Result [facility] [address] [place] [address], * Hepatitis C Antibody w/Reflex to PCR (03/15/2024 12:39 PM EDT) Hepatitis C Antibody NON-REACT ALBINO NON-REACT ALBINO 03/16/2024 3:27 AM EDT [facility] Comment: HCV antibody was non-reactive. There is no laboratory evidence of HCV infection. In most cases, no further action is required. However, if recent HCV exposure is suspected, a test for HCV RNA (test code 32562) is suggested. For additional information please refer to http://education.Snaptiva/faq/LHP12h2 (This link is being provided for informational/ educational purposes only.) Blood Structure of peripheral vein / Unknown Venipuncture / Unknown 03/15/2024 12:39 PM EDT 03/15/2024 12:58 PM EDT Narrative ELIUD DOMÍNGUEZ - 03/16/2024 3:27 AM EDT [facility] Received Date: us Tobias Vogt MD LAB BLOOD ORDERABLES Final Result ELIUD MADSENBANNERMARITZA [address] [facility] 3rd Floor, [place] [address], [place] [phone] [facility] [address] [facility] [address]rd Floor, [place] [address], [place] [phone] * Phosphorus (03/15/2024 12:39 PM EDT) Pathologist [facility] Phosphorus 3.4 2.5 - 4.5 mg/dL 03/15/2024 1:45 PM EDT [facility] Blood Structure of peripheral vein / Unknown Venipuncture / Unknown 03/15/2024 12:39 PM EDT 03/15/2024 12:58 PM EDT us Tobias Vogt MD LAB BLOOD ORDERABLES Final Result [facility] [address] [place] [address], * (ABNORMAL) Hemoglobin A1c (03/15/2024 12:39 PM EDT) Hemoglobin A1C 6.3(H) <5.7 % of total Hgb 03/16/2024 2:05 AM EDT [facility] Comment: For someone without known diabetes, a [...] (MG/DL) 134 mg/dL 03/16/2024 2:05 AM EDT [facility] eAG (MMOL/L) 7.4 mmol/L 03/16/2024 2:05 AM EDT [facility] Blood Structure of peripheral vein / Unknown Venipuncture / Unknown 03/15/2024 12:39 PM EDT 03/15/2024 12:59 PM EDT Narrative ELIUD DOMÍNGUEZ - 03/16/2024 2:05 AM EDT [facility] Received Date: us Tobias Vogt MD LAB BLOOD ORDERABLES Final Result [facility] [address] [facility] 3rd Floor, [place] [address], [place] [phone] [facility] [address] [facility] [address]rd Floor, [place] [address], [place] [phone] from Last 3 Months or Most Recently Relevant to Health Maintenance Insurance [facility]. 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
--- OUTSIDE RECORDS SUMMARY | 2024-09-14 11:54 | XMS_ITS | Encounter Summary ---
Author Organization [email or web address] Address [address] 7t [place] [address] Care Team Providers Care Production Or Plant Engineer Name Role Phone Macie Link DO Primary Care Provider [phone] Flor Clark PharmD Unavailable [phone] Reason for Visit * Reason Onset Date Comments Prior Authorization 08/17/2023 Encounter Details Date Type Department Care Team ([facility] st Contact Info) Description 08/17/2023 Telephone [facility] [address] [place] [address] Macie Link DO [address] [place] [address] Prior Authorization Social History Tobacco Use Types [...] 2.5-2.5 % cream To be sent to: [facility] - [place], [place] - [address] [facility] documented in this encounter Plan of Treatment Upcoming Encounters Date Type Department Care Team (Late st Contact Info) Description 09/26/2024 2:00 PM EDT Office Visit [facility] [address] [place] [address] Justin Anne, DMD [address] [place] [address] 10/11/2024 9:00 AM EDT Medication Management [facility] [address] [place], [place] [phone] Flor Clark PharmD [address] [place] [address] 11/13/2024 11:30 AM EDT Clinical Support [facility] [address] [place], [place] [phone] April Murrell RN 11/14/2024 2:00 PM EDT Office Visit [facility] [address] [place], [place] [phone] Fitz Shinaris [address] [place], [place] [phone] documented as of this encounter Goals Goal [...] documented as of this encounter Care Teams Production Or Plant Engineer Relationship Specialty Start Date End Date Macie Link DO [place], [place] [phone] PCP - General Family Medicine 05/30/18 Flor Clark PharmD [address] [place] [address] [phone] Pharmacist Internal Medicine 08/18/23 documented as of this encounter
--- OUTSIDE RECORDS SUMMARY | 2024-09-14 11:54 | XMS_ITS | Encounter Summary ---
Author Organization [employer] [facility] Address [address] 7t [place] [address] Care Team Providers Care Guide Travel Name Role Phone Macie Link DO Primary Care Provider Flor Clark PharmD Unavailable [phone] Reason for Visit * Reason Comments Med Refill Encounter Details Date Type Department Care Team (Late st Contact Info) Description 12/31/2022 Refill [facility] [address] [place] [address] Macie Link DO [address] [place] [address] Anxiety Social History Tobacco Use Types Packs/Day [...] Description 09/26/2024 2:00 PM EDT Office Visit [facility] [address] [place] [address] Justin Anne DMD [address] [place], [place] 10/11/2024 9:00 AM EDT Medication Management [facility] [address] [place] [address] Flor Clark PharmD [address] [place], [place] 11/13/2024 11:30 AM EDT Clinical Support [facility] [address] [place] [address] April Murrell, PADILLA 11/14/2024 2:00 PM EDT Office Visit [facility] [address] [place] [address] Eleni Shin [address] [place], [place] documented as of this encounter Visit Diagnoses Diagnosis Anxiety Anxiety state, unspecified documented in this encounter Additional Health Concerns Assessment Noted Time PHQ-9 Depression Total Score: 2 07/06/19 23 9:23 AM EST documented as of this encounter Care Teams Guide Travel Relationship Specialty Start Date End Date Macie Link DO [address] [place] [address] PCP - General Family Medicine 05/30/18 Flor Clark PharmD [address] [place] [address] [phone] Pharmacist Internal Medicine 08/18/23 documented as of this encounter
--- OUTSIDE RECORDS SUMMARY | 2024-09-14 11:54 | XMS_ITS | Referral Summary ---
Author Organization [facility] Address [address] [place] [address] Care Team Providers Care Cable Placer Name Role Phone Patient, Has No Pcp Or Ref Primary Care Provider Unavailable Encounters Date Type Department Care Team Description 09/10/2024 Telephone [facility] [address] [place] [address] [address] [place] [address] Pierce Au MD Appointment (Pt of Viraj Deng PET requesting office notes and imaging for upcoming PET scan ) 08/24/2024 Telephone [facility] Bone Marrow Transplant [address] [place] [address] Hillary Webber MD 08/23/2024 Orders Only [facility] [address] [place] [address] Pierce Au MD Renal cell carcinoma, unspecified laterality 07/06/2024 12:35 PM EST - 07/06/2024 11:59 PM EST Hospital Encounter [facility] CT Scan [address] [place] [address] Hillary Webber MD Renal cell carcinoma of right kidney Discharge Disposition: Home or Self Care () 07/05/2024 Patient Outreach [facility] Cancer [address] [place] [address] Rea Parks RN 07/05/2024 Orders Only [facility] ACC [facility] [address] [place] [address] [address] [place] [address] Rea Parks RN Renal cell carcinoma of right kidney (Primary Dx); Neuroendocrine carcinoma of stomach 07/04/2024 Patient Outreach [facility] Cancer [facility] 5th Floor [address] [place] [address] Rea Parks RN 06/28/2024 Orders Only [facility] Nuclear Medicine [address] [place] [address] Kandice Pacheco MD 06/27/2024 Orders Only [facility] Interventional Radiology [address] [place] [address] Amanda Sweet MD 06/21/2024 2:00 PM EST Office Visit [facility] 5th [facility] [address] [place] [address] Hillary Webber MD Renal cell carcinoma of right kidney (Primary Dx); Neuroendocrine carcinoma of stomach from Last 3 Months Allergies No known [...] 0.5 mL IM 12/29/2022,11/03/2022,10/04/2022,2022 Pneumococcal conjugate PCV20,polysaccharide SUD053 conjugate, adjuvant, PF (Prevnar 20) 06/22/2023 Social [...] Info) Description 09/24/2024 8:30 AM EDT Follow-Up [facility] 5th Floor [address] [place] [address] Pierce Au MD [address] [place] [address] 03/19/2025 9:00 AM EDT Follow-Up [facility] Renal Transplant [address] [place] [address] Louie Pablo MD [address] [place] [address] 03/19/2025 9:30 AM EDT Social Work [facility] Renal Transplant [address] [place] [address] Imani Livingston, LORY [address] [place] [address] Procedures * Due to [place] [employer] law, this organization might not be sharing [...] to Health Maintenance Results * Due to [place] state law, this organization might not be sharing negative HIV tests. * PET/CT Tumor Imaging - Skull Base to Mid-Thigh (09/13/2024 10:00 AM EDT) Anatomical Region Laterality Modality Entire body Magnetic Resonan ce 09/13/2024 9:30 AM EDT Narrative 09/13/2024 4:50 PM EDT [facility] PET/CT Imaging Accession Number: [id number] Patient Name: Joshua Barnard Date of : 1960 Date of Exam: 09-13-2024 Referring Physician: Pierce Au ?[facility] ?[address] [place] [address] ?[place], [place] [address] Exam: PT Skull Base to Mid Thigh CPT 47728 Room Description: [facility] Pt4 PET CT History: History of [...] the surgical bed. Mild atrophy of the [place] left kidney, unchanged. Normal left ureter. Enlarged prostate. No abnormal focal uptake. Focal uptake at the anus, likely physiologic. The colon is normal. Diffuse uptake throughout the small bowel with short segment increased activity in the right hemiabdomen, for example image 108), SUV max 8.8, likely [id number]. Surgical clips in the stomach. No suspicious [...] iliac, similar in location to previous PET/CT. Rahat Sanchez, have reviewed the images and report and concur with the resident, Antoine Caldwell's, findings. Electronically Signed By: Rahat Castillo MD Procedure Note Provider, Viraj - 09/13/2024 [facility] PET/CT Imaging Accession Number: [id number] Patient Name: Joshua Barnard Date of : 1960 Date of Exam: 09-13-2024 Referring Physician: Pierce Au [place] [address] Exam: PT Skull Base to Mid Thigh CPT 20534 Room Description: [facility] Pt4 PET CT History: History of [...] the surgical bed. Mild atrophy of the [place] left kidney, unchanged. Normal left ureter. Enlarged prostate. No abnormal focal uptake. Focal uptake at the anus, likely physiologic. The colon is normal. Diffuse uptake throughout the small bowel with short segment increased activity in the right hemiabdomen, for example image 108), SUV max 8.8, likely [id number]. Surgical clips in the stomach. No suspicious [...] By: Rahat Castillo MD Pierce Au MD IMG MRI PROCEDURES Final Result * PET/CT Skull Base to Mid Thigh [id number] (08/02/2024 7:40 PM EST) Anatomical Region Laterality Modality Entire body Magnetic Resonan ce 08/02/2024 6:50 PM EST Narrative 08/03/2024 12:07 PM EST [facility] PET/CT Imaging Accession Number: [id number] Patient Name: Joshua Barnard Date of : 1960 Date of Exam: 08-02-2024 Referring Physician: Hillary Webber ?[facility] ?[address] [place] [address] ?[place] [address] Exam: PT Skull Base to Mid Thigh [id number] CPT 72178 Room Description: [facility] Pt4 Ga-68 Dotat[place] PET-CT History: History [...] and report and concur with the resident, Nilisha Ale's, findings. Electronically Signed By: Annalee Mcmillan MD Procedure Note Provider, Viraj - 08/03/2024 [facility] PET/CT Imaging Accession Number: [id number] Patient Name: Joshua Barnard Date of : 1960 Date of Exam: 08-02-2024 Referring Physician: [place] [address] Exam: PT Skull Base to Mid Thigh [id number] CPT 32366 Room Description: [facility] Pt4 Ga-68 [place] PET-CT History: History [...] extensive review of this patient's notes in [facility]. Without this review, the possibility of an erroneous interpretation of this exam could have occurred. If this radiology report contains a blank impression section, it is an incomplete radiology report. ??Please contact the interpreting radiologist or applicable radiology division as soon as possible to obtain the completed interpretation. ? Workstation ID: [id number] Narrative 07/09/2024 2:20 PM EST Indication: Renal [...] likely a bone island. Resulting Agency Comment [id number] Procedure Note Eusebio Poole MD - 07/09/2024 [...] possible to obtain thecompleted interpretation. Workstation ID: [id number] us Hillary Webber MD IMG CT PROCEDURES [...] obtain the completed interpretation. ? Workstation ID: [id number] Up-to-date CT equipment and radiation dose reduction techniques were employed. CTDIvol: 14.8 - 18.2 mGy. DLP: 1501 mGy-cm. ??The following accession numbers are related to this dose report [id number]: [id number] Narrative 07/10/2024 9:46 AM EST Indication: ??Renal [...] 2021, likely benign. ?? Resulting Agency Comment [id number] Procedure Note Raquel Krause MD - 07/10/2024 [...] possible to obtain thecompleted interpretation. Workstation ID: [id number] Up-to-date CT equipment and radiation dose reduction techniques wereemployed. CTDIvol: 14.8 - 18.2 mGy. DLP: 1501 mGy-cm. The followingaccession numbers are related to this dose report [id number]: [id number] Hillary Webber MD [facility] CT PROCEDURES Final Result * (ABNORMAL) Basic Metabolic Panel (07/06/2024 11:59 AM EST) NA 138 135 - 145 mmol/L 07/06/2024 12:39 PM EST [email or web address] K 4.4 3.5 - 5.3 mmol/L 07/06/2024 12:39 PM EST [email or web address] Cl 96(L) 98 - 107 mmol/L 07/06/2024 12:39 PM EST [email or web address] CO2 30 22 - 32 mmol/L 07/06/2024 12:39 PM EST [email or web address] BUN 19 7 - 23 mg/dL 07/06/2024 12:39 PM EST [email or web address] Creatinine 5.41(H) 0.60 - 1.30 mg/dL 07/06/2024 12:39 PM EST [facility] Glucose 147(H) 65 - 99 mg/dL 07/06/2024 12:39 PM EST [facility] Calcium 9.7 8.6 - 10.5 mg/dL 07/06/2024 12:39 PM EST [facility] [email or web address] Anion Gap 12 5 - 15 07/06/2024 12:39 PM EST [facility] CL[facility] PATHOLOG[facility] LABOR[facility]ORY eGFR 11(L) >=60 mL/min/1 .73m2 07/06/2024 12:39 PM EST [facility] Comment:The estimated glomer ular [...] MD LAB BLOOD ORDERABLES Final Resu lt [facility] LAB[facility]ORY [address] [place] [address], [place] * (ABNORMAL) CBC Auto Differential (03/15/2024 12:39 PM EDT) WBC 6.2 3.8 - 10.8 10*3/uL 03/15/2024 1:11 PM EDT [facility] LAB[facility] RBC 3.90(L) 4.20 - 5.80 10*6/uL 03/15/2024 1:11 PM EDT [facility] Hemoglobin 11.9(L) 13.2 - 17.1 g/dL 03/15/2024 1:11 PM EDT [facility] LAB[facility] Hematocrit 36.8(L) 38.5 - 50.0 % 03/15/2024 1:11 PM EDT [facility] MCV 94.4 80.0 - 100.0 fL 03/15/2024 1:11 PM EDT [facility] MCH 30.5 27.0 - 33.0 pg 03/15/2024 1:11 PM EDT [facility] MCHC 32.3 32.0 - 36.0 g/dL 03/15/2024 1:11 PM EDT [facility] RDW 14.2 11.0 - 15.0 % 03/15/2024 1:11 PM EDT [facility] Platelets 175 140 - 400 10*3/uL 03/15/2024 1:11 PM EDT [facility] MPV 11.3 7.5 - 12.5 fL 03/15/2024 1:11 PM EDT [facility] Neutrophil % 59.1 % 03/15/2024 1:11 PM EDT [facility] Immature Grans % 0.2 0.0 - 0.9 % 03/15/2024 1:11 PM EDT [facility] Lymphocyte % 28.1 % 03/15/2024 1:11 PM EDT [facility] Monocyte % 9.9 % 03/15/2024 1:11 PM EDT [facility] Eosinophil % 2.4 % 03/15/2024 1:11 PM EDT [facility] Basophil % 0.3 % 03/15/2024 1:11 PM EDT [facility] Neutrophil # 3.63 1.50 - 7.80 10*3/uL 03/15/2024 1:11 PM EDT [facility] Immature Grans # <0.03 <=0.03 10*3/uL 03/15/2024 1:11 PM EDT [facility] [employer] [facility] LAB[facility] Lymphocyte # 1.70 0.85 - 3.90 10*3/uL 03/15/2024 1:11 PM EDT [facility] [email or web address] LAB[facility] Monocyte # 0.60 0.20 - 0.95 10*3/uL 03/15/2024 1:11 PM EDT [facility] [email or web address] LAB[facility] Eosinophil # 0.20 0.02 - 0.50 10*3/uL 03/15/2024 1:11 PM EDT [facility] [employer] [facility]OLOG[facility] LABORATORY Basophil # <0.03 0.00 - 0.20 10*3/uL 03/15/2024 1:11 PM EDT [facility] [email or web address] LAB[facility] nRBC % 0.0 /100 WBCs 03/15/2024 1:11 PM EDT [facility] [employer] CL[facility] PATHOLOG[facility] LABORATORY nRBC # <0.01 <0.01 10*3/uL 03/15/2024 1:11 PM EDT [facility] [employer] [facility] LAB[facility] Blood Structure of peripheral vein / Unknown Venipuncture / Unknown 03/15/2024 12:39 PM EDT 03/15/2024 12:59 PM EDT Tobias Vogt MD LAB BLOOD ORDERABLES Final Result [facility] [email or web address] CLINICAL PATHOLOGY LABORATORY [address] [place] [address], * Hepatitis C Antibody w/Reflex to PCR (03/15/2024 12:39 PM EDT) Hepatitis C Antibody NON-REACT ALBINO NON-REACT ALBINO 03/16/2024 3:27 AM EDT [employer] [facility] Comment: HCV antibody was non-reactive. There is no laboratory evidence of HCV infection. In most cases, no further action is required. However, if recent HCV exposure is suspected, a test for HCV RNA (test code 67288) is suggested. For additional information please refer to http://education.[employer]/faq/GNH87c1 (This link is being provided for informational/ educational purposes only.) Blood Structure of peripheral vein / Unknown Venipuncture / Unknown 03/15/2024 12:39 PM EDT 03/15/2024 12:58 PM EDT Narrative ELIUD DOMÍNGUEZ - 03/16/2024 3:27 AM EDT [facility] Received Date: us Tobias Vogt MD LAB BLOOD ORDERABLES Final Result [facility] [address] [facility] 3rd Floor, [place] [address], [place] [phone] [employer] [address] 3rd Floor, [place] [address], [place] [phone] * Phosphorus (03/15/2024 12:39 PM EDT) Phosphorus 3.4 2.5 - 4.5 mg/dL 03/15/2024 1:45 PM EDT [employer] [facility] PATHOLOG[facility] LABORAT[facility] Blood Structure of peripheral vein / Unknown Venipuncture / Unknown 03/15/2024 12:39 PM EDT 03/15/2024 12:58 PM EDT us Tobias Vogt MD LAB BLOOD ORDERABLES Final Result Performing Organization Address City/[facility]/ZIP Co de Phone Number [email or web address] [address] [place] [address], * (ABNORMAL) Hemoglobin A1c (03/15/2024 12:39 PM EDT) Hemoglobin A1C 6.3(H) <5.7 % of total Hgb 03/16/2024 2:05 AM EDT [facility] Comment: For someone without known diabetes, a [...] (MG/DL) 134 mg/dL 03/16/2024 2:05 AM EDT [facility] eAG (MMOL/L) 7.4 mmol/L 03/16/2024 2:05 AM EDT [facility] Blood Structure of peripheral vein / Unknown Venipuncture / Unknown 03/15/2024 12:39 PM EDT 03/15/2024 12:59 PM EDT Narrative [facility] - 03/16/2024 2:05 AM EDT [facility] Received Date: us Tobias Vogt MD LAB BLOOD ORDERABLES Final Result [facility] [address] [facility] 3rd Floor, [place] [address], [facility] [address] [facility] 3rd Floor, [place] [address], from Last 3 Months or Most Recently Relevant to Health Maintenance [place] [id number] [facility] [place] [id number] [facility] Advance Directives Documents on File Type Date Recorded Patient Brand Leader Expl [facility] Proxy 03/20/2024 5:28 PM 10- Care Teams Cable Placer Relationship Specialty Start Date End Date Patient, Has No Pcp Or Ref DO NOT EDIT THIS RECORD VIA PROVIDER ON THE FLY PCP - General Manager Title 03/15/24
--- OUTSIDE RECORDS SUMMARY | 2024-09-14 11:54 | XMS_ITS | Encounter Summary ---
Author Organization [employer] Address [address] 7t [place] [address] Care Team Providers Care Graphics Artist Name Role Phone Macie Link DO Primary Care Provider [phone] Flor Clark PharmD Unavailable [phone] Reason for Visit * Reason Comments Med Refill Encounter Details Date Type Department Care Team ([facility] st Contact Info) Description 03/11/2023 Refill [facility] [address] [place] [address] Macie Link DO [address] [place] [address] Chronic neck pain; Anxiety Social History Tobacco [...] Description 09/26/2024 2:00 PM EDT Office Visit [facility] [address] [place] [address] Justin Anne, SHAY [address] [place] [address] 10/11/2024 9:00 AM EDT Medication Management [facility] [address] [place] [address] Flor Clark, PharmD [address] [place] [address] 11/13/2024 11:30 AM EDT Clinical Support [facility] [address] [place] [address] April Murrell RN 11/14/2024 2:00 PM EDT Office Visit [facility] [address] [place] [address] Eleni Shin [address] [place] [address] documented as of this encounter Visit Diagnoses Diagnosis Chronic neck pain Cervicalgia Anxiety Anxiety state, unspecified documented in this encounter Additional Health Concerns Assessment Noted Time PHQ-9 Depression Total Score: 2 07/06/19 23 9:23 AM EST documented as of this encounter Care Teams Graphics Artist Relationship Specialty Start Date End Date Macie Link DO [address] [place] [address] PCP - General Family Medicine 05/30/18 Flor Clark, Jaspreet [address] [place] [address] Pharmacist Internal Medicine 08/18/23 documented as of this encounter
--- OUTSIDE RECORDS SUMMARY | 2024-09-14 11:54 | XMS_ITS | Encounter Summary ---
Author Organization [employer] Address [address] [facility] 7t [place] [address] Care Team Providers Care Tax Examining Technician Name Role Phone Macie Link DO Primary Care Provider [phone] Flor Clark PharmD Unavailable [phone] Reason for Visit * Reason Comments Med Refill Encounter Details Date Type Department Care Team (Late st Contact Info) Description 12/12/2023 Refill [facility] [address] [place] [address] Macie Link DO [address] [place] [address] Anxiety; Chronic neck pain Social History Tobacco [...] Description 09/26/2024 2:00 PM EDT Office Visit [facility] ADULT DENTAL [address] [place] [address] Justin Anne, DMD [address] [place] [address] 10/11/2024 9:00 AM EDT Medication Management [facility] [address] [place] [address] Flor Clark, DerikD [address] [place] [address] 11/13/2024 11:30 AM EDT Clinical Support [facility] [address] [place] [address] April Murrell, PADILLA 11/14/2024 2:00 PM EDT Office Visit [facility]ENT[facility] [address] [place] [address] Eleni Shin [address] [place] [address] documented as of this encounter Goals Goal [...] documented as of this encounter Care Teams Tax Examining Technician Relationship Specialty Start Date End Date Macie Link DO [address] [place] [address] PCP - General Family Medicine 05/30/18 Flor Clark PharmD [address] [place] [address] Pharmacist Internal Medicine 08/18/23 documented as of this encounter
--- OUTSIDE RECORDS SUMMARY | 2024-09-14 11:54 | XMS_ITS | Encounter Summary ---
Author Organization [employer] Address [address] [facility] 7t [place] [address] Care Team Providers Care Handyperson Name Role Phone ArcadioMacie smith Primary Care Provider + [phone] Flor Clark PharmD Unavailable [phone] Reason for Visit * Reason Comments Med Refill Encounter Details Date Type Department Care Team ([facility] st Contact Info) Description 05/24/2024 Refill [facility] [address] [place] [address] Sobia Crooks MD 230 [place] [address] Chronic neck pain Social History Tobacco Use [...] your housing situation today? I have erendira analisa 09/15/[address] you li [...] 2:00 PM EDT Office Visit [facility] ADULT DENTAL [address] [place] [address] Justin Anne, DMD 230 [place] [address] 10/11/2024 9:00 AM EDT Medication Management [facility] [address] [place] [address] Flor Clark, DerikD [address] [place] [address] 11/13/2024 11:30 AM EDT Clinical Support [facility] [address] [place] [address] April Murrell, PADILLA 11/14/2024 2:00 PM EDT Office Visit [facility] [address] [place] [address] Eleni Shin 230 [place] [address] documented as of this encounter Goals Goal [...] documented as of this encounter Care Teams Handyperson Relationship Specialty Start Date End Date Macie Link DO 230 [place] [address] PCP - General Family Medicine 05/30/18 Flor Clark PharmD 230 [place] [address] Pharmacist Internal Medicine 08/18/23 documented as of this encounter
--- OUTSIDE RECORDS SUMMARY | 2024-09-14 11:54 | XMS_ITS | Encounter Summary ---
Author Organization [employer] Address [address] [facility] 7t [place] [address] Care Team Providers Care Singe Winder Name Role Phone Fariba Macie Primary Care Provider [phone] Flor Clark PharmD Unavailable [phone] Encounter Details Date Type Department Care Team ([facility] st Contact Info) Description 07/25/2024 Telephone [facility] ADULT DENTAL [address] [place] [address] Justin Anne, DMD 230 [place] [address] Social History Tobacco Use Types Packs/Day Years [...] Description 09/26/2024 2:00 PM EDT Office Visit [facility] ADULT DENTAL [address] [place] [address] Justin Anne, DMD 230 [place] [address] 10/11/2024 9:00 AM EDT Medication Management [facility] MED[facility] [address] [place] [address] Flor Clark PharmD [address] [place] [address] 11/13/2024 11:30 AM EDT Clinical Support [facility] [address] [place] [address] April Murrell, PADILLA 11/14/2024 2:00 PM EDT Office Visit [facility] ADULT DENTAL [address] [place] [address] Eleni Shin [address] [place] [address] documented as of this encounter Goals Goal [...] documented as of this encounter Care Teams Singe Winder Relationship Specialty Start Date End Date Macie Link DO 230 [place] [address] PCP - General Family Medicine 05/30/18 Flor Clark, Jaspreet 230 [place] [address] Pharmacist Internal Medicine 08/18/23 documented as of this encounter
--- OUTSIDE RECORDS SUMMARY | 2024-09-14 11:54 | XMS_ITS | Encounter Summary ---
Author Organization [employer] Address [address] [facility] [address] 7t [place] [address] Care Team Providers Care Hospice Chaplain Name Role Phone Macie Link DO Primary Care Provider [phone] Flor Clark PharmD Unavailable [phone] Reason for Visit * Reason Comments Med Refill Encounter Details Date Type Department Care Team ([facility] st Contact Info) Description 11/05/2023 Refill [facility] 230 [place] [address] Macie Link DO 230 [place] [address] Asthma, unspecified asthma severity, unspecified whether complicated, [...] Description 09/26/2024 2:00 PM EDT Office Visit [facility] ADULT DENTAL [address] [place] [address] Justin Anne, DMD 230 [place] [address] 10/11/2024 9:00 AM EDT Medication Management [facility] [address] [place] [address] Flor Clark, PharmD [address] [place] [address] 11/13/2024 11:30 AM EDT Clinical Support [facility] [address] [place] [address] April Murrell, PADILLA 11/14/2024 2:00 PM EDT Office Visit [facility]ULT D[facility] [address] [place] [address] Eleni Shin 230 [place] [address] documented as of this encounter Goals Goal [...] documented as of this encounter Care Teams Hospice Chaplain Relationship Specialty Start Date End Date Macie Link DO [address] [place] [address] PCP - General Family Medicine 05/30/18 Flor Clark PharmD [address] [place] [address] Pharmacist Internal Medicine 08/18/23 documented as of this encounter
--- OUTSIDE RECORDS SUMMARY | 2024-09-14 11:54 | XMS_ITS | Encounter Summary ---
Author Organization [employer] Address [address] [facility] [address] 7t [place] [address] Care Team Providers Care Clinical Biostatistician Name Role Phone Macie Link DO Primary Care Provider Flor Clark PharmD Unavailable [phone] Encounter Details Date Type Department Care Team ([facility] st Contact Info) Description 06/14/2023 Telephone [facility] 230 [place], [place] [phone] Macie Link DO 230 [place] [address] Social History Tobacco Use Types Packs/Day Years [...] Description 09/26/2024 2:00 PM EDT Office Visit [facility] ADULT DENTAL [address] [place] [address] Justin Anne, DMD [address] [place] [address] 10/11/2024 9:00 AM EDT Medication Management [facility] [address] [place] [address] Flor Clark, DerikD 230 [place] [address] 11/13/2024 11:30 AM EDT Clinical Support [facility] [address] [place] [address] April Murrell, RN 11/14/2024 2:00 PM EDT Office Visit [facility] ADULT D[facility]AL [address] [place] [address] Eleni Shin [address] [place] [address] documented as of this encounter Visit Diagnoses Not on filedocumented in this encounter Additional Health Concerns Assessment Noted Time PHQ-9 Depression Total Score: 13 024 9:15 AM EST documented as of this encounter Care Teams Clinical Biostatistician Relationship Specialty Start Date End Date Macie Link DO 230 [place] [address] PCP - General Family Medicine 05/30/18 Flor Clark PharmD [address] [place] [address] Pharmacist Internal Medicine 08/18/23 documented as of this encounter
--- OUTSIDE RECORDS SUMMARY | 2024-09-14 11:54 | XMS_ITS | Encounter Summary ---
Author Organization [employer] Address [address] [facility] [facility] [address] 7t [place] [address] Care Team Providers Care Health Support Specialist Name Role Phone Macie Link DO Primary Care Provider [phone] Flor Clark PharmD Unavailable [phone] Reason for Visit * Reason Comments Med Refill Encounter Details Date Type Department Care Team ([facility] st Contact Info) Description 06/03/2023 Refill [facility] [address] [place] [address] Macie Link DO 230 [place] [address] Anxiety Social History Tobacco Use Types Packs/Day [...] Description 09/26/2024 2:00 PM EDT Office Visit [facility] ADULT DENTAL [address] [place] [address] Justin Anne, DMD [address] [place] [address] 10/11/2024 9:00 AM EDT Medication Management [facility] [address] [place] [address] Flor Clark, PharmD 230 [place] [address] 11/13/2024 11:30 AM EDT Clinical Support [facility] [address] [place] [address] April Murrell, RN 11/14/2024 2:00 PM EDT Office Visit [facility] ADULT DENTAL [address] [place] [address] Eleni Shin [address] [place] [address] documented as of this encounter Visit Diagnoses Diagnosis Anxiety Anxiety state, unspecified documented in this encounter Additional Health Concerns Assessment Noted Time PHQ-9 Depression Total Score: 13 024 9:15 AM EST documented as of this encounter Care Teams Health Support Specialist Relationship Specialty Start Date End Date Macie Link DO 230 [place] [address] PCP - General Family Medicine 05/30/18 Flor Clark PharmD [address] [place] [address] Pharmacist Internal Medicine 08/18/23 documented as of this encounter
--- OUTSIDE RECORDS SUMMARY | 2024-09-14 11:54 | XMS_ITS | Encounter Summary ---
Author Organization [facility], Address [address] [place] [address] Phone Care Team Providers Care Debit Agent Name Role Phone Macie Link DO Primary Care Provider Unava ilable Encounter Details Date Type Department Care Team (Late st Contact Info) Description 11/27/2021 Documentation Only [facility], [address] [place] [address] Romario Ford MD [address] [place] [phone] Social History Tobacco Use Types Packs/Day Years [...] on filedocumented in this encounter Care Teams Debit Agent Relationship Specialty Start Date End Date Macie Link DO PCP - General 04/03/19 documented as of this encounter
--- OUTSIDE RECORDS SUMMARY | 2024-09-14 11:54 | XMS_ITS | Encounter Summary ---
Author Organization [employer] Address [address] [facility] 7t [place] [address] Care Team Providers Care Soap Grinder Name Role Phone ArcadioMacie smith Primary Care Provider [phone] Flor Clark PharmD Unavailable [phone] Reason for Visit * Reason Comments Med Refill Encounter Details Date Type Department Care Team ([facility] st Contact Info) Description 06/25/2024 Refill [facility] [address] [place] [address] Catherine Madera MD 230 [place] [address] Anxiety; Chronic neck pain Social History Tobacco [...] 2:00 PM EDT Office Visit [facility] ADULT DENTAL [address] [place] [address] Justin Anne, DMD 230 [place] [address] 10/11/2024 9:00 AM EDT Medication Management [facility] [address] [place] [address] Flor Clark, DerikD [address] [place] [address] 11/13/2024 11:30 AM EDT Clinical Support [facility] [address] [place] [address] April Murrell, PADILLA 11/14/2024 2:00 PM EDT Office Visit [facility] ADULT DENTAL [address] [place] [address] Eleni Shin 230 [place] [address] documented as of this encounter Goals Goal [...] documented as of this encounter Care Teams Soap Grinder Relationship Specialty Start Date End Date Macie Link DO 230 [place] [address] PCP - General Family Medicine 05/30/18 Flor Clark PharmD 230 [place] [address] Pharmacist Internal Medicine 08/18/23 documented as of this encounter
--- OUTSIDE RECORDS SUMMARY | 2024-09-14 11:54 | XMS_ITS | Encounter Summary ---
Author Organization [facility] Address [address] [facility] 7t [place] [address] Care Team Providers Care Wagon Drill Operator Name Role Phone Macie Link DO Primary Care Provider Flor Clark PharmD Unavailable Reason for Visit * Reason Comments Med Refill Encounter Details Date Type Department Care Team (Late st Contact Info) Description 01/13/2023 Refill [facility] [address] [place] [address] Macie Link DO 230 [place] [address] Chronic neck pain Social History Tobacco Use [...] 09/26/2024 2:00 PM EDT Office Visit [facility] ADULT DENTAL [address] [place] [address] Justin Anne DMD [address] [place] [address] 10/11/2024 9:00 AM EDT Medication Management [facility] [address] [place] [address] Flor Clark PharmD 230 [place] 11/13/2024 11:30 AM EDT Clinical Support [facility] [address] [place] [address] April Murrell, PADILLA 11/14/2024 2:00 PM EDT Office Visit [facility] ADULT D[facility] [address] [place] [address] Eleni Shin [address] [place] [address] documented as of this encounter Visit Diagnoses Diagnosis Chronic neck pain Cervicalgia documented in this encounter Additional Health Concerns Assessment Noted Time PHQ-9 Depression Total Score: 2 07/06/19 23 9:23 AM EST documented as of this encounter Care Teams Wagon Drill Operator Relationship Specialty Start Date End Date Macie Link DO [address] [place] [address] PCP - General Family Medicine 05/30/18 Flor Clark PharmD [address] [place] [address] [phone] Pharmacist Internal Medicine 08/18/23 documented as of this encounter
--- OUTSIDE RECORDS SUMMARY | 2024-09-14 11:54 | XMS_ITS | Encounter Summary ---
Author Organization [employer] Address [address] [facility] 7t [place] [address] Care Team Providers Care Viscera Washer Name Role Phone ArcadioMacie smith Primary Care Provider [phone] Flor Clark PharmD Unavailable [phone] Reason for Visit * Reason Comments Med Refill Encounter Details Date Type Department Care Team (Late st Contact Info) Description 07/26/2023 Refill [facility] 230 [place] [address] Catherine Madera MD 230 [place] [address] Anxiety; Chronic neck pain Social History Tobacco [...] Description 09/26/2024 2:00 PM EDT Office Visit [facility] ADULT DENTAL [address] [place] [address] Justin Anne, DMD 230 [place] [address] 10/11/2024 9:00 AM EDT Medication Management [facility] [address] [place] [address] Flor Clark, PharmD [address] [place] [address] 11/13/2024 11:30 AM EDT Clinical Support [facility] [address] [place] [address] April Murrell, PADILLA 11/14/2024 2:00 PM EDT Office Visit [facility] ADULT DENTAL [address] [place] [address] Eleni Shin [address] [place] [address] documented as of this encounter Visit Diagnoses Diagnosis Anxiety Anxiety state, unspecified Chronic neck pain Cervicalgia documented in this encounter Additional Health Concerns Assessment Noted Time PHQ-9 Depression Total Score: 13 024 9:15 AM EST documented as of this encounter Care Teams Viscera Washer Relationship Specialty Start Date End Date Macie Link DO 230 [place], [place] [phone] PCP - General Family Medicine 05/30/18 Flor Clark PharmD [address] [place] [address] Pharmacist Internal Medicine 08/18/23 documented as of this encounter
--- OUTSIDE RECORDS SUMMARY | 2024-09-14 11:54 | XMS_ITS | Encounter Summary ---
Author Organization [facility], Address [address] [place] [address] Phone Care Team Providers Care U.S. Representative Name Role Phone Macie Link DO Primary Care Provider Unava ilable Encounter Details Date Type Department Care Team (Late st Contact Info) Description 12/09/2021 Documentation Only [facility], [address] [place] [address] Romario Ford MD [address] [place] [phone] Social History Tobacco Use Types Packs/Day Years [...] on filedocumented in this encounter Care Teams U.S. Representative Relationship Specialty Start Date End Date Macie Link DO PCP - General 04/03/19 documented as of this encounter
[2024-09-14 13:28] LABS: Hematocrit 36.1 % (42.0-52.0); Hemoglobin 12.1 g/dl (14.0-18.0); Mean Corpuscular HGB Conc 33.5 g/dl (31.0-36.0); Mean Corpuscular Hemoglobin 31.8 pg (27.0-33.0); Mean Corpuscular Volume 94.8 fL (80.0-98.0); Mean Platelet Volume 11.5 fL (9.4-12.4); Platelet Count 197 X10*3/uL (160-400); Red Blood Count 3.81 X10*6/uL (4.60-5.80); Red Cell Distribution Width 13.8 % (11.0-16.0); White Blood Count 6.5 X10*3/uL (4.8-10.8)
[2024-09-14 13:41] LABS: Estimated Average Glucose 134 mg/dL; Hemoglobin A1C 148.6441 umol/L; Hemoglobin A1c % 6.3 % (<6.0); Total Hemoglobin (HGBA1C) 3239.4964 umol/L
[2024-09-14 21:08] LABS: Alanine Aminotransferase 69 U/L (0-40); Albumin Level 4.8 g/dL (3.5-5.0); Alkaline Phosphatase 169 U/L (39-117); Anion Gap 17 (12-20); Aspartate Amino Transferase 33 U/L (5-37); Bilirubin Direct 0.2 mg/dL (0.0-0.5); Bilirubin Total 0.7 mg/dL (0.0-1.0); Blood Urea Nitrogen 13 mg/dL (9-16); Calcium 9.9 mg/dL (8.4-10.2); Carbon Dioxide 29 mmol/L (22-29); Chloride 99 mmol/L (96-108); Cholesterol 98 mg/dL (<200); Estimated Glomerular Filt Rate 12; Free T4 (Free Thyroxine) 1.35 ng/dL (0.71-1.85); Glucose Random 135 mg/dL (60-115); HDL Cholesterol 27 mg/dL (>40); LDL Cholesterol Calculated 7 mg/dL (<100); Potassium 4.7 mmol/L (3.3-5.1); Sodium 140 mmol/L (135-145); Thyroid Stimulating Hormone 4.34 uIU/mL (0.32-4.0); Total Protein 7.9 g/dL (6.5-8.0); Triglycerides 321 mg/dL (<150)
[2024-09-19 12:29] LABS: Alpha Fetoprotein 1.3 ng/mL (<6.1)
== END 2024-09-14 10:49 | disposition home or self-care (01) ==
LOC: HO.HHCL 10:48
PROVIDERS: Visit Provider Family Medicine
DX: E11.22 Type 2 diabetes mellitus with diabetic chronic kidney disease (principal); N18.6 End stage renal disease; Z99.2 Dependence on renal dialysis; Z79.4 Long term (current) use of insulin
CPT/HCPCS: 36415; 80048; 80061; 80076; 82105; 82306; 83036; 84439; 84443; 85027

== ENCOUNTER 2024-10-04 08:02 | Outpatient (REF) | payer MEDICARE, MEDICAID, SELFPAY ==
--- NOTE | ~2024-10-04 | US_ITS ---
EXAMINATION: US ABDOMEN COMPLETE WITH LIVER ELASTOGRAPHY HISTORY: R74.01 - Elevation of levels of liver transaminase levels TECHNIQUE: Real-time grayscale ultrasound imaging of the abdomen was performed and images were reviewed. COMPARISON: Comparison is made with the prior examination dated 01/17/2024. FINDINGS: Liver: The right lobe of the liver measures 20.3 cm in size. The left lobe of the liver measures 6.8 cm in size. The liver demonstrates increased echotexture, consistent with steatosis. No focal mass or intrahepatic biliary ductal dilatation is identified. There is normal hepatopedal flow in the portal vein. Ultrasound elastography of the liver was performed with 10 separate measurements of the liver parenchyma with the patient in the supine position. Measurements were obtained approximately 2 cm below Dakota's capsule and perpendicular to the capsule. Images are of satisfactory quality. The median shear wave velocity is 1.79 m/s. The interquartile range/median (IQR/median) is 0.03. Gallbladder and biliary tree: The gallbladder is surgically absent. The common bile duct measures 8 mm. Kidneys: The right kidney is surgically absent. The left kidney measures 10.9 cm in length and demonstrates cysts in the interpolar region measuring 9 x 8 x 9 mm and 4 x 4 by 4 mm. There is a 2 mm nonobstructing calculus in the interpolar region. There is no hydronephrosis. Pancreas: The pancreatic head, neck, and body are unremarkable. The pancreatic tail is obscured by bowel gas. Spleen: The spleen is normal in size and contour, measuring 11.2 cm in length. Abdominal aorta and inferior vena cava: The visualized portions of the abdominal aorta and inferior vena cava are normal in caliber. There is no free fluid in the abdomen. US/US abdomen comp w elastography IMPRESSION: 1. Hepatomegaly and hepatic steatosis. 2. Status post right nephrectomy. Left renal cysts as described. 2 mm nonobstructing left renal calculus. The median shear wave velocity in the liver is 1.79 m/s, corresponding to a median liver stiffness of 9.81 kPa. The IQR/median value is 0.03. This is indicative of a quality data set. Findings are indicative of a high elastography value suggestive of compensated advanced chronic liver disease. REFERENCE: Society of Radiologists in Ultrasound Liver Stiffness Thresholds (2020): LIVER STIFFNESS THRESHOLDS: *Shear wave velocity less than 1.3 m/s (Liver Stiffness equal or less than 5 kPa): High probability of being normal. *Shear wave velocity less than 1.7 m/s (Liver Stiffness less than 9 kPa): In the absence of other known clinical signs, rules out compensated advanced chronic liver disease. *Shear wave velocity between 1.7-2.1 m/s (Liver Stiffness 9-13 kPa): Suggestive of compensated advanced chronic liver disease but need further test for confirmation. *Shear wave velocity between 2.1-2.4 m/s (Liver Stiffness 13-17 kPa): Rules in compensated advanced chronic liver disease. *Shear wave velocity greater than 2.4 m/s (Liver Stiffness over 17 kPa): Suggestive of clinically significant portal hypertension. QUALITY OF DATA SET: *IQR/Median value equal or less that 0.15 implies a quality data set. *IQR/Median value over 0.15 implies a poor quality data set. SIGNIFICANT CHANGE FROM PRIOR EXAM: Significant change if liver stiffness measurement is 10% or greater from prior exam. OTHER CONSIDERATIONS: The stage of liver fibrosis may be overestimated in the setting of acute hepatitis, liver inflammation, elevated liver function tests, hepatic vascular congestion, obstructive cholestasis, non-fasting state, and infiltrative diseases such as amyloidosis and lymphoma. In some patients with NAFLD, the liver stiffness thresholds for compensated advanced chronic liver disease may be lower. In causes other than viral hepatitis and NAFLD, liver stiffness thresholds are not well established. Electronically signed by: Eusebio Johnson MD 10/04/2024 09:10 AM EDT
--- OUTSIDE RECORDS SUMMARY | 2024-10-04 08:05 | XMS_ITS | Encounter Summary ---
Author Organization [facility], Address [address] [place] [address] Phone Care Team Providers Care Mannequin Sander And Finisher Name Role Phone Macie Link DO Primary Care Provider Unava ilable Encounter Details Date Type Department Care Team (Late st Contact Info) Description 09/24/2021 Documentation Only [facility], [address] [place] [address] Romario Ford MD [address] [place] [place] [phone] Social History Tobacco Use Types Packs/Day Years [...] on filedocumented in this encounter Care Teams Mannequin Sander And Finisher Relationship Specialty Start Date End Date Macie Link DO PCP - General 04/03/19 documented as of this encounter
--- OUTSIDE RECORDS SUMMARY | 2024-10-04 08:05 | XMS_ITS | Encounter Summary ---
Author Organization [facility], Address [address] [place] [address] Phone Care Team Providers Care Planning Division Superintendent Name Role Phone Macie Link DO Primary Care Provider Unava ilable Encounter Details Date Type Department Care Team (Late st Contact Info) Description 09/24/2021 Documentation Only [facility], [address] [place] [address] Romario Ford MD [address] [place] [phone] Social History Tobacco Use Types Packs/Day Years [...] filedocumented in this encounter Care Teams Planning Division Superintendent Relationship Specialty Start Date End Date Macie Link DO PCP - General 04/03/19 documented as of this encounter
--- OUTSIDE RECORDS SUMMARY | 2024-10-04 08:05 | XMS_ITS ---
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 Staging:Clinical stage from 09/10/2024:Stage IV(cM1c) - Signed by Pierce Au MD on 09/24/2024 ESRD (end stage renal disease) 03/05/2024 Overview (03/05/2024): Dialysis start 12/17/2021 Type 2 diabetes mellitus wit h kidney complication, with long-term current use of insulin 03/05/2024 Hypertension 03/05/2024 Renal cell carcinoma 03/05/2024 Cancer Staging:Pathologic stage from 09/03/2024:Stage I(pT1b, pN0, cM0) - Signed by Pierce Au MD on 09/24/2024 H/O right nephrectomy 03/05/2024 History of cholecystectomy 03/05/2024 H/O umbilical hernia repair 03/05/2024 Current Treatment and Therapy Plans No current plan information found. Past Treatment and Therapy Plans No past plan information found. Lifetime Dose Tracking * Chemical Lifetime Dose Automatic Entry Manual Entr y TotalDLP 1,501 mGy 1,501 mGy 0 mGy [id number] 21.5 mSv 21.5 mSv 0 mSv CTDIvol Max 18.2 mGy 18.2 mGy 0 mGy CTDIvol Min 14.8 mGy 14.8 mGy 0 mGy
--- OUTSIDE RECORDS SUMMARY | 2024-10-04 08:05 | XMS_ITS | Encounter Summary ---
Author Organization [facility], Address [address] [place] [address] Phone Care Team Providers Care Education Professional Name Role Phone Macie Link DO Primary Care Provider Unava ilable Encounter Details Date Type Department Care Team (Late st Contact Info) Description 10/23/2021 Documentation Only [facility], [address] [place] [address] Romario Ford MD [address] [place] [phone] Social History Tobacco Use Types Packs/Day Years [...] on filedocumented in this encounter Care Teams Education Professional Relationship Specialty Start Date End Date Macie Link DO PCP - General 04/03/19 documented as of this encounter
--- OUTSIDE RECORDS SUMMARY | 2024-10-04 08:05 | XMS_ITS | Encounter Summary ---
Author Organization [facility], Address [address] [place] [address] Phone Care Team Providers Care Sheet Manufacturing Supervisor Name Role Phone Macie Link DO Primary Care Provider Unava ilable Encounter Details Date Type Department Care Team (Late st Contact Info) Description 09/01/2021 Documentation Only [facility], [address] [place] [phone] Estefania Sung PA Social History Tobacco Use [...] on filedocumented in this encounter Care Teams Sheet Manufacturing Supervisor Relationship Specialty Start Date End Date Macie Link DO PCP - General 04/03/19 documented as of this encounter
--- OUTSIDE RECORDS SUMMARY | 2024-10-04 08:05 | XMS_ITS | Encounter Summary ---
Author Organization [facility] Address [address] [place] [address] Care Team Providers Care Multiple Effect Evaporator Operator Name Role Phone Patient, Has No Pcp Or Ref Primary Care Provider Unavailable Encounter Details Date Type Department Care Team (Late st Contact Info) Description 06/27/2024 Orders Only [facility] Interventional Radiology [address] [place] [address] Amanda Sweet MD [address] [place] [address] Social History Tobacco Use Types Packs/Day Years [...] Care Team (Late st Contact Info) Description 11/05/2024 4:00 PM EDT Telehealth [facility] 5th Floor [address] [place] [address] Pierce Au MD [address] [place] [address] 03/19/2025 9:00 AM EDT Follow-Up [facility] Renal Transplant [address] [place] [address] Louie Pablo MD [address] [place] [address] 03/19/2025 9:30 AM EDT Social Work [facility] Renal Transplant [address] [place] [address] Imani Livingston LICSW [address] [place], [place] [phone] documented as of this encounter Visit Diagnoses Not on filedocumented in this encounter Care Teams Multiple Effect Evaporator Operator Relationship Specialty Start Date End Date Patient, Has No Pcp Or Ref DO NOT EDIT THIS RECORD VIA PROVIDER ON THE FLY PCP - General Gas Fitter Helper 03/15/24 documented as of this encounter
--- OUTSIDE RECORDS SUMMARY | 2024-10-04 08:05 | XMS_ITS | Encounter Summary ---
Author Organization [facility], Address [address] [place] [address] Phone Care Team Providers Care Territory Sales Professional Name Role Phone Macie Link DO Primary Care Provider Unava ilable Encounter Details Date Type Department Care Team (Late st Contact Info) Description 07/10/2021 Documentation Only [facility], [address] [place] [address] Romario Ford MD [address] [place] [phone] Social History Tobacco Use Types Packs/Day Years [...] on filedocumented in this encounter Care Teams Territory Sales Professional Relationship Specialty Start Date End Date Macie Link DO PCP - General 04/03/19 documented as of this encounter
--- OUTSIDE RECORDS SUMMARY | 2024-10-04 08:05 | XMS_ITS | Encounter Summary ---
Author Organization [facility] Address [address] [place] [address] Care Team Providers Care Spanner Operator Name Role Phone Patient, Has No Pcp Or Ref Primary Care Provider Unavailable Encounter Details Date Type Department Care Team (Late st Contact Info) Description 06/28/2024 Orders Only [facility] Nuclear Medicine [address] [place] [address] Kandice Pacheco MD [address] [place] [address] Social History Tobacco Use Types Packs/Day Years [...] Info) Description 11/05/2024 4:00 PM EDT Telehealth [facility] 5th Floor [address] [place] [address] Pierce Au MD [address] [place] [address] 03/19/2025 9:00 AM EDT Follow-Up [facility] Renal Transplant [address] [place] [address] Louie Pablo MD [address] [place] [address] 03/19/2025 9:30 AM EDT Social Work [facility] Renal Transplant [address] [place], [place] [phone] Imani Livingston LICSW [address] [place], [place] [phone] documented as of this encounter Visit Diagnoses Not on filedocumented in this encounter Care Teams Spanner Operator Relationship Specialty Start Date End Date Patient, Has No Pcp Or Ref DO NOT EDIT THIS RECORD VIA PROVIDER ON THE FLY PCP - General Administrative Support Coordinator 03/15/24 documented as of this encounter
--- OUTSIDE RECORDS SUMMARY | 2024-10-04 08:05 | XMS_ITS | Encounter Summary ---
Author Organization [facility], Address [address] [place] [address] Phone Care Team Providers Care Golf Teacher Name Role Phone Macie Link DO Primary Care Provider Unava ilable Encounter Details Date Type Department Care Team (Late st Contact Info) Description 09/21/2021 Documentation Only [facility], [address] [place] [address] Romario Ford MD [address] [place] [phone] Social History Tobacco Use Types Packs/Day Years [...] on filedocumented in this encounter Care Teams Golf Teacher Relationship Specialty Start Date End Date Macie Link DO PCP - General 04/03/19 documented as of this encounter
--- OUTSIDE RECORDS SUMMARY | 2024-10-04 08:05 | XMS_ITS | Encounter Summary ---
Author Organization [facility], Address [address] [place] [address] Phone Care Team Providers Care Loan Service Officer Name Role Phone Macie Link DO Primary Care Provider Unava ilable Encounter Details Date Type Department Care Team (Late st Contact Info) Description 07/30/2021 Documentation Only [facility], [address] [place] [address] Romario Ford MD [address] [place] [phone] Social History Tobacco Use Types Packs/Day Years [...] on filedocumented in this encounter Care Teams Loan Service Officer Relationship Specialty Start Date End Date Macie Link DO PCP - General 04/03/19 documented as of this encounter
--- OUTSIDE RECORDS SUMMARY | 2024-10-04 08:05 | XMS_ITS | Encounter Summary ---
Author Organization [facility], Address [address] [place] [address] Phone Care Team Providers Care Cylinder Press Operator Helper Name Role Phone Macie Link DO Primary Care Provider Unava ilable Encounter Details Date Type Department Care Team (Late st Contact Info) Description 09/06/2021 Documentation Only [facility], [address] [place] [address] Romario Ford MD [address] [place] [phone] Social History Tobacco Use Types Packs/Day Years [...] on filedocumented in this encounter Care Teams Cylinder Press Operator Helper Relationship Specialty Start Date End Date Macie Link DO PCP - General 04/03/19 documented as of this encounter
--- OUTSIDE RECORDS SUMMARY | 2024-10-04 08:05 | XMS_ITS | Encounter Summary ---
Author Organization [facility], Address [address] [place] [address] Phone Care Team Providers Care Expenditure Requisition Clerk Name Role Phone Macie Link DO Primary Care Provider Unava ilable Encounter Details Date Type Department Care Team (Late st Contact Info) Description 09/06/2021 Documentation Only [facility], [address] [place] [address] Romario Ford MD [address] [place] [phone] Social History Tobacco Use Types Packs/Day Years [...] on filedocumented in this encounter Care Teams Expenditure Requisition Clerk Relationship Specialty Start Date End Date Macie Link DO PCP - General 04/03/19 documented as of this encounter
--- OUTSIDE RECORDS SUMMARY | 2024-10-04 08:05 | XMS_ITS | Encounter Summary ---
Author Organization [facility], Address [address] [place] [address] Phone Care Team Providers Care Patrol Sergeant Name Role Phone Macie Link DO Primary Care Provider Unava ilable Encounter Details Date Type Department Care Team (Late st Contact Info) Description 09/04/2021 Documentation Only [facility], [address] [place] [address] Romario Ford MD [address] [place] [phone] Social History Tobacco Use Types Packs/Day Years [...] on filedocumented in this encounter Care Teams Patrol Sergeant Relationship Specialty Start Date End Date Macie Link DO PCP - General 04/03/19 documented as of this encounter
--- OUTSIDE RECORDS SUMMARY | 2024-10-04 08:06 | XMS_ITS | Encounter Summary ---
Author Organization [employer] Address [address] [facility] 7t [place] [address] Care Team Providers Care Guest Relations Receptionist Name Role Phone FaribaMacie Primary Care Provider [phone] Flor Clark PharmD Unavailable [phone] Reason for Visit * Reason Comments Med Refill Encounter Details Date Type Department Care Team (Late st Contact Info) Description 06/25/2024 Refill [facility] [address] [place] [address] Catherine Madera MD [address] [place] [address] Anxiety; Chronic neck pain Social History Tobacco [...] Care Team (Late st Contact Info) Description 10/11/2024 9:00 AM EDT Medication Management [facility] [address] [place] [address] Flor Clark, PharmD [address] [place] [address] 10/17/2024 2:30 PM EDT Office Visit [facility]ULT [facility] [address] [place] [address] Justin Anne, SHAY [address] [place] [address] 11/13/2024 11:30 AM EDT Clinical Support [facility] [address] [place] [address] April Murrell, PADILLA 11/14/2024 2:00 PM EDT Office Visit [facility] [address] [place] [address] Eleni Shin [address] [place] [address] 12/28/2024 1:30 PM EDT Office Visit [facility] [address] [place] [address] Dulce Whelan, OD [address] [place] [address] documented as of this encounter Goals Goal Patient Goal Type Associated Problems Recent Progress Patient-Stated? Author Hemoglobin A1c < 7 Result Component 6.3( 5 10:51 AM EDT) No Flor Clark PharmD Note: [...] documented as of this encounter Care Teams Guest Relations Receptionist Relationship Specialty Start Date End Date Macie Link DO [address] [place] [address] PCP - General Family Medicine 05/30/18 Flor Clark PharmD [address] [place] [address] Pharmacist Internal Medicine 08/18/23 documented as of this encounter
--- OUTSIDE RECORDS SUMMARY | 2024-10-04 08:06 | XMS_ITS | Encounter Summary ---
Author Organization [employer] Address [address] [facility] 7t [place] [address] Care Team Providers Care Plaster Die Maker Name Role Phone Macie Link DO Primary Care Provider Flor Clark PharmD Unavailable [phone] Reason for Visit * Reason Comments Med Refill Encounter Details Date Type Department Care Team (Late st Contact Info) Description 03/05/2024 Refill [facility] [address] [place] [address] Macie Link DO [address] [place] [address] Seasonal allergic rhinitis, unspecified trigger Social History [...] Description 10/11/2024 9:00 AM EDT Medication Management [facility] [address] [place] [address] Flor Clark, PharmD [address] [place] [address] 10/17/2024 2:30 PM EDT Office Visit [facility] ADULT DENTAL [address] [place] [address] Justin Anne, SHAY [address] [place] [address] 11/13/2024 11:30 AM EDT Clinical Support [facility] MEDICINE [address] [place] [address] April Murrell, PADILLA 11/14/2024 2:00 PM EDT Office Visit [facility] ADULT DENTAL [address] [place] [address] Eleni Shin [address] [place] [address] 12/28/2024 1:30 PM EDT Office Visit [facility] OPTOMETRY [address] [place] [address] Dulce Whelan, OD [address] [place] [address] documented as of this encounter Goals Goal [...] documented as of this encounter Care Teams Plaster Die Maker Relationship Specialty Start Date End Date Macie Link DO [address] [place] [address] PCP - General Family Medicine 05/30/18 Flor Clark PharmD [address] [place] [address] Pharmacist Internal Medicine 08/18/23 documented as of this encounter
--- OUTSIDE RECORDS SUMMARY | 2024-10-04 08:06 | XMS_ITS | Encounter Summary ---
Author Organization [employer] Address 75 [facility] 7t [place] [address] Care Team Providers Care Affiliate Marketing Coordinator Name Role Phone FaribaMacie Primary Care Provider [phone] Flor Clark PharmD Unavailable [phone] Reason for Visit * Reason Comments Med Refill Encounter Details Date Type Department Care Team (Late st Contact Info) Description 05/24/2024 Refill [facility] [address] [place] [address] Sobia Crooks MD [address] [place] [address] Chronic neck pain Social History Tobacco Use [...] Description 10/11/2024 9:00 AM EDT Medication Management [facility] MED[facility]INE [address] [place] [address] Flor Clark, PharmD [address] [place] [address] 10/17/2024 2:30 PM EDT Office Visit [facility] ADULT DENTAL [address] [place] [address] Justin Anne, SHAY [address] [place] [address] 11/13/2024 11:30 AM EDT Clinical Support [facility] MEDICINE [address] [place] [address] April Murrell, PADILLA 11/14/2024 2:00 PM EDT Office Visit [facility] ADULT DENTAL [address] [place] [address] Eleni Shin [address] [place] [address] 12/28/2024 1:30 PM EDT Office Visit [facility] OPTOMETRY [address] [place] [address] Dulce Whelan, OD [address] [place] [address] documented as of this encounter Goals Goal [...] documented as of this encounter Care Teams Affiliate Marketing Coordinator Relationship Specialty Start Date End Date Macie Link DO [address] [place] [address] PCP - General Family Medicine 05/30/18 Flor Clark PharmD [address] [place] [address] Pharmacist Internal Medicine 08/18/23 documented as of this encounter
--- OUTSIDE RECORDS SUMMARY | 2024-10-04 08:06 | XMS_ITS | Encounter Summary ---
Author Organization [employer] Address 75 [facility] 7t [place] [address] Care Team Providers Care Stretcher Leveler Operator Name Role Phone Macie Link DO Primary Care Provider Flor Clark PharmD Unavailable [phone] Reason for Visit * Reason Comments Med Refill Encounter Details Date Type Department Care Team (Late st Contact Info) Description 12/12/2023 Refill [facility] [address] [place] [address] Macie Link DO [address] [place] [address] Anxiety; Chronic neck pain Social History Tobacco [...] Description 10/11/2024 9:00 AM EDT Medication Management [facility] [address] [place] [address] Flor Clark, PharmD [address] [place] [address] 10/17/2024 2:30 PM EDT Office Visit [facility] ADULT DENTAL [address] [place] [address] Justin Anne, SHAY [address] [place] [address] 11/13/2024 11:30 AM EDT Clinical Support [facility] MED[facility] [address] [place] [address] April Murrell, PADILLA 11/14/2024 2:00 PM EDT Office Visit [facility] ADULT DENTAL [address] [place] [address] Eleni Shin [address] [place] [address] 12/28/2024 1:30 PM EDT Office Visit [facility] OPTOMETRY [address] [place] [address] Dulce Whelan, OD 230 [place] [address] documented as of this encounter Goals Goal [...] documented as of this encounter Care Teams Stretcher Leveler Operator Relationship Specialty Start Date End Date Macie Link DO [address] [place] [address] PCP - General Family Medicine 05/30/18 Flor Clark PharmD [address] [place] [address] Pharmacist Internal Medicine 08/18/23 documented as of this encounter
--- OUTSIDE RECORDS SUMMARY | 2024-10-04 08:06 | XMS_ITS | Encounter Summary ---
Author Organization [employer] Address [address] [facility] 7t [place] [address] Care Team Providers Care Button Station Worker Name Role Phone Macie Link DO Primary Care Provider [phone] Flor Clark PharmD Unavailable [phone] Reason for Visit * Reason Comments Med Refill Encounter Details Date Type Department Care Team (Late st Contact Info) Description 02/06/2024 Refill [facility] [address] [place] [address] Macie Link DO [address] [place] [address] Chronic neck pain; Anxiety Social History Tobacco [...] Description 10/11/2024 9:00 AM EDT Medication Management [facility] [address] [place] [address] Flor Clark, PharmD [address] [place] [address] 10/17/2024 2:30 PM EDT Office Visit [facility] ADULT DENTAL [address] [place] [address] Justin Anne, SHAY [address] [place] [address] 11/13/2024 11:30 AM EDT Clinical Support [facility] [address] [place] [address] April Murrell, PADILLA 11/14/2024 2:00 PM EDT Office Visit [facility] ADULT DENTAL [address] [place] [address] Eleni Shin [address] [place] [address] 12/28/2024 1:30 PM EDT Office Visit [facility] OPTOMET[facility] [address] [place] [address] Dulce Whelan, OD [address] [place] [address] documented as of this encounter Goals Goal [...] documented as of this encounter Care Teams Button Station Worker Relationship Specialty Start Date End Date Macie Link DO [address] [place] [address] PCP - General Family Medicine 05/30/18 Flor Clark PharmD [address] [place] [address] Pharmacist Internal Medicine 08/18/23 documented as of this encounter
--- OUTSIDE RECORDS SUMMARY | 2024-10-04 08:06 | XMS_ITS | Encounter Summary ---
Author Organization [facility], Address [address] [place] [address] Phone Care Team Providers Care Filling Layer Up Name Role Phone Macie Link DO Primary Care Provider Unava ilable Encounter Details Date Type Department Care Team (Late st Contact Info) Description 07/19/2022 Documentation Only [facility], [address] [place] [address] [place] [address] [place] [address] Social History Tobacco Use Types [...] on filedocumented in this encounter Care Teams Filling Layer Up Relationship Specialty Start Date End Date Macie Link DO PCP - General 04/03/19 documented as of this encounter
--- OUTSIDE RECORDS SUMMARY | 2024-10-04 08:06 | XMS_ITS | Encounter Summary ---
Author Organization [employer] Address [address] [facility] 7t [place] [address] Care Team Providers Care Research Hydrologist Name Role Phone Fariba Macie Primary Care Provider PuFlor quinones PharmD Unavailable [phone] Encounter Details Date Type Department Care Team (Late st Contact Info) Description 05/25/2022 Orders Only [facility] MED & PEDS [address] [place] [address] Macie Stiles LPN Social History Tobacco Use [...] Department Care Team (Late Contact Info) Description 10/11/2024 9:00 AM EDT Medication Management [facility] MEDICINE [address] [place] [address] Puia, Flor, PharmD [address] [place] [address] 10/17/2024 2:30 PM EDT Office Visit [facility] ADULT DENTAL [address] [place] [address] Justin Anne, SHAY [address] [place] [address] 11/13/2024 11:30 AM EDT Clinical Support [facility] MEDICINE [address] [place] [address] April Murrell RN 11/14/2024 2:00 PM EDT Office Visit [facility] ADULT DENTAL [address] [place] [address] Eleni Shin [address] [place] [address] 12/28/2024 1:30 PM EDT Office Visit [facility] OPTOMETRY [address] [place] [address] Tip, Dulce, OD [address] [place] [address] documented as of this encounter Visit Diagnoses Not on filedocumented in this encounter Care Teams Research Hydrologist Relationship Specialty Start Date End Date Macie Link DO [address] [place] [address] PCP - General Family Medicine 05/30/18 Flor Clark PharmD [address] [place] [address] Pharmacist Internal Medicine 08/18/23 documented as of this encounter
--- OUTSIDE RECORDS SUMMARY | 2024-10-04 08:06 | XMS_ITS | Encounter Summary ---
Author Organization [employer] Address [address] [facility] 7t [place] [address] Care Team Providers Care Rapid Transit Operator Name Role Phone Macie Link DO Primary Care Provider [phone] Flor Clark PharmD Unavailable [phone] Reason for Visit * Reason Comments Med Refill Encounter Details Date Type Department Care Team (Late st Contact Info) Description 06/01/2023 Refill [facility] [address] [place] [address] Macie Link DO [address] [place] [address] Anxiety; Chronic neck pain Social History Tobacco [...] Description 10/11/2024 9:00 AM EDT Medication Management [facility] MED[facility] [address] [place] [address] Flor Clark, PharmD [address] [place] [address] 10/17/2024 2:30 PM EDT Office Visit [facility] ADULT DENTAL [address] [place] [address] Justin Anne, SHAY [address] [place] [address] 11/13/2024 11:30 AM EDT Clinical Support [facility] MED[facility] [address] [place] [address] April Murrell, PADILLA 11/14/2024 2:00 PM EDT Office Visit [facility] ADULT DENTAL [address] [place] [address] Eleni Shin [address] [place] [address] 12/28/2024 1:30 PM EDT Office Visit [facility] OPTOMETRY [address] [place] [address] Dulce Whelan, OD [address] [place] [address] documented as of this encounter Visit Diagnoses Diagnosis Anxiety Anxiety state, unspecified Chronic neck pain Cervicalgia documented in this encounter Additional Health Concerns Assessment Noted Time PHQ-9 Depression Total Score: 13 024 9:15 AM EST documented as of this encounter Care Teams Rapid Transit Operator Relationship Specialty Start Date End Date Macie Link DO [address] [place] [address] PCP - General Family Medicine 05/30/18 Flor Clark PharmD [address] [place] [address] Pharmacist Internal Medicine 08/18/23 documented as of this encounter
--- OUTSIDE RECORDS SUMMARY | 2024-10-04 08:06 | XMS_ITS | Encounter Summary ---
Author Organization [employer] Address 75 [facility] 7t [place] [address] Care Team Providers Care An/Syq 13 Nav/C2 Operator Name Role Phone ArcadioMacie smith Primary Care Provider PuFlor quinones PharmD Unavailable Encounter Details Date Type Department Care Team (Late st Contact Info) Description 05/18/2022 Orders Only [facility] [address] [place] [address] Mariella Diallo LPN Social History Tobacco Use [...] Description 10/11/2024 9:00 AM EDT Medication Management [facility] [address] [place] [address] Puia, Flor, PharmD [address] [place] [address] 10/17/2024 2:30 PM EDT Office Visit [facility] [address] [place] [address] Justin Anne DMD [address] [place] [address] 11/13/2024 11:30 AM EDT Clinical Support [facility] [address] [place] [address] April Murrell RN 11/14/2024 2:00 PM EDT Office Visit [facility] [address] [place] [address] Eleni Shin [address] [place] [address] 12/28/2024 1:30 PM EDT Office Visit [facility] [address] [place] [address] Tip, Dulce, OD [address] [place] [address] documented as of this encounter Visit Diagnoses Not on filedocumented in this encounter Care Teams An/Syq 13 Nav/C2 Operator Relationship Specialty Start Date End Date Macie Link DO [address] [place] [address] PCP - General Family Medicine 05/30/18 Flor Clark PharmD [address] [place], [place] [address] Pharmacist Internal Medicine 08/18/23 documented as of this encounter
--- OUTSIDE RECORDS SUMMARY | 2024-10-04 08:06 | XMS_ITS | Encounter Summary ---
Author Organization [facility] Address [address] [place] [address] Care Team Providers Care Composition Molder Name Role Phone Patient, Has No Pcp Or Ref Primary Care Provider Unavailable Encounter Details Date Type Department Care Team (Late st Contact Info) Description 09/27/2024 Orders Only [facility] Interventional Radiology [address] [place] [address] Cami Garland PA [address] [place] [address] Social History Tobacco Use Types Packs/Day Years Used Date Smoking Tobacco: Never Smokeless Tobacco: Never Alcohol Use Standard [...] Info) Description 11/05/2024 4:00 PM EDT Telehealth [facility] 5th Floor [address] [place] [address] Pierce Au MD [address] [place] [address] 03/19/2025 9:00 AM EDT Follow-Up [facility] Renal Transplant [address] [place] [address] Louie Pablo MD [address] [place] [address] 03/19/2025 9:30 AM EDT Social Work [facility] Renal Transplant [address] [place] [address] Imani Livingston LICSW [address] [place] [address] documented as of this encounter Visit Diagnoses Not on filedocumented in this encounter Care Teams Composition Molder Relationship Specialty Start Date End Date Patient, Has No Pcp Or Ref DO NOT EDIT THIS RECORD VIA PROVIDER ON THE FLY PCP - General Petroleum Plant Operator 03/15/24 documented as of this encounter
--- OUTSIDE RECORDS SUMMARY | 2024-10-04 08:06 | XMS_ITS | Encounter Summary ---
Author Organization [employer] Address 75 [facility] 7t [place] [address] Care Team Providers Care Laboratory Asst Name Role Phone Macie Link DO Primary Care Provider Flor Clark PharmD Unavailable [phone] Reason for Visit * Reason Comments Med Refill Encounter Details Date Type Department Care Team (Late st Contact Info) Description 08/20/2024 Refill [facility] MEDICINE [address] [place] [address] Macie Link DO [address] [place] [address] Chronic neck pain; Anxiety Social History Tobacco [...] Description 10/11/2024 9:00 AM EDT Medication Management [facility] MEDICINE [address] [place] [address] Flor Clark, PharmD [address] [place] [address] 10/17/2024 2:30 PM EDT Office Visit [facility] ADULT DENTAL [address] [place] [address] Justin Anne, SHAY [address] [place] [address] 11/13/2024 11:30 AM EDT Clinical Support [facility] MEDICINE [address] [place] [address] April Murrell, PADILLA 11/14/2024 2:00 PM EDT Office Visit [facility] ADULT DENTAL [address] [place] [address] Eleni Shin [address] [place] [address] 12/28/2024 1:30 PM EDT Office Visit [facility] OPTOMETRY [address] [place] [address] Dulce Whelan, OD 230 [place] [address] documented as of this encounter Goals Goal [...] documented as of this encounter Care Teams Laboratory Asst Relationship Specialty Start Date End Date Macie Link DO [address] [place] [address] PCP - General Family Medicine 05/30/18 Flor Clark PharmD [address] [place] [address] Pharmacist Internal Medicine 08/18/23 documented as of this encounter
--- OUTSIDE RECORDS SUMMARY | 2024-10-04 08:06 | XMS_ITS | Encounter Summary ---
Author Organization [email or web address] [facility] Address [address] [facility] 7t [place] [address] Care Team Providers Care Circuits Engineer Name Role Phone Macie Link DO Primary Care Provider Flor Clark PharmD Unavailable Encounter Details Date Type Department Care Team (Late st Contact Info) Description 06/10/2022 Telephone [facility] MEDICINE [address] [place] [address] Macie Link DO [address] [place] [address] Social History Tobacco Use Types Packs/Day Years [...] Description 10/11/2024 9:00 AM EDT Medication Management [facility] MEDICINE [address] [place] [address] Flor Clark, PharmD [address] [place] [address] 10/17/2024 2:30 PM EDT Office Visit [facility] ADULT DENTAL [address] [place] [address] Justin Anne, SHAY [address] [place] [address] 11/13/2024 11:30 AM EDT Clinical Support [facility] MEDICINE [address] [place] [address] April Murrell, RN 11/14/2024 2:00 PM EDT Office Visit [facility] ADULT DENTAL [address] [place] [address] Eleni Shin [address] [place] [address] 12/28/2024 1:30 PM EDT Office Visit [facility] OPTOMETRY [address] [place] [address] Dulce Whelan, GELA [address] [place] [address] documented as of this encounter Visit Diagnoses Not on filedocumented in this encounter Care Teams Circuits Engineer Relationship Specialty Start Date End Date Macie Link DO [address] [place] [address] PCP - General Family Medicine 05/30/18 Flor Clark PharmD [address] [place] [address] Pharmacist Internal Medicine 08/18/23 documented as of this encounter
--- OUTSIDE RECORDS SUMMARY | 2024-10-04 08:06 | XMS_ITS | Encounter Summary ---
Author Organization [employer] Address [address] [facility] 7t [place] [address] Care Team Providers Care In Room Dining Server Name Role Phone Macie Link DO Primary Care Provider Flor Clark PharmD Unavailable [phone] Reason for Visit * Reason Comments Med Refill Encounter Details Date Type Department Care Team (Late st Contact Info) Description 12/13/2023 Refill [facility] MEDICINE [address] [place] [address] Macie Link DO [address] [place] [address] Anxiety; Chronic neck pain Social History Tobacco [...] 9:00 AM EDT Medication Management [facility] MEDICINE [address] [place] [address] Flor Clark, PharmD [address] [place] [address] 10/17/2024 2:30 PM EDT Office Visit [facility] ADULT DENTAL [address] [place] [address] Justin Anne, SHAY [address] [place] [address] 11/13/2024 11:30 AM EDT Clinical Support [facility] MEDICINE [address] [place] [address] April Murrell, PADILLA 11/14/2024 2:00 PM EDT Office Visit [facility] ADULT DENTAL [address] [place] [address] Eleni Shin [address] [place] [address] 12/28/2024 1:30 PM EDT Office Visit [facility] OPTOMETRY [address] [place] [address] Dulce Whelan, OD [address] [place] [address] documented as of this encounter Goals Goal [...] documented as of this encounter Care Teams In Room Dining Server Relationship Specialty Start Date End Date Macie Link DO [address] [place] [address] PCP - General Family Medicine 05/30/18 Flor Clark PharmD [address] [place] [address] Pharmacist Internal Medicine 08/18/23 documented as of this encounter
--- OUTSIDE RECORDS SUMMARY | 2024-10-04 08:06 | XMS_ITS | Encounter Summary ---
Author Organization [employer] Address [address] [facility] 7t [place] [address] Care Team Providers Care Shed Hand Name Role Phone Macie Link DO Primary Care Provider Flor Clark PharmD Unavailable Encounter Details Date Type Department Care Team (Late Contact Info) Description 07/27/2022 Abstract [facility] MEDICINE [address] [place] [address] Macie Link DO [address] [place] [address] Social History Tobacco Use Types Packs/Day Years [...] Upcoming Encounters Date Type Department Care Team ([facility] Contact Info) Description 10/11/2024 9:00 AM EDT Medication Management [facility] MEDICINE [address] [place] [address] Flor Clark PharmD [address] [place] [address] 10/17/2024 2:30 PM EDT Office Visit [facility] ADULT DENTAL [address] [place] [address] Justin Anne, DMD [address] [place] [address] 11/13/2024 11:30 AM EDT Clinical Support [facility] MEDICINE [address] [place] [address] April Murrell, PADILLA 11/14/2024 2:00 PM EDT Office Visit [facility] ADULT DENTAL [address] [place] [address] Eleni Shin [address] [place] [address] 12/28/2024 1:30 PM EDT Office Visit [facility] OPTOMETRY [address] [place] [address] Tip, Dulce, OD [address] [place] [address] documented as of this encounter Visit Diagnoses Not on filedocumented in this encounter Additional Health Concerns Assessment Noted Time PHQ-9 Depression Total Score: 2 07/06/19 23 9:23 AM EST documented as of this encounter Care Teams Shed Hand Relationship Specialty Start Date End Date Macie Link DO [address] [place] [address] PCP - General Family Medicine 05/30/18 Flor Clark PharmD [address] [place] [address] Pharmacist Internal Medicine 08/18/23 documented as of this encounter
--- OUTSIDE RECORDS SUMMARY | 2024-10-04 08:06 | XMS_ITS | Encounter Summary ---
Author Organization [facility], Address [address] [place] [address] Phone Care Team Providers Care Irrigation System Operator Name Role Phone Macie Link DO Primary Care Provider Unava ilable Reason for Visit * Reason Comments Med Refill Encounter Details Date Type Department Care Team (Late st Contact Info) Description 07/23/2022 Refill [facility], [address] [place] [address] Romario Ford MD [address] [facility] [place] [id number] Social History Tobacco Use Types Packs/Day Years [...] on filedocumented in this encounter Care Teams Irrigation System Operator Relationship Specialty Start Date End Date Macie Link DO PCP - General 04/03/19 documented as of this encounter
--- OUTSIDE RECORDS SUMMARY | 2024-10-04 08:06 | XMS_ITS | Encounter Summary ---
Author Organization [facility], Address [address] [place] [address] Phone Care Team Providers Care Paper Ruler Name Role Phone Macie Link DO Primary Care Provider Unava ilable Encounter Details Date Type Department Care Team (Late st Contact Info) Description 10/19/2023 Documentation Only [facility], [address] [place] [address] Jimena Gibson [place] [address] [place] [address] Social History Tobacco Use Types [...] on filedocumented in this encounter Care Teams Paper Ruler Relationship Specialty Start Date End Date Macie Link DO PCP - General 04/03/19 documented as of this encounter
--- OUTSIDE RECORDS SUMMARY | 2024-10-04 08:06 | XMS_ITS | Encounter Summary ---
Author Organization [employer] Address [address] [facility] 7t [place] [address] Care Team Providers Care Railcar Carpenter Name Role Phone Macie Link DO Primary Care Provider [phone] Flor Clark PharmD Unavailable [phone] Reason for Visit * Reason Comments Med Refill Encounter Details Date Type Department Care Team (Late st Contact Info) Description 11/05/2023 Refill [facility] MEDICINE [address] [place] [address] Macie Link DO [address] [place] [address] Asthma, unspecified asthma severity, unspecified whether complicated, [...] Description 10/11/2024 9:00 AM EDT Medication Management [facility] MEDICINE [address] [place] [address] Flor Clark, PharmD [address] [place] [address] 10/17/2024 2:30 PM EDT Office Visit [facility] ADULT DENTAL [address] [place] [address] Justin Anne, SHAY [address] [place] [address] 11/13/2024 11:30 AM EDT Clinical Support [facility] MEDICINE [address] [place] [address] April Murrell, RN 11/14/2024 2:00 PM EDT Office Visit [facility] ADULT DENTAL [address] [place] [address] Eleni Shin [address] [place] [address] 12/28/2024 1:30 PM EDT Office Visit [facility] OPTOMETRY [address] [place] [address] Dulce Whelan, OD [address] [place] [address] documented as of this encounter Goals Goal [...] documented as of this encounter Care Teams Railcar Carpenter Relationship Specialty Start Date End Date Macie Link DO [address] [place] [address] PCP - General Family Medicine 05/30/18 Flor Clark PharmD [address] [place] [address] Pharmacist Internal Medicine 08/18/23 documented as of this encounter
--- OUTSIDE RECORDS SUMMARY | 2024-10-04 08:06 | XMS_ITS | Encounter Summary ---
Author Organization [employer] Address [address] [facility] 7t [place] [address] Care Team Providers Care Antique Dealer Name Role Phone Macie Link DO Primary Care Provider Flor Clark PharmD Unavailable [phone] Reason for Visit * Reason Comments Med Refill Encounter Details Date Type Department Care Team ([facility] st Contact Info) Description 05/24/2024 Refill [facility] MEDICINE [address] [place] [address] Macie Link DO [address] [place] [address] Anxiety Social History Tobacco Use Types Packs/Day [...] Description 10/11/2024 9:00 AM EDT Medication Management [facility] MEDICINE [address] [place] [address] Flor Clark, PharmD [address] [place] [address] 10/17/2024 2:30 PM EDT Office Visit [facility] ADULT DENTAL [address] [place] [address] Justin Anne, SHAY [address] [place] [address] 11/13/2024 11:30 AM EDT Clinical Support [facility] MEDICINE [address] [place] [address] April Murrell, PADILLA 11/14/2024 2:00 PM EDT Office Visit [facility] ADULT DENTAL [address] [place] [address] Eleni Shin [address] [place] [address] 12/28/2024 1:30 PM EDT Office Visit [facility] OPTOMETRY [address] [place] [address] Dulce Whelan, OD [address] [place] [address] documented as of this encounter Goals Goal Patient Goal Type Associated Problems Recent Progress Patient-Stated? Author Hemoglobin A1c < 7 Result Component 6.3( 5 10:51 AM EDT) No Flor Clark, Jaspreet Note: [...] documented as of this encounter Care Teams Antique Dealer Relationship Specialty Start Date End Date Macie Link DO [address] [place] [address] PCP - General Family Medicine 05/30/18 Flor Clark, Jaspreet [address] [place] [address] Pharmacist Internal Medicine 08/18/23 documented as of this encounter
--- OUTSIDE RECORDS SUMMARY | 2024-10-04 08:06 | XMS_ITS | Encounter Summary ---
Author Organization [employer] Address [address] [facility] 7t [place] [address] Care Team Providers Care Computer System Specialist Name Role Phone Macie Link DO Primary Care Provider Flor Clark PharmD Unavailable Reason for Visit * Reason Onset Date Comments Durable Medical Equipment 05/10/2022 Encounter Details Date Type Department Care Team (Late st Contact Info) Description 05/10/2022 Telephone [facility] MEDICINE [address] [place] [address] Macie Link DO [address] [place] [address] Durable Medical Equipment Social History Tobacco Use [...] of Glucerna * Telephone Encounter - Xiao Dena - 05/10/2022 1:45 PM EST Tc from jesus from [facility] requesting status on Glucerna . States pt has tried reaching L&C and no response . Also caller is requesting a adjustable position bed. Best contact # [phone] documented in this encounter Plan of Treatment Upcoming Encounters Date Type Department Care Team (Late st Contact Info) Description 10/11/2024 9:00 AM EDT Medication Management [facility] MEDICINE [address] [place] [address] Flor Clark, PharmD [address] [place] [address] 10/17/2024 2:30 PM EDT Office Visit [facility] ADULT DENTAL [address] [place] [address] Justin Anne, DMD [address] [place] [address] 11/13/2024 11:30 AM EDT Clinical Support [facility] MEDICINE [address] [place] [address] April Murrell, PADILLA 11/14/2024 2:00 PM EDT Office Visit [facility] ADULT DENTAL [address] [place] [address] Eleni Shin [address] [place] [address] 12/28/2024 1:30 PM EDT Office Visit [facility] OPTOMETRY [address] [place] [address] Dulce Whelan, OD [address] [place] [address] documented as of this encounter Visit Diagnoses Not on filedocumented in this encounter Care Teams Computer System Specialist Relationship Specialty Start Date End Date Macie Link DO [address] [place] [address] PCP - General Family Medicine 05/30/18 Flor Clark, Jaspreet [address] [place] [address] Pharmacist Internal Medicine 08/18/23 documented as of this encounter
--- OUTSIDE RECORDS SUMMARY | 2024-10-04 08:06 | XMS_ITS | Encounter Summary ---
Author Organization [employer] Address [address] [facility] 7t [place] [address] Care Team Providers Care Pilot Captain Name Role Phone Macie Link DO Primary Care Provider [phone] Flor Clark PharmD Unavailable [phone] Reason for Visit * Reason Comments Med Refill Encounter Details Date Type Department Care Team ([facility] st Contact Info) Description 05/04/2024 Refill [facility] MEDICINE [address] [place] [address] Macie Link DO [address] [place] [address] Hypothyroidism, unspecified type; Chronic GERD Social History [...] Description 10/11/2024 9:00 AM EDT Medication Management [facility] MEDICINE [address] [place] [address] Flor Clark, PharmD [address] [place] [address] 10/17/2024 2:30 PM EDT Office Visit [facility] ADULT DENTAL [address] [place] [address] Justin Anne, SHAY [address] [place] [address] 11/13/2024 11:30 AM EDT Clinical Support [facility] MEDICINE [address] [place] [address] April Murrell, PADILLA 11/14/2024 2:00 PM EDT Office Visit [facility] ADULT DENTAL [address] [place] [address] Eleni Shin [address] [place] [address] 12/28/2024 1:30 PM EDT Office Visit [facility] OPTOMETRY [address] [place] [address] Dulce Whelan, GELA [address] [place] [address] documented as of this encounter Goals Goal [...] documented as of this encounter Care Teams Pilot Captain Relationship Specialty Start Date End Date Macie Link DO [address] [place] [address] PCP - General Family Medicine 05/30/18 Flor Clark PharmD [address] [place] [address] Pharmacist Internal Medicine 08/18/23 documented as of this encounter
--- OUTSIDE RECORDS SUMMARY | 2024-10-04 08:06 | XMS_ITS | Clinical Summary ---
Author Organization [employer] Address [address] [place] [address] Care Team Providers Care Entry Level Account Executive Name Role Phone FaribaMacie Primary Care Provider [phone] Flor Clark PharmD Unavailable [phone] Allergies No known active allergies Medications * This document contains information received from the source organization and may not represent a complete record from that organization. sevelamer carbonate (Renvela) 800 MG tablet TAKE 2 TABLETS BY MOUTH THREE TIMES DAILY WITH MEALS Active naloxone (Narcan) 4 mg/0.1 mL nasal spray FOR SUSPECTED OPIOID OVERDOSE. SPRAY 0.1mL IN ONE NOSTRIL. REPEAT IN ALTERNATE NOSTRIL 2-3 MINUTES IF NEEDED. SEEK MEDICAL ATTENTION IMMEDIATELY EVEN IF PATIENT RESPONDS. 2 each 3 023 Active Eliquis 5 MG tablet TAKE 1 TABLET BY MOUTH TWICE DAILY IN THE MORNING AND IN THE EVENING Active calcitriol (Rocaltrol) 0.25 MCG capsule TAKE 1 CAPSULE BY MOUTH ON MON, WED & Tue 023 Active amiodarone (Pacerone) 200 MG tablet Take 200 mg by mouth Once per day. Active carvedilol (Coreg) 12.5 MG tablet Active Methoxy PEG-Epoetin Beta (MIRCERA IJ) 75 mcg. Active cetirizine (ZyrTEC) 10 MG tablet Take 0.5 tablets (5 mg) by mouth Once per day. 15 tablet 11 024 2024 Active amLODIPine (Norvasc) 10 MG tabletIndicatio ns:Primary hypertension Take 1 tablet (10 mg) by mouth in the morning. 90 tablet 1 024 Active lidocaine (Lidoderm) 5 % patchIndication s:Chronic neck pain Apply 1 patch topically See administration instructions. Remove & discard patch within 12 hours or as directed by . 30 patch 5 024 Active Continuous Glucose Commercial Finance Manager (FreeStyle Gurmeet 2 [place]) deviceIndicatio ns:Type 2 diabetes mellitus with chronic kidney disease on chronic dialysis, with long-term current use of insulin (CMS/[facility]) Use for continuous glucose monitoring per package directions 1 each 024 Active ipratropium (Atrovent) 0.03 % nasal spray USE 2 SPRAYS IN EACH NOSTRIL THREE TIMES DAILY DIRECTED 30 mL 11 024 Active albuterol (Ventolin HFA) 108 (90 Base) MCG/ACT inhalerIndicati ons:Asthma, unspecified asthma severity, unspecified whether complicated, unspecified whether persistent INHALE 2 PUFFS BY MOUTH EVERY 4 TO 6 HOURS NEEDED FOR WHEEZING OR SHORTNESS OF BREATH 18 g 11 024 Active Continuous Glucose Sensor (FreeStyle Gurmeet 2 Sensor) miscIndications :Type 2 diabetes mellitus with chronic kidney disease on chronic dialysis, with long-term current use of insulin ([facility]) USE DIRECTED TO TEST BLOOD SUGAR EVERY 8 HOURS CHANGE EVERY 14 DAYS 6 each 3 024 Active cyanocobalamin (Vitamin B-12) 1000 MCG tabletIndicatio [...] complication, with long-term current use of insulin (CMS/[facility]) TEST BLOOD SUGAR 3 TIMES PER [...] daily, as directed 100 each 025 Active Viagra 100 MG tabletIndicatio ns:Erectile dysfunction, unspecified erectile dysfunction type TAKE 1 TABLET 1 HOUR BEFORE SEXUAL RELATIONS ONCE DAILY NEEDED. 10 tablet 025 Active Pentips Generic Pen Oglesby 32G X 4 MM miscIndications :Type 2 [...] three times daily 1 kit 025 Active Semaglutide, 2 MG/DOSE, (Ozempic, 2 MG/DOSE,) 8 MG/3ML solution pen-injectorInd ications:Type 2 diabetes mellitus with chronic kidney disease on chronic dialysis, with long-term current use of insulin ([facility]) Inject 0.75 mL (2 mg) under the skin 1 (one) time per week. 3 mL 11 025 Active insulin glargine (Lantus SoloStar) 100 UNIT/ML penIndications: Type 2 diabetes mellitus with chronic kidney disease on chronic dialysis, with long-term current use of insulin (CMS/[facility]) INJECT 22 UNITS SUBCUTANEOUSLY ONCE DAILY 15 mL 3 025 Active zolpidem (Ambien) 10 MG tabletIndicatio ns:Anxiety TAKE 1 TABLET BY MOUTH AT BEDTIME NEEDED FOR SLEEP 28 tablet 025 Active clonazePAM (KlonoPIN) 1 MG tabletIndicatio ns:Anxiety Take 1 tablet (1 mg) by mouth 2 times daily for 28 days. 56 tablet 025 2024 Active oxyCODONE-aceta minophen (Percocet) 10-325 MG tabletIndicatio ns:Chronic neck pain TAKE 1 TABLET BY MOUTH EVERY 4 HOURS NEEDED FOR SEVERE PAIN 168 tablet Active Diclofenac Sodium 1 % gel APPLY 2 GRAMS TOPICALLY TO AFFECTED AREA(S) TWICE DAILY NEEDED FOR PAIN 100 g 2 025 Active clotrimazole (Lotrimin) 1 % cream APPLY TOPICALLY TO AFFECTED AREA(S) TWICE DAILY IN THE MORNING AND IN THE EVENING 60 g Active levothyroxine (Synthroid, Levoxyl) 137 MCG tablet Take 1 tablet by mouth every morning, 30 minutes before any other medications or food. 90 tablet 3 025 Active Diclofenac Sodium 1 % gel APPLY 2 GRAMS TOPICALLY TO AFFECTED AREA(S) TWICE DAILY NEEDED FOR PAIN 100 g 5 024 2024 Discontinued clotrimazole (Lotrimin) 1 % cream APPLY TO THE AFFECTED AREA(S) TWICE DAILY IN THE MORNING AND IN THE EVENING 60 g 025 2024 Discontinued amoxicillin (Amoxil) 500 MG capsule Take 4 caps 1 hour prior dental procedure 12 capsule 025 2024 Discontinued(I neffective) zolpidem (Ambien) 10 MG tabletIndicatio ns:Anxiety TAKE 1 TABLET BY MOUTH AT BEDTIME NEEDED FOR SLEEP 28 tablet 025 2024 Discontinued(R eorder (will not trigger notification to Pharmacy)) oxyCODONE-aceta minophen (Percocet) 10-325 MG tabletIndicatio ns:Chronic neck pain Take 1 tablet by mouth every 4 (four) hours if needed for severe pain. 168 tablet 025 2024 Discontinued clonazePAM (KlonoPIN) 1 MG tabletIndicatio ns:Anxiety Take 1 tablet (1 mg) by mouth 2 times daily for 28 days. 56 tablet 025 2024 Discontinued(R eorder (will not trigger notification to Pharmacy)) chlorhexidine (Peridex) 0.12 % solution Use 15 mL in the mouth or throat if needed in the morning, at noon, and at bedtime (PROPHYLAXIS) for up to 5 days. 110 mL 025 2024 acetaminophen (Tylenol) 500 MG tablet Take 1 tablet (500 mg) by mouth every 8 (eight) hours if needed for mild pain or moderate pain for up to 5 days. 15 tablet 025 2024 Active Problems Problem Noted Date Diagnosed Date Hemiplegia and hemiparesis f ollowing cerebral infarction affecting left non-dominant side 05/08/2024 Hypertensive heart and chron ic kidney disease with heart failure and with stage 5 chronic kidney disease, or end stage renal disease 05/08/2024 rn long term care (current) use of insulin 05/08/2024 Type 2 [...] in intervention, Patient to reach out to [facility] team as needed, and Comply with medication. [...] Encounters Date Type Department Care Team Description 10/03/2024 Telephone [facility] [address] [facility] [place] [facility] [place] [address] Macie Link, DME from [employer] 10/03/2024 Refill [facility] [address] [facility] [place] [address] Macie Link DO Primary hypertension 09/28/2024 Refill [facility] [address] [facility] [place] [address] Macie Link DO 09/26/2024 2:00 PM EDT Office Visit [facility] [address] [facility] [place] [address] Justin Anne, DMD 09/25/2024 Refill [facility] [address] [place] [address] Macei Link DO 09/18/2024 Telephone [facility] [address] [facility] [place] [address] Macie Link DO 09/18/2024 Refill [facility] [address] [place] [address] Macie Link DO 09/18/2024 Refill [facility] [address] [place] [address] Macie Link DO Chronic neck pain; Anxiety 09/14/2024 Telephone [facility] [address] [place] [address] Macie Link DO telephone call; Durable Medical Equipment ([employer] Kevin Form: [employer]) 09/13/2024 Telephone [facility] [address] [place] [address] Macie Link DO telephone call 09/12/2024 Refill [facility] [address] [place] [address] Macie Link DO Anxiety 09/11/2024 9:45 AM EDT Office Visit [facility] [address] [place] [address] Macie Link DO Type 2 diabetes mellitus with chronic kidney disease on chronic dialysis, with long-term current use of insulin ([facility]) 09/11/2024 Telephone [facility] [address] [place] [address] Macie Link DO telephone call 09/11/2024 Travel 09/10/2024 Telephone [facility] [address] [place] [address] Macie Link DO Durable Medical Equipment 09/04/2024 Travel 08/30/2024 8:00 AM EDT Office Visit [facility] [address] [place] [address] Justin Anne, SHAY 08/24/[address] [address] Macie Link DO Prior Authorization (Alan BATRES Request: Lidocaine 5% Patch) 08/20/2024 Refill [facility] [address] [place] [address] Macie Link DO Anxiety; Chronic neck pain 08/20/[address] [address] Macie Link DO Chronic neck pain; Anxiety 08/20/[address] [address] Macie Link DO med refill 08/20/[address] [address] Cassie Jeronimo MD Chronic neck pain; Anxiety 08/17/2024 Orders Only GENERIC EXTERNAL DATA DEPARTMENT Provider, Generic External Data 08/16/2024 Orders Only [facility] External Provider, [facility] 08/16/2024 Refill [facility] [address] [place] [address] Bhavani Rojas, PADILLA Type 2 diabetes mellitus with chronic kidney disease on chronic dialysis, with long-term current use of insulin ([facility]) 08/15/2024 1:30 PM EDT Office Visit [facility] [address] [facility] [place] [address] Justin Anne, DMD 08/08/2024 Telephone [facility] [place], [place] [address] Macie Link DO Prior Authorization (Lizzeth BATRES Requesd: Lidocaine 5% Patch) 08/08/2024 Refill [facility] [place], [place] [address] Macie Link DO Hypothyroidism, unspecified type; Chronic GERD 08/06/2024 Telephone [facility] [place] [address] Macie Link DO Durable Medical Equipment (DME Request: [employer]) 08/02/2024 Telephone [facility] [place] [address] Macie Link DO telephone call 08/02/2024 Travel 07/26/2024 1:30 PM EST Office Visit [facility] [address] [facility] [place] [address] Justin Anne, DMD 07/26/2024 Telephone [facility] [place] [address] Macie Link DO Appointment Request 07/25/2024 Telephone [facility] [address] [facility] [place] [address] Justin Anne, DMD 07/24/2024 10:00 AM EST Office Visit [facility] [place] [address] Hancock-Headley, Karmen, DDS Bruxism (Primary Dx); Open fracture of tooth, initial encounter 07/21/2024 Refill [facility] [place] [address] Macie Link DO Type 2 diabetes mellitus with other specified complication, with long-term current use of insulin ([facility]) 07/18/2024 Refill [facility] [place] [address] Macie Link DO Anxiety; Chronic neck pain; Erectile dysfunction, unspecified erectile dysfunction type from Last 3 Months Immunizations Name Administration [...] Sign Reading Time Taken Comments Blood Pressure 132/74 09/26/2024 2:09 PM EDT Pulse 70 09/26/2024 2:09 PM EDT Temperature 37.1 ??C (98.7 ??F) 09/11/2024 [...] 10/11/2024 9:00 AM EDT Medication Management [facility] [address] [place] [address] Flor Clark, PharmD [address] [place] [address] 10/17/2024 2:30 PM EDT Office Visit [facility] [address] [place] [address] Justin Anne, SHAY [address] [place] [address] 11/13/2024 11:30 AM EDT Clinical Support [facility] [address] [place] [address] April Murrell, PADILLA 11/14/2024 2:00 PM EDT Office Visit [facility] [address] [place] [address] Eleni Shin [address] [place] [address] 12/28/2024 1:30 PM EDT Office Visit [facility] [address] [place] [address] Dulce Whelan, OD [address] [place] [address] Health Maintenance Due Date Last Done Comments [...] 11/03/2023, 06/0 10/2023, 11/03/2023, Additional history exists Colonoscopy 03/11/2025 02/23/2022, 02/25/2016 Colorectal Cancer Screening 03/11/2025 Diabetes: Hemoglobin A1C 03/16/2025 025, 09/11/2024, 09/04/2024, Additional history exists Dental X-Ray: Bitewings 03/20/2025 03/19/20 24, 03/09/2024, 12/11/2014, Additional history exists Alcohol/Substance Use Screening 09/11/2025 09/11/2024 Depression Screening 09/11/2025 09/11/2024, 09/12/19 SDOH Screening 09/11/2025 09/11/2024 Lipid Panel 09/14/2025 09/14/2024, 06/0 10/2023, 12/09/2020 Tobacco Screening 09/26/2025 09/26/2024 Dental X-Ray: Full Mouth 03/20/2027 03/19/2024, 11/27 DTaP/Tdap/Td Vaccines (3 - Td or Tdap) 02/24/2032 02/23/2022, 02/04/2012, 11/10/2000, Additional history exists Hepatitis C Screening Completed 12/09/2020, 020 Zoster [...] Hemoglobin A1c < 7 Result Component 6.3( 10:51 AM EDT) No Flor Clark, Jaspreet Note: A1c value is falsely low d/t dialysis. Ordered fructosamine value 08/18/23 and once resulted will use to calculate a more accurate A1c Record your blood sugar as directed Result Component No Flor Clark, DerikD Note: Use CGM, ensuring sensor is scanned [...] Name Priority Date/Time Associated Diagnosis Comments 20 CROWN PREP Routine 09/26/2024 2:00 PM EDT ALPHA FETOPROTEIN, TUMOR MARKER Routine 09/14/2024 10:51 AM EDT Type 2 diabetes mellitus with chronic kidney disease on chronic dialysis, with long-term current use of insulin ([facility]) CBC Routine 09/14/2024 10:51 AM EDT Type 2 diabetes mellitus with chronic kidney disease on chronic dialysis, with long-term current use of insulin ([facility]) BASIC METABOLIC PANEL Routine 09/14/2024 10:51 AM EDT Type 2 diabetes mellitus with chronic kidney disease on chronic dialysis, with long-term current use of insulin (CMS/HCC) HEMOGLOBIN A1C Routine 09/14/2024 10:51 AM EDT Type 2 diabetes mellitus with chronic kidney disease on chronic dialysis, with long-term current use of insulin (CMS/HCC) HEPATIC FUNCTION PANEL Routine 10:51 AM EDT Type 2 diabetes mellitus with chronic kidney disease on chronic dialysis, with long-term current use of insulin (CMS/HCC) TSH Routine 09/14/2024 10:51 AM EDT Type 2 diabetes mellitus with chronic kidney disease on chronic dialysis, with long-term current use of insulin (CMS/HCC) LIPID PANEL, STANDARD Routine 09/14/2024 10:51 AM EDT Type 2 diabetes mellitus with chronic kidney disease on chronic dialysis, with long-term current use of insulin (CMS/HCC) VITAMIN D,25-OH,TOTAL,IA Routine 09/14/2024 10:51 AM EDT Type 2 diabetes mellitus with chronic kidney disease on chronic dialysis, with long-term current use of insulin (CMS/HCC) T4, FREE Routine 09/14/2024 10:51 AM EDT Type 2 diabetes mellitus with chronic kidney disease on chronic dialysis, with long-term current use of insulin (CMS/HCC) POCT GLYCATED HEMOGLOBIN, TOTAL Routine 09/11/2024 10:10 AM EDT Type 2 diabetes mellitus with chronic kidney disease on chronic dialysis, with long-term current use of insulin (CMS/HCC) POCT GLUCOSE Routine 09/11/2024 10:10 AM EDT Type 2 diabetes mellitus with chronic kidney disease on chronic dialysis, with long-term current use of insulin (CMS/HCC) POCT GLYCATED HEMOGLOBIN, TOTAL Routine 09/04/2024 2:40 PM EDT Type 2 diabetes mellitus with chronic kidney disease on chronic dialysis, with long-term current use of insulin (CMS/HCC) NO CHARGE PROCEDURE Routine 08/30/2024 8 :00 [...] Bruxism Open fracture of tooth, initial encounter INTRAORAL - COMPLETE SERIES OF RADIOGRAPHIC IMAGES Routine 03/19/2024 3:00 PM EDT PERIODIC ORAL EVALUATION - ESTABLISHED PATIENT Routine 03/19/2024 3:00 PM EDT HM COLONOSCOPY Routine 02/23/2022 7:37 AM EDT ZZZ HISTORICAL HEPATITIS C AB W/REFL TO HCV RNA, QN, PCR Routine 12/09/2020 10:36 AM EDT PROPHYLAXIS - ADULT Routine 02/09/2013 1 2:00 AM EDT from Last 3 Months or Most Recently Relevant to Health Maintenance Results * Vitamin D, 25-Hydroxy, Total, Immunoassay (09/14/2024 10:51 AM EDT) Vitamin D 25-OH Total 53.0 >30 ng/mL [facility] Comment: Health Based Reference Values*< 20 ??ng/mL ??Mvqicfgiz50-86 ng/mL ??Insufficient> 30 ??ng/mL ??Sufficient*Tung NAJERA. N Engl J Med. 2007;357:266-280There is no well-established upper level of normal vitamin Dlevels. Some laboratories use 50 ng/mL as an upper limit ofnormal. However, toxicity is patient-dependent and may occurat any level. Careful correlation with the patient'spresentation is necessary and, if there is concern forvitamin D toxicity, treatment should be consideredirrespective of the serum level.Care must be taken in interpreting Vitamin D results fromdifferent laboratories and methodologies. ??Published datademonstrated that results from patients undergoinghemodialysis may show a negative bias when tested withvarious automated 25-OH vitamin D assays when compared toLC- MS/MS.When testing samples from patients whose predominant form ofVitamin D is Vitamin D2, such as patients receiving VitaminD2 supplementation, results that are subtherapeutic shouldbe confirmed with another method such as LC-MS/MS. Blood Venous blood specimen / Unknown 09/14/2024 10:51 AM EDT 09/14/2024 8:17 PM EDT Macie Link DO LAB BLOOD ORDERABLES Final R esult [facility] [address] [place] [phone] * Alpha-Fetoprotein, Tumor Marker (09/14/2024 10:51 AM EDT) Alpha Fetoprotein 1.3 <6.1 ng/mL [facility] Comment:This test was perfor med using the Dipti Coulterchemiluminescent method. Values obtained fromdifferent assay methods cannot be usedinterchangeably. AFP levels, regardless ofvalue, should not be interpreted as absoluteevidence of the presence or absence of disease.THIS TEST WAS PERFORMED AT:[facility] [place] [id number] SPARKS MD Blood Venous blood specimen / Unknown 09/14/2024 10:51 AM EDT 09/14/2024 1:03 PM EDT Macie Link DO LAB BLOOD ORDERABLES Final R esult Performing Organization Address City/[facility]/ZIP Co de Phone Number [facility] [address] [place] [address] [phone] * (ABNORMAL) CBC (09/14/2024 10:51 AM EDT) White Blood Count 6.5 4.8 - 10.8 X10*3/uL [facility] Red Blood Count 3.81(L) 4.60 - 5.80 X10*6/uL [facility] Hemoglobin 12.1(L) 14.0 - 18.0 g/dl [facility] Hematocrit 36.1(L) 42.0 - 52.0 % [facility] Mean Corpuscular Volume 94.8 80.0 - 98.0 fL [facility] Mean Corpuscular Hemoglobin 31.8 27.0 - 33.0 pg [facility] Mean Corpuscular HGB Conc 33.5 31.0 - 36.0 g/dl [facility] Red Cell Distribution Width 13.8 11.0 - 16.0 % [facility] Platelet Count 197 160 - 400 X10*3/uL [facility] Mean Platelet Volume 11.5 9.4 - 12.4 fL [facility] NRBC Pct Auto 0.0 0.0 - 0.2 /100WBC [facility] NRBC Abs Auto 0.000 0.0 - 0.012 X10*3/uL [facility] Blood Venous blood specimen / Unknown 09/14/2024 10:51 AM EDT 09/14/2024 1:08 PM EDT us Macie Link DO LAB BLOOD ORDERABLES Final R esult Performing Organization Address City/[facility]/ZIP Co de Phone Number [facility] [address] [place] [phone] [phone] * (ABNORMAL) TSH (09/14/2024 10:51 AM EDT) Pathologist [facility] Thyroid Stimulating Hormone 4.34(H) 0.32 - 4.0 uIU/mL [facility] Comment:Note: A sustained TS H level above 2.5 uIU/mL may warrant further investigation. TSH 3rd Generation ([facility]) Blood Venous blood specimen / Unknown 09/14/2024 10:51 AM EDT 09/14/2024 8:17 PM EDT Macie Ervindestineyalfonso DO LAB BLOOD ORDERABLES Final R esult Performing Organization Address City/[facility]/ZIP Co de Phone Number [facility] [address] [place] [phone] * T4, Free (09/14/2024 10:51 AM EDT) Free T4 (Free Thyroxine) 1.35 0.71 - 1.85 ng/dL [facility] Blood Venous blood specimen / Unknown 09/14/2024 10:51 AM EDT 09/14/2024 8:17 PM EDT Macie Ervinsarah LAB BLOOD ORDERABLES Final R esult Performing Organization Address [facility] Co de Phone Number [facility] [address] [place] [phone] * (ABNORMAL) Hemoglobin A1c (09/14/2024 10:51 AM EDT) Hemoglobin A1c 6.3(H) <6.0 % [facility] Comment:Hemoglobin A1C Refer ence Range Adults: 4.8 - 6.0 % Non diabetic: < 6.0 % Goal: < 7.0 %Additional Action Suggested: > 8.0 %Note: Hemoglobin A1c results are invalid for patients with abnormal amounts of HbF. Blood transfusions may impact the HbA1c concentration in the patient sample. Estimated Average Glucose 134 mg/dL [facility] Comment:eAG = Estimated ave rage glucose which is %A1C expressed asaverage glucose, using the formula of the [id number]-[id number] Glucose study (ADAG), Diabetes Care, Vol.31,#8,2007 Blood Venous blood specimen / Unknown 09/14/2024 10:51 AM EDT 09/14/2024 1:08 PM EDT Macie Ervindestineyalfonso LAB BLOOD ORDERABLES Final R esult Performing Organization Address [facility] Co de Phone Number [facility] [address] [place] [phone] [phone] * (ABNORMAL) Hepatic Function Panel (09/14/2024 10:51 AM EDT) Only the most recent of2 resultswithin the time period is included. Bilirubin, Total 0.7 0.0 - 1.0 mg/dL [facility] Bilirubin, Direct 0.2 0.0 - 0.5 mg/dL [facility] Aspartate Amino Transferase 33 5 - 37 U/L [facility] Alanine Aminotransferase 69(H) 0 - 40 U/L [facility] Total Protein 7.9 6.5 - 8.0 g/dL [facility] Albumin Level 4.8 3.5 - 5.0 g/dL [facility] Alkaline Phosphatase 169(H) 39 - 117 U/L [facility] Blood Venous blood specimen / Unknown 09/14/2024 10:51 AM EDT 09/14/2024 8:17 PM EDT Macie Fariba LAB BLOOD ORDERABLES Final R esult Performing Organization Address [facility]/ZIP Co de Phone Number [facility] [address] [place] [phone] [phone] * (ABNORMAL) Lipid Panel, Standard (09/14/2024 10:51 AM EDT) Triglycerides 321(H) <150 mg/dL [facility] Comment:Desirable Triglyceri de: less than 150 mg/dLBorderline High Triglyceride 150-199 mg/dLHigh Triglyceride: 200-499 mg/dLVery High Triglyceride: greater than or equal to 5OO mg/dL Cholesterol 98 <200 mg/dL [facility] Comment:Desirable Cholestero l: less than 200 mg/dLBorderline High Cholesterol: 200-239 mg/dLHigh Cholesterol: greater than 239 mg/dL LDL Cholesterol Calculated 7 <100 mg/dL [facility] Comment:Desirable LDL: less than 100 mg/dLNear Optimal/Above Optimal LDL: 110- 129 mg/dLBorderline High LDL: 130-159 mg/dLHigh LDL: 160-189 mg/dLVery High LDL: greater than or equal to 190 mg/dL HDL Cholesterol 27(L) >40 mg/dL [facility] Comment:Desirable HDL: great er than 40 mg/dL Note: This HDL assay may give artificially low results in patients with liver disease. Blood Venous blood specimen / Unknown 09/14/2024 10:51 AM EDT 09/14/2024 8:17 PM EDT us Macie Link DO LAB BLOOD ORDERABLES Final R esult [facility] [address] [place], [place] [phone] * (ABNORMAL) Basic Metabolic Panel (09/14/2024 10:51 AM EDT) Sodium 140 135 - 145 mmol/L [facility] Potassium 4.7 3.3 - 5.1 mmol/L [facility] Chloride 99 96 - 108 mmol/L [facility] Carbon Dioxide 29 22 - 29 mmol/L [facility] Anion Gap 17 12 - 20 [facility] Urea Nitrogen (BUN) 13 9 - 16 mg/dL [facility] Creatinine, Serum 5.08(HH) 0.5 - 1.4 mg/dL [facility] Comment:Critical value for t est(s): CHRIS Results called to neetu back by: [facility] [place] Person calling: NGUYENQDate: 09/14/24 Time: 2040 Estimated Glomerular Filt Rate 12 [facility] Comment:Chronic Kidney Disea se: Estimated GFR < 60 mL/min/1.20m4Snxsxl Kidney Disease: Estimated GFR < 15 mL/min/1.73m2 Glucose 135(H) 60 - 115 mg/dL [facility] Calcium 9.9 8.4 - 10.2 mg/dL [facility] Blood Venous blood specimen / Unknown 09/14/2024 10:51 AM EDT 09/14/2024 8:17 PM EDT Macie Link DO LAB BLOOD ORDERABLES Final R esult [facility] [address] [place] [phone] * (ABNORMAL) POCT HGB A1C (09/11/2024 10:10 [...] POC 135 60 - 200 mg/dL QC [employer] Lot # [id number] Lot# Expiration Date Blood Capillary blood specimen / Unknown 09/11/2024 10:10 AM EDT Macie Link DO POINT OF CARE TEST ENTER/EVENS T ORDERABLES Final Result * TSH with Reflex to Free T4 (08/17/2024 10:39 AM EDT) TSH reflex Free T4 2.29 0.32 - 4.0 uIU/mL [facility] 08/17/2024 10:3 9 AM EDT 08/17/2024 10:40 AM EDT us Generic External Data Provider LAB BLOOD ORDERAB LES Final Result Performing Organization Address [facility]/State/ZIP Co de Phone Number [facility] [address] [facility] [place] [address] [phone] * XR Chest 2 Views (08/16/2024 11:40 AM EDT) Anatomical Region Laterality Modality Chest Radiographic Elinor ging 08/16/2024 11:4 0 AM EDT Narrative 08/17/2024 8:11 AM EDT ? [facility] ?[address] ?[place] [address] ?XRay Report ? Signed ? Patient: Akil Pretty,Joshua ?MR# ?? : [id number] ? : 1960 ?Acct:[id number] ? Age/Sex: 63 / M ?ADM Date: 08/16/24 ? Loc: HO.XRAY ? Attending Dr: Jose Guy MD ? Ordering Physician: Jose Guy MD ?? Date of Service: 08/16/24 ?? Procedure(s): XR chest 2V ?? Accession Number(s): [id number] ? cc: Macie Link DO; Jose Guy [...] ??Eusebio Johnson MD ??08/17/2024 08:08 AM EDT ?? RP ? Dictated By: ?Eusebio Johnson MD ? Signed By: ?<Electronically signed by Eusebio Johnson MD in OV> ?08/17/24 0808 ? DD/ 1140 ? TD/TT: 08/16/24 1203 ? Land Use Planner: ? Procedure Note Donotaltagraciater, Image - 08/17/[address] [address] XRay Report Signed Patient: Joshua TorresMR# : [id number] : 1960Acct:[id number] Age/Sex: 63 / MADM Date: 08/16/24 Loc: [facility] Attending Dr: Jose Guy MD Ordering Physician: Jose Guy MD Date of Service: 08/16/24 Procedure(s): XR chest 2V Accession Number(s): [id number] cc: Macie Link DO; Jose Guy MD [...] 08/17/24 0808 DD/ 1140 TD/TT: 08/16/24 1203 Land Use Planner: [facility] External Provider IMG XR PROCEDURES Final Result * Hm Colonoscopy (02/23/2022 7:37 AM EDT) Historical Provider HEALTH MAINTENANCE Final Result * HEPATITIS C AB W/REFL TO HCV RNA, QN, PCR (12/09/2020 10:36 AM EDT) HEPATITIS C ANTIBODY NON-REACT ALBINO NON-REACT ALBINO [facility] INDEX 0.01 <1.00 [facility] Comment: ?? HCV antibody was non-reactive. There is no laboratory ?? evidence of HCV infection. ?? In most cases, no further action is required. However, if recent HCV exposure is suspected, a test for HCV RNA (test code 30127) is suggested. ?? For additional information please refer to http://education.[employer]/faq/LIN56f0 (This link is being provided for informational/ educational purposes only.) ?? 12/09/2020 10:3 6 AM EDT Macie Link DO HISTORICAL/NON ORDERABLE LAB S Final Result [facility] [address] from Last 3 Months or Most Recently Relevant to Health Maintenance Insurance [place] [address] [place] [phone] [facility] [employer] MEDICARE REPLACEMENT DENTAL-[facility] MEDICAID STAND ADULT [address] [place] [address] [place] [address] Care Teams Entry Level Account Executive Relationship Specialty Start Date End Date Macie Link DO [address] [place] [address] PCP - General Family Medicine 05/30/18 Flor Clark, PharmD [address] [place] [address] Pharmacist Internal Medicine 08/18/23
--- OUTSIDE RECORDS SUMMARY | 2024-10-04 08:06 | XMS_ITS | Encounter Summary ---
Author Organization [employer] Address [address] [facility] 7t [place] [address] Care Team Providers Care Bulldozer/Loader/Compactor/Scraper Name Role Phone Fariba Macie Primary Care Provider PuFlor quinones PharmD Unavailable Encounter Details Date Type Department Care Team (Late st Contact Info) Description 06/16/2022 Orders Only [facility] CHC MED & PEDS [address] [place] [address] Macie Stiles LPN Social History Tobacco Use [...] Description 10/11/2024 9:00 AM EDT Medication Management [facility] MEDICINE [address] [place] [address] Puia, Flor, PharmD [address] [place] [address] 10/17/2024 2:30 PM EDT Office Visit [facility] ADULT DENTAL [address] [place] [address] Justin Anne, SHAY [address] [place] [address] 11/13/2024 11:30 AM EDT Clinical Support [facility] MEDICINE [address] [place] [address] April Murrell RN 11/14/2024 2:00 PM EDT Office Visit [facility] ADULT DENTAL [address] [place] [address] Eleni Shin [address] [place] [address] 12/28/2024 1:30 PM EDT Office Visit [facility] OPTOMETRY [address] [place] [address] Tip, Dulce, OD [address] [place] [address] documented as of this encounter Visit Diagnoses Not on filedocumented in this encounter Care Teams Bulldozer/Loader/Compactor/Scraper Relationship Specialty Start Date End Date Macie Link DO [address] [place] [address] PCP - General Family Medicine 05/30/18 Flor Clark PharmD [address] [place] [address] Pharmacist Internal Medicine 08/18/23 documented as of this encounter
--- OUTSIDE RECORDS SUMMARY | 2024-10-04 08:06 | XMS_ITS | Encounter Summary ---
Author Organization [employer] Address [address] [facility] 7t [place] [address] Care Team Providers Care Oil Well Service Operator Helper Name Role Phone Macie Link DO Primary Care Provider Flor Clark PharmD Unavailable Encounter Details Date Type Department Care Team ([facility] Contact Info) Description 07/21/2022 Telephone [facility] MEDICINE [address] [place] [address] Macie Link DO [address] [place] [address] Social History Tobacco Use Types Packs/Day Years [...] Description 10/11/2024 9:00 AM EDT Medication Management [facility] MEDICINE [address] [place] [address] Flor Clark PharmD [address] [place] [address] 10/17/2024 2:30 PM EDT Office Visit [facility] ADULT DENTAL [address] [place] [address] Justin Anne, DMD [address] [place] [address] 11/13/2024 11:30 AM EDT Clinical Support [facility] MEDICINE [address] [place] [address] April Murrell, PADILLA 11/14/2024 2:00 PM EDT Office Visit [facility] ADULT DENTAL [address] [place] [address] Eleni Shin [address] [place] [address] 12/28/2024 1:30 PM EDT Office Visit [facility] OPTOMETRY [address] [place] [address] Tip, Dulce, OD [address] [place] [address] documented as of this encounter Visit Diagnoses Not on filedocumented in this encounter Additional Health Concerns Assessment Noted Time PHQ-9 Depression Total Score: 2 07/06/19 23 9:23 AM EST documented as of this encounter Care Teams Oil Well Service Operator Helper Relationship Specialty Start Date End Date Macie Link DO [address] [place] [address] PCP - General Family Medicine 05/30/18 Flor Clark PharmD [address] [place] [address] Pharmacist Internal Medicine 08/18/23 documented as of this encounter
--- OUTSIDE RECORDS SUMMARY | 2024-10-04 08:06 | XMS_ITS | Encounter Summary ---
Author Organization [employer] Address [address] [facility] 7t [place] [address] Care Team Providers Care Associate Software Development Engineer Name Role Phone FaribaMacie Primary Care Provider Flor Clark PharmD Unavailable Encounter Details Date Type Department Care Team (Late st Contact Info) Description 07/30/2022 Orders Only [facility] MEDICINE [address] [place] [address] Cassie Jeronimo MD [address] [place] [address] Chronic neck pain (Primary Dx) Social History [...] Description 10/11/2024 9:00 AM EDT Medication Management [facility] MEDICINE [address] [place] [address] Flor Clark PharmD [address] [place] [address] 10/17/2024 2:30 PM EDT Office Visit [facility] ADULT DENTAL [address] [place] [address] Justin Anne, DMD [address] [place] [address] 11/13/2024 11:30 AM EDT Clinical Support [facility] MEDICINE [address] [place] [address] April Murrell, PADILLA 11/14/2024 2:00 PM EDT Office Visit [facility] ADULT DENTAL [address] [place] [address] Eleni Shin [address] [place] [address] 12/28/2024 1:30 PM EDT Office Visit [facility] OPTOMETRY [address] [place] [address] Dulce Whelan, OD [address] [place] [address] documented as of this encounter Visit Diagnoses Diagnosis Chronic neck pain- Primary Cervicalgia documented in this encounter Additional Health Concerns Assessment Noted Time PHQ-9 Depression Total Score: 2 07/06/19 23 9:23 AM EST documented as of this encounter Care Teams Associate Software Development Engineer Relationship Specialty Start Date End Date Macie Link DO [address] [place] [address] PCP - General Family Medicine 05/30/18 Flor Clark, Jaspreet [address] [place] [address] Pharmacist Internal Medicine 08/18/23 documented as of this encounter
--- OUTSIDE RECORDS SUMMARY | 2024-10-04 08:06 | XMS_ITS | Encounter Summary ---
Author Organization [facility], Address [address] [place] [address] Phone Care Team Providers Care Granulator Machine Operator Name Role Phone Macie Link DO Primary Care Provider Unava ilable Reason for Visit * Reason Comments Med Refill Encounter Details Date Type Department Care Team (Late st Contact Info) Description 07/15/2022 Refill [facility], [address] [place] [address] Romario Ford MD [address] [facility] [place] [phone] Social History Tobacco Use Types Packs/Day Years [...] on filedocumented in this encounter Care Teams Granulator Machine Operator Relationship Specialty Start Date End Date Macie Link DO PCP - General 04/03/19 documented as of this encounter
--- OUTSIDE RECORDS SUMMARY | 2024-10-04 08:06 | XMS_ITS | Encounter Summary ---
Author Organization [employer] Address [address] [facility] [address] 7t [place] [address] Care Team Providers Care Food Expeditor Name Role Phone Macie Link DO Primary Care Provider Flor Clark PharmD Unavailable [phone] Encounter Details Date Type Department Care Team ([facility] st Contact Info) Description 07/25/2024 Telephone [facility] ADULT DENTAL [address] [place] [address] Justin Anne, DMD [address] [place] [address] Social History Tobacco Use Types Packs/Day Years [...] Description 10/11/2024 9:00 AM EDT Medication Management [facility] MEDICINE [address] [place] [address] Flor Clark, DerikD [address] [place] [address] 10/17/2024 2:30 PM EDT Office Visit [facility] ADULT DENTAL [address] [place] [address] Justin Anne, DMD [address] [place] [address] 11/13/2024 11:30 AM EDT Clinical Support [facility] MEDICINE [address] [place] [address] April Murrell, PADILLA 11/14/2024 2:00 PM EDT Office Visit [facility] ADULT DENTAL [address] [place] [address] Eleni Shin [address] [place] [address] 12/28/2024 1:30 PM EDT Office Visit [facility] OPTOMETRY [address] [place] [address] Dulce Whelan, OD [address] [place] [address] documented as of this encounter Goals Goal [...] documented as of this encounter Care Teams Food Expeditor Relationship Specialty Start Date End Date Macie Link DO [address] [place] [address] PCP - General Family Medicine 05/30/18 Flor Clark PharmD [address] [place] [address] Pharmacist Internal Medicine 08/18/23 documented as of this encounter
--- OUTSIDE RECORDS SUMMARY | 2024-10-04 08:06 | XMS_ITS | Encounter Summary ---
Author Organization [employer] Address [address] [facility] 7t [place] [address] Care Team Providers Care Assisted Living Associate Name Role Phone Macie Link DO Primary Care Provider Flor Clark PharmD Unavailable [phone] Reason for Visit * Reason Comments Med Refill Encounter Details Date Type Department Care Team ([facility] st Contact Info) Description 03/29/2024 Refill [facility] MEDICINE [address] [place] [address] Macie Link DO [address] [place] [address] Chronic neck pain Social History Tobacco Use [...] Description 10/11/2024 9:00 AM EDT Medication Management [facility] MEDICINE [address] [place] [address] Flor Clark, PharmD [address] [place] [address] 10/17/2024 2:30 PM EDT Office Visit [facility] ADULT DENTAL [address] [place] [address] Justin Anne, SHAY [address] [place] [address] 11/13/2024 11:30 AM EDT Clinical Support [facility] MEDICINE [address] [place] [address] April Murrell, PADILLA 11/14/2024 2:00 PM EDT Office Visit [facility] ADULT DENTAL [address] [place] [address] Eleni Shin [address] [place] [address] 12/28/2024 1:30 PM EDT Office Visit [facility] OPTOMETRY [address] [place] [address] Dulce Whelan, OD [address] [place] [address] documented as of this encounter Goals Goal [...] documented as of this encounter Care Teams Assisted Living Associate Relationship Specialty Start Date End Date Mcaie Link DO [address] [place] [address] PCP - General Family Medicine 05/30/18 Flor Clark PharmD [address] [place] [address] Pharmacist Internal Medicine 08/18/23 documented as of this encounter
--- OUTSIDE RECORDS SUMMARY | 2024-10-04 08:06 | XMS_ITS | Encounter Summary ---
Author Organization [employer] Address [address] [facility] 7t [place] [address] Care Team Providers Care Tuna Purse Seiner Name Role Phone Fariba Macie Primary Care Provider Flor Clark PharmD Unavailable [phone] Encounter Details Date Type Department Care Team ([facility] st Contact Info) Description 08/13/2022 Orders Only [facility] CHC MED & PEDS [address] [place], [place] [phone] Cayla Sandoval MD [address] [place] [address] Type 2 diabetes mellitus with chronic kidney disease on chronic dialysis, with long-term current use of insulin ([facility]) (Primary Dx) Social History Tobacco Use [...] Description 10/11/2024 9:00 AM EDT Medication Management [facility] MEDICINE [address] [place] [address] Flor Clark, DerikD [address] [place] [address] 10/17/2024 2:30 PM EDT Office Visit [facility] ADULT DENTAL [address] [place] [address] Justin Anne, SHAY [address] [place] [address] 11/13/2024 11:30 AM EDT Clinical Support [facility] MEDICINE [address] [place] [address] April Murrell, PADILLA 11/14/2024 2:00 PM EDT Office Visit [facility] ADULT DENTAL [address] [place] [address] Eleni Shin [address] [place] [address] 12/28/2024 1:30 PM EDT Office Visit [facility] OPTOMETRY [address] [place] [address] Dulce Whelan, OD 230 [place] [address] documented as of this encounter Visit Diagnoses Diagnosis Type 2 diabetes mellitus with chronic kidney disease on chronic dialysis, with long-term current use of insulin ([facility])- Primary documented in this encounter Additional Health Concerns Assessment Noted Time PHQ-9 Depression Total Score: 2 07/06/19 23 9:23 AM EST documented as of this encounter Care Teams Tuna Purse Seiner Relationship Specialty Start Date End Date Macie Link DO [address] [place] [address] PCP - General Family Medicine 05/30/18 Flor Clark, PharmD [address] [place] [address] Pharmacist Internal Medicine 08/18/23 documented as of this encounter
--- OUTSIDE RECORDS SUMMARY | 2024-10-04 08:06 | XMS_ITS | Clinical Summary ---
Author Organization [facility], Address [address] [place] [address] Phone Care Team Providers Care Sales Project Administrator Name Role Phone Macie Link DO [...] Treatment [facility], [place] [address] Romario Ford MD End stage renal disease; Dependence on renal dialysis 09/03/2024 Treatment [facility], [place] [place] [address] Romario Ford MD End stage renal disease; Dependence on renal dialysis 08/20/2024 Treatment [facility], [place] [place] [address] Romario Ford MD End stage renal disease; Dependence on renal dialysis 08/08/2024 Treatment [facility], [place] [place] [address] Romario Ford MD End stage renal disease; Dependence on renal dialysis 08/01/2024 Treatment [facility], [place] [place] [address] Romario Ford MD End stage renal disease; Dependence on renal dialysis from Last 3 Months Immunizations Immunization Administration [...] 10/04/2022, Additional history exists Diabetes: Hemoglobin A1C 12/14/202409/14/2 025, 09/11/2024, 09/04/2024, Additional history exists Influenza Vaccine (Season Ended) [...] (12/21/2023) Hemoglobin 10.1(L) 14.0 - 18.0 g/dL [facility] Hemoglobin x 3 30.3(L) 42.0 - 54.0 % [facility] 12/21/2023 12/22/2023 8:1 6 AM EDT Narrative [facility] - 12/22/2023 Unless otherwise specified, test(s) performed at: [facility], [address] [place] [id number] SOURCING ANALYST: Jos Curran M.D. For any questions, please call customer service at FREQUENCY:OTHER Resulting Agency Comment Specimen source: Blood Anastacio Nickerson MD LAB BLOOD ORDERABLES Final Re sult Performing Organization Address [facility] de Phone Number [facility] [facility] See order comments or contact performing lab [facility] [place] * (ABNORMAL) SPECIAL CHEMISTRY (11/30/2023) Hemoglobin A1C 7.3(H) 4.8 - 5.9 % [facility] 11/30/2023 12/02/2023 1:1 5 PM EDT Narrative [facility] - 12/03/2023 Unless otherwise specified, test(s) performed at: [facility], [address] [place] [id number] SOURCING ANALYST: Jos Curran M.D. For any questions, please call customer service at FREQUENCY:MONTHLY Resulting Agency Comment Specimen source: Blood Anastacio Nickerson MD LAB BLOOD BANK TEST ORDERABLE S Final Result Performing Organization Address [facility]/State/ZIP Co de Phone Number [facility] See order comments or contact performing lab Unknown, [place] from Last 3 Months or Most Recently Relevant to Health Maintenance [place] Care Teams Sales Project Administrator Relationship Specialty Start Date End Date Macie Link DO PCP - General 04/03/19
--- OUTSIDE RECORDS SUMMARY | 2024-10-04 08:06 | XMS_ITS | Encounter Summary ---
Author Organization [employer] Address [address] [facility] 7t [place] [address] Care Team Providers Care Diversity Manager Name Role Phone Macie Link DO Primary Care Provider PuFlor quinones PharmD Unavailable Reason for Visit * Reason Comments Med Refill Encounter Details Date Type Department Care Team (Late st Contact Info) Description 08/13/2022 Refill [facility] MEDICINE [address] [place] [address] Macie Link DO [address] [place] [address] Anxiety Social History Tobacco Use Types Packs/Day [...] Description 10/11/2024 9:00 AM EDT Medication Management [facility] MEDICINE [address] [place] [address] Puia, Flor, PharmD [address] [place] [address] 10/17/2024 2:30 PM EDT Office Visit [facility] ADULT DENTAL [address] [place] [address] Justin Anne, DMD [address] [place] [address] 11/13/2024 11:30 AM EDT Clinical Support [facility] MEDICINE [address] [place] [address] April Murrell, PADILLA 11/14/2024 2:00 PM EDT Office Visit [facility] ADULT DENTAL [address] [place] [address] Eleni Shin [address] [place] [address] 12/28/2024 1:30 PM EDT Office Visit [facility] OPTOMETRY [address] [place] [address] Dulce Whelan, OD [address] [place] [address] documented as of this encounter Visit Diagnoses Diagnosis Anxiety Anxiety state, unspecified documented in this encounter Additional Health Concerns Assessment Noted Time PHQ-9 Depression Total Score: 2 07/06/19 23 9:23 AM EST documented as of this encounter Care Teams Diversity Manager Relationship Specialty Start Date End Date Macie Link DO [address] [place] [address] PCP - General Family Medicine 05/30/18 Flor Clark PharmD [address] [place] [phone] Pharmacist Internal Medicine 08/18/23 documented as of this encounter
--- OUTSIDE RECORDS SUMMARY | 2024-10-04 08:06 | XMS_ITS | Encounter Summary ---
Author Organization [facility] Address [address] [place] [address] Care Team Providers Care Press Tender Short Goods Name Role Phone Patient, Has No Pcp Or Ref Primary Care Provider Unavailable Encounter Details Date Type Department Care Team (Late st Contact Info) Description 09/25/2024 Orders Only [facility] Interventional Radiology [address] [place] [address] Cami Garland PA [address] [place] [address] Social History Tobacco Use Types Packs/Day Years [...] Info) Description 11/05/2024 4:00 PM EDT Telehealth [facility] 5th Floor [address] [place] [address] Pierce Au MD [address] [place] [address] 03/19/2025 9:00 AM EDT Follow-Up [facility] Renal Transplant [address] [place] [address] Louie Pablo MD [address] [place] [address] 03/19/2025 9:30 AM EDT Social Work [facility] Renal Transplant [address] [place] [address] Imani Livingston LICSW [address] [place] [address] documented as of this encounter Visit Diagnoses Not on filedocumented in this encounter Care Teams Press Tender Short Goods Relationship Specialty Start Date End Date Patient, Has No Pcp Or Ref DO NOT EDIT THIS RECORD VIA PROVIDER ON THE FLY PCP - General Ammunition Storage Superintendent 03/15/24 documented as of this encounter
--- OUTSIDE RECORDS SUMMARY | 2024-10-04 08:06 | XMS_ITS | Encounter Summary ---
Author Organization [facility], Address [address] [place] [address] Phone Care Team Providers Care Advertising Space Clerk Name Role Phone Macie Link DO Primary Care Provider Unava ilable Encounter Details Date Type Department Care Team (Late st Contact Info) Description 03/16/2024 Documentation Only [facility], [address] [place] [address] Jimena Gibson ND [address] [place] [address] Social History Tobacco Use Types [...] on filedocumented in this encounter Care Teams Advertising Space Clerk Relationship Specialty Start Date End Date Macie Link DO PCP - General 04/03/19 documented as of this encounter
--- OUTSIDE RECORDS SUMMARY | 2024-10-04 08:06 | XMS_ITS | Encounter Summary ---
Author Organization [employer] Address [address] [facility] 7t [place] [address] Care Team Providers Care Waste Water Worker Name Role Phone Macie Link DO Primary Care Provider Flor Clark PharmD Unavailable [phone] Reason for Visit * Reason Comments Med Refill Encounter Details Date Type Department Care Team (Late st Contact Info) Description 03/30/2024 Refill [facility] MEDICINE [address] [place] [address] Macie Link DO [address] [place] [address] Seasonal allergic rhinitis, unspecified trigger Social History [...] Description 10/11/2024 9:00 AM EDT Medication Management [facility] MEDICINE [address] [place] [address] Flor Clark, PharmD [address] [place] [address] 10/17/2024 2:30 PM EDT Office Visit [facility] ADULT DENTAL [address] [place] [address] Justin Anne, SHAY [address] [place] [address] 11/13/2024 11:30 AM EDT Clinical Support [facility] MEDICINE [address] [place] [address] April Murrell, PADILLA 11/14/2024 2:00 PM EDT Office Visit [facility] ADULT DENTAL [address] [place] [address] Eleni Shin [address] [place] [address] 12/28/2024 1:30 PM EDT Office Visit [facility] OPTOMETRY [address] [place] [address] Dulce Whelan, OD [address] [place] [address] documented as of this encounter Goals Goal [...] documented as of this encounter Care Teams Waste Water Worker Relationship Specialty Start Date End Date Macie Link DO [address] [place] [address] PCP - General Family Medicine 05/30/18 Flor Clark PharmD [address] [place] [address] Pharmacist Internal Medicine 08/18/23 documented as of this encounter
--- OUTSIDE RECORDS SUMMARY | 2024-10-04 08:06 | XMS_ITS | Encounter Summary ---
Author Organization [facility], Address [address] [place] [address] Phone Care Team Providers Care Ceramic Painter Name Role Phone Macie Link DO Primary Care Provider Unava ilable Reason for Visit * Reason Comments Med Refill Encounter Details Date Type Department Care Team (Late st Contact Info) Description 09/08/2022 Refill [facility], [address] [place] [address] Romario Ford MD [address] [facility] [place] [phone] Social History Tobacco Use Types Packs/Day Years [...] on filedocumented in this encounter Care Teams Ceramic Painter Relationship Specialty Start Date End Date Macie Link DO PCP - General 04/03/19 documented as of this encounter
--- OUTSIDE RECORDS SUMMARY | 2024-10-04 08:06 | XMS_ITS | Encounter Summary ---
Author Organization [employer] Address [address] [facility] 7t [place] [address] Care Team Providers Care Powder Mixer Name Role Phone Macie Link DO Primary Care Provider Flor Clark PharmD Unavailable Reason for Visit * Reason Comments Med Refill Encounter Details Date Type Department Care Team ([facility] Contact Info) Description 10/14/2022 Refill [facility] MEDICINE [address] [place] [address] Macie Link DO [address] [place] [address] Anxiety Social History Tobacco Use Types Packs/Day [...] Upcoming Encounters Date Type Department Care Team ([facility] Contact Info) Description 10/11/2024 9:00 AM EDT Medication Management [facility] MEDICINE [address] [place] [address] Flor Clark PharmD [address] [place] [address] 10/17/2024 2:30 PM EDT Office Visit [facility] ADULT DENTAL [address] [place] [address] Justin Anne, DMD [address] [place] [address] 11/13/2024 11:30 AM EDT Clinical Support [facility] MEDICINE [address] [place] [address] April Murrell, PADILLA 11/14/2024 2:00 PM EDT Office Visit [facility] ADULT DENTAL [address] [place] [address] Eleni Shin [address] [place] [address] 12/28/2024 1:30 PM EDT Office Visit [facility] OPTOMETRY [address] [place] [address] Dulce Whelan, OD [address] [place] [address] documented as of this encounter Visit Diagnoses Diagnosis Anxiety Anxiety state, unspecified documented in this encounter Additional Health Concerns Assessment Noted Time PHQ-9 Depression Total Score: 2 07/06/19 23 9:23 AM EST documented as of this encounter Care Teams Powder Mixer Relationship Specialty Start Date End Date Macie Link DO [address] [place] [address] PCP - General Family Medicine 05/30/18 Flor Clark PharmD [address] [place] [address] Pharmacist Internal Medicine 08/18/23 documented as of this encounter
--- OUTSIDE RECORDS SUMMARY | 2024-10-04 08:06 | XMS_ITS | Clinical Summary ---
Author Organization [facility] Address [address] [place] [address] Care Team Providers Care Speech Therapist Technician Name Role Phone Patient, Has No Pcp [...] tablet SMARTSI.5 Tablet(s) By Mouth Daily Active OneTouch Ultra test strips SMARTSI Times Daily 5 Active chlorhexidine (PERIDEX) 0.12% solution SMARTSI Milliliter(s) 3 Times Daily 5 Active clotrimazole (LOTRIMIN) 1% cream APPLY TO THE AFFECTED AREA(S) TWICE DAILY IN THE MORNING AND IN THE EVENING 5 Active FreeStyle Gurmeet 2 [place] misc SMARTSIG:As Directed 4 Active FreeStyle Gurmeet 2 Sensor kit USE DIRECTED TO TEST BLOOD SUGAR EVERY 8 HOURS CHANGE EVERY 14 DAYS 5 Active gabapentin (NEURONTIN) 100 mg capsule SMARTSI Capsule(s) By Mouth Morning-Evenin g 5 Active ibuprofen (MOTRIN) 800 mg tablet SMARTSI Tablet(s) By Mouth 3 Times Daily PRN 5 Active NovoLOG Flexpen U-100 Insulin 100 unit/mL (3 mL) injection pen SMARTSI Unit(s) SUB-Q 3 Times Daily 4 Active ipratropium (ATROVENT) 0.03% nasal spray SMARTSI [place](s) Both Nares 3 Times Daily Active Accu-Chek Softclix Lancets lancets SMARTSI Times Daily 5 Active BD Ultra-Fine Katerina Pen Needle 4 mm x 32 g SMARTSI Times Daily 5 Active Viagra 100 mg tablet TAKE 1 TABLET 1 HOUR BEFORE SEXUAL RELATIONS ONCE DAILY NEEDED. 5 Active Active Problems Problem Noted Date Diagnosed [...] Encounters Date Type Department Care Team Description 09/27/2024 Orders Only [facility] Interventional Radiology [address] [place] [address] Cami Garland PA 09/27/2024 Orders Only [facility] 5th Floor [address] [place] [address] Rea Parks RN Neuroendocrine tumor (Primary Dx) 09/27/2024 Patient Outreach [facility] 5th Floor [address] [place] [address] Rea Parks RN 09/25/2024 Orders Only [facility] Interventional Radiology [address] [place] [address] Cami Garland PA 09/24/2024 8:30 AM EDT Follow-Up [facility] [place] [facility] 5th [facility] [address] [place] [address] Pierce Au MD Neuroendocrine tumor (Primary Dx); Renal cell carcinoma of right kidney (HCC) 09/10/2024 Telephone [facility] 5th [facility] [address] [place] [address] Pierce Au MD Appointment (Pt of Viraj Deng PET requesting office notes and imaging for upcoming PET scan ) 08/24/2024 Telephone [facility] Bone Marrow Transplant [address] [place] [address] Hillary Webber MD 08/23/2024 Orders Only [facility] 5th [facility] [address] [place] [address] Pierce Au MD Renal cell carcinoma, unspecified laterality from Last 3 Months Immunizations Immunization Administration Dates Next Due COVID-19, Moderna, mRNA, LNP -S, Bivalent Booster, PF 03/12/2022 Hepatitis B vaccine (HEPLISA V-B) vaccine 0.5 mL IM 12/29/2022,11/03/2022,10/04/2022,2022 Pneumococcal conjugate PCV20,polysaccharide [id number] conjugate, adjuvant, PF (Prevnar 20) 06/22/2023 Social History Tobacco Use Types Packs/Day Years Used Date Smoking Tobacco: Never Smokeless Tobacco: Never Tobacco Cessation:Counseling Given: No Alcohol Use Standard Drinks/Week Comments Never 0 [...] Sign Reading Time Taken Comments Blood Pressure 121/71 09/24/2024 7:55 AM EDT Pulse 76 09/24/2024 7:55 AM EDT Temperature 37 ??C (98.6 ??F) 09/24/2024 7:55 AM EDT Respiratory Rate 16 06/21/2024 1:54 PM EST Oxygen Saturation 97% 09/24/2024 7:55 AM EDT Inhaled Oxygen Concentration - - Weight 90.7 kg (200 lb) 09/24/2024 7:55 AM EDT Height 165.2 cm (5' 5.04 ) 09/24/2024 7:55 AM ED T Body Mass Index 33.24 09/24/2024 7:55 AM EDT Plan of Treatment Upcoming Encounters Date Type Department Care Team (Late st Contact Info) Description 11/05/2024 4:00 PM EDT Telehealth [facility] 5th Floor [address] [place] [address] Pierce Au MD [address] [place] [address] 03/19/2025 9:00 AM EDT Follow-Up [facility] Renal Transplant [address] [place] [address] Louie Pablo MD [address] [place] [address] 03/19/2025 9:30 AM EDT Social Work [facility] Renal [facility]plant [address] [place] [address] Imani Livingston LICSW [address] [place] [address] Health Maintenance Due Date Last Done Comments 25 Hydroxy / Vitamin D 1959 CKD: Referral to Nutrition 1959 Cologuard 1959 Colonoscopy 1960 Controlled Substance Agreement 1960 PTH 1959 Sigmoidoscopy 1959 Ophthalmology Exam 09/21/1969 Urine Microalbumin 09/21/1969 COVID-19 Vaccine (7 - 2023-2 5 season) 2024 03/08/2023, 03/12/2022, 10/06/2021, Additional history exists Alcohol/Substance Use Screening 05/30/2024 Depression Screening and Follow-Up 05/30/2024 Health Care Proxy Review 05/30/2024 [employer] [facility] [place] ual Screening 05/30/2024 Basic Metabolic Panel 12/14/2024 09/14/2024 , 07/06/2024, 11/03/2023, Additional history exists Hemoglobin A1C 03/13/2025 09/11/2024, 04/0 12/2024, 06/07/2024, Additional history exists Hemoglobin 03/15/2025 03/15/2024 Phosphorus 03/15/2025 03/15/2024 Colon Cancer Screening 09/14/2025 FOBT / Fit Test 09/14/2025 09/14/2024 DTaP,Tdap,and Td Vaccines (3 - Td or [...] Screening Completed 03/15/2024 Procedures * Due to [place] state law, this organization might not be sharing negative HIV tests. Procedure Name Priority Date/Time Associated Diagnosis Comments PET/CT FDG SKULL BASE TO MID-THIGH Routine 09/13/2024 10:00 AM EDT Renal cell carcinoma, unspecified laterality (HCC) PET/CT GA68 DOTATATE NETSPOT Routine 08/02/2024 7:40 PM EST Neuroendocrine carcinoma of stomach BASIC METABOLIC PANEL STAT 07/06/2024 11:59 AM [...] to Health Maintenance Results * Due to [place] state law, this organization might not be sharing negative HIV tests. * PET/CT Tumor Imaging - Skull Base to Mid-Thigh (09/13/2024 10:00 AM EDT) Anatomical Region Laterality Modality Entire body Magnetic Resonan ce 09/13/2024 9:30 AM EDT Narrative 09/13/2024 4:50 PM EDT [facility] PET/CT Imaging Accession Number: [id number] Patient Name: Joshua Barnard Date of : 1960 Date of Exam: 09-13-2024 Referring Physician: Pierce Au ?[facility] ?[address] [place] [address] NILSON Beasley ?[place], [place] [address] Exam: PT Skull Base to Mid Thigh CPT 10059 Room Description: [facility] Pt4 PET CT History: History of [...] the surgical bed. Mild atrophy of the chenega left kidney, unchanged. Normal left ureter. Enlarged prostate. No abnormal focal uptake. Focal uptake at the anus, likely physiologic. The colon is normal. Diffuse uptake throughout the small bowel with short segment increased activity in the right hemiabdomen, for example image 108), SUV max 8.8, likely [id number]. Surgical clips in the stomach. No suspicious [...] MD Procedure Note Provider, Viraj - 09/13/2024 [facility] PET/CT Imaging Accession Number: [id number] Patient Name: Joshua Barnard Date of : 1960 Date of Exam: 09-13-2024 Referring Physician: Pierce Au [address] [address] Exam: PT Skull Base to Mid Thigh CPT 56294 Room Description: [facility] Pt4 PET CT History: History of [...] the surgical bed. Mild atrophy of the chenega left kidney, unchanged. Normal left ureter. Enlarged prostate. No abnormal focal uptake. Focal uptake at the anus, likely physiologic. The colon is normal. Diffuse uptake throughout the small bowel with short segment increased activity in the right hemiabdomen, for example image 108), SUV max 8.8, likely [id number]. Surgical clips in the stomach. No suspicious [...] findings. Electronically Signed By: Rahat Castillo MD us Pierce Au MD IMG MRI PROCEDURES Final Resu lt * PET/CT Skull Base to Mid Thigh [id number] (08/02/2024 7:40 PM EST) Anatomical Region Laterality Modality Entire body Magnetic Resonan ce 08/02/2024 6:50 PM EST Narrative 08/03/2024 12:07 PM EST [facility] PET/CT Imaging Accession Number: [id number] Patient Name: Joshua Barnard Date of : 1960 Date of Exam: 08-02-2024 Referring Physician: Hillary Webber ?[facility] ?[address] [place] [address] ?[place] [address] Exam: PT Skull Base to Mid Thigh [id number] CPT 81035 Room Description: [facility] Pt4 Ga-68 Dotatate PET-CT History: History [...] MD Procedure Note Provider, Viraj - 08/03/2024 [facility] PET/CT Imaging Accession Number: [id number] Patient Name: Joshua Barnard Date of : 1960 Date of Exam: 08-02-2024 Referring Physician: Hillary Webber [address] [address] Exam: PT Skull Base to Mid Thigh [id number] CPT 24586 Room Description: [facility] Pt4 Ga-68 Dotatate PET-CT History: History [...] findings. Electronically Signed By: Annalee Mcmillan MD Hillary Webber MD IM MRI PROCEDURES Final Result * (ABNORMAL) Basic Metabolic Panel (07/06/2024 11:59 AM EST) NA 138 135 - 145 mmol/L 07/06/2024 12:39 PM EST [facility] K 4.4 3.5 - 5.3 mmol/L 07/06/2024 12:39 PM EST [facility] Cl 96(L) 98 - 107 mmol/L 07/06/2024 12:39 PM EST [facility] CO2 30 22 - 32 mmol/L 07/06/2024 12:39 PM EST [facility] BUN 19 7 - 23 mg/dL 07/06/2024 12:39 PM EST [facility] Creatinine 5.41(H) 0.60 - 1.30 mg/dL 07/06/2024 12:39 PM EST [facility] Glucose 147(H) 65 - 99 mg/dL 07/06/2024 12:39 PM EST [facility] Calcium 9.7 8.6 - 10.5 mg/dL 07/06/2024 12:39 PM EST [facility] Anion Gap 12 5 - 15 07/06/2024 12:39 PM EST [facility] eGFR 11(L) >=60 mL/min/1 .73m2 07/06/2024 12:39 PM EST [facility] Comment:The estimated glomer ular [...] MD LAB BLOOD ORDERABLES Final Resu lt [facility] [facility] [address] [place] [address], [place] * (ABNORMAL) CBC Auto Differential (03/15/2024 12:39 PM EDT) WBC 6.2 3.8 - 10.8 10*3/uL 03/15/2024 1:11 PM EDT [facility] [employer] [facility] [facility] RBC 3.90(L) 4.20 - 5.80 10*6/uL 03/15/2024 1:11 PM EDT [facility] [employer] [facility] [facility] Hemoglobin 11.9(L) 13.2 - 17.1 g/dL 03/15/2024 1:11 PM EDT [facility] [facility] Hematocrit 36.8(L) 38.5 - 50.0 % 03/15/2024 1:11 PM EDT [facility] MCV 94.4 80.0 - 100.0 fL 03/15/2024 1:11 PM EDT [facility] MCH 30.5 27.0 - 33.0 pg 03/15/2024 1:11 PM EDT [facility] MCHC 32.3 32.0 - 36.0 g/dL 03/15/2024 1:11 PM EDT [facility] RDW 14.2 11.0 - 15.0 % 03/15/2024 1:11 PM EDT [facility] Platelets 175 140 - 400 10*3/uL 03/15/2024 1:11 PM EDT [facility] MPV 11.3 7.5 - 12.5 fL 03/15/2024 1:11 PM EDT [facility] Neutrophil % 59.1 % 03/15/2024 1:11 PM EDT [facility] Immature Grans % 0.2 0.0 - 0.9 % 03/15/2024 1:11 PM EDT [facility] Lymphocyte % 28.1 % 03/15/2024 1:11 PM EDT [facility] Monocyte % 9.9 % 03/15/2024 1:11 PM EDT [facility] Eosinophil % 2.4 % 03/15/2024 1:11 PM EDT [facility] Basophil % 0.3 % 03/15/2024 1:11 PM EDT [facility] Neutrophil # 3.63 1.50 - 7.80 10*3/uL 03/15/2024 1:11 PM EDT [facility] Immature Grans # <0.03 <=0.03 10*3/uL 03/15/2024 1:11 PM EDT [facility]OLOG[facility] LAB[facility] Lymphocyte # 1.70 0.85 - 3.90 10*3/uL 03/15/2024 1:11 PM EDT [facility] Monocyte # 0.60 0.20 - 0.95 10*3/uL 03/15/2024 1:11 PM EDT [facility] LAB[facility] Eosinophil # 0.20 0.02 - 0.50 10*3/uL 03/15/2024 1:11 PM EDT [facility] Basophil # <0.03 0.00 - 0.20 10*3/uL 03/15/2024 1:11 PM EDT [facility] nRBC % 0.0 /100 WBCs 03/15/2024 1:11 PM EDT [facility] nRBC # <0.01 <0.01 10*3/uL 03/15/2024 1:11 PM EDT [facility] Blood Structure of peripheral vein / Unknown Venipuncture / Unknown 03/15/2024 12:39 PM EDT 03/15/2024 12:59 PM EDT Tobias Vogt MD LAB BLOOD ORDERABLES Final Result [facility] [address] [place] [address], * Hepatitis C Antibody w/Reflex to PCR (03/15/2024 12:39 PM EDT) Hepatitis C Antibody NON-REACT ALBINO NON-REACT ALBINO 03/16/2024 3:27 AM EDT [facility] Comment: HCV antibody was non-reactive. There is no laboratory evidence of HCV infection. In most cases, no further action is required. However, if recent HCV exposure is suspected, a test for HCV RNA (test code 04890) is suggested. For additional information please refer to http://education.Socius/faq/EQF87o1 (This link is being provided for informational/ educational purposes only.) Blood Structure of peripheral vein / Unknown Venipuncture / Unknown 03/15/2024 12:39 PM EDT 03/15/2024 12:58 PM EDT Narrative ELIUD DOMÍNGUEZ - 03/16/2024 3:27 AM EDT [facility] Received Date: us Tobias Vogt MD LAB BLOOD ORDERABLES Final Result [facility] [address] [facility] [address]rd [facility], [place] [address], [place] [phone] [employer] [facility] [address], [place] [address], [place] [phone] * Phosphorus (03/15/2024 12:39 PM EDT) Phosphorus 3.4 2.5 - 4.5 mg/dL 03/15/2024 1:45 PM EDT [facility] Blood Structure of peripheral vein / Unknown Venipuncture / Unknown 03/15/2024 12:39 PM EDT 03/15/2024 12:58 PM EDT us Tobias Vogt MD LAB BLOOD ORDERABLES Final Result Performing Organization Address City/[facility]/ZIP Co de Phone Number [facility] [address] [place] [address], * (ABNORMAL) Hemoglobin A1c (03/15/2024 12:39 PM EDT) Hemoglobin A1C 6.3(H) <5.7 % of total Hgb 03/16/2024 2:05 AM EDT [facility] Comment: For someone without known diabetes, [...] (MG/DL) 134 mg/dL 03/16/2024 2:05 AM EDT [facility] eAG (MMOL/L) 7.4 mmol/L 03/16/2024 2:05 AM EDT [facility] Blood Structure of peripheral vein / Unknown Venipuncture / Unknown 03/15/2024 12:39 PM EDT 03/15/2024 12:59 PM EDT Narrative [facility] - 03/16/2024 2:05 AM EDT [facility] Received Date: us Tobias Vogt MD LAB BLOOD ORDERABLES Final Result [facility] [address] [facility] 3rd Floor, [place] [address], [employer] [facility] [address] [facility] 3rd Floor, [place] [address], from Last 3 Months or Most Recently Relevant to Health Maintenance Insurance [address] [place] [id number] [facility] [place] [id number] [facility] 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
--- OUTSIDE RECORDS SUMMARY | 2024-10-04 08:07 | XMS_ITS | Encounter Summary ---
Author Organization [employer] Address [address] [place] [address] 7t [place] [address] Care Team Providers Care Methods Specialist Engineer Name Role Phone Macie Link DO Primary Care Provider PuFolr quinones PharmD Unavailable Reason for Visit * Reason Comments Med Refill Encounter Details Date Type Department Care Team (Late st Contact Info) Description 01/13/2023 Refill [facility] MED[facility] [address] [place] [address] Macie Link DO [address] [place] [address] Chronic neck pain Social History Tobacco Use [...] Description 10/11/2024 9:00 AM EDT Medication Management [facility] [address] [place] [address] Puia, Flor, PharmD [address] [place] [address] 10/17/2024 2:30 PM EDT Office Visit [facility] ADULT DENTAL [address] [place] [address] Justin Anne, DMD [address] [place] [address] 11/13/2024 11:30 AM EDT Clinical Support [facility] [address] [place] [address] April Murrell, PADILLA 11/14/2024 2:00 PM EDT Office Visit [facility] [address] [place] [address] Eleni Shin [address] [place] [address] 12/28/2024 1:30 PM EDT Office Visit [facility] OPTOMETRY [address] [place] [address] Dulce Whelan, OD [address] [place] [address] documented as of this encounter Visit Diagnoses Diagnosis Chronic neck pain Cervicalgia documented in this encounter Additional Health Concerns Assessment Noted Time PHQ-9 Depression Total Score: 2 07/06/19 23 9:23 AM EST documented as of this encounter Care Teams Methods Specialist Engineer Relationship Specialty Start Date End Date Macie Link DO [address] [place] [address] PCP - General Family Medicine 05/30/18 Flor Clark PharmD [address] [place] [address] Pharmacist Internal Medicine 08/18/23 documented as of this encounter
--- OUTSIDE RECORDS SUMMARY | 2024-10-04 08:07 | XMS_ITS | Encounter Summary ---
Author Organization [employer] Address [address] [facility] 7t [place] [address] Care Team Providers Care Bankruptcy Attorney Name Role Phone Macie Link DO Primary Care Provider [phone] Flor Clark PharmD Unavailable [phone] Reason for Visit * Reason Comments Med Refill Encounter Details Date Type Department Care Team (Late st Contact Info) Description 10/03/2024 Refill [facility] MEDICINE [address] [place] [address] Macie Link DO [address] [place] [address] Primary hypertension Social History Tobacco Use Types Packs/Day Years [...] Medication Management [facility] MEDICINE [address] [place] [address] Flor Clark, PharmD [address] [place] [address] 10/17/2024 2:30 PM EDT Office Visit [facility] ADULT DENTAL [address] [place] [address] Justin Anne, DMD [address] [place] [address] 11/13/2024 11:30 AM EDT Clinical Support [facility] MEDICINE [address] [place] [address] April Murrell, PADILLA 11/14/2024 2:00 PM EDT Office Visit [facility] ADULT DENTAL [address] [place] [address] Eleni Shin [address] [place] [address] 12/28/2024 1:30 PM EDT Office Visit [facility] OPTOMETRY [address] [place] [address] Dulce Whelan, OD [address] [place] [address] documented as of this encounter Goals Goal [...] as of this encounter Visit Diagnoses Diagnosis Primary hypertension Unspecified essential hypertension documented in this encounter Additional Health Concerns Assessment Noted Time PHQ-9 Depression Total Score: 9 09/12/19 25 11:18 AM EDT documented as of this encounter Care Teams Bankruptcy Attorney Relationship Specialty Start Date End Date Macie Link DO [address] [place] [address] PCP - General Family Medicine 05/30/18 Flor Clark, Jaspreet [address] [place] [address] Pharmacist Internal Medicine 08/18/23 documented as of this encounter
--- OUTSIDE RECORDS SUMMARY | 2024-10-04 08:07 | XMS_ITS | Encounter Summary ---
Author Organization [employer] Address 75 [facility] 7t [place] [address] Care Team Providers Care Test Engineering Technician Name Role Phone Macie Link DO Primary Care Provider [phone] PuFlor quinones PharmD Unavailable Reason for Visit * Reason Comments Med Refill Encounter Details Date Type Department Care Team (Late st Contact Info) Description 12/31/2022 Refill [facility] MEDICINE [address] [place] [address] Macie Link DO [address] [place] [address] Anxiety Social History Tobacco Use Types Packs/Day [...] Description 10/11/2024 9:00 AM EDT Medication Management [facility] MEDICINE [address] [place] [address] Puia, Flor, PharmD [address] [place] [address] 10/17/2024 2:30 PM EDT Office Visit [facility] ADULT DENTAL [address] [place] [address] Justin Anne, DMD [address] [place] [address] 11/13/2024 11:30 AM EDT Clinical Support [facility] MEDICINE [address] [place] [address] April Murrell, PADILLA 11/14/2024 2:00 PM EDT Office Visit [facility] ADULT DENTAL [address] [place] [address] Eleni Shin [address] [place] [address] 12/28/2024 1:30 PM EDT Office Visit [facility] OPTOMETRY [address] [place] [address] Dulce Whelan, OD [address] [place] [address] documented as of this encounter Visit Diagnoses Diagnosis Anxiety Anxiety state, unspecified documented in this encounter Additional Health Concerns Assessment Noted Time PHQ-9 Depression Total Score: 2 07/06/19 23 9:23 AM EST documented as of this encounter Care Teams Test Engineering Technician Relationship Specialty Start Date End Date Macie Link DO [address] [place] [address] PCP - General Family Medicine 05/30/18 Flor Clark PharmD [address] [place] [address] Pharmacist Internal Medicine 08/18/23 documented as of this encounter
--- OUTSIDE RECORDS SUMMARY | 2024-10-04 08:07 | XMS_ITS | Referral Summary ---
Author Organization [facility] Address [address] [place] [address] Care Team Providers Care Lens Silverer Name Role Phone Patient, Has No Pcp Or Ref Primary Care Provider Unavailable Encounters Date Type Department Care Team Description 09/27/2024 Orders Only [facility] Interventional Radiology [address] [place] [address] Cami Garland, PA 09/27/2024 Orders Only [facility] Cancer [facility] [address] [place] [address] [address] [place] [address] Rea Parks RN Neuroendocrine tumor (Primary Dx) 09/27/2024 Patient Outreach [facility] Floor [address] [place] [address] Rea Parks, PADILLA 09/25/2024 Orders Only [facility] Interventional Radiology [address] [place] [address] Cami Garland, PA 09/24/2024 8:30 AM EDT Follow-Up [facility] [place] [facility] [address] [place] [address] [address] [place] [address] Pierce Au MD Neuroendocrine tumor (Primary Dx); Renal cell carcinoma of right kidney (HCC) 09/10/2024 Telephone [facility] [address] [place] [address] [address] [place] [address] Pierce Au MD Appointment (Pt of Viraj Deng PET requesting office notes and imaging for upcoming PET scan ) 08/24/2024 Telephone [facility] Bone Marrow Transplant [address] [place] [address] Hillary Webber MD 08/23/2024 Orders Only [facility] 5th Floor [address] [place] [address] Pierce Au MD Renal cell carcinoma, unspecified laterality from Last 3 Months Allergies No known [...] THE EVENING 5 Active FreeStyle Gurmeet 2 [place] misc SMARTSIG:As Directed 4 Active FreeStyle Gurmeet [...] Active ipratropium (ATROVENT) 0.03% nasal spray SMARTSI Penokee(s) Both Nares 3 Times Daily Active Accu-Chek Softclix Lancets lancets SMARTSI Times Daily 5 Active BD Ultra-Fine Katerina Pen Needle 4 mm x 32 g SMARTSI Times Daily Active Viagra 100 mg tablet TAKE 1 TABLET 1 HOUR BEFORE SEXUAL RELATIONS ONCE DAILY NEEDED. Active Active Problems Problem Noted Date Diagnosed [...] 0.5 mL IM 12/29/2022,11/03/2022,10/04/2022,2022 Pneumococcal conjugate PCV20,polysaccharide EMY098 conjugate, adjuvant, PF (Prevnar 20) 06/22/2023 Social [...] Info) Description 11/05/2024 4:00 PM EDT Telehealth [facility] 5th Floor [address] [place] [address] Pierce Au MD [address] [place] [address] 03/19/2025 9:00 AM EDT Follow-Up [facility] Renal Transplant [address] [place] [address] Louie Pablo MD [address] [place] [address] 03/19/2025 9:30 AM EDT Social Work [facility] Renal Transplant [address] [place] [address] Imani Livingston LICSW [address] [place] [address] Procedures * Due to [place] state law, [...] AM EDT Narrative 09/13/2024 4:50 PM EDT [facility] PET/CT Imaging Accession Number: [id number] Patient Name: Joshua Barnard Date of : 1960 Date of Exam: 09-13-2024 Referring Physician: Pierce Au ?[facility] ?[address] [place] [address] NILSON Beasley ?[place], [place] [address] Exam: PT Skull Base to Mid Thigh CPT 55851 Room Description: [facility] Pt4 PET CT History: History of [...] the surgical bed. Mild atrophy of the augustine left kidney, unchanged. Normal left ureter. Enlarged prostate. No abnormal focal uptake. Focal uptake at the anus, likely physiologic. The colon is normal. Diffuse uptake throughout the small bowel with short segment increased activity in the right hemiabdomen, for example image 108), SUV max 8.8, likely [id number]. Surgical clips in the stomach. No suspicious [...] MD Procedure Note Provider, Viraj - 09/13/2024 [facility] PET/CT Imaging Accession Number: [id number] Patient Name: Joshua Barnard Date of : 1960 Date of Exam: 09-13-2024 Referring Physician: Pierce Au [address] [address] Exam: PT Skull Base to Mid Thigh CPT 78768 Room Description: [facility] Pt4 PET CT History: History of [...] the surgical bed. Mild atrophy of the augustine left kidney, unchanged. Normal left ureter. Enlarged prostate. No abnormal focal uptake. Focal uptake at the anus, likely physiologic. The colon is normal. Diffuse uptake throughout the small bowel with short segment increased activity in the right hemiabdomen, for example image 108), SUV max 8.8, likely [id number]. Surgical clips in the stomach. No suspicious [...] * PET/CT Skull Base to Mid Thigh [id number] (08/02/2024 7:40 PM EST) Anatomical Region Laterality Modality Entire body Magnetic Resonan ce 08/02/2024 6:50 PM EST Narrative 08/03/2024 12:07 PM EST [facility] PET/CT Imaging Accession Number: [id number] Patient Name: Joshua Barnard Date of : 1960 Date of Exam: 08-02-2024 Referring Physician: Hillary Webber ?[facility] ?[address] [place] [address] ?[place] [address] Exam: PT Skull Base to Mid Thigh [id number] CPT 44722 Room Description: [facility] Pt4 Ga-68 Dotatate [...] MD Procedure Note Provider, Viraj - 08/03/2024 [facility] PET/CT Imaging Accession Number: [id number] Patient Name: Joshua Barnard Date of : 1960 Date of Exam: 08-02-2024 Referring Physician: Hillary Webber [address] [address] Exam: PT Skull Base to Mid Thigh [id number] CPT 59385 Room Description: [facility] Pt4 Ga-68 Dotatate [...] By: Annalee Mcmillan MD Hillary Webber MD IMG MRI PROCEDURES Final Result * (ABNORMAL) Basic Metabolic Panel (07/06/2024 11:59 AM EST) NA 138 135 - 145 mmol/L 07/06/2024 12:39 PM EST [facility] K 4.4 3.5 - 5.3 mmol/L 07/06/2024 12:39 PM EST [facility] Cl 96(L) 98 - 107 mmol/L 07/06/2024 12:39 PM EST [facility] CO2 30 22 - 32 mmol/L 07/06/2024 12:39 PM EST [facility] BUN 19 7 - 23 mg/dL 07/06/2024 12:39 PM EST [facility] Creatinine 5.41(H) 0.60 - 1.30 mg/dL 07/06/2024 12:39 PM EST [facility] Glucose 147(H) 65 - 99 mg/dL 07/06/2024 12:39 PM EST [facility] Calcium 9.7 8.6 - 10.5 mg/dL 07/06/2024 12:39 PM EST [facility] [employer] CL[facility]OLOG[facility] LABOR[facility] Anion Gap 12 5 - 15 07/06/2024 12:39 PM EST [facility] CLINICAL PATHOLOGY LABORATORY eGFR 11(L) >=60 mL/min/1 .73m2 07/06/2024 12:39 PM EST [facility]ICAL PATHOLOGY LABOR[facility]ORY Comment:The estimated glomer ular [...] MD LAB BLOOD ORDERABLES Final Resu lt [facility] CLINICAL PATHOLOGY LABORATORY [address] [place] [address], [place] * (ABNORMAL) CBC Auto Differential (03/15/2024 12:39 PM EDT) WBC 6.2 3.8 - 10.8 10*3/uL 03/15/2024 1:11 PM EDT [facility] CL[facility] PATHOLOGY LABORATORY RBC 3.90(L) 4.20 - 5.80 10*6/uL 03/15/2024 1:11 PM EDT [facility] LAB[facility] Hemoglobin 11.9(L) 13.2 - 17.1 g/dL 03/15/2024 1:11 PM EDT [facility]Y LAB[facility]ORY Hematocrit 36.8(L) 38.5 - 50.0 % 03/15/2024 1:11 PM EDT [facility] MCV 94.4 80.0 - 100.0 fL 03/15/2024 1:11 PM EDT [facility] MCH 30.5 27.0 - 33.0 pg 03/15/2024 1:11 PM EDT [facility] MCHC 32.3 32.0 - 36.0 g/dL 03/15/2024 1:11 PM EDT [facility] RDW 14.2 11.0 - 15.0 % 03/15/2024 1:11 PM EDT [facility] Platelets 175 140 - 400 10*3/uL 03/15/2024 1:11 PM EDT [facility] MPV 11.3 7.5 - 12.5 fL 03/15/2024 1:11 PM EDT [facility] Neutrophil % 59.1 % 03/15/2024 1:11 PM EDT [facility] Immature Grans % 0.2 0.0 - 0.9 % 03/15/2024 1:11 PM EDT [facility] Lymphocyte % 28.1 % 03/15/2024 1:11 PM EDT [facility] Monocyte % 9.9 % 03/15/2024 1:11 PM EDT [facility] Eosinophil % 2.4 % 03/15/2024 1:11 PM EDT [facility] Basophil % 0.3 % 03/15/2024 1:11 PM EDT [facility] Neutrophil # 3.63 1.50 - 7.80 10*3/uL 03/15/2024 1:11 PM EDT [facility] Immature Grans # <0.03 <=0.03 10*3/uL 03/15/2024 1:11 PM EDT [facility] [employer] [facility] LAB[facility] Lymphocyte # 1.70 0.85 - 3.90 10*3/uL 03/15/2024 1:11 PM EDT [facility] [employer] [facility] Monocyte # 0.60 0.20 - 0.95 10*3/uL 03/15/2024 1:11 PM EDT [facility] [employer] [facility] Eosinophil # 0.20 0.02 - 0.50 10*3/uL 03/15/2024 1:11 PM EDT [facility] [employer] [facility] LAB[facility] Basophil # <0.03 0.00 - 0.20 10*3/uL 03/15/2024 1:11 PM EDT [facility] [employer] [facility] LAB[facility] nRBC % 0.0 /100 WBCs 03/15/2024 1:11 PM EDT [facility] [employer] [facility] LAB[facility] nRBC # <0.01 <0.01 10*3/uL 03/15/2024 1:11 PM EDT [facility] [employer] [facility] LAB[facility] Blood Structure of peripheral vein / Unknown Venipuncture / Unknown 03/15/2024 12:39 PM EDT 03/15/2024 12:59 PM EDT Tobias Vogt MD LAB BLOOD ORDERABLES Final Result [facility] [employer] CL[facility] PATHOLOG[facility] LABORATORY [address] [place] [address], * Hepatitis C Antibody w/Reflex to PCR (03/15/2024 12:39 PM EDT) Hepatitis C Antibody NON-REACT ALBINO NON-REACT ALBINO 03/16/2024 3:27 AM EDT [facility] Comment: HCV antibody was non-reactive. There is no laboratory evidence of HCV infection. In most cases, no further action is required. However, if recent HCV exposure is suspected, a test for HCV RNA (test code 62948) is suggested. For additional information please refer to http://education.Homeloc/faq/RFE97j2 (This link is being provided for informational/ educational purposes only.) Blood Structure of peripheral vein / Unknown Venipuncture / Unknown 03/15/2024 12:39 PM EDT 03/15/2024 12:58 PM EDT Narrative ELIUD DOMÍNGUEZ - 03/16/2024 3:27 AM EDT [facility] Received Date: us Tobias Vogt MD LAB BLOOD ORDERABLES Final Result [facility] [address] [facility] 3rd Floor, [place] [address], [place] [phone] [employer] [address] Floor, [place] [address], [place] [phone] * Phosphorus (03/15/2024 12:39 PM EDT) Phosphorus 3.4 2.5 - 4.5 mg/dL 03/15/2024 1:45 PM EDT [employer] CLINICAL PATHOLOGY LABORATORY Blood Structure of peripheral vein / Unknown Venipuncture / Unknown 03/15/2024 12:39 PM EDT 03/15/2024 12:58 PM EDT us Tobias Vogt MD LAB BLOOD ORDERABLES Final Result Performing Organization Address City/[facility]/ZIP Co de Phone Number [facility] [address] [place] [address], * (ABNORMAL) Hemoglobin A1c (03/15/2024 12:39 PM EDT) Hemoglobin A1C 6.3(H) <5.7 % of total Hgb 03/16/2024 2:05 AM EDT [facility] Comment: For someone without known diabetes, a [...] (MG/DL) 134 mg/dL 03/16/2024 2:05 AM EDT [facility] eAG (MMOL/L) 7.4 mmol/L 03/16/2024 2:05 AM EDT [facility] Blood Structure of peripheral vein / Unknown Venipuncture / Unknown 03/15/2024 12:39 PM EDT 03/15/2024 12:59 PM EDT Narrative [facility] - 03/16/2024 2:05 AM EDT [facility] Received Date: us Tobias Vogt MD LAB BLOOD ORDERABLES Final Result [facility] [address] [facility] 3rd Floor, [place] [address], [facility] [address] [facility] 3rd Floor, [place] [address], from Last 3 Months or Most Recently Relevant to Health Maintenance Insurance [facility] [place] [id number] AEST. [facility] [place] [id number] [facility] Advance Directives Documents on File Type Date Recorded Patient Portrait Photographer Expl [facility] Health Care Proxy 03/20/2024 5:28 PM 10- Care Teams Lens Silverer Relationship Specialty Start Date End Date Patient, Has No Pcp Or Ref DO NOT EDIT THIS RECORD VIA PROVIDER ON THE FLY PCP - General Pyrotechnic Assembler 03/15/24
--- OUTSIDE RECORDS SUMMARY | 2024-10-04 08:07 | XMS_ITS | Encounter Summary ---
Author Organization [employer] Address [address] [facility]t [place] [address] Care Team Providers Care Sales Training Coordinator Name Role Phone Macie Link DO Primary Care Provider [phone] Flor Clark PharmD Unavailable [phone] Encounter Details Date Type Department Care Team (Late st Contact Info) Description 09/09/2023 Orders Only [facility] MEDICINE [address] [place] [address] ProviderProsper MD Social History Tobacco Use Types [...] EDT Medication Management [facility] MEDICINE [address] [place] [address] Flor Clark, PharmD [address] [place] [address] 10/17/2024 2:30 PM EDT Office Visit [facility] ADULT DENTAL [address] [place] [address] Justin Anne, DMD [address] [place] [address] 11/13/2024 11:30 AM EDT Clinical Support [facility] MEDICINE [address] [place] [address] April Murrell, PADILLA 11/14/2024 2:00 PM EDT Office Visit [facility] ADULT DENTAL [address] [place] [address] Eleni Shin [address] [place] [address] 12/28/2024 1:30 PM EDT Office Visit [facility] OPTOMETRY [address] [place] [address] Dulce Whelan, OD [address] [place] [address] documented as of this encounter Goals Goal Patient Goal Type Associated Problems Recent Progress Patient-Stated? Author Hemoglobin A1c < 7 Result Component 6.3(04/18/202 5 10:51 AM EDT) No Flor Clark [...] HM COLONOSCOPY Routine 02/23/2022 7:37 AM EDT COLONOSCOPY Routine 02/25/2016 7:46 AM EDT documented in this encounter Results * Hm Colonoscopy (02/23/2022 7:37 AM EDT) us Historical Provider HEALTH MAINTENANCE Final Result * Colonoscopy (02/25/2016 7:46 AM EDT) us Historical Provider HEALTH MAINTENANCE Final Result documented in this encounter Visit Diagnoses Not on filedocumented in this encounter Additional Health Concerns Assessment Noted Time PHQ-9 Depression Total Score: 13 05/31/ 024 9:15 AM EST documented as of this encounter Care Teams Sales Training Coordinator Relationship Specialty Start Date End Date Macie Link DO [address] [place] [address] PCP - General Family Medicine 05/30/18 Flor Clark PharmD [address] [place] [address] Pharmacist Internal Medicine 08/18/23 documented as of this encounter
--- OUTSIDE RECORDS SUMMARY | 2024-10-04 08:07 | XMS_ITS | Encounter Summary ---
Author Organization [facility], Address [address] [place] [address] Phone Care Team Providers Care Benzene Washer Operator Name Role Phone Macie Link DO Primary Care Provider Unava ilable Encounter Details Date Type Department Care Team (Late st Contact Info) Description 11/27/2021 Documentation Only [facility], [address] [place] [address] Romario Ford MD [address] [place] [id number] Social History Tobacco Use Types Packs/Day Years [...] on filedocumented in this encounter Care Teams Benzene Washer Operator Relationship Specialty Start Date End Date Macie Link DO PCP - General 04/03/19 documented as of this encounter
--- OUTSIDE RECORDS SUMMARY | 2024-10-04 08:07 | XMS_ITS | Encounter Summary ---
Author Organization [employer] Address [address] [facility] 7t [place] [address] Care Team Providers Care Mold Maker Name Role Phone Macie Link DO Primary Care Provider [phone] Flor Clark PharmD Unavailable [phone] Reason for Visit * Reason Onset Date Comments DME from [employer] [facility] 10/03/2024 Encounter Details Date Type Department Care Team ([facility] st Contact Info) Description 10/03/2024 Telephone [facility] MEDICINE [address] [place] [address] Macie Link DO [address] [place] [address] DME from [email or web address] [facility]arek Social History Tobacco Use Types Packs/Day Years [...] encounter Miscellaneous Notes * Telephone Encounter - Nory Ram [place] - 10/03/2024 4:19 PM EDT Notes from 09/11/24 faxed to [facility] documented in this encounter Plan of Treatment Upcoming Encounters Date Type Department Care Team (Late st Contact Info) Description 10/11/2024 9:00 AM EDT Medication Management [facility] MEDICINE [address] [place] [address] Flor Clark, PharmD [address] [place] [address] 10/17/2024 2:30 PM EDT Office Visit [facility] ADULT DENTAL [address] [place] [address] Justin Anne, DMD [address] [place] [address] 11/13/2024 11:30 AM EDT Clinical Support [facility] MEDICINE [address] [place] [address] April Murrell RN 11/14/2024 2:00 PM EDT Office Visit [facility] ADULT DENTAL [address] [place] [address] [facility] [address] [place] [address] 12/28/2024 1:30 PM EDT Office Visit [facility] OPTOMETRY [address] [place] [address] Tip, Dulce, OD [address] [place] [address] documented as of this encounter Goals Goal [...] documented as of this encounter Care Teams Mold Maker Relationship Specialty Start Date End Date Macie Link DO [address] [place] [address] PCP - General Family Medicine 05/30/18 Flor Clark PharmD [address] [place] [address] Pharmacist Internal Medicine 08/18/23 documented as of this encounter
--- OUTSIDE RECORDS SUMMARY | 2024-10-04 08:07 | XMS_ITS | Encounter Summary ---
Author Organization [employer] Address [address] [facility] 7t [place] [address] Care Team Providers Care Hospital Aide Name Role Phone Macie Link DO Primary Care Provider [phone] Flor Clark PharmD Unavailable [phone] Reason for Visit * Reason Comments Med Refill Encounter Details Date Type Department Care Team (Late st Contact Info) Description 06/03/2023 Refill [facility] MEDICINE [address] [place] [address] Macie Link DO 230 [place] [address] Anxiety Social History Tobacco Use Types Packs/Day [...] Description 10/11/2024 9:00 AM EDT Medication Management [facility] MEDICINE [address] [place] [address] Flor Clark, PharmD [address] [place] [address] 10/17/2024 2:30 PM EDT Office Visit [facility] ADULT DENTAL [address] [place] [address] Justin Anne, SHAY [address] [place] [address] 11/13/2024 11:30 AM EDT Clinical Support [facility] MEDICINE [address] [place] [address] April Murrell, PADILLA 11/14/2024 2:00 PM EDT Office Visit [facility] ADULT DENTAL [address] [place] [address] Eleni Shin [address] [place] [address] 12/28/2024 1:30 PM EDT Office Visit [facility] OPTOMETRY [address] [place] [address] Dulce Whelan, OD 230 [place] [address] documented as of this encounter Visit Diagnoses Diagnosis Anxiety Anxiety state, unspecified documented in this encounter Additional Health Concerns Assessment Noted Time PHQ-9 Depression Total Score: 13 05/31/ 024 9:15 AM EST documented as of this encounter Care Teams Hospital Aide Relationship Specialty Start Date End Date Macie Link DO 230 [place], [place] [phone] PCP - General Family Medicine 05/30/18 Flor Clark PharmD [address] [place] [address] Pharmacist Internal Medicine 08/18/23 documented as of this encounter
--- OUTSIDE RECORDS SUMMARY | 2024-10-04 08:07 | XMS_ITS | Encounter Summary ---
Author Organization [employer] Address [address] [facility] 7t [place] [address] Care Team Providers Care Supervisor Yard Name Role Phone FaribaMacie Primary Care Provider [phone] Flor Clark PharmD Unavailable [phone] Reason for Visit * Reason Comments Med Refill Encounter Details Date Type Department Care Team (Late st Contact Info) Description 07/26/2023 Refill [facility] MEDICINE [address] [place] [address] Catherine Madera MD [address] [place] [address] Anxiety; Chronic neck pain Social History Tobacco [...] 9:00 AM EDT Medication Management [facility] MEDICINE [address] [place] [address] Flor Clark, PharmD [address] [place] [address] 10/17/2024 2:30 PM EDT Office Visit [facility] ADULT DENTAL [address] [place] [address] Justin Anne, SHAY [address] [place] [address] 11/13/2024 11:30 AM EDT Clinical Support [facility] MEDICINE [address] [place] [address] April Murrell, PADILLA 11/14/2024 2:00 PM EDT Office Visit [facility] ADULT DENTAL [address] [place] [address] Eleni Shin [address] [place] [address] 12/28/2024 1:30 PM EDT Office Visit [facility] OPTOMETRY [address] [place] [address] Dulce Whelan, OD 230 [place] [address] documented as of this encounter Visit Diagnoses Diagnosis Anxiety Anxiety state, unspecified Chronic neck pain Cervicalgia documented in this encounter Additional Health Concerns Assessment Noted Time PHQ-9 Depression Total Score: 13 024 9:15 AM EST documented as of this encounter Care Teams Supervisor Yard Relationship Specialty Start Date End Date Macie Link DO [address] [place] [address] PCP - General Family Medicine 05/30/18 Flor Clark PharmD [address] [place] [address] Pharmacist Internal Medicine 08/18/23 documented as of this encounter
--- OUTSIDE RECORDS SUMMARY | 2024-10-04 08:07 | XMS_ITS | Encounter Summary ---
Author Organization [employer] Address [address] [facility] 7t [place] [address] Care Team Providers Care Ag Equipment Field Service Technician Name Role Phone Macie Link DO Primary Care Provider Flor Clark PharmD Unavailable [phone] Reason for Visit * Reason Comments Med Refill Encounter Details Date Type Department Care Team (Late st Contact Info) Description 08/22/2023 Refill [facility] MEDICINE [address] [place] [address] Macie Link DO [address] [place], [place] [phone] Chronic neck pain; Anxiety Social History Tobacco [...] Description 10/11/2024 9:00 AM EDT Medication Management [facility] MEDICINE [address] [place] [address] Flor Clark, PharmD [address] [place] [address] 10/17/2024 2:30 PM EDT Office Visit [facility] ADULT DENTAL [address] [place] [address] Justin Anne, SHAY [address] [place] [address] 11/13/2024 11:30 AM EDT Clinical Support [facility] MEDICINE [address] [place] [address] April Murrell, PADILLA 11/14/2024 2:00 PM EDT Office Visit [facility] ADULT DENTAL [address] [place] [address] Eleni Shin [address] [place] [address] 12/28/2024 1:30 PM EDT Office Visit [facility] OPTOMETRY [address] [place] [address] Dulce Whelan, OD 230 [place] [address] documented as of this encounter Goals Goal [...] documented as of this encounter Care Teams Ag Equipment Field Service Technician Relationship Specialty Start Date End Date Macie Link DO [address] [place] [address] PCP - General Family Medicine 05/30/18 Flor Clark PharmD [address] [place] [address] Pharmacist Internal Medicine 08/18/23 documented as of this encounter
--- OUTSIDE RECORDS SUMMARY | 2024-10-04 08:07 | XMS_ITS | Encounter Summary ---
Author Organization [employer] Address [address] [facility] 7t [place] [address] Care Team Providers Care Carpet Tile Layer Name Role Phone Macie Link DO Primary Care Provider Flor Clark PharmD Unavailable [phone] Reason for Visit * Reason Onset Date Comments Prior Authorization 08/17/2023 Encounter Details Date Type Department Care Team (Late st Contact Info) Description 08/17/2023 Telephone [facility] MEDICINE [address] [place] [address] Macie Link DO [address] [place] [address] Prior Authorization Social History Tobacco Use Types [...] 2.5-2.5 % cream To be sent to: [facility] - [place], [place] - [address] [facility] documented in this encounter Plan of Treatment Upcoming Encounters Date Type Department Care Team (Late st Contact Info) Description 10/11/2024 9:00 AM EDT Medication Management [facility] MEDICINE [address] [place] [address] Flor Clark, PharmD [address] [place] [address] 10/17/2024 2:30 PM EDT Office Visit [facility] ADULT DENTAL [address] [place] [address] Justin Anne, DMD [address] [place] [address] 11/13/2024 11:30 AM EDT Clinical Support [facility] MEDICINE [address] [place] [address] April Murrell RN 11/14/2024 2:00 PM EDT Office Visit [facility] ADULT DENTAL [address] [place] [address] Aleida Eleni [address] [place] [address] 12/28/2024 1:30 PM EDT Office Visit [facility] OPTOMETRY [address] [place] [address] Dulce Whelan, OD [address] [place] [address] documented as of this encounter Goals Goal Patient Goal Type Associated Problems Recent Progress Patient-Stated? Author Hemoglobin A1c < 7 Result Component 6.3( 10:51 AM EDT) No Flor Clark, PharmD Note: A1c value [...] documented as of this encounter Care Teams Carpet Tile Layer Relationship Specialty Start Date End Date Macie Link DO [address] [place] [address] PCP - General Family Medicine 05/30/18 Flor Clark PharmD [address] [place] [address] Pharmacist Internal Medicine 08/18/23 documented as of this encounter
--- OUTSIDE RECORDS SUMMARY | 2024-10-04 08:07 | XMS_ITS | Encounter Summary ---
Author Organization [employer] Address [address] [facility] 7t [place] [address] Care Team Providers Care Inker Name Role Phone Macie Link DO Primary Care Provider [phone] Flor Clark PharmD Unavailable [phone] Reason for Visit * Reason Comments Med Refill Encounter Details Date Type Department Care Team (Late st Contact Info) Description 03/14/2023 Refill [facility] MEDICINE [address] [place] [address] Macie Link DO [address] [place] [address] Anxiety; Chronic neck pain Social History Tobacco [...] Description 10/11/2024 9:00 AM EDT Medication Management [facility] MEDICINE [address] [place] [address] Flor Clark, PharmD [address] [place] [address] 10/17/2024 2:30 PM EDT Office Visit [facility] ADULT DENTAL [address] [place] [address] Justin Anne, DMD [address] [place] [address] 11/13/2024 11:30 AM EDT Clinical Support [facility] MEDICINE [address] [place] [address] April Murrell, PADILLA 11/14/2024 2:00 PM EDT Office Visit [facility] ADULT DENTAL [address] [place] [address] Eleni Shin [address] [place] [address] 12/28/2024 1:30 PM EDT Office Visit [facility] OPTOMETRY [address] [place] [address] Dluce Whelan, OD [address] [place] [address] documented as of this encounter Visit Diagnoses Diagnosis Anxiety Anxiety state, unspecified Chronic neck pain Cervicalgia documented in this encounter Additional Health Concerns Assessment Noted Time PHQ-9 Depression Total Score: 2 07/06/19 23 9:23 AM EST documented as of this encounter Care Teams Inker Relationship Specialty Start Date End Date Macie Link DO [address] [place] [address] PCP - General Family Medicine 05/30/18 Flor Clark PharmD [address] [place] [address] Pharmacist Internal Medicine 08/18/23 documented as of this encounter
--- OUTSIDE RECORDS SUMMARY | 2024-10-04 08:07 | XMS_ITS | Encounter Summary ---
Author Organization [facility], Address [address] [place] [address] Phone Care Team Providers Care Coordinator Cardiopulmonary Services Name Role Phone Macie Link DO Primary Care Provider Unava ilable Encounter Details Date Type Department Care Team (Late st Contact Info) Description 12/09/2021 Documentation Only [facility], [address] [place] [address] Romario Ford MD [address] [place] [phone] Social History Tobacco Use Types Packs/Day Years [...] on filedocumented in this encounter Care Teams Coordinator Cardiopulmonary Services Relationship Specialty Start Date End Date Macie Link DO PCP - General 04/03/19 documented as of this encounter
--- OUTSIDE RECORDS SUMMARY | 2024-10-04 08:07 | XMS_ITS | Encounter Summary ---
Author Organization [employer] Address [address] [facility] 7t [place] [address] Care Team Providers Care Energy Derivatives Trader Name Role Phone Macie Link DO Primary Care Provider [phone] Flor Clark PharmD Unavailable [phone] Reason for Visit * Reason Comments Med Refill Encounter Details Date Type Department Care Team (Late st Contact Info) Description 03/11/2023 Refill [facility] MEDICINE [address] [place] [address] Macie Link DO [address] [place] [address] Chronic neck pain; Anxiety Social History Tobacco [...] Description 10/11/2024 9:00 AM EDT Medication Management [facility] MEDICINE [address] [place] [address] Flor Clark, DerikD [address] [place] [address] 10/17/2024 2:30 PM EDT Office Visit [facility] ADULT DENTAL [address] [place] [address] Justin Anne, DMD [address] [place] [address] 11/13/2024 11:30 AM EDT Clinical Support [facility] MEDICINE [address] [place] [address] April Murrell, PADILLA 11/14/2024 2:00 PM EDT Office Visit [facility] ADULT DENTAL [address] [place] [address] Eleni Shin [address] [place] [address] 12/28/2024 1:30 PM EDT Office Visit [facility] OPTOMETRY [address] [place] [address] Dulce Whelan, OD [address] [place] [address] documented as of this encounter Visit Diagnoses Diagnosis Chronic neck pain Cervicalgia Anxiety Anxiety state, unspecified documented in this encounter Additional Health Concerns Assessment Noted Time PHQ-9 Depression Total Score: 2 07/06/19 23 9:23 AM EST documented as of this encounter Care Teams Energy Derivatives Trader Relationship Specialty Start Date End Date Macie Link DO [address] [place] [address] PCP - General Family Medicine 05/30/18 Flor Clark PharmD [address] [place] [address] Pharmacist Internal Medicine 08/18/23 documented as of this encounter
--- OUTSIDE RECORDS SUMMARY | 2024-10-04 08:07 | XMS_ITS | Encounter Summary ---
Author Organization [employer] Address [address] [facility] [address] [place] [address] Care Team Providers Care Elevator Supervisor Name Role Phone Macie Link DO Primary Care Provider Flor Clark PharmD Unavailable Encounter Details Date Type Department Care Team ([facility] st Contact Info) Description 06/14/2023 Telephone [facility] MEDICINE [address] [place] [address] Macie Link DO [address] [place] [address] Social History Tobacco Use Types Packs/Day Years [...] Medication Management [facility] MEDICINE [address] [place] [address] Flor Clark, DerikD [address] [place] [address] 10/17/2024 2:30 PM EDT Office Visit [facility] ADULT DENTAL [address] [place] [address] Justin Anne, DMD [address] [place] [address] 11/13/2024 11:30 AM EDT Clinical Support [facility] MEDICINE [address] [place] [address] April Murrell, RN 11/14/2024 2:00 PM EDT Office Visit [facility] ADULT DENTAL [address] [place] [address] Eleni Shin [address] [place] [address] 12/28/2024 1:30 PM EDT Office Visit [facility] OPTOMETRY [address] [place] [address] Dulce Whelan, OD [address] [place] [address] documented as of this encounter Visit Diagnoses Not on filedocumented in this encounter Additional Health Concerns Assessment Noted Time PHQ-9 Depression Total Score: 13 024 9:15 AM EST documented as of this encounter Care Teams Elevator Supervisor Relationship Specialty Start Date End Date Macie Link DO [address] [place] [address] PCP - General Family Medicine 05/30/18 Flor Clark PharmD [address] [place] [address] Pharmacist Internal Medicine 08/18/23 documented as of this encounter
--- OUTSIDE RECORDS SUMMARY | 2024-10-04 08:07 | XMS_ITS ---
Author Organization [facility] Address [address] [place] [address] Care Team Providers Care Certified [employer] Administrator Name Role Phone Patient, Has No Pcp Or Ref Primary Care Provider Unavailable Transplant Episode Kidney Candidate [facility] ([place], [place]) - [facility] Evaluation began on 03/15/2024 Marked as Active on 03/15/2024 Kidney CoordinatorLynda Diaz RN Fax: N/A Email: N/A Scores Score Value Updated Exceptions/Reas ons CPRA Not available EPTS (Calc) 88 10/04/2024 [facility] Organ Diagnosis Organ Primary Contributory Kidney Diabetes Mellitus - Type II Care Team Name Role Phone Fax Email Lynda Diaz RN Kidney Coordinator [phone] N/A N/A Anastacio Nickerson MD Referring Physician [phone] N/A Events Pre-Transplant Referred: 12/21/2023 Evaluation began: 03/15/2024 Dialysis History Dialysis History Start End Type Comments Center 12/17/2021 In-center Hemodialysis M, W, F [facility] Dialysis Center Information Center Phone Fax Address [facility] [phone] [address] [facility] [id number] [facility] [address]
--- OUTSIDE RECORDS SUMMARY | 2024-10-04 08:07 | XMS_ITS | Encounter Summary ---
Author Organization [employer] Address [address] [place] [address] 7t [place] [address] Care Team Providers Care Stopper Grinder Name Role Phone Macie Link DO Primary Care Provider PuFlor quinones PharmD Unavailable Reason for Visit * Reason Comments Med Refill Encounter Details Date Type Department Care Team (Late st Contact Info) Description 01/13/2023 Refill [facility] MEDICINE [address] [place] [address] Macie Link DO [address] [place] [address] Chronic neck pain Social History Tobacco Use [...] Description 10/11/2024 9:00 AM EDT Medication Management [facility] MEDICINE [address] [place] [address] Puia, Flor, PharmD [address] [place] [address] 10/17/2024 2:30 PM EDT Office Visit [facility] ADULT DENTAL [address] [place] [address] Justin Anne, DMD [address] [place] [address] 11/13/2024 11:30 AM EDT Clinical Support [facility] MEDICINE [address] [place] [address] April Murrell, PADILLA 11/14/2024 2:00 PM EDT Office Visit [facility] ADULT DENTAL [address] [place] [address] Eleni Shin [address] [place] [address] 12/28/2024 1:30 PM EDT Office Visit [facility] OPTOMETRY [address] [place] [address] Dulce Whelan, OD 230 [place] [address] documented as of this encounter Visit Diagnoses Diagnosis Chronic neck pain Cervicalgia documented in this encounter Additional Health Concerns Assessment Noted Time PHQ-9 Depression Total Score: 2 07/06/19 23 9:23 AM EST documented as of this encounter Care Teams Stopper Grinder Relationship Specialty Start Date End Date Macie Link DO [address] [place] [address] PCP - General Family Medicine 05/30/18 Flor Clark PharmD [address] [place] [address] Pharmacist Internal Medicine 08/18/23 documented as of this encounter
--- OUTSIDE RECORDS SUMMARY | 2024-10-04 08:07 | XMS_ITS | Encounter Summary ---
Author Organization [employer] Address [address] [facility] 7t [place] [address] Care Team Providers Care Furniture Installer Name Role Phone Macie Link DO Primary Care Provider [phone] Flor Clark PharmD Unavailable [phone] Reason for Visit * Reason Comments Med Refill Encounter Details Date Type Department Care Team (Late st Contact Info) Description 03/08/2023 Refill [facility] MEDICINE [address] [place] [address] Macie Link DO [address] [place] [address] Anxiety; Chronic neck pain Social History Tobacco [facility] [address] [place] [address] Flro Clark, PharmD [address] [place] [address] 10/17/2024 2:30 PM EDT Office Visit [facility] ADULT DENTAL [address] [place] [address] Justin Anne, DMD [address] [place] [address] 11/13/2024 11:30 AM EDT Clinical Support [facility] MEDICINE [address] [place] [address] April Murrell, PADILLA 11/14/2024 2:00 PM EDT Office Visit [facility] ADULT DENTAL [address] [place] [address] Eleni Shin [address] [place] [address] 12/28/2024 1:30 PM EDT Office Visit [facility] OPTOMETRY [address] [place] [address] Dulce Whelan, OD [address] [place] [address] documented as of this encounter Visit Diagnoses Diagnosis Anxiety Anxiety state, unspecified Chronic neck pain Cervicalgia documented in this encounter Additional Health Concerns Assessment Noted Time PHQ-9 Depression Total Score: 2 07/06/19 23 9:23 AM EST documented as of this encounter Care Teams Furniture Installer Relationship Specialty Start Date End Date Macie Link DO [address] [place] [address] PCP - General Family Medicine 05/30/18 Flor Clark PharmD [address] [place] [address] Pharmacist Internal Medicine 08/18/23 documented as of this encounter
== END 2024-10-04 08:03 | disposition home or self-care (01) ==
LOC: HO.US 08:02
PROVIDERS: PCP Family Medicine; Visit Provider Internal Medicine Cardiovascular Disease
DX: R74.01 Elevation of levels of liver transaminase levels (principal)
CPT/HCPCS: 76700; 76981

== ENCOUNTER → 2024-10-04 08:04 | Outpatient (BNV) | payer MEDICARE, MEDICAID, SELFPAY | PROVIDERS: PCP Family Medicine; Visit Provider Radiology Diagnostic Radiology | DX: R16.0 Hepatomegaly, not elsewhere classified (principal); N28.1 Cyst of kidney, acquired | CPT/HCPCS: 76700; 76981 ==

== ENCOUNTER 2024-11-08 13:24 | Outpatient (AMB) | payer MEDICARE, MEDICAID, SELFPAY ==
--- NOTE | 2024-11-08 13:28 | A.OFFVIS_ITS ---
Vital Signs 11/08/24 13:31 Height 5 ft 6 in Weight 196 lb BMI 31.6 Intake Visit Reasons: OV-B/L Knee Durolane Inj-was giving 08/08/24 Intake Note: Joshua is a 64 year old male who presents today for follow up of bilateral knee osteoarthritis. He was given a bilateral knee durolane injections on 08/08/24. He states that he got temporary relief from the injections. His pains have returned. He has tried Tylenol which gives him only mild relief. He is not able to tolerate anti-inflammatory medicines because he is on Eliquis. He wishes to hold off on surgery if at all possible. Allergies No Known Allergies Allergy (Verified 11/08/24 13:29) Medication List - Last Reconciled 11/08/24 by Mathew Cheema MD albuterol sulfate 90 mcg/actuation (ProAir HFA) 2 puffs PO Q6H PRN amiodarone 100 mg (1/2 x 200 mg) PO QAM amlodipine 10 mg PO DAILY apixaban (Eliquis) 5 mg PO BID atorvastatin 80 mg PO BEDTIME blood sugar diagnostic (FreeStyle Lite Strips) carvedilol 12.5 mg PO BID clonazepam 1 mg PO BID clotrimazole 1% 1 appl topical BID colchicine mg PO gabapentin 100 mg PO BID insulin aspart U-100 (Novolog FlexPen U-100 Insulin aspart) 1 sliding scale dose subcut TIDAC insulin glargine (Lantus Solostar U-100 Insulin) 34 units subcut DAILY ipratropium bromide 1 spray intranasal TID levothyroxine 112 mcg PO DAILY@0600 lidocaine 5% 1 patch topical DAILY lidocaine-prilocaine 2.5-2.5 % 1 appl topical DAILY PRN loratadine 10 mg PO Q OTHER DAY nitroglycerin 0.4 mg sublingual Q5M PRN omeprazole 40 mg PO BID oxycodone-acetaminophen 10-325 mg 1 tab PO Q4H PRN pen needle, diabetic (Pentips Pen Needle) semaglutide (Ozempic) mg subcut sevelamer carbonate 1,600 mg PO TIDWM zolpidem 10 mg PO BEDTIME PFS Medical History History of cardioversion Hx of sleep apnea GERD (gastroesophageal reflux disease) Atrial flutter Colon adenomas Asthma Colon cancer screening End stage renal disease Type 2 diabetes mellitus with unspecified complications Essential hypertension Normocytic anemia Non-cardiac chest pain CAD (coronary artery disease) CVA (cerebral vascular accident) Hypertension Surgical History History of colonoscopy H/O neck surgery Hx of colonoscopy History of bladder surgery Stented coronary artery History of nephrectomy Family History Other No family history of coronary artery disease Social History Household Members: Spouse Housing: Apartment Are you a primary skin care technician to a significant other at home: No Do you presently have visiting nurse or other home services: Yes Alcohol intake: former Patient Tobacco Use Status: Former Tobacco user Tobacco use type: Cigarette service: No Current occupational status: disabled Physical Exam Vital Signs: BMI result Body Mass Index 31.6 Const Other: Well-nourished well-developed very friendly male awake alert and oriented x3 in no acute distress Extrem Other: Bilateral lower extremity examination shows good capillary refill, no skin lesions noted, normal sensation light touch Bilateral knee examination shows minimal effusions, palpable crepitus with range of motion, pain with range of motion, no instability Office Procedures AMB Joint Injection/Aspiration Joint Injection/Aspiration Primary Site: left knee Prep: site was prepped using aseptic technique Injected: 40 mg of, DepoMedrol and 1% plain lidocaine Procedure: The patient tolerated the procedure well Coding 82766 - Large joint Procedure code (CPT) selection complete AMB Joint Injection/Aspiration Joint Injection/Aspiration Primary Site: right knee Prep: site was prepped using aseptic technique Injected: 40 mg of, DepoMedrol and 1% plain lidocaine Procedure: The patient tolerated the procedure well Coding 08485 - Large joint Procedure code (CPT) selection complete Results Reviewed Results Reviewed: X-rays of the patient's bilateral knee show joint space narrowing, subchondral sclerosis, no acute bony abnormalities Assessment & Plan Assessment & Plan (1) Osteoarthritis of left knee: Code(s): M17.12 - Unilateral primary osteoarthritis, left knee Category: Medical (2) Osteoarthritis of right knee: Code(s): M17.11 - Unilateral primary osteoarthritis, right knee Category: Medical Plan Mr. Akil Pretty presents with bilateral knee pains due to degenerative joint disease. I had a lengthy discussion with the patient regarding the treatment options. The risks and benefits of bilateral knee cortisone injections were discussed at length with the patient. The patient wished to proceed. He tolerated the injections well. He will continue with his home exercise program. He will contact me prior to his follow-up appointment in 3 months should any questions or concerns arise. Feel free to call me at any time should questions regarding his orthopedic management arise. I spent 22 minutes in reviewing the patient's records and imaging studies, seeing the patient and documenting in the medical record. Orders: Orders AMB Joint Injection/Aspiration 11/08/24 M17.11 - Unilateral primary osteoarthr itis, right knee AMB Joint Injection/Aspiration 11/08/24 M17.12 - Unilateral primary osteoarthritis, left knee Coding Level of Care Code Est Pt Level 3 (49653) Complex EM visit Add On G2211 Diagnoses Osteoarthritis of left knee M17.12 Osteoarthritis of right knee M17.11 CPT Codes Coding - 32632 Large joint: 87685 - Large joint ([id number]) Coding - 46639 Large joint: 41211 - Large joint ([id number])
[2024-11-08 13:31] VITALS: BMI 31.6
--- OUTSIDE RECORDS SUMMARY | 2024-11-08 15:38 | XMS_ITS | Encounter Summary ---
Author Organization [facility], Address [address] [place] [address] Phone Care Team Providers Care Crusher Loader Operator Name Role Phone Macie Link DO Primary Care Provider Unava ilable Encounter Details Date Type Department Care Team (Late st Contact Info) Description 07/10/2021 Documentation Only [facility], [address] [place] [address] Romario Ford MD [address] [place] [phone] Social History Tobacco Use Types Packs/Day Years [...] on filedocumented in this encounter Care Teams Crusher Loader Operator Relationship Specialty Start Date End Date Macie Link DO PCP - General 04/03/19 documented as of this encounter
== END 2024-11-08 13:48 | disposition home or self-care (01) ==
LOC: HO.HOS 13:24
PROVIDERS: PCP Family Medicine; Visit Provider Orthopaedic Surgery
DX: M17.0 Bilateral primary osteoarthritis of knee (principal)
CPT/HCPCS: 20610; 99213

== ENCOUNTER → 2024-11-08 13:24 | Outpatient (BNVA) | payer OTHER, SELFPAY | PROVIDERS: PCP Family Medicine; Visit Provider Orthopaedic Surgery | DX: M17.11 Unilateral primary osteoarthritis, right knee (principal); M17.12 Unilateral primary osteoarthritis, left knee | CPT/HCPCS: 20610; 99212; J1010; J2003 ==

== ENCOUNTER 2024-11-13 13:07 | Outpatient (REF) | payer OTHER, SELFPAY ==
--- OUTSIDE RECORDS SUMMARY | 2024-11-13 14:55 | XMS_ITS | Encounter Summary ---
Author Organization [facility], Address [address] [place] [address] Phone Care Team Providers Care Cupola Tender Helper Name Role Phone Macie Link DO Primary Care Provider Unava ilable Encounter Details Date Type Department Care Team (Late st Contact Info) Description 07/10/2021 Documentation Only [facility], [address] [place] [address] Romario Ford MD [address] [place] [phone] Social History Tobacco Use Types Packs/Day Years [...] on filedocumented in this encounter Care Teams Cupola Tender Helper Relationship Specialty Start Date End Date Macie Link DO PCP - General 04/03/19 documented as of this encounter
[2024-11-16 10:39] LABS: Alprazolam, GCMS Urine NEGATIVE; Aminoclonazepam, GCMS Urine 534
[2024-11-16 10:40] LABS: Lorazepam GCMS Urine NEGATIVE; Nordiazepam, GCMS Urine NEGATIVE; Oxazepam, GCMS Urine NEGATIVE
[2024-11-16 10:41] LABS: Alphahydroxymidazolam,GCMS Ur NEGATIVE; Alphahydroxytriazolam, GCMS Ur NEGATIVE; Flurazepam Metabolite,GCMS Ur NEGATIVE; Temazepam, GCMS Urine NEGATIVE
== END 2024-11-13 13:08 | disposition home or self-care (01) ==
LOC: HO.HHCLNP 13:07
PROVIDERS: Visit Provider Family Medicine
DX: Z79.899 Other long term (current) drug therapy (principal)
CPT/HCPCS: 80346

== ENCOUNTER 2024-11-19 11:26 | Outpatient (REF) | payer OTHER, SELFPAY ==
--- OUTSIDE RECORDS SUMMARY | 2024-11-19 13:08 | XMS_ITS | Encounter Summary ---
Author Organization [facility], Address [address] [place] [address] Phone Care Team Providers Care Color Control Supervisor Name Role Phone Macie Link DO Primary Care Provider Unava ilable Encounter Details Date Type Department Care Team (Late st Contact Info) Description 07/10/2021 Documentation Only [facility], [address] [place] [address] Romario Ford MD [address] [place] [phone] Social History Tobacco Use Types Packs/Day Years [...] on filedocumented in this encounter Care Teams Color Control Supervisor Relationship Specialty Start Date End Date Macie Link DO PCP - General 04/03/19 documented as of this encounter
[2024-11-22 07:28] LABS: Fructosamine 370 umol/L (205-285)
== END 2024-11-19 11:27 | disposition home or self-care (01) ==
LOC: HO.HHCL 11:26
PROVIDERS: PCP Family Medicine; Visit Provider Family Medicine
DX: E11.22 Type 2 diabetes mellitus with diabetic chronic kidney disease (principal); N18.6 End stage renal disease; Z99.2 Dependence on renal dialysis; Z79.4 Long term (current) use of insulin
CPT/HCPCS: 36415; 82985

== ENCOUNTER 2025-02-12 17:03 | Outpatient (REF) | payer OTHER, SELFPAY ==
--- OUTSIDE RECORDS SUMMARY | 2025-02-12 09:00 | XMS_ITS | Encounter Summary ---
Author Organization [employer] Address [address] [facility] [address] [place] [address] Care Team Providers Care Program Host Name Role Phone ArcadioMacie smith Primary Care Provider + [phone] Flor Clark PharmD Unavailable [phone] Reason for Visit * Reason Comments BRANCH SPECIALIST RV Encounter Details Date Type Department Care Team (Latest Contact Info) Description 02/12/2025 9:00 AM EDT Clinical Support [facility] MEDICINE [address] [place] [address] April Murrell RN Long-term current use of opiate analgesic (Primary Dx); Long-term current use of benzodiazepine Social History Tobacco Use Types Packs/Day Years [...] Progress Notes * April Murrell RN - 02/12/2025 9:00 AM EDT SUBJECTIVE: Joshua Barnard is a 64 y.o. year old male who presents for BRANCH SPECIALIST RV Preferred language for medical information: Occitan Interpreted needed: No Joshua Barnard does report adherence to Percocet 10 mg, take 1 tablet every 4 hours PRN, last refilled 01/15/2025. Joshua Barnard does report adherence to Clonazepam (Klonopin) 1 mg, take 1 tablet every 12 hours PRN, last refilled 01/14/2025. The patient last took Percocet on: 02/12/2025 Medication is: 100% % effective at alleviating pain. The patient last took Clonazepam (Klonopin) on: 02/11/2025 Medication effective: Yes Sleep habits: No issues Therapist: Yes OBJECTIVE: RN WELLNESS checked: 02/12/2025 Pill count completed for Percocet , count today is 1 , anticipated count should be 0, this is as expected. Pill count completed for Clonazepam (Klonopin), count today is 1 , anticipated count should be 0, this is as expected. Vital Signs Pain Score: 7 Pain Loc: Back Pain Education: Yes Additional pain site: neck and his knee's Last PCP visit: 09/11/2024 Controlled substance agreement signed: Controlled Substance Agreement 11/13/2024 BRANCH SPECIALIST Tier: 2 Current Medications[1] Smoking status: Denies ETOH use: Denies Illicit substances: Denies Marijuana use: No Lab Results Component Value Date POCTHC Negative 11/13/2024 POCCOCAINEUR Negative 11/13/2024 POCOPIATEUR Negative 11/13/2024 DOAUR Negative 11/13/2024 POCAMPHETAMI Negative 11/13/2024 POCBENZODIUR Negative 11/13/2024 POCBARBSCRN Negative 11/13/2024 POCMETHADOUR Negative 11/13/2024 POCBUPSCRN Negative 11/13/2024 POCTCAUR Negative 11/13/2024 POCMDMAUR Negative 11/13/2024 POCOXYCODONE Positive 11/13/2024 POCPHENCYCUR Negative 11/13/2024 PROPOXUR Negative 11/13/2024 FENTANYLURIN Negative 11/13/2024 Pt unable to void today. Oral swab sent for Drug toxicology monitoring. ASSESSMENT: Encounter Diagnoses Name Primary? Long-term current use of opiate analgesic Yes Long-term current use of benzodiazepine PLAN: Information on pain group given: Previously discussed Information on acupuncture given: Previously discussed Narcan education provided: Previously discussed Narcan prescription: active Refills of Percocet and Clonazepam are already at pharmacy awaiting pickup. Joshua Barnard will continue taking medication as prescribed and follow up at the next [facility] visit or sooner if needed. Joshua Barnard has verbalized understanding of care plan. Future Appointments Date Time Provider Department Center 02/21/2025 10:00 AM Flor Clark PharmD MEDICINE [facility] 05/15/2025 9:00 AM April Murrell RN MEDICINE [facility] 07/01/2025 1:00 PM Eleni CHAPMAN DENT [facility] April Murrell RN [1] Current Outpatient Medications: clonazePAM (KlonoPIN) 1 MG tablet, TAKE 1 TABLET BY MOUTH TWICE DAILY IN THE MORNING AND AT BEDTIMEAS NEEDED FOR ANXIETY, Disp: 56 tablet, Rfl: 0 oxyCODONE-acetaminophen (Percocet) 10-325 MG tablet, Take 1 tablet by mouth every 4 (four) hours ifneeded for severe pain for up to 28 days. Do not start before February 12, 2025., Disp: 168 tablet, Rfl: 0 Accu-Chek Softclix Lancets lancets, TEST BLOOD SUGAR 3 TIMES PER DAY, Disp: 100 each, Rfl: 11 albuterol (Ventolin HFA) 108 (90 Base) MCG/ACT inhaler, INHALE 2 PUFFS BY MOUTH EVERY 4 TO 6 HOURS NEEDED FOR WHEEZING OR SHORTNESS OF BREATH, Disp: 18 g, Rfl: 11 Alcohol Swabs (Easy Touch Alcohol Prep Medium) 70 % pads, Use up to 4 daily as directed, Disp: 100 each, Rfl: 11 amiodarone (Pacerone) 200 MG tablet, Take 200 mg by mouth Once per day., Disp: , Rfl: amLODIPine (Norvasc) 10 MG tablet, TAKE 1 TABLET BY MOUTH EVERY MORNING, Disp: 90 tablet, Rfl: 1 atorvastatin (Lipitor) 80 MG tablet, Take 1 tablet (80 mg) by mouth at bedtime., Disp: 90 tablet, Rfl: 3 BD Pen Needle Katerina Ultrafine 32G X 4 MM [facility], USE DIRECTED FOUR TIMES DAILY, Disp: 100 each, Rfl: 3 calcitriol (Rocaltrol) 0.25 MCG capsule, TAKE 1 CAPSULE BY MOUTH ON MON, TUE & TUE, Disp: , Rfl: carvedilol (Coreg) 12.5 MG tablet, , Disp: , Rfl: cetirizine (ZyrTEC) 10 MG tablet, TAKE 1/2 TABLET BY MOUTH ONCE DAILY, Disp: 15 tablet, Rfl: 10 clotrimazole (Lotrimin) 1 % cream, APPLY TOPICALLY TO THE AFFECTED AREA(S) TWICE DAILY IN THE MORNING AND IN THE EVENING, Disp: 60 g, Rfl: 0 colchicine 0.6 MG tablet, Take 1/2 tablet once daily., Disp: 45 tablet, Rfl: 3 Continuous Glucose Gas Technician (FreeStyle Gurmeet 2 Yatahey) device, Use for continuous glucose monitoring per package directions, Disp: 1 each, Rfl: 0 Continuous Glucose Sensor (FreeStyle Gurmeet 2 Sensor) [facility], USE DIRECTED TO TEST BLOOD SUGAR EVERY 8 HOURS CHANGE EVERY 14 DAYS, Disp: 6 each, Rfl: 3 cyanocobalamin (Vitamin B-12) 1000 MCG tablet, Take 1 tablet (1,000 mcg) by mouth 2 (two) times a week., Disp: 8 tablet, Rfl: 11 Diclofenac Sodium 1 % gel, APPLY 2 GRAMS TOPICALLY TO AFFECTED AREA(S) TWICE DAILY NEEDED FOR PAIN, Disp: 100 g, Rfl: 2 Eliquis 5 MG tablet, TAKE 1 TABLET BY MOUTH TWICE DAILY IN THE MORNING AND IN THE EVENING, Disp: , Rfl: gabapentin (Neurontin) 100 MG capsule, Take 100 mg by mouth 2 times daily., Disp: , Rfl: glucose blood (FreeStyle Precision Andrés Test) test strip, Use to test blood sugar up to 3 times daily, as directed, Disp: 100 each, Rfl: 11 glucose blood (OneTouch Ultra) test strip, Use to test blood sugar 3 times daily, Disp: 100 each, Rfl: 11 insulin glargine (Lantus SoloStar) 100 UNIT/ML pen, INJECT 20 UNITS SUBCUTANEOUSLY ONCE DAILY, Disp: 15 mL, Rfl: 3 ipratropium (Atrovent) 0.03 % nasal spray, USE 2 SPRAYS IN EACH NOSTRIL THREE TIMES DAILY DIRECTED, Disp: 30 mL, Rfl: 11 levothyroxine (Synthroid, Levoxyl) 137 MCG tablet, Take 1 tablet by mouth every morning, 30 minutesbefore any other medications or food., Disp: 90 tablet, Rfl: 3 lidocaine (Lidoderm) 5 % patch, .APPLY 1 PATCH TOPICALLY TO SKIN, LEAVE ON FOR 12 HOURS AND OFF FOR12 HOURS DIRECTED, Disp: 30 patch, Rfl: 5 Methoxy PEG-Epoetin Beta (MIRCERA IJ), 75 mcg., Disp: , Rfl: naloxone (Narcan) 4 mg/0.1 mL nasal spray, FOR SUSPECTED OPIOID OVERDOSE. SPRAY 0.1mL IN ONE NOSTRIL. REPEAT IN ALTERNATE NOSTRIL 2-3 MINUTES IF NEEDED. SEEK MEDICAL ATTENTION IMMEDIATELY EVEN IF PATIENT RESPONDS., Disp: 2 each, Rfl: 3 omeprazole (PriLOSEC) [address] capsule, TAKE 1 CAPSULE BY MOUTH TWICE DAILY IN THE MORNING AND IN THE EVENING WITH FOOD, Disp: , Rfl: Semaglutide, 2 MG/DOSE, (Ozempic, 2 MG/DOSE,) 8 MG/3ML solution pen-injector, Inject 0.75 mL (2 mg)under the skin 1 (one) time per week., Disp: 3 mL, Rfl: 11 sevelamer carbonate (Renvela) 800 MG tablet, TAKE 2 TABLETS BY MOUTH THREE TIMES DAILY WITH MEALS, Disp: , Rfl: sucralfate (Carafate) 1 g tablet, TAKE 1 TABLET BY MOUTH THREE TIMES DAILY BEFORE MEALS AND AT BEDTIME FOR 14 DAYS, Disp: , Rfl: Viagra 100 MG tablet, TAKE 1 TABLET 1 HOUR BEFORE SEXUAL RELATIONS ONCE DAILY NEEDED., Disp: 10 tablet, Rfl: 0 zolpidem (Ambien) 10 MG tablet, Take 1 tablet (10 mg) by mouth if needed at bedtime for sleep for up to 28 days. Do not start before February 11, 2025., Disp: 28 tablet, Rfl: 0 documented in this encounter Plan of Treatment Upcoming Encounters Date Type Department Care Team (Late st Contact Info) Description 02/21/2025 10:00 AM EDT Medication Management [facility] MEDICINE [address] [place] [phone] Flor Clark PharmD [address] [place] [address] 05/15/2025 9:00 AM EST Clinical Support [facility] MEDICINE [address] [place] [address] April Murrell RN 07/01/2025 1:00 PM EST Office Visit [facility] ADULT DENTAL [address] [place], [place] [phone] Eleni Shin [address] [place] [address] Scheduled Orders Name Type Priority Associated Diagnoses Orde r Schedule Drug Toxicology Monitoring Base Panel, w/Confirmation, Oral Fluid Lab Routine Long-term current use of opiate analgesic Long-term current use of benzodiazepine Ordered: 02/12/2025 documented as of this encounter Goals Goal Patient Goal Type Associated Problems Recent Progress Patient-Stated? Author Hemoglobin A1c < 7 Result Component 6.3( 10:51 AM EDT) No Flor Clark, PharmMariajose Note: A1c value [...] as of this encounter Visit Diagnoses Diagnosis Long-term current use of opiate analgesic- Primary Encounter for long-term (current) use of other medications Long-term current use of benzodiazepine documented in this encounter Additional Health Concerns Assessment Noted Time PHQ-9 Depression Total Score: 9 09/12/19 25 11:18 AM EDT documented as of this encounter Care Teams Program Host Relationship Specialty Start Date End Date Macie Link DO [address] [place] [address] PCP - General Family Medicine 05/30/18 Flor Clark PharmD [address] [place] [address] Pharmacist Internal Medicine 08/18/23 documented as of this encounter
--- OUTSIDE RECORDS SUMMARY | 2025-02-12 19:12 | XMS_ITS | Encounter Summary ---
Author Organization [facility], Address [address] [place] [address] Phone Care Team Providers Care Physician Executive Name Role Phone Macie Link DO Primary Care Provider Unava ilable Encounter Details Date Type Department Care Team (Late st Contact Info) Description 07/30/2021 Documentation Only [facility], [address] [place] [address] Romario Ford MD [address] [place] [phone] Social History Tobacco Use Types Packs/Day Years [...] filedocumented in this encounter Care Teams Physician Executive Relationship Specialty Start Date End Date Macie Link DO PCP - General 04/03/19 documented as of this encounter
--- OUTSIDE RECORDS SUMMARY | 2025-02-12 19:12 | XMS_ITS | Encounter Summary ---
Author Organization [employer] Address [address] [facility] [address] [place] [address] Care Team Providers Care Leather Crafter Name Role Phone Macie Link DO Primary Care Provider Flor Clark PharmD Unavailable [phone] Reason for Visit * Reason Onset Date Comments Call Back Request 02/11/2025 Encounter Details Date Type Department Care Team ([facility] st Contact Info) Description 02/11/2025 Telephone [facility] MEDICINE [address] [place] [address] Macie Link DO [address] [place] [address] Call Back Request Social History Tobacco Use Types Packs/Day [...] Telephone Encounter - Anum Sams RN - 02/12/2025 9:41 AM EDT Noted. TC placed to [facility] pharmacy who reports the patient last p/u lidocaine patches on 10/16/24 for a 30 day supply. RN was informed in September, the patients insurance was [employer] however now his insurance is [facility] which does NOT cover the medication. RN was informed [facility] does not require any patches and they require a PA. TC placed to patient [phone] however patient did not answer and VM is full; RN unable to leaveVM. TC placed to [phone], spoke to patient and informed of above message. Patient informed a message will be sent to the PA specialist team for PA to be submitted for lidocaine patches. Patient advised on PA process and verbalized understanding. RN also educated patient on proper way to use pat ches (12 hours on and 12 hours off). Patient verbalized understanding. Patient to f/u PRN. * Telephone Encounter - Tony Lord - 02/11/2025 9:55 AM EDT Tc from pt requesting a call back regarding lidocaine (Lidoderm) 5 % patch . Pt is requesting a refill on the patches but it is in process of a PA. Gasser Machine Operator advised the patched can take 7-14 business days. Gasser Machine Operator then asked pt how the patches were being used, due to pt not having anymore. Pt stated he used one every 12 hours. Gasser Machine Operator advised that the patches were 12 hours withthe patches on and 12 hours with the patches off. Pt is requesting a call back from nurse. Contact pt at [phone]. documented in this encounter Plan of Treatment Upcoming Encounters Date Type Department Care Team (Late st Contact Info) Description 02/21/2025 10:00 AM EDT Medication Management [facility] MEDICINE [address] [place] [address] Flor Clark PharmD [address] [place] [address] 05/15/2025 9:00 AM EST Clinical Support [facility] MEDICINE [address] [place] [address] April Murrell RN 07/01/2025 1:00 PM EST Office Visit [facility] ADULT DENTAL [address] [place] [address] Eleni Shin [address] [place] [address] documented as of this encounter Goals Goal Patient Goal Type Associated Problems Recent Progress Patient-Stated? Author Hemoglobin A1c < 7 Result Component 6.3( 5 10:51 AM EDT) No Flor Clark, PharmD [...] documented as of this encounter Care Teams Leather Crafter Relationship Specialty Start Date End Date Macie Link DO [address] [place] [address] PCP - General Family Medicine 05/30/18 Flor Clark PharmD [address] [place] [address] Pharmacist Internal Medicine 08/18/23 documented as of this encounter
--- OUTSIDE RECORDS SUMMARY | 2025-02-12 19:12 | XMS_ITS | Encounter Summary ---
Author Organization [employer] Address [address] [facility] [address] [place] [address] Care Team Providers Care Engineering Group Leader Name Role Phone FaribaMacie Primary Care Provider + [phone] Flor Clark PharmD Unavailable [phone] Encounter Details Date Type Department Care Team (Latest Contact Info) Description 02/12/2025 Travel Social History Tobacco Use Types Packs/Day [...] Description 02/21/2025 10:00 AM EDT Medication Management [facility] MEDICINE [address] [place] [address] Flor Clark PharmD [address] [place] [address] 05/15/2025 9:00 AM EST Clinical Support [facility] MEDICINE [address] [place] [address] April Murrell RN 07/01/2025 1:00 PM EST Office Visit [facility] ADULT DENTAL [address] [place] [address] Eleni Shin [address] [place] [address] documented as of this encounter Goals Goal [...] documented as of this encounter Care Teams Engineering Group Leader Relationship Specialty Start Date End Date Macie Link DO [address] [place] [address] PCP - General Family Medicine 05/30/18 Flor Clark PharmD [address] [place] [address] Pharmacist Internal Medicine 08/18/23 documented as of this encounter
--- OUTSIDE RECORDS SUMMARY | 2025-02-12 19:12 | XMS_ITS | Encounter Summary ---
Author Organization [facility], Address [address] [place] [address] Phone Care Team Providers Care Alteration Specialist Name Role Phone Macie Link DO Primary Care Provider Unava ilable Encounter Details Date Type Department Care Team (Late st Contact Info) Description 07/10/2021 Documentation Only [facility], [address] [place] [address] Romario oFrd MD [address] [place] [phone] Social History Tobacco Use Types Packs/Day Years [...] on filedocumented in this encounter Care Teams Alteration Specialist Relationship Specialty Start Date End Date Macie Link DO PCP - General 04/03/19 documented as of this encounter
--- OUTSIDE RECORDS SUMMARY | 2025-02-12 19:12 | XMS_ITS | Encounter Summary ---
Author Organization [facility], Address [address] [place] [address] Phone Care Team Providers Care Iron Setter Name Role Phone Macie Link DO Primary Care Provider Unava ilable Encounter Details Date Type Department Care Team (Late st Contact Info) Description 10/23/2021 Documentation Only [facility], [address] [place] [address] Romario Ford MD [address] [place] [phone] Social History Tobacco Use Types Packs/Day Years [...] on filedocumented in this encounter Care Teams Iron Setter Relationship Specialty Start Date End Date Macie Link DO PCP - General 04/03/19 documented as of this encounter
--- OUTSIDE RECORDS SUMMARY | 2025-02-12 19:12 | XMS_ITS | Encounter Summary ---
Author Organization [facility], Address [address] [place] [address] Phone Care Team Providers Care Intensive Care Ambulance Paramedic Name Role Phone Macie Link DO Primary Care Provider Unava ilable Encounter Details Date Type Department Care Team (Late st Contact Info) Description 09/06/2021 Documentation Only [facility], [address] [place] [address] Roamrio Ford MD [address] [place] [phone] Social History Tobacco Use Types Packs/Day Years [...] on filedocumented in this encounter Care Teams Intensive Care Ambulance Paramedic Relationship Specialty Start Date End Date Macie Link DO PCP - General 04/03/19 documented as of this encounter
--- OUTSIDE RECORDS SUMMARY | 2025-02-12 19:12 | XMS_ITS | Encounter Summary ---
Author Organization [facility], Address [address] [place] [address] Phone Care Team Providers Care Cupola Patcher Name Role Phone Macie Link DO Primary Care Provider Unava ilable Encounter Details Date Type Department Care Team (Late st Contact Info) Description 09/24/2021 Documentation Only [facility], [address] [place] [address] Romario Ford MD [address] [place] [phone] Social History Tobacco Use Types Packs/Day Years [...] filedocumented in this encounter Care Teams Cupola Patcher Relationship Specialty Start Date End Date Macie Link DO PCP - General 04/03/19 documented as of this encounter
--- OUTSIDE RECORDS SUMMARY | 2025-02-12 19:12 | XMS_ITS | Encounter Summary ---
Author Organization [facility], Address [address] [place] [address] Phone Care Team Providers Care Method Consultant Name Role Phone Macie Link DO Primary Care Provider Unava ilable Encounter Details Date Type Department Care Team (Late st Contact Info) Description 09/21/2021 Documentation Only [facility], [address] [place] [address] Romario Ford MD [address] [place] [phone] Social History Tobacco Use Types Packs/Day Years [...] on filedocumented in this encounter Care Teams Method Consultant Relationship Specialty Start Date End Date Macie Link DO PCP - General 04/03/19 documented as of this encounter
--- OUTSIDE RECORDS SUMMARY | 2025-02-12 19:12 | XMS_ITS | Encounter Summary ---
Author Organization [facility] [place], Address [address] [place] [address] Phone Care Team Providers Care I&C Tech Name Role Phone Macie Link DO Primary Care Provider Unava ilable Encounter Details Date Type Department Care Team (Late st Contact Info) Description 09/06/2021 Documentation Only [facility], [address] [place] [address] Romario Ford MD [address] [place] [phone] Social History Tobacco Use Types Packs/Day Years [...] on filedocumented in this encounter Care Teams I&C Tech Relationship Specialty Start Date End Date Macie Link DO PCP - General 04/03/19 documented as of this encounter
--- OUTSIDE RECORDS SUMMARY | 2025-02-12 19:12 | XMS_ITS | Encounter Summary ---
Author Organization [facility], Address [address] [place] [address] Phone Care Team Providers Care Veneer Glue Spreader Name Role Phone Macie Link DO Primary Care Provider Unava ilable Encounter Details Date Type Department Care Team (Late st Contact Info) Description 09/24/2021 Documentation Only [facility], [address] [place] [address] Romario Ford MD [address] [place] [phone] Social History Tobacco Use Types Packs/Day Years [...] on filedocumented in this encounter Care Teams Veneer Glue Spreader Relationship Specialty Start Date End Date Macie Link DO PCP - General 04/03/19 documented as of this encounter
--- OUTSIDE RECORDS SUMMARY | 2025-02-12 19:12 | XMS_ITS | Encounter Summary ---
Author Organization [facility], Address [address] [place] [address] Phone Care Team Providers Care Rotary Filter Operator Name Role Phone Macie Link DO Primary Care Provider Unava ilable Encounter Details Date Type Department Care Team (Late st Contact Info) Description 09/01/2021 Documentation Only [facility], [address] [place] [phone] Estefania Sung PA [address] [place] [phone] Social History Tobacco Use Types Packs/Day Years [...] on filedocumented in this encounter Care Teams Rotary Filter Operator Relationship Specialty Start Date End Date Macie Link DO PCP - General 04/03/19 documented as of this encounter
--- OUTSIDE RECORDS SUMMARY | 2025-02-12 19:12 | XMS_ITS | Encounter Summary ---
Author Organization [facility], Address [address] [place] [address] Phone Care Team Providers Care Flagger Name Role Phone Macie Link DO Primary Care Provider Unava ilable Encounter Details Date Type Department Care Team (Late st Contact Info) Description 09/04/2021 Documentation Only [facility], [address] [place] [address] Romario Ford MD [address] [place] [phone] Social History Tobacco Use Types Packs/Day Years [...] on filedocumented in this encounter Care Teams Flagger Relationship Specialty Start Date End Date Macie Link DO PCP - General 04/03/19 documented as of this encounter
--- OUTSIDE RECORDS SUMMARY | 2025-02-12 19:13 | XMS_ITS | Encounter Summary ---
Author Organization [employer] Address [address] [facility] 7t [place] [address] Care Team Providers Care Signal Operator Name Role Phone TiffanyMacie hamilton Primary Care Provider Flor Clark PharmD Unavailable Encounter Details Date Type Department Care Team ([facility] st Contact Info) Description 08/13/[address] [facility] MED & PEDS [address] [place], [place] [phone] Cayla Sandoval MD [address] [place] [address] Type 2 diabetes mellitus with chronic kidney disease on chronic dialysis, with long-term current use of insulin ([facility]) (Primary Dx) Social History Tobacco Use Types [...] Description 02/21/2025 10:00 AM EDT Medication Management [facility] MEDICINE [address] [place] [address] Flor Clark PharmD [address] [place] [address] 05/15/2025 9:00 AM EST Clinical Support [facility] MEDICINE [address] [place] [address] April Murrell RN 07/01/2025 1:00 PM EST Office Visit [facility] ADULT DENTAL [address] [place] [address] Eleni Shin [address] [place] [address] documented as of this encounter Visit Diagnoses Diagnosis Type 2 diabetes mellitus with chronic kidney disease on chronic dialysis, with long-term current use of insulin ([facility])- Primary documented in this encounter Additional Health Concerns Assessment Noted Time PHQ-9 Depression Total Score: 2 07/06/19 23 9:23 AM EST documented as of this encounter Care Teams Signal Operator Relationship Specialty Start Date End Date Macie Link DO [address] [place] [address] PCP - General Family Medicine 05/30/18 Flor Clark PharmD [address] [place] [address] Pharmacist Internal Medicine 08/18/23 documented as of this encounter
--- OUTSIDE RECORDS SUMMARY | 2025-02-12 19:13 | XMS_ITS | Encounter Summary ---
Author Organization [employer] [facility] Address [address] [place] [address] 7t [place] [address] Care Team Providers Care Pilot Plant Supervisor Name Role Phone Macie Link DO Primary Care Provider [phone] Flor Clark PharmD Unavailable [phone] Encounter Details Date Type Department Care Team (Late st Contact Info) Description 06/10/2022 Telephone [facility] [address] [place] [address] Macie Link DO [address] [place] [address] Social History Tobacco Use Types Packs/Day Years [...] Department Care Team (Late Contact Info) Description 02/21/2025 10:00 AM EDT Medication Management [facility] MEDICINE [address] [place] [address] Flor Clark, PharmD [address] [place] [address] 05/15/2025 9:00 AM EST Clinical Support [facility] [address] [place] [address] April Murrell RN 07/01/2025 1:00 PM EST Office Visit [facility] ADULT DENTAL [address] [place] [address] Eleni Shin [address] [place] [address] documented as of this encounter Visit Diagnoses Not on filedocumented in this encounter Care Teams Pilot Plant Supervisor Relationship Specialty Start Date End Date Macie Link DO [address] [place] [address] PCP - General Family Medicine 05/30/18 Flor Clark PharmD [address] [place] [address] Pharmacist Internal Medicine 08/18/23 documented as of this encounter
--- OUTSIDE RECORDS SUMMARY | 2025-02-12 19:13 | XMS_ITS | Encounter Summary ---
Author Organization [employer] Address [address] [facility] 7t [place] [address] Care Team Providers Care Principal Network Engineer Name Role Phone Macie Link DO Primary Care Provider [phone] Flor Clark PharmD Unavailable Reason for Visit * Reason Comments Med Refill Encounter Details Date Type Department Care Team (Late st Contact Info) Description 08/20/2024 Refill [facility] MEDICINE [address] [place] [address] Macie Link DO [address] [place] [address] Chronic neck pain; Anxiety Social History Tobacco [...] Description 02/21/2025 10:00 AM EDT Medication Management [facility] MEDICINE [address] [place] [address] Flor Clark, PharmD [address] [place] [address] 05/15/2025 9:00 AM EST Clinical Support [facility] MEDICINE [address] [place] [address] April Murrell RN 07/01/2025 1:00 PM EST Office Visit [facility] ADULT DENTAL [address] [place] [address] Eleni Shin [address] [place] [address] documented as of this encounter Goals Goal [...] documented as of this encounter Care Teams Principal Network Engineer Relationship Specialty Start Date End Date Macie Link DO [address] [place] [address] PCP - General Family Medicine 05/30/18 Flor Clark PharmD [address] [place] [address] Pharmacist Internal Medicine 08/18/23 documented as of this encounter
--- OUTSIDE RECORDS SUMMARY | 2025-02-12 19:13 | XMS_ITS | Encounter Summary ---
Author Organization [facility], Address [address] [place] [address] Phone Care Team Providers Care Anatomic Pathologist Name Role Phone Macie Link DO Primary Care Provider Unava ilable Encounter Details Date Type Department Care Team (Late st Contact Info) Description 02/06/2025 Treatment [facility], [address] [place] [address] Devora Pedroza MD [address] [place] [address] [place] [phone] End stage renal disease; Dependence on renal [...] Dialysis Note - Devora Pedroza MD - 02/06/2025 12:00 AM EDT Patient: Joshua Barnard : 1960 C: [facility] Note Type: Dialysis Rounds-Comp Service Date: 02/06/2025 This patient was personally seen [id number] for a complete visit as part of routine monthly dialysis care for end stage renal disease. Attending Fulfillment Representative: DEVORA PEDROZA Dialysis Location: [facility] Schedule: Shift: 1 OVERVIEW Patient is stable. TRANSPLANT STATUS COMMENT COMMENTS: Work up at [facility] ADDITIONAL COMMENT COMMENTS: 02/06/25 Patient is stable Medications reviewed Physical Exam [...] reviewed. Dietary adjustments made in conjunction with functional skills tutor. 7.Transplant: The patient is being evaluated for a kidney transplant. 01/02/2025 Patient is stable Medications reviewed Physical Exam [...] reviewed. Dietary adjustments made in conjunction with functional skills tutor. 7.Transplant: The patient is being evaluated for a kidney transplant. 12/05/2024 Patient is stable Medications reviewed Physical Exam [...] reviewed. Dietary adjustments made in conjunction with functional skills tutor. 7.Transplant: The patient is being evaluated for a kidney transplant. 10/29/24 Patient is stable Medications reviewed Physical Exam [...] reviewed. Dietary adjustments made in conjunction with functional skills tutor. 7.Transplant: The patient is being evaluated for a kidney transplant. 10/10/2024 Patient is stable Medications reviewed Physical Exam [...] reviewed. Dietary adjustments made in conjunction with functional skills tutor. 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 08/01/24 Patient is stable Medications reviewed Physical [...] reviewed. Dietary adjustments made in conjunction with functional skills tutor. 7.Transplant: The patient is being evaluated for [...] reviewed. Dietary adjustments made in conjunction with functional skills tutor. 7.Transplant: The patient is being evaluated for [...] reviewed. Dietary adjustments made in conjunction with functional skills tutor. 7.Transplant: The patient is being evaluated for a kidney transplant at [facility]. 05/14 stable awaiting appt at [facility] for eval and activation on transplant list Signed by: DEVORA PEDROZA MD on 02/06/2025 at 08:21:49 PM Transcribed by: DEVORA PEDROZA MD on 02/06/2025 at 08:21:49 PM documented in this encounter Plan of Treatment Not on file documented as of this encounter Visit Diagnoses Diagnosis End stage renal disease Dependence on renal dialysis documented in this encounter Care Teams Anatomic Pathologist Relationship Specialty Start Date End Date Macie Link DO PCP - General 04/03/19 documented as of this encounter
--- OUTSIDE RECORDS SUMMARY | 2025-02-12 19:13 | XMS_ITS | Encounter Summary ---
Author Organization [employer] Address [address] [facility] 7t [place] [address] Care Team Providers Care Edge Setter Name Role Phone Macie Link DO Primary Care Provider [phone] Flor Clark PharmD Unavailable [phone] Reason for Visit * Reason Comments Med Refill Encounter Details Date Type Department Care Team (Late st Contact Info) Description 12/13/2023 Refill [facility] MEDICINE [address] [place] [address] Macie Link DO [address] [place] [address] Anxiety; Chronic neck pain Social History Tobacco [...] Description 02/21/2025 10:00 AM EDT Medication Management [facility] MEDICINE [address] [place] [address] Flor Clark, PharmD [address] [place] [address] 05/15/2025 9:00 AM EST Clinical Support [facility] MEDICINE [address] [place] [address] April Murrell RN 07/01/2025 1:00 PM EST Office Visit [facility] ADULT DENTAL [address] [place] [address] Eleni Shin [address] [place] [address] documented as of this encounter Goals Goal [...] documented as of this encounter Care Teams Edge Setter Relationship Specialty Start Date End Date Macie Link DO [address] [place] [address] PCP - General Family Medicine 05/30/18 Flor Clark PharmD [address] [place] [address] Pharmacist Internal Medicine 08/18/23 documented as of this encounter
--- OUTSIDE RECORDS SUMMARY | 2025-02-12 19:13 | XMS_ITS | Encounter Summary ---
Author Organization [employer] [facility] Address [address] [place] [address] 7t [place] [address] Care Team Providers Care Tap Grinder Name Role Phone Macie Link DO Primary Care Provider [phone] Flor Clark PharmD Unavailable Reason for Visit * Reason Comments Med Refill Encounter Details Date Type Department Care Team ([facility] Contact Info) Description 10/14/2022 Refill [facility] MEDICINE [address] [place] [address] Macie Link DO [address] [place] [address] Anxiety Social History Tobacco Use Types Packs/Day [...] Upcoming Encounters Date Type Department Care Team ([facility] st Contact Info) Description 02/21/2025 10:00 AM EDT Medication Management [facility] MEDICINE [address] [place] [address] Flor Clark PharmD [address] [place] [address] 05/15/2025 9:00 AM EST Clinical Support [facility] MEDICINE [address] [place] [address] April Murrell, RN 07/01/2025 1:00 PM EST Office Visit [facility] ADULT DENTAL [address] [place] [address] Eleni Shin [address] [place] [address] documented as of this encounter Visit Diagnoses Diagnosis Anxiety Anxiety state, unspecified documented in this encounter Additional Health Concerns Assessment Noted Time PHQ-9 Depression Total Score: 2 07/06/19 23 9:23 AM EST documented as of this encounter Care Teams Tap Grinder Relationship Specialty Start Date End Date Macie Link DO [address] [place] [address] PCP - General Family Medicine 05/30/18 Flor Clark PharmD [address] [place] [address] Pharmacist Internal Medicine 08/18/23 documented as of this encounter
--- OUTSIDE RECORDS SUMMARY | 2025-02-12 19:13 | XMS_ITS | Encounter Summary ---
Author Organization [facility], Address [address] [place] [address] Phone Care Team Providers Care Raised Printer Name Role Phone Macie Link DO Primary Care Provider Unava ilable Encounter Details Date Type Department Care Team (Late st Contact Info) Description 03/16/2024 Documentation Only [facility], [address] [place] [address] Jimena Gibson [place] [address] [place] [address] Social History Tobacco Use Types [...] on filedocumented in this encounter Care Teams Raised Printer Relationship Specialty Start Date End Date Macie Link DO PCP - General 04/03/19 documented as of this encounter
--- OUTSIDE RECORDS SUMMARY | 2025-02-12 19:13 | XMS_ITS | Clinical Summary ---
Author Organization [facility], Address [address] [place] [address] Phone Care Team Providers Care Construction Trades Contractor Name Role Phone Macie Link DO Primary [...] Encounters Date Type Department Care Team Description 02/06/2025 Treatment [facility], [place] [address] Romario Ford MD End stage renal disease; Dependence on renal dialysis 01/21/2025 Treatment [facility], [place] [address] Romario Ford MD End stage renal disease; Dependence on renal dialysis 01/02/2025 Treatment [facility], [place] [address] Romario Ford MD End stage renal disease; Dependence on renal dialysis 12/24/2024 Treatment [facility], [place] [address] Romario Ford MD End stage renal disease; Dependence on renal dialysis 12/05/2024 Treatment [facility], [place] [address] Romario Ford MD End stage renal disease; [...] 94 10/28/2022 10:48 AM EDT Temperature 36.4 C (97.6 F) 10/28/2022 10:48 AM EDT Respiratory Rate 16 07/15/2022 8:00 AM EST [...] 10/04/2022, Additional history exists Diabetes: Hemoglobin A1C 12/14/20242 025, 09/11/2024, 09/04/2024, Additional history exists Influenza Vaccine (#1) 2025 3, 02/20/2022, 02/23/2021, Additional history exists Pneumococcal Vaccine: [...] (12/21/2023) Hemoglobin 10.1(L) 14.0 - 18.0 g/dL [facility] Hemoglobin x 3 30.3(L) 42.0 - 54.0 % [facility] 12/21/2023 12/22/2023 8:1 6 AM EDT Narrative [facility] - 12/22/2023 Unless otherwise specified, test(s) performed at: [facility], [address] [place], [place] [id number] SOCIAL MEDIA MARKETER: Jos Curran M.D. For any questions, please call customer service at FREQUENCY:OTHER Resulting Agency Comment Specimen source: Blood Anastacio Nickerson MD LAB BLOOD ORDERABLES Final Re sult Performing Organization Address [facility] de Phone Number [facility] See order comments or contact performing lab Unknown, [place] * (ABNORMAL) SPECIAL CHEMISTRY (11/30/2023) Hemoglobin A1C 7.3(H) 4.8 - 5.9 % [facility] 11/30/2023 12/02/2023 1:1 5 PM EDT Narrative [facility] - 12/03/2023 Unless otherwise specified, test(s) performed at: [facility], [address] [place] [id number] SOCIAL MEDIA MARKETER: Jos Curran M.D. For any questions, please call customer service at FREQUENCY:MONTHLY Resulting Agency Comment Specimen source: Blood Anastacio Nickerson MD LAB BLOOD BANK TEST ORDERABLE S Final Result Performing Organization Address [facility]/ZIP Co de Phone Number [facility] See order comments or contact performing lab Unknown, [place] from Last 3 Months or Most Recently Relevant to Health Maintenance Insurance [facility] One [employer] Dual SNP ([id number]) Medicaid [place] Care Teams Construction Trades Contractor Relationship Specialty Start Date End Date Macie Link DO PCP - General 04/03/19
--- OUTSIDE RECORDS SUMMARY | 2025-02-12 19:13 | XMS_ITS | Encounter Summary ---
Author Organization [employer] Address [address] [facility] 7t [place] [address] Care Team Providers Care Abstract Writer Name Role Phone Macie Link DO Primary Care Provider [phone] Flor Clark PharmD Unavailable Reason for Visit * Reason Comments Med Refill Encounter Details Date Type Department Care Team (Late st Contact Info) Description 12/17/2024 Refill [facility] MEDICINE [address] [place] [address] Macie Link DO [address] [place] [address] Chronic neck pain Social History Tobacco Use [...] Description 02/21/2025 10:00 AM EDT Medication Management [facility] MEDICINE [address] [place] [address] Flor Clark PharmD [address] [place] [address] 05/15/2025 9:00 AM EST Clinical Support [facility] MEDICINE [address] [place] [address] April Murrell RN 07/01/2025 1:00 PM EST Office Visit [facility] ADULT DENTAL [address] [place] [address] Eleni Shin [address] [place] [address] documented as of this encounter Goals Goal [...] documented as of this encounter Care Teams Abstract Writer Relationship Specialty Start Date End Date Macie Link DO [address] [place] [address] PCP - General Family Medicine 05/30/18 Flor Clark PharmD [address] [place] [address] Pharmacist Internal Medicine 08/18/23 documented as of this encounter
--- OUTSIDE RECORDS SUMMARY | 2025-02-12 19:13 | XMS_ITS | Encounter Summary ---
Author Organization [employer] Address [address] [facility] 7t [place] [address] Care Team Providers Care Zoology Teacher Name Role Phone Macie Link DO Primary Care Provider Flor Clark PharmD Unavailable [phone] Reason for Visit * Reason Comments Med Refill Encounter Details Date Type Department Care Team (Late st Contact Info) Description 02/06/2024 Refill [facility] MEDICINE [address] [place] [address] Macie Link DO 230 [place] [address] Chronic neck pain; Anxiety Social History Tobacco [...] Description 02/21/2025 10:00 AM EDT Medication Management [facility] MEDICINE [address] [place] [address] Flor Clark, PharmD 230 [place] [address] 05/15/2025 9:00 AM EST Clinical Support [facility] MEDICINE [address] [place] [address] April Murrell RN 07/01/2025 1:00 PM EST Office Visit [facility] ADULT DENTAL [address] [place] [address] Eleni Shin [address] [place] [address] documented as of this encounter Goals Goal [...] documented as of this encounter Care Teams Zoology Teacher Relationship Specialty Start Date End Date Macie Link DO [address] [place] [address] PCP - General Family Medicine 05/30/18 Flor Clark PharmD [address] [place] [address] Pharmacist Internal Medicine 08/18/23 documented as of this encounter
--- OUTSIDE RECORDS SUMMARY | 2025-02-12 19:13 | XMS_ITS | Encounter Summary ---
Author Organization [employer] Address [address] [facility] 7t [place] [address] Care Team Providers Care Scrap Sorter Name Role Phone ArcadioMacie smith DO Primary Care Provider [phone] Flro Clark PharmD Unavailable [phone] Reason for Visit * Reason Comments Med Refill Encounter Details Date Type Department Care Team (Late st Contact Info) Description 06/25/2024 Refill [facility] MEDICINE [address] [place] [address] Catherine Madera MD 230 [place], [place] [phone] Anxiety; Chronic neck pain Social History Tobacco [...] Description 02/21/2025 10:00 AM EDT Medication Management [facility] MEDICINE [address] [place] [address] Flor Clark, PharmD [address] [place] [address] 05/15/2025 9:00 AM EST Clinical Support [facility] MEDICINE [address] [place] [address] April Murrell RN 07/01/2025 1:00 PM EST Office Visit [facility] ADULT DENTAL [address] [place] [address] Eleni Shin [address] [place] [address] documented as of this encounter Goals Goal [...] documented as of this encounter Care Teams Scrap Sorter Relationship Specialty Start Date End Date Macie Link DO [address] [place] [address] PCP - General Family Medicine 05/30/18 Flor Clark PharmD [address] [place] [address] Pharmacist Internal Medicine 08/18/23 documented as of this encounter
--- OUTSIDE RECORDS SUMMARY | 2025-02-12 19:13 | XMS_ITS | Encounter Summary ---
Author Organization [facility], Address [address] [place] [address] Phone Care Team Providers Care Tractor Mechanic Helper Name Role Phone Macie Link DO Primary Care Provider Unava ilable Reason for Visit * Reason Comments Med Refill Encounter Details Date Type Department Care Team (Late st Contact Info) Description 07/23/2022 Refill [facility], [address] [place] [place] [address] Romario Ford MD [address] [facility] [place] [phone] Social History Tobacco Use Types Packs/Day Years [...] on filedocumented in this encounter Care Teams Tractor Mechanic Helper Relationship Specialty Start Date End Date Macie Link DO PCP - General 04/03/19 documented as of this encounter
--- OUTSIDE RECORDS SUMMARY | 2025-02-12 19:13 | XMS_ITS | Encounter Summary ---
Author Organization [employer] [facility] Address [address] [place] [address] 7t [place] [address] Care Team Providers Care Edger Tailer Name Role Phone Macie Link DO Primary Care Provider Flor Clark PharmD Unavailable Encounter Details Date Type Department Care Team (Late st Contact Info) Description 07/27/2022 Abstract [facility] MEDICINE [address] [place] [address] Macie Link DO [address] [place] [address] Social History Tobacco Use Types Packs/Day Years [...] Description 02/21/2025 10:00 AM EDT Medication Management [facility] MEDICINE [address] [place] [address] Flor Clark PharmD [address] [place] [address] 05/15/2025 9:00 AM EST Clinical Support [facility] MEDICINE 230 [place] [address] April Murrell RN 07/01/2025 1:00 PM EST Office Visit [facility] ADULT DENTAL 230 [place], [place] [phone] Eleni Shin 230 [place] [address] documented as of this encounter Visit Diagnoses Not on filedocumented in this encounter Additional Health Concerns Assessment Noted Time PHQ-9 Depression Total Score: 2 07/06/19 23 9:23 AM EST documented as of this encounter Care Teams Edger Tailer Relationship Specialty Start Date End Date Macie Link DO [address] [place] [address] PCP - General Family Medicine 05/30/18 Flor Clark, Jaspreet [address] [place] [address] Pharmacist Internal Medicine 08/18/23 documented as of this encounter
--- OUTSIDE RECORDS SUMMARY | 2025-02-12 19:13 | XMS_ITS | Encounter Summary ---
Author Organization [facility], Address [address] [place] [address] Phone Care Team Providers Care Epic Willow Specialist Name Role Phone Macie Link DO Primary Care Provider Unava ilable Reason for Visit * Reason Comments Med Refill Encounter Details Date Type Department Care Team (Late st Contact Info) Description 09/08/2022 Refill [facility], [address] [place] [address] Romario Ford MD [address] [facility] [place] [phone] Social History Tobacco Use Types Packs/Day Years [...] on filedocumented in this encounter Care Teams Epic Willow Specialist Relationship Specialty Start Date End Date Macie Link DO PCP - General 04/03/19 documented as of this encounter
--- OUTSIDE RECORDS SUMMARY | 2025-02-12 19:13 | XMS_ITS | Encounter Summary ---
Author Organization [employer] Address [address] [facility] 7t [place] [address] Care Team Providers Care Competency Evaluated Nurse Aide Name Role Phone Macie Link DO Primary Care Provider [phone] Flor Clark PharmD Unavailable [phone] Reason for Visit * Reason Comments Med Refill Encounter Details Date Type Department Care Team (Late st Contact Info) Description 11/05/2023 Refill [facility] MEDICINE 230 [place] [address] Macie Link DO 230 [place] [address] Asthma, unspecified asthma severity, unspecified whether complicated, [...] 02/21/2025 10:00 AM EDT Medication Management [facility] MEDICINE [address] [place] [address] Flor Clark, PharmD 230 [place] [address] 05/15/2025 9:00 AM EST Clinical Support [facility] MEDICINE [address] [place] [address] April Murrell RN 07/01/2025 1:00 PM EST Office Visit [facility] ADULT DENTAL [address] [place] [address] Eleni Shin [address] [place] [address] documented as of this encounter Goals Goal [...] documented as of this encounter Care Teams Competency Evaluated Nurse Aide Relationship Specialty Start Date End Date Macie Link DO 230 [place] [address] PCP - General Family Medicine 05/30/18 Flor Clark PharmD 230 [place] [address] Pharmacist Internal Medicine 08/18/23 documented as of this encounter
--- OUTSIDE RECORDS SUMMARY | 2025-02-12 19:13 | XMS_ITS | Encounter Summary ---
Author Organization [employer] Address [address] [facility] 7t [place] [address] Care Team Providers Care Core Feeder Name Role Phone Macie Link DO Primary Care Provider [phone] Flor Clark PharmD Unavailable [phone] Reason for Visit * Reason Comments Med Refill Encounter Details Date Type Department Care Team (Late st Contact Info) Description 03/05/2024 Refill [facility] MEDICINE 230 [place] [address] Macie Link DO 230 [place] [address] Seasonal allergic rhinitis, unspecified trigger Social History [...] Description 02/21/2025 10:00 AM EDT Medication Management [facility] MEDICINE [address] [place] [address] Flor Clark PharmD 230 [place] [address] 05/15/2025 9:00 AM EST Clinical Support [facility] MEDICINE [address] [place] [address] April Murrell RN 07/01/2025 1:00 PM EST Office Visit [facility] ADULT DENTAL [address] [place] [address] Eleni Shin [address] [place] [address] documented as of this encounter Goals Goal [...] documented as of this encounter Care Teams Core Feeder Relationship Specialty Start Date End Date Macie Link DO 230 [place] [address] PCP - General Family Medicine 05/30/18 Flor Clark PharmD 230 [place] [address] Pharmacist Internal Medicine 08/18/23 documented as of this encounter
--- OUTSIDE RECORDS SUMMARY | 2025-02-12 19:13 | XMS_ITS | Encounter Summary ---
Author Organization [employer] Address [address] [place] [address] 7t [place] [address] Care Team Providers Care Volunteer Services Director Name Role Phone FaribaMacie Primary Care Provider [phone] Flor Clark PharmD Unavailable [phone] Encounter Details Date Type Department Care Team (Late st Contact Info) Description 05/25/2022 Orders Only [facility] [address] [place] [address] Macie Stiles LPN Social History Tobacco Use [...] Description 02/21/2025 10:00 AM EDT Medication Management [facility] MEDICINE [address] [place] [address] PuiaKaylynsa, PharmD 230 [place] [address] 05/15/2025 9:00 AM EST Clinical Support [facility] MEDICINE [address] [place] [address] April Murrell RN 07/01/2025 1:00 PM EST Office Visit [facility] ADULT DENTAL [address] [place] [address] Eleni Shin 230 [place] [address] documented as of this encounter Visit Diagnoses Not on filedocumented in this encounter Care Teams Volunteer Services Director Relationship Specialty Start Date End Date Macie Link DO 230 [place] [address] PCP - General Family Medicine 05/30/18 Flor Clark PharmD [address] [place] [address] Pharmacist Internal Medicine 08/18/23 documented as of this encounter
--- OUTSIDE RECORDS SUMMARY | 2025-02-12 19:13 | XMS_ITS | Encounter Summary ---
Author Organization [facility], Address [address] [place] [address] Phone Care Team Providers Care Shear Tender Name Role Phone aMcie Link DO Primary Care Provider Unava ilable Encounter Details Date Type Department Care Team (Late st Contact Info) Description 10/19/2023 Documentation Only [facility], [address] [place] [address] Jimena Gibson [place] [address] [place] [address] Social History Tobacco Use [...] on filedocumented in this encounter Care Teams Shear Tender Relationship Specialty Start Date End Date Macie Link DO PCP - General 04/03/19 documented as of this encounter
--- OUTSIDE RECORDS SUMMARY | 2025-02-12 19:13 | XMS_ITS | Encounter Summary ---
Author Organization [employer] Address [address] [facility] 7t [place] [address] Care Team Providers Care Medical Care Administrator Name Role Phone Macie Link DO Primary Care Provider Flor Clark PharmD Unavailable Reason for Visit * Reason Comments Med Refill Encounter Details Date Type Department Care Team ([facility] st Contact Info) Description 03/29/2024 Refill [facility] MEDICINE [address] [place] [address] Macie Link DO [address] [place] [address] Chronic neck pain Social History Tobacco Use [...] Description 02/21/2025 10:00 AM EDT Medication Management [facility] MEDICINE [address] [place] [address] Flor Clark, PharmD [address] [place] [address] 05/15/2025 9:00 AM EST Clinical Support [facility] MEDICINE [address] [place] [address] April Murrell RN 07/01/2025 1:00 PM EST Office Visit [facility] ADULT DENTAL 230 [place] [address] Eleni Shin [address] [place] [address] documented as of this encounter Goals Goal Patient Goal Type Associated Problems Recent Progress Patient-Stated? Author Hemoglobin A1c < 7 Result Component 6.3( 10:51 AM EDT) No Flor Clark PharmD [...] as of this encounter Care Teams Medical Care Administrator Relationship Specialty Start Date End Date Macie Link DO 230 [place] [address] PCP - General Family Medicine 05/30/18 Flor Clark PharmD [address] [place] [address] Pharmacist Internal Medicine 08/18/23 documented as of this encounter
--- OUTSIDE RECORDS SUMMARY | 2025-02-12 19:13 | XMS_ITS | Encounter Summary ---
Author Organization [employer] [facility] Address [address] [place] [address] 7t [place] [address] Care Team Providers Care Lapel Padder Blindstitch Name Role Phone Macie Link DO Primary Care Provider PuFlor quinones PharmD Unavailable Encounter Details Date Type Department Care Team (Late st Contact Info) Description 05/18/2022 Orders Only [facility] [address] [place] [address] Mariella Diallo LPN Social History Tobacco Use [...] Description 02/21/2025 10:00 AM EDT Medication Management [facility] MEDICINE [address] [place] [address] PuiaGeovaniFlor, PharmD [address] [place] [address] 05/15/2025 9:00 AM EST Clinical Support [facility] MEDICINE [address] [place] [address] April Murrell RN 07/01/2025 1:00 PM EST Office Visit [facility] ADULT DENTAL [address] [place] [address] Eleni Shin [address] [place] [address] documented as of this encounter Visit Diagnoses Not on filedocumented in this encounter Care Teams Lapel Padder Blindstitch Relationship Specialty Start Date End Date Macie Link DO [address] [place] [address] PCP - General Family Medicine 05/30/18 Flor Clark PharmD [address] [place] [address] Pharmacist Internal Medicine 08/18/23 documented as of this encounter
--- OUTSIDE RECORDS SUMMARY | 2025-02-12 19:13 | XMS_ITS | Encounter Summary ---
Author Organization [facility], Address [address] [place] [address] Phone Care Team Providers Care Dog Licenser Name Role Phone Macie Link DO Primary Care Provider Unava ilable Encounter Details Date Type Department Care Team (Late st Contact Info) Description 07/19/2022 Documentation Only [facility], [address] [place] [address] Joya Horner[place], [place] [address] [place] [address] Social History Tobacco Use Types [...] on filedocumented in this encounter Care Teams Dog Licenser Relationship Specialty Start Date End Date Macie Link DO PCP - General 04/03/19 documented as of this encounter
--- OUTSIDE RECORDS SUMMARY | 2025-02-12 19:13 | XMS_ITS ---
Author Organization [facility] Address [address] [place] [address] Care Team Providers Care Big Data Admin Name Role Phone Ref, Has No Pcp Or Primary Care Provider Unavail able Active Problems Problem Noted Date Diagnosed Date [...] TotalDLP 1,501 mGy 1,501 mGy 0 mGy [id number] 21.5 mSv 21.5 mSv 0 mSv CTDIvol Max 18.2 mGy 18.2 mGy 0 mGy CTDIvol Min 14.8 mGy 14.8 mGy 0 mGy
--- OUTSIDE RECORDS SUMMARY | 2025-02-12 19:13 | XMS_ITS | Encounter Summary ---
Author Organization [facility] Address [address] [place] [address] Care Team Providers Care Laborer Poultry Hatchery Name Role Phone Ref, Has No Pcp Or Primary Care Provider Unavail able Encounter Details Date Type Department Care Team (Late st Contact Info) Description 09/27/2024 Orders Only [facility] Interventional Radiology [address] [place] [address] Cami aGrland PA [address] [place] [address] Social History Tobacco Use Types Packs/Day Years [...] Info) Description 03/19/2025 9:00 AM EDT Follow-Up [facility] Renal Transplant [address] [place] [address] Louie Pablo MD [address] [place] [address] 03/19/2025 9:30 AM EDT Social Work [facility] Renal Transplant [address] [place] [address] Imani Livingston LICSW [address] [place] [address] 05/09/2025 11:00 AM EST Follow-Up [facility] 5th Floor [address] [place] [address] Pierce Au MD [address] [place] [address] documented as of this encounter Visit Diagnoses Not on filedocumented in this encounter Care Teams Laborer Poultry Hatchery Relationship Specialty Start Date End Date Ref, Has No Pcp Or DO NOT EDIT THIS RECORD VIA PROVIDER ON THE FLY PCP - General Float Phlebotomist 03/15/24 documented as of this encounter
--- OUTSIDE RECORDS SUMMARY | 2025-02-12 19:13 | XMS_ITS | Encounter Summary ---
Author Organization [employer] Address [address] [facility] 7t [place] [address] Care Team Providers Care Cargoman Name Role Phone Macie Link DO Primary Care Provider [phone] Flor Clark PharmD Unavailable [phone] Reason for Visit * Reason Comments Med Refill Encounter Details Date Type Department Care Team (Late st Contact Info) Description 05/04/2024 Refill [facility] MEDICINE [address] [place] [address] Macie Link DO [address] [place] [address] Hypothyroidism, unspecified type; Chronic GERD Social History [...] Description 02/21/2025 10:00 AM EDT Medication Management [facility] MEDICINE [address] [place] [address] Flor Clark, PharmD [address] [place] [address] 05/15/2025 9:00 AM EST Clinical Support [facility] MEDICINE [address] [place] [address] April Murrell RN 07/01/2025 1:00 PM EST Office Visit [facility] ADULT DENTAL [address] [place] [address] Eleni Shin [address] [place] [address] documented as of this encounter Goals Goal [...] as directed Result Component No Flor Clark PharmMariajose Note: Use CGM, ensuring sensor is [...] documented as of this encounter Care Teams Cargoman Relationship Specialty Start Date End Date Macie Link DO [address] [place], [place] [phone] PCP - General Family Medicine 05/30/18 Flor Clark PharmD [address] [place] [address] Pharmacist Internal Medicine 08/18/23 documented as of this encounter
--- OUTSIDE RECORDS SUMMARY | 2025-02-12 19:13 | XMS_ITS | Encounter Summary ---
Author Organization [employer] Address 75 [facility] 7t [place] [address] Care Team Providers Care Data Analysis Intern Name Role Phone Macie Link DO Primary Care Provider [phone] Flor Clark PharmD Unavailable [phone] Reason for Visit * Reason Comments Med Refill Encounter Details Date Type Department Care Team (Late st Contact Info) Description 12/12/2023 Refill [facility] MEDICINE [address] [place] [address] Macie Link DO [address] [place] [address] Anxiety; Chronic neck pain Social History Tobacco [...] Description 02/21/2025 10:00 AM EDT Medication Management [facility] MEDICINE [address] [place] [address] Flor Clark, PharmD [address] [place] [address] 05/15/2025 9:00 AM EST Clinical Support [facility] MEDICINE [address] [place] [address] April Murrell RN 07/01/2025 1:00 PM EST Office Visit [facility] ADULT DENTAL [address] [place] [address] Eleni Shin [address] [place] [address] documented as of this encounter Goals Goal [...] documented as of this encounter Care Teams Data Analysis Intern Relationship Specialty Start Date End Date Macie Link DO [address] [place] [address] PCP - General Family Medicine 05/30/18 Flor Clark PharmD [address] [place] [address] Pharmacist Internal Medicine 08/18/23 documented as of this encounter
--- OUTSIDE RECORDS SUMMARY | 2025-02-12 19:13 | XMS_ITS | Encounter Summary ---
Author Organization [employer] Address [address] [facility] 7t [place] [address] Care Team Providers Care Roundsman Name Role Phone Macie Likn DO Primary Care Provider [phone] Flor Clark PharmD Unavailable [phone] Reason for Visit * Reason Onset Date Comments Durable Medical Equipment 05/10/2022 Encounter Details Date Type Department Care Team (Late st Contact Info) Description 05/10/2022 Telephone [facility] MEDICINE [address] [place] [address] Macie Link DO [address] [place] [address] Durable Medical Equipment Social History Tobacco Use [...] 1:45 PM EST [facility]c [facility] on Glucerna . States pt has tried reaching L&C and no response . Also caller is requesting a adjustable position bed. Best contact # [phone] documented in this encounter Plan of Treatment Upcoming Encounters Date Type Department Care Team (Late st Contact Info) Description 02/21/2025 10:00 AM EDT Medication Management [facility] MEDICINE [address] [place] [address] Flor Clark PharmD [address] [place] [address] 05/15/2025 9:00 AM EST Clinical Support [facility] MEDICINE [address] [place] [address] April Murrell, RN 07/01/2025 1:00 PM EST Office Visit [facility] ADULT DENTAL [address] [place] [address] Fitz Shinaris [address] [place] [address] documented as of this encounter Visit Diagnoses Not on filedocumented in this encounter Care Teams Roundsman Relationship Specialty Start Date End Date Macie Link DO [address] [place] [address] PCP - General Family Medicine 05/30/18 Flor Clark PharmD [address] [place] [address] Pharmacist Internal Medicine 08/18/23 documented as of this encounter
--- OUTSIDE RECORDS SUMMARY | 2025-02-12 19:13 | XMS_ITS | Encounter Summary ---
Author Organization [facility], Address [address] [place] [address] Phone Care Team Providers Care Job Developer For Deaf Adults Name Role Phone Macie Link DO Primary Care Provider Unava ilable Reason for Visit * Reason Comments Med Refill Encounter Details Date Type Department Care Team (Late st Contact Info) Description 07/15/2022 Refill [facility], [address] [place] [address] Romario Ford MD [address] [facility] [place] [phone] Social History Tobacco Use Types Packs/Day Years [...] on filedocumented in this encounter Care Teams Job Developer For Deaf Adults Relationship Specialty Start Date End Date Macie Link DO PCP - General 04/03/19 documented as of this encounter
--- OUTSIDE RECORDS SUMMARY | 2025-02-12 19:13 | XMS_ITS | Encounter Summary ---
Author Organization [employer] Address [address] [facility] 7t [place] [address] Care Team Providers Care Career Based Intervention Coordinator Name Role Phone TiffanyMacie hamilton Primary Care Provider Flor Clark PharmD Unavailable Encounter Details Date Type Department Care Team (Late st Contact Info) Description 07/30/2022 Orders Only [facility] [address] [place] [address] Cassie Jeronimo MD [address] [place] [address] Chronic neck pain (Primary Dx) Social History [...] 10:00 AM EDT Medication Management [facility] [address] [place] [address] Flor Clark PharmD [address] [place] [address] 05/15/2025 9:00 AM EST Clinical Support [facility] [address] [place] [address] April Murrell, PADILLA 07/01/2025 1:00 PM EST Office Visit [facility] [address] [place] [address] Eleni Shin [address] [place] [address] documented as of this encounter Visit Diagnoses Diagnosis Chronic neck pain- Primary Cervicalgia documented in this encounter Additional Health Concerns Assessment Noted Time PHQ-9 Depression Total Score: 2 07/06/19 23 9:23 AM EST documented as of this encounter Care Teams Career Based Intervention Coordinator Relationship Specialty Start Date End Date Macie Link DO [address] [place] [address] PCP - General Family Medicine 05/30/18 Flor Clark PharmD [address] [place] [address] Pharmacist Internal Medicine 08/18/23 documented as of this encounter
--- OUTSIDE RECORDS SUMMARY | 2025-02-12 19:13 | XMS_ITS | Encounter Summary ---
Author Organization [employer] Address [address] [facility] 7t [place] [address] Care Team Providers Care Grooving Machine Operator Name Role Phone Macie Link DO Primary Care Provider Flor Clark PharmD Unavailable [phone] Encounter Details Date Type Department Care Team ([facility] st Contact Info) Description 10/10/2024 Telephone [facility] [address] [place], [place] [phone] Macie Link DO [address] [place] [address] Social History Tobacco Use Types Packs/Day Years [...] encounter Miscellaneous Notes * Telephone Encounter - Jeanie Mendoza - 10/10/2024 11:31 AM EDT Tc from documented in this encounter Plan of Treatment Upcoming Encounters Date Type Department Care Team (Late st Contact Info) Description 02/21/2025 10:00 AM EDT Medication Management [facility] [address] [place] [phone] Flor Clark, PharmD [address] [place] [address] 05/15/2025 9:00 AM EST Clinical Support [facility] [address] [place] [address] April Murrell RN 07/01/2025 1:00 PM EST Office Visit [facility] ADULT DENTAL [address] [place] [address] Eleni Shin [address] [place] [address] documented as of this encounter Goals Goal Patient Goal Type Associated Problems Recent Progress Patient-Stated? Author Hemoglobin A1c < 7 Result Component 6.3( 10:51 AM EDT) No Puia, Flor, PharmD Note: [...] documented as of this encounter Care Teams Grooving Machine Operator Relationship Specialty Start Date End Date Macie Link DO [address] [place] [address] PCP - General Family Medicine 05/30/18 Flor Clark PharmD [address] [place] [address] Pharmacist Internal Medicine 08/18/23 documented as of this encounter
--- OUTSIDE RECORDS SUMMARY | 2025-02-12 19:13 | XMS_ITS | Encounter Summary ---
Author Organization [facility] Address [address] [place] [address] Care Team Providers Care Jig And Fixture Builder Name Role Phone Ref, Has No Pcp Or Primary Care Provider Unavail able Encounter Details Date Type Department Care Team (Late st Contact Info) Description 06/28/[address] [facility] Nuclear Medicine [address] [place] [address] Kandice Pacheco MD [address] [place] [address] Social History Tobacco Use Types Packs/Day Years [...] Info) Description 03/19/2025 9:00 AM EDT Follow-Up [facility] Renal Transplant [address] [place] [address] Louie Pablo MD [address] [place] [address] 03/19/2025 9:30 AM EDT Social Work [facility] Renal Transplant [address] [place] [address] Imani Livingston LICSW [address] [place] [address] 05/09/2025 11:00 AM EST Follow-Up [facility] 5th Floor [address] [place] [address] Pierce Au MD [address] [place] [address] documented as of this encounter Visit Diagnoses Not on filedocumented in this encounter Care Teams Jig And Fixture Builder Relationship Specialty Start Date End Date Ref, Has No Pcp Or DO NOT EDIT THIS RECORD VIA PROVIDER ON THE FLY PCP - General Burr Bench Operator 03/15/24 documented as of this encounter
--- OUTSIDE RECORDS SUMMARY | 2025-02-12 19:13 | XMS_ITS | Encounter Summary ---
Author Organization [facility] Address [address] [place] [address] Care Team Providers Care Labor Relations Officer Name Role Phone Ref, Has No Pcp Or Primary Care Provider Unavail able Encounter Details Date Type Department Care Team (Late st Contact Info) Description 06/27/2024 Orders Only [facility] Interventional Radiology [address] [place] [address] Amanda Sweet MD [address] [place] [phone] Social History Tobacco Use Types Packs/Day Years [...] Info) Description 03/19/2025 9:00 AM EDT Follow-Up [facility] Renal Transplant [address] [place] [address] Louie Pablo MD [address] [place] [address] 03/19/2025 9:30 AM EDT Social Work [facility] Renal Transplant [address] [place] [address] Imani Livingston LICSW [address] [place] [address] 05/09/2025 11:00 AM EST Follow-Up [facility] 5th Floor [address] [place] [address] Pierce Au MD [address] [place] [address] documented as of this encounter Visit Diagnoses Not on filedocumented in this encounter Care Teams Labor Relations Officer Relationship Specialty Start Date End Date Ref, Has No Pcp Or DO NOT EDIT THIS RECORD VIA PROVIDER ON THE FLY PCP - General Cement Sack Breaker 03/15/24 documented as of this encounter
--- OUTSIDE RECORDS SUMMARY | 2025-02-12 19:13 | XMS_ITS | Encounter Summary ---
Author Organization [employer] Address [address] [facility] 7t [place] [address] Care Team Providers Care Compliance Program Manager Name Role Phone Macie Link DO Primary Care Provider [phone] Flor Clark PharmD Unavailable Reason for Visit * Reason Comments Med Refill Encounter Details Date Type Department Care Team ([facility] st Contact Info) Description 05/24/2024 Refill [facility] [address] [place] [address] Macie Link DO [address] [place] [address] Anxiety Social History Tobacco Use Types Packs/Day [...] 02/21/2025 10:00 AM EDT Medication Management [facility] [address] [place] [address] Flor Clark, PharmD [address] [place] [address] 05/15/2025 9:00 AM EST Clinical Support [facility] [address] [place] [address] April Murrell RN 07/01/2025 1:00 PM EST Office Visit [facility] ADULT DENTAL [address] [place] [address] Eleni Shin [address] [place] [address] documented as of this encounter Goals Goal Patient Goal Type Associated Problems Recent Progress Patient-Stated? Author Hemoglobin A1c < 7 Result Component 6.3( 10:51 AM EDT) No Flor Clark PharmMariajose Note: A1c value is falsely low [...] documented as of this encounter Care Teams Compliance Program Manager Relationship Specialty Start Date End Date Macie Link DO [address] [place] [address] PCP - General Family Medicine 05/30/18 Flor Clark PharmD [address] [place] [address] Pharmacist Internal Medicine 08/18/23 documented as of this encounter
--- OUTSIDE RECORDS SUMMARY | 2025-02-12 19:13 | XMS_ITS | Encounter Summary ---
Author Organization [employer] Address [address] [facility] 7t [place] [address] Care Team Providers Care Bookkeeping Manager Name Role Phone Macie Link DO Primary Care Provider [phone] Flor Clark PharmD Unavailable [phone] Reason for Visit * Reason Comments Med Refill Encounter Details Date Type Department Care Team (Late st Contact Info) Description 03/30/2024 Refill [facility] [address] [place] [address] Macie Link DO [address] [place] [address] Seasonal allergic rhinitis, unspecified trigger Social History [...] 10:00 AM EDT Medication Management [facility] [address] [place] [address] Flor Clark PharmD [address] [place] [address] 05/15/2025 9:00 AM EST Clinical Support [facility] [address] [place] [phone] April Murrell RN 07/01/2025 1:00 PM EST Office Visit [facility] AD[facility] [address] [place] [address] Eleni Shin [address] [place] [address] documented as of this encounter Goals Goal [...] documented as of this encounter Care Teams Bookkeeping Manager Relationship Specialty Start Date End Date Macie Link DO [address] [place] [address] PCP - General Family Medicine 05/30/18 Flor Clark PharmD [address] [place] [address] Pharmacist Internal Medicine 08/18/23 documented as of this encounter
--- OUTSIDE RECORDS SUMMARY | 2025-02-12 19:13 | XMS_ITS | Encounter Summary ---
Author Organization [employer] Address [address] [facility] 7t [place] [address] Care Team Providers Care Lead Retail Sales Associate Name Role Phone ArcadioMacie smith DO Primary Care Provider [phone] Flor Clark PharmD Unavailable [phone] Reason for Visit * Reason Comments Med Refill Encounter Details Date Type Department Care Team (Late st Contact Info) Description 05/24/2024 Refill [facility] [address] [place] [address] Sobia Crooks MD [address] [place] [address] Chronic neck pain Social History Tobacco Use [...] Description 02/21/2025 10:00 AM EDT Medication Management [facility] [address] [place] [address] Flor Clark, PharmD [address] [place] [address] 05/15/2025 9:00 AM EST Clinical Support [facility] [address] [place] [address] April Murrell RN 07/01/2025 1:00 PM EST Office Visit [facility] ADULT DENTAL [address] [place] [address] Eleni Shin [address] [place] [address] documented as of this encounter Goals Goal [...] documented as of this encounter Care Teams Lead Retail Sales Associate Relationship Specialty Start Date End Date Macie Link DO [address] [place] [address] PCP - General Family Medicine 05/30/18 Flor Clark PharmD [address] [place] [address] Pharmacist Internal Medicine 08/18/23 documented as of this encounter
--- OUTSIDE RECORDS SUMMARY | 2025-02-12 19:13 | XMS_ITS | Encounter Summary ---
Author Organization [facility] Address [address] [place] [address] Care Team Providers Care Manager Behavior Name Role Phone Ref, Has No Pcp Or Primary Care Provider Unavail able Encounter Details Date Type Department Care Team (Late st Contact Info) Description 09/25/2024 Orders Only [facility] Interventional Radiology [address] [place] [address] Cami Garland PA [address] [place] [address] Social History Tobacco Use Types Packs/Day Years [...] Info) Description 03/19/2025 9:00 AM EDT Follow-Up [facility] [address] [place] [address] Louie Pablo MD [address] [place] [address] 03/19/2025 9:30 AM EDT Social Work [facility] [address] [place] [address] Imani Livingston LICSW [address] [place] [address] 05/09/2025 11:00 AM EST Follow-Up [facility] 5th Floor [address] [place] [address] Pierce Au MD [address] [place] [address] documented as of this encounter Visit Diagnoses Not on filedocumented in this encounter Care Teams Manager Behavior Relationship Specialty Start Date End Date Ref, Has No Pcp Or DO NOT EDIT THIS RECORD VIA PROVIDER ON THE FLY PCP - General Auctioneer Art 03/15/24 documented as of this encounter
--- OUTSIDE RECORDS SUMMARY | 2025-02-12 19:13 | XMS_ITS | Clinical Summary ---
Author Organization [employer] Address [address] [facility] [address] [place] [address] Care Team Providers Care Electric Distribution Checker Name Role Phone TiffanyMacie hamilton Primary Care Provider [phone] Flor Clark PharmD Unavailable Allergies No known active allergies Medications * [...] Beta (MIRCERA IJ) 75 mcg. 024 Active Continuous Glucose Director Of Global Talent (FreeStyle Gurmeet 2 [place]) deviceIndicatio ns:Type 2 diabetes mellitus with chronic kidney disease on chronic dialysis, with long-term current use of insulin ([facility]) Use for continuous glucose monitoring per package directions 1 each 024 Active ipratropium (Atrovent) 0.03 % nasal spray USE 2 SPRAYS IN EACH NOSTRIL THREE TIMES DAILY DIRECTED 30 mL 11 024 Active Continuous Glucose Sensor (FreeStyle Gurmeet 2 Sensor) miscIndications :Type 2 diabetes mellitus with chronic kidney disease on chronic dialysis, with long-term current use of insulin (CMS/HCC) USE DIRECTED TO TEST BLOOD SUGAR EVERY [...] complication, with long-term current use of insulin ([facility]) TEST BLOOD SUGAR 3 TIMES PER DAY 100 each 025 Active Alcohol Swabs (Easy Touch Alcohol Prep Medium) 70 % padsIndications :Type 2 diabetes mellitus with other specified complication, with long-term current use of insulin ([facility]/HCC) Use up to 4 daily as directed 100 each 025 Active glucose blood (FreeStyle Precision Andrés Test) test stripIndication s:Type 2 diabetes mellitus with other specified complication, with long-term current use of insulin ([facility]/HCC) Use to test blood sugar up to 3 times daily, as directed 100 each 11 025 Active Viagra 100 MG tabletIndicatio ns:Erectile dysfunction, unspecified erectile dysfunction type TAKE 1 TABLET 1 HOUR BEFORE SEXUAL RELATIONS ONCE DAILY NEEDED. 10 tablet 025 Active Semaglutide, 2 MG/DOSE, (Ozempic, 2 MG/DOSE,) 8 MG/3ML solution pen-injectorInd ications:Type 2 diabetes mellitus with chronic kidney disease on chronic dialysis, with long-term current use of insulin (CMS/HCC) Inject 0.75 mL (2 mg) under the skin 1 (one) time per week. 3 mL Active levothyroxine (Synthroid, Levoxyl) 137 MCG tablet Take 1 tablet by mouth every morning, 30 minutes before any other medications or food. 90 tablet 3 Active amLODIPine (Norvasc) 10 MG tabletIndicatio ns:Primary hypertension TAKE 1 TABLET BY MOUTH EVERY MORNING 90 tablet 1 Active insulin glargine (Lantus SoloStar) 100 UNIT/ML penIndications: Type 2 diabetes mellitus with chronic kidney disease on chronic dialysis, with long-term current use of insulin ([facility]) INJECT 20 UNITS SUBCUTANEOUSLY ONCE DAILY 15 mL Active gabapentin (Neurontin) 100 MG capsule Take 100 mg by mouth 2 times daily. Active BD Pen Needle Katerina Ultrafine 32G X 4 MM miscIndications :Type 2 diabetes mellitus with other specified complication, with long-term current use of insulin ([facility]) USE DIRECTED FOUR TIMES DAILY 100 each 3 025 Active Diclofenac Sodium 1 % gel APPLY 2 GRAMS TOPICALLY TO AFFECTED AREA(S) TWICE DAILY NEEDED FOR PAIN 100 g 2 025 Active cetirizine (ZyrTEC) 10 MG tablet TAKE 1/2 TABLET BY MOUTH ONCE DAILY 15 tablet 025 Active glucose blood (OneTouch Ultra) test strip Use to test blood sugar 3 times daily 100 each 025 2025 Active albuterol (Ventolin HFA) 108 (90 Base) MCG/ACT inhalerIndicati ons:Asthma, unspecified asthma severity, unspecified whether complicated, unspecified whether persistent INHALE 2 PUFFS BY MOUTH EVERY 4 TO 6 HOURS NEEDED FOR WHEEZING OR SHORTNESS OF BREATH 18 g 025 Active sucralfate (Carafate) 1 g tablet TAKE 1 TABLET BY MOUTH THREE TIMES DAILY BEFORE MEALS AND AT BEDTIME FOR 14 DAYS Active omeprazole (PriLOSEC) [address] capsule TAKE 1 CAPSULE BY MOUTH TWICE DAILY IN THE MORNING AND IN THE EVENING WITH FOOD 025 Active lidocaine (Lidoderm) 5 % patchIndication s:Chronic neck pain .APPLY 1 PATCH TOPICALLY TO SKIN, LEAVE ON FOR 12 HOURS AND OFF FOR 12 HOURS DIRECTED 30 patch 5 Active clonazePAM (KlonoPIN) 1 MG tabletIndicatio ns:Anxiety TAKE 1 TABLET BY MOUTH TWICE DAILY IN THE MORNING AND AT BEDTIME NEEDED FOR ANXIETY 56 tablet 025 2024 Active zolpidem (Ambien) 10 MG tabletIndicatio ns:Anxiety Take 1 tablet (10 mg) by mouth if needed at bedtime for sleep for up to 28 days. Do not start before February 11, 2025. 28 tablet 2024 Active clotrimazole (Lotrimin) 1 % cream APPLY TOPICALLY TO THE AFFECTED AREA(S) TWICE DAILY IN THE MORNING AND IN THE EVENING 60 g Active oxyCODONE-aceta minophen (Percocet) 10-325 MG tabletIndicatio ns:Chronic neck pain Take 1 tablet by mouth every 4 (four) hours if needed for severe pain for up to 28 days. Do not start before February 12, 2025. 168 tablet 2024 Active omeprazole (PriLOSEC) [address] capsuleIndicati ons:Chronic GERD TAKE 1 CAPSULE BY MOUTH TWICE DAILY IN THE MORNING AND IN THE EVENING WITH FOOD 180 capsule 1 025 2024 Discontinued(I neffective) clotrimazole (Lotrimin) 1 % cream APPLY TOPICALLY TO AFFECTED AREA(S) TWICE DAILY IN THE MORNING AND IN THE EVENING 60 g 025 2024 Discontinued lidocaine (Lidoderm) 5 % patchIndication s:Chronic neck pain APPLY 1 PATCH TOPICALLY TO SKIN, LEAVE ON FOR 12 HOURS AND OFF FOR 12 HOURS DIRECTED 30 patch 5 025 2024 Discontinued(R eorder (will not trigger notification to Pharmacy)) zolpidem (Ambien) 10 MG tabletIndicatio ns:Anxiety TAKE 1 TABLET BY MOUTH AT BEDTIME NEEDED FOR SLEEP 28 tablet 025 2024 Discontinued clonazePAM (KlonoPIN) 1 MG tabletIndicatio ns:Anxiety TAKE 1 TABLET BY MOUTH TWICE DAILY IN THE MORNING AND AT BEDTIME NEEDED ANXIETY 56 tablet 025 2024 Discontinued oxyCODONE-aceta minophen (Percocet) 10-325 MG tabletIndicatio ns:Chronic neck pain Take 1 tablet by mouth every 4 (four) hours if needed for severe pain for up to 28 days. Do not start before January 15, 2025. 168 tablet 025 2024 Discontinued(R eorder (will not trigger notification to Pharmacy)) Active Problems Problem Noted Date Diagnosed Date Advanced periodontitis 11/14/2024 Generalized gingival recession 11/14/2024 Dental calculus 11/14/2024 Dental plaque 11/14/2024 Missing teeth, acquired 11/14/2024 Gingival bleeding 11/14/2024 Acute gingival inflammation 11/14/2024 Long-term current use of opiate analgesic 2024 Long-term current use of benzodiazepine 11/14/19 Neuroendocrine carcinoma 10/23/2024 Hemiplegia and hemiparesis f ollowing cerebral infarction affecting left non-dominant side 05/08/2024 Hypertensive heart and chron ic kidney disease with heart failure and with stage 5 chronic kidney disease, or end stage renal disease 05/08/2024 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 Black cis-male with previous documented hx of Depression. He has Hx of services including OP Psychotherapy and psychopharmacology, who [...] in intervention, Patient to reach out to [facility] team as needed, and Comply with medication. [...] Headache, unspecified 08/30/20222022 Other pericardial effusion (noninflammatory) 3 12/20/2023 Personal history of transien t ischemic attack (TIA), and cerebral infarction without residual deficits 07/06/2022 05/05/2023 Hypoglycemia, unspecified 06/23/2022 Malignant tumor of stomach 06/23/2022 1 07/06/2022 End stage renal disease 12/17/2021 09/0 11/2022 Major depression, recurrent, chronic 06/02/2015 05/31/2023 Encounters Date Type Department Care Team Description 02/12/2025 9:00 AM EDT Clinical Support [address] [address] April Murrell RN Long-term current use of opiate analgesic (Primary Dx); Long-term current use of benzodiazepine 02/12/2025 Travel 02/11/2025 Telephone [facility] [address] [place] [address] Macie Link, Call Back Request 02/06/2025 Telephone [facility] [address] [place] [address] Macie Link DO telephone call 02/05/2025 Refill [facility] [address] [place] [address] Macie Link, Anxiety; Chronic neck pain 01/30/2025 Telephone [facility] [address] [place] [address] Macie Link DO Appointment Request 01/23/2025 Refill [facility] [address] [place] [address] Macie Link DO Chronic GERD 01/18/2025 Refill [facility] [address] [place] [address] Macie Link DO Chronic neck pain 01/11/2025 Telephone [facility] [address] [place] [address] Macie Link DO Med Refill 01/10/2025 Refill [facility] [address] [place] [address] Macie Link DO Chronic neck pain 01/10/2025 Refill [facility] [address] [place] [address] Macie Link DO Anxiety 01/10/2025 Refill [facility] [address] [place] [address] Sobia Crooks MD Anxiety 01/10/2025 Refill [facility] [address] [place] [address] Macie Link DO Asthma, unspecified asthma severity, unspecified whether complicated, unspecified whether persistent 01/08/2025 9:00 AM EDT Office Visit [facility] [address] [place] [address] Aleida, Eleni Advanced periodontitis (Primary Dx); Dental calculus; Dental plaque 01/02/2025 2:00 PM EDT Office Visit [facility] [address] [place] [address] Aleida, Eleni Advanced periodontitis (Primary Dx); Dental calculus 12/28/2024 1:30 PM EDT Office Visit [facility] [address] [facility] [place] [address] Tip, Dulce, OD Diabetes type 2, no ocular involvement (CMS/HCC) (Primary Dx); [place] of macula, left; Epiretinal membrane (ERM) of both eyes; Pseudophakia of both eyes; Presbyopia 12/28/2024 Travel 12/18/2024 9:30 AM EDT Office Visit [facility] [address] [place] [address] Justin Anne, DMD 12/18/2024 Telephone [facility] [address] [place] [address] Macie Link, DO Durable Medical Equipment 12/17/2024 Telephone [facility] [address] [place] [address] Macie Link, DO Med Refill 12/17/2024 Refill [facility] [address] [place] [address] Macie Link, Chronic neck pain 12/17/2024 Refill [facility] [address] [place] [address] April Murrell RN Chronic neck pain 12/14/2024 Refill [facility] [address] [place] [address] Macie Link, Chronic neck pain 12/13/2024 Refill [facility] [address] [place] [address] Macie Link, Chronic neck pain 12/12/2024 Refill [facility] [address] [place] [address] Macie Link, Anxiety 12/12/2024 Telephone [facility] [address] [place] [address] Macie Link DO telephone call 12/11/2024 Refill [facility] [address] [place] [address] Macie Link DO Anxiety; Chronic neck pain; Type 2 diabetes mellitus with other specified complication, with long-term current use of insulin ([facility]) 12/10/2024 Refill [facility] [address] [place] [address] Macie Link DO 12/07/2024 Telephone [facility] [address] [place] [address] Justin Anne, DMD cx waiting period 12/02/2024 Refill [facility] [address] [place] [address] Macie Link DO 12/02/2024 Refill [facility] [address] [place] [address] [facility] Type 2 diabetes mellitus with other specified complication, with long-term current use of insulin ([facility]) 11/26/2024 Results Follow-Up [address] [address] Flor Clark, PharmD Fructosamine 11/20/2024 Travel 11/19/2024 Orders Only [address] [address] Macie Link DO 11/16/[address] [address] April Murrell, virginia line attendant neck pain 11/14/2024 2:00 PM EDT Office Visit [facility] [address] [place] [address] Eleni Shin Advanced periodontitis (Primary Dx); Generalized gingival recession; Dental calculus; Dental plaque; Missing teeth, acquired; Gingival bleeding; Acute gingival inflammation 11/14/2024 Telephone [facility] [address] [place] [address] Macie Link DO [employer] 11/13/2024 11:30 AM EDT Clinical Support [facility] [address] [place] [address] April Murrell, RN Long-term current use of benzodiazepine (Primary Dx); Long-term current use of opiate analgesic 11/13/[address] [facility] [address] [place] [address] April Murrell, RN Per insurance was only provided 7 day Percocet 11/13/[address] 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 Renewal today 11/13/2024 Travel from Last 3 Months Immunizations Immunization Administration Dates Next Due COVID-19 Non-US Vaccine, [...] Sign Reading Time Taken Comments Blood Pressure 126/70 01/08/2025 8:54 AM EDT Pulse 70 09/26/2024 2:09 PM EDT Temperature 37.1 C (98.7 F) 09/11/2024 10:07 AM EDT Respiratory Rate 20 09/11/2024 10:07 AM EDT [...] Description 02/21/2025 10:00 AM EDT Medication Management [facility] [address] [place] [phone] Flor Clark, DerikD [address] [place] [address] 05/15/2025 9:00 AM EST Clinical Support [facility] [address] [place] [address] April Murrell, RN 07/01/2025 1:00 PM EST Office Visit [facility] [address] [place] [phone] Eleni Shin [address] [place] [address] Health Maintenance Due Date Last Done Comments CT Colonography 1959 FIT DNA/Cologuard 1959 FIT 1959 FOBT 1959 Sigmoidoscopy 1959 Diabetes: Foot Exam 09/21/1969 Hepatitis A Vaccines (1 of 2 - Risk 2-dose series) 09/21/1978 Dental Oral Exam 09/18/2024 03/19/2024, , 08/20/2013, Additional history exists COVID-19 Vaccine ( season) 2025 03/08/2023, 03/12/2022, 03/12/2022, Additional history exists Influenza Vaccine (#1) 2025 , 02/03/2023, 02/20/2022, Additional history exists Colonoscopy 03/11/2025 02/23/2022, 02/25/2016 Colorectal Cancer Screening 03/11/2025 Depression Monitoring 03/13/2025 09/11/2024, 025 Diabetes: Hemoglobin A1C 03/16/2025 025, 09/11/2024, 09/04/2024, Additional history exists Dental Prophylaxis 05/17/2025 11/14/2024, 02/09/2013 Alcohol/Substance Use Screening 09/11/2025 09/11/2024 SDOH Screening 09/11/2025 09/11/2024 Lipid Panel 09/14/2025 09/14/2024, 06/0 10/2023, 12/09/2020 Eye Exam 12/28/2025 12/28/2024, 08/0 05/2024, 12/28/2024, Additional history exists Dental X-Ray: Bitewings 01/09/2026 01/09/20, 01/02/2025, 03/19/2024, Additional history exists Tobacco Screening 01/14/2026 01/14/2025 Dental X-Ray: Full Mouth 03/20/2027 03/19/2024, 11/27 [...] Completed 12/26/2023, 06/22/2023, 05/28/2022, Additional history exists HIB Vaccines Aged Out No longer eligi ble based on patient's age to complete this topic HPV Vaccines Aged Out No longer eligi ble based on patient's age to complete this topic IPV Vaccines Aged Out No longer eligi ble based on patient's age to complete this topic Meningococcal B Vaccine Aged Out No l onger eligible based on patient's age to complete [...] Procedure Name Priority Date/Time Associated Diagnosis Comments BITEWINGS - 2 RADIOGRAPHIC IMAGES Routine 01/08/2025 9:00 AM EDT Advanced periodontitis Dental calculus Dental plaque 24,25,26 INTRAORAL - PERIAPICAL EACH ADDITIONAL RADIOGRAPHIC IMAGE Routine 01/08/2025 9:00 AM EDT Advanced periodontitis Dental calculus Dental plaque 6,7,8 INTRAORAL - PERIAPICAL FIRST RADIOGRAPHIC IMAGE Routine 01/08/2025 9:00 AM EDT Advanced periodontitis Dental calculus Dental plaque ORAL HYGIENE INSTRUCTIONS Routine 01/08/2025 9:00 AM EDT Advanced periodontitis Dental calculus Dental plaque CASE PRESENTATION, DETAILED AND EXTENSIVE TREATMENT PLANNING Routine 01/08/2025 9:00 AM EDT Advanced periodontitis Dental calculus Dental plaque LR PERIODONTAL SCALING AND ROOT PLANING - 4 OR MORE TEETH PER QUADRANT Routine 01/08/2025 9:00 AM EDT Advanced periodontitis Dental calculus Dental plaque UR PERIODONTAL SCALING AND ROOT PLANING - 4 OR MORE TEETH PER QUADRANT Routine 01/08/2025 9:00 AM EDT Advanced periodontitis Dental calculus Dental plaque 24,23,22 INTRAORAL - PERIAPICAL EACH ADDITIONAL RADIOGRAPHIC IMAGE Routine 01/02/2025 2:00 PM EDT 10,11 INTRAORAL - PERIAPICAL FIRST RADIOGRAPHIC IMAGE Routine 01/02/2025 2:00 PM EDT Advanced periodontitis Dental calculus ORAL HYGIENE INSTRUCTIONS Routine 01/02/2025 2:00 PM EDT Advanced periodontitis Dental calculus CASE PRESENTATION, DETAILED AND EXTENSIVE TREATMENT PLANNING Routine 01/02/2025 2:00 PM EDT Advanced periodontitis Dental calculus LL PERIODONTAL SCALING AND ROOT PLANING - 4 OR MORE TEETH PER QUADRANT Routine 01/02/2025 2:00 PM EDT Advanced periodontitis Dental calculus UL PERIODONTAL SCALING AND ROOT PLANING - 4 OR MORE TEETH PER QUADRANT Routine 01/02/2025 2:00 PM EDT Advanced periodontitis Dental calculus BITEWINGS - 2 RADIOGRAPHIC IMAGES Routine 01/02/2025 2:00 PM EDT Advanced periodontitis Dental calculus OCT, RETINA - OU - BOTH EYES Routine 12/28/2024 1:30 PM EDT Epiretinal membrane (ERM) of both eyes CASE PRESENTATION, DETAILED AND EXTENSIVE TREATMENT PLANNING Routine 12/18/2024 9:30 AM EDT 20 CROWN - PORCELAIN/CERAMIC Routine 12/18/2024 9:30 AM EDT FRUCTOSAMINE Routine 11/19/2024 11:32 AM EDT CASE PRESENTATION, DETAILED AND EXTENSIVE TREATMENT PLANNING Routine 11/14/2024 2:00 PM EDT Advanced periodontitis Generalized gingival recession Dental calculus Dental plaque Missing teeth, acquired Gingival bleeding Acute gingival inflammation ORAL HYGIENE INSTRUCTIONS Routine 11/14/2024 2:00 PM EDT Advanced periodontitis Generalized gingival recession Dental calculus Dental plaque Missing teeth, acquired Gingival bleeding Acute gingival inflammation TOPICAL APPLICATION OF FLUORIDE VARNISH Routine 11/14/2024 2:00 PM EDT Generalized gingival recession PROPHYLAXIS - ADULT Routine 11/14/2024 2 :00 PM EDT Advanced periodontitis Dental calculus Dental plaque Gingival bleeding Acute gingival inflammation POCT WOODY-14 URINE DRUG SCREEN Routine 11/13/2024 10:19 AM EDT Long-term current use of benzodiazepine DRUG MONITORING, BENZODIAZEPINES, QUANTITATIVE, URINE Routine 11/13/2024 9:30 AM EDT Long-term current use of benzodiazepine HEMOGLOBIN A1C Routine 09/14/2024 10:51 AM EDT Type 2 diabetes mellitus with chronic kidney disease on chronic dialysis, with long-term current use of insulin (CMS/HCC) LIPID PANEL, STANDARD Routine 09/14/2024 10:51 AM EDT Type 2 diabetes mellitus with chronic kidney disease on chronic dialysis, with long-term current use of insulin (CMS/HCC) INTRAORAL - COMPLETE SERIES OF RADIOGRAPHIC IMAGES Routine 03/19/2024 3:00 PM EDT PERIODIC ORAL EVALUATION - ESTABLISHED PATIENT Routine 03/19/2024 3:00 PM EDT HM COLONOSCOPY Routine 02/23/2022 7:37 AM EDT ZZZ HISTORICAL HEPATITIS C AB W/REFL TO HCV RNA, QN, PCR Routine 12/09/2020 10:36 AM EDT from Last 3 Months or Most Recently Relevant to Health Maintenance Results * OCT, Retina - OU - Both Eyes (12/28/2024 1:30 PM EDT) Narrative Dulce Whelan, OD - 01/15/2025 2:25 PM EDT Images from the original result were not included. Right Eye Quality was good. Left Eye Quality was good. Notes OCT MACULA INTERPRETATION Optical Coherence Tomography Interpretation Report Measurements: OD OS Macula Thickness 256 microns 248 microns Test findings: OD: Normal foveal contour, perifoveal epiretinal membrane, no cystoid macular edema, no retinal pigment epithelium disruption, no subretinal fluid OS: Blunted nasal foveal contour, epiretinal membrane inferonasal to fovea, no cystoid macular edema, few small perimacular drusen, no subretinal fluid Impression and Plan: Mild epiretinal membrane in both eyes, no treatment necessary. Will monitor at his next exam. Dulce Whelan OD OPHTH TOMOGRAPHY Edited Resul t - Final * (ABNORMAL) Fructosamine (11/19/2024 11:32 AM EDT) Fructosamine 370(A) 205 - 285 umol/L [facility] Comment:THIS TEST WAS PERFOR MED AT:[email or web address] [id number] [place] [id number] JULES MD,PHD 11/19/2024 11:3 2 AM EDT 11/19/2024 12:50 PM EDT Macie Link DO LAB BLOOD ORDERABLES Final R esult [facility] [address] [place] [phone] * (ABNORMAL) POCT WOODY-14 Urine Drug Screen (11/13/2024 10:19 AM EDT) THC Negative Cocaine Screen, Urine Negative Opiate Screen, Urine Negative Methamphetamine Screen Urine Negative Amphetamine Screen, Urine Negative Benzodiazepines Screen, Urine Negative Barbiturate Screen, Urine Negative Methadone Screen, Urine Negative Buprenophine Screen, Urine Negative TCA, Urine Negative MDMA Urine Negative ng/mL Oxycodone Screen, Urine Positive Phencyclidine (PCP), Urine Negative Propoxyphene, Urine Negative Fentanyl, Urine Negative Urine Urine specimen obtained by clean catch procedure / Unknown 11/13/2024 10:19 AM EDT Narrative April Murrell RN - 11/13/2024 10:19 AM EDT UTOX cup Lot#[id number] Exp. 03/29/26 Internal Pass Control Macie Link DO POINT OF CARE TEST ENTER/EVENS T ORDERABLES Final Result * Drug Monitoring, Benzodiazepines, Quantitative, Urine (11/13/2024 9:30 AM EDT) Nordiazepam, GCMS Urine NEGATIVE [facility] Comment:[id number] ng/mL Oxazepam, GCMS Urine NEGATIVE [facility] Comment:[id number] ng/mL Lorazepam GCMS Urine NEGATIVE [facility] Comment:[id number] ng/mL Alprazolam, GCMS Urine NEGATIVE [facility] Comment:[id number] ng/mL Alphahydroxytriazolam, GCMS Ur NEGATIVE [facility] Comment:[id number] ng/mL Temazepam, GCMS Urine NEGATIVE [facility] Comment:[id number] ng/mL Alphahydroxymidazolam,GC MS Ur NEGATIVE [facility] Comment:[id number] ng/mL Aminoclonazepam, GCMS Urine 534 [facility] Comment:[id number] ng/mL Flurazepam Metabolite,GCMS Ur NEGATIVE [facility] Comment:[id number] ng/mL Benzodiazepines Comments SEE NOTE [facility] Comment:NOTES AND COMMENTSTh is drug testing is for medical treatment only. Analysiswas performed as non-forensic testing and these resultsshould be used only by healthcare providers torender diagnosis or treatment, or to monitor progress ofmedical conditions.Benzodiazepines Notes:Aminoclonazepam detected is consistent with the use of thedrug Clonazepam.LDT Notes:Confirmation tests were developed and their analyticalperformance characteristics have been determined by [employer]. It has not been cleared orapproved by the FDA. This assay has been validated pursuantto the CLIA regulations and is used for clinical purposes.Healthcare Providers needing Interpretation assistance,please contact us at [phone] ( ) M-F,8am to 10pm ESTPERFORMING SITE:[facility] [employer] [facility], [address] [place] [phone] Senior Engineer: DI SPARKS MD, CLIA:[id number] Urine (Urine, Random) 11/13/2024 9:30 AM EDT 11/13/2024 1:08 PM EDT us Macie Allenalfonso DO LAB URINE ORDERABLES Final R esult Performing Organization Address [facility]/ZIP Co de Phone Number [facility] [address] [place] [phone] * (ABNORMAL) Hemoglobin A1c (09/14/2024 10:51 AM EDT) Hemoglobin A1c 6.3(H) <6.0 % [facility] Comment:Hemoglobin A1C Refer ence Range Adults: 4.8 - 6.0 % Non diabetic: < 6.0 % Goal: < 7.0 %Additional Action Suggested: > 8.0 %Note: Hemoglobin A1c results are invalid for patients with abnormal amounts of HbF. Blood transfusions may impact the HbA1c concentration in the patient sample. Estimated Average Glucose 134 mg/dL [facility] Comment:eAG = Estimated ave rage glucose which is %A1C expressed asaverage glucose, using the formula of the D6D-PervzygYsajghp Glucose study (ADAG), Diabetes Care, Vol.31,#8,Dec. 2007 Blood Venous blood specimen / Unknown 09/14/2024 10:51 AM EDT 09/14/2024 1:08 PM EDT Macie Link DO LAB BLOOD ORDERABLES Final R esult Performing Organization Address [facility] Co de Phone Number [facility] [address] [place] [phone] * (ABNORMAL) Lipid Panel, Standard (09/14/2024 10:51 AM EDT) Triglycerides 321(H) <150 mg/dL [facility] Comment:Desirable Triglyceri de: less than 150 mg/dLBorderline High Triglyceride 150-199 mg/dLHigh Triglyceride: 200-499 mg/dLVery High Triglyceride: greater than or equal to 5OO mg/dL Cholesterol 98 <200 mg/dL [facility] Comment:Desirable Cholestero l: less than 200 mg/dLBorderline High Cholesterol: 200-239 mg/dLHigh Cholesterol: greater than 239 mg/dL LDL Cholesterol Calculated 7 <100 mg/dL [facility] Comment:Desirable LDL: less than 100 mg/dLNear Optimal/Above Optimal LDL: 110- 129 mg/dLBorderline High LDL: 130-159 mg/dLHigh LDL: 160-189 mg/dLVery High LDL: greater than or equal to 190 mg/dL HDL Cholesterol 27(L) >40 mg/dL [facility] Comment:Desirable HDL: great er than 40 mg/dL Note: This HDL assay may give artificially low results in patients with liver disease. Blood Venous blood specimen / Unknown 09/14/2024 10:51 AM EDT 09/14/2024 8:17 PM EDT Macie Link DO LAB BLOOD ORDERABLES Final R esult Performing Organization Address [facility]/ZIP Co de Phone Number [facility] [address] [place] [address] [phone] * Hm Colonoscopy (02/23/2022 7:37 AM EDT) Historical Provider HEALTH MAINTENANCE Final Result * HEPATITIS C AB W/REFL TO HCV RNA, QN, PCR (12/09/2020 10:36 AM EDT) HEPATITIS C ANTIBODY NON-REACT [facility] NON-REACT [facility] INDEX 0.01 <1.00 [facility] Comment: HCV antibody was non-reactive. There is no laboratory evidence of HCV infection. In most cases, no further action is required. However, if recent HCV exposure is suspected, a test for HCV RNA (test code 44816) is suggested. For additional information please refer to http://education.MiniLuxe.Scoreloop/faq/VCT52f6 (This link is being provided for informational/ educational purposes only.) 12/09/2020 10:3 6 AM EDT Macie Link DO HISTORICAL/NON ORDERABLE LAB S Final Result Performing Organization Address City/[facility]/ZIP Co de Phone Number [facility] [address] [place] [address], from Last 3 Months or Most Recently Relevant to Health Maintenance Insurance [facility] [employer] OPTIONS (HMO D-SNP) [facility] Care Teams Electric Distribution Checker Relationship Specialty Start Date End Date Macie Link DO [address] [place] [address] PCP - General Family Medicine 05/30/18 Flor Clark, DerikD [address] [place] [address] Pharmacist Internal Medicine 08/18/23
--- OUTSIDE RECORDS SUMMARY | 2025-02-12 19:13 | XMS_ITS | Encounter Summary ---
Author Organization [employer] [facility] Address [address] [place] [address] 7t [place] [address] Care Team Providers Care Human Insights Lead Ads Marketing Name Role Phone Macie Link DO Primary Care Provider Flor Clark PharmD Unavailable [phone] Encounter Details Date Type Department Care Team (Late Contact Info) Description 07/21/2022 Telephone [facility] [address] [place] [address] Macie Link DO [address] [place] [address] Social History Tobacco Use Types Packs/Day Years [...] Description 02/21/2025 10:00 AM EDT Medication Management [facility] [address] [place] [address] Flor Clark PharmD [address] [place] [address] 05/15/2025 9:00 AM EST Clinical Support [facility] [address] [place] [address] April Murrell RN 07/01/2025 1:00 PM EST Office Visit [facility] [address] [place], [place] [phone] Eleni Shin [address] [place] [address] documented as of this encounter Visit Diagnoses Not on filedocumented in this encounter Additional Health Concerns Assessment Noted Time PHQ-9 Depression Total Score: 2 07/06/19 23 9:23 AM EST documented as of this encounter Care Teams Human Insights Lead Ads Marketing Relationship Specialty Start Date End Date Macie Link DO [address] [place] [address] PCP - General Family Medicine 05/30/18 Flor Clark, Jaspreet [address] [place] [address] Pharmacist Internal Medicine 08/18/23 documented as of this encounter
--- OUTSIDE RECORDS SUMMARY | 2025-02-12 19:13 | XMS_ITS | Encounter Summary ---
Author Organization [employer] Address [address] [facility] 7t [place] [address] Care Team Providers Care Continuous Process Rotary Drum Tanner Name Role Phone FaribaMacie Primary Care Provider [phone] Flor Clark PharmD Unavailable [phone] Reason for Visit * Reason Onset Date Comments cx waiting period 12/07/2024 Encounter Details Date Type Department Care Team (Late st Contact Info) Description 12/07/2024 Telephone [facility] [address] [place] [address] Justin Anne, SHAY [address] [place] [address] cx waiting period Social History Tobacco Use Types Packs/Day Years [...] encounter Miscellaneous Notes * Telephone Encounter - Sandra Tucker - 12/07/2024 10:42 AM EDT Patient called in to cancel his appt believing that he had trouble with his insurance. I ran the CCA and insurance is currently active. He stated that he still wanted to cancel and reschedule. Patient was informed if he cancels same day there is a waiting period prior to rescheduling appt again. Patient opted to cancel appt and wait for call to reschedule DR documented in this encounter Plan of Treatment Upcoming Encounters Date Type Department Care Team (Late st Contact Info) Description 02/21/2025 10:00 AM EDT Medication Management [facility] [address] [place] [address] lFor Clark, Jaspreet [address] [place] [address] 05/15/2025 9:00 AM EST Clinical Support [facility] [address] [place] [address] April Murrell RN 07/01/2025 1:00 PM EST Office Visit [facility] [address] [place] [address] Eleni Shin [address] [place], [place] [phone] documented as of this encounter Goals Goal [...] documented as of this encounter Care Teams Continuous Process Rotary Drum Tanner Relationship Specialty Start Date End Date Macie Link DO [address] [place] [address] PCP - General Family Medicine 05/30/18 Flor Clark, Jaspreet [address] [place] [address] Pharmacist Internal Medicine 08/18/23 documented as of this encounter
--- OUTSIDE RECORDS SUMMARY | 2025-02-12 19:13 | XMS_ITS | Encounter Summary ---
Author Organization [employer] Address [address] [facility] 7t [place] [address] Care Team Providers Care Human Development Professor Name Role Phone FaribaCarissaMacie Primary Care Provider Flor Clark PharmD Unavailable [phone] Encounter Details Date Type Department Care Team ([facility] st Contact Info) Description 07/25/2024 Telephone [facility] [address] [place] [address] Justin Anne, DMD [address] [place] [address] Social History Tobacco Use Types Packs/Day Years [...] Description 02/21/2025 10:00 AM EDT Medication Management [facility] [address] [place] [address] Flor Clark, PharmD [address] [place] [address] 05/15/2025 9:00 AM EST Clinical Support [facility] [address] [place] [address] April Murrell RN 07/01/2025 1:00 PM EST Office Visit [facility] [address] [place] [address] Eleni Shin [address] [place] [address] documented as of this encounter Goals Goal [...] as of this encounter Care Teams Human Development Professor Relationship Specialty Start Date End Date Macie Link DO [address] [place] [address] PCP - General Family Medicine 05/30/18 Flor Clark PharmD [address] [place] [address] Pharmacist Internal Medicine 08/18/23 documented as of this encounter
--- OUTSIDE RECORDS SUMMARY | 2025-02-12 19:13 | XMS_ITS | Encounter Summary ---
Author Organization [employer] Address [address] [place] [address] 7t [place] [address] Care Team Providers Care Bulk Truck Driver Name Role Phone FaribaMacie Primary Care Provider Flor Clark PharmD Unavailable Encounter Details Date Type Department Care Team (Late st Contact Info) Description 06/16/2022 Orders Only [facility] [address] [place] [address] Macie Stiles LPN Social History Tobacco Use [...] Description 02/21/2025 10:00 AM EDT Medication Management [facility] [address] [place] [address] PuiaKaylynsa, PharmD [address] [place] [address] 05/15/2025 9:00 AM EST Clinical Support [facility] [address] [place] [address] April Murrell RN 07/01/2025 1:00 PM EST Office Visit [facility] [address] [place] [address] Eleni Shin [address] [place] [address] documented as of this encounter Visit Diagnoses Not on filedocumented in this encounter Care Teams Bulk Truck Driver Relationship Specialty Start Date End Date Macie Link DO [address] [place] [address] PCP - General Family Medicine 05/30/18 Flor Clark PharmD [address] [place] [address] Pharmacist Internal Medicine 08/18/23 documented as of this encounter
--- OUTSIDE RECORDS SUMMARY | 2025-02-12 19:13 | XMS_ITS | Encounter Summary ---
Author Organization [employer] [facility] Address [address] [place] [address] 7[address] [place] [address] Care Team Providers Care Seismograph Observer Name Role Phone Macie Link DO Primary Care Provider PuFlor quinones PharmD Unavailable Reason for Visit * Reason Comments Med Refill Encounter Details Date Type Department Care Team (Late st Contact Info) Description 08/13/2022 Refill [facility] [address] [place] [address] Macie Link DO [address] [place] [address] Anxiety Social History Tobacco Use Types Packs/Day [...] Description 02/21/2025 10:00 AM EDT Medication Management [facility] [address] [place] [address] Puia, Flor, PharmD [address] [place] [address] 05/15/2025 9:00 AM EST Clinical Support [facility] [address] [place] [address] April Murrell, RN 07/01/2025 1:00 PM EST Office Visit [facility] [address] [place], [place] [phone] Eleni Shin [address] [place] [address] documented as of this encounter Visit Diagnoses Diagnosis Anxiety Anxiety state, unspecified documented in this encounter Additional Health Concerns Assessment Noted Time PHQ-9 Depression Total Score: 2 07/06/19 23 9:23 AM EST documented as of this encounter Care Teams Seismograph Observer Relationship Specialty Start Date End Date Macie Link DO [address] [place] [address] PCP - General Family Medicine 05/30/18 Flor Clark PharmD [address] [place] [address] Pharmacist Internal Medicine 08/18/23 documented as of this encounter
--- OUTSIDE RECORDS SUMMARY | 2025-02-12 19:14 | XMS_ITS | Encounter Summary ---
Author Organization [employer] Address 75 [facility] 7t [place] [address] Care Team Providers Care Gold Miner Name Role Phone Macie Link DO Primary Care Provider [phone] Flor Clark PharmD Unavailable [phone] Reason for Visit * Reason Comments Med Refill Encounter Details Date Type Department Care Team (Late st Contact Info) Description 06/01/2023 Refill [facility] [address] [place] [address] Macie Link DO [address] [place] [address] Anxiety; Chronic neck pain Social History Tobacco [...] Description 02/21/2025 10:00 AM EDT Medication Management [facility] [address] [place] [address] Flor Clark PharmD [address] [place] [address] 05/15/2025 9:00 AM EST Clinical Support [facility] [address] [place] [address] April Murrell, RN 07/01/2025 1:00 PM EST Office Visit [facility] [address] [place] [address] Eleni Shin [address] [place] [address] documented as of this encounter Visit Diagnoses Diagnosis Anxiety Anxiety state, unspecified Chronic neck pain Cervicalgia documented in this encounter Additional Health Concerns Assessment Noted Time PHQ-9 Depression Total Score: 13 024 9:15 AM EST documented as of this encounter Care Teams Gold Miner Relationship Specialty Start Date End Date Macie Link DO [address] [place] [address] PCP - General Family Medicine 05/30/18 Puia, Jaspreet Ray [address] [place] [address] Pharmacist Internal Medicine 08/18/23 documented as of this encounter
--- OUTSIDE RECORDS SUMMARY | 2025-02-12 19:14 | XMS_ITS | Encounter Summary ---
Author Organization [employer] Address [address] [facility] 7t [place] [address] Care Team Providers Care Mechanical Engineering Specialist Name Role Phone Macie Link DO Primary Care Provider [phone] Flor Clark PharmD Unavailable Reason for Visit * Reason Comments Med Refill Encounter Details Date Type Department Care Team (Late st Contact Info) Description 08/22/2023 Refill [facility] [address] [place] [address] Macie Link DO [address] [place], [place] [phone] Chronic neck pain; Anxiety Social History Tobacco [...] Description 02/21/2025 10:00 AM EDT Medication Management [facility] [address] [place] [address] Flor Clark, PharmD [address] [place] [address] 05/15/2025 9:00 AM EST Clinical Support [facility] [address] [place] [address] April Murrell RN 07/01/2025 1:00 PM EST Office Visit [facility] [address] [place] [address] Eleni Shin [address] [place] [address] documented as of this encounter Goals Goal [...] documented as of this encounter Care Teams Mechanical Engineering Specialist Relationship Specialty Start Date End Date Macie Link DO [address] [place] [address] PCP - General Family Medicine 05/30/18 Flor Clark PharmD [address] [place] [address] Pharmacist Internal Medicine 08/18/23 documented as of this encounter
--- OUTSIDE RECORDS SUMMARY | 2025-02-12 19:14 | XMS_ITS | Encounter Summary ---
Author Organization [facility] Address [address] [place] [address] 7[place] [address] Care Team Providers Care Central Supply Worker Name Role Phone Macie Link DO Primary Care Provider Flor Clark PharmD Unavailable [phone] Reason for Visit * Reason Comments Med Refill Encounter Details Date Type Department Care Team (Late st Contact Info) Description 01/13/2023 Refill [facility] [address] [place] [address] Macie Link DO [address] [place] [address] Chronic neck pain Social History Tobacco Use [...] Description 02/21/2025 10:00 AM EDT Medication Management [facility] [address] [place] [address] Puia, Flor, PharmD [address] [place] [address] 05/15/2025 9:00 AM EST Clinical Support [facility] [address] [place], [place] [phone] April Murrell RN 07/01/2025 1:00 PM EST Office Visit [facility] [address] [place], [place] [phone] Eleni Shin [address] [place] [address] documented as of this encounter Visit Diagnoses Diagnosis Chronic neck pain Cervicalgia documented in this encounter Additional Health Concerns Assessment Noted Time PHQ-9 Depression Total Score: 2 07/06/19 23 9:23 AM EST documented as of this encounter Care Teams Central Supply Worker Relationship Specialty Start Date End Date Macie Link DO [address] [place] [address] PCP - General Family Medicine 05/30/18 Flor Clark PharmD [address] [place] [address] Pharmacist Internal Medicine 08/18/23 documented as of this encounter
--- OUTSIDE RECORDS SUMMARY | 2025-02-12 19:14 | XMS_ITS | Encounter Summary ---
Author Organization [employer] Address [address] [facility] 7t [place] [address] Care Team Providers Care Resourcing Consultant Name Role Phone Macie Link DO Primary Care Provider [phone] Flor Clark PharmD Unavailable [phone] Reason for Visit * Reason Comments Med Refill Encounter Details Date Type Department Care Team (Late st Contact Info) Description 03/08/2023 Refill [facility] [address] [place] [address] Macie Link DO [address] [place] [address] Anxiety; Chronic neck pain Social History Tobacco [...] 10:00 AM EDT Medication Management [facility] [address] [place] [address] Flor Clark PharmD [address] [place] [address] 05/15/2025 9:00 AM EST Clinical Support [facility] [address] [place] [address] April Murrell RN 07/01/2025 1:00 PM EST Office Visit [facility] [address] [place] [address] Eleni Shin [address] [place] [address] documented as of this encounter Visit Diagnoses Diagnosis Anxiety Anxiety state, unspecified Chronic neck pain Cervicalgia documented in this encounter Additional Health Concerns Assessment Noted Time PHQ-9 Depression Total Score: 2 07/06/19 23 9:23 AM EST documented as of this encounter Care Teams Resourcing Consultant Relationship Specialty Start Date End Date Macie Link DO [address] [place] [address] PCP - General Family Medicine 05/30/18 Flor Clark, PharmD [address] [place] [address] Pharmacist Internal Medicine 08/18/23 documented as of this encounter
--- OUTSIDE RECORDS SUMMARY | 2025-02-12 19:14 | XMS_ITS | Encounter Summary ---
Author Organization [employer] Address [address] [facility] 7t [place] [address] Care Team Providers Care Fashion Buying Internship Name Role Phone Macie Link DO Primary Care Provider [phone] Flor Clark PharmD Unavailable [phone] Reason for Visit * Reason Comments Med Refill Encounter Details Date Type Department Care Team ([facility] st Contact Info) Description 01/23/2025 Refill [facility] [address] [place] [address] Macie Link DO [address] [place] [address] Chronic GERD Social History Tobacco Use Types [...] Description 02/21/2025 10:00 AM EDT Medication Management [facility] [address] [place] [address] Flor Clark, PharmD [address] [place] [address] 05/15/2025 9:00 AM EST Clinical Support [facility] [address] [place] [address] April Murrell RN 07/01/2025 1:00 PM EST Office Visit [facility] [address] [place] [address] Eleni Shin [address] [place] [address] documented as of this encounter Goals Goal [...] of this encounter Visit Diagnoses Diagnosis Chronic GERD documented in this encounter Additional Health Concerns Assessment Noted Time PHQ-9 Depression Total Score: 9 09/12/19 25 11:18 AM EDT documented as of this encounter Care Teams Fashion Buying Internship Relationship Specialty Start Date End Date Macie Link DO [address] [place] [address] PCP - General Family Medicine 05/30/18 Flor Clark PharmD [address] [place] [address] Pharmacist Internal Medicine 08/18/23 documented as of this encounter
--- OUTSIDE RECORDS SUMMARY | 2025-02-12 19:14 | XMS_ITS | Encounter Summary ---
Author Organization [employer] Address [address] [facility] 7t [place] [address] Care Team Providers Care Vacuum Cooker Operator Name Role Phone Macie Link DO Primary Care Provider [phone] Flor Clark PharmD Unavailable [phone] Reason for Visit * Reason Onset Date Comments Appointment Request 01/30/2025 Encounter Details Date Type Department Care Team ([facility] st Contact Info) Description 01/30/2025 Telephone [facility] [address] [place] [address] Macie Link DO [address] [place] [address] Appointment Request Social History Tobacco Use Types [...] encounter Miscellaneous Notes * Telephone Encounter - Duarte Lubin - 01/30/2025 10:04 AM EDT TC from pt wanting to be rescheduled . Original visit 02/07 with Flor documented in this encounter Plan of Treatment Upcoming Encounters Date Type Department Care Team (Late st Contact Info) Description 02/21/2025 10:00 AM EDT Medication Management [facility] [address] [place] [address] Flor Clark, PharmD [address] [place] [address] 05/15/2025 9:00 AM EST Clinical Support [facility] [address] [place] [address] April Murrell RN 07/01/2025 1:00 PM EST Office Visit [facility] [address] [place] [address] Eleni Shin [address] [place] [address] documented as of this encounter Goals Goal [...] documented as of this encounter Care Teams Vacuum Cooker Operator Relationship Specialty Start Date End Date Macie Link DO [address] [place] [address] PCP - General Family Medicine 05/30/18 Flor Clark PharmD [address] [place] [address] Pharmacist Internal Medicine 08/18/23 documented as of this encounter
--- OUTSIDE RECORDS SUMMARY | 2025-02-12 19:14 | XMS_ITS | Encounter Summary ---
Author Organization [facility], Address [address] [place] [address] Phone Care Team Providers Care Veterinary Laboratory Technician Name Role Phone Macie Link DO Primary Care Provider Unava ilable Encounter Details Date Type Department Care Team (Late st Contact Info) Description 12/09/2021 Documentation Only [facility], [address] [place] [address] Romario [place] MD [address] [place] [phone] Social History Tobacco Use Types Packs/Day Years [...] on filedocumented in this encounter Care Teams Veterinary Laboratory Technician Relationship Specialty Start Date End Date Macie Link DO PCP - General 04/03/19 documented as of this encounter
--- OUTSIDE RECORDS SUMMARY | 2025-02-12 19:14 | XMS_ITS | Clinical Summary ---
Author Organization [facility] Address [address] [place] [address] Care Team Providers Care Manager Food Beverage Name Role Phone Ref, Has No Pcp Or Primary Care Provider Unavail able Allergies No known active allergies Medications clonazePAM [...] THE EVENING 5 Active FreeStyle Gurmeet 2 Patterson misc SMARTSIG:As Directed 4 Active FreeStyle Gurmeet [...] Active ipratropium (ATROVENT) 0.03% nasal spray SMARTSI [place](s) Both Nares 3 Times Daily Active Accu-Chek [...] Encounters Date Type Department Care Team Description 01/25/2025 Orders Only [facility] Interventional Radiology [address] [place] [address] Sharan Alcazar MD 12/07/2024 Documentation [facility] 5th Floor [address] [place] [address] Pierce Au MD 12/04/2024 Telephone [facility] 5th Floor [address] [place] [address] Telephone Intake, Staff PAC Test Result Request 11/27/2024 Telephone [facility] Transplant Department [address] [place] [address] Lynda Diaz RN from Last 3 Months Immunizations Immunization Administration Dates Next Due COVID-19, Moderna, mRNA, LNP -S, Bivalent Booster, PF 03/12/2022 Hepatitis B vaccine (HEPLISA V-B) vaccine 0.5 mL IM 12/29/2022,11/03/2022,10/04/2022,2022 Pneumococcal conjugate PCV20,polysaccharide PII703 conjugate, adjuvant, PF (Prevnar 20) 06/22/2023 Social [...] 76 09/24/2024 7:55 AM EDT Temperature 37 C (98.6 F) 09/24/2024 7:55 AM EDT Respiratory Rate 16 [...] Info) Description 03/19/2025 9:00 AM EDT Follow-Up [facility] Renal Transplant [address] [place] [address] Louie Pablo MD [address] [place], [place] [phone] 03/19/2025 9:30 AM EDT Social Work [facility] Renal Transplant [address] [place] [address] Imani Livingston LICSW [address] [place] [address] 05/09/2025 11:00 AM EST Follow-Up [facility] 5th Floor [address] [place] [address] Pierce Au MD [address] [place] [address] Health Maintenance Due Date Last Done Comments 25 Hydroxy / Vitamin D 1959 CKD: Referral to Nutrition 1959 Cologuard 1959 Colonoscopy 1959 PTH 1959 Sigmoidoscopy 1959 Ophthalmology Exam 09/21/1969 Urine Microalbumin 09/21/1969 Alcohol/Substance Use Screening 05/30/2024 Depression Screening and Follow-Up 05/30/2024 Health Care Proxy Review 05/30/2024 Social Drivers of Health Lorena ual Screening 05/30/2024 Basic Metabolic Panel 12/14/2024 09/14/2024 , 07/06/2024, 11/03/2023, Additional history exists COVID-19 Vaccine (2024-2 6 season) 2025 02/23/2024, 03/08/2023, 03/12/2022, Additional history exists Influenza Vaccine (#1) 2025 , 02/03/2023, 02/20/2022, Additional history exists Hemoglobin A1C 03/13/2025 09/11/2024, [...] Completed 12/26/2023, 06/22/2023, 05/28/2022, Additional history exists CKD: Referral to Nephrology Completed 03/15/2024 HIV Screening Completed 03/15/2024, 11/27, 12/09/2020 Hepatitis C Screening Completed 03/15/2024 Procedures * Due to [employer] law, this organization might not be sharing negative HIV tests. Procedure Name Priority Date/Time Associated Diagnosis Comments BASIC METABOLIC PANEL STAT 07/06/2024 11:59 AM [...] Health Maintenance Results * Due to [employer] law, this organization might not be sharing negative HIV tests. * (ABNORMAL) Basic Metabolic Panel (07/06/2024 11:59 AM EST) NA 138 135 - 145 mmol/L 07/06/2024 12:39 PM EST [facility] K 4.4 3.5 - 5.3 mmol/L 07/06/2024 12:39 PM EST [facility] Cl 96(L) 98 - 107 mmol/L 07/06/2024 12:39 PM EST [facility] CO2 30 22 - 32 mmol/L 07/06/2024 12:39 PM EST [facility] BUN 19 7 - 23 mg/dL 07/06/2024 12:39 PM EST [facility] Creatinine 5.41(H) 0.60 - 1.30 mg/dL 07/06/2024 12:39 PM EST [facility] Glucose 147(H) 65 - 99 mg/dL 07/06/2024 12:39 PM EST [facility] Calcium 9.7 8.6 - 10.5 mg/dL 07/06/2024 12:39 PM EST [facility] Anion Gap 12 5 - 15 07/06/2024 12:39 PM EST [facility] eGFR 11(L) >=60 mL/min/1 .73m2 07/06/2024 12:39 PM EST [facility] Comment:The estimated glomer ular [...] MD LAB BLOOD ORDERABLES Final Resu lt [facility] [address] [place] [address], * (ABNORMAL) CBC Auto Differential (03/15/2024 12:39 PM EDT) WBC 6.2 3.8 - 10.8 10*3/uL 03/15/2024 1:11 PM EDT [facility] RBC 3.90(L) 4.20 - 5.80 10*6/uL 03/15/2024 1:11 PM EDT [facility] Hemoglobin 11.9(L) 13.2 - 17.1 g/dL 03/15/2024 1:11 PM EDT [facility] Hematocrit 36.8(L) 38.5 - 50.0 % 03/15/2024 1:11 PM EDT [facility] MCV 94.4 80.0 - 100.0 fL 03/15/2024 1:11 PM EDT [facility] MCH 30.5 27.0 - 33.0 pg 03/15/2024 1:11 PM EDT [facility] MCHC 32.3 32.0 - 36.0 g/dL 03/15/2024 1:11 PM EDT [facility] RDW 14.2 11.0 - 15.0 % 03/15/2024 1:11 PM EDT [facility] Platelets 175 140 - 400 10*3/uL 03/15/2024 1:11 PM EDT [facility] MPV 11.3 7.5 - 12.5 fL 03/15/2024 1:11 PM EDT [facility] Neutrophil % 59.1 % 03/15/2024 1:11 PM EDT [facility] Immature Grans % 0.2 0.0 - 0.9 % 03/15/2024 1:11 PM EDT [facility] Lymphocyte % 28.1 % 03/15/2024 1:11 PM EDT [facility] Monocyte % 9.9 % 03/15/2024 1:11 PM EDT [facility] Eosinophil % 2.4 % 03/15/2024 1:11 PM EDT [facility] Basophil % 0.3 % 03/15/2024 1:11 PM EDT [facility] Neutrophil # 3.63 1.50 - 7.80 10*3/uL 03/15/2024 1:11 PM EDT [facility] Immature Grans # <0.03 <=0.03 10*3/uL 03/15/2024 1:11 PM EDT [facility] Lymphocyte # 1.70 0.85 - 3.90 10*3/uL 03/15/2024 1:11 PM EDT [facility] Monocyte # 0.60 0.20 - 0.95 10*3/uL 03/15/2024 1:11 PM EDT [facility] Eosinophil # 0.20 0.02 - 0.50 10*3/uL 03/15/2024 1:11 PM EDT [facility] Basophil # <0.03 0.00 - 0.20 10*3/uL 03/15/2024 1:11 PM EDT [facility] nRBC % 0.0 /100 WBCs 03/15/2024 1:11 PM EDT [facility] nRBC # <0.01 <0.01 10*3/uL 03/15/2024 1:11 PM EDT [facility] Blood Structure of peripheral vein / Unknown Venipuncture / Unknown 03/15/2024 12:39 PM EDT 03/15/2024 12:59 PM EDT Tobias Vogt MD LAB BLOOD ORDERABLES Final Result [facility] [address] [place] [address], * Hepatitis C Antibody w/Reflex to PCR (03/15/2024 12:39 PM EDT) Hepatitis C Antibody NON-REACT ALBINO NON-REACT ALBINO 03/16/2024 3:27 AM EDT [facility] Comment: HCV antibody was non-reactive. There is no laboratory evidence of HCV infection. In most cases, no further action is required. However, if recent HCV exposure is suspected, a test for HCV RNA (test code 76406) is suggested. For additional information please refer to http://education.YouEarnedIt/faq/ONG05f1 (This link is being provided for informational/ educational purposes only.) Blood Structure of peripheral vein / Unknown Venipuncture / Unknown 03/15/2024 12:39 PM EDT 03/15/2024 12:58 PM EDT Narrative [facility] - 03/16/2024 3:27 AM EDT [facility] Received Date: Tobias Vogt MD LAB BLOOD ORDERABLES Final Result [facility] [address]rd [facility], [place] [address], [place] [phone] [facility] [employer] [facility] [address], [place] [address], [place] [phone] * Phosphorus (03/15/2024 12:39 PM EDT) Phosphorus 3.4 2.5 - 4.5 mg/dL 03/15/2024 1:45 PM EDT [facility] Blood Structure of peripheral vein / Unknown Venipuncture / Unknown 03/15/2024 12:39 PM EDT 03/15/2024 12:58 PM EDT Tobias Vogt MD LAB BLOOD ORDERABLES Final Result [facility] [address] [place] [address], * (ABNORMAL) Hemoglobin A1c (03/15/2024 12:39 PM EDT) Hemoglobin A1C 6.3(H) <5.7 % of total Hgb 03/16/2024 2:05 AM EDT [facility] Comment: For someone without known diabetes, a [...] (MG/DL) 134 mg/dL 03/16/2024 2:05 AM EDT [facility] eAG (MMOL/L) 7.4 mmol/L 03/16/2024 2:05 AM EDT [facility]) Blood Structure of peripheral vein / Unknown Venipuncture / Unknown 03/15/2024 12:39 PM EDT 03/15/2024 12:59 PM EDT Narrative [facility] - 03/16/2024 2:05 AM EDT [facility] Received Date: Tobias Vogt MD LAB BLOOD ORDERABLES Final Result [facility] [address] [facility] 3rd Floor, [place] [address], [place] [phone] [facility] [address] [facility] 3rd Floor, [place] [address], [place] [phone] from Last 3 Months or Most Recently Relevant to Health Maintenance Insurance [facility] Advance Directives Documents on File Type Date Recorded Patient Efficiency Expert Expl [facility] Proxy 03/20/2024 5:28 PM 10- Care Teams Manager Food Beverage Relationship Specialty Start Date End Date Ref, Has No Pcp Or DO NOT EDIT THIS RECORD VIA PROVIDER ON THE FLY PCP - General Needle Punch Machine Operator Helper 03/15/24
--- OUTSIDE RECORDS SUMMARY | 2025-02-12 19:14 | XMS_ITS | Encounter Summary ---
Author Organization [employer] [facility] Address [address] [facility] 7t [place] [address] Care Team Providers Care Nurse Gynecology Name Role Phone Macie Link DO Primary Care Provider Flor Clark PharmD Unavailable Encounter Details Date Type Department Care Team ([facility] st Contact Info) Description 06/14/2023 Telephone [facility] MEDICINE [address] [place], [place] [phone] Macie Link DO [address] [place] [address] Social History Tobacco Use Types Packs/Day Years [...] Medication Management [facility] MEDICINE [address] [place] [address] Flor Clark PharmD [address] [place] [address] 05/15/2025 9:00 AM EST Clinical Support [facility] MEDICINE [address] [place] [address] April Murrell RN 07/01/2025 1:00 PM EST Office Visit [facility] ADULT DENTAL [address] [place] [address] Eleni Shin [address] [place] [address] documented as of this encounter Visit Diagnoses Not on filedocumented in this encounter Additional Health Concerns Assessment Noted Time PHQ-9 Depression Total Score: 13 024 9:15 AM EST documented as of this encounter Care Teams Nurse Gynecology Relationship Specialty Start Date End Date Macie Link DO [address] [place] [address] PCP - General Family Medicine 05/30/18 Flor Clark PharmD [address] [place] [address] Pharmacist Internal Medicine 08/18/23 documented as of this encounter
--- OUTSIDE RECORDS SUMMARY | 2025-02-12 19:14 | XMS_ITS | Encounter Summary ---
Author Organization [facility] [facility] Address [address] [facility] 7t [place] [address] Care Team Providers Care Residency Coordinator Name Role Phone Macie Link DO Primary Care Provider [phone] Flor Clark PharmD Unavailable [phone] Reason for Visit * Reason Comments Med Refill Encounter Details Date Type Department Care Team (Late st Contact Info) Description 03/11/2023 Refill [facility] MEDICINE [address] [place] [address] Macie Link DO [address] [place], [place] [phone] Chronic neck pain; Anxiety Social History Tobacco [...] Description 02/21/2025 10:00 AM EDT Medication Management [facility] MEDICINE [address] [place] [phone] Flor Clark PharmD [address] [place] [address] 05/15/2025 9:00 AM EST Clinical Support [facility] MEDICINE [address] [place] [phone] April Murrell RN 07/01/2025 1:00 PM EST Office Visit [facility] ADULT DENTAL [address] [place] [address] Eleni Shin [address] [place] [address] documented as of this encounter Visit Diagnoses Diagnosis Chronic neck pain Cervicalgia Anxiety Anxiety state, unspecified documented in this encounter Additional Health Concerns Assessment Noted Time PHQ-9 Depression Total Score: 2 07/06/19 23 9:23 AM EST documented as of this encounter Care Teams Residency Coordinator Relationship Specialty Start Date End Date Macie Likn DO [address] [place] [address] PCP - General Family Medicine 05/30/18 Flor Clark, PharmD [address] [place] [address] Pharmacist Internal Medicine 08/18/23 documented as of this encounter
--- OUTSIDE RECORDS SUMMARY | 2025-02-12 19:14 | XMS_ITS | Encounter Summary ---
Author Organization [facility], Address [address] [place] [address] Phone Care Team Providers Care Carton Making Machine Operator Name Role Phone Macie Link DO Primary Care Provider Unava ilable Encounter Details Date Type Department Care Team (Late st Contact Info) Description 11/27/2021 Documentation Only [facility], [address] [place] [address] Romario Ford MD [address] [place] [phone] Social History Tobacco Use Types Packs/Day Years [...] on filedocumented in this encounter Care Teams Carton Making Machine Operator Relationship Specialty Start Date End Date Macie Link DO PCP - General 04/03/19 documented as of this encounter
--- OUTSIDE RECORDS SUMMARY | 2025-02-12 19:14 | XMS_ITS | Encounter Summary ---
Author Organization [facility] Address [address] [place] [address] Care Team Providers Care Manager Regional Name Role Phone Ref, Has No Pcp Or Primary Care Provider Unavail able Encounter Details Date Type Department Care Team (Late st Contact Info) Description 01/25/2025 Orders Only [facility] Interventional Radiology [address] [place] [address] Sharan Alcazar MD [address] [place] [address] [place] [address] Social History Tobacco Use Types Packs/Day Years [...] Info) Description 03/19/2025 9:00 AM EDT Follow-Up [facility] Renal Transplant [address] [place] [address] Louie Pablo MD [address] [place] [address] 03/19/2025 9:30 AM EDT Social Work [facility] Renal Transplant [address] [place] [address] Imani Livingston LICSW [address] [place] [address] 05/09/2025 11:00 AM EST Follow-Up [facility] 5th Floor [address] [place] [address] Pierce Au MD [address] [place] [address] documented as of this encounter Visit Diagnoses Not on filedocumented in this encounter Care Teams Manager Regional Relationship Specialty Start Date End Date Ref, Has No Pcp Or DO NOT EDIT THIS RECORD VIA PROVIDER ON THE FLY PCP - General Senior Manufacturing Test Engineer 03/15/24 documented as of this encounter
--- OUTSIDE RECORDS SUMMARY | 2025-02-12 19:14 | XMS_ITS | Encounter Summary ---
Author Organization [employer] [facility] Address [address] [facility] 7t [place] [address] Care Team Providers Care Aircraft Systems Repairer Name Role Phone Macie Link DO Primary Care Provider [phone] Flor Clark PharmD Unavailable [phone] Reason for Visit * Reason Comments Med Refill Encounter Details Date Type Department Care Team (Late st Contact Info) Description 06/03/2023 Refill [facility] MEDICINE [address] [place] [address] Macie Link DO [address] [place] [address] Anxiety Social History Tobacco Use Types Packs/Day [...] 10:00 AM EDT Medication Management [facility] MEDICINE [address] [place] [address] Flor Clark PharmD [address] [place] [address] 05/15/2025 9:00 AM EST Clinical Support [facility] MEDICINE [address] [place] [address] April Murrell RN 07/01/2025 1:00 PM EST Office Visit [facility] ADULT DENTAL [address] [place] [address] Eleni Shin [address] [place] [address] documented as of this encounter Visit Diagnoses Diagnosis Anxiety Anxiety state, unspecified documented in this encounter Additional Health Concerns Assessment Noted Time PHQ-9 Depression Total Score: 13 024 9:15 AM EST documented as of this encounter Care Teams Aircraft Systems Repairer Relationship Specialty Start Date End Date Macie Link DO [address] [place] [address] PCP - General Family Medicine 05/30/18 Flor Clark PharmD [address] [place] [address] Pharmacist Internal Medicine 08/18/23 documented as of this encounter
--- OUTSIDE RECORDS SUMMARY | 2025-02-12 19:14 | XMS_ITS ---
Author Organization [facility] Address [address] [place] [address] Care Team Providers Care Production Quality Manager Name Role Phone Ref, Has No Pcp Or Primary Care Provider Unavail able Transplant Episode Kidney Candidate [facility] [place] - [facility] Evaluation began on 03/15/2024 Marked as Active on 03/15/2024 Kidney CoordinatorLynda Diaz RN Fax: N/A Email: N/A Scores Score Value Updated Exceptions/Reas ons CPRA Not available EPTS (Calc) 90 02/12/2025 [facility] Organ Diagnosis Organ Primary Contributory Kidney Diabetes Mellitus - Type II Care Team Name Role Phone Fax Email Lynda Diaz RN Kidney Coordinator [phone] N/A N/A Anastacio Nickerson MD Referring Physician [phone] N/A Events Pre-Transplant Referred: 12/21/2023 Evaluation began: 03/15/2024 Dialysis History Dialysis History Start End Type Comments Center 12/17/2021 In-center Hemodialysis M, W, [facility] Dialysis Center Information Center Phone Fax Address [facility] [phone] [address] [facility] [id number] [facility] [address]
--- OUTSIDE RECORDS SUMMARY | 2025-02-12 19:14 | XMS_ITS | Encounter Summary ---
Author Organization [facility] Address [address] [place] [address] 7t [place] [address] Care Team Providers Care Net Application Support Specialist Name Role Phone Macie Link DO Primary Care Provider PuFlor quinones PharmD Unavailable Reason for Visit * Reason Comments Med Refill Encounter Details Date Type Department Care Team (Late st Contact Info) Description 12/31/2022 Refill [facility] MEDICINE [address] [place] [address] Macie Link DO [address] [place] [address] Anxiety Social History Tobacco Use Types Packs/Day [...] Description 02/21/2025 10:00 AM EDT Medication Management [facility] MEDICINE [address] [place] [address] Puia, Flor, PharmD [address] [place] [address] 05/15/2025 9:00 AM EST Clinical Support [facility] MEDICINE [address] [place] [address] April Murrell, RN 07/01/2025 1:00 PM EST Office Visit [facility] ADULT DENTAL [address] [place], [place] [phone] Eleni Shin [address] [place] [address] documented as of this encounter Visit Diagnoses Diagnosis Anxiety Anxiety state, unspecified documented in this encounter Additional Health Concerns Assessment Noted Time PHQ-9 Depression Total Score: 2 07/06/19 23 9:23 AM EST documented as of this encounter Care Teams Net Application Support Specialist Relationship Specialty Start Date End Date Macie Link DO [address] [place] [address] PCP - General Family Medicine 05/30/18 Flor Clark PharmD [address] [place] [address] Pharmacist Internal Medicine 08/18/23 documented as of this encounter
--- OUTSIDE RECORDS SUMMARY | 2025-02-12 19:14 | XMS_ITS | Encounter Summary ---
Author Organization [employer] Address [address] [facility] 7t [place] [address] Care Team Providers Care Group Fitness Department Head Name Role Phone Jane Linkfer Primary Care Provider [phone] Flor Clark PharmD Unavailable [phone] Encounter Details Date Type Department Care Team (Late st Contact Info) Description 09/09/2023 Orders Only [facility] MEDICINE [address] [place] [address] ProviderProsper MD Social History Tobacco Use Types [...] AM EDT Medication Management [facility] MEDICINE [address] [place] [address] Flor Clark PharmD [address] [place] [address] 05/15/2025 9:00 AM EST Clinical Support [facility] MEDICINE [address] [place] [address] April Murrell RN 07/01/2025 1:00 PM EST Office Visit [facility] ADULT DENTAL [address] [place] [address] Eleni Shin [address] [place] [address] documented as of this encounter Goals Goal [...] documented as of this encounter Care Teams Group Fitness Department Head Relationship Specialty Start Date End Date Macie Link DO [address] [place] [address] PCP - General Family Medicine 05/30/18 Flor Clark PharmD [address] [place] [address] Pharmacist Internal Medicine 08/18/23 documented as of this encounter
--- OUTSIDE RECORDS SUMMARY | 2025-02-12 19:14 | XMS_ITS | Encounter Summary ---
Author Organization [employer] Address [address] [facility] 7t [place] [address] Care Team Providers Care Inspector Screen Printing Name Role Phone Macie Link DO Primary Care Provider [phone] Flor Clark PharmD Unavailable [phone] Reason for Visit * Reason Onset Date Comments Prior Authorization 08/17/2023 Encounter Details Date Type Department Care Team (Late st Contact Info) Description 08/17/2023 Telephone [facility] MEDICINE [address] [place] [address] Macie Link DO [address] [place] [address] Prior Authorization Social History Tobacco Use Types [...] 2.5-2.5 % cream To be sent to: [facility] [place], [place] - [address] [place] [address] documented in this encounter Plan of Treatment Upcoming Encounters Date Type Department Care Team ([facility] st Contact Info) Description 02/21/2025 10:00 AM EDT Medication Management [address] [address] Flor Clark, PharmD [address] [place] [address] 05/15/2025 9:00 AM EST Clinical Support [address] [address] April Murrell RN 07/01/2025 1:00 PM EST Office Visit [facility] ADULT DENTAL [address] [place], [place] [phone] Eleni Shin [address] [place] [address] documented as of this encounter Goals Goal [...] documented as of this encounter Care Teams Inspector Screen Printing Relationship Specialty Start Date End Date Macie Link DO [address] [place] [address] PCP - General Family Medicine 05/30/18 Flor Clark PharmD [address] [place], [place] [phone] Pharmacist Internal Medicine 08/18/23 documented as of this encounter
--- OUTSIDE RECORDS SUMMARY | 2025-02-12 19:14 | XMS_ITS | Encounter Summary ---
Author Organization [employer] Address 75 [facility] 7t [place] [address] Care Team Providers Care Records Management Analyst Name Role Phone Macie Link DO Primary Care Provider Flor Clark PharmD Unavailable Reason for Visit * Reason Comments Med Refill Encounter Details Date Type Department Care Team (Late st Contact Info) Description 12/14/2024 Refill [facility] [address] [place] [address] Macie Link DO [address] [place] [address] Chronic neck pain Social History Tobacco Use [...] 02/21/2025 10:00 AM EDT Medication Management [facility] MED[facility]INE [address] [place] [address] Flor Clark PharmD [address] [place] [address] 05/15/2025 9:00 AM EST Clinical Support [facility] [address] [place] [address] April Murrell RN 07/01/2025 1:00 PM EST Office Visit [facility] ADULT DENTAL [address] [place] [address] Eleni Shin [address] [place] [address] documented as of this encounter Goals Goal [...] documented as of this encounter Care Teams Records Management Analyst Relationship Specialty Start Date End Date Macie Link DO 230 [place] [address] PCP - General Family Medicine 05/30/18 Flor Clark PharmD 230 [place] [address] Pharmacist Internal Medicine 08/18/23 documented as of this encounter
--- OUTSIDE RECORDS SUMMARY | 2025-02-12 19:14 | XMS_ITS | Encounter Summary ---
Author Organization [employer] Address 75 [facility] 7t [place] [address] Care Team Providers Care Crusher Wet Ground Mica Name Role Phone Macie Link DO Primary Care Provider Flor Clark PharmD Unavailable [phone] Reason for Visit * Reason Comments Med Refill Encounter Details Date Type Department Care Team (Late st Contact Info) Description 12/13/2024 Refill [facility] [address] [place] [address] Macie Link DO [address] [place] [address] Chronic neck pain Social History Tobacco Use [...] AM EDT Medication Management [facility] [address] [place] [address] Flor Clark PharmD [address] [place] [address] 05/15/2025 9:00 AM EST Clinical Support [facility] [address] [place] [address] April Murrell RN 07/01/2025 1:00 PM EST Office Visit [facility] ADULT DENTAL [address] [place] [address] Eleni Shin [address] [place] [address] documented as of this encounter Goals Goal [...] documented as of this encounter Care Teams Crusher Wet Ground Mica Relationship Specialty Start Date End Date Macie Link DO [address] [place] [address] PCP - General Family Medicine 05/30/18 Flor Clark PharmD [address] [place] [address] Pharmacist Internal Medicine 08/18/23 documented as of this encounter
--- OUTSIDE RECORDS SUMMARY | 2025-02-12 19:14 | XMS_ITS | Encounter Summary ---
Author Organization [employer] Address 75 [facility] 7t [place] [address] Care Team Providers Care Looseleaf Binder Coverer Name Role Phone Macie Link DO Primary Care Provider [phone] Flor Clark PharmD Unavailable [phone] Reason for Visit * Reason Comments Med Refill Encounter Details Date Type Department Care Team (Late st Contact Info) Description 03/14/2023 Refill [facility] MED[facility]INE [address] [place] [address] Macie Link DO [address] [place] [address] Anxiety; Chronic neck pain Social History Tobacco [...] 10:00 AM EDT Medication Management [facility] MEDICINE [address] [place] [address] Flor Clark PharmD [address] [place] [address] 05/15/2025 9:00 AM EST Clinical Support [facility] MEDICINE [address] [place] [address] April Murrell RN 07/01/2025 1:00 PM EST Office Visit [facility] ADULT DENTAL [address] [place] [address] Eleni Shin [address] [place] [address] documented as of this encounter Visit Diagnoses Diagnosis Anxiety Anxiety state, unspecified Chronic neck pain Cervicalgia documented in this encounter Additional Health Concerns Assessment Noted Time PHQ-9 Depression Total Score: 2 07/06/19 23 9:23 AM EST documented as of this encounter Care Teams Looseleaf Binder Coverer Relationship Specialty Start Date End Date Macie Link DO [address] [place] [address] PCP - General Family Medicine 05/30/18 Flor Clark, PharmD [address] [place] [address] Pharmacist Internal Medicine 08/18/23 documented as of this encounter
--- OUTSIDE RECORDS SUMMARY | 2025-02-12 19:14 | XMS_ITS | Encounter Summary ---
Author Organization [employer] Address 75 [facility] 7t [place] [address] Care Team Providers Care Substation Technician Name Role Phone ArcadioMacie smith DO Primary Care Provider [phone] Flor Clark PharmD Unavailable [phone] Reason for Visit * Reason Comments Med Refill Encounter Details Date Type Department Care Team (Late st Contact Info) Description 07/26/2023 Refill [facility] [address] [place] [address] Catherine Madera MD [address] [place], [place] [phone] Anxiety; Chronic neck pain Social History Tobacco [...] Description 02/21/2025 10:00 AM EDT Medication Management [facility] [address] [place] [address] Flor Clark PharmD [address] [place] [address] 05/15/2025 9:00 AM EST Clinical Support [facility] [address] [place] [address] April Murrell, RN 07/01/2025 1:00 PM EST Office Visit [facility] ADULT DENTAL [address] [place] [address] Eleni Shin [address] [place] [address] documented as of this encounter Visit Diagnoses Diagnosis Anxiety Anxiety state, unspecified Chronic neck pain Cervicalgia documented in this encounter Additional Health Concerns Assessment Noted Time PHQ-9 Depression Total Score: 13 024 9:15 AM EST documented as of this encounter Care Teams Substation Technician Relationship Specialty Start Date End Date Macie Link DO [address] [place] [address] PCP - General Family Medicine 05/30/18 Puia, Jaspreet Ray [address] [place] [address] Pharmacist Internal Medicine 08/18/23 documented as of this encounter
--- OUTSIDE RECORDS SUMMARY | 2025-02-12 19:14 | XMS_ITS | Encounter Summary ---
Author Organization [employer] [facility] Address [address] [place] [address] 7t [place] [address] Care Team Providers Care Heavy Equipment Operator/Paver Name Role Phone Macie Link DO Primary Care Provider [phone] Flor Clark PharmD Unavailable [phone] Reason for Visit * Reason Comments Med Refill Encounter Details Date Type Department Care Team (Late st Contact Info) Description 01/13/2023 Refill [facility] MEDICINE [address] [place] [address] Mcaie Link DO [address] [place] [address] Chronic neck pain Social History Tobacco Use [...] Description 02/21/2025 10:00 AM EDT Medication Management [facility] MEDICINE [address] [place] [address] Puia, Flor, PharmD [address] [place] [address] 05/15/2025 9:00 AM EST Clinical Support [facility] MEDICINE [address] [place], [place] [phone] April Murrell RN 07/01/2025 1:00 PM EST Office Visit [facility] ADULT DENTAL [address] [place], [place] [phone] Eleni Shin [address] [place] [address] documented as of this encounter Visit Diagnoses Diagnosis Chronic neck pain Cervicalgia documented in this encounter Additional Health Concerns Assessment Noted Time PHQ-9 Depression Total Score: 2 07/06/19 23 9:23 AM EST documented as of this encounter Care Teams Heavy Equipment Operator/Paver Relationship Specialty Start Date End Date Macie Link DO [address] [place] [address] PCP - General Family Medicine 05/30/18 Flor Clark PharmD [address] [place] [address] Pharmacist Internal Medicine 08/18/23 documented as of this encounter
== END 2025-02-12 17:04 | disposition home or self-care (01) ==
LOC: HO.HHCLNP 17:03
PROVIDERS: Visit Provider Family Medicine
DX: Z79.891 Long term (current) use of opiate analgesic (principal); Z79.899 Other long term (current) drug therapy
CPT/HCPCS: 36415; 80307

== ENCOUNTER 2025-02-20 10:53 | Outpatient (AMB) | payer OTHER, SELFPAY ==
--- NOTE | 2025-02-20 11:00 | MHC.OFFVIS ---
Vital Signs 02/20/25 11:01 Height 5 ft 6 in Weight 194 lb 0.108 oz BMI 31.3 BP 130/70 Blood Pressure Location Rt brachial Position Sitting Pulse 81 Intake Visit Reasons: 6m follow up Intake Note: 6 month follow-up with ekg feeling good Proced Tech Required: No Can Filling Machine Operator: Can Filling Machine Operator Present Accompanied by: Spouse Allergies No Known Allergies Allergy (Verified 11/08/24 13:29) Medication List - Last Reconciled 02/20/25 by Jose Guy MD albuterol sulfate 90 mcg/actuation (ProAir HFA) 2 puffs PO Q6H PRN amiodarone 100 mg (1/2 x 200 mg) PO QAM amlodipine 10 mg PO DAILY apixaban (Eliquis) 5 mg PO BID atorvastatin 80 mg PO BEDTIME blood sugar diagnostic (FreeStyle Lite Strips) carvedilol 12.5 mg PO BID clonazepam 1 mg PO BID clotrimazole 1% 1 appl topical BID gabapentin 100 mg PO BID insulin aspart U-100 (Novolog FlexPen U-100 Insulin aspart) 1 sliding scale dose subcut TIDAC insulin glargine (Lantus Solostar U-100 Insulin) 34 units subcut DAILY ipratropium bromide 1 spray intranasal TID levothyroxine 112 mcg PO DAILY@0600 lidocaine 5% 1 patch topical DAILY lidocaine-prilocaine 2.5-2.5 % 1 appl topical DAILY PRN loratadine 10 mg PO Q OTHER DAY nitroglycerin 0.4 mg sublingual Q5M PRN omeprazole 40 mg PO BID oxycodone-acetaminophen 10-325 mg 1 tab PO Q4H PRN pen needle, diabetic (Pentips Pen Needle) semaglutide (Ozempic) mg subcut sevelamer carbonate 1,600 mg PO TIDWM zolpidem 10 mg PO BEDTIME HPI Comments Details: Joshua comes for follow-up. He is accompanied by his . He has been doing very well. He underwent dialysis this morning. Has been tolerating medications well. Has no cardiovascular symptoms. Does not walk but he says when he walks usually does not have any symptoms of chest pain or shortness of breath. No orthopnea, PND, leg edema. Has not had any recurrent palpitation irregular heartbeat. No bleeding issues or neurologic events. No lightheadedness, syncope PFSH Medical History History of cardioversion Hx of sleep apnea GERD (gastroesophageal reflux disease) Atrial flutter Colon adenomas Asthma Colon cancer screening End stage renal disease Type 2 diabetes mellitus with unspecified complications Essential hypertension Normocytic anemia Non-cardiac chest pain CAD (coronary artery disease) CVA (cerebral vascular accident) Hypertension Surgical History History of colonoscopy H/O neck surgery Hx of colonoscopy History of bladder surgery Stented coronary artery History of nephrectomy Family History Other No family history of coronary artery disease Social History Household Members: Spouse Housing: Apartment Are you a primary rn urgent care to a significant other at home: No Do you presently have visiting nurse or other home services: Yes Alcohol intake: former Patient Tobacco Use Status: Former Tobacco user Tobacco use type: Cigarette service: No Current occupational status: disabled Review of Systems Const Denies chills, Denies fatigue, Denies fever(s), Denies frequent falls, Denies weakness, Denies weight gain and Denies weight loss ENT Denies dizziness Card Denies chest pain, Denies leg edema, Denies lightheadedness, Denies palpitations, Denies dyspnea, Denies dyspnea on exertion, Denies orthopnea and Denies other (loss of consciousness) Resp Denies cough, Denies dyspnea and Denies dyspnea on exertion GI Denies hematochezia and Denies change in stool character Musc Denies abnormal gait, Denies muscle weakness, Denies numbness, Denies radiating pain into limb and Denies tingling Neuro Denies abnormal gait, Denies dizziness, Denies frequent falls, Denies numbness, Denies tingling and Denies weakness Endo Denies fatigue and Denies palpitations Physical Exam Vital Signs: Last Vital Signs Pulse 81 02/20/25 11:01 BP 130/70 02/20/25 11:01 BMI result Body Mass Index 31.3 Const General: cooperative, healthy appearing, comfortable and no acute distress Orientation/consciousness: patient oriented x3 Neck Neck: Yes normal visual inspection and Yes no JVD Resp Effort & Inspection: normal respiratory effort Auscultation: clear to auscultation bilaterally, no crackles, no rales, no rhonchi and no wheezes Cardio Jugular venous distension: no JVD Rate: regular rate Rhythm: regular rhythm Heart sounds: S1 normal heart sound present, S2 normal heart sound present, no gallops, no murmurs and no rubs Peripheral pulses: Peripheral pulses 2+ throughout GI Inspection: Yes normal to inspection Neuro General: patient oriented x3 Extrem General: Yes normal to inspection, No no pedal edema and No calf tenderness Psych Appearance: grossly normal Mental Status: mental status grossly normal Speech and movement: Normal speech and movement present Office Procedures EKG Details: EKG shows normal sinus rhythm with rightward axis with nonspecific STT wave changes most likely suggestive of repolarization abnormality 15877-[id number], Complete Assessment & Plan Assessment & Plan (1) Atrial flutter: Code(s): I48.92 - Unspecified atrial flutter Category: Medical Plan: Paroxysmal atrial flutter difficult control but has remained controlled on low-dose amiodarone therapy in the last 6 months. Given his age and risk for long-term toxicity will switch his amiodarone to Multaq 400 mg b.i.d.. Need for antiarrhythmic drug therapy was discussed. He understands agrees. Will need EKGs every 3 months. Symptoms associated with atrial flutter were discussed. Possibility of recurrence was discussed. Continue full oral anticoagulation, currently on Eliquis 5 mg b.i.d. on hemodialysis. Continue to monitor CBC. Renal function being followed during dialysis. (2) CAD (coronary artery disease): Code(s): I25.10 - Atherosclerotic heart disease of [place] coronary artery without angina pectoris Category: Medical Qualifiers: Coronary Disease-Associated Artery/Lesion type: [place] artery [place] vs. transplanted heart: [place] heart Associated angina: without angina Qualified Code(s): I25.10 - Atherosclerotic heart disease of [place] coronary artery without angina pectoris Plan: CAD with prior stenting without any symptoms of angina current functional status. Importance of regular physical activity was discussed. Continue current full oral anticoagulation with Eliquis and avoid aspirin therapy to reduce bleeding risk. Continue high-intensity statin therapy with target goal LDL less than 60 mg/dL. Advised lipid panel at least on annual basis. Continue aggressive blood pressure control which is currently well optimized. Goal blood pressure less than 130/84. Continue current therapy. (3) Cardiomyopathy: Code(s): I42.9 - Cardiomyopathy, unspecified Category: Medical Qualifiers: Cardiomyopathy type: unspecified Qualified Code(s): I42.9 - Cardiomyopathy, unspecified Plan: Mild ischemic cardiomyopathy clinically euvolemic and well compensated. Continue dialysis for fluid management. Symptoms of heart failure were discussed. Continue carvedilol for neurohormonal modulation. Follow-up echocardiogram in near future. Will follow up in the clinic in 3 months for EKG in 6 months with me. Thank you for allowing me to partake in his care Orders: Orders CA echo transthoracic complete 1 Month I42.9 - Cardiomyopathy, unspecified Medications: New dronedarone (Multaq) must administer with a meal/food 400 mg PO BID 60 tabs 5RF Discontinued amiodarone Discontinued Reason: Doctor's Order 100 mg (1/2 x 200 mg) PO QAM 90 tabs 3RF I48.92 - Unspecified atrial flutter Coding Level of Care Code Est Pt Level 4 (30958) Complex EM visit Add On G2211 Diagnoses Atrial flutter I48.92 Coronary artery disease involving [place] coronary artery of [place] heart without angina pectoris I25.10 Coronary Disease-Associated Artery/Lesion type: [place] artery [place] vs. transplanted heart: [place] heart Associated angina: without angina Cardiomyopathy, unspecified type I42.9 Cardiomyopathy type: unspecified CPT Codes EKG - CPT: [id number], Complete ([id number])
[2025-02-20 11:01] VITALS: BP 130/70; PULSE 81; BMI 31.3
--- OUTSIDE RECORDS SUMMARY | 2025-02-20 13:56 | XMS_ITS | Encounter Summary ---
Author Organization [facility], Address [address] [place] [address] Phone Care Team Providers Care Electric Wirer Name Role Phone Macie Link DO Primary Care Provider Unava ilable Encounter Details Date Type Department Care Team (Late st Contact Info) Description 07/10/2021 Documentation Only [facility], [address] [place] [address] Romario Ford MD [address] [place] [phone] Social History Tobacco Use Types Packs/Day Years [...] filedocumented in this encounter Care Teams Electric Wirer Relationship Specialty Start Date End Date Macie Link DO PCP - General 04/03/19 documented as of this encounter
--- OUTSIDE RECORDS SUMMARY | 2025-02-20 13:57 | XMS_ITS | Encounter Summary ---
Author Organization [employer] Address 75 [facility] 7t [place] [address] Care Team Providers Care Show Host Or Hostess Name Role Phone Macie Link DO Primary Care Provider [phone] Flor Clark PharmD Unavailable [phone] Reason for Visit * Reason Comments Med Refill Encounter Details Date Type Department Care Team (Late st Contact Info) Description 03/30/2024 Refill [facility] [address] [place] [address] Macie Link DO [address] [place] [address] Seasonal allergic rhinitis, unspecified trigger Social History [...] Description 02/21/2025 10:00 AM EDT Medication Management [facility] [address] [place] [address] Flor Clark PharmD [address] [place] [address] 05/15/2025 9:00 AM EST Clinical Support [facility] [address] [place] [address] April Murrell RN 07/01/2025 1:00 PM EST Office Visit [facility] ADULT DENTAL [address] [place] [address] Eleni Shin [address] [place] [address] documented as of this encounter Goals Goal [...] as directed Result Component No Flor Clark, PharmMariajsoe Note: Use CGM, ensuring sensor is scanned [...] documented as of this encounter Care Teams Show Host Or Hostess Relationship Specialty Start Date End Date Macie Link DO [address] [place] [address] PCP - General Family Medicine 05/30/18 Flor Clark PharmD [address] [place] [address] Pharmacist Internal Medicine 08/18/23 documented as of this encounter
--- OUTSIDE RECORDS SUMMARY | 2025-02-20 13:57 | XMS_ITS | Encounter Summary ---
Author Organization [facility], Address [address] [place] [address] Phone Care Team Providers Care Loans Consultant Name Role Phone Macie Link DO Primary Care Provider Unava ilable Encounter Details Date Type Department Care Team (Late st Contact Info) Description 09/24/2021 Documentation Only [facility], [address] [place] [address] Romario Ford MD [address] [place] [phone] Social History Tobacco Use Types Packs/Day Years [...] on filedocumented in this encounter Care Teams Loans Consultant Relationship Specialty Start Date End Date Macie Link DO PCP - General 04/03/19 documented as of this encounter
--- OUTSIDE RECORDS SUMMARY | 2025-02-20 13:57 | XMS_ITS | Clinical Summary ---
Author Organization [facility], Address [address] [place] [address] Phone Care Team Providers Care Information Clerk Cashier Name Role Phone Macie Link DO Primary [...] 02/06/2025 Treatment [facility], [place] [address] Romario Ford MD End stage renal disease; Dependence on renal dialysis 01/21/2025 Treatment [facility], [place] [place] [address] Romario Ford MD End stage renal disease; Dependence on renal dialysis 01/02/2025 Treatment [facility], [place] [place] [address] Romario Ford MD End stage renal disease; Dependence on renal dialysis 12/24/2024 Treatment [facility], [place] [place] [address] Romario Ford MD End stage renal disease; Dependence on renal dialysis 12/05/2024 Treatment [facility], [place] [address] Romario Ford MD End stage renal disease; [...] (12/21/2023) Hemoglobin 10.1(L) 14.0 - 18.0 g/dL [facility] Hemoglobin x 3 30.3(L) 42.0 - 54.0 % [facility] 12/21/2023 12/22/2023 8:1 6 AM EDT Narrative [employer] [facility] - 12/22/2023 Unless otherwise specified, test(s) performed at: [facility], [address] [place], [place] [id number] UNDERGROUND UTILITY LOCATOR: Jos Curran M.D. For any questions, please call customer service at FREQUENCY:OTHER Resulting Agency Comment Specimen source: Blood Anastacio Nickerson MD LAB BLOOD ORDERABLES Final Re sult Performing Organization Address [facility] de Phone Number [facility] See order comments or contact performing lab Unknown, [place] * (ABNORMAL) SPECIAL CHEMISTRY (11/30/2023) Hemoglobin A1C 7.3(H) 4.8 - 5.9 % [employer] 11/30/2023 12/02/2023 1:1 5 PM EDT Narrative [email or web address] - 12/03/2023 Unless otherwise specified, test(s) performed at: [facility], [address] [place] [id number] UNDERGROUND UTILITY LOCATOR: Jos Curran M.D. For any questions, please call customer service at FREQUENCY:MONTHLY Resulting Agency Comment Specimen source: Blood Anastacio Nickerson MD LAB BLOOD BANK TEST ORDERABLE S Final Result Performing Organization Address [facility]/ZIP Co de Phone Number [facility] See order comments or contact performing lab Unknown, [place] from Last 3 Months or Most Recently Relevant to Health Maintenance Insurance [facility] One Care Dual SNP ([id number]) Medicaid [place] Care Teams Information Clerk Cashier Relationship Specialty Start Date End Date Macie Link DO PCP - General 04/03/19
--- OUTSIDE RECORDS SUMMARY | 2025-02-20 13:57 | XMS_ITS | Encounter Summary ---
Author Organization [employer] Address 75 [facility] 7t [place] [address] Care Team Providers Care Parts Control Clerk Name Role Phone FaribaMacie Primary Care Provider [phone] Flor Clark PharmD Unavailable [phone] Encounter Details Date Type Department Care Team (Latest Contact Info) Description 02/19/2025 Travel Social History Tobacco Use Types Packs/Day [...] 02/21/2025 10:00 AM EDT Medication Management [facility] [address] [place] [address] Flor Clark PharmD [address] [place] [address] 05/15/2025 9:00 AM EST Clinical Support [facility] [address] [place] [address] April Murrell RN 07/01/2025 1:00 PM EST Office Visit [facility]ULT [facility] [address] [place] [address] Eleni Shin [address] [place] [address] documented as of this encounter Goals Goal [...] documented as of this encounter Care Teams Parts Control Clerk Relationship Specialty Start Date End Date Macie Link DO [address] [place] [address] PCP - General Family Medicine 05/30/18 Flor Clark PharmD [address] [place] [address] Pharmacist Internal Medicine 08/18/23 documented as of this encounter
--- OUTSIDE RECORDS SUMMARY | 2025-02-20 13:57 | XMS_ITS | Encounter Summary ---
Author Organization [facility], Address [address] [place] [address] Phone Care Team Providers Care Cytopathology Technologist Name Role Phone Macie Link DO Primary Care Provider Unava ilable Encounter Details Date Type Department Care Team (Late st Contact Info) Description 10/23/2021 Documentation Only [facility], [address] [place] [address] Romario Ford MD [address] [place] [phone] Social History Tobacco Use Types Packs/Day Years [...]
--- OUTSIDE RECORDS SUMMARY | 2025-02-20 13:57 | XMS_ITS | Encounter Summary ---
Author Organization [employer] Address [address] [place] [address] 7t [place] [address] Care Team Providers Care Product Support Technician Name Role Phone FaribaMacie Primary Care Provider Flor Clark PharmD Unavailable Encounter Details Date Type Department Care Team (Late st Contact Info) Description 06/16/[address] [facility] [address] [place] [address] Macie Stiles LPN Social History Tobacco Use [...] 02/21/2025 10:00 AM EDT Medication Management [facility] [address] [place] [address] PuiaKaylynsa, PharmD 230 [place] [address] 05/15/2025 9:00 AM EST Clinical [address] [facility] [address] [place] [address] April Murrell RN 07/01/2025 1:00 PM EST Office Visit [facility] AD[facility] DENTAL [address] [place] [address] Eleni Shin 230 [place] [address] documented as of this encounter Visit Diagnoses Not on filedocumented in this encounter Care Teams Product Support Technician Relationship Specialty Start Date End Date Macie Link DO 230 [place] [address] PCP - General Family Medicine 05/30/18 Flor Clark PharmD [address] [place] [address] Pharmacist Internal Medicine 08/18/23 documented as of this encounter
--- OUTSIDE RECORDS SUMMARY | 2025-02-20 13:57 | XMS_ITS | Encounter Summary ---
Author Organization [facility], Address [address] [place] [address] Phone Care Team Providers Care Framing And Hanging Name Role Phone Macie Link DO Primary Care Provider Unava ilable Encounter Details Date Type Department Care Team (Late st Contact Info) Description 09/06/2021 Documentation Only [facility], [address] [place] [address] Romario Ford MD [address] [place] [phone] Social History Tobacco Use Types Packs/Day Years [...] on filedocumented in this encounter Care Teams Framing And Hanging Relationship Specialty Start Date End Date Macie Link DO PCP - General 04/03/19 documented as of this encounter
--- OUTSIDE RECORDS SUMMARY | 2025-02-20 13:57 | XMS_ITS | Encounter Summary ---
Author Organization [employer] Address [address] [facility] 7t [place] [address] Care Team Providers Care Commercial Housekeeper Name Role Phone TiffanyMacie hamilton Primary Care Provider Flor Clark PharmD Unavailable [phone] Encounter Details Date Type Department Care Team (Late st Contact Info) Description 07/30/2022 Orders Only [facility] MED[facility] 230 [place] [address] Cassie Jeronimo MD 230 [place] [address] Chronic neck pain (Primary Dx) Social History [...] Description 02/21/2025 10:00 AM EDT Medication Management [facility] [address] [place] [address] Flor Clark PharmD 230 [place] [address] 05/15/2025 9:00 AM EST Clinical Support [facility] [address] [place] [address] April Murrell, PADILLA 07/01/2025 1:00 PM EST Office Visit [facility] ADULT DENTAL [address] [place] [address] Eleni Shin [address] [place] [address] documented as of this encounter Visit Diagnoses Diagnosis Chronic neck pain- Primary Cervicalgia documented in this encounter Additional Health Concerns Assessment Noted Time PHQ-9 Depression Total Score: 2 07/06/19 23 9:23 AM EST documented as of this encounter Care Teams Commercial Housekeeper Relationship Specialty Start Date End Date Macie Link DO [address] [place] [address] PCP - General Family Medicine 05/30/18 Flor Clark PharmD [address] [place] [address] Pharmacist Internal Medicine 08/18/23 documented as of this encounter
--- OUTSIDE RECORDS SUMMARY | 2025-02-20 13:57 | XMS_ITS | Encounter Summary ---
Author Organization [employer] [facility] Address [address] [place] [address] 7t [place] [address] Care Team Providers Care Inspecting Machine Adjuster Name Role Phone Macie Link DO Primary Care Provider PuFlor quinones PharmD Unavailable Encounter Details Date Type Department Care Team (Late st Contact Info) Description 05/18/2022 Orders Only [facility] [address] [place] [address] Mariella Diallo LPN Social History Tobacco Use [...] 10:00 AM EDT Medication Management [facility] MEDICINE [address] [place] [address] PuiaGeovaniFlor, PharmD [address] [place] [address] 05/15/2025 9:00 AM EST Clinical Support [facility] MEDICINE [address] [place] [address] April Murrell RN 07/01/2025 1:00 PM EST Office Visit [facility] ADULT DENTAL [address] [place] [address] Eleni Shin 230 [place] [address] documented as of this encounter Visit Diagnoses Not on filedocumented in this encounter Care Teams Inspecting Machine Adjuster Relationship Specialty Start Date End Date Macie Link DO 230 [place] [address] PCP - General Family Medicine 05/30/18 Flor Clark PharmD [address] [place] [address] Pharmacist Internal Medicine 08/18/23 documented as of this encounter
--- OUTSIDE RECORDS SUMMARY | 2025-02-20 13:57 | XMS_ITS | Encounter Summary ---
Author Organization [employer] [facility] Address [address] [place] [address] 7t [place] [address] Care Team Providers Care Shopfitter Name Role Phone Macie Link DO Primary Care Provider [phone] Flor Clark PharmD Unavailable Encounter Details Date Type Department Care Team (Late Contact Info) Description 07/21/2022 Telephone [facility] MEDICINE [address] [place] [address] Macie Link DO [address] [place] [address] Social History Tobacco Use Types Packs/Day Years [...] 02/21/2025 10:00 AM EDT Medication Management [facility] MEDICINE [address] [place] [address] Flor Clark PharmD 230 [place] [address] 05/15/2025 9:00 AM EST Clinical Support [facility] MED[facility]INE [address] [place] [address] April Murrell RN 07/01/2025 1:00 PM EST Office Visit [facility] ADULT DENTAL [address] [place], [place] [phone] Eleni Shin 230 [place] [address] documented as of this encounter Visit Diagnoses Not on filedocumented in this encounter Additional Health Concerns Assessment Noted Time PHQ-9 Depression Total Score: 2 07/06/19 23 9:23 AM EST documented as of this encounter Care Teams Shopfitter Relationship Specialty Start Date End Date Macie Link DO [address] [place] [address] PCP - General Family Medicine 05/30/18 Flor Clark, Jaspreet [address] [place] [address] Pharmacist Internal Medicine 08/18/23 documented as of this encounter
--- OUTSIDE RECORDS SUMMARY | 2025-02-20 13:57 | XMS_ITS | Encounter Summary ---
Author Organization [employer] [facility] Address [address] [place] [address] 7t [place] [address] Care Team Providers Care Supervisor Waterproofing Name Role Phone Macie Link DO Primary Care Provider Flor Clark PharmD Unavailable [phone] Encounter Details Date Type Department Care Team (Late st Contact Info) Description 06/10/2022 Telephone [facility] MEDICINE [address] [place] [address] Macie Link DO [address] [place] [address] Social History Tobacco Use Types Packs/Day Years [...] [facility] [address] [place] [address] Flor Clark, PharmD [address] [place] [address] 05/15/2025 9:00 AM EST Clinical Support [facility] MEDICINE [address] [place] [address] April Murrell RN 07/01/2025 1:00 PM EST Office Visit [facility] ADULT DENTAL 230 [place] [address] Eleni Shin [address] [place] [address] documented as of this encounter Visit Diagnoses Not on filedocumented in this encounter Care Teams Supervisor Waterproofing Relationship Specialty Start Date End Date Macie Link DO [address] [place] [address] PCP - General Family Medicine 05/30/18 Flor Clark PharmD [address] [place] [address] Pharmacist Internal Medicine 08/18/23 documented as of this encounter
--- OUTSIDE RECORDS SUMMARY | 2025-02-20 13:57 | XMS_ITS | Clinical Summary ---
Author Organization [employer] Address [address] [facility] 7t [place] [address] Care Team Providers Care Automotive Artist Name Role Phone TiffanyMacie hamilton Primary Care Provider Flor Clark PharmD Unavailable Allergies No known [...] IJ) 75 mcg. 024 Active Continuous Glucose Fourth Hand (FreeStyle Gurmeet 2 Manitou) deviceIndicatio ns:Type 2 diabetes mellitus with chronic kidney disease on chronic dialysis, with long-term current use of insulin ([facility]) Use for continuous glucose monitoring per package [...] complication, with long-term current use of insulin ([facility]) TEST BLOOD SUGAR 3 TIMES PER DAY 100 each 025 Active Alcohol Swabs (Easy Touch Alcohol Prep Medium) 70 % padsIndications :Type 2 diabetes mellitus with other specified complication, with long-term current use of insulin ([facility]/HCC) Use up to 4 daily as directed 100 each 025 Active glucose blood (FreeStyle Precision Andrés Test) test stripIndication s:Type 2 diabetes mellitus with other specified complication, with long-term current use of insulin ([facility]/HCC) Use to test blood sugar up to [...] dialysis, with long-term current use of insulin ([facility]) INJECT 20 UNITS SUBCUTANEOUSLY ONCE DAILY 15 mL Active gabapentin (Neurontin) 100 MG capsule Take 100 mg by mouth 2 times daily. Active BD Pen Needle Katerina Ultrafine 32G X 4 MM miscIndications :Type 2 diabetes mellitus with other specified complication, with long-term current use of insulin ([facility]) USE DIRECTED FOUR TIMES DAILY 100 each [...] start before February 12, 2025. 168 tablet 025 2024 Active clotrimazole (Lotrimin) 1 % cream APPLY TOPICALLY TO AFFECTED AREA(S) TWICE DAILY IN THE MORNING AND IN THE EVENING 60 g 025 2024 Discontinued zolpidem (Ambien) 10 MG tabletIndicatio ns:Anxiety TAKE 1 TABLET BY MOUTH AT BEDTIME NEEDED FOR SLEEP 28 tablet 2024 Discontinued clonazePAM (KlonoPIN) 1 MG tabletIndicatio [...] disease, or end stage renal disease 05/08/2024 watermaster (current) use of insulin 05/08/2024 Type 2 [...] in intervention, [facility], and Comply with [...] Encounters Date Type Department Care Team Description 02/19/2025 Travel 02/12/2025 9:00 AM EDT Clinical Support [address] [address] April Murrell RN Long-term current use of opiate analgesic (Primary Dx); Long-term current use of benzodiazepine 02/12/2025 Travel 02/11/[address] [address] Macie Link DO Call Back Request 02/06/2025 Telephone [facility] [address] [place] [address] Macie Link DO telephone call 02/05/[address] [facility] [address] [facility] [place] [address] Macie Link, Anxiety; Chronic neck pain 01/30/[address] [facility] [address] [facility] [place] [address] Macie Link, Appointment Request 01/23/[address] [facility] [address] [facility] [place] [address] Macie Link, Chronic GERD 01/18/[address] [facility] [address] [facility] [place] [address] Macie Link, Chronic neck pain 01/11/[address] [facility] [address] [facility] [place] [address] Macie Link, DO Med Refill 01/10/[address] [facility] [address] [place] [address] Macie Link, Chronic neck pain 01/10/[address] [facility] [address] [place] [address] Macie Link, Anxiety 01/10/[address] [facility] [address] [place] [address] Sobia Crooks MD Anxiety 01/10/[address] [facility] [address] [place] [address] Macie Link, Asthma, unspecified asthma severity, unspecified whether complicated, unspecified whether persistent 01/08/2025 9:00 AM EDT Office Visit [facility] ADULT DENTAL [address] [facility] [place] [address] AleidaEleni Advanced periodontitis (Primary Dx); Dental calculus; Dental plaque 01/02/2025 2:00 PM EDT Office Visit [facility] ADULT DENT[facility] [address] [place] [address] AleidaFitzEleni Advanced periodontitis (Primary Dx); Dental calculus 12/28/2024 1:30 PM EDT Office Visit [facility] [address] [place] [address] Tip, Dulce, OD Diabetes type 2, no ocular involvement (CMS/HCC) (Primary Dx); Drusen of macula, left; Epiretinal membrane (ERM) of both eyes; Pseudophakia of both eyes; Presbyopia 12/28/2024 Travel 12/18/2024 9:30 AM EDT Office Visit [facility] ADULT DENTAL [address] [place] [address] Justin Anne, DMD 12/18/[address] [facility] [address] [place] [address] Macie Link, Durable Medical Equipment 12/17/2024 Telephone [facility] [address] [place] [address] Macie Link DO Med Refill 12/17/[address] [facility] [address] [place] [address] Macie Link DO Chronic neck pain 12/17/[address] 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 [address] [place] [address] Macie Link DO Chronic neck pain 12/13/[address] [facility] [address] [place] [address] Macie Link DO Chronic neck pain 12/12/[address] [facility] [address] [place] [address] Macie Link DO Anxiety 12/12/[address] [facility] [address] [place] [address] Macie Link DO telephone call 12/11/[address] [facility] [address] [place] [address] Macie Link, Anxiety; Chronic neck pain; Type 2 diabetes mellitus with other specified complication, with long-term current use of insulin (CMS/HCC) 12/10/[address] [facility] [address] [place] [address] Macie Link, 12/07/[address] [facility] [address] [facility] [place] [address] Justin Anne, DMD cx waiting period 12/02/[address] [facility] [address] [facility] [place] [address] Macie Link, 12/02/[address] [facility] [address] [facility] [place] [address] [place], Netta, SENIOR HEALTH CONSULTANT Type 2 diabetes mellitus with other specified complication, with long-term current use of insulin ([facility]) 11/26/2024 Results Follow-Up [facility] [address] [facility] [place] [address] Flor Clark, PharmD Fructosamine 11/20/2024 Travel from Last 3 Months Immunizations Immunization [...] 02/21/2025 10:00 AM EDT Medication Management [facility] [address] [place] [address] Flor Clark, PharmD [address] [place] [address] 05/15/2025 9:00 AM EST Clinical Support [facility] [address] [place] [address] April Murrell, RN 07/01/2025 1:00 PM EST Office Visit [facility] ADULT DENTAL [address] [place] [address] Eleni Shin [address] [place] [address] Health Maintenance Due Date Last Done Comments [...] Procedure Name Priority Date/Time Associated Diagnosis Comments DRUG TOXICOLOGY MONITORING BASE PANEL, WITH CONFIRMATION, ORAL FLUID Routine 02/12/2025 9:15 AM EDT Long-term current use of opiate analgesic Long-term current use of benzodiazepine BITEWINGS - 2 RADIOGRAPHIC IMAGES Routine 01/08/2025 [...] - PORCELAIN/CERAMIC Routine 12/18/2024 9:30 AM EDT PROPHYLAXIS - ADULT Routine 11/14/2024 2 :00 PM EDT Advanced periodontitis Dental calculus Dental plaque Gingival bleeding Acute gingival inflammation HEMOGLOBIN A1C Routine 09/14/2024 10:51 AM EDT Type 2 diabetes mellitus with chronic kidney disease on chronic dialysis, with long-term current use of insulin ([facility]) LIPID PANEL, STANDARD Routine 09/14/2024 10:51 AM EDT Type 2 diabetes mellitus with chronic kidney disease on chronic dialysis, with long-term current use of insulin ([facility]) INTRAORAL - COMPLETE SERIES OF RADIOGRAPHIC IMAGES Routine 03/19/2024 3:00 PM EDT PERIODIC ORAL EVALUATION - ESTABLISHED PATIENT Routine 03/19/2024 3:00 PM EDT HM COLONOSCOPY Routine 02/23/2022 7:37 AM EDT ZZZ HISTORICAL HEPATITIS C AB W/REFL TO HCV RNA, QN, PCR Routine 12/09/2020 10:36 AM EDT from Last 3 Months or Most Recently Relevant to Health Maintenance Results * Drug Toxicology Monitoring Base Panel, w/Confirmation, Oral Fluid (02/12/2025 9:15 AM EDT) Drug Tox Panel with Confirmation SEE NOTE [facility] Comment: Test Ordered Result Cutoff DRUG TOX MONITORING BASE PANEL,W/CONF,ORAL FLUIDAmphetamines Negative 10 ng/mLBenzodiazepines Positive 0.50 ng/mL Alprazolam Negative 0.50 ng/mL Chlordiazepoxide Negative 0.50 ng/mL Clonazepam Negative 0.50 ng/mL Aminoclonazepam 2.30 H 0.50 ng/mL Diazepam Negative 0.50 ng/mL Flunitrazepam Negative 0.50 ng/mL Flurazepam Negative 0.50 ng/mL Lorazepam Negative 0.50 ng/mL Midazolam Negative 0.50 ng/mL Nordiazepam Negative 0.50 ng/mL Oxazepam Negative 0.50 ng/mL Temazepam Negative 0.50 ng/mL Triazolam Negative 0.50 ng/mLCocaine Negative 5.0 ng/mLMarijuana Negative 2.5 ng/mLMethadone Negative 5.0 ng/mLBuprenorphine Negative 0.10 ng/mLFentanyl Negative 0.10 ng/mLHeroin Metabolite Negative 1.0 ng/mLOpiates Positive 2.5 ng/mL Codeine Negative 2.5 ng/mL Dihydrocodeine Negative 2.5 ng/mL Hydrocodone Negative 2.5 ng/mL Hydromorphone Negative 2.5 ng/mL Morphine Negative 2.5 ng/mL Norhydrocodone Negative 2.5 ng/mL Noroxycodone 2.9 H 2.5 ng/mL (SEE NOTE 1) Oxycodone 62.5 H 2.5 ng/mL Oxymorphone Negative 2.5 ng/mLTapentadol Negative 5.0 ng/mLTramadol Negative 5.0 ng/mL (SEE NOTE 2) Note 1 Noroxycodone is a metabolite of oxycodone.Note 2 For additional information, please refer tohttp://education.CollegeSolved/faq/WBK734 (This linkis being provided for informational/ educational purposesonly.) This drug testing is for medical treatment only.Analysis was performed as non-forensic testing and theseresults should be used only by healthcare providers torender diagnosis or treatment, or to monitor progress ofmedical conditions. For assistance with interpreting thesedrug results, please contact a [employer] ToxicologySpecialist: [phone] ( ), M-F, 8am-6pmEST. These tests were developed and their analyticalperformance characteristics have been determined by [employer]. They have not been cleared or approved by theA. These assays have been validated pursuant to the CLIAregulations and are used for clinical p urposes.PERFORMING SITE:[facility], [address] [place] [address] Tipple Boss: PATRICKW. DHARA MD,PHD, CLIA: [id number] Oral Fluid Oral cavity structure / Unknown 02/12/2025 9:15 AM EDT 02/12/2025 5:09 PM EDT us Macie Link DO LAB BODY FLUIDS AND STOOLS O RDERABLES Final Result [facility] [address] [place] [address] [phone] * OCT, Retina - OU - Both [...] necessary. Will monitor at his next exam. us Dulce Morenofo OD OPHTH TOMOGRAPHY Edited Resul t - Final * (ABNORMAL) Hemoglobin A1c (09/14/2024 10:51 AM EDT) Hemoglobin A1c 6.3(H) <6.0 % [facility] Comment:Hemoglobin A1C Refer ence Range Adults: 4.8 - 6.0 % Non diabetic: < 6.0 % Goal: < 7.0 %Additional Action Suggested: > 8.0 %Note: Hemoglobin A1c results are invalid for patients with abnormal amounts of HbF. Blood transfusions may impact the HbA1c concentration in the patient sample. Estimated Average Glucose 134 mg/dL [facility] Comment:eAG = Estimated ave rage glucose which is %A1C expressed asaverage glucose, using the formula of the X3P-WkoytyaLwlvuuk Glucose study (ADAG), Diabetes Care, Vol.31,#8,Dec. 2007 Blood Venous blood specimen / Unknown 09/14/2024 10:51 AM EDT 09/14/2024 1:08 PM EDT Macie Link DO LAB BLOOD ORDERABLES Final R esult Performing Organization Address City/State/[facility] Co de Phone Number [facility] [address] [place], [place] [phone] * (ABNORMAL) Lipid Panel, Standard (09/14/2024 10:51 AM EDT) Triglycerides 321(H) <150 mg/dL [facility] Comment:Desirable Triglyceri de: less than 150 mg/dLBorderline High Triglyceride 150-199 mg/dLHigh Triglyceride: 200-499 mg/dLVery High Triglyceride: greater than or equal to 5OO mg/dL Cholesterol 98 <200 mg/dL [facility] Comment:Desirable Cholestero l: less than 200 mg/dLBorderline High Cholesterol: 200-239 mg/dLHigh Cholesterol: greater than 239 mg/dL LDL Cholesterol Calculated 7 <100 mg/dL [facility] Comment:Desirable LDL: less than 100 mg/dLNear Optimal/Above Optimal LDL: 110- 129 mg/dLBorderline High LDL: 130-159 mg/dLHigh LDL: 160-189 mg/dLVery High LDL: greater than or equal to 190 mg/dL HDL Cholesterol 27(L) >40 mg/dL [facility] Comment:Desirable HDL: great er than 40 mg/dL Note: This HDL assay may give artificially low results in patients with liver disease. Blood Venous blood specimen / Unknown 09/14/2024 10:51 AM EDT 09/14/2024 8:17 PM EDT Macie Link DO LAB BLOOD ORDERABLES Final R esult [facility] [address] [place] [address] [phone] * Hm Colonoscopy (02/23/2022 7:37 AM EDT) us Historical Provider HEALTH MAINTENANCE Final Result * HEPATITIS C AB W/REFL TO HCV RNA, QN, PCR (12/09/2020 10:36 AM EDT) HEPATITIS C ANTIBODY NON-REACT [facility] NON-REACT [facility] INDEX 0.01 <1.00 [facility] Comment: HCV antibody was non-reactive. There is no laboratory evidence of HCV infection. In most cases, no further action is required. However, if recent HCV exposure is suspected, a test for HCV RNA (test code 21326) is suggested. For additional information please refer to http://education.Hydrostor/faq/PLM96u7 (This link is being provided for informational/ educational purposes only.) 12/09/2020 10:3 6 AM EDT Macie Link DO HISTORICAL/NON ORDERABLE LAB S Final Result Performing Organization Address City/[facility] Co de Phone Number [facility] [address] [place] [address], from Last 3 Months or Most Recently Relevant to Health Maintenance Insurance [employer] (HMO D-SNP) [place]O [place] [id number] DENTAL - [facility] [address] [place] [phone] Care Teams Automotive Artist Relationship Specialty Start Date End Date Macie Link DO [address] [place] [address] PCP - General Family Medicine 05/30/18 Flor Clark PharmD [address] [place] [address] Pharmacist Internal Medicine 08/18/23
--- OUTSIDE RECORDS SUMMARY | 2025-02-20 13:57 | XMS_ITS | Encounter Summary ---
Author Organization [facility] Address [address] [place] [address] Care Team Providers Care Flight Engineer Inspector Name Role Phone Ref, Has No Pcp Or Primary Care Provider Unavail able Encounter Details Date Type Department Care Team (Late st Contact Info) Description 06/27/[address] [facility] Interventional Radiology [address] [place] [address] Amanda Sweet MD [address] [place] [address] Social History Tobacco Use Types Packs/Day Years [...] Description 03/19/2025 9:00 AM EDT Follow-Up [facility] Renal Transplant [address] [place] [address] Louie Pablo MD [address] [place] [address] 03/19/2025 9:30 AM EDT Social Work [facility] Renal Transplant [address] [place] [address] Imani Livingston LICSW [address] [place] [address] 04/25/2025 2:00 PM EST Appointment [facility] CT [address] [place] [address] 05/09/2025 11:00 AM EST Follow-Up [facility] Building Cancer Clinic South 5th Floor [address] [place] [address] Pierce Au MD [address] [place] [address] documented as of this encounter Visit Diagnoses Not on filedocumented in this encounter Care Teams Flight Engineer Inspector Relationship Specialty Start Date End Date Ref, Has No Pcp Or DO NOT EDIT THIS RECORD VIA PROVIDER ON THE FLY PCP - General Appliances Sample Maker 03/15/24 documented as of this encounter
--- OUTSIDE RECORDS SUMMARY | 2025-02-20 13:57 | XMS_ITS | Encounter Summary ---
Author Organization [facility], Address [address] [place] [address] Phone Care Team Providers Care Semiconductor Processor Name Role Phone Macie Link DO Primary Care Provider Unava ilable Encounter Details Date Type Department Care Team (Late st Contact Info) Description 09/04/2021 Documentation Only [facility], [address] [place] [address] Romario Ford MD [address] [place] [phone] Social History Tobacco Use Types Packs/Day Years [...] on filedocumented in this encounter Care Teams Semiconductor Processor Relationship Specialty Start Date End Date Macie Link DO PCP - General 04/03/19 documented as of this encounter
--- OUTSIDE RECORDS SUMMARY | 2025-02-20 13:57 | XMS_ITS | Encounter Summary ---
Author Organization [facility] Address [address] [place] [address] 7t [place] [address] Care Team Providers Care Player Development Executive Name Role Phone Macie Link DO Primary Care Provider Flor Clark PharmD Unavailable [phone] Encounter Details Date Type Department Care Team (Late st Contact Info) Description 07/27/2022 Abstract [facility] MEDICINE [address] [place] [address] Macie Link DO [address] [place] [address] Social History Tobacco Use Types Packs/Day Years [...] Description 02/21/2025 10:00 AM EDT Medication Management [facility] MEDICINE [address] [place] [address] Flor Clark PharmD [address] [place] [address] 05/15/2025 9:00 AM EST Clinical Support [facility] MEDICINE [address] [place] [address] April Murrell RN 07/01/2025 1:00 PM EST Office Visit [facility] ADULT DENTAL [address] [place], [place] [phone] Eleni Shin [address] [place] [address] documented as of this encounter Visit Diagnoses Not on filedocumented in this encounter Additional Health Concerns Assessment Noted Time PHQ-9 Depression Total Score: 2 07/06/19 23 9:23 AM EST documented as of this encounter Care Teams Player Development Executive Relationship Specialty Start Date End Date Macie Link DO [address] [place] [address] PCP - General Family Medicine 05/30/18 Folr Clark, Jaspreet [address] [place] [address] Pharmacist Internal Medicine 08/18/23 documented as of this encounter
--- OUTSIDE RECORDS SUMMARY | 2025-02-20 13:57 | XMS_ITS | Encounter Summary ---
Author Organization [employer] Address [address] [facility] 7t [place] [address] Care Team Providers Care Fire Support Specialist Name Role Phone Macie Link DO Primary Care Provider [phone] Flor Clark PharmD Unavailable [phone] Reason for Visit * Reason Comments Med Refill Encounter Details Date Type Department Care Team (Late st Contact Info) Description 05/04/2024 Refill [facility] MEDICINE [address] [place] [address] Macie Link DO [address] [place] [address] Hypothyroidism, unspecified type; Chronic GERD Social History [...] 10:00 AM EDT Medication Management [facility] MEDICINE [address] [place] [address] Flor Clark, PharmD [address] [place] [address] 05/15/2025 9:00 AM EST Clinical Support [facility] MEDICINE [address] [place] [address] April Murrell RN 07/01/2025 1:00 PM EST Office Visit [facility] ADULT DENTAL [address] [place] [address] Eleni Shin [address] [place] [address] documented as of this encounter Goals Goal [...] as of this encounter Care Teams Fire Support Specialist Relationship Specialty Start Date End Date Macie Link DO [address] [place], [place] [phone] PCP - General Family Medicine 05/30/18 Flor Clark PharmD [address] [place] [address] Pharmacist Internal Medicine 08/18/23 documented as of this encounter
--- OUTSIDE RECORDS SUMMARY | 2025-02-20 13:57 | XMS_ITS | Encounter Summary ---
Author Organization [employer] Address [address] [place] [address] 7t [place] [address] Care Team Providers Care Glass Blowing Lathe Operator Name Role Phone FaribaMacie Primary Care Provider Flor Clark PharmD Unavailable Encounter Details Date Type Department Care Team (Late st Contact Info) Description 05/25/2022 Orders Only [facility] CHC MED & PEDS [address] [place] [address] Macie Stiles LPN Social History Tobacco Use [...] Description 02/21/2025 10:00 AM EDT Medication Management [facility] MEDICINE [address] [place] [address] PuiaKaylynsa, PharmD [address] [place] [address] 05/15/2025 9:00 AM EST Clinical Support [facility] MEDICINE [address] [place] [address] April Murrell RN 07/01/2025 1:00 PM EST Office Visit [facility] ADULT DENTAL [address] [place] [address] Eleni Shin [address] [place] [address] documented as of this encounter Visit Diagnoses Not on filedocumented in this encounter Care Teams Glass Blowing Lathe Operator Relationship Specialty Start Date End Date Macie Link DO [address] [place] [address] PCP - General Family Medicine 05/30/18 Flor Clark PharmD [address] [place] [address] Pharmacist Internal Medicine 08/18/23 documented as of this encounter
--- OUTSIDE RECORDS SUMMARY | 2025-02-20 13:57 | XMS_ITS | Encounter Summary ---
Author Organization [facility], Address [address] [place] [address] Phone Care Team Providers Care Health Claims Examiner Name Role Phone Macie Link DO Primary Care Provider Unava ilable Encounter Details Date Type Department Care Team (Late st Contact Info) Description 09/01/2021 Documentation Only [facility], [address] [place] [phone] Estefania Sung PA [address] [place] [phone] Social History Tobacco Use Types Packs/Day Years [...] on filedocumented in this encounter Care Teams Health Claims Examiner Relationship Specialty Start Date End Date Macie Link DO PCP - General 04/03/19 documented as of this encounter
--- OUTSIDE RECORDS SUMMARY | 2025-02-20 13:57 | XMS_ITS ---
Author Organization [facility] Address [address] [place] [address] Care Team Providers Care Display Specialist Name Role Phone Ref, Has No Pcp [...] TotalDLP 1,501 mGy 1,501 mGy 0 mGy [id number] 21.5 mSv 21.5 mSv 0 mSv CTDIvol Max 18.2 mGy 18.2 mGy 0 mGy CTDIvol Min 14.8 mGy 14.8 mGy 0 mGy
--- OUTSIDE RECORDS SUMMARY | 2025-02-20 13:57 | XMS_ITS | Encounter Summary ---
Author Organization [facility], Address [address] [place] [address] Phone Care Team Providers Care Light Rail Train Operator Name Role Phone Macie Link DO Primary Care Provider Unava ilable Encounter Details Date Type Department Care Team (Late st Contact Info) Description 09/06/2021 Documentation Only [facility], [address] [place] [address] Romario Ford MD [address] [place] [phone] Social History Tobacco Use Types Packs/Day Years [...] on filedocumented in this encounter Care Teams Light Rail Train Operator Relationship Specialty Start Date End Date Macie Link DO PCP - General 04/03/19 documented as of this encounter
--- OUTSIDE RECORDS SUMMARY | 2025-02-20 13:57 | XMS_ITS | Encounter Summary ---
Author Organization [facility], Address [address] [place] [address] Phone Care Team Providers Care House Superintendent Name Role Phone Macie Link DO Primary Care Provider Unava ilable Encounter Details Date Type Department Care Team (Late st Contact Info) Description 09/21/2021 Documentation Only [facility], [address] [place] [address] Romario Ford MD [address] [place] [phone] Social History Tobacco Use Types Packs/Day Years [...] on filedocumented in this encounter Care Teams House Superintendent Relationship Specialty Start Date End Date Macie Link DO PCP - General 04/03/19 documented as of this encounter
--- OUTSIDE RECORDS SUMMARY | 2025-02-20 13:57 | XMS_ITS | Encounter Summary ---
Author Organization [facility], Address [address] [place] [address] Phone Care Team Providers Care Bi Solutions Architect Name Role Phone Macie Link DO Primary Care Provider Unava ilable Reason for Visit * Reason Comments Med Refill Encounter Details Date Type Department Care Team (Late st Contact Info) Description 09/08/2022 Refill [facility], [address] [place] [address] Romario Ford MD [address] [facility] [address] [place] [phone] Social History Tobacco Use Types Packs/Day Years [...] on filedocumented in this encounter Care Teams Bi Solutions Architect Relationship Specialty Start Date End Date Macie Link DO PCP - General 04/03/19 documented as of this encounter
--- OUTSIDE RECORDS SUMMARY | 2025-02-20 13:57 | XMS_ITS | Encounter Summary ---
Author Organization [employer] Address [address] [facility] 7t [place] [address] Care Team Providers Care Granite Setter Name Role Phone Macie Link DO Primary Care Provider [phone] Flor Clark PharmD Unavailable [phone] Reason for Visit * Reason Onset Date Comments Call Back Request 02/11/2025 Encounter Details Date Type Department Care Team ([facility] st Contact Info) Description 02/11/2025 Telephone [facility] MEDICINE [address] [place] [address] Macie Link DO [address] [place] [address] Call Back Request Social History Tobacco Use [...] 9:41 AM EDT Noted. TC placed to [facility] pharmacy who reports the patient last p/u lidocaine patches on 10/16/24 for a 30 day supply. RN was informed in September, the patients insurance was [employer] however now his insurance is [facility] which does NOT cover the medication. RN was informed [facility] does not require any patches and they require a PA. TC placed to patient [phone] however patient did not answer and VM is full; RN unable to leaveVM. TC placed to [phone], spoke to patient and informed of above [...] it is in process of a PA. Garment Form Assembler advised the patched can take 7-14 business days. Garment Form Assembler then asked pt how the patches were being used, due to pt not having anymore. Pt stated he used one every 12 hours. Garment Form Assembler advised that the patches were 12 hours withthe patches on and 12 hours with the patches off. Pt is requesting a call back from nurse. Contact pt at [phone]. documented in this encounter Plan of Treatment Upcoming Encounters Date Type Department Care Team (Late st Contact Info) Description 02/21/2025 10:00 AM EDT Medication Management [facility] MEDICINE [address] [place] [address] Flor Clark PharmD [address] [place] [address] 05/15/2025 9:00 AM EST Clinical Support [facility] MEDICINE [address] [place] [address] April Murrell RN 07/01/2025 1:00 PM EST Office Visit [facility] ADULT DENTAL [address] [place] [address] Eleni Shin [address] [place] [address] documented as of this encounter Goals Goal [...] documented as of this encounter Care Teams Granite Setter Relationship Specialty Start Date End Date Macie Link DO [address] [place] [address] PCP - General Family Medicine 05/30/18 Flor Clark PharmD [address] [place] [address] Pharmacist Internal Medicine 08/18/23 documented as of this encounter
--- OUTSIDE RECORDS SUMMARY | 2025-02-20 13:57 | XMS_ITS | Encounter Summary ---
Author Organization [employer] Address [address] [facility] 7t [place] [address] Care Team Providers Care Lime Slaker Name Role Phone TiffanyMacie hamilton Primary Care Provider Flor Clark PharmD Unavailable Encounter Details Date Type Department Care Team ([facility] st Contact Info) Description 08/13/2022 Orders Only [facility] CHC MED & PEDS [address] [place], [place] [phone] Cayla Sandoval MD [address] [place] [address] Type 2 diabetes mellitus with chronic kidney disease on chronic dialysis, with long-term current use of insulin ([facility]) (Primary Dx) Social History Tobacco [...] Description 02/21/2025 10:00 AM EDT Medication Management [facility] MEDICINE [address] [place] [address] Flor Clark PharmD [address] [place] [address] 05/15/2025 9:00 AM EST Clinical Support [facility] MEDICINE [address] [place] [address] April Murrell RN 07/01/2025 1:00 PM EST Office Visit [facility] ADULT DENTAL [address] [place] [address] Eleni Shin [address] [place] [address] documented as of this encounter Visit Diagnoses Diagnosis Type 2 diabetes mellitus with chronic kidney disease on chronic dialysis, with long-term current use of insulin ([facility])- Primary documented in this encounter Additional Health Concerns Assessment Noted Time PHQ-9 Depression Total Score: 2 07/06/19 23 9:23 AM EST documented as of this encounter Care Teams Lime Slaker Relationship Specialty Start Date End Date Macie Link DO [address] [place] [address] PCP - General Family Medicine 05/30/18 Flor Clark PharmD [address] [place] [address] Pharmacist Internal Medicine 08/18/23 documented as of this encounter
--- OUTSIDE RECORDS SUMMARY | 2025-02-20 13:57 | XMS_ITS | Encounter Summary ---
Author Organization [facility] Address [address] [place] [address] Care Team Providers Care Real Estate Instructor Name Role Phone Ref, Has No Pcp Or Primary Care Provider Unavail able Encounter Details Date Type Department Care Team (Late st Contact Info) Description 06/28/2024 Orders Only [facility] Nuclear Medicine [address] [place] [address] Kandice Pacheco MD [address] [place] [address] Social History Tobacco Use Types Packs/Day Years [...] Description 03/19/2025 9:00 AM EDT Follow-Up [facility] Renal Transplant [address] [place] [address] Louie Pablo MD [address] [place] [address] 03/19/2025 9:30 AM EDT Social Work [facility] Renal Transplant [address] [place] [address] Imani Livingston LICSW [address] [place] [address] 04/25/2025 2:00 PM EST Appointment [facility] [address] [place] [address] 05/09/2025 11:00 AM EST Follow-Up [facility] Building Cancer Clinic South 5th Floor [address] [place] [address] Pierce Au MD [address] [place] [address] documented as of this encounter Visit Diagnoses Not on filedocumented in this encounter Care Teams Real Estate Instructor Relationship Specialty Start Date End Date Ref, Has No Pcp Or DO NOT EDIT THIS RECORD VIA PROVIDER ON THE FLY PCP - General Associate Professor Of Art 03/15/24 documented as of this encounter
--- OUTSIDE RECORDS SUMMARY | 2025-02-20 13:57 | XMS_ITS | Encounter Summary ---
Author Organization [employer] Address [address] [facility] 7t [place] [address] Care Team Providers Care Pumping Supervisor Name Role Phone Macie Link DO Primary Care Provider [phone] Flor Clark PharmD Unavailable Reason for Visit * Reason Comments Med Refill Encounter Details Date Type Department Care Team (Late st Contact Info) Description 02/06/2024 Refill [facility] MEDICINE [address] [place] [address] Macie Link DO [address] [place] [address] Chronic neck pain; Anxiety Social History Tobacco [...] EDT Medication Management [facility] MEDICINE [address] [place] [address] Flor Clark, PharmD [address] [place] [address] 05/15/2025 9:00 AM EST Clinical Support [facility] MEDICINE [address] [place] [address] April Murrell RN 07/01/2025 1:00 PM EST Office Visit [facility] ADULT DENTAL [address] [place] [address] Eleni Shin [address] [place] [address] documented as of this encounter Goals Goal [...] documented as of this encounter Care Teams Pumping Supervisor Relationship Specialty Start Date End Date Macie Link DO [address] [place] [address] PCP - General Family Medicine 05/30/18 Flor Clark PharmD [address] [place] [address] Pharmacist Internal Medicine 08/18/23 documented as of this encounter
--- OUTSIDE RECORDS SUMMARY | 2025-02-20 13:57 | XMS_ITS | Encounter Summary ---
Author Organization [employer] Address [address] [facility] 7t [place] [address] Care Team Providers Care Director Trade Name Role Phone Macie Link DO Primary Care Provider Flor Clark PharmD Unavailable Reason for Visit * Reason Onset Date Comments Durable Medical Equipment 05/10/2022 Encounter Details Date Type Department Care Team (Late st Contact Info) Description 05/10/2022 Telephone [facility] MEDICINE [address] [place] [address] Macie Link DO [address] [place] [address] Durable Medical Equipment Social History Tobacco Use [...] 1:45 PM EST Tc from jesus from [facility] requesting status on Glucerna . States pt has tried reaching L&C and no response . Also caller is requesting a adjustable position bed. Best contact # [phone] documented in this encounter Plan of Treatment Upcoming Encounters Date Type Department Care Team (Late st Contact Info) Description 02/21/2025 10:00 AM EDT Medication Management [facility] MEDICINE [address] [place] [address] Flor Clark PharmD [address] [place] [address] 05/15/2025 9:00 AM EST Clinical Support [facility] MEDICINE [address] [place] [address] April Murrell, RN 07/01/2025 1:00 PM EST Office Visit [facility] ADULT DENTAL [address] [place] [address] Fitz Shinaris [address] [place] [address] documented as of this encounter Visit Diagnoses Not on filedocumented in this encounter Care Teams Director Trade Relationship Specialty Start Date End Date Macie Link DO [address] [place] [address] PCP - General Family Medicine 05/30/18 Flor Clark PharmD [address] [place] [address] Pharmacist Internal Medicine 08/18/23 documented as of this encounter
--- OUTSIDE RECORDS SUMMARY | 2025-02-20 13:57 | XMS_ITS | Encounter Summary ---
Author Organization [facility], Address [address] [place] [address] Phone Care Team Providers Care It Programmer Analyst Name Role Phone Macie Link DO Primary Care Provider Unava ilable Encounter Details Date Type Department Care Team (Late st Contact Info) Description 09/24/2021 Documentation Only [facility], [address] [place] [address] Romario Ford MD [address] [place] [phone] Social History Tobacco Use Types Packs/Day Years [...] on filedocumented in this encounter Care Teams It Programmer Analyst Relationship Specialty Start Date End Date Macie Link DO PCP - General 04/03/19 documented as of this encounter
--- OUTSIDE RECORDS SUMMARY | 2025-02-20 13:57 | XMS_ITS | Encounter Summary ---
Author Organization [employer] Address [address] [facility] 7t [place] [address] Care Team Providers Care Central Sterilization Technician Name Role Phone Macie Link DO Primary Care Provider Flor Clark PharmD Unavailable Reason for Visit * Reason Comments Med Refill Encounter Details Date Type Department Care Team ([facility] st Contact Info) Description 03/29/2024 Refill [facility] MEDICINE [address] [place] [address] Macie Link DO [address] [place] [address] Chronic neck pain Social History Tobacco Use [...] EDT Medication Management [facility] MEDICINE [address] [place] [address] Flor Clark, PharmD [address] [place] [address] 05/15/2025 9:00 AM EST Clinical Support [facility] MEDICINE [address] [place] [phone] April Murrell RN 07/01/2025 1:00 PM EST Office Visit [facility] ADULT DENTAL [address] [place] [address] Eleni Shin [address] [place] [address] documented as of this encounter Goals Goal [...] as of this encounter Care Teams Central Sterilization Technician Relationship Specialty Start Date End Date Macie Link DO [address] [place] [address] PCP - General Family Medicine 05/30/18 Flor Clark PharmD [address] [place] [address] Pharmacist Internal Medicine 08/18/23 documented as of this encounter
--- OUTSIDE RECORDS SUMMARY | 2025-02-20 13:57 | XMS_ITS | Encounter Summary ---
Author Organization [employer] [facility] Address [address] [place] [address] 7t [place] [address] Care Team Providers Care Ski Patrol Director Name Role Phone Macie Link DO Primary Care Provider PuFlor quinones PharmD Unavailable Reason for Visit * Reason Comments Med Refill Encounter Details Date Type Department Care Team (Late st Contact Info) Description 08/13/2022 Refill [facility] MEDICINE [address] [place] [address] Macie Link DO [address] [place] [address] Anxiety Social History Tobacco Use Types Packs/Day [...] Medication Management [facility] MEDICINE [address] [place] [address] Puia, Flor, PharmD [address] [place] [address] 05/15/2025 9:00 AM EST Clinical Support [facility] MEDICINE [address] [place] [address] April Murrell, RN 07/01/2025 1:00 PM EST Office Visit [facility] ADULT DENTAL [address] [place], [place] [phone] Eleni Shin [address] [place] [address] documented as of this encounter Visit Diagnoses Diagnosis Anxiety Anxiety state, unspecified documented in this encounter Additional Health Concerns Assessment Noted Time PHQ-9 Depression Total Score: 2 07/06/19 23 9:23 AM EST documented as of this encounter Care Teams Ski Patrol Director Relationship Specialty Start Date End Date Macie Link DO [address] [place] [address] PCP - General Family Medicine 05/30/18 Flor Clark PharmD [address] [place] [address] Pharmacist Internal Medicine 08/18/23 documented as of this encounter
--- OUTSIDE RECORDS SUMMARY | 2025-02-20 13:57 | XMS_ITS | Encounter Summary ---
Author Organization [employer] Address 75 [facility] 7t [place] [address] Care Team Providers Care Edi Programmer Analyst Name Role Phone Macie Link DO Primary Care Provider +1- [phone] Flor Clark PharmD Unavailable [phone] Reason for Visit * Reason Comments Med Refill Encounter Details Date Type Department Care Team (Late st Contact Info) Description 03/05/2024 Refill [facility] [address] [place] [address] Macie Link DO 230 [place] [address] Seasonal allergic rhinitis, unspecified trigger Social History [...] Medication Management [facility] [address] [place] [address] Flor Clark PharmD 230 [place] [address] 05/15/2025 9:00 AM EST Clinical Support [facility] [address] [place] [address] April Murrell RN 07/01/2025 1:00 PM EST Office Visit [facility] ADULT DENTAL [address] [place] [address] Eleni Shin [address] [place] [address] documented as of this encounter Goals Goal [...] documented as of this encounter Care Teams Edi Programmer Analyst Relationship Specialty Start Date End Date Macie Link DO 230 [place] [address] PCP - General Family Medicine 05/30/18 Flor Clark PharmD 230 [place] [address] Pharmacist Internal Medicine 08/18/23 documented as of this encounter
--- OUTSIDE RECORDS SUMMARY | 2025-02-20 13:57 | XMS_ITS | Encounter Summary ---
Author Organization [facility], Address [address] [place] [address] Phone Care Team Providers Care Research Advisor Name Role Phone Macie Link DO Primary Care Provider Unava ilable Encounter Details Date Type Department Care Team (Late st Contact Info) Description 07/30/2021 Documentation Only [facility], [address] [place] [address] Romario Ford MD [address] [place] [id number] Social History Tobacco Use Types Packs/Day Years [...] filedocumented in this encounter Care Teams Research Advisor Relationship Specialty Start Date End Date Macie Link DO PCP - General 04/03/19 documented as of this encounter
--- OUTSIDE RECORDS SUMMARY | 2025-02-20 13:58 | XMS_ITS | Encounter Summary ---
Author Organization [facility], Address [address] [place] [address] Phone Care Team Providers Care Support Group Manager Name Role Phone Macie Link DO Primary Care Provider Unava ilable Encounter Details Date Type Department Care Team (Late st Contact Info) Description 03/16/2024 Documentation Only [facility], [address] [place] [address] Jimena Gibson SC [address] [place] [address] Social History Tobacco Use Types [...] on filedocumented in this encounter Care Teams Support Group Manager Relationship Specialty Start Date End Date Macie Link DO PCP - General 04/03/19 documented as of this encounter
--- OUTSIDE RECORDS SUMMARY | 2025-02-20 13:58 | XMS_ITS | Encounter Summary ---
Author Organization [employer] Address 75 [facility] 7t [place] [address] Care Team Providers Care Feller Machine Operator Name Role Phone Macie Link DO Primary Care Provider [phone]- [phone] Flor Clark PharmD Unavailable [phone] Reason for Visit * Reason Comments Med Refill Encounter Details Date Type Department Care Team ([facility] st Contact Info) Description 05/24/2024 Refill [facility] MEDICINE [address] [place] [address] Macie Link DO 230 [place] [address] Anxiety Social History Tobacco Use Types Packs/Day [...] Management [facility] MED[facility]INE [address] [place] [address] Flor Clark, PharmD [address] [place] [address] 05/15/2025 9:00 AM EST Clinical Support [facility] [address] [place] [address] April Murrell RN 07/01/2025 1:00 PM EST Office Visit [facility] ADULT DENTAL [address] [place] [address] Eleni Shin [address] [place] [address] documented as of this encounter Goals Goal [...] documented as of this encounter Care Teams Feller Machine Operator Relationship Specialty Start Date End Date Macie Link DO 230 [place] [address] PCP - General Family Medicine 05/30/18 Flor Clark PharmD [address] [place] [address] Pharmacist Internal Medicine 08/18/23 documented as of this encounter
--- OUTSIDE RECORDS SUMMARY | 2025-02-20 13:58 | XMS_ITS | Encounter Summary ---
Author Organization [employer] Address 75 [facility] 7t [place] [address] Care Team Providers Care Cinder Worker Name Role Phone ArcadioMacie smith DO Primary Care Provider [phone] [phone] Flor Clark PharmD Unavailable [phone] Reason for Visit * Reason Comments Med Refill Encounter Details Date Type Department Care Team (Late st Contact Info) Description 06/25/2024 Refill [facility] MED[facility]INE 230 [place] [address] Catherine Madera MD 230 [place], [place] [phone] Anxiety; Chronic neck pain Social History Tobacco [...] 02/21/2025 10:00 AM EDT Medication Management [facility] MEDICINE [address] [place] [address] Flor Clark, PharmD 230 [place] [address] 05/15/2025 9:00 AM EST Clinical Support [facility] MED[facility]INE 230 [place] [address] April Murrell RN 07/01/2025 1:00 PM EST Office Visit [facility] ADULT DENTAL 230 [place] [address] Eleni Shin 230 [place] [address] documented as of this encounter Goals Goal [...] documented as of this encounter Care Teams Cinder Worker Relationship Specialty Start Date End Date Macie Link DO 230 [place] [address] PCP - General Family Medicine 05/30/18 Flor Clark PharmD 230 [place] [address] Pharmacist Internal Medicine 08/18/23 documented as of this encounter
--- OUTSIDE RECORDS SUMMARY | 2025-02-20 13:58 | XMS_ITS | Encounter Summary ---
Author Organization [employer] Address 75 [facility] 7t [place] [address] Care Team Providers Care Frozen Pie Maker Name Role Phone Jane Linkfer Primary Care Provider [phone]- [phone] Flor Clark PharmD Unavailable [phone] Encounter Details Date Type Department Care Team (Late st Contact Info) Description 09/09/2023 Orders Only [facility] MEDICINE 230 [place] [address] ProviderProsper MD Social History Tobacco Use Types [...] Description 02/21/2025 10:00 AM EDT Medication Management [facility] MED[facility]INE 230 [place] [address] Flor Clark PharmD 230 [place] [address] 05/15/2025 9:00 AM EST Clinical Support [facility] MED[facility]INE [address] [place] [address] April Murrell RN 07/01/2025 1:00 PM EST Office Visit [facility] ADULT DENTAL [address] [place] [address] Eleni Shin [address] [place] [address] documented as of this encounter Goals Goal [...] documented as of this encounter Care Teams Frozen Pie Maker Relationship Specialty Start Date End Date Macie Link DO 230 [place] [address] PCP - General Family Medicine 05/30/18 Flor Clark PharmD 230 [place] [address] Pharmacist Internal Medicine 08/18/23 documented as of this encounter
--- OUTSIDE RECORDS SUMMARY | 2025-02-20 13:58 | XMS_ITS | Encounter Summary ---
Author Organization [employer] Address 75 [facility] 7t [place] [address] Care Team Providers Care Outsewer Name Role Phone ArcadioMacie smith DO Primary Care Provider [phone] [phone] Flor Clark PharmD Unavailable [phone] Reason for Visit * Reason Comments Med Refill Encounter Details Date Type Department Care Team (Late st Contact Info) Description 07/26/2023 Refill [facility] 230 [place] [address] Catherine Madera MD 230 [place] [address] Anxiety; Chronic neck pain Social History Tobacco [...] Description 02/21/2025 10:00 AM EDT Medication Management [facility] [address] [place] [address] Flor Clark PharmD 230 [place] [address] 05/15/2025 9:00 AM EST Clinical Support [facility] [address] [place] [address] April Murrell, RN 07/01/2025 1:00 PM EST Office Visit [facility] ADULT DENTAL [address] [place] [address] Eleni Shin [address] [place] [address] documented as of this encounter Visit Diagnoses Diagnosis Anxiety Anxiety state, unspecified Chronic neck pain Cervicalgia documented in this encounter Additional Health Concerns Assessment Noted Time PHQ-9 Depression Total Score: 13 024 9:15 AM EST documented as of this encounter Care Teams Outsewer Relationship Specialty Start Date End Date Macie Link DO [address] [place] [address] PCP - General Family Medicine 05/30/18 Puia, Jaspreet Ray [address] [place] [address] Pharmacist Internal Medicine 08/18/23 documented as of this encounter
--- OUTSIDE RECORDS SUMMARY | 2025-02-20 13:58 | XMS_ITS | Encounter Summary ---
Author Organization [facility], Address [address] [place] [address] Phone Care Team Providers Care Dietary Aide Teacher Name Role Phone Macie Link DO Primary Care Provider Unava ilable Reason for Visit * Reason Comments Med Refill Encounter Details Date Type Department Care Team (Late st Contact Info) Description 07/15/2022 Refill [facility], [address] [place] [address] Romario Ford MD [address] [facility] [place] [phone] Social History Tobacco Use Types Packs/Day Years [...] on filedocumented in this encounter Care Teams Dietary Aide Teacher Relationship Specialty Start Date End Date Macie Link DO PCP - General 04/03/19 documented as of this encounter
--- OUTSIDE RECORDS SUMMARY | 2025-02-20 13:58 | XMS_ITS | Encounter Summary ---
Author Organization [employer] [facility] Address [address] [place] [address] 7t [place] [address] Care Team Providers Care Lamina Searcher Name Role Phone Macie Link DO Primary Care Provider PuFlor quinones PharmD Unavailable [phone] Reason for Visit * Reason Comments Med Refill Encounter Details Date Type Department Care Team (Late st Contact Info) Description 12/31/2022 Refill [facility] MEDICINE [address] [place] [address] Macie Link DO [address] [place] [address] Anxiety Social History Tobacco Use Types Packs/Day [...] Medication Management [facility] MEDICINE [address] [place] [address] Puia, Flor, PharmD 230 [place] [address] 05/15/2025 9:00 AM EST Clinical Support [facility] MEDICINE 230 [place] [address] April Murrell, RN 07/01/2025 1:00 PM EST Office Visit [facility] ADULT DENTAL 230 [place], [place] [phone] Eleni Shin [address] [place] [address] documented as of this encounter Visit Diagnoses Diagnosis Anxiety Anxiety state, unspecified documented in this encounter Additional Health Concerns Assessment Noted Time PHQ-9 Depression Total Score: 2 07/06/19 23 9:23 AM EST documented as of this encounter Care Teams Lamina Searcher Relationship Specialty Start Date End Date Macie Link DO [address] [place] [address] PCP - General Family Medicine 05/30/18 Flor Clark PharmD [address] [place] [address] Pharmacist Internal Medicine 08/18/23 documented as of this encounter
--- OUTSIDE RECORDS SUMMARY | 2025-02-20 13:58 | XMS_ITS | Encounter Summary ---
Author Organization [facility] Address [address] [place] [address] Care Team Providers Care Manager Client Service Name Role Phone Ref, Has No Pcp Or Primary Care Provider Unavail able Encounter Details Date Type Department Care Team (Late st Contact Info) Description 09/25/2024 Orders Only [facility] Interventional Radiology [address] [place] [address] Cami Garland PA [address] [place] [address] Social History Tobacco Use Types Packs/Day Years [...] Info) Description 03/19/2025 9:00 AM EDT Follow-Up [facility] Renal Transplant [address] [place] [address] Louie Pablo MD [address] [place] [address] 03/19/2025 9:30 AM EDT Social Work [facility] Renal Transplant [address] [place] [address] Imani Livingston, LORY [address] [place] [address] 04/25/2025 2:00 PM EST Appointment [facility] [address] [place] [address] 05/09/2025 11:00 AM EST Follow-Up [facility] 5th Floor [address] [place] [address] Pierce Au MD [address] [place] [address] documented as of this encounter Visit Diagnoses Not on filedocumented in this encounter Care Teams Manager Client Service Relationship Specialty Start Date End Date Ref, Has No Pcp Or DO NOT EDIT THIS RECORD VIA PROVIDER ON THE FLY PCP - General Psychiatric Aides Teacher 03/15/24 documented as of this encounter
--- OUTSIDE RECORDS SUMMARY | 2025-02-20 13:58 | XMS_ITS | Encounter Summary ---
Author Organization [employer] Address 75 [facility] 7t [place] [address] Care Team Providers Care Special Service Officer Name Role Phone FaribaCarissaMacie Primary Care Provider Flor Clark PharmD Unavailable Encounter Details Date Type Department Care Team ([facility] st Contact Info) Description 07/25/2024 Telephone [facility] ADULT DENTAL [address] [place] [address] Justin Anne, DMD [address] [place] [address] Social History Tobacco Use Types Packs/Day Years [...] 10:00 AM EDT Medication Management [facility] [address] [place] [address] Flor Clark, PharmD [address] [place] [address] 05/15/2025 9:00 AM EST Clinical Support [facility] [address] [place] [address] April Murrell RN 07/01/2025 1:00 PM EST Office Visit [facility] ADULT DENTAL [address] [place] [address] Eleni Shin [address] [place] [address] documented as of this encounter Goals Goal [...] documented as of this encounter Care Teams Special Service Officer Relationship Specialty Start Date End Date Macie Link DO [address] [place] [address] PCP - General Family Medicine 05/30/18 Flor Clark PharmD [address] [place] [address] Pharmacist Internal Medicine 08/18/23 documented as of this encounter
--- OUTSIDE RECORDS SUMMARY | 2025-02-20 13:58 | XMS_ITS | Encounter Summary ---
Author Organization [employer] Address 75 [facility] 7t [place] [address] Care Team Providers Care Tea Bag Machine Tender Name Role Phone ArcadioMacie smith DO Primary Care Provider [phone] [phone] Flor Clark PharmD Unavailable [phone] Reason for Visit * Reason Comments Med Refill Encounter Details Date Type Department Care Team (Late st Contact Info) Description 05/24/2024 Refill [facility] MEDICINE [address] [place] [address] Sobia Crooks MD 230 [place] [address] Chronic neck pain Social History Tobacco Use [...] 10:00 AM EDT Medication Management [facility] MEDICINE [address] [place] [address] Flor Clark, PharmD 230 [place] [address] 05/15/2025 9:00 AM EST Clinical Support [facility] MEDICINE [address] [place] [address] April Murrell RN 07/01/2025 1:00 PM EST Office Visit [facility] ADULT DENTAL [address] [place] [address] Eleni Shin [address] [place] [address] documented as of this encounter Goals Goal [...] documented as of this encounter Care Teams Tea Bag Machine Tender Relationship Specialty Start Date End Date Macie Link DO 230 [place] [address] PCP - General Family Medicine 05/30/18 Flor Clark PharmD 230 [place] [address] Pharmacist Internal Medicine 08/18/23 documented as of this encounter
--- OUTSIDE RECORDS SUMMARY | 2025-02-20 13:58 | XMS_ITS | Encounter Summary ---
Author Organization [employer] Address 75 [facility] 7t [place] [address] Care Team Providers Care Hospital Ward Clerk Name Role Phone Macie Link DO Primary Care Provider [phone]- [phone] Flor Clark PharmD Unavailable [phone] Reason for Visit * Reason Comments Med Refill Encounter Details Date Type Department Care Team (Late st Contact Info) Description 12/13/2023 Refill [facility] MEDICINE [address] [place] [address] Macie Link DO 230 [place] [address] Anxiety; Chronic neck pain Social History Tobacco [...] Description 02/21/2025 10:00 AM EDT Medication Management [facility] MEDICINE [address] [place] [address] Flor Clark, PharmD 230 [place] [address] 05/15/2025 9:00 AM EST Clinical Support [facility] MEDICINE [address] [place] [address] April Murrell RN 07/01/2025 1:00 PM EST Office Visit [facility] ADULT DENTAL [address] [place] [address] Eleni Shin [address] [place] [address] documented as of this encounter Goals Goal [...] as of this encounter Care Teams Hospital Ward Clerk Relationship Specialty Start Date End Date Macie Link DO 230 [place] [address] PCP - General Family Medicine 05/30/18 Flor Clark PharmD 230 [place] [address] Pharmacist Internal Medicine 08/18/23 documented as of this encounter
--- OUTSIDE RECORDS SUMMARY | 2025-02-20 13:58 | XMS_ITS | Encounter Summary ---
Author Organization [employer] Address 75 [facility] 7t [place] [address] Care Team Providers Care Training And Quality Manager Name Role Phone Macie Link DO Primary Care Provider [phone] Flor Clark PharmD Unavailable [phone] Reason for Visit * Reason Comments Med Refill Encounter Details Date Type Department Care Team (Late st Contact Info) Description 03/08/2023 Refill [facility] MEDICINE [address] [place] [address] Macie Link DO 230 [place] [address] Anxiety; Chronic neck pain Social History Tobacco [...] EDT Medication Management [facility] MEDICINE [address] [place] [address] Flor Clark PharmD 230 [place] [address] 05/15/2025 9:00 AM EST Clinical Support [facility] MEDICINE [address] [place] [address] April Murrell RN 07/01/2025 1:00 PM EST Office Visit [facility] ADULT DENTAL [address] [place] [address] Eleni Shin [address] [place] [address] documented as of this encounter Visit Diagnoses Diagnosis Anxiety Anxiety state, unspecified Chronic neck pain Cervicalgia documented in this encounter Additional Health Concerns Assessment Noted Time PHQ-9 Depression Total Score: 2 07/06/19 23 9:23 AM EST documented as of this encounter Care Teams Training And Quality Manager Relationship Specialty Start Date End Date Macie Link DO [address] [place] [address] PCP - General Family Medicine 05/30/18 Flor Clark, PharmD [address] [place] [address] Pharmacist Internal Medicine 08/18/23 documented as of this encounter
--- OUTSIDE RECORDS SUMMARY | 2025-02-20 13:58 | XMS_ITS | Encounter Summary ---
Author Organization [facility], Address [address] [place] [address] Phone Care Team Providers Care Medical Case Manager Name Role Phone Macie Link DO Primary Care Provider Unava ilable Reason for Visit * Reason Comments Med Refill Encounter Details Date Type Department Care Team (Late st Contact Info) Description 07/23/2022 Refill [facility], [address] [place] [address] Romario Ford MD [address] [facility] [place] [phone] Social History Tobacco Use Types Packs/Day Years [...] on filedocumented in this encounter Care Teams Medical Case Manager Relationship Specialty Start Date End Date Macie Link DO PCP - General 04/03/19 documented as of this encounter
--- OUTSIDE RECORDS SUMMARY | 2025-02-20 13:58 | XMS_ITS | Encounter Summary ---
Author Organization [employer] [facility] Address [address] [place] [address] 7[place] [address] Care Team Providers Care Flakeboard Line Tender Name Role Phone Macie Link DO Primary Care Provider Flor Clark PharmD Unavailable Reason for Visit * Reason Comments Med Refill Encounter Details Date Type Department Care Team (Late st Contact Info) Description 01/13/2023 Refill [facility] MEDICINE [address] [place] [address] Macie Link DO 230 [place] [address] Chronic neck pain Social History Tobacco Use [...] [facility] MEDICINE [address] [place] [address] Puia, Flor, PharmD 230 [place] [address] 05/15/2025 9:00 AM EST Clinical Support [facility] MEDICINE 230 [place], [place] [phone] April Murrell RN 07/01/2025 1:00 PM EST Office Visit [facility] ADULT DENTAL 230 [place], [place] [phone] Eleni Shin 230 [place] [address] documented as of this encounter Visit Diagnoses Diagnosis Chronic neck pain Cervicalgia documented in this encounter Additional Health Concerns Assessment Noted Time PHQ-9 Depression Total Score: 2 07/06/19 23 9:23 AM EST documented as of this encounter Care Teams Flakeboard Line Tender Relationship Specialty Start Date End Date Macie Link DO [address] [place] [address] PCP - General Family Medicine 05/30/18 Flor Clark PharmD [address] [place] [address] Pharmacist Internal Medicine 08/18/23 documented as of this encounter
--- OUTSIDE RECORDS SUMMARY | 2025-02-20 13:58 | XMS_ITS | Encounter Summary ---
Author Organization [facility], Address [address] [place] [address] Phone Care Team Providers Care Bible Teacher Name Role Phone Macie Link DO Primary Care Provider Unava ilable Encounter Details Date Type Department Care Team (Late st Contact Info) Description 07/19/2022 Documentation Only [facility], [address] [place] [address] Joya [place], [place] [address] [place] [address] Social History Tobacco Use Types [...] on filedocumented in this encounter Care Teams Bible Teacher Relationship Specialty Start Date End Date Macie Link DO PCP - General 04/03/19 documented as of this encounter
--- OUTSIDE RECORDS SUMMARY | 2025-02-20 13:58 | XMS_ITS | Encounter Summary ---
Author Organization [employer] Address 75 [facility] 7t [place] [address] Care Team Providers Care Sprayer Hand Name Role Phone Macie Link DO Primary Care Provider Flor Clark PharmD Unavailable [phone] Encounter Details Date Type Department Care Team ([facility] st Contact Info) Description 10/10/[address] [facility] MEDICINE [address] [place], [place] [phone] Macie Link DO [address] [place] [address] Social History Tobacco Use Types Packs/Day Years [...] Description 02/21/2025 10:00 AM EDT Medication Management [facility] MED[facility]INE [address] [place] [address] Flor Clark, PharmD [address] [place] [address] 05/15/2025 9:00 AM EST Clinical Support [facility] MEDICINE [address] [place] [address] April Murrell RN 07/01/2025 1:00 PM EST Office Visit [facility] ADULT DENTAL [address] [place] [address] Eleni Shin [address] [place] [address] documented as of this encounter Goals Goal [...] documented as of this encounter Care Teams Sprayer Hand Relationship Specialty Start Date End Date Macie Link DO 230 [place] [address] PCP - General Family Medicine 05/30/18 Flor Clark PharmD 230 [place] [address] Pharmacist Internal Medicine 08/18/23 documented as of this encounter
--- OUTSIDE RECORDS SUMMARY | 2025-02-20 13:58 | XMS_ITS | Encounter Summary ---
Author Organization [employer] Address 75 [facility] 7t [place] [address] Care Team Providers Care Career Center Director Name Role Phone Macie Link DO Primary Care Provider Flor Clark PharmD Unavailable [phone] Reason for Visit * Reason Comments Med Refill Encounter Details Date Type Department Care Team (Late st Contact Info) Description 12/14/2024 Refill [facility] MEDICINE [address] [place] [address] Macie Link DO [address] [place] [address] Chronic neck pain Social History Tobacco Use [...] Medication Management [facility] MEDICINE [address] [place] [address] Flor Clark PharmD [address] [place] [address] 05/15/2025 9:00 AM EST Clinical Support [facility] MEDICINE [address] [place] [address] April Murrell RN 07/01/2025 1:00 PM EST Office Visit [facility] ADULT DENTAL [address] [place] [address] Eleni Shin [address] [place] [address] documented as of this encounter Goals Goal [...] as of this encounter Care Teams Career Center Director Relationship Specialty Start Date End Date Macie Link DO [address] [place] [address] PCP - General Family Medicine 05/30/18 Flor Clark PharmD [address] [place] [address] Pharmacist Internal Medicine 08/18/23 documented as of this encounter
--- OUTSIDE RECORDS SUMMARY | 2025-02-20 13:58 | XMS_ITS | Encounter Summary ---
Author Organization [employer] Address 75 [facility] 7t [place] [address] Care Team Providers Care Telecommunications Administrator Name Role Phone Macie Link DO Primary Care Provider [phone] Flor Clark PharmD Unavailable [phone] Reason for Visit * Reason Comments Med Refill Encounter Details Date Type Department Care Team (Late st Contact Info) Description 11/05/2023 Refill [facility] MEDICINE [address] [place] [address] Macie Link DO [address] [place] [address] Asthma, unspecified asthma severity, unspecified whether complicated, [...] 02/21/2025 10:00 AM EDT Medication Management [facility] MEDICINE [address] [place] [address] Flor Clark, PharmD [address] [place] [address] 05/15/2025 9:00 AM EST Clinical Support [facility] MEDICINE [address] [place] [address] April Murrell RN 07/01/2025 1:00 PM EST Office Visit [facility] ADULT DENTAL [address] [place] [address] Eleni Shin [address] [place] [address] documented as of this encounter Goals Goal [...] documented as of this encounter Care Teams Telecommunications Administrator Relationship Specialty Start Date End Date Macie Link DO [address] [place] [address] PCP - General Family Medicine 05/30/18 Flor Clark PharmD [address] [place] [address] Pharmacist Internal Medicine 08/18/23 documented as of this encounter
--- OUTSIDE RECORDS SUMMARY | 2025-02-20 13:58 | XMS_ITS | Encounter Summary ---
Author Organization [employer] Address 75 [facility] 7t [place] [address] Care Team Providers Care Industrial Order Clerk Name Role Phone Macie Link DO Primary Care Provider Flor Clark PharmD Unavailable Encounter Details Date Type Department Care Team ([facility] st Contact Info) Description 06/14/2023 Telephone [facility] MEDICINE [address] [place], [place] [phone] Macie Link DO [address] [place] [address] Social History Tobacco Use Types Packs/Day Years [...] EDT Medication Management [facility] MEDICINE [address] [place] [address] Flor Clark PharmD [address] [place] [address] 05/15/2025 9:00 AM EST Clinical Support [facility] MEDICINE [address] [place] [address] April Murrell RN 07/01/2025 1:00 PM EST Office Visit [facility] ADULT DENTAL [address] [place] [address] Eleni Shin [address] [place] [address] documented as of this encounter Visit Diagnoses Not on filedocumented in this encounter Additional Health Concerns Assessment Noted Time PHQ-9 Depression Total Score: 13 024 9:15 AM EST documented as of this encounter Care Teams Industrial Order Clerk Relationship Specialty Start Date End Date Macie Link DO [address] [place] [address] PCP - General Family Medicine 05/30/18 Flor Clark PharmD [address] [place] [address] Pharmacist Internal Medicine 08/18/23 documented as of this encounter
--- OUTSIDE RECORDS SUMMARY | 2025-02-20 13:58 | XMS_ITS | Encounter Summary ---
Author Organization [employer] Address 75 [place] [facility] 7t [place] [address] Care Team Providers Care Fitness Director Name Role Phone Macie Link DO Primary Care Provider Flor Clark PharmD Unavailable Reason for Visit * Reason Comments Med Refill Encounter Details Date Type Department Care Team (Late st Contact Info) Description 12/13/2024 Refill [facility] MEDICINE [address] [place] [address] Macie Link DO [address] [place] [address] Chronic neck pain Social History Tobacco Use [...] 10:00 AM EDT Medication Management [facility] MEDICINE [address] [place] [address] Flor Clark PharmD [address] [place] [address] 05/15/2025 9:00 AM EST Clinical Support [facility] MEDICINE [address] [place] [address] April Murrell RN 07/01/2025 1:00 PM EST Office Visit [facility] ADULT DENTAL [address] [place] [address] Eleni Shin [address] [place] [address] documented as of this encounter Goals Goal [...] documented as of this encounter Care Teams Fitness Director Relationship Specialty Start Date End Date Macie Link DO [address] [place] [address] PCP - General Family Medicine 05/30/18 Flor Clark PharmD [address] [place] [address] Pharmacist Internal Medicine 08/18/23 documented as of this encounter
--- OUTSIDE RECORDS SUMMARY | 2025-02-20 13:58 | XMS_ITS | Encounter Summary ---
Author Organization [employer] Address 75 [facility] 7t [place] [address] Care Team Providers Care Program Rep Name Role Phone FaribaMacie Primary Care Provider [phone] Flor Clark PharmD Unavailable [phone] Reason for Visit * Reason Onset Date Comments cx waiting period 12/07/2024 Encounter Details Date Type Department Care Team (Late st Contact Info) Description 12/07/2024 Telephone [facility] ADULT DENTAL [address] [place] [address] Justin Anne, SHAY [address] [place] [address] cx waiting period Social History Tobacco Use [...] Description 02/21/2025 10:00 AM EDT Medication Management [facility] MEDICINE [address] [place] [address] Flor Clark, Jaspreet [address] [place] [address] 05/15/2025 9:00 AM EST Clinical Support [facility] MED[facility]INE [address] [place] [address] April Murrell RN 07/01/2025 1:00 PM EST Office Visit [facility] ADULT DENTAL [address] [place] [address] Eleni Shin [address] [place], [place] [phone] documented as of this encounter Goals Goal [...] as of this encounter Care Teams Program Rep Relationship Specialty Start Date End Date Macie Link DO [address] [place] [address] PCP - General Family Medicine 05/30/18 Flor Clark, Jaspreet [address] [place] [address] Pharmacist Internal Medicine 08/18/23 documented as of this encounter
--- OUTSIDE RECORDS SUMMARY | 2025-02-20 13:58 | XMS_ITS | Encounter Summary ---
Author Organization [email or web address] [facility] Address [address] [place] [address] 7t [place] [address] Care Team Providers Care Vrt Mechanic Name Role Phone Macie Link DO Primary Care Provider Flor Clark PharmD Unavailable Reason for Visit * Reason Comments Med Refill Encounter Details Date Type Department Care Team (Late st Contact Info) Description 01/13/2023 Refill [facility] MEDICINE [address] [place] [address] Macie Link DO [address] [place] [address] Chronic neck pain Social History Tobacco Use [...] [facility] [address] [place] [address] Puia, Folr, PharmD [address] [place] [address] 05/15/2025 9:00 AM EST Clinical Support [facility] MEDICINE [address] [place], [place] [phone] April Murrell RN 07/01/2025 1:00 PM EST Office Visit [facility] ADULT DENTAL [address] [place], [place] [phone] Eleni Shin [address] [place] [address] documented as of this encounter Visit Diagnoses Diagnosis Chronic neck pain Cervicalgia documented in this encounter Additional Health Concerns Assessment Noted Time PHQ-9 Depression Total Score: 2 07/06/19 23 9:23 AM EST documented as of this encounter Care Teams Vrt Mechanic Relationship Specialty Start Date End Date Macie Link DO [address] [place] [address] PCP - General Family Medicine 05/30/18 Flor Clark PharmD [address] [place] [address] Pharmacist Internal Medicine 08/18/23 documented as of this encounter
--- OUTSIDE RECORDS SUMMARY | 2025-02-20 13:58 | XMS_ITS | Clinical Summary ---
Author Organization [facility] Address [address] [place] [address] Care Team Providers Care Hospice Case Manager Name Role Phone Ref, Has No [...] THE EVENING 5 Active FreeStyle Gurmeet 2 [place] Graeagle misc SMARTSIG:As Directed 4 Active FreeStyle Gurmeet [...] Active ipratropium (ATROVENT) 0.03% nasal spray SMARTSI Jansen(s) Both Nares 3 Times Daily Active Accu-Chek [...] Department Care Team Description 01/25/2025 Orders Only [facility] Interventional Radiology [address] [place] [address] Sharan Alcazar MD 12/07/2024 Documentation [facility] 5th Floor [address] [place] [address] Pierce Au MD 12/04/2024 Telephone [facility] 5th Floor [address] [place] [address] Telephone Intake, Staff PAC Test Result Request 11/27/2024 Telephone [facility] Transplant Department [address] [place] [address] Lynda Diaz RN from Last 3 Months Immunizations Immunization Administration Dates Next Due COVID-19, Moderna, mRNA, LNP -S, Bivalent Booster, PF 03/12/2022 Hepatitis B vaccine (HEPLISA V-B) vaccine 0.5 mL IM 12/29/2022,11/03/2022,10/04/2022,2022 Pneumococcal conjugate PCV20,polysaccharide VBQ333 conjugate, adjuvant, PF (Prevnar 20) 06/22/2023 Social [...] Description 03/19/2025 9:00 AM EDT Follow-Up [facility] Renal Transplant [address] [place] [address] Louie Pablo MD [address] [place], [place] [phone] 03/19/2025 9:30 AM EDT Social Work [facility] Renal Transplant [address] [place] [address] Imani Livingston, CENTRIFUGAL CASTING MACHINE TENDER [address] [place] [address] 04/25/2025 2:00 PM EST Appointment [facility] [place] [address] [place] [address] 05/09/2025 11:00 AM EST Follow-Up [facility] Building [facility] South 5th Floor [address] [place] [address] Pierce Au MD [address] [place] [address] Health Maintenance Due Date Last Done Comments [...] Completed 03/15/2024 Procedures * Due to [place] SPark! law, this organization might not be sharing [...] Health Maintenance Results * Due to [place] state law, this organization might not be sharing negative HIV tests. * (ABNORMAL) Basic Metabolic Panel (07/06/2024 11:59 AM EST) NA 138 135 - 145 mmol/L 07/06/2024 12:39 PM EST [facility] K 4.4 3.5 - 5.3 mmol/L 07/06/2024 12:39 PM EST [facility] Cl 96(L) 98 - 107 mmol/L 07/06/2024 12:39 PM EST [facility] CO2 30 22 - 32 mmol/L 07/06/2024 12:39 PM EST [facility] BUN 19 7 - 23 mg/dL 07/06/2024 12:39 PM EST [facility] Creatinine 5.41(H) 0.60 - 1.30 mg/dL 07/06/2024 12:39 PM EST [facility] Glucose 147(H) 65 - 99 mg/dL 07/06/2024 12:39 PM EST [facility] Calcium 9.7 8.6 - 10.5 mg/dL 07/06/2024 12:39 PM EST [facility] Anion Gap 12 5 - 15 07/06/2024 12:39 PM EST [facility] eGFR 11(L) >=60 mL/min/1 .73m2 07/06/2024 12:39 PM EST [facility] Comment:The estimated glomer ular [...] MD LAB BLOOD ORDERABLES Final Resu lt [facility] [address] [place] [address], [place] * (ABNORMAL) CBC Auto Differential (03/15/2024 12:39 PM EDT) WBC 6.2 3.8 - 10.8 10*3/uL 03/15/2024 1:11 PM EDT [facility] RBC 3.90(L) 4.20 - 5.80 10*6/uL 03/15/2024 1:11 PM EDT [facility] Hemoglobin 11.9(L) 13.2 - 17.1 g/dL 03/15/2024 1:11 PM EDT [facility] Hematocrit 36.8(L) 38.5 - 50.0 % 03/15/2024 1:11 PM EDT [facility] MCV 94.4 80.0 - 100.0 fL 03/15/2024 1:11 PM EDT [facility] MCH 30.5 27.0 - 33.0 pg 03/15/2024 1:11 PM EDT [facility] MCHC 32.3 32.0 - 36.0 g/dL 03/15/2024 1:11 PM EDT [facility] RDW 14.2 11.0 - 15.0 % 03/15/2024 1:11 PM EDT [facility] Platelets 175 140 - 400 10*3/uL 03/15/2024 1:11 PM EDT [email or web address] MPV 11.3 7.5 - 12.5 fL 03/15/2024 1:11 PM EDT [facility] Neutrophil % 59.1 % 03/15/2024 1:11 PM EDT [email or web address] Immature Grans % 0.2 0.0 - 0.9 % 03/15/2024 1:11 PM EDT [facility] Lymphocyte % 28.1 % 03/15/2024 1:11 PM EDT [facility] Monocyte % 9.9 % 03/15/2024 1:11 PM EDT [email or web address] Eosinophil % 2.4 % 03/15/2024 1:11 PM EDT [facility] Basophil % 0.3 % 03/15/2024 1:11 PM EDT [facility] Neutrophil # 3.63 1.50 - 7.80 10*3/uL 03/15/2024 1:11 PM EDT [email or web address] Immature Grans # <0.03 <=0.03 10*3/uL 03/15/2024 1:11 PM EDT [email or web address] Lymphocyte # 1.70 0.85 - 3.90 10*3/uL 03/15/2024 1:11 PM EDT [facility] Monocyte # 0.60 0.20 - 0.95 10*3/uL 03/15/2024 1:11 PM EDT [facility] Eosinophil # 0.20 0.02 - 0.50 10*3/uL 03/15/2024 1:11 PM EDT [facility] Basophil # <0.03 0.00 - 0.20 10*3/uL 03/15/2024 1:11 PM EDT [facility] nRBC % 0.0 /100 WBCs 03/15/2024 1:11 PM EDT [facility] nRBC # <0.01 <0.01 10*3/uL 03/15/2024 1:11 PM EDT [facility] Blood Structure of peripheral vein / Unknown Venipuncture / Unknown 03/15/2024 12:39 PM EDT 03/15/2024 12:59 PM EDT us Tobias Vogt MD LAB BLOOD ORDERABLES Final Result Performing Organization Address [facility]/ZIP Co de Phone Number [facility] [address] [place] [address], [place] * Hepatitis C Antibody w/Reflex to PCR (03/15/2024 12:39 PM EDT) Hepatitis C Antibody NON-REACT ALBINO NON-REACT ALBINO 03/16/2024 3:27 AM EDT [facility] Comment: HCV antibody was non-reactive. There is no laboratory evidence of HCV infection. In most cases, no further action is required. However, if recent HCV exposure is suspected, a test for HCV RNA (test code 88287) is suggested. For additional information please refer to http://education.Kiip/faq/GVZ49k5 (This link is being provided for informational/ educational purposes only.) Blood Structure of peripheral vein / Unknown Venipuncture / Unknown 03/15/2024 12:39 PM EDT 03/15/2024 12:58 PM EDT Narrative [facility] 03/16/2024 3:27 AM EDT [facility] Received Date: us Tobias Vogt MD LAB BLOOD ORDERABLES Final Result Performing Organization Address [facility]/ZIP Co de Phone Number ELIUD DOMÍNUGEZ [address] [facility] 3rd Floor, [place] [address], [place] [phone] MSA Management [facility] [address] [facility] 3rd Floor, [place] [address], [place] [phone] * Phosphorus (03/15/2024 12:39 PM EDT) Phosphorus 3.4 2.5 - 4.5 mg/dL 03/15/2024 1:45 PM EDT [facility] Blood Structure of peripheral vein / Unknown Venipuncture / Unknown 03/15/2024 12:39 PM EDT 03/15/2024 12:58 PM EDT Tobias Vogt MD LAB BLOOD ORDERABLES Final Result [facility] [address] [place] [address], [place] * (ABNORMAL) Hemoglobin A1c (03/15/2024 12:39 PM EDT) Hemoglobin A1C 6.3(H) <5.7 % of total Hgb 03/16/2024 2:05 AM EDT [facility] Comment: For someone without known diabetes, a [...] (MG/DL) 134 mg/dL 03/16/2024 2:05 AM EDT [facility] eAG (MMOL/L) 7.4 mmol/L 03/16/2024 2:05 AM EDT [facility] Blood Structure of peripheral vein / Unknown Venipuncture / Unknown 03/15/2024 12:39 PM EDT 03/15/2024 12:59 PM EDT [facility]arrative [facility] 03/16/2024 2:05 AM EDT [facility] Received Date:[id number] us Tboias Vogt MD LAB BLOOD ORDERABLES Final Result ELIUD DOMÍNGUEZ [address] 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
--- OUTSIDE RECORDS SUMMARY | 2025-02-20 13:58 | XMS_ITS | Encounter Summary ---
Author Organization [employer] Address 75 [facility] 7t [place] [address] Care Team Providers Care White Shoe Ragger Name Role Phone Macie Link DO Primary Care Provider [phone] Flor Clark PharmD Unavailable [phone] Reason for Visit * Reason Comments Med Refill Encounter Details Date Type Department Care Team (Late st Contact Info) Description 06/03/2023 Refill [facility] MEDICINE [address] [place] [address] Macie Link DO [address] [place] [address] Anxiety Social History Tobacco Use Types Packs/Day [...] Management [facility] MEDICINE [address] [place] [address] Flor Clark PharmD [address] [place] [address] 05/15/2025 9:00 AM EST Clinical Support [facility] MEDICINE [address] [place] [address] April Murrell RN 07/01/2025 1:00 PM EST Office Visit [facility] ADULT DENTAL [address] [place] [address] Eleni Shin [address] [place] [address] documented as of this encounter Visit Diagnoses Diagnosis Anxiety Anxiety state, unspecified documented in this encounter Additional Health Concerns Assessment Noted Time PHQ-9 Depression Total Score: 13 024 9:15 AM EST documented as of this encounter Care Teams White Shoe Ragger Relationship Specialty Start Date End Date Macie Link DO [address] [place] [address] PCP - General Family Medicine 05/30/18 Flor Clark PharmD [address] [place] [address] Pharmacist Internal Medicine 08/18/23 documented as of this encounter
--- OUTSIDE RECORDS SUMMARY | 2025-02-20 13:58 | XMS_ITS | Encounter Summary ---
Author Organization [employer] Address 75 [facility] 7t [place] [address] Care Team Providers Care Marketing Traffic Manager Name Role Phone Macie Link DO Primary Care Provider [phone] Flor Clark PharmD Unavailable [phone] Reason for Visit * Reason Comments Med Refill Encounter Details Date Type Department Care Team (Late st Contact Info) Description 06/01/2023 Refill [facility] [address] [place] [address] Macie Link DO [address] [place] [address] Anxiety; Chronic neck pain Social History Tobacco [...] [facility] [address] [place] [address] Flor Clark PharmD [address] [place] [address] 05/15/2025 9:00 AM EST Clinical Support [facility] MED[facility] [address] [place] [address] April Murrell, RN 07/01/2025 1:00 PM EST Office Visit [facility] ADULT DENTAL [address] [place] [address] Eleni Shin [address] [place] [address] documented as of this encounter Visit Diagnoses Diagnosis Anxiety Anxiety state, unspecified Chronic neck pain Cervicalgia documented in this encounter Additional Health Concerns Assessment Noted Time PHQ-9 Depression Total Score: 13 024 9:15 AM EST documented as of this encounter Care Teams Marketing Traffic Manager Relationship Specialty Start Date End Date Macie Link DO [address] [place] [address] PCP - General Family Medicine 05/30/18 Puia, Jaspreet Ray [address] [place] [address] Pharmacist Internal Medicine 08/18/23 documented as of this encounter
--- OUTSIDE RECORDS SUMMARY | 2025-02-20 13:58 | XMS_ITS | Encounter Summary ---
Author Organization [facility] Address [address] [place] [address] Care Team Providers Care Director Funds Development Name Role Phone Ref, Has No Pcp Or Primary Care Provider Unavail able Encounter Details Date Type Department Care Team (Late st Contact Info) Description 09/27/2024 Orders Only [facility] Interventional Radiology [address] [place] [address] Cami Garland PA [address] [place] [address] Social History Tobacco Use Types Packs/Day Years [...] Info) Description 03/19/2025 9:00 AM EDT Follow-Up [facility] Renal Transplant [address] [place] [address] Louie Pablo MD [address] [place] [address] 03/19/2025 9:30 AM EDT Social Work [facility] Renal Transplant [address] [place] [address] Imani Livingston, LORY [address] [place] [address] 04/25/2025 2:00 PM EST Appointment [facility] [address] [place] [address] 05/09/2025 11:00 AM EST Follow-Up [facility] South 5th Floor [address] [place] [address] Pierce Au MD [address] [place] [address] documented as of this encounter Visit Diagnoses Not on filedocumented in this encounter Care Teams Director Funds Development Relationship Specialty Start Date End Date Ref, Has No Pcp Or DO NOT EDIT THIS RECORD VIA PROVIDER ON THE FLY PCP - General Account Support Specialist 03/15/24 documented as of this encounter
--- OUTSIDE RECORDS SUMMARY | 2025-02-20 13:58 | XMS_ITS | Encounter Summary ---
Author Organization [facility], Address [address] [place] [address] Phone Care Team Providers Care Hot Saw Helper Name Role Phone Macie Link DO Primary Care Provider Unava ilable Encounter Details Date Type Department Care Team (Late st Contact Info) Description 10/19/2023 Documentation Only [facility], [address] [place] [address] Jimena Gibson [place] [address] [place] [address] Social History Tobacco Use Types [...] on filedocumented in this encounter Care Teams Hot Saw Helper Relationship Specialty Start Date End Date Macie Link DO PCP - General 04/03/19 documented as of this encounter
--- OUTSIDE RECORDS SUMMARY | 2025-02-20 13:58 | XMS_ITS | Encounter Summary ---
Author Organization [employer] Address 75 [facility] 7t [place] [address] Care Team Providers Care Orchestrator Name Role Phone Macie Link DO Primary Care Provider +1- [phone] Flor Clark PharmD Unavailable [phone] Reason for Visit * Reason Comments Med Refill Encounter Details Date Type Department Care Team (Late st Contact Info) Description 12/12/[address] [facility] MEDICINE [address] [place] [address] Macie Link DO [address] [place] [address] Anxiety; Chronic neck pain Social History Tobacco [...] [facility] MED[facility]INE [address] [place] [address] Flor Clark, PharmD [address] [place] [address] 05/15/2025 9:00 AM EST Clinical Support [facility] MEDICINE [address] [place] [address] April Murrell RN 07/01/2025 1:00 PM EST Office Visit [facility] ADULT DENTAL [address] [place] [address] Eleni Shin [address] [place] [address] documented as of this encounter Goals Goal Patient Goal Type Associated Problems Recent Progress Patient-Stated? Author Hemoglobin A1c < 7 Result Component 6.3( 10:51 AM EDT) No Flor Clark, PharmMaraijose Note: A1c value is falsely low d/t [...] documented as of this encounter Care Teams Orchestrator Relationship Specialty Start Date End Date Macie Link DO [address] [place] [address] PCP - General Family Medicine 05/30/18 Flor Clark PharmD [address] [place] [address] Pharmacist Internal Medicine 08/18/23 documented as of this encounter
--- OUTSIDE RECORDS SUMMARY | 2025-02-20 13:58 | XMS_ITS | Encounter Summary ---
Author Organization [employer] Address 75 [facility] 7t [place] [address] Care Team Providers Care Title I Math Tutor Name Role Phone Macie Link DO Primary Care Provider +1- [phone] Flor Clark PharmD Unavailable Reason for Visit * Reason Comments Med Refill Encounter Details Date Type Department Care Team (Late st Contact Info) Description 08/22/2023 Refill [facility] MEDICINE [address] [place] [address] Macie Link DO [address] [place], [place] [phone] Chronic neck pain; Anxiety Social History Tobacco [...] 02/21/2025 10:00 AM EDT Medication Management [facility] MEDICINE [address] [place] [address] Flor Clark, PharmD [address] [place] [address] 05/15/2025 9:00 AM EST Clinical Support [facility] MEDICINE [address] [place] [address] April Murrell RN 07/01/2025 1:00 PM EST Office Visit [facility] ADULT DENTAL [address] [place] [address] Eleni Shin [address] [place] [address] documented as of this encounter Goals Goal [...] documented as of this encounter Care Teams Title I Math Tutor Relationship Specialty Start Date End Date Macie Link DO [address] [place] [address] PCP - General Family Medicine 05/30/18 Flor Clark PharmD [address] [place] [address] Pharmacist Internal Medicine 08/18/23 documented as of this encounter
--- OUTSIDE RECORDS SUMMARY | 2025-02-20 13:58 | XMS_ITS | Encounter Summary ---
Author Organization [employer] Address 75 [facility] 7t [place] [address] Care Team Providers Care Construction Carpenter Name Role Phone Macie Link DO Primary Care Provider +1- [phone] Flor Clark PharmD Unavailable [phone] Reason for Visit * Reason Comments Med Refill Encounter Details Date Type Department Care Team (Late st Contact Info) Description 12/17/2024 Refill [facility] MEDICINE [address] [place] [address] Macie Link DO [address] [place] [address] Chronic neck pain Social History Tobacco Use [...] 10:00 AM EDT Medication Management [facility] MEDICINE [address] [place] [address] Flor Clark PharmD [address] [place] [address] 05/15/2025 9:00 AM EST Clinical Support [facility] MEDICINE [address] [place] [address] April Murrell RN 07/01/2025 1:00 PM EST Office Visit [facility] ADULT DENTAL [address] [place] [address] Eleni Shin [address] [place] [address] documented as of this encounter Goals Goal [...] documented as of this encounter Care Teams Construction Carpenter Relationship Specialty Start Date End Date Macie Link DO [address] [place] [address] PCP - General Family Medicine 05/30/18 Flor Clark PharmD [address] [place] [address] Pharmacist Internal Medicine 08/18/23 documented as of this encounter
--- OUTSIDE RECORDS SUMMARY | 2025-02-20 13:58 | XMS_ITS | Encounter Summary ---
Author Organization [employer] Address 75 [facility] 7t [place] [address] Care Team Providers Care Building Services Engineer Name Role Phone Macie Link DO Primary Care Provider +1- [phone] Flor Clark PharmD Unavailable [phone] Reason for Visit * Reason Comments Med Refill Encounter Details Date Type Department Care Team (Late st Contact Info) Description 08/20/2024 Refill [facility] MEDICINE [address] [place] [address] Macie Link DO [address] [place] [address] Chronic neck pain; Anxiety Social History Tobacco [...] 10:00 AM EDT Medication Management [facility] MEDICINE [address] [place] [address] Flor Clark, PharmD [address] [place] [address] 05/15/2025 9:00 AM EST Clinical Support [facility] MEDICINE [address] [place] [address] April Murrell RN 07/01/2025 1:00 PM EST Office Visit [facility] ADULT DENTAL [address] [place] [address] Eleni Shin [address] [place] [address] documented as of this encounter Goals Goal Patient Goal Type Associated Problems Recent Progress Patient-Stated? Author Hemoglobin A1c < 7 Result Component 6.3( 10:51 AM EDT) No Flor Clark, PharmMariajose Note: A1c value is falsely low d/t dialysis. Ordered fructosamine value 08/18/23 and once resulted will use to calculate a more accurate A1c Record your blood sugar as directed Result Component No Folr Clark, PharmD Note: Use CGM, ensuring sensor [...] as of this encounter Care Teams Building Services Engineer Relationship Specialty Start Date End Date Macie Link DO [address] [place] [address] PCP - General Family Medicine 05/30/18 Flor Clark PharmD [address] [place] [address] Pharmacist Internal Medicine 08/18/23 documented as of this encounter
--- OUTSIDE RECORDS SUMMARY | 2025-02-20 13:58 | XMS_ITS | Encounter Summary ---
Author Organization [employer] [facility] Address [address] [place] [address] 7t [place] [address] Care Team Providers Care Corporate Tutor Name Role Phone Macie Link DO Primary Care Provider [phone] Flor Clark PharmD Unavailable Reason for Visit * Reason Comments Med Refill Encounter Details Date Type Department Care Team ([facility] Contact Info) Description 10/14/2022 Refill [facility] MEDICINE [address] [place] [address] Macie Link DO [address] [place] [address] Anxiety Social History Tobacco Use Types Packs/Day [...] Upcoming Encounters Date Type Department Care Team ([facility] st Contact Info) Description 02/21/2025 10:00 AM EDT Medication Management [facility] MEDICINE [address] [place] [address] Flor Clark PharmD 230 [place] [address] 05/15/2025 9:00 AM EST Clinical Support [facility] MEDICINE [address] [place] [address] April Murrell, RN 07/01/2025 1:00 PM EST Office Visit [facility] ADULT DENTAL [address] [place] [address] Eleni Shin [address] [place] [address] documented as of this encounter Visit Diagnoses Diagnosis Anxiety Anxiety state, unspecified documented in this encounter Additional Health Concerns Assessment Noted Time PHQ-9 Depression Total Score: 2 07/06/19 23 9:23 AM EST documented as of this encounter Care Teams Corporate Tutor Relationship Specialty Start Date End Date Macie Link DO [address] [place] [address] PCP - General Family Medicine 05/30/18 Flor Clark PharmD [address] [place] [address] Pharmacist Internal Medicine 08/18/23 documented as of this encounter
--- OUTSIDE RECORDS SUMMARY | 2025-02-20 13:58 | XMS_ITS | Encounter Summary ---
Author Organization [employer] Address 75 [facility] 7t [place] [address] Care Team Providers Care Emergency Detail Driver Name Role Phone Macie Link DO Primary Care Provider [phone]- [phone] Flor Clark PharmD Unavailable [phone] Reason for Visit * Reason Onset Date Comments Prior Authorization 08/17/2023 Encounter Details Date Type Department Care Team (Late st Contact Info) Description 08/17/2023 Telephone [facility] MEDICINE [address] [place] [address] Macie Link DO 230 [place] [address] Prior Authorization Social History Tobacco Use Types [...] 2.5-2.5 % cream To be sent to: [facility] - [place], [place] - [address] [place] [address] documented in this encounter Plan of Treatment Upcoming Encounters Date Type Department Care Team ([facility] st Contact Info) Description 02/21/2025 10:00 AM EDT Medication Management [address] [address] Flor Clark, PharmD 230 [place] [address] 05/15/2025 9:00 AM EST Clinical Support [address] [address] April Murrell RN 07/01/2025 1:00 PM EST Office Visit [facility] ADULT DENTAL [address] [place], [place] [phone] Eleni Shin [address] [place] [address] documented as of this encounter Goals Goal [...] documented as of this encounter Care Teams Emergency Detail Driver Relationship Specialty Start Date End Date Macie Link DO [address] [place] [address] PCP - General Family Medicine 05/30/18 Flor Clark PharmD [address] [place], [place] [phone] Pharmacist Internal Medicine 08/18/23 documented as of this encounter
--- OUTSIDE RECORDS SUMMARY | 2025-02-20 13:58 | XMS_ITS ---
Author Organization [facility] Address [address] [place] [address] Care Team Providers Care Principal Secretary Name Role Phone Ref, Has No Pcp Or Primary Care Provider Unavail able Transplant Episode Kidney Candidate [facility] ([place], [place]) - [facility] Evaluation began on 03/15/2024 Marked as Active on 03/15/2024 Kidney CoordinatorLynda Diaz RN Fax: N/A Email: N/A Scores Score Value Updated Exceptions/Reas ons CPRA Not available EPTS (Calc) 90 02/20/2025 [place] Organ Diagnosis Organ Primary Contributory Kidney Diabetes Mellitus - Type II Care Team Name Role Phone Fax Email Lynda Diaz RN Kidney Coordinator [phone] N/A N/A Anastacio Nickerson MD Referring Physician [phone] N/A Events Pre-Transplant Referred: 12/21/2023 Evaluation began: 03/15/2024 Appointments (01/20/2025 - 03/22/2025) When With Visit Type Description 03/19/2025 Transplant - Miki R Follow U p 03/19/2025 Transplant - Ramos Pablo Follow Up Dialysis History Dialysis History Start End Type Comments Center 12/17/2021 In-center Hemodialysis M, W, F [facility] Dialysis Center Information Center Phone Fax Address [facility] [phone] [address] [facility] [address] [facility] [address]
--- OUTSIDE RECORDS SUMMARY | 2025-02-20 13:59 | XMS_ITS | Encounter Summary ---
Author Organization [employer] Address 75 [facility] 7t [place] [address] Care Team Providers Care Associate Programmer Name Role Phone Macie Link DO Primary Care Provider [phone]- [phone] Flor Clark PharmD Unavailable [phone] Reason for Visit * Reason Comments Med Refill Encounter Details Date Type Department Care Team (Late st Contact Info) Description 03/11/2023 Refill [facility] MEDICINE 230 [place] [address] Macie Link DO 230 [place] [address] Chronic neck pain; Anxiety Social History Tobacco [...] 10:00 AM EDT Medication Management [facility] MEDICINE [address] [place] [address] Flor Clark PharmD 230 [place] [address] 05/15/2025 9:00 AM EST Clinical Support [facility] MEDICINE [address] [place] [address] April Murrell RN 07/01/2025 1:00 PM EST Office Visit [facility] ADULT DENTAL [address] [place] [address] Eleni Shin [address] [place] [address] documented as of this encounter Visit Diagnoses Diagnosis Chronic neck pain Cervicalgia Anxiety Anxiety state, unspecified documented in this encounter Additional Health Concerns Assessment Noted Time PHQ-9 Depression Total Score: 2 07/06/19 23 9:23 AM EST documented as of this encounter Care Teams Associate Programmer Relationship Specialty Start Date End Date Macie Link DO [address] [place] [address] PCP - General Family Medicine 05/30/18 Flor Clark, PharmD [address] [place] [address] Pharmacist Internal Medicine 08/18/23 documented as of this encounter
--- OUTSIDE RECORDS SUMMARY | 2025-02-20 13:59 | XMS_ITS | Encounter Summary ---
Author Organization [facility], Address [address] [place] [address] Phone Care Team Providers Care Quill Machine Operator Name Role Phone Macie Link DO Primary Care Provider Unava ilable Encounter Details Date Type Department Care Team (Late st Contact Info) Description 12/09/2021 Documentation Only [facility], [address] [place] [address] Romario Ford MD [address] [place] [place] [phone] Social History Tobacco Use Types Packs/Day Years [...] on filedocumented in this encounter Care Teams Quill Machine Operator Relationship Specialty Start Date End Date Macie Link DO PCP - General 04/03/19 documented as of this encounter
--- OUTSIDE RECORDS SUMMARY | 2025-02-20 13:59 | XMS_ITS | Encounter Summary ---
Author Organization [facility] Address [address] [place] [address] Care Team Providers Care E Marketing Specialist Name Role Phone Ref, Has No Pcp Or Primary Care Provider Unavail able Encounter Details Date Type Department Care Team (Late st Contact Info) Description 01/25/2025 Orders Only [facility] Interventional Radiology [address] [place] [address] Sharan Alcazar MD [address] [place] [address] [place] [address] Social History Tobacco Use Types Packs/Day Years [...] Info) Description 03/19/2025 9:00 AM EDT Follow-Up [facility] Renal Transplant [address] [place] [address] Louie Pablo MD [address] [place] [address] 03/19/2025 9:30 AM EDT Social Work [facility] Renal Transplant [address] [place] [address] Imani Livingston LICSW [address] [place] [address] 04/25/2025 2:00 PM EST Appointment [facility] [address] [place] [address] 05/09/2025 11:00 AM EST Follow-Up [facility] 5th Floor [address] [place] [address] Pierce Au MD [address] [place] [address] documented as of this encounter Visit Diagnoses Not on filedocumented in this encounter Care Teams E Marketing Specialist Relationship Specialty Start Date End Date Ref, Has No Pcp Or DO NOT EDIT THIS RECORD VIA PROVIDER ON THE FLY PCP - General Assistant Principal 03/15/24 documented as of this encounter
--- OUTSIDE RECORDS SUMMARY | 2025-02-20 13:59 | XMS_ITS | Encounter Summary ---
Author Organization [employer] Address 75 [facility] 7t [place] [address] Care Team Providers Care Outboard Motor Inspector Name Role Phone Macie Link DO Primary Care Provider +1- [phone] Flor Clark PharmD Unavailable [phone] Reason for Visit * Reason Comments Med Refill Encounter Details Date Type Department Care Team (Late st Contact Info) Description 03/14/2023 Refill [facility] MEDICINE [address] [place] [address] Macie Link DO [address] [place] [address] Anxiety; Chronic neck pain Social History Tobacco [...] Description 02/21/2025 10:00 AM EDT Medication Management [facility] MEDICINE [address] [place] [address] Flor Clark PharmD [address] [place] [address] 05/15/2025 9:00 AM EST Clinical Support [facility] MEDICINE [address] [place] [address] April Murrell RN 07/01/2025 1:00 PM EST Office Visit [facility] ADULT DENTAL [address] [place] [address] Eleni Shin [address] [place] [address] documented as of this encounter Visit Diagnoses Diagnosis Anxiety Anxiety state, unspecified Chronic neck pain Cervicalgia documented in this encounter Additional Health Concerns Assessment Noted Time PHQ-9 Depression Total Score: 2 07/06/19 23 9:23 AM EST documented as of this encounter Care Teams Outboard Motor Inspector Relationship Specialty Start Date End Date Macie Link DO [address] [place] [address] PCP - General Family Medicine 05/30/18 Flor Clark, PharmD [address] [place] [address] Pharmacist Internal Medicine 08/18/23 documented as of this encounter
--- OUTSIDE RECORDS SUMMARY | 2025-02-20 13:59 | XMS_ITS | Encounter Summary ---
Author Organization [employer] Address 75 [facility] 7t [place] [address] Care Team Providers Care Director Of Medical Staff Services Name Role Phone Macie Link DO Primary Care Provider Flor Clark PharmD Unavailable [phone] Reason for Visit * Reason Onset Date Comments Appointment Request 01/30/2025 Encounter Details Date Type Department Care Team ([facility] st Contact Info) Description 01/30/2025 Telephone [facility] MEDICINE [address] [place] [address] Macie Link DO [address] [place] [address] Appointment Request Social History Tobacco Use Types [...] Description 02/21/2025 10:00 AM EDT Medication Management [facility] MEDICINE [address] [place] [address] Flor Clark, PharmD [address] [place] [address] 05/15/2025 9:00 AM EST Clinical Support [facility] MEDICINE [address] [place] [address] April Murrell RN 07/01/2025 1:00 PM EST Office Visit [facility] ADULT DENTAL [address] [place] [address] Eleni Shin [address] [place] [address] documented as of this encounter Goals Goal [...] of this encounter Care Teams Director Of Medical Staff Services Relationship Specialty Start Date End Date Macie Link DO [address] [place] [address] PCP - General Family Medicine 05/30/18 Flor Clark PharmD [address] [place] [address] Pharmacist Internal Medicine 08/18/23 documented as of this encounter
--- OUTSIDE RECORDS SUMMARY | 2025-02-20 13:59 | XMS_ITS | Encounter Summary ---
Author Organization [employer] Address 75 [facility] 7t [place] [address] Care Team Providers Care Igniter Assembler Name Role Phone Macie Link DO Primary Care Provider +1- [phone] Flor Clark PharmD Unavailable [phone] Reason for Visit * Reason Comments Med Refill Encounter Details Date Type Department Care Team ([facility] st Contact Info) Description 01/23/2025 Refill [facility] MEDICINE [address] [place] [address] Macie Link DO [address] [place] [address] Chronic GERD Social History Tobacco Use Types [...] 02/21/2025 10:00 AM EDT Medication Management [facility] MEDICINE [address] [place] [address] Flor Clark, PharmD [address] [place] [address] 05/15/2025 9:00 AM EST Clinical Support [facility] MEDICINE [address] [place] [address] April Murrell RN 07/01/2025 1:00 PM EST Office Visit [facility] ADULT DENTAL [address] [place] [address] Eleni Shin [address] [place] [address] documented as of this encounter Goals Goal [...] documented as of this encounter Care Teams Igniter Assembler Relationship Specialty Start Date End Date Macie Link DO [address] [place] [address] PCP - General Family Medicine 05/30/18 Flor Clark PharmD [address] [place] [address] Pharmacist Internal Medicine 08/18/23 documented as of this encounter
--- OUTSIDE RECORDS SUMMARY | 2025-02-20 13:59 | XMS_ITS | Encounter Summary ---
Author Organization [facility], Address [address] [place] [address] Phone Care Team Providers Care Meat Inspector Name Role Phone Macie Link DO Primary Care Provider Unava ilable Encounter Details Date Type Department Care Team (Late st Contact Info) Description 11/27/2021 Documentation Only [facility], [address] [place] [address] Romario Ford MD [address] [place] [phone] Social History Tobacco Use Types Packs/Day Years [...] on filedocumented in this encounter Care Teams Meat Inspector Relationship Specialty Start Date End Date Macie Link DO PCP - General 04/03/19 documented as of this encounter
== END 2025-02-20 11:25 | disposition home or self-care (01) ==
LOC: HO.HCS 10:53
PROVIDERS: PCP Family Medicine; Visit Provider Internal Medicine Cardiovascular Disease
DX: I48.92 Unspecified atrial flutter (principal); I25.10 Atherosclerotic heart disease of native coronary artery without angina pectoris; I42.9 Cardiomyopathy, unspecified
CPT/HCPCS: 93010; 99214; G2211

== ENCOUNTER → 2025-02-20 10:53 | Outpatient (BNVA) | payer OTHER, SELFPAY | PROVIDERS: PCP Family Medicine; Visit Provider Internal Medicine Cardiovascular Disease | DX: I48.92 Unspecified atrial flutter (principal); I42.9 Cardiomyopathy, unspecified; I25.10 Atherosclerotic heart disease of native coronary artery without angina pectoris; I10 Essential (primary) hypertension | CPT/HCPCS: 93005; 99212 ==

== ENCOUNTER 2025-03-06 14:33 | Outpatient (AMB) | payer OTHER, SELFPAY ==
--- NOTE | 2025-03-06 14:37 | A.OFFVIS_ITS ---
Vital Signs 03/06/25 14:40 Height 5 ft 6 in Weight 198 lb BMI 32.0 Intake Visit Reasons: INJ- B/L knee Durolane. Intake Note: Joshua is a 64 year old male who presents with complaints of bilateral knee pains. He describes his pains as sharp in nature. He has tried Tylenol which gives him mild relief. He is not able to take anti-inflammatory medicines because he is on Eliquis. Has failed the last 3 months of conservative treatment. He has had cortisone injections in the past which gave him mild relief. Allergies No Known Allergies Allergy (Verified 03/06/25 14:40) Medication List - Last Reconciled 03/06/25 by Mathew Cheema MD albuterol sulfate 90 mcg/actuation (ProAir HFA) 2 puffs PO Q6H PRN amlodipine 10 mg PO DAILY apixaban (Eliquis) 5 mg PO BID atorvastatin 80 mg PO BEDTIME blood sugar diagnostic (FreeStyle Lite Strips) carvedilol 12.5 mg PO BID clonazepam 1 mg PO BID clotrimazole 1% 1 appl topical BID dronedarone (Multaq) 400 mg PO BID gabapentin 100 mg PO BID insulin aspart U-100 (Novolog FlexPen U-100 Insulin aspart) 1 sliding scale dose subcut TIDAC insulin glargine (Lantus Solostar U-100 Insulin) 34 units subcut DAILY ipratropium bromide 1 spray intranasal TID levothyroxine 112 mcg PO DAILY@0600 lidocaine 5% 1 patch topical DAILY lidocaine-prilocaine 2.5-2.5 % 1 appl topical DAILY PRN loratadine 10 mg PO Q OTHER DAY nitroglycerin 0.4 mg sublingual Q5M PRN omeprazole 40 mg PO BID oxycodone-acetaminophen 10-325 mg 1 tab PO Q4H PRN pen needle, diabetic (Pentips Pen Needle) semaglutide (Ozempic) mg subcut sevelamer carbonate 1,600 mg PO TIDWM zolpidem 10 mg PO BEDTIME PFSH Medical History History of cardioversion Hx of sleep apnea GERD (gastroesophageal reflux disease) Atrial flutter Colon adenomas Asthma Colon cancer screening End stage renal disease Type 2 diabetes mellitus with unspecified complications Essential hypertension Normocytic anemia Non-cardiac chest pain CAD (coronary artery disease) CVA (cerebral vascular accident) Hypertension Surgical History History of colonoscopy H/O neck surgery Hx of colonoscopy History of bladder surgery Stented coronary artery History of nephrectomy Family History Other No family history of coronary artery disease Social History Household Members: Spouse Housing: Apartment Are you a primary pharmacy customer care specialist to a significant other at home: No Do you presently have visiting nurse or other home services: Yes Alcohol intake: former Patient Tobacco Use Status: Former Tobacco user Tobacco use type: Cigarette service: No Current occupational status: disabled Physical Exam Vital Signs: BMI result Body Mass Index 32.0 Const Other: Well-nourished well-developed very friendly male awake alert and oriented x3 in no acute distress Extrem Other: Bilateral knee examination shows minimal effusions, palpable crepitus with range of motion, pain with range of motion, no instability Office Procedures AMB Joint Injection/Aspiration Joint Injection/Aspiration Primary Site: left knee Prep: site was prepped using aseptic technique Injected: 60 mg of (Durolane viscosupplementation) and 1% plain lidocaine Procedure: The patient tolerated the procedure well Coding 18409 - Large joint Procedure code (CPT) selection complete AMB Joint Injection/Aspiration Joint Injection/Aspiration Primary Site: right knee Prep: site was prepped using aseptic technique Injected: 60 mg of (Durolane viscosupplementation) and 1% plain lidocaine Procedure: The patient tolerated the procedure well Coding 60943 - Large joint Procedure code (CPT) selection complete Results Reviewed Results Reviewed: X-rays of the patient's bilateral knees taken previously show joint space narrowing, subchondral sclerosis, no acute bony abnormalities Assessment & Plan Assessment & Plan (1) Osteoarthritis of left knee: Code(s): M17.12 - Unilateral primary osteoarthritis, left knee Category: Medical (2) Osteoarthritis of right knee: Code(s): M17.11 - Unilateral primary osteoarthritis, right knee Category: Medical Plan Joshua presents with bilateral knee pains due to osteoarthritis. The risks and benefits of bilateral knee Durolane viscosupplementation injections were discussed at length with the patient. The patient wished to proceed. Tolerated the injections well. He will continue with his home exercise program. Will contact me prior to his follow-up appointment in 3 months should any questions or concerns arise. Feel free to call me at any time should questions regarding his orthopedic management arise. I spent 21 minutes in reviewing the patient's records and imaging studies, seeing the patient and documenting in the medical record. Orders: Orders AMB Joint Injection/Aspiration Today M17.11 - Unilateral primary osteoarthritis, right knee AMB Joint Injection/Aspiration Today M17.12 - Unilateral primary osteoarthritis, left knee Coding Level of Care Code Est Pt Level 3 (61313) Complex EM visit Add On G2211 Diagnoses Osteoarthritis of left knee M17.12 Osteoarthritis of right knee M17.11 CPT Codes Coding - 69558 Large joint: 08563 - Large joint ([id number]) Coding - 05820 Large joint: 45972 - Large joint ([id number])
[2025-03-06 14:40] VITALS: BMI 32.0
== END 2025-03-06 14:58 | disposition home or self-care (01) ==
LOC: HO.HOS 14:34
PROVIDERS: PCP Family Medicine; Visit Provider Orthopaedic Surgery
DX: M17.0 Bilateral primary osteoarthritis of knee (principal)
CPT/HCPCS: 20610; 99213

== ENCOUNTER → 2025-03-06 14:33 | Outpatient (BNVA) | payer OTHER, SELFPAY | PROVIDERS: PCP Family Medicine; Visit Provider Orthopaedic Surgery | DX: M17.0 Bilateral primary osteoarthritis of knee (principal) | CPT/HCPCS: 20610; 99212; J2003; J7318 ==

== ENCOUNTER → 2025-04-09 11:00 | Outpatient (REF) | payer OTHER, SELFPAY ==
--- NOTE | 2025-04-09 11:04 | CA_ITS ---
Transthoracic Echocardiogram Patient (Last, First, Middle): Joshua Torres, Gender: M Date of : 1960 Age: 64 Procedure Date: 04/09/2025 Procedure Type: Transthoracic Echocardiogram Location: OP Height: 167.64 cm Weight: 89.81 kg BSA: 1.99 m2 Heart Rate: bpm BP: 130 / 70 mmHg Strip Winder: DIEGO Referring MD: Jose Guy MD Air Surveillance Operator: Jose Guy MD Symptoms: I42.9 - Cardiomyopathy, unspecified Study Quality: Fair but adequate ECG Rhythm: Sinus Conclusions: - 1. Low normal LV ejection fraction 50-55% with grade 1 diastolic dysfunction 2. Calcific aortic and mitral valve changes noted with normal cardiac valvular Dopplers 3. Normal RV systolic pressure 4. Mildly dilated ascending aorta at 4 cm 5. No gross pericardial effusion Findings Left Ventricle Normal left ventricular cavity size. There is normal left ventricular wall thickness. The left ventricular systolic function is low normal. The visually estimated ejection fraction is between 50-55%. Spectral Doppler is indicative of an impaired relaxation filling pattern. E/E prime ratio is <8, consistent with normal filling pressures. Wall Motion Rest Echo Findings The mid inferior and mid inferoseptal segments are hypokinetic. The basal inferior and basal inferoseptal segments are akinetic. All other scored wall segments showed normal motion. Right Ventricle Mildly increased right ventricular cavity size. There is normal right ventricular systolic function. Atria Both atria are normal in size. There is no evidence of interatrial shunt. Aortic Valve There is mild calcification of the aortic valve. There is no aortic valve stenosis. There is no aortic valve regurgitation. Mitral Valve There is mild anterior and posterior mitral leaflet thickening. There is mild mitral annular calcification. There is mild mitral valve regurgitation. There is no mitral valve stenosis. Pulmonic Valve The pulmonic valve is likely normal. Tricuspid Valve Normal tricuspid valve structure. There is trace tricuspid valve regurgitation. The right ventricular systolic pressure is 22 mmHg. Normal right atrial pressure. There is no evidence of pulmonary hypertension. Great Vessels The pulmonary artery was not well visualized. There is mild dilatation of the ascending aorta measuring 4.00 cm. Small plaque is seen in the sino tubular ridge. Venous The inferior vena cava is normal in size and collapses greater than 50% with inspiration. Pericardium/Pleural There is no evidence of pericardial effusion. Prior Study Comparison Changes noted compared to prior study dated: 03/22/2024. LV ejection fraction has marginally improved Measurements 2D Linear Measurements IVSd: 1.07 0.6-0.9/0.6-1.0 cm LVIDd: 5.21 3.9-5.3/4.2-5.9 cm LVIDd Index: 2.62 2.4-3.2/2.2-3.1 cm/m2 LVIDs: 3.31 2.0-3.6 cm LVPWd: 1.04 0.7-1.1 cm LA Diam: 3.30 2.7-3.8/3.0-4.0 cm LAIDs Index: 1.66 1.5-2.3 cm/m2 LV Mass: 260.83 67-162/88-224 g LV Mass Index: 131.07 43-95/49-115 g/m2 LVOT Diam: 2.00 3.0+(-)1.3 cm 2D Systolic Function EF 4C: 55.30 >55% EF 2C: 53.70 >55% EF BiP: 54.10 >55% Mitral Valve MV Pk E: 0.79 MV PK A: 0.96 MV Decel Time: 229.00 E/A: 0.80 E'Lateral: 9.79 E'Medial: 6.09 E/E' Med: 12.90 E/E' Lat: 8.00 PHT: 67.00 MVA PHT: 3.28 Decel [place]: 3.44 Aortic Valve AoV Pk Agustin: 1.38 AoV Mn Agustin: 0.90 AoV VTI: 0.34 AoV Pk Grad: 8.00 Aov Mn Grad: 4.00 MOHAN Cont.VTI: 2.31 LVOT LVOT Pk Agustin: 0.94 LVOT Mn Agustin: 0.64 LVOT VTI: 0.25 LVOT Pk Grad: 4.00 LVOT Mn Grad: 2.00 LVOT Diam: 2.00 LVOT Area: 3.14 Diastolic Function MV Pk E: 0.79 MV Pk A: 0.96 E/A: 0.80 E'Medial: 6.09 E/E' Med: 12.90 E' Laterial: 9.79 E/E' Lat: 8.00 Right Ventricle TAPSE (mm): 19.40 TVS' Agustin: 9.57 Tricuspid Valve TR Pk Agustin: 1.87 TR Pk Grad: 14.00 RA Press: 8.00 RVSP: 22.00 Great Vessels Aorta Sinus of Valsalva: 4.19 2.0-3.[address] Ridge: 2.89 1.7-3.4 cm Ao Asc: 4.00 2.1-3.4 cm Ao Arch: 3.80 Pulmonary Veins Pulm Vein S/D 0.80 Updated in Other Vendor System with Status of Final Jose Guy MD electronically signed on 04/10/2025 4:57:52 PM with status of Final
--- OUTSIDE RECORDS SUMMARY | 2025-04-09 13:11 | XMS_ITS | Encounter Summary ---
Author Organization [facility] Address [address] [place] [address] Care Team Providers Care Casting And Locker Room Servicer Name Role Phone Ref, Has No Pcp Or Primary Care Provider Unavail able Encounter Details Date Type Department Care Team (Late st Contact Info) Description 06/27/2024 Orders Only [facility] Interventional Radiology [address] [place] [phone] Amanda Sweet MD [address] [place] [address] Social History Tobacco Use Types Packs/Day Years [...] Care Team (Late st Contact Info) Description 04/23/2025 12:15 PM EST Appointment [facility] [address] [place] [address] 05/09/2025 11:00 AM EST Follow-Up [facility] Building [facility] South 5th Floor [address] [place] [address] Pierce Au MD [address] [place] [address] 03/11/2026 9:40 AM EDT Follow-Up [facility] Renal Transplant [address] [place] [address] Louie Pablo MD [address] [place] [address] 03/11/2026 10:00 AM EDT Social Work [facility] Renal Transplant [address] [place] [address] Imani Livingston LICSW [address] [place] [address] documented as of this encounter Visit Diagnoses Not on filedocumented in this encounter Care Teams Casting And Locker Room Servicer Relationship Specialty Start Date End Date Ref, Has No Pcp Or DO NOT EDIT THIS RECORD VIA PROVIDER ON THE FLY PCP - General Technical Assistance Consultant 03/15/24 documented as of this encounter
--- OUTSIDE RECORDS SUMMARY | 2025-04-09 13:11 | XMS_ITS | Encounter Summary ---
Author Organization [employer] Address [address] [facility] 7t [place] [address] Care Team Providers Care Director Data Analytics Name Role Phone Macie Link DO Primary Care Provider [phone] Reason for Visit * Reason Comments Med Refill Pt walked in stating he doesn't have any medication for today ambien , percocet and clonazepam pt is aware he is due for them tomorrow but doesn't have any for today Encounter Details Date Type Department Care Team (Late st Contact Info) Description 04/08/2025 Refill [facility] MEDICINE [address] [place], [place] [phone] Macie Link DO [address] [place], [place] [phone] Type 2 diabetes mellitus with chronic kidney disease on chronic dialysis, with long-term current use of insulin (HCC) Social History Tobacco Use Types Packs/Day Years [...] Telephone Encounter - April Murrell RN - 04/08/2025 10:57 AM EST TC to patient, no answer. L/M stating his refills are at pharmacy and can be picked up 04/09/25. Asked patient to call me back if he was taking his medications differently then ordered. * Telephone Encounter - Sonia Gibson - 04/08/2025 10:53 AM EST Pt walked in stating he doesn't have any medication for today ambien , percocet and clonazepam pt is aware he is due for them tomorrow but doesn't have any for today documented in this encounter Plan of Treatment Upcoming Encounters Date Type Department Care Team (Late st Contact Info) Description 04/23/2025 11:15 AM EST Office Visit [facility] MEDICINE [address] [place] [address] Macie Link DO [address] [place] [address] 05/15/2025 8:30 AM EST Clinical Support [facility] MED[facility]INE [address], [place] [phone] April uMrrell RN 07/01/2025 12:45 PM EST Office Visit [facility] ADULT DENTAL [address], [place] [phone] Ftiz Shinaris [address], [place] [phone] documented as of this encounter Goals Goal Patient Goal Type Associated Problems Recent Progress Patient-Stated? Author Hemoglobin A1c < 7 Result Component 7.5( 10:32 AM EDT) No Flor Clark PharmD Note: [...] dialysis, with long-term current use of insulin (HCC) documented in this encounter Additional Health Concerns Assessment Noted Time PHQ-9 Depression Total Score: 9 09/12/19 25 11:18 AM EDT documented as of this encounter Care Teams Director Data Analytics Relationship Specialty Start Date End Date Macie Link DO [address] [place], [place] [phone] PCP - General Family Medicine 05/30/18 documented as of this encounter
--- OUTSIDE RECORDS SUMMARY | 2025-04-09 13:11 | XMS_ITS | Encounter Summary ---
Author Organization [facility] Address [address] [place] [address] Care Team Providers Care Lead Supply Worker Name Role Phone Ref, Has No Pcp Or Primary Care Provider Unavail able Encounter Details Date Type Department Care Team (Late st Contact Info) Description 09/27/[address] [facility] Interventional Radiology [address] [place] [address] Cami Garland PA [address] [place] [address] Social History Tobacco Use Types Packs/Day Years [...] Info) Description 04/23/2025 12:15 PM EST Appointment [facility] CT [address] [place], [place] [phone] 05/09/2025 11:00 AM EST Follow-Up [facility] Building Cancer Clinic South 5th Floor [address] [place] [address] Pierce Au MD [address] [place], [place] [phone] 03/11/2026 9:40 AM EDT Follow-Up [facility] Renal Transplant [address] [place] [address] Louie Pablo MD [address] [place] [address] 03/11/2026 10:00 AM EDT Social Work [facility] Renal Transplant [address] [place] [address] Imani Livingston LICSW [address] [place] [address] documented as of this encounter Visit Diagnoses Not on filedocumented in this encounter Care Teams Lead Supply Worker Relationship Specialty Start Date End Date Ref, Has No Pcp Or DO NOT EDIT THIS RECORD VIA PROVIDER ON THE FLY PCP - General Inspector And Clipper 03/15/24 documented as of this encounter
--- OUTSIDE RECORDS SUMMARY | 2025-04-09 13:11 | XMS_ITS | Encounter Summary ---
Author Organization [employer] Address [address] [facility] 7t [place] [address] Care Team Providers Care Retail District Manager Name Role Phone Macie Link DO Primary Care Provider + [phone] Reason for Visit * Reason Comments Med Refill Encounter Details Date Type Department Care Team ([facility] st Contact Info) Description 04/05/2025 Refill [facility] MEDICINE [address] [place], [place] [phone] Macie Link DO [address] [place], [place] [phone] Type 2 diabetes mellitus with other specified complication, with long-term current use of insulin (HCC) [...] Description 04/23/2025 11:15 AM EST Office Visit [facility] MEDICINE [address] [place] [address] Macie Link DO [address] [place] [address] 05/15/2025 8:30 AM EST Clinical Support [address] [address] April Murrell RN 07/01/2025 12:45 PM EST Office Visit [facility] ADULT DENTAL [address] [place] [address] Eleni Shin [address] [place] [address] documented as of this encounter Goals Goal Patient Goal Type Associated Problems Recent Progress Patient-Stated? Author Hemoglobin A1c < 7 Result Component 7.5( 10:32 AM EDT) No Flor Clark, PharmD Note: [...] complication, with long-term current use of insulin (HCC) documented in this encounter Additional Health Concerns Assessment Noted Time PHQ-9 Depression Total Score: 9 09/12/19 25 11:18 AM EDT documented as of this encounter Care Teams Retail District Manager Relationship Specialty Start Date End Date Macie Link DO [address] [place] [address] PCP - General Family Medicine 05/30/18 documented as of this encounter
--- OUTSIDE RECORDS SUMMARY | 2025-04-09 13:11 | XMS_ITS | Encounter Summary ---
Author Organization [employer] Address 75 [facility] 7t [place] [address] Care Team Providers Care Deputy County Attorney Name Role Phone Macie Link DO Primary Care Provider [phone] Reason for Visit * Reason Onset Date Comments Med Refill 04/05/2025 Encounter Details Date Type Department Care Team ([facility] st Contact Info) Description 04/05/2025 Telephone [facility] MEDICINE [address] [place], [place] [phone] Macie Link DO [address] [place] [address] Med Refill Social History Tobacco Use Types [...] Telephone Encounter - Macie Stiles LPN - 04/05/2025 11:03 AM EST Duplicate request. * Telephone Encounter - Tony Lord - 04/05/2025 10:55 AM EST TC from pt requesting medication refill. Medications needing refill : zolpidem (Ambien) 10 MG tablet To be sent to: [facility] - [place], [place] - [address] [place] [address] documented in this encounter Plan of Treatment Upcoming Encounters Date Type Department Care Team (Late st Contact Info) Description 04/23/2025 11:15 AM EST Office Visit [facility] MEDICINE [address] [place] [address] Macie Link DO [address] [place] [address] 05/15/2025 8:30 AM EST Clinical Support [facility] [address] [place] [address] April Murrell RN 07/01/2025 12:45 PM EST Office Visit [facility] ADULT DENTAL [address] [place] [address] lEeni Shin [address] [place] [address] documented as of this encounter Goals Goal Patient Goal Type Associated Problems Recent Progress Patient-Stated? Author Hemoglobin A1c < 7 Result Component 7.5( 10:32 AM EDT) No Flor Clark, Jaspreet Note: [...] documented as of this encounter Care Teams Deputy County Attorney Relationship Specialty Start Date End Date Macie Link DO [address] [place] [address] PCP - General Family Medicine 05/30/18 documented as of this encounter
--- OUTSIDE RECORDS SUMMARY | 2025-04-09 13:11 | XMS_ITS | Encounter Summary ---
Author Organization [employer] Address 75 [facility] 7t [place] [address] Care Team Providers Care Photographic Hand Developer Name Role Phone Macie Link DO Primary Care Provider Flor Clark PharmD Unavailable [phone] Reason for Visit * Reason Comments Med Refill Encounter Details Date Type Department Care Team (Late st Contact Info) Description 12/14/2024 Refill [facility] MED[facility]INE [address] [place] [address] Macie Link DO [address] [place] [address] Chronic neck pain Social History Tobacco Use [...] Description 04/23/2025 11:15 AM EST Office Visit [facility] MED[facility]INE [address] [place] [phone] Macie Link DO [address] [place] [address] 05/15/2025 8:30 AM EST Clinical Support [facility] [address] [place] [phone] April Murrell RN 07/01/2025 12:45 PM EST Office Visit [facility] ADULT DENTAL [address] [place] [address] Eleni Shin [address] [place] [address] documented as of this encounter Goals Goal [...] documented as of this encounter Care Teams Photographic Hand Developer Relationship Specialty Start Date End Date Macie Link DO [address] [place] [address] PCP - General Family Medicine 05/30/18 Flor Clark PharmD [address] [place] [address] Pharmacist Internal Medicine 08/18/23 02/20/25 documented as of this encounter
--- OUTSIDE RECORDS SUMMARY | 2025-04-09 13:11 | XMS_ITS | Encounter Summary ---
Author Organization [employer] Address 75 [facility] 7t [place] [address] Care Team Providers Care Drywall Worker Name Role Phone Macie Link DO Primary Care Provider [phone] Flor Clark PharmD Unavailable [phone] Reason for Visit * Reason Comments Med Refill Encounter Details Date Type Department Care Team ([facility] st Contact Info) Description 05/24/2024 Refill [facility] MEDICINE [address] [place] [address] Macie Link DO [address] [place] [address] Anxiety Social History Tobacco Use Types Packs/Day [...] Description 04/23/2025 11:15 AM EST Office Visit [facility] MEDICINE [address] [place] [address] Macie Link DO [address] [place] [address] 05/15/2025 8:30 AM EST Clinical Support [facility] MEDICINE [address] [place] [address] April Murrell RN 07/01/2025 12:45 PM EST Office Visit [facility] ADULT DENTAL [address] [place] [address] Eleni Shin [address] [place] [address] documented as of this encounter Goals Goal [...] documented as of this encounter Care Teams Drywall Worker Relationship Specialty Start Date End Date Macie Link DO [address] [place] [address] PCP - General Family Medicine 05/30/18 Flor Clark PharmD [address] [place] [address] Pharmacist Internal Medicine 08/18/23 02/20/25 documented as of this encounter
--- OUTSIDE RECORDS SUMMARY | 2025-04-09 13:11 | XMS_ITS | Encounter Summary ---
Author Organization [employer] Address [address] [facility] 7t [place] [address] Care Team Providers Care Operator Coating Furnace Name Role Phone Macie Link DO Primary Care Provider [phone] Flor Clark PharmD Unavailable [phone] Reason for Visit * Reason Comments Med Refill Encounter Details Date Type Department Care Team (Late st Contact Info) Description 11/05/2023 Refill [facility] [address] [place] [address] Macie Link DO [address] [place] [address] Asthma, unspecified asthma severity, unspecified whether complicated, [...] Description 04/23/2025 11:15 AM EST Office Visit [facility] [address] [place] [address] Macie Link DO [address] [place] [address] 05/15/2025 8:30 AM EST Clinical Support [address] [address] April Murrell RN 07/01/2025 12:45 PM EST Office Visit [facility] ADULT DENTAL [address] [place] [address] Eleni Shin [address] [place] [address] documented as of this encounter Goals Goal Patient Goal Type Associated Problems Recent Progress Patient-Stated? Author Hemoglobin A1c < 7 Result Component 7.5( 10:32 AM EDT) No Flor Clark PharmD Note: A1c value is falsely low d/t dialysis. Ordered fructosamine value 08/18/23 and once resulted will use to calculate a more accurate A1c Record your blood sugar as directed Result Component No Flor ClarkJaspreet Note: Use CGM, ensuring sensor is scanned [...] documented as of this encounter Care Teams Operator Coating Furnace Relationship Specialty Start Date End Date Macie Link DO [address] [place] [address] PCP - General Family Medicine 05/30/18 Flor Clark PharmD [address] [place] [address] Pharmacist Internal Medicine 08/18/23 02/20/25 documented as of this encounter
--- OUTSIDE RECORDS SUMMARY | 2025-04-09 13:11 | XMS_ITS | Clinical Summary ---
Author Organization [employer] Address [address] [facility] [address] [place] [address] Care Team Providers Care Cocoa Milling Machine Operator Name Role Phone Macie Link DO Primary Care Provider [phone] Allergies No known active allergies Medications * [...] ON MON, TUE & Tue 023 Active amiodarone (Pacerone) 200 MG tablet Take 200 mg by mouth Once per day. 023 Active carvedilol (Coreg) 12.5 MG tablet 023 Active Methoxy PEG-Epoetin Beta (MIRCERA IJ) 75 mcg. 024 Active Continuous Glucose Radiosonde Specialist (FreeStyle Gurmeet 2 [place]) deviceIndicatio ns:Type 2 diabetes mellitus with chronic kidney disease on chronic dialysis, with long-term current use of insulin (HCC) Use for continuous glucose monitoring per package directions 1 each 024 Active ipratropium (Atrovent) 0.03 % nasal spray USE 2 SPRAYS IN EACH NOSTRIL THREE TIMES DAILY DIRECTED 30 mL 11 024 Active colchicine 0.6 MG tabletIndicatio ns:Pericardial effusion Take 1/2 tablet once daily. 45 tablet 3 024 Active Accu-Chek Softclix Lancets lancetsIndicati ons:Type 2 diabetes mellitus with other specified complication, with long-term current use of insulin (HCC) TEST BLOOD SUGAR 3 TIMES PER DAY 100 each 025 Active Alcohol Swabs (Easy Touch Alcohol Prep Medium) 70 % padsIndications :Type 2 diabetes mellitus with other specified complication, with long-term current use of insulin (HCC) Use up to 4 daily as directed 100 each 025 Active glucose blood (FreeStyle Precision Andrés Test) test stripIndication s:Type 2 diabetes mellitus with other specified complication, with long-term current use of insulin (HCC) Use to test blood sugar up to 3 times daily, as directed 100 each 025 Active Viagra 100 MG tabletIndicatio ns:Erectile dysfunction, unspecified erectile dysfunction type TAKE 1 TABLET 1 HOUR BEFORE SEXUAL RELATIONS ONCE DAILY NEEDED. 10 tablet 025 Active levothyroxine (Synthroid, Levoxyl) 137 MCG tablet Take 1 tablet by mouth every morning, 30 minutes before any other medications or food. 90 tablet 3 025 Active gabapentin (Neurontin) 100 MG capsule Take 100 mg by mouth 2 times daily. 025 Active cetirizine (ZyrTEC) 10 MG tablet TAKE 1/2 TABLET BY MOUTH ONCE DAILY 15 tablet 10 025 Active albuterol (Ventolin HFA) 108 (90 Base) MCG/ACT inhalerIndicati ons:Asthma, unspecified asthma severity, unspecified whether complicated, unspecified whether persistent INHALE 2 PUFFS BY MOUTH EVERY 4 TO 6 HOURS NEEDED FOR WHEEZING OR SHORTNESS OF BREATH 18 g 11 025 Active sucralfate (Carafate) 1 g tablet TAKE 1 TABLET BY MOUTH THREE TIMES DAILY BEFORE MEALS AND AT BEDTIME FOR 14 DAYS 025 Active omeprazole (PriLOSEC) [address] capsule TAKE 1 CAPSULE BY MOUTH TWICE DAILY IN THE MORNING AND IN THE EVENING WITH FOOD 025 Active lidocaine (Lidoderm) 5 % patchIndication s:Chronic neck pain .APPLY 1 PATCH TOPICALLY TO SKIN, LEAVE ON FOR 12 HOURS AND OFF FOR 12 HOURS DIRECTED 30 patch 5 Active Semaglutide, 2 MG/DOSE, (Ozempic, 2 MG/DOSE,) 8 MG/3ML solution pen-injectorInd ications:Type 2 diabetes mellitus with chronic kidney disease on chronic dialysis, with long-term current use of insulin ([facility]) Inject 0.75 mL (2 mg) under the skin 1 (one) time per week. 3 mL Active insulin glargine (Lantus SoloStar) 100 UNIT/ML penIndications: Type 2 diabetes mellitus with chronic kidney disease on chronic dialysis, with long-term current use of insulin ([facility]) INJECT 20 UNITS SUBCUTANEOUSLY ONCE DAILY 15 mL 025 Active atorvastatin (Lipitor) 80 MG tablet Take 1 tablet (80 mg) by mouth at bedtime. 90 tablet 1 025 Active cyanocobalamin (Vitamin B-12) 1000 MCG tabletIndicatio ns:B12 deficiency TAKE 1 TABLET BY MOUTH TWICE A WEEK IN THE MORNING (TUESDAY AND TUESDAY) 8 tablet 11 025 Active Diclofenac Sodium 1 % gel APPLY 2 GRAMS TOPICALLY TO AFFECTED AREA(S) TWICE DAILY NEEDED FOR PAIN 100 g 2 025 Active amLODIPine (Norvasc) 10 MG tabletIndicatio ns:Primary hypertension TAKE 1 TABLET BY MOUTH EVERY MORNING 90 tablet 1 025 Active clotrimazole (Lotrimin) 1 % cream APPLY TOPICALLY TO THE AFFECTED AREA(S) TWICE DAILY IN THE MORNING AND IN THE EVENING 60 g 025 Active Embecta Pen Needle Katerina 32G X 4 MM miscIndications :Type 2 diabetes mellitus with other specified complication, with long-term current use of insulin ([facility]) USE DIRECTED FOUR TIMES DAILY 100 each 11 025 Active zolpidem (Ambien) 10 MG tabletIndicatio ns:Anxiety TAKE 1 TABLET BY MOUTH AT BEDTIME NEEDED FOR SLEEP FOR UP TO 28 DAYS 28 tablet 025 Active clonazePAM (KlonoPIN) 1 MG tabletIndicatio ns:Anxiety Take 1 tablet (1 mg) by mouth every 12 (twelve) hours if needed for anxiety for up to 28 days. Do not start before April 09, 2025. 56 tablet 025 2024 Active oxyCODONE-aceta minophen (Percocet) 10-325 MG tabletIndicatio ns:Chronic neck pain Take 1 tablet by mouth every 4 (four) hours if needed for severe pain for up to 28 days. Do not start before April 09, 2025. 168 tablet 025 2024 Active Continuous Glucose Sensor (FreeStyle Gurmeet 2 Sensor) miscIndications :Type 2 diabetes mellitus with chronic kidney disease on chronic dialysis, with long-term current use of insulin (HCC) USE DIRECTED TO TEST BLOOD SUGAR EVERY 8 HOURS CHANGE EVERY 14 DAYS 6 each 3 Active Continuous Glucose Sensor (FreeStyle Gurmeet 2 Sensor) miscIndications :Type 2 diabetes mellitus with chronic kidney disease on chronic dialysis, with long-term current use of insulin (HCC) USE DIRECTED TO TEST BLOOD SUGAR EVERY 8 HOURS CHANGE EVERY 14 DAYS 6 each 3 024 2024 Discontinued amLODIPine (Norvasc) 10 MG tabletIndicatio ns:Primary hypertension TAKE 1 TABLET BY MOUTH EVERY MORNING 90 tablet 1 025 2024 Discontinued BD Pen Needle Katerina Ultrafine 32G X 4 MM miscIndications :Type 2 diabetes mellitus with other specified complication, with long-term current use of insulin (HCC) USE DIRECTED FOUR TIMES DAILY 100 each 3 025 2024 Discontinued clotrimazole (Lotrimin) 1 % cream APPLY TOPICALLY TO THE AFFECTED AREA(S) TWICE DAILY IN THE MORNING AND IN THE EVENING 60 g 025 2024 Discontinued(R eorder (will not trigger notification to Pharmacy)) oxyCODONE-aceta minophen (Percocet) 10-325 MG tabletIndicatio ns:Chronic neck pain TAKE 1 TABLET BY MOUTH EVERY 4 HOURS NEEDED FOR SEVERE PAIN FOR UP TO 28 DAYS 168 tablet 025 2024 Discontinued(R eorder (will not trigger notification to Pharmacy)) clonazePAM (KlonoPIN) 1 MG tabletIndicatio ns:Anxiety TAKE 1 TABLET BY MOUTH TWICE DAILY IN THE MORNING AND AT BEDTIME NEEDED FOR ANXIETY 56 tablet 025 2024 Discontinued(R eorder (will not trigger notification to Pharmacy)) zolpidem (Ambien) 10 MG tabletIndicatio ns:Anxiety Take 1 tablet (10 mg) by mouth if needed at bedtime for sleep for up to 28 days. Do not start before March 12, 2025. 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[facility]) 10/23/2024 Hemiplegia and hemiparesis f ollowing cerebral infarction affecting left non-dominant side ([facility]) 05/08/2024 Hypertensive heart and chron ic kidney disease with heart failure and with stage 5 chronic kidney disease, or end stage renal disease 05/08/2024 intermediate (current) use of insulin ([facility]) 02/2024 Type 2 diabetes mellitus wit h diabetic neuropathy, unspecified 05/08/2024 Unspecified combined systoli c (congestive) and diastolic (congestive) heart failure 05/08/2024 Hyperlipidemia, unspecified 05/08/2024 Hypothyroidism, unspecified 05/08/2024 Iron deficiency anemia, unspecified 05/08/2024 Acquired absence of kidney 03/23/2024 Personal history of nicotine dependence 03/23/20 24 Anemia in chronic kidney disease 03/23/2024 Old myocardial infarction 03/23/2024 Unspecified atrial fibrillation ([facility]) 2023 H/O umbilical hernia repair 03/05/2024 Renal cell carcinoma ([facility]) 03/05/2024 Type 2 diabetes mellitus wit h [...] Patient to reach out to [facility] team as needed, and Comply with medication. Mild anxiety 05/31/2023 Atrial flutter (CMS/HCC) 02/03/2023 CAD (coronary artery disease) 02/03/2023 Cardiomyopathy 02/03/2023 Chronic systolic congestive heart failure 2022 Tubular adenomas 02/03/2023 Diabetic nephropathy 02/03/2023 Diastolic dysfunction 02/03/2023 History of neuroendocrine cancer 02/03/2023 Low back pain 02/03/2023 Speech abnormality 02/03/2023 Mild protein-calorie malnutrition 11/15/2022 Anemia 08/30/2022 Inferior myocardial infarction 08/30/2022 Dependence on renal dialysis 08/30/2022 Pericardial effusion 08/30/2022 Secondary hyperparathyroidism of renal origin Unspecified cirrhosis of liver ([facility]/HCC) 023 Clear cell renal cell carcinoma ([facility]) 2022 Chronic gastroesophageal reflux disease 06/23/19 S/p nephrectomy 06/23/2022 History of cholecystectomy 06/23/2022 Hypothyroidism 06/23/2022 History of CVA (cerebrovascular accident) 2022 ESRD on hemodialysis ([facility]) 01/05/2022 Assessment & Plan (12/23/2022 11:10 AM [...] Diagnosed Date Resolved Date Acute kidney injury superimposed on CKD 02/03/2023 02/03/2023 Depression 02/03/2023 02/03/2023 Radiculitis 02/03/2023 05/05/2023 Rapid atrial fibrillation ([facility]) 12/23/2022 02/03/2023 Assessment & Plan (12/23/2022 11:09 AM EDT): [...] 1 07/06/2022 End stage renal disease 12/17/2021 11/2022 Major depression, recurrent, chronic 06/02/2015 05/31/2023 Encounters Date Type Department Care Team Description 04/08/2025 Refill [facility] [address] [place] [address] Macie Link DO Type 2 diabetes mellitus with chronic kidney disease on chronic dialysis, with long-term current use of insulin (HCC) 04/05/2025 Refill [facility] [address] [place] [address] Macie Link DO Chronic neck pain; Anxiety 04/05/2025 Telephone [facility] [address] [place] [address] Macie Link DO Med Refill 04/05/2025 Refill [facility] [address] [place] [address] Macie Link DO Anxiety; Chronic neck pain 04/05/2025 Refill [facility] [address] [place] [address] Macie Link DO Type 2 diabetes mellitus with other specified complication, with long-term current use of insulin ([facility]) 03/28/2025 2:30 PM EDT Office Visit [facility] ADULT DENTAL [address] [place] [address] Justin Anne, DMD 03/25/2025 Refill [facility] [address] [place] [address] Macie Link DO 03/19/2025 Refill [facility] [address] [place] [address] Macie Link DO Primary hypertension 03/07/2025 Refill [facility] [address] [place] [address] Macie Link DO Chronic neck pain; Anxiety 03/05/2025 Telephone [facility] [address] [place] [address] Macie Link DO 02/24/2025 Refill [facility] [address] [place] [address] Macie Link DO B12 deficiency 02/23/2025 Refill [facility] [address] [place] [address] Macie Link DO 02/21/2025 Telephone [facility] [address] [place] [address] Macie Link DO telephone call; Prior Authorization ([facility] PA: Lidocaine Patches) 02/21/2025 Travel 02/19/2025 Travel 02/12/2025 9:00 AM EDT Clinical Support [facility] [address] [place] [address] April Murrell RN Long-term current use of opiate analgesic (Primary Dx); Long-term current use of benzodiazepine 02/12/2025 Travel 02/11/2025 Telephone [facility] [address] [place] [address] Macie Link, Call Back Request 02/06/2025 Telephone [facility] [address] [place] [address] Macie Link DO telephone call 02/05/2025 Refill [facility] [address] [place] [address] Macie Link DO Anxiety; Chronic neck pain 01/30/2025 Telephone [facility] [address] [place] [address] Macie Link DO Appointment Request 01/23/2025 Refill [facility] [address] [place] [address] Macie Link DO Chronic GERD 01/18/2025 Refill [facility] [address] [place] [address] Macie Link DO Chronic neck pain 01/11/2025 Telephone [facility] [address] [place] [address] Macie Link DO Med Refill 01/10/2025 Refill [facility] [address] [place] [address] Macie Link DO Chronic neck pain 01/10/2025 Refill [facility] [address] [place] [address] Macie Link DO Anxiety 01/10/2025 Refill [facility] [address] [place] [address] Sobia Crooks MD Anxiety 01/10/2025 Refill [facility] [address] [place] [address] Macie Link DO Asthma, unspecified asthma severity, unspecified whether complicated, unspecified whether persistent 01/08/2025 9:00 AM EDT Office Visit [facility] [address] [place] [address] Eleni Shin Advanced periodontitis (Primary Dx); Dental calculus; Dental plaque from Last 3 Months Immunizations Immunization Administration [...] Sign Reading Time Taken Comments Blood Pressure 138/74 03/28/2025 2:05 PM EDT Pulse 70 09/26/2024 2:09 PM [...] Description 04/23/2025 11:15 AM EST Office Visit [facility] [address] [place] [phone] Macie Link DO [address] [place] [address] 05/15/2025 8:30 AM EST Clinical Support [facility] [address] [place] [phone] April Murrell, PADILLA 07/01/2025 12:45 PM EST Office Visit [facility] [address] [place] [address] Eleni Shin [address] [place] [address] Health Maintenance Due Date Last Done Comments CT Colonography 1959 FIT DNA/Cologuard 1959 FIT 1959 FOBT 1959 Sigmoidoscopy 1959 Diabetes: Foot Exam 09/21/1969 Hepatitis A Vaccines (1 of 2 - Risk 2-dose series) 09/21/1978 Dental Oral Exam 09/18/2024 03/19/2024, , 08/20/2013, Additional history exists Colonoscopy 03/11/2025 02/23/2022, 02/25/2016 Colorectal Cancer Screening 03/11/2025 Depression Monitoring 03/13/2025 09/11/2024, 025 Dental Prophylaxis 05/17/2025 11/14/2024, 02/09/2013 Diabetes: Hemoglobin A1C 05/23/2025 025, 09/14/2024, 09/11/2024, Additional history exists COVID-19 Vaccine ( season) 2025 03/06/2025, 03/08/2023, 03/12/2022, Additional history exists Alcohol/Substance Use Screening 09/11/2025 09/11/2024 SDOH Screening 09/11/2025 09/11/2024 Lipid Panel 09/14/2025 09/14/2024, 06/0 10/2023, 12/09/2020 Eye Exam 12/28/2025 12/28/2024, 08/0 05/2024, 12/28/2024, Additional history exists Dental X-Ray: Bitewings 01/09/2026 01/09/20, 01/02/2025, 03/19/2024, Additional history exists Tobacco Screening 03/28/2026 03/28/2025 Dental X-Ray: Full Mouth 03/20/2027 03/19/2024, 11/27 [...] 05/28/2022, Additional history exists Influenza Vaccine Completed 02/20/2025, , 02/03/2023, Additional history exists HIB Vaccines Aged Out [...] Procedure Name Priority Date/Time Associated Diagnosis Comments 8 MFF(V)L RESIN-BASED COMPOSITE - 3 SURF, ANTERIOR Routine 03/28/2025 2:30 PM EDT CASE PRESENTATION, DETAILED AND EXTENSIVE TREATMENT PLANNING Routine 03/28/2025 2:30 PM EDT POCT GLYCATED HEMOGLOBIN, TOTAL Routine 02/21/2025 10:32 AM EDT Type 2 diabetes mellitus with chronic kidney disease on chronic dialysis, with long-term current use of insulin (CMS/HCC) DRUG TOXICOLOGY MONITORING BASE PANEL, WITH CONFIRMATION, [...] EDT Advanced periodontitis Dental calculus Dental plaque PROPHYLAXIS - ADULT Routine 11/14/2024 2 :00 PM EDT Advanced periodontitis Dental calculus Dental plaque Gingival bleeding Acute gingival inflammation LIPID PANEL, STANDARD Routine 09/14/2024 10:51 AM [...] to Health Maintenance Results * (ABNORMAL) POCT Hgb A1c (02/21/2025 10:32 AM EDT) Hemoglobin A1C 7.5(A) 4.0 - 5.7 % Blood 02/21/2025 10:3 2 AM EDT Macie Ervindestineyalfonso DO POINT OF CARE TEST ENTER/EVENS T ORDERABLES Final Result * Drug Toxicology Monitoring Base Panel, w/Confirmation, Oral Fluid (02/12/2025 9:15 AM EDT) Pathologist [facility] Drug Tox Panel with Confirmation SEE NOTE [facility] Comment: Test Ordered Result Cutoff DRUG [...] oxycodone.Note 2 For additional information, please refer tohttp://education.UrbnDesignz/faq/KIK073 (This linkis being provided for informational/ educational purposesonly.) This drug testing is for medical treatment only.Analysis was performed as non-forensic testing and theseresults should be used only by healthcare providers torender diagnosis or treatment, or to monitor progress ofmedical conditions. For assistance with interpreting thesedrug results, please contact a [facility] ToxicologySpecialist: [phone] ( ), M-F, 8am-6pmEST. These tests were developed and their analyticalperformance characteristics have been determined by [employer]. They have not been cleared or approved by theA. These assays have been validated pursuant to the CLIAregulations and are used for clinical p urposes.PERFORMING SITE:[facility] [employer], [address] [place] [address] Human Resources Recruiter: PATRICKW. DHARA MD,PHD, CLIA: [id number] Oral Fluid Oral cavity structure / Unknown 02/12/2025 9:15 AM EDT 02/12/2025 5:09 PM EDT us Macie Link DO LAB BODY FLUIDS AND STOOLS O RDERABLES Final Result [facility] [address] [place] [address] [phone] * (ABNORMAL) Lipid Panel, Standard (09/14/2024 10:51 AM EDT) Triglycerides 321(H) <150 mg/dL [facility] Comment:Desirable Triglyceri de: less than 150 mg/dLBorderline High Triglyceride 150-199 mg/dLHigh Triglyceride: 200-499 mg/dLVery High Triglyceride: greater than or equal to 5OO mg/dL Cholesterol 98 <200 mg/dL [facility] Comment:Desirable Cholestero l: less than 200 mg/dLBorderline High Cholesterol: 200-239 mg/dLHigh Cholesterol: greater than 239 mg/dL LDL Cholesterol Calculated 7 <100 mg/dL [facility] Comment:Desirable LDL: less than 100 mg/dLNear Optimal/Above Optimal LDL: 110- 129 mg/dLBorderline High LDL: 130-159 mg/dLHigh LDL: 160-189 mg/dLVery High LDL: greater than or equal to 190 mg/dL HDL Cholesterol 27(L) >40 mg/dL [facility] Comment:Desirable HDL: great er than 40 mg/dL Note: This HDL assay may give artificially low results in patients with liver disease. Blood Venous blood specimen / Unknown 09/14/2024 10:51 AM EDT 09/14/2024 8:17 PM EDT Macie Link DO LAB BLOOD ORDERABLES Final R esult [facility] [address] [place] [address] [phone] * Hm Colonoscopy (02/23/2022 7:37 AM EDT) Historical Provider HEALTH MAINTENANCE Final Result * HEPATITIS C AB W/REFL TO HCV RNA, QN, PCR (12/09/2020 10:36 AM EDT) HEPATITIS C ANTIBODY NON-REACT ALBINO NON-REACT ALBINO [facility] INDEX 0.01 <1.00 [facility] Comment: HCV antibody was non-reactive. There is no laboratory evidence of HCV infection. In most cases, no further action is required. However, if recent HCV exposure is suspected, a test for HCV RNA (test code 73631) is suggested. For additional information please refer to http://Pentaho.eoSemi/faq/NNG48c0 (This link is being provided for informational/ educational purposes only.) 12/09/2020 10:3 6 AM EDT us Macie Link DO HISTORICAL/NON ORDERABLE LAB S Final Result [facility] [address] from Last 3 Months or Most Recently Relevant to Health Maintenance Insurance [facility] [facility]-[employer] Care Teams Cocoa Milling Machine Operator Relationship Specialty Start Date End Date Macie Link DO [address] [place] [id number] PCP - General Family Medicine 05/30/18
--- OUTSIDE RECORDS SUMMARY | 2025-04-09 13:11 | XMS_ITS | Encounter Summary ---
Author Organization [employer] Address [address] [facility] [address] [place] [address] Care Team Providers Care Popcorn Vendor Name Role Phone FaribaMacie Primary Care Provider [phone] Flor Clark PharmD Unavailable [phone] Reason for Visit * Reason Onset Date Comments cx waiting period 12/07/2024 Encounter Details Date Type Department Care Team (Late st Contact Info) Description 12/07/2024 Telephone [facility] ADULT D[facility] [address] [place] [address] Justin Anne, SHAY [address] [place] [address] cx waiting period Social History Tobacco Use [...] Description 04/23/2025 11:15 AM EST Office Visit [facility] [address] [place] [phone] Macie Link DO [address] [place] [address] 05/15/2025 8:30 AM EST Clinical Support [facility] [address] [place] [phone] April Murrell RN 07/01/2025 12:45 PM EST Office Visit [facility] ADULT [facility] [address] [place] [address] Eleni Shin [address] [place] [address] documented as of this encounter Goals Goal Patient Goal Type Associated Problems Recent Progress Patient-Stated? Author Hemoglobin A1c < 7 Result Component 7.5( 5 10:32 AM EDT) No Flor Clark, Jaspreet [...] documented as of this encounter Care Teams Popcorn Vendor Relationship Specialty Start Date End Date Macie Link DO [address] [place] [address] PCP - General Family Medicine 05/30/18 Flor Clark, Jaspreet [address] [place] [address] Pharmacist Internal Medicine 08/18/23 02/20/25 documented as of this encounter
--- OUTSIDE RECORDS SUMMARY | 2025-04-09 13:11 | XMS_ITS | Encounter Summary ---
Author Organization [email or web address] Address 75 [facility] 7t [place] [address] Care Team Providers Care Barge Master Name Role Phone Macie Link DO Primary Care Provider [phone] Reason for Visit * Reason Onset Date Comments Med Refill 04/05/2025 Encounter Details Date Type Department Care Team ([facility] st Contact Info) Description 04/05/2025 Refill [facility] MEDICINE [address] [place], [place] [phone] Macie Link DO [address] [place] [address] Anxiety; Chronic neck pain Social History Tobacco [...] encounter Miscellaneous Notes * Telephone Encounter - Tony Lord - 04/05/2025 10:54 AM EST TC from pt requesting medication refill. Medications needing refill : oxyCODONE-acetaminophen (Percocet) 10-325 MG tablet clonazePAM (KlonoPIN) 1 MG tablet To be sent to: [facility] - [place], [place] - [address] [place] [address] documented in this encounter Plan of Treatment Upcoming Encounters Date Type Department Care Team ([facility] st Contact Info) Description 04/23/2025 11:15 AM EST Office Visit [facility] MEDICINE [address] [place] [address] Macie Link DO [address] [place] [address] 05/15/2025 8:30 AM EST Clinical Support [facility] MEDICINE [address] [place] [address] April Murrell RN 07/01/2025 12:45 PM EST Office Visit [facility] ADULT DENTAL [address] [place] [address] Eleni Shin 230 [place] [address] documented as of this encounter Goals Goal Patient Goal Type Associated Problems Recent Progress Patient-Stated? Author Hemoglobin A1c < 7 Result Component 7.5( 5 10:32 AM EDT) No Flor Clark PharmD [...] documented as of this encounter Care Teams Barge Master Relationship Specialty Start Date End Date Macie Link DO [address] [place] [address] PCP - General Family Medicine 05/30/18 documented as of this encounter
--- OUTSIDE RECORDS SUMMARY | 2025-04-09 13:11 | XMS_ITS | Encounter Summary ---
Author Organization [employer] Address 75 [facility] 7t [place] [address] Care Team Providers Care Die Cast Technician Name Role Phone Macie Link DO Primary Care Provider [phone] Flor Clark PharmD Unavailable [phone] Encounter Details Date Type Department Care Team ([facility] st Contact Info) Description 06/14/2023 Telephone [facility] MEDICINE [address] [place], [place] [phone] Macie Link DO [address] [place] [address] Social History Tobacco Use Types Packs/Day Years [...] 11:15 AM EST Office Visit [facility] MEDICINE [address] [place] [address] Macie Link DO 230 [place] [address] 05/15/2025 8:30 AM EST Clinical Support [facility] MEDICINE [address] [place] [address] April Murrell RN 07/01/2025 12:45 PM EST Office Visit [facility] ADULT DENTAL [address] [place] [address] Eleni Shin [address] [place] [address] documented as of this encounter Visit Diagnoses Not on filedocumented in this encounter Additional Health Concerns Assessment Noted Time PHQ-9 Depression Total Score: 13 024 9:15 AM EST documented as of this encounter Care Teams Die Cast Technician Relationship Specialty Start Date End Date Macie Link DO [address] [place] [address] PCP - General Family Medicine 05/30/18 Flor Clark PharmD [address] [place] [address] Pharmacist Internal Medicine 08/18/23 02/20/25 documented as of this encounter
--- OUTSIDE RECORDS SUMMARY | 2025-04-09 13:11 | XMS_ITS | Encounter Summary ---
Author Organization [employer] Address 75 [facility] 7t [place] [address] Care Team Providers Care Bus Boy Name Role Phone Macie Link DO Primary Care Provider [phone] Flor Clark PharmD Unavailable [phone] Reason for Visit * Reason Comments Med Refill Encounter Details Date Type Department Care Team ([facility] st Contact Info) Description 03/29/2024 Refill [facility] MEDICINE [address] [place] [address] Macie Link DO [address] [place] [address] Chronic neck pain Social History Tobacco Use [...] Description 04/23/2025 11:15 AM EST Office Visit [facility] MEDICINE [address] [place] [address] Macie Link DO 230 [place] [address] 05/15/2025 8:30 AM EST Clinical Support [facility] MEDICINE [address] [place] [address] April Murrell RN 07/01/2025 12:45 PM EST Office Visit [facility] ADULT DENTAL [address] [place] [address] Eleni Shin [address] [place] [address] documented as of this encounter Goals Goal [...] documented as of this encounter Care Teams Bus Boy Relationship Specialty Start Date End Date Macie Link DO [address] [place] [address] PCP - General Family Medicine 05/30/18 Flor Clark PharmD [address] [place] [address] Pharmacist Internal Medicine 08/18/23 02/20/25 documented as of this encounter
--- OUTSIDE RECORDS SUMMARY | 2025-04-09 13:11 | XMS_ITS | Encounter Summary ---
Author Organization [employer] Address 75 [facility] 7t [place] [address] Care Team Providers Care Cigar Binder Name Role Phone FaribaCarissaMacie Primary Care Provider Flor Clark PharmD Unavailable Encounter Details Date Type Department Care Team ([facility] st Contact Info) Description 07/25/2024 Telephone [facility] ADULT DENTAL [address] [place] [address] Justin Anne, DMD [address] [place] [address] Social History Tobacco Use Types Packs/Day Years [...] 11:15 AM EST Office Visit [facility] MEDICINE [address] [place] [address] Macie Link DO 230 [place], [place] [phone] 05/15/2025 8:30 AM EST Clinical Support [facility] MEDICINE [address] [place] [address] Aprli Murrell RN 07/01/2025 12:45 PM EST Office Visit [facility] ADULT DENTAL [address] [place] [address] Eleni Shin [address] [place] [address] documented as of this encounter Goals Goal [...] documented as of this encounter Care Teams Cigar Binder Relationship Specialty Start Date End Date Macie Link DO 230 [place] [address] PCP - General Family Medicine 05/30/18 Flor Clark PharmD [address] [place] [address] Pharmacist Internal Medicine 08/18/23 02/20/25 documented as of this encounter
--- OUTSIDE RECORDS SUMMARY | 2025-04-09 13:11 | XMS_ITS | Encounter Summary ---
Author Organization [employer] Address 75 [facility] 7t [place] [address] Care Team Providers Care Bullet Assembly Press Setter Operator Name Role Phone Macie Link DO Primary Care Provider [phone] Flor Clark PharmD Unavailable [phone] Reason for Visit * Reason Comments Med Refill Encounter Details Date Type Department Care Team (Late st Contact Info) Description 06/01/2023 Refill [facility] MEDICINE [address] [place] [address] Macie Link DO 230 [place] [address] Anxiety; Chronic neck pain Social History Tobacco [...] Description 04/23/2025 11:15 AM EST Office Visit [facility] MEDICINE [address] [place] [address] Macie Link DO [address] [place] [address] 05/15/2025 8:30 AM EST Clinical Support [facility] MEDICINE [address] [place] [address] April Murrell RN 07/01/2025 12:45 PM EST Office Visit [facility] ADULT DENTAL [address] [place] [address] Eleni Shin [address] [place] [address] documented as of this encounter Visit Diagnoses Diagnosis Anxiety Anxiety state, unspecified Chronic neck pain Cervicalgia documented in this encounter Additional Health Concerns Assessment Noted Time PHQ-9 Depression Total Score: 13 024 9:15 AM EST documented as of this encounter Care Teams Bullet Assembly Press Setter Operator Relationship Specialty Start Date End Date Macie Link DO [address] [place] [address] PCP - General Family Medicine 05/30/18 Flor Clark, Jaspreet [address] [place] [address] Pharmacist Internal Medicine 08/18/23 02/20/25 documented as of this encounter
--- OUTSIDE RECORDS SUMMARY | 2025-04-09 13:11 | XMS_ITS | Encounter Summary ---
Author Organization [employer] Address 75 [facility] 7t [place] [address] Care Team Providers Care Creative/Art Director Name Role Phone Macie Link DO Primary Care Provider [phone] Flor Clark PharmD Unavailable [phone] Reason for Visit * Reason Comments Med Refill Encounter Details Date Type Department Care Team (Late st Contact Info) Description 12/13/2023 Refill [facility] MEDICINE [address] [place] [address] Macie Link DO [address] [place] [address] Anxiety; Chronic neck pain Social History Tobacco [...] Description 04/23/2025 11:15 AM EST Office Visit [facility] MEDICINE [address] [place] [address] Macie Link DO [address] [place] [address] 05/15/2025 8:30 AM EST Clinical Support [address] [address] April Murrell RN 07/01/2025 12:45 PM EST Office Visit [facility] ADULT DENTAL [address] [place] [address] Eleni Sihn [address] [place] [address] documented as of this encounter Goals Goal [...] documented as of this encounter Care Teams Creative/Art Director Relationship Specialty Start Date End Date Macie Link DO [address] [place] [address] PCP - General Family Medicine 05/30/18 Flor Clark PharmD [address] [place] [address] Pharmacist Internal Medicine 08/18/23 02/20/25 documented as of this encounter
--- OUTSIDE RECORDS SUMMARY | 2025-04-09 13:11 | XMS_ITS | Encounter Summary ---
Author Organization [facility] Address [address] [facility] 7t [place] [address] Care Team Providers Care Mental Health Specialist Name Role Phone Macie Link DO Primary Care Provider Flor Clark PharmD Unavailable [phone] Reason for Visit * Reason Comments Med Refill Encounter Details Date Type Department Care Team (Late st Contact Info) Description 12/13/2024 Refill [facility] MEDICINE [address] [place] [address] Macie Link DO 230 [place] [address] Chronic neck pain Social History Tobacco Use [...] Description 04/23/2025 11:15 AM EST Office Visit [facility] MEDICINE [address] [place] [address] Macie Link DO 230 [place] [address] 05/15/2025 8:30 AM EST Clinical Support [facility] MEDICINE [address] [place] [address] April Murrell RN 07/01/2025 12:45 PM EST Office Visit [facility] ADULT DENTAL [address] [place] [address] Eleni Shin [address] [place] [address] documented as of this encounter Goals Goal [...] documented as of this encounter Care Teams Mental Health Specialist Relationship Specialty Start Date End Date Macie Link DO 230 [place] [address] PCP - General Family Medicine 05/30/18 Flor Clark PharmD 230 [place] [address] Pharmacist Internal Medicine 08/18/23 02/20/25 documented as of this encounter
--- OUTSIDE RECORDS SUMMARY | 2025-04-09 13:11 | XMS_ITS | Encounter Summary ---
Author Organization [facility] Address [address] [place] [address] 7t [place] [address] Care Team Providers Care Residential Electrician Name Role Phone Macie Link DO Primary Care Provider Flor Clark PharmD Unavailable Encounter Details Date Type Department Care Team (Late st Contact Info) Description 07/21/2022 Telephone [facility] MEDICINE [address] [place] [address] Macie Link DO [address] [place] [address] Social History Tobacco Use Types Packs/Day Years [...] Description 04/23/2025 11:15 AM EST Office Visit [facility] MEDICINE [address] [place] [address] Macie Link DO 230 [place] [address] 05/15/2025 8:30 AM EST Clinical Support [facility] MEDICINE [address] [place] [address] April Murrell RN 07/01/2025 12:45 PM EST Office Visit [facility] ADULT DENTAL [address] [place], [place] [phone] Eleni Shin 230 [place] [address] documented as of this encounter Visit Diagnoses Not on filedocumented in this encounter Additional Health Concerns Assessment Noted Time PHQ-9 Depression Total Score: 2 07/06/19 23 9:23 AM EST documented as of this encounter Care Teams Residential Electrician Relationship Specialty Start Date [place] [address] PCP - General Family Medicine 05/30/18 Flor Clark, [place] [address] Pharmacist Internal Medicine 08/18/23 02/20/25 documented as of this encounter
--- OUTSIDE RECORDS SUMMARY | 2025-04-09 13:11 | XMS_ITS | Encounter Summary ---
Author Organization [facility] Address [address] [place] [address] Care Team Providers Care Property Field Inspector Name Role Phone Ref, Has No Pcp Or Primary Care Provider Unavail able Encounter Details Date Type Department Care Team (Late st Contact Info) Description 06/28/2024 Orders Only [facility] Nuclear Medicine [address] [place] [address] Kandice Pacheco MD [address] [place] [address] Social History Tobacco Use Types Packs/Day Years [...] Info) Description 04/23/2025 12:15 PM EST Appointment [facility] [place] [address] [place] [address] 05/09/2025 11:00 AM EST Follow-Up [facility] 5th Floor [address] [place] [address] Pierce Au MD [address] [place] [address] 03/11/2026 9:40 AM EDT Follow-Up [facility] [address] [place] [address] Louie Pablo MD [address] [place] [address] 03/11/2026 10:00 AM EDT Social Work [facility] [address] [place] [address] Imani Livingston LICSW [address] [place] [address] documented as of this encounter Visit Diagnoses Not on filedocumented in this encounter Care Teams Property Field Inspector Relationship Specialty Start Date End Date Ref, Has No Pcp Or DO NOT EDIT THIS RECORD [facility]IA [facility] PCP - General Silhouette Artist 03/15/24 documented as of this encounter
--- OUTSIDE RECORDS SUMMARY | 2025-04-09 13:11 | XMS_ITS | Encounter Summary ---
Author Organization [employer] Address 75 [facility] 7t [place] [address] Care Team Providers Care Purchasing Administrative Assistant Name Role Phone Macie Link DO Primary Care Provider [phone] Flor Clark PharmD Unavailable [phone] Reason for Visit * Reason Comments Med Refill Encounter Details Date Type Department Care Team (Late st Contact Info) Description 05/04/[address] [facility] MEDICINE [address] [place] [address] Macie Link DO [address] [place] [address] Hypothyroidism, unspecified type; Chronic GERD Social History [...] 11:15 AM EST Office Visit [facility] MEDICINE [address] [place] [address] Macie Link DO [address] [place] [address] 05/15/2025 8:30 AM EST Clinical Support [facility] MEDICINE [address] [place] [address] April Murrell RN 07/01/2025 12:45 PM EST Office Visit [facility] ADULT DENTAL [address] [place] [address] Eleni Shin [address] [place] [address] documented as of this encounter Goals Goal [...] documented as of this encounter Care Teams Purchasing Administrative Assistant Relationship Specialty Start Date End Date Macie Link DO [address] [place] [address] PCP - General Family Medicine 05/30/18 Flor Clark PharmD [address] [place] [address] Pharmacist Internal Medicine 08/18/23 02/20/25 documented as of this encounter
--- OUTSIDE RECORDS SUMMARY | 2025-04-09 13:11 | XMS_ITS | Encounter Summary ---
Author Organization [employer] Address 75 [facility] 7t [place] [address] Care Team Providers Care Wool Sampler Name Role Phone Macie Link DO Primary Care Provider [phone] Flor Clakr PharmD Unavailable [phone] Reason for Visit * Reason Comments Med Refill Encounter Details Date Type Department Care Team (Late st Contact Info) Description 12/12/2023 Refill [facility] MEDICINE 230 [place] [address] Macie Link DO [address] [place] [address] Anxiety; Chronic neck pain Social History Tobacco [...] Description 04/23/2025 11:15 AM EST Office Visit [facility] MEDICINE [address] [place] [address] Macie Link DO 230 [place] [address] 05/15/2025 8:30 AM EST Clinical Support [address] [address] April Murrell RN 07/01/2025 12:45 PM EST Office Visit [facility] ADULT DENTAL [address] [place] [address] Eleni Shin 230 [place] [address] documented as of this encounter Goals Goal [...] documented as of this encounter Care Teams Wool Sampler Relationship Specialty Start Date End Date Macie Link DO [address] [place] [address] PCP - General Family Medicine 05/30/18 Flor Clark PharmD [address] [place] [address] Pharmacist Internal Medicine 08/18/23 02/20/25 documented as of this encounter
--- OUTSIDE RECORDS SUMMARY | 2025-04-09 13:11 | XMS_ITS | Clinical Summary ---
Author Organization [facility] Address [address] [place] [address] Care Team Providers Care Conventions Reservationist Name Role Phone Ref, Has No Pcp [...] THE EVENING 5 Active FreeStyle Gurmeet 2 [place] misc SMARTSIG:As Directed 4 Active FreeStyle Gurmeet [...] Active ipratropium (ATROVENT) 0.03% nasal spray [employer](s) Both Nares 3 Times Daily Active Accu-Chek [...] Encounters Date Type Department Care Team Description 03/19/2025 9:30 AM EDT Social Work [facility] Renal Transplant [address] [place] [address] Imani Livingston LICSW 03/19/2025 9:00 AM EDT Follow-Up [facility] Renal Transplant [address] [place] [address] Louie Pablo MD Pre-transplant evaluation for kidney transplant (Primary Dx); ESRD (end stage renal disease) 01/25/2025 Orders Only [facility] Interventional Radiology [address] [place] [address] Sharan Alcazar MD from Last 3 Months Immunizations Immunization Administration Dates Next Due COVID-19, Moderna, mRNA, LNP -S, Bivalent Booster, PF 03/12/2022 Hepatitis B vaccine (HEPLISA V-B) vaccine 0.5 mL IM 12/29/2022,11/03/2022,10/04/2022,2022 Pneumococcal conjugate PCV20,polysaccharide [id number] conjugate, adjuvant, PF (Prevnar 20) 06/22/2023 Social [...] Sign Reading Time Taken Comments Blood Pressure 115/72 03/19/2025 8:37 AM EDT Pulse 60 03/19/2025 8:37 AM EDT Temperature 36.7 C (98.1 F) 03/19/2025 8:37 AM EDT Respiratory Rate 18 03/19/2025 8:37 AM EDT Oxygen Saturation 98% 03/19/2025 8:37 AM EDT Inhaled Oxygen Concentration - - Weight 89 kg (196 lb 3.4 oz) 03/19/2025 8:37 AM EDT Height 165.2 cm (5' 5.04 ) 09/24/2024 7:55 AM ED T Body Mass Index 32.61 09/24/2024 7:55 AM EDT Plan of Treatment Upcoming Encounters Date Type Department Care Team (Late st Contact Info) Description 04/23/2025 12:15 PM EST Appointment [facility] [address] [place], [place] [phone] 05/09/2025 11:00 AM EST Follow-Up [facility] South 5th Floor [address] [place] [address] Pierce Au MD [address] [place], [place] [phone] 03/11/2026 9:40 AM EDT Follow-Up [facility] Renal Transplant [address] [place] [address] Louie Pablo MD [address] [place] [address] 03/11/2026 10:00 AM EDT Social Work [facility] Renal Transplant [address] [place] [address] Imani Livingston LICSW [address] [place] [address] Health Maintenance Due Date Last Done Comments [...] , 07/06/2024, 11/03/2023, Additional history exists Hemoglobin 03/15/2025 03/15/2024 Phosphorus 03/15/2025 03/15/2024 Hemoglobin A1C 08/21/2025 02/21/2025, 08/28, 09/04/2024, Additional history exists COVID-19 Vaccine (8 - Modern a risk 2024- season) 2025 03/06/2025, 02/23/2024, 03/08/2023, Additional history exists Colon Cancer Screening 09/14/2025 FOBT / Fit Test 09/14/2025 09/14/2024 Fall Risk Screening 09/24/2025 09/24/2024 DTaP,Tdap,and Td Vaccines (3 - Td or Tdap) 02/24/2032 02/23/2022, 02/04/2012, 11/10/2000 Zoster Vaccines Completed 11/24/2021, 09/17/2021 Hepatitis B Vaccines Completed 12/29/2022, 11/03/2022, 10/04/2022, Additional history exists RSV Vaccine (60+ years old a nd patients) Completed 08/18/2023 Pneumococcal Vaccine: 50+ Years Completed 12/26/2023, 06/22/2023, 05/28/2022, Additional history exists HIV Screening Completed 03/15/2024, 11/27, 12/09/2020 Hepatitis C Screening Completed 03/15/2024 Influenza Vaccine Completed 02/20/2025, , 02/03/2023, Additional history exists CKD: Referral to Nephrology Completed 03/19/2025 Procedures * Due to [place] [employer] law, this organization might not be sharing [...] to Health Maintenance Results * Due to [place] [employer] law, this organization might not be sharing negative HIV tests. * (ABNORMAL) Basic Metabolic Panel (07/06/2024 11:59 AM EST) NA 138 135 - 145 mmol/L 07/06/2024 12:39 PM EST [facility] K 4.4 3.5 - 5.3 mmol/L 07/06/2024 12:39 PM EST [facility] Cl 96(L) 98 - 107 mmol/L 07/06/2024 12:39 PM EST [facility] CO2 30 22 - 32 mmol/L 07/06/2024 12:39 PM EST [facility] BUN 19 7 - 23 mg/dL 07/06/2024 12:39 PM EST [facility] Creatinine 5.41(H) 0.60 - 1.30 mg/dL 07/06/2024 12:39 PM EST [facility] Glucose 147(H) 65 - 99 mg/dL 07/06/2024 12:39 PM EST [facility] Calcium 9.7 8.6 - 10.5 mg/dL 07/06/2024 12:39 PM EST [facility] Anion Gap 12 5 - 15 07/06/2024 12:39 PM EST [facility] eGFR 11(L) >=60 mL/min/1 .73m2 07/06/2024 12:39 PM EST [email or web address] Comment:The estimated glomer ular [...] MD LAB BLOOD ORDERABLES Final Resu lt [place] [email or web address] [address] [place] [address], [place] * (ABNORMAL) CBC Auto Differential (03/15/2024 12:39 PM EDT) WBC 6.2 3.8 - 10.8 10*3/uL 03/15/2024 1:11 PM EDT [facility] RBC 3.90(L) 4.20 - 5.80 10*6/uL 03/15/2024 1:11 PM EDT [facility] Hemoglobin 11.9(L) 13.2 - 17.1 g/dL 03/15/2024 1:11 PM EDT [facility] Hematocrit 36.8(L) 38.5 - 50.0 % 03/15/2024 1:11 PM EDT [facility] MCV 94.4 80.0 - 100.0 fL 03/15/2024 1:11 PM EDT [facility] MCH 30.5 27.0 - 33.0 pg 03/15/2024 1:11 PM EDT [facility] MCHC 32.3 32.0 - 36.0 g/dL 03/15/2024 1:11 PM EDT [facility] RDW 14.2 11.0 - 15.0 % 03/15/2024 1:11 PM EDT [facility] Platelets 175 140 - 400 10*3/uL 03/15/2024 1:11 PM EDT [facility] MPV 11.3 7.5 - 12.5 fL 03/15/2024 1:11 PM EDT [facility] Neutrophil % 59.1 % 03/15/2024 1:11 PM EDT [facility] Immature Grans % 0.2 0.0 - 0.9 % 03/15/2024 1:11 PM EDT [facility] Lymphocyte % 28.1 % 03/15/2024 1:11 PM EDT [facility] Monocyte % 9.9 % 03/15/2024 1:11 PM EDT [facility] Eosinophil % 2.4 % 03/15/2024 1:11 PM EDT [facility] Basophil % 0.3 % 03/15/2024 1:11 PM EDT [facility] Neutrophil # 3.63 1.50 - 7.80 10*3/uL 03/15/2024 1:11 PM EDT [facility] Immature Grans # <0.03 <=0.03 10*3/uL 03/15/2024 1:11 PM EDT [facility] Lymphocyte # 1.70 0.85 - 3.90 10*3/uL 03/15/2024 1:11 PM EDT [facility] Monocyte # 0.60 0.20 - 0.95 10*3/uL 03/15/2024 1:11 PM EDT [facility] Eosinophil # 0.20 0.02 - 0.50 10*3/uL 03/15/2024 1:11 PM EDT [facility] Basophil # <0.03 0.00 - 0.20 10*3/uL 03/15/2024 1:11 PM EDT [facility] nRBC % 0.0 /100 WBCs 03/15/2024 1:11 PM EDT [facility] nRBC # <0.01 <0.01 10*3/uL 03/15/2024 1:11 PM EDT [facility] Blood Structure of peripheral vein / Unknown Venipuncture / Unknown 03/15/2024 12:39 PM EDT 03/15/2024 12:59 PM EDT Tobias Vogt MD LAB BLOOD ORDERABLES Final Result [facility] [address] [place] [address], [place] * Hepatitis C Antibody w/Reflex to PCR (03/15/2024 12:39 PM EDT) Hepatitis C Antibody NON-REACT ALBINO NON-REACT ALBINO 03/16/2024 3:27 AM EDT [facility] Comment: HCV antibody was non-reactive. There is no laboratory evidence of HCV infection. In most cases, no further action is required. However, if recent HCV exposure is suspected, a test for HCV RNA (test code 54847) is suggested. For additional information please refer to http://education.[employer]/faq/RKB22q4 (This link is being provided for informational/ educational purposes only.) Blood Structure of peripheral vein / Unknown Venipuncture / Unknown 03/15/2024 12:39 PM EDT 03/15/2024 12:58 PM EDT Narrative [facility] - 03/16/2024 3:27 AM EDT [facility] Received Date:[id number] Tobias Vogt MD LAB BLOOD ORDERABLES Final Result Performing Organization Address City/[facility]/ZIP Co de Phone Number [facility] [address] [facility] 3rd Floor, [place] [address], [place] [phone] Around Knowledge [facility] [address] [facility] 3rd Floor, [place] [address], [place] [phone] * Phosphorus (03/15/2024 12:39 PM EDT) Phosphorus 3.4 2.5 - 4.5 mg/dL 03/15/2024 1:45 PM EDT [facility] Blood Structure of peripheral vein / Unknown Venipuncture / Unknown 03/15/2024 12:39 PM EDT 03/15/2024 12:58 PM EDT Tobias Vogt MD LAB BLOOD ORDERABLES Final Result [facility] [address] [place] [address], [place] * (ABNORMAL) Hemoglobin A1c (03/15/2024 12:39 PM EDT) Hemoglobin A1C 6.3(H) <5.7 % of total Hgb 03/16/2024 2:05 AM EDT [facility] Comment: For someone without known diabetes, a [...] (MG/DL) 134 mg/dL 03/16/2024 2:05 AM EDT [facility] eAG (MMOL/L) 7.4 mmol/L 03/16/2024 2:05 AM EDT [facility] Blood Structure of peripheral vein / Unknown Venipuncture / Unknown 03/15/2024 12:39 PM EDT 03/15/2024 12:59 PM EDT Narrative [facility] - 03/16/2024 2:05 AM EDT [facility] Received Date:[id number] Tobias Vogt MD LAB BLOOD ORDERABLES Final Result [facility] [address] [facility] [address]rd Floor, [place] [address], [place] [phone] [facility] [address] [facility] 3rd Floor, [place] [address], [place] [phone] from Last 3 Months or Most Recently Relevant to Health Maintenance Insurance [facility] Advance Directives Documents on File Type Date Recorded Patient Shift Supervisor Expl anation Health Care Proxy 03/20/2024 5:28 PM 10- Care Teams Conventions Reservationist Relationship Specialty Start Date End Date Ref, Has No Pcp Or DO NOT EDIT THIS RECORD VIA [facility] [employer] THE [employer] PCP - General Supervising Librarian 03/15/24
--- OUTSIDE RECORDS SUMMARY | 2025-04-09 13:11 | XMS_ITS | Encounter Summary ---
Author Organization [facility] Address [address] [place] [address] Care Team Providers Care Database Consultant Name Role Phone Ref, Has No Pcp Or Primary Care Provider Unavail able Encounter Details Date Type Department Care Team (Late st Contact Info) Description 09/25/2024 Orders Only [facility] Interventional Radiology [address] [place] [address] Cami Garland PA [address] [place] [address] Social History Tobacco Use Types Packs/Day Years [...] Info) Description 04/23/2025 12:15 PM EST Appointment [facility] CT [address] [place], [place] [phone] 05/09/2025 11:00 AM EST Follow-Up [facility] Cancer Clinic South 5th Floor [address] [place] [address] Pierce Au MD [address] [place], [place] [phone] 03/11/2026 9:40 AM EDT Follow-Up [facility] Renal Transplant [address] [place] [address] Louie Pablo MD [address] [place] [address] 03/11/2026 10:00 AM EDT Social Work [facility] Renal Transplant [address] [place] [address] Imani Livingston LICSW [address] [place] [address] documented as of this encounter Visit Diagnoses Not on filedocumented in this encounter Care Teams Database Consultant Relationship Specialty Start Date End Date Ref, Has No Pcp Or DO NOT EDIT THIS RECORD VIA [facility] PCP - [facility] Chief Executive Officer 03/15/24 documented as of this encounter
--- OUTSIDE RECORDS SUMMARY | 2025-04-09 13:11 | XMS_ITS ---
Author Organization [facility] Address [address] [place] [address] Care Team Providers Care Mounter Flutes And Piccolos Name Role Phone Ref, Has No Pcp [...] TotalDLP 1,501 mGy 1,501 mGy 0 mGy [id number] 21.5 mSv 21.5 mSv 0 mSv CTDIvol Max 18.2 mGy 18.2 mGy 0 mGy CTDIvol Min 14.8 mGy 14.8 mGy 0 mGy
--- OUTSIDE RECORDS SUMMARY | 2025-04-09 13:11 | XMS_ITS | Encounter Summary ---
Author Organization [employer] Address [address] [facility] 7t [place] [address] Care Team Providers Care Pack Operator Name Role Phone Macie Link DO Primary Care Provider + [phone] Reason for Visit * Reason Comments Med Refill Encounter Details Date Type Department Care Team ([facility] st Contact Info) Description 04/05/2025 Refill [facility] [address] [place], [place] [phone] Macie Link DO [address] [place], [place] [phone] Chronic neck pain; Anxiety Social History Tobacco [...] Description 04/23/2025 11:15 AM EST Office Visit [address] [address] Macie Link DO [address] [place] [address] 05/15/2025 8:30 AM EST Clinical Support [address] [address] April Murrell RN 07/01/2025 12:45 PM EST Office Visit [facility] ADULT DENTAL [address] [place] [address] Eleni Shin [address] [place] [address] documented as of this encounter Goals Goal [...] documented as of this encounter Care Teams Pack Operator Relationship Specialty Start Date End Date Macie Link DO [address] [place] [address] PCP - General Family Medicine 05/30/18 documented as of this encounter
--- OUTSIDE RECORDS SUMMARY | 2025-04-09 13:11 | XMS_ITS | Encounter Summary ---
Author Organization [employer] Address [address] [facility] 7t [place] [address] Care Team Providers Care Children Teacher Name Role Phone ArcadioMacie smith DO Primary Care Provider [phone] Flor Clark PharmD Unavailable [phone] Reason for Visit * Reason Comments Med Refill Encounter Details Date Type Department Care Team (Late st Contact Info) Description 06/25/2024 Refill [facility] MEDICINE [address] [place] [address] Catherine Madera MD [address] [place], [place] [phone] Anxiety; Chronic neck pain Social History Tobacco [...] Description 04/23/2025 11:15 AM EST Office Visit [facility] [address] [place] [address] Macie Link DO [address] [place] [address] 05/15/2025 8:30 AM EST Clinical Support [address] [address] April Murrell RN 07/01/2025 12:45 PM EST Office Visit [facility] ADULT DENTAL [address] [place] [address] Eleni Shin [address] [place] [address] documented as of this encounter Goals Goal [...] documented as of this encounter Care Teams Children Teacher Relationship Specialty Start Date End Date Macie Link DO [address] [place] [address] PCP - General Family Medicine 05/30/18 Flor Clark PharmD [address] [place] [address] Pharmacist Internal Medicine 08/18/23 02/20/25 documented as of this encounter
--- OUTSIDE RECORDS SUMMARY | 2025-04-09 13:11 | XMS_ITS | Encounter Summary ---
Author Organization [employer] [facility] Address [address] [facility] 7t [place] [address] Care Team Providers Care Adjunct Physical Education Instructor Name Role Phone Macie Link DO Primary Care Provider [phone] Flor Clark PharmD Unavailable [phone] Reason for Visit * Reason Comments Med Refill Encounter Details Date Type Department Care Team (Late st Contact Info) Description 12/17/2024 Refill [facility] MED[facility] [address] [place] [address] Macie Link DO [address] [place] [address] Chronic neck pain Social History Tobacco Use [...] Description 04/23/2025 11:15 AM EST Office Visit [facility] [address] [place] [address] Macie Link DO [address] [place] [address] 05/15/2025 8:30 AM EST Clinical Support [facility] [address] [place] [address] April Murrell RN 07/01/2025 12:45 PM EST Office Visit [facility] ADULT DENTAL [address] [place] [address] Eleni Shin [address] [place] [address] documented as of this encounter Goals Goal [...] documented as of this encounter Care Teams Adjunct Physical Education Instructor Relationship Specialty Start Date End Date Macie Link DO [address] [place] [address] PCP - General Family Medicine 05/30/18 Flor Clark PharmD [address] [place] [address] Pharmacist Internal Medicine 08/18/23 02/20/25 documented as of this encounter
--- OUTSIDE RECORDS SUMMARY | 2025-04-09 13:11 | XMS_ITS | Encounter Summary ---
Author Organization [employer] Address [address] [facility] 7t [place] [address] Care Team Providers Care Marketing Communication Manager Name Role Phone ArcadioMacie smith DO Primary Care Provider [phone] Flor Clark PharmD Unavailable [phone] Reason for Visit * Reason Comments Med Refill Encounter Details Date Type Department Care Team (Late st Contact Info) Description 05/24/2024 Refill [facility] [address] [place] [address] Sobia Crooks MD [address] [place] [address] Chronic neck pain Social History Tobacco Use [...] Description 04/23/2025 11:15 AM EST Office Visit [facility] [address] [place] [address] Macie Link DO [address] [place] [address] 05/15/2025 8:30 AM EST Clinical Support [address] [address] April Murrell RN 07/01/2025 12:45 PM EST Office Visit [facility] ADULT DENTAL [address] [place] [address] Eleni Shin [address] [place] [address] documented as of this encounter Goals Goal [...] as of this encounter Care Teams Marketing Communication Manager Relationship Specialty Start Date End Date Macie Link DO [address] [place] [address] PCP - General Family Medicine 05/30/18 Flor Clark PharmD [address] [place] [address] Pharmacist Internal Medicine 08/18/23 02/20/25 documented as of this encounter
--- OUTSIDE RECORDS SUMMARY | 2025-04-09 13:12 | XMS_ITS | Encounter Summary ---
Author Organization [employer] Address [address] [facility] 7t [place] [address] Care Team Providers Care Instrumentation And Control Technician Name Role Phone Macie Link DO Primary Care Provider Flor Clark PharmD Unavailable Encounter Details Date Type Department Care Team ([facility] st Contact Info) Description 10/10/2024 Telephone [facility] [address] [place], [place] [phone] Macie Link DO [address] [place] [address] Social History Tobacco Use Types Packs/Day Years [...] Description 04/23/2025 11:15 AM EST Office Visit [facility] [address] [place] [address] Macie Link DO [address] [place] [address] 05/15/2025 8:30 AM EST Clinical Support [facility] [address] [place] [address] April Murrell, PADILLA 07/01/2025 12:45 PM EST Office Visit [facility] ADULT DENTAL [address] [place] [address] Eleni Shin [address] [place] [address] documented as of this encounter Goals Goal Patient Goal Type Associated Problems Recent Progress Patient-Stated? Author Hemoglobin A1c < 7 Result Component 7.5( 10:32 AM EDT) No Flor Clark, DerikD Note: [...] documented as of this encounter Care Teams Instrumentation And Control Technician Relationship Specialty Start Date End Date Macie Link DO [address] [place] [address] PCP - General Family Medicine 05/30/18 Flor Clark PharmD [address] [place] [address] Pharmacist Internal Medicine 08/18/23 02/20/25 documented as of this encounter
--- OUTSIDE RECORDS SUMMARY | 2025-04-09 13:12 | XMS_ITS | Encounter Summary ---
Author Organization [employer] Address [address] [facility] 7t [place] [address] Care Team Providers Care Extrusion Die Corrector Name Role Phone Macie Link DO Primary Care Provider [phone] Flor Clark PharmD Unavailable [phone] Reason for Visit * Reason Comments Med Refill Encounter Details Date Type Department Care Team (Late st Contact Info) Description 06/03/2023 Refill [facility] MED[facility]INE [address] [place] [address] Macie Link DO [address] [place] [address] Anxiety Social History Tobacco Use Types Packs/Day [...] Description 04/23/2025 11:15 AM EST Office Visit [facility] MED[facility]INE [address] [place] [address] Macie Link DO [address] [place] [address] 05/15/2025 8:30 AM EST Clinical Support [facility] [address] [place] [address] April Murrell RN 07/01/2025 12:45 PM EST Office Visit [facility] ADULT DENTAL [address] [place] [address] Eleni Shin [address] [place] [address] documented as of this encounter Visit Diagnoses Diagnosis Anxiety Anxiety state, unspecified documented in this encounter Additional Health Concerns Assessment Noted Time PHQ-9 Depression Total Score: 13 024 9:15 AM EST documented as of this encounter Care Teams Extrusion Die Corrector Relationship Specialty Start Date End Date Macie Link DO [address] [place] [address] PCP - General Family Medicine 05/30/18 Flor Clark PharmD [address] [place] [address] Pharmacist Internal Medicine 08/18/23 02/20/25 documented as of this encounter
--- OUTSIDE RECORDS SUMMARY | 2025-04-09 13:12 | XMS_ITS | Encounter Summary ---
Author Organization [employer] Address [address] [facility] 7t [place] [address] Care Team Providers Care Lithographer Apprentice Name Role Phone Macie Link DO Primary Care Provider [phone] Flor Clark PharmD Unavailable Reason for Visit * Reason Comments Med Refill Encounter Details Date Type Department Care Team (Late st Contact Info) Description 02/06/2024 Refill [facility] [address] [place] [address] Macie Link DO [address] [place] [address] Chronic neck pain; Anxiety Social History Tobacco [...] 11:15 AM EST Office Visit [facility] [address] [place] [address] Macie Link DO [address] [place] [address] 05/15/2025 8:30 AM EST Clinical Support [address] [address] April Murrell RN 07/01/2025 12:45 PM EST Office Visit [facility] ADULT DENTAL [address] [place] [address] Eleni Shin [address] [place] [address] documented as of this encounter Goals Goal [...] documented as of this encounter Care Teams Lithographer Apprentice Relationship Specialty Start Date End Date Macie Link DO [address] [place] [address] PCP - General Family Medicine 05/30/18 Flor Clark PharmD [address] [place] [address] Pharmacist Internal Medicine 08/18/23 02/20/25 documented as of this encounter
--- OUTSIDE RECORDS SUMMARY | 2025-04-09 13:12 | XMS_ITS | Encounter Summary ---
Author Organization [employer] Address [address] [facility] 7t [place] [address] Care Team Providers Care Wet Crown Blocking Operator Name Role Phone Macie Link DO Primary Care Provider [phone] Flor Clark PharmD Unavailable [phone] Reason for Visit * Reason Comments Med Refill Encounter Details Date Type Department Care Team (Late st Contact Info) Description 08/20/2024 Refill [facility] MEDICINE [address] [place] [address] Macie Link DO [address] [place] [address] Chronic neck pain; Anxiety Social History Tobacco [...] 11:15 AM EST Office Visit [facility] MEDICINE [address] [place] [address] Macie Link DO 230 [place] [address] 05/15/2025 8:30 AM EST Clinical Support [address] [address] April Murrell RN 07/01/2025 12:45 PM EST Office Visit [facility] ADULT DENTAL [address] [place] [address] Eleni Shin [address] [place] [address] documented as of this encounter Goals Goal [...] documented as of this encounter Care Teams Wet Crown Blocking Operator Relationship Specialty Start Date End Date Macie Link DO [address] [place] [address] PCP - General Family Medicine 05/30/18 Flor Clark PharmD [address] [place] [address] Pharmacist Internal Medicine 08/18/23 02/20/25 documented as of this encounter
--- OUTSIDE RECORDS SUMMARY | 2025-04-09 13:12 | XMS_ITS | Encounter Summary ---
Author Organization [employer] Address 75 [facility] 7t [place] [address] Care Team Providers Care Emergency Nurse Name Role Phone Macie Link DO Primary Care Provider Flor Clark PharmD Unavailable [phone] Encounter Details Date Type Department Care Team (Late st Contact Info) Description 06/16/2022 Orders Only [facility] CHC MED & PEDS [address] [place] [address] Macie Stiles LPN Social History Tobacco Use [...] Department Care Team (Late Contact Info) Description 04/23/2025 11:15 AM EST Office Visit [address] [address] Macie Link DO [address] [place] [address] 05/15/2025 8:30 AM EST Clinical Support [facility] MEDICINE [address] [place] [address] April Murrell RN 07/01/2025 12:45 PM EST Office Visit [facility] ADULT DENTAL [address] [place] [address] Eleni Shin 230 [place] [address] documented as of this encounter Visit Diagnoses Not on filedocumented in this encounter Care Teams Emergency Nurse Relationship Specialty Start Date End Date Macie Link DO 230 [place] [address] PCP - General Family Medicine 05/30/18 Flor Clark PharmD [address] [place] [address] Pharmacist Internal Medicine 08/18/23 02/20/25 documented as of this encounter
--- OUTSIDE RECORDS SUMMARY | 2025-04-09 13:12 | XMS_ITS | Encounter Summary ---
Author Organization [employer] Address 75 [facility] 7t [place] [address] Care Team Providers Care Pneumatic Jacketer Name Role Phone ArcadioMacie smith DO Primary Care Provider [phone] Flor Clark PharmD Unavailable [phone] Reason for Visit * Reason Comments Med Refill Encounter Details Date Type Department Care Team (Late st Contact Info) Description 07/26/2023 Refill [facility] MEDICINE 230 [place] [address] Catherine Madera MD 230 [place] [address] Anxiety; Chronic neck pain Social History Tobacco [...] Description 04/23/2025 11:15 AM EST Office Visit [facility] MEDICINE [address] [place] [address] Macie Link DO [address] [place] [address] 05/15/2025 8:30 AM EST Clinical Support [facility] MEDICINE [address] [place] [address] April Murrell RN 07/01/2025 12:45 PM EST Office Visit [facility] ADULT DENTAL [address] [place] [address] Eleni Shin [address] [place] [address] documented as of this encounter Visit Diagnoses Diagnosis Anxiety Anxiety state, unspecified Chronic neck pain Cervicalgia documented in this encounter Additional Health Concerns Assessment Noted Time PHQ-9 Depression Total Score: 13 024 9:15 AM EST documented as of this encounter Care Teams Pneumatic Jacketer Relationship Specialty Start Date End Date Macie Link DO [address] [place] [address] PCP - General Family Medicine 05/30/18 Flor Clark, Jaspreet [address] [place] [address] Pharmacist Internal Medicine 08/18/23 02/20/25 documented as of this encounter
--- OUTSIDE RECORDS SUMMARY | 2025-04-09 13:12 | XMS_ITS | Encounter Summary ---
Author Organization [employer] Address [address] [facility] 7t [place] [address] Care Team Providers Care Director And Professor Name Role Phone Macie Link DO Primary Care Provider [phone] Flor Clark PharmD Unavailable [phone] Reason for Visit * Reason Comments Med Refill Encounter Details Date Type Department Care Team (Late st Contact Info) Description 03/08/2023 Refill [facility] MEDICINE 230 [place] [address] Macie Link DO 230 [place] [address] Anxiety; Chronic neck pain Social History Tobacco [...] Description 04/23/2025 11:15 AM EST Office Visit [facility] MEDICINE [address] [place] [address] Macie Link DO [address] [place] [address] 05/15/2025 8:30 AM EST Clinical Support [facility] MEDICINE [address] [place] [address] April Murrell RN 07/01/2025 12:45 PM EST Office Visit [facility] ADULT DENTAL [address] [place] [address] Eleni Shin 230 [place] [address] documented as of this encounter Visit Diagnoses Diagnosis Anxiety Anxiety state, unspecified Chronic neck pain Cervicalgia documented in this encounter Additional Health Concerns Assessment Noted Time PHQ-9 Depression Total Score: 2 07/06/19 23 9:23 AM EST documented as of this encounter Care Teams Director And Professor Relationship Specialty Start Date End Date Macie Link DO [address] [place] [address] PCP - General Family Medicine 05/30/18 Flor Clark PharmD [address] [place] [address] Pharmacist Internal Medicine 08/18/23 02/20/25 documented as of this encounter
--- OUTSIDE RECORDS SUMMARY | 2025-04-09 13:12 | XMS_ITS | Encounter Summary ---
Author Organization [employer] Address 75 [facility] 7t [place] [address] Care Team Providers Care Sorter Pricer Name Role Phone Macie Link DO Primary Care Provider Flor Clark PharmD Unavailable [phone] Encounter Details Date Type Department Care Team (Late st Contact Info) Description 05/25/2022 Orders Only [facility] CHC MED & PEDS [address] [place] [address] Macie Stiles LPN Social History Tobacco Use [...] Description 04/23/2025 11:15 AM EST Office Visit [address] [address] Macie Link DO [address] [place] [address] 05/15/2025 8:30 AM EST Clinical Support [facility] MEDICINE [address] [place] [address] April Murrell RN 07/01/2025 12:45 PM EST Office Visit [facility] ADULT DENTAL [address] [place] [address] Eleni Shin 230 [place] [address] documented as of this encounter Visit Diagnoses Not on filedocumented in this encounter Care Teams Sorter Pricer Relationship Specialty Start Date End Date Macie Link DO 230 [place] [address] PCP - General Family Medicine 05/30/18 Flor Clark PharmD [address] [place] [address] Pharmacist Internal Medicine 08/18/23 02/20/25 documented as of this encounter
--- OUTSIDE RECORDS SUMMARY | 2025-04-09 13:12 | XMS_ITS | Encounter Summary ---
Author Organization [employer] Address [address] [facility] 7t [place] [address] Care Team Providers Care Asbestos Removal Supervisor Name Role Phone Macie Link DO Primary Care Provider [phone] Flor Clark PharmD Unavailable [phone] Reason for Visit * Reason Comments Med Refill Encounter Details Date Type Department Care Team (Late st Contact Info) Description 03/05/2024 Refill [facility] MEDICINE 230 [place] [address] Macie Link DO 230 [place] [address] Seasonal allergic rhinitis, unspecified trigger Social History [...] Description 04/23/2025 11:15 AM EST Office Visit [facility] MEDICINE [address] [place] [address] Macie Link DO 230 [place] [address] 05/15/2025 8:30 AM EST Clinical Support [facility] MEDICINE 230 [place] [address] April Murrell RN 07/01/2025 12:45 PM EST Office Visit [facility] ADULT DENTAL [address] [place] [address] Eleni Shin [address] [place] [address] documented as of this encounter Goals Goal [...] documented as of this encounter Care Teams Asbestos Removal Supervisor Relationship Specialty Start Date End Date Macie Link DO 230 [place] [address] PCP - General Family Medicine 05/30/18 Flor Clark PharmD 230 [place] [address] Pharmacist Internal Medicine 08/18/23 02/20/25 documented as of this encounter
--- OUTSIDE RECORDS SUMMARY | 2025-04-09 13:12 | XMS_ITS | Encounter Summary ---
Author Organization [employer] [facility] Address [address] [place] [address] 7t [place] [address] Care Team Providers Care Jig Builder Helper Name Role Phone Macie Link DO Primary Care Provider [phone] Flor Clark PharmD Unavailable Reason for Visit * Reason Comments Med Refill Encounter Details Date Type Department Care Team (Late st Contact Info) Description 01/13/2023 Refill [facility] MEDICINE [address] [place] [address] Macie Link DO 230 [place] [address] Chronic neck pain Social History Tobacco Use [...] Description 04/23/2025 11:15 AM EST Office Visit [facility] MEDICINE [address] [place] [address] Macie Link DO 230 [place] [address] 05/15/2025 8:30 AM EST Clinical Support [facility] MEDICINE [address] [place] [address] April Murrell RN 07/01/2025 12:45 PM EST Office Visit [facility] ADULT DENTAL 230 [place], [place] [phone] Eleni Shin 230 [place] [address] documented as of this encounter Visit Diagnoses Diagnosis Chronic neck pain Cervicalgia documented in this encounter Additional Health Concerns Assessment Noted Time PHQ-9 Depression Total Score: 2 07/06/19 23 9:23 AM EST documented as of this encounter Care Teams Jig Builder Helper Relationship Specialty Start Date End Date Macie Link DO [address] [place] [address] PCP - General Family Medicine 05/30/18 Flor Clark PharmD [address] [place] [address] Pharmacist Internal Medicine 08/18/23 02/20/25 documented as of this encounter
--- OUTSIDE RECORDS SUMMARY | 2025-04-09 13:12 | XMS_ITS | Encounter Summary ---
Author Organization [facility] Address [address] [place] [address] Care Team Providers Care Insurance Investigator Name Role Phone Ref, Has No Pcp Or Primary Care Provider Unavail able Encounter Details Date Type Department Care Team (Late st Contact Info) Description 01/25/2025 Orders Only [facility] Interventional Radiology [address] [place] [address] Sharan Alcazar MD [address] [facility] [place] [address] Social History Tobacco Use Types Packs/Day Years [...] Info) Description 04/23/2025 12:15 PM EST Appointment [facility] CT [address] [place], [place] [phone] 05/09/2025 11:00 AM EST Follow-Up [facility] ACC [facility] 5th Floor [address] [place], [place] [phone] Pierce Au MD [address] [place], [place] [phone] 03/11/2026 9:40 AM EDT Follow-Up [facility] Renal Transplant [address] [place] [address] Louie Pablo MD [address] [place] [address] 03/11/2026 10:00 AM EDT Social Work [facility] Renal Transplant [address] [place] [address] Imani Livingston LICSW [address] [place] [address] documented as of this encounter Visit Diagnoses Not on filedocumented in this encounter Care Teams Insurance Investigator Relationship Specialty Start Date End Date Ref, Has No Pcp Or DO NOT EDIT THIS RECORD VIA PROVIDER ON THE FLY PCP - General Contact Clerk 03/15/24 documented as of this encounter
--- OUTSIDE RECORDS SUMMARY | 2025-04-09 13:12 | XMS_ITS | Encounter Summary ---
Author Organization [employer] [facility] Address [address] [place] [address] 7t [place] [address] Care Team Providers Care Consulting Solution Director Name Role Phone Macie Link DO Primary Care Provider Flor Clark PharmD Unavailable Encounter Details Date Type Department Care Team (Late st Contact Info) Description 07/27/[address] [facility] MEDICINE [address] [place] [address] Macie Link DO [address] [place] [address] Social History Tobacco Use Types Packs/Day Years [...] Description 04/23/2025 11:15 AM EST Office [address] [facility] MEDICINE [address] [place] [address] Maice Link DO 230 [place] [address] 05/15/2025 8:30 AM EST Clinical Support [facility] MEDICINE [address] [place] [address] April Murrell RN 07/01/2025 12:45 PM EST Office Visit [facility] ADULT DENTAL [address] [place], [place] [phone] Eleni Shin 230 [place] [address] documented as of this encounter Visit Diagnoses Not on filedocumented in this encounter Additional Health Concerns Assessment Noted Time PHQ-9 Depression Total Score: 2 07/06/19 23 9:23 AM EST documented as of this encounter Care Teams Consulting Solution Director Relationship Specialty Start Date End [place] [address] PCP - General Family Medicine 05/30/18 Flor Clark, [place] [address] Pharmacist Internal Medicine 08/18/23 02/20/25 documented as of this encounter
--- OUTSIDE RECORDS SUMMARY | 2025-04-09 13:12 | XMS_ITS | Encounter Summary ---
Author Organization [employer] Address 75 [facility] 7t [place] [address] Care Team Providers Care Tick Inspector Name Role Phone TiffanyMacie hamilton Primary Care Provider Flor Clark PharmD Unavailable [phone] Encounter Details Date Type Department Care Team (Late st Contact Info) Description 07/30/2022 Orders Only [facility] MEDICINE [address] [place] [address] Cassie Jeronimo MD 230 [place] [address] Chronic neck pain (Primary Dx) Social History [...] EST Office Visit [facility] MEDICINE [address] [place] [address] Macie Link DO 230 [place] [address] 05/15/2025 8:30 AM EST Clinical Support [facility] MEDICINE [address] [place] [address] April Murrell, PADILLA 07/01/2025 12:45 PM EST Office Visit [facility] ADULT DENTAL 230 [place] [address] Eleni Shin 230 [place] [address] documented as of this encounter Visit Diagnoses Diagnosis Chronic neck pain- Primary Cervicalgia documented in this encounter Additional Health Concerns Assessment Noted Time PHQ-9 Depression Total Score: 2 07/06/19 23 9:23 AM EST documented as of this encounter Care Teams Tick Inspector Relationship Specialty Start Date End Date Macie Link DO [address] [place] [address] PCP - General Family Medicine 05/30/18 Flor Clark PharmD [address] [place] [address] Pharmacist Internal Medicine 08/18/23 02/20/25 documented as of this encounter
--- OUTSIDE RECORDS SUMMARY | 2025-04-09 13:12 | XMS_ITS | Encounter Summary ---
Author Organization [employer] Address 75 [facility] 7t [place] [address] Care Team Providers Care Mba Internship Name Role Phone Macie Link DO Primary Care Provider Flor Clark PharmD Unavailable Reason for Visit * Reason Onset Date Comments Durable Medical Equipment 05/10/2022 Encounter Details Date Type Department Care Team (Late st Contact Info) Description 05/10/2022 Telephone [facility] MEDICINE [address] [place] [address] Macie Link DO [address] [place] [address] Durable Medical Equipment Social History Tobacco Use [...] 1:45 PM EST [facility] requesting status on Glucerna . States pt has tried reaching L&C and no response . Also caller is requesting a adjustable position bed. Best contact # [phone] documented in this encounter Plan of Treatment Upcoming Encounters Date Type Department Care Team (Late st Contact Info) Description 04/23/2025 11:15 AM EST Office Visit [facility] MEDICINE [address] [place] [address] Macie Link DO 230 [place] [address] 05/15/2025 8:30 AM EST Clinical Support [facility] MEDICINE [address] [place] [address] April Murrell, RN 07/01/2025 12:45 PM EST Office Visit [facility] ADULT DENTAL [address] [place] [address] Eleni Shin [address] [place] [address] documented as of this encounter Visit Diagnoses Not on filedocumented in this encounter Care Teams Mba Internship Relationship Specialty Start Date End Date Macie Link DO [address] [place] [address] PCP - General Family Medicine 05/30/18 Flor Clark PharmD [address] [place] [address] Pharmacist Internal Medicine 08/18/23 02/20/25 documented as of this encounter
--- OUTSIDE RECORDS SUMMARY | 2025-04-09 13:12 | XMS_ITS | Encounter Summary ---
Author Organization [employer] Address 75 [facility] 7t [place] [address] Care Team Providers Care Pc Network Technician Name Role Phone Macie Link DO Primary Care Provider [phone] Flor Clark PharmD Unavailable [phone] Reason for Visit * Reason Comments Med Refill Encounter Details Date Type Department Care Team (Late st Contact Info) Description 03/30/2024 Refill [facility] MEDICINE [address] [place] [address] Macie Link DO [address] [place] [address] Seasonal allergic rhinitis, unspecified trigger Social History [...] Description 04/23/2025 11:15 AM EST Office Visit [facility] MEDICINE [address] [place] [address] Macie Link DO [address] [place] [address] 05/15/2025 8:30 AM EST Clinical Support [facility] MEDICINE [address] [place] [address] April Murrell RN 07/01/2025 12:45 PM EST Office Visit [facility] ADULT DENTAL [address] [place] [address] Eleni Shin [address] [place] [address] documented as of this encounter Goals Goal [...] documented as of this encounter Care Teams Pc Network Technician Relationship Specialty Start Date End Date Macie Link DO 230 [place] [address] PCP - General Family Medicine 05/30/18 Flor Clark PharmD [address] [place] [address] Pharmacist Internal Medicine 08/18/23 02/20/25 documented as of this encounter
--- OUTSIDE RECORDS SUMMARY | 2025-04-09 13:12 | XMS_ITS | Encounter Summary ---
Author Organization [employer] Address 75 [facility] 7t [place] [address] Care Team Providers Care Card Clothier Name Role Phone Jane Linkfer Primary Care Provider [phone] Flor Clark PharmD Unavailable [phone] Encounter Details Date Type Department Care Team (Late st Contact Info) Description 09/09/2023 Orders Only [facility] MEDICINE [address] [place] [address] ProviderProsper MD Social History Tobacco Use Types [...] Description 04/23/2025 11:15 AM EST Office Visit [facility] MEDICINE [address] [place] [address] Macie Link DO 230 [place] [address] 05/15/2025 8:30 AM EST Clinical Support [facility] MEDICINE [address] [place] [address] April Murrell RN 07/01/2025 12:45 PM EST Office Visit [facility] ADULT DENTAL [address] [place] [address] Eleni Shin [address] [place] [address] documented as of this encounter Goals Goal [...] documented as of this encounter Care Teams Card Clothier Relationship Specialty Start Date End Date Macie Link DO [address] [place] [address] PCP - General Family Medicine 05/30/18 Flor Clark PharmD [address] [place] [address] Pharmacist Internal Medicine 08/18/23 02/20/25 documented as of this encounter
--- OUTSIDE RECORDS SUMMARY | 2025-04-09 13:12 | XMS_ITS | Encounter Summary ---
Author Organization [employer] [facility] Address [address] [place] [address] 7t [place] [address] Care Team Providers Care Shipping Packer Name Role Phone Macie Link DO Primary Care Provider Flor Clark PharmD Unavailable [phone] Reason for Visit * Reason Comments Med Refill Encounter Details Date Type Department Care Team (Late st Contact Info) Description 12/31/2022 Refill [facility] MEDICINE [address] [place] [address] Macie Link DO 230 [place] [address] Anxiety Social History Tobacco Use Types Packs/Day [...] Description 04/23/2025 11:15 AM EST Office Visit [facility] MEDICINE [address] [place] [address] Macie Link DO [address] [place] [address] 05/15/2025 8:30 AM EST Clinical Support [facility] MEDICINE [address] [place] [address] April Murrell RN 07/01/2025 12:45 PM EST Office Visit [facility] ADULT DENTAL [address] [place], [place] [phone] Eleni Shin [address] [place] [address] documented as of this encounter Visit Diagnoses Diagnosis Anxiety Anxiety state, unspecified documented in this encounter Additional Health Concerns Assessment Noted Time PHQ-9 Depression Total Score: 2 07/06/19 23 9:23 AM EST documented as of this encounter Care Teams Shipping Packer Relationship Specialty Start Date End Date Macie Link DO [address] [place] [address] PCP - General Family Medicine 05/30/18 Flor Clark PharmD [address] [place] [address] Pharmacist Internal Medicine 08/18/23 02/20/25 documented as of this encounter
--- OUTSIDE RECORDS SUMMARY | 2025-04-09 13:12 | XMS_ITS | Encounter Summary ---
Author Organization [employer] Address 75 [facility] 7t [place] [address] Care Team Providers Care Apartment Assistant Manager Name Role Phone Macie Link DO Primary Care Provider [phone] Flor Clark PharmD Unavailable [phone] Reason for Visit * Reason Comments Med Refill Encounter Details Date Type Department Care Team (Late st Contact Info) Description 03/11/2023 Refill [facility] MEDICINE 230 [place] [address] Macie Link DO 230 [place] [address] Chronic neck pain; Anxiety Social History Tobacco [...] Description 04/23/2025 11:15 AM EST Office Visit [facility] MEDICINE [address] [place] [address] Macie Link DO [address] [place] [address] 05/15/2025 8:30 AM EST Clinical Support [facility] MEDICINE [address] [place] [address] April Murrell RN 07/01/2025 12:45 PM EST Office Visit [facility] ADULT DENTAL [address] [place] [address] Eleni Shin [address] [place] [address] documented as of this encounter Visit Diagnoses Diagnosis Chronic neck pain Cervicalgia Anxiety Anxiety state, unspecified documented in this encounter Additional Health Concerns Assessment Noted Time PHQ-9 Depression Total Score: 2 07/06/19 23 9:23 AM EST documented as of this encounter Care Teams Apartment Assistant Manager Relationship Specialty Start Date End Date Macie Link DO [address] [place] [address] PCP - General Family Medicine 05/30/18 Flor Clark PharmD [address] [place] [address] Pharmacist Internal Medicine 08/18/23 02/20/25 documented as of this encounter
--- OUTSIDE RECORDS SUMMARY | 2025-04-09 13:12 | XMS_ITS | Encounter Summary ---
Author Organization [employer] [facility] Address [address] [place] [address] 7t [place] [address] Care Team Providers Care Change Director Name Role Phone Macie Link DO Primary Care Provider Flor Clark PharmD Unavailable Reason for Visit * Reason Comments Med Refill Encounter Details Date Type Department Care Team (Late st Contact Info) Description 08/13/2022 Refill [facility] [address] [place] [address] Macie Link DO [address] [place] [address] Anxiety Social History Tobacco Use Types Packs/Day [...] 04/23/2025 11:15 AM EST Office Visit [facility] [address] [place] [address] Macie Link DO [address] [place] [address] 05/15/2025 8:30 AM EST Clinical Support [facility] [address] [place] [address] April Murrell RN 07/01/2025 12:45 PM EST Office Visit [facility] ADULT DENTAL [address] [place], [place] [phone] Eleni Shin [address] [place] [address] documented as of this encounter Visit Diagnoses Diagnosis Anxiety Anxiety state, unspecified documented in this encounter Additional Health Concerns Assessment Noted Time PHQ-9 Depression Total Score: 2 07/06/19 23 9:23 AM EST documented as of this encounter Care Teams Change Director Relationship Specialty Start Date End Date Macie Link DO [address] [place] [address] PCP - General Family Medicine 05/30/18 Flor Clark PharmD [address] [place] [address] Pharmacist Internal Medicine 08/18/23 02/20/25 documented as of this encounter
--- OUTSIDE RECORDS SUMMARY | 2025-04-09 13:12 | XMS_ITS | Encounter Summary ---
Author Organization [employer] Address [address] [facility] 7t [place] [address] Care Team Providers Care Clinical Psychologist Licensed Name Role Phone Macie Link DO Primary Care Provider [phone] Flor Clark PharmD Unavailable [phone] Reason for Visit * Reason Comments Med Refill Encounter Details Date Type Department Care Team (Late st Contact Info) Description 03/14/[address] [facility] [address] [place] [address] Macie Link DO 230 [place] [address] Anxiety; Chronic neck pain Social History Tobacco [...] 04/23/2025 11:15 AM EST Office [facility] [address] [place] [address] Macie Link DO [address] [place] [address] 05/15/2025 8:30 AM EST Clinical [facility] [address] [place] [address] April Murrell RN 07/01/2025 12:45 PM EST Office Visit [facility] ADULT DENT[facility] [address] [place] [address] Eleni Shin [address] [place] [address] documented as of this encounter Visit Diagnoses Diagnosis Anxiety Anxiety state, unspecified Chronic neck pain Cervicalgia documented in this encounter Additional Health Concerns Assessment Noted Time PHQ-9 Depression Total Score: 2 07/06/19 23 9:23 AM EST documented as of this encounter Care Teams Clinical Psychologist Licensed Relationship Specialty Start Date End Date Macie Link DO [address] [place] [address] PCP - General Family Medicine 05/30/18 Flor Clark PharmD [address] [place] [address] Pharmacist Internal Medicine 08/18/23 02/20/25 documented as of this encounter
--- OUTSIDE RECORDS SUMMARY | 2025-04-09 13:12 | XMS_ITS ---
Author Organization [facility] Address [address] [place] [address] Care Team Providers Care Detention Officer Name Role Phone Ref, Has No Pcp Or Primary Care Provider Unavail able Transplant Episode Kidney Candidate [facility] ([place], [place]) - [facility] Evaluation began on 03/15/2024 Marked as Active on 03/15/2024 Kidney CoordinatorLynda Diaz RN Fax: N/A Email: N/A Scores Score Value Updated Exceptions/Reas ons CPRA Not available EPTS (Calc) 90 04/09/2025 [place] Organ Diagnosis Organ Primary Contributory Kidney Diabetes Mellitus - Type II Care Team Name Role Phone Fax Email Lynda Diaz RN Kidney Coordinator [phone] N/A N/A Anastacio Nickerson MD Referring Physician [phone] N/A Events Pre-Transplant Referred: 12/21/2023 Evaluation began: 03/15/2024 Appointments (03/09/2025 - 05/09/2025) When With Visit Type Description 03/19/2025 Transplant - Nick Livingston Follow U p 03/19/2025 Transplant - Ramos Pablo Follow Up Pre -transplant evaluation for kidney transplant (Primary Dx); ESRD (end stage renal disease) Dialysis History Dialysis History Start End Type Comments Center 12/17/2021 In-center Hemodialysis M, W, F [facility] Dialysis Center Information Center Phone Fax Address [facility] [phone] [address] [facility] [id number] [facility] [address]
--- OUTSIDE RECORDS SUMMARY | 2025-04-09 13:12 | XMS_ITS | Encounter Summary ---
Author Organization [employer] [facility] Address [address] [place] [address] 7t [place] [address] Care Team Providers Care Architectural Practice Manager Name Role Phone Macie Link DO Primary Care Provider Flor Clark PharmD Unavailable Encounter Details Date Type Department Care Team (Late st Contact Info) Description 06/10/[address] [address] Macie Link DO [address] [place] [address] Social History Tobacco Use Types Packs/Day Years [...] Description 04/23/2025 11:15 AM EST Office Visit [address] [address] Macie Link DO [address] [place] [address] 05/15/2025 8:30 AM EST Clinical Support [address] [address] April Murrell RN 07/01/2025 12:45 PM EST Office Visit [facility] ADULT DENTAL [address] [place] [address] Eleni Shin [address] [place] [address] documented as of this encounter Visit Diagnoses Not on filedocumented in this encounter Care Teams Architectural Practice Manager Relationship Specialty Start Date End Date Macie Link DO 230 [place] [address] PCP - General Family Medicine 05/30/18 Flor Clark PharmD [address] [place] [address] Pharmacist Internal Medicine 08/18/23 02/20/25 documented as of this encounter
--- OUTSIDE RECORDS SUMMARY | 2025-04-09 13:12 | XMS_ITS | Encounter Summary ---
Author Organization [employer] Address [address] [facility] 7t [place] [address] Care Team Providers Care Chef Name Role Phone Macie Link DO Primary Care Provider [phone] Flor Clark PharmD Unavailable [phone] Reason for Visit * Reason Onset Date Comments Appointment Request 01/30/2025 Encounter Details Date Type Department Care Team ([facility] st Contact Info) Description 01/30/2025 Telephone [facility] 230 [place] [address] Macie Link DO [address] [place] [address] Appointment Request Social History Tobacco Use Types [...] 04/23/2025 11:15 AM EST Office Visit [facility] [address] [place] [address] Macie Link DO [address] [place] [address] 05/15/2025 8:30 AM EST Clinical Support [facility] [address] [place] [address] April Murrell RN 07/01/2025 12:45 PM EST Office Visit [facility] ADULT DENTAL 230 [place] [address] Eleni Shin [address] [place] [address] documented as of this encounter Goals Goal [...] documented as of this encounter Care Teams Chef Relationship Specialty Start Date End Date Macie Link DO [address] [place] [address] PCP - General Family Medicine 05/30/18 Flor Clark PharmD [address] [place] [address] Pharmacist Internal Medicine 08/18/23 02/20/25 documented as of this encounter
--- OUTSIDE RECORDS SUMMARY | 2025-04-09 13:12 | XMS_ITS | Encounter Summary ---
Author Organization [employer] Address [address] [facility] 7t [place] [address] Care Team Providers Care Lieutenant General Name Role Phone Macie Link DO Primary Care Provider [phone] Flor Clark PharmD Unavailable [phone] Reason for Visit * Reason Onset Date Comments Prior Authorization 08/17/2023 Encounter Details Date Type Department Care Team (Late st Contact Info) Description 08/17/2023 Telephone [facility] [address] [place] [address] Macie Link DO 230 [place] [address] Prior Authorization Social History Tobacco Use Types [...] 2.5-2.5 % cream To be sent to: [facility] - [place], [place] - [address] [place] [address] documented in this encounter Plan of Treatment Upcoming Encounters Date Type Department Care Team (Late st Contact Info) Description 04/23/2025 11:15 AM EST Office Visit [address] [address] Macie Link DO 230 [place] [address] 05/15/2025 8:30 AM EST Clinical Support [address] [phone] April Murrell RN 07/01/2025 12:45 PM EST Office Visit [facility] ADULT DENTAL [address] [place], [place] [phone] Eleni Shin [address] [place], [place] [phone] documented as of this encounter Goals Goal [...] documented as of this encounter Care Teams Lieutenant General Relationship Specialty Start Date End Date Macie Link DO 230 [place] [address] PCP - General Family Medicine 05/30/18 Flor Clark PharmD [address] [place], [place] [phone] Pharmacist Internal Medicine 08/18/23 02/20/25 documented as of this encounter
--- OUTSIDE RECORDS SUMMARY | 2025-04-09 13:12 | XMS_ITS | Encounter Summary ---
Author Organization [employer] [facility] Address [address] [place] [address] 7t [place] [address] Care Team Providers Care Shutdown Planner Name Role Phone Macie Link DO Primary Care Provider Flor Clark PharmD Unavailable [phone] Reason for Visit * Reason Comments Med Refill Encounter Details Date Type Department Care Team ([facility] Contact Info) Description 10/14/2022 Refill [facility] [address] [place] [address] Macie Link DO [address] [place] [address] Anxiety Social History Tobacco Use Types Packs/Day [...] Upcoming Encounters Date Type Department Care Team ([facility] st Contact Info) Description 04/23/2025 11:15 AM EST Office Visit [facility] [address] [place] [address] Macie Link DO [address] [place] [address] 05/15/2025 8:30 AM EST Clinical Support [facility] [address] [place] [address] April Murrell, PADILLA 07/01/2025 12:45 PM EST Office Visit [facility] ADULT DENTAL [address] [place] [address] Eleni Shin [address] [place] [address] documented as of this encounter Visit Diagnoses Diagnosis Anxiety Anxiety state, unspecified documented in this encounter Additional Health Concerns Assessment Noted Time PHQ-9 Depression Total Score: 2 07/06/19 23 9:23 AM EST documented as of this encounter Care Teams Shutdown Planner Relationship Specialty Start Date End Date Macie Link DO [address] [place] [address] PCP - General Family Medicine 05/30/18 Flor Clark PharmD [address] [place] [address] Pharmacist Internal Medicine 08/18/23 02/20/25 documented as of this encounter
--- OUTSIDE RECORDS SUMMARY | 2025-04-09 13:12 | XMS_ITS | Encounter Summary ---
Author Organization [employer] Address [address] [facility] 7t [place] [address] Care Team Providers Care Senior Care Provider Name Role Phone Macie Link DO Primary Care Provider Flor Clark PharmD Unavailable [phone] Reason for Visit * Reason Comments Med Refill Encounter Details Date Type Department Care Team (Late st Contact Info) Description 08/22/2023 Refill [facility] [address] [place] [address] Macie Link DO [address] [place], [place] [phone] Chronic neck pain; Anxiety Social History Tobacco [...] EST Office Visit [facility] [address] [place] [address] Macie Link DO [address] [place] [address] 05/15/2025 8:30 AM EST Clinical Support [facility] [address] [place] [address] April Murrell RN 07/01/2025 12:45 PM EST Office Visit [facility] ADULT DENTAL [address] [place] [address] Eleni Shin [address] [place] [address] documented as of this encounter Goals Goal [...] documented as of this encounter Care Teams Senior Care Provider Relationship Specialty Start Date End Date Macie Link DO [address] [place] [address] PCP - General Family Medicine 05/30/18 Flor Clark PharmD [address] [place] [address] Pharmacist Internal Medicine 08/18/23 02/20/25 documented as of this encounter
--- OUTSIDE RECORDS SUMMARY | 2025-04-09 13:12 | XMS_ITS | Encounter Summary ---
Author Organization [employer] Address [address] [facility] 7t [place] [address] Care Team Providers Care Sap Plant Maintenance Consultant Name Role Phone Macie Link DO Primary Care Provider [phone] Flor Clark PharmD Unavailable [phone] Reason for Visit * Reason Comments Med Refill Encounter Details Date Type Department Care Team ([facility] st Contact Info) Description 01/23/2025 Refill [facility] [address] [place] [address] Macie Link DO [address] [place] [address] Chronic GERD Social History Tobacco Use Types [...] Description 04/23/2025 11:15 AM EST Office Visit [facility] [address] [place] [address] Macie Link DO [address] [place] [address] 05/15/2025 8:30 AM EST Clinical Support [address] [address] April Murrell RN 07/01/2025 12:45 PM EST Office Visit [facility] ADULT DENTAL [address] [place] [address] Eleni Shin [address] [place] [address] documented as of this encounter Goals Goal [...] documented as of this encounter Care Teams Sap Plant Maintenance Consultant Relationship Specialty Start Date End Date Macie Link DO [address] [place] [address] PCP - General Family Medicine 05/30/18 Flor Clark PharmD [address] [place] [address] Pharmacist Internal Medicine 08/18/23 02/20/25 documented as of this encounter
--- OUTSIDE RECORDS SUMMARY | 2025-04-09 13:12 | XMS_ITS | Encounter Summary ---
Author Organization [employer] [facility] Address [address] [place] [address] 7t [place] [address] Care Team Providers Care Moshgiach Name Role Phone Macie Link DO Primary Care Provider Flor Clark PharmD Unavailable [phone] Encounter Details Date Type Department Care Team (Late st Contact Info) Description 05/18/[address] [facility] [address] [place] [address] Mariella Diallo LPN Social History Tobacco Use [...] Description 04/23/2025 11:15 AM EST Office Visit [address] [address] Macie Link DO [address] [place] [address] 05/15/2025 8:30 AM EST Clinical Support [facility] [address] [place] [address] April Murrell RN 07/01/2025 12:45 PM EST Office Visit [facility] ADULT DENTAL [address] [place] [address] Eleni Shin [address] [place] [address] documented as of this encounter Visit Diagnoses Not on filedocumented in this encounter Care Teams [place]gi[place] Relationship Specialty Start Date End Date Macie Link DO 230 [place] [address] PCP - General Family Medicine 05/30/18 Flor Clark PharmD [address] [place] [address] Pharmacist Internal Medicine 08/18/23 02/20/25 documented as of this encounter
--- OUTSIDE RECORDS SUMMARY | 2025-04-09 13:12 | XMS_ITS | Encounter Summary ---
Author Organization [employer] Address [address] [facility] 7t [place] [address] Care Team Providers Care Assistant Professor Of Biology Name Role Phone TiffanyMacie hamilton Primary Care Provider [phone] Flor Clark PharmD Unavailable [phone] Encounter Details Date Type Department Care Team ([facility] st Contact Info) Description 08/13/2022 Orders Only [facility] [address] [place], [place] [phone] Cayla Sandoval MD [address] [place] [address] Type 2 diabetes mellitus with chronic kidney disease on chronic dialysis, with long-term current use of insulin ([facility]) (Primary Dx) Social History Tobacco [...] Description 04/23/2025 11:15 AM EST Office Visit [facility] [address] [place] [address] Macie Link DO [address] [place] [address] 05/15/2025 8:30 AM EST Clinical Support [facility] [address] [place] [address] April Murrell RN 07/01/2025 12:45 PM EST Office Visit [facility] ADULT DENTAL [address] [place] [address] AleidaEleni [address] [place] [address] documented as of this encounter Visit Diagnoses Diagnosis Type 2 diabetes mellitus with chronic kidney disease on chronic dialysis, with long-term current use of insulin (HCC)- Primary documented in this encounter Additional Health Concerns Assessment Noted Time PHQ-9 Depression Total Score: 2 07/06/19 23 9:23 AM EST documented as of this encounter Care Teams Assistant Professor Of Biology Relationship Specialty Start Date End Date Macie Link DO [address] [place] [address] PCP - General Family Medicine 05/30/18 Flor Clark PharmD [address] [place] [address] Pharmacist Internal Medicine 08/18/23 02/20/25 documented as of this encounter
--- OUTSIDE RECORDS SUMMARY | 2025-04-09 13:12 | XMS_ITS | Encounter Summary ---
Author Organization [employer] [facility] Address [address] [place] [address] 7t [place] [address] Care Team Providers Care Lead Driver Name Role Phone Macie Link DO Primary Care Provider Flor Clark PharmD Unavailable Reason for Visit * Reason Comments Med Refill Encounter Details Date Type Department Care Team (Late st Contact Info) Description 01/13/2023 Refill [facility] [address] [place] [address] Macie Link DO [address] [place] [address] Chronic neck pain Social History Tobacco Use [...] 04/23/2025 11:15 AM EST Office Visit [facility] [address] [place] [address] Macie Link DO [address] [place] [address] 05/15/2025 8:30 AM EST Clinical Support [facility] [address] [place] [address] April Murrell RN 07/01/2025 12:45 PM EST Office Visit [facility] ADULT DENTAL [address] [place], [place] [phone] Eleni Shin [address] [place] [address] documented as of this encounter Visit Diagnoses Diagnosis Chronic neck pain Cervicalgia documented in this encounter Additional Health Concerns Assessment Noted Time PHQ-9 Depression Total Score: 2 07/06/19 23 9:23 AM EST documented as of this encounter Care Teams Lead Driver Relationship Specialty Start Date End Date Macie Link DO [address] [place] [address] PCP - General Family Medicine 05/30/18 Flor Clark PharmD [address] [place] [address] Pharmacist Internal Medicine 08/18/23 02/20/25 documented as of this encounter
== END ==
LOC: HO.CARD 11:00
PROVIDERS: PCP Family Medicine; Visit Provider Internal Medicine Cardiovascular Disease
DX: I42.9 Cardiomyopathy, unspecified (principal)
CPT/HCPCS: 93306

== ENCOUNTER → 2025-04-09 11:04 | Outpatient (BNV) | payer OTHER, SELFPAY | PROVIDERS: PCP Family Medicine; Visit Provider Internal Medicine Cardiovascular Disease | DX: I34.81 Nonrheumatic mitral (valve) annulus calcification (principal); I35.8 Other nonrheumatic aortic valve disorders; I77.810 Thoracic aortic ectasia | CPT/HCPCS: 93306 ==

== ENCOUNTER 2025-04-15 13:32 | Emergency (ER) | payer OTHER, SELFPAY | END 2025-04-15 15:03 | disposition left against medical advice (07) | PROVIDERS: Emergency Provider Emergency Medicine; PCP Family Medicine | DX: M79.10 Myalgia, unspecified site (principal) ==

== ENCOUNTER 2025-04-16 07:31 | Emergency (ER) | payer OTHER, SELFPAY ==
[2025-04-16 07:45] VITALS: BP 129/63; PULSE 63; RESP 18; TEMP 36.8; O2SAT 99; BMI 32.1
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
[2025-04-16] MEDS: Lidocaine 4 % Patch ADH..PATCH 1 PATCH TRANSDERMA (08:09)
--- NOTE | 2025-04-16 08:12 | PC.NURSE ---
urine obtained/sent to lab. pt medicated per provider order. effectiveness pending.
[2025-04-16 08:17] LABS: Appearance Urine Clear; Glucose Urine UA Negative (Negative); PH 7.0 (5.0-9.0); Specific Gravity - Urine 1.020 (1.005-1.025); UMIC TRIGGER UACC YES
[2025-04-16 08:43] LABS: UACC Culture Trigger YES
[2025-04-16 08:50] VITALS: BP 129/63; PULSE 63; RESP 18; TEMP 36.8; O2SAT 99
== END 2025-04-16 09:06 | disposition home or self-care (01) ==
PROVIDERS: Nurse Practitioner; Emergency Provider Emergency Medicine; PCP Family Medicine
DX: Z04.1 Encounter for examination and observation following transport accident (principal); M54.50 Low back pain, unspecified; I12.0 Hypertensive chronic kidney disease with stage 5 chronic kidney disease or end stage renal disease; E11.22 Type 2 diabetes mellitus with diabetic chronic kidney disease; N18.6 End stage renal disease; I48.92 Unspecified atrial flutter; Z86.73 Personal history of transient ischemic attack (TIA), and cerebral infarction without residual deficits; I25.2 Old myocardial infarction; Z79.01 Long term (current) use of anticoagulants; Z99.2 Dependence on renal dialysis; Z90.5 Acquired absence of kidney
CPT/HCPCS: 81001; 87086; 99283; 99284

== ENCOUNTER 2025-04-19 09:45 | Outpatient (REF) | payer OTHER, SELFPAY ==
--- OUTSIDE RECORDS SUMMARY | 2025-04-17 15:00 | XMS_ITS | Encounter Summary ---
Author Organization [employer] Address [address] [facility] [address] [place] [address] Care Team Providers Care Global Position System Technician Name Role Phone Macie Link DO Primary Care Provider [phone] Encounter Details Date Type Department Care Team ([facility] st Contact Info) Description 04/17/2025 3:00 PM EST Office Visit [facility] [address], [place] [phone] Macie Link DO [address] [place] [address] Type 2 diabetes mellitus with chronic kidney [...] your housing situation today? I have erendira huaser 09/15/[address] you li [...] Sign Reading Time Taken Comments Blood Pressure 122/60 04/17/2025 3:26 PM EST Pulse 65 04/17/2025 3:26 PM EST Temperature 36.6 C (97.9 F) 04/17/2025 3:26 PM EST Respiratory Rate 19 04/17/2025 3:26 PM EST Oxygen Saturation 98% 04/17/2025 3:26 PM EST Inhaled Oxygen Concentration - - Weight 89.8 kg (198 lb) 04/17/2025 3:26 PM EST Height 167.6 cm (5' 6 ) 04/17/2025 3:26 PM EST Body Mass Index 31.96 04/17/2025 3:26 PM EST documented in this encounter Plan of Treatment Upcoming Encounters Date Type Department Care Team (Late st Contact Info) Description 05/02/2025 11:00 AM EST Clinical Support [facility] [address] [place] [id number] 05/15/2025 8:30 AM EST Clinical Support [facility] [address] [place] [address] April Murrell RN 07/01/2025 12:45 PM EST Office Visit [facility] DENT[facility] [address] [place] [address] Eleni Shin [address] [place] [address] documented as of this encounter Goals Goal Patient Goal Type Associated Problems Recent Progress Patient-Stated? Author Hemoglobin A1c < 7 Result Component 7.9(04/17/20 25 3:31 PM EST) No Flor Clark PharmD Note: [...] will continue CGM use at this time. Help patients manage their type 2 diabetes Care Plan Help patients manage their type 2 diabetes No Smith Gibson Weekly blood pressure task Care Plan Weekly blood pressure task No Smith Gibson Help patients manage their type 2 diabetes Care Plan Help patients manage their type 2 diabetes No Smith Gibson Patient has chronic kidney disease Care Plan Patient has chronic kidney disease No Smith Gibson Weekly blood pressure task Care Plan Weekly blood pressure task No Smith Gibson Patient has chronic kidney disease Care Plan Patient has chronic kidney disease No Smith Gibson Weekly blood pressure task Care Plan Weekly blood pressure task No Consuelo Charles [place] Weekly blood pressure task Care Plan Weekly blood pressure task No Consuelo Charles [place] Patient has chronic kidney disease Care Plan Patient has chronic kidney disease No Consuelo Charles [place] Patient has chronic kidney disease Care Plan Patient has chronic kidney disease No Consuelo Charles [place] Weekly blood pressure task Care Plan Weekly blood pressure task No Mayank Mena Weekly blood pressure task Care Plan Weekly blood pressure task No Mayank Mena Patient has chronic kidney disease Care Plan Patient has chronic kidney disease No Mayank Mena Patient has chronic kidney disease Care Plan Patient has chronic kidney disease No Mayank Mena Weekly blood pressure task Care Plan Weekly blood pressure task No Qian Perez RN Weekly blood pressure task Care Plan Weekly blood pressure task No Qian Perez RN Patient has chronic kidney disease Care Plan Patient has chronic kidney disease No Qian Perez RN Patient has chronic kidney disease Care Plan Patient has chronic kidney disease No Qian Perez RN Weekly blood pressure task Care Plan Weekly blood pressure task No Macie Link DO Weekly blood pressure task Care Plan Weekly blood pressure task No Macie Link DO Patient has chronic kidney disease Care Plan Patient has chronic kidney disease No Macie Link DO Patient has chronic kidney disease Care Plan Patient has chronic kidney disease No Macie Link DO documented as of this encounter Procedures Procedure Name Priority Date/Time Associated Diagnosis Comments POCT GLYCATED HEMOGLOBIN, TOTAL Routine 04/17/2025 3:31 PM EST Type 2 diabetes mellitus with chronic kidney disease on chronic dialysis, with long-term current use of insulin (HCC) POCT GLUCOSE Routine 04/17/2025 3:31 PM EST Type 2 diabetes mellitus with chronic kidney disease on chronic dialysis, with long-term current use of insulin ([facility]) documented in this encounter Results * (ABNORMAL) POCT Hgb A1c (04/17/2025 3:31 PM EST) Pathologist [facility] Hemoglobin A1C 7.9(A) 4.0 - 5.7 % QC Media Lot # [id number] Lot# Expiration Date Blood 04/17/2025 3:31 PM EST Macie Link DO POINT OF CARE TEST ENTER/EVENS T ORDERABLES Final Result * (ABNORMAL) POCT Glucose (04/17/2025 3:31 PM EST) Pathologist [facility] Glucose Blood, POC 273(A) 60 - 200 mg/dL QC Media Lot # [id number] Lot# Expiration Date 3026 Blood Capillary blood specimen / Unknown 04/17/2025 3:31 PM EST Macei Link DO POINT OF CARE TEST ENTER/EVENS T ORDERABLES Final Result documented in this encounter Visit Diagnoses Diagnosis Type 2 diabetes mellitus with chronic kidney disease on chronic dialysis, with long-term current use of insulin (HCC) documented in this encounter Additional Health Concerns Active Problems Noted Date Diagnosed Date Help patients manage their type 2 diabetes 04/10 Weekly blood pressure task 04/10/2025 Help patients manage their type 2 diabetes 04/10 Patient has chronic kidney disease 04/10/2025 Weekly blood pressure task 04/10/2025 Patient has chronic kidney disease 04/10/2025 Weekly blood pressure task 04/16/2025 Weekly blood pressure task 04/16/2025 Patient has chronic kidney disease 04/16/2025 Patient has chronic kidney disease 04/16/2025 Weekly blood pressure task 04/17/2025 Weekly blood pressure task 04/17/2025 Patient has chronic kidney disease 04/17/2025 Patient has chronic kidney disease 04/17/2025 Weekly blood pressure task 04/17/2025 Weekly blood pressure task 04/17/2025 Patient has chronic kidney disease 04/17/2025 Patient has chronic kidney disease 04/17/2025 Weekly blood pressure task 04/17/2025 Weekly blood pressure task 04/17/2025 Patient has chronic kidney disease 04/17/2025 Patient has chronic kidney disease 04/17/2025 Assessment Noted Time PHQ-9 Depression Total Score: 9 09/12/19 25 11:18 AM EDT documented as of this encounter Care Teams Global Position System Technician Relationship Specialty Start Date End Date Macie Link DO [address] [place] [id number] PCP - General Family Medicine 05/30/18 documented as of this encounter
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
--- OUTSIDE RECORDS SUMMARY | 2025-04-19 10:25 | XMS_ITS | Encounter Summary ---
Author Organization [facility], Address [address] [place] [address] Phone Care Team Providers Care Finishing Inspector Name Role Phone Macie Link DO Primary Care Provider Unava ilable Encounter Details Date Type Department Care Team (Late st Contact Info) Description 09/04/2021 Documentation Only [facility], [address] [place] [address] Romario Ford MD [address] [place] [id number] Social History Tobacco Use Types Packs/Day Years Used Date Smoking Tobacco: Former Cigarettes 0 Q uit: 07/14/1991 Alcohol Use Standard Drinks/Week [...] on filedocumented in this encounter Care Teams Finishing Inspector Relationship Specialty Start Date End Date Macie Link DO PCP - General 04/03/19 documented as of this encounter
--- OUTSIDE RECORDS SUMMARY | 2025-04-19 10:25 | XMS_ITS | Encounter Summary ---
Author Organization [employer] Address [address] [facility] [address] [place] [address] Care Team Providers Care Workers' Compensation Magistrate Name Role Phone Macie Link DO Primary Care Provider [phone] Flor Clark PharmD Unavailable Reason for Visit * Reason Comments Med Refill Encounter Details Date Type Department Care Team ([facility] st Contact Info) Description 03/29/2024 Refill [facility] [address] [place] [address] Macie Link DO [address] [place] [address] Chronic neck pain Social History Tobacco Use [...] Description 05/02/2025 11:00 AM EST Clinical Support [facility] [address] [place] [phone] 05/15/2025 8:30 AM EST Clinical Support [facility] [address] [place] [phone] April Murrell RN 07/01/2025 12:45 PM EST Office Visit [facility] ADULT DENTAL [address] [place] [phone] Eleni Shin [address] [place] [address] documented as of this encounter Goals Goal Patient Goal Type Associated Problems Recent Progress Patient-Stated? Author Hemoglobin A1c < 7 Result Component 7.9( 3:31 PM EST) No Flor Clark, Jaspreet Note: [...] documented as of this encounter Care Teams Workers' Compensation Magistrate Relationship Specialty Start Date End Date Macie Link DO [address] [place] [address] PCP - General Family Medicine 05/30/18 Flor Clark PharmD [address] [place] [address] Pharmacist Internal Medicine 08/18/23 02/20/25 documented as of this encounter
--- OUTSIDE RECORDS SUMMARY | 2025-04-19 10:25 | XMS_ITS | Encounter Summary ---
Author Organization [employer] Address [address] [facility] [address] [place] [address] Care Team Providers Care Work Over Rig Operator Name Role Phone Macie Link DO Primary Care Provider [phone] Flor Clark PharmD Unavailable [phone] Reason for Visit * Reason Comments Med Refill Encounter Details Date Type Department Care Team (Late st Contact Info) Description 05/04/2024 Refill [facility] [address] [place] [address] Macie Link DO [address] [place] [address] Hypothyroidism, unspecified type; Chronic GERD Social History [...] 11:00 AM EST Clinical Support [facility] [address] [place] [phone] 05/15/2025 8:30 AM EST Clinical Support [facility] [address] [place] [phone] April Murrell RN 07/01/2025 12:45 PM EST Office Visit [facility] [address] [place] [address] Eleni Shin [address] [place] [address] documented as of this encounter Goals Goal Patient Goal Type Associated Problems Recent Progress Patient-Stated? Author Hemoglobin A1c < 7 Result Component 7.9( 5 3:31 PM EST) No Flor Clark, PharmD Note: [...] documented as of this encounter Care Teams Work Over Rig Operator Relationship Specialty Start Date End Date Macie Link DO [address] [place] [address] PCP - General Family Medicine 05/30/18 Flor Clark PharmD [address] [place] [address] Pharmacist Internal Medicine 08/18/23 02/20/25 documented as of this encounter
--- OUTSIDE RECORDS SUMMARY | 2025-04-19 10:25 | XMS_ITS | Encounter Summary ---
Author Organization [employer] [facility] Address [address] [place] [address] [address] [place] [address] Care Team Providers Care Food Services Coordinator Name Role Phone Macie Link DO Primary Care Provider Flor Clark PharmD Unavailable [phone] Encounter Details Date Type Department Care Team (Late st Contact Info) Description 07/21/2022 Telephone [facility] MEDICINE [address] [place] [phone] Macie Link DO [address] [place] [phone] Social History Tobacco Use Types Packs/Day Years [...] Department Care Team (Late Contact Info) Description 05/02/2025 11:00 AM EST Clinical Support [facility] MEDICINE [address] [place] [phone] 05/15/2025 8:30 AM EST Clinical Support [facility] MEDICINE [address] [place] [address] April Murrell RN 07/01/2025 12:45 PM EST Office Visit [facility] ADULT DENTAL [address] [place] [address] AleidaEleni [address] [place] [address] documented as of this encounter Visit Diagnoses Not on filedocumented in this encounter Additional Health Concerns Assessment Noted Time PHQ-9 Depression Total Score: 2 07/06/19 23 9:23 AM EST documented as of this encounter Care Teams Food Services Coordinator Relationship Specialty Start Date End Date Macie Link DO [address] [place] [id number] PCP - General Family Medicine 05/30/18 Flor Clark PharmD [address] [place] [phone] Pharmacist Internal Medicine 08/18/23 02/20/25 documented as of this encounter
--- OUTSIDE RECORDS SUMMARY | 2025-04-19 10:25 | XMS_ITS | Encounter Summary ---
Author Organization [facility], Address [address] [place] [address] Phone Care Team Providers Care Electrical Engineering Director Name Role Phone Macie Link DO Primary Care Provider Unava ilable Encounter Details Date Type Department Care Team (Late st Contact Info) Description 09/01/2021 Documentation Only [facility], [address] [place] [phone] Estefania Sung PA [address] [place] [phone] Social History Tobacco Use Types Packs/Day Years [...] on filedocumented in this encounter Care Teams Electrical Engineering Director Relationship Specialty Start Date End Date Macie Link DO PCP - General 04/03/19 documented as of this encounter
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
--- OUTSIDE RECORDS SUMMARY | 2025-04-19 10:25 | XMS_ITS | Encounter Summary ---
Author Organization [facility] Address [address] [place] [address] Care Team Providers Care Data Science And Iot Manager Name Role Phone Ref, Has No Pcp Or Primary Care Provider Unavail able Encounter Details Date Type Department Care Team (Late st Contact Info) Description 06/28/2024 Orders Only [facility] Nuclear Medicine [address] [place] [address] Kandice Pacheco MD [address] [place] [address] Social History Tobacco Use Types Packs/Day Years [...] Info) Description 04/23/2025 12:15 PM EST Appointment [facility] CT [address] [place] [address] 05/09/2025 11:00 AM EST Follow-Up [facility] Building Cancer Clinic South 5th Floor [address] [place] [address] Pierce Au MD [address] [place] [address] 03/11/2026 9:40 AM EDT Follow-Up [facility] Renal Transplant [address] [place] [address] Louie Pablo MD [address] [place] [address] 03/11/2026 10:00 AM EDT Social Work [facility] Renal Transplant [address] [place] [address] Imani Livingston LICSW [address] [place] [address] documented as of this encounter Visit Diagnoses Not on filedocumented in this encounter Care Teams Data Science And Iot Manager Relationship Specialty Start Date End Date Ref, Has No Pcp Or DO NOT EDIT THIS RECORD VIA PROVIDER ON THE FLY PCP - General Tour Narrator 03/15/24 documented as of this encounter
--- OUTSIDE RECORDS SUMMARY | 2025-04-19 10:25 | XMS_ITS | Encounter Summary ---
Author Organization [facility], Address [address] [place] [address] Phone Care Team Providers Care Box Stamper Name Role Phone Macie Link DO Primary Care Provider Unava ilable Encounter Details Date Type Department Care Team (Late st Contact Info) Description 09/24/2021 Documentation Only [facility], [address] [place] [address] Romario Ford MD [address] [place] [phone] Social History Tobacco Use Types Packs/Day Years [...] on filedocumented in this encounter Care Teams Box Stamper Relationship Specialty Start Date End Date Macie Link DO PCP - General 04/03/19 documented as of this encounter
--- OUTSIDE RECORDS SUMMARY | 2025-04-19 10:25 | XMS_ITS | Encounter Summary ---
Author Organization [facility], Address [address] [place] [address] Phone Care Team Providers Care Insurance Underwriting Assistant Name Role Phone Macie Link DO Primary Care Provider Unava ilable Encounter Details Date Type Department Care Team (Late st Contact Info) Description 09/06/2021 Documentation Only [facility], [address] [place] [place] [address] Romario Ford MD [address] [place] [phone] Social History Tobacco Use Types Packs/Day Years [...] filedocumented in this encounter Care Teams Insurance Underwriting Assistant Relationship Specialty Start Date End Date Macie Link DO PCP - General 04/03/19 documented as of this encounter
--- OUTSIDE RECORDS SUMMARY | 2025-04-19 10:25 | XMS_ITS | Encounter Summary ---
Author Organization [facility], Address [address] [place] [address] Phone Care Team Providers Care Driller And Reamer Name Role Phone Macie Link DO Primary Care Provider Unava ilable Encounter Details Date Type Department Care Team (Late st Contact Info) Description 09/24/2021 Documentation Only [facility], [address] [place] [place] [address] Romario Ford MD [address] [place] [phone] Social History Tobacco Use Types Packs/Day Years [...] on filedocumented in this encounter Care Teams Driller And Reamer Relationship Specialty Start Date End Date Macie Link DO PCP - General 04/03/19 documented as of this encounter
--- OUTSIDE RECORDS SUMMARY | 2025-04-19 10:25 | XMS_ITS | Encounter Summary ---
Author Organization [facility], Address [address] [place] [address] Phone Care Team Providers Care Security Specialist Name Role Phone Macie Link DO Primary Care Provider Unava ilable Encounter Details Date Type Department Care Team (Late st Contact Info) Description 10/23/2021 Documentation Only [facility], [address] [place] [address] Romario Ford MD [address] [place] [phone] Social History Tobacco Use Types Packs/Day Years [...] on filedocumented in this encounter Care Teams Security Specialist Relationship Specialty Start Date End Date Macie Link DO PCP - General 04/03/19 documented as of this encounter
--- OUTSIDE RECORDS SUMMARY | 2025-04-19 10:25 | XMS_ITS ---
Author Organization [facility] Address [address] [place] [address] Care Team Providers Care Foundry Finisher Name Role Phone Ref, Has No Pcp [...] TotalDLP 1,501 mGy 1,501 mGy 0 mGy [id number] 21.5 mSv 21.5 mSv 0 mSv CTDIvol Max 18.2 mGy 18.2 mGy 0 mGy CTDIvol Min 14.8 mGy 14.8 mGy 0 mGy
--- OUTSIDE RECORDS SUMMARY | 2025-04-19 10:25 | XMS_ITS | Encounter Summary ---
Author Organization [facility], Address [address] [place] [address] Phone Care Team Providers Care Disc Pad Plate Filler Name Role Phone Macie Link DO Primary Care Provider Unava ilable Encounter Details Date Type Department Care Team (Late st Contact Info) Description 09/21/2021 Documentation Only [facility], [address] [place] [address] Romario Ford MD [address] [place] [phone] Social History Tobacco Use Types Packs/Day Years [...] on filedocumented in this encounter Care Teams Disc Pad Plate Filler Relationship Specialty Start Date End Date Macie Link DO PCP - General 04/03/19 documented as of this encounter
--- OUTSIDE RECORDS SUMMARY | 2025-04-19 10:25 | XMS_ITS | Encounter Summary ---
Author Organization [facility] Address [address] [place] [address] Care Team Providers Care Orthotics Prosthetics Assistant Name Role Phone Ref, Has No Pcp Or Primary Care Provider Unavail able Encounter Details Date Type Department Care Team (Late st Contact Info) Description 06/27/2024 Orders Only [facility] Interventional Radiology [address] [place] [address] Amanda Sweet MD [address] [place] [address] Social History Tobacco Use Types Packs/Day Years [...] Appointment [facility] CT [address] [place] [address] 05/09/2025 11:00 AM EST Follow-Up [facility] Building Cancer Clinic South 5th Floor [address] [place] [address] Pierce Au MD [address] [place] [address] 03/11/2026 9:40 AM EDT Follow-Up [facility] Renal Transplant [address] [place] [address] Louie Pablo MD [address] [place] [address] 03/11/2026 10:00 AM EDT Social Work [facility] Renal Transplant [address] [place] [address] Imani Livingston LICSW [address] [place] [address] documented as of this encounter Visit Diagnoses Not on filedocumented in this encounter Care Teams Orthotics Prosthetics Assistant Relationship Specialty Start Date End Date Ref, Has No Pcp Or DO NOT EDIT THIS RECORD VIA PROVIDER ON THE FLY PCP - General Cable Splicer Helper 03/15/24 documented as of this encounter
--- OUTSIDE RECORDS SUMMARY | 2025-04-19 10:25 | XMS_ITS | Encounter Summary ---
Author Organization [facility], Address [address] [place] [address] Phone Care Team Providers Care Criminal Attorney Name Role Phone Macie Link DO Primary Care Provider Unava ilable Encounter Details Date Type Department Care Team (Late st Contact Info) Description 07/10/2021 Documentation Only [facility], [address] [place] [address] Romario Ford MD [address] [place] [phone] Social History Tobacco Use Types Packs/Day Years [...] on filedocumented in this encounter Care Teams Criminal Attorney Relationship Specialty Start Date End Date Macie Link DO PCP - General 04/03/19 documented as of this encounter
--- OUTSIDE RECORDS SUMMARY | 2025-04-19 10:25 | XMS_ITS | Encounter Summary ---
Author Organization [facility], Address [address] [place] [address] Phone Care Team Providers Care Patient Consumer Marketer Name Role Phone Macie Link DO Primary Care Provider Unava ilable Encounter Details Date Type Department Care Team (Late st Contact Info) Description 07/30/2021 Documentation Only [facility], [address] [place] [address] Romario Ford MD [address] [place] [phone] Social History Tobacco Use Types Packs/Day Years [...] filedocumented in this encounter Care Teams Patient Consumer Marketer Relationship Specialty Start Date End Date Macie Link DO PCP - General 04/03/19 documented as of this encounter
--- OUTSIDE RECORDS SUMMARY | 2025-04-19 10:25 | XMS_ITS | Encounter Summary ---
Author Organization [facility], Address [address] [place] [address] Phone Care Team Providers Care Regulatory Affairs Portfolio Leader Name Role Phone Macie Link DO Primary Care Provider Unava ilable Encounter Details Date Type Department Care Team (Late st Contact Info) Description 09/06/2021 Documentation Only [facility], [address] [place] [address] Romario Ford MD [address] [place] [phone] Social History Tobacco Use Types Packs/Day Years [...] on filedocumented in this encounter Care Teams Regulatory Affairs Portfolio Leader Relationship Specialty Start Date End Date Macie Link DO PCP - General 04/03/19 documented as of this encounter
--- OUTSIDE RECORDS SUMMARY | 2025-04-19 10:25 | XMS_ITS | Encounter Summary ---
Author Organization [employer] Address [address] [facility] 7t [place] [address] Care Team Providers Care Plain Clothes Police Officer Name Role Phone Macie Link DO Primary Care Provider [phone] Flor Clark PharmD Unavailable [phone] Reason for Visit * Reason Comments Med Refill Encounter Details Date Type Department Care Team (Late st Contact Info) Description 03/30/2024 Refill [facility] MEDICINE [address] [place] [address] Macie Link DO [address] [place] [address] Seasonal allergic rhinitis, unspecified trigger Social History [...] Description 05/02/2025 11:00 AM EST Clinical Support [facility] [address] [place] [address] 05/15/2025 8:30 AM EST Clinical Support [facility] [address] [place] [address] April Murrell RN 07/01/2025 12:45 PM EST Office Visit [facility] ADULT DENTAL [address] [place] [address] Eleni Shin [address] [place] [address] documented as of this encounter Goals Goal Patient Goal Type Associated Problems Recent Progress Patient-Stated? Author Hemoglobin A1c < 7 Result Component 7.9( 5 3:31 PM EST) No Flor Clark, Jaspreet [...] documented as of this encounter Care Teams Plain Clothes Police Officer Relationship Specialty Start Date End Date Macie Link DO [address] [place] [address] PCP - General Family Medicine 05/30/18 Flor Clark PharmD [address] [place] [address] Pharmacist Internal Medicine 08/18/23 02/20/25 documented as of this encounter
--- OUTSIDE RECORDS SUMMARY | 2025-04-19 10:26 | XMS_ITS | Encounter Summary ---
Author Organization [employer] Address [address] [facility] 7t [place] [address] Care Team Providers Care Meatman Name Role Phone Macie Link DO Primary Care Provider [phone] Flor Clark PharmD Unavailable [phone] Reason for Visit * Reason Comments Med Refill Encounter Details Date Type Department Care Team (Late st Contact Info) Description 08/20/2024 Refill [facility] MED[facility]INE [address] [place] [address] Macie Link DO [address] [place] [address] Chronic neck pain; Anxiety Social History Tobacco [...] Description 05/02/2025 11:00 AM EST Clinical Support [facility] MEDICINE [address] [place] [address] 05/15/2025 8:30 AM EST Clinical Support [facility] MED[facility]INE [address] [place] [address] April Murrell RN 07/01/2025 12:45 PM EST Office Visit [facility] ADULT DENTAL [address] [place] [address] Eleni Shin [address] [place] [address] documented as of this encounter Goals Goal [...] documented as of this encounter Care Teams Meatman Relationship Specialty Start Date End Date Macie Link DO [address] [place] [address] PCP - General Family Medicine 05/30/18 Flor Clark PharmD [address] [place] [address] Pharmacist Internal Medicine 08/18/23 02/20/25 documented as of this encounter
--- OUTSIDE RECORDS SUMMARY | 2025-04-19 10:26 | XMS_ITS | Encounter Summary ---
Author Organization [facility], Address [address] [place] [address] Phone Care Team Providers Care Prepress Specialist Name Role Phone Macie Link DO Primary Care Provider Unava ilable Reason for Visit * Reason Comments Med Refill Encounter Details Date Type Department Care Team (Late st Contact Info) Description 09/08/2022 Refill [facility], [address] [place] [address] Romario Ford MD [address] [facility] [place] [phone] Social History Tobacco Use Types Packs/Day Years Used Date Smoking Tobacco: Former Cigarettes 0 Q uit: 07/14/1991 Smokeless Tobacco: Never Alcohol [...] on filedocumented in this encounter Care Teams Prepress Specialist Relationship Specialty Start Date End Date Macie Link DO PCP - General 04/03/19 documented as of this encounter
--- OUTSIDE RECORDS SUMMARY | 2025-04-19 10:26 | XMS_ITS | Encounter Summary ---
Author Organization [employer] [facility] Address [address] [place] [address] 7t [place] [address] Care Team Providers Care Spring Coverer Name Role Phone Macie Link DO Primary Care Provider Flor Clark PharmD Unavailable [phone] Encounter Details Date Type Department Care Team (Late st Contact Info) Description 07/27/2022 Abstract [facility] MEDICINE [address] [place] [address] Macie Link DO [address] [place] [address] Social History Tobacco Use Types Packs/Day Years [...] Description 05/02/2025 11:00 AM EST Clinical Support [facility] MEDICINE [address] [place] [address] 05/15/2025 8:30 AM EST Clinical Support [facility] MEDICINE [address] [place] [address] April Murrell RN 07/01/2025 12:45 PM EST Office Visit [facility] ADULT DENTAL [address] [place] [address] AleidaEleni [address] [place] [address] documented as of this encounter Visit Diagnoses Not on filedocumented in this encounter Additional Health Concerns Assessment Noted Time PHQ-9 Depression Total Score: 2 07/06/19 23 9:23 AM EST documented as of this encounter Care Teams Spring Coverer Relationship Specialty Start Date End Date Macie Link DO [address] [place] [address] PCP - General Family Medicine 05/30/18 Flor Clark PharmD [address] [place] [address] Pharmacist Internal Medicine 08/18/23 02/20/25 documented as of this encounter
--- OUTSIDE RECORDS SUMMARY | 2025-04-19 10:26 | XMS_ITS | Encounter Summary ---
Author Organization [employer] [facility] Address [address] [place] [address] 7t [place] [address] Care Team Providers Care Club Waiter/Waitress Name Role Phone Macie Link DO Primary Care Provider Flor Clark PharmD Unavailable Encounter Details Date Type Department Care Team (Late st Contact Info) Description 06/10/2022 Telephone [facility] MEDICINE [address] [place] [address] Macie Link DO [address] [place] [address] Social History Tobacco Use Types Packs/Day Years [...] Description 05/02/2025 11:00 AM EST Clinical Support [facility] MEDICINE [address] [place] [address] 05/15/2025 8:30 AM EST Clinical Support [facility] MEDICINE [address] [place] [phone] April Murrell RN 07/01/2025 12:45 PM EST Office Visit [facility] ADULT DENTAL [address] [place], [place] [phone] Eleni Shin [address] [place] [address] documented as of this encounter Visit Diagnoses Not on filedocumented in this encounter Care Teams Club Waiter/Waitress Relationship Specialty Start Date End Date Macie Link DO [address] [place] [address] PCP - General Family Medicine 05/30/18 Flor Clark PharmD [address] [place] [address] Pharmacist Internal Medicine 08/18/23 02/20/25 documented as of this encounter
--- OUTSIDE RECORDS SUMMARY | 2025-04-19 10:26 | XMS_ITS | Encounter Summary ---
Author Organization [employer] Address [address] [facility] 7t [place] [address] Care Team Providers Care Motion Picture Critic Name Role Phone Macie Link DO Primary Care Provider [phone] Flor Clark PharmD Unavailable [phone] Reason for Visit * Reason Comments Med Refill Encounter Details Date Type Department Care Team (Late st Contact Info) Description 03/05/2024 Refill [facility] MEDICINE [address] [place] [address] Macie Link DO [address] [place] [address] Seasonal allergic rhinitis, unspecified trigger Social History [...] Description 05/02/2025 11:00 AM EST Clinical Support [facility] MEDICINE [address] [place] [address] 05/15/2025 8:30 AM EST Clinical Support [facility] MEDICINE [address] [place] [phone] April Murrell RN 07/01/2025 12:45 PM EST Office Visit [facility] ADULT DENTAL [address] [place] [address] Eleni Shin [address] [place] [address] documented as of this encounter Goals Goal [...] documented as of this encounter Care Teams Motion Picture Critic Relationship Specialty Start Date End Date Macie Link DO [address] [place] [address] PCP - General Family Medicine 05/30/18 Flor Clark PharmD [address] [place] [address] Pharmacist Internal Medicine 08/18/23 02/20/25 documented as of this encounter
--- OUTSIDE RECORDS SUMMARY | 2025-04-19 10:26 | XMS_ITS | Encounter Summary ---
Author Organization [employer] [facility] Address [address] [place] [address] 7t [place] [address] Care Team Providers Care Quarter Doper Name Role Phone ArcadioMacie smith Primary Care Provider Flor Clark PharmD Unavailable [phone] Encounter Details Date Type Department Care Team (Late st Contact Info) Description 05/18/2022 Orders Only [facility] [address] [place] [address] Mariella Diallo LPN Social History Tobacco Use [...] Description 05/02/2025 11:00 AM EST Clinical Support [facility] MEDICINE [address] [place] [phone] 05/15/2025 8:30 AM EST Clinical Support [facility] MEDICINE [address] [place] [phone] April Murrell RN 07/01/2025 12:45 PM EST Office Visit [facility] ADULT DENTAL [address] [place] [address] Eleni Shin [address] [place] [address] documented as of this encounter Visit Diagnoses Not on filedocumented in this encounter Care Teams Quarter Doper Relationship Specialty Start Date End Date Macie Link DO [address] [place] [address] PCP - General Family Medicine 05/30/18 Flor Clark, Jaspreet [address] [place] [address] Pharmacist Internal Medicine 08/18/23 02/20/25 documented as of this encounter
--- OUTSIDE RECORDS SUMMARY | 2025-04-19 10:26 | XMS_ITS | Encounter Summary ---
Author Organization [employer] Address [address] [facility] 7t [place] [address] Care Team Providers Care Boiler Fireman Name Role Phone TiffanyMacie hamilton Primary Care Provider [phone] Reason for Visit * Reason Comments Med Refill Encounter Details Date Type Department Care Team ([facility] st Contact Info) Description 04/14/2025 Refill [facility] MEDICINE [address] [place] [address] Sobia Crooks MD [address] [place] [address] Pericardial effusion Social History Tobacco Use Types [...] Description 05/02/2025 11:00 AM EST Clinical Support [facility] MEDICINE [address] [place] [address] 05/15/2025 8:30 AM EST Clinical Support [facility] MEDICINE [address] [place] [phone] April Murrell RN 07/01/2025 12:45 PM EST Office Visit [facility] ADULT DENTAL [address] [place] [address] Eleni Shin [address] [place] [address] documented as of this encounter Goals Goal [...] Help patients manage their type 2 diabetes Smith Merchant Weekly blood pressure task Care Plan Weekly [...] has chronic kidney disease No Smith Gibson documented as of this encounter Visit Diagnoses [...] 04/10/2025 Patient has chronic kidney disease 04/10/2025 Assessment Noted Time PHQ-9 Depression Total Score: 9 09/12/19 25 11:18 AM EDT documented as of this encounter Care Teams Boiler Fireman Relationship Specialty Start Date End Date Macie Link DO [address] [place] [address] PCP - General Family Medicine 05/30/18 documented as of this encounter
--- OUTSIDE RECORDS SUMMARY | 2025-04-19 10:26 | XMS_ITS | Clinical Summary ---
Author Organization [facility], Address [address] [place] [address] Phone Care Team Providers Care Tongue Presser Name Role Phone Macie Link DO Primary [...] Encounters Date Type Department Care Team Description 04/01/2025 Treatment [facility], [place] [place] [address] Romario Ford MD End stage renal disease; Dependence on renal dialysis 03/25/2025 Treatment [facility], [address] [place] [address] Romario Ford MD End stage renal disease; Dependence on renal dialysis 03/22/2025 Documentation Only [facility], [address] [place] [address] Jimena Gibson MA 03/06/2025 Treatment [facility], [place] [address] [place] [address] Romario Ford MD End stage renal disease; Dependence on renal dialysis 02/20/2025 Treatment [facility], [place] [address] [place] [address] Romario Ford MD End stage renal disease; Dependence on renal dialysis 02/06/2025 Treatment [facility], [place] [address] [place] [address] Romario Ford MD End stage renal disease; Dependence on renal dialysis 01/21/2025 Treatment [facility], [place] [address] [place] [address] Romario Ford MD End stage renal disease; [...] 0 Q uit: 07/14/1991 Smokeless Tobacco: Never Tobacco [...] 10/04/2022, Additional history exists Influenza Vaccine (#1) 2025 3, 02/20/2022, 02/23/2021, Additional history exists Diabetes: Hemoglobin A1C 05/23/2025 025, 09/14/2024, 09/11/2024, Additional history exists Pneumococcal Vaccine: 50+ Years [...] (12/21/2023) Hemoglobin 10.1(L) 14.0 - 18.0 g/dL [facility] Hemoglobin x 3 30.3(L) 42.0 - 54.0 % [facility] 12/21/2023 12/22/2023 8:1 6 AM EDT Narrative [facility] - 12/22/2023 Unless otherwise specified, test(s) performed at: [facility], [address] [place] [id number] NUT SORTER OPERATOR: Jos Curran M.D. For any questions, please call customer service at FREQUENCY:OTHER Resulting Agency Comment Specimen source: Blood Anastacio Nickerson MD LAB BLOOD ORDERABLES Final Re sult [facility] See order comments or contact performing lab Unknown, [place] * (ABNORMAL) SPECIAL CHEMISTRY (11/30/2023) Hemoglobin A1C 7.3(H) 4.8 - 5.9 % [facility] 11/30/2023 12/02/2023 1:1 5 PM EDT Narrative [facility] - 12/03/2023 Unless otherwise specified, test(s) performed at: [facility], [address] [place] [id number] NUT SORTER OPERATOR: Jos Curran M.D. For any questions, please call customer service at FREQUENCY:MONTHLY Resulting Agency Comment Specimen source: Blood Anastacio Nickerson MD LAB BLOOD BANK TEST ORDERABLE S Final Result [facility] See order comments or contact performing lab Unknown, [place] from Last 3 Months or Most Recently Relevant to Health Maintenance Insurance [facility] Dual SNP ([id number]) Medicaid [place] Care Teams Tongue Presser Relationship Specialty Start Date End Date Macie Link DO PCP - General 04/03/19
--- OUTSIDE RECORDS SUMMARY | 2025-04-19 10:26 | XMS_ITS | Encounter Summary ---
Author Organization [facility], Address [address] [place] [address] Phone Care Team Providers Care Head Animal Trainer Name Role Phone Macie Link DO Primary Care Provider Unava ilable Encounter Details Date Type Department Care Team (Late st Contact Info) Description 03/22/2025 Documentation Only [facility], [address] [place] [address] Jimena Gibson PA [address] [place] [address] Social History Tobacco Use Types [...] on filedocumented in this encounter Care Teams Head Animal Trainer Relationship Specialty Start Date End Date Macie Link DO PCP - General 04/03/19 documented as of this encounter
--- OUTSIDE RECORDS SUMMARY | 2025-04-19 10:26 | XMS_ITS | Encounter Summary ---
Author Organization [facility], Address [address] [place] [address] Phone Care Team Providers Care Junk Dealer Name Role Phone Fariba Macie Primary Care Provider Unava ilable Reason for Visit * Reason Comments Med Refill Encounter Details Date Type Department Care Team (Late st Contact Info) Description 07/15/2022 Refill [facility], [address] [place] [address] Romario Ford MD [address] [facility] [place] [phone] Social History Tobacco Use Types Packs/Day Years [...] AM EST documented as of this encounter Functional Status * Question Answer Date of Assessment Author BP 103/69 07/15/2022 8:00 AM EST Mayte Doss 98.4 07/15/2022 8:00 AM EST Mayte Doss src Temporal 07/15/2022 8:00 AM EST Mayte Doss Pulse 96 07/15/2022 8:00 AM EST Doss , Mayte Resp 16 07/15/2022 8:00 AM EST Doss , Mayte SpO2 98 07/15/2022 8:00 AM EST Doss , Mayte Height 65 07/15/2022 8:00 AM EST Doss , Mayte Weight 2928 07/15/2022 8:00 AM EST Dsos , Mayte * BMI (Calculated) Answer Date of Assessment Author 30.5 07/15/2022 8:00 AM EST Doss, Ly nn * BP Location Answer Date of Assessment Author Right upper arm 07/15/2022 8:00 AM EST Doss, Ly nn * Question Answer Date of Assessment Author BP 103/69 07/15/2022 8:00 AM EST Doss , Mayte Height 65 07/15/2022 8:00 AM EST Doss , Mayte Weight 2928 07/15/2022 8:00 AM EST Doss , Mayte * BMI (Calculated) Answer Date of Assessment Author 30.5 07/15/2022 8:00 AM EST Doss, Ly nn * BP Location Answer Date of Assessment Author Right upper arm 07/15/2022 8:00 AM EST Doss, Ly nn documented as of this encounter Plan of Treatment Not on file documented as of this encounter Visit Diagnoses Not on filedocumented in this encounter Care Teams Junk Dealer Relationship Specialty Start Date End Date Macie Link DO PCP - General 04/03/19 documented as of this encounter
--- OUTSIDE RECORDS SUMMARY | 2025-04-19 10:26 | XMS_ITS | Encounter Summary ---
Author Organization [employer] Address [address] [facility] 7t [place] [address] Care Team Providers Care Forensic Science Examiner Name Role Phone Fariba Macie Primary Care Provider Flor Clark PharmD Unavailable Encounter Details Date Type Department Care Team (Late st Contact Info) Description 06/16/2022 Orders Only [facility] MED & PEDS [address] [place] [address] Macie Stiles LPN Social History Tobacco Use [...] Description 05/02/2025 11:00 AM EST Clinical Support [facility] MEDICINE [address] [place] [address] 05/15/2025 8:30 AM EST Clinical Support [facility] MEDICINE [address] [place] [address] April Murrell RN 07/01/2025 12:45 PM EST Office Visit [facility] ADULT DENTAL [address] [place] [address] Eleni Shin [address] [place] [address] documented as of this encounter Visit Diagnoses Not on filedocumented in this encounter Care Teams Forensic Science Examiner Relationship Specialty Start Date End Date Macie Link DO [address] [place] [address] PCP - General Family Medicine 05/30/18 Flor Clark PharmD [address] [place] [address] Pharmacist Internal Medicine 08/18/23 02/20/25 documented as of this encounter
--- OUTSIDE RECORDS SUMMARY | 2025-04-19 10:26 | XMS_ITS | Encounter Summary ---
Author Organization [employer] Address [address] [facility] 7t [place] [address] Care Team Providers Care Middle School Art Teacher Name Role Phone ArcadioMacie smith DO Primary Care Provider [phone] Encounter Details Date Type Department Care Team (Latest Contact Info) Description 04/17/2025 Travel Social History Tobacco Use Types Packs/Day [...] 11:00 AM EST Clinical Support [facility] MEDICINE [address] [place] [address] 05/15/2025 8:30 AM EST Clinical Support [facility] MEDICINE [address] [place] [address] April Murrell RN 07/01/2025 12:45 PM EST Office Visit [facility] ADULT DENTAL [address] [place] [address] Eleni Shin [address] [place] [address] documented as of this encounter Goals Goal Patient Goal Type Associated Problems Recent Progress Patient-Stated? Author Hemoglobin A1c < 7 Result Component 7.9(04/17/20 25 3:31 PM EST) No Flor Clark, Jaspreet [...] Link DO documented as of this encounter Visit Diagnoses Not on filedocumented in this encounter Additional Health Concerns Active [...] documented as of this encounter Care Teams Middle School Art Teacher Relationship Specialty Start Date End Date Macie Link DO [address] [place] [address] PCP - General Family Medicine 05/30/18 documented as of this encounter
--- OUTSIDE RECORDS SUMMARY | 2025-04-19 10:26 | XMS_ITS | Encounter Summary ---
Author Organization [employer] Address [address] [facility] 7t [place] [address] Care Team Providers Care Adult School Counselor Name Role Phone TiffanyMacie hamilton Primary Care Provider [phone] Flor Clark PharmD Unavailable Encounter Details Date Type Department Care Team (Late st Contact Info) Description 07/30/2022 Orders Only [facility] MEDICINE [address] [place] [address] Cassie Jeronimo MD [address] [place] [address] Chronic neck pain (Primary Dx) Social History [...] Description 05/02/2025 11:00 AM EST Clinical Support [facility] MEDICINE [address] [place] [address] 05/15/2025 8:30 AM EST Clinical Support [facility] MEDICINE [address] [place] [address] April Murrell RN 07/01/2025 12:45 PM EST Office Visit [facility] ADULT DENTAL [address] [place] [address] Eleni Shin [address] [place] [address] documented as of this encounter Visit Diagnoses Diagnosis Chronic neck pain- Primary Cervicalgia documented in this encounter Additional Health Concerns Assessment Noted Time PHQ-9 Depression Total Score: 2 07/06/19 23 9:23 AM EST documented as of this encounter Care Teams Adult School Counselor Relationship Specialty Start Date End Date Macie Link DO [address] [place] [address] PCP - General Family Medicine 05/30/18 Flor Clark PharmD [address] [place] [address] Pharmacist Internal Medicine 08/18/23 02/20/25 documented as of this encounter
--- OUTSIDE RECORDS SUMMARY | 2025-04-19 10:26 | XMS_ITS | Encounter Summary ---
Author Organization [facility], Address [address] [place] [address] Phone Care Team Providers Care Firebrick Layer Name Role Phone Macie Link DO Primary Care Provider Unava ilable Encounter Details Date Type Department Care Team (Late st Contact Info) Description 07/19/2022 Documentation Only [facility], [address] [place] [address] Joya HornerRANGER, [place] [address] [place] [address] Social History Tobacco Use Types [...] on filedocumented in this encounter Care Teams Firebrick Layer Relationship Specialty Start Date End Date Macie Link DO PCP - General 04/03/19 documented as of this encounter
--- OUTSIDE RECORDS SUMMARY | 2025-04-19 10:26 | XMS_ITS | Encounter Summary ---
Author Organization [employer] Address [address] [facility] 7t [place] [address] Care Team Providers Care Diet Counselor Name Role Phone TiffanyMacie hamilton Primary Care Provider [phone] Flor Clark PharmD Unavailable [phone] Encounter Details Date Type Department Care Team ([facility] st Contact Info) Description 08/13/2022 Orders Only [facility] CHC MED & PEDS [address] [place], [place] [phone] Cayla Sandoval MD 505 [place] [address] Type 2 diabetes mellitus with chronic kidney disease on chronic dialysis, with long-term current use of insulin ([facility]) (Primary Dx) Social History Tobacco Use Types [...] Description 05/02/2025 11:00 AM EST Clinical Support [facility] MEDICINE [address] [place] [phone] 05/15/2025 8:30 AM EST Clinical Support [facility] MEDICINE [address] [place] [address] April Murrell RN 07/01/2025 12:45 PM EST Office Visit [facility] ADULT DENTAL [address] [place] [address] Eleni Shin [address] [place] [address] documented as of this encounter Visit Diagnoses Diagnosis Type 2 diabetes mellitus with chronic kidney disease on chronic dialysis, with long-term current use of insulin (HCC)- Primary documented in this encounter Additional Health Concerns Assessment Noted Time PHQ-9 Depression Total Score: 2 07/06/19 23 9:23 AM EST documented as of this encounter Care Teams Diet Counselor Relationship Specialty Start Date End Date Macie Link DO [address] [place] [address] PCP - General Family Medicine 05/30/18 Flor Clark PharmD [address] [place] [address] Pharmacist Internal Medicine 08/18/23 02/20/25 documented as of this encounter
--- OUTSIDE RECORDS SUMMARY | 2025-04-19 10:26 | XMS_ITS | Encounter Summary ---
Author Organization [facility], Address [address] [place] [address] Phone Care Team Providers Care Chainstitch Seat Joiner Name Role Phone Macie Link DO Primary Care Provider Unava ilable Reason for Visit * Reason Comments Med Refill Encounter Details Date Type Department Care Team (Late st Contact Info) Description 07/23/2022 Refill [facility], [address] [place] [address] Romario Ford MD [address] [facility] [place] [phone] Social History Tobacco Use Types Packs/Day Years [...] on filedocumented in this encounter Care Teams Chainstitch Seat Joiner Relationship Specialty Start Date End Date Macie Link DO PCP - General 04/03/19 documented as of this encounter
--- OUTSIDE RECORDS SUMMARY | 2025-04-19 10:26 | XMS_ITS | Encounter Summary ---
Author Organization [employer] Address [address] [facility] 7t [place] [address] Care Team Providers Care Display Maker Name Role Phone Fariba Macie Primary Care Provider Flor Clark PharmD Unavailable Encounter Details Date Type Department Care Team (Late st Contact Info) Description 05/25/2022 Orders Only [facility] CHC MED & PEDS [address] [place] [address] Macei Stiles LPN Social History Tobacco Use Types [...] Description 05/02/2025 11:00 AM EST Clinical Support [facility] MEDICINE [address] [place] [phone] 05/15/2025 8:30 AM EST Clinical Support [facility] [address] [place] [address] April Murrell RN 07/01/2025 12:45 PM EST Office Visit [facility] ADULT DENTAL [address] [place] [address] Eleni Shin [address] [place] [address] documented as of this encounter Visit Diagnoses Not on filedocumented in this encounter Care Teams Display Maker Relationship Specialty Start Date End Date Macie Link DO [address] [place] [address] PCP - General Family Medicine 05/30/18 Flor Clark PharmD [address] [place] [address] Pharmacist Internal Medicine 08/18/23 02/20/25 documented as of this encounter
--- OUTSIDE RECORDS SUMMARY | 2025-04-19 10:26 | XMS_ITS | Encounter Summary ---
Author Organization [employer] [facility] Address [address] [place] [address] 7t [place] [address] Care Team Providers Care Solution Make Up Operator Name Role Phone Macie Link DO Primary Care Provider Flor Clark PharmD Unavailable Reason for Visit * Reason Comments Med Refill Encounter Details Date Type Department Care Team ([facility] Contact Info) Description 10/14/2022 Refill [facility] MEDICINE [address] [place] [address] Macie Link DO [address] [place] [address] Anxiety Social History Tobacco Use Types Packs/Day [...] Upcoming Encounters Date Type Department Care Team ([facility] st Contact Info) Description 05/02/2025 11:00 AM EST Clinical Support [facility] MEDICINE [address] [place] [address] 05/15/2025 8:30 AM EST Clinical Support [facility] MEDICINE [address] [place] [address] Aprli Murrell RN 07/01/2025 12:45 PM EST Office Visit [facility] ADULT DENTAL [address] [place] [address] Eleni Shin [address] [place] [address] documented as of this encounter Visit Diagnoses Diagnosis Anxiety Anxiety state, unspecified documented in this encounter Additional Health Concerns Assessment Noted Time PHQ-9 Depression Total Score: 2 07/06/19 23 9:23 AM EST documented as of this encounter Care Teams Solution Make Up Operator Relationship Specialty Start Date End Date Macie Link DO [address] [place] [address] PCP - General Family Medicine 05/30/18 Flor Clark PharmD [address] [place] [address] Pharmacist Internal Medicine 08/18/23 02/20/25 documented as of this encounter
--- OUTSIDE RECORDS SUMMARY | 2025-04-19 10:26 | XMS_ITS | Encounter Summary ---
Author Organization [employer] Address [address] [facility] 7t [place] [address] Care Team Providers Care Scientific Glass Blower Name Role Phone FaribaMacie Primary Care Provider [phone] Encounter Details Date Type Department Care Team ([facility] st Contact Info) Description 04/16/2025 Orders Only GENERIC EXTERNAL DATA DEPARTMENT Provider, Generic External Data Social History Tobacco Use Types Packs/Day Years [...] Description 05/02/2025 11:00 AM EST Clinical Support [facility] MEDICINE [address] [place] [address] 05/15/2025 8:30 AM EST Clinical Support [facility] MEDICINE [address] [place], [place] [phone] April Murrell RN 07/01/2025 12:45 PM EST Office Visit [facility] ADULT DENTAL [address] [place], [place] [phone] Eleni Shin [address] [place] [address] documented as of this encounter Goals Goal Patient Goal Type Associated Problems Recent Progress Patient-Stated? Author Hemoglobin A1c < 7 Result Component 7.9( 3:31 PM EST) No Flor Clark PharmD [...] chronic kidney disease No Consuelo Charles [place] documented as of this encounter Procedures Procedure Name Priority Date/Time Associated Diagnosis Comments URINALYSIS, COMPLETE, WITH REFLEX TO CULTURE Routine 04/16/2025 8:11 AM EST CULTURE, URINE, ROUTINE Routine 04/16/2025 12:00 AM EST documented in this encounter Results * (ABNORMAL) Urinalysis, Complete, with Reflex to Culture (04/16/2025 8:11 AM EST) Color Urine Yellow [facility] Appearance Urine Clear [facility] PH 7.0 5.0 - 9.0 [facility] Glucose Urine UA Negative Negative mg/dL [facility] Urine Blood Negative Negative [facility] Specific [place] - Urine 1.020 1.005 - 1.025 [facility] Urine Protein 300 (3+)(A) Neg-Trace mg/dL [facility] Urine Ketones Trace Negative mg/dL [facility] Nitrite Urine Negative Negative [facility] Leukocyte Esterase Urine Small (1+)(A) Negative [facility] RBC Urine 0-2 0 - 2 /HPF [facility] Urine WBC 0-5 0 - 5 /HPF [facility] Urine Squamous Epithelial Cell 0-2 0 - 2 /HPF [facility] Urine Bacteria None Seen None Seen [facility] Hyaline Casts, Urine 0-2 0 - 2 /LPF [facility] GRANULAR CASTS (#/HPF) IN URINE Present [facility] 04/16/2025 8:11 AM EST 04/16/2025 8:14 AM EST Narrative [facility] - 04/16/2025 8:45 AM EST [id number], Clean Catch us Generic External Data Provider LAB URINE ORDERAB LES Final Result Performing Organization Address City/[facility]/ZIP Co de Phone Number [facility] [address] [place] [phone] * Culture, Urine, Routine (04/16/2025 12:00 AM EST) Urine Urine specimen obtained by clean catch procedure / Unknown 04/16/2025 04/16/2025 Comment:UACC Narrative [facility] - 04/17/2025 1:25 PM EST Urine Culture No growth. Specimen Source: Urine clean catch Generic External Data Provider LAB MICROBIOLOGY - GENERAL ORDERABLES Final Result Performing Organization Address City/[facility]/ZIP Co de Phone Number [facility] [address] [place] [phone] documented in this encounter Visit Diagnoses Not [...] 04/16/2025 Patient has chronic kidney disease 04/16/2025 Assessment Noted Time PHQ-9 Depression Total Score: 9 09/12/19 25 11:18 AM EDT documented as of this encounter Care Teams Scientific Glass Blower Relationship Specialty Start Date End Date Macie Link DO [address] [place] [address] PCP - General Family Medicine 05/30/18 documented as of this encounter
--- OUTSIDE RECORDS SUMMARY | 2025-04-19 10:26 | XMS_ITS | Encounter Summary ---
Author Organization [employer] Address [address] [facility] 7t [place] [address] Care Team Providers Care Corporate Controller Name Role Phone Macie Link DO Primary Care Provider [phone] Flor Clark PharmD Unavailable Reason for Visit * Reason Comments Med Refill Encounter Details Date Type Department Care Team (Late st Contact Info) Description 02/06/2024 Refill [facility] MEDICINE [address] [place] [address] Macie Link DO [address] [place] [address] Chronic neck pain; Anxiety Social History Tobacco [...] Description 05/02/2025 11:00 AM EST Clinical Support [facility] MEDICINE [address] [place] [phone] 05/15/2025 8:30 AM EST Clinical Support [facility] MEDICINE [address] [place] [address] April Murrell RN 07/01/2025 12:45 PM EST Office Visit [facility] ADULT DENTAL [address] [place] [address] Eleni Shin [address] [place] [address] documented as of this encounter Goals Goal [...] as of this encounter Care Teams Corporate Controller Relationship Specialty Start Date End Date Macie Link DO [address] [place] [address] PCP - General Family Medicine 05/30/18 Flor Clark PharmD [address] [place] [address] Pharmacist Internal Medicine 08/18/23 02/20/25 documented as of this encounter
--- OUTSIDE RECORDS SUMMARY | 2025-04-19 10:26 | XMS_ITS | Encounter Summary ---
Author Organization [employer] [facility] Address [address] [place] [address] 7t [place] [address] Care Team Providers Care Electroplating Laborer Name Role Phone Macie Link DO Primary Care Provider Flor Clark PharmD Unavailable Reason for Visit * Reason Comments Med Refill Encounter Details Date Type Department Care Team (Late st Contact Info) Description 08/13/2022 Refill [facility] MEDICINE [address] [place] [phone] Macie Link DO [address] [place] [address] Anxiety Social History Tobacco Use Types Packs/Day [...] 05/02/2025 11:00 AM EST Clinical Support [facility] MEDICINE [address] [place] [address] 05/15/2025 8:30 AM EST Clinical Support [facility] MEDICINE [address] [place] [address] April Murrell RN 07/01/2025 12:45 PM EST Office Visit [facility] ADULT DENTAL [address] [place] [address] Fitz Shinaris [address] [place] [address] documented as of this encounter Visit Diagnoses Diagnosis Anxiety Anxiety state, unspecified documented in this encounter Additional Health Concerns Assessment Noted Time PHQ-9 Depression Total Score: 2 07/06/19 23 9:23 AM EST documented as of this encounter Care Teams Electroplating Laborer Relationship Specialty Start Date End Date Macie Link DO [address] [place] [address] PCP - General Family Medicine 05/30/18 Flor Clark PharmD [address] [place] [address] Pharmacist Internal Medicine 08/18/23 02/20/25 documented as of this encounter
--- OUTSIDE RECORDS SUMMARY | 2025-04-19 10:26 | XMS_ITS | Encounter Summary ---
Author Organization [employer] Address 75 [facility] 7t [place] [address] Care Team Providers Care Executive Relations Specialist Name Role Phone Macie Link DO Primary Care Provider [phone] Flor Clark PharmD Unavailable Reason for Visit * Reason Onset Date Comments Durable Medical Equipment 05/10/2022 Encounter Details Date Type Department Care Team (Late st Contact Info) Description 05/10/2022 Telephone [facility] MEDICINE [address] [place] [address] Macie Link DO [address] [place] [address] Durable Medical Equipment Social History Tobacco Use [...] 1:45 PM EST Tc from jesus from [facility] care requesting status on Glucerna . States pt has tried reaching L&C and no response . Also caller is requesting a adjustable position bed. Best contact # [phone] documented in this encounter Plan of Treatment Upcoming Encounters Date Type Department Care Team (Late st Contact Info) Description 05/02/2025 11:00 AM EST Clinical Support [facility] MEDICINE [address] [place] [address] 05/15/2025 8:30 AM EST Clinical Support [facility] MEDICINE [address] [place] [address] April Murrell, RN 07/01/2025 12:45 PM EST Office Visit [facility] ADULT DENTAL [address] [place] [address] Eleni Shin [address] [place] [address] documented as of this encounter Visit Diagnoses Not on filedocumented in this encounter Care Teams Executive Relations Specialist Relationship Specialty Start Date End Date Macie Link DO [address] [place] [address] PCP - General Family Medicine 05/30/18 Flor Clark PharmD [address] [place] [address] Pharmacist Internal Medicine 08/18/23 02/20/25 documented as of this encounter
--- OUTSIDE RECORDS SUMMARY | 2025-04-19 10:26 | XMS_ITS | Encounter Summary ---
Author Organization [employer] Address 75 [facility] 7t [place] [address] Care Team Providers Care Camp Cook Name Role Phone Macie Link DO Primary Care Provider [phone] Reason for Visit * Reason Onset Date Comments Chart Prep 04/16/2025 Encounter Details Date Type Department Care Team ([facility] Contact Info) Description 04/16/2025 Telephone [facility] MEDICINE [address] [place], [place] [phone] Macie Link DO [address] [place] [address] Chart Prep Social History Tobacco Use Types Packs/Day Years [...] Telephone Encounter - Consuelo Charles MA - 04/16/2025 8:39 AM EST Chart Prep Labs: done Images: done Referrals: not applicable Vaccines due: Hep A Screenings: colonoscopy and foot exam Overdue care gaps: A1c, Glucose, PHQ-9, and CLAIRE-7 documented in this encounter Plan of Treatment Upcoming Encounters Date Type Department Care Team (Late st Contact Info) Description 05/02/2025 11:00 AM EST Clinical Support [facility] MEDICINE [address] [place] [address] 05/15/2025 8:30 AM EST Clinical Support [facility] MEDICINE [address] [place] [address] April Murrell RN 07/01/2025 12:45 PM EST Office Visit [facility] ADULT DENTAL [address] [place] [address] Eleni Shin [address] [place] [address] documented as of this encounter Goals Goal Patient Goal Type Associated Problems Recent Progress Patient-Stated? Author Hemoglobin A1c < 7 Result Component 7.9( 3:31 PM EST) No PuFlor quinones PharmD Note: A1c value is falsely low [...] Plan Weekly blood pressure task No Consuelo Charels MA Patient has chronic kidney disease Care Plan Patient has chronic kidney disease No Consuelo Charles MA Patient has chronic kidney disease Care Plan Patient has chronic kidney disease No Consuelo Charles MA documented as of this encounter Visit [...] documented as of this encounter Care Teams Camp Cook Relationship Specialty Start Date End Date Macie Link DO [address] [place] [address] PCP - General Family Medicine 05/30/18 documented as of this encounter
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
--- OUTSIDE RECORDS SUMMARY | 2025-04-19 10:26 | XMS_ITS | Encounter Summary ---
Author Organization [employer] Address 75 [facility] 7t [place] [address] Care Team Providers Care Wood Type Cutter Name Role Phone Macie Link DO Primary Care Provider Flor Clark PharmD Unavailable [phone] Encounter Details Date Type Department Care Team ([facility] st Contact Info) Description 10/10/2024 Telephone [facility] MEDICINE [address] [place], [place] [phone] Macie Link DO [address] [place] [address] Social History Tobacco Use Types Packs/Day Years [...] 11:00 AM EST Clinical Support [facility] MEDICINE [address] [place] [address] 05/15/2025 8:30 AM EST Clinical Support [facility] MEDICINE [address] [place] [address] April Murrell RN 07/01/2025 12:45 PM EST Office Visit [facility] ADULT DENTAL [address] [place] [address] Eleni Shin [address] [place] [address] documented as of this encounter Goals Goal [...] as of this encounter Care Teams Wood Type Cutter Relationship Specialty Start Date End Date Macie Link DO [address] [place] [address] PCP - General Family Medicine 05/30/18 Flor Clark, Jaspreet [address] [place] [address] Pharmacist Internal Medicine 08/18/23 02/20/25 documented as of this encounter
--- OUTSIDE RECORDS SUMMARY | 2025-04-19 10:27 | XMS_ITS | Clinical Summary ---
Author Organization [facility] Address [address] [place] [address] Care Team Providers Care Mutual Fund Sales Agent Name Role Phone Ref, Has No Pcp [...] THE EVENING 5 Active FreeStyle Gurmeet 2 [place] misc SMARTSIG:As Directed 4 Active FreeStyle Gurmeet [...] Active ipratropium (ATROVENT) 0.03% nasal spray SMARTSI Cromona(s) Both Nares 3 Times Daily Active Accu-Chek [...] Description 03/19/2025 9:30 AM EDT Social Work [facility] Renal Transplant [address] [place] [address] Imani Livingston LICSW 03/19/2025 9:00 AM EDT Follow-Up [facility] Transplant [address] [place] [address] Louie Pablo MD Pre-transplant evaluation for kidney transplant (Primary Dx); ESRD (end stage renal disease) 01/25/2025 Orders Only [facility] Interventional Radiology [address] [place] [address] Sharan Alcazar MD from Last 3 Months Immunizations Immunization Administration Dates Next Due COVID-19, Moderna, mRNA, LNP -S, Bivalent Booster, PF 03/12/2022 Hepatitis B vaccine (HEPLISA V-B) vaccine 0.5 mL IM 12/29/2022,11/03/2022,10/04/2022,2022 Pneumococcal conjugate PCV20,polysaccharide [id number] conjugate, adjuvant, PF (Prevnar 20) 06/22/2023 Social [...] [facility] CT [address] [place], [place] [phone] 05/09/2025 11:00 AM EST Follow-Up [facility] 5th Floor [address] [place] [address] Pierce Au MD [address] [place], [place] [phone] 03/11/2026 9:40 AM EDT Follow-Up [facility] Renal Transplant [address] [place] [address] Louie Pablo MD [address] [place] [address] 03/11/2026 10:00 AM EDT Social Work [facility] Renal Transplant [address] [place] [address] Imani Livingston LICSW [address] [place] [address] Health Maintenance Due Date Last Done Comments [...] Nephrology Completed 03/19/2025 Procedures * Due to [place] milabent law, this organization might not be sharing [...] to Health Maintenance Results * Due to [place] milabent law, this organization might not be sharing negative HIV tests. * (ABNORMAL) Basic Metabolic Panel (07/06/2024 11:59 AM EST) NA 138 135 - 145 mmol/L 07/06/2024 12:39 PM EST [facility] K 4.4 3.5 - 5.3 mmol/L 07/06/2024 12:39 PM EST [facility] Cl 96(L) 98 - 107 mmol/L 07/06/2024 12:39 PM EST [facility] CO2 30 22 - 32 mmol/L 07/06/2024 12:39 PM EST [facility] BUN 19 7 - 23 mg/dL 07/06/2024 12:39 PM EST [facility] Creatinine 5.41(H) 0.60 - 1.30 mg/dL 07/06/2024 12:39 PM EST [facility] Glucose 147(H) 65 - 99 mg/dL 07/06/2024 12:39 PM EST [facility] Calcium 9.7 8.6 - 10.5 mg/dL 07/06/2024 12:39 PM EST [facility] Anion Gap 12 5 - 15 07/06/2024 12:39 PM EST [facility] eGFR 11(L) >=60 mL/min/1 .73m2 07/06/2024 12:39 PM EST [facility] Comment:The estimated glomer ular [...] MD LAB BLOOD ORDERABLES Final Resu lt [facility] [address] [place] [address], [place] * (ABNORMAL) CBC Auto Differential (03/15/2024 12:39 PM EDT) WBC 6.2 3.8 - 10.8 10*3/uL 03/15/2024 1:11 PM EDT [facility] RBC 3.90(L) 4.20 - 5.80 10*6/uL 03/15/2024 1:11 PM EDT [facility] Hemoglobin 11.9(L) 13.2 - 17.1 g/dL 03/15/2024 1:11 PM EDT [facility] Hematocrit 36.8(L) 38.5 - 50.0 % 03/15/2024 1:11 PM EDT [facility] MCV 94.4 80.0 - 100.0 fL 03/15/2024 1:11 PM EDT [facility] MCH 30.5 27.0 - 33.0 pg 03/15/2024 1:11 PM EDT [facility] MCHC 32.3 32.0 - 36.0 g/dL 03/15/2024 1:11 PM EDT [facility] RDW 14.2 11.0 - 15.0 % 03/15/2024 1:11 PM EDT [facility] Platelets 175 140 - 400 10*3/uL 03/15/2024 1:11 PM EDT [facility] MPV 11.3 7.5 - 12.5 fL 03/15/2024 1:11 PM EDT [facility] Neutrophil % 59.1 % 03/15/2024 1:11 PM EDT [facility] Immature Grans % 0.2 0.0 - 0.9 % 03/15/2024 1:11 PM EDT [facility] Lymphocyte % 28.1 % 03/15/2024 1:11 PM EDT [facility] Monocyte % 9.9 % 03/15/2024 1:11 PM EDT [facility] Eosinophil % 2.4 % 03/15/2024 1:11 PM EDT [facility] Basophil % 0.3 % 03/15/2024 1:11 PM EDT [facility] Neutrophil # 3.63 1.50 - 7.80 10*3/uL 03/15/2024 1:11 PM EDT [facility] Immature Grans # <0.03 <=0.03 10*3/uL 03/15/2024 1:11 PM EDT [facility] Lymphocyte # 1.70 0.85 - 3.90 10*3/uL 03/15/2024 1:11 PM EDT [facility] Monocyte # 0.60 0.20 - 0.95 10*3/uL 03/15/2024 1:11 PM EDT [facility] Eosinophil # 0.20 0.02 - 0.50 10*3/uL 03/15/2024 1:11 PM EDT [facility] Basophil # <0.03 0.00 - 0.20 10*3/uL 03/15/2024 1:11 PM EDT [facility] nRBC % 0.0 /100 WBCs 03/15/2024 1:11 PM EDT [facility] nRBC # <0.01 <0.01 10*3/uL 03/15/2024 1:11 PM EDT [facility] Blood Structure of peripheral vein / Unknown Venipuncture / Unknown 03/15/2024 12:39 PM EDT 03/15/2024 12:59 PM EDT Tobias Vogt MD LAB BLOOD ORDERABLES Final Result [facility] [address] [place] [address], [place] * Hepatitis C Antibody w/Reflex to PCR (03/15/2024 12:39 PM EDT) Hepatitis C Antibody NON-REACT ALBINO NON-REACT ALBINO 03/16/2024 3:27 AM EDT [facility] Comment: HCV antibody was non-reactive. There is no laboratory evidence of HCV infection. In most cases, no further action is required. However, if recent HCV exposure is suspected, a test for HCV RNA (test code 45371) is suggested. For additional information please refer to http://education.CrowdPC/faq/TEH79l3 (This link is being provided for informational/ educational purposes only.) Blood Structure of peripheral vein / Unknown Venipuncture / Unknown 03/15/2024 12:39 PM EDT 03/15/2024 12:58 PM EDT Narrative [facility] - 03/16/2024 3:27 AM EDT [facility] Received Date:[id number] Tobias Vogt MD LAB BLOOD ORDERABLES Final Result Performing Organization Address City/[facility]/ZIP Co de Phone Number [facility] [address] [facility] 3rd [address], [place] [address], [place] [phone] [employer] [facility] [address] [facility] 3rd Floor, [place] [address], [place] [phone] * Phosphorus (03/15/2024 12:39 PM EDT) Phosphorus 3.4 2.5 - 4.5 mg/dL 03/15/2024 1:45 PM EDT [facility] Blood Structure of peripheral vein / Unknown Venipuncture / Unknown 03/15/2024 12:39 PM EDT 03/15/2024 12:58 PM EDT Tobias Vogt MD LAB BLOOD ORDERABLES Final Result [facility] [address] [place] [address], [place] * (ABNORMAL) Hemoglobin A1c (03/15/2024 12:39 PM EDT) Hemoglobin A1C 6.3(H) <5.7 % of total Hgb 03/16/2024 2:05 AM EDT [email or web address] Comment: For someone without known diabetes, a [...] (MG/DL) 134 mg/dL 03/16/2024 2:05 AM EDT [facility] eAG (MMOL/L) 7.4 mmol/L 03/16/2024 2:05 AM EDT [facility] Blood Structure of peripheral vein / Unknown Venipuncture / Unknown 03/15/2024 12:39 PM EDT 03/15/2024 12:59 PM EDT Narrative [facility] - 03/16/2024 2:05 AM EDT [facility] Received Date:[id number] Tobias Vogt MD LAB BLOOD ORDERABLES Final Result ELIUD DOMÍNGUEZ [address] [facility] [address], [place] [address], [place] [phone] [facility] [address] [facility] 3rd [address], [place] [address], [place] [phone] from Last 3 Months or Most Recently Relevant to Health Maintenance Insurance [facility] Advance Directives Documents on File Type Date Recorded Patient Senior Software Quality Engineer Expl anation Health Care Proxy 03/20/2024 5:28 PM 10- Care Teams Mutual Fund Sales Agent Relationship Specialty Start Date End Date Ref, Has No Pcp Or DO NOT EDIT THIS RECORD VIA PROVIDER ON THE FLY PCP - General Brush Polisher 03/15/24
--- OUTSIDE RECORDS SUMMARY | 2025-04-19 10:27 | XMS_ITS | Encounter Summary ---
Author Organization [employer] Address 75 [facility] 7t [place] [address] Care Team Providers Care Office Clerk Routine Name Role Phone Macie Link DO Primary Care Provider [phone]- [phone] Flor Clark PharmD Unavailable [phone] Reason for Visit * Reason Comments Med Refill Encounter Details Date Type Department Care Team (Late st Contact Info) Description 12/12/2023 Refill [facility] MEDICINE [address] [place] [address] Macie Link DO [address] [place] [address] Anxiety; Chronic neck pain Social History Tobacco [...] Clinical Support [facility] MEDICINE [address] [place] [address] 05/15/2025 8:30 AM EST Clinical Support [facility] MEDICINE [address] [place] [address] April Murrell RN 07/01/2025 12:45 PM EST Office Visit [facility] ADULT DENTAL [address] [place] [address] Eleni Shin [address] [place] [address] documented as of this encounter Goals Goal [...] documented as of this encounter Care Teams Office Clerk Routine Relationship Specialty Start Date End Date Macie Link DO [address] [place] [address] PCP - General Family Medicine 05/30/18 Flor Clark PharmD [address] [place] [address] Pharmacist Internal Medicine 08/18/23 02/20/25 documented as of this encounter
--- OUTSIDE RECORDS SUMMARY | 2025-04-19 10:27 | XMS_ITS | Encounter Summary ---
Author Organization [employer] Address 75 [facility] 7t [place] [address] Care Team Providers Care Caltrans Equipment Operator Name Role Phone Macie Link DO Primary Care Provider [phone]- [phone] Flor Clark PharmD Unavailable [phone] Reason for Visit * Reason Comments Med Refill Encounter Details Date Type Department Care Team ([facility] st Contact Info) Description 05/24/2024 Refill [facility] MEDICINE [address] [place] [address] Macie Link DO [address] [place] [address] Anxiety Social History Tobacco Use Types Packs/Day [...] Description 05/02/2025 11:00 AM EST Clinical Support [facility] MEDICINE [address] [place] [phone] 05/15/2025 8:30 AM EST Clinical Support [facility] MEDICINE [address] [place] [address] April Murrell RN 07/01/2025 12:45 PM EST Office Visit [facility] ADULT DENTAL [address] [place] [address] Eleni Shin [address] [place] [address] documented as of this encounter Goals Goal [...] documented as of this encounter Care Teams Caltrans Equipment Operator Relationship Specialty Start Date End Date Macie Link DO [address] [place] [address] PCP - General Family Medicine 05/30/18 Flor Clark PharmD [address] [place] [address] Pharmacist Internal Medicine 08/18/23 02/20/25 documented as of this encounter
--- OUTSIDE RECORDS SUMMARY | 2025-04-19 10:27 | XMS_ITS | Encounter Summary ---
Author Organization [employer] Address 75 [facility] 7t [place] [address] Care Team Providers Care Dianeticist Name Role Phone Macie Link DO Primary Care Provider [phone]- [phone] Flor Clark PharmD Unavailable [phone] Reason for Visit * Reason Comments Med Refill Encounter Details Date Type Department Care Team (Late st Contact Info) Description 06/01/2023 Refill [facility] MEDICINE [address] [place] [address] Macie Link DO [address] [place] [address] Anxiety; Chronic neck pain Social History Tobacco [...] Description 05/02/2025 11:00 AM EST Clinical Support [facility] MEDICINE [address] [place] [phone] 05/15/2025 8:30 AM EST Clinical Support [facility] MEDICINE [address] [place] [phone] April Murrell RN 07/01/2025 12:45 PM EST Office Visit [facility] ADULT DENTAL [address] [place] [phone] Eleni Shin [address] [place] [address] documented as of this encounter Visit Diagnoses Diagnosis Anxiety Anxiety state, unspecified Chronic neck pain Cervicalgia documented in this encounter Additional Health Concerns Assessment Noted Time PHQ-9 Depression Total Score: 13 024 9:15 AM EST documented as of this encounter Care Teams Dianeticist Relationship Specialty Start Date End Date Macie Link DO [address] [place] [address] PCP - General Family Medicine 05/30/18 Flor Clark PharmD [address] [place] [address] Pharmacist Internal Medicine 08/18/23 02/20/25 documented as of this encounter
--- OUTSIDE RECORDS SUMMARY | 2025-04-19 10:27 | XMS_ITS | Encounter Summary ---
Author Organization [employer] Address 75 [facility] 7t [place] [address] Care Team Providers Care Automation Clerk Name Role Phone Macie Link DO Primary Care Provider [phone]- [phone] Flor Clark PharmD Unavailable [phone] Reason for Visit * Reason Comments Med Refill Encounter Details Date Type Department Care Team (Late st Contact Info) Description 11/05/2023 Refill [facility] [address] [place] [address] Macie Link DO [address] [place] [address] Asthma, unspecified asthma severity, unspecified whether complicated, [...] 11:00 AM EST Clinical Support [facility] [address] [place] [address] 05/15/2025 8:30 AM EST Clinical Support [facility] [address] [place] [address] April Murrell RN 07/01/2025 12:45 PM EST Office Visit [facility] [address] [place] [address] Eleni Shin [address] [place] [address] documented as of this encounter Goals Goal Patient Goal Type Associated Problems Recent Progress Patient-Stated? Author Hemoglobin A1c < 7 Result Component 7.9( 3:31 PM EST) No Flor Clark, PharmD [...] documented as of this encounter Care Teams Automation Clerk Relationship Specialty Start Date End Date Macie Link DO [address] [place] [address] PCP - General Family Medicine 05/30/18 Flor Clark PharmD [address] [place] [address] Pharmacist Internal Medicine 08/18/23 02/20/25 documented as of this encounter
--- OUTSIDE RECORDS SUMMARY | 2025-04-19 10:27 | XMS_ITS | Encounter Summary ---
Author Organization [employer] Address 75 [facility] 7t [place] [address] Care Team Providers Care Life Skills Consultant Name Role Phone Macie Link DO Primary Care Provider +1- [phone] Flor Clark PharmD Unavailable [phone] Reason for Visit * Reason Comments Med Refill Encounter Details Date Type Department Care Team (Late st Contact Info) Description 12/17/2024 Refill [facility] MEDICINE [address] [place] [address] Macie Link DO [address] [place] [address] Chronic neck pain Social History Tobacco Use [...] Description 05/02/2025 11:00 AM EST Clinical Support [facility] MEDICINE [address] [place] [address] 05/15/2025 8:30 AM EST Clinical Support [facility] MEDICINE [address] [place] [address] April Murrell RN 07/01/2025 12:45 PM EST Office Visit [facility] ADULT DENTAL [address] [place] [address] Eleni Shin [address] [place] [address] documented as of this encounter Goals Goal [...] documented as of this encounter Care Teams Life Skills Consultant Relationship Specialty Start Date End Date Macie Link DO [address] [place] [address] PCP - General Family Medicine 05/30/18 Flor Clark PharmD [address] [place] [address] Pharmacist Internal Medicine 08/18/23 02/20/25 documented as of this encounter
--- OUTSIDE RECORDS SUMMARY | 2025-04-19 10:27 | XMS_ITS | Encounter Summary ---
Author Organization [employer] Address 75 [facility] 7t [place] [address] Care Team Providers Care Newspaper Inserter Name Role Phone FaribaCarissaMacie Primary Care Provider Flor Clark PharmD Unavailable [phone] Encounter Details Date Type Department Care Team ([facility] st Contact Info) Description 07/25/2024 Telephone [facility] ADULT DENTAL [address] [place] [address] Justin Anne, DMD [address] [place] [address] Social History Tobacco Use Types Packs/Day Years [...] Description 05/02/2025 11:00 AM EST Clinical Support [facility] MEDICINE [address] [place] [address] 05/15/2025 8:30 AM EST Clinical Support [facility] MEDICINE [address] [place] [address] April Murrell RN 07/01/2025 12:45 PM EST Office Visit [facility] ADULT DENTAL [address] [place] [address] Eleni Shin [address] [place] [address] documented as of this encounter Goals Goal [...] documented as of this encounter Care Teams Newspaper Inserter Relationship Specialty Start Date End Date Macie Link DO 230 [place] [address] PCP - General Family Medicine 05/30/18 Flor Clark PharmD 230 [place] [address] Pharmacist Internal Medicine 08/18/23 02/20/25 documented as of this encounter
--- OUTSIDE RECORDS SUMMARY | 2025-04-19 10:27 | XMS_ITS | Encounter Summary ---
Author Organization [employer] Address 75 [facility] 7t [place] [address] Care Team Providers Care Carton Marker Machine Name Role Phone ArcadioMacie smith DO Primary Care Provider [phone] [phone] Flor Clark PharmD Unavailable [phone] Reason for Visit * Reason Comments Med Refill Encounter Details Date Type Department Care Team (Late st Contact Info) Description 05/24/2024 Refill [facility] MEDICINE [address] [place] [address] Sobia Crooks MD [address] [place] [address] Chronic neck pain Social History Tobacco Use [...] 11:00 AM EST Clinical Support [facility] MEDICINE [address] [place] [address] 05/15/2025 8:30 AM EST Clinical Support [facility] MEDICINE [address] [place] [address] April Murrell RN 07/01/2025 12:45 PM EST Office Visit [facility] ADULT DENTAL [address] [place] [address] Eleni Shin [address] [place] [address] documented as of this encounter Goals Goal [...] as of this encounter Care Teams Carton Marker Machine Relationship Specialty Start Date End Date Macie Link DO [address] [place] [address] PCP - General Family Medicine 05/30/18 Flor Clark PharmD [address] [place] [address] Pharmacist Internal Medicine 08/18/23 02/20/25 documented as of this encounter
--- OUTSIDE RECORDS SUMMARY | 2025-04-19 10:27 | XMS_ITS | Encounter Summary ---
Author Organization [employer] Address 75 [facility] 7t [place] [address] Care Team Providers Care Orthodontic Assistant Name Role Phone Macie Link DO Primary Care Provider +1- [phone] Flor Clark PharmD Unavailable [phone] Reason for Visit * Reason Onset Date Comments Prior Authorization 08/17/2023 Encounter Details Date Type Department Care Team (Late st Contact Info) Description 08/17/[address] [facility] MEDICINE [address] [place] [address] Macie Link DO 230 [place] [address] Prior Authorization Social History Tobacco Use Types [...] 2.5-2.5 % cream To be sent to: [facility] - [place], [place] - [address] [place] [address] documented in this encounter Plan of Treatment Upcoming Encounters Date Type Department Care Team (Late st Contact Info) Description 05/02/2025 11:00 AM EST Clinical Support [facility] MEDICINE [address] [place] [address] 05/15/2025 8:30 AM EST Clinical Support [facility] MEDICINE [address] [place] [address] April Murrell RN 07/01/2025 12:45 PM EST Office Visit [facility] ADULT DENTAL [address] [place] [address] Eleni Shin 230 [place] [address] documented as of this encounter Goals Goal Patient Goal Type Associated Problems Recent Progress Patient-Stated? Author Hemoglobin A1c < 7 Result Component 7.9( 5 3:31 PM EST) No Flor Clark PharmD [...] documented as of this encounter Care Teams Orthodontic Assistant Relationship Specialty Start Date End Date Macie Link DO [address] [place] [address] PCP - General Family Medicine 05/30/18 Flor Clark, Jaspreet [address] [place] [address] Pharmacist Internal Medicine 08/18/23 02/20/25 documented as of this encounter
--- OUTSIDE RECORDS SUMMARY | 2025-04-19 10:27 | XMS_ITS | Encounter Summary ---
Author Organization [employer] Address 75 [facility] 7t [place] [address] Care Team Providers Care Manager Diesel Name Role Phone Macie Link DO Primary Care Provider Flor Clark PharmD Unavailable Reason for Visit * Reason Comments Med Refill Encounter Details Date Type Department Care Team (Late st Contact Info) Description 12/14/2024 Refill [facility] MEDICINE [address] [place] [address] Macie Link DO [address] [place] [address] Chronic neck pain Social History Tobacco Use [...] Description 05/02/2025 11:00 AM EST Clinical Support [facility] MEDICINE [address] [place] [address] 05/15/2025 8:30 AM EST Clinical Support [facility] MEDICINE [address] [place] [address] April Murrell RN 07/01/2025 12:45 PM EST Office Visit [facility] ADULT DENTAL [address] [place] [address] Eleni Shin [address] [place] [address] documented as of this encounter Goals Goal [...] documented as of this encounter Care Teams Manager Diesel Relationship Specialty Start Date End Date Macie Link DO [address] [place] [address] PCP - General Family Medicine 05/30/18 Flor Clark PharmD [address] [place] [address] Pharmacist Internal Medicine 08/18/23 02/20/25 documented as of this encounter
--- OUTSIDE RECORDS SUMMARY | 2025-04-19 10:27 | XMS_ITS | Encounter Summary ---
Author Organization [employer] Address 75 [facility] 7t [place] [address] Care Team Providers Care Consumer Lending Manager Name Role Phone Jane Linkfer Primary Care Provider [phone] Flor Clark PharmD Unavailable [phone] Encounter Details Date Type Department Care Team (Late st Contact Info) Description 09/09/2023 Orders Only [facility] MEDICINE [address] [place] [address] ProviderProsper MD Social History Tobacco Use Types [...] Clinical Support [facility] MEDICINE [address] [place] [address] 05/15/2025 8:30 AM EST Clinical Support [facility] MEDICINE [address] [place] [address] April Murrell RN 07/01/2025 12:45 PM EST Office Visit [facility] ADULT DENTAL [address] [place] [address] Eleni Shin [address] [place] [address] documented as of this encounter Goals Goal [...] documented as of this encounter Care Teams Consumer Lending Manager Relationship Specialty Start Date End Date Macie Link DO 230 [place] [address] PCP - General Family Medicine 05/30/18 Flor Clark PharmD [address] [place] [address] Pharmacist Internal Medicine 08/18/23 02/20/25 documented as of this encounter
--- OUTSIDE RECORDS SUMMARY | 2025-04-19 10:27 | XMS_ITS | Encounter Summary ---
Author Organization [employer] Address 75 [facility] 7t [place] [address] Care Team Providers Care Leadership Development Consultant Name Role Phone Macie Link DO Primary Care Provider [phone] Flor Clark PharmD Unavailable [phone] Reason for Visit * Reason Comments Med Refill Encounter Details Date Type Department Care Team (Late st Contact Info) Description 12/13/2024 Refill [facility] MEDICINE [address] [place] [address] Macie Link DO [address] [place] [address] Chronic neck pain Social History Tobacco Use [...] 11:00 AM EST Clinical Support [facility] MEDICINE [address] [place] [address] 05/15/2025 8:30 AM EST Clinical Support [facility] MEDICINE [address] [place] [address] April Murrell RN 07/01/2025 12:45 PM EST Office Visit [facility] ADULT DENTAL [address] [place] [address] Eleni Shin [address] [place] [address] documented as of this encounter Goals Goal [...] documented as of this encounter Care Teams Leadership Development Consultant Relationship Specialty Start Date End Date Macie Link DO [address] [place] [address] PCP - General Family Medicine 05/30/18 Flor Clark PharmD [address] [place] [address] Pharmacist Internal Medicine 08/18/23 02/20/25 documented as of this encounter
--- OUTSIDE RECORDS SUMMARY | 2025-04-19 10:27 | XMS_ITS | Encounter Summary ---
Author Organization [employer] Address 75 [facility] 7t [place] [address] Care Team Providers Care Drum Loader And Unloader Name Role Phone Macie Link DO Primary Care Provider [phone] Flor Clark PharmD Unavailable [phone] Reason for Visit * Reason Comments Med Refill Encounter Details Date Type Department Care Team (Late st Contact Info) Description 12/13/2023 Refill [facility] MEDICINE [address] [place] [address] Mcaie Link DO [address] [place] [address] Anxiety; Chronic neck pain Social History Tobacco [...] Description 05/02/2025 11:00 AM EST Clinical Support [facility] MEDICINE [address] [place] [phone] 05/15/2025 8:30 AM EST Clinical Support [facility] MEDICINE [address] [place] [address] April Murrell RN 07/01/2025 12:45 PM EST Office Visit [facility] ADULT DENTAL [address] [place] [address] Eleni Shin [address] [place] [address] documented as of this encounter Goals Goal [...] documented as of this encounter Care Teams Drum Loader And Unloader Relationship Specialty Start Date End Date Macie Link DO [address] [place] [address] PCP - General Family Medicine 05/30/18 Flor Clark PharmD [address] [place] [address] Pharmacist Internal Medicine 08/18/23 02/20/25 documented as of this encounter
--- OUTSIDE RECORDS SUMMARY | 2025-04-19 10:27 | XMS_ITS | Encounter Summary ---
Author Organization [facility], Address [address] [place] [address] Phone Care Team Providers Care Composition Floor Layer Name Role Phone Macie Link DO Primary Care Provider Unava ilable Encounter Details Date Type Department Care Team (Late st Contact Info) Description 10/19/2023 Documentation Only [facility], [address] [place] [address] Jimena Gibson [place] [address] [place] [address] Social History Tobacco Use Types [...] filedocumented in this encounter Care Teams Composition Floor Layer Relationship Specialty Start Date End Date Macie Link DO PCP - General 04/03/19 documented as of this encounter
--- OUTSIDE RECORDS SUMMARY | 2025-04-19 10:27 | XMS_ITS | Encounter Summary ---
Author Organization [employer] Address 75 [facility] 7t [place] [address] Care Team Providers Care Airplane Captain Name Role Phone Macie Link DO Primary Care Provider [phone] Flor Clark PharmD Unavailable [phone] Reason for Visit * Reason Comments Med Refill Encounter Details Date Type Department Care Team (Late st Contact Info) Description 06/03/2023 Refill [facility] MEDICINE [address] [place] [address] Macie Link DO [address] [place] [address] Anxiety Social History Tobacco Use Types Packs/Day [...] Description 05/02/2025 11:00 AM EST Clinical Support [facility] MEDICINE [address] [place] [address] 05/15/2025 8:30 AM EST Clinical Support [facility] MEDICINE [address] [place] [address] April Murrell RN 07/01/2025 12:45 PM EST Office Visit [facility] ADULT DENTAL [address] [place] [address] Eleni Shin [address] [place] [address] documented as of this encounter Visit Diagnoses Diagnosis Anxiety Anxiety state, unspecified documented in this encounter Additional Health Concerns Assessment Noted Time PHQ-9 Depression Total Score: 13 024 9:15 AM EST documented as of this encounter Care Teams Airplane Captain Relationship Specialty Start Date End Date Macie Link DO [address] [place] [address] PCP - General Family Medicine 05/30/18 Flor Clark PharmD [address] [place] [address] Pharmacist Internal Medicine 08/18/23 02/20/25 documented as of this encounter
--- OUTSIDE RECORDS SUMMARY | 2025-04-19 10:27 | XMS_ITS | Encounter Summary ---
Author Organization [facility] Address [address] [place] [address] Care Team Providers Care Principal Mechanical Engineer Name Role Phone Ref, Has No Pcp Or Primary Care Provider Unavail able Encounter Details Date Type Department Care Team (Late st Contact Info) Description 09/25/2024 Orders Only [facility] Interventional Radiology [address] [place] [address] Cami Garland PA [address] [place] [address] Social History Tobacco Use Types Packs/Day Years [...] Info) Description 04/23/2025 12:15 PM EST Appointment [facility] CT [address] [place], [place] [address] 05/09/2025 11:00 AM EST Follow-Up [facility] South 5th Floor [address] [place] [address] Pierce Au MD [address] [place], [place] [id number] 03/11/2026 9:40 AM EDT Follow-Up [facility] Renal Transplant [address] [place] [address] Louie Pablo MD [address] [place] [address] 03/11/2026 10:00 AM EDT Social Work [facility] Renal Transplant [address] [place] [address] Imani Livingston LICSW [address] [place] [address] documented as of this encounter Visit Diagnoses Not on filedocumented in this encounter Care Teams Principal Mechanical Engineer Relationship Specialty Start Date End Date Ref, Has No Pcp Or DO NOT EDIT THIS RECORD VIA PROVIDER ON THE FLY PCP - General Supervisor Tower 03/15/24 documented as of this encounter
--- OUTSIDE RECORDS SUMMARY | 2025-04-19 10:27 | XMS_ITS | Encounter Summary ---
Author Organization [employer] Address 75 [facility] 7t [place] [address] Care Team Providers Care Weigher Production Name Role Phone ArcadioMacei smith DO Primary Care Provider [phone] [phone] Flor Clark PharmD Unavailable [phone] Reason for Visit * Reason Comments Med Refill Encounter Details Date Type Department Care Team (Late st Contact Info) Description 06/25/[address] [facility] MEDICINE [address] [place] [address] Catherine Madera MD [address] [place], [place] [phone] Anxiety; Chronic neck pain Social History Tobacco [...] AM EST Clinical Support [facility] MEDICINE [address] [place] [address] 05/15/2025 8:30 AM EST Clinical Support [facility] MEDICINE [address] [place] [address] April Murrell RN 07/01/2025 12:45 PM EST Office Visit [facility] ADULT DENTAL [address] [place] [address] Eleni Shin [address] [place] [address] documented as of this encounter Goals Goal [...] documented as of this encounter Care Teams Weigher Production Relationship Specialty Start Date End Date Macie Link DO [address] [place] [address] PCP - General Family Medicine 05/30/18 Flor Clark PharmD [address] [place] [address] Pharmacist Internal Medicine 08/18/23 02/20/25 documented as of this encounter
--- OUTSIDE RECORDS SUMMARY | 2025-04-19 10:27 | XMS_ITS | Encounter Summary ---
Author Organization [employer] Address 75 [facility] 7t [place] [address] Care Team Providers Care Wind Turbine Engineer Name Role Phone FaribaMacie Primary Care Provider [phone] [phone] Flor Clark PharmD Unavailable [phone] Reason for Visit * Reason Onset Date Comments cx waiting period 12/07/2024 Encounter Details Date Type Department Care Team (Late st Contact Info) Description 12/07/2024 Telephone [facility] ADULT DENTAL [address] [place] [address] Justin Anne, SHAY [address] [place] [address] cx waiting period Social History Tobacco Use [...] Description 05/02/2025 11:00 AM EST Clinical Support [facility] MEDICINE [address] [place] [address] 05/15/2025 8:30 AM EST Clinical Support [facility] MEDICINE [address] [place] [address] April Murrell RN 07/01/2025 12:45 PM EST Office Visit [facility] ADULT DENTAL [address] [place] [address] Eleni Shin [address] [place] [address] documented as of this encounter Goals Goal [...] documented as of this encounter Care Teams Wind Turbine Engineer Relationship Specialty Start Date End Date Macie Link DO [address] [place] [address] PCP - General Family Medicine 05/30/18 Flor Clark PharmD [address] [place] [address] Pharmacist Internal Medicine 08/18/23 02/20/25 documented as of this encounter
--- OUTSIDE RECORDS SUMMARY | 2025-04-19 10:27 | XMS_ITS | Encounter Summary ---
Author Organization [employer] Address 75 [facility] 7t [place] [address] Care Team Providers Care Frame Changer Name Role Phone Macie Link DO Primary Care Provider [phone] Reason for Visit * Reason Onset Date Comments Med Refill 04/05/2025 Encounter Details Date Type Department Care Team ([facility] st Contact Info) Description 04/05/2025 Telephone [facility] MEDICINE [address] [place], [place] [phone] Macie Link DO [address] [place] [address] Med Refill Social History Tobacco Use Types [...] 10 MG tablet To be sent to: [facility] - [place], [place] - [address] [place] [address] documented in this encounter Plan of Treatment Upcoming Encounters Date Type Department Care Team (Late st Contact Info) Description 05/02/2025 11:00 AM EST Clinical Support [facility] MEDICINE [address] [place] [address] 05/15/2025 8:30 AM EST Clinical Support [facility] MEDICINE [address] [place] [address] April Murrell RN 07/01/2025 12:45 PM EST Office Visit [facility] ADULT DENTAL [address] [place] [address] Eleni Shin [address] [place] [address] documented as of this encounter Goals Goal [...] as of this encounter Care Teams Frame Changer Relationship Specialty Start Date End Date Macie Link DO [address] [place] [address] PCP - General Family Medicine 05/30/18 documented as of this encounter
--- OUTSIDE RECORDS SUMMARY | 2025-04-19 10:27 | XMS_ITS | Encounter Summary ---
Author Organization [facility] Address [address] [place] [address] Care Team Providers Care Business Communications Instructor Name Role Phone Ref, Has No Pcp Or Primary Care Provider Unavail able Encounter Details Date Type Department Care Team (Late st Contact Info) Description 09/27/2024 Orders Only [facility] Interventional Radiology [address] [place] [address] Cami Garland PA [address] [place] [address] Social History Tobacco Use Types Packs/Day Years [...] Info) Description 04/23/2025 12:15 PM EST Appointment [facility] [address] [place], [place] [phone] 05/09/2025 11:00 AM EST Follow-Up [facility] Building Cancer Clinic South 5th Floor [address] [place] [address] Pierce Au MD [address] [place], [place] [phone] 03/11/2026 9:40 AM EDT Follow-Up [facility] Renal Transplant [address] [place] [address] Louie Pablo MD [address] [place] [address] 03/11/2026 10:00 AM EDT Social Work [facility] Renal Transplant [address] [place] [address] Imani Livingston LICSW [address] [place] [address] documented as of this encounter Visit Diagnoses Not on filedocumented in this encounter Care Teams Business Communications Instructor Relationship Specialty Start Date End Date Ref, Has No Pcp Or DO NOT EDIT THIS RECORD VIA PROVIDER ON THE FLY PCP - General Under Water Assistant 03/15/24 documented as of this encounter
--- OUTSIDE RECORDS SUMMARY | 2025-04-19 10:27 | XMS_ITS | Encounter Summary ---
Author Organization [facility], Address [address] [place] [address] Phone Care Team Providers Care Unemployment Examiner Name Role Phone Macie Link DO Primary Care Provider Unava ilable Encounter Details Date Type Department Care Team (Late st Contact Info) Description 03/16/2024 Documentation Only [facility], [address] [place] [address] [place] [address] Social History Tobacco Use Types [...] on filedocumented in this encounter Care Teams Unemployment Examiner Relationship Specialty Start Date End Date Macie Link DO PCP - General 04/03/19 documented as of this encounter
--- OUTSIDE RECORDS SUMMARY | 2025-04-19 10:27 | XMS_ITS ---
Author Organization [facility] Address [address] [place] [address] Care Team Providers Care Jackscrew Worker Name Role Phone Ref, Has No Pcp Or Primary Care Provider Unavail able Transplant Episode Kidney Candidate [facility] ([place], [place]) - REPLACED BY [facility] Evaluation began on 03/15/2024 Marked as Active on 03/15/2024 Kidney CoordinatorLynda Diaz RN Fax: N/A Email: N/A Scores Score Value Updated Exceptions/Reas ons CPRA Not available EPTS (Calc) 90 04/19/2025 [facility] Organ Diagnosis Organ Primary Contributory Kidney Diabetes Mellitus - Type II Care Team Name Role Phone Fax Email Lynda Diaz RN Kidney Coordinator [phone] N/A N/A Anastacio Nickerson MD Referring Physician [phone] N/A Events Pre-Transplant Referred: 12/21/2023 Evaluation began: 03/15/2024 Appointments (03/19/2025 - 05/19/2025) When With Visit Type Description 03/19/2025 Transplant - Nick Livingston Follow U p 03/19/2025 Transplant - Ramos Pablo Follow Up Pre -transplant evaluation for kidney transplant (Primary Dx); ESRD (end stage renal disease) Dialysis History Dialysis History Start End Type Comments Center 12/17/2021 In-center Hemodialysis [facility] Dialysis Center Information Center Phone Fax Address [facility] [phone] [address] [facility] [id number] [facility] [address]
--- OUTSIDE RECORDS SUMMARY | 2025-04-19 10:27 | XMS_ITS | Encounter Summary ---
Author Organization [employer] Address 75 [facility] 7t [place] [address] Care Team Providers Care Business Solutions Analyst Name Role Phone ArcadioMacie smith DO Primary Care Provider [phone] Flor Clark PharmD Unavailable [phone] Reason for Visit * Reason Comments Med Refill Encounter Details Date Type Department Care Team (Late st Contact Info) Description 07/26/2023 Refill [facility] [address] [place] [address] Catherine Madera MD 230 [place] [address] Anxiety; Chronic neck pain Social History Tobacco [...] Description 05/02/2025 11:00 AM EST Clinical Support [facility] [address] [place] [address] 05/15/2025 8:30 AM EST Clinical Support [facility] [address] [place] [address] April Murrell RN 07/01/2025 12:45 PM EST Office Visit [facility] ADULT DENTAL [address] [place] [address] Eleni Shin [address] [place] [address] documented as of this encounter Visit Diagnoses Diagnosis Anxiety Anxiety state, unspecified Chronic neck pain Cervicalgia documented in this encounter Additional Health Concerns Assessment Noted Time PHQ-9 Depression Total Score: 13 024 9:15 AM EST documented as of this encounter Care Teams Business Solutions Analyst Relationship Specialty Start Date End Date Macie Link DO [address] [place] [address] PCP - General Family Medicine 05/30/18 Flor Clark PharmD [address] [place] [address] Pharmacist Internal Medicine 08/18/23 02/20/25 documented as of this encounter
--- OUTSIDE RECORDS SUMMARY | 2025-04-19 10:27 | XMS_ITS | Encounter Summary ---
Author Organization [employer] Address 75 [facility] 7t [place] [address] Care Team Providers Care Maxillofacial Prosthodontist Name Role Phone Macie Link DO Primary Care Provider [phone] Flor Clark PharmD Unavailable Encounter Details Date Type Department Care Team ([facility] st Contact Info) Description 06/14/2023 Telephone [facility] [address] [place], [place] [phone] Macie Link DO 230 [place] [address] Social History Tobacco Use Types Packs/Day Years [...] Description 05/02/2025 11:00 AM EST Clinical Support [address] [address] 05/15/2025 8:30 AM EST Clinical Support [facility] [address] [place] [address] April Murrell, PADILLA 07/01/2025 12:45 PM EST Office Visit [facility] ADULT DENTAL [address] [place] [address] Eleni Shin [address] [place] [address] documented as of this encounter Visit Diagnoses Not on filedocumented in this encounter Additional Health Concerns Assessment Noted Time PHQ-9 Depression Total Score: 13 024 9:15 AM EST documented as of this encounter Care Teams Maxillofacial Prosthodontist Relationship Specialty Start Date End Date Macie Link DO [address] [place] [address] PCP - General Family Medicine 05/30/18 Flor Clark PharmD [address] [place] [address] Pharmacist Internal Medicine 08/18/23 02/20/25 documented as of this encounter
--- OUTSIDE RECORDS SUMMARY | 2025-04-19 10:28 | XMS_ITS | Encounter Summary ---
Author Organization [employer] Address 75 [facility] 7t [place] [address] Care Team Providers Care A/C Tech Name Role Phone Macie Link DO Primary Care Provider [phone] Flor Clark PharmD Unavailable [phone] Reason for Visit * Reason Comments Med Refill Encounter Details Date Type Department Care Team (Late st Contact Info) Description 03/11/2023 Refill [facility] [address] [place] [address] Macie Link DO 230 [place] [address] Chronic neck pain; Anxiety Social History Tobacco [...] Description 05/02/2025 11:00 AM EST Clinical Support [facility] [address] [place] [address] 05/15/2025 8:30 AM EST Clinical Support [facility] [address] [place] [address] April Murrell, PADILLA 07/01/2025 12:45 PM EST Office Visit [facility] ADULT DENTAL [address] [place] [address] Eleni Shin [address] [place] [address] documented as of this encounter Visit Diagnoses Diagnosis Chronic neck pain Cervicalgia Anxiety Anxiety state, unspecified documented in this encounter Additional Health Concerns Assessment Noted Time PHQ-9 Depression Total Score: 2 07/06/19 23 9:23 AM EST documented as of this encounter Care Teams A/C Tech Relationship Specialty Start Date End Date Macie Link DO [address] [place] [address] PCP - General Family Medicine 05/30/18 Flor Clark PharmD [address] [place] [address] Pharmacist Internal Medicine 08/18/23 02/20/25 documented as of this encounter
--- OUTSIDE RECORDS SUMMARY | 2025-04-19 10:28 | XMS_ITS | Encounter Summary ---
Author Organization [employer] Address 75 [facility] 7t [place] [address] Care Team Providers Care Recreational Therapist Name Role Phone Macie Link DO Primary Care Provider [phone] Flor Clark PharmD Unavailable [phone] Reason for Visit * Reason Comments Med Refill Encounter Details Date Type Department Care Team (Late st Contact Info) Description 03/08/2023 Refill [facility] [address] [place] [address] Macie Link DO [address] [place] [address] Anxiety; Chronic neck pain Social History Tobacco [...] 05/02/2025 11:00 AM EST Clinical Support [facility] [address] [place] [address] 05/15/2025 8:30 AM EST Clinical Support [facility] [address] [place] [address] April Murrell, PADILLA 07/01/2025 12:45 PM EST Office Visit [facility] ADULT DENTAL [address] [place] [address] Eleni Shin [address] [place] [address] documented as of this encounter Visit Diagnoses Diagnosis Anxiety Anxiety state, unspecified Chronic neck pain Cervicalgia documented in this encounter Additional Health Concerns Assessment Noted Time PHQ-9 Depression Total Score: 2 07/06/19 23 9:23 AM EST documented as of this encounter Care Teams Recreational Therapist Relationship Specialty Start Date End Date Macie Link DO [address] [place] [address] PCP - General Family Medicine 05/30/18 Flor Clark PharmD [address] [place] [address] Pharmacist Internal Medicine 08/18/23 02/20/25 documented as of this encounter
--- OUTSIDE RECORDS SUMMARY | 2025-04-19 10:28 | XMS_ITS | Encounter Summary ---
Author Organization [employer] [facility] Address [address] [place] [address] 7t [place] [address] Care Team Providers Care Putty And Patch Worker Name Role Phone Macie Link DO Primary Care Provider [phone] Flor Clark PharmD Unavailable [phone] Reason for Visit * Reason Comments Med Refill Encounter Details Date Type Department Care Team (Late st Contact Info) Description 01/13/2023 Refill [facility] [address] [place] [address] Macie Link DO [address] [place] [address] Chronic neck pain Social History Tobacco Use [...] Description 05/02/2025 11:00 AM EST Clinical Support [facility] [address] [place] [address] 05/15/2025 8:30 AM EST Clinical Support [facility] [address] [place] [address] April Murrell RN 07/01/2025 12:45 PM EST Office Visit [facility] ADULT DENTAL [address] [place] [address] Fitz Shinaris [address] [place] [address] documented as of this encounter Visit Diagnoses Diagnosis Chronic neck pain Cervicalgia documented in this encounter Additional Health Concerns Assessment Noted Time PHQ-9 Depression Total Score: 2 07/06/19 23 9:23 AM EST documented as of this encounter Care Teams Putty And Patch Worker Relationship Specialty Start Date End Date Macie Link DO [address] [place] [address] PCP - General Family Medicine 05/30/18 Flor Clark PharmD [address] [place] [address] Pharmacist Internal Medicine 08/18/23 02/20/25 documented as of this encounter
--- OUTSIDE RECORDS SUMMARY | 2025-04-19 10:28 | XMS_ITS | Encounter Summary ---
Author Organization [employer] Address 75 [facility] 7t [place] [address] Care Team Providers Care Tank Processor Name Role Phone Macie Link DO Primary Care Provider [phone] Flor Clark PharmD Unavailable [phone] Reason for Visit * Reason Comments Med Refill Encounter Details Date Type Department Care Team (Late st Contact Info) Description 08/22/2023 Refill [facility]INE [address] [place] [address] Macie Link DO [address] [place], [place] [phone] Chronic neck pain; Anxiety Social History Tobacco [...] Clinical Support [facility]INE [address] [place] [address] 05/15/2025 8:30 AM EST Clinical Support [facility] MED[facility]INE [address] [place] [address] April Murrell RN 07/01/2025 12:45 PM EST Office Visit [facility] ADULT DENTAL [address] [place] [address] Eleni Shin [address] [place] [address] documented as of this encounter Goals Goal [...] documented as of this encounter Care Teams Tank Processor Relationship Specialty Start Date End Date Macie Link DO [address] [place] [address] PCP - General Family Medicine 05/30/18 Flor Clark PharmD [address] [place] [address] Pharmacist Internal Medicine 08/18/23 02/20/25 documented as of this encounter
--- OUTSIDE RECORDS SUMMARY | 2025-04-19 10:28 | XMS_ITS | Encounter Summary ---
Author Organization [employer] [facility] Address [address] [place] [address] 7t [place] [address] Care Team Providers Care Project Development Engineer Name Role Phone Macie Link DO Primary Care Provider Flor Clark PharmD Unavailable Reason for Visit * Reason Comments Med Refill Encounter Details Date Type Department Care Team (Late st Contact Info) Description 12/31/2022 Refill [facility] [address] [place] [address] Macie Link DO 230 [place] [address] Anxiety Social History Tobacco Use Types Packs/Day [...] AM EST Clinical Support [facility] [address] [place] [address] 05/15/2025 8:30 AM EST Clinical Support [facility] [address] [place] [address] April Murrell RN 07/01/2025 12:45 PM EST Office Visit [facility] ADULT DENTAL [address] [place] [address] Fitz Shinaris [address] [place] [address] documented as of this encounter Visit Diagnoses Diagnosis Anxiety Anxiety state, unspecified documented in this encounter Additional Health Concerns Assessment Noted Time PHQ-9 Depression Total Score: 2 07/06/19 23 9:23 AM EST documented as of this encounter Care Teams Project Development Engineer Relationship Specialty Start Date End Date Macie Link DO [address] [place] [address] PCP - General Family Medicine 05/30/18 Flor Clark PharmD [address] [place] [address] Pharmacist Internal Medicine 08/18/23 02/20/25 documented as of this encounter
--- OUTSIDE RECORDS SUMMARY | 2025-04-19 10:28 | XMS_ITS | Encounter Summary ---
Author Organization [employer] [facility] Address [address] [place] [address] 7t [place] [address] Care Team Providers Care Electrical Appliance Mechanic Name Role Phone Macie Link DO Primary Care Provider Flor Clark PharmD Unavailable Reason for Visit * Reason Comments Med Refill Encounter Details Date Type Department Care Team (Late st Contact Info) Description 01/13/2023 Refill [facility] MED[facility]INE [address] [place] [address] Macie Link DO 230 [place] [address] Chronic neck pain Social History Tobacco Use [...] Description 05/02/2025 11:00 AM EST Clinical Support [facility]INE [address] [place] [address] 05/15/2025 8:30 AM EST Clinical Support [facility] [address] [place] [address] April Murrell RN 07/01/2025 12:45 PM EST Office Visit [facility] ADULT DENTAL [address] [place] [address] Fitz Shinaris [address] [place] [address] documented as of this encounter Visit Diagnoses Diagnosis Chronic neck pain Cervicalgia documented in this encounter Additional Health Concerns Assessment Noted Time PHQ-9 Depression Total Score: 2 07/06/19 23 9:23 AM EST documented as of this encounter Care Teams Electrical Appliance Mechanic Relationship Specialty Start Date End Date Macie Link DO [address] [place] [address] PCP - General Family Medicine 05/30/18 Flor Clark PharmD [address] [place] [address] Pharmacist Internal Medicine 08/18/23 02/20/25 documented as of this encounter
--- OUTSIDE RECORDS SUMMARY | 2025-04-19 10:28 | XMS_ITS | Encounter Summary ---
Author Organization [employer] Address 75 [facility] 7t [place] [address] Care Team Providers Care Curator Zoological Museum Name Role Phone Macie Link DO Primary Care Provider Flor Clark PharmD Unavailable [phone] Reason for Visit * Reason Onset Date Comments Appointment Request 01/30/2025 Encounter Details Date Type Department Care Team ([facility] st Contact Info) Description 01/30/[address] [facility] MEDICINE [address] [place] [address] Macie Link DO [address] [place] [address] Appointment Request Social History Tobacco Use Types [...] AM EST Clinical Support [facility] MEDICINE [address] [place] [address] 05/15/2025 8:30 AM EST Clinical Support [facility] MED[facility]INE [address] [place] [address] April Murrell, PADILLA 07/01/2025 12:45 PM EST Office Visit [facility] ADULT DENTAL [address] [place] [address] Eleni Shin [address] [place] [address] documented as of this encounter Goals Goal [...] documented as of this encounter Care Teams Curator Zoological Museum Relationship Specialty Start Date End Date Macie Link DO [address] [place] [address] PCP - General Family Medicine 05/30/18 Flor Clark PharmD [address] [place] [address] Pharmacist Internal Medicine 08/18/23 02/20/25 documented as of this encounter
--- OUTSIDE RECORDS SUMMARY | 2025-04-19 10:28 | XMS_ITS | Encounter Summary ---
Author Organization [facility], Address [address] [place] [address] Phone Care Team Providers Care Teletypist Name Role Phone Macie Link DO Primary Care Provider Unava ilable Encounter Details Date Type Department Care Team (Late st Contact Info) Description 11/27/2021 Documentation Only [facility], [address] [place] [address] Romario Ford MD [address] [place] [phone] Social History Tobacco Use Types Packs/Day Years [...] on filedocumented in this encounter Care Teams Teletypist Relationship Specialty Start Date End Date Macie Link DO PCP - General 04/03/19 documented as of this encounter
--- OUTSIDE RECORDS SUMMARY | 2025-04-19 10:28 | XMS_ITS | Encounter Summary ---
Author Organization [facility], Address [address] [place] [address] Phone Care Team Providers Care Uniform Attendant Name Role Phone Macie Link DO Primary Care Provider Unava ilable Encounter Details Date Type Department Care Team (Late st Contact Info) Description 12/09/2021 Documentation Only [facility], [address] [place] [address] Romario Ford MD [address] [place] [phone] Social History Tobacco Use Types Packs/Day Years [...] on filedocumented in this encounter Care Teams Uniform Attendant Relationship Specialty Start Date End Date Macie Link DO PCP - General 04/03/19 documented as of this encounter
--- OUTSIDE RECORDS SUMMARY | 2025-04-19 10:28 | XMS_ITS | Encounter Summary ---
Author Organization [employer] Address 75 [facility] 7t [place] [address] Care Team Providers Care Heel Room Supervisor Name Role Phone Macie Link DO Primary Care Provider [phone] Flor Clark PharmD Unavailable [phone] Reason for Visit * Reason Comments Med Refill Encounter Details Date Type Department Care Team (Late st Contact Info) Description 03/14/2023 Refill [facility] MED[facility]INE [address] [place] [address] Macie Link DO [address] [place] [address] Anxiety; Chronic neck pain Social History Tobacco [...] Description 05/02/2025 11:00 AM EST Clinical Support [facility] MEDICINE [address] [place] [address] 05/15/2025 8:30 AM EST Clinical Support [facility] MEDICINE [address] [place] [address] April Murrell, PADILLA 07/01/2025 12:45 PM EST Office Visit [facility] ADULT DENTAL [address] [place] [address] Eleni Shin [address] [place] [address] documented as of this encounter Visit Diagnoses Diagnosis Anxiety Anxiety state, unspecified Chronic neck pain Cervicalgia documented in this encounter Additional Health Concerns Assessment Noted Time PHQ-9 Depression Total Score: 2 07/06/19 23 9:23 AM EST documented as of this encounter Care Teams Heel Room Supervisor Relationship Specialty Start Date End Date Macie Link DO [address] [place] [address] PCP - General Family Medicine 05/30/18 Flor Clark PharmD [address] [place] [address] Pharmacist Internal Medicine 08/18/23 02/20/25 documented as of this encounter
--- OUTSIDE RECORDS SUMMARY | 2025-04-19 10:28 | XMS_ITS | Encounter Summary ---
Author Organization [facility] Address [address] [place] [address] Care Team Providers Care Linoleum Layer Name Role Phone Ref, Has No Pcp Or Primary Care Provider Unavail able Encounter Details Date Type Department Care Team (Late st Contact Info) Description 01/25/2025 Orders Only [facility] Interventional Radiology [address] [place] [address] Sharan Alcazar MD [address] [facility] [place] [address] Social History Tobacco Use Types Packs/Day Years [...] Info) Description 04/23/2025 12:15 PM EST Appointment [facility] [address], [place] [phone] 05/09/2025 11:00 AM EST Follow-Up [facility] 5th Floor [address], [place] [phone] Pierce Au MD [address] [place], [place] [phone] 03/11/2026 9:40 AM EDT Follow-Up [facility] Renal Transplant [address] [place] [address] Louie Pablo MD [address] [place] [address] 03/11/2026 10:00 AM EDT Social Work [facility] Transplant [address] [place] [address] Imani Livingston LICSW [address] [place] [address] documented as of this encounter Visit Diagnoses Not on filedocumented in this encounter Care Teams Linoleum Layer Relationship Specialty Start Date End Date Ref, Has No Pcp Or DO NOT EDIT THIS RECORD VIA PROVIDER ON THE FLY PCP - General Hotel Staff Member 03/15/24 documented as of this encounter
--- OUTSIDE RECORDS SUMMARY | 2025-04-19 10:28 | XMS_ITS | Encounter Summary ---
Author Organization [employer] Address 75 [facility] 7t [place] [address] Care Team Providers Care Speech And Hearing Clinic Director Name Role Phone Macie Link DO Primary Care Provider [phone] Flor Clark PharmD Unavailable [phone] Reason for Visit * Reason Comments Med Refill Encounter Details Date Type Department Care Team ([facility] st Contact Info) Description 01/23/2025 Refill [facility] MEDICINE [address] [place] [address] Macie Link DO [address] [place] [address] Chronic GERD Social History Tobacco Use Types [...] Description 05/02/2025 11:00 AM EST Clinical Support [facility] MEDICINE [address] [place] [address] 05/15/2025 8:30 AM EST Clinical Support [facility] MEDICINE [address] [place] [address] April Murrell RN 07/01/2025 12:45 PM EST Office Visit [facility] ADULT DENTAL [address] [place] [address] Eleni Shin [address] [place] [address] documented as of this encounter Goals Goal [...] documented as of this encounter Care Teams Speech And Hearing Clinic Director Relationship Specialty Start Date End Date Macie Link DO [address] [place] [address] PCP - General Family Medicine 05/30/18 Flor Clark PharmD [address] [place] [address] Pharmacist Internal Medicine 08/18/23 02/20/25 documented as of this encounter
== END 2025-04-19 09:46 | disposition home or self-care (01) ==
LOC: HO.HHCX 09:45
PROVIDERS: Visit Provider Family Medicine
DX: M25.551 Pain in right hip (principal); M79.604 Pain in right leg; M54.50 Low back pain, unspecified
CPT/HCPCS: 72100; 73502; 73552

== ENCOUNTER → 2025-04-19 09:46 | Outpatient (BNV) | payer OTHER, SELFPAY | PROVIDERS: Visit Provider Radiology Diagnostic Radiology | DX: M47.816 Spondylosis without myelopathy or radiculopathy, lumbar region (principal); I70.90 Unspecified atherosclerosis; M25.551 Pain in right hip; M79.651 Pain in right thigh | CPT/HCPCS: 72100; 73502; 73552 ==